=== PATIENT | female | born 1960 | race Caucasian/White ===

== ENCOUNTER 2022-11-13 10:59 | Outpatient (CLI) | payer OTHER, SELFPAY ==
[2022-11-13 13:46] LABS: Basophils Absolute Auto 0.1 K/mm3 (0.0-0.1); Basophils Percent Auto 0.6 % (0.2-1.2); Eosinophils Absolute Auto 0.2 K/mm3 (0-0.3); Eosinophils Percent Auto 2.4 % (0-4.4); Hematocrit 35.5 % (37.0-47.0); Hemoglobin 11.1 g/dL (12.0-15.0); Immature Granulocyte Absolute 0.03 K/mm3 (0.00-0.031); Immature Granulocyte Percent A 0.3 % (0-0.5); Lymphocytes Absolute Auto 1.37 K/mm3 (0.9-3.2); Lymphocytes Percent Auto 15.1 % (18.3-44.2); Mean Corpuscular HGB Conc 31.3 g/dl (32-36); Mean Corpuscular Hemoglobin 26.6 pg (26-34); Mean Corpuscular Volume 85.1 fl (80-100); Mean Platelet Volume 8.4 fl (7.4-10.4); Monocytes Absolute Auto 0.6 K/mm3 (0.1-0.6); Monocytes Percent Auto 7.1 % (2.6-8.5); Neutrophils Absolute Auto 6.8 K/mm3 (1.3-6.7); Neutrophils Percent Auto 74.5 % (45.5-73.1); Platelet Count Result 315 k/mm3 (150-375); Red Blood Count 4.17 M/mm3 (4.2-5.4); Red Cell Distribution Width 13.8 % (11.5-14.5); White Blood Count 9.1 K/mm3 (4.5-10.0)
[2022-11-13 14:02] LABS: Alanine Aminotransferase 31 U/L (6-35); Albumin Level 4.3 g/dL (3.5-5.1); Alkaline Phosphatase 53 U/L (38-126); Anion Gap 6 mmol/L (8-16); Aspartate Amino Transferase 39 U/L (14-36); Bilirubin,Total 0.6 mg/dL (0.2-1.3); Blood Urea Nitrogen 29 mg/dL (7-17); Calcium 9.3 mg/dL (8.4-10.2); Carbon Dioxide 28 mmol/L (22-30); Chloride 103 mmol/L (98-107); Estimated Glomerular Filt Rate > 60; Glucose 84 mg/dL (65-110); Potassium 4.4 mmol/L (3.4-5.0); Sodium 137 mmol/L (137-145)
[2022-11-13 14:18] LABS: Vitamin D 25 Hydroxy 51.1 ng/mL
[2022-11-13 14:24] LABS: Thyroid Stimulating Hormone 0.154 uIU/mL (0.465-4.680)
[2022-11-13 14:45] LABS: Iron 49 ug/dL (37-170)
[2022-11-13 14:54] LABS: Percent Iron Saturation 11 % (20-50)
[2022-11-13 15:22] LABS: Ferritin 9.73 ng/mL (11.1-264)
[2022-11-13 15:53] LABS: Folic Acid 5.7 ng/mL (2.76->20)
== END 2022-11-13 11:00 | disposition home or self-care (01) ==
LOC: ANHGOSHLAB 11:00
PROVIDERS: PCP Internal Medicine; Visit Provider Clinical Nurse Specialist
DX: E55.9 Vitamin D deficiency, unspecified (principal); Z13.228 Encounter for screening for other metabolic disorders; F41.9 Anxiety disorder, unspecified; D64.9 Anemia, unspecified; R79.89 Other specified abnormal findings of blood chemistry
CPT/HCPCS: 36415; 80053; 82306; 82607; 82728; 82746; 83540; 83550; 84443; 85025

== ENCOUNTER → 2022-11-13 11:14 | Outpatient (CLI) | payer OTHER, SELFPAY ==
--- NOTE | ~2022-11-13 | XR_ITS ---
EXAMINATION: XR_CERV2-3V_CR DATE: 11/13/2022 11:26 INDICATION: Neck pain. Left arm tingling. TECHNIQUE: 3 views of cervical spine were obtained. COMPARISON: None. FINDINGS: There is 6 degrees levocurvature of cervical spine. There is 2 mm retrolisthesis of C5 on C 6. Vertebral body heights are normal. There is moderately decreased disc height at C5-C6. At C5-C6, t here is severe bilateral uncovertebral joint osteoarthritis. There is multilevel mild facet joint ost eoarthritis. There is mild central canal stenosis at C5-C6. No prevertebral soft tissue swelling. IMPRESSION: 1. Moderate spondylosis at C5-C6 and mild spondylosis at other levels. Reviewed, dictated and finalized at location A.
== END ==
PROVIDERS: PCP Internal Medicine; Visit Provider Clinical Nurse Specialist
DX: R20.2 Paresthesia of skin (principal); M47.892 Other spondylosis, cervical region
CPT/HCPCS: 72040

== ENCOUNTER 2022-11-15 15:15 | Outpatient (CLI) | payer OTHER, SELFPAY ==
[2022-11-15 20:13] LABS: Free T4 Free Thyroxine 1.09 ng/mL (0.78-2.19)
[2022-11-15 20:33] LABS: Thyroid Stimulating Hormone < 0.015 uIU/mL (0.465-4.680)
== END 2022-11-15 15:16 | disposition home or self-care (01) ==
LOC: ANHGOSHLAB 15:16
PROVIDERS: PCP Internal Medicine; Visit Provider Clinical Nurse Specialist
DX: R79.89 Other specified abnormal findings of blood chemistry (principal); D64.9 Anemia, unspecified; Z13.228 Encounter for screening for other metabolic disorders
CPT/HCPCS: 36415; 84439; 84443

== ENCOUNTER 2023-01-09 14:13 | Outpatient (CLI) | payer OTHER, MEDICAID, SELFPAY ==
--- NOTE | ~2023-01-09 | XR_ITS ---
EXAMINATION: XR finger 2nd RT min 2V INDICATION: Right second finger pain, injury two months ago TECHNIQUE: Four views of the right second finger are obtained. COMPARISON: None available FINDINGS: There is an oblique intra-articular fracture at the lateral base of the second distal phala nx. The fracture involves approximately 50% of the articular surface on the PA view and spans the ent jose juan width of the bone on the lateral view. Soft tissue swelling surrounds the fracture. There is mild osteoarthritis of the interphalangeal joints. No additional fracture is identified. IMPRESSION: 1. Oblique intra-articular fracture at the lateral base of the second distal phalanx. Given reported history of injury two months ago and nonunion of the fracture, orthopedic evaluation is recommended. Reviewed, dictated and finalized at location L. IMPRESSION: 1. Oblique intra-articular fracture at the lateral base of the second distal ph alanx. Given reported history of injury two months ago and nonunion of the frac ture, orthopedic evaluation is recommended.
== END 2023-01-09 14:14 | disposition home or self-care (01) ==
LOC: ANHIMG 14:14
PROVIDERS: PCP Internal Medicine; Visit Provider Internal Medicine
DX: S62.630A Displaced fracture of distal phalanx of right index finger, initial encounter for closed fracture (principal); X58.XXXA Exposure to other specified factors, initial encounter
CPT/HCPCS: 73140

== ENCOUNTER 2023-01-29 13:58 | Outpatient (CLI) | payer OTHER, SELFPAY ==
[2023-01-29 20:17] LABS: Free T4 Free Thyroxine 0.98 ng/mL (0.78-2.19)
[2023-02-01 14:23] LABS: Thyroid Stimulating Immunoglob <89 % baseline (<140)
[2023-02-01 15:43] LABS: Thyrotropin Receptor Antibody <1.00 IU/L (<=2.00)
[2023-02-02 06:41] LABS: Thyroid Peroxidase Antibodies <1 IU/mL (<9)
== END 2023-01-29 13:59 | disposition home or self-care (01) ==
LOC: ANHGOSHLAB 13:59
PROVIDERS: PCP Internal Medicine; Visit Provider Internal Medicine
DX: R94.6 Abnormal results of thyroid function studies (principal)
CPT/HCPCS: 36415; 83519; 84439; 84443; 84445; 86376

== ENCOUNTER 2023-02-06 13:35 | Outpatient (CLI) | payer OTHER, SELFPAY ==
[2023-02-06 19:17] LABS: Basophils Absolute Auto 0.1 K/mm3 (0.0-0.1); Basophils Percent Auto 0.6 % (0.2-1.2); Eosinophils Absolute Auto 0.4 K/mm3 (0-0.3); Eosinophils Percent Auto 5.2 % (0-4.4); Hematocrit 36.4 % (37.0-47.0); Hemoglobin 11.2 g/dL (12.0-15.0); Immature Granulocyte Absolute 0.03 K/mm3 (0.00-0.031); Immature Granulocyte Percent A 0.4 % (0-0.5); Immature Reticulocyte Fraction 24.1 % (3.0-15.9); Lymphocytes Absolute Auto 1.26 K/mm3 (0.9-3.2); Lymphocytes Percent Auto 15.2 % (18.3-44.2); Mean Corpuscular HGB Conc 30.8 g/dl (32-36); Mean Corpuscular Hemoglobin 26.7 pg (26-34); Mean Corpuscular Volume 86.9 fl (80-100); Mean Platelet Volume 8.4 fl (7.4-10.4); Monocytes Absolute Auto 0.3 K/mm3 (0.1-0.6); Neutrophils Absolute Auto 6.2 K/mm3 (1.3-6.7); Neutrophils Percent Auto 74.6 % (45.5-73.1); Platelet Count Result 301 k/mm3 (150-375); Red Blood Count 4.19 M/mm3 (4.2-5.4); Red Cell Distribution Width 15.1 % (11.5-14.5); Reticulocyte Percent 3.36 % (0.7-4.3); Reticulocytes Absolute 0.14 M/mm3 (0.02-0.1); White Blood Count 8.3 K/mm3 (4.5-10.0)
[2023-02-07 00:50] LABS: Iron 48 ug/dL (37-170)
[2023-02-07 01:12] LABS: Percent Iron Saturation 11 % (20-50)
== END 2023-02-06 13:36 | disposition home or self-care (01) ==
LOC: ANHGOSHLAB 13:37
PROVIDERS: PCP Internal Medicine; Visit Provider Nurse Practitioner
DX: D64.9 Anemia, unspecified (principal)
CPT/HCPCS: 36415; 82728; 83540; 83550; 85025; 85046

== ENCOUNTER 2023-04-12 07:24 | Outpatient (CLI) | payer OTHER, MEDICAID, SELFPAY ==
--- NOTE | 2023-04-12 07:42 | ECHO_ITS ---
Patient Info Name: Leyla Vega Age: 62 years : 1960 Gender: Female Ht: 63 in Wt: 290 lbs BSA: 2.50 m2 HR: 79 bpm BP: 154 / 82 mmHg Technical Quality: Fair Exam Date: 04/12/2023 7:50 AM Exam Location: [facility] Patient Status: Outpatient Admit Date: 04/12/2023 Staff Ordering Physician: Justin Herron DO Meter Technician: Kerline De aL Garza RDCS Attending Provider: Justin Herron DO Referring Physician: Gopal BURRIS; Exam Type: CA echo dop color flow w con Study Info Indications I35.0 - Nonrheumatic aortic (valve) stenosis Complete two-dimensional, color flow and Doppler transthoracic echocardiogram is performed with contrast to opacify the left ventricle and to improve the deliniation of the left ventricle endocardial borders. Contrast/Agitated Saline Contrast/Ag. Saline: Definity Amount: 2.00 ml Administered By: Kerline De La Garza RDCS New IV Access: Outer Forearm and Left Site Condition: IV removed, Site dressing applied and No extravasation Summary 1. Definity contrast administered improved wall motion interpretation. 2. Left ventricular chamber dimension is normal. 3. Left ventricular systolic function is hyperdynamic, estimated at >70%. 4. The left ventricular diastolic function is abnormal. 5. E/e' 31 is significantly elevated. 6. Left atrial chamber dimension is mildly enlarged. 7. There is severe aortic valve sclerosis. 8. There is mild aortic valve regurgitation. 9. There is moderate aortic valve stenosis with a peak velocity of 415.98 cm/s, mean gradient of 45 mmHg, and aortic valve area of 1.23 cm2. 10. The mitral valve has moderately calcified leaflets and severely calcified annulus. 11. There is mild mitral valve stenosis with valve area of 1.6 cm2 and mean gradient of 6 mmHg. 12. There is mild to moderate mitral valve regurgitation. 13. There is trace tricuspid valve regurgitation. 14. Mild pulmonary hypertension, estimated pulmonary arterial systolic pressure is 48 mmHg. 15. There is trivial pericardial effusion. Left Ventricle E/e' 31 is significantly elevated. Definity contrast administered improved wall motion interpretation. Left ventricular chamber dimension is normal. Left ventricular systolic function is hyperdynamic, estimated at >70%. The left ventricular diastolic function is abnormal. Right Ventricle Right ventricular systolic function is normal and with normal TAPSE 2.1 cm. Right ventricular chamber dimension is normal. Left Atria Left atrial chamber dimension is mildly enlarged. Right Atria Right atrial chamber dimension is normal. Aortic Valve The aortic valve is trileaflet. There is severe aortic valve sclerosis. There is moderate aortic valve stenosis with a peak velocity of 415.98 cm/s, mean gradient of 45 mmHg, and aortic valve area of 1.23 cm2. There is mild aortic valve regurgitation. Pulmonic Valve There is no pulmonic regurgitation. Mitral Valve The mitral valve has moderately calcified leaflets and severely calcified annulus. There is mild mitral valve stenosis with valve area of 1.6 cm2 and mean gradient of 6 mmHg. There is mild to moderate mitral valve regurgitation. Tricuspid Valve There is trace tricuspid valve regurgitation. Mild pulmonary hypertension, estimated pulmonary arterial systolic pressure is 48 mmHg. Pericardium/Pleural There is trivial pericardial effusion. Inferior Vena Cava Normal inferior vena cava with >50% collapse upon inspiration consistent with normal right atrial pressure, 5 mmHg. Aorta The aortic root size at the sinus of V
--- NOTE | 2023-04-12 09:45 | IVDEFINITY ---
Prior to administration of IV Definity the patient was educated on the risks and benefits of the imaging enhancing agent including potential adverse side effects. The patient verbalized understanding. Allergies were verified. No exclusion criteria were identified and at least one of the following inclusion criteria were met: 1) physician request, 2) patient technically difficult to image (per the [place] [employer] of Echocardiography guidelines of two or more segments not discernable within the apical view), or 3) questionable left ventricular function. ?
[2023-04-12] MEDS: PERFLUTREN LIPID MICROSPHERES 1.5 ML VIAL DILUTED TO 10 ML TOTAL VOLUME IV PUSH (09:50)
== END 2023-04-12 07:25 | disposition home or self-care (01) ==
LOC: ANHCARD 07:25
PROVIDERS: PCP Internal Medicine; Visit Provider Internal Medicine Cardiovascular Disease
DX: I35.0 Nonrheumatic aortic (valve) stenosis (principal); I35.2 Nonrheumatic aortic (valve) stenosis with insufficiency; I05.2 Rheumatic mitral stenosis with insufficiency; I27.20 Pulmonary hypertension, unspecified
CPT/HCPCS: C8929; Q9957

== ENCOUNTER 2023-05-03 16:13 | Emergency (ER) | payer OTHER, MEDICAID, SELFPAY ==
[2023-05-03 16:24] VITALS: BP 157/89; PULSE 92; RESP 16; TEMP 36.3; O2SAT 98
[2023-05-03 16:25] VITALS: BP 157/89; PULSE 92; RESP 16; TEMP 36.3; O2SAT 98
--- NOTE | 2023-05-03 16:52 | ED.SKABFB ---
HPI - Skin/Abscess/Foreign Bdy General Chief complaint: Skin/Abscess/Foreign Body Stated complaint: Wound on left arm Time Seen by Provider: 05/03/23 16:44 Source: patient and RN notes reviewed Mode of arrival: ambulatory Limitations: no limitations History of Present Illness HPI narrative: Patient presents today complaining of cat scratch to her left forearm that was sustained 3 days ago by her own cat. Reports swelling, redness, and warmth to the area and believes that is infected. She has pain only when it is touched and states it is itching profusely. She has wash with soap and water, but wanted to come in for antibiotics. States she has not had a tetanus shot in 40 years because the injection is painful. Related Data Home Medications Medication Instructions Recorded Confirmed fluticasone propionate 50 2 spray intranasal BID 11/14/22 01/02/23 mcg/actuation nasal spray,suspension lamotrigine 25 mg tablet mg 05/03/23 pregabalin 75 mg capsule mg 05/03/23 Allergies Allergy/AdvReac Type Severity Reaction Status Date / Time Penicillins Allergy Unknown Unknown Verified 02/12/23 13:59 tetracycline Allergy Unknown Unknown Verified 02/12/23 13:59 amoxicillin [From Augmentin] Allergy Hives Verified 05/03/23 16:24 clavulanic acid Allergy Hives Verified 05/03/23 16:24 [From Augmentin] Review of Systems Review of Systems: CONSTITUTIONAL: Denies body aches, fever, chills, or sweats. EYES: Denies visual changes, redness, or discharge. ENT: Denies rhinorrhea, congestion, sore throat, or otalgia. CARDIOVASCULAR: Denies chest pain, palpitations, or edema. RESPIRATORY: Denies cough or dyspnea. GASTROINTESTINAL: Denies abdominal pain, nausea, vomiting, or diarrhea. GENITOURINARY: Denies dysuria or hematuria. SKIN: Denies rash, itching. + cat scratch to left forearm MUSCULOSKELETAL: Denies back pain, joint pain, or myalgia. NEUROLOGIC: Denies headache, numbness, tingling, or weakness. PSYCH: Denies depression or anxiety. [facility] Past Medical History Medical History Anemia Anxiety Cervical radiculopathy Chronic post-traumatic stress disorder (PTSD) Depression Essential hypertension Hyperlipidemia Low TSH level Lumbosacral spondylosis Moderate aortic stenosis Obesity Obstructive sleep apnea of adult Osteoarthritis Peripheral neuropathy Restless leg syndrome Thyrotoxicosis, unspecified with thyrotoxic crisis or storm Vitamin D deficiency Surgical History Surgical History H/O abdominal hysterectomy With unilateral oophorectomy H/O gastric bypass History of left knee replacement History of lumpectomy of left breast History of total right knee replacement (TKR) Hx of appendectomy 08/27/2014 Hx of cardiac cath Nonobstructive CAD by cath 10/18/2010-normal m, cx. 30% LAD/RCA (per [facility] note) Social History Social History Smoking status: Never smoker Lack of Transportation: No Lack of Food: Never True Current Housing: I Have Housing Concerned About Future Housing: YES Difficulty Paying Gas/Electric Bills: YES Difficulty Paying for Meds: YES Currently Unemployed: No Education: Bachelor's Degree Difficulty w/ Childcare or Family Care: YES Comments At time of signature, I have reviewed and agree with nursing past medical, surgical, social and family history unless otherwise noted. Please see nursing chart for further information. There is no relevant family history pertinent to the presenting complaint Exam Narrative: GENERAL: Well-appearing, well-nourished, and in no acute distress. HEAD: Normocephalic, atraumatic. EYES: EOMI. No redness or drainage. Conjunctivae normal. ENT: Mucous membranes pink and moist. NECK: Normal AROM. CHEST: No respiratory distress. EXTREMITIES:
== END 2023-05-03 17:06 | disposition home or self-care (01) ==
PROVIDERS: Emergency Provider Nurse Practitioner; PCP Internal Medicine
DX: S50.812A Abrasion of left forearm, initial encounter (principal); W55.03XA Scratched by cat, initial encounter; M54.12 Radiculopathy, cervical region; I10 Essential (primary) hypertension; E78.5 Hyperlipidemia, unspecified; M47.817 Spondylosis without myelopathy or radiculopathy, lumbosacral region; I35.0 Nonrheumatic aortic (valve) stenosis; E66.9 Obesity, unspecified; Z68.43 Body mass index [BMI] 50.0-59.9, adult; M19.90 Unspecified osteoarthritis, unspecified site; G62.9 Polyneuropathy, unspecified; E55.9 Vitamin D deficiency, unspecified; Z98.84 Bariatric surgery status; Z96.653 Presence of artificial knee joint, bilateral; F41.9 Anxiety disorder, unspecified; F32.A Depression, unspecified
CPT/HCPCS: 99213; G0463

== ENCOUNTER 2023-05-21 15:14 | Emergency (ER) | payer OTHER, MEDICAID, SELFPAY ==
--- NOTE | ~2023-05-21 | XR_ITS ---
EXAM: XR humerus LT DATE: 05/21/2023 16:05 HISTORY: PAIN LEFT BICEP, FELT TEAR WHILE LIFTING a bag of rocks . COMPARISON: None available. FINDINGS: Normal mineralization. No fracture or dislocation. No lytic or blastic lesion. Mild degene rative changes in the AC joint, glenohumeral joint, and elbow joint. No erosion or periosteal change. Suggestion of soft tissue thickening in the distal biceps in the lateral view. IMPRESSION: No acute osseous finding in the left humerus. Possible soft tissue thickening in the distal biceps, ultrasound or MRI may be helpful for further ev aluation to evaluate for biceps injury. Reviewed, dictated and finalized at location K. [facility] IMPRESSION: No acute osseous finding in the left humerus. Possible soft tissue thickening in the distal biceps, ultrasound or MRI may be helpful for further evaluation to evaluate for biceps injury.
[2023-05-21 15:23] VITALS: BP 152/87; PULSE 74; RESP 16; TEMP 35.7; O2SAT 97
--- NOTE | 2023-05-21 15:41 | ED.GENADULT ---
HPI - General Adult General Chief complaint: Extremity Injury, Upper Stated complaint: Tore bicep Time Seen by Provider: 05/21/23 15:41 Source: patient, RN notes reviewed and old records reviewed Mode of arrival: ambulatory Limitations: no limitations History of Present Illness HPI narrative: 62-year-old female presents to the [facility] with concerns for a left bicep tear. 1 hour prior to arrival she was lifting a bag of gravel when she felt ?everything tear. ? No bruising noted. Patient is rubbing the area. Stating that it is severe pain. Full range of motion of the wrist, strong blanket winder helper noted. Positive radial pulse. Sensation intact. Patient is unable or painful when trying to lift arm to flex at the elbow. If placed in flexed position patient able to hold in flexed position without issue. Pain when pressure applied to flex or extend. Onset (ago): hour(s) (1) Treatments prior to arrival: none Related Data Home Medications Medication Instructions Recorded Confirmed fluticasone propionate 50 2 spray intranasal BID 11/14/22 05/21/23 mcg/actuation nasal spray,suspension lamotrigine 25 mg tablet 25 mg PO DAILY 05/03/23 05/21/23 pregabalin 75 mg capsule 50 mg PO BID 05/03/23 05/21/23 B12 1,000 mcg PO DAILY 05/21/23 05/21/23 Biotin Hyaluric Acid 10,000 mcg PO DAILY 05/21/23 05/21/23 Iron 65 Mg W Vit C 270mg 65 mg PO DAILY 05/21/23 05/21/23 multivitamin tablet 05/21/23 Allergies Allergy/AdvReac Type Severity Reaction Status Date / Time Penicillins Allergy Unknown Unknown Verified 05/21/23 15:36 tetracycline Allergy Unknown Unknown Verified 05/21/23 15:36 amoxicillin [From Augmentin] Allergy Hives Verified 05/21/23 15:36 clavulanic acid Allergy Hives Verified 05/21/23 15:36 [From Augmentin] Review of Systems Review of Systems: All systems reviewed & are unremarkable except as noted in HPI and below Constitutional: Constitutional: Reports no additional constitutional complaints Eyes: Eyes: Reports no additional eye complaints ENT: Reports system reviewed and no additional complaints, except as documented Cardiovascular: Cardiovascular: Reports no additional cardiovascular complaints, Denies chest pain and Denies dyspnea Respiratory: Respiratory: Reports no additional respiratory complaints, Denies chest congestion, Denies cough and Denies dyspnea Gastrointestinal: Gastrointestinal: Reports no additional gastrointestinal complaints, Denies abdominal pain, Denies nausea and Denies vomiting Musculoskeletal: Musculoskeletal: Reports as per HPI Integumentary/Breasts: Skin/Breast: Reports system reviewed and no additional complaints, except as docu Neurologic: Reports system reviewed and no additional complaints, except as documented Psychiatric: Psychiatric: Reports no additional psychiatric complaints Allergic/Immunologic: Allergic/Immunologic: Reports no additional allergic/immunologic complaints PMFSH Past Medical History Medical History Anemia Anxiety Cervical radiculopathy Chronic post-traumatic stress disorder (PTSD) Depression Essential hypertension Hyperlipidemia Low TSH level Lumbosacral spondylosis Moderate aortic stenosis Obesity Obstructive sleep apnea of adult Osteoarthritis Peripheral neuropathy Restless leg syndrome Thyrotoxicosis, unspecified with thyrotoxic crisis or storm Vitamin D deficiency Surgical History Surgical History H/O abdominal hysterectomy With unilateral oophorectomy H/O gastric bypass History of left knee replacement History of lumpectomy of left breast History of total right knee replacement (TKR) Hx of appendectomy 08/27/2014 Hx of cardiac cath Nonobstructive CAD by cath 10/18/2010-normal m, cx. 30% LAD/RCA (per [facility] note) Social History Social History Smoking status: Ne
== END 2023-05-21 16:32 | disposition home or self-care (01) ==
PROVIDERS: Emergency Provider Nurse Practitioner; PCP Internal Medicine
DX: S46.212A Strain of muscle, fascia and tendon of other parts of biceps, left arm, initial encounter (principal); X50.0XXA Overexertion from strenuous movement or load, initial encounter; X50.9XXA Other and unspecified overexertion or strenuous movements or postures, initial encounter; I10 Essential (primary) hypertension; E78.5 Hyperlipidemia, unspecified; M19.90 Unspecified osteoarthritis, unspecified site; G62.9 Polyneuropathy, unspecified; G25.81 Restless legs syndrome; F41.9 Anxiety disorder, unspecified; F32.A Depression, unspecified; I35.0 Nonrheumatic aortic (valve) stenosis; Z96.653 Presence of artificial knee joint, bilateral
CPT/HCPCS: 73060; 99213; A4565; G0463

== ENCOUNTER 2023-05-24 14:38 | Outpatient (CLI) | payer OTHER, MEDICAID, SELFPAY ==
[2023-05-24 19:02] LABS: Free T4 Free Thyroxine 0.86 ng/mL (0.78-2.19)
[2023-05-24 19:11] LABS: Thyroid Stimulating Hormone 0.094 uIU/mL (0.465-4.680)
[2023-05-24 19:20] LABS: Hemoglobin A1C 4.9 % (<5.7)
== END 2023-05-24 14:39 | disposition home or self-care (01) ==
PROVIDERS: PCP Internal Medicine; Visit Provider Internal Medicine
DX: R94.6 Abnormal results of thyroid function studies (principal); E05.91 Thyrotoxicosis, unspecified with thyrotoxic crisis or storm; E11.9 Type 2 diabetes mellitus without complications; Z13.228 Encounter for screening for other metabolic disorders; D50.9 Iron deficiency anemia, unspecified
CPT/HCPCS: 36415; 82728; 83036; 84439; 84443

== ENCOUNTER 2023-07-25 11:50 | Outpatient (CLI) | payer OTHER, MEDICAID, SELFPAY ==
[2023-07-25 18:19] LABS: Basophils Absolute Auto 0.1 K/mm3 (0.0-0.1); Basophils Percent Auto 0.8 % (0.2-1.2); Eosinophils Absolute Auto 0.4 K/mm3 (0-0.3); Eosinophils Percent Auto 3.8 % (0-4.4); Hematocrit 38.9 % (37.0-47.0); Immature Granulocyte Absolute 0.03 K/mm3 (0.00-0.031); Immature Granulocyte Percent A 0.3 % (0-0.5); Lymphocytes Absolute Auto 1.78 K/mm3 (0.9-3.2); Lymphocytes Percent Auto 19.4 % (18.3-44.2); Mean Corpuscular HGB Conc 33.4 g/dl (32-36); Mean Corpuscular Volume 89.6 fl (80-100); Mean Platelet Volume 8.3 fl (7.4-10.4); Monocytes Absolute Auto 0.5 K/mm3 (0.1-0.6); Monocytes Percent Auto 5.5 % (2.6-8.5); Neutrophils Absolute Auto 6.4 K/mm3 (1.3-6.7); Neutrophils Percent Auto 70.2 % (45.5-73.1); Platelet Count Result 276 k/mm3 (150-375); Red Blood Count 4.34 M/mm3 (4.2-5.4); Red Cell Distribution Width 14.6 % (11.5-14.5); White Blood Count 9.2 K/mm3 (4.5-10.0)
[2023-07-25 19:08] LABS: Iron 86 ug/dL (37-170)
[2023-07-25 19:16] LABS: Percent Iron Saturation 23 % (20-50)
[2023-07-25 19:18] LABS: Free T4 Free Thyroxine 1.05 ng/mL (0.78-2.19)
[2023-07-25 19:26] LABS: Alanine Aminotransferase 26 U/L (6-35); Albumin Level 3.9 g/dL (3.5-5.1); Alkaline Phosphatase 57 U/L (38-126); Anion Gap 8 mmol/L (8-16); Aspartate Amino Transferase 30 U/L (14-36); Bilirubin,Total 0.5 mg/dL (0.2-1.3); Blood Urea Nitrogen 18 mg/dL (7-17); Calcium 8.8 mg/dL (8.4-10.2); Carbon Dioxide 26 mmol/L (22-30); Chloride 106 mmol/L (98-107); Cholesterol 137 mg/dL (0-200); Estimated Glomerular Filt Rate > 60; Glucose 95 mg/dL (65-110); HDL Direct 50 mg/dL; Potassium 4.1 mmol/L (3.4-5.0); Sodium 140 mmol/L (137-145); Triglycerides 98 mg/dL (<150)
[2023-07-25 19:37] LABS: LDL Cholesterol Direct 66 mg/dL
== END 2023-07-25 11:51 | disposition home or self-care (01) ==
LOC: ANHGOSHLAB 11:54
PROVIDERS: Internal Medicine; PCP Internal Medicine; Visit Provider Internal Medicine Cardiovascular Disease
DX: D50.9 Iron deficiency anemia, unspecified (principal); E78.2 Mixed hyperlipidemia; F32.A Depression, unspecified; R79.89 Other specified abnormal findings of blood chemistry
CPT/HCPCS: 36415; 80053; 80061; 83540; 83550; 84439; 84443; 85025

== ENCOUNTER 2023-12-01 16:13 | Emergency (ER) | payer OTHER, MEDICAID, SELFPAY ==
--- NOTE | ~2023-12-01 | XR_ITS ---
EXAM: XR elbow RT min 3V DATE: 12/01/2023 16:33 HISTORY: Twisted right elbow using an Auger . COMPARISON: None available. FINDINGS: Normal mineralization. No fracture or dislocation. No lytic or blastic lesion. Mild degene rative change at the elbow joint. Medial and lateral enthesopathy. No erosion or periosteal change. S oft tissues within normal limits. IMPRESSION: No acute osseous finding in the right elbow. Reviewed, dictated and finalized at location K.
--- NOTE | 2023-12-01 16:17 | ED.UPPEXIN ---
HPI - Extremity Injury (Upper) General Chief Complaint: Extremity Injury, Upper Stated Complaint: rt elbow inj Time Seen by Provider: 12/01/23 16:17 Source: patient Mode of arrival: ambulatory Limitations: no limitations History of Present Illness HPI narrative: Chris is a 63-year-old female patient presenting to the clinic today with complaints of right elbow pain after use in an auger to pull out weeds in states that the auger had a full battery and she turned the auger on and it caused her arm to twist causing pain over her elbow. Is complaining of pain with supination pronation over the proximal radius and distal humerus Related Data Home Medications Medication Instructions Recorded Confirmed lamotrigine 25 mg tablet 25 mg PO DAILY 05/03/23 11/19/23 B12 1,000 mcg PO DAILY 05/21/23 11/19/23 Biotin Hyaluric Acid 10,000 mcg PO DAILY 05/21/23 11/19/23 Iron 65 Mg W Vit C 270mg 65 mg PO DAILY 05/21/23 11/19/23 multivitamin tablet 05/21/23 11/19/23 lamotrigine 100 mg tablet 100 mg PO DAILY 11/19/23 11/19/23 Allergies Allergy/AdvReac Type Severity Reaction Status Date / Time Penicillins Allergy Unknown Unknown Verified 12/01/23 16:37 tetracycline Allergy Unknown Unknown Verified 12/01/23 16:37 amoxicillin [From Augmentin] Allergy Hives Verified 12/01/23 16:37 clavulanic acid Allergy Hives Verified 12/01/23 16:37 [From Augmentin] Review of Systems Review of Systems: Pertinent positives per HPI. Patient denies any fever, chills, rash, headache, visual changes, dizziness, cough, runny nose, sore throat, shortness of breath, chest pain, palpitations, nausea, vomiting, diarrhea, constipation, abdominal pain, or any urinary issues. [facility] Past Medical History Medical History Achilles tendinitis of left lower extremity Anemia Anxiety Cervical radiculopathy Chronic post-traumatic stress disorder (PTSD) Depression Essential hypertension Hyperlipidemia Low TSH level Lumbosacral spondylosis Moderate aortic stenosis Morbid obesity due to excess calories Obesity Obstructive sleep apnea of adult Osteoarthritis Peripheral neuropathy Restless leg syndrome Tear of biceps muscle Thyrotoxicosis, unspecified with thyrotoxic crisis or storm Vitamin D deficiency Surgical History Surgical History H/O abdominal hysterectomy With unilateral oophorectomy H/O gastric bypass History of left knee replacement History of lumpectomy of left breast History of total right knee replacement (TKR) Hx of appendectomy 08/27/2014 Hx of cardiac cath Nonobstructive CAD by cath 10/18/2010-normal m, cx. 30% LAD/RCA (per [facility] note) Social History Social History Smoking status: Never smoker Do You Feel Safe in your Home?: Yes Lack of Transportation: No Lack of Food: Never True Current Housing: I Have Housing Concerned About Future Housing: YES Difficulty Paying Gas/Electric Bills: YES Difficulty Paying for Meds: YES Currently Unemployed: No Education: Bachelor's Degree Difficulty w/ Childcare or Family Care: YES Comments At the time of my signature, I reviewed and agree with the nursing past medical, surgical, social, and family history. There is no relevant family history pertinent to the patient complaint. Exam Narrative: General: Well-developed, morbidly obese, in no apparent distress Head: Normocephalic, atraumatic. Cardio: Regular rate and rhythm, s1 and s2 normal, no murmur appreciated. Resp: Clear to auscultation bilaterally, no rhonchi, rales, wheezing or rubs. Musculoskeletal: No deformity, tender to palpation over the posterior elbow, pain with supination and pronation against resistance to the proximal radius and the distal humerus, limited range of motion due to pain, muscle strength strong and equal, pe
[2023-12-01 16:24] VITALS: BP 116/76; PULSE 86; RESP 16; TEMP 36.9; O2SAT 98
== END 2023-12-01 17:01 | disposition home or self-care (01) ==
PROVIDERS: Emergency Provider Nurse Practitioner Family; PCP Internal Medicine
DX: S53.401A Unspecified sprain of right elbow, initial encounter (principal); W27.0XXA Contact with workbench tool, initial encounter; I10 Essential (primary) hypertension; E78.5 Hyperlipidemia, unspecified; I35.0 Nonrheumatic aortic (valve) stenosis; E66.01 Morbid (severe) obesity due to excess calories; Z68.43 Body mass index [BMI] 50.0-59.9, adult; M19.90 Unspecified osteoarthritis, unspecified site; G62.9 Polyneuropathy, unspecified; G25.81 Restless legs syndrome
CPT/HCPCS: 73080; 99213; G0463

== ENCOUNTER 2023-12-14 17:47 | Emergency (ER) | payer OTHER, SELFPAY ==
[2023-12-14 17:56] VITALS: BP 144/68; PULSE 86; RESP 22; TEMP 36.6; O2SAT 100
[2023-12-14 18:02] VITALS: BP 144/68; PULSE 86; RESP 22; TEMP 36.6; O2SAT 100
--- NOTE | 2023-12-14 18:06 | ED.EXTPRO ---
HPI - Extremity Problem General Chief complaint: Extremity Problem,Nontraumatic Stated complaint: Infected Right Leg Time Seen by Provider: 12/14/23 17:58 Source: patient and RN notes reviewed Mode of arrival: ambulatory Limitations: no limitations History of Present Illness HPI Narrative: Patient presents today complaining redness, swelling, and pain to the right fallon. 3-4 days ago she tripped over a soldier light in her yd, striking her fallon on a paving [place]. She reports redness to the area with increased pain since last night. She is currently pain-free at rest, but increases with any touch to the area. She is up-to-date on her tetanus vaccine. Related Data Home Medications Medication Instructions Recorded Confirmed lamotrigine 25 mg tablet 25 mg PO DAILY 05/03/23 11/19/23 B12 1,000 mcg PO DAILY 05/21/23 11/19/23 Biotin Hyaluric Acid 10,000 mcg PO DAILY 05/21/23 11/19/23 Iron 65 Mg W Vit C 270mg 65 mg PO DAILY 05/21/23 11/19/23 multivitamin tablet 05/21/23 11/19/23 lamotrigine 100 mg tablet 100 mg PO DAILY 11/19/23 11/19/23 Allergies Allergy/AdvReac Type Severity Reaction Status Date / Time Penicillins Allergy Unknown Unknown Verified 12/14/23 17:56 tetracycline Allergy Unknown Unknown Verified 12/14/23 17:56 amoxicillin [From Augmentin] Allergy Hives Verified 12/14/23 17:56 clavulanic acid Allergy Hives Verified 12/14/23 17:56 [From Augmentin] Review of Systems Review of Systems: CONSTITUTIONAL: Denies body aches, fever, chills, or sweats. EYES: Denies visual changes, redness, or discharge. ENT: Denies rhinorrhea, congestion, sore throat, or otalgia. CARDIOVASCULAR: Denies chest pain, palpitations, or edema. RESPIRATORY: Denies cough or dyspnea. GASTROINTESTINAL: Denies abdominal pain, nausea, vomiting, or diarrhea. GENITOURINARY: Denies dysuria or hematuria. SKIN: + redness, swelling, pain to the right lower leg. MUSCULOSKELETAL: Denies back pain, joint pain, or myalgia. NEUROLOGIC: Denies headache, numbness, tingling, or weakness. PSYCH: Denies depression or anxiety. [facility] Past Medical History Medical History Achilles tendinitis of left lower extremity Anemia Anxiety Cervical radiculopathy Chronic post-traumatic stress disorder (PTSD) Depression Essential hypertension Hyperlipidemia Low TSH level Lumbosacral spondylosis Moderate aortic stenosis Morbid obesity due to excess calories Obesity Obstructive sleep apnea of adult Osteoarthritis Peripheral neuropathy Restless leg syndrome Tear of biceps muscle Thyrotoxicosis, unspecified with thyrotoxic crisis or storm Vitamin D deficiency Surgical History Surgical History H/O abdominal hysterectomy With unilateral oophorectomy H/O gastric bypass History of left knee replacement History of lumpectomy of left breast History of total right knee replacement (TKR) Hx of appendectomy 08/27/2014 Hx of cardiac cath Nonobstructive CAD by cath 10/18/2010-normal m, cx. 30% LAD/RCA (per [facility] note) Social History Social History Smoking status: Never smoker Do You Feel Safe in your Home?: Yes Lack of Transportation: No Lack of Food: Never True Current Housing: I Have Housing Concerned About Future Housing: YES Difficulty Paying Gas/Electric Bills: YES Difficulty Paying for Meds: YES Currently Unemployed: No Education: Bachelor's Degree Difficulty w/ Childcare or Family Care: YES Comments At time of signature, I have reviewed and agree with nursing past medical, surgical, social and family history unless otherwise noted. Please see nursing chart for further information. There is no relevant family history pertinent to the presenting complaint Exam Narrative: GENERAL: Well-appearing, well-nourished, and in no acute d
== END 2023-12-14 18:11 | disposition home or self-care (01) ==
PROVIDERS: Emergency Provider Nurse Practitioner; PCP Internal Medicine
DX: L03.115 Cellulitis of right lower limb (principal); I10 Essential (primary) hypertension; E78.5 Hyperlipidemia, unspecified; I35.0 Nonrheumatic aortic (valve) stenosis; E66.01 Morbid (severe) obesity due to excess calories; Z68.43 Body mass index [BMI] 50.0-59.9, adult; M19.90 Unspecified osteoarthritis, unspecified site; G62.9 Polyneuropathy, unspecified; G25.81 Restless legs syndrome; Z96.653 Presence of artificial knee joint, bilateral; Z98.84 Bariatric surgery status
CPT/HCPCS: 99213; G0463

== ENCOUNTER 2024-01-06 14:43 | Emergency (ER) | payer OTHER, MEDICAID, SELFPAY ==
--- NOTE | ~2024-01-06 | XR_ITS ---
EXAMINATION: XR chest 1V portable DATE: 01/06/2024 19:09 INDICATION: Dyspnea. TECHNIQUE: A single frontal view of the chest was obtained. COMPARISON: None. FINDINGS: There is a 6 cm mass in right mid and lower lung zones. No pleural effusion or pneumothorax . The heart size is normal. IMPRESSION: 1. 6 cm mass in right lung, which may be pneumonia or malignancy. Chest CT with contrast is recommend ed. Reviewed, dictated and finalized at location E. IMPRESSION: 1. 6 cm mass in right lung, which may be pneumonia or malignancy. Chest CT with contrast is recommended.
--- NOTE | ~2024-01-06 | CT_ITS ---
EXAMINATION:CT diagnostic chest w con DATE: 01/06/2024 20:49 INDICATION: Lung mass. Abnormal chest radiograph. TECHNIQUE: Computed tomography (CT) of the chest was performed with 75 mL Omnipaque 350 intravenous c ontrast. Automated exposure control and iterative reconstruction technique were employed. The dose-le ngth product (DLP) was 921.07 mGy-cm. COMPARISON: Chest single view 01/06/2024 FINDINGS: There are airspace opacities with air bronchograms and right lower lobe, consistent with pn eumonia. No pleural effusion. The heart size is normal. No pericardial effusion. There are calcificat ions aortic valve. There are coronary artery calcifications. No pericardial effusion. There is mild m ediastinal lymphadenopathy, likely reactive. There are gallstones in the gallbladder, which is normal in size. There are changes of gastric sleeve procedure. There are bridging endplate osteophytes at m ultiple levels in the spine, consistent with diffuse idiopathic skeletal hyperostosis (DISH). There i s mild thoracic spondylosis. IMPRESSION: 1. Right lower lobe pneumonia. 2. Mild mediastinal lymphadenopathy, likely reactive. Reviewed, dictated and finalized at location E.
[2024-01-06 14:51] VITALS: BP 137/75; PULSE 96; RESP 16; TEMP 36.7; O2SAT 100
--- NOTE | 2024-01-06 16:36 | PC.NURSE ---
Patient to desk reporting she feels as if her symptoms are indicative of a UTI. Requesting to give urine specimen. Patient wheeled to restroom without difficulty and provided with hat for specimen collection.
[2024-01-06 16:58] LABS: Appearance Urine Clear (Clear); Bacteria Urine 1+ /hpf; Bilirubin Urine Negative (Negative); Blood Urine Negative (Negative); Color Urine Yellow (Yellow); Glucose Urine UA Negative (Negative); Ketones Urine Negative (Negative); Leukocyte Esterase Ur 1+ LEU/UL (Negative); Nitrate Urine Negative (Negative); Non Pathogenic Casts 0-2; Protein Urine Trace mg/dL (Negative); RBC Urine 0-2 /hpf (0-2); Specific Grav Ur 1.025 (1.001-1.035); Squamous Epithelial Cell Urine Few /hpf (Few)
[2024-01-06 17:23] LABS: Add Urine Microscopic? YES
[2024-01-06 17:30] VITALS: BP 149/87; PULSE 100; RESP 15; O2SAT 95
[2024-01-06 18:30] VITALS: BP 128/84; PULSE 97; RESP 16; O2SAT 97
--- NOTE | 2024-01-06 18:55 | ED.GENADULT ---
HPI - General Adult General Chief complaint: Recheck/Abnormal Lab/Rx Stated complaint: low BP Time Seen by Provider: 01/06/24 17:26 Source: patient Mode of arrival: ambulatory Limitations: no limitations History of Present Illness HPI narrative: This is a 63-year-old female with PMH of anxiety, hypothyroid, KOJO, peripheral neuropathy, restless leg who presents to the ED for multiple complaints. Endorses myalgias and joint pains. Also states intermittent dizziness. She feels that she has had low blood pressure home. She also feels that her lungs are full of fluid. She thinks that all of the symptoms are from a UTI, Because she presents with weird symptoms for UTIs. endorses subjective fevers due to her temperature being 98? ensure normally runs 96. She states all of this has been going on for a couple of weeks. Related Data Home Medications Medication Instructions Recorded Confirmed lamotrigine 25 mg tablet 25 mg PO DAILY 05/03/23 12/26/23 B12 1,000 mcg PO DAILY 05/21/23 12/26/23 Biotin Hyaluric Acid 10,000 mcg PO DAILY 05/21/23 12/26/23 Iron 65 Mg W Vit C 270mg 65 mg PO DAILY 05/21/23 12/26/23 multivitamin tablet 05/21/23 12/26/23 lamotrigine 100 mg tablet 100 mg PO DAILY 11/19/23 12/26/23 Allergies Allergy/AdvReac Type Severity Reaction Status Date / Time Penicillins Allergy Unknown Unknown Verified 12/26/23 13:05 tetracycline Allergy Unknown Unknown Verified 12/26/23 13:05 amoxicillin [From Augmentin] Allergy Hives Verified 12/26/23 13:05 clavulanic acid Allergy Hives Verified 12/26/23 13:05 [From Augmentin] Review of Systems Review of Systems: All systems as dictated in HPI [facility] Past Medical History Medical History Achilles tendinitis of left lower extremity Anemia Anxiety Cervical radiculopathy Chronic post-traumatic stress disorder (PTSD) Depression Essential hypertension Hyperlipidemia Low TSH level Lumbosacral spondylosis Moderate aortic stenosis Morbid obesity due to excess calories Obesity Obstructive sleep apnea of adult Osteoarthritis Peripheral neuropathy Restless leg syndrome Tear of biceps muscle Thyrotoxicosis, unspecified with thyrotoxic crisis or storm Vitamin D deficiency Surgical History Surgical History H/O abdominal hysterectomy With unilateral oophorectomy H/O gastric bypass History of left knee replacement History of lumpectomy of left breast History of total right knee replacement (TKR) Hx of appendectomy 08/27/2014 Hx of cardiac cath Nonobstructive CAD by cath 10/18/2010-normal m, cx. 30% LAD/RCA (per [facility] note) Social History Social History Smoking status: Never smoker Do You Feel Safe in your Home?: Yes Lack of Transportation: No Lack of Food: Never True Current Housing: I Have Housing Concerned About Future Housing: YES Difficulty Paying Gas/Electric Bills: YES Difficulty Paying for Meds: YES Currently Unemployed: No Education: Bachelor's Degree Difficulty w/ Childcare or Family Care: YES Exam Narrative: GENERAL: Well-appearing, well-nourished, and in no acute distress. HEAD: Normocephalic, atraumatic. EYES: PERRLA and EOMI. ENT: Nares clear, no rhinorrhea or epistaxis. Mucous membranes moist. Oropharynx without tonsillar hypertrophy exudate or other lesions. NECK: Supple. No adenopathy or masses. CHEST: No respiratory distress. Clear to auscultation. No wheezes rales or rhonchi HEART: Regular rate and rhythm. No murmur heard. Normal peripheral pulses. ABDOMEN: negative flank tenderness bilaterally. Soft, nontender, nondistended, normal active bowel sounds. MSK: Normal range of motion. No edema. SKIN: Warm, dry, no rash. NEURO: Alert and oriented x4. No focal deficits. PSYCH: Normal mood and affect. Course Vital Sig
--- NOTE | 2024-01-06 19:08 | PC.NURSE ---
Patient ambulated to restroom independently with steady gate
--- NOTE | 2024-01-06 19:13 | PC.NURSE ---
Report received from JUANITA Cotton. Assumed care of patient at this time.
[2024-01-06 20:04] LABS: Basophils Percent Auto 0.2 % (0.2-1.2); Eosinophils Percent Auto 0.3 % (0-4.4); Hematocrit 36.3 % (37.0-47.0); Hemoglobin 12.2 g/dL (12.0-15.0); Immature Granulocyte Absolute 0.06 K/mm3 (0.00-0.031); Immature Granulocyte Percent A 0.5 % (0-0.5); Lymphocytes Percent Auto 4.6 % (18.3-44.2); Mean Corpuscular HGB Conc 33.6 g/dl (32-36); Mean Corpuscular Volume 89.4 fl (80-100); Mean Platelet Volume 8.2 fl (7.4-10.4); Monocytes Percent Auto 7.5 % (2.6-8.5); Neutrophils Absolute Auto 11.4 K/mm3 (1.3-6.7); Neutrophils Percent Auto 86.9 % (45.5-73.1); Platelet Count Result 222 k/mm3 (150-375); Red Blood Count 4.06 M/mm3 (4.2-5.4); Red Cell Distribution Width 13.8 % (11.5-14.5); White Blood Count 13.1 K/mm3 (4.5-10.0)
[2024-01-06 20:14] LABS: Alanine Aminotransferase 22 U/L (6-35); Albumin Level 4.2 g/dL (3.5-5.1); Alkaline Phosphatase 62 U/L (38-126); Anion Gap 9 mmol/L (4-12); Aspartate Amino Transferase 25 U/L (14-36); Bilirubin,Total 0.9 mg/dL (0.2-1.3); Blood Urea Nitrogen 18 mg/dL (7-17); Calcium 9.1 mg/dL (8.4-10.2); Carbon Dioxide 21 mmol/L (22-30); Chloride 106 mmol/L (98-107); Estimated CRCL calculation 95 ml/min; Estimated Glomerular Filt Rate > 60; Glucose 115 mg/dL (65-110); Potassium 4.3 mmol/L (3.4-5.0); Sodium 136 mmol/L (137-145)
--- NOTE | 2024-01-06 20:27 | PC.NURSE ---
Patient taken to CT via stretcher at this time.
--- NOTE | 2024-01-06 20:55 | PC.NURSE ---
Patient called this RN into room. Patient yelled I need something to eat! And my head is pounding! Give me lactulose or salt water or something!! This RN informed patient that I will notify the provider about her pain, but per provider order need to wait for CT results before eating or drinking anything. Patient then continued to yell, I haven't eaten since noon today! And My head hurts so bad!! This RN informed patient again that I will let the provider know. stocklayer and ERP notified.
--- NOTE | 2024-01-06 21:15 | PC.NURSE ---
2103 As this RN was checking in another patient, patient comes from behind curtain with her family member yelling at staff I need something to eat!! I have been here for over 6 hours and I haven't seen the doctor and I just want to go home!! As this RN was checking in another patient and unable to attend to patient, store worker went to speak with patient and her family member.
[2024-01-06] MEDS: levoFLOXacin 750 MG TABLET PO (21:34)
--- NOTE | 2024-01-06 21:49 | PC.NURSE ---
Pt refused any additional VS upon discharge.
== END 2024-01-06 21:49 | disposition home or self-care (01) ==
PROVIDERS: Emergency Medicine; Emergency Provider Physician Assistant; PCP Internal Medicine
DX: J18.9 Pneumonia, unspecified organism (principal); I35.0 Nonrheumatic aortic (valve) stenosis; I10 Essential (primary) hypertension; E78.5 Hyperlipidemia, unspecified; E03.9 Hypothyroidism, unspecified; E55.9 Vitamin D deficiency, unspecified; E66.01 Morbid (severe) obesity due to excess calories; Z68.43 Body mass index [BMI] 50.0-59.9, adult; G47.33 Obstructive sleep apnea (adult) (pediatric); G62.9 Polyneuropathy, unspecified; G25.81 Restless legs syndrome; F41.9 Anxiety disorder, unspecified; F32.A Depression, unspecified; F43.10 Post-traumatic stress disorder, unspecified; M19.90 Unspecified osteoarthritis, unspecified site; Z96.653 Presence of artificial knee joint, bilateral; Z98.84 Bariatric surgery status; Z90.710 Acquired absence of both cervix and uterus; Z79.899 Other long term (current) drug therapy
CPT/HCPCS: 36415; 71045; 71260; 80053; 81001; 85025; 87086; 99284; A9270; Q9967

== ENCOUNTER 2024-02-23 17:59 | Emergency (ER) | payer OTHER, MEDICAID, SELFPAY ==
[2024-02-23 18:17] VITALS: BP 126/89; PULSE 81; RESP 16; TEMP 35.8; O2SAT 100
[2024-02-23 18:18] LABS: EDUAAPPEAR Cloudy; EDUABILI 1+; EDUABLOOD 3+; EDUACOLOR1 Red; EDUAGLUCOSE Negative; EDUAKETONE Trace; EDUALEUKO 3+; EDUANITRATE Negative; EDUAPH 5.5; EDUAPROTEIN 3+
--- NOTE | 2024-02-23 18:28 | ED.GENADULT ---
HPI - General Adult General Chief complaint: Urogenital-Female Stated complaint: UTI Time Seen by Provider: 02/23/24 18:07 Source: patient, RN notes reviewed and old records reviewed Mode of arrival: ambulatory Limitations: no limitations History of Present Illness HPI narrative: 63-year-[facility] for complaint of urinary urgency and burning with urination that started last night and became significantly worse throughout the day today. Patient denies fever, incontinence, postvoid dribbling, abdominal pain, flank pain, back pain, pertinent medical history. Patient has attempted to treat at home with AZO tablets with little relief. Respirations even and nonlabored. Patient in no acute distress. Related Data Home Medications Medication Instructions Recorded Confirmed B12 1,000 mcg PO DAILY 05/21/23 02/23/24 Biotin Hyaluric Acid 10,000 mcg PO DAILY 05/21/23 02/23/24 Iron 65 Mg W Vit C 270mg 65 mg PO DAILY 05/21/23 02/23/24 multivitamin 1 tablet PO DAILY 05/21/23 02/23/24 lamotrigine 100 mg tablet 100 mg PO DAILY 02/23/24 02/23/24 lorazepam 0.5 mg tablet 0.5 mg PO PRN PRN Anxiety 02/23/24 02/23/24 valsartan 80 mg tablet 80 mg PO DAILY 02/23/24 02/23/24 Allergies Allergy/AdvReac Type Severity Reaction Status Date / Time Penicillins Allergy Unknown Unknown Verified 02/23/24 18:09 tetracycline Allergy Unknown Unknown Verified 02/23/24 18:09 amoxicillin [From Augmentin] Allergy Hives Verified 02/23/24 18:09 clavulanic acid Allergy Hives Verified 02/23/24 18:09 [From Augmentin] Review of Systems Review of Systems: All systems reviewed & are unremarkable except as noted in HPI and below Constitutional: Constitutional: Reports no additional constitutional complaints Eyes: Eyes: Reports no additional eye complaints ENT: Reports system reviewed and no additional complaints, except as documented Cardiovascular: Cardiovascular: Reports no additional cardiovascular complaints, Denies chest pain and Denies dyspnea Respiratory: Respiratory: Reports no additional respiratory complaints, Denies cough and Denies dyspnea Gastrointestinal: Gastrointestinal: Reports as per HPI and Denies abdominal pain Genitourinary: Genitourinary: Reports as per HPI, Reports urinary frequency, Denies post void dribbling, Reports nocturia, Reports dysuria, Denies flank pain, Denies urinary incontinence, Reports urinary hesitancy and Reports urinary urgency Musculoskeletal: Musculoskeletal: Reports no additional musculoskeletal complaints Neurologic: Reports system reviewed and no additional complaints, except as documented Psychiatric: Psychiatric: Reports no additional psychiatric complaints PMFSH Past Medical History Medical History Achilles tendinitis of left lower extremity Anemia Anxiety Cervical radiculopathy Chronic post-traumatic stress disorder (PTSD) Depression Essential hypertension Hyperlipidemia Low TSH level Lumbosacral spondylosis Moderate aortic stenosis Morbid obesity due to excess calories Obesity Obstructive sleep apnea of adult Osteoarthritis Peripheral neuropathy Restless leg syndrome Tear of biceps muscle Thyrotoxicosis, unspecified with thyrotoxic crisis or storm Vitamin D deficiency Surgical History Surgical History H/O abdominal hysterectomy With unilateral oophorectomy H/O gastric bypass History of left knee replacement History of lumpectomy of left breast History of total right knee replacement (TKR) Hx of appendectomy 08/27/2014 Hx of cardiac cath Nonobstructive CAD by cath 10/18/2010-normal m, cx. 30% LAD/RCA (per [facility]) Social History Social History Smoking status: Never smoker Do You Feel Safe in your Home?: Yes Lack of Transportation: No Lack of Food: Never True Curr
== END 2024-02-23 18:25 | disposition home or self-care (01) ==
PROVIDERS: Emergency Provider Nurse Practitioner Family; PCP Internal Medicine
DX: N39.0 Urinary tract infection, site not specified (principal); I10 Essential (primary) hypertension; E78.5 Hyperlipidemia, unspecified; I35.0 Nonrheumatic aortic (valve) stenosis; E66.01 Morbid (severe) obesity due to excess calories; Z68.42 Body mass index [BMI] 45.0-49.9, adult; M19.90 Unspecified osteoarthritis, unspecified site; G25.81 Restless legs syndrome; G62.9 Polyneuropathy, unspecified; F41.9 Anxiety disorder, unspecified; Z96.653 Presence of artificial knee joint, bilateral
CPT/HCPCS: 81003; 87086; 87088; 99213; G0463

== ENCOUNTER 2024-03-06 17:05 | Emergency (ER) | payer OTHER, MEDICAID, SELFPAY ==
[2024-03-06 17:39] VITALS: BP 142/79; PULSE 78; RESP 16; TEMP 36.1; O2SAT 99
[2024-03-06 18:31] LABS: EDUAAPPEAR Clear; EDUABILI Negative; EDUABLOOD 2+; EDUACOLOR1 Yellow; EDUAGLUCOSE Negative; EDUAKETONE Negative; EDUALEUKO 3+; EDUANITRATE Negative; EDUAPH 5.5; EDUAPROTEIN 2+; EDUASPGRAVITY 1.025; EDUAUROBILI 0.2
--- NOTE | 2024-03-06 19:24 | ED.GENADULT ---
HPI - General Adult General Chief complaint: Urogenital-Female Stated complaint: UTI SYMPTOMS Time Seen by Provider: 03/06/24 17:39 Source: patient, RN notes reviewed and old records reviewed Mode of arrival: ambulatory Limitations: no limitations History of Present Illness HPI narrative: 63-year-old female to [facility] for complaint of urinary urgency and urethral burning with urination for 1 day. Patient denies abdominal pain, back pain, fever, flank pain, nausea, vomiting, vaginal discharge, vaginal itching, urinary incontinence. Patient hypertensive in triage. Patient seen here February 22 and treated for urinary tract infection. Patient able to tolerate fluids by mouth. Patient is sitting comfortably in exam room in no acute distress. Respirations even and nonlabored. Related Data Home Medications Medication Instructions Recorded Confirmed B12 1,000 mcg PO DAILY 05/21/23 03/06/24 Biotin Hyaluric Acid 10,000 mcg PO DAILY 05/21/23 03/06/24 Iron 65 Mg W Vit C 270mg 65 mg PO DAILY 05/21/23 03/06/24 multivitamin 1 tablet PO DAILY 05/21/23 03/06/24 lamotrigine 100 mg tablet 100 mg PO DAILY 02/23/24 03/06/24 lorazepam 0.5 mg tablet 0.5 mg PO PRN PRN Anxiety 02/23/24 03/06/24 valsartan 80 mg tablet 80 mg PO DAILY 02/23/24 03/06/24 ascorbic acid (vitamin C) 1,000 mg 1 g PO DAILY 03/06/24 03/06/24 tablet calcium citrate 315 mg-vitamin D3 1 tablet PO DAILY 03/06/24 03/06/24 5 mcg (200 unit) tablet (Calcium Citrate + D) cetirizine 10 mg tablet (Zyrtec) 10 mg PO DAILY 03/06/24 03/06/24 docusate sodium 100 mg capsule 100 mg PO DAILY 03/06/24 03/06/24 (Colace) loratadine 10 mg tablet 10 mg PO DAILY 03/06/24 03/06/24 melatonin 10 mg capsule 10 mg PO HS PRN Sleep 03/06/24 03/06/24 pregabalin 50 mg capsule 50 mg PO BID 03/06/24 03/06/24 Allergies Allergy/AdvReac Type Severity Reaction Status Date / Time Penicillins Allergy Unknown Unknown Verified 02/23/24 18:09 tetracycline Allergy Unknown Unknown Verified 02/23/24 18:09 amoxicillin [From Augmentin] Allergy Hives Verified 02/23/24 18:09 clavulanic acid Allergy Hives Verified 02/23/24 18:09 [From Augmentin] Review of Systems Review of Systems: All systems reviewed & are unremarkable except as noted in HPI and below Constitutional: Constitutional: Reports no additional constitutional complaints Eyes: Eyes: Reports no additional eye complaints ENT: Reports system reviewed and no additional complaints, except as documented Cardiovascular: Cardiovascular: Reports no additional cardiovascular complaints, Denies chest pain and Denies dyspnea Respiratory: Respiratory: Reports no additional respiratory complaints, Denies cough and Denies dyspnea Genitourinary: Genitourinary: Reports as per HPI, Denies urinary frequency, Denies post void dribbling, Denies nocturia, Denies genital pruritis, Reports dysuria, Denies flank pain, Denies urinary incontinence, Reports urinary urgency, Denies vaginal discharge, Denies vaginal odor and Denies vaginal pruritus Musculoskeletal: Musculoskeletal: Reports no additional musculoskeletal complaints Neurologic: Reports system reviewed and no additional complaints, except as documented Psychiatric: Psychiatric: Reports no additional psychiatric complaints PMFSH Past Medical History Medical History Achilles tendinitis of left lower extremity Anemia Anxiety Cervical radiculopathy Chronic post-traumatic stress disorder (PTSD) Depression Essential hypertension Hyperlipidemia Low TSH level Lumbosacral spondylosis Moderate aortic stenosis Morbid obesity due to excess calories Obesity Obstructive sleep apnea of adult Osteoarthritis Peripheral neuropathy Restless leg syndrome Tear of biceps muscle Thyrotoxicosis, unspecified with thyrotoxic crisis or storm Vitamin D deficiency Surgical History Surgical History (Reviewed 03/06/24 @ 19:31 by Rocío Blair,
== END 2024-03-06 18:44 | disposition home or self-care (01) ==
PROVIDERS: Emergency Provider Nurse Practitioner Family; PCP Internal Medicine
DX: N39.0 Urinary tract infection, site not specified (principal); M54.32 Sciatica, left side; I10 Essential (primary) hypertension; E78.5 Hyperlipidemia, unspecified; I35.0 Nonrheumatic aortic (valve) stenosis; E66.01 Morbid (severe) obesity due to excess calories; Z68.42 Body mass index [BMI] 45.0-49.9, adult; M19.90 Unspecified osteoarthritis, unspecified site; G62.9 Polyneuropathy, unspecified; G25.81 Restless legs syndrome; E55.9 Vitamin D deficiency, unspecified; F41.9 Anxiety disorder, unspecified; Z98.84 Bariatric surgery status; Z96.653 Presence of artificial knee joint, bilateral
CPT/HCPCS: 81003; 87086; 87088; 99213; G0463

== ENCOUNTER 2024-03-07 12:35 | Outpatient (CLI) | payer OTHER, MEDICAID, SELFPAY ==
--- NOTE | 2024-03-07 12:46 | ECHO_ITS ---
Patient Info Name: Leyla Vega Age: 63 years : 1960 Gender: Female Ht: 63 in Wt: 272 lbs BSA: 2.42 m2 HR: 81 bpm BP: 136 / 85 mmHg Heart Rhythm: Sinus Rhythm Technical Quality: Fair Exam Date: 03/07/2024 12:57 PM Exam Location: Echo Lab Patient Status: Outpatient Admit Date: 03/07/2024 Staff Ordering Physician: Justin Herron DO Roll Changer: Esther De La Vega RDCS Attending Provider: Justin Herron DO Referring Physician: Gopal BURRIS; Exam Type: CA echo doppler color flow Study Info Indications I35.0 - Nonrheumatic aortic (valve) stenosis Complete two-dimensional, color flow and Doppler transthoracic echocardiogram is performed. Summary 1. Complete two-dimensional, color flow and Doppler transthoracic echocardiogram is performed. 2. Left ventricular chamber dimension is normal. 3. Left ventricular systolic function is hyperdynamic, estimated at >70%. 4. There is mild concentric increased left ventricular wall thickness. 5. The left ventricular diastolic function is abnormal. 6. E/e' 32 is significantly elevated. 7. Left atrial chamber dimension is moderately enlarged. 8. There is severe aortic valve sclerosis. 9. There is severe aortic valve stenosis with a peak velocity of 415 cm/s, mean gradient of 41 mmHg, and aortic valve area of 0.9 cm2. 10. There is trace aortic valve regurgitation. 11. The mitral valve has severely calcified annulus. 12. There is trace mitral valve regurgitation. 13. There is trace tricuspid valve regurgitation. 14. No pulmonary hypertension, estimated pulmonary arterial systolic pressure is 23 mmHg. 15. There is trace pulmonic regurgitation. Left Ventricle E/e' 32 is significantly elevated. Left ventricular chamber dimension is normal. Left ventricular systolic function is hyperdynamic, estimated at >70%. There is mild concentric increased left ventricular wall thickness. The left ventricular diastolic function is abnormal. Right Ventricle Right ventricular systolic function is normal and with normal TAPSE 2.5 cm. Right ventricular chamber dimension is normal. Left Atria Left atrial chamber dimension is moderately enlarged. Right Atria Right atrial chamber dimension is normal. Aortic Valve The aortic valve is trileaflet. There is severe aortic valve sclerosis. There is severe aortic valve stenosis with a peak velocity of 415 cm/s, mean gradient of 41 mmHg, and aortic valve area of 0.9 cm2. There is trace aortic valve regurgitation. Pulmonic Valve There is trace pulmonic regurgitation. Mitral Valve The mitral valve has severely calcified annulus. There is no mitral valve stenosis. There is trace mitral valve regurgitation. Tricuspid Valve There is trace tricuspid valve regurgitation. No pulmonary hypertension, estimated pulmonary arterial systolic pressure is 23 mmHg. Pericardium/Pleural There is no pericardial effusion. Inferior Vena Cava Normal inferior vena cava with >50% collapse upon inspiration consistent with normal right atrial pressure, 5 mmHg. Aorta The aortic root size at the sinus of Valsalva is normal. Left Ventricular Outflow Tract Name Value Normal LVOT 2D LVOT Diameter 1.9 cm LVOT Doppler LVOT Peak Gradient 10
== END 2024-03-07 12:36 | disposition home or self-care (01) ==
LOC: ANHCARD 12:35
PROVIDERS: PCP Internal Medicine; Visit Provider Internal Medicine Cardiovascular Disease
DX: I35.0 Nonrheumatic aortic (valve) stenosis (principal); I05.0 Rheumatic mitral stenosis
CPT/HCPCS: 93306

== ENCOUNTER 2024-04-28 14:41 | Outpatient (CLI) | payer OTHER, MEDICAID, SELFPAY ==
--- NOTE | ~2024-04-28 | XR_ITS ---
EXAMINATION: XR hip BI 2V w AP pelvis DATE: 04/28/2024 14:58 INDICATION: Pain in unspecified hip. TECHNIQUE: An anteroposterior view of the pelvis and 2 views of each hip were obtained. COMPARISON: None. FINDINGS: Alignment is normal. No fracture. There is mild osteoarthritis of the hips. There is severe lumbar spondylosis. IMPRESSION: 1. Mild osteoarthritis of the hips. Reviewed, dictated and finalized at location A.
== END 2024-04-28 14:42 | disposition home or self-care (01) ==
LOC: ANHIMG 14:44
PROVIDERS: PCP Internal Medicine; Visit Provider Anesthesiology Pain Medicine
DX: M46.1 Sacroiliitis, not elsewhere classified (principal); M54.2 Cervicalgia; M16.0 Bilateral primary osteoarthritis of hip
CPT/HCPCS: 73521

== ENCOUNTER 2024-05-27 14:36 | Emergency (ER) | payer OTHER, MEDICAID, SELFPAY ==
--- NOTE | ~2024-05-27 | CT_ITS ---
EXAMINATION: CT knee LT wo con DATE: 05/27/2024 15:23 INDICATION: Left knee pain TECHNIQUE: High resolution computed tomography (CT) of the left knee was performed without intravenou s contrast. Additional sagittal and coronal reconstructions were performed. Automated exposure contro l and iterative reconstruction technique were employed. The dose-length product was 550.73 mGy-cm. COMPARISON: Left knee radiographs dated 05/19/2024 FINDINGS: Left total knee arthroplasty with patellar resurfacing which appears well seated in near-anatomic ali gnment with no periprosthetic lucency to suggest loosening or infection. No fracture. No knee joint e ffusion. Sagittal oriented postoperative scarring anterior to the knee. Soft tissues are otherwise un remarkable. IMPRESSION: 1. Expected appearance of a left total knee arthroplasty. No knee joint effusion or acute osseous abn ormality. Reviewed, dictated and finalized at location B. AGE DEPOT WORKER IMPRESSION: 1. Expected appearance of a left total knee arthroplasty. No knee joint effusio n or acute osseous abnormality.
--- NOTE | ~2024-05-27 | US_ITS ---
EXAMINATION: US venous doppler [facility] DATE: 05/27/2024 16:13 INDICATION: Left lower limb pain and swelling TECHNIQUE: Grayscale ultrasound images without and with compression and Doppler ultrasound images of the left lower extremity veins were obtained. COMPARISON: None. FINDINGS: The visualized portions of left common femoral vein, profunda (deep) femoral vein, femoral vein, popl iteal vein, peroneal veins, posterior tibial veins, gastrocnemius vein and greater saphenous vein out flow are patent. IMPRESSION: 1. No deep venous thrombosis in the left lower limb. Reviewed, dictated and finalized at location B. OR MAINTENANCE MECHANIC
[2024-05-27 14:46] VITALS: BP 115/60; PULSE 88; RESP 16; TEMP 36.4; O2SAT 98
--- NOTE | 2024-05-27 14:50 | ED.LOWEXIN ---
HPI - Extremity Injury (Lower) General Chief Complaint: Extremity Injury, Lower Stated Complaint: L knee pain after fall 3 weeks ago Time Seen by Provider: 05/27/24 14:50 Focused HPI: This is a 63 year old female that presents to the ER for left knee pain. Ongoing over the last couple of weeks. Reports swelling to the area. She tripped and fell and landed on her knee. Had an x-ray that was without acute findings. Denies numbness. GENERAL: Well-appearing, well-nourished, and in no acute distress. HEAD: Normocephalic, atraumatic. CHEST: Clear to auscultation. ?No respiratory distress. HEART: Regular rate and rhythm.? NEURO: ?Alert and oriented x3. Patient screened in triage and initial orders placed.? ?Additional care and disposition to be based upon?diagnostic testing and treatment. Related Data Home Medications Medication Instructions Recorded Confirmed B12 1,000 mcg PO DAILY 05/21/23 05/25/24 Biotin Hyaluric Acid 10,000 mcg PO DAILY 05/21/23 05/25/24 Iron 65 Mg W Vit C 270mg 65 mg PO DAILY 05/21/23 05/25/24 multivitamin 1 tablet PO DAILY 05/21/23 05/25/24 lamotrigine 100 mg tablet 100 mg PO DAILY 02/23/24 05/25/24 lorazepam 0.5 mg tablet 0.5 mg PO PRN PRN Anxiety 02/23/24 05/25/24 valsartan 80 mg tablet 80 mg PO DAILY 02/23/24 05/25/24 ascorbic acid (vitamin C) 1,000 mg 1 g PO DAILY 03/06/24 05/25/24 tablet calcium 315 mg (as 1 tablet PO DAILY 03/06/24 05/25/24 citrate)-vitamin D3 5 mcg (200 unit) tablet (Calcium Citrate + D) cetirizine 10 mg tablet (Zyrtec) 10 mg PO DAILY 03/06/24 05/25/24 docusate sodium 100 mg capsule 100 mg PO DAILY 03/06/24 05/25/24 (Colace) loratadine 10 mg tablet 10 mg PO DAILY 03/06/24 05/25/24 melatonin 10 mg capsule 10 mg PO HS PRN Sleep 03/06/24 05/25/24 Allergies Allergy/AdvReac Type Severity Reaction Status Date / Time Penicillins Allergy Unknown Unknown Verified 05/27/24 14:37 tetracycline Allergy Unknown Unknown Verified 05/27/24 14:37 amoxicillin [From Augmentin] Allergy Hives Verified 05/27/24 14:37 clavulanic acid Allergy Hives Verified 05/27/24 14:37 [From Augmentin] Review of Systems Review of Systems: All systems reviewed & are unremarkable except as noted in HPI and below Constitutional: Constitutional: Denies fever(s) Musculoskeletal: Musculoskeletal: Reports arthralgias Neurologic: Denies numbness and Denies weakness PMFSH Past Medical History Medical History Achilles tendinitis of left lower extremity Anemia Anxiety Cervical radiculopathy Chronic post-traumatic stress disorder (PTSD) Depression Dorsalgia Essential hypertension Hyperlipidemia Low TSH level Lumbosacral spondylosis Moderate aortic stenosis Morbid obesity due to excess calories Obesity Obstructive sleep apnea of adult Osteoarthritis Peripheral neuropathy Restless leg syndrome Tear of biceps muscle Thyrotoxicosis, unspecified with thyrotoxic crisis or storm Vitamin D deficiency Surgical History Surgical History H/O abdominal hysterectomy With unilateral oophorectomy H/O gastric bypass History of left knee replacement History of lumpectomy of left breast History of total right knee replacement (TKR) Hx of appendectomy 08/27/2014 Hx of cardiac cath Nonobstructive CAD by cath 10/18/2010-normal m, cx. 30% LAD/RCA (per [facility] note) Social History Social History Smoking status: Never smoker Do You Feel Safe in your Home?: Yes Lack of Transportation: No Lack of Food: Never True Current Housing: I Have Housing Concerned About Future Housing: YES Difficulty Paying Gas/Electric Bills: YES Difficulty Paying for Meds: YES Currently Unemployed: No Education: Bachelor's Degree Difficulty w/ Childcare or Family Care: YES Exam Const: General: healthy appearing and no acute distress Nutritional Appearance: well nourished Skin: General skin exam: normal color Rashes: no rashes Extrem: General: normal to inspection and no pedal edema Other: No erythema. Normal DP pulse Course Course Emergency Course: patient updated on her workup and agrees with plan of care Vital Signs Vital signs: Vital Signs Temperature 97.6 F 05/27/24 14:46 Pulse Rate 88 05/27/24 14:46 Respiratory Rate 16 05/27/24 14:46 Blood Pressure 115/60 05/27/24 14:46 Pulse Oximetry 98 05/27/24 14:46 Oxygen Delivery Room Air 05/27/24 14:46 Temperature 97.6 F 05/27/24 14:46 Pulse Rate 88 05/27/24 14:46 Respiratory Rate 16 05/27/24 14:46 Blood Pressure 115/60 05/27/24 14:46 Pulse Oximetry 98 05/27/24 14:46 Oxygen Delivery Room Air 05/27/24 14:46 MDM - Extremity Injury (Lower) MDM Narrative Medical decision making narrative: Patient presents to the ER for left knee pain after an injury a couple of weeks ago. She is neurovascularly intact. Left knee x-ray was performed outpatient which showed no acute findings. CT scan obtained for further evaluation which is also without acute findings. Left lower extremity venous doppler without evidence of DVT. She is to follow up with orthopedics for further evaluation. She was given warnings to return to the ER Differential Diagnosis Differential diagnosis: Likely acute internal derangement of knee and other (DVT, sunita-prosthetic fracture) Imaging Data Radiologist's impression: ITS Impressions Knee CT 05/27/24 15:26 IMPRESSION: 1. Expected appearance of a left total knee arthroplasty. No knee joint effusion or acute osseous abnormality. Venous Doppler Study 05/27/24 16:14 IMPRESSION: 1. No deep venous thrombosis in the left lower limb. Critical Care Time Critical Care Time Critical Care Time: No Discharge Plan Discharge Clinical Impression: Acute pain of left knee Patient Disposition: Home, Self-Care Condition: Stable Instructions: Knee Pain (ED) Additional Instructions: Return to the ER if you experience fever, redness and swelling of your leg, numbness, or any other symptoms that are concerning to you Rest. Ice to the area. Over the counter pain medication as needed Follow up with orthopedics for further care Prescriptions: No Action B12 1,000 mcg PO DAILY multivitamin [Multi-Vitamin] Tablet 1 tablet PO DAILY Biotin Hyaluric Acid 10,000 mcg PO DAILY Iron 65 Mg W Vit C 270mg 65 mg PO DAILY ascorbic acid (vitamin C) 1,000 mg Tablet 1 g PO DAILY cetirizine [Zyrtec] 10 mg Tablet 10 mg PO DAILY docusate sodium [Colace] 100 mg Capsule 100 mg PO DAILY loratadine 10 mg Tablet 10 mg PO DAILY calcium citrate-vitamin D3 [Calcium Citrate + D] 315 mg-5 mcg (200 unit) Tablet 1 tablet PO DAILY melatonin 10 mg Capsule 10 mg PO HS PRN (Reason: Sleep) valsartan 80 mg tablet 80 mg PO DAILY lorazepam 0.5 mg tablet 0.5 mg PO PRN PRN (Reason: Anxiety) lamotrigine 100 mg tablet 100 mg PO DAILY bupropion HCl [Wellbutrin SR] 100 mg tablet sustained-release 12 hr 100 mg PO BID Qty: 180 1RF duloxetine 60 mg capsule,delayed release(DR/EC) 60 mg PO DAILY Qty: 90 1RF fluticasone propionate 50 mcg/actuation spray,suspension 2 spray intranasal BID Qty: 16 0RF Rx Instructions: administer into each nostril atorvastatin 80 mg tablet 80 mg PO QHS Qty: 90 1RF phentermine 37.5 mg capsule 37.5 mg PO QAM Qty: 30 2RF Rx Instructions: must administer 30 minutes before or 1-2 hours after breakfast pregabalin 50 mg capsule 50 mg PO BID Qty: 180 0RF topiramate [Topamax] 100 mg tablet 100 mg PO DAILY Qty: 30 2RF Rx Instructions: 1 tablet q.a.m. with phentermine. begin after finishing the lower dose topiramate prescription omeprazole 40 mg capsule,delayed release(DR/EC) 40 mg PO DAILY Qty: 90 1RF Follow-up/Referrals: Salo Coulter MD [Physician] - Pacheco Mejia DO [Primary Care Provider] -
[2024-05-27 16:40] VITALS: BP 153/86; PULSE 89; RESP 20; O2SAT 97
== END 2024-05-27 16:41 | disposition home or self-care (01) ==
PROVIDERS: Emergency Provider Physician Assistant; PCP Internal Medicine
DX: M25.562 Pain in left knee (principal); M79.89 Other specified soft tissue disorders; D64.9 Anemia, unspecified; F41.9 Anxiety disorder, unspecified; F32.A Depression, unspecified; I10 Essential (primary) hypertension; E66.01 Morbid (severe) obesity due to excess calories; Z68.42 Body mass index [BMI] 45.0-49.9, adult; M19.90 Unspecified osteoarthritis, unspecified site; G25.81 Restless legs syndrome
CPT/HCPCS: 73700; 93971; 99284

== ENCOUNTER 2024-06-24 15:16 | Outpatient (CLI) | payer OTHER, MEDICAID, SELFPAY ==
[2024-06-24 20:30] LABS: Iron 84 ug/dL (37-170)
[2024-06-24 20:33] LABS: Alanine Aminotransferase 38 U/L (6-35); Albumin Level 4.1 g/dL (3.5-5.1); Alkaline Phosphatase 60 U/L (38-126); Anion Gap 4 mmol/L (4-12); Aspartate Amino Transferase 45 U/L (14-36); Bilirubin,Total 0.6 mg/dL (0.2-1.3); Blood Urea Nitrogen 27 mg/dL (7-17); Calcium 9.2 mg/dL (8.4-10.2); Carbon Dioxide 29 mmol/L (22-30); Chloride 107 mmol/L (98-107); Estimated Glomerular Filt Rate > 60; Glucose 76 mg/dL (65-110); Potassium 4.5 mmol/L (3.4-5.0); Sodium 140 mmol/L (137-145)
[2024-06-24 20:38] LABS: Basophils Absolute Auto 0.1 K/mm3 (0.0-0.1); Basophils Percent Auto 0.6 % (0.2-1.2); Eosinophils Absolute Auto 0.3 K/mm3 (0-0.3); Eosinophils Percent Auto 2.2 % (0-4.4); Hematocrit 41.2 % (37.0-47.0); Hemoglobin 13.4 g/dL (12.0-15.0); Immature Granulocyte Absolute 0.05 K/mm3 (0.00-0.031); Immature Granulocyte Percent A 0.4 % (0-0.5); Lymphocytes Absolute Auto 1.37 K/mm3 (0.9-3.2); Lymphocytes Percent Auto 12.3 % (18.3-44.2); Mean Corpuscular HGB Conc 32.5 g/dl (32-36); Mean Corpuscular Hemoglobin 30.8 pg (26-34); Mean Corpuscular Volume 94.7 fl (80-100); Mean Platelet Volume 8.5 fl (7.4-10.4); Monocytes Absolute Auto 0.7 K/mm3 (0.1-0.6); Monocytes Percent Auto 6.4 % (2.6-8.5); Neutrophils Absolute Auto 8.7 K/mm3 (1.3-6.7); Neutrophils Percent Auto 78.1 % (45.5-73.1); Platelet Count Result 261 k/mm3 (150-375); Red Blood Count 4.35 M/mm3 (4.2-5.4); Red Cell Distribution Width 13.7 % (11.5-14.5); White Blood Count 11.2 K/mm3 (4.5-10.0)
[2024-06-24 20:50] LABS: Percent Iron Saturation 23 % (20-50)
[2024-06-24 21:02] LABS: Hemoglobin A1C 4.8 % (<5.7)
[2024-06-24 21:51] LABS: Vitamin D 25 Hydroxy 49.1 ng/mL
== END 2024-06-24 15:17 | disposition home or self-care (01) ==
LOC: ANHGOSHLAB 15:18
PROVIDERS: PCP Internal Medicine; Visit Provider Nurse Practitioner
DX: D50.9 Iron deficiency anemia, unspecified (principal); I10 Essential (primary) hypertension; E78.2 Mixed hyperlipidemia; E55.9 Vitamin D deficiency, unspecified; Z13.228 Encounter for screening for other metabolic disorders; E66.9 Obesity, unspecified; R73.9 Hyperglycemia, unspecified
CPT/HCPCS: 36415; 80053; 82306; 82728; 83036; 83540; 83550; 85025

== ENCOUNTER 2024-07-29 12:21 | Outpatient (CLI) | payer OTHER, MEDICAID, SELFPAY ==
--- NOTE | ~2024-07-29 | MR_ITS ---
EXAMINATION: MR hip LT wo con DATE: 07/29/2024 13:34 INDICATION: Left hip pain post fall TECHNIQUE: Magnetic resonance imaging (MRI) of the left hip was performed without intravenous contra st. Sequences included full-field axial PD-weighted FS FSE and T1-weighted FSE, coronal of the pelvis with PD-weighted FS FSE, T2-weighted FSE and T1-weighted FSE, small field of view of the left hip w ith axial PD-weighted FS FSE, sagittal PD-weighted FS FSE, coronal PD-weighted FS FSE and coronal T2 weighted FSE. Additional radial T1-weighted FGR oriented orthogonal to the acetabular rim were obtai hosea for evaluation of the labrum. COMPARISON: Pelvis and hip radiographs dated 04/28/2024 FINDINGS: Bones/labrum/cartilage: Alignment is normal. There is diffuse red marrow reexpansion in the pelvis and visualized lumbar spin e. No fracture, avascular necrosis or pathologic marrow replacing process. There is a tear of the 1:0 0-12:00 position of the superior left acetabular labrum. Partial-thickness chondral ulceration and fi ssuring which appears to involve less than 50% the cartilage thickness and without degenerative subch ondral changes along the anterosuperior to superolateral left acetabulum. Fluid: Symmetric physiologic amount of fluid within both hip joints. Soft tissues: Normal and symmetric muscle bulk and signal in the pelvis and visualized proximal thighs. The iliopso as, gluteal and proximal hamstring tendons are normal. The uterus is not identified and has likely be en surgically resected. Limited evaluation of visceral organs of the pelvis is otherwise unremarka ble. No pathologically enlarged pelvic/inguinal lymphadenopathy. IMPRESSION: 1. Mild left hip osteoarthritis with small tear of the superolateral left acetabular labrum. Reviewed, dictated and finalized at location B. CING COORDINATOR IMPRESSION: 1. Mild left hip osteoarthritis with small tear of the superolateral left aceta bular labrum.
--- NOTE | ~2024-07-29 | MR_ITS ---
EXAMINATION: MR lumbar spine wo con DATE: 07/29/2024 13:15 INDICATION: Radiculopathy, lumbosacral region. TECHNIQUE: Magnetic resonance imaging (MRI) of the lumbar spine was performed without intravenous con trast. Sequences included sagittal T2-weighted FSE, sagittal T2-weighted FS FSE, sagittal T1-weighted FSE, and axial T2-weighted FSE. COMPARISON: None FINDINGS: There is 3 degrees levocurvature of lumbar spine. There are chronic bilateral L5 pars defec ts. There is 4 mm retrolisthesis of L4 on L5 and 4 mm anterolisthesis of L5 on S1. There is mild laundry operator abraham height loss of L5 vertebral body posteriorly. There is mild chronic anterior wedging of T10 and T 11 vertebral bodies. There is moderately decreased disc height at L2-L3, L3-L4, and L4-L5. The distal spinal cord signal intensity is normal. The conus medullaris is at T12-L1. The following disc levels are specifically discussed: L1-L2: The disc is bulging. There is mild bilateral facet joint osteoarthritis. There is mild bilater al neural foraminal stenosis. There is mild central canal stenosis. L2-L3: The disc is bulging. There is moderate bilateral facet joint osteoarthritis. There is mild alex ateral neural foraminal stenosis. There is mild central canal stenosis. L3-L4: The disc is bulging with superimposed central extrusion. There is mild right and moderate left facet joint osteoarthritis. There is mild bilateral neural foraminal stenosis. There is mild central canal stenosis. L4-L5: The disc is bulging with superimposed central extrusion. There is mild bilateral facet joint o steoarthritis. There is moderate bilateral neural foraminal stenosis. There is mild central canal randall nosis. L5-S1: The disc is bulging. There is moderate bilateral facet joint osteoarthritis. There is mild alex ateral neural foraminal stenosis. There is mild central canal stenosis. IMPRESSION: 1. Chronic bilateral L5 pars defects with grade 1 anterolisthesis of L5 on S1. 2. Moderate lumbar spondylosis. Reviewed, dictated and finalized at location A. NSED SOCIAL WORKER
== END 2024-07-29 12:22 | disposition home or self-care (01) ==
LOC: ANHIMG 12:22
PROVIDERS: PCP Internal Medicine; Visit Provider Anesthesiology Pain Medicine
DX: M16.12 Unilateral primary osteoarthritis, left hip (principal); M47.27 Other spondylosis with radiculopathy, lumbosacral region
CPT/HCPCS: 72148; 73721

== ENCOUNTER 2024-09-15 13:32 | Outpatient (CLI) | payer OTHER, MEDICAID, SELFPAY | END 2024-09-15 13:33 | disposition home or self-care (01) | PROVIDERS: PCP Internal Medicine; Visit Provider Internal Medicine Cardiovascular Disease | DX: I35.0 Nonrheumatic aortic (valve) stenosis (principal); I35.8 Other nonrheumatic aortic valve disorders; I08.0 Rheumatic disorders of both mitral and aortic valves | CPT/HCPCS: 93306 ==

== ENCOUNTER 2024-09-30 07:12 | Day surgery (SDC) | payer OTHER, MEDICAID, SELFPAY ==
[2024-09-09 10:58] VITALS: BMI 49.1
--- NOTE | ~2024-09-30 | XR_ITS ---
XR fluoroscopy no charge Indication: Diagnostic left C5, C6 and C7 medial branch block TECHNIQUE: Fluoroscopy used during Diagnostic left C5, C6 and C7 medial branch block performed by Dr Sanchez [Rajan Trammell MD] on 09/30/2024. 72 seconds of fluoroscopy with 26 fluoroscopic images captured. FINDINGS: Correlate with procedure note. IMPRESSION: Fluoroscopy used during Diagnostic left C5, C6 and C7 medial branch block. Reviewed, dictated and finalized at location B.
--- OUTSIDE RECORDS SUMMARY | 2024-09-30 07:31 | XMS_ITS | Continuity of Care Document ---
Author Name [facility] Address [address] [place] [address] Organization [facility] Care Team Providers Care Mortgage Processing Clerk Name Role Phone [facility] Unavailable Unavailable Problems Problem Status Onset [...] Resolved Condition Acute cystitis (disorder) Active Condition Open wound of cheek (disorder) Diagnosis Exposure to potentially harmful entity (event) Diagnosis Active movement, function (observable entity) Diagnosis Place of occurrence of accident or poisoning (environment) Diagnosis Injury due to exposure to external cause (disorder) Diagnosis Essential hypertension (disorder) Diagnosis Unspecified open wound of left cheek and temporomandibular area, initial encounter Active Diagnosis Screening for Malignant Neoplasms of Colon Active Diagnosis Epigastric pain Active Diagnosis Instability of internal left knee prosthesis, initial encounter Active Diagnosis Major depressive disorder, recurrent severe without psychotic features Diagnosis Bariatric surgery status Diagnosis Pain in Limb Active Diagnosis Osteoarthrosis, Localized, Not Specified Whether Primary [...] history of alcohol abuse and dependence Diagnosis Allergies, Adverse Reactions, Alerts Substance Category [...] Patient LIONEL JOSHI Gender Female Name [facility] Number [id number] Date of Study 10/07/2018 Attending Physician Marcell Perez MD Visit [id number] Shoeblack See [place], [facility] Number Date of 1960 Interpreting Andrew Edward [...] Root: 2.88 cm LVOT Diameter: 1.77 cm CD:[email or web address] URL Echo Transthoracic Complete Transthoraci c Echocardiography Report (TTE) Demographics Patient Name LIONEL JOSHI Gender Female [facility] Number [id number] Date of Study 01/11/2017 Referring Physician Visit Number [id number] Shoeblack Anthony Vallejo Date of 1960 Interpreting [place] [...] Provider ADM Date DC Date Status Source [facility] Between Visit [id number] 05/16 23:59 :59 Discharg ed [facility] Between Visit [id number] 04/02 23:59 :59 Discharg ed [facility] Family [facility] MOO MOO CLAUDIA OUTPATIENT [id number] R HAND 5TH MC FX Ravinder Toedebusch [facility] OUTPAT[facility] [id number] RT HAND FX 1WK FU Ravinder To[place]ch [facility] M[facility] MOO [facility] OUTPATIENT [id number] CAST CHANGE-TO O TIGHT [facility] OUTPATIENT [id number] 4WK F/U Zihao Casillas [facility] [id number] 4WK F/U [facility] OUTPATIENT [id number] annual check up Lavern Xavier Cancel [facility] Blue [facility] OUTPATIENT [id number] MSWL PER DR. DARIEL Finch Cancel [facility] FBL [facility] OUTPATIENT [id number] 2 MO F/U Lavern Kolker C[facility] OUTPATIENT [id number] fu Lavern Kolker [facility] [id number] 2 [place] F/U Lavern Kolker [facility] OUTPATIENT [id number] MSWL PER DR. DARIEL Molina Josette Cancel [facility] OUTPATIENT [id number] F/U MSWL Tracy Josette C[facility] FBL [facility] NO TECHBILL [id number] [phone] - 3 MONTH F/U Lavern Kolker C[facility] DIAGNOSTIC TEST [id number] LANE pre-op John Paul Viera Cancel [facility] FGL FGL OUTPATIENT [id number] 6-8 WEEK F/U [facility] OUTPATIENT [id number] MEDS MAKING PT DIZZY [facility] OUTPATIENT [id number] medicatio n titration Cancel [facility] OUTPATIENT [id number] cold symptoms Brionna Tomer C[facility] OUTPATIENT [id number] CLASS: 1 MO 04/20/15 Rajan Rodriguez Cancel [facility] OUTPATIENT [id number] CLASS: 3 MO 04/20/15 Rajan Rodriguez Cancel [facility] OUTPATIENT [id number] CLASS: 1 MO 04/20/15 Rajan Rodriguez Cancel [facility] OUTPATIENT [id number] CONSULT LARGE MONS PUBIS-POS S INS See Karen Cancel [facility] MOO MOO CLAUDIA OUTPATIENT [id number] PRE DOS 01/13 FLIP CLAUDIA L KNEE Juan Carlos Danielson [facility] OUTPATIENT [id number] wouned infected Guy Kwok C[facility] DIAGNOSTIC TEST [id number] right proximal hamstring tendon tear Mohammad Arian Cancel [facility] THERAPY SERIES [id number] John Paul Viera Cancel [facility] DIAGNOSTIC TEST [id number] right proximal hamstring tendon tear Sid Don [facility] OUTPATIENT [id number] SOV: 3 OF 3(MEDICAR E) John Paul Viera Cancel [facility] OUTPATIENT [id number] SOV: 3 OF 3(MEDICAR E) John Paul Stephensller Cancel [facility] OUTPATIENT [id number] CLASS: YEARLY RYGB 04/20/15 Gonzales Medina Cancel [facility] DIAGNOSTIC TEST [id number] OSTEOARTH RITIS/ RIGHT KNEE PAIN Kyle Valentine 05/08 15:38 :23 Cancel [facility] OUTPATIENT [id number] 1 YEAR F/U Jacob Flip [facility] DIAGNOSTIC TEST [id number] Olimpia Huizar Cancel [facility] FPA FPA NO TECHBILL [id number] consultat ion Nyla Gov-Jake Cancel [facility] DIAGNOSTIC TEST [id number] arm paresthes ia Boris Moore Cancel [facility] FGR FGR OUTPATIENT [id number] whole-danielle nt based diet, per Dr. Gurwinder Goncalves-Erika unek Cancel [facility] FPG FPG OUTPATIENT [id number] six wks 09/04 16:08 :[address] [facility] OUTPATIENT [id number] 6WK FOLLOW UP LT KNEE REV Jacob Flip [facility] OUTPATIENT [id number] CLASS: YEARLY RYGB 04/20/15 Cancel [facility] MOO MOO CLAUDIA OUTPATIENT [id number] 1 YEAR F/U Jacob Castelan [facility]ancel [facility] [place] OUT[place] [id number] MOLE REMOVAL, ADHESION INJ Bre Wong Cancel [facility] [facility] OUTPATIENT [id number] 2 WK F/U PER PT Cancel [facility] F[facility] FGL OUTPATIENT [id number] CHECK SURGICAL WOUND Cancel [facility] Med Gold MOO MOO CLAUDIA DIAGNOSTIC TESTING [id number] left leg anterior swelling Rowdy Bryant [facility] F[facility] NO TECHBILL [id number] BHC Cancel [facility] OUTPATIENT [id number] Possible UTI and mole removal (2) Cancel [facility] OUTPATIENT [id number] UTI Alma Xiomara [facility] [id number] UTI Alma Xiomara [facility] [place] [id number] GENERAL EYE EXAM Enrike Rivera [facility] OUTPATIENT [id number] er f/u Nyla Gov-Jake Cancel [facility] [place] OUTPATIENT [id number] 6 HYOERTROP HIC SCAR Nidhi Jennings Cancel [facility]
--- OUTSIDE RECORDS SUMMARY | 2024-09-30 07:31 | XMS_ITS | Clinical Summary ---
Author Organization [facility] Elaine Cunha Address [address] [place] [address] Care Team Providers Care Guest Services Representative Name Role Phone GlynnPacheco michelle Ravinder BILLS Primary Care Provider Allergies Active Allergy Reactions Criticality Noted Date Comments Penicillins Hives,Rash,Shortness of Breath/Wheezing High 07/09/2018 Tetracyclines Other (See Comments) Low 07/09/2018 Makes her teeth hurt TOOTHACHE Medications atorvastatin (LIPITOR) 80 mg tablet Take 80 mg by mouth daily at bedtime. 3 Active buPROPion HCL (WELLBUTRIN SR) 100 mg Sustained Release 12 hour tablet Take 100 mg by mouth 2 times daily. Active Cetirizine 10 mg Capsule Take 10 mg by mouth daily. Active cyanocobalamin 1,000 mcg Tablet Take 1,000 mcg by mouth daily. Active DULoxetine (CYMBALTA) 60 mg Capsule, Delayed Release(E.C.) Take 60 mg by mouth daily at bedtime. Active fluticasone propionate (FLONASE) 50 mcg/spray [place], Suspension nasal inhaler USE 2 SPRAY(S) IN EACH NOSTRIL TWICE DAILY Active iron,carbonyl-v itamin C 65 mg iron- 125 mg Tablet, Delayed Release (E.C.) Take by mouth. Active Calcium Citrate-Vitamin D3 200 mg-3.125 mcg (125 unit) Tablet Take 4 Tablets by mouth daily at bedtime. Active losartan (COZAAR) 25 mg tablet Take 25 mg by mouth daily. 3 Active melatonin 10 mg Tablet 10 mg daily at bedtime. Active omeprazole (PriLOSEC) 40 mg Capsule, Delayed Release(E.C.) Take 40 mg by mouth daily. 3 Active pregabalin (LYRICA) 75 mg Capsule TAKE 1 CAPSULE BY MOUTH EVERY 12 HOURS TOLERATED. (DO NOT DISCONTINUE WITHOUT CALLING PRESCRIBER) 3 Active Active Problems No known active problems Encounters Date Type Department Care Team Description 08/07/2024 External Device Data STL ABSTRACTION Provider, Abstract from Last 3 Months Family History Medical History Relation Name Comments Heart Disease Brother 1 Heart Disease Mother Relation Name Status Comments Brother 1 Alive Brother 2 Alive Brother 3 Alive Father Mother Sister Alive Social History Tobacco Use Types Packs/Day Years Used Date Smoking Tobacco: Never Smokeless Tobacco: Never Alcohol Use Standard Drinks/Week Comments Never 0 (1 standard drink = 0.6 oz pur e alcohol) Comments Unknown Sex and Gender Information Value Date Recorded Sex Assigned at Not on file Legal Sex Female 9:09 AM CDT Gender Identity Not on file Sexual Orientation Not on file Last Filed Vital Signs Vital Sign Reading Time Taken Comments Blood Pressure 129/70 05/30/2023 10:21 AM [facility] Pulse 93 05/30/2023 10:21 AM [facility] Temperature 35.7 C (96.2 F) 05/30/2023 10:21 AM [facility] Respiratory Rate 12 05/30/2023 10:21 AM [facility] Oxygen Saturation 96% 05/30/2023 10:21 AM [facility] Inhaled Oxygen Concentration - - Weight 134.3 kg (296 lb) 05/30/2023 10:21 AM [facility] Height 160 cm (5' 3 ) 05/30/2023 10:21 AM [facility] Body Mass Index 52.43 05/30/2023 10:21 AM [facility] Plan of Treatment Health Maintenance Due Date Last Done Comments DTAP/TDAP/TD VACCINES (1 - Tdap) 1981 CERVICAL CANCER SCREENING 1992 BREAST CANCER SCREENING 2002 COLORECTAL SCREENING 10/25/2007 Colorectal Cancer Screening 10/25/2007 FIT-DNA Q 3 years 10/25/2007 FIT/FOBT Q 1 year 10/25/2007 Flex Sig/CT Colonography Q 5 years 10/25/2007 ZOSTER VACCINE (1 of 2) 2012 INFLUENZA VACCINE (#1) 2024 RSV VACCINE (60+ or ) (1 - 1-dose 75+ series) 2037 PNEUMOCOCCAL VACCINE 0-49 YEARS Aged Out No longer eligible based on patient's age to complete this topic Insurance [facility] MEDICAID [place] Care Teams Guest Services Representative Relationship Specialty Start Date End Date Pacheco Mejia DO [address] [place] [address] PCP - General Internal Medicine 02/16/23
--- OUTSIDE RECORDS SUMMARY | 2024-09-30 07:31 | XMS_ITS ---
Author Organization [facility] As [facility] Address [address] [address] Care Team Providers Care Arc Air Operator Name Role Phone Pacheco Mejia DO Primary Care Provider Lakisha Sultana Unavailable [phone] Berkley Barnhart Unavailable [phone] REASON FOR VISIT checked in, anxiety, depression, trauma, panic attacks Medications Medication SIG (Take, Route, Frequency, Duration) Notes Start Date End Date Status LORazepam 0.5 MG 0.5 tablet Orally Once a day prn As needed 06/03/2024 Active buPROPion HCl ER (SR) 100 MG 1 tablet Oral twice a day for 90 days Active DULoxetine HCl 60 MG 1 capsule Oral Once a day for 90 days Active lamoTRIgine 100 MG 1 tablet at bedtime Oral Once a day for 90 days Active Valsartan 80 MG Oral 11/19/2023 Act huang Atorvastatin Calcium 80 MG Oral 11/19/2023 Active Omeprazole 40 MG Oral 11/19/2023 Ac tive Pregabalin 50 MG Oral 11/19/2023 Ac tive Fluticasone Propionate Diskus 50 MCG/ACT Inhalation *Reorder from [employer] for eRx and Interaction Alerts* 11/19/2023 Active Topiramate 100 MG Oral 11/19/2023 A ctive Phentermine HCl 37.5 MG Oral 11/19/2023 Active Social History Tobacco Use: Social History Observation Description Date Details (start date - stop date) Never Smoker NA - NA Sex Assigned At : Social History Observation Description Sex Assigned At Female Tobacco Control (Standard) Question Answer Notes Tobacco use: Nonsmoker AUDIT-C (Standard) Question Answer Notes Did you have a drink contain ing alcohol in the past year? Yes How often did you have six o r more drinks on one occasion in the past year? Never (0 point) How many drinks did you have on a typical day when you were drinking in the past year? 1 or 2 drinks (0 point) How often did you have a dri nk containing alcohol in the past year? Monthly or less (1 point) Section Notes: Social History Substance UseDo you or have you ever smoked tobacco?: Never smokerHow much tobacco do you smoke?: NoneDo you or have you ever used e-cigarettes or vape?: Never used electronic cigarettesWhat was the date of your most recent tobacco screening?: 11/19/2023Has tobacco cessation counseling been provided?: NoWhat is your level of alcohol consumption?: OccasionalHow many years have you consumed alcohol?: 20Have you ever been counseled for unhealthy alcohol use?: NoDo you use any illicit or recreational drugs?: NoWhich illicit or recreational drugs have you used?: pot once or twice, but the last time was over 20 years agoHave you used IV drugs?: NoWhat is your level of caffeine consumption?: OccasionalEducation and OccupationWhat is the highest grade or level of school you have completed or the highest degree you have received?: Bachelor's degree (e.g., BA, AB, BS)Are you currently employed?: NoWho is your employer?: disabled / retiredMarriage and SexualityWhat is your relationship status?: MarriedAre you sexually active?: NoDo you use protection during sex?: NoHow many children do you have?: 0Home and EnvironmentAre there any guns present in your home?: NoAdvance DirectiveDo you have an advance directive?: NoDo you have a medical power of trade mark attorney?: NoPublic Health and TravelHave you been to an area known to be high risk for COVID-19?: NoGender Identity and LGBTQ IdentityGender identity: Identifies as FemaleAssigned sex at : FemaleSexual orientation: Straight or heterosexual Encounters Encounter Location Date Provider Diagnosis [facility] [employer] [facility] [address] [address] 09/01/2024 Berkley Barnhart Generalized anxiety disorder F41.1 ; 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 She is worried that disability and Medicare programs will be discontinued and she and will end up homeless. Therapist actively listened to client and asked questions for clarification. Therapist then utilized a cognitive behavioral internvention to explore strategies to limit exposure to news and strategies to channel hr anxiety in healthy ways. PHQ=20 severe ROBYN=21 severe Plan Of Treatment Next Appt Details Follow Up: 2 Weeks, Reason: therapy follow up Provider Name:Berkley Barnhart , 10/02/2024 03:00:00 PM, [facility], [address], [address], Provider Name:Berkley Barnhart , 10/20/2024 01:00:00 PM, [facility], [address], [address], Provider Name:Lakisha medrano, 10/20/2024 02:45:00 PM, [facility], [address], [address], Provider Name:Berkley Barnhart , 11/03/2024 04:00:00 PM, [address], [address], [address], Provider Name:Berkley Barnhart , 11/17/2024 01:00:00 PM, [address], [address], [address], Progress Notes * ADI FLOWERS MDOB: 3 (63 yo F)Acc No.[id number]:09/01/2024 Patient: ADI DAVEY Provider: Michael BARNHART LCSW :1960 A ge:63 Y S ex:Female Date:09/01/2024 Address:[facility] [place] [address] Pcp:Pacheco Mejia DO Data: * Time Tracker: * Date Start Time End Time Duration User Type Captured By Mode Notes 09/01/2024 02:00 PM 02:56 PM 00:56:00 Therapist Berkley Barnhart anual * Chief Complaints: * 1 . Checked in. 2. Anxiety. 3. Depression. 4. Trauma. 5. Panic attacks. * HPI: F unctional Status: Client is here today for psychotherapy to treat anxiety, depression, trauma, and panic issues. Based on our session, I think the patient is making moderate progress. At this time I do not recommend changes to the treatment plan. I do not think the patient poses significant risk of harm to self or others at this time. Discussed continued treatment with patient. D epression Screening: ROBYN-7 (2018 Edition) F eeling nervous, anxious, or on edge?Nearly every day, N ot being able to stop or control worrying N early every day, W orrying too much about different things N early every day, T rouble relaxing N early every day, B eing so restless that it is hard to sit still N early every day, B ecoming easily annoyed or irritable N early every day, F eeling afraid as if something awful might happen N early every day, T otal ROBYN-7 Score 2 1, I f you checked any problems, how difficult have they made it for you to do your work, take care of things at home, or get along with other people? E xtremely difficult, I nterpretation of Total ( 15 and over) Severe. C [place]-Suicide Severity Rating Scale: Suicide Risk (CSRS-screener) i n the past one month Have you wished you were or wished you could go to sleep and not wake up? N o, i n the past one month Have you actually had any thoughts of killing yourself? N o, H ave you ever done anything, started to do anything, or prepared to do anything to end your life? N o. D epression screening: PHQ-9 L ittle interest or pleasure in doing things M ore than half the days, F eeling down, depressed, or hopeless N early every day, T rouble falling or staying asleep, or sleeping too much N early every day, F eeling tired or having little energy N early every day, P oor appetite or overeating N early every day, F eeling bad about yourself or that you are a failure, or have let yourself or your family down N ot at all, T rouble concentrating on things, such as reading the newspaper or watching television?Nearly every day, M oving or speaking so slowly that other people could have noticed; or the opposite, being so fidgety or restless that you have been moving around a lot more than usual?Nearly every day, T houghts that you would be better off or of hurting yourself in some way N ot at all, T otal Score 2 0, I nterpretation S evere Depression. I ntervention D epression Screening Findings P ositve, F ollow-Up for Depression M ental health treatment assessment, Patient follow-up to return when and if necessary, S uicide Risk Assessment Performed 0 09/01/2024 Client denies plan or intent to harm herself. CSRS, A dditional Evaluation for Depression P sychiatric interview and evaluation, N zacarias of the standardized tool used for adult depression screening: P atient Health Questionnaire (PHQ-9). * Behavioral History: P ast psychiatric Hospitalization:Yes. W hen and where was the last admission?:2019. H istory of suicidal attempt?:Yes. T ype of previous suicidal attempt:Overdose. * Family History: P aternal Grandfather: Alcohol abuse . P aternal Grandmother: Alcohol abuse . M aternal Grandfather: Alcohol abuse . M aternal Grandmother: Alcohol abuse . B rother: Alcohol abuse, Notes: sober , Anxiety disorder , Depressive disorder , Substance abuse, Notes: pot-quit . * Social History: T obacco Use: T obacco Control (Standard) T obacco use: N onsmoker. M igrated Social History: M igrated Social History: Alcohol Intake: Occasional 04/05/2023,Tobacco Years: Never smoker 04/05/2023. D rug/Alcohol: A DEANNA-C (Standard) D id you have a drink containing alcohol in the past year? Y es,?How often did you have six or more drinks on one occasion in the past year? N ever (0 point), H ow many drinks did you have on a typical day when you were drinking in the past year? 1 or 2 drinks (0 point), H ow often did you have a drink containing alcohol in the past year??Monthly or less (1 point). S ocial History Substance UseDo you or have you ever smoked tobacco?: Never smokerHow much tobacco do you smoke?: NoneDo you or have you ever used e-cigarettes or vape?: Never used electronic cigarettesWhat was the date of your most recent tobacco screening?: 11/19/2023Has tobacco cessation counseling been provided?: NoWhat is your level of alcohol consumption?: OccasionalHow many years have you consumed alcohol?: 20Have you ever been counseled for unhealthy alcohol use?: NoDo you use any illicit or recreational drugs?: NoWhich illicit or recreational drugs have you used?: pot once or twice, but the last time was over 20 years agoHave you used IV drugs?: NoWhat is your level of caffeine consumption?: OccasionalEducation and OccupationWhat is the highest grade or level of school you have completed or the highest degree you have received?: Bachelor's degree (e.g., BA, AB, BS)Are you currently employed?: NoWho is your employer?: disabled / retiredMarriage and SexualityWhat is your relationship status?: MarriedAre you sexually active?: NoDo you use protection during sex?: NoHow many children do you have?: 0Home and EnvironmentAre there any guns present in your home?: NoAdvance DirectiveDo you have an advance directive?: NoDo you have a medical power of trade mark attorney?: NoPublic Health and TravelHave you been to an area known to be high risk for COVID-19?: NoGender Identity and LGBTQ IdentityGender identity: Identifies as FemaleAssigned sex at : FemaleSexual orientation: Straight or heterosexual. * Medications: T aking Phentermine HCl 37.5 MG Capsule Oral , Taking Atorvastatin Calcium 80 MG Tablet Oral , Taking Topiramate 100 MG Tablet Oral , Taking Fluticasone Propionate Diskus 50 MCG/ACT Aerosol Powder Breath Activated Inhalation , Notes to Pharmacist: *Reorder from [facility] for eRx and Interaction Alerts*, Taking Pregabalin 50 MG Capsule Oral , Taking Omeprazole 40 MG Capsule Delayed Release Oral , Taking Valsartan 80 MG Tablet Oral , Taking lamoTRIgine 100 MG Tablet 1 tablet at bedtime Oral Once a day , Taking DULoxetine HCl 60 MG Capsule Delayed Release Particles 1 capsule Oral Once a day , Taking buPROPion HCl ER (SR) 100 MG Tablet Extended Release 12 Hour 1 tablet Oral twice a day , Taking LORazepam 0.5 MG Tablet 0.5 tablet Orally Once a day prn As needed, Medication List reviewed and reconciled with the patient * Examination: P sychiatry: C lient is casually groomed and oriented X 3. Assessment: * Assessment: 1. G eneralized anxiety disorder - F41.1 (Primary) 2 . M ild recurrent major depression - F33.0 3 . C hronic posttraumatic stress disorder - F43.12 ? 4 . P anic attacks - F41.0 Plan: * Treatment: * Procedure Codes: 9 0837 PSYCHOTHERAPY W/PATIENT 60 MINUTES, 74517 BEHAV ASSMT W/SCORE & DOCD/STAND INSTRUMENT, G8431 CLIN DEPRESSION SCREEN DOC * Follow Up: 2 Weeks (Reason: therapy follow up) * Billing Information: * Visit Code: * Procedure Codes: 11206 PSYCHOTHERAPY W/PATIENT 60 MINUTES. 13552 BEHAV ASSMT W/SCORE & DOCD/STAND INSTRUMENT. G8431 CLIN DEPRESSION SCREEN DOC. * IDENTIAL SUPPORT SPECIALIST Sign off status: Completed Signatures: No Ad Hoc Signature Added true * Provider: Michael BARNHART LCSW Date: 0 09/01/2024 Generated for Irma sweeney/Geronimo/Tigist on: 09/30/2024 07:31 AM CDT History and Physical Notes * HPI (History of Present Illness) Category Sub-Category Detail Notes Category Not es Depression screening PHQ-9 Little inte rest or pleasure in doing things: More than half the days Feeling down, depressed, or hopeless: Ne lexy every day Trouble falling or staying asleep, or sl eeping too much: Nearly every day Feeling tired or having little energy: N early every day Poor appetite or overeating: Nearly ever y day Feeling bad about yourself o r that you are a failure, or have let yourself or your family down: Not at all Trouble concentrating on thi ngs, such as reading the newspaper or watching television: Nearly every day Moving or speaking so slowly that other people could have noticed; or the opposite, being so fidgety or restless that you have been moving around a lot more than usual: Nearly every day Thoughts that you would be b denise off or of hurting yourself in some way: Not at all Total Score: 20 Interpretation: Severe Depression Intervention Depression Screening Findings: P oscandelario Follow-Up for Depression: [facility] treatment assessment, Patient follow-up to return when and if necessary Suicide Risk Assessment Performed: 09/01 Client denies plan or intent to harm herself. CSRS Additional Evaluation for De pression: Psychiatric interview and evaluation Name of the standardized too l used for adult depression screening:: Patient Health Questionnaire (PHQ-9) Depression Screening ROBYN-7 (2018 Edition) Feelin g nervous, anxious, or on edge: Nearly every day Not being able to stop or control worryi ng: Nearly every day Worrying too much about different things : Nearly every day Trouble relaxing: Nearly every day Being so restless that it is hard to sit still: Nearly every day Becoming easily annoyed or irritable: Ne lexy every day Feeling afraid as if something awful hector ht happen: Nearly every day Total ROBYN-7 Score: 21 If you checked any problems, how difficult have they made it for you to do your work, take care of things at home, or get along with other people?: Extremely difficult Interpretation of Total: (15 and over) S lucas [place]-Suicide Severity Rating Scale Suicide Risk (CSRS-screener) in the past one month Have you wished you were or wished you could go to sleep and not wake up?: No in the past one month Have y ou actually had any thoughts of killing yourself?: No Have you ever done anything, started to do anything, or prepared to do anything to end your life?: No Examination Category Sub-Category Detail Notes Category Not es Psychiatry Client is casua lly groomed and oriented X 3
--- OUTSIDE RECORDS SUMMARY | 2024-09-30 07:31 | XMS_ITS | CONTINUITY OF CARE DOCUMENT ---
Author Name harry mcdonald Address Unknown Organization [facility] Address [address] [place] [address] [place] [address] Phone [phone] Care Team Providers Care Mobile Home Technician Name Role Phone Melanie Carter MD Unavailable [phone] Melanie Carter MD Unavailable [phone] INSURANCE PROVIDERS Payer name Policy type / Coverage type [place] red green party ID [id number] Other
--- OUTSIDE RECORDS SUMMARY | 2024-09-30 07:31 | XMS_ITS ---
Author Organization [facility] As [employer] Address [address] [address] Care Team Providers Care Carcass Splitter Name Role Phone Pacheco Mejia DO Primary Care Provider Lakisha Sultana Unavailable [phone] Berkley Barnhart Unavailable [phone] REASON FOR VISIT checked in, depression, anxiety, trauma, panic attacks Medications Medication SIG (Take, Route, Frequency, Duration) Notes Start Date End Date Status Valsartan 80 MG Oral 11/19/2023 Act huang lamoTRIgine 100 MG 1 tablet at bedtime Oral Once a day for 90 days Active DULoxetine HCl 60 MG 1 capsule Oral Once a day for 90 days Active buPROPion HCl ER (SR) 100 MG 1 tablet Oral twice a day for 90 days Active LORazepam 0.5 MG 0.5 tablet Orally Once a day prn As needed 06/03/2024 Active Omeprazole 40 MG Oral 11/19/2023 Ac tive Atorvastatin Calcium 80 MG Oral 11/19/2023 Active Topiramate 100 MG Oral 11/19/2023 A ctive Fluticasone Propionate Diskus 50 MCG/ACT Inhalation *Reorder from [employer] for eRx and Interaction Alerts* 11/19/2023 Active Pregabalin 50 MG Oral 11/19/2023 Ac tive Phentermine HCl 37.5 MG Oral 11/19/2023 Active [...] NoDo you have a medical power of prosecuting attorney?: NoPublic Health and TravelHave you been to an area known to be high risk for COVID-19?: NoGender Identity and LGBTQ IdentityGender identity: Identifies as FemaleAssigned sex at : FemaleSexual orientation: Straight or heterosexual Encounters Encounter Location Date Provider Diagnosis [facility] [address] [address] 08/19/2024 Berkley Barnhart 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 It concerns her that she may end up losing Medicare or Medicaid benefits and she is to have heart surgery this year. Therapist actively listened to client and utilized a cognitive behavioral intervention to help client explore strategies to reduce her anxieties (ex: pick one or two political topics to follow and let the rest go, call her cariologist and see about getting her appointments moved up). PHQ=21 severe ROBYN=21 severe Plan Of Treatment Next Appt Details Follow Up: 2 Weeks, Reason: therapy follow up Provider Name:Berkley Barnhart , 10/02/2024 03:00:00 PM, [facility] [facility], [address], [address], Provider Name:Berkley Barnhart , 10/20/2024 01:00:00 PM, [facility], [address], [address], Provider Name:Lakisha medrano, 10/20/2024 02:45:00 PM, [facility], [address], [address], Provider Name:Berkley Barnhart , 11/03/2024 04:00:00 PM, [facility], [address], [address], Provider Name:Berkley Barnhart , 11/17/2024 01:00:00 PM, [facility], [address], [address], Progress Notes * ADI FLOWERS MDOB: 3 (63 yo F)Acc No.[id number]:08/19/2024 Patient: ADI DAVEY Provider: Michael BARNHART LCSW :1960 A ge:63 Y S ex:Female Date:08/19/2024 Address:[address] [place] [address] Pcp:Pacheco Mejia DO Data: * Time Tracker: * Date Start Time End Time Duration User Type Captured By Mode Notes 08/19/2024 12:58 PM 01:56 PM 00:58:00 Therapist Berkley Barnhart anual * Chief Complaints: * 1 . Checked in. 2. Depression. 3. Anxiety. 4. Trauma. 5. Panic attacks. * HPI: [...] been moving around a lot more than usual?More than half the days, T houghts that you would be better off or of hurting yourself in some way N ot at all, T otal Score 2 1, I nterpretation S evere Depression.?Intervention D epression Screening Findings P ositve, F ollow-Up for Depression [facility] treatment assessment, Patient follow-up to return when and if necessary, S uicide Risk Assessment Performed 0 08/19/2024 Client denies plan or intent to harm herself., A dditional Evaluation for Depression P sychiatric interview and evaluation, N zacarias of the standardized tool used for adult depression screening: [facility] (PHQ-9). * Behavioral History: P [...] NoDo you have a medical power of prosecuting attorney?: NoPublic Health and TravelHave you been [...] Inhalation , Notes to Pharmacist: *Reorder from [facility] for eRx and Interaction Alerts*, Taking [...] and reconciled with the patient * Examination: G eneral Examination: C lient is casually groomed and oriented X 3. Assessment: * Assessment: 1. M ild recurrent major depression - F33.0 (Primary) 2 . G eneralized anxiety disorder - F41.1 3 . C hronic posttraumatic stress disorder - F43.12 ? 4 . P anic attacks - F41.0 Plan: * Treatment: * Procedure Codes: 9 0837 PSYCHOTHERAPY W/PATIENT 60 MINUTES, 70643 BEHAV ASSMT W/SCORE & DOCD/STAND INSTRUMENT * Follow Up: 2 Weeks (Reason: therapy follow up) * Billing Information: * Visit Code: * Procedure Codes: 91379 PSYCHOTHERAPY W/PATIENT 60 MINUTES. 84865 BEHAV ASSMT W/SCORE & DOCD/STAND INSTRUMENT. * CTOR SUPPLIER QUALITY Sign off status: Completed Signatures: No Ad Hoc Signature Added true * Provider: Michael BARNHART LCSW Date: 0 08/19/2024 Generated for Irma sweeney/Geronimo/Tigist on: 09/30/2024 07:31 [...] moving around a lot more than usual: More than half the days Thoughts that you would be b denise off or of hurting yourself in some way: Not at all Total Score: 21 Interpretation: Severe Depression Intervention Depression Screening Findings: P suzie Follow-Up for Depression: [facility] treatment assessment, Patient follow-up to return when and if necessary Suicide Risk Assessment Performed: 08/19 Client denies plan or intent to harm herself. Additional Evaluation for De pression: Psychiatric interview and evaluation Name of the standardized too l used for adult depression screening:: Patient Health Questionnaire (PHQ-9) Functional Status Client is here today for psychotherapy to treat anxiety, depression, trauma, and panic issues. Based on our session, I think the patient is making moderate progress. At this time I do not recommend changes to the treatment plan. I do not think the patient poses significant risk of harm to self or others at this time. Discussed continued treatment with patient. Depression Screening ORBYN-7 (2018 Edition) Feeling nervous, anxious, or on edge: Nearly every [...] of Total: (15 and over) S lucas [place]-Suicide Severity Rating Scale Suicide Risk (CSRS-screener) in [...] Category Sub-Category Detail Notes Category Not es General Examination Client i s casually groomed and oriented X 3
--- OUTSIDE RECORDS SUMMARY | 2024-09-30 07:31 | XMS_ITS | Referral Summary ---
Author Organization [facility] Address [address] [place] [address] Phone Care Team Providers Care Armor Reconnaissance Vehicle Crewman Name Role Phone Pacheco Mejia DO Primary Care Provider [phone]- [phone] Encounters Date Type Department Care Team Description 09/24/2024 Telephone [facility] Medical [facility] Cardiology [address] [place] [address] Salomon Sargent MD from Last 3 Months Allergies Active Allergy Reactions Criticality Noted Date Comments Amoxicillin-Pot Clavulanate Hives,Shortn ess of breath,Rash High 01/24/2023 Penicillins Hives,Rash Medium Tetracyclines Other (See comments) Low TOOTHACHE Medications atorvastatin (LIPITOR) 80 mg tablet Take 1 tablet (80 mg total) by mouth nightly 3 Active fluticasone propionate (FLONASE) 50 mcg/actuation nasal spray USE 2 SPRAY(S) IN EACH NOSTRIL TWICE DAILY Active losartan (COZAAR) 25 mg tablet Take 1 tablet (25 mg total) by mouth daily 3 Active omeprazole (PriLOSEC) 40 mg capsule Take 1 capsule (40 mg total) by mouth daily 3 Active pregabalin (LYRICA) 75 mg capsule TAKE 1 CAPSULE BY MOUTH EVERY 12 HOURS TOLERATED. (DO NOT DISCONTINUE WITHOUT CALLING PRESCRIBER) 3 Active buPROPion SR (WELLBUTRIN SR) 100 mg 12 hr tablet Take 1 tablet (100 mg total) by mouth 2 (two) times a day Active cetirizine 10 mg capsule Take 10 mg by mouth daily Active docusate sodium (COLACE) 100 mg capsuleIndication s:constipation Take 1 capsule (100 mg total) by mouth daily Active iron,carbonyl-vit mello C 65 mg iron- 125 mg tablet,delayed release (DR/EC) Take by mouth Active Bifidobacterium animalis 6 mg (5 billion cell) capsule Take by mouth daily Active cyanocobalamin (Vitamin B-12) 1,000 mcg tabletIndications :Prevention of Vitamin B12 Deficiency Take 1 tablet (1,000 mcg total) by mouth daily Active DULoxetine DR (CYMBALTA) 60 mg capsule Take 1 capsule (60 mg total) by mouth nightly Active melatonin 10 mg tablet 1 tablet (10 mg total) nightly Active loratadine (CLARITIN) 5 mg chewable tablet Take 1 tablet (5 mg total) by mouth nightly Active multivit-min/iron /folic acid/K (BARIATRIC MULTIVITAMINS ORAL) Take by mouth nightly Active calcium citrate-vitamin D3 200 mg-3.125 mcg (125 unit) tablet Take 4 tablets by mouth nightly Active Active Problems Problem Noted Date Diagnosed Date Allergic rhinitis 01/24/2023 Anemia 01/24/2023 Anxiety 01/24/2023 Arthritis 01/24/2023 Heart murmur 01/24/2023 Heart valve disease 01/24/2023 Hypertension 01/24/2023 Obesity 01/24/2023 Peripheral neuropathy 01/24/2023 Chronic post-traumatic stress disorder (PTSD) Immunizations Immunization Administration Dates Next Due Influenza, Trivalent, Preser vative Free, Intramuscular 05/22/2022(Deferred: Other) Pneumococcal Polysaccharide PPV23 05/13/2021 Social History Tobacco Use Types Packs/Day Years Used Date Smoking Tobacco: Never Tobacco Cessation:Counseling Given: Not Answered AUDIT-C Answer Date Recorded Q1: How often do you have a drink containing alc ohol? 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 ADVISOR Gender Identity Female 01/25/2023 3:47 PM CDT Sexual Orientation Not on file Occupation Industry Job Start Date Job End Date DISABLED Not on file Not on file Not on file Last Filed Vital Signs Vital Sign Reading Time Taken Comments Blood Pressure - - Pulse - - Temperature - - Respiratory Rate - - Oxygen Saturation - - Inhaled Oxygen Concentration - - Weight 133.8 kg (295 lb) 01/24/2023 2:21 PM CDT Height 160 cm (5' 3 ) 01/24/2023 2:21 PM CDT Body Mass Index 52.26 01/24/2023 2:21 PM CDT Plan of Treatment Not on file Insurance [employer] [facility] Care Teams Armor Reconnaissance Vehicle Crewman Relationship Specialty Start Date End Date Pacheco Mejia DO PCP - General Internal Medicine 01/22/23
--- OUTSIDE RECORDS SUMMARY | 2024-09-30 07:31 | XMS_ITS | Clinical Summary ---
Author Organization [facility] Address [address] [place] [id number] Phone Care Team Providers Care Corporate Strategist Name Role Phone Pacheco Mejia DO Primary Care Provider +1- [phone] Allergies Active Allergy Reactions Criticality Noted Date [...] neuropathy 01/24/2023 Chronic post-traumatic stress disorder (PTSD) Encounters Date Type Department Care Team Description 09/24/2024 Telephone [facility] Medical [facility] Cardiology [address] [place] [address] Salomon Sargent MD from Last 3 Months Immunizations Immunization Administration Dates Next Due Influenza, Trivalent, Preser vative Free, Intramuscular 05/22/2022(Deferred: Other) Pneumococcal Polysaccharide PPV23 05/13/2021 Surgical History Surgery Date Site/Laterality Comments SKIN LESION EXCISION 10/04/2016 SUBQ LESION FROM MONS PUBIS KNEE SURGERY 12/10/2015 Left LAPAROSCOPY GASTRECTOMY PARTIAL / TOTAL 04/20/2015 LAPAROSCOPIC SLEEVE GASTRECTOMY LAPAROSCOPIC APPENDECTOMY 08/27/2014 WITH LYSIS OF OMENTAL ADHESIONS REPLACEMENT TOTAL KNEE 07/14/2013 Right PRE-MALIGNANT / BENIGN SKIN LESION EXCISION 07/15/2012 SEBORRHEIC KERATOSIS CARDIAC CATHETERIZATION 07/16/2010 - 07/15/2011 NO STENT COMBINED HYSTERECTOMY ABDOMINAL W/ A&P REPAIR / OOPHORECTOMY BREAST CYST EXCISION Left REPLACEMENT TOTAL KNEE Left Medical History Medical History Date Comments Anemia Anxiety Arthritis Heart murmur Heart valve disease Hypercholesteremia Hypertension Peripheral neuropathy FEET Obesity Pneumonia Allergic rhinitis Sleep apnea, obstructive Urinary tract infection Chronic post-traumatic stress disorder (PTSD) Family History Medical History Relation Name Comments Alcohol abuse Brother Gout Brother Lung disease Brother Alcohol abuse Maternal Grandfather Cancer Maternal Grandfather Alcohol abuse Maternal Grandmother Arthritis Maternal Grandmother Stroke Maternal Grandmother Heart disease Mother Hypertension Mother Relation Name Status Comments Brother Maternal Grandfather Alive Maternal Grandmother Alive Mother Social History Tobacco Use Types Packs/Day Years [...] on file Legal Sex Female 3:02 PM POSTDOCTORAL FELLOW Gender Identity Female 01/25/2023 3:47 PM CDT Sexual Orientation Not on file Occupation Industry Job Start Date Job End Date DISABLED Not on file Not on file Not on file Obstetrics History Last Filed Vital Signs Vital Sign Reading Time Taken Comments Blood Pressure - - Pulse - - Temperature - - Respiratory Rate - - Oxygen Saturation - - Inhaled Oxygen Concentration - - Weight 133.8 kg (295 lb) 01/24/2023 2:21 PM CDT Height 160 cm (5' 3 ) 01/24/2023 2:21 PM CDT Body Mass Index 52.26 01/24/2023 2:21 PM CDT Plan of Treatment Health Maintenance Due Date Last Done Comments Breast Cancer Screening-Mammogram 1960 Cervical Cancer Screening 1960 Colon Cancer Screening-Colonoscopy 1960 Depression Screening 1960 Hepatitis C Screening 1960 DTaP/Tdap/Td Vaccine (1 - Tdap) 1973 Hepatitis B Screening 1980 Regular Well Visit/Exam 18-64 1980 Zoster Vaccine (1 of 2) 2012 Covid-19 Vaccine ( - 2023-2 5 season) 2024 05/13/2021, 10/14/2020, 09/16/2020 Influenza Vaccine (#1) 2024 Pneumococcal vaccine <65 Aged Out 05/13/2021 No longer eligible based on patient's age to complete this topic Insurance [facility] [facility] Care Teams Corporate Strategist Relationship Specialty Start Date End Date Pacheco Mejia DO PCP - General Internal Medicine 01/22/23
--- OUTSIDE RECORDS SUMMARY | 2024-09-30 07:31 | XMS_ITS ---
Author Organization [facility] [employer] [facility] Address [facility] [place] [address] Care Team Providers Care Dobie Worker Name Role Phone Pacheco Mejia DO Primary Care Provider Lakisha Sultana Unavailable [phone] REASON FOR VISIT Reschedule Social History Sex Assigned At : Social History Observation Description Sex Assigned At Female Encounters Encounter Location Date Provider Diagnosis [facility] [address] [place] [id number] [facility] [address] [facility] [address] [place] [address] 09/29/2024 Lakisha Parra Plan Of Treatment Next Appt Details Provider Name:Berkley Barnhart , 10/02/2024 03:00:00 PM, [facility], [address], [address], Provider Name:Berkley Barnhart , 10/20/2024 01:00:00 PM, [facility] [address], [address], Provider Name:Lakisha medrano, 10/20/2024 02:45:00 PM, [facility] [address], [facility] [address], [place], [address], Provider Name:Berkley Barnhart , 11/03/2024 04:00:00 PM, [facility], [facility] [address], [place], [address], Provider Name:Berkley Barnhart , 11/17/2024 01:00:00 PM, [facility], [facility] [address], [place], [address], Progress Notes * ADI FLOWERS MDOB: 3 (63 yo F)Acc No.[id number]:09/29/2024 Patient: ADI DAVEY :1960 A ge:63 Y S ex:Female Address:[address] [place] [address] * true * Date: Generated for Irma sweeney/Geronimo/eTluchosmitting on: 0 09/30/2024 07:30 AM CDT
[2024-09-30 07:43] VITALS: BP 116/65; PULSE 76; RESP 18; TEMP 36.2; O2SAT 95
--- NOTE | 2024-09-30 08:36 | PM.HPGS ---
History of Present Illness History of Present Illness Consent: Risks, benefits, and alternatives have been discussed and questions answered. Patient agrees to proceed with procedure. Chief complaint: Spondylosis w/o Myelopathy or Radiculopathy, chron Narrative: Leyla Vega is a 63 year old female with chronic, recalcitrant and disabling left cervical pain secondary to degenerative spondylosis with failure to respond to aggressive conservative measures including PT, oral and topical analgesics, opioid and nonopioid analgesics, rest, time and activity/behavioral modification over the past 1-2 years who presents for diagnostic/prognostic medial branch blocks of the left C5, C6, C7 medial branches(#1) addressing the ipsilateral C5-6, C6-7 facet joints under fluoroscopic guidance and with contrast control. Review of Systems Review of Systems: Patient denies any new infectious, allergic, cardiopulmonary, neurologic or constitutional symptoms or changes in activity tolerance or exercise capacity including new or progressive SOB/GUERRERO, peripheral edema, productive cough, dysuria, nausea/vomiting, diarrhea, weight change, fevers/chills/night sweats, new or progressive neurologic deficit, cognitive or mood changes since last seen, except as documented in the HPI. [facility] Past Medical History Medical History Achilles tendinitis of left lower extremity Morbid obesity due to excess calories Tear of biceps muscle Obesity Peripheral neuropathy Restless leg syndrome Lumbosacral spondylosis Dorsalgia Low TSH level Thyrotoxicosis, unspecified with thyrotoxic crisis or storm Chronic post-traumatic stress disorder (PTSD) Hyperlipidemia Essential hypertension Depression Obstructive sleep apnea of adult Osteoarthritis Moderate aortic stenosis Anemia Cervical radiculopathy Vitamin D deficiency Anxiety Surgical History Surgical History History of left knee replacement Hx of appendectomy 08/27/2014 History of lumpectomy of left breast H/O abdominal hysterectomy With unilateral oophorectomy History of total right knee replacement (TKR) Hx of cardiac cath Nonobstructive CAD by cath 10/18/2010-normal m, cx. 30% LAD/RCA (per [facility] note) H/O gastric bypass Social History Social History Smoking status: Never smoker Second hand tobacco smoke exposure: No Alcohol intake: never Drinks per week: 0 Alcohol use details: RARE, ONE A MONTH Substance use: never Substance use type: does not use Do You Feel Safe in your Home?: Yes Lack of Transportation: No Lack of Food: Sometimes True Current Housing: I Have Housing Concerned About Future Housing: YES Difficulty Paying Gas/Electric Bills: YES Difficulty Paying for Meds: No Currently Unemployed: No Education: Bachelor's Degree Difficulty w/ Childcare or Family Care: No Living arrangements: with family Spiritual care concerns: No Meds Home Medications and Allergies Home Medications ?Medication ?Instructions ?Recorded ?Confirmed ?Type bupropion HCl 100 mg tablet,12 hr 100 mg PO BID #180 tabs 11/13/22 09/30/24 Rx sustained-release (Wellbutrin SR) duloxetine 60 mg capsule,delayed 60 mg PO DAILY #90 caps 11/13/22 09/30/24 Rx release B12 1,000 mcg PO DAILY 05/21/23 09/30/24 History Biotin Hyaluric Acid 10,000 mcg PO DAILY 05/21/23 09/30/24 History Iron 65 Mg W Vit C 270mg 65 mg PO DAILY 05/21/23 09/30/24 History lamotrigine 100 mg tablet 100 mg PO DAILY 02/23/24 09/30/24 History lorazepam 0.5 mg tablet 0.5 mg PO PRN PRN Anxiety 02/23/24 09/30/24 History calcium 315 mg (as 1 tablet PO DAILY 03/06/24 09/30/24 History citrate)-vitamin D3 5 mcg (200 unit) tablet (Calcium Citrate + D) cetirizine 10 mg tablet (Zyrtec) 10 mg PO DAILY 03/06/24 09/30/24 History melatonin 10 mg capsule 10 mg PO HS PRN Sleep 03/06/24 09/30/24 History omeprazole 40 mg capsule,delayed 40 mg PO DAILY #90 caps 04/15/24 09/30/24 Rx release atorvastatin 80 mg tablet 80 mg PO QHS #90 tabs 06/10/24 09/30/24 Rx pregabalin 50 mg capsule 50 mg PO BID #180 caps 06/24/24 09/30/24 Rx valsartan 80 mg tablet See Rx Instructions .Route 08/21/24 09/30/24 Rx .COMPLEX #90 tabs acetaminophen 500 mg tablet 500 mg PO .PRN PRN pain 09/18/24 09/30/24 History xkpjvjwm-soxnvddh-jxxf 45 mg-folic 1 cap PO DAILY 09/18/24 09/30/24 History acid 800 mcg-vit K 120 mcg capsule (Bariatric Multivitamins) naproxen 250 mg tablet 250 mg PO .PRN PRN pain 09/18/24 09/30/24 History omega-3 fatty acids [Redding-3] 2 cap PO DAILY 09/18/24 09/30/24 History vitamin c 1000mg + Calc carbnt 52mg BYMOUTH 09/18/24 09/18/24 History methocarbamol 750 mg tablet See Rx Instructions .Route 09/25/24 09/30/24 Rx .COMPLEX #180 tabs fluticasone propionate 50 2 spray intranasal BID #16 grams 09/26/24 09/30/24 Rx mcg/actuation nasal spray,suspension Allergies Allergy/AdvReac Type Severity Reaction Status Date / Time Penicillins Allergy Intermediate Hives Verified 09/30/24 07:52 tetracycline Allergy Unknown Unknown Verified 09/30/24 07:52 amoxicillin (From Augmentin) Allergy Hives Verified 09/30/24 07:52 clavulanic acid (From Allergy Hives Verified 09/30/24 07:52 Augmentin) Vital Signs Vital Signs - 24 hr 09/30/24 07:43 Temperature 97.2 F L Pulse Rate 76 Respiratory Rate 18 Blood Pressure 116/65 Pulse Oximetry 95 Oxygen Delivery Room Air Exam Narrative: The patient's physical exam is essentially unchanged from prior examination on 08/04/2024. Specifically, patient demonstrates normal lung capacity, tidal volume and respiratory rate without wheezes, crackles, rales or rubs. Heart rate and rhythm are regular without murmurs, gallops or rubs. No JVD. Pulses 2+ globally without increasing peripheral edema. AAOx3 with no evidence of confusion, intoxication or altered mental state, NC/AT without acute distress or altered consciousness. Speech, cognition, mood, insight and judgment at baseline and within normal limits. Assessment and Plan Assessment and plan (1) Neck Pain: Code(s): M54.2 - Cervicalgia Status: Acute (2) Cervical spondylosis: Code(s): M47.812 - Spondylosis without myelopathy or radiculopathy, cervical region Status: Acute (3) Chronic pain: Code(s): G89.29 - Other chronic pain Status: Acute Plan Proceed as planned with diagnostic/prognostic medial branch blocks of the left C5, C6, C7 medial branches(#1) addressing the ipsilateral C5-6, C6-7 facet joints under fluoroscopic guidance and with contrast control.
--- NOTE | 2024-09-30 08:39 | WPDHPUPDATE1 ---
History and Physical Update Update Date/Time: 09/30/24 08:39 History and Physical has been reviewed, including an updated exam of the patient. There are NO changes in the patient's condition. Risks, benefits, and alternatives have been discussed and questions answered. Patient agrees to proceed with procedure.
--- NOTE | 2024-09-30 08:40 | P.OP_ITS ---
Procedure Note - Detailed Date of Procedure 09/30/24 Pre-op Diagnosis Spondylosis w/o Myelopathy or Radiculopathy, chron Post-op Diagnosis Same Procedure Performed Diagnostic left Cervical Medial Branch Nerve Blocks at [C5, C6, C7] Blocking the [Ipsilateral] [C5-6, C6-7] facet joints under Fluoroscopic Guidance and with Contrast Control ([2] levels blocked). Surgeon Rajan Trammell MD Brim And Crown Presser None. Anesthesia Local Description of Procedure INFORMED CONSENT: Risks, benefits and alternatives to the procedure were discussed in detail with the patient who expressed explicit understanding and consent to proceed. Patient was informed verbally and in written form regarding the risks associated with the procedure including the low risk of serious infection, bleeding/bruising, allergic reaction, nerve or organ injury, paralysis, procedural site pain or discomfort, worsening pain and/or mobility, failure to treat and/or disfigurement. The patient expressed explicit understanding and consent to proceed. All materials required for the procedure were available prior to procedure start. Site and side were marked prior to procedure and confirmed in the presence of the patient. PROCEDURE IN DETAIL: The patient was brought to the procedural suite and placed in the prone position with head stabilized with a ProneView pillow. Patient was made comfortable with use of pillows under the head/chest, hips and ankles. Skin overlying the injection site on the affected side(s) was prepared broadly with ChloraPrep applicator and draped in a sterile manner. Aseptic technique was used throughout. The endplates of the vertebral bodies at the site(s) of interest were aligned in the AP view. Ipsilateral oblique angulation was utilized to optimize visualization of the pars interarticularis at each target site. Local anesthesia was established by i nfiltration with approximately 5 mL of 0.5% lidocaine via a 1-1/2 inch 27-gauge needle divided over each injection site. A 25-gauge 3.5 inch Quincke spinal needle was advanced until the needle tip contacted the periosteum of the pars interarticularis at the target site, left C5 medial branch. Lateral view was utilized to confirm the appropriate placement of the needle tip just anterior to the center point of the interarticularis. In the Lateral view, 0.25 mL of Omnipaque 300 contrast medium was injected after negative aspiration for CSF, blood or other bodily fluid, showing appropriate extra-articular spread of contrast without evidence of intravascular, foraminal or intrathecal placement. A 0.25 mL solution of 0.5% PF bupivacaine was injected after negative repeat aspiration. Appropriate spread of the injectate was confirmed with washout of previously injected contrast. No parasthesias were elicited. Needle was removed completely intact without difficulty. The same exact procedure was repeated for all remaining levels on the ipsilateral side, left C6,C7 medial branches, modified as necessary to accommodate for the new target location with identical findings and results and no evidence of complication. Images were saved and documented in the patient chart. Patient's skin was cleansed and sterile bandage applied. The patient tolerated the procedure well. The patient was transported to the recovery area in stable condition where they were observed for an appropriate amount of time prior to discharge, without evidence of complication. Patient was instructed on the appropriate completion of a pain diary over the next 12-24 hours. The patient was instructed to avoid excessive activity for the next 48 hours, including climbing and frequent use of stairs. Showers only for 48 hours. They were instructed not to drive or operate heavy machinery for 24 hours. They are to monitor for severe headaches, fevers, chills, night sweats, erythema/swelling at the site or any other signs of infection, bleeding/bruising, bowel or bladder changes as well as new pain, weakness or numbness in the upper or lower extremity. Should they notice these changes, they are instructed to call our office immediately or report directly to the nearest Emergency Department if no answer or if after posted office hours. COMPLICATIONS: COMMENTS: None CONTRAST WASTED: 29.25 mL Omnipaque 300. Complications No immediate complications Condition Stable Disposition Same day [facility] Billing Surgery - Charge Forward: Surgery Billing
[2024-09-30 08:57] VITALS: BP 135/85; PULSE 83; RESP 18; O2SAT 96
[2024-09-30 09:00] VITALS: BP 129/77; PULSE 83; RESP 20; O2SAT 98
[2024-09-30 09:07] VITALS: BP 136/76; PULSE 84; RESP 22; O2SAT 99
[2024-09-30] MEDS: BUPivacaine HCL 0.5% 10 ML AMP 3 ML INFILTRATE (09:07)
[2024-09-30] MEDS: LIDOCAINE 1% PF INJ 5 ML VIAL INFILTRATE (09:08)
[2024-09-30 09:20] VITALS: BP 126/84; PULSE 72; RESP 18; O2SAT 96
== END 2024-09-30 09:31 | disposition home or self-care (01) ==
PROVIDERS: PCP Internal Medicine; Visit Provider Anesthesiology Pain Medicine
PROC: (CPT 64490; principal; 2024-09-30 08:30)
DX: M47.812 Spondylosis without myelopathy or radiculopathy, cervical region (principal); G89.29 Other chronic pain
CPT/HCPCS: 64490; 64491; 99199

== ENCOUNTER 2024-10-02 01:56 | Day surgery (SDC) | payer OTHER, MEDICAID, SELFPAY ==
[2024-10-01 15:59] VITALS: BMI 51.3
[2024-10-02] VITALS (9 sets, daily range): BP systolic 116–167; BP diastolic 69–115; PULSE 70–82; RESP 16–25; TEMP 36.8; O2SAT 94–100
--- OUTSIDE RECORDS SUMMARY | 2024-10-02 02:00 | XMS_ITS | Referral Summary ---
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
--- OUTSIDE RECORDS SUMMARY | 2024-10-02 02:00 | XMS_ITS | Continuity of Care Document ---
Author Organization [facility] Address [address] [place] [address] Phone Care Team Providers Care Machine Try Out Setter Name Role Phone Nish Ramos Unavailable Unavailable Procedures Procedure Date Therapeutic Activities Neuromuscular Re-Ed Hot or Cold Pack Doc neg elder mal no plan OT Evaluation Low Complexity Therapeutic Activities Therapeutic Exercise Hot or Cold Pack Advance Directives Directive Yes / No Effective Date File Name No Information Encounters Encounter Description Practice Location Reason(s) For Visit Diagnoses Date Provider Providers Copied on Encounter [facility], [address] [address], [place], [place], [id number], tel:[phone] [place] No Information 3 Bhupinder Mock. . [facility], [id number], tel:[phone] [place] No Information 3 Bhupinder Mock. . Referring Provider: Alessandra Alston, [address], [place], [address]. tel:[phone] [facility], [address], [place], [place], [id number], tel:[phone] [place] No Information 3 Bhupinder Mock. . Referring Provider: Alessandra Alston, [address], [place], [address]. tel:[phone] Family History Family Member Type Diagnosis Age At Onset No Information Payers Payer name Insurance type Covered constitution party ID Tonya sanchez(s) [employer] CI [id number] Social History Type Description Quantity Date Captured Comments Sex Female Smoking Status No Information Chief Complaint And Reason For Visit No Information Reason For Referral Reason For Referral No Information Plan Of Treatment Date Type Action Status Referral Ordered: Clinical Psychology (related to Depression) ordered Referral Ordered: Referrals: Specialist. Evaluate and Treat (related to Adjustment disorder with depressed mood) ordered Referral Ordered: Depression: Depression management program timeframe: 1 Day. (related to Depression) ordered History Of Present Illness Encounter Date [...]
--- OUTSIDE RECORDS SUMMARY | 2024-10-02 02:00 | XMS_ITS | Continuity of Care Document ---
Author Name [facility] Address [address] [place] [address] Organization [facility] Care Team Providers Care Acid Maker Name Role Phone [facility] Unavailable Unavailable Problems Problem Status Onset [...] Patient LIONEL JOSHI Gender Female Name [facility] Number [id number] Date of Study 10/07/2018 Attending Physician Marcell Perez MD Visit [id number] Director Of Estate See [place], [facility] Number Date of 1960 [...] Root: 2.88 cm LVOT Diameter: 1.77 cm [email or web address] HNAM URL Echo Transthoracic Complete Transthoraci c Echocardiography Report (TTE) Demographics Patient Name LIONEL JOSHI Gender Female [facility] Number [id number] Date of Study 01/11/2017 Referring Physician Visit Number [id number] Director Of Estate Anthony Vallejo Date of 1960 Interpreting [place] [...] Provider ADM Date DC Date Status Source [facility] Between Visit [id number] 05/16 23:59 :59 Discharg ed [facility] Between Visit [id number] 04/02 23:59 :59 Discharg ed [facility] Family [facility] MOO MOO CLAUDIA OUTPATIENT [id number] R HAND 5TH MC FX Ravinedr To[place]usch [facility] OUTPATIENT [id number] RT HAND FX 1WK FU Ravinder [place] [facility] MOO MOO [facility] OUTPATIENT [id number] CAST CHANGE-TO O TIGHT [facility]CC [facility] OUTPATIENT [id number] 4WK F/U Zihao Casillas [facility] OUTPATIENT [id number] 4WK F/U Zihao Casillas C[facility] Ancillar ies [facility] [id number] annual check up Lavern Xavier Cancel [facility] Blue [facility] OUTPATIENT [id number] MSWL PER DR. DARIEL Finch Cancel [facility] FBL [facility] OUTPATIENT [id number] 2 MO F/U Lavern Kolker Cancel [facility] OUTPATIENT [id number] fu Lavern Kolker [facility] [id number] 2 MO F/U Lavern Kolker Cancel [facility] OUTPATIENT [id number] MSWL PER DR. DARIEL Molina Josette Cancel [facility] OUTPATIENT [id number] F/U MSWL Tracy Josette Cancel [facility] FBL FBL NO TECHBILL [id number] [phone] 3 MONTH F/U Lavern Kolker Cancel [facility] DIAGNOSTIC TEST [id number] LANE pre-op John Paul Viera Cancel [facility] FGL FGL OUTPATIENT [id number] 6-8 WEEK F/U Cancel [facility] FGL [facility] OUTPATIENT [id number] MEDS MAKING PT DIZZY Cancel [facility] OUTPATIENT [id number] medicatio n titration Cancel [facility] FBL [facility] OUTPATIENT [id number] cold symptoms Brionna Tomer Cancel [facility] OUTPATIENT [id number] CLASS: 1 MO 04/20/15 Rajan Rodriguez Cancel [facility] OUTPATIENT [id number] CLASS: 3 MO 04/20/15 Rajan Rodriguez Cancel [facility] OUTPATIENT [id number] CLASS: 1 MO 04/20/15 Rajan Rodriguez Cancel [facility]RISTOPHER CHRISTOPHER OUTPATIENT [id number] CONSULT LARGE MONS PUBIS-POS S INS See Karen Cancel [facility] MOO MOO CLAUDIA OUTPATIENT [id number] PRE DOS 01/13 FLIP CLAUDIA L KNEE Juan Carlos Danielson [facility] FGR [facility] OUTPATIENT [id number] wouned infected Guy Kwok Cancel [facility] DIAGNOSTIC TEST [id number] right proximal hamstring tendon tear Mohammad Arian Cancel [facility] THERAPY SERIES [id number] John Paul Viera Cancel [facility] DIAGNOSTIC TEST [id number] right proximal hamstring tendon tear Sid Don [facility] OUTPATIENT [id number] SOV: 3 OF 3(MEDICAR E) John Paul Viera Cancel [facility] OUTPATIENT [id number] SOV: 3 OF 3(MEDICAR E) John Paul Stephensller Cancel [facility] OUTPATIENT [id number] CLASS: YEARLY RYGB 04/20/15 Gonzales Medina Cancel [facility] DIAGNOSTIC TEST [id number] OSTEOARTH RITIS/ RIGHT KNEE PAIN Kyle Valentine 05/08 15:38 :23 Cancel [facility] OUTPATIENT [id number] 1 YEAR F/U Jacob Flip [facility] DIAGNOSTIC TEST [id number] Olimpia Huizar Cancel [facility] FPA FPA NO TECHBILL [id number] consultat ion Nyla Gov-Jake Cancel [facility] [employer] [facility] DIAGNOSTIC TEST [id number] arm paresthes ia Boris Moore Cancel [facility] FGR FGR OUTPATIENT [id number] whole-danielle nt based diet, per Dr. Gurwinder Goncalves-Erika unek Cancel [facility] Med Green FPG FPG OUTPATIENT [id number] six wks 09/04 16:08 :33 Cancel [employer] [facility] [place] OUTPATIENT [id number] 6WK FOLLOW UP LT KNEE REV Jacob Flip Cancel [facility] OUTPATIENT [id number] CLASS: YEARLY RYGB 04/20/15 Cancel [facility] MOO MOO CLAUDIA OUTPATIENT [id number] 1 YEAR F/U Jacob Castelan Cancel [facility] [place] OUTPAT[place] [id number] MOLE REMOVAL, ADHESION INJ Bre Wong Cancel [facility] [facility] OUTPATIENT [id number] 2 WK F/U PER PT Cancel [facility] FGL FGL OUTPATIENT [id number] CHECK SURGICAL WOUND Cancel [facility] Med Gold MOO MOO CLAUDIA DIAGNOSTIC TESTING [id number] left leg anterior swelling Rowdy Bryant C[facility] FPA [facility] NO TECHBILL [id number] BHC Cancel [facility] OUTPATIENT [id number] Possible UTI and mole removal (2) Cancel [facility] FPA [facility] OUTPATIENT [id number] UTI Alma Xiomara Cancel [facility] [id number] UTI Alma Xiomara Cancel [facility] [place] [id number] GENERAL EYE EXAM Enrike Rivera Cancel [facility] OUTPATIENT [id number] er f/u Nyla Gov-Jake Cancel [facility] [place] OUTPATIENT [id number] 6 HYOERTROP HIC SCAR Nidhi Jennings Cancel [facility] [facility]
--- OUTSIDE RECORDS SUMMARY | 2024-10-02 02:00 | XMS_ITS | Clinical Summary ---
Author Organization [facility] Elaine Cunha Address [address] [place] [address] Care Team Providers Care Woodwind Instruments Inspector Name Role Phone GlynnPacheco michelle Ravinder BILLS [...] bedtime. Active fluticasone propionate (FLONASE) 50 mcg/spray [place], Suspension nasal inhaler USE 2 SPRAY(S) IN [...] Comments Blood Pressure 129/70 05/30/2023 10:21 AM CANDLE MAKING SUPERVISOR Pulse 93 05/30/2023 10:21 AM CANDLE MAKING SUPERVISOR Temperature 35.7 C (96.2 F) 05/30/2023 10:21 AM CANDLE MAKING SUPERVISOR Respiratory Rate 12 05/30/2023 10:21 AM CANDLE MAKING SUPERVISOR Oxygen Saturation 96% 05/30/2023 10:21 AM CANDLE MAKING SUPERVISOR Inhaled Oxygen Concentration - - Weight 134.3 kg (296 lb) 05/30/2023 10:21 AM CANDLE MAKING SUPERVISOR Height 160 cm (5' 3 ) 05/30/2023 10:21 AM CANDLE MAKING SUPERVISOR Body Mass Index 52.43 05/30/2023 10:21 AM CANDLE MAKING SUPERVISOR Plan of Treatment Health Maintenance Due Date Last Done Comments DTAP/TDAP/TD VACCINES (1 - Tdap) 1981 PAP SMEAR 1992 BREAST CANCER SCREENING 2002 COLORECTAL SCREENING 10/25/2007 Colorectal Cancer Screening 10/25/2007 FIT-DNA Q 3 years 10/25/2007 FIT/FOBT Q 1 year 10/25/2007 Flex Sig/CT Colonography Q 5 years 10/25/2007 ZOSTER VACCINE (1 of 2) 2012 INFLUENZA VACCINE (#1) 2024 RSV VACCINE (60+ or ) (1 - 1-dose 75+ series) 2037 PNEUMOCOCCAL VACCINE 0-49 YEARS Aged Out 1 No longer eligible based on patient's age to complete this topic Insurance [facility] MEDICAID [place] Care Teams [employer] Inspector Relationship Specialty Start Date End Date Pacheco Mejia DO [address] [place] [address] PCP - General Internal Medicine 02/16/23
--- OUTSIDE RECORDS SUMMARY | 2024-10-02 02:00 | XMS_ITS | Clinical Summary ---
Author Organization [facility] Address [address] [place] [address] Phone Care Team Providers Care Letter Carrier Name Role Phone Pacheco Mejia DO Primary Care Provider [phone] Allergies Active Allergy Reactions Criticality Noted Date [...] Type Department Care Team Description 09/24/2024 Telephone [facility] Medical Group Cardiology [address] [place] [address] Salomon Sargent MD from Last [...] on file Legal Sex Female 3:02 PM DATA COLLECTOR Gender Identity Female 01/25/2023 3:47 PM CDT [...] to complete this topic Insurance [facility] Care Teams Letter Carrier Relationship Specialty Start Date End Date Pacheco Mejia DO PCP - General Internal Medicine 01/22/23
--- OUTSIDE RECORDS SUMMARY | 2024-10-02 02:00 | XMS_ITS | CONTINUITY OF CARE DOCUMENT ---
Author Name harry mcdonald Address Unknown Organization [facility] Office Address [address] [place] [address] [place] [address] Phone [phone] Care Team Providers Care Lather Apprentice Name Role Phone Melanie Carter MD Unavailable Melanie Carter MD Unavailable INSURANCE PROVIDERS Payer name Policy type / Coverage type [place] red green party ID ESSENCE HMO Other
--- NOTE | 2024-10-02 07:09 | ECHO_ITS ---
Patient Info Name: Leyla Vega Age: 63 years : 1960 Gender: Female Ht: 62 in Wt: 280 lbs BSA: 2.44 m2 Technical Quality: Good Exam Date: 10/02/2024 7:25 AM Exam Location: Echo Lab Patient Status: Outpatient Admit Date: 10/02/2024 Staff Ordering Physician: Justin Herron DO Director Employee Safety And Health: Kerline De La Garza RDCS Attending Provider: Justin Herron DO Referring Physician: Gopal BURRIS; Exam Type: CA echo transesophageal Study Info Indications I35.0 - Nonrheumatic aortic (valve) stenosis Complete two-dimensional, color flow and Doppler transesophageal study is performed. Procedure Details Risks/benefits/alternative to ROSS discuss with patient and she gave informed consent. Patient was monitored electrocardiographically, vitals, pulse ox. She was in normal rhythm, BP 135/70, HR 75 bpm, pulse ox>95%. Patient given cetacaine spray to posterior oropharynx x 2. Given Fentanyl 50 mcg and Versed 4 mg IV for conscious sedation. ROSS probe advanced and she swallowed it with some gagging. Multiple images obtained. ROSS withdrawn and no blood noted on ROSS probe tip. Patient tolerated procedure well. No complications. Summary 1. Left ventricular chamber dimension is normal. 2. There is moderate concentric increased left ventricular wall thickness. 3. Left ventricular systolic function is normal with an ejection fraction of 65-70%. 4. The left ventricular diastolic function is indeterminate as it was not assessed. 5. Left atrial chamber dimension is moderately enlarged. 6. There is severe aortic valve sclerosis. 7. There is mild aortic valve regurgitation. 8. There is severe aortic valve stenosis and valve area is 0.5 cm2 by planimetry. 9. The mitral valve has mildly calcified annulus. 10. There is mild mitral valve stenosis. 11. There is mild to moderate mitral valve regurgitation. Left Ventricle Left ventricular systolic function is normal with an ejection fraction of 65-70%. Left ventricular chamber dimension is normal. There is moderate concentric increased left ventricular wall thickness. The left ventricular diastolic function is indeterminate as it was not assessed. Right Ventricle Right ventricular chamber dimension is normal. Right ventricular systolic function is normal. Left Atria Left atrial chamber dimension is moderately enlarged. Right Atria Right atrial chamber dimension is normal. Atrial Septum Intact interatrial septum visualized by color flow imaging. Atrial Appendage There is no thrombus visualized in the left atrial appendage. Aortic Valve There is severe aortic valve stenosis and valve area is 0.5 cm2 by planimetry. The aortic valve is trileaflet. There is severe aortic valve sclerosis. There is mild aortic valve regurgitation. Pulmonic Valve There is no pulmonic regurgitation. Mitral Valve The mitral valve has mildly calcified annulus. There is mild mitral valve stenosis. There is mild to moderate mitral valve regurgitation. Tricuspid Valve There is no tricuspid valve regurgitation. Pericardium/Pleural There is no pericardial effusion. Inferior Vena Cava Inferior vena cava is not well visualized. Aorta The aortic root size at the sinus of Valsalva is normal. Aortic Valve Name Value Normal AV 2D/MM AV Area (Planimetry) 0.5 cm2 Report Signatures
== END 2024-10-02 09:41 | disposition home or self-care (01) ==
PROVIDERS: PCP Internal Medicine; Visit Provider Internal Medicine Cardiovascular Disease
PROC: (CPT 93312; principal; 2024-10-02 08:30)
DX: I35.0 Nonrheumatic aortic (valve) stenosis (principal); I35.8 Other nonrheumatic aortic valve disorders; I08.0 Rheumatic disorders of both mitral and aortic valves; I45.10 Unspecified right bundle-branch block; I10 Essential (primary) hypertension; E78.5 Hyperlipidemia, unspecified; G47.33 Obstructive sleep apnea (adult) (pediatric); G25.81 Restless legs syndrome; E05.91 Thyrotoxicosis, unspecified with thyrotoxic crisis or storm; F43.12 Post-traumatic stress disorder, chronic; D64.9 Anemia, unspecified; E55.9 Vitamin D deficiency, unspecified; G62.9 Polyneuropathy, unspecified; M47.897 Other spondylosis, lumbosacral region; F32.A Depression, unspecified; F41.9 Anxiety disorder, unspecified; M19.90 Unspecified osteoarthritis, unspecified site; M54.12 Radiculopathy, cervical region; E66.01 Morbid (severe) obesity due to excess calories; Z68.43 Body mass index [BMI] 50.0-59.9, adult; Z79.1 Long term (current) use of non-steroidal anti-inflammatories (NSAID); Z98.890 Other specified postprocedural states; Z98.84 Bariatric surgery status; Z98.61 Coronary angioplasty status; Z86.79 Personal history of other diseases of the circulatory system
CPT/HCPCS: 93312; 93320; 93325; J2250; J3010; J7040

== ENCOUNTER 2024-10-02 16:22 | Emergency (ER) | payer OTHER, MEDICAID, SELFPAY ==
[2024-10-02] VITALS (9 sets, daily range): BP systolic 115–148; BP diastolic 67–79; PULSE 73–91; RESP 12–24; TEMP 36.8; O2SAT 96–98
--- NOTE | ~2024-10-02 | CT_ITS ---
CLINICAL INDICATION: Chest and abdominal pain after transesophageal echo 12 hours earlier, now resol ed. COMPARISON: None. TECHNIQUE: An enhanced CT of the abdomen and pelvis was performed utilizing multislice spiral Exco inTouch ue reconstructed at 5 mm slice thickness. Coronal and sagittal reconstructions were performed. This CT examination was performed utilizing dose reduction techniques. DLP: 1817 mGy-cm FINDINGS/OBSERVATIONS: Lung: Patchy groundglass opacification within the superior segment of the left lower lobe, possibly pulmona ry vascular congestion. The heart is of normal size, without pericardial effusion. Dense calcification of the aortic valve is noted. The main pulmonary artery is enlarged, suggesting portal hypertension.. Mediastinum: No pathologically enlarged or morphologically suspicious lymph nodes are identified within the medias tinum, bilateral axilla, within the soft tissues of the anterior chest wall. Soft tissues of the chest: Unremarkable. Bones of the chest: No acute fracture. No lytic or blastic lesions are identified. Liver: The liver enhances homogeneously and is not enlarged measuring 18 cm in longitudinal dimension. Gallbladder and biliary system: Layering stones within the gallbladder which is otherwise unremarkable. Pancreas: The pancreas enhances homogeneously, without ductal dilatation. Spleen: The spleen enhances homogeneously and is not enlarged measuring 10 cm in longitudinal dimensi on. Kidneys: The bilateral kidneys enhance symmetrically without hydronephrosis or renal calculi. Adrenal glands: Unremarkable. Gastrointestinal tract: Postoperative change is present history. Fecal stasis within the colon. The stomach is distended with retained gastric contents, suggesting recent oral intake. Appendix: Surgically absent. Vasculature: Calcified atherosclerotic disease is present. No aneurysmal dilatation. Lymph nodes: Scattered nonpathologically enlarged lymph nodes within the root of the mesentery and deep in the pel vis. Pelvic structures: The bladder is minimally distended and otherwise unremarkable. The uterus is surgically absent. Body wall and musculoskeletal: Small fat-containing umbilical hernia. Degenerative disease within the lower lumbar spine, with osteophyte formation, disc space narrowing, endplate changes and vacuum phenomena. IMPRESSION: Findings within the chest suggesting pulmonary vascular congestion. No acute pathology within the abdomen or pelvis, as detailed above. Reviewed, dictated and finalized at location A.
--- NOTE | ~2024-10-02 | XR_ITS ---
CHEST RADIOGRAPH, PA AND LATERAL CLINICAL HISTORY: CP after ROSS procedure . COMPARISON: 01/06/2024 TECHNIQUE: PA and lateral views of the chest. FINDINGS The cardiomediastinal silhouette is unremarkable. The lungs are clear. No pneumothorax is identified. No pneumomediastinum is noted. IMPRESSION: No focal infiltrate or effusion. Reviewed, dictated and finalized at location A.
--- NOTE | 2024-10-02 16:24 | ECG_ITS ---
Test Date: 2024-10-02 16:32:59 Measurements Intervals [place] Rate: 73 P: 36 OR: 208 QRS: -31 QRSD: 109 T: 109 QT: 388 QTc: 430 Interpretive Statements SINUS RHYTHM MARKED LEFT AXIS DEVIATION [QRS AXIS < -30] INCOMPLETE RIGHT BUNDLE BRANCH BLOCK [90+ ms QRS DURATION, TERMINAL R IN V1/V2, 40+ ms S IN I/aVL/V4/V5/V6] LEFT VENTRICULAR HYPERTROPHY AND ST-T CHANGE [VOLTAGE CRITERIA PLUS ST/T ABNORMALITY] No previous ECG available for comparison Electronically Signed On 10-03-2024 18:23:09 CDT by Amari Crowe M.D.
--- OUTSIDE RECORDS SUMMARY | 2024-10-02 16:25 | XMS_ITS | Clinical Summary ---
Author Organization [facility] Elaine Cunha Address [address] [place] [address] Care Team Providers Care Account Development Executive Name Role Phone GlynnPacheco michelle Ravinder BILLS [...] bedtime. Active fluticasone propionate (FLONASE) 50 mcg/spray [place], Suspension nasal inhaler USE 2 SPRAY(S) IN [...] Comments Blood Pressure 129/70 05/30/2023 10:21 AM PLASTICS FABRICATION SUPERVISOR Pulse 93 05/30/2023 10:21 AM PLASTICS FABRICATION SUPERVISOR Temperature 35.7 C (96.2 F) 05/30/2023 10:21 AM PLASTICS FABRICATION SUPERVISOR Respiratory Rate 12 05/30/2023 10:21 AM PLASTICS FABRICATION SUPERVISOR Oxygen Saturation 96% 05/30/2023 10:21 AM PLASTICS FABRICATION SUPERVISOR Inhaled Oxygen Concentration - - Weight 134.3 kg (296 lb) 05/30/2023 10:21 AM PLASTICS FABRICATION SUPERVISOR Height 160 cm (5' 3 ) 05/30/2023 10:21 AM PLASTICS FABRICATION SUPERVISOR Body Mass Index 52.43 05/30/2023 10:21 AM PLASTICS FABRICATION SUPERVISOR Plan of Treatment Health Maintenance Due [...] age to complete this topic Insurance [facility] MEDICAID [place] Care Teams Account Development Executive Relationship Specialty Start Date End Date Pacheco Mejia DO [address] [place] [address] PCP - General Internal Medicine 02/16/23
--- OUTSIDE RECORDS SUMMARY | 2024-10-02 16:25 | XMS_ITS | Clinical Summary ---
Author Organization [facility] Address [address] [place] [address] Phone Care Team Providers Care Manager College Name Role Phone Pacheco Mejia DO Primary Care Provider [phone] Allergies Active Allergy Reactions Criticality Noted Date [...] Type Department Care Team Description 09/24/2024 Telephone [facility] Medical Group Cardiology [address] [place] [address] Salomon Sargent MD from Last [...] on file Legal Sex Female 3:02 PM MAINTENANCE REPAIRER Gender Identity Female 01/25/2023 3:47 PM CDT [...] [facility] Care Teams Manager College Relationship Specialty Start Date End Date Pacheco Mejia DO PCP - General Internal Medicine 01/22/23
--- OUTSIDE RECORDS SUMMARY | 2024-10-02 16:25 | XMS_ITS | CONTINUITY OF CARE DOCUMENT ---
Author Name harry mcdonald Address Unknown Organization [facility] Office Address [address] [place] [address] [place] [address] Phone [phone] Care Team Providers Care Travel Service Consultant Name Role Phone Melanie Carter MD Unavailable [phone] Melanie Carter MD Unavailable [phone] INSURANCE PROVIDERS Payer name Policy type / Coverage type [place] red democrat ID E[employer]ENCE HMO Other
--- OUTSIDE RECORDS SUMMARY | 2024-10-02 16:25 | XMS_ITS | Continuity of Care Document ---
Author Name [facility] Address [address] [place] [address] [facility] Care Team Providers Care Health Coach Name Role Phone [facility] Unavailable Unavailable Problems Problem Status Onset [...] Patient LIONEL JOSHI Gender Female Name [facility] Number [id number] Date of Study 10/07/2018 Attending Physician Marcell Perez MD Visit [id number] Mid Level Business Analyst See [place], [facility] Number Date of 1960 Interpreting [...] Root: 2.88 cm LVOT Diameter: 1.77 cm CD:[email or web address] [email or web address] HNAM URL Echo Transthoracic Complete Transthoraci c Echocardiography Report (TTE) Demographics Patient Name LIONEL JOSHI Gender Female [facility] Number [id number] Date of Study 01/11/2017 Referring Physician Visit Number [id number] Mid Level Business Analyst Anthony Vallejo Date of 1960 Interpreting [place] [...] Provider ADM Date DC Date Status Source [facility] Between Visit [id number] 05/16 23:59 :59 Discharg ed [facility] S[facility] Between Visit [id number] 04/02 23:59 :59 Discharg ed [facility] MOO MOO CLAUDIA OUTPATIENT [id number] R HAND 5TH MC FX Ravinder Toedebusch [facility] M[facility] M[facility] OUTPATIENT [id number] RT HAND FX 1WK FU Ravinder Toedebusch [facility] MOO MOO [facility] OUTPATIENT [id number] CAST CHANGE-TO O TIGHT [facility] OUTPATIENT [id number] 4WK F/U Zihao Casillas C[facility] [id number] 4WK F/U Zihao Casillas C[facility] Anc[facility] OUTPATIENT [id number] annual check up Lavern Xavier Cancel [facility] Blue [facility] OUTPATIENT [id number] MSWL PER DR. DARIEL Finch Cancel [facility] FBL [facility] OUTPATIENT [id number] 2 MO F/U Lavern Kolker C[facility] FBL [facility] OUTPATIENT [id number] fu Lavern Kolker [facility] [id number] 2 MO F/U Lavern Kolker Cancel [facility] OUTPATIENT [id number] MSWL PER DR. DARIEL Molina Josette Cancel [facility] OUTPATIENT [id number] F/U MSWL Tracy Josette Cancel [facility] FBL FBL NO TECHBILL [id number] [phone] 3 MONTH F/U Lavern Kolker C[facility] DIAGNOSTIC TEST [id number] LANE pre-op John Paul Viera Cancel [facility] FGL FGL OUTPATIENT [id number] 6-8 WEEK F/U Cancel [facility] FGL [facility] OUTPATIENT [id number] MEDS MAKING PT DIZZY Cancel [facility] FGL [facility] OUTPATIENT [id number] medicatio n titration Cancel [facility] FBL [facility] OUTPATIENT [id number] cold symptoms Brionna Tomer Cancel [facility] OUTPATIENT [id number] CLASS: 1 MO 04/20/15 Rajan Rodriguez Cancel [facility] OUTPATIENT [id number] CLASS: 3 MO 04/20/15 Rajan Rodriguez Cancel [facility] OUTPATIENT [id number] CLASS: 1 MO 04/20/15 Rajan Rodriguez Cancel [facility] CHRISTOPHER CHRISTOPHER OUTPATIENT [id number] CONSULT LARGE MONS PUBIS-POS S INS See Karen Cancel [facility] MOO MOO CLAUDIA OUTPATIENT [id number] PRE DOS 01/13 FLIP CLAUDIA L KNEE Juan Carlos Danielson Cancel [facility] FGR [facility]GR OUTPATIENT [id number] wouned infected Guy Kowk Cancel [facility] DIAG[facility]STIC TEST [id number] right proximal hamstring tendon tear Mohammad Arian Cancel [facility] THERAPY SERIES [id number] John Paul Viera Cancel [facility] DIAGNOSTIC TEST [id number] right proximal hamstring tendon tear Sid Don [facility] OUTPATIENT [id number] SOV: 3 OF 3(MEDICAR E) John Paul Viera Cancel [facility] OUTPATIENT [id number] SOV: 3 OF 3(MEDICAR E) John Paul Stephensller Cancel [facility] OUTPATIENT [id number] CLASS: YEARLY RYGB 04/20/15 Gonzales Medina Cancel [facility] DIAGNOSTIC TEST [id number] OSTEOARTH RITIS/ RIGHT KNEE PAIN Kyle Valentine 05/08 15:38 :23 Cancel [facility] OUTPATIENT [id number] 1 YEAR F/U Jacob Flip Cancel [facility] DIAGNOSTIC TEST [id number] Olimpia Huizar Cancel [facility] FPA FPA NO TECHBILL [id number] consultat ion Nyla Gov-Jake Cancel [facility] DIAGNOSTIC TEST [id number] arm paresthes ia Boris Moore Cancel [facility] FGR FGR OUTPATIENT [id number] whole-danielle nt based diet, per Dr. Gurwinder Goncalves-Erika unek Cancel [facility] Med Green FPG FPG OUTPATIENT [id number] six wks 09/04 16:08 :33 Cancel [employer] [facility] OUTPATIENT [id number] 6WK FOLLOW UP LT KNEE REV Jacob Flip Cancel [facility] OUTPATIENT [id number] CLASS: YEARLY RYGB 04/20/15 Cancel [facility] MOO MOO CLAUDIA OUTPATIENT [id number] 1 YEAR F/U Jacob Castelan Cancel [facility] [place] OUT[place] [id number] MOLE REMOVAL, ADHESION INJ Bre Wong Cancel [facility] OUTPATIENT [id number] 2 WK F/U PER PT Cancel [facility] FGL FGL OUTPATIENT [id number] CHECK SURGICAL WOUND Cancel [facility] Med Gold MOO MOO CLAUDIA DIAGNOSTIC TESTING [id number] left leg anterior swelling Rowdy Bryant Cancel [facility] FPA [place] NO TECHBILL [id number] BHC Cancel [facility] OUTPATIENT [id number] Possible UTI and mole removal (2) Cancel [facility] [place] OUTPATIENT [id number] UTI Alma Xiomara Cancel [facility] [id number] UTI Alma Xiomara Cancel [facility] [place] [id number] GENERAL EYE EXAM Enrike Rivera [facility] OUTPATIENT [id number] er f/u Nyla Gov-Jake Cancel [facility] [place] OUT[place] [id number] 6 HYOERTROP HIC SCAR Nidhi Jennings C[facility]
--- OUTSIDE RECORDS SUMMARY | 2024-10-02 16:25 | XMS_ITS | Continuity of Care Document ---
Author Organization [facility] Address [address] [place] [address] Phone Care Team Providers Care After School Driver Name Role Phone Nish Ramos Unavailable Unavailable Procedures Procedure Date Therapeutic Activities Neuromuscular Re-Ed Hot or Cold Pack Doc neg elder mal no plan OT Evaluation Low Complexity Therapeutic Activities Therapeutic Exercise Hot or Cold Pack Advance Directives Directive Yes / No Effective Date File Name No Information Encounters Encounter Description Practice Location Reason(s) For Visit Diagnoses Date Provider Providers Copied on Encounter [facility], [address] [address], [place], [place], [id number], tel:[phone] [place] No Information 3 Bhupinder Mock. . [facility], [id number], tel:[phone] [place] No Information 3 Bhupinder Mock. . Referring Provider: Alessandra Alston, [address], [place], [address]. tel:[phone] [facility], [address], [place], [place], [id number], tel:[phone] [place] No Information 3 Bhupinder Mock. . Referring Provider: Alessandra Alston, [address], [place], [address]. tel:[phone] Family History Family Member Type Diagnosis Age At Onset No Information Payers Payer name Insurance type Covered alliance party ID Tonya sanchez(s) [employer] CI [id number] Social History Type Description Quantity Date Captured [...]
--- OUTSIDE RECORDS SUMMARY | 2024-10-02 16:25 | XMS_ITS | Referral Summary ---
Author Organization [facility] Address [address] [place] [address] Phone Care Team Providers Care Care Transport Nurse Name Role Phone Pacheco Mejia DO Primary Care Provider [phone] Encounters Date Type Department Care Team Description 09/24/2024 Telephone [facility] Medical [facility] Cardiology [address] [place] [address] Salomon Sargent MD from Last [...] on file Legal Sex Female 3:02 PM SBA BUSINESS DEVELOPMENT OFFICER Gender Identity Female 01/25/2023 3:47 PM CDT [...] Not on file Insurance [employer] Care Teams Care Transport Nurse Relationship Specialty Start Date End Date Pacheco Mejia DO PCP - General Internal Medicine 01/22/23
[2024-10-02 19:57] LABS: Basophils Absolute Auto 0.1 K/mm3 (0.0-0.1); Basophils Percent Auto 0.5 % (0.2-1.2); Eosinophils Absolute Auto 0.3 K/mm3 (0-0.3); Eosinophils Percent Auto 2.9 % (0-4.4); Hematocrit 40.6 % (37.0-47.0); Hemoglobin 13.7 g/dL (12.0-15.0); Immature Granulocyte Absolute 0.04 K/mm3 (0.00-0.031); Immature Granulocyte Percent A 0.4 % (0-0.5); Lymphocytes Absolute Auto 1.61 K/mm3 (0.9-3.2); Lymphocytes Percent Auto 14.3 % (18.3-44.2); Mean Corpuscular HGB Conc 33.7 g/dl (32-36); Mean Corpuscular Hemoglobin 30.9 pg (26-34); Mean Corpuscular Volume 91.6 fl (80-100); Mean Platelet Volume 8.2 fl (7.4-10.4); Monocytes Absolute Auto 0.7 K/mm3 (0.1-0.6); Monocytes Percent Auto 5.8 % (2.6-8.5); Neutrophils Absolute Auto 8.6 K/mm3 (1.3-6.7); Neutrophils Percent Auto 76.1 % (45.5-73.1); Platelet Count Result 265 k/mm3 (150-375); Red Blood Count 4.43 M/mm3 (4.2-5.4); Red Cell Distribution Width 13.5 % (11.5-14.5); White Blood Count 11.3 K/mm3 (4.5-10.0)
--- NOTE | 2024-10-02 20:00 | ED_ITS ---
HPI - Chest Pain General Chief Complaint: Chest Pain Stated Complaint: Chest pain -had ROSS at 0900 Time Seen by Provider: 10/02/24 19:36 History of Present Illness HPI narrative: Patient is a 63-year-old female presents to the ER with chest pain. Patient endorses left chest pain that radiates to her clavicle. She reports earlier today she had a ROSS and indicated severe aortic stenosis. Patient reports she has a cardiac catheterization scheduled for Sunday. After her ROSS patient reports she started experiencing midsternal chest pain. Patient reports the chest pain has subsided is at the time of examination. She endorses intermittent shortness of breath for several months. Patient endorses a history of gastric bypass surgery. Related Data Home Medications ?Medication ?Instructions ?Recorded ?Confirmed ?Last Taken ?Type B12 1,000 mcg PO DAILY 05/21/23 10/02/24 09/30/24 History Biotin Hyaluric Acid 10,000 mcg PO DAILY 05/21/23 10/02/24 09/30/24 History Iron 65 Mg W Vit C 270mg 65 mg PO DAILY 05/21/23 10/02/24 10/01/24 History lamotrigine 100 mg tablet 100 mg PO DAILY 02/23/24 10/02/24 10/01/24 History lorazepam 0.5 mg tablet 0.5 mg PO PRN PRN Anxiety 02/23/24 10/02/24 09/29/24 History calcium 315 mg (as 1 tablet PO DAILY 03/06/24 10/02/24 09/29/24 History citrate)-vitamin D3 5 mcg (200 unit) tablet (Calcium Citrate + D) cetirizine 10 mg tablet (Zyrtec) 10 mg PO DAILY 03/06/24 10/02/24 10/01/24 History melatonin 10 mg capsule 10 mg PO HS PRN Sleep 03/06/24 10/02/24 10/01/24 History acetaminophen 500 mg tablet 500 mg PO .PRN PRN pain 09/18/24 10/02/24 10/01/24 History gigymukq-fvcfzvkz-qieg 45 mg-folic 1 cap PO DAILY 09/18/24 10/02/24 10/01/24 History acid 800 mcg-vit K 120 mcg capsule (Bariatric Multivitamins) naproxen 250 mg tablet 250 mg PO .PRN PRN pain 09/18/24 10/02/2410/01/25 History omega-3 fatty acids 1 cap PO DAILY 09/18/24 10/02/24 10/01/24 History vitamin c 1000mg + Calc carbnt 52mg See Rx Instructions BYMOUTH 09/18/24 10/02/24 10/01/24 History .COMPLEX fluticasone propionate 50 2 spray intranasal DAILY 10/01/24 10/02/24 10/01/24 History mcg/actuation nasal spray,suspension methocarbamol 750 mg tablet See Rx Instructions .Route .COMPLEX 10/01/24 10/02/24 10/01/24 History Allergies Allergy/AdvReac Type Severity Reaction Status Date / Time Penicillins Allergy Intermediate Hives Verified 10/02/24 09:13 tetracycline Allergy Unknown Unknown Verified 10/02/24 09:13 amoxicillin (From Augmentin) Allergy Hives Verified 10/02/24 09:13 clavulanic acid (From Allergy Hives Verified 10/02/24 09:13 Augmentin) Review of Systems 2 Review of Systems: All systems reviewed & are unremarkable except as noted in HPI and below PMFSH Past Medical History Medical History Achilles tendinitis of left lower extremity Morbid obesity due to excess calories Tear of biceps muscle Obesity Peripheral neuropathy Restless leg syndrome Lumbosacral spondylosis Dorsalgia Low TSH level Thyrotoxicosis, unspecified with thyrotoxic crisis or storm Chronic post-traumatic stress disorder (PTSD) Hyperlipidemia Essential hypertension Depression Obstructive sleep apnea of adult Osteoarthritis Moderate aortic stenosis Anemia Cervical radiculopathy Vitamin D deficiency Anxiety Surgical History Surgical History History of left knee replacement Hx of appendectomy 08/27/2014 History of lumpectomy of left breast H/O abdominal hysterectomy With unilateral oophorectomy History of total right knee replacement (TKR) Hx of cardiac cath Nonobstructive CAD by cath 10/18/2010-normal m, cx. 30% LAD/RCA (per [facility]) H/O gastric bypass Social History Social History Smoking status: Never smoker Second hand tobacco smoke exposure: No Alcohol intake: never Drinks per week: 0 Alcohol use details: RARE, ONE A MONTH Substance use: never Substance use type: does not use Do You Feel Safe in your Home?: Yes Lack of Transportation: No Lack of Food: Sometimes True Current Housing: I Have Housing Concerned About Future Housing: YES Difficulty Paying Gas/Electric Bills: YES Difficulty Paying for Meds: No Currently Unemployed: No Education: Bachelor's Degree Difficulty w/ Childcare or Family Care: No Living arrangements: with family Spiritual care concerns: No Exam 2 Narrative: GENERAL: Well appearing, obese, non-toxic, in no acute distress. HEAD: Normocephalic, atraumatic. NECK: Supple. No adenopathy, no masses. RESPIRATORY: Airway patent, respirations mildly labored. Clear to auscultation bilaterally, no rales, rhonchi, wheezing. CARDIOVASCULAR: Regular rate and rhythm without murmurs, rubs, or gallops. Peripheral pulses 2+ and equal bilaterally. ABDOMINAL: Soft, nontender, nondistended, no hepatosplenomegaly. Normoactive BS. MUSCULOSKELETAL: Moves all extremities. Strength/ROM intact without gross deformities. SKIN: Warm, dry, normal color. No rashes. NEURO: A&O X3. Speech clear. Cranial nerves II-XII intact. No ataxic movements. PSYCHIATRIC: Appropriate mood and affect. Normal interaction. Course Vital Signs Vital signs: Vital Signs Temperature 36.8 C 10/02/24 16:43 Pulse Rate 73 10/02/24 16:43 Respiratory Rate 16 10/02/24 16:43 Blood Pressure 139/72 10/02/24 16:43 Pulse Oximetry 98 10/02/24 16:43 Oxygen Delivery Room Air 10/02/24 16:43 Temperature 36.8 C 10/02/24 16:43 Pulse Rate 84 10/02/24 23:42 Respiratory Rate 16 10/02/24 23:31 Blood Pressure 123/76 10/02/24 23:31 Pulse Oximetry 96 10/02/24 23:38 Oxygen Delivery Room Air 10/02/24 23:38 MDM - Chest Pain MDM Narrative Medical decision making narrative: Patient is a 63-year-old female presents to the ER with chest pain. Patient endorses left chest pain that radiates to her clavicle. She reports earlier today she had a ROSS and indicated severe aortic stenosis. Patient reports she has a cardiac catheterization scheduled for Sunday. After her ROSS patient reports she started experiencing midsternal chest pain. Patient reports the chest pain has subsided is at the time of examination. She endorses intermittent shortness of breath for several months. Patient endorses a history of gastric bypass surgery. Labs Ordered: CBC, CMP, troponin, D-dimer, lipase, proBNP, INR Imaging Ordered: CT chest/abdomen/pelvis, chest x-ray Medications Ordered: GI Cocktail (pt's sore throat following ROSS), Nitro SL, Lasix 40mg IV Results: Patient's CT scan indicates Findings within the chest suggesting pulmonary vascular congestion. No acute pathology within the abdomen or pelvis, as detailed above. Diagnosis: Pulmonary vascular congestion, atypical chest pain Risks: HEART score: high risk HEART Pathway for Early Discharge in Acute Chest Pain from [employer] on 10/03/2024 All calculations should be rechecked by clinician prior to use RESULT SUMMARY: 4 points HEART Pathway Score High risk 12-65% 30-day MACE Admit to hospital or observation. Further testing indicated. INPUTS: History ?> 1 = Moderately suspicious EKG ?> 1 = Non-specific repolarization disturbance Age ?> 1 = 45-64 Risk factors ?> 1 = 1-2 risk factors Initial troponin ?> 0 = <=Normal limit Consults: cardiology (Gopal), Dr. Herron reports pt does not need to stay in the hospital from his perspective. Patient Education/Shared MDM: Results of lab work and imaging shared with patient. She endorses improvement of her sore throat following GI cocktail and chest pain following Nitro SL administration. Pt reports she would prefer to go home instead of being admitted.7 Patient strongly advised to maintain hydration status upon discharge and follow-up with her zone supervisor firearms for a cardiac catheter on Sunday, as planned. She will be discharged home with a prescription for Nitro SL. Strict return precautions provided, especially if pt's chest pain isn't relieved by a Nitro SL. Patient verbalized understanding is in agreement with plan. Vital signs stable at time of discharge. All questions answered. Differential Diagnosis Differential diagnosis: Likely stable angina, atypical chest pain, st elevation myocardial infarction, costochondritis, chest pain and other (GERD, pulmonary embolism) Lab Data Attestation: I reviewed the patient's lab results. 10/02/24 19:45 10/02/24 19:45 Labs: Lab Results 10/02/24 10/02/24 Range/Units 19:45 22:58 WBC 11.3 H (4.5-10.0) K/mm3 RBC 4.43 (4.2-5.4) M/mm3 Hgb 13.7 (12.0-15.0) g/dL Hct 40.6 (37.0-47.0) % MCV 91.6 (80-100) fl MCH 30.9 (26-34) pg MCHC 33.7 (32-36) g/dl RDW 13.5 (11.5-14.5) % Plt Count 265 (150-375) k/mm3 MPV 8.2 (7.4-10.4) fl Immature Gran % (Auto) 0.4 (0-0.5) % Neut % (Auto) 76.1 H (45.5-73.1) % Lymph % (Auto) 14.3 L (18.3-44.2) % Stanton % (Auto) 5.8 (2.6-8.5) % Eos % (Auto) 2.9 (0-4.4) % Baso % (Auto) 0.5 (0.2-1.2) % Lymph # (Auto) 1.61 (0.9-3.2) K/mm3 Stanton # (Auto) 0.7 H (0.1-0.6) K/mm3 Eos # (Auto) 0.3 (0-0.3) K/mm3 Baso # (Auto) 0.1 (0.0-0.1) K/mm3 Abs Immat Gran (auto) 0.04 H (0.00-0.031) K/mm3 Absolute Neuts (auto) 8.6 H (1.3-6.7) K/mm3 Absolute Nucleated RBC 0.000 (0.0-0.012) K/mm3 Nucleated RBC % 0.0 (0.0-0.2) % PT 13.8 (11.1-14.7) Seconds INR 1.0 APTT 24.0 (22.3-36.8) Seconds D-Dimer < 0.27 (<0.48) ug/mL Sodium 139 (137-145) mmol/L Potassium 4.2 (3.4-5.0) mmol/L Chloride 105 (98-107) mmol/L Carbon Dioxide 23 (22-30) mmol/L Anion Gap 11 (4-12) mmol/L BUN 18 H (7-17) mg/dL Creatinine 0.74 (0.7-1.0) mg/dL Estim Creat Clear Calc 90 ml/min Estimated GFR > 60 (59 - ) Glucose 112 H (65-110) mg/dL Calcium 9.1 (8.4-10.2) mg/dL Total Bilirubin 0.6 (0.2-1.3) mg/dL AST 24 (14-36) U/L ALT 27 (6-35) U/L Alkaline Phosphatase 67 (38-126) U/L Troponin I < 0.012 < 0.012 (0.000-0.034) ng/mL NT-Pro-B Natriuret Pep 656 H (19.9-100) pg/mL Total Protein 7.0 (6.3-8.2) g/dL Albumin 4.5 (3.5-5.1) g/dL Lipase 752 H (23-300) U/L Imaging Data Attestation: I personally reviewed and interpreted this imaging study as follows: Radiologist's impression: Impressions Chest X-Ray 10/02/24 16:57 IMPRESSION: No focal infiltrate or effusion. Chest/Abdomen/Pelvis CT 10/02/24 21:52 IMPRESSION: Findings within the chest suggesting pulmonary vascular congestion. No acute pathology within the abdomen or pelvis, as detailed above. Discharge Plan Discharge Clinical Impression: Atypical chest pain, Pulmonary congestion, Chest pain Patient Disposition: Home, Self-Care Condition: Guarded Prognosis Instructions: Antibiotic Form, Angina (ED), Chest Pain (ED) Additional Instructions: Please return to the ER with any worsening symptoms. Follow-up on Sunday with your zone supervisor firearms as previously scheduled. Take all medications as prescribed, including regularly scheduled medications. Patient Language: Austrian Prescriptions: New nitroglycerin 0.4 mg tablet, sublingual 0.4 mg sublingual Q5-15M PRN (Reason: chest pain) Qty: 10 0RF Rx Instructions: do not exceed 3 doses per episode No Action B12 1,000 mcg PO DAILY Biotin Hyaluric Acid 10,000 mcg PO DAILY Iron 65 Mg W Vit C 270mg 65 mg PO DAILY cetirizine [Zyrtec] 10 mg Tablet 10 mg PO DAILY calcium citrate-vitamin D3 [Calcium Citrate + D] 315 mg-5 mcg (200 unit) Tablet 1 tablet PO DAILY melatonin 10 mg Capsule 10 mg PO HS PRN (Reason: Sleep) lorazepam 0.5 mg tablet 0.5 mg PO PRN PRN (Reason: Anxiety) lamotrigine 100 mg tablet 100 mg PO DAILY bupropion HCl [Wellbutrin SR] 100 mg tablet sustained-release 12 hr 100 mg PO BID Qty: 180 1RF duloxetine 60 mg capsule,delayed release(DR/EC) 60 mg PO DAILY Qty: 90 1RF vitamin c 1000mg + Calc carbnt 52mg See Rx Instructions BYMOUTH .COMPLEX Rx Instructions: 1 orally; acetaminophen 500 mg tablet 500 mg PO .PRN PRN (Reason: pain) naproxen 250 mg tablet 250 mg PO .PRN PRN (Reason: pain) Bariatric Multivitamins 45 mg iron- 800 mcg-120 mcg capsule 1 cap PO DAILY omega-3 fatty acids [Partridge-3] 1 cap PO DAILY methocarbamol 750 mg tablet See Rx Instructions .ROUTE .COMPLEX Rx Instructions: TAKE 1 TABLETS BY MOUTH Two TIMES DAILY fluticasone propionate 50 mcg/actuation spray,suspension 2 spray intranasal DAILY Rx Instructions: administer into each nostril omeprazole 40 mg capsule,delayed release(DR/EC) 40 mg PO DAILY Qty: 90 1RF atorvastatin 80 mg tablet 80 mg PO QHS Qty: 90 1RF pregabalin 50 mg capsule 50 mg PO BID Qty: 180 1RF valsartan 80 mg tablet See Rx Instructions .ROUTE .COMPLEX Qty: 90 2RF Dose Instruction: Take 1 tablet by mouth once daily Rx Instructions: Take 1 tablet by mouth once daily Follow-up/Referrals: Pacheco Mejia, [Primary Care Provider] -
--- OUTSIDE RECORDS SUMMARY | 2024-10-02 20:04 | XMS_ITS | Continuity of Care Document ---
Author Name [facility] Address [address] [place] [address] Organization [facility] Care Team Providers Care Book Reviewer Name Role Phone [facility] Unavailable Unavailable Problems Problem Status [...] Patient LIONEL JOSHI Gender Female Name [facility] Number [id number] Date of Study 10/07/2018 Attending Physician Marcell Perez MD Visit [id number] Care Trainer See Blari, [facility] Number Date of 1960 Interpreting Andrew [...] Root: 2.88 cm LVOT Diameter: 1.77 cm CD:[email or web address] [email or web address] HNAM URL Echo Transthoracic Complete Transthoraci c Echocardiography Report (TTE) Demographics Patient Name LIONEL JOSHI Gender Female [facility] Number [id number] Date of Study 01/11/2017 Referring Physician Visit Number [id number] Care Trainer Anthony Vallejo Date of 1960 Interpreting [place] [...] Provider ADM Date DC Date Status Source [facility] Between Visit [id number] 05/16 23:59 :59 Discharg ed [facility] S[facility] Between Visit [id number] 04/02 23:59 :59 Discharg ed [facility] Family [facility] MOO MOO CLAUDIA OUTPATIENT [id number] R HAND 5TH MC FX Ravinder Toedebusch [facility] OUTPATIENT [id number] RT HAND FX 1WK FU Ravinder Toedebusch C[facility] MOO MOO [facility] OUTPATIENT [id number] CAST CHANGE-TO O TIGHT C[facility] EFCC [facility] OUTPATIENT [id number] 4WK F/U Zihao Casillas [facility] Anc[facility] OUTPATIENT [id number] 4WK F/U Zihao Casillas C[facility] Ancillar ies [facility] OUTPATIENT [id number] annual check up Lavern Xavier Cancel [facility] Blue [facility] OUTPATIENT [id number] MSWL PER DR. DARIEL Finch Cancel [facility] FBL [facility] OUTPATIENT [id number] 2 MO F/U Lavern Kolker C[facility] OUTPATIENT [id number] fu Lavern Kolker [facility] FBL [facility] OUTPATIENT [id number] 2 MO F/U Lavern Kolker Cancel [facility] OUTPATIENT [id number] MSWL PER DR. DARIEL Molina Josette Cancel [facility] OUTPATIENT [id number] F/U MSWL Tracy Josette Cancel [facility] FBL FBL NO TECHBILL [id number] [phone] - 3 MONTH F/U Lavern Kolker C[facility] DIAGNOSTIC TEST [id number] LANE pre-op John Paul Viera Cancel [facility] FGL FGL OUTPATIENT [id number] 6-8 WEEK F/U Cancel [facility] FGL [facility] OUTPATIENT [id number] MEDS MAKING PT DIZZY Cancel [facility] FGL [facility] OUTPATIENT [id number] medicatio n titration Cancel [facility] FBL [facility] OUTPATIENT [id number] cold symptoms Brionna Tomer Cancel [facility] OUTPATIENT [id number] CLASS: 1 MO 04/20/15 Rajan Rodriguez Cancel [facility] OUTPATIENT [id number] CLASS: 3 MO 04/20/15 Rajan Rodriguez Cancel [facility] OUTPATIENT [id number] CLASS: 1 [place] 04/20/15 Rajan Rodriguez Cancel [facility] OUTPATIENT [id number] CONSULT LARGE MONS PUBIS-POS S INS See Karen Cancel [facility] MOO MOO CLAUDIA OUTPATIENT [id number] PRE DOS 01/13 FLIP CLAUDIA L KNEE Juan Carlos Danielson C[facility] FGR [facility] OUTPATIENT [id number] wouned infected Guy Kwok Cancel [facility] DIAGNOSTIC TEST [id number] right proximal hamstring tendon tear Mohammad Arian Cancel [facility] THERAPY SERIES [id number] John Paul Viera Cancel [facility] DIAGNOSTIC TEST [id number] right proximal hamstring tendon tear Sid Don [facility] OUTPATIENT [id number] SOV: 3 OF 3(MEDICAR E) John Paul Viera Cancel [facility] OUTPATIENT [id number] SOV: 3 OF 3(MEDICAR E) John Paul Stephensller Cancel [facility] OUTPATIENT [id number] CLASS: YEARLY RYGB 04/20/15 Gonzales Medina Cancel [facility] DIAGNOSTIC TEST [id number] OSTEOARTH RITIS/ RIGHT KNEE PAIN Kyle Valentine 05/08 15:38 :23 Cancel [facility] OUTPATIENT [id number] 1 YEAR F/U Jacob Flip Cancel [facility] DIAGNOSTIC TEST [id number] Olimpia Huizar Cancel [facility] FPA FPA NO TECHBILL [id number] consultat ion Nyla Gov-Jake Cancel [facility] [employer] [facility] DIAGNOSTIC TEST [id number] arm paresthes ia Boris Moore Cancel [facility] FGR FGR OUTPATIENT [id number] whole-danielle nt based diet, per Dr. Gurwinder Goncalves-Erika unek Cancel [facility] FPG FPG OUTPATIENT [id number] six wks 09/04 16:08 :33 Cancel [employer] [facility] OUTPATIENT [id number] 6WK FOLLOW UP LT KNEE REV Jacob Flip Cancel [facility] OUTPATIENT [id number] CLASS: YEARLY RYGB 04/20/15 Cancel [facility] MOO MOO CLAUDIA OUTPATIENT [id number] 1 YEAR F/U Jacob Castelan Cancel [facility] [place] OUT[place] [id number] MOLE REMOVAL, ADHESION INJ Bre Wong Cancel [facility] OUTPATIENT [id number] 2 WK F/U PER PT Cancel [facility] FGL FGL OUTPATIENT [id number] CHECK SURGICAL WOUND Cancel [facility] MOO MOO CLAUDIA DIAGNOSTIC TESTING [id number] left leg anterior swelling Rowdy Bryant Cancel [facility] FPA [facility] NO TECHBILL [id number] BHC Cancel [facility] OUTPATIENT [id number] Possible UTI and mole removal (2) Cancel [facility] F[facility] OUTPATIENT [id number] UTI Alma Xiomara Cancel [facility] [id number] UTI Alma Xiomara Cancel [facility] [place] OUT[facility] [id number] GENERAL EYE EXAM Enrike Rivera C[facility] OUTPATIENT [id number] er f/u Nyla Gov-Jake Cancel [facility] [place] OUT[place] [id number] 6 HYOERTROP HIC SCAR Nidhi Jennings Cancel [facility]
--- OUTSIDE RECORDS SUMMARY | 2024-10-02 20:04 | XMS_ITS | Clinical Summary ---
Author Organization [facility] Elaine Cunha Address [address] [place] [address] Care Team Providers Care Cartridge Gauger Name Role Phone GlynnPacheco michelle Ravinder BILLS [...] bedtime. Active fluticasone propionate (FLONASE) 50 mcg/spray [place], Suspension nasal inhaler USE 2 SPRAY(S) IN [...] Comments Blood Pressure 129/70 05/30/2023 10:21 AM DATA ANALYST Pulse 93 05/30/2023 10:21 AM DATA ANALYST Temperature 35.7 C (96.2 F) 05/30/2023 10:21 AM DATA ANALYST Respiratory Rate 12 05/30/2023 10:21 AM DATA ANALYST Oxygen Saturation 96% 05/30/2023 10:21 AM DATA ANALYST Inhaled Oxygen Concentration - - Weight 134.3 kg (296 lb) 05/30/2023 10:21 AM DATA ANALYST Height 160 cm (5' 3 ) 05/30/2023 10:21 AM DATA ANALYST Body Mass Index 52.43 05/30/2023 10:21 AM DATA ANALYST Plan of Treatment Health Maintenance Due Date [...] age to complete this topic Insurance [facility] MEDICAID [place] Care Teams Cartridge Gauger Relationship Specialty Start Date End Date Pacheco Mejia DO [address] [place] [address] PCP - General Internal Medicine 02/16/23
--- OUTSIDE RECORDS SUMMARY | 2024-10-02 20:04 | XMS_ITS | Continuity of Care Document ---
Author Organization [facility] Address [address] [place] [address] Phone Care Team Providers Care Sewer Pipe Press Operator Name Role Phone Nish Ramos Unavailable Unavailable [...] Date Provider Providers Copied on Encounter [facility], [address] [address], [place], [place], [id number], tel:[phone] [place] No Information 3 Bhupinder Mock. . [facility], [id number], tel:[phone] [place] No Information 3 Bhupinder Mock. . Referring Provider: Alessandra Alston, [address], [place], [address]. tel:[phone] [facility], [address], [place], [place], [address], tel:[phone] [place] No Information 3 Bhupinder Mock. . Referring Provider: Alessandra Alston, [address], [place], [address]. tel:[phone] Family History Family Member Type Diagnosis Age At Onset No Information Payers Payer name Insurance type Covered constitution party ID Tonya sanchez(s) [employer] CI [id number] Social History Type Description Quantity Date Captured [...]
--- OUTSIDE RECORDS SUMMARY | 2024-10-02 20:04 | XMS_ITS | Referral Summary ---
Author Organization [facility] Address [address] [place] [address] Phone Care Team Providers Care Community Service Organization Director Name Role Phone Pacheco Mejia DO Primary Care Provider [phone] Encounters Date Type Department Care Team Description 09/24/2024 Telephone [facility] Cardiology [address] [place] [address] Salomon Sargent MD from Last [...] on file Legal Sex Female 3:02 PM EGG AND SPICE MIXER Gender Identity Female 01/25/2023 3:47 PM CDT [...] Not on file Insurance HEALTHCARE HEALTHCARE [facility] Care Teams Community Service Organization Director Relationship Specialty Start Date End Date Pacheco Mejia DO PCP - General Internal Medicine 01/22/23
--- OUTSIDE RECORDS SUMMARY | 2024-10-02 20:05 | XMS_ITS | Clinical Summary ---
Author Organization [facility] Address [address] [place] [address] Phone Care Team Providers Care Core Winder Machine Operator Name Role Phone Pacheco Mejia DO Primary Care Provider [phone] Allergies Active Allergy Reactions Criticality Noted Date [...] Type Department Care Team Description 09/24/2024 Telephone [facility] Medical Group Cardiology [address] [place] [address] Salomon Sargent MD from Last [...] on file Legal Sex Female 3:02 PM AGRISCIENCE INSTRUCTOR Gender Identity Female 01/25/2023 3:47 PM CDT [...] HEALTHCARE HEALTHCARE [facility] Care Teams Core Winder Machine Operator Relationship Specialty Start Date End Date Pacheco Mejia DO PCP - General Internal Medicine 01/22/23
[2024-10-02 20:06] LABS: Alanine Aminotransferase 27 U/L (6-35); Albumin Level 4.5 g/dL (3.5-5.1); Alkaline Phosphatase 67 U/L (38-126); Anion Gap 11 mmol/L (4-12); Aspartate Amino Transferase 24 U/L (14-36); Bilirubin,Total 0.6 mg/dL (0.2-1.3); Blood Urea Nitrogen 18 mg/dL (7-17); Calcium 9.1 mg/dL (8.4-10.2); Carbon Dioxide 23 mmol/L (22-30); Chloride 105 mmol/L (98-107); Estimated CRCL calculation 90 ml/min; Estimated Glomerular Filt Rate > 60; Glucose 112 mg/dL (65-110); Lipase 752 U/L (23-300); Potassium 4.2 mmol/L (3.4-5.0); Sodium 139 mmol/L (137-145)
[2024-10-02 20:12] LABS: Prothrombin Time 13.8 Seconds (11.1-14.7)
[2024-10-02 20:17] LABS: Troponin I < 0.012 ng/mL (0.000-0.034)
[2024-10-02 20:27] LABS: D Dimer < 0.27 ug/mL (<0.48)
[2024-10-02 20:44] LABS: NT Pro B Type Natriuretic Pept 656 pg/mL (19.9-100)
[2024-10-02] MEDS: ACETAMINOPHEN 500 MG TABLET 1000 MG PO (21:13)
--- NOTE | 2024-10-02 22:41 | ECG_ITS ---
Test Date: 2024-10-02 23:06:55 Measurements Intervals [place] Rate: 81 P: 59 [place]: 206 QRS: -31 QRSD: 112 T: 95 QT: 381 QTc: 442 Interpretive Statements SINUS RHYTHM POSSIBLE LEFT ATRIAL ENLARGEMENT [-0.1mV P-WAVE IN V1/V2] LEFT AXIS DEVIATION [QRS AXIS < -30] INCOMPLETE RIGHT BUNDLE BRANCH BLOCK [90+ ms QRS DURATION, TERMINAL R IN V1/V2, 40+ ms S IN I/aVL/V4/V5/V6] LEFT VENTRICULAR HYPERTROPHY AND ST-T CHANGE [VOLTAGE CRITERIA PLUS ST/T ABNORMALITY] Compared to ECG 10/02/2024 16:32:59 No significant changes Electronically Signed On 10-03-2024 18:28:58 CDT by Amari Crowe M.D.
[2024-10-02] MEDS: BELLADONNA ALK/PHENOB ELIX 10 ML, MAG HYDROX/ALUMINUM HYD/SIMETH 30 ML, LIDOCAINE 2% VI... PO (22:53)
[2024-10-02] MEDS: NITROGLYCERIN SL 0.4 MG TABLET SUBLINGUAL (23:23)
[2024-10-02] MEDS: FUROSEMIDE INJ 40 MG/4 ML VIAL IV PUSH (23:25)
[2024-10-02 23:28] LABS: Troponin I < 0.012 ng/mL (0.000-0.034)
[2024-10-03 00:01] VITALS: BP 108/58; PULSE 78; RESP 22; O2SAT 95
[2024-10-03 01:16] VITALS: BP 112/54; PULSE 76; RESP 17; O2SAT 98
== END 2024-10-03 01:17 | disposition home or self-care (01) ==
PROVIDERS: Emergency Medicine; Emergency Provider Registered Nurse; PCP Internal Medicine
DX: R07.89 Other chest pain (principal); R09.89 Other specified symptoms and signs involving the circulatory and respiratory systems; Z98.84 Bariatric surgery status; E78.5 Hyperlipidemia, unspecified; I10 Essential (primary) hypertension; G47.33 Obstructive sleep apnea (adult) (pediatric); E55.9 Vitamin D deficiency, unspecified; Z96.653 Presence of artificial knee joint, bilateral; I35.0 Nonrheumatic aortic (valve) stenosis
CPT/HCPCS: 36415; 71046; 71260; 74177; 80053; 83690; 83880; 84484; 85025; 85380; 85610; 85730; 93005; 93312; 93320; 93325; 96374; 99284; A9270; J1940; J2250; J3010; J7040; Q9967

== ENCOUNTER 2024-10-06 01:02 | Day surgery (SDC) | payer OTHER, MEDICAID, SELFPAY ==
[2024-10-06] VITALS (14 sets, daily range): BP systolic 110–148; BP diastolic 66–87; PULSE 66–115; RESP 12–19; TEMP 36.4; O2SAT 93–98; BMI 51.1
--- OUTSIDE RECORDS SUMMARY | 2024-10-06 01:06 | XMS_ITS ---
Author Organization [facility] Address [facility] [address] [place] [address] Care Team Providers Care Elevator Repair Mechanic Name Role Phone Pacheco Mejia DO Primary Care Provider Lakisha Sultana Unavailable [phone] REASON FOR VISIT Reschedule Social History Sex Assigned At : Social History Observation Description Sex Assigned At Female Encounters Encounter Location Date Provider Diagnosis [facility] [employer] [place] [address] [facility] [address] [address] 09/29/2024 Lakisha Parra Plan Of Treatment Next Appt Details Provider Name:Berkley Barnhart , 10/20/2024 01:00:00 PM, [facility], [address], [address], Provider Name:Lakisha mderano, 10/20/2024 02:45:00 PM, [facility] [address], [address], Provider Name:Berkley Barnhart , 11/03/2024 04:00:00 PM, [facility] [address], [facility] [address], [address], Provider Name:Berkley Barnhart , 11/17/2024 01:00:00 PM, [facility] [address], [address], Progress Notes * ADI FLOWERS MDOB: 3 (63 yo F)Acc No.[id number]:09/29/2024 Patient: ADI DAVEY :1960 A ge:63 Y S ex:Female Address:[address] [place] [address] * true * Date: Generated for Irma sweeney/Geronimo/Cosmoitting on: 0 10/06/2024 01:06 AM CDT
--- OUTSIDE RECORDS SUMMARY | 2024-10-06 01:06 | XMS_ITS | Continuity of Care Document ---
Author Organization [facility] Address [address] [place] [address] Phone Care Team Providers Care Service Learning Coordinator Name Role Phone Nish Ramos Unavailable Unavailable [...] Provider Providers Copied on Encounter [facility], [address] [address], [place], [place], [id number], tel:[phone] [place] No Information [address] Bh[address] . [facility], [id number], tel:[phone] [place] No Information 3 Bhupinder Mock. . Referring Provider: Alessandra Alston, [address], [place], [address]. tel:[phone] [facility], [address], [place], [place], [id number], tel:[phone] [place] No Information 3 Bhupinder Mock. . Referring Provider: Alessandra Alston, [address], [place], [address]. tel:[phone] Family History Family Member Type Diagnosis Age At Onset No Information Payers Payer name Insurance type Covered libertarian ID Tonya sanchez(s) [employer] CI [id number] Social History Type Description Quantity Date Captured [...]
--- OUTSIDE RECORDS SUMMARY | 2024-10-06 01:06 | XMS_ITS | Continuity of Care Document ---
Author Name [facility] Address [address] [place] [address] Organization [facility] Care Team Providers Care Eyeglass Assembler Name Role Phone [facility] Unavailable Unavailable Problems Problem Status Onset [...] Patient LIONEL JOSHI Gender Female Name [facility] Number [id number] Date of Study 10/07/2018 Attending Physician Marcell Perez MD Visit [id number] Air Compressor Operator See Blair, [facility] Number Date of 1960 Interpreting Andrew [...] Root: 2.88 cm LVOT Diameter: 1.77 cm CD:[email or web address] HNAM URL Echo Transthoracic Complete Transthoraci c Echocardiography Report (TTE) Demographics Patient Name LIONEL JOSHI Gender Female [facility] Number [id number] Date of Study 01/11/2017 Referring Physician Visit Number [id number] Air Compressor Operator Anthony Vallejo Date of 1960 Interpreting [place] [...] Provider ADM Date DC Date Status Source [facility] Between Visit [id number] 05/16 23:59 :59 Discharg ed [facility] Between Visit [id number] 04/02 23:59 :59 Discharg ed [facility] Family Medicine MOO MOO CLAUDIA OUTPATIENT [id number] R HAND 5TH MC FX Ravinder Toedebusch Cancel [facility] M[facility] MOO [facility] OUTPATIENT [id number] RT HAND FX 1WK FU Ravinder Toedebusch Cancel [facility] MOO MOO [facility] OUTPATIENT [id number] CAST CHANGE-TO O TIGHT C[facility] OUTPATIENT [id number] 4WK F/U Zihao Casillas [facility] OUTPATIENT [id number] 4WK F/U Zihao Casillas C[facility] OUTPATIENT [id number] annual check up Lavern Xavier Cancel [facility] Blue [facility] OUTPATIENT [id number] MSWL PER DR. DARIEL Finch Cancel [facility] FBL [facility] OUTPATIENT [id number] 2 MO F/U Lavern Kolker C[facility] OUTPATIENT [id number] fu Lavern Kolker [facility]ancel [facility] [id number] 2 MO F/U Lavern Kolker Cancel [facility] OUTPATIENT [id number] MSWL PER DR. DARIEL Molina Josette Cancel [facility] OUTPATIENT [id number] F/U MSWL Tracy Josette Cancel [facility] FBL FBL NO TECHBILL [id number] [phone] 3 MONTH F/U Lavern Kolker C[facility] DIAGNOSTIC TEST [id number] LANE pre-op John Paul Viera Cancel [facility] FGL FGL OUTPATIENT [id number] 6-8 WEEK F/U C[facility] FGL [facility] OUTPATIENT [id number] MEDS MAKING PT DIZZY Cancel [facility] FGL [facility] OUTPATIENT [id number] medicatio n titration Cancel [facility] FBL [facility] OUTPATIENT [id number] cold symptoms Brionna Tomer Cancel [facility] OUTPATIENT [id number] CLASS: 1 MO 04/20/15 Rajan Rodriguez Cancel [facility] OUTPATIENT [id number] CLASS: 3 MO 04/20/15 Rajan Rodriguez Cancel [facility] OUTPATIENT [id number] CLASS: 1 MO 04/20/15 Rajan Rodriguez Cancel [facility] CHRISTOPHER CHRISTOPHER OUTPATIENT [id number] CONSULT LARGE MONS PUBIS-POS S INS See Karen Cancel [facility] MOO MOO CLAUDIA OUTPATIENT [id number] PRE DOS 01/13 FLIP CLAUDIA L KNEE Juan Carlos Danielson Cancel [facility] FGR [facility] OUTPATIENT [id number] wouned infected Guy Kwok Cancel [facility] DIAGNOSTIC TEST [id number] right proximal hamstring tendon tear Mohammad Arian Cancel [facility] THERAPY SERIES [id number] John Paul Viera Cancel [facility] DIAGNOSTIC TEST [id number] right proximal hamstring tendon tear Sid Don C[facility] OUTPATIENT [id number] SOV: 3 OF 3(MEDICAR E) John Paul Viera Cancel [facility] OUTPATIENT [id number] SOV: 3 OF 3(MEDICAR E) John Paul Stephensller Cancel [facility] OUTPATIENT [id number] CLASS: YEARLY RYGB 04/20/15 Gonzales Medina Cancel [facility] DIAGNOSTIC TEST [id number] OSTEOARTH RITIS/ RIGHT KNEE PAIN Kyle Valentine 05/08 15:38 :[address] [facility] OUTPATIENT [id number] 1 YEAR F/U Jacob Flip Cancel [facility] DIAGNOSTIC TEST [id number] Olimpia Huizar Cancel [facility] FPA FPA NO TECHBILL [id number] consultat ion Nyla Gov-Jake Cancel [facility] DIAGNOSTIC TEST [id number] arm paresthes ia Boris Moore Cancel [facility] FGR FGR OUTPATIENT [id number] whole-danielle nt based diet, per Dr. Gurwinder Goncalves-Erika unek Cancel [facility] Med Green FPG FPG OUTPATIENT [id number] six wks 09/04 16:08 :33 Cancel [employer] [facility] OUTPATIENT [id number] 6WK FOLLOW UP LT KNEE REV Jacob Flip Cancel [facility] OUTPATIENT [id number] CLASS: YEARLY RYGB 04/20/15 Cancel [facility] MOO MOO CLAUDIA OUTPATIENT [id number] 1 YEAR F/U Jacob Castelan Cancel [facility] [place] OUT[place] [id number] MOLE REMOVAL, ADHESION INJ Bre Wong Cancel [facility] OUTPATIENT [id number] 2 WK F/U PER PT Cancel [facility] FGL FGL OUTPATIENT [id number] CHECK SURGICAL WOUND Cancel [facility] Med Gold MOO MOO CLAUDIA DIAGNOSTIC TESTING [id number] left leg anterior swelling Rowdy Bryant Cancel [facility] FPA [facility] NO TECHBILL [id number] BHC Cancel [facility] OUTPATIENT [id number] Possible UTI and mole removal (2) Cancel [facility] F[facility] OUT[facility] [id number] UTI Alma Xiomara Cancel [facility] [id number] UTI Alma Xiomara Cancel [facility] [place] [id number] GENERAL EYE EXAM Enrike Rivera [facility] OUTPATIENT [id number] er f/u Nyla Gov-Jake Cancel [facility] [place] OUTPATIENT [id number] 6 HYOERTROP HIC SCAR Nidhi Jennings Cancel [facility]
--- OUTSIDE RECORDS SUMMARY | 2024-10-06 01:07 | XMS_ITS ---
Author Organization [facility] [employer] [facility] Address [facility] [address] [place] [address] Care Team Providers Care Enlisted Advisor Name Role Phone Pacheco Mejia DO Primary Care Provider Lakisha Sultana Unavailable [phone] REASON FOR VISIT RE:Reschedule Social History Sex Assigned At : Social History Observation Description Sex Assigned At Female Encounters Encounter [facility] [place] [address] [facility] [address] [address] 09/30/2024 Lakisha Parra Plan Of Treatment Next Appt Details Provider Name:Berkley Barnhart , 10/20/2024 01:00:00 PM, [facility] [address], [address], [address], Provider Name:Lakisha medrano, 10/20/2024 02:45:00 PM, [facility] [address], [address], Provider Name:Berkley Barnhart , 11/03/2024 04:00:00 PM, [facility] [address], [address], Provider Name:Berkley Barnhart , 11/17/2024 01:00:00 PM, [facility] [address], [address], Progress Notes * ADI FLOWERS MDOB: 3 (63 yo F)Acc No.[id number]:09/30/2024 Patient: ADI DAVEY :1960 A ge:63 Y S ex:Female Address:[address] [place] [address] * true * Date: Generated for Irma sweeney/Geronimo/Carmenransmitting on: 0 10/06/2024 01:06 AM CDT
--- OUTSIDE RECORDS SUMMARY | 2024-10-06 01:07 | XMS_ITS | Clinical Summary ---
Author Organization [facility] Elaine Cunha Address [address] [place] [address] Care Team Providers Care Navy Fighter Pilot Name Role Phone GlynnPacheco michelle Ravinder BILLS [...] bedtime. Active fluticasone propionate (FLONASE) 50 mcg/spray [place], Suspension nasal inhaler USE 2 SPRAY(S) IN [...] Comments Blood Pressure 129/70 05/30/2023 10:21 AM TAXI DRIVER SUPERVISOR Pulse 93 05/30/2023 10:21 AM TAXI DRIVER SUPERVISOR Temperature 35.7 C (96.2 F) 05/30/2023 10:21 AM TAXI DRIVER SUPERVISOR Respiratory Rate 12 05/30/2023 10:21 AM TAXI DRIVER SUPERVISOR Oxygen Saturation 96% 05/30/2023 10:21 AM TAXI DRIVER SUPERVISOR Inhaled Oxygen Concentration - - Weight 134.3 kg (296 lb) 05/30/2023 10:21 AM TAXI DRIVER SUPERVISOR Height 160 cm (5' 3 ) 05/30/2023 10:21 AM TAXI DRIVER SUPERVISOR Body Mass Index 52.43 05/30/2023 10:21 AM TAXI DRIVER SUPERVISOR Plan of Treatment Health Maintenance Due [...] patient's age to complete this topic Insurance [facility] MEDICAID [place] Care Teams Navy Fighter Pilot Relationship Specialty Start Date End Date Pacheco Mejia DO [address] [place] [address] PCP - General Internal Medicine 02/16/23
--- OUTSIDE RECORDS SUMMARY | 2024-10-06 01:07 | XMS_ITS | Referral Summary ---
Author Organization [facility] Address [address] [place] [address] Phone Care Team Providers Care Glass Pulverizer Equipment Operator Name Role Phone Pacheco Mejia DO Primary Care Provider [phone] Encounters Date Type Department Care Team Description 09/24/2024 Telephone [facility] Cardiology [address] [place] [address] Salomon Sargent MD from Last [...] on file Legal Sex Female 3:02 PM DISTILLERY MILLER Gender Identity Female 01/25/2023 3:47 PM CDT [...] Not on file Insurance [facility]ALTHCARE HE[facility]CARE [facility] Care Teams Glass Pulverizer Equipment Operator Relationship Specialty Start Date End Date Pacheco Mejia DO PCP - General Internal Medicine 01/22/23
--- OUTSIDE RECORDS SUMMARY | 2024-10-06 01:07 | XMS_ITS | CONTINUITY OF CARE DOCUMENT ---
Author Name harry mcdonald Address Unknown Organization [facility] Address [address] [place] [address] [place] [address] Phone [phone] Care Team Providers Care Invoicing Machine Operator Name Role Phone Melanie Carter MD Unavailable Melanie Carter MD Unavailable INSURANCE PROVIDERS Payer name Policy type / Coverage type Devon red republican ID [employer] HMO Other
--- OUTSIDE RECORDS SUMMARY | 2024-10-06 01:07 | XMS_ITS | Clinical Summary ---
Author Organization [facility] Address [address] [place] [address] Phone Care Team Providers Care Applications Administrator Name Role Phone Pacheco Mejia DO Primary Care Provider [phone]- [phone] Allergies Active Allergy Reactions Criticality Noted Date [...] Type Department Care Team Description 09/24/2024 Telephone [facility] Cardiology [address] [place] [address] Salomon Sargent MD from Last [...] on file Legal Sex Female 3:02 PM OFFICE SERVICES SPECIALIST Gender Identity Female 01/25/2023 3:47 PM CDT [...] to complete this topic Insurance [facility] Care Teams Applications Administrator Relationship Specialty Start Date End Date Pacheco Mejia DO PCP - General Internal Medicine 01/22/23
--- OUTSIDE RECORDS SUMMARY | 2024-10-06 01:07 | XMS_ITS ---
Author Organization [facility] Address [address] [address] Care Team Providers Care Quality Assurance Lead Name Role Phone Pacheco Mejia DO Primary Care Provider Lakisha Sultana Unavailable [phone] Berkley Barnhart Unavailable [phone] Allergies Allergen (clinical drug ingredient) Drug/Non Drug Allergy documented on EMR Reaction Allergy Type Onset Date Status amoxicillin / clavulanate Augmentin Unknown Drug Allergy 11/19/2023 Active Substance with penicillin structure and antibacterial mechanism of action (substance) Penicillins Unknown Drug Allergy 11/19/2023 Active tetracycline Tetracycline Unknown Drug Allergy 11/19/2023 Active REASON FOR VISIT Confirmed, anxiety, depression, trauma, panic attacks Medications Medication SIG (Take, Route, Frequency, Duration) Notes Start Date End Date Status lamoTRIgine 100 MG 1 tablet at bedtime Oral Once a day for 90 days Active Valsartan 80 MG Oral 11/19/2023 Act huang buPROPion HCl ER (SR) 100 MG 1 tablet Oral twice a day for 90 days Active DULoxetine HCl 60 MG 1 capsule Oral Once a day for 90 days Active LORazepam 0.5 MG 0.5 tablet Orally Once a day prn As needed 06/03/2024 Active Topiramate 100 MG Oral 11/19/2023 A ctive Atorvastatin Calcium 80 MG Oral 11/19/2023 Active Pregabalin 50 MG Oral 11/19/2023 Ac tive Fluticasone Propionate Diskus 50 MCG/ACT Inhalation *Reorder from [employer] for eRx and Interaction Alerts* 11/19/2023 Active Omeprazole 40 MG Oral 11/19/2023 Ac tive Phentermine HCl 37.5 MG Oral 11/19/2023 Active Social History Tobacco Use: Social History Observation Description Date Details (start date - stop date) Never Smoker NA - NA Sex Assigned At : Social History Observation Description Sex Assigned At Female Tobacco Control (Standard) Question Answer Notes Tobacco use: Nonsmoker Section Notes: Social History Substance UseDo you [...] NoDo you have a medical power of open tenter operator?: NoPublic Health and TravelHave you been to an area known to be high risk for COVID-19?: NoGender Identity and LGBTQ IdentityGender identity: Identifies as FemaleAssigned sex at : FemaleSexual orientation: Straight or heterosexual Encounters Encounter Location Date Provider Diagnosis [facility], [facility] [address] [address] 10/02/2024 Berkley Barnhart Encounter for screen ing for depression Z13.31 ; Mild recurrent major depression F33.0 ; Generalized anxiety disorder F41.1 ; Chronic posttraumatic stress disorder F43.12 and Panic attacks F41.0 Assessments Encounter Date Diagnosis (ICD Code) Assessment Notes Treatment Notes Treatment Clinical Notes Section Notes 10/02/2024 Encounter for screening for depression (ICD-10 - Z13.31) 10/02/2024 Mild recurrent major depression (ICD-10 - F33.0) 10/02/2024 Generalized anxiety disorder (ICD-10 - F41.1) 10/02/2024 Chronic posttraumatic stress disorder (ICD-10 - F43.12) 10/02/2024 Panic attacks (ICD-10 - F41.0) 10/02/2024 Other Client reports she has been undergoing a number of tests and has been diagnosed with aortic stenosis. She is to have a cardio cath on Sunday and this will determine if she will have to have open heart surgery or not. Client reports she is feeling anxious and scared about what is in store for her and her heart. Client has become involved in a local democratic group and helped with a recent fund raising event. She focused primarily on the issues with her heart. Therapist actively listened to client and utilized a cognitive intervention to help client explore strategies to reduce her anxiety related to her health issues. PHQ=18 moderately severe Plan Of Treatment Next Appt Details Follow Up: 2 Weeks, Reason: therapy follow up Provider Name:Berkley Barnhart , 10/20/2024 01:00:00 PM, [address], [address], [address], Provider Name:Lakisha medrano, 10/20/2024 02:45:00 PM, [address], [address], [address], Provider Name:Berkley Barnhart , 11/03/2024 04:00:00 PM, [address], [address], [address], Provider Name:Berkley Barnhart , 11/17/2024 01:00:00 PM, [address], [address], [address], Progress Notes * ADI FLOWERS MDOB: 3 (63 yo F)Acc No.[id number]:10/02/2024 Patient: ADI DAVEY Provider: Michael BARNHART LCSW :1960 A ge:63 Y S ex:Female Date:10/02/2024 Address:[facility] [place] [address] Pcp:Pacheco Mejia DO Check In:03:11 PM CSTCheck O ut:03:47 PM PRINCIPLE INDUSTRIAL HYGIENIST Data: * Time Tracker: * Date Start Time End Time Duration User Type Captured By Mode Notes 10/02/2024 03:03 PM 03:47 PM 00:44:00 Therapist Berkley Barnhart anual * Chief Complaints: * 1 . Confirmed. 2. Anxiety. 3. Depression. 4. Trauma. 5. [...] this time. Discussed continued treatment with patient. The patient was seen today for Tele visit. [place] _X__Client is here today for psychotherapy to treat ___. Based on our session, I think the patient is making ___ progress. At this time I do not recommend changes to the treatment plan. I __ think the patient poses significant risk of harm to self or others at this time. Discussed continued treatment with patient. _ __patient is seen at HOME Pt is seen at other than [facility] the session was conducted via a HIPAA-compliance audio/visual platform. D epression screening: PHQ-9 L ittle interest or pleasure in doing things M ore than half the days, F eeling down, depressed, or hopeless S everal days, T rouble falling or staying asleep, or [...] been moving around a lot more than usual N early every day, T houghts that you would be better off or of hurting yourself in some way Not at all, T otal Score 1 8, I nterpretation M oderately Severe Depression.?Intervention D epression Screening Findings P ositmelvin, F ollow-Up for Depression M ental health treatment assessment, Patient follow-up to return when and if necessary, S uicide Risk Assessment Performed 0 10/02/2024 Client denies plan or intent to harm herself at this time per PHQ-9, A dditional Evaluation for Depression P sychiatric interview and evaluation, N zacarias of the standardized tool used for adult depression screening: [facility] Health Questionnaire (PHQ-9). * Behavioral History: P ast psychiatric Hospitalization:Yes. W hen and where was the last admission?:2019. H istory of suicidal attempt?:Yes. T ype of previous suicidal attempt:Overdose. * Medical History: P roblems: Chronic post-traumatic stress disorder, Generalized anxiety disorder, Mild recurrent major depression, Panic attack, Hypertension. * Surgical History: H ysterectomy (15492) , Laparoscopic sleeve gastrectomy (114299235) 2014 , Oophorectomy (66398) , Any surgical history 3 knee replacements , Appendectomy (36227) 08/29/2014, pneumonia 01/06/24. * Family History: P aternal Grandfather: Alcohol abuse . P aternal Grandmother: Alcohol abuse . M aternal Grandfather: Alcohol abuse . M aternal Grandmother: Alcohol abuse . B rother: Alcohol abuse, Notes: sober , Anxiety disorder , Depressive disorder , Substance abuse, Notes: pot-quit . * Social History: T obacco Use: T obacco Control (Standard) T obacco use: N onsmoker. S ocial History Substance UseDo you or [...] NoDo you have a medical power of open tenter operator?: NoPublic Health and TravelHave you been to [...] Inhalation , Notes to Pharmacist: *Reorder from [employer] for eRx and Interaction Alerts*, Taking Pregabalin [...] reviewed and reconciled with the patient * Allergies: A ugmentin: Allergy - Onset Date 11/19/2023, Penicillins: Allergy - Onset Date 11/19/2023, Tetracycline: Allergy - Onset Date 11/19/2023. * Vitals: * Examination: P sychiatry: Kat borjas is casually groomed and oriented X 3. Assessment: * Assessment: 1. M ild recurrent major depression - F33.0 (Primary) 2 . E ncounter for screening for depression - Z13.31 3 . G eneralized anxiety disorder - F41.1 ? 4 . C hronic posttraumatic stress disorder - F43.12 5 . P anic attacks - F41.0 Plan: * Treatment: * Procedure Codes: 9 0834 PSYCHOTHERAPY W/PATIENT 45 MINUTES, Modifiers: 95 , 36358 BEHAV ASSMT W/SCORE & DOCD/STAND INSTRUMENT, G8431 CLIN DEPRESSION SCREEN DOC * Follow Up: 2 Weeks (Reason: therapy follow up) * Billing Information: * Visit Code: * Procedure Codes: 61363 PSYCHOTHERAPY W/PATIENT 45 MINUTES. Modifiers: 95 71986 BEHAV ASSMT W/SCORE & DOCD/STAND INSTRUMENT. G8431 CLIN DEPRESSION SCREEN DOC. * Sign off status: Completed Signatures: No Ad Hoc Signature Added true * Provider: Michael BARNHART LCSW Date: 0 10/02/2024 Generated for Irma sweeney/Geronimo/Tigist on: 0 10/06/2024 01:06 AM CDT History and Physical Notes * HPI (History of Present Illness) Category Sub-Category Detail Notes Category Not es Depression screening PHQ-9 Little inte rest or pleasure in doing things: More than half the days Feeling down, depressed, or hopeless: Se veral days Trouble falling or staying asleep, or sl [...] some way: Not at all Total Score: 18 Interpretation: Moderately Severe Depres diego Intervention Depression Screening Findings: P ositve Follow-Up for Depression: [facility] treatment assessment, Patient follow-up to return when and if necessary Suicide Risk Assessment Performed: 10/02 Client denies plan or intent to harm herself at this time per PHQ-9 Additional Evaluation for De pression: Psychiatric interview and evaluation Name of the standardized too l used for adult depression screening:: Patient Health Questionnaire (PHQ-9) Examination Category Sub-Category Detail Notes Category Not es Psychiatry Client is hakeem dana groomed and oriented X 3
[2024-10-06 09:26] LABS: Basophils Absolute Auto 0.1 K/mm3 (0.0-0.1); Basophils Percent Auto 0.5 % (0.2-1.2); Eosinophils Absolute Auto 0.3 K/mm3 (0-0.3); Hematocrit 39.2 % (37.0-47.0); Hemoglobin 13.6 g/dL (12.0-15.0); Immature Granulocyte Absolute 0.04 K/mm3 (0.00-0.031); Immature Granulocyte Percent A 0.4 % (0-0.5); Lymphocytes Absolute Auto 1.82 K/mm3 (0.9-3.2); Lymphocytes Percent Auto 16.4 % (18.3-44.2); Mean Corpuscular HGB Conc 34.7 g/dl (32-36); Mean Corpuscular Hemoglobin 31.1 pg (26-34); Mean Corpuscular Volume 89.7 fl (80-100); Mean Platelet Volume 8.4 fl (7.4-10.4); Monocytes Absolute Auto 0.7 K/mm3 (0.1-0.6); Monocytes Percent Auto 6.3 % (2.6-8.5); Neutrophils Absolute Auto 8.1 K/mm3 (1.3-6.7); Neutrophils Percent Auto 73.4 % (45.5-73.1); Platelet Count Result 280 k/mm3 (150-375); Red Blood Count 4.37 M/mm3 (4.2-5.4); Red Cell Distribution Width 13.4 % (11.5-14.5); White Blood Count 11.1 K/mm3 (4.5-10.0)
[2024-10-06 09:33] LABS: Anion Gap 12 mmol/L (4-12); Blood Urea Nitrogen 23 mg/dL (7-17); Calcium 9.1 mg/dL (8.4-10.2); Carbon Dioxide 25 mmol/L (22-30); Chloride 105 mmol/L (98-107); Estimated CRCL calculation 87 ml/min; Estimated Glomerular Filt Rate > 60; Glucose 97 mg/dL (65-110); Potassium 4.2 mmol/L (3.4-5.0); Sodium 142 mmol/L (137-145)
--- NOTE | 2024-10-06 11:44 | WPDHPUPDATE1 ---
History and Physical Update Update Date/Time: 10/06/24 11:10 History and Physical has been reviewed, including an updated exam of the patient. There are NO changes in the patient's condition. Risks, benefits, and alternatives have been discussed and questions answered. Patient agrees to proceed with procedure.
--- NOTE | 2024-10-06 11:45 | P.SEDATION_ITS ---
Moderate Sedation Note-Pt Data Patient Data Allergies Allergy/AdvReac Type Severity Reaction Status Date / Time Penicillins Allergy Intermediate Hives Verified 10/02/24 09:13 tetracycline Allergy Unknown Unknown Verified 10/02/24 09:13 amoxicillin (From Augmentin) Allergy Hives Verified 10/02/24 09:13 clavulanic acid (From Allergy Hives Verified 10/02/24 09:13 Augmentin) Home Medications ?Medication ?Instructions ?Recorded ?Confirmed ?Type bupropion HCl 100 mg tablet,12 hr 100 mg PO BID #180 tabs 11/13/22 10/02/24 Rx sustained-release (Wellbutrin SR) duloxetine 60 mg capsule,delayed 60 mg PO DAILY #90 caps 11/13/22 10/02/24 Rx release B12 1,000 mcg PO DAILY 05/21/23 10/02/24 History Biotin Hyaluric Acid 10,000 mcg PO DAILY 05/21/23 10/02/24 History Iron 65 Mg W Vit C 270mg 65 mg PO DAILY 05/21/23 10/02/24 History lamotrigine 100 mg tablet 100 mg PO DAILY 02/23/24 10/02/24 History lorazepam 0.5 mg tablet 0.5 mg PO PRN PRN Anxiety 02/23/24 10/02/24 History calcium 315 mg (as 1 tablet PO DAILY 03/06/24 10/02/24 History citrate)-vitamin D3 5 mcg (200 unit) tablet (Calcium Citrate + D) cetirizine 10 mg tablet (Zyrtec) 10 mg PO DAILY 03/06/24 10/02/24 History melatonin 10 mg capsule 10 mg PO HS PRN Sleep 03/06/24 10/02/24 History omeprazole 40 mg capsule,delayed 40 mg PO DAILY #90 caps 04/15/24 10/02/24 Rx release atorvastatin 80 mg tablet 80 mg PO QHS #90 tabs 06/10/24 10/02/24 Rx pregabalin 50 mg capsule 50 mg PO BID #180 caps 06/24/24 10/02/24 Rx valsartan 80 mg tablet See Rx Instructions .Route 08/21/24 10/02/24 Rx .COMPLEX #90 tabs acetaminophen 500 mg tablet 500 mg PO .PRN PRN pain 09/18/24 10/06/24 History dcpqnxnl-nwwwkunm-wivj 45 mg-folic 1 cap PO DAILY 09/18/24 10/02/24 History acid 800 mcg-vit K 120 mcg capsule (Bariatric Multivitamins) naproxen 250 mg tablet 250 mg PO .PRN PRN pain 09/18/24 10/02/24 History omega-3 fatty acids 1 cap PO DAILY 09/18/24 10/02/24 History vitamin c 1000mg + Calc carbnt 52mg See Rx Instructions BYMOUTH 09/18/24 10/02/24 History .COMPLEX fluticasone propionate 50 2 spray intranasal DAILY 10/01/24 10/02/24 History mcg/actuation nasal spray,suspension methocarbamol 750 mg tablet See Rx Instructions .Route .COMPLEX 10/01/24 10/02/24 History nitroglycerin 0.4 mg sublingual 0.4 mg sublingual Q5-15M PRN chest 10/03/24 Rx tablet pain #10 tabs Sedation/Anesthesia: No previous sedation/anesthesia problems (including family history). [facility] Past Medical History Medical History Achilles tendinitis of left lower extremity Morbid obesity due to excess calories Tear of biceps muscle Obesity Peripheral neuropathy Restless leg syndrome Lumbosacral spondylosis Dorsalgia Low TSH level Thyrotoxicosis, unspecified with thyrotoxic crisis or storm Chronic post-traumatic stress disorder (PTSD) Hyperlipidemia Essential hypertension Depression Obstructive sleep apnea of adult Osteoarthritis Moderate aortic stenosis Anemia Cervical radiculopathy Vitamin D deficiency Anxiety Surgical History Surgical History History of left knee replacement Hx of appendectomy 08/27/2014 History of lumpectomy of left breast H/O abdominal hysterectomy With unilateral oophorectomy History of total right knee replacement (TKR) Hx of cardiac cath Nonobstructive CAD by cath 10/18/2010-normal m, cx. 30% LAD/RCA (per [facility] note) H/O gastric bypass Social History Social History Smoking status: Never smoker Second hand tobacco smoke exposure: No Alcohol intake: never Drinks per week: 0 Alcohol use details: RARE, ONE A MONTH Substance use: never Substance use type: does not use Do You Feel Safe in your Home?: Yes Lack of Transportation: No Lack of Food: Sometimes True Current Housing: I Have Housing Concerned About Future Housing: YES Difficulty Paying Gas/Electric Bills: YES Difficulty Paying for Meds: No Currently Unemployed: No Education: Bachelor's Degree Difficulty w/ Childcare or Family Care: No Living arrangements: with family Spiritual care concerns: No Mod Sed Physical Exam Physical Exam Pre Procedural Exam: Normal: Heart Size and Heart Rate Hours since solid foods: 12 Hours since liquid intake: 12 Mallampati Classification: class III Internal Medicine - PN: Obj Da Vital Signs Vital Signs: Vital Signs - 24 hr 10/06/24 09:16 Temperature 36.4 C Pulse Rate 115 H Respiratory Rate 18 Blood Pressure 148/74 H Pulse Oximetry 97 Oxygen Delivery Room Air Labs 10/06/24 09:04 10/06/24 09:04 Labs: Laboratory Results - last 24 hr 10/06/24 09:04 WBC 11.1 H RBC 4.37 Hgb 13.6 Hct 39.2 MCV 89.7 MCH 31.1 MCHC 34.7 RDW 13.4 Plt Count 280 MPV 8.4 Immature Gran % (Auto) 0.4 Neut % (Auto) 73.4 H Lymph % (Auto) 16.4 L Hancock % (Auto) 6.3 Eos % (Auto) 3.0 Baso % (Auto) 0.5 Lymph # (Auto) 1.82 Hancock # (Auto) 0.7 H Eos # (Auto) 0.3 Baso # (Auto) 0.1 Abs Immat Gran (auto) 0.04 H Absolute Neuts (auto) 8.1 H Absolute Nucleated RBC 0.000 Nucleated RBC % 0.0 Sodium 142 Potassium 4.2 Chloride 105 Carbon Dioxide 25 Anion Gap 12 BUN 23 H Creatinine 0.75 Estim Creat Clear Calc 87 Estimated GFR > 60 Glucose 97 Calcium 9.1 ASA Classification/Sedation ASA Classification/Sedation ASA Class: III Emergent: No Risks: Risks, benefits and alternatives explained and patient/family accepted plan for sedation. Patient re-evaluated immediately prior to sedation.
--- NOTE | 2024-10-06 12:31 | WPDCARDPROC ---
Cardiac Cath Procedure Note Date of procedure:: 10/06/24 Performing physician:: CATHETERIZATION LABORATORY REPORT Procedure Date: 10/06/2024 Referring Physician: Dr. Concepcion Anesthesia: Versed and Fentanyl were ordered and given in my presence at 1211, procedure ended at 1227. Supervision of nurse, Tierney Lugo monitored moderate sedation with 2mg Versed and 100mcg Fentanyl was provided for 16 minutes. Pre-op Diagnosis: Severe Aortic Stenosis Post-op Diagnosis: Severe Aortic Stenosis Procedure(s): Coronary angiography Access Site: Right radial artery Brief History and Clinical Indications: 63-year-old woman with severe aortic stenosis and coronary disease is referred to define her coronary anatomy. All risks, benefits and alternatives to left heart catheterization with or without percutaneous coronary intervention was discussed at length with the patient. Risk of complications including but not limited to bleeding, infection, arrhythmia, stroke, worsening kidney function, blood loss, groin hematoma, limb loss, emergency coronary artery bypass grafting, and even were discussed with the patient and all questions were answered. The patient understood and wished to proceed. Time out called, patient name, date of , medical record number, allergies, procedure performed, identify Principal Electrical Engineer, patient and staff member concurred with accurate data, procedure carried on. Findings: LEFT HEART CATHETERIZATION FINDINGS: 1. Left main: The left main coronary artery is widely patent without any significant obstructive disease. 2. Left anterior descending: The LAD provides 2 diagonal branches. The diagonal branches have luminal irregularities. The prox-mid LAD has an area of heavily calcified 70% stenosis. The remainder of the vessel has diffuse 10-20% stenosis. 3. Ramus Intermedius: The ramus intermedius is a moderate caliber vessel 10% proximal stenosis and 70% very distal stenosis where the vessel becomes 1 mm in diameter. 3. Left circumflex: The left circumflex artery is a large dominant vessel that provides 3 OM branches. The OM branches have luminal irregularities. The distal left circumflex leading into the left PDA have diffuse 20% stenosis. 4. Right coronary artery: The RCA is a small nondominant vessel with severe disease in its proximal mid body. An acute marginal comes off immediately at the ostium of the RCA and provides the conus as well as the SA farzad branches. 5. Left ventricle: No attempts were made to cross into the left ventricle given known severe aortic stenosis. 6. Opening AO pressure 105/75 and closing AO pressure 114/89 Description of Procedure: Informed consent signed and placed in the chart. Patient transferred to labor relations or personnel negotiator room. Prepped and draped in usual sterile fashion. 2% lidocaine injected subcutaneously in right wrist area. 22-gauge venipuncture catheter used to access the right radial artery with the Seldinger technique. 6-FR slender sheath placed in right radial artery. Nitroglycerin 200mcg, Verapamil 2.5mg, and Heparin 5000U was given intraarterial through the sheath. J wire advanced under fluoroscopy 5F TIG diagnostic catheter engaged Left Main Coronary Artery. 5F TIG diagnostic catheter engaged Right Coronary Artery Multiple orthogonal angiogram obtained and reviewed Assessment: Single-vessel CAD Post Operative Condition: Stable No significant blood loss Disposition: Home Plan: Continue aggressive medical management. Outpatient discussion on definitive management for severe aortic stenosis and severe prox to mid LAD stenosis. [facility] Inter[facility]
[2024-10-06] MEDS: ACETAMINOPHEN 500 MG TABLET 1000 MG PO (15:24)
== END 2024-10-06 16:37 | disposition home or self-care (01) ==
PROVIDERS: PCP Internal Medicine; Visit Provider Internal Medicine
PROC: (CPT 93454; principal; 2024-10-06 10:00)
DX: I35.0 Nonrheumatic aortic (valve) stenosis (principal); I25.10 Atherosclerotic heart disease of native coronary artery without angina pectoris
CPT/HCPCS: 36415; 80048; 85025; 93454; A9270; C1769; C1887; C1894; J1644; J2003; J2250; J2305; J3010; J7040

== ENCOUNTER 2024-12-02 16:03 | Outpatient (CLI) | payer OTHER, MEDICAID, SELFPAY ==
--- NOTE | ~2024-12-02 | MM_ITS ---
EXAMINATION: MM screening clyde BI w saima HISTORY: Screening TECHNIQUE: Craniocaudal and mediolateral oblique 3-D tomosynthesis images were obtained and synthetic 2-D images were generated. CAD analysis was submitted and interpreted. COMPARISON: No prior mammogram is available for comparison at this institution. BREAST PARENCHYMAL COMPOSITION: Not dense: There are scattered areas of fibroglandular density. FINDINGS: There is a mass in the lower inner quadrants of the left breast, middle third. This mass co ntains coarse internal calcifications. There is no evidence for malignancy in the right breast. IMPRESSION: 1. Left breast mass lower inner quadrant, middle third. 2. Recommend comparison to previous outside mammogram to assess stability. BI-RADS Category 0: Incomplete: Needs additional imaging evaluation. Reviewed, dictated and finalized at location B.
--- OUTSIDE RECORDS SUMMARY | 2024-12-02 16:08 | XMS_ITS ---
Author Name STEFANIE PARDO M.D. Address [address] [place] [address] Phone [phone] Organization [facility] Care Team Providers Care Service Worker Helper Name Role Phone STEFANIE PARDO Unavailable [phone] [facility] Tier 2 RN (STL), Sigrid Bermudez navailable Unavailable Latisha Andrade Courtney Unavailable Unavail able Josette Oshea Unavailable [phone] [facility] Tier 1 RN (STL), Sigrid Bermudez navailable Unavailable ELODIA FORTE Unavailable [phone] TIMOTHY CLIFFORD Unavailable [phone] Reason for Referral Not Available Allergies, adverse reactions, alerts Allergen Type Reaction Severity Status Onset Date Tetracycline Allergy to substance (disorder) toothache Moder ate Active N/A Penicillin Allergy to substance (disorder) Hives Moderat e Active N/A Augmentin Allergy to substance (disorder) Hives Moderate Active N/A History of medication use Medication Class Instructions Start Date End Date Tylenol Extra Strength 500 m g Tab take twice daily as needed for pain 2024-10-27 No Data Available hydrOXYzine 50 mg Tab bed time 2024-10-27 No Al a Available Methocarbamol 750 mg Tab 1 tablet orally as needed 11-16-13 No Data Available [facility] Vitamin B12 1000 MCG Tab 1 tablet orally daily 11-16-13 No Data Available ZyrTEC Allergy 10 mg Tab 1 tab by mouth daily No Data Available Iron 325 (65 Fe) MG Tab + vitamin c 265 1 tablet orally daily 2024-10-27 No Data Available Claritin 10 mg Tab 1 tablet orally daily 2024-10-27 No Data Available Melatonin 10 mg Tab nightly 2024-10-27 No Data Available Daily Value Multivitamin Tab 1 tablet orally daily 11-16-13 No Data Available Ward-3 Fish Oil 1200 mg Cap 1 Capsule daily 2024-10-14 4 No Data Available calcium citrate 1000 mg once a day 2024-10-27 No D rebecca Available vitamin c = calcium carbonat e 1000 mg/50 mg once a day 2024-10-27 No Data Available Problem List Problem Status Onset Date Resolved Date Hypertension Inactive 2024-10-27 N/A Anxiety Active 2024-10-27 N/A Muscle pain Inactive 2024-10-27 N/A Neuropathy Inactive 2024-10-27 N/A Seasonal allergies Inactive 2024-10-27 N/A Chest pain Active 2024-10-27 N/A Hyperlipidemia Inactive 2024-10-27 N/A Aortic stenosis, severe Active 2024-10-27 N/A Sciatica of left side Inactive 2024-10-27 N/A Spondylosis, cervical Inactive 2024-10-27 N/A Depression Active 2024-10-27 N/A Morbid obesity Active 2024-10-27 N/A Dyspnea on exertion Active 2024-10-27 N/A Encounters Encounters Type Facility Date of Service Diagnosis/Co mplaint Outpatient visit for evaluation and management of new patient, including medically appropriate examination and low level of medical decision making, total time 30-44 minutes [facility] 10/27/2024 Nonrheumatic aortic (valve) stenosisEssential (primary) hypertensionChest pain, unspecifiedOther forms of dyspneaHyperlipidemia, unspecifiedAnxiety disorder, unspecifiedDepression, unspecifiedSpondylosis without myelopathy or radiculopathy, cervical regionMorbid (severe) obesity due to excess caloriesMyalgia, unspecified sitePolyneuropathy, unspecifiedOther seasonal allergic rhinitisSciatica, left sideBody mass index (BMI) 45.0-49.9, adult Vital Signs Date of Collection Vitals 2024-10-27 10:45:00 Height - 160.02 cmWe ight - 127.01 kgBody Mass Index (BMI) - 49.6 kg/m2 Social History Sex Female History of Procedures Procedures Service Procedure code Service date Servicing provider Phone# Outpatient visit for evaluation and management of new patient, including medically appropriate examination and low level of medical decision making, total time 30-44 minutes [id number] 2024-10-27 No Data Available No Data Availa ble Functional Status Functional Category Effective Dates Cane and walker as needed, able to perfo rm ADLs independently 2024-10-27 Mental Status No Information Assessments Date of Service Assessments 2024-10-27 10:45:00 AnxietyChest painAor tic stenosis, severeShortness of breathDepressionMorbid obesityDyspnea on exertionHypertensionMuscle painNeuropathySeasonal allergiesHyperlipidemiaSciatica of left sideSpondylosis, cervical Plan of Care Not Available Goals Date Goal 2024-10-27 Low sodium diet of 1 500 mg or less per day 2024-10-27 Recommend using a fl oor pedal for exercise 2024-10-27 Speak with hoa sanders about getting coupon for Mournjaro 2024-10-27 Set up advance direc tive 2024-10-27 Low fat, low card di et 2024-10-27 Weight lost of 2 - 2 .5 lbs per week 2024-10-27 Educated on download ing coupon for each new med for 30 - 60 day supply 2024-10-27 Recommend to speak w ith PCP about physical therapy Health Concerns Date Concern 2024-10-27 [facility] is a service that involves a physician or advanced practice provider conducting comprehensive assessments in your patient s home or virtually to address crucial areas such as chronic conditions, quality gaps, social concerns, fall risk prevention, and various screenings. Please note that your patient will remain attributed to you even though they are participating in this service. If you have any questions, please reach out directly to our team at the phone number above.Leyla Vega is a very pleasant 64 (1960), female, was seen today for a [facility] virtual video visit. Patient read rights and responsibilities and consented to treatment. The purpose of this summary is to update you on the patient's current health status and share any relevant findings from the examination. Mrs. Veag looks well for an aortic stentotic patient and presents with no signs of distress. She is a very good historian of her health history. Reports she has severe aortic stenosis which causes dyspnea upon exertion. States she saw a cardiosurgeon this morning and states she will be scheduled for open heart surgery for aortic valve replacement. Date has not be set as of yet. Reports below medical, surgical, social history, and medications below are correct. 2024-10-27 Recommendations: 2024-10-27 Anxiety 2024-10-27 Chest pain 2024-10-27 Aortic stenosis, sev ere 2024-10-27 Shortness of breath 2024-10-27 Depression 2024-10-27 Morbid obesity 2024-10-27 Dyspnea on exertion 2024-10-27 Hypertension 2024-10-27 Muscle pain 2024-10-27 Neuropathy 2024-10-27 Seasonal allergies 2024-10-27 Hyperlipidemia 2024-10-27 Sciatica of left wilmer e 2024-10-27 Spondylosis, cervica l
--- OUTSIDE RECORDS SUMMARY | 2024-12-02 16:08 | XMS_ITS | Patient Health Record ---
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 with a 5 mm valve opening, causing shortness of breath and fatigue due to reduced oxygen supply. Two coronary artery blockages are also present. Aortic valve replacement surgery is scheduled, with the specific approach (open heart vs. transcatheter) to be determined. Patient's manager functional has advised against exercise or activities that raise heart rate to avoid strain on the heart. Plan: - Advised patient to follow manager functional's recommendations - Surgical consultation scheduled for next Sunday to discuss aortic valve replacement options 10/20/2024 Other Client reports she continues to struggle with issues related to her hear, primarily worried/concerned about her mortality. She is not to do anything strenuous. SHe has had some bad experiences with surgical procedures and this is increasing her stress level. Therapist actively listened to client and utilized a cognitive behavioral intervention to help client explore strategies to reduce her anxiety (trust in her surgeon, that she sees next Sunday, mindfulness, and grounding strategies). PHQ=14 moderate ARVIN=21 severe 11/03/2024 Other Client is having her heart surgery on December 09. She is stressing about everything related to the hospital stay and surgery. She will have by-pass surgery and to have an aortic balve replaces. She states her thoughts won't stop about it. She with the help of her , are getting the house ready for her return home, after the surgery. Therapist actively listened to client and utilised a cognitive behavioral intervent to help client explore stratergies to keep herself busy when she returns home. PHQ=23 severe ARVIN=21 severe 11/17/2024 Other Client reports she had some of her pre-surgery tests completed last week. She continues to stress about about her upcoming surgery (12/09). Client is anxious about various aspects of the surgery. Therapist actively listened to client and utilized a cognitive behavioral intervention to help client explore strategies to minimize her anxieties (improving self-talk, self-affirmations ). PHQ=20 severe ARVIN=21 severe 11/17/2024 Other Adi Vega, female patient with history of anxiety and substance use disorder, presenting for medication management and pre-operative concerns before upcoming open heart surgery. Anxiety Assessment: Patient reports ongoing major anxiety, likely exacerbated by upcoming open heart surgery scheduled for December 09. Recent medication changes appear to be effective in managing symptoms, though anxiety persists due to situational stressors related to the impending procedure. Plan: - Refill lorazepam as requested for anxiety management - Continue current medication regimen, including duloxetine and bupropion - Follow-up appointment scheduled for 3 months post-surgery Substance Use Disorder (History of Opiate Addiction) Assessment: Patient has a history of opiate addiction following previous knee surgeries. She reports becoming easily addicted to opiates and experiencing withdrawal symptoms, including skin crawling sensations. Patient has successfully used Suboxone (buprenorphine) in the past to wean off opiates post-surgically. Plan: - Patient to inform surgical team about history of opiate addiction - Discuss with surgical team the potential need for a weaning plan post-operatively, possibly including Suboxone - Advised patient to advocate for appropriate pain management during hospitalization, balancing need for pain control with risk of addiction Medication Management (Perioperative) Assessment: Patient expresses concern about potential discontinuation of current psychiatric medications during hospitalization, particularly Lyrica (pregabalin) and duloxetine. She reports significant impact when missing doses of these medications, including the potential for restless legs with Lyrica discontinuation. Plan: - Advised patient to advocate for continuation of psychiatric medications during hospitalization, especially duloxetine and bupropion - Educated patient on the importance of maintaining mood stabilization medications perioperatively - Instructed patient to inform surgical team about the need to continue Lyrica to prevent restless legs syndrome Plan Of Treatment Pending Test Test Name Order Date UDT 04/21/2024 Next Appt Details Provider Name:Berkley Barnhart , 12/03/2024 11:00:00 AM, [address], [facility] [address] [place], [address], Provider Name:Berkley Barnhart , 12/29/2024 02:00:00 PM, [address], [facility] [address], [place], [address], Provider Name:Berkley Barnhart , 01/05/2025 02:00:00 PM, [address], [facility] [address], [address], Provider Name:Berkley Barnhart , 01/19/2025 02:00:00 PM, [address], [facility] [address], [address], Provider Name:Lakisha galvan, 02/16/2025 02:15:00 PM, [address], [facility] [address] [place], [address], Insurance Providers Payer Name Payer Address Payer Phone Subscriber Number Group Number Insured Name Patient Relationship to Insured Coverage Start Date Coverage End Date [facility] Medicare Replacement/ Advantage - Hmo [address] [place] [phone] [id number] ADI VEGA Self - patient is the insured [place] [address] [address] [place] [address] [id number] ADI VEGA Self - patient is the insured Medical (General) History Medical History History ICD Code Problems: Chronic post-traumatic stress disorder Generalized anxiety disorder Mild recurrent major depression Panic attack hypertension Surgical History Surgery Date(Month/Year) Hysterectomy (40904) Laparoscopic sleeve gastrectomy (5453702 ) 2014 Oophorectomy (63141) Any surgical history 3 knee replacements Appendectomy (45302) 08/29/2014 pneumonia 01/06/24
--- OUTSIDE RECORDS SUMMARY | 2024-12-02 16:09 | XMS_ITS | Encounter Summary ---
Author Organization [facility] Address [address] [place] [address] Phone Care Team Providers Care Virtualization Architect Name Role Phone Pacheco Mejia DO Primary Care Provider [phone] Justin Herron DO Unavailable [phone] Encounter Details Date Type Department Care Team (Late st Contact Info) Description 12/01/2024 Telephone [facility] Cardiothoracic Surgery [address] [facility] 8th Floor [address] Room [address] [place] [address] Sigrid Zepeda RMA Social History Tobacco Use Types Packs/Day Years Used Date Smoking Tobacco: Never Passive Smoke Exposure: Past Smokeless Tobacco: Never Passive Exposure Comments:as a child AUDIT-C Answer Date Recorded Q1: How often do you have a drink containing alc ohol? Monthly or less 11/12/2024 Q2: How many drinks containi ng alcohol do you have on a typical day when you are drinking? 1 or 2 11/12/2024 Q3: How often do you have si x or more drinks on one occasion? Never 11/12/2024 Personal Safety Answer Date Recorded Have you ever been in or are you currently in a harmful physical or emotional relationship or is someone making you feel afraid or unsafe? 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 Mortensen, case needs to be moved to 12/31. S/w pt, informed her that case has to be moved to 12/31. Pt stated No, no no, it can't be moved. I can't wait another month. Not with all the changes in the government. They are going to get rid of Medicaid. No, Please let me talk to Dr. Mortensen. I informed pt I would pass the message along to his staff. documented in this encounter Plan of Treatment Upcoming Encounters Date Type Department Care Team (Latest Contact Info) Description 12/09/2024 7:00 AM CDT Hospital Encounter [facility] Operating Room [address] [place] [id number] Indiana Mortensen MD [address] [facility] [address] [place] [address] 12/09/2024 7:00 AM CDT Anesthesia Event [facility] Operating Room [address] [place] [address] Omayra Linares, [address] [place] [address] 12/09/2024 7:00 AM CDT - 12/09/2024 2:55 PM CDT Surgery [facility] Operating Room [address] [place] [id number] Indiana Mortensen MD [address] [place] [address] REPLACEMENT AORTIC VALVE WITH ROOT ENLARGEMENT Scheduled Procedures Name Priority Associated Diagnoses Date/Ti me REPLACEMENT AORTIC VALVE/ROOT Aortic stenosis, severe Single vessel coronary artery disease 12/09/2024 7:00 AM CDT CORONARY ARTERY BYPASS GRAFT WITH PUMP Aortic stenosis, severe Single vessel coronary artery disease 12/09/2024 7:00 AM CDT ENDOSCOPIC VESSEL HARVEST Aortic stenosis, severe Single vessel coronary artery disease 12/09/2024 7:00 AM CDT documented as of this encounter Visit Diagnoses Not on filedocumented in this encounter Care Teams Virtualization Architect Relationship Specialty Start Date End Date Pacheco Mejia DO PCP - General Internal Medicine 01/22/23 Justin Herron DO [address] [facility] [address] [facility] [address] [place] [address] Referring Physician Cardiology 10/14/24 documented as of this encounter
--- OUTSIDE RECORDS SUMMARY | 2024-12-02 16:09 | XMS_ITS | Clinical Summary ---
Author Organization [facility] Elaine Cunha Address [address] [place] [address] Care Team Providers Care Summer Counselor Name Role Phone GlynnPacheco michelle Ravinder BILLS [...] bedtime. Active fluticasone propionate (FLONASE) 50 mcg/spray [place], Suspension nasal inhaler USE 2 SPRAY(S) IN [...] Active Active Problems No known active problems Family History Medical History Relation Name Comments [...] Comments Blood Pressure 129/70 05/30/2023 10:21 AM COMMUNITY OUTREACH ADVOCATE Pulse 93 05/30/2023 10:21 AM COMMUNITY OUTREACH ADVOCATE Temperature 35.7 C (96.2 F) 05/30/2023 10:21 AM COMMUNITY OUTREACH ADVOCATE Respiratory Rate 12 05/30/2023 10:21 AM COMMUNITY OUTREACH ADVOCATE Oxygen Saturation 96% 05/30/2023 10:21 AM COMMUNITY OUTREACH ADVOCATE Inhaled Oxygen Concentration - - Weight 134.3 kg (296 lb) 05/30/2023 10:21 AM COMMUNITY OUTREACH ADVOCATE Height 160 cm (5' 3 ) 05/30/2023 10:21 AM COMMUNITY OUTREACH ADVOCATE Body Mass Index 52.43 05/30/2023 10:21 AM COMMUNITY OUTREACH ADVOCATE Plan of Treatment Health Maintenance Due Date Last Done Comments DTAP/TDAP/TD VACCINES (1 - Tdap) 1981 HPV/Cotest (21-29) 10/25/1983 CERVICAL CANCER SCREENING 1992 HPV/Cotest (30-65) 1992 PAP SMEAR 1992 BREAST CANCER SCREENING 2002 COLORECTAL SCREENING 10/25/2007 Colorectal Cancer Screening 10/25/2007 FIT-DNA Q 3 years 10/25/2007 FIT/FOBT Q 1 year 10/25/2007 Flex Sig/CT Colonography Q 5 years 10/25/2007 ZOSTER VACCINE (1 of 2) 2012 INFLUENZA VACCINE (#1) 2024 RSV VACCINE (60+ or ) (1 - 1-dose 75+ series) 2037 Insurance [facility] MEDICAID [place] Care Teams Summer Counselor Relationship Specialty Start Date End Date Pacheco Mejia DO [address] [facility] [address] [place] [address] PCP - General Internal Medicine 02/16/23
--- OUTSIDE RECORDS SUMMARY | 2024-12-02 16:09 | XMS_ITS | Encounter Summary ---
Author Organization [facility] Address [address] [place] [facility] [address] [place] [address] Phone Care Team Providers Care Clinical Specialty Rep Name Role Phone Pacheco Mejia DO Primary Care Provider [phone] Justin Herron DO Unavailable [phone] Encounter Details Date Type Department Care Team (Late st Contact Info) Description 12/01/2024 Telephone [facility] Cardiology [address] [facility] [address] 8th [place] [address] [place] [address] Brigitte Sanchez, [facility] [address] [facility] [address] [place], [place] [id number] Social History Tobacco Use Types Packs/Day Years [...] on file 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 Gender Identity Female 01/25/2023 3:47 PM CDT Sexual Orientation Straight 11/20/2024 5: 09 PM CDT Occupation Industry Job Start Date Job End Date DISABLED Not on file Not on file Not on file documented as of this encounter Miscellaneous Notes * Telephone Encounter - Brigitte Sanchez CNS - 12/01/2024 12:10 PM CDT ----- Message from Tierney Feng sent at 11/28/2024 4:39 PM CDT ----- Regarding: FW: CPAP MSG Tysno Mortensen ----- Message ----- From: Rekha Dee NP Sent: 11/27/2024 2:42 PM CDT To: [facility] Clinical Pool Subject: CPAP MSG Tyson Brown, Patient evaluated by CPAP on 11/12/24, labs completed on 11/27/24. Scheduled for AVR/CABG on 12/09. Of note: UA positive for WBC and Leukocyte esterase. Patient asymptomatic at time of CPAP visit. Please manage at surgeon's discretion. Thank you, Rekha Dee NP >NOTE: There is no need to reply to this message but if you would like to send a non-urgent reply, please address it to the [facility] staff message POOL address [facility] CPAP MOLD CHECKER (number [id number]). Please note that messages to this address will be replied to within approximately 1 business day. If you have an urgent reply, please call the CPAP attending physician at [phone]. Dr. Mortensen aware of UA results. Antibiotic not necessary. documented in this encounter Plan of Treatment Upcoming Encounters Date Type Department Care Team (Latest Contact Info) Description 12/09/2024 7:00 AM CDT Hospital Encounter [facility] Operating Room [address] [place] [address] Indiana Mortensen MD [id number] [place] [address] 12/09/2024 7:00 AM CDT Anesthesia Event [facility] Operating Room [address] [place] [address] Omayra Linares, [address] [place] [address] 12/09/2024 7:00 AM CDT - 12/09/2024 2:55 PM CDT Surgery [facility] Operating Room [address] [place] [address] Indiana Mortensen MD [address] [place] [address] REPLACEMENT AORTIC VALVE WITH ROOT ENLARGEMENT Scheduled [...] on filedocumented in this encounter Care Teams Clinical Specialty Rep Relationship Specialty Start Date End Date Pacheco Mejia DO PCP - General Internal Medicine 01/22/23 Justin Herron DO [address] [address] Referring Physician Cardiology 10/14/24 documented as of this encounter
--- OUTSIDE RECORDS SUMMARY | 2024-12-02 16:10 | XMS_ITS | Continuity of Care Document ---
Author Name [facility] Address [address] [place] [address] Organization [facility] Care Team Providers Care Geriatric Psychiatrist Name Role Phone [facility] Unavailable Unavailable Problems Problem Status [...] Patient LIONEL JOSHI Gender Female Name [facility] Number [id number] Date of Study 10/07/2018 Attending Physician Marcell Perez MD Visit [id number] Farm Instructor See Blair, [facility] Number Date of 1960 Interpreting Andrew [...] Root: 2.88 cm LVOT Diameter: 1.77 cm CD:[email or web address] [email or web address] HNAM URL Echo Transthoracic Complete Transthoraci c Echocardiography Report (TTE) Demographics Patient Name LIONEL JOSHI Gender Female [facility] Number [id number] Date of Study 01/11/2017 Referring Physician Visit Number [id number] Farm Instructor Anthony Vallejo Date of 1960 Interpreting [place] [...] Provider ADM Date DC Date Status Source [facility] Between Visit [id number] 05/16 23:59 :59 Discharg ed [facility] SPM[facility] S[facility] Between Visit [id number] 04/02 23:59 :59 Discharg ed UP-SP[facility] Family Medicine MOO MOO CLAUDIA OUTPATIENT [id number] R HAND 5TH MC FX Ravinder Toedebusch [facility] OUTPATIENT [id number] RT HAND FX 1WK FU Ravinder Toedebusch [facility] OUTPATIENT [id number] CAST CHANGE-TO O TIGHT [facility] OUTPATIENT [id number] 4WK F/U Zihao Casillas [facility] OUTPATIENT [id number] 4WK F/U Zihao Casillas C[facility] Ancillar ies [facility] OUTPATIENT [id number] annual check up Lavern Xavier Cancel [facility] Blue [facility] OUTPATIENT [id number] MSWL PER DR. DARIEL Finch Cancel [facility] FBL [facility] OUTPATIENT [id number] 2 MO F/U Lavern Kolker Cancel [facility] FBL [facility]BL OUTPATIENT [id number] fu Lavern Kolker C[facility] [id number] 2 MO F/U Lavern Kolker Cancel [facility] OUTPATIENT [id number] MSWL PER DR. DARIEL Molina Josette Cancel [facility] OUTPATIENT [id number] F/U MSWL Tracy Josette Cancel [facility] FBL FBL NO TECHBILL [id number] [phone] 3 MONTH F/U Lavern Kolker Cancel [facility] DIAGNOSTIC TEST [id number] LANE pre-op John Paul Viera Cancel [facility] FGL FGL OUTPATIENT [id number] 6-8 WEEK F/U Cancel [facility] FGL [facility] OUTPATIENT [id number] MEDS MAKING PT DIZZY Cancel [facility] FGL [facility] OUTPATIENT [id number] medicatio n titration Cancel [facility] FBL [facility] OUTPATIENT [id number] cold symptoms Brionna Tomer Cancel [facility] OUTPATIENT [id number] CLASS: 1 MO 04/20/15 Rajan Rodriguez Cancel [facility] OUTPATIENT [id number] CLASS: 3 [place] 04/20/15 Rajan Rodriguez Cancel [facility] OUTPATIENT [id number] CLASS: 1 [place] 04/20/15 Rajan Rodriguez Cancel [facility] CHRISTOPHER CHRISTOPHER OUTPATIENT [id number] CONSULT LARGE MONS PUBIS-POS S INS See Karen Cancel [facility] MOO MOO CLAUDIA OUTPATIENT [id number] PRE DOS 01/13 FLIP CLAUDIA L KNEE Juan Carlos Danielson [facility] FGR [facility]GR OUTPATIENT [id number] wouned infected Guy Kwok Cancel [facility] DIAGNOSTIC TEST [id number] right proximal hamstring tendon tear Mohammad Arian Cancel [facility] THERAPY SERIES [id number] John Paul Viera Cancel [facility] DIAGNOSTIC TEST [id number] right proximal hamstring tendon tear Sid Don [facility] OUTPATIENT [id number] SOV: 3 OF 3(MEDICAR E) John Paul Viera Cancel [facility] OUTPATIENT [id number] SOV: 3 OF 3(MEDICAR E) John Paul Stephensller Cancel [facility] OUTPATIENT [id number] CLASS: YEARLY RYGB 04/20/15 Gonzales Medina Cancel [facility] DIAGNOSTIC TEST [id number] OSTEOARTH RITIS/ RIGHT KNEE PAIN Kyle Valentine 05/08 15:38 :23 Cancel [facility] OUTPATIENT [id number] 1 YEAR F/U Jacob Flip [facility] DIAGNOSTIC TEST [id number] Olimpia Huizar Cancel [facility] FPA FPA NO TECHBILL [id number] consultat ion Nyla Gov-Jake Cancel [facility] [employer] [facility] DIAGNOSTIC TEST [id number] arm paresthes ia Boris Moore Cancel [facility] FGR FGR OUTPATIENT [id number] whole-danielle nt based diet, per Dr. Gurwinder Goncalves-Erika unek Cancel [facility] Med Green FPG FPG OUTPATIENT [id number] six wks 09/04 16:08 :33 Cancel [employer] [facility] OUTPATIENT [id number] 6WK FOLLOW UP LT KNEE REV Jacob Flip [facility] OUTPATIENT [id number] CLASS: YEARLY RYGB 04/20/15 Cancel [facility] MOO MOO CLAUDIA OUTPATIENT [id number] 1 YEAR F/U Jacob Castelan [facility] [place] OUT[place] [id number] MOLE REMOVAL, ADHESION INJ Bre Wong Cancel [facility] OUTPATIENT [id number] 2 WK F/U PER PT Cancel [facility] FGL FGL OUTPATIENT [id number] CHECK SURGICAL WOUND Cancel [facility] Med Gold MOO MOO CLAUDIA DIAGNOSTIC TESTING [id number] left leg anterior swelling Rowdy Bryant Cancel [facility] FPA [facility] NO TECHBILL [id number] BHC Cancel [facility] OUTPATIENT [id number] Possible UTI and mole removal (2) Cancel [facility] FPA [facility] OUTPATIENT [id number] UTI Alma Xiomara Cancel [facility] [id number] UTI [place]ma Xiomara Cancel [facility] [place] OUT[facility] [id number] GENERAL EYE EXAM Enrike Rivera C[facility] OUTPATIENT [id number] er f/u Nyla Gov-Jake Cancel [facility] [place] OUTPATIENT [id number] 6 HYOERTROP HIC SCAR Nidhi Jennings Cancel [facility]
--- OUTSIDE RECORDS SUMMARY | 2024-12-02 16:10 | XMS_ITS | Clinical Summary ---
Author Organization [facility] Address [address] [place] [phone] Phone Care Team Providers Care Air Chipper Name Role Phone Pacheco Mejia DO Primary Care Provider [phone] Justin Herron DO Unavailable [phone] Allergies Active Allergy Reactions Criticality Noted Date Comments Amoxicillin-Pot Clavulanate Hives,Shortn ess of breath,Rash High 01/24/2023 Penicillins Hives,Rash Medium Tetracyclines Other (See comments) Low TOOTHACHE Medications atorvastatin (LIPITOR) 80 mg tabletIndications :coronary artery disease,hyperlipi demia Take 1 tablet (80 mg total) by mouth nightly 12/20/19 23 Active fluticasone propionate (FLONASE) 50 mcg/actuation nasal sprayIndications: Allergic Rhinitis Administer 2 sprays into each nostril daily as needed for allergies Active omeprazole (PriLOSEC) 40 mg capsuleIndication s:Treatment of Non-Bleeding Gastric Disorder Take 1 capsule (40 mg total) by mouth every morning 11/26/19 23 Active buPROPion SR (WELLBUTRIN SR) 100 mg 12 hr tabletIndications :Anxiety with Depression Take 1 tablet (100 mg total) by mouth every morning Active cetirizine 10 mg capsuleIndication s:Seasonal Allergic Rhinitis Take 10 mg by mouth every morning Active docusate sodium (COLACE) 100 mg capsuleIndication s:constipation Take 1 capsule (100 mg total) by mouth daily as needed for constipation Active iron,carbonyl-vit mello C 65 mg iron- 125 mg tablet,delayed release (DR/EC)Indication s:Iron Deficiency Anemia Take 1 tablet by mouth every morning Active cyanocobalamin (Vitamin B-12) 1,000 mcg tabletIndications :Prevention of Vitamin B12 Deficiency Take 1 tablet (1,000 mcg total) by mouth every morning Active DULoxetine DR (CYMBALTA) 60 mg capsuleIndication s:Anxiety with Depression Take 1 capsule (60 mg total) by mouth nightly Active melatonin 10 mg tabletIndications :sleep Take 1 tablet (10 mg total) by mouth nightly Active loratadine (CLARITIN) 5 mg chewable tabletIndications :Allergic Rhinitis Take 1 tablet (5 mg total) by mouth nightly Active multivit-min/iron /folic acid/K (BARIATRIC MULTIVITAMINS ORAL)Indications: supplement Take 1 tablet by mouth nightly Active calcium citrate-vitamin D3 200 mg-3.125 mcg (125 unit) tabletIndications :Vitamin D Deficiency Take 1 tablet by mouth nightly Active valsartan (DIOVAN) 80 mg tabletIndications :hypertension Take 1 tablet (80 mg total) by mouth every morning 06/21/20 22 Active pregabalin (LYRICA) 50 mg capsuleIndication s:Restless Legs Syndrome Take 1 capsule (50 mg total) by mouth 2 (two) times a day Active hydrOXYzine (ATARAX) 50 mg tabletIndications :anxiety,sleep Take 1 tablet (50 mg total) by mouth nightly 10/21/19 25 Active hydrOXYzine (ATARAX) 10 mg tabletIndications :anxiety Take 1 tablet (10 mg total) by mouth every 6 (six) hours as needed for anxiety 10/21/19 25 Active nitroglycerin (NITROSTAT) 0.4 mg SL tabletIndications :acute episode of anginal pain Place 1 tablet (0.4 mg total) under the tongue every 5 (five) minutes as needed for chest pain 10/07/19 25 Active methocarbamoL (ROBAXIN) 750 mg tabletIndications :Muscle Spasm Take 1 tablet (750 mg total) by mouth as needed for muscle spasms 05/23/20 22 Active LORazepam (ATIVAN) 0.5 mg tabletIndications :anxiety Take 1 tablet (0.5 mg total) by mouth as needed for anxiety 05/22/20 22 Active acetaminophen 500 mg capsuleIndication s:Pain Take 2 capsules (1,000 mg total) by mouth every 6 (six) hours as needed for headaches 02/29/20 23 Active ascorbic acid (vitamin C) 1,000 mg tabletIndications :Vitamin C Deficiency Take 1 tablet (1,000 mg total) by mouth every morning 03/01/20 23 Active flaxseed oiL ([place]-3 flaxseed oiL) 1,000 mg capsuleIndication s:supplement Take 1 capsule (1,000 mg total) by mouth 2 (two) times a day 06/23/20 24 Active chlorhexidine (HIBICLENS) 4 % external liquidIndications :Skin Disinfection Apply topically daily for 5 days 236 mL 12/05/19 25 025 Active chlorhexidine (PERIDEX) 0.12 % oral rinse Apply 15 mL to the mouth or throat 3 (three) times a day for 5 days Swish and rinse for at least 30 seconds . Do not rinse or drink for 1-2 hours after use. 225 mL 12/05/19 25 025 Active mupirocin (BACTROBAN) 2 % ointment Apply to each nostril 2 (two) times a day for 5 days 22 g 12/05/19 25 025 Active artificial tears (SYSTANE) 0.3 % gelIndications:Dr sears Eye Apply 1 drop to both eyes daily as needed Active Active Problems Problem Noted Date Diagnosed Date Single vessel coronary artery disease 10/29/2024 Aortic stenosis, severe 10/15/2024 Allergic rhinitis 01/24/2023 Anemia 01/24/2023 Anxiety 01/24/2023 Arthritis 01/24/2023 Heart murmur 01/24/2023 Heart valve disease 01/24/2023 Hypertension 01/24/2023 Obesity 01/24/2023 Peripheral neuropathy 01/24/2023 Chronic post-traumatic stress disorder (PTSD) Encounters Date Type Department Care Team Description 12/01/2024 Telephone [facility] Cardiology [address] [facility] 8th [place] [address] [place] [address] Brigitte Sanchez, SLIP FEEDER 12/01/2024 Telephone [facility] Cardiothoracic Surgery [address] [facility] Advanced Medicine 8th Floor [address] Room [address] [place] [phone] KatelynSigrid RMA 11/27/2024 12:00 PM CDT Pre-Admission Testing [facility] ([facility]) [address] [place] [phone] Preop testing; Aortic valve stenosis, etiology of cardiac valve disease unspecified 11/14/2024 Documentation [facility] Cardiothoracic Surgery [facility] Advanced Medicine 8th Floor [address] Room [address] [place] [phone] Erika Valera NP 11/13/2024 Orders Only [facility] Anesthesia 1 [place] [address] Brina Rico NP Preop testing (Primary Dx); Aortic valve stenosis, etiology of cardiac valve disease unspecified 11/13/2024 Telephone [facility] Cardiothoracic Surgery [address] [place] [address] Advanced Medicine 8th Floor [address] Room [address] [place] [phone] Naz Gordillo NP 11/12/2024 3:00 PM CDT Pre-Admission Testing [facility] ([facility]) [address] [place] [phone] Preoperative testing (Primary Dx); Easy bruising 11/12/2024 1:19 PM CDT - 11/12/2024 11:59 PM CDT Hospital Encounter [facility] Radiology [facility] ([facility]) [address] [place] [address] Aortic stenosis, severe Discharge Disposition: Discharge to home or self care 11/07/2024 Telephone [facility] Cardiothoracic Surgery [address] [place] [address] Advanced Medicine 8th Floor [address] Room [address] [place] [phone] Naz Gordillo NP 10/30/2024 Orders Only [facility] Cardiothoracic Surgery [address] [place] [address] Advanced [facility] 8th Floor [address] Room [address] [place] [phone] Naz Gordillo NP 10/27/2024 8:30 AM CDT Office Visit [facility] Cardiothoracic Surgery [address] [facility] Advanced [facility] 8th Floor [address] Room [address] [place] [phone] Indiana Mortensen MD Nonrheumatic aortic (valve) stenosis 10/27/2024 Orders Only [facility] Cardiothoracic Surgery [address] [facility] 8th Floor [address] Room [address] [place] [phone] Naz Gordillo NP Aortic stenosis, severe (Primary Dx) 2024 6:58 PM CDT - 2024 11:59 PM CDT Hospital Encounter [facility] Radiology [facility] ([facility]) [address] [place] [address] Discharge Disposition: Discharge to home or self care 10/20/2024 5:45 PM CDT - 10/20/2024 11:59 PM CDT Hospital Encounter [facility] ([facility]) [address] [place] [address] Discharge Disposition: Discharge to home or self care 10/15/2024 9:58 AM CDT - 10/15/2024 11:59 PM CDT Hospital Encounter [facility] ([facility]) [address] [place] [address] Discharge Disposition: Discharge to home or self care 09/24/2024 Telephone [facility] Cardiology [address] [place] [address] Salomon Sargent MD from Last [...] Maternal Grandmother Heart disease Mother Hypertension Mother Anesthesia problems Neg Hx Relation Name Status Comments Brother Maternal Grandfather Alive Maternal Grandmother Alive Mother Social History Tobacco Use Types Packs/Day Years Used Date Smoking Tobacco: Never Passive Smoke Exposure: Past Smokeless Tobacco: Never Tobacco Cessation:Counseling Given: Not Answered Passive Exposure Comments:as a child AUDIT-C Answer [...] on file Legal Sex Female 3:02 PM INFORMATICS PHYSICIAN LIAISON Gender Identity Female 01/25/2023 3:47 PM CDT Sexual Orientation Straight 11/20/2024 5: 09 PM CDT Occupation Industry Job Start Date Job End Date DISABLED Not on file Not on file Not on file Obstetrics History Last Filed Vital Signs Vital Sign Reading Time Taken Comments Blood Pressure 120/54 11/12/2024 3:20 PM CDT Pulse 80 11/12/2024 3:00 PM CDT Temperature - - Respiratory Rate 18 11/12/2024 3:00 PM CDT Oxygen Saturation 96% 11/12/2024 3:00 PM CDT Inhaled Oxygen Concentration - - Weight 129.8 kg (286 lb 2.5 oz) 11/12/2024 3:00 PM CDT Height 160 cm (5' 3 ) 11/12/2024 3:00 PM CDT Body Mass Index 50.69 11/12/2024 3:00 PM CDT Plan of Treatment Upcoming Encounters Date Type Department Care Team (Latest Contact Info) Description 12/09/2024 7:00 AM CDT Hospital Encounter [facility] Operating Room 1 [place] [address] Indiana Mortensen MD [address] [facility] [id number] [place] [address] 12/09/2024 7:00 AM CDT Anesthesia Event [facility] Operating Room [address] [place] [address] Omayra Linares, NEURORADIOLOGIST [address] [place] [address] 12/09/2024 7:00 AM CDT - 12/09/2024 2:55 PM CDT Surgery [facility] Operating Room [address] [place] [address] Indiana Mortensen MD [address] [facility] [id number] [place] [address] REPLACEMENT AORTIC VALVE WITH ROOT ENLARGEMENT Scheduled Procedures Name Priority Associated Diagnoses Date/Ti me REPLACEMENT AORTIC VALVE/ROOT Aortic stenosis, severe Single vessel coronary artery disease 12/09/2024 7:00 AM CDT CORONARY ARTERY BYPASS GRAFT WITH PUMP Aortic stenosis, severe Single vessel coronary artery disease 12/09/2024 7:00 AM CDT ENDOSCOPIC VESSEL HARVEST Aortic stenosis, severe Single vessel coronary artery disease 12/09/2024 7:00 AM CDT Health Maintenance Due Date Last Done Comments Breast Cancer Screening-Mammogram 1962 Cervical Cancer Screening 1962 Colon Cancer Screening-Colonoscopy 1962 Depression Screening 1962 Hepatitis C Screening 1962 Hepatitis B Screening 1980 Regular Well Visit/Exam 18-64 1980 Zoster Vaccine (1 of 2) 2012 Covid-19 Vaccine ( - season) 2024 07/10/2023, 05/13/2021, 10/14/2020, Additional history exists Influenza Vaccine (Season Ended) 2025 DTaP/Tdap/Td Vaccine (2 - Td or Tdap) 01/23/2034 01/24/2024 Pneumococcal vaccine <65 Aged Out 01/24/2024, 04/16 No longer eligible based on patient's age to complete this topic Procedures Procedure Name Priority Date/Time Associated Diagnosis Comments EGFR Routine 11/27/2024 12:51 PM CDT Preop testing DIFFERENTIAL AUTO Routine 11/27/2024 12: 51 PM CDT Preop testing CPAP APTT ALGORITHM Routine 11/27/2024 1 2:51 PM CDT Preop testing PROTIME-INR Routine 11/27/2024 12:51 PM CDT Preop testing Aortic valve stenosis, etiology of cardiac valve disease unspecified TYPE AND SCREEN 14 DAY Routine 11/27/2024 12:51 PM CDT Preop testing CBC WITH AUTO DIFFERENTIAL Routine 11/27/2024 12:51 PM CDT Preop testing COMPREHENSIVE METABOLIC PANEL Routine 11/27/2024 12:51 PM CDT Preop testing URINALYSIS, MICROSCOPIC ONLY Routine 11/12/2024 5:27 PM CDT Preoperative testing URINALYSIS AND REFLEX TO MICROSCOPIC AND CULTURE Routine 11/12/2024 5:27 PM CDT Preoperative testing ECG 12-LEAD Routine 11/12/2024 4:13 [address]T Pre[address] testing CT TAVR Schedule Routine, Read Routine (OP Routine) 11/12/2024 2:25 PM CDT Aortic stenosis, severe POCT CREATININE - DEVICE Routine 11/12/2024 1:38 PM CDT US TRANSFER OF OUTSIDE FILMS Routine 2024 6:[address] BODY OUTSIDE REFERENCE Routine 10/20/2024 5:45 PM CDT IR OUTSIDE REFERENCE Routine 10/15/2024 9:58 AM CDT from Last 3 Months Results * TYPE AND SCREEN 14 DAY (11/27/2024 12:51 PM CDT) Sarah, indirect Negative ABO Rh B Negative [facility] Blood 11/27/2024 12:5 1 PM CDT 11/27/2024 1:18 PM CDT Narrative [facility] - 11/27/2024 2:33 PM CDT Has the patient had Daratumumab or Isatuximab in the past 6 months?->Unknown Is this test being ordered in advance for a procedure?->Yes Expected date of procedure:->12/09/24 Has the patient been transfused in the past 3 months?->No Has the patient been in the past 3 months?->No Brina Rico NP LAB BLOOD BANK TEST ORDER ROSY Final Result [facility] [place] [address] * eGFR (11/27/2024 12:51 PM CDT) eGFR 73 >=60 mL/min/1. 73 m2 Comment: Interpretive Data Reference Interval Normal >/= 90 mL/min/1.73m2 Mildly decreased* 60 - 89 mL/min/1.73m2 Mildly to moderately decreased 45 - 59 mL/min/1.73m2 Moderately to severely decreased 30 - 44 mL/min/1.73m2 Severely decreased 15 - 29 mL/min/1.73m2 Kidney Failure < 15 mL/min/1.73m2 *Relative to young adult level Estimated glomerular filtration rate is determined by the 2020 CKD-EPI equation recommended by the National Kidney Foundation (A Unifying Approach to GFR Estimation: Recommendations of the NKF-ASK Task Force on Reassessing the Inclusion of Race in Diagnosing Kidney Disease, JASN 2020). The CKD-EPI equation should not be used for patients with unstable renal function and has not been validated in children and those over 70. Current interpretive data was last reviewed 2021. Blood 11/27/2024 12:5 1 PM CDT 11/27/2024 1:32 PM CDT Brina Rico NP LAB BLOOD ORDERABLES Brenda wharton Result [facility] [place] [address] * Differential, auto (11/27/2024 12:51 PM CDT) Neutrophil abs 6.41 1.50 - 6.50 K/cumm Imm gran abs 0.04 0.00 - 0.10 K/cumm [facility] Lymphocyte abs 1.34 0.80 - 3.30 K/cumm [facility] Monocyte abs 0.51 0.20 - 0.80 K/cumm [facility] Eosinophil abs 0.31 0.00 - 0.50 K/cumm [facility] Basophil abs 0.05 0.00 - 0.10 K/cumm [facility] Neutrophil pct 73.9 % [facility] Comment: Interpretive Data Percent cell count reference ranges are not reported, since discordance with absolute values may lead to misinterpretation of CBC data. Current Interpretive Data was last revised on 2017. Imm gran pct 0.5 % [facility] Comment: Interpretive Data Percent cell count reference ranges are not reported, since discordance with absolute values may lead to misinterpretation of CBC data. Current Interpretive Data was last revised on 2017. Lymphocyte pct 15.5 % [facility] Comment: Interpretive Data Percent cell count reference ranges are not reported, since discordance with absolute values may lead to misinterpretation of CBC data. Current Interpretive Data was last revised on 2017. Monocyte pct 5.9 % [facility] Comment: Interpretive Data Percent cell count reference ranges are not reported, since discordance with absolute values may lead to misinterpretation of CBC data. Current Interpretive Data was last revised on 2017. Eosinophil pct 3.6 % [facility] Comment: Interpretive Data Percent cell count reference ranges are not reported, since discordance with absolute values may lead to misinterpretation of CBC data. Current Interpretive Data was last revised on 2017. Basophil pct 0.6 % [facility] Comment: Interpretive Data Percent cell count reference ranges are not reported, since discordance with absolute values may lead to misinterpretation of CBC data. Current Interpretive Data was last revised on 2017. Blood 11/27/2024 12:5 1 PM CDT 11/27/2024 1:32 PM CDT Brina Rico NP LAB BLOOD ORDERABLES Brenda l Result [facility] [place] [address] * CPAP aPTT algorithm (11/27/2024 12:51 PM CDT) aPTT 32 28 - 38 sec Comment: Interpretive Data Heparin therapeutic range: 66.0 - 100.0 seconds. Range based on correlation with therapeutic heparin activity range of 0.3 - 0.7 Units/mL. Current interpretive data was last revised on 2023. Blood 11/27/2024 12:5 1 PM CDT 11/27/2024 1:27 PM CDT Brina Lalita Dolnick NEURORADIOLOGIST LAB BLOOD ORDERABLES Brenda l Result Performing Organization Address [facility] de Phone Number [facility] [place] [address] * (ABNORMAL) CBC with auto differential (11/27/2024 12:51 PM CDT) [facility] WBC 8.66 3.80 - 9.90 K/cumm Hgb 13.1 11.9 - 15.5 g/dL [facility] Hct 37.5 35.6 - 45.5 % [facility] Plt 246 150 - 400 K/cumm [facility] MPV 8.2(L) 9.1 - 12.3 fL [facility] RBC 4.24 3.90 - 5.20 M/cumm [facility] MCV 88.4 81.3 - 96.4 fL [facility] MCH 30.9 27.1 - 33.3 pg [facility] MCHC 34.9 32.3 - 35.7 g/dL [facility] RDW CV 13.5 11.1 - 14.9 % [facility] RDW SD 43.8 35.7 - 48.1 fL [facility] NRBC abs 0.00 0.00 - 0.01 K/cumm [facility] Blood 11/27/2024 12:5 1 PM CDT 11/27/2024 1:32 PM CDT Brina Rico NEURORADIOLOGIST LAB BLOOD ORDERABLES Brenda l Result Performing Organization Address [facility] Co de Phone Number [facility] [place] [address] * Protime-INR (11/27/2024 12:51 PM CDT) [facility] PT 12.2 9.7 - 13.0 sec INR 1.13 0.90 - 1.20 [facility] Comment: Interpretive data Oral anticoagulant therapeutic ranges: Venous thromboembolism prophylaxis or treatment: 2.0-3.0 CARDIOLOGY Standard range: 2.0-3.0 High-intensity range: 2.5-3.5 Refer to indication-specific guidelines for appropriate target ranges for prosthetic heart valve replacement. Current interpretive data was last revised on 2019. Blood 11/27/2024 12:5 1 PM CDT 11/27/2024 1:27 PM CDT Brinaelizabeth Rico NEURORADIOLOGIST LAB BLOOD ORDERABLES Brenda wharton Result [facility] [place] [address] * Comprehensive metabolic panel (11/27/2024 12:51 PM CDT) Sodium 142 135 - 145 mmol/L Potassium, pl 4.3 3.3 - 4.9 mmol/L [facility] Chloride 108 97 - 110 mmol/L [facility] CO2 26 22 - 32 mmol/L [facility] Anion gap 8 2 - 15 mmol/L [facility] BUN 20 6 - 25 mg/dL [facility] Creatinine 0.89 0.60 - 1.10 mg/dL [facility] Glucose 96 70 - 199 mg/dL [facility] Comment: Interpretive Data Fasting glucose >/= 126 mg/dl is diagnostic for diabetes. Fasting is defined as no caloric intake for at least 8 hours. Fasting glucose between 100 mg/dl to 125 mg/dl is diagnostic of prediabetes. In a patient with classic symptoms of hyperglycemia or hyperglycemic crisis, a random glucose >/= 200 mg/dl is diagnostic for diabetes. In the absence of unequivocal hyperglycemia, results should be confirmed by repeat testing. The classification and Diagnosis of Diabetes Diabetes Care 202; 46: S19-S40. Current interpretive data was last revised 2022. Calcium 9.6 8.5 - 10.3 mg/dL [facility] Bilirubin, total 0.7 0.1 - 1.2 mg/dL [facility] Protein, pl 6.5 6.5 - 8.5 g/dL [facility] Albumin 4.2 3.5 - 5.0 g/dL [facility] Alk phos 54 40 - 130 Units/L [facility] ALT 23 7 - 45 Units/L [facility] AST 25 10 - 45 Units/L [facility] Blood 11/27/2024 12:5 1 PM CDT 11/27/2024 1:32 PM CDT us Brina Rico NEURORADIOLOGIST LAB BLOOD ORDERABLES Brenda l Result Performing Organization Address City/[facility]/ZIP Co de Phone Number [facility] [place] [address] * (ABNORMAL) Urinalysis reflex to microscopic and culture Urine, clean voided (11/12/2024 5:27 PM CDT) Color, ur Straw Yellow Clarity, ur Clear Clear [facility] Specific gravity, ur >1.042(H) 1.003 - 1.030 [facility] pH, urine 6.5 [facility] Comment: Interpretive Data U rine pH is affected by diet, medications, systemic acid-base disturbances, and renal tubular function. pH may affect urinary stone formation. For example, urine pH below 6.0 may help reduce the tendency for calcium phosphate stones and pH greater than 6.0 may reduce the tendency for uric acid stone formation. Source: [facility] Current Interpretive Data was last revised on 2017 Protein, ur ql Trace Negative [facility] Glucose, ur ql Negative Negative [facility] Ketones, ur Negative Negative [facility] Bilirubin, ur Negative Negative [facility] Blood, ur Negative Negative [facility] Urobilinogen, ur <2.0 <2.0 mg/dL [facility] Nitrite, ur Negative Negative [facility] Leukocyte esterase, ur 1+(A) Negative [facility] UA reflex comment Reflex to microscopic UA will be performed. [facility] Urine, clean voided 11/12/2024 5:27 PM CDT 11/12/2024 5:51 PM CDT us Luz Bustos NEURORADIOLOGIST LAB MICROBIOLOGY - GE NERAL ORDERABLES Final Result Performing Organization Address [facility]/ZIP Co de Phone Number [facility] [place] [address] * (ABNORMAL) Urinalysis, microscopic only (11/12/2024 5:27 PM CDT) WBC, ur 6-10(A) 0 - 5 /HPF RBC, ur 0-2 0 - 2 /HPF [facility] Epithelial cells, squamous, ur 6-10(A) 0 - 5 /HPF [facility] Comment:Suggestive of contam ination. Consider recollection by clean catch. Culture Reflex Comment Reflex conditions for urine culture (WBC >10) not met. [facility] Urine, clean voided 11/12/2024 5:27 PM CDT 11/12/2024 5:51 PM CDT Luz Bustos NP LAB URINE ORDERABLES Final Result [facility] [place] [address] * ECG 12 lead (11/12/2024 4:13 PM CDT) Ventricular Rate EKG/Min 70 BPM [facility] Atrial Rate 70 BPM [facility] AL-Interval (MSEC) 206 ms [facility] QRS-Interval (MSEC) 102 ms [facility] QT-Interval (MSEC) 428 ms [facility] QTc 462 ms [facility] P [place] 36 degrees [facility] R [place] -21 degrees [facility] T [place] 108 degrees [facility] Diagnosis Normal sinus rhythm Moderate voltage criteria for LVH, may be normal variant ( R in aVL , [place] product ) ST & T wave abnormality, consider lateral ischemia Abnormal ECG When compared with ECG of 18-OCT-2010 13:54, PREVIOUS ECG IS PRESENT Confirmed by Hank Albert MD ([id number]) on 11/13/2024 12:46:48 PM [facility] 11/12/2024 4:13 PM CDT 11/13/2024 12:46 PM CDT us Luz Kathia Akash NEURORADIOLOGIST ECG ORDERABLES Final Result [facility] * CT TAVR (11/12/2024 2:25 PM CDT) Anatomical Region Laterality Modality Chest N/A Computed Tomogra phy 11/12/2024 3:24 PM CDT Impressions 11/14/2024 12:01 PM CDT 1. Aortic annulus, and abdominal aortic, common iliac, external iliac, and femoral artery measurements in preparation for TAVR procedure as described above. 2. Aortic valve calcium score: Agatston 1253, volume 1009 mm3 3. 1.8 cm indeterminate left adrenal nodule. This is unchanged from the recent exam on 10/02/2024. If no more remote imaging is available to document stability, recommend further evaluation with renal protocol CT. 4. 3.3 cm right adnexal mass, which is larger than expected for normal right ovarian tissue given the reported age. Recommend further evaluation with ultrasound. Dictated by: Felipe Souza MD, PHD The radiology attending physician has personally reviewed this study, and had reviewed and/or edited this written report and agrees with it. Electronically signed by: Osvaldo Ace M.D. Narrative 11/14/2024 12:01 PM CDT EXAMINATION: CT TAVR HISTORY: Severe aortic stenosis, pre-TAVR procedure. TECHNIQUE: Heart CT and CT angiogram of the abdomen and pelvis performed during intravenous administration of 121 mL of Optiray 350 per the TAVR Protocol. Images were transferred to an independent workstation for additional 3D post-processing. COMPARISON: CT 10/02/2024 FINDINGS: Annulus and thoracic aortic measurements (in systole): Aortic valve annulus: Area 324 mm2; circumference 67 mm; 24 mm maximum diameter x 17 mm minimum diameter Sinuses of Valsalva: 31 mm x 30 mm x 30 mm [id number] Sinotubular junction: 28 mm x 27 mm Maximum ascending aorta: 36 x 34 mm Distance to RCA ostium from aortic valve annulus: 11 mm Distance to left main ostium from annulus: 13 mm Deployment angle: 23 MAORI, 14 Cranial Right coronary sinus height: 19 mm Left coronary sinus height: 21 mm Non-coronary sinus height: 24 mm Aortic valve calcium score: Agatston 1253, volume 1009 mm3 There is moderate left ventricular outflow tract calcification. There is severe mitral annular calcification. Coronary arteries: Anomalous coronary artery course: No Left main atherosclerosis: Mild LAD atherosclerosis: Severe Circumflex atherosclerosis: Moderate, left dominant RCA atherosclerosis: Mild Abdominal aortic and pelvic arterial smallest diameter measurements (made from centerline curved MPRs): Infrarenal aorta: 13 mm x 14 mm. There is mild calcification. Right common iliac artery: 8 mm x 10 mm. There is mild calcification. Left common iliac artery: 9 mm x 9 mm. There is mild calcification. There is mild tortuosity of the bilateral common iliac arteries. This is equal in distribution. Right external iliac artery: 9 mm x 9 mm. There is mild calcification. Left external iliac artery: 9 mm x 10 mm. There is mild calcification. There is moderate tortuosity of the bilateral external iliac arteries. This is equal in distribution. Right common femoral artery: 8 mm. There is mild calcification. Left common femoral artery: 8 mm. There is mild calcification. There is mild tortuosity of the bilateral femoral arteries. This is equal in distribution. Other findings: Left atrium is mildly enlarged. There is no pericardial effusion. Severe mitral annular calcifications. The thoracic aorta is normal in caliber. Cluster of small left thyroid nodules. No supraclavicular or axillary lymphadenopathy. No pathologically enlarged mediastinal or hilar lymph nodes. There is no pleural effusion or pneumothorax. The lungs are clear. No suspicious hepatic lesion. There is layering stones and/or sludge in the gallbladder but no evidence of acute cholecystitis. No bile duct dilatation. Pancreas and spleen are normal. The right adrenal gland is normal. 1.8 cm left adrenal nodule, which is indeterminate (series 11, image 10). The kidneys enhance symmetrically. There is no hydronephrosis. Urinary bladder is within normal limits. Uterus is absent. 3.3 x 2.7 cm right adnexal mass (series 11, image 124), which appears larger than expected for normal right ovarian tissue given reported age. No ascites or pneumoperitoneum. The large and small bowel are normal in caliber. Changes of partial gastric resection. The abdominal aorta is normal in caliber. No lymphadenopathy in the abdomen or pelvis. Degenerative changes in the spine. No suspicious lytic or blastic lesion. Procedure Note Osvaldo Ace MD - 11/14/2024 EXAMINATION: CT TAVR HISTORY: Severe aortic stenosis, pre-TAVR procedure. TECHNIQUE: Heart CT and CT angiogram of the abdomen and pelvis performed during intravenous administration of 121 mL of Optiray 350 per the TAVR Protocol. Images were transferred to an independent workstation for additional 3D post-processing. COMPARISON: CT 10/02/2024 FINDINGS: Annulus and thoracic aortic measurements (in systole): Aortic valve annulus: Area 324 mm2; circumference 67 mm; 24 mm maximum diameter x 17 mm minimum diameter Sinuses of Valsalva: 31 mm x 30 mm x 30 mm [id number] Sinotubular junction: 28 mm x 27 mm Maximum ascending aorta: 36 x 34 mm Distance to RCA ostium from aortic valve annulus: 11 mm Distance to left main ostium from annulus: 13 mm Deployment angle: 23 MAORI, 14 Cranial Right coronary sinus height: 19 mm Left coronary sinus height: 21 mm Non-coronary sinus height: 24 mm Aortic valve calcium score: Agatston 1253, volume 1009 mm3 There is moderate left ventricular outflow tract calcification. There is severe mitral annular calcification. Coronary arteries: Anomalous coronary artery course: No Left main atherosclerosis: Mild LAD atherosclerosis: Severe Circumflex atherosclerosis: Moderate, left dominant RCA atherosclerosis: Mild Abdominal aortic and pelvic arterial smallest diameter measurements (made from centerline curved MPRs): Infrarenal aorta: 13 mm x 14 mm. There is mild calcification. Right common iliac artery: 8 mm x 10 mm. There is mild calcification. Left common iliac artery: 9 mm x 9 mm. There is mild calcification. There is mild tortuosity of the bilateral common iliac arteries. This is equal in distribution. Right external iliac artery: 9 mm x 9 mm. There is mild calcification. Left external iliac artery: 9 mm x 10 mm. There is mild calcification. There is moderate tortuosity of the bilateral external iliac arteries. This is equal in distribution. Right common femoral artery: 8 mm. There is mild calcification. Left common femoral artery: 8 mm. There is mild calcification. There is mild tortuosity of the bilateral femoral arteries. This is equal in distribution. Other findings: Left atrium is mildly enlarged. There is no pericardial effusion. Severe mitral annular calcifications. The thoracic aorta is normal in caliber. Cluster of small left thyroid nodules. No supraclavicular or axillary lymphadenopathy. No pathologically enlarged mediastinal or hilar lymph nodes. There is no pleural effusion or pneumothorax. The lungs are clear. No suspicious hepatic lesion. There is layering stones and/or sludge in the gallbladder but no evidence of acute cholecystitis. No bile duct dilatation. Pancreas and spleen are normal. The right adrenal gland is normal. 1.8 cm left adrenal nodule, which is indeterminate (series 11, image 10). The kidneys enhance symmetrically. There is no hydronephrosis. Urinary bladder is within normal limits. Uterus is absent. 3.3 x 2.7 cm right adnexal mass (series 11, image 124), which appears larger than expected for normal right ovarian tissue given reported age. No ascites or pneumoperitoneum. The large and small bowel are normal in caliber. Changes of partial gastric resection. The abdominal aorta is normal in caliber. No lymphadenopathy in the abdomen or pelvis. Degenerative changes in the spine. No suspicious lytic or blastic lesion. IMPRESSION: 1. Aortic annulus, and abdominal aortic, common iliac, external iliac, and femoral artery measurements in preparation for TAVR procedure as described above. 2. Aortic valve calcium score: Agatston 1253, volume 1009 mm3 3. 1.8 cm indeterminate left adrenal nodule. This is unchanged from the recent exam on 10/02/2024. If no more remote imaging is available to document stability, recommend further evaluation with renal protocol CT. 4. 3.3 cm right adnexal mass, which is larger than expected for normal right ovarian tissue given the reported age. Recommend further evaluation with ultrasound. Dictated by: Felipe Souza MD, PHD The radiology attending physician has personally reviewed this study, and had reviewed and/or edited this written report and agrees with it. Electronically signed by: Osvaldo Ace M.D. Naz Gordillo NP [facility] CT PROCEDURES Final Result * POCT creatinine (11/12/2024 1:38 PM CDT) Creatinine POC 0.9 0.6 - 1.1 mg/dL Blood 11/12/2024 1:38 PM CDT 11/12/2024 1:38 PM CDT Naz Kang Rand NEURORADIOLOGIST LAB POCT ORDERABLES - DE VICE Final Result Performing Organization Address [facility] Co de Phone Number ALEX Jordan [facility] Department [place] [address] * US Outside Reference (2024 6:58 PM CDT) Impressions [facility] - 2024 6:58 PM CDT These images are for Reference purposes only and have not been reviewed by [facility] Radiology. There will be no report generated by a [facility] Radiologist. Narrative [facility] - 2024 6:58 PM CDT EXAMINATION: Images For Reference Purposes Only Indiana Mortensen MD IMG US PROCEDURES Final Resul t Performing Organization Address [facility] de Phone Number [email or web address] * CT Body Outside Reference (10/20/2024 5:45 PM CDT) Impressions [facility] - 10/20/2024 5:45 PM CDT These images are for Reference purposes only and have not been reviewed by [facility]iology. There will be no report generated by a [facility] Radiologist. Narrative [facility] - 10/20/2024 5:45 PM CDT EXAMINATION: Images For Reference Purposes Only Indiana Mortensen MD IMG CT PROCEDURES Final Resul t Performing Organization Address [facility] Co de Phone Number [email or web address] * IR Outside Reference (10/15/2024 9:58 AM CDT) Impressions [facility] - 10/15/2024 9:58 AM CDT These images are for Reference purposes only and have not been reviewed by [facility] Radiology. There will be no report generated by a [facility] Radiologist. 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
--- OUTSIDE RECORDS SUMMARY | 2024-12-02 16:10 | XMS_ITS | Referral Summary ---
Author Organization [facility] Address [address] [place] [address] Phone Care Team Providers Care Hamper Maker Name Role Phone Pacheco Mejia DO Primary Care Provider [phone] Justin Herron DO Unavailable [phone] Encounters Date Type Department Care Team Description 12/01/2024 Telephone [facility] Cardiology [address] 8th [place] [address] [place] [address] Brigitte Sanchez CNS 12/01/2024 Telephone [facility] Cardiothoracic Surgery [address] 8th Floor [address] Room [address] [place] [phone] Sigrid Zepeda RMA 11/27/2024 12:00 PM CDT Pre-Admission Testing [facility] [address] [place] [address] Preop testing; Aortic valve stenosis, etiology of cardiac valve disease unspecified 11/14/2024 Documentation [facility] Cardiothoracic Surgery [address] 8th [address] Room [address] [place] [phone] Erika Valera NP 11/13/2024 Orders Only [facility] Anesthesia [address] [facility] [place] [address] Brina Rico NP Preop testing (Primary Dx); Aortic valve stenosis, etiology of cardiac valve disease unspecified 11/13/2024 Telephone [facility] Cardiothoracic Surgery [facility] 8th [address] Room [address] [place] [phone] Naz Gordillo NP 11/12/2024 3:00 PM CDT Pre-Admission Testing [facility] ([facility]) [address] [place] [address] Preoperative testing (Primary Dx); Easy bruising 11/12/2024 1:19 PM CDT - 11/12/2024 11:59 PM CDT Hospital Encounter [facility] ([facility]) [address] [place] [address] Aortic stenosis, severe Discharge Disposition: Discharge to home or self care 11/07/2024 Telephone [facility] Cardiothoracic Surgery [address] [place] [address] 8th [address] Room [address] [place] [phone] Naz Gordillo NP 10/30/2024 Orders Only [facility] Cardiothoracic Surgery [address] [place] [address] 8th [address] Room [address] [place] [phone] Naz Gordillo NP 10/27/2024 Orders Only [facility] Cardiothoracic Surgery [address] [place] [address] 8th Floor [address] Room [address] [place] [phone] Naz Gordillo NP Aortic stenosis, severe (Primary Dx) 10/27/2024 8:30 AM CDT Office Visit [facility] Cardiothoracic Surgery [address] [place] [address] 8th [address] Room [address] [place] [phone] Indiana Mortensen MD Nonrheumatic aortic (valve) stenosis 2024 6:58 PM CDT - 2024 11:59 PM CDT Hospital Encounter [facility] [address] [place] [address] Discharge Disposition: Discharge to home or self care 10/20/2024 5:45 PM CDT - 10/20/2024 11:59 PM CDT Hospital Encounter [facility] [address] [place] [address] Discharge Disposition: Discharge to home or self care 10/15/2024 9:58 AM CDT - 10/15/2024 11:59 PM CDT Hospital Encounter [facility] [address] [place] [address] Discharge Disposition: Discharge to home or self care 09/24/2024 Telephone [facility] Cardiology [address] [place] [address] Salomon Sargent MD from Last [...] every morning 03/01/20 23 Active flaxseed oiL (Reasnor-3 flaxseed oiL) 1,000 mg capsuleIndication s:supplement Take [...] on file 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 Gender Identity Female 01/25/2023 3:47 PM CDT [...] Description 12/09/2024 7:00 AM CDT Hospital Encounter [facility] Operating Room 1 [place] [address] Indiana Mortensen MD [id number] [place] [address] 12/09/2024 7:00 AM CDT Anesthesia Event [facility] Operating Room 1 [place] [phone] Omayra Linares, COST ACCOUNTING ANALYST [address] [place] [address] 12/09/2024 7:00 AM CDT - 12/09/2024 2:55 PM CDT Surgery [facility] Operating Room 1 [place] [address] Indiana Mortensen MD [phone] [place] [address] REPLACEMENT AORTIC VALVE WITH ROOT ENLARGEMENT Scheduled Procedures Name Priority Associated Diagnoses Date/Ti me REPLACEMENT AORTIC VALVE/ROOT Aortic stenosis, severe Single vessel coronary artery disease 12/09/2024 7:00 AM CDT CORONARY ARTERY BYPASS GRAFT WITH PUMP Aortic stenosis, severe Single vessel coronary artery disease 12/09/2024 7:00 AM CDT ENDOSCOPIC VESSEL HARVEST Aortic stenosis, severe Single vessel coronary artery disease 12/09/2024 7:00 AM CDT Procedures Procedure Name Priority Date/Time Associated Diagnosis [...] Sarah, indirect Negative ABO Rh B Negative [facility] Blood 11/27/2024 12:5 1 PM CDT 11/27/2024 1:18 PM CDT Narrative [facility] - 11/27/2024 2:33 PM CDT Has the patient had Daratumumab or Isatuximab in the past 6 months?->Unknown Is this test being ordered in advance for a procedure?->Yes Expected date of procedure:->12/09/24 Has the patient been transfused in the past 3 months?->No Has the patient been in the past 3 months?->No us Brina Rico NP LAB BLOOD BANK TEST ORDER ROSY Final Result [facility] Department [place] [address] * eGFR (11/27/2024 12:51 PM CDT) [facility] eGFR 73 >=60 mL/min/1. 73 m2 Comment: [...] 11/27/2024 1:32 PM CDT us Brina Rico NP LAB BLOOD ORDERABLES Brenda wharton Result [facility] [address] [facility] [place] [address] * Differential, auto (11/27/2024 12:51 PM CDT) [facility] Neutrophil abs 6.41 1.50 - 6.50 K/cumm Imm gran abs 0.04 0.00 - 0.10 K/cumm [facility] Lymphocyte abs 1.34 0.80 - 3.30 K/cumm [facility] Monocyte abs 0.51 0.20 - 0.80 K/cumm [facility] Eosinophil abs 0.31 0.00 - 0.50 K/cumm [facility] Basophil abs 0.05 0.00 - 0.10 K/cumm [facility] Neutrophil pct 73.9 % [facility] Comment: Interpretive Data Percent cell count reference ranges are not reported, since discordance with absolute values may lead to misinterpretation of CBC data. Current Interpretive Data was last revised on 2017. Imm gran pct 0.5 % [facility] Comment: Interpretive Data Percent cell count reference ranges are not reported, since discordance with absolute values may lead to misinterpretation of CBC data. Current Interpretive Data was last revised on 2017. Lymphocyte pct 15.5 % [facility] Comment: Interpretive Data Percent cell count reference ranges are not reported, since discordance with absolute values may lead to misinterpretation of CBC data. Current Interpretive Data was last revised on 2017. Monocyte pct 5.9 % [facility] Comment: Interpretive Data Percent cell count reference ranges are not reported, since discordance with absolute values may lead to misinterpretation of CBC data. Current Interpretive Data was last revised on 2017. Eosinophil pct 3.6 % [facility] Comment: Interpretive Data Percent cell count reference ranges are not reported, since discordance with absolute values may lead to misinterpretation of CBC data. Current Interpretive Data was last revised on 2017. Basophil pct 0.6 % [facility] Comment: Interpretive Data Percent cell count reference ranges are not reported, since discordance with absolute values may lead to misinterpretation of CBC data. Current Interpretive Data was last revised on 2017. Blood 11/27/2024 12:5 1 PM CDT 11/27/2024 1:32 PM CDT Brina Rico NP LAB BLOOD ORDERABLES Brenda l Result [facility] [address] [facility] [place] [address] * CPAP aPTT algorithm (11/27/2024 12:51 PM CDT) aPTT 32 28 - 38 sec Comment: Interpretive Data Heparin therapeutic range: 66.0 - 100.0 seconds. Range based on correlation with therapeutic heparin activity range of 0.3 - 0.7 Units/mL. Current interpretive data was last revised on 2023. Blood 11/27/2024 12:5 1 PM CDT 11/27/2024 1:27 PM CDT Brina Rico COST ACCOUNTING ANALYST LAB BLOOD ORDERABLES Brenda wharton Result Performing Organization Address [facility] Co de Phone Number [facility] Department [place] [address] * (ABNORMAL) CBC with auto differential (11/27/2024 12:51 PM CDT) Pathologist [facility] WBC 8.66 3.80 - 9.90 K/cumm Hgb 13.1 11.9 - 15.5 g/dL [facility] Hct 37.5 35.6 - 45.5 % [facility] Plt 246 150 - 400 K/cumm [facility] MPV 8.2(L) 9.1 - 12.3 fL [facility] RBC 4.24 3.90 - 5.20 M/cumm [facility] MCV 88.4 81.3 - 96.4 fL [facility] MCH 30.9 27.1 - 33.3 pg [facility] MCHC 34.9 32.3 - 35.7 g/dL [facility] RDW CV 13.5 11.1 - 14.9 % [facility] RDW SD 43.8 35.7 - 48.1 fL [facility] NRBC abs 0.00 0.00 - 0.01 K/cumm [facility] Blood 11/27/2024 12:5 1 PM CDT 11/27/2024 1:32 PM CDT Brina Rico COST ACCOUNTING ANALYST LAB BLOOD ORDERABLES Brenda l Result Performing Organization Address City/[facility]/ZIP Co de Phone Number [facility] Department [place] [address] * Protime-INR (11/27/2024 12:51 PM CDT) Pathologist [facility] PT 12.2 9.7 - 13.0 sec INR 1.13 0.90 - 1.20 [facility] Comment: Interpretive data Oral anticoagulant therapeutic ranges: Venous thromboembolism prophylaxis or treatment: 2.0-3.0 CARDIOLOGY Standard range: 2.0-3.0 High-intensity range: 2.5-3.5 Refer to indication-specific guidelines for appropriate target ranges for prosthetic heart valve replacement. Current interpretive data was last revised on 2019. Blood 11/27/2024 12:5 1 PM CDT 11/27/2024 1:27 PM CDT us Brina Rico COST ACCOUNTING ANALYST LAB BLOOD ORDERABLES Brenda l Result [facility] [place] [address] * Comprehensive metabolic panel (11/27/2024 12:51 PM CDT) Sodium 142 135 - 145 mmol/L Potassium, pl 4.3 3.3 - 4.9 mmol/L [facility] Chloride 108 97 - 110 mmol/L [facility] CO2 26 22 - 32 mmol/L [facility] Anion gap 8 2 - 15 mmol/L [facility] BUN 20 6 - 25 mg/dL [facility] Creatinine 0.89 0.60 - 1.10 mg/dL [facility] Glucose 96 70 - 199 mg/dL [facility] Comment: Interpretive Data Fasting glucose >/= [...] 2022. Calcium 9.6 8.5 - 10.3 mg/dL [facility] Bilirubin, total 0.7 0.1 - 1.2 mg/dL [facility] Protein, pl 6.5 6.5 - 8.5 g/dL [facility] Albumin 4.2 3.5 - 5.0 g/dL [facility] Alk phos 54 40 - 130 Units/L [facility] ALT 23 7 - 45 Units/L [facility] AST 25 10 - 45 Units/L [facility] Blood 11/27/2024 12:5 1 PM CDT 11/27/2024 1:32 PM CDT Brina Rico NP LAB BLOOD ORDERABLES Brenda l Result [facility] [address] [facility] [place] [address] * (ABNORMAL) Urinalysis reflex to microscopic and culture Urine, clean voided (11/12/2024 5:27 PM CDT) Color, ur Straw Yellow Clarity, ur Clear Clear [facility] Specific gravity, ur >1.042(H) 1.003 - 1.030 [facility] pH, urine 6.5 [facility] Comment: Interpretive Data U rine pH is affected by diet, medications, systemic acid-base disturbances, and renal tubular function. pH may affect urinary stone formation. For example, urine pH below 6.0 may help reduce the tendency for calcium phosphate stones and pH greater than 6.0 may reduce the tendency for uric acid stone formation. Source: [facility] Laboratories Current Interpretive Data was last revised on 2017 Protein, ur ql Trace Negative [facility] Glucose, ur ql Negative Negative [facility] Ketones, ur Negative Negative [facility] Bilirubin, ur Negative Negative [facility] Blood, ur Negative Negative [facility] Urobilinogen, ur <2.0 <2.0 mg/dL [facility] Nitrite, ur Negative Negative [facility] Leukocyte esterase, ur 1+(A) Negative [facility] UA reflex comment Reflex to microscopic UA will be performed. [facility] Urine, clean voided 11/12/2024 5:27 PM CDT 11/12/2024 5:51 PM CDT Luz Bustos COST ACCOUNTING ANALYST LAB MICROBIOLOGY - GE NERAL ORDERABLES Final Result Performing Organization Address [facility] Co de Phone Number [facility] [place] [address] * (ABNORMAL) Urinalysis, microscopic only (11/12/2024 5:27 PM CDT) WBC, ur 6-10(A) 0 - 5 /HPF RBC, ur 0-2 0 - 2 /HPF [facility] Epithelial cells, squamous, ur 6-10(A) 0 - 5 /HPF [facility] Comment:Suggestive of contam ination. Consider recollection by clean catch. Culture Reflex Comment Reflex conditions for urine culture (WBC >10) not met. [facility] Urine, clean voided 11/12/2024 5:27 PM CDT 11/12/2024 5:51 PM CDT Luz Bustos COST ACCOUNTING ANALYST LAB URINE ORDERABLES Final Result Performing Organization Address [facility] Co de Phone Number [facility] [place] [address] * ECG 12 lead (11/12/2024 4:13 PM CDT) Ventricular Rate EKG/Min 70 BPM [facility] Atrial Rate 70 BPM [facility] [place]-Interval (MSEC) 206 ms [facility] QRS-Interval (MSEC) 102 ms [facility] QT-Interval (MSEC) 428 ms [facility] QTc 462 ms [facility] P [place] 36 degrees [facility] R [place] -21 degrees [facility] T [place] 108 degrees [facility] Diagnosis Normal sinus rhythm Moderate voltage criteria for LVH, may be normal variant ( R in aVL , Burns product ) ST & T wave abnormality, consider lateral ischemia Abnormal ECG When compared with ECG of 18-OCT-2010 13:54, PREVIOUS ECG IS PRESENT Confirmed by Hank Albert MD ([id number]) on 11/13/2024 12:46:48 PM [facility] 11/12/2024 4:13 PM CDT 11/13/2024 12:46 PM CDT Luz Bustos COST ACCOUNTING ANALYST ECG ORDERABLES Final Result [facility] * CT TAVR (11/12/2024 2:25 PM CDT) [...] mm x 30 mm x 30 mm [id number] Sinotubular junction: 28 mm x 27 mm Maximum ascending aorta: 36 x 34 mm Distance to RCA ostium from aortic valve annulus: 11 mm Distance to left main ostium from annulus: 13 mm Deployment angle: 23 TURKMEN, 14 Cranial Right coronary sinus height: 19 [...] mm x 30 mm x 30 mm [id number] Sinotubular junction: 28 mm x 27 mm Maximum ascending aorta: 36 x 34 mm Distance to RCA ostium from aortic valve annulus: 11 mm Distance to left main ostium from annulus: 13 mm Deployment angle: 23 TURKMEN, 14 Cranial Right coronary sinus height: 19 [...] by: Osvaldo Ace M.D. Naz Gordillo NP IMG CT PROCEDURES Final Result * POCT creatinine (11/12/2024 1:38 PM CDT) Creatinine POC 0.9 0.6 - 1.1 mg/dL Blood 11/12/2024 1:38 PM CDT 11/12/2024 1:38 PM CDT Naz Gordillo COST ACCOUNTING ANALYST LAB POCT ORDERABLES - DE VICE Final Result Performing Organization Address City/[facility]/ZIP Co de Phone Number [facility] [place] [address] * [place] Outside Reference (2024 6:58 PM CDT) Impressions [facility] - 2024 6:58 PM CDT These images are for Reference purposes only and have not been reviewed by [facility]. There will be no report generated by a [facility] Radiologist. Narrative [facility] - 2024 6:58 PM CDT EXAMINATION: Images For Reference Purposes Only Indiana Mortensen MD IMG US PROCEDURES Final Resul t Performing Organization Address [facility] Co de Phone Number [email or web address] * CT Body Outside Reference (10/20/2024 5:45 PM CDT) Impressions [facility] - 10/20/2024 5:45 PM CDT These images are for Reference purposes only and have not been reviewed by [facility]. There will be no report generated by a [facility] Radiologist. Narrative [facility] - 10/20/2024 5:45 PM CDT EXAMINATION: Images For Reference Purposes Only Indiana Mortensen MD IMG CT PROCEDURES Final Resul t Performing Organization Address City/[facility]/ZIP Co de Phone Number [email or web address] * IR Outside Reference (10/15/2024 9:58 AM CDT) Impressions [facility] - 10/15/2024 9:58 AM CDT These images are for Reference purposes only and have not been reviewed by [facility]. There will be no report generated by a [facility] Radiologist. Narrative [facility] - 10/15/2024 9:58 AM CDT EXAMINATION: Images For Reference Purposes Only us Indiana Mortensen MD IMG IR PROCEDURES Final Resul t [facility] from Last 3 Months Insurance HEALTHCARE Member Subscriber Plan / Payer (Ef fective 2022-Present) Name:Leyla Vega Relation to Subscriber:Self Name:Leyla Vega Payer ID:[id number] (NAIC) Type:MEDICARE RISK OTHER Address: [address] [facility] Care Teams Hamper Maker Relationship Specialty Start Date End Date Pacheco Mejia DO PCP - General Internal Medicine 01/22/23 Justin Herron DO [address] [place] [address] Referring Physician Cardiology 10/14/24
--- OUTSIDE RECORDS SUMMARY | 2024-12-02 16:10 | XMS_ITS | CONTINUITY OF CARE DOCUMENT ---
Author Name harry mcdonald Address Unknown Organization [facility] Office Address [address] [place] [address] [place] [address] Phone [phone] Care Team Providers Care Photographs Curator Name Role Phone Melanie Crater MD Unavailable [phone] Melanie Carter MD Unavailable INSURANCE PROVIDERS Payer name Policy type / Coverage type [employer] Other
== END 2024-12-02 16:04 | disposition home or self-care (01) ==
LOC: ANHIMG 16:06
PROVIDERS: PCP Clinical Nurse Specialist; Visit Provider Nurse Practitioner
DX: Z12.31 Encounter for screening mammogram for malignant neoplasm of breast (principal); R92.8 Other abnormal and inconclusive findings on diagnostic imaging of breast
CPT/HCPCS: 77063; 77067

== ENCOUNTER 2025-02-09 11:03 | Outpatient (CLI) | payer OTHER, MEDICAID, SELFPAY ==
--- OUTSIDE RECORDS SUMMARY | 2025-02-09 11:28 | XMS_ITS | Continuity of Care Document ---
Author Name [facility] Address [address] [place] [address] Organization [facility] Care Team Providers Care Crm Dynamics Developer Name Role Phone [facility] Unavailable Unavailable Problems Problem Status Onset Date Problem Type Date of Resolution Comments Source Acute cystitis (disorder) Active Condition Allergic rhinitis (disorder) Active Condition Anxiety (finding) [...] Condition Sprain of ankle (disorder) Resolved Condition Unspecified open wound of left cheek [...] Patient LIONEL JOSHI Gender Female Name [facility] Number [id number] Date of Study 10/07/2018 Attending Physician Marcell Perez MD Visit [id number] 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 See [place], [facility] Number Date of 1960 Interpreting Andrew [...] Root: 2.88 cm LVOT Diameter: 1.77 cm CD:[email or web address] [email or web address] HNAM URL Echo Transthoracic Complete Transthoraci c Echocardiography Report (TTE) Demographics Patient Name LIONEL JOSHI Gender Female [facility] Number [id number] Date of Study 01/11/2017 Referring Physician Visit Number [id number] 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 Anthony Vallejo Date of 1960 Interpreting [place] [...] Provider ADM Date DC Date Status Source [place] [facility] [id number] R HAND 5TH MC FX Ravinder Toedebusch [facility] Between Visit [id number] 04/02 23:59 :59 Discharg ed [facility] Between Visit [id number] 05/16 23:59 :59 Discharg ed [facility] [place] [facility] [id number] RT HAND FX 1WK FU Ravinder Toedebusch [facility] [place] [facility] [id number] CAST CHANGE-TO O TIGHT [facility] [id number] 4WK F/U Zihao Casillas Cancel [facility] OUTPATIENT [id number] 4WK F/U Zihao Casillas C[facility] ies [facility] OUTPATIENT [id number] annual check up Lavern Kolker Cancel [facility] OUTPATIENT [id number] MSWL PER DR. DARIEL Finch Cancel [facility] OUTPATIENT [id number] fu Lavern Kolker C[facility] [id number] 2 [place] F/U Lavern Kolker C[facility] [id number] 2 [place] F/U Lavern Kolker Cancel [facility] OUTPATIENT [id number] MSWL PER DR. DARIEL Torokisson Cancel [facility] OUTPATIENT [id number] F/U MSWL Tracy Josette Cancel [facility] NO TECHBILL [id number] [phone] - 3 MONTH F/U Lavern Kolker C[facility] DIAGNOSTIC TEST [id number] LANE pre-op John Paul Viera Cancel [facility] FGL [facility] OUTPATIENT [id number] MEDS MAKING PT DIZZY Cancel [facility] [id number] cold symptoms Brionna Bohon Cancel [facility] OUTPATIENT [id number] medicatio n titration Cancel [facility] OUTPATIENT [id number] 6-8 WEEK F/U Cancel [facility] OUTPATIENT [id number] CLASS: 1 MO 04/20/15 Rajan Rodriguez Cancel [facility] OUT[facility] [id number] PRE DOS 01/13 FLIP CLAUDIA L KNEE Juan Carlos Danielson [facility] OUTPATIENT [id number] CLASS: 3 MO 04/20/15 Rajan Rodriguez Cancel [facility] OUTPATIENT [id number] CONSULT LARGE MONS PUBIS-POS S INS See [place] Cancel [facility] Physicia ns Surgery Clinic [facility] OUTPATIENT [id number] CLASS: 1 MO 04/20/15 Rajan Rodriguez Cancel [facility] DIAGNOSTIC TEST [id number] right proximal hamstring tendon tear Sid Don [facility] [id number] wouned infected Guy Kwok Cancel [facility] OUTPATIENT [id number] SOV: 3 OF 3(MEDICAR E) John Paul Maximiliano Cancel [facility] THERAPY SERIES [id number] John Paul Perdomojoon Cancel [facility] OUTPATIENT [id number] SOV: 3 OF 3(MEDICAR E) John Paul Perdomojoon Cancel [facility] OUTPATIENT [id number] CLASS: YEARLY RYGB 04/20/15 Gonzales Medina Cancel [facility] DIAGNOSTIC TEST [id number] right proximal hamstring tendon tear Mohammad Arian [facility] DIAGNOSTIC TEST [id number] OSTEOARTH RITIS/ RIGHT KNEE PAIN Kyle Valentine 05/08 15:38 :23 Cancel [facility]PG [facility] OUTPATIENT [id number] six wks 09/04 16:08 :33 Cancel [facility] OUTPATIENT [id number] UTI Alma Xiomara Cancel [facility] [place] [facility] TESTING [id number] left leg anterior swelling Rowdy Bryant C[facility] NO TECHBILL [id number] [facility] F[facility] OUTPATIENT [id number] UTI Alma Xiomara [facility]ancel [facility] DIAGNOSTIC TEST [id number] Olimpia Huizar Cancel [facility] DIAGNOSTIC TEST [id number] arm paresthes ia Boris Moore [facility] [place] [facility] [id number] GENERAL EYE EXAM Enrike Rivera Cancel [facility] OUT[facility] [id number] er f/u Nyla Gov-Jake Cancel [facility] OUT[facility] [id number] 2 WK F/U PER PT Cancel [facility] FPA NO TECHBILL [id number] consultat ion Nyla Gov-Jake Cancel [facility] OUTPATIENT [id number] Possible UTI and mole removal (2) [facility] [place] [id number] 6 HYOERTROP HIC SCAR Nidhi Jennings Cancel [facility] [place] [id number] MOLE REMOVAL, ADHESION INJ Bre Wong Cancel [facility] MOO MOO [facility] OUTPATIENT [id number] 6WK FOLLOW UP LT KNEE REV Jacob Flip C[facility] OUTPATIENT [id number] CHECK SURGICAL WOUND Cancel [facility] [place] [facility] [id number] CLASS: YEARLY RYGB 04/20/15 Cancel [facility] OUT[facility]IENT [id number] whole-danielle nt based diet, per Dr. Gurwinder Goncalves-Erika unek Cancel [facility] MOO MOO [facility] OUTPATIENT [id number] 1 YEAR F/U Jacob Castelan C[facility] OUTPATIENT [id number] 1 YEAR F/U Jacob Castelan [facility]
--- OUTSIDE RECORDS SUMMARY | 2025-02-09 11:28 | XMS_ITS | Clinical Summary ---
Author Organization [facility] Elaine Cunha Address [address] [place] [address] Care Team Providers Care Blade Aligner Name Role Phone GlynnPacheco michelle Ravinder BILLS [...] bedtime. Active fluticasone propionate (FLONASE) 50 mcg/spray [place], Suspension nasal inhaler USE 2 SPRAY(S) IN [...] Comments Blood Pressure 129/70 05/30/2023 10:21 AM ASSOCIATE FINANCIAL ANALYST Pulse 93 05/30/2023 10:21 AM ASSOCIATE FINANCIAL ANALYST Temperature 35.7 C (96.2 F) 05/30/2023 10:21 AM ASSOCIATE FINANCIAL ANALYST Respiratory Rate 12 05/30/2023 10:21 AM ASSOCIATE FINANCIAL ANALYST Oxygen Saturation 96% 05/30/2023 10:21 AM ASSOCIATE FINANCIAL ANALYST Inhaled Oxygen Concentration - - Weight 134.3 kg (296 lb) 05/30/2023 10:21 AM ASSOCIATE FINANCIAL ANALYST Height 160 cm (5' 3) 05/30/2023 10:21 AM ASSOCIATE FINANCIAL ANALYST Body Mass Index 52.43 05/30/2023 10:21 AM ASSOCIATE FINANCIAL ANALYST Plan of Treatment Health Maintenance Due [...] (1 of 2) 2012 INFLUENZA VACCINE (#1) 2025 RSV VACCINE (60+ or ) (1 - 1-dose 75+ series) 2037 Insurance [facility] MEDICAID [place] Care Teams Blade Aligner Relationship Specialty Start Date End Date Pacheco Mejia DO [address] [facility] [address] [place] [id number] PCP - General Internal Medicine 02/16/23
--- OUTSIDE RECORDS SUMMARY | 2025-02-09 11:30 | XMS_ITS | Referral Summary ---
Author Organization [facility] Address [address] [facility] [address] [place] [address] Phone Care Team Providers Care Specimen Transporter Name Role Phone Pacheco Mejia DO Primary Care Provider [phone] Justin Herron DO Unavailable [phone] Indiana Mortensen MD Unavailable Unknown, Notinfile Unavailable Unavailable Shelton Marcelo MD Unavailable [phone] Encounters Date Type Department Care Team Description 01/26/2025 Home Care Visit [address] [place] [address] Tiffany Santiago RN SN VIRTUAL OASIS DISCHARGE 01/26/2025 Home Care Visit [address] [place] [address] Jessica Carver RN SN TRIAGE ENCOUNTER 01/26/2025 Home Care Visit [address] [place] [address] Peter Hebert, BILL TELEPHONE ENCOUNTER 01/22/2025 Home Care Visit [address] [place] [address] Tiffany Santiago RN TELEPHONE ENCOUNTER 01/22/2025 Telephone [facility] Cardiothoracic Surgery [address] [facility] 8th Floor [address] [place], [place] [phone] Brigitte Sanchez, IRMA 01/21/2025 12:00 PM CDT Home Care Visit [address] [place] [address] Tiffany Santiago RN SN HOME VISIT 01/20/2025 11:30 AM CDT Home Care Visit [address] [place] [address] April Sr, OT OT INITIAL EVALUATION 01/20/2025 3:00 PM CDT Home Care Visit [address] [place] [address] Peter Hebert, PT PT INITIAL EVALUATION 01/18/2025 Plan of Care Documentation [address] [place] [address] 01/18/2025 1:13 PM CDT - 01/18/2025 11:59 PM CDT Hospital Encounter [address] [address] Discharge Disposition: Discharge to home or self care 01/18/2025 1:00 PM CDT Home Care Visit [address] [place] [address] Alana Kim RN SN OASIS START OF CARE 01/17/2025 Home Care Visit [address] [place] [address] Candelaria Silverio, JUANITA TELEPHONE ENCOUNTER 01/15/2025 Telephone [facility] Cardiology [address] [facility] 8th [place] [address] [place] [address] Shola Cha MD 01/14/2025 Telephone [facility] Home Care Services [address] [place] [address] [address] [place] [address] Alba Rodriguez, RN 01/14/2025 Telephone [facility] Home Care Services [address] [place] [address] Marian Crowell, JUANITA 01/14/2025 Travel 01/14/2025 Telephone [facility] Home Care Services [address] [facility] [address] [place] [address] Alba Rodriguez, RN 01/14/2025 Telephone [facility] Home Care Services [address] [facility] [address] [place] [address] Alba Rodriguez, RN 01/14/2025 Telephone [facility] Home Care Services [address] [facility] [address] [place] [address] Alba Rodriguez, RN 01/14/2025 Telephone [facility] Home Care Services [address] [facility] [address] [place] [phone] Alba Rodriguez, RN 01/13/2025 Telephone [facility] Home Care Services [address] [facility] [address] [place] [phone] Alba Rodriguez, RN 01/13/2025 Telephone [facility] Home Care Services [address] [facility] [address] [place] [phone] Alba Rodriguez, RN 01/12/2025 Telephone [facility] Home Care Services [address] [facility] [address] [place] [phone] Alba Rodriguez, RN 01/12/2025 Orders Only [facility] [phone] Unknown, Notinfile 01/12/2025 Telephone [facility] Home Care Services [address] [facility] [address] [place] [phone] Alba Rodriguez, RN 01/12/2025 Telephone [facility] Home Care Services [address] [facility] [address] [place] [address] Alba Rodriguez, RN 01/08/2025 Orders Only [facility] [phone] Unknown, Notinfile 01/08/2025 Telephone [facility] Cardiology [address] [facility] 8th [place] [address] [place] [address] Brigitte Sanchez, IRMA 01/07/2025 1:10 PM CDT - 01/07/2025 11:59 PM CDT Hospital Encounter [facility] Radiology Center [facility] ([facility]) [address] [place] [address] S/P AVR (aortic valve replacement) Discharge Disposition: Discharge to home or self care 01/07/2025 8:30 AM CDT Ancillary Procedure [facility] Cardiology [address] [facility] [address] [place] [address] Complete heart block (HCC) [I44.2] (Primary Dx); Fitting or adjustment of cardiac pacemaker 01/05/2025 Orders Only [facility] [phone] Unknown, Notinfile 01/02/2025 Orders Only [facility] Cardiothoracic Surgery [address] [facility] 8th Floor [address] [place] [address] Naz Gordillo NP Status post cardiac surgery (Primary Dx) 12/09/2024 5:03 AM CDT - 01/02/2025 3:01 PM CDT Hospital Encounter [address] [phone] Indiana Mortensen MD Complete heart block (HCC) (Primary Dx); Aortic stenosis, severe; Single vessel coronary artery disease; Toxic metabolic encephalopathy; Bradycardia; Heart valve disease Discharge Disposition: Discharge to an IP Rehab facility 12/31/2024 12:05 PM CDT - 12/31/2024 3:05 PM CDT Surgery [facility] Electrophysiology Lab [address] [place] [phone] Shola Cha MD IMPLANT DUAL CHAMBER PPM SYSTEM W/ DUAL ELECTRODES (GEN AND LEADS, NEW OR REPLACE) [id number] 12/31/2024 12:19 PM CDT Anesthesia Event [facility] Electrophysiology Lab [address] [place] [phone] David Canseco MD Dippolito, Jenny Irene, NP 12/29/2024 Telephone [facility] Cardiology [address] [facility] 8th [place] [address] [place] [address] Darion Amaralon 12/29/2024 Orders Only [facility] Cardiology [address] [facility] 8th [place] [address] [place] [address] Shaal Oliva NP Fitting or adjustment of cardiac pacemaker (Primary Dx) 12/25/2024 2:52 PM CDT - 12/25/2024 11:59 PM CDT Hospital Encounter [facility] Radiology 1 [place] [address] Discharge Disposition: Discharge to home or self care 12/22/2024 8:40 AM CDT Ancillary Procedure [facility] Vascular Lab IP [address] [facility] [address] [place] [phone] 12/19/2024 8:35 AM CDT Ancillary Procedure [facility] Vascular Lab IP [address] [facility] [address] [place] [address] 12/19/2024 8:30 AM CDT Ancillary Procedure [facility] Vascular Lab IP [address] [facility] [address] [place] [phone] 12/09/2024 6:05 AM CDT Ancillary Procedure [facility] Operating Room 1 [place] [address] Pasquale Dela Cruz MD 12/09/2024 7:00 AM CDT - 12/09/2024 2:55 PM CDT Surgery [facility] Operating Room 1 [place] [address] Indiana Mortensen MD REPLACEMENT AORTIC VALVE WITH ROOT ENLARGEMENT MURALI 12/09/2024 6:57 AM CDT Anesthesia Event [facility] Operating Room 1 [place] [address] Deana Cruz MD Dolnick, Karen Leigh, OLESYA 12/01/2024 Telephone [facility] Cardiology [address] [facility] 8th [place] [address] [place] [address] Brigitte Sanchez, IRMA 12/01/2024 Telephone [facility] Cardiothoracic Surgery [address] [facility] 8th Floor [address] [place] [phone] Sigrid Zepeda RMA 11/27/2024 12:00 PM CDT Pre-Admission Testing [facility] for Preoperative Assessment and Planning [facility] for [facility] ([facility]) [address] [place] [phone] Preop testing; Aortic valve stenosis, etiology of cardiac valve disease unspecified 11/14/2024 Documentation [facility] Cardiothoracic Surgery [address] [facility] 8th Floor [address] [place] [phone] Erika Valera NP 11/13/2024 Orders Only [facility] Anesthesia 1 [place] [address] Brina Rico NP Preop testing (Primary Dx); Aortic valve stenosis, etiology of cardiac valve disease unspecified 11/13/2024 Telephone [facility] Cardiothoracic Surgery [facility] 8th Floor [address] [place] [phone] Naz Gordillo NP 11/12/2024 3:00 PM CDT Pre-Admission Testing [facility] for Preoperative Assessment and Planning [facility] ([facility]) [address] [place] [address] Preoperative testing (Primary Dx); Easy bruising 11/12/2024 1:19 PM CDT - 11/12/2024 11:59 PM CDT Hospital Encounter [facility] Radiology [facility] ([facility]) [address] [place] [address] Aortic stenosis, severe Discharge Disposition: Discharge to home or self care from Last 3 Months Allergies Active Allergy Reactions Criticality Noted Date Comments Amoxicillin-Pot Clavulanate Hives,Shortn ess of breath,Rash High 01/24/2023 Penicillins Hives,Rash Medium Tetracyclines Other (See comments) Low TOOTHACHE Medications fluticasone propionate (FLONASE) 50 mcg/actuation nasal spray Administer 2 sprays into each nostril daily as needed for allergies Active omeprazole (PriLOSEC) 40 mg capsule Take 1 capsule (40 mg total) by mouth every morning 11/26/19 23 Active buPROPion SR (WELLBUTRIN SR) 100 mg 12 hr tablet Take 1 tablet (100 mg total) by mouth every morning Active cetirizine 10 mg capsule Take 10 mg by mouth every morning Active docusate sodium (COLACE) 100 mg capsuleIndication s:constipation Take 1 capsule (100 mg total) by mouth daily as needed for constipation Active iron,carbonyl-vit mello C 65 mg iron- 125 mg tablet,delayed release (DR/EC) Take 1 tablet by mouth every morning Active cyanocobalamin (Vitamin B-12) 1,000 mcg tablet Take 1 tablet (1,000 mcg total) by mouth every morning Active DULoxetine DR (CYMBALTA) 60 mg capsule Take 1 capsule (60 mg total) by mouth nightly Active melatonin 10 mg tablet Take 1 tablet (10 mg total) by mouth nightly Active loratadine (CLARITIN) 5 mg chewable tablet Take 1 tablet (5 mg total) by mouth nightly Active multivit-min/iron /folic acid/K (BARIATRIC MULTIVITAMINS ORAL) Take 1 tablet by mouth nightly Active calcium citrate-vitamin D3 200 mg-3.125 mcg (125 unit) tablet Take 1 tablet by mouth nightly Active pregabalin (LYRICA) 50 mg capsule Take 1 capsule (50 mg total) by mouth 2 (two) times a day Active hydrOXYzine (ATARAX) 50 mg tablet Take 1 tablet (50 mg total) by mouth nightly 10/21/19 25 Active hydrOXYzine (ATARAX) 10 mg tablet Take 1 tablet (10 mg total) by mouth every 6 (six) hours as needed for anxiety 10/21/19 25 Active methocarbamoL (ROBAXIN) 750 mg tabletIndications :Muscle Spasm Take 1 tablet (750 mg total) by mouth as needed for muscle spasms 05/23/20 Active LORazepam (ATIVAN) 0.5 mg tablet Take 1 tablet (0.5 mg total) by mouth as needed for anxiety 05/22/20 22 Active acetaminophen 500 mg capsule Take 2 capsules (1,000 mg total) by mouth every 6 (six) hours as needed for headaches 02/29/20 23 Active ascorbic acid (vitamin C) 1,000 mg tablet Take 1 tablet (1,000 mg total) by mouth every morning 03/01/20 23 Active artificial tears (SYSTANE) 0.3 % gel Apply 1 drop to both eyes daily as needed Active hydrALAZINE (APRESOLINE) 10 mg tabletIndications :hypertension Take 1 tablet (10 mg total) by mouth 3 (three) times a day 01/03/20 25 026 Active polyethylene glycol (MIRALAX) 17 gram packetIndications :constipation Take 1 packet (17 g total) by mouth daily as needed for constipation 01/03/20 25 Active spironolactone (ALDACTONE) 50 mg tablet Take 1 tablet (50 mg total) by mouth daily 01/03/20 25 026 Active apixaban (ELIQUIS) 5 mg tabletIndications :Venous Thrombosis Take 1 tablet (5 mg total) by mouth every 12 (twelve) hours 01/03/20 25 Active aspirin 81 mg chewable tabletIndications :prevention of thrombosis Take 1 tablet (81 mg total) by mouth daily 01/03/20 25 026 Active lamoTRIgine (LaMICtal) 100 mg tablet Take 1 tablet (100 mg total) by mouth nightly Active atorvastatin (LIPITOR) 20 mg tablet Take 1 tablet (20 mg total) by mouth daily 30 tablet 1 01/03/20 25 026 Active furosemide (LASIX) 20 mg tablet Take 1 tablet (20 mg total) by mouth daily for 5 days 01/03/20 25 Active metoprolol tartrate (LOPRESSOR) 25 mg immediate release tablet Take 0.5 tablets (12.5 mg total) by mouth 2 (two) times a day 01/03/20 25 026 Active cyanocobalamin (Vitamin B-12) 1,000 mcg tabletIndications :Prevention of Vitamin B12 Deficiency Take 1,000 mcg by mouth daily. Indications: prevention of vitamin B12 deficiency Active biotin 10,000 mcg capsuleIndication s:Biotin Deficiency Take 10,000 mcg by mouth daily. 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 Indications: visible water retention Active Active Problems Problem Noted Date Diagnosed Date DVT (deep venous thrombosis) 12/27/2024 Overview (12/27/2024): Acute DVT in right lower extremity, now with pain and edema. Assessment & Plan (01/01/2025 11:49 AM CDT): Acute DVT in right lower extremity, now with pain and edema. - heparin gtt started 12/30-hold for PPM implant - OK to transition to Eliquis 01/01 Assessment & Plan (12/27/2024 10:26 AM CDT): Acute DVT in right lower extremity, now with pain and edema. Seizure-like activity 12/24/2024 Assessment & Plan (12/30/2024 12:25 PM CDT): 12/13: First episode during the day of seizure like activity lasting approximately 2 minutes with brief period of lethargy after without intervention 12/13: HCT negative 12/13: EEG showed mild to moderate generalized slowing 12/13 PM: patient with 2 additional episodes of seizure activity becoming stiff with mild shaking and LOC, lasting less than 30 seconds before resolution returning to baseline neuro exam Patient reports she had seizure one time before due to drug interaction after taking tramadol and duloxetine 12/15: EEG mild generalized slowing, no seizures, event at time of button press most consistent with convulsive syncope - Neuro signed off 12/15, suspect events /2 poor CBF during severe bradycardia similar to convulsive syncope - Continue home (for psych indications) Lamotrigine 100mg QHS - Sz precautions Assessment & Plan (12/25/2024 3:36 PM CDT): 12/13: First episode during the day of seizure like activity lasting approximately 2 minutes with brief period of lethargy after without intervention 12/13: HCT negative 12/13: EEG showed mild to moderate generalized slowing 12/13 PM: patient with 2 additional episodes of seizure activity becoming stiff with mild shaking and LOC, lasting less than 30 seconds before resolution returning to baseline neuro exam Patient reports she had seizure one time before due to drug interaction after taking tramadol and duloxetine 12/15: EEG mild generalized slowing, no seizures, event at time of button press most consistent with convulsive syncope - Neuro signed off 12/15, suspect events 08/17 poor CBF during severe bradycardia similar to convulsive syncope - Continue home (for psych indications) Lamotrigine 100mg QHS - Sz precautions Major depressive disorder 12/24/2024 Assessment & Plan (12/31/2024 2:18 PM CDT): - Continue home Bupropion, lamotrigine - Continue Duloxetine - Offer counseling Assessment & Plan (12/25/2024 3:37 PM CDT): - Continue home Bupropion, lamotrigine - Continue Duloxetine 12/23 cleared by speech to eat - Offer counseling Transaminitis 12/24/2024 Assessment & Plan (01/01/2025 11:59 AM CDT): Elevated LFT in the post operative setting Now normalizing Interval CMP monitoring Careful use of Tylenol/statin Assessment & Plan (12/25/2024 3:35 PM CDT): Elevated LFT in the post operative setting Resolving continue to monitor Careful use of Tylenol 650 mg po q 6 hours prn Single vessel coronary artery disease 10/29/2024 Assessment & Plan (01/01/2025 3:18 PM CDT): s/p CABG x 1 Continue aspirin and statin Metoprolol started now that s/p PPM Assessment & Plan (12/28/2024 2:22 PM CDT): s/p CABG x 1 Continue aspirin and statin No beta alyssa yet ISO CHB-await PPM implant tomorrow Bradycardia 10/29/2024 Assessment & Plan (01/01/2025 11:43 AM CDT): EP placed PPM on 12/31 CXR and device interrogation today Assessment & Plan (12/28/2024 2:23 PM CDT): S/p Temp PPM implant Monitor on telemetry EP to place PPM 12/28 NPO @ MN, hold sub Q heparin Complete heart block 10/29/2024 Assessment & Plan (01/01/2025 11:44 AM CDT): Complete heart block with (no underlying perfusable escape rhythm, worsening threshholds). Likely 2/2 post cardiac surgery. This diagnosis requires critical care monitoring. 12/12: EPW removed after tolerating BB 12/13: Mobitz Type 2 with hypotension --> TVP placement with poor captures 12/14: TVP repositioned to the RVOT under fluro by EP 12/15: Patient lost capture with TVP causing asystole requiring transcutaneous pacing. EP adjusted TVP and again got capture. 12/15: TVP no longer capturing, EP attending to bedside and placed a temp perm pacemaker - [employer] RV lead externalized perm pacemaker in place, VVI @ 90 - Now s/p PPM w/ EP Assessment & Plan (12/28/2024 2:23 PM CDT): Complete heart block with (no underlying perfusable escape rhythm, worsening threshholds). Likely 2/2 post cardiac surgery. This diagnosis requires critical care monitoring. 12/12: EPW removed after tolerating BB 12/13: Mobitz Type 2 with hypotension --> TVP placement with poor captures 12/14: TVP repositioned to the RVOT under fluro by EP 2: Patient lost capture with TVP causing asystole requiring transcutaneous pacing. EP adjusted TVP and again got capture. 6: TVP no longer capturing, EP attending to bedside and placed a temp perm pacemaker - [employer] RV lead externalized perm pacemaker in place, VVI @ 90 - EP following. Plan PPM implant 12/28, NPO @ MN, hold sub Q heparin - CTM on telemetry Aortic stenosis, severe 10/15/2024 Assessment & Plan (01/01/2025 3:18 PM CDT): 12/09: bio AVR, aortic root enlargement, CABG x 1 (VELA to LAD) ROSS with normal BiV function, concentric LVH, mild MR, mitral stenosis on no inotrope support - Daily aspirin and statin - Goal MAP > 65 - PO lasix resumed - Metoprolol added now that s/p PPM Assessment & Plan (12/25/2024 3:39 PM CDT): 12/09: bio AVR, aortic root enlargement, CABG x 1 (VELA to LAD) ROSS with normal BiV function, concentric LVH, mild MR, mitral stenosis on no inotrope support - Daily aspirin and statin - Goal MAP > 65 - Holding metoprolol in the setting of CHB Allergic rhinitis 01/24/2023 Anemia 01/24/2023 Anxiety 01/24/2023 Assessment & Plan (01/01/2025 12:00 PM CDT): Continue wellbutrin and atarax Offer support Arthritis 01/24/2023 Heart murmur 01/24/2023 Heart valve [...] Not Answered Passive Exposure Comments:as a child OASIS D0700: Social Isolation Answer Da te Recorded Frequency of experiencing loneliness or isolatio n Sometimes 01/26/2025 OASIS A1250: Transportation Answer Date Recorded Lack of Transportation (Medical) No 01/26/2025 Lack of Transportation (Non-Medical) No 01/26/2025 Patient Unable or Declines to Respond No 01/26/2025 OASIS B1300: Health Literacy Answer Al e Recorded Frequency of needing help to read materials from doctor or pharmacy Never 01/26/2025 [facility] Utilities Answer Date Recorded In the past 12 months has th e electric, gas, oil, or water company threatened to shut off services in your home? No 12/22/2024 Social Connection and Isolation Panel [NHANES] A nswer Date Recorded In a typical week, how many times do you talk on the phone with family, friends, or neighbors? Three times a week 12/22/2024 How often do you get togethe r with friends or relatives? Three times a week 12/22/2024 How often do you attend chur ch or jainism services? Never 12/22/2024 Do you belong to any clubs o r organizations such as shinto groups, unions, fraternal or athletic groups, or school groups? No 12/22/2024 How often do you attend meet ings of the clubs or organizations you belong to? Never 12/22/2024 Are you , , di vorced, , never , or living with a partner? 12/22/2024 AUDIT-C Answer Date Recorded Q1: How often do you have a drink containing alc ohol? Monthly or less 12/09/2024 Q2: How many drinks containi ng alcohol do you have on a typical day when you are drinking? 1 or 2 12/09/2024 Q3: How often do you have si x or more drinks on one occasion? Never 12/09/2024 Overall Financial Resource Strain (CARDIA) Answe r Date Recorded How hard is it for you to pa y for the very basics like food, housing, medical care, and heating? Somewhat hard 12/22/2024 Hunger Vital Sign Answer Date Recorded Within the past 12 months, y ou worried that your food would run out before you got the money to buy more. Often true 12/23/19 25 Within the past 12 months, t he food you bought just didn't last and you didn't have money to get more. Often true 12/22/2024 PRAPARE - Transportation Answer Date Re corded In the past 12 months, has l ack of transportation kept you from medical appointments or from getting medications? No 03/2025 In the past 12 months, has l ack of transportation kept you from meetings, work, or from getting things needed for daily living? No 12/22/2024 Housing Stability Vital Sign Answer Al e Recorded In the last 12 months, was t here a time when you were not able to pay the mortgage or rent on time? No 12/22/2024 In the past 12 months, how m any times have you moved where you were living? 0 12/22/2024 At any time in the past 12 m [facility], were you homeless or living in a mcc (including now)? No 12/22/2024 Personal Safety Answer Date Recorded Have you ever been in or are you currently in a harmful physical or emotional relationship or is someone making you feel afraid or unsafe? Denies 12/09/2024 Comments No Sex and Gender Information Value Date Recorded Sex Assigned at Not on file Legal Sex Female 3:02 PM PER DIEM REGISTERED NURSE Gender Identity Female 01/25/2023 3:47 PM CDT Sexual Orientation Straight 11/20/2024 5: 09 PM CDT Occupation Industry Job Start Date Job End Date DISABLED Not on file Not on file Not on file Last Filed Vital Signs Vital Sign Reading Time Taken Comments Blood Pressure 148/82 01/21/2025 12:50 PM CDT Pulse 84 01/21/2025 12:50 PM CDT Temperature 36.8 C (98.2 F) 01/21/2025 12:50 PM CDT Respiratory Rate 20 01/21/2025 12:50 PM CDT Oxygen Saturation 100% 01/21/2025 12:50 PM CDT Inhaled Oxygen Concentration - - Weight 122.7 kg (270 lb 8 oz) 01/21/2025 12:50 P M CDT Height 160 cm (5' 3) 01/07/2025 8:23 AM CDT Body Mass Index 47.92 01/07/2025 8:23 AM CDT Plan of Treatment Not on file Medical Devices Implanted Type Area Molder Inflated Ball Device Identifier Shelf Expiration Date Model / Serial / Lot [employer] Nikolai Lead [id number] Endocardial Pacing Mr Is-1 Bipolar Connection 7841-12/16/2024 Implanted:2024 (Quantity not on file) Lead Right: Ventricle 04/29/2026 / [id number] / [employer] Capsurefix Novus 6.2fr 2mm 52cm Bipolar Screw In Implantable Latex Free 5076-52 - [id number] - [id number] Implanted:Qty: 1 on 12/31/2024 by Shola Cha MD at [facility] Lead Right: Ventricle [employer] 10/09/2026 5076-52 / [id number] 12V / [id number] 12V [employer] Capsurefix Novus 6.2fr 2mm 45cm Bipolar Screw In Implantable 5076-45 - [id number] - [id number] Implanted:Qty: 1 on 12/31/2024 by Shola Cha MD at [facility] Lead Right: Atria [employer] Inc 10/10/2026 5076-45 / [id number] 73V / [id number] 73V Medtronic Inc Tyrx Absorbable Antibacterial Envelope Med 2.7x2.5in [id number] - [id number] - [id number] Implanted:Qty: 1 on 12/31/2024 by Shola Cha MD at [facility] Other - see comments Right: Chest Wall Medtronic Inc 09/25/2025 [id number] / [id number] / [id number] Description:Tyrex Medtronic Inc Qian S Mri Surescan 50.8x46.6mm 2 Chamber 7.4mm Pacemaker 22.5gm [id number] - [id number] - [id number] Implanted:Qty: 1 on 12/31/2024 by Shola Cha MD at [facility] Pacemaker Right: Chest Wall Medtronic Inc 04/28/2026 [id number] / [id number] 65G / [id number] 65G [facility] [employer] Patch Cardiovascular 14x8cm Samantha-Guard [place] [employer] [id number] - [id number] - [id number] Implanted:Qty: 1 on 12/09/2024 by Indiana Mortensen MD at [facility] Chest [facility] Nik[employer]ai [id number] 05/27/2026 [id number] / [id number] / [id number] [employer] Inspiris Resilia Leaflet Sewing Ring 27mm Valve Aortic Bovine [id number] - [id number] - [id number] Implanted:Qty: 1 on 12/09/2024 by Indiana Mortensen MD at [facility] Heart [employer] [id number] 08/27/2029 [id number] / [id number] / Arthrex Inc Device Closure Fibertape Sternal Cerclage Blunt Needle Ar-[id number] - [id number] Implanted:Qty: 1 on 12/09/2024 by Indiana Mortensen MD at [facility] N/A: Sternum [employer] Inc 05/15/2029 [id number] / / [id number] Esme [employer] Inc Plate Bone Low Profile 6 Hole O Shape Sternum Ti 115.104.06 - [id number] Implanted:Qty: 1 on 12/09/2024 by Gordy Bourgeois MD at [facility] N/A: Sternum [employer] Inc 115.104 .06 / / Esme [employer] Inc Plate Bone Low Profile 6 Hole H Shape Sternum Ti 115.102.06 - [id number] Implanted:Qty: 2 on 12/09/2024 by Indiana Mortensen MD at [facility] N/A: Sternum [employer] Inc 115.102 .06 / / Esme [employer] Inc Screw Bone Slf Drl Full Thread Locking 3.5x16mm Ti 100.035.16 - [id number] Implanted:Qty: 8 on 12/09/2024 by Indiana Mortensen MD at [facility] N/A: Sternum [employer] Inc 100.035 .16 / / [employer]me [employer] Inc Screw Bone Slf Drl Full Thread Locking 3.5x18mm Ti 100.035.18 - [id number] Implanted:Qty: 4 on 12/09/2024 by Gordy Bourgeois MD at [facility] N/A: Sternum [employer] Inc 100.035 .18 / / [employer]me [employer] Inc Screw Bone Slf Drl Full Thread Locking 3.5x20mm Ti 100.035.20 - [id number] Implanted:Qty: 6 on 12/09/2024 by Gordy Bourgeois MD at [facility] N/A: Sternum [employer] Inc 100.035 .20 / / Procedures Procedure Name Priority Date/Time Associated Diagnosis Comments EGFR Routine 01/18/2025 1:13 PM CDT DIFFERENTIAL AUTO Routine 01/18/2025 1:13 PM CDT CBC WITH AUTO DIFFERENTIAL Routine 01/18/2025 1:13 PM CDT GLUCOSE, RANDOM (OUTREACH) Routine 01/18/2025 1:13 PM CDT BASIC METABOLIC PANEL WITHOUT GLUCOSE, PLASMA (OUTREACH) Routine 01/18/2025 1:13 PM CDT EGFR Routine Gen Lab 01/12/2025 10:04 AM CDT COMPREHENSIVE METABOLIC PANEL WITHOUT GLUCOSE (OUTREACH) Routine Gen Lab 01/12/2025 10:04 AM CDT CS GLUCOSE Routine Gen Lab 01/12/2025 10:04 AM CDT DIFFERENTIAL AUTO Routine Gen Lab 01/12/2025 10:04 AM CDT CBC WITH AUTO DIFFERENTIAL Routine Gen Lab 01/12/2025 10:04 AM CDT EGFR Routine Gen Lab 01/08/2025 12:20 PM CDT COMPREHENSIVE METABOLIC PANEL WITHOUT GLUCOSE (OUTREACH) Routine Gen Lab 01/08/2025 12:20 PM CDT CS GLUCOSE Routine Gen Lab 01/08/2025 12:20 PM CDT DIFFERENTIAL AUTO Routine Gen Lab 01/08/2025 12:20 PM CDT CBC WITH AUTO DIFFERENTIAL Routine Gen Lab 01/08/2025 12:20 PM CDT CTA CHEST ABDOMEN PELVIS Schedule Routine, Read Routine (OP Routine) 01/07/2025 3:43 PM CDT S/P AVR (aortic valve replacement) CTA UPPER EXTREMITY RIGHT W WO CONTRAST Schedule Routine, Read Routine (OP Routine) 01/07/2025 3:43 PM CDT S/P AVR (aortic valve replacement) DEVICE CHECK - IN OFFICE Routine 01/07/2025 8:15 AM CDT Fitting or adjustment of cardiac pacemaker EGFR Routine Gen Lab 01/05/2025 10:33 AM CDT COMPREHENSIVE METABOLIC PANEL WITHOUT GLUCOSE (OUTREACH) Routine Gen Lab 01/05/2025 10:33 AM CDT VITAMIN D 25 HYDROXY Routine Gen Lab 01/05/2025 10:33 AM CDT CS GLUCOSE Routine Gen Lab 01/05/2025 10:33 AM CDT DIFFERENTIAL AUTO Routine Gen Lab 01/05/2025 10:33 AM CDT CBC WITH AUTO DIFFERENTIAL Routine Gen Lab 01/05/2025 10:33 AM CDT XR CHEST PA LATERAL 2 VIEWS IP Routine 01/01/2025 3:59 PM CDT EGFR Routine 12/31/2024 10:26 PM CDT COMPREHENSIVE METABOLIC PANEL Routine 12/31/2024 10:26 PM CDT CBC WITHOUT DIFFERENTIAL Routine 12/31/2024 10:26 PM CDT XR CHEST 1 VIEW ED Urgent/IP Urgent 12/31/2024 4:59 PM CDT IMPLANT DUAL CHAMBER PPM SYSTEM W/ DUAL ELECTRODES (GEN AND LEADS, NEW OR REPLACE) Routine 12/31/2024 4:25 PM CDT Complete heart block (HCC) 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 Routine 12/31/2024 12:52 PM CDT EGFR Routine 12/30/2024 10:52 PM CDT APTT STAT 12/30/2024 10:52 PM CDT TYPE AND SCREEN Timed 12/30/2024 10:52 PM CDT COMPREHENSIVE METABOLIC PANEL Routine 12/30/2024 10:52 PM CDT CBC WITHOUT DIFFERENTIAL Routine 12/30/2024 10:52 PM CDT APTT STAT 12/30/2024 5:13 PM CDT EGFR Routine 12/30/2024 10:54 AM CDT APTT STAT 12/30/2024 10:54 AM CDT CBC WITHOUT DIFFERENTIAL STAT 12/30/2024 10:54 AM CDT PROTIME-INR STAT 12/30/2024 10:54 AM CDT COMPREHENSIVE METABOLIC PANEL Routine 12/30/2024 10:54 AM CDT CENTRAL LINE PLACEMENT > 5 YEARS IP Routine 12/30/2024 9:49 AM CDT EGFR Routine 12/28/2024 8:30 PM CDT COMPREHENSIVE METABOLIC PANEL Routine 12/28/2024 8:30 PM CDT CBC WITHOUT DIFFERENTIAL Routine 12/28/2024 8:30 PM CDT EGFR Routine 12/27/2024 8:34 PM CDT TYPE AND SCREEN Timed 12/27/2024 8:34 PM CDT COMPREHENSIVE METABOLIC PANEL Routine 12/27/2024 8:34 PM CDT CBC WITHOUT DIFFERENTIAL Routine 12/27/2024 8:34 PM CDT EGFR Routine 12/26/2024 1:25 PM CDT COMPREHENSIVE METABOLIC PANEL Routine 12/26/2024 1:25 PM CDT TYPE AND SCREEN Timed 12/26/2024 1:25 PM CDT CBC WITHOUT DIFFERENTIAL Routine 12/26/2024 1:25 PM CDT CBC WITHOUT DIFFERENTIAL Timed 12/26/2024 1:25 PM CDT BLOOD CULTURE STAT 12/26/2024 1:25 PM CDT XR CHEST 1 VIEW IP Routine 12/26/2024 5:21 AM CDT XR FOOT RIGHT 2 VIEWS IP Routine 12/25/2024 9:20 PM CDT FL MODIFIED BARIUM SWALLOW W VIDEO IP Routine 12/25/2024 3:27 PM CDT NURSE STAFF EVALUATE AND TREAT VIDEOFLUOROSCOPIC SWALLOW STUDY Routine 12/25/2024 3:07 PM CDT POCT GLUCOSE DEVICE Routine 12/24/2024 7:42 AM CDT XR CHEST 1 VIEW IP Routine 12/23/2024 10:44 PM CDT CRITICAL CARE Routine 12/23/2024 10:37 AM CDT Complete heart block (HCC) EGFR Routine 12/23/2024 12:10 AM CDT COMPREHENSIVE METABOLIC PANEL Routine 12/23/2024 12:10 AM CDT CBC WITHOUT DIFFERENTIAL Routine 12/23/2024 12:10 AM CDT PHOSPHORUS Routine 12/23/2024 12:10 AM CDT MAGNESIUM Routine 12/23/2024 12:10 AM CDT POCT GLUCOSE DEVICE Routine 12/22/2024 4:05 PM CDT US VEIN DUPLEX LOWER EXTREMITY RIGHT LIMITED IP Routine 12/22/2024 3:35 PM CDT POCT GLUCOSE DEVICE Routine 12/22/2024 1:23 PM CDT POTASSIUM, WHOLE BLOOD Routine 1:18 PM CDT XR CHEST 1 VIEW IP Routine 12/22/2024 9:36 AM CDT POCT GLUCOSE DEVICE Routine 12/22/2024 7:34 AM CDT CRITICAL CARE Routine 12/22/2024 6:40 AM CDT Complete heart block (HCC) EGFR Routine 12/22/2024 2:11 AM CDT COMPREHENSIVE METABOLIC PANEL Routine 12/22/2024 2:11 AM CDT CBC WITHOUT DIFFERENTIAL Routine 12/22/2024 2:11 AM CDT PHOSPHORUS Routine 12/22/2024 2:11 AM CDT MAGNESIUM Routine 12/22/2024 2:11 AM CDT INFECTION PREVENTION JUSTICE AURIS PCR, SURVEILLANCE Routine 12/22/2024 2:11 AM CDT POCT GLUCOSE DEVICE Routine 12/21/2024 9:14 PM CDT CRITICAL CARE Routine 12/21/2024 7:43 PM CDT Complete heart block (HCC) POCT GLUCOSE DEVICE Routine 12/21/2024 3:07 PM CDT URINALYSIS, MICROSCOPIC ONLY Routine 12/21/2024 11:20 AM CDT URINALYSIS AND REFLEX TO MICROSCOPIC Routine 12/21/2024 11:20 AM CDT BLOOD CULTURE Routine 12/21/2024 11:20 AM CDT BLOOD CULTURE Routine 12/21/2024 11:20 AM CDT NURSE STAFF EVALUATE AND TREAT FIBEROPTIC ENDOSCOPIC SWALLOW Routine 12/21/2024 11:19 AM CDT DIFFERENTIAL AUTO Routine 12/21/2024 10:28 AM CDT PROTIME-INR Routine 12/21/2024 10:28 AM CDT APTT Routine 12/21/2024 10:28 AM CDT CBC WITH AUTO DIFFERENTIAL Routine 12/21/2024 10:28 AM CDT COVID-19 CORONAVIRUS RNA Routine 12/21/2024 10:28 AM CDT POCT GLUCOSE DEVICE Routine 12/21/2024 7:38 AM CDT CRITICAL CARE Routine 12/21/2024 7:17 AM CDT Complete heart block (HCC) POCT GLUCOSE DEVICE Routine 12/21/2024 3:56 AM CDT CBC WITHOUT DIFFERENTIAL STAT 12/21/2024 12:45 AM CDT POCT GLUCOSE DEVICE Routine 12/21/2024 12:03 AM CDT EGFR Routine 12/21/2024 12:03 AM CDT TYPE AND SCREEN Timed 12/21/2024 12:03 AM CDT COMPREHENSIVE METABOLIC PANEL Routine 12/21/2024 12:03 AM CDT PHOSPHORUS Routine 12/21/2024 12:03 AM CDT MAGNESIUM Routine 12/21/2024 12:03 AM CDT XR CHEST 1 VIEW Timed 12/20/2024 8:52 PM CDT CRITICAL CARE Routine 12/20/2024 8:10 PM CDT Complete heart block (HCC) POCT GLUCOSE DEVICE Routine 12/20/2024 8:01 PM CDT POTASSIUM, WHOLE BLOOD STAT 3:49 PM CDT POCT GLUCOSE DEVICE Routine 12/20/2024 3:48 PM CDT POCT GLUCOSE DEVICE Routine 12/20/2024 3:44 PM CDT POCT GLUCOSE DEVICE Routine 12/20/2024 3:43 PM CDT POCT GLUCOSE DEVICE Routine 12/20/2024 3:42 PM CDT POCT GLUCOSE DEVICE Routine 12/20/2024 11:11 AM CDT POCT GLUCOSE DEVICE Routine 12/20/2024 8:12 AM CDT POTASSIUM, WHOLE BLOOD STAT 8:00 AM CDT POTASSIUM, WHOLE BLOOD STAT 6:21 AM CDT VANCOMYCIN LEVEL RANDOM Routine 12/20/19 11:17 PM CDT EGFR Routine 12/19/2024 11:17 PM CDT COMPREHENSIVE METABOLIC PANEL Routine 12/19/2024 11:17 PM CDT CBC WITHOUT DIFFERENTIAL Routine 12/19/2024 11:17 PM CDT PHOSPHORUS Routine 12/19/2024 11:17 PM CDT MAGNESIUM Routine 12/19/2024 11:17 PM CDT AMMONIA Routine 12/19/2024 11:17 PM CDT POCT GLUCOSE DEVICE Routine 12/19/2024 11:16 PM CDT POCT GLUCOSE DEVICE Routine 12/19/2024 8:12 PM CDT XR CHEST 1 VIEW IP Routine 12/19/2024 8:05 PM CDT CRITICAL CARE Routine 12/19/2024 6:45 PM CDT Complete heart block (HCC) BLOOD GAS, ARTERIAL Routine 12/19/2024 6:19 PM CDT POTASSIUM, WHOLE BLOOD STAT 6:19 PM CDT POCT GLUCOSE DEVICE Routine 12/19/2024 3:41 PM CDT US VEIN DUPLEX UPPER EXTREMITY BILATERAL COMPLETE IP Routine 12/19/2024 12:08 PM CDT US VEIN DUPLEX LOWER EXTREMITY BILATERAL COMPLETE IP Routine 12/19/2024 12:07 PM CDT BLOOD GAS, ARTERIAL Routine 12/19/2024 12:06 PM CDT POTASSIUM, WHOLE BLOOD STAT 12:06 PM CDT POCT GLUCOSE DEVICE Routine 12/19/2024 12:05 PM CDT XR CHEST 1 VIEW ED Urgent/IP Urgent 12/19/2024 9:09 AM CDT POCT GLUCOSE DEVICE Routine 12/19/2024 8:24 AM CDT CRITICAL CARE Routine 12/19/2024 7:27 AM CDT Complete heart block (HCC) POC BLOOD GAS AND CHEMISTRIES, ARTERIAL Routine 12/19/2024 6:58 AM CDT POCT GLUCOSE DEVICE Routine 12/19/2024 4:21 AM CDT EGFR Routine 12/18/2024 11:54 PM CDT POTASSIUM, WHOLE BLOOD STAT 11:54 PM CDT BLOOD GAS, ARTERIAL Routine 12/18/2024 11:54 PM CDT COMPREHENSIVE METABOLIC PANEL Routine 12/18/2024 11:54 PM CDT CBC WITHOUT DIFFERENTIAL Routine 12/18/2024 11:54 PM CDT PHOSPHORUS Routine 12/18/2024 11:54 PM CDT MAGNESIUM Routine 12/18/2024 11:54 PM CDT TYPE AND SCREEN Timed 12/18/2024 11:54 PM CDT POCT GLUCOSE DEVICE Routine 12/18/2024 11:53 PM CDT POTASSIUM, WHOLE BLOOD STAT 8:25 PM CDT POCT GLUCOSE DEVICE Routine 12/18/2024 8:21 PM CDT XR CHEST 1 VIEW IP Routine 12/18/2024 7:38 PM CDT CRITICAL CARE Routine 12/18/2024 5:53 PM CDT Complete heart block (HCC) LACTATE DEHYDROGENASE, BODY FLUID Routine 12/18/2024 4:19 PM CDT PROTEIN, BODY FLUID Routine 12/18/2024 4:19 PM CDT AEROBIC AND ANAEROBIC CULTURE AND GRAM STAIN Routine 12/18/2024 4:19 PM CDT POTASSIUM, WHOLE BLOOD STAT 4:00 PM CDT POCT GLUCOSE DEVICE Routine 12/18/2024 3:58 PM CDT MRSA ONLY (STAPHYLOCOCCUS AUREUS) CULTURE Routine 12/18/2024 2:22 PM CDT POC BLOOD GAS AND CHEMISTRIES, ARTERIAL Routine 12/18/2024 11:03 AM CDT XR CHEST 1 VIEW Critical/Life- Threatening 12/18/2024 10:23 AM CDT TRANSFUSE RED BLOOD CELLS Timed 12/18/2024 9:54 AM CDT THORACENTESIS Routine 12/18/2024 9:33 AM CDT PREPARE RBC Timed 12/18/2024 9:00 AM CDT POCT GLUCOSE DEVICE Routine 12/18/2024 7:56 AM CDT CRITICAL CARE Routine 12/18/2024 7:39 AM CDT Complete heart block (HCC) VANCOMYCIN LEVEL RANDOM Timed 12/19/19 1:38 AM CDT APTT STAT 12/18/2024 1:20 AM CDT PROTIME-INR STAT 12/18/2024 1:20 AM CDT CBC WITHOUT DIFFERENTIAL STAT 12/18/2024 1:20 AM CDT EGFR Routine 12/18/2024 12:42 AM CDT COMPREHENSIVE METABOLIC PANEL Routine 12/18/2024 12:42 AM CDT CBC WITHOUT DIFFERENTIAL Routine 12/18/2024 12:42 AM CDT PHOSPHORUS Routine 12/18/2024 12:42 AM CDT MAGNESIUM Routine 12/18/2024 12:42 AM CDT INFECTION PREVENTION JUSTICE AURIS PCR, SURVEILLANCE Routine 12/18/2024 12:42 AM CDT BLOOD GAS, ARTERIAL Routine 12/17/2024 9:40 PM CDT POCT GLUCOSE DEVICE Routine 12/17/2024 8:50 PM CDT XR CHEST 1 VIEW IP Routine 12/17/2024 7:10 PM CDT CRITICAL CARE Routine 12/17/2024 6:25 PM CDT Complete heart block (HCC) POCT GLUCOSE DEVICE Routine 12/17/2024 5:24 PM CDT POCT GLUCOSE DEVICE Routine 12/17/2024 11:54 AM CDT BLOOD GAS, ARTERIAL Routine 12/17/2024 11:54 AM CDT POTASSIUM, WHOLE BLOOD Timed 11:54 AM CDT XR ABDOMEN AP 1 VIEW ED Urgent/IP Urgent 12/17/2024 9:36 AM CDT POCT GLUCOSE DEVICE Routine 12/17/2024 8:58 AM CDT CRITICAL CARE Routine 12/17/2024 7:19 AM CDT Complete heart block (HCC) BLOOD GAS, ARTERIAL Timed 12/17/2024 5:31 AM CDT EXTUBATION Routine 12/17/2024 5:06 AM CDT POTASSIUM, WHOLE BLOOD Timed 5:04 AM CDT VANCOMYCIN LEVEL RANDOM Timed 12/18/19 1:48 AM CDT EGFR Routine 12/17/2024 12:12 AM CDT PROTIME-INR Routine 12/17/2024 12:12 AM CDT HEPATIC FUNCTION PANEL Routine 12:12 AM CDT CBC WITHOUT DIFFERENTIAL Routine 12/17/2024 12:12 AM CDT PHOSPHORUS Routine 12/17/2024 12:12 AM CDT MAGNESIUM Routine 12/17/2024 12:12 AM CDT BASIC METABOLIC PANEL Routine 12/17/2024 12:12 AM CDT EGFR Timed 12/16/2024 9:30 PM CDT POTASSIUM, WHOLE BLOOD Timed 9:30 PM CDT BASIC METABOLIC PANEL Timed 12/16/2024 9:30 PM CDT BLOOD GAS, ARTERIAL Timed 12/16/2024 9:30 PM CDT POCT GLUCOSE DEVICE Routine 12/16/2024 8:39 PM CDT XR CHEST 1 VIEW IP Routine 12/16/2024 7:20 PM CDT CRITICAL CARE Routine 12/16/2024 6:30 PM CDT Complete heart block (HCC) POCT GLUCOSE DEVICE Routine 12/16/2024 5:10 PM CDT BLOOD GAS, ARTERIAL Routine 12/16/2024 5:10 PM CDT POTASSIUM, WHOLE BLOOD STAT 5:10 PM CDT POTASSIUM, WHOLE BLOOD Timed 1:55 PM CDT POC BLOOD GAS AND CHEMISTRIES, ARTERIAL Routine 12/16/2024 1:17 PM CDT POC BLOOD GAS AND CHEMISTRIES, ARTERIAL Routine 12/16/2024 12:33 PM CDT XR CHEST 1 VIEW ED Urgent/IP Urgent 12/16/2024 11:52 AM CDT EGFR Routine 12/16/2024 11:21 AM CDT PHOSPHORUS Routine 12/16/2024 11:21 AM CDT MAGNESIUM Routine 12/16/2024 11:21 AM CDT BASIC METABOLIC PANEL Routine 12/16/2024 11:21 AM CDT CBC WITHOUT DIFFERENTIAL Routine 12/16/2024 11:21 AM CDT POC BLOOD GAS AND CHEMISTRIES, ARTERIAL Routine 12/16/2024 11:12 AM CDT CRITICAL CARE Routine 12/16/2024 8:07 AM CDT Complete heart block (HCC) LACTATE, WHOLE BLOOD Routine 12/16/2024 8:00 AM CDT BLOOD GAS, ARTERIAL Routine 12/16/2024 8:00 AM CDT POCT GLUCOSE DEVICE Routine 12/16/2024 7:54 AM CDT POC BLOOD GAS AND CHEMISTRIES, ARTERIAL Routine 12/16/2024 5:59 AM CDT POC BLOOD GAS AND CHEMISTRIES, ARTERIAL Routine 12/16/2024 3:52 AM CDT ECG 12-LEAD STAT 12/16/2024 2:45 AM CDT POC BLOOD GAS AND CHEMISTRIES, ARTERIAL Routine 12/16/2024 2:43 AM CDT RESPIRATORY PATHOGEN PANEL Routine 12/16/2024 1:45 AM CDT BLOOD CULTURE Routine 12/16/2024 1:45 AM CDT BLOOD CULTURE Routine 12/16/2024 1:45 AM CDT EGFR Routine 12/15/2024 10:37 PM CDT CALCIUM, IONIZED Routine 12/15/2024 10:37 PM CDT MAGNESIUM Routine 12/15/2024 10:37 PM CDT PHOSPHORUS Routine 12/15/2024 10:37 PM CDT BASIC METABOLIC PANEL Routine 12/15/2024 10:37 PM CDT CBC WITHOUT DIFFERENTIAL Routine 12/15/2024 10:37 PM CDT URINALYSIS, MICROSCOPIC ONLY Routine 12/15/2024 9:20 PM CDT URINALYSIS AND REFLEX TO MICROSCOPIC AND CULTURE Routine 12/15/2024 9:20 PM CDT POC BLOOD GAS AND CHEMISTRIES, ARTERIAL Routine 12/15/2024 9:06 PM CDT POCT GLUCOSE DEVICE Routine 12/15/2024 8:46 PM CDT TROPONIN I HIGH-SENSITIVITY 6-HOUR Timed 12/15/2024 7:45 PM CDT TYPE AND SCREEN Timed 12/15/2024 7:45 PM CDT CRITICAL CARE Routine 12/15/2024 7:25 PM CDT Complete heart block (HCC) XR ABDOMEN AP 1 VIEW ED Urgent/IP Urgent 12/15/2024 6:50 PM CDT XR CHEST 1 VIEW ED Urgent/IP Urgent 12/15/2024 5:32 PM CDT POC BLOOD GAS AND CHEMISTRIES, ARTERIAL Routine 12/15/2024 5:10 PM CDT TROPONIN I HIGH-SENSITIVITY 2-HOUR Timed 12/15/2024 4:03 PM CDT POCT GLUCOSE DEVICE Routine 12/15/2024 4:01 PM CDT INFECTION PREVENTION JUSTICE AURIS PCR, SURVEILLANCE Routine 12/15/2024 2:27 PM CDT CRITICAL RESULT CALLBACK CARDIO CHEM Routine 12/15/2024 2:24 PM CDT TROPONIN I HIGH-SENSITIVITY SERIES (BASELINE, 2HR, 4HR, 6HR) Routine 12/15/2024 2:24 PM CDT CONTINUOUS VIDEO EEG Routine 12/15/2024 2:11 PM CDT TRANSTHORACIC ECHO (TTE) COMPLETE W DOPPLER/CF W CONTRAST ED Urgent/IP Urgent 12/15/2024 12:37 PM CDT POCT GLUCOSE DEVICE Routine 12/15/2024 11:36 AM CDT POCT GLUCOSE DEVICE Routine 12/15/2024 8:33 AM CDT CRITICAL CARE Routine 12/15/2024 7:16 AM CDT Complete heart block (HCC) POCT GLUCOSE DEVICE Routine 12/15/2024 4:05 AM CDT POCT GLUCOSE DEVICE Routine 12/15/2024 12:05 AM CDT EGFR Routine 12/15/2024 12:05 AM CDT MAGNESIUM Routine 12/15/2024 12:05 AM CDT PHOSPHORUS Routine 12/15/2024 12:05 AM CDT BASIC METABOLIC PANEL Routine 12/15/2024 12:05 AM CDT CBC WITHOUT DIFFERENTIAL Routine 12/15/2024 12:05 AM CDT POCT GLUCOSE DEVICE Routine 12/14/2024 8:48 PM CDT XR CHEST 1 VIEW IP Routine 12/14/2024 7:24 PM CDT CRITICAL CARE Routine 12/14/2024 6:09 PM CDT Heart valve disease POCT GLUCOSE DEVICE Routine 12/14/2024 4:34 PM CDT EGFR Timed 12/14/2024 4:34 PM CDT BASIC METABOLIC PANEL Timed 12/14/2024 4:34 PM CDT POCT GLUCOSE DEVICE Routine 12/14/2024 12:43 PM CDT EGFR Timed 12/14/2024 7:40 AM CDT BASIC METABOLIC PANEL Timed 12/14/2024 7:40 AM CDT POCT GLUCOSE DEVICE Routine 12/14/2024 7:36 AM CDT EGFR Timed 12/14/2024 4:57 AM CDT BLOOD GAS, ARTERIAL Timed 12/14/2024 4:57 AM CDT LACTATE, WHOLE BLOOD Timed 12/14/2024 4:57 AM CDT PHOSPHORUS Timed 12/14/2024 4:57 AM CDT MAGNESIUM Timed 12/14/2024 4:57 AM CDT BASIC METABOLIC PANEL Timed 12/14/2024 4:57 AM CDT POCT GLUCOSE DEVICE Routine 12/14/2024 4:55 AM CDT POC BLOOD GAS AND CHEMISTRIES, ARTERIAL Routine 12/14/2024 2:44 AM CDT PA INSJ NON-TUNNELED CENTRAL VENOUS CATH AGE 5 YR/> Routine 12/14/2024 1:52 AM CDT Bradycardia PA INSJ NON-TUNNELED CENTRAL VENOUS CATH AGE 5 YR/> Routine 12/14/2024 1:45 AM CDT Bradycardia PA ARTL CATHJ/CANNULJ MNTR/TRANSFUSION SPX PRQ Routine 12/14/2024 1:44 AM CDT Bradycardia XR CHEST 1 VIEW Critical/Life- Threatening 12/14/2024 1:28 AM CDT XR CHEST 1 VIEW Critical/Life- Threatening 12/14/2024 1:15 AM CDT XR CHEST 1 VIEW Critical/Life- Threatening 12/14/2024 12:20 AM CDT POC BLOOD GAS AND CHEMISTRIES, ARTERIAL Routine 12/13/2024 11:32 PM CDT EGFR Routine 12/13/2024 10:24 PM CDT MAGNESIUM Routine 12/13/2024 10:24 PM CDT POTASSIUM, WHOLE BLOOD STAT 10:24 PM CDT CALCIUM, IONIZED STAT 12/13/2024 10:24 PM CDT PHOSPHORUS Routine 12/13/2024 10:24 PM CDT BASIC METABOLIC PANEL Routine 12/13/2024 10:24 PM CDT CBC WITHOUT DIFFERENTIAL Routine 12/13/2024 10:24 PM CDT XR CHEST 1 VIEW IP Routine 12/13/2024 8:06 PM CDT POCT GLUCOSE DEVICE Routine 12/13/2024 7:44 PM CDT CRITICAL CARE Routine 12/13/2024 6:17 PM CDT Single vessel coronary artery disease XR CHEST 1 VIEW IP Routine 12/13/2024 5:50 PM CDT PEP THERAPY Routine 12/13/2024 3:00 PM CDT EGFR Timed 12/13/2024 2:54 PM CDT BASIC METABOLIC PANEL Timed 12/13/2024 2:54 PM CDT POCT GLUCOSE DEVICE Routine 12/13/2024 2:39 PM CDT EEG Routine 12/13/2024 2:04 PM CDT NURSE STAFF EVALUATE AND TREAT Routine 1:[address] HEAD WO CONTRAST ED Urgent/IP Urgent 12/13/2024 12:12 PM CDT POCT GLUCOSE DEVICE Routine 12/13/2024 11:29 AM CDT EGFR Timed 12/13/2024 10:20 AM CDT BASIC METABOLIC PANEL Timed 12/13/2024 10:20 AM CDT PEP THERAPY Routine 12/13/2024 9:00 AM CDT POCT GLUCOSE DEVICE Routine 12/13/2024 8:34 AM CDT XR CHEST 1 VIEW ED Urgent/IP Urgent 12/13/2024 8:32 AM CDT POCT GLUCOSE DEVICE Routine 12/13/2024 3:27 AM CDT POTASSIUM, WHOLE BLOOD STAT 3:27 AM CDT EGFR Routine 12/12/2024 10:37 PM CDT PHOSPHORUS Routine 12/12/2024 10:37 PM CDT BASIC METABOLIC PANEL Routine 12/12/2024 10:37 PM CDT CBC WITHOUT DIFFERENTIAL Routine 12/12/2024 10:37 PM CDT POCT GLUCOSE DEVICE Routine 12/12/2024 10:36 PM CDT PEP THERAPY Routine 12/12/2024 7:47 PM CDT PEP THERAPY Routine 12/12/2024 7:47 PM CDT POCT GLUCOSE DEVICE Routine 12/12/2024 7:33 PM CDT POTASSIUM, WHOLE BLOOD STAT 7:25 PM CDT TYPE AND SCREEN Timed 12/12/2024 7:25 PM CDT CRITICAL CARE Routine 12/12/2024 6:47 PM CDT Single vessel coronary artery disease POCT GLUCOSE DEVICE Routine 12/12/2024 3:50 PM CDT PROTIME-INR Routine 12/12/2024 12:03 PM CDT ECG 12-LEAD STAT 12/12/2024 11:50 AM CDT POCT GLUCOSE DEVICE Routine 12/12/2024 11:04 AM CDT XR CHEST 1 VIEW IP Routine 12/12/2024 7:35 AM CDT POCT GLUCOSE DEVICE Routine 12/12/2024 7:32 AM CDT CRITICAL CARE Routine 12/12/2024 6:27 AM CDT Toxic metabolic encephalopathy POTASSIUM, WHOLE BLOOD STAT 5:23 AM CDT POCT GLUCOSE DEVICE Routine 12/12/2024 3:16 AM CDT EGFR Routine 12/12/2024 12:09 AM CDT OXYHEMOGLOBIN, CENTRAL VENOUS STAT 12/12/2024 12:09 AM CDT CALCIUM, IONIZED Routine 12/12/2024 12:09 AM CDT PROTIME-INR Routine 12/12/2024 12:09 AM CDT PHOSPHORUS Routine 12/12/2024 12:09 AM CDT MAGNESIUM Routine 12/12/2024 12:09 AM CDT BASIC METABOLIC PANEL Routine 12/12/2024 12:09 AM CDT CBC WITHOUT DIFFERENTIAL Routine 12/12/2024 12:09 AM CDT POCT GLUCOSE DEVICE Routine 12/11/2024 11:07 PM CDT POCT GLUCOSE DEVICE Routine 12/11/2024 8:01 PM CDT CRITICAL CARE Routine 12/11/2024 7:08 PM CDT Aortic stenosis, severe POCT GLUCOSE DEVICE Routine 12/11/2024 3:40 PM CDT POCT GLUCOSE DEVICE Routine 12/11/2024 11:36 AM CDT INFLUENZA A/B, RSV, AND COVID-19 PCR Routine 12/11/2024 10:09 AM CDT XR CHEST 1 VIEW IP Routine 12/11/2024 9:44 AM CDT POCT GLUCOSE DEVICE Routine 12/11/2024 7:58 AM CDT CRITICAL CARE Routine 12/11/2024 6:53 AM CDT Toxic metabolic encephalopathy POCT GLUCOSE DEVICE Routine 12/11/2024 4:39 AM CDT INFECTION PREVENTION JUSTICE AURIS PCR, SURVEILLANCE Routine 12/11/2024 12:09 AM CDT POCT GLUCOSE DEVICE Routine 12/11/2024 12:01 AM CDT EGFR Routine 12/11/2024 12:01 AM CDT PROTIME-INR Routine 12/11/2024 12:01 AM CDT PHOSPHORUS Routine 12/11/2024 12:01 AM CDT MAGNESIUM Routine 12/11/2024 12:01 AM CDT BASIC METABOLIC PANEL Routine 12/11/2024 12:01 AM CDT CBC WITHOUT DIFFERENTIAL Routine 12/11/2024 12:01 AM CDT CRITICAL CARE Routine 12/10/2024 8:56 PM CDT Toxic metabolic encephalopathy POCT GLUCOSE DEVICE Routine 12/10/2024 7:28 PM CDT POCT GLUCOSE DEVICE Routine 12/10/2024 4:12 PM CDT POTASSIUM, WHOLE BLOOD STAT 4:12 PM CDT XR ABDOMEN AP 1 VIEW ED Urgent/IP Urgent 12/10/2024 2:20 PM CDT POTASSIUM, WHOLE BLOOD STAT 2:02 PM CDT POCT GLUCOSE DEVICE Routine 12/10/2024 1:54 PM CDT POCT GLUCOSE DEVICE Routine 12/10/2024 12:02 PM CDT POCT GLUCOSE DEVICE Routine 12/10/2024 10:10 AM CDT XR CHEST 1 VIEW ED Urgent/IP Urgent 12/10/2024 9:17 AM CDT POC BLOOD GAS AND CHEMISTRIES, ARTERIAL Routine 12/10/2024 8:00 AM CDT CRITICAL CARE Routine 12/10/2024 7:00 AM CDT Aortic stenosis, severe Single vessel coronary artery disease Toxic metabolic encephalopathy BLOOD GAS, ARTERIAL Timed 12/10/2024 6:30 AM CDT POCT GLUCOSE DEVICE Routine 12/10/2024 6:29 AM CDT POCT GLUCOSE DEVICE Routine 12/10/2024 4:44 AM CDT POTASSIUM LEVEL Timed 12/10/2024 4:44 AM CDT POCT GLUCOSE DEVICE Routine 12/10/2024 1:58 AM CDT POCT GLUCOSE DEVICE Routine 12/10/2024 12:21 AM CDT POTASSIUM LEVEL Timed 12/10/2024 12:21 AM CDT POCT GLUCOSE DEVICE Routine 12/09/2024 11:20 PM CDT POCT GLUCOSE DEVICE Routine 12/09/2024 10:29 PM CDT LIPID PANEL Routine 12/09/2024 10:26 PM CDT EGFR Routine 12/09/2024 10:26 PM CDT TYPE AND SCREEN Timed 12/09/2024 10:26 PM CDT PROTIME-INR Routine 12/09/2024 10:26 PM CDT PHOSPHORUS Routine 12/09/2024 10:26 PM CDT MAGNESIUM Routine 12/09/2024 10:26 PM CDT POTASSIUM, WHOLE BLOOD Routine 10:26 PM CDT BASIC METABOLIC PANEL Routine 12/09/2024 10:26 PM CDT CBC WITHOUT DIFFERENTIAL Routine 12/09/2024 10:26 PM CDT POTASSIUM LEVEL Timed 12/09/2024 10:26 PM CDT EXTUBATION Routine 12/09/2024 10:00 PM CDT POCT GLUCOSE DEVICE Routine 12/09/2024 9:39 PM CDT POCT GLUCOSE DEVICE Routine 12/09/2024 9:10 PM CDT POC BLOOD GAS AND CHEMISTRIES, ARTERIAL Routine 12/09/2024 8:14 PM CDT CRITICAL CARE Routine 12/09/2024 7:24 PM CDT Single vessel coronary artery disease POCT GLUCOSE DEVICE Routine 12/09/2024 6:52 PM CDT POC BLOOD GAS AND CHEMISTRIES, ARTERIAL Routine 12/09/2024 6:06 PM CDT OXYHEMOGLOBIN, CENTRAL VENOUS STAT 12/09/2024 5:40 PM CDT POCT GLUCOSE DEVICE Routine 12/09/2024 5:11 PM CDT POC BLOOD GAS AND CHEMISTRIES, ARTERIAL Routine 12/09/2024 4:54 PM CDT HEMOGLOBIN A1C STAT 12/09/2024 4:51 PM CDT EGFR STAT 12/09/2024 4:51 PM CDT COMPREHENSIVE METABOLIC PANEL STAT 12/09/2024 4:51 PM CDT CBC WITHOUT DIFFERENTIAL STAT 12/09/2024 4:51 PM CDT POCT GLUCOSE DEVICE Routine 12/09/2024 4:17 PM CDT XR CHEST 1 VIEW ED Urgent/IP Urgent 12/09/2024 4:16 PM CDT ECG 12-LEAD STAT 12/09/2024 3:41 PM CDT CRITICAL CARE Routine 12/09/2024 3:40 PM CDT OXYHEMOGLOBIN, CENTRAL VENOUS Routine 12/09/2024 3:38 PM CDT INFECTION PREVENTION JUSTICE AURIS PCR, SURVEILLANCE Routine 12/09/2024 3:38 PM CDT POC BLOOD GAS AND CHEMISTRIES, ARTERIAL Routine 12/09/2024 3:25 PM CDT POC BLOOD GAS AND CHEMISTRIES, ARTERIAL Routine 12/09/2024 2:01 PM CDT TRANSFUSE PLASMA Timed 12/09/2024 1:12 PM CDT PREPARE PLASMA STAT 12/09/2024 12:52 PM CDT POCT PARTIAL THROMBOPLASTIN TIME (PTT) Routine 12/09/2024 12:43 PM CDT POCT PROTHROMBIN TIME Routine 12/09/2024 12:43 PM CDT POCT PLATELET COUNT AND HEMATOCRIT Routine 12/09/2024 12:43 PM CDT POCT HEPARIN/ACT CPB Routine 12/09/2024 12:39 PM CDT POC BLOOD GAS AND CHEMISTRIES, ARTERIAL Routine 12/09/2024 12:37 PM CDT POC BLOOD GAS AND CHEMISTRIES, ARTERIAL Routine 12/09/2024 12:05 PM CDT POCT HEPARIN/ACT CPB Routine 12/09/2024 12:03 PM CDT POCT HEPARIN/ACT CPB Routine 12/09/2024 11:32 AM CDT POC BLOOD GAS AND CHEMISTRIES, ARTERIAL Routine 12/09/2024 11:31 AM CDT POCT HEPARIN/ACT CPB Routine 12/09/2024 11:01 AM CDT POC BLOOD GAS AND CHEMISTRIES, ARTERIAL Routine 12/09/2024 11:00 AM CDT SURGICAL PATHOLOGY Routine 12/09/2024 10:36 AM CDT Aortic stenosis, severe Single vessel coronary artery disease POCT HEPARIN/ACT CPB Routine 12/09/2024 10:34 AM CDT POC BLOOD GAS AND CHEMISTRIES, ARTERIAL Routine 12/09/2024 10:33 AM CDT POCT HEPARIN/ACT CPB Routine 12/09/2024 10:07 AM CDT POC BLOOD GAS AND CHEMISTRIES, ARTERIAL Routine 12/09/2024 10:06 AM CDT POC BLOOD GAS AND CHEMISTRIES, ARTERIAL Routine 12/09/2024 9:41 AM CDT POCT HEPARIN/ACT CPB Routine 12/09/2024 9:35 AM CDT 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 Routine 12/09/2024 8:47 AM CDT ANESTHESIA CENTRAL VENOUS LINE PLACEMENT Routine 12/09/2024 8:24 AM CDT ANESTHESIA CENTRAL VENOUS LINE PLACEMENT Routine 12/09/2024 8:23 AM CDT ANESTHESIA ARTERIAL LINE PLACEMENT Routine 12/09/2024 8:23 AM CDT ANESTHESIA INTUBATION Routine 12/09/2024 8:23 AM CDT POCT HEPARIN DOSE RESPONSE, CPB Routine 12/09/2024 7:35 AM CDT POC BLOOD GAS AND CHEMISTRIES, ARTERIAL Routine 12/09/2024 7:28 AM CDT CORONARY ARTERY BYPASS GRAFT WITH PUMP 12/09/2024 7:01 AM CDT Aortic stenosis, severe Single vessel coronary artery disease REPLACEMENT AORTIC VALVE/ROOT 12/09/2024 7:01 AM CDT Aortic stenosis, severe Single vessel coronary artery disease TYPE AND SCREEN STAT 12/09/2024 6:56 AM CDT ROSS ADD-ON FOR OR Routine 12/09/2024 6:04 AM CDT PREPARE RBC Timed 12/09/2024 5:42 AM CDT EGFR Routine 11/27/2024 12:51 PM CDT Preop testing DIFFERENTIAL AUTO Routine 11/27/2024 12:51 PM CDT Preop testing CPAP APTT ALGORITHM Routine 11/27/2024 12:51 PM CDT Preop testing PROTIME-INR Routine 11/27/2024 12:51 PM CDT Preop testing Aortic valve stenosis, etiology of cardiac valve disease unspecified TYPE AND SCREEN 14 DAY Routine 12:51 PM CDT Preop testing CBC WITH [...] - DEVICE Routine 11/12/2024 1:38 PM CDT from Last 3 Months Results * Glucose, random (Outreach) (01/18/2025 1:13 PM CDT) Glucose 95 70 - 199 mg/dL Comment: Interpretive Data Fasting glucose >/= 126 [...] Current interpretive data was last revised 2022. Blood 01/18/2025 1:13 PM CDT 01/18/2025 2:54 PM CDT Pacheco Mejia DO LAB BLOOD ORDERABLES Final Result [facility] Department [place] [address] * eGFR (01/18/2025 1:13 PM CDT) eGFR 73 >=60 mL/min/1. 73 [...] interpretive data was last reviewed 2021. Blood 01/18/2025 1:13 PM CDT 01/18/2025 3:14 PM CDT us Pacheco Mejia DO LAB BLOOD ORDERABLES Final Result [facility] Department [place] [address] * (ABNORMAL) Differential, auto (01/18/2025 1:13 PM CDT) Neutrophil abs 6.51(H) 1.50 - 6.50 K/cumm Imm gran abs 0.04 0.00 - 0.10 K/cumm [facility] Lymphocyte abs 0.92 0.80 - 3.30 K/cumm [facility] Monocyte abs 0.48 0.20 - 0.80 K/cumm [facility] Eosinophil abs 0.33 0.00 - 0.50 K/cumm [facility] Basophil abs 0.08 0.00 - 0.10 K/cumm [facility] Neutrophil pct 77.9 % [facility] Comment: Interpretive Data Percent cell count reference ranges are not reported, since discordance with absolute values may lead to misinterpretation of CBC data. Current Interpretive Data was last revised on 2017. Imm gran pct 0.5 % [facility] Comment: Interpretive Data Percent cell count reference ranges are not reported, since discordance with absolute values may lead to misinterpretation of CBC data. Current Interpretive Data was last revised on 2017. Lymphocyte pct 11.0 % [facility] Comment: Interpretive Data Percent cell count reference ranges are not reported, since discordance with absolute values may lead to misinterpretation of CBC data. Current Interpretive Data was last revised on 2017. Monocyte pct 5.7 % [facility] Comment: Interpretive Data Percent cell count reference ranges are not reported, since discordance with absolute values may lead to misinterpretation of CBC data. Current Interpretive Data was last revised on 2017. Eosinophil pct 3.9 % [facility] Comment: Interpretive Data Percent cell count reference ranges are not reported, since discordance with absolute values may lead to misinterpretation of CBC data. Current Interpretive Data was last revised on 2017. Basophil pct 1.0 % [facility] Comment: Interpretive Data Percent cell count reference ranges are not reported, since discordance with absolute values may lead to misinterpretation of CBC data. Current Interpretive Data was last revised on 2017. Blood 01/18/2025 1:13 PM CDT 01/18/2025 2:54 PM CDT Pacheco Mejia LAB BLOOD ORDERABLES Final Result Performing Organization Address [facility] [place] de Phone Number [facility] Department [place] [address] * Basic metabolic panel without glucose (01/18/2025 1:13 PM CDT) [facility] Sodium 139 135 - 145 mmol/L Potassium, pl 4.6 3.3 - 4.9 mmol/L [facility] Chloride 105 97 - 110 mmol/L [facility] CO2 25 22 - 32 mmol/L [facility] Anion gap 9 2 - 15 mmol/L [facility] BUN 22 6 - 25 mg/dL [facility] Creatinine 0.89 0.60 - 1.10 mg/dL [facility] Calcium 9.3 8.5 - 10.3 mg/dL [facility] Blood 01/18/2025 1:13 PM CDT 01/18/2025 2:54 PM CDT Pacheco Mejia DO LAB BLOOD ORDERABLES Final Result Performing Organization Address [facility] [place] de Phone Number [facility] Department [place] [address] * (ABNORMAL) CBC with auto differential (01/18/2025 1:13 PM CDT) [facility] WBC 8.36 3.80 - 9.90 K/cumm Hgb 11.2(L) 11.9 - 15.5 g/dL [facility] Hct 35.2(L) 35.6 - 45.5 % [facility] Plt 267 150 - 400 K/cumm [facility] MPV 9.0(L) 9.1 - 12.3 fL [facility] RBC 4.04 3.90 - 5.20 M/cumm [facility] MCV 87.1 81.3 - 96.4 fL [facility] MCH 27.7 27.1 - 33.3 pg [facility] MCHC 31.8(L) 32.3 - 35.7 g/dL [facility] RDW CV 15.8(H) 11.1 - 14.9 % [facility] RDW SD 50.8(H) 35.7 - 48.1 fL [facility] NRBC abs 0.00 0.00 - 0.01 K/cumm [facility] Blood 01/18/2025 1:13 PM CDT 01/18/2025 2:54 PM CDT Pacheco Mejia DO LAB BLOOD ORDERABLES Final Result [facility] Department [place] [address] * (ABNORMAL) CS GLUCOSE (01/12/2025 10:04 AM CDT) [facility] Glucose 57(L) 70 - 199 mg/dL [facility] Comment: Interpretive Data Fasting glucose >/= 126 [...] Current interpretive data was last revised 2022. Testing performed by: [facility], [address] [facility], [place]., [address] Blood 01/12/2025 10:0 4 AM CDT 01/12/2025 1:57 PM CDT us Notinfile Unknown LAB BLOOD ORDERABLES Final Res ult [facility] Department [place] [address] * (ABNORMAL) eGFR (01/12/2025 10:04 AM CDT) eGFR 53(L) >=60 mL/min/1. 73 m2 [facility] Comment: Interpretive Data Reference Interval Normal >/= [...] Current interpretive data was last reviewed 2021. Testing performed by: [facility], [address] [facility], [place]., [address] Blood 01/12/2025 10:0 4 AM CDT 01/12/2025 2:11 PM CDT us Notinfile Unknown LAB BLOOD ORDERABLES Final Res ult [facility] Department [place] [address] * (ABNORMAL) Differential, auto (01/12/2025 10:04 AM CDT) Neutrophil abs 9.30(H) 1.50 - 6.50 K/cumm [facility] Comment:Testing performed by : [facility], [address] [place]., [address] Imm gran abs 0.05 0.00 - 0.10 K/cumm [facility] Comment:Testing performed by : [facility], [address] [place]., [address] Lymphocyte abs 1.08 0.80 - 3.30 K/cumm [facility] Comment:Testing performed by : [facility], [address] [place]., [address] Monocyte abs 0.93(H) 0.20 - 0.80 K/cumm [facility] Comment:Testing performed by : [facility], [address] [place]., [address] Eosinophil abs 0.69(H) 0.00 - 0.50 K/cumm [facility] Comment:Testing performed by : [facility], [address] [place]., [address] Basophil abs 0.12(H) 0.00 - 0.10 K/cumm [facility] Comment:Testing performed by : [facility], [address] [place] [address] Neutrophil pct 76.4 % [facility] Comment: Interpretive Data Percent cell count reference ranges are not reported, since discordance with absolute values may lead to misinterpretation of CBC data. Current Interpretive Data was last revised on 2017. Testing performed by: [facility], [address] [place] [address] Imm gran pct 0.4 % [facility] Comment: Interpretive Data Percent cell count reference ranges are not reported, since discordance with absolute values may lead to misinterpretation of CBC data. Current Interpretive Data was last revised on 2017. Testing performed by: [facility], [address] [place] [address] Lymphocyte pct 8.9 % [facility] Comment: Interpretive Data Percent cell count reference ranges are not reported, since discordance with absolute values may lead to misinterpretation of CBC data. Current Interpretive Data was last revised on 2017. Testing performed by: [facility], [address] [place]., [address] Monocyte pct 7.6 % [facility] Comment: Interpretive Data Percent cell count reference ranges are not reported, since discordance with absolute values may lead to misinterpretation of CBC data. Current Interpretive Data was last revised on 2017. Testing performed by: [facility], [address] [place] [address] Eosinophil pct 5.7 % [facility] Comment: Interpretive Data Percent cell count reference ranges are not reported, since discordance with absolute values may lead to misinterpretation of CBC data. Current Interpretive Data was last revised on 2017. Testing performed by: [facility], [address] [place] [address] Basophil pct 1.0 % [facility] Comment: Interpretive Data Percent cell count reference ranges are not reported, since discordance with absolute values may lead to misinterpretation of CBC data. Current Interpretive Data was last revised on 2017. Testing performed by: [facility], [address] [place] [address] Blood 01/12/2025 10:0 4 AM CDT 01/12/2025 1:57 PM CDT us Notinfile Unknown LAB BLOOD ORDERABLES Final Res ult [facility] Department [place] [address] * (ABNORMAL) Comprehensive metabolic panel, without glucose (Outreach) (01/12/2025 10:04 AM CDT) Sodium 142 135 - 145 mmol/L [facility] Comment:Testing performed by : [facility], [address] [place] [address] Potassium, pl 4.3 3.3 - 4.9 mmol/L [facility] Comment:Testing performed by : [facility], [address] [facility], [address] Chloride 102 97 - 110 mmol/L [facility] Comment:Testing performed by : [facility], [address] [facility], [address] CO2 27 22 - 32 mmol/L [facility] Comment:Testing performed by : [facility], [address] [facility], [address] Anion gap 13 2 - 15 mmol/L [facility] Comment:Testing performed by : [facility], [address] [facility], [address] BUN 24 6 - 25 mg/dL [facility] Comment:Testing performed by : [facility], [address] [facility], [address] Creatinine 1.16(H) 0.60 - 1.10 mg/dL [facility] Comment:Testing performed by : [facility], [address] [facility], [address] Calcium 10.1 8.5 - 10.3 mg/dL [facility] Comment:Testing performed by : [facility], [address] [facility], [address] Protein, pl 7.3 6.5 - 8.5 g/dL [facility] Comment:Testing performed by : [facility], [address] [facility], [address] Albumin 4.6 3.5 - 5.0 g/dL [facility] Comment:Testing performed by : [facility], [address] [facility], [address] Bilirubin, total 0.5 0.1 - 1.2 mg/dL [facility] Comment:Testing performed by : [facility], [address] [facility], [address] Alk phos 86 40 - 130 Units/L [facility] Comment:Testing performed by : [facility], [address] [facility], [address] AST 28 10 - 45 Units/L [facility] Comment:Testing performed by : [facility], [address] [facility], [address] ALT 25 7 - 45 Units/L [facility] Comment:Testing performed by : [facility], 1 [facility], [address] Blood 01/12/2025 10:0 4 AM CDT 01/12/2025 1:57 PM CDT us Notinfile Unknown LAB BLOOD ORDERABLES Final [facility] Department [place] [address] * (ABNORMAL) CBC with auto differential (01/12/2025 10:04 AM CDT) WBC 12.17(H) 3.80 - 9.90 K/cumm [facility] Comment:Testing performed by : [facility], [address] [facility], [address] Hgb 11.7(L) 11.9 - 15.5 g/dL [facility] Comment:Testing performed by : [facility], [address] [facility], [address] Hct 38.1 35.6 - 45.5 % [facility] Comment:Testing performed by : [facility], [address] [facility], [address] Plt 345 150 - 400 K/cumm [facility] Comment:Testing performed by : [facility], [address] [facility], [address] MPV 9.0(L) 9.1 - 12.3 fL [facility] Comment:Testing performed by : [facility], [address] [facility], [address] RBC 4.29 3.90 - 5.20 M/cumm [facility] Comment:Testing performed by : [facility], [address] [facility], [address] MCV 88.8 81.3 - 96.4 fL [facility] Comment:Testing performed by : [facility], [address] [facility], [address] MCH 27.3 27.1 - 33.3 pg [facility] Comment:Testing performed by : [facility], [address] [facility], [address] MCHC 30.7(L) 32.3 - 35.7 g/dL [facility] Comment:Testing performed by : [facility], [address] [facility], [address] RDW CV 15.9(H) 11.1 - 14.9 % [facility] Comment:Testing performed by : [facility], [address] [facility], [address] RDW SD 51.7(H) 35.7 - 48.1 fL [facility] Comment:Testing performed by : [facility], [address] [facility], [address] NRBC abs 0.00 0.00 - 0.01 K/cumm [facility] Comment:Testing performed by : [facility], [address] [facility], [address] Blood 01/12/2025 10:0 4 AM CDT 01/12/2025 1:57 PM CDT us Notinfile Unknown LAB BLOOD ORDERABLES Final Res ult [facility] Department [place] [address] * (ABNORMAL) CS GLUCOSE (01/08/2025 12:20 PM CDT) Glucose 68(L) 70 - 199 mg/dL [facility] Comment: Interpretive Data Fasting glucose >/= 126 [...] classification and Diagnosis of Diabetes Diabetes Care 2021; 46: [id number]. Current interpretive data was last revised 2022. Testing performed by: [facility], [address] [place]., [address] Blood 01/08/2025 12:2 0 PM CDT 01/08/2025 1:36 PM CDT us Notinfile Unknown LAB BLOOD ORDERABLES Final Res ult [facility] Department [place] [address] * (ABNORMAL) eGFR (01/08/2025 12:20 PM CDT) eGFR 59(L) >=60 mL/min/1. 73 m2 [facility] Comment: Interpretive Data Reference Interval Normal >/= [...] Current interpretive data was last reviewed 2021. Testing performed by: [facility], [address] [place]., [address] Blood 01/08/2025 12:2 0 PM CDT 01/08/2025 2:02 PM CDT us Notinfile Unknown LAB BLOOD ORDERABLES Final Res ult [facility] Department [place] [address] * (ABNORMAL) Differential, auto (01/08/2025 12:20 PM CDT) Neutrophil abs 6.42 1.50 - 6.50 K/cumm [facility] Comment:Testing performed by : [facility], [address] [place]., [address] Imm gran abs 0.03 0.00 - 0.10 K/cumm [facility] Comment:Testing performed by : [facility], [address] [place]., [address] Lymphocyte abs 1.12 0.80 - 3.30 K/cumm [facility] Comment:Testing performed by : [facility], [address] [place] [address] Monocyte abs 0.59 0.20 - 0.80 K/cumm [facility] Comment:Testing performed by : [facility], [address] [place] [address] Eosinophil abs 0.60(H) 0.00 - 0.50 K/cumm [facility] Comment:Testing performed by : [facility], [address] [place] [address] Basophil abs 0.09 0.00 - 0.10 K/cumm [facility] Comment:Testing performed by : [facility], [address] [place] [address]., [address] Neutrophil pct 72.5 % [facility] Comment: Interpretive Data Percent cell count reference ranges are not reported, since discordance with absolute values may lead to misinterpretation of CBC data. Current Interpretive Data was last revised on 2017. Testing performed by: [facility], [address] [place] [address] Imm gran pct 0.3 % [facility] Comment: Interpretive Data Percent cell count reference ranges are not reported, since discordance with absolute values may lead to misinterpretation of CBC data. Current Interpretive Data was last revised on 2017. Testing performed by: [facility], [address] [place] [address] Lymphocyte pct 12.7 % [facility] Comment: Interpretive Data Percent cell count reference ranges are not reported, since discordance with absolute values may lead to misinterpretation of CBC data. Current Interpretive Data was last revised on 2017. Testing performed by: [facility], [address] [place] [address] Monocyte pct 6.7 % [facility] Comment: Interpretive Data Percent cell count reference ranges are not reported, since discordance with absolute values may lead to misinterpretation of CBC data. Current Interpretive Data was last revised on 2017. Testing performed by: [facility], [address] [place] [address] Eosinophil pct 6.8 % [facility] Comment: Interpretive Data Percent cell count reference ranges are not reported, since discordance with absolute values may lead to misinterpretation of CBC data. Current Interpretive Data was last revised on 2017. Testing performed by: [facility], [address] [place] [address] Basophil pct 1.0 % [facility] Comment: Interpretive Data Percent cell count reference ranges are not reported, since discordance with absolute values may lead to misinterpretation of CBC data. Current Interpretive Data was last revised on 2017. Testing performed by: [facility], [address] [place]., [address] Blood 01/08/2025 12:2 0 PM CDT 01/08/2025 1:36 PM CDT us Notinfile Unknown LAB BLOOD ORDERABLES Final Res ult [facility] Department [place] [address] * Comprehensive metabolic panel, without glucose (Outreach) (01/08/2025 12:20 PM CDT) Sodium 141 135 - 145 mmol/L [facility] Comment:Testing performed by : [facility], [address] [facility], [address] Potassium, pl 4.3 3.3 - 4.9 mmol/L [facility] Comment:Testing performed by : [facility], [address] [place] [address], [address] Chloride 102 97 - 110 mmol/L [facility] Comment:Testing performed by : [facility], [address] [facility], [address] CO2 26 22 - 32 mmol/L [facility] Comment:Testing performed by : [facility], [address] [facility], [address] Anion gap 13 2 - 15 mmol/L [facility] Comment:Testing performed by : [facility], [address] [facility], [address] BUN 22 6 - 25 mg/dL [facility] Comment:Testing performed by : [facility], [address] [facility], [address] Creatinine 1.06 0.60 - 1.10 mg/dL [facility] Comment:Testing performed by : [facility], [address] [facility], [address] Calcium 9.6 8.5 - 10.3 mg/dL [facility] Comment:Testing performed by : [facility], [address] [place] [address] Protein, pl 6.5 6.5 - 8.5 g/dL [facility] Comment:Testing performed by : [facility], [address] [facility], [address] Albumin 4.0 3.5 - 5.0 g/dL [facility] Comment:Testing performed by : [facility], [address] [facility], [address] Bilirubin, total 0.4 0.1 - 1.2 mg/dL [facility] Comment:Testing performed by : [facility], [address] [facility], [address] Alk phos 82 40 - 130 Units/L [facility] Comment:Testing performed by : [facility], [address] [facility], [address] AST 25 10 - 45 Units/L [facility] Comment:Testing performed by : [facility], [address] [facility], [address] ALT 34 7 - 45 Units/L [facility] Comment:Testing performed by : [facility], 1 [facility], [id number] Blood 01/08/2025 12:2 0 PM CDT 01/08/2025 1:36 PM CDT us Notinfile Unknown LAB BLOOD ORDERABLES Final Res ult [facility] Department [place] [address] * (ABNORMAL) CBC with auto differential (01/08/2025 12:20 PM CDT) WBC 8.85 3.80 - 9.90 K/cumm [facility] Comment:Testing performed by : [facility], 1 [facility], [address] Hgb 9.3(L) 11.9 - 15.5 g/dL [facility] Comment:Testing performed by : [facility], 1 [facility], [address] Hct 30.7(L) 35.6 - 45.5 % [facility] Comment:Testing performed by : [facility], 1 [facility], [address] Plt 255 150 - 400 K/cumm [facility] Comment:Testing performed by : [facility], 1 [facility], [address] MPV 8.9(L) 9.1 - 12.3 fL [facility] Comment:Testing performed by : [facility], 1 [facility], [address] RBC 3.44(L) 3.90 - 5.20 M/cumm [facility] Comment:Testing performed by : [facility], 1 [facility], [address] MCV 89.2 81.3 - 96.4 fL [facility] Comment:Testing performed by : [facility], 1 [facility], [address] MCH 27.0(L) 27.1 - 33.3 pg [facility] Comment:Testing performed by : [facility], [address] [place] [address], [address] MCHC 30.3(L) 32.3 - 35.7 g/dL [facility] Comment:Testing performed by : [facility], [address] [place] [address], [address] RDW CV 15.5(H) 11.1 - 14.9 % [facility] Comment:Testing performed by : [facility], 1 [facility], [address] RDW SD 49.9(H) 35.7 - 48.1 fL [facility] Comment:Testing performed by : [facility], 1 [place]., [address] NRBC abs 0.00 0.00 - 0.01 K/cumm [facility] Comment:Testing performed by : [facility], [address] [place]., [address] Blood 01/08/2025 12:2 0 PM CDT 01/08/2025 1:36 PM CDT us Notinfile Unknown LAB BLOOD ORDERABLES Final Res ult [facility] Department [place] [address] * CTA Chest Abdomen Pelvis (01/07/2025 3:43 PM CDT) Anatomical Region Laterality Modality Body N/A Computed Tomogra phy 01/08/2025 9:15 AM CDT Impressions 01/09/2025 12:45 PM CDT 1. 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 2. Delayed opacification of the radial artery with nonopacification of the level of the wrist, possibly due to slow flow or bolus timing or related to prior brachial artery access. Consider further evaluation with Doppler evaluation of the hand is clinically indicated. 3. Small left and trace right pleural effusions. 4. Unchanged indeterminate left adrenal nodule. Consider follow-up adrenal protocol CT in 12 months. 5. No significant change in right adnexal lesion, indeterminate. Recommend nonurgent pelvic ultrasound for further evaluation. Dictated by: Enrike Caceres M.D. The radiology attending physician has personally reviewed this study, and had reviewed and/or edited this written report and agrees with it. Electronically signed by: Keely Pressley M.D. Narrative 01/09/2025 12:45 PM CDT EXAMINATION: CT ANGIOGRAPHY OF THE CHEST WITHOUT AND WITH CONTRAST CT ANGIOGRAPHY OF THE RIGHT UPPER EXTREMITY WITH AND WITHOUT CONTRAST HISTORY: Difference in blood pressure between the right and left arm TECHNIQUE: CT angiography of the chest was performed following the uneventful intravenous administration of 69 ml Optiray-350. Vascular 3D images were generated on a dedicated workstation and also reviewed. CT angiography of the RIGHT upper extremity was performed following the uneventful intravenous administration of 69 ml Optiray-350. Vascular 3D images were generated on a dedicated workstation and also reviewed. COMPARISON: 11/12/2024 FINDINGS: VASCULAR FINDINGS: There are postoperative changes of median sternotomy and aortic valve replacement. The thoracic aorta is normal in caliber. There is thickening of the pulmonic valve which appears unchanged from prior examination. No aortic dissection or acute aortic pathology identified. There is mild calcified atherosclerosis of the thoracic aorta. Normal course and caliber of the great vessels. Changes of coronary artery bypass grafting. The abdominal aorta is mildly atherosclerotic without aneurysm. The celiac axis, superior mesenteric artery, bilateral renal arteries and inferior mesenteric artery are widely patent. There is approximately 2.5 cm occlusion of the proximal right axillary artery there is adjacent inflammatory stranding. There is mild focal narrowing just beyond the site of occlusion (series 5, image 525). There is delayed opacification of the radial artery with nonopacification at the level of the wrist. Otherwise, the arteries of the right upper extremity appear normal. NON-VASCULAR FINDINGS: Changes of median sternotomy. There is small volume fluid within the anterior mediastinum which is higher attenuation than simple fluid, likely postoperative. No drainable collection. Heart size is normal. There are significant mitral annular calcifications. Interval placement of right subclavian approach pacemaker with leads terminating in the right atrium and right ventricle. There is a stranding and thickening noted along the superior aspect generator pack in the right chest wall (extremity series 7, image 526). No drainable collection. Small left and trace right pleural effusions. Mild mediastinal lymphadenopathy is favored to be reactive. Trace pericardial fluid. No focal hepatic lesion. No biliary duct dilatation. There is cholelithiasis without acute cholecystitis. Surgical clips and suture material noted along the greater curvature of the stomach. Pancreas, spleen and right adrenal gland appeared normal. Unchanged 1.8 cm left adrenal gland, indeterminate. No focal renal lesion identified. No hydronephrosis. Urinary bladder is decompressed. The uterus is surgically absent. No definite change in solid right adnexal mass measuring approximately 3.5 x 2.7 cm, previously 3.3 x 2.6 cm. The bowel is normal in caliber. No evidence of obstruction. No free intraperitoneal gas or fluid. No abdominal or pelvic lymphadenopathy. No acute fracture or suspicious osseous lesion. Procedure Note Keely Pressley MD - 01/09/2025 EXAMINATION: CT ANGIOGRAPHY OF THE CHEST WITHOUT AND WITH CONTRAST CT ANGIOGRAPHY OF THE RIGHT UPPER EXTREMITY WITH AND WITHOUT CONTRAST HISTORY: Difference in blood pressure between the right and left arm TECHNIQUE: CT angiography of the chest was performed following the uneventful intravenous administration of 69 ml Optiray-350. Vascular 3D images were generated on a dedicated workstation and also reviewed. CT angiography of the RIGHT upper extremity was performed following the uneventful intravenous administration of 69 ml Optiray-350. Vascular 3D images were generated on a dedicated workstation and also reviewed. COMPARISON: 11/12/2024 FINDINGS: VASCULAR FINDINGS: There are postoperative changes of median sternotomy and aortic valve replacement. The thoracic aorta is normal in caliber. There is thickening of the pulmonic valve which appears unchanged from prior examination. No aortic dissection or acute aortic pathology identified. There is mild calcified atherosclerosis of the thoracic aorta. Normal course and caliber of the great vessels. Changes of coronary artery bypass grafting. The abdominal aorta is mildly atherosclerotic without aneurysm. The celiac axis, superior mesenteric artery, bilateral renal arteries and inferior mesenteric artery are widely patent. There is approximately 2.5 cm occlusion of the proximal right axillary artery there is adjacent inflammatory stranding. There is mild focal narrowing just beyond the site of occlusion (series 5, image 525). There is delayed opacification of the radial artery with nonopacification at the level of the wrist. Otherwise, the arteries of the right upper extremity appear normal. NON-VASCULAR FINDINGS: Changes of median sternotomy. There is small volume fluid within the anterior mediastinum which is higher attenuation than simple fluid, likely postoperative. No drainable collection. Heart size is normal. There are significant mitral annular calcifications. Interval placement of right subclavian approach pacemaker with leads terminating in the right atrium and right ventricle. There is a stranding and thickening noted along the superior aspect generator pack in the right chest wall (extremity series 7, image 526). No drainable collection. Small left and trace right pleural effusions. Mild mediastinal lymphadenopathy is favored to be reactive. Trace pericardial fluid. No focal hepatic lesion. No biliary duct dilatation. There is cholelithiasis without acute cholecystitis. Surgical clips and suture material noted along the greater curvature of the stomach. Pancreas, spleen and right adrenal gland appeared normal. Unchanged 1.8 cm left adrenal gland, indeterminate. No focal renal lesion identified. No hydronephrosis. Urinary bladder is decompressed. The uterus is surgically absent. No definite change in solid right adnexal mass measuring approximately 3.5 x 2.7 cm, previously 3.3 x 2.6 cm. The bowel is normal in caliber. No evidence of obstruction. No free intraperitoneal gas or fluid. No abdominal or pelvic lymphadenopathy. No acute fracture or suspicious osseous lesion. IMPRESSION: 1. 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 2. Delayed opacification of the radial artery with nonopacification of the level of the wrist, possibly due to slow flow or bolus timing or related to prior brachial artery access. Consider further evaluation with Doppler evaluation of the hand is clinically indicated. 3. Small left and trace right pleural effusions. 4. Unchanged indeterminate left adrenal nodule. Consider follow-up adrenal protocol CT in 12 months. 5. No significant change in right adnexal lesion, indeterminate. Recommend nonurgent pelvic ultrasound for further evaluation. Dictated by: Enrike Caceres M.D. The radiology attending physician has personally reviewed this study, and had reviewed and/or edited this written report and agrees with it. Electronically signed by: Keely Pressley M.D. Jessica AUGUSTIN IMG CT PROCEDURES Fi nal Result * CTA Upper Extremity Right W WO Contrast (01/07/2025 3:43 PM CDT) Anatomical Region Laterality Modality Upper Extremities Right Computed Tomog ferdinand 01/08/2025 9:15 AM CDT Impressions 01/09/2025 12:45 PM CDT 1. 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 2. Delayed opacification of the radial artery with nonopacification of the level of the wrist, possibly due to slow flow or bolus timing or related to prior brachial artery access. Consider further evaluation with Doppler evaluation of the hand is clinically indicated. 3. Small left and trace right pleural effusions. 4. Unchanged indeterminate left adrenal nodule. Consider follow-up adrenal protocol CT in 12 months. 5. No significant change in right adnexal lesion, indeterminate. Recommend nonurgent pelvic ultrasound for further evaluation. Dictated by: Enrike Caceres M.D. The radiology attending physician has personally reviewed this study, and had reviewed and/or edited this written report and agrees with it. Electronically signed by: Keely Pressley M.D. Narrative 01/09/2025 12:45 PM CDT EXAMINATION: CT ANGIOGRAPHY OF THE CHEST WITHOUT AND WITH CONTRAST CT ANGIOGRAPHY OF THE RIGHT UPPER EXTREMITY WITH AND WITHOUT CONTRAST HISTORY: Difference in blood pressure between the right and left arm TECHNIQUE: CT angiography of the chest was performed following the uneventful intravenous administration of 69 ml Optiray-350. Vascular 3D images were generated on a dedicated workstation and also reviewed. CT angiography of the RIGHT upper extremity was performed following the uneventful intravenous administration of 69 ml Optiray-350. Vascular 3D images were generated on a dedicated workstation and also reviewed. COMPARISON: 11/12/2024 FINDINGS: VASCULAR FINDINGS: There are postoperative changes of median sternotomy and aortic valve replacement. The thoracic aorta is normal in caliber. There is thickening of the pulmonic valve which appears unchanged from prior examination. No aortic dissection or acute aortic pathology identified. There is mild calcified atherosclerosis of the thoracic aorta. Normal course and caliber of the great vessels. Changes of coronary artery bypass grafting. The abdominal aorta is mildly atherosclerotic without aneurysm. The celiac axis, superior mesenteric artery, bilateral renal arteries and inferior mesenteric artery are widely patent. There is approximately 2.5 cm occlusion of the proximal right axillary artery there is adjacent inflammatory stranding. There is mild focal narrowing just beyond the site of occlusion (series 5, image 525). There is delayed opacification of the radial artery with nonopacification at the level of the wrist. Otherwise, the arteries of the right upper extremity appear normal. NON-VASCULAR FINDINGS: Changes of median sternotomy. There is small volume fluid within the anterior mediastinum which is higher attenuation than simple fluid, likely postoperative. No drainable collection. Heart size is normal. There are significant mitral annular calcifications. Interval placement of right subclavian approach pacemaker with leads terminating in the right atrium and right ventricle. There is a stranding and thickening noted along the superior aspect generator pack in the right chest wall (extremity series 7, image 526). No drainable collection. Small left and trace right pleural effusions. Mild mediastinal lymphadenopathy is favored to be reactive. Trace pericardial fluid. No focal hepatic lesion. No biliary duct dilatation. There is cholelithiasis without acute cholecystitis. Surgical clips and suture material noted along the greater curvature of the stomach. Pancreas, spleen and right adrenal gland appeared normal. Unchanged 1.8 cm left adrenal gland, indeterminate. No focal renal lesion identified. No hydronephrosis. Urinary bladder is decompressed. The uterus is surgically absent. No definite change in solid right adnexal mass measuring approximately 3.5 x 2.7 cm, previously 3.3 x 2.6 cm. The bowel is normal in caliber. No evidence of obstruction. No free intraperitoneal gas or fluid. No abdominal or pelvic lymphadenopathy. No acute fracture or suspicious osseous lesion. Procedure Note Keely Pressley MD - 01/09/2025 EXAMINATION: CT ANGIOGRAPHY OF THE CHEST WITHOUT AND WITH CONTRAST CT ANGIOGRAPHY OF THE RIGHT UPPER EXTREMITY WITH AND WITHOUT CONTRAST HISTORY: Difference in blood pressure between the right and left arm TECHNIQUE: CT angiography of the chest was performed following the uneventful intravenous administration of 69 ml Optiray-350. Vascular 3D images were generated on a dedicated workstation and also reviewed. CT angiography of the RIGHT upper extremity was performed following the uneventful intravenous administration of 69 ml Optiray-350. Vascular 3D images were generated on a dedicated workstation and also reviewed. COMPARISON: 11/12/2024 FINDINGS: VASCULAR FINDINGS: There are postoperative changes of median sternotomy and aortic valve replacement. The thoracic aorta is normal in caliber. There is thickening of the pulmonic valve which appears unchanged from prior examination. No aortic dissection or acute aortic pathology identified. There is mild calcified atherosclerosis of the thoracic aorta. Normal course and caliber of the great vessels. Changes of coronary artery bypass grafting. The abdominal aorta is mildly atherosclerotic without aneurysm. The celiac axis, superior mesenteric artery, bilateral renal arteries and inferior mesenteric artery are widely patent. There is approximately 2.5 cm occlusion of the proximal right axillary artery there is adjacent inflammatory stranding. There is mild focal narrowing just beyond the site of occlusion (series 5, image 525). There is delayed opacification of the radial artery with nonopacification at the level of the wrist. Otherwise, the arteries of the right upper extremity appear normal. NON-VASCULAR FINDINGS: Changes of median sternotomy. There is small volume fluid within the anterior mediastinum which is higher attenuation than simple fluid, likely postoperative. No drainable collection. Heart size is normal. There are significant mitral annular calcifications. Interval placement of right subclavian approach pacemaker with leads terminating in the right atrium and right ventricle. There is a stranding and thickening noted along the superior aspect generator pack in the right chest wall (extremity series 7, image 526). No drainable collection. Small left and trace right pleural effusions. Mild mediastinal lymphadenopathy is favored to be reactive. Trace pericardial fluid. No focal hepatic lesion. No biliary duct dilatation. There is cholelithiasis without acute cholecystitis. Surgical clips and suture material noted along the greater curvature of the stomach. Pancreas, spleen and right adrenal gland appeared normal. Unchanged 1.8 cm left adrenal gland, indeterminate. No focal renal lesion identified. No hydronephrosis. Urinary bladder is decompressed. The uterus is surgically absent. No definite change in solid right adnexal mass measuring approximately 3.5 x 2.7 cm, previously 3.3 x 2.6 cm. The bowel is normal in caliber. No evidence of obstruction. No free intraperitoneal gas or fluid. No abdominal or pelvic lymphadenopathy. No acute fracture or suspicious osseous lesion. IMPRESSION: 1. 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 2. Delayed opacification of the radial artery with nonopacification of the level of the wrist, possibly due to slow flow or bolus timing or related to prior brachial artery access. Consider further evaluation with Doppler evaluation of the hand is clinically indicated. 3. Small left and trace right pleural effusions. 4. Unchanged indeterminate left adrenal nodule. Consider follow-up adrenal protocol CT in 12 months. 5. No significant change in right adnexal lesion, indeterminate. Recommend nonurgent pelvic ultrasound for further evaluation. Dictated by: Enrike Caceres M.D. The radiology attending physician has personally reviewed this study, and had reviewed and/or edited this written report and agrees with it. Electronically signed by: Keely Pressley M.D. Jessica AUG[facility]IN IMG CT PROCEDURES Fi nal Result * DEVICE CHECK - IN OFFICE (01/07/2025 8:15 AM CDT) Anatomical Region Laterality Modality Other 01/07/2025 2:00 AM CDT Narrative 01/08/2025 7:49 AM CDT Interpretation Summary: Battery and Leads (BL) Normal parameters noted on battery and lead(s) --- battery longevity estimate: 14.3 yrs. Magnet rate 85 bpm Presenting Rhythm (PA) Atrial Sensing-Ventricular Sensing (-VS) --- Underlying rhythm: NSR 70s Arrhythmic events (AE) No new arrhythmic events in monitoring period Anticoagulation (AC) Patient prescribed Apixaban (Eliquis) Patient on anticoagulant therapy Procedure Note Chan Reece MD - 01/08/2025 Interpretation Summary: Battery and Leads (BL) Normal parameters noted on battery and lead(s) --- battery longevityestimate: 14.3 yrs. Magnet rate 85 bpm Presenting Rhythm (PA) Atrial Sensing-Ventricular Sensing (-VS) --- Underlying rhythm: [id number] Arrhythmic events (AE) No new arrhythmic events in monitoring period Anticoagulation (AC) Patient prescribed Apixaban (Eliquis) Patient on anticoagulant therapy us Shala Oliva NP [facility] CARDIAC SERVICES PROCEDUR ES Final Result * CS GLUCOSE (01/05/2025 10:33 AM CDT) Glucose 92 70 - 199 mg/dL [facility] Comment: Interpretive Data Fasting glucose >/= [...] classification and Diagnosis of Diabetes Diabetes Care 2021; 46: S19-S40. Current interpretive data was last revised 2022. Testing performed by: [facility], 1 [facility] [place]., [address] Blood 01/05/2025 10:3 3 AM CDT 01/05/2025 2:29 PM CDT us Notinfile Unknown LAB BLOOD ORDERABLES Final Res ult Performing Organization Address City/[facility] Co de Phone Number [facility] Department [place] [address] * (ABNORMAL) eGFR (01/05/2025 10:33 AM CDT) eGFR 59(L) >=60 mL/min/1. 73 m2 [facility] Comment: Interpretive Data Reference Interval Normal >/= [...] Current interpretive data was last reviewed 2021. Testing performed by: [facility], 1 [facility], [place]., [address] Blood 01/05/2025 10:3 3 AM CDT 01/05/2025 2:46 PM CDT us Notinfile Unknown LAB BLOOD ORDERABLES Final Res ult Performing Organization Address [facility]/ZIP Co de Phone Number [facility] Department [place] [address] * (ABNORMAL) Differential, auto (01/05/2025 10:33 AM CDT) Neutrophil abs 4.51 1.50 - 6.50 K/cumm [facility] Comment:Testing performed by : [facility], [address] [place]., [address] Imm gran abs 0.03 0.00 - 0.10 K/cumm [facility] Comment:Testing performed by : [facility], [address] [place]., [address] Lymphocyte abs 1.13 0.80 - 3.30 K/cumm [facility] Comment:Testing performed by : [facility], [address] [place]., [address] Monocyte abs 0.60 0.20 - 0.80 K/cumm [facility] Comment:Testing performed by : [facility], [address] [place]., [address] Eosinophil abs 0.53(H) 0.00 - 0.50 K/cumm [facility] Comment:Testing performed by : [facility], [address] [place]., [address] Basophil abs 0.08 0.00 - 0.10 K/cumm [facility] Comment:Testing performed by : [facility], [address] [place]., [address] Neutrophil pct 65.6 % [facility] Comment: Interpretive Data Percent cell count reference ranges are not reported, since discordance with absolute values may lead to misinterpretation of CBC data. Current Interpretive Data was last revised on 2017. Testing performed by: [facility], [address] [place]., [address] Imm gran pct 0.4 % [facility] Comment: Interpretive Data Percent cell count reference ranges are not reported, since discordance with absolute values may lead to misinterpretation of CBC data. Current Interpretive Data was last revised on 2017. Testing performed by: [facility], 1 [facility], [address] Lymphocyte pct 16.4 % [facility] Comment: Interpretive Data Percent cell count reference ranges are not reported, since discordance with absolute values may lead to misinterpretation of CBC data. Current Interpretive Data was last revised on 2017. Testing performed by: [facility], [address] [place]., [address] Monocyte pct 8.7 % [facility] Comment: Interpretive Data Percent cell count reference ranges are not reported, since discordance with absolute values may lead to misinterpretation of CBC data. Current Interpretive Data was last revised on 2017. Testing performed by: [facility], [address] [place]., [address] Eosinophil pct 7.7 % [facility] Comment: Interpretive Data Percent cell count reference ranges are not reported, since discordance with absolute values may lead to misinterpretation of CBC data. Current Interpretive Data was last revised on 2017. Testing performed by: [facility], [address] [place]., [address] Basophil pct 1.2 % [facility] Comment: Interpretive Data Percent cell count reference ranges are not reported, since discordance with absolute values may lead to misinterpretation of CBC data. Current Interpretive Data was last revised on 2017. Testing performed by: [facility], [address] [place] [address] Blood 01/05/2025 10:3 3 AM CDT 01/05/2025 2:29 PM CDT us Notinfile Unknown LAB BLOOD ORDERABLES Final Res ult ALEX [facility] Department [place] [address] * (ABNORMAL) Comprehensive metabolic panel, without glucose (Outreach) (01/05/2025 10:33 AM CDT) Sodium 142 135 - 145 mmol/L ALEX MCKEON Comment:Testing performed by : [facility], [address] [place]., [address] Potassium, pl 4.2 3.3 - 4.9 mmol/L CERNER BJ Comment:Testing performed by : [facility], [address] [facility], [address] Chloride 105 97 - 110 mmol/L CERNER BJ Comment:Testing performed by : [facility], [address] [facility], [address] CO2 27 22 - 32 mmol/L CERNER BJ Comment:Testing performed by : [facility], 1 [facility], [address] Anion gap 10 2 - 15 mmol/L CERNER BJ Comment:Testing performed by : [facility], 1 [facility], [address] BUN 19 6 - 25 mg/dL CERNER BJ Comment:Testing performed by : [facility], 1 [facility], [address] Creatinine 1.07 0.60 - 1.10 mg/dL CERNER BJ Comment:Testing performed by : [facility], 1 [facility], [address] Calcium 9.4 8.5 - 10.3 mg/dL CERNER BJ Comment:Testing performed by : [facility], 1 [facility], [address] Protein, pl 6.3(L) 6.5 - 8.5 g/dL CERNER BJ Comment:Testing performed by : [facility], 1 [facility], [address] Albumin 4.0 3.5 - 5.0 g/dL CERNER BJ Comment:Testing performed by : [facility], 1 [facility], [address] Bilirubin, total 0.5 0.1 - 1.2 mg/dL CERNER BJ Comment:Testing performed by : [facility], 1 [facility], [address] Alk phos 95 40 - 130 Units/L CERNER [facility] Comment:Testing performed by : [facility], 1 [facility], [address] AST 29 10 - 45 Units/L [facility]LEX [facility] Comment:Testing performed by : [facility], 1 [facility], [address] ALT 50(H) 7 - 45 Units/L [facility]LEX [facility] Comment:Testing performed by : [facility], 1 [facility], [address] Blood 01/05/2025 10:3 3 AM CDT 01/05/2025 2:29 PM CDT us Notinfile Unknown LAB BLOOD ORDERABLES Final Res [facility] Department [place] [address] * (ABNORMAL) CBC with auto differential (01/05/2025 10:33 AM CDT) WBC 6.88 3.80 - 9.90 K/cumm [facility]LEX [facility] Comment:Testing performed by : [facility], 1 [facility], [address] Hgb 8.8(L) 11.9 - 15.5 g/dL [facility]LEX [facility] Comment:Testing performed by : [facility], 1 [facility], [address] Hct 28.6(L) 35.6 - 45.5 % [facility]LEX [facility] Comment:Testing performed by : [facility], 1 [facility], [address] Plt 208 150 - 400 K/cumm [facility] Comment:Testing performed by : [facility], 1 [facility], [address] MPV 9.4 9.1 - 12.3 fL [facility]LEX [facility] Comment:Testing performed by : [facility], [address] [place] [address] RBC 3.22(L) 3.90 - 5.20 M/cumm [facility] Comment:Testing performed by : [facility], 1 [facility], [address] MCV 88.8 81.3 - 96.4 fL [facility] Comment:Testing performed by : [facility], 1 [facility], [address] MCH 27.3 27.1 - 33.3 pg [facility] Comment:Testing performed by : [facility], 1 [facility], [address] MCHC 30.8(L) 32.3 - 35.7 g/dL [facility] Comment:Testing performed by : [facility], 1 [facility], [address] RDW CV 14.7 11.1 - 14.9 % [facility] Comment:Testing performed by : [facility], 1 [facility], [address] RDW SD 47.3 35.7 - 48.1 fL [facility] Comment:Testing performed by : [facility], 1 [facility], [address] NRBC abs 0.00 0.00 - 0.01 K/cumm [facility] Comment:Testing performed by : [facility], 1 [facility], [address] Blood 01/05/2025 10:3 3 AM CDT 01/05/2025 2:29 PM CDT us Notinfile Unknown LAB BLOOD ORDERABLES Final Res ult [facility] Department [place] [address] * Vitamin D 25 hydroxy (01/05/2025 10:33 AM CDT) Vitamin D 25-OH 41 30 - 80 ng/mL [facility]LEX [facility] Comment:Testing performed by : [facility], [address] [place]., [address] Blood 01/05/2025 10:3 3 AM CDT 01/05/2025 2:29 PM CDT us Notinfile Unknown LAB BLOOD ORDERABLES Final Res ult [facility] Department [place] [address] * XR Chest Pa Lateral 2 Views (01/01/2025 3:59 PM CDT) Anatomical Region Laterality Modality Body, Chest N/A Computed Radiogr aphy 01/01/2025 4:13 PM CDT Impressions 01/01/2025 4:36 PM CDT The current study is compared with the prior radiograph dated 12/31/2024. A left internal jugular catheter is in place, tip overlies the superior vena cava. Sternal plates. Right approach pacemaker with leads in the right atrium and right ventricle. There is mild bibasilar atelectasis. Small left pleural effusion. No pneumothorax. The heart size is stable. Dictated by: Todd Anglin MD The radiology attending physician has personally reviewed this study, and had reviewed and/or edited this written report and agrees with it. Electronically signed by: Jv Eid M.D. Narrative 01/01/2025 4:36 PM CDT EXAMINATION: 2 view chest radiograph Procedure Note Jv Eid MD - 01/01/2025 EXAMINATION: 2 view chest radiograph IMPRESSION: The current study is compared with the prior radiograph dated 12/31/2024. A left internal jugular catheter is in place, tip overlies the superior vena cava. Sternal plates. Right approach pacemaker with leads in the right atrium and right ventricle. There is mild bibasilar atelectasis. Small left pleural effusion. No pneumothorax. The heart size is stable. Dictated by: Todd Anglin MD The radiology attending physician has personally reviewed this study, and had reviewed and/or edited this written report and agrees with it. Electronically signed by: Jv Eid M.D. us Shola Cha MD IMG XR PROCEDURE S Final Result * eGFR (12/31/2024 10:26 PM CDT) eGFR 64 >=60 mL/min/1. 73 m2 Comment: Interpretive Data [...] interpretive data was last reviewed 2021. Blood 12/31/2024 10:2 6 PM CDT 12/31/2024 10:43 PM CDT us Xena Bai NP LAB BLOOD ORDERABLES Final Result [facility] Department [place] [address] * (ABNORMAL) CBC without differential (12/31/2024 10:26 PM CDT) WBC 9.64 3.80 - 9.90 K/cumm Hgb 8.4(L) 11.9 - 15.5 g/dL [facility] Hct 27.0(L) 35.6 - 45.5 % [facility] Plt 211 150 - 400 K/cumm [facility] MPV 9.1 9.1 - 12.3 fL [facility] RBC 2.97(L) 3.90 - 5.20 M/cumm [facility] MCV 90.9 81.3 - 96.4 fL [facility] MCH 28.3 27.1 - 33.3 pg [facility] MCHC 31.1(L) 32.3 - 35.7 g/dL [facility] RDW CV 15.0(H) 11.1 - 14.9 % [facility] RDW SD 49.3(H) 35.7 - 48.1 fL [facility] NRBC abs 0.00 0.00 - 0.01 K/cumm [facility] Blood 12/31/2024 10:2 6 PM CDT 12/31/2024 10:44 PM CDT Xena Bai EXPORT SALES ASSISTANT LAB BLOOD ORDERABLES Final Result [facility] Department [place] [address] * (ABNORMAL) Comprehensive metabolic panel (12/31/2024 10:26 PM CDT) Sodium 141 135 - 145 mmol/L Potassium, pl 4.4 3.3 - 4.9 mmol/L [facility] Chloride 109 97 - 110 mmol/L [facility] CO2 25 22 - 32 mmol/L [facility] Anion gap 7 2 - 15 mmol/L [facility] BUN 15 6 - 25 mg/dL [facility] Creatinine 1.00 0.60 - 1.10 mg/dL [facility] Glucose 109 70 - 199 mg/dL [facility] Comment: Interpretive Data Fasting glucose >/= 126 [...] classification and Diagnosis of Diabetes Diabetes Care 2021; 46: S19-S40. Current interpretive data was last revised 2022. Calcium 8.6 8.5 - 10.3 mg/dL CERNER BJ Bilirubin, total 0.5 0.1 - 1.2 mg/dL CERNER BJ Protein, pl 6.2(L) 6.5 - 8.5 g/dL CERNER BJ Albumin 3.7 3.5 - 5.0 g/dL CERNER [facility] Alk phos 94 40 - 130 Units/L CERNER BJ ALT 70(H) 7 - 45 Units/L CERNER BJ AST 31 10 - 45 Units/L [facility] Blood 12/31/2024 10:2 6 PM CDT 12/31/2024 10:43 PM CDT Xena Bai EXPORT SALES ASSISTANT LAB BLOOD ORDERABLES Final Result [facility] Department [place] [address] * X-ray chest 1 view (12/31/2024 4:59 PM CDT) Anatomical Region Laterality Modality Body, Chest N/A Digital Radiogra phy 01/01/2025 8:26 AM CDT Impressions 01/01/2025 9:30 AM CDT The current study is compared with the prior radiograph dated 12/26/2024. A left internal jugular catheter is in place, tip overlies the superior vena cava The patient is status post median sternotomy with sternal plates and aortic valve replacement. Right approach pacemaker with leads in the right atrium and right ventricle. There is minimal bibasilar atelectasis. No pleural effusion or pneumothorax. The heart and mediastinal contours are stable. Dictated by: Todd Anglin MD The radiology attending physician has personally reviewed this study, and had reviewed and/or edited this written report and agrees with it. Electronically signed by: Jv Eid M.D. Narrative 01/01/2025 9:30 AM CDT EXAMINATION: 1 view chest radiograph Procedure Note Jv Eid MD - 01/01/2025 EXAMINATION: 1 view chest radiograph IMPRESSION: The current study is compared with the prior radiograph dated 12/26/2024. A left internal jugular catheter is in place, tip overlies the superior vena cava The patient is status post median sternotomy with sternal plates and aortic valve replacement. Right approach pacemaker with leads in the right atrium and right ventricle. There is minimal bibasilar atelectasis. No pleural effusion or pneumothorax. The heart and mediastinal contours are stable. Dictated by: Todd Anglin MD The radiology attending physician has personally reviewed this study, and had reviewed and/or edited this written report and agrees with it. Electronically signed by: Jv Eid M.D. Shola Cha MD IMG XR PROCEDURE S Final Result * IMPLANT DUAL CHAMBER PPM SYSTEM W/ DUAL ELECTRODES (GEN AND LEADS, NEW OR REPLACE) (12/31/2024 4:25PM CDT) Anatomical Region Laterality Modality X-Ray Angiograph y Narrative 01/01/2025 7:15 AM CDT Patient Name: Adi Flowers Date of : 1960 Procedure Date: 12/31/2024 Name of procedure: 1. Placement of a dual-chamber pacemaker 2. Subclavian venography History: 64F w KOJO, gastric bypass, CAD, HFpEF, severe s/p AVR, root enlargement, CABG x1 VELA-LAD on 12/09. EP was consulted for complete heart block. She had intermittent high degree AV block after her procedure including 12/16 requiring emergent externalized pacemaker. Dual chamber pacemaker recommended for intermittent high degree AV block. Risks, benefits and alternatives discussed with her and her who agreed this was the best way to proceed. She has left sided central line overlying subclavicular space and left sided abnormal mammogram requiring further evaluation as outpatient. Right sided device elected. Methods: After informed consent was obtained, the patient was brought to the EP laboratory in a postabsorptive, nonsedated state. Peripheral IV access was established. Prophylactic antibiotics were administered prior to incision. Continuous ECG, blood pressure, and pulse oximetry were initiated. Cardioversion patch electrodes were placed on the patient's chest and back. A grounding patch was applied to the skin. Sedation was administered via MAC. In order to define the extrathoracic portion of the subclavian vein and exclude significant venous obstruction or anomalous anatomy, subclavian venography was performed prior to the procedure. Using the patient's right peripheral IV, contrast was injected and images were recorded. The right subclavian vein and SVC were found to be widely patent. The right chest was prepared and draped in a sterile fashion. Local anesthesia was injected in the subcutaneous tissue in the infraclavicular area. An incision was made medial to the deltopectoral groove. The subcutaneous tissue was dissected the level of the prepectoral fascia. A subcutaneous pocket was created. Under fluoroscopic guidance and with the assistance of the images from the venogram, 2 separate venipunctures were made using micropuncture and modified Seldinger technique. These were performed in the extrathoracic portion of the subclavian vein. They required a steep angle given the soft tissues in the way. Guidewires were passed and two peel-away sheaths were placed, and used to advance leads into the circulation. Using fluoroscopic guidance, the leads were positioned. The RV lead was advanced to the RV/outflow tract. Ventricular ectopy was recorded. Images were taken in MATSON and BENGALI views to ensure appropriate lead placement. The lead tip was subsequently positioned on the apical septum. Adequate sensing and pacing parameters were found, and no diaphragmatic stimulation was seen with high-output pacing. Next, the right atrial lead was positioned in the right atrial appendage. Adequate sensing and pacing parameters were found, and no diaphragmatic stimulation was seen with high-output pacing. Both sheaths were split, and the leads were secured to the fascia with Ethibond ties. The pocket was flushed with antibiotic solution and hemostasis was assured. Antimicrobial envelope was used. Floseal was applied. The generator was connected to the leads and placed inside the pocket. The wound was closed with 3 running layers of absorbable suture, and steripstrips were applied Following the procedure, the patient was taken to the recovery area in stable condition. A chest x-ray was obtained in the holding area. Lead parameters and device programming: - RA Lead (#[id number]): Sensing 1.2 mV, Pacing threshold 0.75 V at 0.4 ms, Imp 1026 Ohm - RV Lead (#[id number]): Sensing 7.0 mV, Pacing threshold 0.5 V at 0.4 ms, Imp 703 Ohm - Device: Re2you Qian Thomas DR [id number] MRI Surescan pacemaker (#[id number]), programmed AAI/DDD 60-130 Conclusions: 1. Successful placement of a dual-chamber pacemaker 2. Subclavian venography Recommendations: 1. Return to previous bed 2. Portable chest x-ray in recovery area. PA/lateral chest x-ray in the morning. 3. IV antibiotics while the patient is admitted. 4. Device interrogation in the morning. 5. Follow-up will be arranged in the [facility] 7-10 days post-discharge Shola Cha MD Clinical Cardiac Optometrist Owner Ronel Arellano NP CV ELECTROPHYSIOLOGY P ROCS Final Result * 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 (12/31/2024 12:52 PM CDT) Narrative Lloyd Dowd CRNA - 12/31/2024 12:52 PM CDT Lloyd Dowd CRNA 12/31/2024 12:52 PM Peripheral IV Catheter Patient location: OR Staff: Placed by: FURNITURE REPAIR TECHNICIAN: Kalie Madrigal CRNA Preprocedure prep: Prep solution: chlorhexadine PPE: gloves and provider hat/mask PIV line: Laterality: right Site: forearm Catheter size: 22 g Technique: anatomical landmarks and direct visualization Procedure details: good blood return and occlusive dressing applied Number of attempts: 1 Assessment: Events: patient tolerated procedure well with no complications David Canseco MD ANESTHESIA ORDERABLES Final Resu lt * (ABNORMAL) eGFR (12/30/2024 10:52 PM CDT) eGFR 59(L) >=60 mL/min/1. 73 m2 Comment: Interpretive Data [...] interpretive data was last reviewed 2021. Blood 12/30/2024 10:5 2 PM CDT 12/31/2024 12:07 AM CDT us Xena Bai NP LAB BLOOD ORDERABLES Final Result [facility] Department [place] [address] * (ABNORMAL) aPTT (12/30/2024 10:52 PM CDT) aPTT 70(H) 28 - 38 sec Comment: Interpretive Data Heparin therapeutic range: 66.0 - 100.0 seconds. Range based on correlation with therapeutic heparin activity range of 0.3 - 0.7 Units/mL. Current interpretive data was last revised on 2023. Blood 12/30/2024 10:5 2 PM CDT 12/31/2024 12:14 AM CDT Narrative [facility]LEX [facility] - 12/31/2024 12:24 AM CDT STAT PTT timing: - Draw 6 hours after heparin infusion initiation - Draw 6 hours after every dose change until 2 consecutive PTTs are therapeutic - Once 2 consecutive PTTs are therapeutic, obtain with daily labs until infusion is discontinued - - Restart every 6 hour lab draws and follow instructions accordingly if PTT is outside of therapeutic range Do not draw lab from IV line that is actively infusing heparin. Use the opposite arm. If arm with actively infusing heparin must be used, pause the infusion for at least 2 minutes, and draw specimen below the IV site. For patients with a central venous catheter (CVC), lab must be drawn peripherally (not from CVC). us See Shrestha EXPORT SALES ASSISTANT LAB BLOOD ORDERABLES Final Result Performing Organization Address City/[facility]/ZIP Co de Phone Number [facility] Department [place] [address] * (ABNORMAL) CBC without differential (12/30/2024 10:52 PM CDT) WBC 11.75(H) 3.80 - 9.90 K/cumm Hgb 8.8(L) 11.9 - 15.5 g/dL [facility] Hct 28.4(L) 35.6 - 45.5 % [facility] Plt 243 150 - 400 K/cumm [facility] MPV 9.3 9.1 - 12.3 fL [facility] RBC 3.08(L) 3.90 - 5.20 M/cumm [facility] MCV 92.2 81.3 - 96.4 fL [facility] MCH 28.6 27.1 - 33.3 pg [facility] MCHC 31.0(L) 32.3 - 35.7 g/dL [facility] RDW CV 15.0(H) 11.1 - 14.9 % [facility] RDW SD 49.7(H) 35.7 - 48.1 fL [facility] NRBC abs 0.00 0.00 - 0.01 K/cumm [facility] Blood 12/30/2024 10:5 2 PM CDT 12/31/2024 12:08 AM CDT us Xena Bai EXPORT SALES ASSISTANT LAB BLOOD ORDERABLES Final Result Performing Organization Address City/[facility]/ZIP Co de Phone Number [facility] Department [place] [address] * Type and screen (12/30/2024 10:52 PM CDT) [facility] ABO Rh B Negative Sarah, indirect Negative [facility] Blood 12/30/2024 10:5 2 PM CDT 12/31/2024 12:10 AM CDT Narrative [facility] - 12/31/2024 1:00 AM CDT Has the patient had Daratumumab or Isatuximab in the past 6 months?->Unknown Xena Bai NP LAB BLOOD BANK TEST ORDERA BLES Final Result [facility] Department [place] [address] * (ABNORMAL) Comprehensive metabolic panel (12/30/2024 10:52 PM CDT) [facility] Sodium 137 135 - 145 mmol/L Potassium, pl 4.4 3.3 - 4.9 mmol/L [facility] Chloride 103 97 - 110 mmol/L [facility] CO2 24 22 - 32 mmol/L [facility] Anion gap 10 2 - 15 mmol/L [facility] BUN 21 6 - 25 mg/dL [facility] Creatinine 1.06 0.60 - 1.10 mg/dL [facility] Glucose 118 70 - 199 mg/dL [facility] Comment: Interpretive Data Fasting glucose >/= 126 [...] classification and Diagnosis of Diabetes Diabetes Care 2021; 46: S19-S40. Current interpretive data was last revised 2022. Calcium 8.8 8.5 - 10.3 mg/dL [facility] Bilirubin, total 0.5 0.1 - 1.2 mg/dL [facility] Protein, pl 6.8 6.5 - 8.5 g/dL [facility] Albumin 4.0 3.5 - 5.0 g/dL [facility] Alk phos 114 40 - 130 Units/L [facility] ALT 80(H) 7 - 45 Units/L [facility] AST 37 10 - 45 Units/L [facility] Blood 12/30/2024 10:5 2 PM CDT 12/31/2024 12:07 AM CDT Xena Bai NP LAB BLOOD ORDERABLES Final Result [facility] Department [place] [address] * (ABNORMAL) aPTT (12/30/2024 5:13 PM CDT) aPTT 67(H) 28 - 38 sec Comment: Interpretive Data Heparin therapeutic range: 66.0 - 100.0 seconds. Range based on correlation with therapeutic heparin activity range of 0.3 - 0.7 Units/mL. Current interpretive data was last revised on 2023. Blood 12/30/2024 5:13 PM CDT 12/30/2024 5:31 PM CDT Narrative [facility] - 12/30/2024 5:41 PM CDT STAT PTT timing: - Draw 6 hours after heparin infusion initiation - Draw 6 hours after every dose change until 2 consecutive PTTs are therapeutic - Once 2 consecutive PTTs are therapeutic, obtain with daily labs until infusion is discontinued - - Restart every 6 hour lab draws and follow instructions accordingly if PTT is outside of therapeutic range Do not draw lab from IV line that is actively infusing heparin. Use the opposite arm. If arm with actively infusing heparin must be used, pause the infusion for at least 2 minutes, and draw specimen below the IV site. For patients with a central venous catheter (CVC), lab must be drawn peripherally (not from CVC). See Shrestha EXPORT SALES ASSISTANT LAB BLOOD ORDERABLES Final Result Performing Organization Address [facility] Co de Phone Number [facility] [place] [address] * eGFR (12/30/2024 10:54 AM CDT) eGFR 67 >=60 mL/min/1. 73 m2 Comment: Interpretive Data [...] interpretive data was last reviewed 2021. Blood 12/30/2024 10:5 4 AM CDT 12/30/2024 11:18 AM CDT Xena Bai EXPORT SALES ASSISTANT LAB BLOOD ORDERABLES Final Result Performing Organization Address [facility] Co de Phone Number ALEX [facility] Department [place] [address] * (ABNORMAL) aPTT (12/30/2024 10:54 AM CDT) aPTT 27(L) 28 - 38 sec Comment: Interpretive Data Heparin therapeutic range: 66.0 - 100.0 seconds. Range based on correlation with therapeutic heparin activity range of 0.3 - 0.7 Units/mL. Current interpretive data was last revised on 2023. Blood 12/30/2024 10:5 4 AM CDT 12/30/2024 11:17 AM CDT Narrative [facility] - 12/30/2024 11:48 AM CDT Baseline prior to heparin initiation See Shrestha NP LAB BLOOD ORDERABLES Final Result Performing Organization Address [facility] [place] [address] * (ABNORMAL) Protime-INR (12/30/2024 10:54 AM CDT) Pathologist [facility] PT 14.1(H) 9.7 - 13.0 sec INR 1.30(H) 0.90 - 1.20 [facility] Comment: Interpretive data Oral anticoagulant therapeutic ranges: Venous thromboembolism prophylaxis or treatment: 2.0-3.0 CARDIOLOGY Standard range: 2.0-3.0 High-intensity range: 2.5-3.5 Refer to indication-specific guidelines for appropriate target ranges for prosthetic heart valve replacement. Current interpretive data was last revised on 2019. Blood 12/30/2024 10:5 4 AM CDT 12/30/2024 11:17 AM CDT Narrative [facility] - 12/30/2024 11:48 AM CDT Baseline prior to heparin initiation See Shrestha NP LAB BLOOD ORDERABLES Final Result Performing Organization Address [facility] [place] [address] * (ABNORMAL) CBC without differential (12/30/2024 10:54 AM CDT) WBC 9.63 3.80 - 9.90 K/cumm Hgb 8.4(L) 11.9 - 15.5 g/dL [facility] Hct 27.2(L) 35.6 - 45.5 % [facility] Plt 284 150 - 400 K/cumm [facility] MPV 9.1 9.1 - 12.3 fL [facility] RBC 2.96(L) 3.90 - 5.20 M/cumm [facility] MCV 91.9 81.3 - 96.4 fL [facility] MCH 28.4 27.1 - 33.3 pg [facility] MCHC 30.9(L) 32.3 - 35.7 g/dL [facility] RDW CV 15.3(H) 11.1 - 14.9 % [facility] RDW SD 51.1(H) 35.7 - 48.1 fL [facility] NRBC abs 0.00 0.00 - 0.01 K/cumm [facility] Blood 12/30/2024 10:5 4 AM CDT 12/30/2024 11:18 AM CDT Narrative [facility] - 12/30/2024 11:28 AM CDT Baseline prior to heparin initiation See Shrestha NP LAB BLOOD ORDERABLES Final Result [facility] Department [place] [address] * (ABNORMAL) Comprehensive metabolic panel (12/30/2024 10:54 AM CDT) Sodium 139 135 - 145 mmol/L Potassium, pl 4.5 3.3 - 4.9 mmol/L [facility] Chloride 104 97 - 110 mmol/L [facility] CO2 26 22 - 32 mmol/L [facility] Anion gap 9 2 - 15 mmol/L [facility] BUN 19 6 - 25 mg/dL [facility] Creatinine 0.96 0.60 - 1.10 mg/dL [facility] Glucose 98 70 - 199 mg/dL [facility] Comment: Interpretive Data Fasting glucose >/= 126 [...] classification and Diagnosis of Diabetes Diabetes Care 2021; 46: S19-S40. Current interpretive data was last revised 2022. Calcium 9.0 8.5 - 10.3 mg/dL [facility] Bilirubin, total 0.6 0.1 - 1.2 mg/dL [facility] Protein, pl 6.4(L) 6.5 - 8.5 g/dL [facility] Albumin 3.9 3.5 - 5.0 g/dL [facility] Alk phos 112 40 - 130 Units/L [facility] ALT 92(H) 7 - 45 Units/L [facility] AST 36 10 - 45 Units/L [facility] Blood 12/30/2024 10:5 4 AM CDT 12/30/2024 11:18 AM CDT us Xena Bai EXPORT SALES ASSISTANT LAB BLOOD ORDERABLES Final Result Performing Organization Address City/State/[facility] Co de Phone Number [facility] Department [place] [address] * IR Central Line Placement > 5 Years (12/30/2024 9:49 AM CDT) Anatomical Region Laterality Modality Body N/A X-Ray Angiograph y 12/30/2024 3:38 PM CDT Impressions 12/30/2024 8:50 PM CDT Successful nontunneled catheter placement. PLAN: The catheter is ready for immediate use. When treatment is completed, this catheter can be removed at the bedside according to standard hospital protocol. Dictated by: Ruth Ann Castellon M.D. The radiology attending physician has personally reviewed this study, and had reviewed and/or edited this written report and agrees with it. Electronically signed by: Stevie So M.D. Narrative 12/30/2024 8:50 PM CDT EXAMINATION: IR CENTRAL LINE PLACEMENT > 5 YEARS HISTORY: 64-year-old woman with a difficult IV access presents to IR for central venous catheter placement. ATTENDING PRESENCE: Stevie So M.D., the attending radiologist was present from the beginning to the end of the procedure. SEDATION: The patient did not require conscious sedation for the procedure. TECHNIQUE: The risks, benefits and alternatives were discussed and informed consent was obtained. Prior to beginning the procedure, [place] Protocol was used to confirm the patient's identity and planned procedure. Fluoroscopy time has been recorded in the electronic medical record. Maximum sterile barriers including cap, mask, hand hygiene, sterile gloves, sterile gown, large sterile drape and 2% chlorhexidine for cutaneous antisepsis were used. The skin over the left internal jugular vein was sterilely prepped, draped and infiltrated with 1% buffered lidocaine. Prior to the procedure, the target vessel was evaluated by ultrasound, an image of the patent vessel recorded, and this image placed in the patient's chart. After sterile prep, this vessel was accessed using realtime ultrasound guidance. A guidewire and catheter were then passed centrally using fluoroscopic guidance. The intravascular length from the access site to the right atrium was assessed. After dilating the tract, a dual lumen angeline trimmed to the appropriate intravascular length was inserted over the guidewire. The catheter was flushed with 100U/ml heparin and secured in place. A sterile dressing was applied. ESTIMATED BLOOD LOSS: Minimal. CONDITION: Stable DISCHARGED TO: patient care division. FINDINGS: The final fluoroscopic image demonstrates the catheter with its tip in the right atrium. No complications are seen. Procedure Note Stevie So MD - 12/30/2024 EXAMINATION: IR CENTRAL LINE PLACEMENT > 5 YEARS HISTORY: 64-year-old woman with a difficult IV access presents to IR for central venous catheter placement. ATTENDING PRESENCE: Stevie So M.D., the attending radiologist was present from the beginning to the end of the procedure. SEDATION: The patient did not require conscious sedation for the procedure. TECHNIQUE: The risks, benefits and alternatives were discussed and informed consent was obtained. Prior to beginning the procedure, [place] Protocol was used to confirm the patient's identity and planned procedure. Fluoroscopy time has been recorded in the electronic medical record. Maximum sterile barriers including cap, mask, hand hygiene, sterile gloves, sterile gown, large sterile drape and 2% chlorhexidine for cutaneous antisepsis were used. The skin over the left internal jugular vein was sterilely prepped, draped and infiltrated with 1% buffered lidocaine. Prior to the procedure, the target vessel was evaluated by ultrasound, an image of the patent vessel recorded, and this image placed in the patient's chart. After sterile prep, this vessel was accessed using realtime ultrasound guidance. A guidewire and catheter were then passed centrally using fluoroscopic guidance. The intravascular length from the access site to the right atrium was assessed. After dilating the tract, a dual lumen angeline trimmed to the appropriate intravascular length was inserted over the guidewire. The catheter was flushed with 100U/ml heparin and secured in place. A sterile dressing was applied. ESTIMATED BLOOD LOSS: Minimal. CONDITION: Stable DISCHARGED TO: patient care division. FINDINGS: The final fluoroscopic image demonstrates the catheter with its tip in the right atrium. No complications are seen. IMPRESSION: Successful nontunneled catheter placement. PLAN: The catheter is ready for immediate use. When treatment is completed, this catheter can be removed at the bedside according to standard hospital protocol. Dictated by: Ruth Ann Castellon M.D. The radiology attending physician has personally reviewed this study, and had reviewed and/or edited this written report and agrees with it. Electronically signed by: Stevie So M.D. us See Shrestha EXPORT SALES ASSISTANT IMG IR PROCEDURES Final Re sult * (ABNORMAL) eGFR (12/28/2024 8:30 PM CDT) eGFR 57(L) >=60 mL/min/1. 73 m2 Comment: Interpretive Data [...] interpretive data was last reviewed 2021. Blood 12/28/2024 8:30 PM CDT 12/28/2024 10:10 PM CDT Xena Bai EXPORT SALES ASSISTANT LAB BLOOD ORDERABLES Final Result Performing Organization Address [facility]/ZIP Co de Phone Number [facility] [place] [address] * (ABNORMAL) CBC without differential (12/28/2024 8:30 PM CDT) WBC 11.82(H) 3.80 - 9.90 K/cumm Hgb 9.0(L) 11.9 - 15.5 g/dL [facility] Hct 28.7(L) 35.6 - 45.5 % [facility] Plt 299 150 - 400 K/cumm [facility] MPV 9.4 9.1 - 12.3 fL [facility] RBC 3.07(L) 3.90 - 5.20 M/cumm [facility] MCV 93.5 81.3 - 96.4 fL [facility] MCH 29.3 27.1 - 33.3 pg [facility] MCHC 31.4(L) 32.3 - 35.7 g/dL [facility] RDW CV 15.5(H) 11.1 - 14.9 % [facility] RDW SD 52.2(H) 35.7 - 48.1 fL [facility] NRBC abs 0.00 0.00 - 0.01 K/cumm [facility] Blood 12/28/2024 8:30 PM CDT 12/28/2024 10:10 PM CDT Xena Bai EXPORT SALES ASSISTANT LAB BLOOD ORDERABLES Final Result Performing Organization Address [facility]/ZIP Co de Phone Number [facility] [place] [address] * (ABNORMAL) Comprehensive metabolic panel (12/28/2024 8:30 PM CDT) Sodium 140 135 - 145 mmol/L Potassium, pl 4.5 3.3 - 4.9 mmol/L [facility] Chloride 105 97 - 110 mmol/L [facility] CO2 25 22 - 32 mmol/L [facility] Anion gap 10 2 - 15 mmol/L [facility] BUN 24 6 - 25 mg/dL [facility] Creatinine 1.09 0.60 - 1.10 mg/dL [facility] Glucose 99 70 - 199 mg/dL [facility] Comment: Interpretive Data Fasting glucose >/= 126 [...] classification and Diagnosis of Diabetes Diabetes Care 2021; 46: S19-S40. Current interpretive data was last revised 2022. Calcium 9.1 8.5 - 10.3 mg/dL [facility] Bilirubin, total 0.5 0.1 - 1.2 mg/dL [facility] Protein, pl 6.5 6.5 - 8.5 g/dL [facility] Albumin 3.9 3.5 - 5.0 g/dL [facility] Alk phos 130 40 - 130 Units/L [facility] ALT 130(H) 7 - 45 Units/L [facility] AST 56(H) 10 - 45 Units/L [facility] Blood 12/28/2024 8:30 PM CDT 12/28/2024 10:10 PM CDT us Xena Bai NP LAB BLOOD ORDERABLES Final Result [facility] Department [place] [address] * (ABNORMAL) eGFR (12/27/2024 8:34 PM CDT) [facility] eGFR 55(L) >=60 mL/min/1. 73 m2 Comment: Interpretive Data [...] interpretive data was last reviewed 2021. Blood 12/27/2024 8:34 PM CDT 12/27/2024 9:37 PM CDT us Xena Bai NP LAB BLOOD ORDERABLES Final Result [facility] Department [place] [address] * (ABNORMAL) CBC without differential (12/27/2024 8:34 PM CDT) [facility] WBC 11.68(H) 3.80 - 9.90 K/cumm Hgb 9.0(L) 11.9 - 15.5 g/dL [facility] Hct 29.4(L) 35.6 - 45.5 % [facility] Plt 287 150 - 400 K/cumm [facility] MPV 9.5 9.1 - 12.3 fL [facility] RBC 3.11(L) 3.90 - 5.20 M/cumm [facility] MCV 94.5 81.3 - 96.4 fL [facility] MCH 28.9 27.1 - 33.3 pg [facility] MCHC 30.6(L) 32.3 - 35.7 g/dL [facility] RDW CV 15.9(H) 11.1 - 14.9 % [facility] RDW SD 54.4(H) 35.7 - 48.1 fL [facility] NRBC abs 0.00 0.00 - 0.01 K/cumm [facility] Blood 12/27/2024 8:34 PM CDT 12/27/2024 9:38 PM CDT Xena Bai EXPORT SALES ASSISTANT LAB BLOOD ORDERABLES Final Result [facility] Department [place] [address] * Type and screen (12/27/2024 8:34 PM CDT) [facility] Sarah, indirect Negative ABO Rh B Negative [facility] Blood 12/27/2024 8:34 PM CDT 12/27/2024 9:42 PM CDT Narrative [facility] - 12/27/2024 10:58 PM CDT Has the patient had Daratumumab or Isatuximab in the past 6 months?->Unknown Xena Bai EXPORT SALES ASSISTANT LAB BLOOD BANK TEST ORDERA BLES Final Result [facility] Department [place] [address] * (ABNORMAL) Comprehensive metabolic panel (12/27/2024 8:34 PM CDT) [facility] Sodium 139 135 - 145 mmol/L Potassium, pl 4.1 3.3 - 4.9 mmol/L [facility] Chloride 103 97 - 110 mmol/L [facility] CO2 24 22 - 32 mmol/L [facility] Anion gap 12 2 - 15 mmol/L [facility] BUN 24 6 - 25 mg/dL [facility] Creatinine 1.13(H) 0.60 - 1.10 mg/dL [facility] Glucose 115 70 - 199 mg/dL [facility] Comment: Interpretive Data Fasting glucose >/= 126 [...] interpretive data was last revised 2022. Calcium 8.7 8.5 - 10.3 mg/dL [facility] Bilirubin, total 0.6 0.1 - 1.2 mg/dL [facility] Protein, pl 6.5 6.5 - 8.5 g/dL [facility] Albumin 3.9 3.5 - 5.0 g/dL [facility] Alk phos 95 40 - 130 Units/L [facility] ALT 136(H) 7 - 45 Units/L [facility] AST 42 10 - 45 Units/L [facility] Blood 12/27/2024 8:34 PM CDT 12/27/2024 9:37 PM CDT us Xena Bai NP LAB BLOOD ORDERABLES Final Result [facility] Department [place] [address] * eGFR (12/26/2024 1:25 PM CDT) eGFR 63 >=60 mL/min/1. 73 m2 Comment: Interpretive Data [...] interpretive data was last reviewed 2021. Blood 12/26/2024 1:25 PM CDT 12/26/2024 2:28 PM CDT Xena Bai NP LAB BLOOD ORDERABLES Final Result [facility] Department [place] [address] * Blood culture Blood (12/26/2024 1:25 PM CDT) Report Final Report: No growth Blood 12/26/2024 1:25 PM CDT 12/26/2024 3:03 PM CDT Narrative [facility] - 12/30/2024 4:00 PM CDT Collection->Peripheral 1. Blood cultures are incubated for 4 days on a continuously monitored blood culture system. The first report of a negative culture is issued within 24 hours of receipt of the specimen in the laboratory. 2. Positive culture results are reported as soon as they are detected. 3. The most important factor for detection of microbes in the setting of bloodstream infection is the volume of blood submitted for culture. Failure to collect an optimal blood volume can result in false negative blood cultures. 4. For pediatric patients, the recommended blood volume to collect follows a weight based strategy. See the electronic test catalog for collection instructions. 5. For positive blood cultures, a rapid molecular test may be performed for organism identification using the shirin ePlex blood culture identification panel for gram positive (BCID-GP) and gram negative (BCID-GN) organisms. This nucleic acid amplification test detects microbial DNA in positive blood culture broth. This assay has been cleared by the [place] Food and Drug Administration and its performance characteristics have been verified by the [facility] Microbiology Laboratory. For questions about this culture, contact the Microbiology Laboratory at [phone]. Interpretive data was last revised on 24. See Shrestha EXPORT SALES ASSISTANT LAB MICROBIOLOGY - GENERAL ORDERABLES Final Result Performing Organization Address [facility]/ZIP Co de Phone Number [facility] Department [place] [address] * (ABNORMAL) CBC without differential (12/26/2024 1:25 PM CDT) [facility] WBC 12.65(H) 3.80 - 9.90 K/cumm Hgb 9.0(L) 11.9 - 15.5 g/dL [facility] Hct 28.9(L) 35.6 - 45.5 % [facility] Plt 306 150 - 400 K/cumm [facility] MPV 9.6 9.1 - 12.3 fL [facility] RBC 3.11(L) 3.90 - 5.20 M/cumm [facility] MCV 92.9 81.3 - 96.4 fL [facility] MCH 28.9 27.1 - 33.3 pg [facility] MCHC 31.1(L) 32.3 - 35.7 g/dL [facility] RDW CV 15.9(H) 11.1 - 14.9 % [facility] RDW SD 51.8(H) 35.7 - 48.1 fL [facility] NRBC abs 0.00 0.00 - 0.01 K/cumm [facility] Blood 12/26/2024 1:25 PM CDT 12/26/2024 2:28 PM CDT Xena Bai EXPORT SALES ASSISTANT LAB BLOOD ORDERABLES Final Result Performing Organization Address [facility]/ZIP Co de Phone Number [facility] Department [place] [address] * (ABNORMAL) CBC without differential (12/26/2024 1:25 PM CDT) WBC 12.21(H) 3.80 - 9.90 K/cumm Hgb 9.0(L) 11.9 - 15.5 g/dL [facility] Hct 28.5(L) 35.6 - 45.5 % [facility] Plt 307 150 - 400 K/cumm [facility] MPV 9.5 9.1 - 12.3 fL [facility] RBC 3.07(L) 3.90 - 5.20 M/cumm [facility] MCV 92.8 81.3 - 96.4 fL [facility] MCH 29.3 27.1 - 33.3 pg [facility] MCHC 31.6(L) 32.3 - 35.7 g/dL [facility] RDW CV 15.9(H) 11.1 - 14.9 % [facility] RDW SD 52.4(H) 35.7 - 48.1 fL [facility] NRBC abs 0.00 0.00 - 0.01 K/cumm [facility] Blood 12/26/2024 1:25 PM CDT 12/26/2024 2:28 PM CDT us Kika Simpson DNP LAB BLOOD ORDERABLES Fi nal Result Performing Organization Address [facility] Co de Phone Number [facility] Department [place] [address] * Type and screen (12/26/2024 1:25 PM CDT) Sarah, indirect Negative ABO Rh B Negative [facility] Blood 12/26/2024 1:25 PM CDT 12/26/2024 2:26 PM CDT Narrative [facility] - 12/26/2024 3:25 PM CDT Has the patient had Daratumumab or Isatuximab in the past 6 months?->Unknown Xena Bai EXPORT SALES ASSISTANT LAB BLOOD BANK TEST ORDERA BLES Final Result Performing Organization Address [facility]/ZIP Co de Phone Number [facility] Department [place] [address] * (ABNORMAL) Comprehensive metabolic panel (12/26/2024 1:25 PM CDT) Sodium 139 135 - 145 mmol/L Potassium, pl 3.7 3.3 - 4.9 mmol/L [facility] Chloride 102 97 - 110 mmol/L [facility] CO2 25 22 - 32 mmol/L [facility] Anion gap 12 2 - 15 mmol/L [facility] BUN 23 6 - 25 mg/dL [facility] Creatinine 1.01 0.60 - 1.10 mg/dL [facility] Glucose 115 70 - 199 mg/dL [facility] Comment: Interpretive Data Fasting glucose >/= 126 [...] interpretive data was last revised 2022. Calcium 9.1 8.5 - 10.3 mg/dL [facility] Bilirubin, total 0.7 0.1 - 1.2 mg/dL [facility] Protein, pl 6.5 6.5 - 8.5 g/dL [facility] Albumin 3.7 3.5 - 5.0 g/dL [facility] Alk phos 93 40 - 130 Units/L [facility] ALT 169(H) 7 - 45 Units/L [facility] AST 50(H) 10 - 45 Units/L [facility] Blood 12/26/2024 1:25 PM CDT 12/26/2024 2:28 PM CDT Xena Bai NP LAB BLOOD ORDERABLES Final Result Performing Organization Address City/[facility]/ZIP Co de Phone Number [facility] Department [place] [address] * XR Chest 1 View (12/26/2024 5:21 AM CDT) Anatomical Region Laterality Modality Body, Chest N/A Digital Radiogra phy 12/26/2024 9:21 AM CDT Impressions 12/26/2024 10:31 AM CDT Comparison with 12/23/2024. Sternal plates. 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 Aortic valve replacement. Small lung volumes with mild bibasilar atelectasis. No definite pleural effusion. No pneumothorax. Stable enlarged cardiac silhouette. Dictated by: Kristina Diaz MD The radiology attending physician has personally reviewed this study, and had reviewed and/or edited this written report and agrees with it. Electronically signed by: Sharlene Claros M.D. Narrative 12/26/2024 10:31 AM CDT EXAMINATION: 1 view chest radiograph Procedure Note Sharlene Claros MD - 12/26/2024 EXAMINATION: 1 view chest radiograph IMPRESSION: Comparison with 12/23/2024. Sternal plates. 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 Aortic valve replacement. Small lung volumes with mild bibasilar atelectasis. No definite pleural effusion. No pneumothorax. Stable enlarged cardiac silhouette. Dictated by: Kristina Diaz MD The radiology attending physician has personally reviewed this study, and had reviewed and/or edited this written report and agrees with it. Electronically signed by: Sharlene Claros M.D. iKka Simpson [facility] IM XR PROCEDURES Final Result * XR Foot Right 2 Views (12/25/2024 9:20 PM CDT) Anatomical Region Laterality Modality Lower Extremities, Foot Right Computed Radiography 12/26/2024 6:11 AM CDT Impressions 12/26/2024 6:11 AM CDT 1. Moderate mid and forefoot soft tissue swelling. No displaced fracture. 2. Moderate midfoot osteoarthritis and large plantar calcaneal spur. Electronically signed by: Bernabe Lowry M.D. Narrative 12/26/2024 6:11 AM CDT XR FOOT RIGHT 2 VIEWS HISTORY: Right foot pain. FINDINGS: 2 views of the right foot are obtained and interpreted without comparison. There is no fracture. There is moderate midfoot osteoarthritis. Large plantar calcaneal spur and dorsal Achilles enthesophyte. There is moderate mid and forefoot soft tissue swelling. Heterotopic ossification is seen in the dorsal forefoot soft tissues. Procedure Note Bernabe Lowry MD - 12/26/2024 XR FOOT RIGHT 2 VIEWS HISTORY: Right foot pain. FINDINGS: 2 views of the right foot are obtained and interpreted without comparison. There is no fracture. There is moderate midfoot osteoarthritis. Large plantar calcaneal spur and dorsal Achilles enthesophyte. There is moderate mid and forefoot soft tissue swelling. Heterotopic ossification is seen in the dorsal forefoot soft tissues. IMPRESSION: 1. Moderate mid and forefoot soft tissue swelling. No displaced fracture. 2. Moderate midfoot osteoarthritis and large plantar calcaneal spur. Electronically signed by: Bernabe Lowry M.D. See Shrestha NP IMG XR PROCEDURES Final Re sult * [place] Modified Barium Swallow W Video (12/25/2024 3:27 PM CDT) Anatomical Region Laterality Modality Head and Neck N/A Computed Radiogr aphy 12/25/2024 4:26 PM CDT Impressions 12/25/2024 5:21 PM CDT The swallowing mechanism is abnormal; see above comments. Please refer to the Speech Pathology procedure note for safe swallow recommendations as well as additional information regarding the oral-pharyngeal swallow function, plan of care, and recommended follow up. Dictated by: Ignacio Jones M.D. The radiology attending physician has personally reviewed this study, and had reviewed and/or edited this written report and agrees with it. Electronically signed by: Boris Casas M.D., Ph.D Narrative 12/25/2024 5:21 PM CDT EXAMINATION: MODIFIED BARIUM SWALLOW HISTORY: Dysphagia. TECHNIQUE: This procedure was completed in conjunction with a Speech Language Pathologist. The patient was given barium of multiple different consistencies to swallow. Video fluoroscopy was employed during the exam. FINDINGS: Oral-pharyngeal swallow function is mildly impaired. Penetration: Yes There is penetration of thin liquids and nectar thick liquids. Penetration is not sensed. The penetrated material is inconsistently cleared. Aspiration: Yes There is aspiration of thin liquids and nectar thick liquids. Aspiration is inconsistently sensed. The aspirated material is inconsistently cleared. Residue:No Other comments: Osteophyte at C2-C3 appears to impact epiglottic inversion and osteophyte at C5-C6 appears to cause small volume esophageal retention. Procedure Note Boris Casas MD PhD - 12/25/2024 EXAMINATION: MODIFIED BARIUM SWALLOW HISTORY: Dysphagia. TECHNIQUE: This procedure was completed in conjunction with a Speech Language Pathologist. The patient was given barium of multiple different consistencies to swallow. Video fluoroscopy was employed during the exam. FINDINGS: Oral-pharyngeal swallow function is mildly impaired. Penetration: Yes There is penetration of thin liquids and nectar thick liquids. Penetration is not sensed. The penetrated material is inconsistently cleared. Aspiration: Yes There is aspiration of thin liquids and nectar thick liquids. Aspiration is inconsistently sensed. The aspirated material is inconsistently cleared. Residue:No Other comments: Osteophyte at C2-C3 appears to impact epiglottic inversion and osteophyte at C5-C6 appears to cause small volume esophageal retention. IMPRESSION: The swallowing mechanism is abnormal; see above comments. Please refer to the Speech Pathology procedure note for safe swallow recommendations as well as additional information regarding the oral-pharyngeal swallow function, plan of care, and recommended follow up. Dictated by: Ignacio Jones M.D. The radiology attending physician has personally reviewed this study, and had reviewed and/or edited this written report and agrees with it. Electronically signed by: Boris Casas M.D., Ph.D Kika Simpson [facility] IMG FLUOROSCOPY PROCEDU RES Final Result * NURSE STAFF Evaluate and Treat (VFSS) (12/25/2024 3:07 PM CDT) Narrative Misty Fields, NICO - 12/25/2024 3:07 PM CDT Misty Fields SLP 12/25/2024 5:26 PM Speech-Language Pathology: Videofluoroscopic Study of Swallow (VFSS/MBS) HPI/PMH *Update 12/19: intubated 12/15-12/17. Passed Delilah swallow screen 12/19 but later coughing w/liquid Regular diet, thin liquids per NURSE STAFF eval 12/13. Episodes of seizures since then. 12/15: Epi gtt DC'd, cEEG negative for seizures, PO lasix, asystole with disconnection of TVP -> pacing- then stopped and pt with intrinsic rate, dopamine, intubated. O/n: TVP not capture in CHB-->transcutaneous pace, hotn, Epi gtt, NE, Vaso, dopamine. EP to bedside to pace temp-perm pacer HPI/PMH: Pt is a 64 yo F admitted with CC of aortic stenosis s/p AVR, CABG x1. PMHx of KOJO, HTN, anxiety, hx of gastric bypass, HLD, CAD, GERD, anemia, chronic neck and back pain. While attempting to undergo knee replacement 2007, pt with heart murmur and has been completing echocardiograms annually to monitor aortic valve stenosis. Pt completed LHC with showed multivessel coronary disease. 12/09: s/p AVR, aortic root enlargement and CABG x1 Respiratory/Intubation Status: intubated 12/09-12/09, 12/15-12/17 Imaging: CXR 12/19: There is no pneumothorax.. Small effusions are present. Moderate severity pulmonary edema slightly worse than on the prior study. Precautions: Fall PLOF: none Current Diet Order: Regular/nectars Baseline Diet: regular/regular, per pt report General Information Adi Flowers 12/25/24 NURSE STAFF Received On: 12/25/24 General Observations: Pt seated upright in the chair and alert t/o evaluation. Pt readily followed commands, self-fed most trials, expressed distaste for barium but cooperative. Pt endorsed intermittent coughing with nectar thick liquids during meals, concerned about her ability to advance. Provided ed to pt in her room following the study, she asked thoughtful questions. Reason for Referral: c/f aspiration Pain Score: (none reported) If pain >4, was RN notified? N/A Patient Stated Goal/Comments: to drink regular liquids Clinical Impression & Professional Recommendations Diet Solids Recommendation: Regular Diet Liquids Recommendations: Thin/regular Recommended Form of Medications: Whole, With puree (to avoid large drinks or head tossed back) Compensatory Strategies/Modifications: Alternate solids and liquids, Small bites, Slow rate, SMALL SINGLE SIPS Postural Recommendations: Upright Assistance with feeding/swallowing: Setup only, Assist with aggressive oral hygiene prior to po Specialty Instructions: alert NURSE STAFF if pt frequently coughing with thin liquids Overall Clinical Impression/Additional Information: Mild oral-pharyngeal swallow dysfunction with motor and sensory deficits characterized by the following: Oral Phase Deficits: reduced lingual to palatal seal Pharyngeal Phase Deficits: reduced hyolaryngeal elevation and excursion, intermittently incomplete epiglottic inversion, reduced laryngeal vestibule closure, diminished posterior pharyngeal wall stripping wave, mildly reduced base of tongue retraction, reduced sensation. Deficits result in: Frequent premature loss observed with thin liquids ranging from the vallecula to the pyriform sinuses. Pt with notable osteophytes at C2-3 (see Radiologist's report) that appear to impede and/or slow epiglottic inversion as well as in the esophagus at C5-6 that results in small volume esophageal retention and slight retrograde flow (did not re-enter the pharynx). With the osteophyte at C2-3, liquids appear to ricochet off into the laryngeal vestibule during the swallow. Visualized consistent trace SILENT posterior transient aspiration with thins and nectar thick liquid. Trace posterior transient aspiration never remained in the airway and rarely remains in the laryngeal vestibule. A cued cough, chin tuck, and bilateral head turns were ineffective to eliminate penetration and aspiration. When cued to take the biggest drink you would do, noted mild volume aspiration of thin liquids. Pt with immediate but ineffective cough response to mild volume aspiration, cued cough also ineffective to clear from airway. After the swallow, pt with minimal-mild vallecular residue with pudding and dry solid, readily cleared with subsequent swallows. Assessment Details & Results Purpose and Procedure of Videofluoroscopic Study of Swallow: Videofluoroscopic Study of Swallow completed to assess oropharyngeal swallow function and safety/efficiency of the swallow so that diet recommendations can be made. This test is completed in conjunction with Radiology. Results of this test are indicative of performance at the time of the exam. Standard procedure is in lateral view at 90 degrees. Consistencies Administered: Thin liquids, [place] thickened liquids, Purees, Solids Administered consistencies contain barium product. Thin Liquids: Laryngeal Penetration: Present Aspiration Present: Yes Timing: During Amount: Trace Response to aspiration: None, Cough reflex Cough: Non-productive Successful Modifications : Repeat swallow Unsuccessful Modifications: Cough, Repeat swallow, Chin tuck, Turn head right, Turn head left Penetration Aspiration Scale-Thin: 7-Material enters the airway, passes below the vocal folds and is not ejected from the trachea despite effort (x1, otherwise PAS of 6) [place] Thickened Liquids: Laryngeal Penetration: Present Aspiration Present: Yes Timing: During Amount: Trace Response to aspiration: None Successful Modifications : Repeat swallow Unsuccessful Modifications: Cough, Repeat swallow Penetration Aspiration Scale-[place]: 6-Material enters the airway, passes below the vocal folds and is ejected into the larynx or out of the airway Purees: Laryngeal Penetration: None Aspiration Present: No Successful Modifications : Repeat swallow Unsuccessful Modifications: None Penetration Aspiration Scale-Puree: 1-Material does not enter airway Solids: Laryngeal Penetration: None Aspiration Present: No Successful Modifications : Repeat swallow Unsuccessful Modifications: None Penetration Aspiration Scale-Solids: 1-Material does not enter airway MBSImp: MBSImp Results: Lip closure : 0-No labial escape Tongue Control with Bolus Hold: 2-Posterior escape of less than half of bolus Bolus Preparation/Mastication : 0-Timely and efficient chewing and mashing Bolus Transport/Lingual Motion : 0-Brisk tongue motion Oral Residue: 0-Complete oral clearance Initiation of Pharyngeal Swallow : 3-Bolus head in pyriforms Soft Palate : 0-No bolus between soft palate and pharyngeal wall Laryngeal Elevation : 1-Partial superior movement of thyroid cartilage with partial approximation of arytenoids to epiglottic petiole Anterior Hyoid Excursion: 1-Partial anterior movement Epiglottic Movement: 1-Partial inversion Laryngeal Vestibular Closure: 1-Incomplete, narrow column of air/contrast in laryngeal vestibule Pharyngeal Stripping Wave: 1-Present but diminished Pharyngeal Contraction (AP view only): Not assessed, No AP view Pharyngoesophageal Segment Opening : 3-No distension with total obstruction of flow Tongue Base Retraction : 2-Narrow column of contrast or air between tongue base and posterior pharyngeal wall Pharyngeal Residue : 2-Collection of residue within or on pharyngeal structures Esophageal Clearance (upright position): 2-Esophageal retention with retrograde flow below pharyngoesophageal segment (small volume, likely r/t osteophyte) Dysphagia Outcome and Severity Scale: Dysphagia Outcomes and Severity Scale: 5 Mild dysphagia Levels 1 & 2 on the JAQUELIN indicate need for nonoral nutrition. Treatment Treatment was not provided this date. Please reference care plan for treatment goals and details, if indicated. Plan NURSE STAFF Frequency of Services during current admission: Follow-up visit only NURSE STAFF Recommendation (Add'l Services): No further NURSE STAFF indicated (likely at d/c) Next Visit Plan: treatment/therapy Additional Referrals: consider ENT consult at pt's request Discharge Summary Statement If this is the last swallow therapy visit, this serves as the discharge summary. us Kika Simpson DNP NURSE STAFF ORDERABLES Final R esult * POCT glucose (12/24/2024 7:42 AM CDT) Glucose, POC 110 70 - 199 mg/dL Blood 12/24/2024 7:42 AM CDT 12/24/2024 7:42 AM CDT us Indiana Mortensen MD LAB POCT ORDERABLES - DEVICE Final Result [facility] Department [place] [address] * XR Chest 1 View (12/23/2024 10:44 PM CDT) Anatomical Region Laterality Modality Body, Chest N/A Computed Radiogr aphy 12/24/2024 11:0 0 AM CDT Impressions 12/24/2024 11:08 AM CDT Comparison with 01/02/2025. Sternal plates. 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 Aortic valve replacement. Small lung volumes. Decreased trace left pleural effusion. No pneumothorax. Stable cardiac and mediastinal silhouette. Dictated by: Kristina Diaz MD The radiology attending physician has personally reviewed this study, and had reviewed and/or edited this written report and agrees with it. Electronically signed by: Kit Newell M.D. Narrative 12/24/2024 11:08 AM CDT EXAMINATION: 1 view chest radiograph Procedure Note Kit Newell MD - 12/24/2024 EXAMINATION: 1 view chest radiograph IMPRESSION: Comparison with 01/02/2025. Sternal plates. 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 Aortic valve replacement. Small lung volumes. Decreased trace left pleural effusion. No pneumothorax. Stable cardiac and mediastinal silhouette. Dictated by: Kristina Diaz MD The radiology attending physician has personally reviewed this study, and had reviewed and/or edited this written report and agrees with it. Electronically signed by: Kit Newell M.D. Kika Simpson DNP IMG XR PROCEDURES Final Result * Critical Care (12/23/2024 10:37 AM CDT) Narrative Evens Barajas MD PhD - 12/23/2024 10:37 AM CDT Evens Barajas MD PhD 12/23/2024 11:17 AM Critical Care Performed by: Kika Simpson DNP Authorized by: Kika Simpson DNP CRITICAL CARE: Team: 83 CTICU Shift: AM Level of Billing: Subsequent Hospital Visit Level 3 My time spent with this patient was 60 minutes: Critical Provider Statement: I have seen and examined the patient on this day of service. I have reviewed and confirmed the history, physical exam, laboratory, and radiographic data as documented in the ICU note. I have reviewed and discussed my treatment plan with the patient's team and other medical/oncology consultant staff. This time was in addition to and separate from care provided by other practitioners on this day of service. I spent time reviewing and interpreting data from bedside monitors, laboratory results, and imaging, I spent time discussing the management of this critically ill patient with consultants and the medical staff and I spent time documenting in the medical record us Kika Simpson DNP IN CLINIC/BEDSIDE ORDER ROSY Final Result * (ABNORMAL) eGFR (12/23/2024 12:10 AM CDT) eGFR 52(L) >=60 mL/min/1. 73 m2 Comment: Interpretive Data [...] interpretive data was last reviewed 2021. Blood 12/23/2024 12:1 0 AM CDT 12/23/2024 12:37 AM CDT Marian Rodrigues EXPORT SALES ASSISTANT LAB BLOOD ORDERABLES Brenda wharton Result [facility] Department [place] [address] * (ABNORMAL) CBC without differential (12/23/2024 12:10 AM CDT) WBC 22.13(H) 3.80 - 9.90 K/cumm Hgb 9.6(L) 11.9 - 15.5 g/dL [facility] Hct 31.2(L) 35.6 - 45.5 % [facility] Plt 289 150 - 400 K/cumm [facility] MPV 9.8 9.1 - 12.3 fL [facility] RBC 3.35(L) 3.90 - 5.20 M/cumm [facility] MCV 93.1 81.3 - 96.4 fL [facility] MCH 28.7 27.1 - 33.3 pg [facility] MCHC 30.8(L) 32.3 - 35.7 g/dL [facility] RDW CV 15.5(H) 11.1 - 14.9 % [facility] RDW SD 52.0(H) 35.7 - 48.1 fL [facility] NRBC abs 0.05(H) 0.00 - 0.01 K/cumm [facility] Blood 12/23/2024 12:1 0 AM CDT 12/23/2024 12:49 AM CDT Kika Aparicio [facility] DNP LAB BLOOD ORDERABLES Fi nal Result Performing Organization Address City/[facility] Co de Phone Number [facility] [place] [address] * Phosphorus (12/23/2024 12:10 AM CDT) Pathologist [facility] Phosphorus, pl 3.4 2.3 - 4.5 mg/dL Blood 12/23/2024 12:1 0 AM CDT 12/23/2024 12:37 AM CDT Kika Aparicio [facility] LAB BLOOD ORDERABLES Fi nal Result Performing Organization Address [facility] de Phone Number [facility] Department [place] [address] * Magnesium (12/23/2024 12:10 AM CDT) [facility] Magnesium 2.2 1.4 - 2.5 mg/dL Blood 12/23/2024 12:1 0 AM CDT 12/23/2024 12:37 AM CDT Kika Alessandra [facility] DNP LAB BLOOD ORDERABLES Fi nal Result Performing Organization Address City/[facility] Co de Phone Number [facility] [place] [address] * (ABNORMAL) Comprehensive metabolic panel (12/23/2024 12:10 AM CDT) [facility] Sodium 141 135 - 145 mmol/L Potassium, pl 3.8 3.3 - 4.9 mmol/L [facility] Chloride 98 97 - 110 mmol/L [facility] CO2 31 22 - 32 mmol/L [facility] Anion gap 12 2 - 15 mmol/L [facility] BUN 36(H) 6 - 25 mg/dL [facility] Creatinine 1.18(H) 0.60 - 1.10 mg/dL [facility] Glucose 106 70 - 199 mg/dL [facility] Comment: Interpretive Data Fasting glucose >/= 126 [...] classification and Diagnosis of Diabetes Diabetes Care 2021; 46: S19-S40. Current interpretive data was last revised 2022. Calcium 8.8 8.5 - 10.3 mg/dL [facility] Bilirubin, total 0.7 0.1 - 1.2 mg/dL [facility] Protein, pl 6.4(L) 6.5 - 8.5 g/dL [facility] Albumin 3.7 3.5 - 5.0 g/dL [facility] Alk phos 91 40 - 130 Units/L [facility] ALT 391(H) 7 - 45 Units/L [facility] AST 70(H) 10 - 45 Units/L [facility] Blood 12/23/2024 12:1 0 AM CDT 12/23/2024 12:37 AM CDT us Kika Simpson DNP LAB BLOOD ORDERABLES Fi nal Result [facility] Department [place] [address] * POCT glucose (12/22/2024 4:05 PM CDT) Glucose, POC 134 70 - 199 mg/dL Blood 12/22/2024 4:05 PM CDT 12/22/2024 4:05 PM CDT Indiana Mortensen MD LAB POCT ORDERABLES - DEVICE Final Result Performing Organization Address City/State/[facility] Co ny Phone Number [facility] Department of Laboratories [place], [place] [id number] * US VEIN DUPLEX LOWER EXTREMITY RIGHT LIMITED, UNILATERAL (12/22/2024 3:35 PM CDT) Anatomical Region Laterality Modality Vascular Right Ultrasound 12/22/2024 10:4 1 AM CDT Narrative 12/23/2024 11:17 AM CDT [facility] - Department of Vascular Surgery, Vascular Laboratory [address] [place] [id number] Lower Extremity Venous Ultrasound Report Patient Name: ADI FLOWERS : 1960 (64y 1m) Study Date: 12/22/2024 10:41:36 AM Gender: F Tech: Location: [id number] Ref Provider: RUTHANN COX Quality: Adequate Order Provider: RUTHANN COX PROCEDURES: Vascular Report: Venous Duplex imaging was performed bilaterally in the lower extremities. The common femoral, femoral, popliteal, posterior tibial, peroneal veins were evaluated for patency, spontaneity and phasicity with Doppler, compression and augmentation maneuvers. Great saphenous vein proximal at the junction was evaluated with compression maneuvers. INDICATIONS: Swelling, Lower Extremity, Right; known peroneal dvt. RLE with increased pain, swelling, and redness - FINDINGS: Performing Childhood Teacher: Maria Esther Sam RVT. Right: Duplex scan reveals dilated vein with echogenic, intraluminal, non-compressible material consistent with acute deep vein thrombosis in the right lower extremity. Deep veins involved include the right posterior tibial veins and peroneal veins. All other evaluated veins on the right are patent. Comments: Contralateral common femoral vein is imaged for comparison and is patent. Unilateral (limited study) performed per M.D. order. Provider Notification: Results called on the above date to Michael DACOSTA at 3:22pm. CONCLUSIONS: 1. There is acute deep vein thrombosis involving vein(s) as noted above in the right lower extremity. 2. Compared with study performed on 12/19/24, there has been progression of thrombus on the right. HISTORY: Aortic stenosis, CAD, bradycardia, complete heart block, HTN, bilateral lower extremity swelling. PREVIOUS STUDIES: Previous study performed on 12/19/24 Rt DVT Toni v's. DISCLAIMER: The study images and the final report will be retained in the patient chart by the Vascular Laboratory for the legally required time period. This chart constitutes the legal record of any testing performed. ATTESTATION: I have reviewed and interpreted the pertinent images and measurements of this study. I attest to the conclusions in the final report that is provided above. Electronically Signed By: Rvainder Buitrago MD [facility] [phone] 12/23/2024 10:09:07 AM CDT Procedure Note Ravinder Buitrago MD - 12/23/2024 [facility] - Department of Vascular Surgery,Vascular Laboratory [address] [place] [id number] Lower Extremity Venous Ultrasound Report Patient Name: ADI FLOWERS : 1960 (64y 1m) Study Date: 12/22/2024 10:41:36 AM Gender: F Tech: Location: [id number] Ref Provider: RUTHANN COX Quality: Adequate Order Provider: RUTHANN COX PROCEDURES: Vascular Report: Venous Duplex imaging was performed bilaterally in the lower extremities.The common femoral, femoral, popliteal, posterior tibial, peroneal veins wereevaluated for patency, spontaneity and phasicity with Doppler, compression and augmentationmaneuvers. Great saphenous vein proximal at the junction was evaluated with compressionmaneuvers. INDICATIONS: Swelling, Lower Extremity, Right; known peroneal dvt. RLE with increasedpain, swelling, and redness - FINDINGS: Performing Childhood Teacher: Maria Esther Sam RVT. Right: Duplex scan reveals dilated vein with echogenic, intraluminal,non-compressible material consistent with acute deep vein thrombosis in the right lower extremity.Deep veins involved include the right posterior tibial veins and peroneal veins. Allother evaluated veins on the right are patent. Comments: Contralateral common femoral vein is imaged for comparison and is patent.Unilateral (limited study) performed per M.D. order. Provider Notification: Results called on the above date to Michael DACOSTA at 3:22pm. CONCLUSIONS: 1. There is acute deep vein thrombosis involving vein(s) as noted above inthe right lower extremity. 2. Compared with study performed on 12/19/24, there has been progression ofthrombus on the right. HISTORY: Aortic stenosis, CAD, bradycardia, complete heart block, HTN, bilaterallower extremity swelling. PREVIOUS STUDIES: Previous study performed on 12/19/24 Rt DVT Toni v's. DISCLAIMER: The study images and the final report will be retained in the patientchart by the Vascular Laboratory for the legally required time period. This chartconstitutes the legal record of any testing performed. ATTESTATION: I have reviewed and interpreted the pertinent images and measurements ofthis study. I attest to the conclusions in the final report that is provided above. Electronically Signed By: Ravinder Buitrago MD [facility] [phone] 12/23/2024 10:09:07 AM CDT Ruthann Cox EXPORT SALES ASSISTANT IMG US PROCEDURES Fin al Result * POCT glucose (12/22/2024 1:23 PM CDT) Glucose, POC 128 70 - 199 mg/dL Blood 12/22/2024 1:23 PM CDT 12/22/2024 1:23 PM CDT Indiana Mortensen MD LAB POCT ORDERABLES - DEVICE Final Result Performing Organization Address [facility]/ZIP Co de Phone Number [facility] Department [place] [address] * Potassium, whole blood (12/22/2024 1:18 PM CDT) Potassium, bld 3.4 3.3 - 4.9 mmol/L Blood 12/22/2024 1:18 PM CDT 12/22/2024 1:39 PM CDT Chapito Rodriguez NP LAB BLOOD ORDERABLES Final Re sult Performing Organization Address City/[facility]/ZIP Co de Phone Number [facility] Department [place] [address] * XR Chest 1 View (12/22/2024 9:36 AM CDT) Anatomical Region Laterality Modality Body, Chest N/A Computed Radiogr aphy 12/22/2024 10:2 3 AM CDT Impressions 12/22/2024 11:04 AM CDT Comparison with 12/20/2024. 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 Left internal jugular sheath. Sternal plates. Aortic valve replacement. Feeding tube courses below the left hemidiaphragm. Trace right and small left pleural effusions with associated atelectasis. No pneumothorax. Stable cardiomediastinal silhouette. Dictated by: Kristina Diaz MD The radiology attending physician has personally reviewed this study, and had reviewed and/or edited this written report and agrees with it. Electronically signed by: Sunny Child M.D. Narrative 12/22/2024 11:04 AM CDT EXAMINATION: 1 view chest radiograph Procedure Note Sunny Child MD - 12/22/2024 EXAMINATION: 1 view chest radiograph IMPRESSION: Comparison with 12/20/2024. 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 Left internal jugular sheath. Sternal plates. Aortic valve replacement. Feeding tube courses below the left hemidiaphragm. Trace right and small left pleural effusions with associated atelectasis. No pneumothorax. Stable cardiomediastinal silhouette. Dictated by: Kristina Diaz MD The radiology attending physician has personally reviewed this study, and had reviewed and/or edited this written report and agrees with it. Electronically signed by: Sunny Child M.D. us Thoa Thi Rodriguez EXPORT SALES ASSISTANT IMG XR PROCEDURES Final Resul t * POCT glucose (12/22/2024 7:34 AM CDT) Glucose, POC 127 70 - 199 mg/dL Blood 12/22/2024 7:34 AM CDT 12/22/2024 7:34 AM CDT us Indiana Mortensen MD LAB POCT ORDERABLES - DEVICE Final Result [facility] Department [place] [address] * Critical Care (12/22/2024 6:40 AM CDT) Narrative Evens Barajas MD PhD - 12/22/2024 6:40 AM CDT Evens Barajas MD PhD 12/22/2024 4:07 PM Critical Care Performed by: Chapito Rodriguez NP Authorized by: Chapito Rodriguez NP CRITICAL CARE: Team: 83 CTICU Shift: AM Level of Billing: Subsequent Hospital Visit Level 3 My time spent with this patient was 65 minutes: Critical Provider Statement: I have seen and examined the patient on this day of service. I have reviewed and confirmed the history, physical exam, laboratory, and radiographic data as documented in the ICU note. I have reviewed and discussed my treatment plan with the patient's team and other medical/oncology consultant staff. This time was in addition to and separate from care provided by other practitioners on this day of service. I spent time reviewing and interpreting data from bedside monitors, laboratory results, and imaging, I spent time discussing the management of this critically ill patient with consultants and the medical staff and I spent time documenting in the medical record us Chapito Rodriguez NP IN CLINIC/BEDSIDE ORDERABLES Final Result * Infection Prevention Justice auris PCR, surveillance Axilla/Groin (12/22/2024 2:11 AM CDT) Justice auris DNA Not Detected Not Detected [facility] Comment: Interpretive Data Testing performed by [facility] Molecular Infectious Disease Laboratory using the Stacie shirin 6800 Justice auris assay. This assay detects DNA from Justice auris using Real-Time PCR. This assay is laboratory developed and is not cleared by the [place] Food and Drug Administration. The performance characteristics have been verified by the [facility] Molecular Infectious Disease Laboratory. Axilla/Groin 12/22/2024 2:11 AM CDT 12/22/2024 4:08 AM CDT Narrative ALEX MCKEON - 12/22/2024 1:00 PM CDT Order placed by OPA due to ring surveillance. us Instant Order Generic Provider LAB MICROBIOLOGY - GENERAL ORDERABLES Final Result Performing Organization Address [facility] Co de Phone Number ALEX [facility] [place] [address] [facility] * (ABNORMAL) eGFR (12/22/2024 2:11 AM CDT) eGFR 57(L) >=60 mL/min/1. 73 m2 Comment: Interpretive Data [...] interpretive data was last reviewed 2021. Blood 12/22/2024 2:11 AM CDT 12/22/2024 3:48 AM CDT us Marian Rodrigues EXPORT SALES ASSISTANT LAB BLOOD ORDERABLES Brenda l [facility] [place] [address] * (ABNORMAL) CBC without differential (12/22/2024 2:11 AM CDT) WBC 23.59(H) 3.80 - 9.90 K/cumm Hgb 8.8(L) 11.9 - 15.5 g/dL [facility] Hct 27.0(L) 35.6 - 45.5 % [facility] Plt 265 150 - 400 K/cumm [facility] MPV 9.7 9.1 - 12.3 fL [facility] RBC 2.98(L) 3.90 - 5.20 M/cumm [facility] MCV 90.6 81.3 - 96.4 fL [facility] MCH 29.5 27.1 - 33.3 pg [facility] MCHC 32.6 32.3 - 35.7 g/dL [facility] RDW CV 15.8(H) 11.1 - 14.9 % [facility] RDW SD 50.0(H) 35.7 - 48.1 fL [facility] NRBC abs 0.06(H) 0.00 - 0.01 K/cumm [facility] Blood 12/22/2024 2:11 AM CDT 12/22/2024 3:49 AM CDT [facility] LAB BLOOD ORDERABLES Fi nal Result Performing Organization Address [facility] de Phone Number [facility] Department [place] [address] * Phosphorus (12/22/2024 2:11 AM CDT) [facility] Phosphorus, pl 4.3 2.3 - 4.5 mg/dL Blood 12/22/2024 2:11 AM CDT 12/22/2024 3:48 AM CDT [facility] LAB BLOOD ORDERABLES Fi nal Result [facility] [place] [address] * Magnesium (12/22/2024 2:11 AM CDT) [facility] Magnesium 1.9 1.4 - 2.5 mg/dL Blood 12/22/2024 2:11 AM CDT 12/22/2024 3:48 AM CDT us Kika Simpson [facility] LAB BLOOD ORDERABLES Fi nal Result [facility] Department [place] [address] * (ABNORMAL) Comprehensive metabolic panel (12/22/2024 2:11 AM CDT) Sodium 143 135 - 145 mmol/L Potassium, pl 3.4 3.3 - 4.9 mmol/L [facility] Chloride 99 97 - 110 mmol/L [facility] CO2 29 22 - 32 mmol/L [facility] Anion gap 15 2 - 15 mmol/L [facility] BUN 32(H) 6 - 25 mg/dL [facility] Creatinine 1.10 0.60 - 1.10 mg/dL [facility] Glucose 114 70 - 199 mg/dL [facility] Comment: Interpretive Data Fasting glucose >/= 126 [...] interpretive data was last revised 2022. Calcium 8.5 8.5 - 10.3 mg/dL [facility] Bilirubin, total 0.8 0.1 - 1.2 mg/dL [facility] Protein, pl 5.9(L) 6.5 - 8.5 g/dL [facility] Albumin 3.3(L) 3.5 - 5.0 g/dL [facility] Alk phos 81 40 - 130 Units/L [facility] ALT 470(H) 7 - 45 Units/L [facility] AST 70(H) 10 - 45 Units/L [facility] Blood 12/22/2024 2:1 1 AM CDT 12/22/2024 3:48 AM CDT Kika Christiansontingly DNP LAB BLOOD ORDERABLES Fi nal Result Performing Organization Address [facility] Co de Phone Number [facility] Department [place] [address] * POCT glucose (12/21/2024 9:14 PM CDT) Glucose, POC 118 70 - 199 mg/dL Blood 12/21/2024 9:14 PM CDT 12/21/2024 9:14 PM CDT Indiana Mortensen MD LAB POCT ORDERABLES - DEVICE Final Result Performing Organization Address [facility] de Phone Number [facility] Department [place] [address] * Critical Care (12/21/2024 7:43 PM CDT) Narrative Evens Barajas MD PhD - 12/21/2024 7:43 PM CDT Evens Barajas MD PhD 12/22/2024 6:33 AM Critical Care Performed by: Ruthann Cox NP Authorized by: Ruthann Cox NP CRITICAL CARE: Team: 83 CTICU Shift: PM Level of Billing: Critical Care My time spent with this patient was 70 minutes: Critical Provider Statement: I have seen and examined the patient on this day of service. I have reviewed and confirmed the history, physical exam, laboratory and radiologic data as documented in the signed ICU note. I have reviewed and discussed my treatment plan with the ICU team and other medical/oncology consultant staff, making frequent assessments and decisions regarding this patient's complex medical care. Critical Care time was exclusive of time spent performing separately billed procedures, treating other patients, and teaching. This time was in addition to and separate from critical care provided by other practitioners in my group on this day of service. Critical Care was necessary to treat or prevent imminent or life-threatening deterioration of the following conditions: I spent time reviewing and interpreting data from bedside monitors, laboratory results, and imaging, I spent time discussing the management of this critically ill patient with consultants and the medical staff and I spent time documenting in the medical record Ruthann Cox EXPORT SALES ASSISTANT IN CLINIC/BEDSIDE ORD ERABLES Final Result * POCT glucose (12/21/2024 3:07 PM CDT) Glucose, POC 120 70 - 199 mg/dL Blood 12/21/2024 3:07 PM CDT 12/21/2024 3:07 PM CDT Indiana Mortensen MD LAB POCT ORDERABLES - DEVICE Final Result [facility] Department [place] [address] * (ABNORMAL) Urinalysis reflex to microscopic (12/21/2024 11:20 AM CDT) Color, ur Straw Yellow Clarity, ur Clear Clear [facility] Specific gravity, ur 1.009 1.003 - 1.030 [facility] pH, urine 6.5 [facility] Comment: Interpretive Data U rine pH is affected by diet, medications, systemic acid-base disturbances, and renal tubular function. pH may affect urinary stone formation. For example, urine pH below 6.0 may help reduce the tendency for calcium phosphate stones and pH greater than 6.0 may reduce the tendency for uric acid stone formation. Source: [facility] [employer] Current Interpretive Data was last revised on 2017 Protein, ur ql Negative Negative [facility] Glucose, ur ql Negative Negative [facility] Ketones, ur Negative Negative [facility] Bilirubin, ur Negative Negative [facility] Blood, ur Trace(A) Negative [facility] Urobilinogen, ur <2.0 <2.0 mg/dL [facility] Nitrite, ur Negative Negative [facility] Leukocyte esterase, ur Trace(A) Negative [facility] UA reflex comment Reflex to microscopic UA will be performed. [facility] Urine 12/21/2024 11:2 0 AM CDT 12/21/2024 11:30 AM CDT Kika Simpson [facility] LAB URINE ORDERABLES Fi nal Result Performing Organization Address [facility]/ZIP Co de Phone Number [facility] Department [place] [address] * Blood culture Blood (12/21/2024 11:20 AM CDT) Report Final Report: No growth Blood 12/21/2024 11:2 0 AM CDT 12/21/2024 10:59 PM CDT Narrative [facility] - 12/26/2024 7:00 AM CDT Collection->Peripheral 1. Blood cultures are incubated for 4 days on a continuously monitored blood culture system. The first report of a negative culture is issued within 24 hours of receipt of the specimen in the laboratory. 2. Positive culture results are reported as soon as they are detected. 3. The most important factor for detection of microbes in the setting of bloodstream infection is the volume of blood submitted for culture. Failure to collect an optimal blood volume can result in false negative blood cultures. 4. For pediatric patients, the recommended blood volume to collect follows a weight based strategy. See the electronic test catalog for collection instructions. 5. For positive blood cultures, a rapid molecular test may be performed for organism identification using the shirin ePlex blood culture identification panel for gram positive (BCID-GP) and gram negative (BCID-GN) organisms. This nucleic acid amplification test detects microbial DNA in positive blood culture broth. This assay has been cleared by the [place] Food and Drug Administration and its performance characteristics have been verified by the [facility] Microbiology Laboratory. For questions about this culture, contact the Microbiology Laboratory at [phone]. Interpretive data was last revised on 24. Kika Simpson [facility] LAB MICROBIOLOGY - GENE RAL ORDERABLES Final Result Performing Organization Address [facility] Co de Phone Number [facility] Department [place] [address] * Blood culture Blood (12/21/2024 11:20 AM CDT) Report Final Report: No growth Blood 12/21/2024 11:2 0 AM CDT 12/21/2024 10:47 PM CDT Narrative ALEX [facility] - 12/26/2024 7:00 AM CDT Collection->Peripheral 1. Blood cultures are incubated for 4 days on a continuously monitored blood culture system. The first report of a negative culture is issued within 24 hours of receipt of the specimen in the laboratory. 2. Positive culture results are reported as soon as they are detected. 3. The most important factor for detection of microbes in the setting of bloodstream infection is the volume of blood submitted for culture. Failure to collect an optimal blood volume can result in false negative blood cultures. 4. For pediatric patients, the recommended blood volume to collect follows a weight based strategy. See the electronic test catalog for collection instructions. 5. For positive blood cultures, a rapid molecular test may be performed for organism identification using the shirin ePlex blood culture identification panel for gram positive (BCID-GP) and gram negative (BCID-GN) organisms. This nucleic acid amplification test detects microbial DNA in positive blood culture broth. This assay has been cleared by the [place] Food and Drug Administration and its performance characteristics have been verified by the [facility] Microbiology Laboratory. For questions about this culture, contact the Microbiology Laboratory at [phone]. Interpretive data was last revised on 24. us Kika Simpson [facility] LAB MICROBIOLOGY - GENE RAL ORDERABLES Final Result [facility] Department [place] [address] * (ABNORMAL) Urinalysis, microscopic only (12/21/2024 11:20 AM CDT) WBC, ur 0-5 0 - 5 /HPF RBC, ur 6-10(A) 0 - 2 /HPF [facility] Bacteria, ur Trace(A) [facility] Mucous, ur Present(A) [facility] Urine 12/21/2024 11:2 0 AM CDT 12/21/2024 11:30 AM CDT us Kika Simpson DNP LAB URINE ORDERABLES Fi nal Result [facility] Department [place] [address] * NURSE STAFF Evaluate and Treat (FEES) (12/21/2024 11:19 AM CDT) Narrative [facility] - 12/21/2024 11:19 AM CDT Yasmin Dunaway, NICO 12/21/2024 1:59 PM Speech-Language Pathology: Flexible Endoscopic Evaluation of Swallowing (FEES) HPI/PMH 64 yo F admitted with CC of aortic stenosis s/p AVR, CABG x1. PMHx of KOJO, HTN, anxiety, hx of gastric bypass, HLD, CAD, GERD, anemia, chronic neck and back pain. While attempting to undergo knee replacement 2007, pt with heart murmur and has been completing echocardiograms annually to monitor aortic valve stenosis. Pt completed LHC with showed multivessel coronary disease. Regular diet, thin liquids per NURSE STAFF eval 12/13. Episodes of seizures since then. 12/09: s/p AVR, aortic root enlargement and CABG x1 Respiratory/Intubation Status: intubated 12/09-12/09, 12/15-12/17 Imaging: CXR 12/19: The heart and mediastinal contours are stable. There is no pneumothorax. Small effusions are present. Moderate severity pulmonary edema slightly worse than on the prior study. Precautions: Fall PLOF: none Current Diet Order:NPO Baseline Diet: Regular General Information Adi Flowers 12/21/24 NURSE STAFF Received On: 12/21/24 General Observations: Pt seen in 8200 ICU. Pt's sister assisted with feeding. Sitter present. Gag response several minutes into FEES during voicing tasks - pt immediately removed scope. Immediately apologized and agreed to scope re-insertion. Pt was cued to hum if she felt like gagging, which she used throughout the FEES. Followed all commands. Pain Score: 0 - No pain If pain >4, was RN notified? 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 A chin tuck and bolus hold strategy did not eliminate this finding. Penetrated material clears with a cued throat clear + re swallow. No observed airway invasion of nectar thick liquids (NTL), honey thick liquids, puree, or hard solids. Pharyngeal residue is mild and clears with volitional re swallows. Mild vallecular residue of solids clears with a NTL wash. There is a collection of residue on the epiglottic rim with puree and solids, ejects with a re swallow or next trial. Although no aspiration was confirmed with thin liquids, recommend thickened liquids d/t recent RN concern for aspiration with thin liquids and immediate coughing with ice chips during clinical swallow evaluation on 12/20. Pt may benefit from an ENT consult if vocal quality does not improve to baseline within the next few weeks or if dysphagia persists Assessment Details & Results Purpose and Procedure of Flexible Endoscopic Evaluation of Swallowing: Completed to assess oropharyngeal swallow function and evaluate the safety/efficiency of the swallow so that diet recommendations can be made. Results are indicative of performance at time of exam. A flexible endoscope was passed transnasally to the level of the hypopharynx without administration of topical anesthetic. The soft palate, pharynx, larynx, and surrounding structures were viewed. Position During Assessment: Position: Seated upright, in a chair Anatomy and Physiology Anatomy and Physiology Findings: Deficits Deficits: Decreased mobility of true vocal folds, Edema Decreased mobility of true vocal folds: Bilateral Edema: Commissure, posterior Consistencies Administered: Thin liquids, [place] thick liquids, Honey thick liquids, Purees, Solids Thin Liquids: Laryngeal Penetration: Present Aspiration Present: (unable to rule out) Penetration Aspiration Scale-Thin: 3-Material enters the airway, remains above the vocal folds and is not ejected from the airway ; versus 8 Wenden Scale-Vallecular Residue-Thin Liquids: Mild Wenden Scale-Pyriform Sinus Residue-Thin Liquids: Mild [place] Thickened Liquids: Laryngeal Penetration: None Aspiration Present: No Penetration Aspiration Scale-[place]: 1-Material does not enter airway Wenden Scale-Vallecular Residue-[place] Thickened Liquids: Mild Delilah Scale-Pyriform Sinus Residue-[place] Thickened Liquids: Trace Honey Thickened Liquids: Laryngeal Penetration: None Aspiration Present: No Penetration Aspiration Scale-Honey: 1-Material does not enter airway Delilah Scale-Vallecular Residue-Honey Thickened Liquids: Mild Delilah Scale-Pyriform Sinus Residue-Honey Thickened Liquids: Trace Purees: Laryngeal Penetration: None Aspiration Present: No Penetration Aspiration Scale-Puree: 1-Material does not enter airway Delilah Scale-Vallecular Residue-Puree: Mild Delilah Scale-Pyriform Sinus Residue-Puree: Mild Solids: Laryngeal Penetration: None Aspiration Present: No Penetration Aspiration Scale-Solids: 1-Material does not enter airway Wenden Scale-Vallecular Residue-Solids: Mild Wenden Scale-Pyriform Sinus Residue-Solids: None Dysphagia Outcome and Severity Scale: Dysphagia Outcomes and Severity Scale: 5 Mild dysphagia Levels 1 & 2 on the JAQUELIN indicate need for nonoral nutrition. Treatment Treatment was not provided this date. Please reference care plan for treatment goals and details, if indicated. Plan NURSE STAFF Frequency of Services during current admission: 2-3x/wk NURSE STAFF Recommendation (Add'l Services): Defer at this time Next Visit Plan:treatment/therapy Additional Referrals: none Discharge Summary Statement If this is the last swallow therapy visit, this serves as the discharge summary. us Chapito Rodriguez EXPORT SALES ASSISTANT NURSE STAFF ORDERABLES Final Result [facility] * COVID-19 Coronavirus RNA Nasopharyngeal (12/21/2024 10:28 AM CDT) Pathologist [facility] COVID-19 RNA Negative Negative [facility] Nasopharyngeal 12/21/2024 10 :28 AM CDT 12/21/2024 11:39 AM CDT Narrative ALEX [facility] - 12/21/2024 12:13 PM CDT Is the patient experiencing any symptoms consistent with COVID (eg. Fever, cough, shortness of breath)?->No What is the reason for testing?->Screening prior to urgent surgery, procedure, delivery, transplant, immune suppressive therapy Interpretive data Testing performed by [facility] ([phone]). This test is performed using the Fix8 Xpert Xpress CoV-2 plus assay. This is a real-time RT-PCR test intended for the qualitative detection of nucleic acid from the SARS-CoV-2. This assay has been cleared by the [place] Food and Drug administration. The performance characteristics have been verified by the [facility]. Results must be considered in the clinical context, and a negative result does not rule out infection. Interpretive data last revised 2024. Interpretive data Testing performed by [facility] ([phone]). This test is performed using the Fix8 Xpert Xpress CoV-2 plus assay. This is a real-time RT-PCR test intended for the qualitative detection of nucleic acid from the SARS-CoV-2. This assay has been cleared by the [place] Food and Drug administration. The performance characteristics have been verified by the [facility]. Results must be considered in the clinical context, and a negative result does not rule out infection. Interpretive data last revised 2024. Kika Simpson [facility] LAB MICROBIOLOGY - [facility] ORDERABLES Final Result [facility] Department [place] [address] [facility] * (ABNORMAL) Differential, auto (12/21/2024 10:28 AM CDT) Pathologist [facility] Neutrophil abs 20.93(H) 1.50 - 6.50 K/cumm Imm gran abs 0.95(H) 0.00 - 0.10 K/cumm [facility] Lymphocyte abs 1.22 0.80 - 3.30 K/cumm [facility] Monocyte abs 1.89(H) 0.20 - 0.80 K/cumm [facility] Eosinophil abs 0.57(H) 0.00 - 0.50 K/cumm [facility] Basophil abs 0.12(H) 0.00 - 0.10 K/cumm [facility] Neutrophil pct 81.4 % [facility] Comment: Interpretive Data Percent cell count reference ranges are not reported, since discordance with absolute values may lead to misinterpretation of CBC data. Current Interpretive Data was last revised on 2017. Imm gran pct 3.7 % [facility] Comment: Interpretive Data Percent cell count reference ranges are not reported, since discordance with absolute values may lead to misinterpretation of CBC data. Current Interpretive Data was last revised on 2017. Lymphocyte pct 4.8 % [facility] Comment: Interpretive Data Percent cell count reference ranges are not reported, since discordance with absolute values may lead to misinterpretation of CBC data. Current Interpretive Data was last revised on 2017. Monocyte pct 7.4 % [facility] Comment: Interpretive Data Percent cell count reference ranges are not reported, since discordance with absolute values may lead to misinterpretation of CBC data. Current Interpretive Data was last revised on 2017. Eosinophil pct 2.2 % [facility] Comment: Interpretive Data Percent cell count reference ranges are not reported, since discordance with absolute values may lead to misinterpretation of CBC data. Current Interpretive Data was last revised on 2017. Basophil pct 0.5 % [facility] Comment: Interpretive Data Percent cell count reference ranges are not reported, since discordance with absolute values may lead to misinterpretation of CBC data. Current Interpretive Data was last revised on 2017. Blood 12/21/2024 10:2 8 AM CDT 12/21/2024 11:41 AM CDT us Kika Simpson DNP LAB BLOOD ORDERABLES Fi nal Result [facility] Department [place] [address] * (ABNORMAL) CBC with auto differential (12/21/2024 10:28 AM CDT) Pathologist [facility] WBC 25.68(H) 3.80 - 9.90 K/cumm Hgb 8.9(L) 11.9 - 15.5 g/dL [facility] Hct 27.5(L) 35.6 - 45.5 % [facility] Plt 261 150 - 400 K/cumm [facility] MPV 9.5 9.1 - 12.3 fL [facility] RBC 3.01(L) 3.90 - 5.20 M/cumm [facility] MCV 91.4 81.3 - 96.4 fL [facility] MCH 29.6 27.1 - 33.3 pg [facility] MCHC 32.4 32.3 - 35.7 g/dL [facility] RDW CV 15.8(H) 11.1 - 14.9 % [facility] RDW SD 50.8(H) 35.7 - 48.1 fL [facility] NRBC abs 0.08(H) 0.00 - 0.01 K/cumm [facility] Blood 12/21/2024 10:2 8 AM CDT 12/21/2024 11:41 AM CDT Kika Simpson [facility] LAB BLOOD ORDERABLES nal Result [facility] Department [place] [address] * (ABNORMAL) aPTT (12/21/2024 10:28 AM CDT) Pathologist [facility] aPTT 27(L) 28 - 38 sec Comment: Interpretive Data Heparin therapeutic range: 66.0 - 100.0 seconds. Range based on correlation with therapeutic heparin activity range of 0.3 - 0.7 Units/mL. Current interpretive data was last revised on 2023. Blood 12/21/2024 10:2 8 AM CDT 12/21/2024 11:36 AM CDT [facility] Fi nal Result Performing Organization Address [facility] Co de Phone Number [facility] [place] [address] * (ABNORMAL) Protime-INR (12/21/2024 10:28 AM CDT) PT 13.7(H) 9.7 - 13.0 sec INR 1.26(H) 0.90 - 1.20 [facility] Comment: Interpretive data Oral anticoagulant therapeutic ranges: Venous thromboembolism prophylaxis or treatment: 2.0-3.0 CARDIOLOGY Standard range: 2.0-3.0 High-intensity range: 2.5-3.5 Refer to indication-specific guidelines for appropriate target ranges for prosthetic heart valve replacement. Current interpretive data was last revised on 2019. Blood 12/21/2024 10:2 8 AM CDT 12/21/2024 11:36 AM CDT us Kikashasta Aparicio Calvin [facility] LAB BLOOD ORDERABLES Fi nal Result Performing Organization Address [facility] [place] [address] * POCT glucose (12/21/2024 7:38 AM CDT) Glucose, POC 119 70 - 199 mg/dL Blood 12/21/2024 7:38 AM CDT 12/21/2024 7:38 AM CDT Indiana Mortensen MD LAB POCT ORDERABLES - DEVICE Final Result Performing Organization Address [facility] [place] [address] * Critical Care (12/21/2024 7:17 AM CDT) Narrative Chapito Rodriguez NP - 12/21/2024 7:17 AM CDT Chapito Rodriguez NP 12/22/2024 11:47 AM Critical Care Performed by: Chapito Rodriguez NP Authorized by: Chapito Rodriguez NP CRITICAL CARE: Team: 83 CTICU Shift: AM Level of Billing: Critical Care My time spent with this patient was 75 minutes: Critical Provider Statement: I have seen and examined the patient on this day of service. I have reviewed and confirmed the history, physical exam, laboratory and radiologic data as documented in the signed ICU note. I have reviewed and discussed my treatment plan with the ICU team and other medical/oncology consultant staff, making frequent assessments and decisions regarding this patient's complex medical care. Critical Care time was exclusive of time spent performing separately billed procedures, treating other patients, and teaching. This time was in addition to and separate from critical care provided by other practitioners in my group on this day of service. Critical Care was necessary to treat or prevent imminent or life-threatening deterioration of the following conditions: I spent time reviewing and interpreting data from bedside monitors, laboratory results, and imaging, I spent time discussing the management of this critically ill patient with consultants and the medical staff and I spent time documenting in the medical record Chapito Rodriguez NP IN CLINIC/BEDSIDE ORDERABLES Edited Result - Final * POCT glucose (12/21/2024 3:56 AM CDT) Pathologist [facility] Glucose, POC 110 70 - 199 mg/dL Blood 12/21/2024 3:56 AM CDT 12/21/2024 3:56 AM CDT Indiana Mortensen MD LAB POCT ORDERABLES - DEVICE Final Result [facility] Department [place] [address] * (ABNORMAL) CBC without differential (12/21/2024 12:45 AM CDT) Pathologist [facility] WBC 21.05(H) 3.80 - 9.90 K/cumm Hgb 8.4(L) 11.9 - 15.5 g/dL [facility] Hct 25.8(L) 35.6 - 45.5 % [facility] Plt 225 150 - 400 K/cumm [facility] MPV 9.6 9.1 - 12.3 fL [facility] RBC 2.82(L) 3.90 - 5.20 M/cumm [facility] MCV 91.5 81.3 - 96.4 fL [facility] MCH 29.8 27.1 - 33.3 pg [facility] MCHC 32.6 32.3 - 35.7 g/dL [facility] RDW CV 15.6(H) 11.1 - 14.9 % [facility] RDW SD 50.0(H) 35.7 - 48.1 fL [facility] NRBC abs 0.07(H) 0.00 - 0.01 K/cumm [facility] Blood 12/21/2024 12:4 5 AM CDT 12/21/2024 1:10 AM CDT Ruthann Cox NP LAB BLOOD ORDERABLES Final Result [facility] Department [place] [address] * eGFR (12/21/2024 12:03 AM CDT) eGFR 68 >=60 mL/min/1. 73 m2 Comment: Interpretive Data [...] interpretive data was last reviewed 2021. Blood 12/21/2024 12:0 3 AM CDT 12/21/2024 12:19 AM CDT us Marian Rodrigues EXPORT SALES ASSISTANT LAB BLOOD ORDERABLES Brenda l Result Performing Organization Address [facility]/ZIP Co de Phone Number [facility] Department [place] [address] * POCT glucose (12/21/2024 12:03 AM CDT) Glucose, POC 128 70 - 199 mg/dL Blood 12/21/2024 12:0 3 AM CDT 12/21/2024 12:03 AM CDT Indiana Mortensen MD LAB POCT ORDERABLES - DEVICE Final Result Performing Organization Address [facility] [place] [facility] [place] [address] * Type and screen (12/21/2024 12:03 AM CDT) Sarah, indirect Negative ABO Rh B Negative [facility] Blood 12/21/2024 12:0 3 AM CDT 12/21/2024 12:21 AM CDT Narrative [facility] - 12/21/2024 1:10 AM CDT Has the patient had Daratumumab or Isatuximab in the past 6 months?->Unknown us Kika Simpson [facility] LAB BLOOD BANK TEST ORD ERABLES Final Result Performing Organization Address [facility] Co de Phone Number [facility] [place] [address] * (ABNORMAL) Phosphorus (12/21/2024 12:03 AM CDT) [facility] Phosphorus, pl 5.2(H) 2.3 - 4.5 mg/dL Blood 12/21/2024 12:0 3 AM CDT 12/21/2024 12:19 AM CDT [facility] LAB BLOOD ORDERABLES Fi nal Result Performing Organization Address [facility] de Phone Number [facility] Department [place] [address] * Magnesium (12/21/2024 12:03 AM CDT) [facility] Magnesium 2.0 1.4 - 2.5 mg/dL Blood 12/21/2024 12:0 3 AM CDT 12/21/2024 12:19 AM CDT [facility] LAB BLOOD ORDERABLES Fi nal Result Performing Organization Address [facility] de Phone Number [facility] [place] [address] * (ABNORMAL) Comprehensive metabolic panel (12/21/2024 12:03 AM CDT) [facility] Sodium 143 135 - 145 mmol/L Potassium, pl 3.8 3.3 - 4.9 mmol/L [facility] Chloride 105 97 - 110 mmol/L [facility] CO2 27 22 - 32 mmol/L [facility] Anion gap 11 2 - 15 mmol/L [facility] BUN 34(H) 6 - 25 mg/dL [facility] Creatinine 0.95 0.60 - 1.10 mg/dL [facility] Glucose 125 70 - 199 mg/dL [facility] Comment: Interpretive Data Fasting glucose >/= 126 [...] classification and Diagnosis of Diabetes Diabetes Care 2021; 46: S19-S40. Current interpretive data was last revised 2022. Calcium 8.8 8.5 - 10.3 mg/dL [facility] Bilirubin, total 0.6 0.1 - 1.2 mg/dL [facility] Protein, pl 5.4(L) 6.5 - 8.5 g/dL [facility] Albumin 3.2(L) 3.5 - 5.0 g/dL [facility] Alk phos 87 40 - 130 Units/L [facility] ALT 682(H) 7 - 45 Units/L [facility] AST 136(H) 10 - 45 Units/L [facility] Blood 12/21/2024 12:0 3 AM CDT 12/21/2024 12:19 AM CDT us Kika Simpson DNP LAB BLOOD ORDERABLES Fi nal Result [facility] Department [place] [address] * XR Chest 1 View (12/20/2024 8:52 PM CDT) Anatomical Region Laterality Modality Body, Chest N/A Digital Radiogra phy 12/20/2024 8:58 PM CDT Impressions 12/20/2024 8:58 PM CDT Comparison to 12/19/2024. Gastric tube terminates below the diaphragm outside the [id number]. Aortic valve replacement suboptimally evaluated. Transvenous pacer from the right internal jugular vein projects over the expected area of the right ventricle. Median sternotomy. Moderate cardiomegaly, unchanged. Slight interval worsening of the small left pleural effusion and hazy airspace opacities within the left lung base, favor to represent atelectasis. Superimposed or developing infection is not entirely excluded. No right-sided pleural effusion. No pneumothorax. Electronically signed by: Sunny Child M.D. Narrative 12/20/2024 8:58 PM CDT EXAMINATION: 1 view chest radiograph Procedure Note Sunny Child MD - 12/20/2024 EXAMINATION: 1 view chest radiograph IMPRESSION: Comparison to 12/19/2024. Gastric tube terminates below the diaphragm outside the [id number]. Aortic valve replacement suboptimally evaluated. Transvenous pacer from the right internal jugular vein projects over the expected area of the right ventricle. Median sternotomy. Moderate cardiomegaly, unchanged. Slight interval worsening of the small left pleural effusion and hazy airspace opacities within the left lung base, favor to represent atelectasis. Superimposed or developing infection is not entirely excluded. No right-sided pleural effusion. No pneumothorax. Electronically signed by: Sunny Child M.D. us Ruthann Cox NP IMG XR PROCEDURES Fin al Result * Critical Care (12/20/2024 8:10 PM CDT) Narrative Evens Barajas MD PhD - 12/20/2024 8:10 PM CDT Evens Barajas MD PhD 12/21/2024 6:26 AM Critical Care Performed by: Ruthann Cox NP Authorized by: Ruthann Cox NP CRITICAL CARE: Team: 83 CTICU Shift: PM Level of Billing: Critical Care My time spent with this patient was 75 minutes: Critical Provider Statement: I have seen and examined the patient on this day of service. I have reviewed and confirmed the history, physical exam, laboratory and radiologic data as documented in the signed ICU note. I have reviewed and discussed my treatment plan with the ICU team and other medical/oncology consultant staff, making frequent assessments and decisions regarding this patient's complex medical care. Critical Care time was exclusive of time spent performing separately billed procedures, treating other patients, and teaching. This time was in addition to and separate from critical care provided by other practitioners in my group on this day of service. Critical Care was necessary to treat or prevent imminent or life-threatening deterioration of the following conditions: I spent time reviewing and interpreting data from bedside monitors, laboratory results, and imaging, I spent time discussing the management of this critically ill patient with consultants and the medical staff and I spent time documenting in the medical record us Ruthann Cox EXPORT SALES ASSISTANT IN CLINIC/BEDSIDE ORD ERABLES Final Result * POCT glucose (12/20/2024 8:01 PM CDT) Glucose, POC 111 70 - 199 mg/dL Blood 12/20/2024 8:01 PM CDT 12/20/2024 8:01 PM CDT us Indiana Mortensen MD LAB POCT ORDERABLES - DEVICE Final Result Performing Organization Address City/[facility]/ZIP Co de Phone Number [facility] [place] [address] * Potassium, whole blood (12/20/2024 3:49 PM CDT) Potassium, bld 4.0 3.3 - 4.9 mmol/L Blood 12/20/2024 3:49 PM CDT 12/20/2024 3:56 PM CDT us Angela Cox NP LAB BLOOD ORDERABLES Final Result Performing Organization Address [facility]/ZIP Co de Phone Number [facility] [place] [address] * POCT glucose (12/20/2024 3:48 PM CDT) Glucose, POC 134 70 - 199 mg/dL Blood 12/20/2024 3:48 PM CDT 12/20/2024 3:48 PM CDT us Indiana Mortensen MD LAB POCT ORDERABLES - DEVICE Final Result Performing Organization Address City/[facility]/ZIP Co de Phone Number [facility] [place] [address] * (ABNORMAL) POCT glucose (12/20/2024 3:44 PM CDT) Glucose, POC 371(H) 70 - 199 mg/dL Blood 12/20/2024 3:44 PM CDT 12/20/2024 3:44 PM CDT Indiana Mortensen MD LAB POCT ORDERABLES - DEVICE Final Result Performing Organization Address [facility] Co de Phone Number [facility] [place] [address] * (ABNORMAL) POCT glucose (12/20/2024 3:43 PM CDT) Glucose, POC 364(H) 70 - 199 mg/dL Blood 12/20/2024 3:43 PM CDT 12/20/2024 3:43 PM CDT Indiana Mortensen MD LAB POCT ORDERABLES - DEVICE Final Result Performing Organization Address [facility] de Phone Number [facility] [place] [address] * (ABNORMAL) POCT glucose (12/20/2024 3:42 PM CDT) Glucose, POC 367(H) 70 - 199 mg/dL Blood 12/20/2024 3:42 PM CDT 12/20/2024 3:42 PM CDT Indiana Mortensen MD LAB POCT ORDERABLES - DEVICE Final Result Performing Organization Address [facility] de Phone Number [facility] [place] [address] * POCT glucose (12/20/2024 11:11 AM CDT) Glucose, POC 113 70 - 199 mg/dL Blood 12/20/2024 11:1 1 AM CDT 12/20/2024 11:11 AM CDT Indiana Mortensen MD LAB POCT ORDERABLES - DEVICE Final Result Performing Organization Address [facility] de Phone Number [facility] [place] [address] * POCT glucose (12/20/2024 8:12 AM CDT) Glucose, POC 133 70 - 199 mg/dL Blood 12/20/2024 8:12 AM CDT 12/20/2024 8:12 AM CDT Indiana Mortensen MD LAB POCT ORDERABLES - DEVICE Final Result Performing Organization Address [facility] de Phone Number [facility] [place] [address] * Potassium, whole blood (12/20/2024 8:00 AM CDT) Potassium, bld 4.2 3.3 - 4.9 mmol/L Blood 12/20/2024 8:00 AM CDT 12/20/2024 8:24 AM CDT Angela Cox NP LAB BLOOD ORDERABLES Final Result Performing Organization Address [facility] [place] [address] * Potassium, whole blood (12/20/2024 6:21 AM CDT) Potassium, bld 4.2 3.3 - 4.9 mmol/L Blood 12/20/2024 6:21 AM CDT 12/20/2024 6:26 AM CDT Angela Magdalene Griesbaum EXPORT SALES ASSISTANT LAB BLOOD ORDERABLES Final Result Performing Organization Address [facility] Co de Phone Number ALEX [facility] Department [place] [address] * eGFR (12/19/2024 11:17 PM CDT) Pathologist [facility] eGFR 66 >=60 mL/min/1. 73 m2 Comment: Interpretive Data [...] interpretive data was last reviewed 2021. Blood 12/19/2024 11:1 7 PM CDT 12/19/2024 11:57 PM CDT Marian Rodrigues EXPORT SALES ASSISTANT LAB BLOOD ORDERABLES Brenda l Result Performing Organization Address [facility] Co de Phone Number [facility] [place] [address] * (ABNORMAL) CBC without differential (12/19/2024 11:17 PM CDT) Pathologist [facility] WBC 16.84(H) 3.80 - 9.90 K/cumm Hgb 7.9(L) 11.9 - 15.5 g/dL [facility] Hct 24.5(L) 35.6 - 45.5 % [facility] Plt 208 150 - 400 K/cumm [facility] MPV 9.5 9.1 - 12.3 fL [facility] RBC 2.66(L) 3.90 - 5.20 M/cumm [facility] MCV 92.1 81.3 - 96.4 fL [facility] MCH 29.7 27.1 - 33.3 pg [facility] MCHC 32.2(L) 32.3 - 35.7 g/dL [facility] RDW CV 15.6(H) 11.1 - 14.9 % [facility] RDW SD 49.4(H) 35.7 - 48.1 fL [facility] NRBC abs 0.14(H) 0.00 - 0.01 K/cumm [facility] Blood 12/19/2024 11:1 7 PM CDT 12/19/2024 11:57 PM CDT Kika Simpson [facility] LAB BLOOD ORDERABLES Fi nal Result Performing Organization Address City/[facility]/ZIP Co de Phone Number [facility] Department [place] [address] * Phosphorus (12/19/2024 11:17 PM CDT) Pathologist [facility] Phosphorus, pl 4.4 2.3 - 4.5 mg/dL Blood 12/19/2024 11:1 7 PM CDT 12/19/2024 11:52 PM CDT Kika Simpson [facility] LAB BLOOD ORDERABLES Fi nal Result [facility] [place] [address] * Magnesium (12/19/2024 11:17 PM CDT) Pathologist [facility] Magnesium 2.1 1.4 - 2.5 mg/dL Blood 12/19/2024 11:1 7 PM CDT 12/19/2024 11:52 PM CDT Kika Trevinowesly Simpson DNP LAB BLOOD ORDERABLES Fi nal Result Performing Organization Address [facility] Co de Phone Number [facility] [place] [address] * Ammonia (12/19/2024 11:17 PM CDT) Pathologist [facility] Ammonia 31 <=50 mcmol/L Blood 12/19/2024 11:1 7 PM CDT 12/19/2024 11:46 PM CDT Chapito Rodriguez EXPORT SALES ASSISTANT LAB BLOOD ORDERABLES Final Re sult Performing Organization Address [facility] [place] [address] * Vancomycin level random (12/19/2024 11:17 PM CDT) [facility] Vancomycin random 6.5 mcg/mL Comment: Interpretive Data No reference ranges have been established for random drug levels. Current Interpretive Data was last revised on 2020. Blood 12/19/2024 11:1 7 PM CDT 12/19/2024 11:52 PM CDT Indiana Mortensen MD LAB BLOOD ORDERABLES Final Re sult Performing Organization Address [facility] Co de Phone Number [facility] [place] [address] * (ABNORMAL) Comprehensive metabolic panel (12/19/2024 11:17 PM CDT) [facility] Sodium 141 135 - 145 mmol/L Potassium, pl 3.8 3.3 - 4.9 mmol/L [facility] Chloride 105 97 - 110 mmol/L [facility] CO2 27 22 - 32 mmol/L [facility] Anion gap 9 2 - 15 mmol/L [facility] BUN 32(H) 6 - 25 mg/dL [facility] Creatinine 0.97 0.60 - 1.10 mg/dL [facility] Glucose 123 70 - 199 mg/dL [facility] Comment: Interpretive Data Fasting glucose >/= 126 [...] classification and Diagnosis of Diabetes Diabetes Care 2021; 46: S19-S40. Current interpretive data was last revised 2022. Calcium 8.8 8.5 - 10.3 mg/dL [facility] Bilirubin, total 0.8 0.1 - 1.2 mg/dL [facility] Protein, pl 5.5(L) 6.5 - 8.5 g/dL [facility] Albumin 3.1(L) 3.5 - 5.0 g/dL [facility] Alk phos 82 40 - 130 Units/L [facility] ALT 904(H) 7 - 45 Units/L [facility] AST 273(H) 10 - 45 Units/L [facility] Blood 12/19/2024 11:1 7 PM CDT 12/19/2024 11:52 PM CDT us Kika Simpson [facility] LAB BLOOD ORDERABLES Fi nal Result Performing Organization Address City/[facility]/ZIP Co de Phone Number [facility] Department [place] [address] * POCT glucose (12/19/2024 11:16 PM CDT) [facility] Signature Glucose, POC 136 70 - 199 mg/dL Blood 12/19/2024 11:1 6 PM CDT 12/19/2024 11:16 PM CDT us Indiana Mortensen MD LAB POCT ORDERABLES - DEVICE Final Result Performing Organization Address [facility]/State/ZIP Co de Phone Number [facility] Department [place] [address] * POCT glucose (12/19/2024 8:12 PM CDT) Glucose, POC 134 70 - 199 mg/dL Blood 12/19/2024 8:12 PM CDT 12/19/2024 8:12 PM CDT us Indiana Mortensen MD LAB POCT ORDERABLES - DEVICE Final Result [facility] Department [place] [address] * XR Chest 1 View (12/19/2024 8:05 PM CDT) Anatomical Region Laterality Modality Body, Chest N/A Digital Radiogra phy 12/19/2024 8:37 PM CDT Impressions 12/19/2024 8:37 PM CDT The current study is compared with the prior radiograph dated earlier film same date 9:04 AM. Sternal plates are present. Patient status post aortic valve replacement. Single pacer lead overlies right ventricle. A feeding tube extends below the level of the hemidiaphragm . A left-sided introducer catheter is present. The heart and mediastinal contours are stable.. There is no pneumothorax.. Small effusions are present. Moderate severity pulmonary edema slightly worse than on the prior study. Contrast is again seen in the stomach. Electronically signed by: Shala Eldridge M.D. Narrative 12/19/2024 8:37 PM CDT EXAMINATION: 1 view chest radiograph Procedure Note Shala Eldridge MD - 12/19/2024 EXAMINATION: 1 view chest radiograph IMPRESSION: The current study is compared with the prior radiograph dated earlier film same date 9:04 AM. Sternal plates are present. Patient status post aortic valve replacement. Single pacer lead overlies right ventricle. A feeding tube extends below the level of the hemidiaphragm . A left-sided introducer catheter is present. The heart and mediastinal contours are stable.. There is no pneumothorax.. Small effusions are present. Moderate severity pulmonary edema slightly worse than on the prior study. Contrast is again seen in the stomach. Electronically signed by: Shala Eldridge M.D. Alecia Acosta EXPORT SALES ASSISTANT IMG XR PROCEDURES Final Result * Critical Care (12/19/2024 6:45 PM CDT) Narrative Evens Barajas MD PhD - 12/19/2024 6:45 PM CDT Evens Barajas MD PhD 12/20/2024 6:52 AM Critical Care Performed by: Ruthann Cox NP Authorized by: Ruthann Cox NP CRITICAL CARE: Team: 83 CTICU Shift: PM Level of Billing: Critical Care My time spent with this patient was 75 minutes: Critical Provider Statement: I have seen and examined the patient on this day of service. I have reviewed and confirmed the history, physical exam, laboratory and radiologic data as documented in the signed ICU note. I have reviewed and discussed my treatment plan with the ICU team and other medical/oncology consultant staff, making frequent assessments and decisions regarding this patient's complex medical care. Critical Care time was exclusive of time spent performing separately billed procedures, treating other patients, and teaching. This time was in addition to and separate from critical care provided by other practitioners in my group on this day of service. Critical Care was necessary to treat or prevent imminent or life-threatening deterioration of the following conditions: I spent time reviewing and interpreting data from bedside monitors, laboratory results, and imaging, I spent time discussing the management of this critically ill patient with consultants and the medical staff and I spent time documenting in the medical record Ruthann Cox EXPORT SALES ASSISTANT IN CLINIC/BEDSIDE ORD ERABLES Final Result * Potassium, whole blood (12/19/2024 6:19 PM CDT) Potassium, bld 3.6 3.3 - 4.9 mmol/L Blood 12/19/2024 6:19 PM CDT 12/19/2024 6:52 PM CDT us Angela Cox EXPORT SALES ASSISTANT LAB BLOOD ORDERABLES Final Result [facility] of Laboratories [place] [address] * (ABNORMAL) Blood gas, arterial (12/19/2024 6:19 PM CDT) Pathologist [facility] pH, Art 7.46(H) 7.35 - 7.45 PCO2, Arterial 34(L) 35 - 45 mmHg [facility] PO2, Arterial 229(H) 83 - 108 mmHg [facility] HCO3 Art (Calculated) 25 20 - 30 mmol/L [facility] BE, art 1 mmol/L [facility] Comment: Interpretive Data No Reference Range Established Current Interpretive Data was last revised on 2017 O2 Sat Art (Measured) 100(H) 90 - 95 % [facility] Blood 12/19/2024 6:19 PM CDT 12/19/2024 6:52 PM CDT Narrative [facility] - 12/19/2024 6:56 PM CDT Respiratory distress or poor pulse ox waveform (currently w/ moving) us Ignacio Brown EXPORT SALES ASSISTANT LAB BLOOD ORDERABLES Final Result Performing Organization Address [facility] Co de Phone Number [facility] [place] [address] * POCT glucose (12/19/2024 3:41 PM CDT) Glucose, POC 124 70 - 199 mg/dL Blood 12/19/2024 3:41 PM CDT 12/19/2024 3:41 PM CDT Indiana Mortensen MD LAB POCT ORDERABLES - DEVICE Final Result Performing Organization Address City/[facility]/ZIP Co de Phone Number [facility] Department [place] [address] * US Vein Duplex Upper Extremity Bilateral Complete (12/19/2024 12:08 PM CDT) Anatomical Region Laterality Modality Vascular Bilateral Ultrasound 12/19/2024 9:32 AM CDT Narrative 12/19/2024 1:41 PM CDT [facility] - Department of Vascular Surgery, Vascular Laboratory [address] [place] [address] Upper Extremity Venous Ultrasound Report Patient Name: ADI FLOWERS : 1960 (64y 1m) Study Date: 12/19/2024 9:32:10 AM Gender: F Tech: Location: [id number] Ref Provider: CHAPITO RODRIGUEZ Quality: Technically difficult Order Provider: CHAPITO RODRIGUEZ PROCEDURES: Vascular Report: Venous Duplex imaging was performed bilaterally in the upper extremities. The internal jugular, subclavian and axillary veins were evaluated for patency, spontaneity and phasicity with Doppler, compression and augmentation maneuvers. The brachial, basilic and cephalic veins were also evaluated with compression maneuvers. INDICATIONS: Localized edema. FINDINGS: Performing Childhood Teacher: Adeola Davis RDMS, RVT. Right: Venous Doppler signals in the right upper extremity are within normal limits for spontaneity and phasicity; normal response to compression maneuvers. No evidence of superficial vein thrombus in the right upper extremity. Left: Venous Doppler signals in the left upper extremity are within normal limits for spontaneity and phasicity; normal response to compression maneuvers. Positive for superficial vein thrombus in the left upper extremity. Superficial veins involved include the mid-elbow cephalic vein. Comments: Unable to image bilateral internal jugular veins due to central lines and pacemaker with bandaging on neck. The right cephalic vein at elbow could not be visualized due to A-line and bandaging. Technically difficult due to combative patient refusing to be still for exams. Provider Notification: Results given directly to Chapito Frazier NP and JUANITA Fonseca on the above date at 9:52am. CONCLUSIONS: 1. No evidence of acute deep or superficial vein thrombosis in the right upper extremity. 2. No evidence of acute deep vein thrombosis in the left upper extremity. 3. Superficial vein thrombus in the left upper extremity. 4. Bilateral internal jugular veins could not be assessed. HISTORY: htn. PREVIOUS STUDIES: No previous studies for comparison. DISCLAIMER: The study images and the final report will be retained in the patient chart by the Vascular Laboratory for the legally required time period. This chart constitutes the legal record of any testing performed. ATTESTATION: I have reviewed and interpreted the pertinent images and measurements of this study. I attest to the conclusions in the final report that is provided above. Electronically Signed By: Ravinder Buitrago MD [facility] [phone] 12/19/2024 1:38:48 PM CDT Procedure Note Ravinder Buitrago MD - 12/19/2024 [facility] - Department of Vascular Surgery,Vascular Laboratory [address] [place] [address] Upper Extremity Venous Ultrasound Report Patient Name: ADI FLOWERS : 1960 (64y 1m) Study Date: 12/19/2024 9:32:10 AM Gender: F Tech: Location: [id number] Ref Provider: CHAPITO RODRIGUEZ Quality: Technically difficult Order Provider: CHAPITO RODRIGUEZ PROCEDURES: Vascular Report: Venous Duplex imaging was performed bilaterally in the upper extremities.The internal jugular, subclavian and axillary veins were evaluated for patency,spontaneity and phasicity with Doppler, compression and augmentation maneuvers. Thebrachial, basilic and cephalic veins were also evaluated with compression maneuvers. INDICATIONS: Localized edema. FINDINGS: Performing Childhood Teacher: Adeola Davis RDMS, RVT. Right: Venous Doppler signals in the right upper extremity are within normallimits for spontaneity and phasicity; normal response to compression maneuvers. Noevidence of superficial vein thrombus in the right upper extremity. Left: Venous Doppler signals in the left upper extremity are within normallimits for spontaneity and phasicity; normal response to compression maneuvers.Positive for superficial vein thrombus in the left upper extremity. Superficial veinsinvolved include the mid-elbow cephalic vein. Comments: Unable to image bilateral internal jugular veins due to central lines andpacemaker with bandaging on neck. The right cephalic vein at elbow could not be visualized due to A-line andbandaging. Technically difficult due to combative patient refusing to be still forexams. Provider Notification: Results given directly to Chapito Frazier NP and JUANITA Fonseca on the abovedate at 9:52am. CONCLUSIONS: 1. No evidence of acute deep or superficial vein thrombosis in the rightupper extremity. 2. No evidence of acute deep vein thrombosis in the left upperextremity. 3. Superficial vein thrombus in the left upper extremity. 4. Bilateral internal jugular veins could not be assessed. HISTORY: htn. PREVIOUS STUDIES: No previous studies for comparison. DISCLAIMER: The study images and the final report will be retained in the patientchart by the Vascular Laboratory for the legally required time period. This chartconstitutes the legal record of any testing performed. ATTESTATION: I have reviewed and interpreted the pertinent images and measurements ofthis study. I attest to the conclusions in the final report that is provided above. Electronically Signed By: Ravinder Buitrago MD [facility] [phone] 12/19/2024 1:38:48 PM CDT us Thoa Anna Rodriguez EXPORT SALES ASSISTANT IMG US PROCEDURES Final Resul t * US Vein Duplex Lower Extremity Bilateral Complete (12/19/2024 12:07 PM CDT) Anatomical Region Laterality Modality Vascular Bilateral Ultrasound 12/19/2024 9:12 AM CDT Narrative 12/19/2024 1:42 PM CDT [facility] - Department of Vascular Surgery, Vascular Laboratory [address] [place] [address] Lower Extremity Venous Ultrasound Report Patient Name: ADI FLOWERS : 1960 (64y 1m) Study Date: 12/19/2024 9:12:22 AM Gender: F Tech: [place] Location: [id number] Ref Provider: CHAPITO RODRIGUEZ Quality: Technically difficult Order Provider: CHAPITO RODRIGUEZ PROCEDURES: Vascular Report: Venous Duplex imaging was performed bilaterally in the lower extremities. The common femoral, femoral, popliteal, posterior tibial, peroneal veins were evaluated for patency, spontaneity and phasicity with Doppler, compression and augmentation maneuvers. Great saphenous vein proximal at the junction was evaluated with compression maneuvers. INDICATIONS: Intermittent fever. FINDINGS: Performing Childhood Teacher: Adeola aDvis, PEDRO, RVT. Right: Duplex scan reveals dilated vein with echogenic, intraluminal, non-compressible material consistent with acute deep vein thrombosis in the right lower extremity. Deep veins involved include the right peroneal veins. All other evaluated veins on the right are patent. No evidence of superficial vein thrombus on the right. Left: Venous Doppler signals in the left lower extremity are within normal limits for spontaneity and phasicity and respond normally to augmentation maneuvers. No evidence of deep vein thrombus by duplex, proximal to the calf. No evidence of superficial vein thrombus on the left. Comments: Technically difficult and limited study due to patient`s inability to cooperate. Patient was aggressive and combative. Provider Notification: Results given directly to Chapito Guillermo NP and JUANITA Fonseca on the above date at 9:52am. CONCLUSIONS: 1. There is acute deep vein thrombosis involving vein(s) as noted above in the right lower extremity. 2. There is no evidence of acute deep vein thrombosis on the left. Noninvasive venous studies cannot rule out isolated calf vein obstruction. HISTORY: htn. PREVIOUS STUDIES: No previous studies for comparison. DISCLAIMER: The study images and the final report will be retained in the patient chart by the Vascular Laboratory for the legally required time period. This chart constitutes the legal record of any testing performed. ATTESTATION: I have reviewed and interpreted the pertinent images and measurements of this study. I attest to the conclusions in the final report that is provided above. Electronically Signed By: Ravinder Buitrago MD [facility] [phone] 12/19/2024 1:40:18 PM CDT Procedure Note Ravinder Buitrago MD - 12/19/2024 [facility] - Department of Vascular Surgery,Vascular Laboratory [address] [place] [id number] Lower Extremity Venous Ultrasound Report Patient Name: ADI FLOWERS : 1960 (64y 1m) Study Date: 12/19/2024 9:12:22 AM Gender: F Tech: [place] Location: [id number] Ref Provider: CHAPITO RODRIGUEZ Quality: Technically difficult Order Provider: CHAPITO RODRIGUEZ PROCEDURES: Vascular Report: Venous Duplex imaging was performed bilaterally in the lower extremities.The common femoral, femoral, popliteal, posterior tibial, peroneal veins wereevaluated for patency, spontaneity and phasicity with Doppler, compression and augmentationmaneuvers. Great saphenous vein proximal at the junction was evaluated with compressionmaneuvers. INDICATIONS: Intermittent fever. FINDINGS: Performing Childhood Teacher: Adeola Davis RDMS, T. Right: Duplex scan reveals dilated vein with echogenic, intraluminal,non-compressible material consistent with acute deep vein thrombosis in the right lower extremity.Deep veins involved include the right peroneal veins. All other evaluated veins onthe right are patent. No evidence of superficial vein thrombus on the right. Left: Venous Doppler signals in the left lower extremity are within normallimits for spontaneity and phasicity and respond normally to augmentation maneuvers.No evidence of deep vein thrombus by duplex, proximal to the calf. No evidence ofsuperficial vein thrombus on the left. Comments: Technically difficult and limited study due to patient`s inability tocooperate. Patient was aggressive and combative. Provider Notification: Results given directly to Chapito Guillermo NP and JUANITA Fonseca on the abovedate at 9:52am. CONCLUSIONS: 1. There is acute deep vein thrombosis involving vein(s) as noted above inthe right lower extremity. 2. There is no evidence of acute deep vein thrombosis on the left.Noninvasive venous studies cannot rule out isolated calf vein obstruction. HISTORY: htn. PREVIOUS STUDIES: No previous studies for comparison. DISCLAIMER: The study images and the final report will be retained in the patientchart by the Vascular Laboratory for the legally required time period. This chartconstitutes the legal record of any testing performed. ATTESTATION: I have reviewed and interpreted the pertinent images and measurements ofthis study. I attest to the conclusions in the final report that is provided above. Electronically Signed By: Ravinder Buitrago MD [facility] [phone] 12/19/2024 1:40:18 PM CDT us Chapito Rodriguez EXPORT SALES ASSISTANT IMG US PROCEDURES Final Resul t * Potassium, whole blood (12/19/2024 12:06 PM CDT) Potassium, bld 3.9 3.3 - 4.9 mmol/L Blood 12/19/2024 12:0 6 PM CDT 12/19/2024 1:36 PM CDT us Angela Cox EXPORT SALES ASSISTANT LAB BLOOD ORDERABLES Final Result [facility] Department [place] [address] * (ABNORMAL) Blood gas, arterial (12/19/2024 12:06 PM CDT) pH, Art 7.44 7.35 - 7.45 PCO2, Arterial 35 35 - 45 mmHg [facility] PO2, Arterial 243(H) 83 - 108 mmHg [facility] HCO3 Art (Calculated) 24 20 - 30 mmol/L [facility] BE, art 0 mmol/L [facility] Comment: Interpretive Data No Reference Range Established Current Interpretive Data was last revised on 2017 O2 Sat Art (Measured) 100(H) 90 - 95 % [facility] Blood 12/19/2024 12:0 6 PM CDT 12/19/2024 1:36 PM CDT Narrative [facility] - 12/19/2024 1:44 PM CDT Respiratory distress or poor pulse ox waveform (currently w/ moving) us Ignacio Brown NP LAB BLOOD ORDERABLES Final Result Performing Organization Address City/[facility]/ZIP Co de Phone Number [facility] Department [place] [address] * POCT glucose (12/19/2024 12:05 PM CDT) [facility] Signature Glucose, POC 146 70 - 199 mg/dL Blood 12/19/2024 12:0 5 PM CDT 12/19/2024 12:05 PM CDT us Indiana Mortensen MD LAB POCT ORDERABLES - DEVICE Final Result Performing Organization Address City/[facility] Co de Phone Number [facility] Department [place] [address] * XR Chest 1 View (12/19/2024 9:09 AM CDT) Anatomical Region Laterality Modality Body, Chest N/A Digital Radiogra phy 12/19/2024 11:4 2 AM CDT Impressions 12/19/2024 11:50 AM CDT First exam: Sternal plates. Aortic valve replacement. 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 Left internal jugular sheath in place. Feeding tube courses below the left hemidiaphragm. Mild pulmonary edema. Trace right and small left pleural effusions with atelectasis. No pneumothorax. Stable enlarged cardiac silhouette. Second exam: No significant change compared to the 1st exam. Dictated by: Kristina Diaz MD The radiology attending physician has personally reviewed this study, and had reviewed and/or edited this written report and agrees with it. Electronically signed by: Shala Eldridge M.D. Narrative 12/19/2024 11:50 AM CDT Examination: 2 portable chests 1. Chest one view portable 12/18/2024 7:31 PM 2. Chest one view portable 12/19/2024 9:04 AM COMPARISON: 12/18/2024 10:22 AM Procedure Note Shala Eldridge MD - 12/19/2024 Examination: 2 portable chests 1. Chest one view portable 12/18/2024 7:31 PM 2. Chest one view portable 12/19/2024 9:04 AM COMPARISON: 12/18/2024 10:22 AM IMPRESSION: First exam: Sternal plates. Aortic valve replacement. 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 Left internal jugular sheath in place. Feeding tube courses below the left hemidiaphragm. Mild pulmonary edema. Trace right and small left pleural effusions with atelectasis. No pneumothorax. Stable enlarged cardiac silhouette. Second exam: No significant change compared to the 1st exam. Dictated by: Kristina Diaz MD The radiology attending physician has personally reviewed this study, and had reviewed and/or edited this written report and agrees with it. Electronically signed by: Shala Eldridge M.D. us Chapito Rodriguez EXPORT SALES ASSISTANT IMG XR PROCEDURES Final Resul t * POCT glucose (12/19/2024 8:24 AM CDT) [facility] Signature Glucose, POC 141 70 - 199 mg/dL Blood 12/19/2024 8:24 AM CDT 12/19/2024 8:24 AM CDT Indiana Mortensen MD LAB POCT ORDERABLES - DEVICE Final Result ALEX [facility] Department [place] [address] * Critical Care (12/19/2024 7:27 AM CDT) Narrative Esdras Quevedo MD - 12/19/2024 7:27 AM CDT Esdras Quevedo MD 01/05/2025 6:18 PM Critical Care Performed by: Chapito Rodriguez NP Authorized by: Chapito Rodriguez NP CRITICAL CARE: Team: 83 CTICU Shift: AM Level of Billing: Critical Care My time spent with this patient was 75 minutes: Critical Provider Statement: I have seen and examined the patient on this day of service. I have reviewed and confirmed the history, physical exam, laboratory and radiologic data as documented in the signed ICU note. I have reviewed and discussed my treatment plan with the ICU team and other medical/oncology consultant staff, making frequent assessments and decisions regarding this patient's complex medical care. Critical Care time was exclusive of time spent performing separately billed procedures, treating other patients, and teaching. This time was in addition to and separate from critical care provided by other practitioners in my group on this day of service. Critical Care was necessary to treat or prevent imminent or life-threatening deterioration of the following conditions: I spent time reviewing and interpreting data from bedside monitors, laboratory results, and imaging, I spent time discussing the management of this critically ill patient with consultants and the medical staff and I spent time documenting in the medical record Chapito Rodriguez NP IN CLINIC/BEDSIDE ORDERABLES Final Result * (ABNORMAL) POC Blood Gas and Chemistries, Arterial - (12/19/2024 6:58 AM CDT) pH, Art POC 7.47(H) 7.35 - 7.45 pCO2, Art POC 31(L) 35 - 45 mmHg [facility] pO2, Art POC 84 83 - 108 mmHg [facility] Na, POC 140 135 - 145 mmol/L [facility] K POC 3.4 3.3 - 4.9 mmol/L [facility] Comment: Interpretive Data Not all point of care methods assess for hemolysis. Confirm with instrument and retest K+ if not consistent with clinical signs and symptoms. Current Interpretive Data was last revised on 2023. Cl, POC 111(H) 97 - 110 mmol/L [facility] Ionized Ca, POC 4.51 4.50 - 5.10 mg/dL [facility] Glucose, POC 140 70 - 199 mg/dL [facility] Lactate POC 1.0 0.7 - 2.0 mmol/L [facility] SO2 (chandra) arterial 98(H) 90 - 95 % [facility] Base excess, POC -0.8 mmol/L [facility] HCO3, Art POC 23 20 - 30 mmol/L [facility] Hct, POC 24.0(L) 36.3 - 45.3 % [facility] Total Hb, POC 8.1(L) 11.9 - 15.5 g/dL [facility] Blood 12/19/2024 6:58 AM CDT 12/19/2024 6:58 AM CDT Indiana Mortensen MD LAB POCT ORDERABLES - DEVICE Final Result Performing Organization Address City/[facility]/ZIP Co de Phone Number [facility] [place] [address] * POCT glucose (12/19/2024 4:21 AM CDT) Glucose, POC 148 70 - 199 mg/dL Blood 12/19/2024 4:21 AM CDT 12/19/2024 4:21 AM CDT Indiana Mortensen MD LAB POCT ORDERABLES - DEVICE Final Result [facility] [place] [address] * Potassium, whole blood (12/18/2024 11:54 PM CDT) Potassium, bld 4.3 3.3 - 4.9 mmol/L Blood 12/18/2024 11:5 4 PM CDT 12/19/2024 12:07 AM CDT Angela Cox EXPORT SALES ASSISTANT LAB BLOOD ORDERABLES Final Result Performing Organization Address City/[facility] Co de Phone Number [facility] Department [place] [address] * eGFR (12/18/2024 11:54 PM CDT) eGFR 69 >=60 mL/min/1. 73 m2 Comment: Interpretive Data [...] interpretive data was last reviewed 2021. Blood 12/18/2024 11:5 4 PM CDT 12/19/2024 12:10 AM CDT Marian Rodrigues EXPORT SALES ASSISTANT LAB BLOOD ORDERABLES Brenda l Result Performing Organization Address City/[facility]/ZIP Co de Phone Number [facility] Department [place] [address] * (ABNORMAL) CBC without differential (12/18/2024 11:54 PM CDT) WBC 20.35(H) 3.80 - 9.90 K/cumm Hgb 7.8(L) 11.9 - 15.5 g/dL [facility] Hct 23.3(L) 35.6 - 45.5 % [facility] Plt 211 150 - 400 K/cumm [facility] MPV 9.4 9.1 - 12.3 fL [facility] RBC 2.58(L) 3.90 - 5.20 M/cumm [facility] MCV 90.3 81.3 - 96.4 fL [facility] MCH 30.2 27.1 - 33.3 pg [facility] MCHC 33.5 32.3 - 35.7 g/dL [facility] RDW CV 15.0(H) 11.1 - 14.9 % [facility] RDW SD 46.8 35.7 - 48.1 fL [facility] NRBC abs 0.26(H) 0.00 - 0.01 K/cumm [facility] Blood 12/18/2024 11:5 4 PM CDT 12/19/2024 12:11 AM CDT Kika Simpson DNP LAB BLOOD ORDERABLES Fi nal Result Performing Organization Address City/[facility]/ZIP Co de Phone Number [facility] [place] [address] * Type and screen (12/18/2024 11:54 PM CDT) ABO Rh B Negative Sarah, indirect Negative [facility] Blood 12/18/2024 11:5 4 PM CDT 12/19/2024 12:14 AM CDT Narrative [facility] - 12/19/2024 1:16 AM CDT Has the patient had Daratumumab or Isatuximab in the past 6 months?->Unknown Indiana Mortensen MD LAB BLOOD BANK TEST ORDERABLE S Final Result [facility] [place] [address] * Phosphorus (12/18/2024 11:54 PM CDT) Pathologist [facility] Phosphorus, pl 3.0 2.3 - 4.5 mg/dL Blood 12/18/2024 11:5 4 PM CDT 12/19/2024 12:10 AM CDT [facility] LAB BLOOD ORDERABLES Fi nal Result Performing Organization Address City/[facility] Co de Phone Number [facility] Department [place] [address] * Magnesium (12/18/2024 11:54 PM CDT) [facility] Magnesium 2.0 1.4 - 2.5 mg/dL Blood 12/18/2024 11:5 4 PM CDT 12/19/2024 12:10 AM CDT [facility] LAB BLOOD ORDERABLES Fi nal Result Performing Organization Address [facility] de Phone Number [facility] [place] [address] * (ABNORMAL) Blood gas, arterial (12/18/2024 11:54 PM CDT) [facility] pH, Art 7.46(H) 7.35 - 7.45 PCO2, Arterial 30(L) 35 - 45 mmHg [facility] PO2, Arterial 174(H) 83 - 108 mmHg [facility] HCO3 Art (Calculated) 22 20 - 30 mmol/L [facility] BE, art -2 mmol/L [facility] Comment: Interpretive Data No Reference Range Established Current Interpretive Data was last revised on 2017 O2 Sat Art (Measured) 100(H) 90 - 95 % [facility] Blood 12/18/2024 11:5 4 PM CDT 12/19/2024 12:07 AM CDT Narrative [facility] - 12/19/2024 12:12 AM CDT Respiratory distress or poor pulse ox waveform (currently w/ moving) us Ignacio Brown NP LAB BLOOD ORDERABLES Final Result [facility] Department [place] [address] * (ABNORMAL) Comprehensive metabolic panel (12/18/2024 11:54 PM CDT) Sodium 140 135 - 145 mmol/L Potassium, pl 4.3 3.3 - 4.9 mmol/L [facility] Chloride 108 97 - 110 mmol/L [facility] CO2 23 22 - 32 mmol/L [facility] Anion gap 9 2 - 15 mmol/L [facility] BUN 33(H) 6 - 25 mg/dL [facility] Creatinine 0.94 0.60 - 1.10 mg/dL [facility] Glucose 148 70 - 199 mg/dL [facility] Comment: Interpretive Data Fasting glucose >/= 126 [...] classification and Diagnosis of Diabetes Diabetes Care 2021; 46: S19-S40. Current interpretive data was last revised 2022. Calcium 8.2(L) 8.5 - 10.3 mg/dL [facility] Bilirubin, total 0.6 0.1 - 1.2 mg/dL [facility] Protein, pl 5.4(L) 6.5 - 8.5 g/dL [facility] Albumin 3.0(L) 3.5 - 5.0 g/dL [facility] Alk phos 84 40 - 130 Units/L [facility] ALT 1,143(H) 7 - 45 Units/L [facility] AST 576(H) 10 - 45 Units/L [facility] Blood 12/18/2024 11:5 4 PM CDT 12/19/2024 12:10 AM CDT us Kika Simpson DNP LAB BLOOD ORDERABLES Fi nal Result Performing Organization Address [facility] Co de Phone Number [facility] Department [place] [address] * POCT glucose (12/18/2024 11:53 PM CDT) Glucose, POC 157 70 - 199 mg/dL Blood 12/18/2024 11:5 3 PM CDT 12/18/2024 11:53 PM CDT us Indiana Mortensen MD LAB POCT ORDERABLES - DEVICE Final Result Performing Organization Address [facility] de Phone Number [facility] [place] [address] * Potassium, whole blood (12/18/2024 8:25 PM CDT) Potassium, bld 3.8 3.3 - 4.9 mmol/L Blood 12/18/2024 8:25 PM CDT 12/18/2024 8:34 PM CDT us Angela Cox EXPORT SALES ASSISTANT LAB BLOOD ORDERABLES Final Result Performing Organization Address [facility] Co de Phone Number [facility] Department [place] [address] * POCT glucose (12/18/2024 8:21 PM CDT) Glucose, POC 141 70 - 199 mg/dL Blood 12/18/2024 8:21 PM CDT 12/18/2024 8:21 PM CDT us Indiana Mortensen MD LAB POCT ORDERABLES - DEVICE Final Result Performing Organization Address [facility] Co de Phone Number [facility] Department [place] [address] * XR Chest 1 View (12/18/2024 7:38 PM CDT) Anatomical Region Laterality Modality Body, Chest N/A Computed Radiogr aphy 12/19/2024 11:4 2 AM CDT Impressions 12/19/2024 11:50 AM CDT First exam: Sternal plates. Aortic valve replacement. 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 Left internal jugular sheath in place. Feeding tube courses below the left hemidiaphragm. Mild pulmonary edema. Trace right and small left pleural effusions with atelectasis. No pneumothorax. Stable enlarged cardiac silhouette. Second exam: No significant change compared to the 1st exam. Dictated by: Kristina Diaz MD The radiology attending physician has personally reviewed this study, and had reviewed and/or edited this written report and agrees with it. Electronically signed by: Elfego Lane 12/19/2024 11:50 AM CDT Examination: 2 portable chests 1. Chest one view portable 12/18/2024 7:31 PM 2. Chest one view portable 12/19/2024 9:04 AM COMPARISON: 12/18/2024 10:22 AM Procedure Note Shala Eldridge MD - 12/19/2024 Examination: 2 portable chests 1. Chest one view portable 12/18/2024 7:31 PM 2. Chest one view portable 12/19/2024 9:04 AM COMPARISON: 12/18/2024 10:22 AM IMPRESSION: First exam: Sternal plates. Aortic valve replacement. 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 Left internal jugular sheath in place. Feeding tube courses below the left hemidiaphragm. Mild pulmonary edema. Trace right and small left pleural effusions with atelectasis. No pneumothorax. Stable enlarged cardiac silhouette. Second exam: No significant change compared to the 1st exam. Dictated by: Kristina Diaz MD The radiology attending physician has personally reviewed this study, and had reviewed and/or edited this written report and agrees with it. Electronically signed by: Shala Eldridge M.D. us Alecia Acosta NP IMG XR PROCEDURES Final Result * Critical Care (12/18/2024 5:53 PM CDT) Narrative Esdras Quevedo MD - 12/18/2024 5:53 PM CDT Esdras Quevedo MD 12/19/2024 2:23 PM Critical Care Performed by: Ignacio Brown NP Authorized by: Ignacio Brown NP CRITICAL CARE: Team: 83 CTICU Shift: PM Level of Billing: Critical Care My time spent with this patient was 55 minutes: Critical Provider Statement: I have seen and examined the patient on this day of service. I have reviewed and confirmed the history, physical exam, laboratory and radiologic data as documented in the signed ICU note. I have reviewed and discussed my treatment plan with the ICU team and other medical/oncology consultant staff, making frequent assessments and decisions regarding this patient's complex medical care. Critical Care time was exclusive of time spent performing separately billed procedures, treating other patients, and teaching. This time was in addition to and separate from critical care provided by other practitioners in my group on this day of service. Critical Care was necessary to treat or prevent imminent or life-threatening deterioration of the following conditions: I spent time reviewing and interpreting data from bedside monitors, laboratory results, and imaging, I spent time discussing the management of this critically ill patient with consultants and the medical staff and I spent time documenting in the medical record us Ignacio Brown EXPORT SALES ASSISTANT IN CLINIC/BEDSIDE ORDERABL ES Final Result * Aerobic and anaerobic culture and gram stain Pleural fluid Pleural (12/18/2024 4:19 PM CDT) Direct Specimen Exam Stain: Cytospin Gram stain shows: Few polymorphonuclear leukocytes seen. No organisms seen. Report Final Report: No growth ALEX [facility] Pleural fluid (Pleural) 12/18/2024 4:19 PM CDT 12/18/2024 5:20 PM CDT Andrew MCKEON - 12/24/2024 1:41 PM CDT Fluid specimen received. Testing performed by [facility] ([phone]) Specimens submitted from normally sterile body sites will have all bacterial morphotypes identified. Specimens that contain grossly mixed quoc and/or are from body sites that are not normally sterile will be examined for Staphylococcus aureus, Pseudomonas aeruginosa, beta-hemolytic strep, vancomycin-resistant Enterococcus, Bacteroides, Parabacteroides, Clostridium perfringens and fungus. If any of these are isolated, the organism will be reported. Current interpretive data was last revised on 2019. Josr AUGUSTIN LAB MICROBIOLOGY - GENER AL ORDERABLES Final Result ALEX [facility] Department [place] [address] * Protein, body fluid (12/18/2024 4:19 PM CDT) Specimen type, fld Pleural Body site, fld Pleural fluid, left [facility] Protein, fld 2.0 g/dL [facility] Comment: The above specimen type is not cleared for use in this method by the FDA. Analytical characteristics have been validated by the performing laboratory. No reference range established - see interpretive comments. Interpretive Data Pleural and Pericardial Fluids - Ratio of fluid to serum protein > or = 0.5 is indicative of exudate and < 0.5 of transudate. Peritoneal - Protein > or = 3.0 g/dL is indicative of exudates and < 3.0 g/dL of transudates. Reference: Yoel Textbook of Clinical Chemistry and Molecular Diagnostics, Sixth Edition. Elsevier Press. 2018. Chapter 43, Body Fluids, p. 925 Current Interpretive Data was last revised 2019. Fluid 12/18/2024 4:19 PM CDT 12/18/2024 4:47 PM CDT Josr AUGUSTIN LAB BODY FLUIDS AND STOO LS ORDERABLES Final Result ALEX [facility] Department [place] [address] * Lactate dehydrogenase, body fluid (12/18/2024 4:19 PM CDT) Specimen type, fld Pleural Body site, fld Pleural fluid, left [facility] LD, fld 323 Units/L [facility] Comment: The above specimen type is not cleared for use in this method by the FDA. Analytical characteristics have been validated by the performing laboratory. No reference range established - see interpretive comments. Interpretive Data Ratio of fluid to serum LD > or = 0.6 is indicative of exudate and < 0.6 of transudate. References: The Biochemistry of Body Fluids. Association of Clinical Biochemists in [place]. April 2009; pp 1-36. Yoel Textbook of Clinical Chemistry and Molecular Diagnostics, Sixth Edition. Elsevier Press. 2018. Chapter 43, Body Fluids, p. 925 Current Interpretive Data was last revised 2019. Fluid 12/18/2024 4:19 PM CDT 12/18/2024 4:47 PM CDT Josr AUGUSTIN LAB BODY FLUIDS AND STOO LS ORDERABLES Final Result [facility] Department [place] [address] * Transfuse RBC (12/18/2024 4:06 PM CDT) Blood Josr AUGUSTIN BLOOD TRANSFUSION ORDERA BLES Edited Result - Final [facility] Department [place] [address] * Potassium, whole blood (12/18/2024 4:00 PM CDT) Potassium, bld 3.4 3.3 - 4.9 mmol/L Blood 12/18/2024 4:00 PM CDT 12/18/2024 4:06 PM CDT Angela Cox NP LAB BLOOD ORDERABLES Final Result Performing Organization Address [facility] Co de Phone Number [facility] [place] [address] * POCT glucose (12/18/2024 3:58 PM CDT) Glucose, POC 124 70 - 199 mg/dL Blood 12/18/2024 3:58 PM CDT 12/18/2024 3:58 PM CDT Indiana Mortensen MD LAB POCT ORDERABLES - DEVICE Final Result Performing Organization Address [facility] de Phone Number [facility] Department [place] [address] * MRSA Only (Staphylococcus aureus) Culture Nasal (12/18/2024 2:22 PM CDT) Pathologist [facility] Report Final Report: Negative Nasal 12/18/2024 2:22 PM CDT 12/18/2024 3:31 PM CDT Narrative [facility] - 12/19/2024 5:03 PM CDT Testing performed by [facility] ([phone]). Marian Rodrigues NP LAB MICROBIOLOGY - GENERA L ORDERABLES Final Result Performing Organization Address [facility] de Phone Number [facility] Department [place] [address] * (ABNORMAL) POC Blood Gas and Chemistries, Arterial - (12/18/2024 11:03 AM CDT) pH, Art POC 7.41 7.35 - 7.45 pCO2, Art POC 29(L) 35 - 45 mmHg [facility] pO2, Art POC 83 83 - 108 mmHg [facility] Na, POC 139 135 - 145 mmol/L [facility] K POC 4.0 3.3 - 4.9 mmol/L [facility] Comment: Interpretive Data Not all point of care methods assess for hemolysis. Confirm with instrument and retest K+ if not consistent with clinical signs and symptoms. Current Interpretive Data was last revised on 2023. Cl, POC 110 97 - 110 mmol/L [facility] Ionized Ca, POC 4.56 4.50 - 5.10 mg/dL [facility] Glucose, POC 143 70 - 199 mg/dL [facility] Lactate POC 3.3(H) 0.7 - 2.0 mmol/L [facility] SO2 (chandra) arterial 97(H) 90 - 95 % [facility] Base excess, POC -5.5 mmol/L [facility] HCO3, Art POC 18(L) 20 - 30 mmol/L [facility] Hct, POC 23.0(L) 36.3 - 45.3 % [facility] Total Hb, POC 7.8(L) 11.9 - 15.5 g/dL [facility] Blood 12/18/2024 11:0 3 AM CDT 12/18/2024 11:03 AM CDT us Indiana Mortensen MD LAB POCT ORDERABLES - DEVICE Final Result [facility] Department [place] [address] * XR Chest 1 View (12/18/2024 10:23 AM CDT) Anatomical Region Laterality Modality Body, Chest N/A Computed Radiogr aphy 12/18/2024 10:5 8 AM CDT Impressions 12/18/2024 11:52 AM CDT Comparison with 12/17/2024. Sternal plates. Aortic valve replacement. 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 Left internal jugular sheath in place. Feeding tube courses below the left hemidiaphragm. Decreased now trace left pleural effusion. No pneumothorax. There is mild pulmonary edema again seen. Stable enlarged cardiac silhouette. Dictated by: Kristina Diaz MD The radiology attending physician has personally reviewed this study, and had reviewed and/or edited this written report and agrees with it. Electronically signed by: Shala Eldridge M.D. Narrative 12/18/2024 11:52 AM CDT EXAMINATION: 1 view chest radiograph Procedure Note Shala Eldridge MD - 12/18/2024 EXAMINATION: 1 view chest radiograph IMPRESSION: Comparison with 12/17/2024. Sternal plates. Aortic valve replacement. 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 Left internal jugular sheath in place. Feeding tube courses below the left hemidiaphragm. Decreased now trace left pleural effusion. No pneumothorax. There is mild pulmonary edema again seen. Stable enlarged cardiac silhouette. Dictated by: Kristina Diaz MD The radiology attending physician has personally reviewed this study, and had reviewed and/or edited this written report and agrees with it. Electronically signed by: Shala Eldridge M.D. Marian Hudson DNP IMG XR PROCEDURES Final Result * Thoracentesis -Left side (12/18/2024 9:33 AM CDT) Anatomical Region Laterality Modality Other Narrative Procedure Note Marian Hudson DNP - 12/18/2024 9:33 AM CDT [facility] Interventional Pulmonary Patient Name: Aid Flwoers Procedure Date: 12/18/2024 9:33 AM Date of : 1960 Admit Type: Inpatient Age: 64 Room: [address] [place] [address] Gender: Female Note Status: Finalized Procedure: L ECHO Chest, L Thoracentesis with catheter Indications: Pleural effusion Providers: Marian Hudson, ANP Referring MD: Medicines: Lidocaine 1% instilled into chest wall 10 mLSub-Q Complications: No immediate complications Procedure: Pre-Anesthesia Assessment: - The History and Physical was reviewed prior tothe procedure. The patient's medications, allergies and sensitivities have also been reviewed. - The risks and benefits of the procedure and the sedation options and risks were discussed with the patient. All questions were answered and informed consent was obtained. - Only local anesthesia, not conscious sedation,was planned for the procedure. - The heart rate, respiratory rate, oxygen saturations, blood pressure, adequacy of pulmonary ventilation, and response to care were monitored throughout the procedure. After obtaining informed consent was obtained via phone with the pts spouse, the site was prepped and thoracentesis was performed.The procedure was accomplished without difficulty. The patienttolerated the procedure well. Estimated Blood Loss: Estimated blood loss: none. Findings: > Ultrasound, chest, real time with imaging documentation: Patient was placed in an left side upposition on the proceduretable. Ultrasound evaluation of the left hemithorax was performed andrevealed a small anechoic effusion. > Thoracentesis with catheter insertion: Thoracentesis with tube insertion using an Arrow-Simpson Pleura-Seal Thoracentesis Kit (8Fr.) was then performed following ultrasound localization in the 6 th intercostal space at the midscapular line of the left hemithorax. A total of 400 ml of serosanginous fluid was recovered. The tube was then removed. Fluid was collected for the ICU team. A post procedure chest x-ray was order. Impression: - Pleural effusion - Successful therapeutic thoracentesis on the left side. - Dr. Cohen collaborated on this case. Recommendation: - Chest X-ray post-procedure. Electronically signed by Marian Hudson NP-Kat JORDI Velasquez 12/18/2024 11:10:19 AM Number of Addenda: 0 Note Initiated On: 12/18/2024 10:01 AM Marian Hudson DNP IN CLINIC/BEDSIDE ORDER ROSY Final Result * Prepare RBC: 1 Units (12/18/2024 9:00 AM CDT) Product code [id number] Unit Number [id number]- G [facility] Product Blood Type BNEG [facility] Dispense Status PRESUMED TRANSFUSED [facility] Blood 12/18/2024 9:00 AM CDT 12/18/2024 8:59 AM CDT Narrative [facility] - 12/19/2024 12:56 AM CDT Are special requirements needed? (All products are leukoreduced and CMV- safe)- >No Date required:-[id number] LRRBC # of [id number] Reasons:-Cardiovascular disease, Hgb <8 g/dL} Josr AUGUSTIN BLOOD BANK PRODUCT ORDER ROSY Final Result Performing Organization Address City/[facility]/ZIP Co de Phone Number [facility] Department [place] [address] * POCT glucose (12/18/2024 7:56 AM CDT) Glucose, POC 148 70 - 199 mg/dL Blood 12/18/2024 7:56 AM CDT 12/18/2024 7:56 AM CDT Indiana Mortensen MD LAB POCT ORDERABLES - DEVICE Final Result Performing Organization Address [facility]/ZIP Co de Phone Number [facility] Department [place] [address] * Critical Care (12/18/2024 7:39 AM CDT) Narrative Esdras Quevedo MD - 12/18/2024 7:39 AM CDT Esdras Quevedo MD 12/19/2024 2:24 PM Critical Care Performed by: Josr Norman PA Authorized by: Josr Norman PA CRITICAL CARE: Team: 83 CTICU Shift: AM Level of Billing: Critical Care My time spent with this patient was 80 minutes: Critical Provider Statement: I have seen and examined the patient on this day of service. I have reviewed and confirmed the history, physical exam, laboratory and radiologic data as documented in the signed ICU note. I have reviewed and discussed my treatment plan with the ICU team and other medical/oncology consultant staff, making frequent assessments and decisions regarding this patient's complex medical care. Critical Care time was exclusive of time spent performing separately billed procedures, treating other patients, and teaching. This time was in addition to and separate from critical care provided by other practitioners in my group on this day of service. Critical Care was necessary to treat or prevent imminent or life-threatening deterioration of the following conditions: I spent time reviewing and interpreting data from bedside monitors, laboratory results, and imaging, I spent time discussing the management of this critically ill patient with consultants and the medical staff and I spent time documenting in the medical record us Josr AUGUSTIN IN CLINIC/BEDSIDE ORDERA BLES Final Result * Vancomycin level random (12/18/2024 1:38 AM CDT) Vancomycin random 20.9 mcg/mL Comment: Interpretive Data No reference ranges have been established for random drug levels. Current Interpretive Data was last revised on 2020. Blood 12/18/2024 1:38 AM CDT 12/18/2024 2:28 AM CDT Narrative ALEX DA [facility]IL[facility] - 12/18/2024 2:53 AM CDT Draw 30 minutes before dose given. Do not hold dose us Ignacio Brown NP LAB BLOOD ORDERABLES Final Result [facility] [place] [address] * (ABNORMAL) aPTT (12/18/2024 1:20 AM CDT) aPTT 24(L) 28 - 38 sec Comment: Interpretive Data Heparin therapeutic range: 66.0 - 100.0 seconds. Range based on correlation with therapeutic heparin activity range of 0.3 - 0.7 Units/mL. Current interpretive data was last revised on 2023. Blood 12/18/2024 1:20 AM CDT 12/18/2024 1:40 AM CDT Ignacio Brown NP LAB BLOOD ORDERABLES Final Result Performing Organization Address [facility] [place] [address] * (ABNORMAL) Protime-INR (12/18/2024 1:20 AM CDT) Pathologist [facility] PT 14.3(H) 9.7 - 13.0 sec INR 1.32(H) 0.90 - 1.20 [facility] Comment: Interpretive data Oral anticoagulant therapeutic ranges: Venous thromboembolism prophylaxis or treatment: 2.0-3.0 CARDIOLOGY Standard range: 2.0-3.0 High-intensity range: 2.5-3.5 Refer to indication-specific guidelines for appropriate target ranges for prosthetic heart valve replacement. Current interpretive data was last revised on 2019. Blood 12/18/2024 1:20 AM CDT 12/18/2024 1:40 AM CDT Ignacio Brown NP LAB BLOOD ORDERABLES Final Result Performing Organization Address [facility] [place] [address] * (ABNORMAL) CBC without differential (12/18/2024 1:20 AM CDT) Pathologist [facility] WBC 23.30(H) 3.80 - 9.90 K/cumm Hgb 7.2(L) 11.9 - 15.5 g/dL [facility] Hct 21.1(L) 35.6 - 45.5 % [facility] Plt 233 150 - 400 K/cumm [facility] MPV 9.4 9.1 - 12.3 fL [facility] RBC 2.40(L) 3.90 - 5.20 M/cumm [facility] MCV 87.9 81.3 - 96.4 fL [facility] MCH 30.0 27.1 - 33.3 pg [facility] MCHC 34.1 32.3 - 35.7 g/dL [facility] RDW CV 14.5 11.1 - 14.9 % [facility] RDW SD 45.7 35.7 - 48.1 fL [facility] NRBC abs 0.17(H) 0.00 - 0.01 K/cumm [facility] Blood 12/18/2024 1:20 AM CDT 12/18/2024 1:34 AM CDT Ignacio Brown NP LAB BLOOD ORDERABLES Final Result [facility] Department [place] [address] * Infection Prevention Justice auris PCR, surveillance Axilla/Groin (12/18/2024 12:42 AM CDT) Pathologist [facility] Justice auris DNA Not Detected Not Detected [facility] Comment: Interpretive Data Testing performed by [facility] Infectious Disease [facility] using the Stacie shirin 6800 Justice auris assay. This assay detects DNA from Justice auris using Real-Time PCR. This assay is laboratory developed and is not cleared by the [place] Food and Drug Administration. The performance characteristics have been verified by the [facility]. Axilla/Groin 12/18/2024 12:4 2 AM CDT 12/18/2024 1:50 AM CDT Narrative ALEX MCKEON - 12/18/2024 12:42 PM CDT Order placed by [facility] due to ring surveillance. us Instant Order Generic Provider LAB MICROBIOLOGY - GENERAL ORDERABLES Final Result Performing Organization Address [facility] Co de Phone Number ALEX [facility] Department [place] [address] [facility] * eGFR (12/18/2024 12:42 AM CDT) eGFR 69 >=60 mL/min/1. 73 m2 Comment: Interpretive Data [...] interpretive data was last reviewed 2021. Blood 12/18/2024 12:4 2 AM CDT 12/18/2024 12:54 AM CDT us Marian Rodrigues EXPORT SALES ASSISTANT LAB BLOOD ORDERABLES Brenda l Result Performing Organization Address City/[facility]/ZIP Co de Phone Number ALEX [facility] Department [place] [address] * (ABNORMAL) CBC without differential (12/18/2024 12:42 AM CDT) WBC 21.90(H) 3.80 - 9.90 K/cumm Hgb 6.5(L) 11.9 - 15.5 g/dL [facility] Hct 19.7(L) 35.6 - 45.5 % [facility] Plt 145(L) 150 - 400 K/cumm [facility] MPV 10.3 9.1 - 12.3 fL [facility] RBC 2.18(L) 3.90 - 5.20 M/cumm [facility] MCV 90.4 81.3 - 96.4 fL [facility] MCH 29.8 27.1 - 33.3 pg [facility] MCHC 33.0 32.3 - 35.7 g/dL [facility] RDW CV 14.4 11.1 - 14.9 % [facility] RDW SD 45.6 35.7 - 48.1 fL [facility] NRBC abs 0.22(H) 0.00 - 0.01 K/cumm [facility] Blood 12/18/2024 12:4 2 AM CDT 12/18/2024 12:54 AM CDT [facility] LAB BLOOD ORDERABLES Fi nal Result [facility] [place] [address] * Phosphorus (12/18/2024 12:42 AM CDT) Phosphorus, pl 2.9 2.3 - 4.5 mg/dL Blood 12/18/2024 12:4 2 AM CDT 12/18/2024 12:54 AM CDT [facility] LAB BLOOD ORDERABLES Fi nal Result [facility] [place] [address] * Magnesium (12/18/2024 12:42 AM CDT) Magnesium 2.2 1.4 - 2.5 mg/dL Blood 12/18/2024 12:4 2 AM CDT 12/18/2024 12:54 AM CDT us Kika Carrenoly DNP LAB BLOOD ORDERABLES Fi nal Result [facility] Department of Laboratories [place] [address] * (ABNORMAL) Comprehensive metabolic panel (12/18/2024 12:42 AM CDT) Sodium 138 135 - 145 mmol/L Potassium, pl 3.8 3.3 - 4.9 mmol/L [facility] Chloride 110 97 - 110 mmol/L [facility] CO2 19(L) 22 - 32 mmol/L [facility] Anion gap 9 2 - 15 mmol/L [facility] BUN 33(H) 6 - 25 mg/dL [facility] Creatinine 0.93 0.60 - 1.10 mg/dL [facility] Glucose 132 70 - 199 mg/dL [facility] Comment: Interpretive Data Fasting glucose >/= 126 [...] classification and Diagnosis of Diabetes Diabetes Care 2021; 46: S19-S40. Current interpretive data was last revised 2022. Calcium 7.2(L) 8.5 - 10.3 mg/dL [facility] Bilirubin, total 0.4 0.1 - 1.2 mg/dL [facility] Protein, pl 4.9(L) 6.5 - 8.5 g/dL [facility] Albumin 2.7(L) 3.5 - 5.0 g/dL [facility] Alk phos 77 40 - 130 Units/L [facility] ALT 1,266(H) 7 - 45 Units/L [facility] AST 880(H) 10 - 45 Units/L [facility] Blood 12/18/2024 12:4 2 AM CDT 12/18/2024 12:54 AM CDT us Kika Simpson [facility] LAB BLOOD ORDERABLES Fi nal Result Performing Organization Address [facility] Co de Phone Number [facility] [place] [address] * (ABNORMAL) Blood gas, arterial (12/17/2024 9:40 PM CDT) pH, Art 7.41 7.35 - 7.45 PCO2, Arterial 32(L) 35 - 45 mmHg [facility] PO2, Arterial 162(H) 83 - 108 mmHg [facility] HCO3 Art (Calculated) 21 20 - 30 mmol/L [facility] BE, art -4 mmol/L [facility] Comment: Interpretive Data No Reference Range Established Current Interpretive Data was last revised on 2017 O2 Sat Art (Measured) 100(H) 90 - 95 % [facility] Blood 12/17/2024 9:40 PM CDT 12/17/2024 9:46 PM CDT us Ignacio Brown EXPORT SALES ASSISTANT LAB BLOOD ORDERABLES Final Result Performing Organization Address [facility] Co de Phone Number [facility] [place] [address] * POCT glucose (12/17/2024 8:50 PM CDT) Glucose, POC 135 70 - 199 mg/dL Blood 12/17/2024 8:50 PM CDT 12/17/2024 8:50 PM CDT us Indiana Mortensen MD LAB POCT ORDERABLES - DEVICE Final Result Performing Organization Address City/[facility] Co de Phone Number [facility] Department [place] [address] * XR Chest 1 View (12/17/2024 7:10 PM CDT) Anatomical Region Laterality Modality Body, Chest N/A Digital Radiogra phy 12/18/2024 9:06 AM CDT Impressions 12/18/2024 9:50 AM CDT The current study is compared with the prior radiograph dated 12/16/2024. Patient is status post median sternotomy with sternal plates. A feeding tube extends below the level of the hemidiaphragm. There is mild pulmonary edema. Small layering left pleural effusion. Patchy airspace opacities within the right lower lobe likely represent combination of atelectasis and/or aspiration in the appropriate clinical context. The heart and mediastinal contours are stable. No pneumothorax. Dictated by: Todd Anglin MD The radiology attending physician has personally reviewed this study, and had reviewed and/or edited this written report and agrees with it. Electronically signed by: Shelton Echavarria M.D. Narrative 12/18/2024 9:50 AM CDT EXAMINATION: 1 view chest radiograph Procedure Note Shelton Echavarria MD - 12/18/2024 EXAMINATION: 1 view chest radiograph IMPRESSION: The current study is compared with the prior radiograph dated 12/16/2024. Patient is status post median sternotomy with sternal plates. A feeding tube extends below the level of the hemidiaphragm. There is mild pulmonary edema. Small layering left pleural effusion. Patchy airspace opacities within the right lower lobe likely represent combination of atelectasis and/or aspiration in the appropriate clinical context. The heart and mediastinal contours are stable. No pneumothorax. Dictated by: Todd Anglin MD The radiology attending physician has personally reviewed this study, and had reviewed and/or edited this written report and agrees with it. Electronically signed by: Shelton Echavarria M.D. Alecia Acosta EXPORT SALES ASSISTANT IMG XR PROCEDURES Final Result * Critical Care (12/17/2024 6:25 PM CDT) Narrative Esdras Quevedo MD - 12/17/2024 6:25 PM CDT Esdras Quevedo MD 12/19/2024 2:23 PM Critical Care Performed by: Ignacio Brown NP Authorized by: Ignacio Brown NP CRITICAL CARE: Team: 83 CTICU Shift: PM Level of Billing: Critical Care My time spent with this patient was 100 minutes: Critical Provider Statement: I have seen and examined the patient on this day of service. I have reviewed and confirmed the history, physical exam, laboratory and radiologic data as documented in the signed ICU note. I have reviewed and discussed my treatment plan with the ICU team and other medical/oncology consultant staff, making frequent assessments and decisions regarding this patient's complex medical care. Critical Care time was exclusive of time spent performing separately billed procedures, treating other patients, and teaching. This time was in addition to and separate from critical care provided by other practitioners in my group on this day of service. Critical Care was necessary to treat or prevent imminent or life-threatening deterioration of the following conditions: I spent time reviewing and interpreting data from bedside monitors, laboratory results, and imaging, I spent time discussing the management of this critically ill patient with consultants and the medical staff and I spent time documenting in the medical record us Ignacio Brown NP IN CLINIC/BEDSIDE ORDERABL ES Final Result * POCT glucose (12/17/2024 5:24 PM CDT) Glucose, POC 141 70 - 199 mg/dL Blood 12/17/2024 5:24 PM CDT 12/17/2024 5:24 PM CDT us Indiana Mortensen MD LAB POCT ORDERABLES - DEVICE Final Result [facility] Department [place] [address] * Potassium, whole blood (12/17/2024 11:54 AM CDT) Potassium, bld 4.5 3.3 - 4.9 mmol/L Blood 12/17/2024 11:5 4 AM CDT 12/17/2024 12:03 PM CDT us Ignacio Brown NP LAB BLOOD ORDERABLES Final Result Performing Organization Address City/[facility] Co de Phone Number [facility] [place] [address] * POCT glucose (12/17/2024 11:54 AM CDT) Glucose, POC 134 70 - 199 mg/dL Blood 12/17/2024 11:5 4 AM CDT 12/17/2024 11:54 AM CDT Indiana Mortensen MD LAB POCT ORDERABLES - DEVICE Final Result Performing Organization Address [facility] de Phone Number [facility] [place] [address] * (ABNORMAL) Blood gas, arterial (12/17/2024 11:54 AM CDT) pH, Art 7.39 7.35 - 7.45 PCO2, Arterial 32(L) 35 - 45 mmHg [facility] PO2, Arterial 157(H) 83 - 108 mmHg [facility] HCO3 Art (Calculated) 20 20 - 30 mmol/L [facility] BE, art -5 mmol/L [facility] Comment: Interpretive Data No Reference Range Established Current Interpretive Data was last revised on 2017 O2 Sat Art (Measured) 100(H) 90 - 95 % [facility] Blood 12/17/2024 11:5 4 AM CDT 12/17/2024 12:03 PM CDT Indiana Mortensen MD LAB BLOOD ORDERABLES Final Re sult Performing Organization Address [facility] Co de Phone Number [facility] [place] [address] * XR Abdomen 1 View AP (12/17/2024 9:36 AM CDT) Anatomical Region Laterality Modality Body, Abdomen N/A Computed Radiogr aphy 12/17/2024 9:42 AM CDT Impressions 12/17/2024 9:42 AM CDT Feeding tube with Iris technology is seen just past ligament of Treitz in the left upper quadrant. Aortic valve replacement. Median sternotomy plates are noted. Small volume of contrast is seen within the stomach. Electronically signed by: Michelle Negro M.D. Narrative 12/17/2024 9:42 AM CDT EXAMINATION: Abdomen, one view. HISTORY: Small bowel feeding tube placement COMPARISON: 12/15/2024 Procedure Note Michelle Negro MD - 12/17/2024 EXAMINATION: Abdomen, one view. HISTORY: Small bowel feeding tube placement COMPARISON: 12/15/2024 IMPRESSION: Feeding tube with Iris technology is seen just past ligament of Treitz in the left upper quadrant. Aortic valve replacement. Median sternotomy plates are noted. Small volume of contrast is seen within the stomach. Electronically signed by: Michelle Negro M.D. Josr AUGUSTIN IMG XR PROCEDURES Final Result * POCT glucose (12/17/2024 8:58 AM CDT) Glucose, POC 125 70 - 199 mg/dL Blood 12/17/2024 8:58 AM CDT 12/17/2024 8:58 AM CDT Indiana Mortensen MD LAB POCT ORDERABLES - DEVICE Final Result [facility] Department [place] [address] * Critical Care (12/17/2024 7:19 AM CDT) Narrative Esdras Quevedo MD - 12/17/2024 7:19 AM CDT Esdras Quevedo MD 12/19/2024 2:24 PM Critical Care Performed by: Josr Norman PA Authorized by: Josr Norman PA CRITICAL CARE: Team: 83 CTICU Shift: AM Level of Billing: Critical Care My time spent with this patient was 80 minutes: Critical Provider Statement: I have seen and examined the patient on this day of service. I have reviewed and confirmed the history, physical exam, laboratory and radiologic data as documented in the signed ICU note. I have reviewed and discussed my treatment plan with the ICU team and other medical/oncology consultant staff, making frequent assessments and decisions regarding this patient's complex medical care. Critical Care time was exclusive of time spent performing separately billed procedures, treating other patients, and teaching. This time was in addition to and separate from critical care provided by other practitioners in my group on this day of service. Critical Care was necessary to treat or prevent imminent or life-threatening deterioration of the following conditions: I spent time reviewing and interpreting data from bedside monitors, laboratory results, and imaging, I spent time discussing the management of this critically ill patient with consultants and the medical staff and I spent time documenting in the medical record Josr AUGUSTIN IN CLINIC/BEDSIDE ORDERA BLES Final Result * (ABNORMAL) Blood gas, arterial (12/17/2024 5:31 AM CDT) pH, Art 7.38 7.35 - 7.45 PCO2, Arterial 31(L) 35 - 45 mmHg [facility] PO2, Arterial 157(H) 83 - 108 mmHg [facility] HCO3 Art (Calculated) 19(L) 20 - 30 mmol/L [facility] BE, art -6 mmol/L [facility] Comment: Interpretive Data No Reference Range Established Current Interpretive Data was last revised on 2017 O2 Sat Art (Measured) 100(H) 90 - 95 % [facility] Blood 12/17/2024 5:31 AM CDT 12/17/2024 5:51 AM CDT us Ignacio Brown NP LAB BLOOD ORDERABLES Final Result [facility] Department [place] [address] * Potassium, whole blood (12/17/2024 5:04 AM CDT) Pathologist [facility] Potassium, bld 4.7 3.3 - 4.9 mmol/L Blood 12/17/2024 5:04 AM CDT 12/17/2024 5:24 AM CDT us Ignacio Brown EXPORT SALES ASSISTANT LAB BLOOD ORDERABLES Final Result Performing Organization Address [facility] Co de Phone Number [facility] [place] [address] * Vancomycin level random (12/17/2024 1:48 AM CDT) [facility] Vancomycin random 10.5 mcg/mL Comment: Interpretive Data No reference ranges have been established for random drug levels. Current Interpretive Data was last revised on 2020. Blood 12/17/2024 1:48 AM CDT 12/17/2024 2:11 AM CDT us Sepideh Rees EXPORT SALES ASSISTANT LAB BLOOD ORDERABLES Final Result Performing Organization Address [facility] Co de Phone Number [facility] [place] [address] * (ABNORMAL) eGFR (12/17/2024 12:12 AM CDT) [facility] eGFR 35(L) >=60 mL/min/1. 73 m2 Comment: Interpretive Data [...] interpretive data was last reviewed 2021. Blood 12/17/2024 12:1 2 AM CDT 12/17/2024 12:35 AM CDT Ignacio Brown NP LAB BLOOD ORDERABLES Final Result Performing Organization Address [facility] Co de Phone Number [facility] [place] [place] [address] * (ABNORMAL) Protime-INR (12/17/2024 12:12 AM CDT) PT 15.0(H) 9.7 - 13.0 sec INR 1.38(H) 0.90 - 1.20 [facility] Comment: Interpretive data Oral anticoagulant therapeutic ranges: Venous thromboembolism prophylaxis or treatment: 2.0-3.0 CARDIOLOGY Standard range: 2.0-3.0 High-intensity range: 2.5-3.5 Refer to indication-specific guidelines for appropriate target ranges for prosthetic heart valve replacement. Current interpretive data was last revised on 2019. Blood 12/17/2024 12:1 2 AM CDT 12/17/2024 12:43 AM CDT Ignacio Brown NP LAB BLOOD ORDERABLES Final Result Performing Organization Address [facility] Co de Phone Number [facility] [place] [address] * (ABNORMAL) CBC without differential (12/17/2024 12:12 AM CDT) WBC 22.88(H) 3.80 - 9.90 K/cumm Hgb 8.0(L) 11.9 - 15.5 g/dL [facility] Hct 22.8(L) 35.6 - 45.5 % [facility] Plt 275 150 - 400 K/cumm [facility] MPV 9.2 9.1 - 12.3 fL [facility] RBC 2.61(L) 3.90 - 5.20 M/cumm [facility] MCV 87.4 81.3 - 96.4 fL [facility] MCH 30.7 27.1 - 33.3 pg [facility] MCHC 35.1 32.3 - 35.7 g/dL [facility] RDW CV 14.1 11.1 - 14.9 % [facility] RDW SD 44.1 35.7 - 48.1 fL [facility] NRBC abs 0.25(H) 0.00 - 0.01 K/cumm [facility] Blood 12/17/2024 12:1 2 AM CDT 12/17/2024 12:36 AM CDT [facility] LAB BLOOD ORDERABLES Fi nal Result Performing Organization Address City/[facility] de Phone Number [facility] Department [place] [address] * (ABNORMAL) Phosphorus (12/17/2024 12:12 AM CDT) Phosphorus, pl 6.4(H) 2.3 - 4.5 mg/dL Blood 12/17/2024 12:1 2 AM CDT 12/17/2024 12:35 AM CDT [facility] LAB BLOOD ORDERABLES Fi nal Result [facility] Department [place] [address] * (ABNORMAL) Magnesium (12/17/2024 12:12 AM CDT) Magnesium 2.6(H) 1.4 - 2.5 mg/dL Blood 12/17/2024 12:1 2 AM CDT 12/17/2024 12:35 AM CDT us Kika Simpson DNP LAB BLOOD ORDERABLES Fi nal Result Performing Organization Address [facility] Co de Phone Number [facility] [place] [address] * (ABNORMAL) Hepatic function panel (12/17/2024 12:12 AM CDT) Bilirubin, total 0.7 0.1 - 1.2 mg/dL Bilirubin, direct 0.4(H) 0.1 - 0.3 mg/dL [facility] Protein, pl 5.5(L) 6.5 - 8.5 g/dL [facility] Albumin 3.0(L) 3.5 - 5.0 g/dL [facility] Alk phos 82 40 - 130 Units/L [facility] ALT 1,791(H) 7 - 45 Units/L [facility] Comment:Repeated on Dilution AST 2,012(H) 10 - 45 Units/L [facility] Comment:Repeated on Dilution Blood 12/17/2024 12:1 2 AM CDT 12/17/2024 12:35 AM CDT us Ignacio Brown EXPORT SALES ASSISTANT LAB BLOOD ORDERABLES Final Result Performing Organization Address [facility] Co de Phone Number [facility] Department [place] [address] * (ABNORMAL) Basic metabolic panel (12/17/2024 12:12 AM CDT) Sodium 135 135 - 145 mmol/L Potassium, pl 5.4(H) 3.3 - 4.9 mmol/L [facility] Chloride 104 97 - 110 mmol/L [facility] CO2 20(L) 22 - 32 mmol/L [facility] Anion gap 11 2 - 15 mmol/L [facility] BUN 32(H) 6 - 25 mg/dL [facility] Creatinine 1.65(H) 0.60 - 1.10 mg/dL [facility] Glucose 120 70 - 199 mg/dL [facility] Comment: Interpretive Data Fasting glucose >/= 126 [...] classification and Diagnosis of Diabetes Diabetes Care 2021; 46: S19-S40. Current interpretive data was last revised 2022. Calcium 8.2(L) 8.5 - 10.3 mg/dL [facility] Blood 12/17/2024 12:1 2 AM CDT 12/17/2024 12:35 AM CDT Ignacio Brown NP LAB BLOOD ORDERABLES Final Result Performing Organization Address City/[facility]/ZIP Co de Phone Number [facility] Department [place] [address] * (ABNORMAL) Potassium, whole blood (12/16/2024 9:30 PM CDT) [facility] Potassium, bld 5.2(H) 3.3 - 4.9 mmol/L Blood 12/16/2024 9:30 PM CDT 12/16/2024 9:40 PM CDT Ignacio Brown NP LAB BLOOD ORDERABLES Final Result [facility] [place] [address] * (ABNORMAL) eGFR (12/16/2024 9:30 PM CDT) [facility] eGFR 34(L) >=60 mL/min/1. 73 m2 Comment: Interpretive Data [...] interpretive data was last reviewed 2021. Blood 12/16/2024 9:30 PM CDT 12/16/2024 9:43 PM CDT Ignacio Brown NP LAB BLOOD ORDERABLES Final Result Performing Organization Address City/State/[facility] Co de Phone Number [facility] Department [place] [address] * (ABNORMAL) Blood gas, arterial (12/16/2024 9:30 PM CDT) pH, Art 7.34(L) 7.35 - 7.45 PCO2, Arterial 34(L) 35 - 45 mmHg [facility] PO2, Arterial 176(H) 83 - 108 mmHg [facility] HCO3 Art (Calculated) 19(L) 20 - 30 mmol/L [facility] BE, art -6 mmol/L [facility] Comment: Interpretive Data No Reference Range Established Current Interpretive Data was last revised on 2017 O2 Sat Art (Measured) 100(H) 90 - 95 % [facility] Blood 12/16/2024 9:30 PM CDT 12/16/2024 9:40 PM CDT Ignacio Brown NP LAB BLOOD ORDERABLES Final Result [facility] Department [place] [address] * (ABNORMAL) Basic metabolic panel (12/16/2024 9:30 PM CDT) Sodium 136 135 - 145 mmol/L Potassium, pl 5.5(H) 3.3 - 4.9 mmol/L [facility] Chloride 105 97 - 110 mmol/L [facility] CO2 20(L) 22 - 32 mmol/L [facility] Anion gap 11 2 - 15 mmol/L [facility] BUN 30(H) 6 - 25 mg/dL [facility] Creatinine 1.69(H) 0.60 - 1.10 mg/dL [facility] Glucose 120 70 - 199 mg/dL [facility] Comment: Interpretive Data Fasting glucose >/= 126 [...] classification and Diagnosis of Diabetes Diabetes Care 2021; 46: S19-S40. Current interpretive data was last revised 2022. Calcium 8.3(L) 8.5 - 10.3 mg/dL [facility] Blood 12/16/2024 9:30 PM CDT 12/16/2024 9:43 PM CDT Ignacio Brown NP LAB BLOOD ORDERABLES Final Result [facility] Department [place] [address] * POCT glucose (12/16/2024 8:39 PM CDT) Glucose, POC 122 70 - 199 mg/dL Blood 12/16/2024 8:39 PM CDT 12/16/2024 8:39 PM CDT us Indiana Mortensen MD LAB POCT ORDERABLES - DEVICE Final Result [facility] Department [place] [address] * XR Chest 1 View (12/16/2024 7:20 PM CDT) Anatomical Region Laterality Modality Body, Chest N/A Computed Radiogr aphy 12/17/2024 9:47 AM CDT Impressions 12/17/2024 9:47 AM CDT Comparison exam is dated 01/02/2025. The distal tip is located approximately 4 cm above the carinal bifurcation. The patient is status post median sternotomy and aortic valve replacement. The lead pacemaker in place, distal tips in the right atrium and right ventricle. Nasogastric tube has its distal tip in the stomach. Mild elevation of the right hemidiaphragm. Small left pleural effusion with left basilar atelectasis. Compared to the prior exam from earlier in the day, there has been no substantial interval change. Electronically signed by: Elliott Davis M.D. Narrative 12/17/2024 9:47 AM CDT EXAMINATION: 1 view chest radiograph Procedure Note Elliott Davis MD - 12/17/2024 EXAMINATION: 1 view chest radiograph IMPRESSION: Comparison exam is dated 01/02/2025. The distal tip is located approximately 4 cm above the carinal bifurcation. The patient is status post median sternotomy and aortic valve replacement. The lead pacemaker in place, distal tips in the right atrium and right ventricle. Nasogastric tube has its distal tip in the stomach. Mild elevation of the right hemidiaphragm. Small left pleural effusion with left basilar atelectasis. Compared to the prior exam from earlier in the day, there has been no substantial interval change. Electronically signed by: Elliott Davis M.D. us Alecia Acosta EXPORT SALES ASSISTANT IMG XR PROCEDURES Final Result * Critical Care (12/16/2024 6:30 PM CDT) Narrative Esdras Quevedo MD - 12/16/2024 6:30 PM CDT Esdras Quevedo MD 12/19/2024 2:23 PM Critical Care Performed by: Ignacio Brown NP Authorized by: Ignacio Brown NP CRITICAL CARE: Team: 83 CTICU Shift: PM Level of Billing: Critical Care My time spent with this patient was 115 minutes: Critical Provider Statement: I have seen and examined the patient on this day of service. I have reviewed and confirmed the history, physical exam, laboratory and radiologic data as documented in the signed ICU note. I have reviewed and discussed my treatment plan with the ICU team and other medical/oncology consultant staff, making frequent assessments and decisions regarding this patient's complex medical care. Critical Care time was exclusive of time spent performing separately billed procedures, treating other patients, and teaching. This time was in addition to and separate from critical care provided by other practitioners in my group on this day of service. Critical Care was necessary to treat or prevent imminent or life-threatening deterioration of the following conditions: I spent time reviewing and interpreting data from bedside monitors, laboratory results, and imaging, I spent time discussing the management of this critically ill patient with consultants and the medical staff and I spent time documenting in the medical record us Ignacio Brown EXPORT SALES ASSISTANT IN CLINIC/BEDSIDE ORDERABL ES Final Result * (ABNORMAL) Potassium, whole blood (12/16/2024 5:10 PM CDT) [facility] Potassium, bld 5.3(H) 3.3 - 4.9 mmol/L Blood 12/16/2024 5:10 PM CDT 12/16/2024 5:21 PM CDT us Angela Cox NP LAB BLOOD ORDERABLES Final Result [facility] Department [place] [address] * POCT glucose (12/16/2024 5:10 PM CDT) Glucose, POC 130 70 - 199 mg/dL Blood 12/16/2024 5:10 PM CDT 12/16/2024 5:10 PM CDT Indiana Mortensen MD LAB POCT ORDERABLES - DEVICE Final Result Performing Organization Address [facility] Co de Phone Number [facility] Department [place] [address] * (ABNORMAL) Blood gas, arterial (12/16/2024 5:10 PM CDT) [facility] pH, Art 7.27(L) 7.35 - 7.45 PCO2, Arterial 43 35 - 45 mmHg [facility] PO2, Arterial 159(H) 83 - 108 mmHg [facility] HCO3 Art (Calculated) 20 20 - 30 mmol/L [facility] BE, art -7 mmol/L [facility] Comment: Interpretive Data No Reference Range Established Current Interpretive Data was last revised on 2017 O2 Sat Art (Measured) 99(H) 90 - 95 % [facility] Blood 12/16/2024 5:10 PM CDT 12/16/2024 5:21 PM CDT us Indiana Mortensen MD LAB BLOOD ORDERABLES Final Re sult Performing Organization Address [facility] Co de Phone Number [facility] Department [place] [address] * (ABNORMAL) Potassium, whole blood (12/16/2024 1:55 PM CDT) Pathologist [facility] Potassium, bld 5.5(H) 3.3 - 4.9 mmol/L Blood 12/16/2024 1:55 PM CDT 12/16/2024 2:05 PM CDT us Sepideh Rees NP LAB BLOOD ORDERABLES Final Result [facility] Department [place] [address] * (ABNORMAL) POC Blood Gas and Chemistries, Arterial - (12/16/2024 1:17 PM CDT) pH, Art POC 7.25(L) 7.35 - 7.45 pCO2, Art POC 44 35 - 45 mmHg [facility] pO2, Art POC 147(H) 83 - 108 mmHg [facility] Na, POC 134(L) 135 - 145 mmol/L [facility] K POC 5.8(H) 3.3 - 4.9 mmol/L [facility] Comment: Interpretive Data Not all point of care methods assess for hemolysis. Confirm with instrument and retest K+ if not consistent with clinical signs and symptoms. Current Interpretive Data was last revised on 2023. Cl, POC 107 97 - 110 mmol/L [facility] Ionized Ca, POC 4.71 4.50 - 5.10 mg/dL [facility] Glucose, POC 131 70 - 199 mg/dL [facility] Lactate POC 1.3 0.7 - 2.0 mmol/L [facility] SO2 (chandra) arterial 99(H) 90 - 95 % [facility] Base excess, POC -7.5 mmol/L [facility] HCO3, Art POC 19(L) 20 - 30 mmol/L [facility] Hct, POC 28.0(L) 36.3 - 45.3 % [facility] Total Hb, POC 9.4(L) 11.9 - 15.5 g/dL [facility] Blood 12/16/2024 1:17 PM CDT 12/16/2024 1:17 PM CDT us Indiana Mortensen MD LAB POCT ORDERABLES - DEVICE Final Result [facility] Department [place] [address] * (ABNORMAL) POC Blood Gas and Chemistries, Arterial - (12/16/2024 12:33 PM CDT) pH, Art POC 7.24(L) 7.35 - 7.45 pCO2, Art POC 48(H) 35 - 45 mmHg [facility] pO2, Art POC 138(H) 83 - 108 mmHg [facility] Na, POC 135 135 - 145 mmol/L [facility] K POC 5.7(H) 3.3 - 4.9 mmol/L [facility] Comment: Interpretive Data Not all point of care methods assess for hemolysis. Confirm with instrument and retest K+ if not consistent with clinical signs and symptoms. Current Interpretive Data was last revised on 2023. Cl, POC 106 97 - 110 mmol/L [facility] Ionized Ca, POC 4.74 4.50 - 5.10 mg/dL [facility] Glucose, POC 134 70 - 199 mg/dL [facility] Lactate POC 1.2 0.7 - 2.0 mmol/L [facility] SO2 (chandra) arterial 100(H) 90 - 95 % [facility] Base excess, POC -6.6 mmol/L [facility] HCO3, Art POC 21 20 - 30 mmol/L [facility] Hct, POC 28.0(L) 36.3 - 45.3 % [facility] Total Hb, POC 9.2(L) 11.9 - 15.5 g/dL [facility] Blood 12/16/2024 12:3 3 PM CDT 12/16/2024 12:33 PM CDT us Indiana Mortensen MD LAB POCT ORDERABLES - DEVICE Final Result [facility] Department [place] [address] * XR Chest 1 View (12/16/2024 11:52 AM CDT) Anatomical Region Laterality Modality Body, Chest N/A Digital Radiogra phy 12/16/2024 2:15 PM CDT Impressions 12/16/2024 2:27 PM CDT Comparison with 12/15/2024. Interval right internal jugular transvenous pacer placement with lead in the right ventricle. Unchanged left internal jugular transvenous pacing wire in the right ventricle. Mediastinal sternal plates. Gastric tube courses below the left hemidiaphragm with tip out of the field of view. Aortic valve replacement. Unchanged mild right and moderate left bibasilar atelectasis. Unchanged small left pleural effusion. No pneumothorax. Stable enlarged cardiac silhouette. Dictated by: Kristina Diaz MD The radiology attending physician has personally reviewed this study, and had reviewed and/or edited this written report and agrees with it. Electronically signed by: Shala Eldridge M.D. Narrative 12/16/2024 2:27 PM CDT EXAMINATION: 1 view chest radiograph Procedure Note Shala Eldridge MD - 12/16/2024 EXAMINATION: 1 view chest radiograph IMPRESSION: Comparison with 12/15/2024. Interval right internal jugular transvenous pacer placement with lead in the right ventricle. Unchanged left internal jugular transvenous pacing wire in the right ventricle. Mediastinal sternal plates. Gastric tube courses below the left hemidiaphragm with tip out of the field of view. Aortic valve replacement. Unchanged mild right and moderate left bibasilar atelectasis. Unchanged small left pleural effusion. No pneumothorax. Stable enlarged cardiac silhouette. Dictated by: Kristina Diaz MD The radiology attending physician has personally reviewed this study, and had reviewed and/or edited this written report and agrees with it. Electronically signed by: Shala Eldridge M.D. Sepideh Rees EXPORT SALES ASSISTANT IMG XR PROCEDURES Fi nal Result * (ABNORMAL) eGFR (12/16/2024 11:21 AM CDT) eGFR 33(L) >=60 mL/min/1. 73 m2 Comment: Interpretive Data [...] interpretive data was last reviewed 2021. Blood 12/16/2024 11:2 1 AM CDT 12/16/2024 11:32 AM CDT us Indiana Mortensen MD LAB BLOOD ORDERABLES Final Re sult [facility] Department [place] [address] * (ABNORMAL) CBC without differential (12/16/2024 11:21 AM CDT) WBC 35.53(H) 3.80 - 9.90 K/cumm Hgb 8.8(L) 11.9 - 15.5 g/dL [facility] Hct 26.1(L) 35.6 - 45.5 % [facility] Plt 371 150 - 400 K/cumm [facility] MPV 9.0(L) 9.1 - 12.3 fL [facility] RBC 2.93(L) 3.90 - 5.20 M/cumm [facility] MCV 89.1 81.3 - 96.4 fL [facility] MCH 30.0 27.1 - 33.3 pg [facility] MCHC 33.7 32.3 - 35.7 g/dL [facility] RDW CV 13.7 11.1 - 14.9 % [facility] RDW SD 43.8 35.7 - 48.1 fL [facility] NRBC abs 1.14(H) 0.00 - 0.01 K/cumm [facility] Blood 12/16/2024 11:2 1 AM CDT 12/16/2024 11:33 AM CDT Indiana Mortensen MD LAB BLOOD ORDERABLES Final Re sult Performing Organization Address [facility] Co de Phone Number [facility] Department [place] [address] * (ABNORMAL) Phosphorus (12/16/2024 11:21 AM CDT) Pathologist [facility] Phosphorus, pl 6.9(H) 2.3 - 4.5 mg/dL Blood 12/16/2024 11:2 1 AM CDT 12/16/2024 11:32 AM CDT Indiana Mortensen MD LAB BLOOD ORDERABLES Final Re sult Performing Organization Address [facility] de Phone Number [facility] Department [place] [address] * (ABNORMAL) Magnesium (12/16/2024 11:21 AM CDT) [facility] Magnesium 2.7(H) 1.4 - 2.5 mg/dL Blood 12/16/2024 11:2 1 AM CDT 12/16/2024 11:32 AM CDT Indiana Mortensen MD LAB BLOOD ORDERABLES Final Re sult Performing Organization Address [facility] de Phone Number [facility] [place] [address] * (ABNORMAL) Basic metabolic panel (12/16/2024 11:21 AM CDT) [facility] Sodium 135 135 - 145 mmol/L Potassium, pl 5.5(H) 3.3 - 4.9 mmol/L [facility] Chloride 103 97 - 110 mmol/L [facility] CO2 21(L) 22 - 32 mmol/L [facility] Anion gap 11 2 - 15 mmol/L [facility] BUN 27(H) 6 - 25 mg/dL [facility] Creatinine 1.71(H) 0.60 - 1.10 mg/dL [facility] Comment:Reviewed Glucose 140 70 - 199 mg/dL [facility] Comment: Interpretive Data Fasting glucose >/= 126 [...] interpretive data was last revised 2022. Calcium 8.7 8.5 - 10.3 mg/dL [facility] Blood 12/16/2024 11:2 1 AM CDT 12/16/2024 11:32 AM CDT us Indiana Mortensen MD LAB BLOOD ORDERABLES Final Re sult [facility] Department [place] [address] * (ABNORMAL) POC Blood Gas and Chemistries, Arterial - (12/16/2024 11:12 AM CDT) pH, Art POC 7.25(L) 7.35 - 7.45 pCO2, Art POC 45 35 - 45 mmHg [facility] pO2, Art POC 324(H) 83 - 108 mmHg [facility] Na, POC 135 135 - 145 mmol/L [facility] K POC 5.5(H) 3.3 - 4.9 mmol/L [facility] Comment: Interpretive Data Not all point of care methods assess for hemolysis. Confirm with instrument and retest K+ if not consistent with clinical signs and symptoms. Current Interpretive Data was last revised on 2023. Cl, POC 107 97 - 110 mmol/L [facility] Ionized Ca, POC 4.78 4.50 - 5.10 mg/dL [facility] Glucose, POC 132 70 - 199 mg/dL [facility] Lactate POC 1.2 0.7 - 2.0 mmol/L [facility] SO2 (chandra) arterial 100(H) 90 - 95 % [facility] Base excess, POC -7.2 mmol/L [facility] HCO3, Art POC 20 20 - 30 mmol/L [facility] Hct, POC 28.0(L) 36.3 - 45.3 % [facility] Total Hb, POC 9.3(L) 11.9 - 15.5 g/dL [facility] Blood 12/16/2024 11:1 2 AM CDT 12/16/2024 11:12 AM CDT us Indiana Mortensen MD LAB POCT ORDERABLES - DEVICE Final Result [facility] Department [place] [address] * Critical Care (12/16/2024 8:07 AM CDT) Narrative Esdras Queveod MD - 12/16/2024 8:07 AM CDT Esdras Quevedo MD 12/19/2024 2:21 PM Critical Care Performed by: Sepideh Rees NP Authorized by: Sepideh Rees NP CRITICAL CARE: Team: 83 CTICU Shift: AM Level of Billing: Critical Care My time spent with this patient was 110 minutes: Critical Provider Statement: I have seen and examined the patient on this day of service. I have reviewed and confirmed the history, physical exam, laboratory and radiologic data as documented in the signed ICU note. I have reviewed and discussed my treatment plan with the ICU team and other medical/oncology consultant staff, making frequent assessments and decisions regarding this patient's complex medical care. Critical Care time was exclusive of time spent performing separately billed procedures, treating other patients, and teaching. This time was in addition to and separate from critical care provided by other practitioners in my group on this day of service. Critical Care was necessary to treat or prevent imminent or life-threatening deterioration of the following conditions: I spent time reviewing and interpreting data from bedside monitors, laboratory results, and imaging, I spent time discussing the management of this critically ill patient with consultants and the medical staff and I spent time documenting in the medical record Sepideh Rees NP IN CLINIC/BEDSIDE OR DERABLES Final Result * (ABNORMAL) Lactate, whole blood (12/16/2024 8:00 AM CDT) Lactate, bld 2.2(H) 0.7 - 2.0 mmol/L Blood 12/16/2024 8:00 AM CDT 12/16/2024 8:19 AM CDT Indiana Mortensen MD LAB BLOOD ORDERABLES Final Re sult Performing Organization Address [facility] de Phone Number [facility] [place] [address] * (ABNORMAL) Blood gas, arterial (12/16/2024 8:00 AM CDT) pH, Art 7.33(L) 7.35 - 7.45 PCO2, Arterial 39 35 - 45 mmHg [facility] PO2, Arterial 203(H) 83 - 108 mmHg [facility] HCO3 Art (Calculated) 21 20 - 30 mmol/L [facility] BE, art -5 mmol/L [facility] Comment: Interpretive Data No Reference Range Established Current Interpretive Data was last revised on 2017 O2 Sat Art (Measured) 99(H) 90 - 95 % [facility] Blood 12/16/2024 8:00 AM CDT 12/16/2024 8:19 AM CDT Result [facility] Indiana Mortensen MD LAB BLOOD ORDERABLES Final Re sult Performing Organization Address [facility] Co de Phone Number [facility] [place] [address] * POCT glucose (12/16/2024 7:54 AM CDT) Glucose, POC 131 70 - 199 mg/dL Blood 12/16/2024 7:54 AM CDT 12/16/2024 7:54 AM CDT us Indaina Mortensen MD LAB POCT ORDERABLES - DEVICE Final Result [facility] Department [place] [address] * (ABNORMAL) POC Blood Gas and Chemistries, Arterial - (12/16/2024 5:59 AM CDT) pH, Art POC 7.33(L) 7.35 - 7.45 pCO2, Art POC 34(L) 35 - 45 mmHg [facility] pO2, Art POC 293(H) 83 - 108 mmHg [facility] Na, POC 136 135 - 145 mmol/L [facility] K POC 4.7 3.3 - 4.9 mmol/L [facility] Comment: Interpretive Data Not all point of care methods assess for hemolysis. Confirm with instrument and retest K+ if not consistent with clinical signs and symptoms. Current Interpretive Data was last revised on 2023. Cl, POC 109 97 - 110 mmol/L [facility] Ionized Ca, POC 4.65 4.50 - 5.10 mg/dL [facility] Glucose, POC 162 70 - 199 mg/dL [facility] Lactate POC 2.5(H) 0.7 - 2.0 mmol/L [facility] SO2 (chandra) arterial 100(H) 90 - 95 % [facility] Base excess, POC -7.3 mmol/L [facility] HCO3, Art POC 18(L) 20 - 30 mmol/L [facility] Hct, POC 27.0(L) 36.3 - 45.3 % [facility] Total Hb, POC 9.1(L) 11.9 - 15.5 g/dL [facility] Blood 12/16/2024 5:59 AM CDT 12/16/2024 5:59 AM CDT us Indiana Mortensen MD LAB POCT ORDERABLES - DEVICE Final Result [facility] Department [place] [address] * (ABNORMAL) POC Blood Gas and Chemistries, Arterial - (12/16/2024 3:52 AM CDT) pH, Art POC 7.34(L) 7.35 - 7.45 pCO2, Art POC 27(L) 35 - 45 mmHg [facility] pO2, Art POC 168(H) 83 - 108 mmHg [facility] Na, POC 134(L) 135 - 145 mmol/L [facility] K POC 5.3(H) 3.3 - 4.9 mmol/L [facility] Comment: Interpretive Data Not all point of care methods assess for hemolysis. Confirm with instrument and retest K+ if not consistent with clinical signs and symptoms. Current Interpretive Data was last revised on 2023. Cl, POC 110 97 - 110 mmol/L [facility] Ionized Ca, POC 4.84 4.50 - 5.10 mg/dL [facility] Glucose, POC 238(H) 70 - 199 mg/dL [facility] Lactate POC 4.3(C) 0.7 - 2.0 mmol/L [facility] SO2 (chandra) arterial Incalculable 90 - 95 % [facility] Base excess, POC -9.6 mmol/L [facility] HCO3, Art POC 15(L) 20 - 30 mmol/L [facility] Hct, POC Incalculable 36.3 - 45.3 % [facility] Total Hb, POC Incalculable 11.9 - 15.5 g/dL [facility] Blood 12/16/2024 3:52 AM CDT 12/16/2024 3:52 AM CDT us Indiana Mortensen MD LAB POCT ORDERABLES - DEVICE Final Result [facility] Department [place] [address] * ECG 12 lead (12/16/2024 2:45 AM CDT) Pathologist [facility] Ventricular Rate EKG/Min 37 BPM [facility] Atrial Rate 41 BPM [facility] QRS-Interval (MSEC) 102 ms [facility] QT-Interval (MSEC) 570 ms [facility] QTc 447 ms [facility] R Belk 183 degrees [facility] T Belk 121 degrees [facility] Diagnosis Poor data quality, interpretation may be adversely affected Suspect arm lead reversal, interpretation assumes no reversal with complete heart block Atrial paced rhythm Moderate voltage criteria for LVH, may be normal variant ( R in aVL , Sokolow-Elam ) Lateral infarct , new Inferior injury pattern Anterior injury pattern ACUTE [place] / STEMI Abnormal ECG When compared with ECG of 12-DEC-2024 11:50, Current undetermined rhythm precludes rhythm comparison, needs review Right bundle branch block is no longer Present Acute Lateral infarct is now Present Confirmed by KAMILA MCKAY M.D ([id number]) on 12/16/2024 11:16:23 AM [facility] 12/16/2024 2:45 AM CDT 12/16/2024 11:16 AM CDT us Kika Simpson DNP ECG ORDERABLES Final R esult [facility] * (ABNORMAL) POC Blood Gas and Chemistries, Arterial - (12/16/2024 2:43 AM CDT) Pathologist [facility] pH, Art POC 7.33(L) 7.35 - 7.45 pCO2, Art POC 34(L) 35 - 45 mmHg [facility] pO2, Art POC 153(H) 83 - 108 mmHg [facility] Na, POC 136 135 - 145 mmol/L [facility] K POC 4.8 3.3 - 4.9 mmol/L [facility] Comment: Interpretive Data Not all point of care methods assess for hemolysis. Confirm with instrument and retest K+ if not consistent with clinical signs and symptoms. Current Interpretive Data was last revised on 2023. Cl, POC 106 97 - 110 mmol/L [facility] Ionized Ca, POC 5.02 4.50 - 5.10 mg/dL [facility] Glucose, POC 240(H) 70 - 199 mg/dL [facility] Lactate POC 3.3(H) 0.7 - 2.0 mmol/L [facility] SO2 (chandra) arterial 100(H) 90 - 95 % [facility] Base excess, POC -7.3 mmol/L [facility] HCO3, Art POC 18(L) 20 - 30 mmol/L [facility] Hct, POC 28.0(L) 36.3 - 45.3 % [facility] Total Hb, POC 9.3(L) 11.9 - 15.5 g/dL [facility] Blood 12/16/2024 2:43 AM CDT 12/16/2024 2:43 AM CDT Indiana Mortensen MD LAB POCT ORDERABLES - DEVICE Final Result [facility] Department [place] [address] * Respiratory pathogen panel Tracheal aspirate (12/16/2024 1:45 AM CDT) Pathologist [facility] Influenza A RNA Not Detected Not Detected Influenza B RNA Not Detected Not Detected [facility] RSV RNA Not Detected Not Detected [facility] COVID-19 RNA Not Detected Not Detected [facility] Coronavirus 229E RNA Not Detected Not Detected [facility] Coronavirus HKU1 RNA Not Detected Not Detected [facility] Coronavirus NL63 RNA Not Detected Not Detected [facility] Coronavirus OC43 RNA Not Detected Not Detected [facility] Adenovirus DNA Not Detected Not Detected [facility] Metapneumovirus RNA Not Detected Not Detected [facility] Rhinovirus/Enterov irus RNA Not Detected Not Detected [facility] Parainfluenza 1 RNA Not Detected Not Detected [facility] Parainfluenza 2 RNA Not Detected Not Detected [facility] Parainfluenza 3 RNA Not Detected Not Detected [facility] Parainfluenza 4 RNA Not Detected Not Detected [facility] B. pertussis DNA Not Detected Not Detected [facility] B. parapertussis DNA Not Detected Not Detected [facility] C. pneumoniae DNA Not Detected Not Detected [facility] M. pneumoniae DNA Not Detected Not Detected [facility] Tracheal aspirate 12/16/2024 1:45 AM CDT 12/16/2024 8:16 AM CDT Narrative [facility] - 12/16/2024 9:13 AM CDT Is the Patient experiencing symptoms consistent with COVID?->Yes Surveillance testing for transplant patient?->No Interpretive Data The [employer] FilmArray Respiratory Panel (RP2.1) assay is a multiplexed real-time PCR based nucleic acid test capable of simultaneous qualitative detection and identification of multiple respiratory viral and bacterial nucleic acids, including SARS Coronavirus 2 (the causative agent of COVID-19). The following bacteria, viruses and virus subtypes can be identified using the FilmArray RP2.1 assay: Bordetella pertussis, Bordetella parapertussis, Chlamydia pneumoniae, Mycoplasma pneumoniae, Adenovirus, SARS Coronavirus 2, seasonal coronaviruses (Coronavirus HKU1, Coronavirus NL63, Coronavirus 229E, and Coronavirus OC43), Influenza A, Influenza A subtype H1, Influenza A subtype H3, Influenza A subtype 2009 H1, Influenza B, Metapneumovirus, Parainfluenza 1, Parainfluenza 2, Parainfluenza 3, Parainfluenza 4, RSV, Rhinovirus/Enterovirus. Due to the genetic similarity between human Rhinovirus and Enterovirus, the FilmArray RP2.1 assay cannot reliably differentiate them. Coronavirus OC43 may cross-react with some isolates of Coronavirus HKU1. A dual positive result may be due to cross-reactivity or may indicate a co- infection. The detection and identification of specific viral and bacterial nucleic acids from individuals exhibiting signs and symptoms of a respiratory infection aids in the diagnosis of respiratory infection if used in conjunction with other clinical and epidemiological information. The results of this test should not be used as the sole basis for diagnosis, treatment, or other management decisions. Negative results in the setting of a respiratory illness may be due to infection with pathogens that are not detected by this test. Positive results do not rule out infection/co-infection with other organisms. The agent(s) detected by the FilmArray RP2.1 may not be the definite cause of disease. Additional testing (lab, imaging, etc.) may be necessary when evaluating a patient with possible respiratory tract infection. The FilmArray RP2.1 assay has FDA clearance for testing of EXPORT SALES ASSISTANT swabs. The performance of additional specimen types has been assessed by the performing laboratory. The performance characteristics of this assay have been determined by [facility] Molecular Infectious Disease Laboratory. Current interpretive data was last revised on 22. [facility] EXPORT SALES ASSISTANT LAB MICROBIOLOGY - GENERAL ORD ERABLES Final Result [facility] Department [place] [address] * Blood culture Blood (12/16/2024 1:45 AM CDT) Report Final Report: No growth Blood 12/16/2024 1:45 AM CDT 12/16/2024 2:16 AM CDT [facility]ative [facility] - 12/20/2024 7:00 AM CDT Collection->Peripheral 1. Blood cultures are incubated for 4 days on a continuously monitored blood culture system. The first report of a negative culture is issued within 24 hours of receipt of the specimen in the laboratory. 2. Positive culture results are reported as soon as they are detected. 3. The most important factor for detection of microbes in the setting of bloodstream infection is the volume of blood submitted for culture. Failure to collect an optimal blood volume can result in false negative blood cultures. 4. For pediatric patients, the recommended blood volume to collect follows a weight based strategy. See the electronic test catalog for collection instructions. 5. For positive blood cultures, a rapid molecular test may be performed for organism identification using the [employer] blood culture identification panel for gram positive (BCID-GP) and gram negative (BCID-GN) organisms. This nucleic acid amplification test detects microbial DNA in positive blood culture broth. This assay has been cleared by the [place] Food and Drug Administration and its performance characteristics have been verified by the [facility] Microbiology Laboratory. For questions about this culture, contact the Microbiology Laboratory at [phone]. Interpretive data was last revised on 24. Gia Mercedes LAB MICROBIOLOGY - GENERAL ORD ERABLES Final Result ALEX MCKEON [facility] Department [place] [address] * Blood culture Blood (12/16/2024 1:45 AM CDT) Report Final Report: No growth Blood 12/16/2024 1:45 AM CDT 12/16/2024 2:16 AM CDT Narrative [facility] - 12/20/2024 7:00 AM CDT Collection->Peripheral 1. Blood cultures are incubated for 4 days on a continuously monitored blood culture system. The first report of a negative culture is issued within 24 hours of receipt of the specimen in the laboratory. 2. Positive culture results are reported as soon as they are detected. 3. The most important factor for detection of microbes in the setting of bloodstream infection is the volume of blood submitted for culture. Failure to collect an optimal blood volume can result in false negative blood cultures. 4. For pediatric patients, the recommended blood volume to collect follows a weight based strategy. See the electronic test catalog for collection instructions. 5. For positive blood cultures, a rapid molecular test may be performed for organism identification using the shirin ePlex blood culture identification panel for gram positive (BCID-GP) and gram negative (BCID-GN) organisms. This nucleic acid amplification test detects microbial DNA in positive blood culture broth. This assay has been cleared by the [place] Food and Drug Administration and its performance characteristics have been verified by the [facility] Microbiology Laboratory. For questions about this culture, contact the Microbiology Laboratory at [phone]. Interpretive data was last revised on 24. Gia Mercedes LAB MICROBIOLOGY - GENERAL ORD ERABLES Final Result Performing Organization Address City/[facility]/ZIP Co de Phone Number ALEX [facility] Department [place] [address] * eGFR (12/15/2024 10:37 PM CDT) eGFR 77 >=60 mL/min/1. 73 m2 Comment: Interpretive Data [...] interpretive data was last reviewed 2021. Blood 12/15/2024 10:3 7 PM CDT 12/15/2024 11:03 PM CDT Angela Cox EXPORT SALES ASSISTANT LAB BLOOD ORDERABLES Final Result Performing Organization Address City/[facility]/ZIP Co de Phone Number [facility] Department [place] [address] * (ABNORMAL) Calcium, ionized (12/15/2024 10:37 PM CDT) Calcium, Ionized 4.44(L) 4.50 - 5.10 mg/dL Blood 12/15/2024 10:3 7 PM CDT 12/15/2024 10:46 PM CDT us Gia Mercedes EXPORT SALES ASSISTANT LAB BLOOD ORDERABLES Final Res ult [facility] Department [place] [address] * (ABNORMAL) CBC without differential (12/15/2024 10:37 PM CDT) Pathologist [facility] WBC 28.29(H) 3.80 - 9.90 K/cumm Hgb 9.1(L) 11.9 - 15.5 g/dL [facility] Hct 26.9(L) 35.6 - 45.5 % [facility] Plt 443(H) 150 - 400 K/cumm [facility] MPV 8.9(L) 9.1 - 12.3 fL [facility] RBC 3.05(L) 3.90 - 5.20 M/cumm [facility] MCV 88.2 81.3 - 96.4 fL [facility] MCH 29.8 27.1 - 33.3 pg [facility] MCHC 33.8 32.3 - 35.7 g/dL [facility] RDW CV 14.1 11.1 - 14.9 % [facility] RDW SD 44.0 35.7 - 48.1 fL [facility] NRBC abs 0.37(H) 0.00 - 0.01 K/cumm [facility] Blood 12/15/2024 10:3 7 PM CDT 12/15/2024 10:54 PM CDT Angela Cox EXPORT SALES ASSISTANT LAB BLOOD ORDERABLES Final Result Performing Organization Address [facility] Co de Phone Number [facility] Department [place] [address] * Phosphorus (12/15/2024 10:37 PM CDT) Pathologist [facility] Phosphorus, pl 4.5 2.3 - 4.5 mg/dL Blood 12/15/2024 10:3 7 PM CDT 12/15/2024 10:46 PM CDT Angela Cox EXPORT SALES ASSISTANT LAB BLOOD ORDERABLES Final Result Performing Organization Address City/[facility]/ZIP Co de Phone Number [facility] Department [place] [address] * Magnesium (12/15/2024 10:37 PM CDT) Magnesium 2.1 1.4 - 2.5 mg/dL Blood 12/15/2024 10:3 7 PM CDT 12/15/2024 10:46 PM CDT Gia Mercedes EXPORT SALES ASSISTANT LAB BLOOD ORDERABLES Final Res ult [facility] Department [place] [address] * Basic metabolic panel (12/15/2024 10:37 PM CDT) Pathologist [facility] Sodium 136 135 - 145 mmol/L Potassium, pl 4.4 3.3 - 4.9 mmol/L [facility] Chloride 102 97 - 110 mmol/L [facility] CO2 23 22 - 32 mmol/L [facility] Anion gap 11 2 - 15 mmol/L [facility] BUN 21 6 - 25 mg/dL [facility] Creatinine 0.85 0.60 - 1.10 mg/dL [facility] Glucose 152 70 - 199 mg/dL [facility] Comment: Interpretive Data Fasting glucose >/= 126 [...] classification and Diagnosis of Diabetes Diabetes Care 2021; 46: S19-S40. Current interpretive data was last revised 2022. Calcium 8.5 8.5 - 10.3 mg/dL [facility] Blood 12/15/2024 10:3 7 PM CDT 12/15/2024 10:46 PM CDT Angela Cox EXPORT SALES ASSISTANT LAB BLOOD ORDERABLES Final Result [facility] Department [place] [address] * (ABNORMAL) Urinalysis reflex to microscopic and culture Urine (12/15/2024 9:20 PM CDT) Color, ur Straw Yellow Clarity, ur Clear Clear [facility] Specific gravity, ur 1.018 1.003 - 1.030 [facility] pH, urine 5.5 [facility] Comment: Interpretive Data U rine pH is affected by diet, medications, systemic acid-base disturbances, and renal tubular function. pH may affect urinary stone formation. For example, urine pH below 6.0 may help reduce the tendency for calcium phosphate stones and pH greater than 6.0 may reduce the tendency for uric acid stone formation. Source: [facility] Current Interpretive Data was last revised on 2017 Protein, ur ql Negative Negative [facility] Glucose, ur ql Negative Negative [facility] Ketones, ur Negative Negative [facility] Bilirubin, ur Negative Negative [facility] Blood, ur Trace(A) Negative [facility] Urobilinogen, ur <2.0 <2.0 mg/dL [facility] Nitrite, ur Negative Negative [facility] Leukocyte esterase, ur Negative Negative [facility] UA reflex comment Reflex to microscopic UA will be performed. [facility] Urine 12/15/2024 9:20 PM CDT 12/15/2024 10:23 PM CDT Narrative [facility] - 12/15/2024 10:31 PM CDT Prior to cardiac device us Shala Oliva NP LAB MICROBIOLOGY - GENERAL O RDERABLES Final Result [facility] Department [place] [address] * (ABNORMAL) Urinalysis, microscopic only (12/15/2024 9:20 PM CDT) WBC, ur 0-5 0 - 5 /HPF RBC, ur 0-2 0 - 2 /HPF [facility] Epithelial cells, squamous, ur 1-5 0 - 5 /HPF [facility] Mucous, ur Present(A) [facility] Culture Reflex Comment Reflex conditions for urine culture (WBC >10) not met. [facility] Urine 12/15/2024 9:20 PM CDT 12/15/2024 10:23 PM CDT us Shala Oliva EXPORT SALES ASSISTANT LAB URINE ORDERABLES Final R esult [facility] Department [place] [address] * (ABNORMAL) POC Blood Gas and Chemistries, Arterial - (12/15/2024 9:06 PM CDT) pH, Art POC 7.38 7.35 - 7.45 pCO2, Art POC 39 35 - 45 mmHg [facility] pO2, Art POC 154(H) 83 - 108 mmHg [facility] Na, POC 138 135 - 145 mmol/L [facility] K POC 4.2 3.3 - 4.9 mmol/L [facility] Comment: Interpretive Data Not all point of care methods assess for hemolysis. Confirm with instrument and retest K+ if not consistent with clinical signs and symptoms. Current Interpretive Data was last revised on 2023. Cl, POC 107 97 - 110 mmol/L [facility] Ionized Ca, POC 4.62 4.50 - 5.10 mg/dL [facility] Glucose, POC 144 70 - 199 mg/dL [facility] Lactate POC 0.9 0.7 - 2.0 mmol/L [facility] SO2 (chandra) arterial 99(H) 90 - 95 % [facility] Base excess, POC -1.8 mmol/L [facility] HCO3, Art POC 23 20 - 30 mmol/L [facility] Hct, POC 28.0(L) 36.3 - 45.3 % [facility] Total Hb, POC 9.4(L) 11.9 - 15.5 g/dL [facility] Blood 12/15/2024 9:06 PM CDT 12/15/2024 9:06 PM CDT Indiana Mortensen MD LAB POCT ORDERABLES - DEVICE Final Result Performing Organization Address [facility] Co de Phone Number [facility] [place] [address] * POCT glucose (12/15/2024 8:46 PM CDT) Glucose, POC 141 70 - 199 mg/dL Blood 12/15/2024 8:46 PM CDT 12/15/2024 8:46 PM CDT Result [facility] Indiana Mortensen MD LAB POCT ORDERABLES - DEVICE Final Result Performing Organization Address [facility] [place] [facility] de Phone Number [facility] [place] [address] * (ABNORMAL) Troponin I high-sensitivity 6-hour (12/15/2024 7:45 PM CDT) Pathologist [facility] Trop I hs 4,224(C) <=17 ng/L Comment: Previous critical value noted within 48 hours ago. Interpretive Data For further hscTnI resources including the diagnostic algorithm and an aid in interpretation, copy and paste this link: https://bjhlab.testcatalog.org/show/hsTrop-1 Current Interpretive Data last revised 2020. Trop I hs pct delta -3 % [facility] Trop I hs interp Insignificant CERNER BJ Blood 12/15/2024 7:45 PM CDT 12/15/2024 8:10 PM CDT Gema Bernabe NP LAB BLOOD ORDERABLES Final Re sult Performing Organization Address [facility] Co de Phone Number [facility] [place] [address] * Type and screen (12/15/2024 7:45 PM CDT) Sarah, indirect Negative ABO Rh B Negative [facility] Blood 12/15/2024 7:45 PM CDT 12/15/2024 7:59 PM CDT Narrative ALEX DA SILVA - 12/15/2024 9:15 PM CDT Has the patient had Daratumumab or Isatuximab in the past 6 months?->Unknown us Indiana Mortensen MD LAB BLOOD BANK TEST ORDERABLE S Final Result [facility] Department [place] [address] * Critical Care (12/15/2024 7:25 PM CDT) Narrative Esdras Quevedo MD - 12/15/2024 7:25 PM CDT Esdras Quevedo MD 12/19/2024 2:22 PM Critical Care Performed by: Gia Mercedes NP Authorized by: Gia Mercedes NP CRITICAL CARE: Team: 83 CTICU Shift: PM Level of Billing: Critical Care My time spent with this patient was 300 minutes: Critical Provider Statement: I have seen and examined the patient on this day of service. I have reviewed and confirmed the history, physical exam, laboratory and radiologic data as documented in the signed ICU note. I have reviewed and discussed my treatment plan with the ICU team and other medical/oncology consultant staff, making frequent assessments and decisions regarding this patient's complex medical care. Critical Care time was exclusive of time spent performing separately billed procedures, treating other patients, and teaching. This time was in addition to and separate from critical care provided by other practitioners in my group on this day of service. Critical Care was necessary to treat or prevent imminent or life-threatening deterioration of the following conditions: I spent time reviewing and interpreting data from bedside monitors, laboratory results, and imaging, I spent time discussing the management of this critically ill patient with consultants and the medical staff and I spent time documenting in the medical record us Gia Mercedes NP IN CLINIC/BEDSIDE ORDERABLES F inal Result * XR Abdomen Ap 1 Vw (12/15/2024 6:50 PM CDT) Anatomical Region Laterality Modality Body, Abdomen N/A Computed Radiogr aphy 12/16/2024 7:57 AM CDT Impressions 12/16/2024 8:02 AM CDT Comparison 12/02/2024. Gastric tube tip and side-port project over the body. Thoracic findings are described on contemporaneous chest radiograph Dictated by: Pantera De La Torre MD The radiology attending physician has personally reviewed this study, and had reviewed and/or edited this written report and agrees with it. Electronically signed by: Tracy Snider M.D. Narrative 12/16/2024 8:02 AM CDT EXAMINATION: XR ABDOMEN AP 1 VIEW HISTORY: Feeding tube. Procedure Note Tracy Snider MD - 12/16/2024 EXAMINATION: XR ABDOMEN AP 1 VIEW HISTORY: Feeding tube. IMPRESSION: Comparison 12/02/2024. Gastric tube tip and side-port project over the body. Thoracic findings are described on contemporaneous chest radiograph Dictated by: Pantera De La Torre MD The radiology attending physician has personally reviewed this study, and had reviewed and/or edited this written report and agrees with it. Electronically signed by: Tracy Snider M.D. Gema Bernabe EXPORT SALES ASSISTANT IMG XR PROCEDURES Final Resul t * XR Chest 1 View (12/15/2024 5:32 PM CDT) Anatomical Region Laterality Modality Body, Chest N/A Digital Radiogra phy 12/16/2024 8:54 AM CDT Impressions 12/16/2024 12:00 PM CDT Comparison made with 12/14/2024 7:23 PM. Left internal jugular vein transvenous pacing wire terminating in the right ventricle. Right internal jugular sheath tip in place. Median sternal plates. Aortic valve replacement. Unchanged mild right and moderate left bibasilar atelectasis. Unchanged small left pleural effusion. Stable partially obscured enlarged cardiomediastinal silhouette. No pneumothorax. Dictated by: Kristina Diaz MD The radiology attending physician has personally reviewed this study, and had reviewed and/or edited this written report and agrees with it. Electronically signed by: Felipe Souza MD, PHD Narrative 12/16/2024 12:00 PM CDT EXAMINATION: 1 view chest radiograph Procedure Note Felipe Souza MD PhD - 12/16/2024 EXAMINATION: 1 view chest radiograph IMPRESSION: Comparison made with 12/14/2024 7:23 PM. Left internal jugular vein transvenous pacing wire terminating in the right ventricle. Right internal jugular sheath tip in place. Median sternal plates. Aortic valve replacement. Unchanged mild right and moderate left bibasilar atelectasis. Unchanged small left pleural effusion. Stable partially obscured enlarged cardiomediastinal silhouette. No pneumothorax. Dictated by: Kristina Diaz MD The radiology attending physician has personally reviewed this study, and had reviewed and/or edited this written report and agrees with it. Electronically signed by: Felipe Souza MD, PHD Elizabeth Zaldivar NP IMG XR PROCEDURES Final R esult * (ABNORMAL) POC Blood Gas and Chemistries, Arterial - (12/15/2024 5:10 PM CDT) pH, Art POC 7.27(L) 7.35 - 7.45 pCO2, Art POC 49(H) 35 - 45 mmHg [facility] pO2, Art POC 239(H) 83 - 108 mmHg [facility] Na, POC 138 135 - 145 mmol/L [facility] K POC 3.8 3.3 - 4.9 mmol/L [facility] Comment: Interpretive Data Not all point of care methods assess for hemolysis. Confirm with instrument and retest K+ if not consistent with clinical signs and symptoms. Current Interpretive Data was last revised on 2023. Cl, POC 108 97 - 110 mmol/L [facility] Ionized Ca, POC 4.67 4.50 - 5.10 mg/dL [facility] Glucose, POC 152 70 - 199 mg/dL [facility] Lactate POC 1.1 0.7 - 2.0 mmol/L [facility] SO2 (chandra) arterial 100(H) 90 - 95 % [facility] Base excess, POC -4.4 mmol/L [facility] HCO3, Art POC 22 20 - 30 mmol/L [facility] Hct, POC 29.0(L) 36.3 - 45.3 % [facility] Total Hb, POC 9.5(L) 11.9 - 15.5 g/dL [facility] Blood 12/15/2024 5:10 PM CDT 12/15/2024 5:10 PM CDT Indiana Mortensen MD LAB POCT ORDERABLES - DEVICE Final Result Performing Organization Address [facility]/ZIP Co de Phone Number [facility] Department [place] [address] * (ABNORMAL) Troponin I high-sensitivity 2-hour (12/15/2024 4:03 PM CDT) Trop I hs 4,610(C) <=17 ng/L Comment: Previous critical value noted within 48 hours ago. Interpretive Data For further hscTnI resources including the diagnostic algorithm and an aid in interpretation, copy and paste this link: https://bjhlab.testcatalog.org/show/hsTrop-1 Current Interpretive Data last revised 2020. Trop I hs pct delta 5 % [facility] Trop I hs interp Equivocal [facility] Blood 12/15/2024 4:03 PM CDT 12/15/2024 4:09 PM CDT us Gema Bernabe NP LAB BLOOD ORDERABLES Final Re sult Performing Organization Address City/[facility]/ZIP Co de Phone Number [facility] Department [place] [address] * POCT glucose (12/15/2024 4:01 PM CDT) Glucose, POC 115 70 - 199 mg/dL Blood 12/15/2024 4:01 PM CDT 12/15/2024 4:01 PM CDT Indiana Mortensen MD LAB POCT ORDERABLES - DEVICE Final Result Performing Organization Address City/[facility]/ZIP Co de Phone Number [facility] Department [place] [address] * Infection Prevention Justice auris PCR, surveillance Axilla/Groin (12/15/2024 2:27 PM CDT) Justice auris DNA Not Detected Not Detected [facility] Comment: Interpretive Data Testing performed by [facility] Molecular Infectious Disease Laboratory using the Stacie shirin 6800 Justice auris assay. This assay detects DNA from Justice auris using Real-Time PCR. This assay is laboratory developed and is not cleared by the [place] Food and Drug Administration. The performance characteristics have been verified by the [facility] Molecular Infectious Disease Laboratory. Axilla/Groin 12/15/2024 2:27 PM CDT 12/15/2024 3:06 PM CDT Narrative [facility] - 12/16/2024 12:10 AM CDT Order placed by [facility] due to ring surveillance. Instant Order Generic Provider LAB MICROBIOLOGY - GENERAL ORDERABLES Final Result Performing Organization Address [facility] Co de Phone Number [facility] Department [place] [address] [facility] * (ABNORMAL) Troponin I high-sensitivity series (baseline, 2hr, 4hr, 6hr) (12/15/2024 2:24 PM CDT) Trop I hs 4,370(C) <=17 ng/L Comment: Interpretive Data For further hscTnI resources including the diagnostic algorithm and an aid in interpretation, copy and paste this link: https://bjhlab.testcatalog.org/show/hsTrop-1 Current Interpretive Data last revised 2020. Blood 12/15/2024 2:24 PM CDT 12/15/2024 3:08 PM CDT us Gema Bernabe EXPORT SALES ASSISTANT LAB BLOOD ORDERABLES Final Re sult Performing Organization Address City/[facility]/ZIP Co de Phone Number [facility] [place] [address] * Critical result callback Cardio chemistry (12/15/2024 2:24 PM CDT) Date Notified [id number] Time Notified 1548 ALEX [facility] Test name Trop I hs base ALEX [facility] Called/Read Back Kalie JOHNSON [facility] Credentials RN ALEX [facility] Called By TP ALEX [facility] Blood 12/15/2024 2:24 PM CDT 12/15/2024 3:08 PM CDT us Gema Bernabe EXPORT SALES ASSISTANT LAB BLOOD ORDERABLES Final Re sult Performing Organization Address [facility] Co de Phone Number [facility] [place] [address] * Continuous Video EEG (12/15/2024 2:11 PM CDT) Anatomical Region Laterality Modality EEG Narrative 12/15/2024 2:11 PM CDT Video-EEG Report Patient Name: Adi Flowers [facility] Medical Record Number (MRN): [id number] [facility] Record: [id number] Date of (): 1960 Ordering Provider: Elo Lehman MD CC: Pacheco Mejia Start Time: 12/14/2024 12:47:40 PM End Time: 12/15/2024 10:18:43 AM Introduction: Ms. Flowers is a 64 y.o. female with a history of KJOO (PAP non-compliant), HTN, anxiety, hx of gastric bypass (2014), HLD, CAD, HFpEF, GERD, iron deficiency anemia, and chronic neck and back pain, s/p AVR and CABG x1 on 12/09/24, presenting with seizure-like activity. The EEG was performed to evaluate for seizures. This is a report of continuous video-EEG monitoring. High definition digital video and digital EEG were recorded continuously with a [employer] Isonas EEG acquisition system. This was a 32 channel EEG with additional anterior temporal electrodes. Electrodes were placed with collodion following the 10/20 International System. The patient was monitored and observed continuously by technical personnel. Digital seizure and spike detection were utilized during the recording. EEG description: Epoch 1 : 12/14/2024 12:47:40 PM to 12/15/2024 8:00:00 AM BACKGROUND: The background was continuous, disorganized and there was a 9 Hz posterior dominant rhythm. The background also included diffuse irregular theta and polymorphic delta activity. Sleep structures were seen. The record showed variability. Hyperventilation and photic strobe stimulation were not performed. SPORADIC DISCHARGES: None. PERIODIC OR RHYTHMIC PATTERNS: None. SEIZURES: None. EVENTS: There was one clinical event at 1:23 PM during a procedure. Clinically, there was bilateral extremities irregular shaking movements. Electrographically, there was bilateral diffuse theta/delta slowing, followed by diffuse voltage suppression, and subsequent returning of the interictal background. There was significant artifact in the EKG leads in this period. EKG: There was significant artifact throughout the tracing. Epoch 2 : 12/15/2024 8:00:00 AM to 12/15/2024 10:18:43 AM BACKGROUND: The background was continuous, disorganized and there was a 9 Hz posterior dominant rhythm. The background also included diffuse irregular theta and polymorphic delta activity. Sleep structures were seen. The record showed variability. Hyperventilation and photic strobe stimulation were not performed. SPORADIC DISCHARGES: None. PERIODIC OR RHYTHMIC PATTERNS: None. SEIZURES: None. EVENTS: None. EKG: There was significant artifact throughout the tracing. Interpretation: No clinical or electrographic seizures were recorded during this study. The noted clinical event, based on the overall clinical and electrographic features, was most consistent with a convulsive syncope, though there was excessive artifact in the EKG leads during the event. The interictal EEG was abnormal due to mild generalized slowing. Generalized slowing indicates diffuse cerebral dysfunction as seen in metabolic, toxic, or diffuse or multifocal structural abnormalities. These findings were discussed with the treating physicians on an at least twice daily basis. By signing this report, the attending Electroencephalographer certifies that he/she personally reviewed the electrodiagnostics study and has edited this report to fully conform with his/her intent. Signing Attending: Remy Mott MD PhD us Indiana Mortensen MD NEUROLOGY ORDERABLES Final Re sult * TRANSTHORACIC ECHO (TTE) COMPLETE W DOPPLER/CF W CONTRAST (12/15/2024 12:37 PM CDT) EF Mod BP 69 % CONS SCIMAGE Anatomical Region Laterality Modality Ultrasound 12/15/2024 11:1 0 AM CDT Narrative 12/15/2024 12:50 PM CDT [facility] [place] [address] Transthoracic Echocardiographic Report Patient Name: ADI FLOWERS M : 1960 (64y 1m) Gender: F Study Date: 12/15/2024 11:10:49 AM Ht(Inch): 63 Wt(Lb): 298.94 BSA: 2.46 Childhood Teacher: Andreia Loera [facility] Location: [id number] Order Provider: GIA MERCEDES Heart Rate: 115 BMI: 52.95 BP: 116 / 64 Ref Provider: GIA MERCEDES PROCEDURES: Echocardiographic Report: Transthoracic complete echo with strain imaging and contrast, 2D, spectral and tissue Doppler, color flow Doppler, M-mode. Contrast: Contrast Enhancement was Employed: Due to suboptimal image quality with inadequate visualization of at least 2 of 16 LV wall segments in any view after initial imaging. Perflutren contrast was administered using the volume necessary to obtain adequate images. 0.8 ml Optison Administered, (2.2 ml wasted). Technically difficult study due to: Poor acoustic windows. INDICATIONS: heart failure patient with acute type 2 heart block. CONCLUSIONS: 1. S/p BioAVR, Kono, 1-V CABG. 2. Normal left ventricular size based on volume index. Concentric LV remodeling. Normal left ventricular systolic function. The Ejection Fraction (Taveras's) is measured at 69 %. The average global longitudinal strain is abnormal. 3. Normal right ventricular size. Moderate right ventricular hypokinesis. 4. The mean transaortic gradient is 10 mmHg. A bioprosthetic valve is present in the aortic position (27-mm Inspiris). ATTESTATION: I have personally reviewed and interpreted this study without fellow or resident. - DISCLAIMER: The study images and the final report will be retained in the patient chart by the Echo Laboratory for the legally required time period. This chart constitutes the legal record of any testing performed. FINDINGS: Left Ventricle: Normal left ventricular size based on volume index. Concentric LV remodeling. Normal left ventricular systolic function. The Ejection Fraction (Taveras's) is measured at 69 %. The average global longitudinal strain is abnormal. The LV global strain is: -2.5 %. Paradoxical interventricular septal motion consistent with prior cardiac or thoracic surgery. Right Ventricle: Normal right ventricular size. Moderate right ventricular hypokinesis. Left Atrium: The left atrium is normal in size. Right Atrium: The right atrium is normal in size. Mitral Valve: Severe calcification. Aortic Valve: Mild aortic valve stenosis. The mean transaortic gradient is 10 mmHg. The aortic valve area by the continuity equation (using VTI) is 1.42 cm2. Aortic valve dimensionless index is 0.66. A bioprosthetic valve is present in the aortic position (27-mm Inspiris). Tricuspid Valve: Normal tricuspid valve structure. No tricuspid regurgitation. Pulmonic Valve: The pulmonic valve is not well visualized due to not imaged. Pericardium: Normal pericardium without pericardial effusion. Aorta: Normal aortic root size when indexed. IVC: IVC not visualized due to not imaged. Rhythm: The rhythm during the study was sinus tachycardia. Incidental Findings: S/p BioAVR, Kono, 1-V CABG. MEASUREMENTS: 2D/MM Value Range Doppler Value Range LVIDd 2D 3.80 cm [ 3.80 - 5.20 ] AV Peak John 2.0 m/s [ 1.0 - 1.7 ] LVIDs 2D 2.44 cm [ 2.20 - 3.50 ] AV Peak PG 16.00 mmHg IVSd 2D 1.17 cm [ 0.60 - 0.90 ] AV Mean PG 10 mmHg LVPWd 2D 1.10 cm [ 0.60 - 0.90 ] AV VTI 22.3 cm LV Thickness Ratio 1.1 LVOT Peak John 1.1 m/s [ 0.7 - 1.1 ] LV FS 2D 35.67 % [ 27.00 - 45.00 ] LVOT Peak PG 4.84 mmHg LV Mass 2D 142.78 g LVOT Mean PG 3 mmHg LV Mass Index 2D 58.04 g/m2 LVOT VTI 14.8 cm RWT 0.58 LVOT Diam 1.65 cm EDV Mod BP 82.23 ml [ 46.00 - 106.00 ] PINA VTI 1.42 cm2 LV EDV Index 33.43 ml/m2 LVOT/AV VTI 0.66 - Dimensionless index (DVI) ESV Mod BP 25.25 ml [ 14.00 - 42.00 ] RV S` 3.79 cm/sec EF Mod BP 69 % [ 54 - 74 ] PV Peak John 1.6 m/s [ 0.4 - 0.8 ] LV GLS -2.5 % [ -25.0 - -18.0 ] PV Peak PG 10.24 mmHg LA Length 4C 6.40 cm LA Length 2C 6.32 cm LA Volume BP 70.84 ml LA Volume Index 28.80 ml/m2 [ 16.00 - 34.00 ] RV Base Dimen 2D 3.8 cm [ 2.5 - 4.2 ] TAPSE 1.15 cm [ 1.71 - 5.00 ] AoR Diam 2D 2.46 cm [ 2.70 - 3.70 ] Ao Root Index 1.00 cm/m2 [ 1.00 - 2.00 ] Electronically Signed By: Guy Coloey MD 12/15/2024 12:50:04 PM CDT Procedure Note Guy Cooley MD - 12/15/2024 [facility] [place] [address] Transthoracic Echocardiographic Report Patient Name: ADI FLOWERS M : 1960 (64y 1m) Gender: F Study Date: 12/15/2024 11:10:49 AM Ht(Inch): 63 Wt(Lb): 298.94 BSA: 2.46 Childhood Teacher: Andreia Loera [facility] Location: [id number] Order Provider:GIA MERCDEES Heart Rate: 115 BMI: 52.95 BP: 116 / 64 Ref Provider: GIA MERCEDES PROCEDURES: Echocardiographic Report: Transthoracic complete echo with strain imagingand contrast, 2D, spectral and tissue Doppler, color flow Doppler, M-mode. Contrast: Contrast Enhancement was Employed: Due to suboptimal imagequality with inadequate visualization of at least 2 of 16 LV wall segments in any viewafter initial imaging. Perflutren contrast was administered using the volume necessaryto obtain adequate images. 0.8 ml Optison Administered, (2.2 ml wasted). Technically difficult study due to: Poor acoustic windows. INDICATIONS: heart failure patient with acute type 2 heart block. CONCLUSIONS: 1. S/p BioAVR, Kono, 1-V CABG. 2. Normal left ventricular size based on volume index. Concentric LVremodeling. Normal left ventricular systolic function. The Ejection Fraction (Taveras's) ismeasured at 69 %. The average global longitudinal strain is abnormal. 3. Normal right ventricular size. Moderate right ventricularhypokinesis. 4. The mean transaortic gradient is 10 mmHg. A bioprosthetic valve ispresent in the aortic position (27-mm Inspiris). ATTESTATION: I have personally reviewed and interpreted this study without fellow orresident. - DISCLAIMER: The study images and the final report will be retained in the patientchart by the Echo Laboratory for the legally required time period. This chart constitutesthe legal record of any testing performed. FINDINGS: Left Ventricle: Normal left ventricular size based on volume index.Concentric LV remodeling. Normal left ventricular systolic function. The EjectionFraction (Taveras's) is measured at 69 %. The average global longitudinal strain is abnormal.The LV global strain is: -2.5 %. Paradoxical interventricular septal motion consistentwith prior cardiac or thoracic surgery. Right Ventricle: Normal right ventricular size. Moderate right ventricularhypokinesis. Left Atrium: The left atrium is normal in size. Right Atrium: The right atrium is normal in size. Mitral Valve: Severe calcification. Aortic Valve: Mild aortic valve stenosis. The mean transaortic gradient is10 mmHg. The aortic valve area by the continuity equation (using VTI) is 1.42 cm2.Aortic valve dimensionless index is 0.66. A bioprosthetic valve is present in theaortic position (27-mm Inspiris). Tricuspid Valve: Normal tricuspid valve structure. No tricuspidregurgitation. Pulmonic Valve: The pulmonic valve is not well visualized due to notimaged. Pericardium: Normal pericardium without pericardial effusion. Aorta: Normal aortic root size when indexed. IVC: IVC not visualized due to not imaged. Rhythm: The rhythm during the study was sinus tachycardia. Incidental Findings: S/p BioAVR, Kono, 1-V CABG. MEASUREMENTS: 2D/MM Value Range DopplerValue Range LVIDd 2D 3.80 cm [ 3.80 - 5.20 ] AV Peak Vel2.0 m/s [ 1.0 - 1.7 ] LVIDs 2D 2.44 cm [ 2.20 - 3.50 ] AV Peak PG16.00 mmHg IVSd 2D 1.17 cm [ 0.60 - 0.90 ] AV Mean PG10 mmHg LVPWd 2D 1.10 cm [ 0.60 - 0.90 ] AV VTI22.3 cm LV Thickness Ratio 1.1 LVOT Peak Vel1.1 m/s [ 0.7 - 1.1 ] LV FS 2D 35.67 % [ 27.00 - 45.00 ] LVOT Peak PG4.84 mmHg LV Mass 2D 142.78 g LVOT Mean PG3 mmHg LV Mass Index 2D 58.04 g/m2 LVOT VTI14.8 cm RWT 0.58 LVOT Diam1.65 cm EDV Mod BP 82.23 ml [ 46.00 - 106.00 ] PINA VTI1.42 cm2 LV EDV Index 33.43 ml/m2 LVOT/AV VTI0.66 - Dimensionless index (DVI) ESV Mod BP 25.25 ml [ 14.00 - 42.00 ] RV S`3.79 cm/sec EF Mod BP 69 % [ 54 - 74 ] PV Peak Vel1.6 m/s [ 0.4 - 0.8 ] LV GLS -2.5 % [ -25.0 - -18.0 ] PV Peak PG10.24 mmHg LA Length 4C6.40 cm LA Length 2C6.32 cm LA Volume BP70.84 ml LA Volume Index 28.80 ml/m2 [ 16.00 - 34.00 ] RV Base Dimen 2D 3.8 cm [ 2.5 - 4.2 ] TAPSE 1.15 cm [ 1.71 - 5.00 ] AoR Diam 2D 2.46 cm [ 2.70 - 3.70 ] Ao Root Index 1.00 cm/m2 [ 1.00 - 2.00 ] Electronically Signed By: Guy Cooley MD 12/15/2024 12:50:04 PM CDT Gia Mercedes EXPORT SALES ASSISTANT CV ECHO PROCEDURES Final Resul t * POCT glucose (12/15/2024 11:36 AM CDT) [facility] Signature Glucose, POC 100 70 - 199 mg/dL Blood 12/15/2024 11:3 6 AM CDT 12/15/2024 11:36 AM CDT Indiana Mortensen MD LAB POCT ORDERABLES - DEVICE Final Result Performing Organization Address City/[facility]/ZIP Co de Phone Number [facility]LEX [facility] [place] [address] * POCT glucose (12/15/2024 8:33 AM CDT) Glucose, POC 152 70 - 199 mg/dL Blood 12/15/2024 8:33 AM CDT 12/15/2024 8:33 AM CDT Indiana Mortensen MD LAB POCT ORDERABLES - DEVICE Final Result Performing Organization Address [facility] Co de Phone Number ALEX [facility] Department [place] [address] * Critical Care (12/15/2024 7:16 AM CDT) Narrative Esdras Quevedo MD - 12/15/2024 7:16 AM CDT Esdras Quevedo MD 12/16/2024 5:10 PM Critical Care Performed by: Gema Bernabe NP Authorized by: Gema Bernabe NP CRITICAL CARE: Team: 83 CTICU Shift: AM Level of Billing: Critical Care My time spent with this patient was 180 minutes: Critical Provider Statement: I have seen and examined the patient on this day of service. I have reviewed and confirmed the history, physical exam, laboratory and radiologic data as documented in the signed ICU note. I have reviewed and discussed my treatment plan with the ICU team and other medical/oncology consultant staff, making frequent assessments and decisions regarding this patient's complex medical care. Critical Care time was exclusive of time spent performing separately billed procedures, treating other patients, and teaching. This time was in addition to and separate from critical care provided by other practitioners in my group on this day of service. Critical Care was necessary to treat or prevent imminent or life-threatening deterioration of the following conditions: I spent time reviewing and interpreting data from bedside monitors, laboratory results, and imaging, I spent time discussing the management of this critically ill patient with consultants and the medical staff and I spent time documenting in the medical record us Gema Bernabe EXPORT SALES ASSISTANT IN CLINIC/BEDSIDE ORDERABLES Final Result * POCT glucose (12/15/2024 4:05 AM CDT) Glucose, POC 166 70 - 199 mg/dL Blood 12/15/2024 4:05 AM CDT 12/15/2024 4:05 AM CDT us Indiana Mortensen MD LAB POCT ORDERABLES - DEVICE Final Result [facility]LEX [facility] [place] [address] * eGFR (12/15/2024 12:05 AM CDT) eGFR >90 >=60 mL/min/1. 73 m2 Comment: Interpretive Data [...] interpretive data was last reviewed 2021. Blood 12/15/2024 12:0 5 AM CDT 12/15/2024 12:20 AM CDT us Angela Cox NP LAB BLOOD ORDERABLES Final Result [facility] [place] [address] * POCT glucose (12/15/2024 12:05 AM CDT) [facility] Glucose, POC 155 70 - 199 mg/dL Blood 12/15/2024 12:0 5 AM CDT 12/15/2024 12:05 AM CDT us Indiana Mortensen MD LAB POCT ORDERABLES - DEVICE Final Result Performing Organization Address City/[facility]/ZIP Co de Phone Number [facility] Department [place] [address] * (ABNORMAL) CBC without differential (12/15/2024 12:05 AM CDT) [facility] WBC 19.76(H) 3.80 - 9.90 K/cumm Hgb 8.4(L) 11.9 - 15.5 g/dL [facility] Hct 24.7(L) 35.6 - 45.5 % [facility] Plt 292 150 - 400 K/cumm [facility] MPV 9.2 9.1 - 12.3 fL [facility] RBC 2.79(L) 3.90 - 5.20 M/cumm [facility] MCV 88.5 81.3 - 96.4 fL [facility] MCH 30.1 27.1 - 33.3 pg [facility] MCHC 34.0 32.3 - 35.7 g/dL [facility] RDW CV 13.8 11.1 - 14.9 % [facility] RDW SD 44.5 35.7 - 48.1 fL [facility] NRBC abs 0.20(H) 0.00 - 0.01 K/cumm [facility] Blood 12/15/2024 12:0 5 AM CDT 12/15/2024 12:20 AM CDT us Angela Cox NP LAB BLOOD ORDERABLES Final Result Performing Organization Address City/[facility]/ZIP Co de Phone Number [facility] [place] [address] * (ABNORMAL) Phosphorus (12/15/2024 12:05 AM CDT) [facility] Phosphorus, pl 4.8(H) 2.3 - 4.5 mg/dL Blood 12/15/2024 12:0 5 AM CDT 12/15/2024 12:13 AM CDT Angela Cox NP LAB BLOOD ORDERABLES Final Result [facility] [place] [address] * Magnesium (12/15/2024 12:05 AM CDT) [facility] Magnesium 2.0 1.4 - 2.5 mg/dL Blood 12/15/2024 12:0 5 AM CDT 12/15/2024 12:13 AM CDT Indiana Mortensen MD LAB BLOOD ORDERABLES Final Re sult Performing Organization Address City/[facility]/ZIP Co de Phone Number [facility] Department [place] [address] * (ABNORMAL) Basic metabolic panel (12/15/2024 12:05 AM CDT) [facility] Sodium 140 135 - 145 mmol/L Potassium, pl 3.9 3.3 - 4.9 mmol/L [facility] Chloride 104 97 - 110 mmol/L [facility] CO2 25 22 - 32 mmol/L [facility] Anion gap 11 2 - 15 mmol/L [facility] BUN 20 6 - 25 mg/dL [facility] Creatinine 0.72 0.60 - 1.10 mg/dL [facility] Glucose 138 70 - 199 mg/dL [facility] Comment: Interpretive Data Fasting glucose >/= 126 [...] classification and Diagnosis of Diabetes Diabetes Care 2021; 46: S19-S40. Current interpretive data was last revised 2022. Calcium 8.3(L) 8.5 - 10.3 mg/dL [facility] Blood 12/15/2024 12:0 5 AM CDT 12/15/2024 12:13 AM CDT us Angela Cox NP LAB BLOOD ORDERABLES Final Result Performing Organization Address City/[facility]/ZIP Co de Phone Number [facility] Department [place] [address] * POCT glucose (12/14/2024 8:48 PM CDT) [facility] Glucose, POC 176 70 - 199 mg/dL Blood 12/14/2024 8:48 PM CDT 12/14/2024 8:48 PM CDT us Indiana Mortensen MD LAB POCT ORDERABLES - DEVICE Final Result Performing Organization Address City/[facility]/ZIP Co de Phone Number [facility] Department [place] [address] * XR Chest 1 View (12/14/2024 7:24 PM CDT) Anatomical Region Laterality Modality Body, Chest N/A Digital Radiogra phy 12/15/2024 8:57 AM CDT Impressions 12/15/2024 9:24 AM CDT Comparison made with 12/14/2024 1:23 AM. Left internal jugular vein transvenous pacing wire in the right atrium. Right internal jugular sheath tip in place with areas of possible kinking. Median sternal plates. Aortic valve replacement. Unchanged mild right and moderate left bibasilar atelectasis. Superimposed pneumonia cannot be excluded. Small left pleural effusion. Stable partially obscured enlarged cardiomediastinal silhouette. No pneumothorax. Dictated by: Kristina Diaz MD The radiology attending physician has personally reviewed this study, and had reviewed and/or edited this written report and agrees with it. Electronically signed by: Sunny Child M.D. Narrative 12/15/2024 9:24 AM CDT EXAMINATION: 1 view chest radiograph Procedure Note Sunny Child MD - 12/15/2024 EXAMINATION: 1 view chest radiograph IMPRESSION: Comparison made with 12/14/2024 1:23 AM. Left internal jugular vein transvenous pacing wire in the right atrium. Right internal jugular sheath tip in place with areas of possible kinking. Median sternal plates. Aortic valve replacement. Unchanged mild right and moderate left bibasilar atelectasis. Superimposed pneumonia cannot be excluded. Small left pleural effusion. Stable partially obscured enlarged cardiomediastinal silhouette. No pneumothorax. Dictated by: Kristina Diaz MD The radiology attending physician has personally reviewed this study, and had reviewed and/or edited this written report and agrees with it. Electronically signed by: Sunny Child M.D. Alecia Acosta NP IMG XR PROCEDURES Final Result * Critical Care (12/14/2024 6:09 PM CDT) Narrative Esdras Quevedo MD - 12/14/2024 6:09 PM CDT Esdras Quevedo MD 12/19/2024 2:22 PM Critical Care Performed by: Gia Mercedes NP Authorized by: Gia Mercedes NP CRITICAL CARE: Team: 83 CTICU Shift: PM Level of Billing: Critical Care My time spent with this patient was 65 minutes: Critical Provider Statement: I have seen and examined the patient on this day of service. I have reviewed and confirmed the history, physical exam, laboratory and radiologic data as documented in the signed ICU note. I have reviewed and discussed my treatment plan with the ICU team and other medical/oncology consultant staff, making frequent assessments and decisions regarding this patient's complex medical care. Critical Care time was exclusive of time spent performing separately billed procedures, treating other patients, and teaching. This time was in addition to and separate from critical care provided by other practitioners in my group on this day of service. Critical Care was necessary to treat or prevent imminent or life-threatening deterioration of the following conditions: I spent time reviewing and interpreting data from bedside monitors, laboratory results, and imaging, I spent time discussing the management of this critically ill patient with consultants and the medical staff and I spent time documenting in the medical record us Gia Mercedes EXPORT SALES ASSISTANT IN CLINIC/BEDSIDE ORDERABLES F inal Result * eGFR (12/14/2024 4:34 PM CDT) [facility] eGFR >90 >=60 mL/min/1. 73 m2 Comment: Interpretive Data [...] of Race in Diagnosing Kidney Disease, JASN 202). The CKD-EPI equation should not be used for patients with unstable renal function and has not been validated in children and those over 70. Current interpretive data was last reviewed 2021. Blood 12/14/2024 4:34 PM CDT 12/14/2024 6:27 PM CDT us Elizabeth Zaldivar EXPORT SALES ASSISTANT LAB BLOOD ORDERABLES Brenda l Result [facility]LEX [facility] Department [place] [address] * POCT glucose (12/14/2024 4:34 PM CDT) Pathologist [facility] Glucose, POC 168 70 - 199 mg/dL Blood 12/14/2024 4:34 PM CDT 12/14/2024 4:34 PM CDT us Indiana Mortensen MD LAB POCT ORDERABLES - DEVICE Final Result Performing Organization Address [facility]/ZIP Co de Phone Number [facility] Department [place] [address] * (ABNORMAL) Basic metabolic panel (12/14/2024 4:34 PM CDT) [facility] Sodium 141 135 - 145 mmol/L Potassium, pl 3.8 3.3 - 4.9 mmol/L [facility] Chloride 105 97 - 110 mmol/L [facility] CO2 23 22 - 32 mmol/L [facility] Anion gap 13 2 - 15 mmol/L [facility] BUN 22 6 - 25 mg/dL [facility] Creatinine 0.73 0.60 - 1.10 mg/dL [facility] Glucose 151 70 - 199 mg/dL [facility] Comment: Interpretive Data Fasting glucose >/= 126 [...] classification and Diagnosis of Diabetes Diabetes Care 2021; 46: S19-S40. Current interpretive data was last revised 2022. Calcium 8.2(L) 8.5 - 10.3 mg/dL [facility] Blood 12/14/2024 4:34 PM CDT 12/14/2024 6:27 PM CDT us Elizabeth Zaldivar NP LAB BLOOD ORDERABLES Brenda l Result Performing Organization Address [facility]/ZIP Co de Phone Number [facility] Department [place] [address] * POCT glucose (12/14/2024 12:43 PM CDT) Glucose, POC 151 70 - 199 mg/dL Blood 12/14/2024 12:4 3 PM CDT 12/14/2024 12:43 PM CDT us Indiana Mortensen MD LAB POCT ORDERABLES - DEVICE Final Result ALEX [facility] [place] [address] * eGFR (12/14/2024 7:40 AM CDT) eGFR 87 >=60 mL/min/1. 73 m2 Comment: Interpretive Data [...] interpretive data was last reviewed 2021. Blood 12/14/2024 7:40 AM CDT 12/14/2024 8:04 AM CDT us Elizabeth Zaldivar NP LAB BLOOD ORDERABLES Brenda l Result ALEX [facility] Department [place] [address] * Basic metabolic panel (12/14/2024 7:40 AM CDT) Sodium 143 135 - 145 mmol/L Potassium, pl 4.2 3.3 - 4.9 mmol/L [facility] Chloride 106 97 - 110 mmol/L [facility] CO2 25 22 - 32 mmol/L [facility] Anion gap 12 2 - 15 mmol/L [facility] BUN 25 6 - 25 mg/dL [facility] Creatinine 0.77 0.60 - 1.10 mg/dL [facility] Glucose 135 70 - 199 mg/dL [facility] Comment: Interpretive Data Fasting glucose >/= 126 [...] interpretive data was last revised 2022. Calcium 8.8 8.5 - 10.3 mg/dL [facility] Blood 12/14/2024 7:40 AM CDT 12/14/2024 8:04 AM CDT us Elizabeth Zaldivar NP LAB BLOOD ORDERABLES Brenda wharton Result [facility] Department [place] [address] * POCT glucose (12/14/2024 7:36 AM CDT) Pathologist [facility] Glucose, POC 138 70 - 199 mg/dL Blood 12/14/2024 7:36 AM CDT 12/14/2024 7:36 AM CDT us Indiana Mortensen MD LAB POCT ORDERABLES - DEVICE Final Result Performing Organization Address [facility] de Phone Number ALEX [facility] [place] [address] * eGFR (12/14/2024 4:57 AM CDT) eGFR 85 >=60 mL/min/1. 73 m2 Comment: Interpretive Data [...] interpretive data was last reviewed 2021. Blood 12/14/2024 4:5 7 AM CDT 12/14/2024 5:10 AM CDT Gia Mercedes NP LAB BLOOD ORDERABLES Final Res ult Performing Organization Address [facility] de Phone Number ALEX [facility] Department [place] [address] * Lactate, whole blood (12/14/2024 4:57 AM CDT) Lactate, bld 1.2 0.7 - 2.0 mmol/L Blood 12/14/2024 4:57 AM CDT 12/14/2024 5:04 AM CDT Gia Mercedes EXPORT SALES ASSISTANT LAB BLOOD ORDERABLES Final Res ult Performing Organization Address [facility] Co de Phone Number [facility] [place] [address] * (ABNORMAL) Phosphorus (12/14/2024 4:57 AM CDT) Phosphorus, pl 4.8(H) 2.3 - 4.5 mg/dL Blood 12/14/2024 4:57 AM CDT 12/14/2024 5:10 AM CDT Gia Erwin Raynesford EXPORT SALES ASSISTANT LAB BLOOD ORDERABLES Final Res ult Performing Organization Address [facility] Co de Phone Number [facility] [place] [address] * Magnesium (12/14/2024 4:57 AM CDT) Pathologist [facility] Magnesium 2.0 1.4 - 2.5 mg/dL Blood 12/14/2024 4:57 AM CDT 12/14/2024 5:10 AM CDT Gia Erwin [place] EXPORT SALES ASSISTANT LAB BLOOD ORDERABLES Final Res ult Performing Organization Address [facility] de Phone Number [facility] [place] [address] * (ABNORMAL) Blood gas, arterial (12/14/2024 4:57 AM CDT) pH, Art 7.46(H) 7.35 - 7.45 PCO2, Arterial 36 35 - 45 mmHg [facility] PO2, Arterial 184(H) 83 - 108 mmHg [facility] HCO3 Art (Calculated) 26 20 - 30 mmol/L [facility] BE, art 2 mmol/L [facility] Comment: Interpretive Data No Reference Range Established Current Interpretive Data was last revised on 2017 O2 Sat Art (Measured) 100(H) 90 - 95 % [facility] Blood 12/14/2024 4:57 AM CDT 12/14/2024 5:04 AM CDT Gia Mercedes EXPORT SALES ASSISTANT LAB BLOOD ORDERABLES Final [facility] ult [facility] Department [place] [address] * (ABNORMAL) Basic metabolic panel (12/14/2024 4:57 AM CDT) [facility] Sodium 141 135 - 145 mmol/L Potassium, pl 4.2 3.3 - 4.9 mmol/L [facility] Chloride 107 97 - 110 mmol/L [facility] CO2 26 22 - 32 mmol/L [facility] Anion gap 8 2 - 15 mmol/L [facility] BUN 24 6 - 25 mg/dL [facility] Creatinine 0.79 0.60 - 1.10 mg/dL [facility] Glucose 140 70 - 199 mg/dL [facility] Comment: Interpretive Data Fasting glucose >/= 126 [...] classification and Diagnosis of Diabetes Diabetes Care 2021; 46: S19-S40. Current interpretive data was last revised 2022. Calcium 8.4(L) 8.5 - 10.3 mg/dL [facility] Blood 12/14/2024 4:57 AM CDT 12/14/2024 5:10 AM CDT Gia Mercedes EXPORT SALES ASSISTANT LAB BLOOD ORDERABLES Final Res ult Performing Organization Address [facility]/ZIP Co de Phone Number [facility] Department [place] [address] * POCT glucose (12/14/2024 4:55 AM CDT) Glucose, POC 156 70 - 199 mg/dL Blood 12/14/2024 4:55 AM CDT 12/14/2024 4:55 AM CDT Indiana Mortensen MD LAB POCT ORDERABLES - DEVICE Final Result [facility] Department [place] [address] * (ABNORMAL) POC Blood Gas and Chemistries, Arterial - (12/14/2024 2:44 AM CDT) Pathologist [facility] pH, Art POC 7.44 7.35 - 7.45 pCO2, Art POC 34(L) 35 - 45 mmHg [facility] pO2, Art POC 135(H) 83 - 108 mmHg [facility] Na, POC 141 135 - 145 mmol/L [facility] K POC 3.9 3.3 - 4.9 mmol/L [facility] Comment: Interpretive Data Not all point of care methods assess for hemolysis. Confirm with instrument and retest K+ if not consistent with clinical signs and symptoms. Current Interpretive Data was last revised on 2023. Cl, POC 108 97 - 110 mmol/L [facility] Ionized Ca, POC 4.83 4.50 - 5.10 mg/dL [facility] Glucose, POC 162 70 - 199 mg/dL [facility] Lactate POC 2.2(H) 0.7 - 2.0 mmol/L [facility] SO2 (chandra) arterial 100(H) 90 - 95 % [facility] Base excess, POC -0.8 mmol/L [facility] HCO3, Art POC 23 20 - 30 mmol/L [facility] Hct, POC 25.0(L) 36.3 - 45.3 % [facility] Total Hb, POC 8.2(L) 11.9 - 15.5 g/dL [facility] Blood 12/14/2024 2:44 AM CDT 12/14/2024 2:44 AM CDT us Tsuyoshi Kaneko MD LAB POCT ORDERABLES - DEVICE Final Result [facility] Department [place] [address] * PA INSJ NON-TUNNELED CENTRAL VENOUS CATH AGE 7 YR/> (12/14/2024 1:52 AM CDT) Narrative Esdras Quevedo MD - 12/14/2024 1:52 AM CDT Esdras Quevedo MD 12/19/2024 2:18 PM Central Line Insertion Date/Time: 12/14/2024 1:52 AM Performed by: Hieu Silver MD Authorized by: Hieu Silver MD [place] Protocol: Informed consent: Unable to obtain due to emergent status Allergies confirmed: yes Immediately prior to the procedure a time out was called: a verbal verification by the procedure participants confirmed correct patient identity, correct site/side marked and visible (if applicable); agreement on procedure to be done; and correct patient positioning Indications: Vascular access Anesthesia (see MAR for exact dosage) Anesthesia method: Local infiltration Local anesthetic: Lidocaine 1% Skin preparation: Skin prepped with 2% chlorhexidine Provider preparation: Cap, full body drape, gloves, gown, handwashing, mask and partial body drape Location: Left internal jugular Technique: Landmarks identified Ultrasound guidance: Real-time needle guidance and pre-procedure diagnostic Assessment: Blood return through all ports Catheter type: Introducer sheath Catheter size: 6 Fr Needle inserted, vein idenitified then guidewire inserted easily into vein: Yes Number of attempts: 1 Successful placement: Yes Line securement: Line sutured and dressing applied Patient tolerance: Patient tolerated the procedure well with no immediate complications Post Procedure Debrief: All guidewires, needles, sponges or other items are accounted for: yes 6 Fr. Cordis placed for Transvenous pacer placement, TVP wire advanced into RV with ventricular capture. Wire secured at 50cm. us Hieu Silver MD IN CLINIC/BEDSIDE ORDERA BLES Final Result * PA INSJ NON-TUNNELED CENTRAL VENOUS CATH AGE 7 YR/> (12/14/2024 1:45 AM CDT) Narrative Esdras Quevedo MD - 12/14/2024 1:45 AM CDT Esdras Quevedo MD 12/19/2024 2:18 PM Central Line Insertion Date/Time: 12/14/2024 1:45 AM Performed by: Hieu Silver MD Authorized by: Hieu Silver MD [place] Protocol: Informed consent: Unable to obtain due to emergent status Imaging: Pertinent imaging reviewed, correctly oriented and match to patient identifiersImmediately prior to the procedure a time out was called: a verbal verification by the procedure participants confirmed correct patient identity, correct site/side marked and visible (if applicable); agreement on procedure to be done; and correct patient positioning Indications: Vascular access Anesthesia (see MAR for exact dosage) Anesthesia method: Local infiltration Local anesthetic: Lidocaine 1% Patient position: Flat Skin preparation: Skin prepped with 2% chlorhexidine Provider preparation: Cap Location: Right internal jugular Technique: Landmarks identified Ultrasound guidance: Pre-procedure diagnostic and real-time needle guidance Assessment: Blood return through all ports Catheter type: Introducer sheath Catheter size: 6 Fr Needle inserted, vein idenitified then guidewire inserted easily into vein: Yes Number of attempts: 1 Successful placement: Yes Line securement: Line sutured 6 Fr. Cordis placed to facilitate transvenous pacer placement, however unable to pass wire into RV after multiple attempts. TVP wire withdrawn. Cordis left in place for vascular access. us Hieu Silver MD IN CLINIC/BEDSIDE ORDERA BLES Final Result * PA ARTL CATHJ/CANNULJ MNTR/TRANSFUSION SPX PRQ (12/14/2024 1:44 AM CDT) Narrative Esdras Quevedo MD - 12/14/2024 1:44 AM CDT Esdras Quevedo MD 12/19/2024 2:18 PM Arterial Line Insertion Date/Time: 12/14/2024 1:44 AM Performed by: Hieu Silver MD Authorized by: Hieu Silver MD [place] Protocol: RN Notified of Procedure: yes Informed consent: Unable to obtain due to emergent status Patient's stated name/ matches armband: Yes Allergies confirmed: yes Imaging: Pertinent imaging reviewed, correctly oriented and match to patient identifiers Supplies, devices and special equipment are available: yes Site/side marked: yes Immediately prior to the procedure a time out was called: a verbal verification by the procedure participants confirmed correct patient identity, correct site/side marked and visible (if applicable); agreement on procedure to be done; and correct patient positioning Indications: multiple ABGs and hemodynamic monitoring Location: Right radial Anesthesia: Local infiltration Local anesthetic: Lidocaine 1% Patient skin preparation: chlorhexidine Patient preparation: Cap Catheter gauge: 20 Single percutaneous needle puncture: Yes Seldinger technique used: Yes Number of attempts: 1 Placement confirmed with arterial waveform: Yes Post-procedure: Line sutured and dressing applied Post-procedure CMS: Normal Patient tolerance: Patient tolerated the procedure well with no immediate complications Complications: no complications noted during insertion us Hieu Silver MD IV THERAPY ORDERABLES Fi nal Result * XR Chest 1 View (12/14/2024 1:28 AM CDT) Anatomical Region Laterality Modality Body, Chest N/A Digital Radiogra phy 12/14/2024 8:11 AM CDT Impressions 12/14/2024 8:11 AM CDT 1. 12/14/2024 12:17 AM: A feeding tube courses below the hgfvx-dh-[id number]. A right internal jugular transvenous pacing wire is directed towards the right subclavian vein. An aortic valve replacement is present. Sternal plates are aligned. The lung volumes remain small. Moderate bibasilar opacities a favored to represent atelectasis given the small lung volumes, however aspiration and/or pneumonia could appear similarly in the appropriate clinical context. There may be trace bilateral pleural effusions. No pneumothorax is identified. The cardiomediastinal silhouette is unchanged. 2. 12/14/2024 12:50 AM: A right internal jugular transvenous pacing wire has been retracted into the right internal jugular vein. There has been placement of a new left internal jugular transvenous pacing wire with tip overlying the confluence of the brachiocephalic veins. A feeding tube remains present coursing below the ezblz-dp-uzgh. Aortic valve replacement remains present. Sternal plates remain aligned. The lung volumes remain unchanged with unchanged moderate left and mild right basilar opacities. There may be trace bilateral pleural effusions. There is no pneumothorax. The cardiomediastinal silhouette is unchanged. 3. 12/14/2024 1:23 AM: A left internal jugular transvenous pacing wire has been advanced with tip now looped within the right atrium. A right internal jugular sheath has been placed. A feeding tube courses below the knrrc-qb-bzcp. An aortic valve replacement remains present. Sternal plates remain aligned. There are redemonstrated bibasilar airspace opacities which are not significantly changed and may represent atelectasis versus aspiration and/or pneumonia in the appropriate clinical context. A small left pleural effusion is present, slightly increased from prior. There is no pneumothorax. The cardiomediastinal silhouette is unchanged. Electronically signed by: Peter Spears M.D. Narrative 12/14/2024 8:11 AM CDT EXAMINATION: XR CHEST 1 VIEW COMPARISON: 12/13/2024 7:55 PM Procedure Note Peter Spears MD PhD - 12/14/2024 EXAMINATION: XR CHEST 1 VIEW COMPARISON: 12/13/2024 7:55 PM IMPRESSION: 1. 12/14/2024 12:17 AM: A feeding tube courses below the tqpam-xq-mhyz. A right internal jugular transvenous pacing wire is directed towards the right subclavian vein. An aortic valve replacement is present. Sternal plates are aligned. The lung volumes remain small. Moderate bibasilar opacities a favored to represent atelectasis given the small lung volumes, however aspiration and/or pneumonia could appear similarly in the appropriate clinical context. There may be trace bilateral pleural effusions. No pneumothorax is identified. The cardiomediastinal silhouette is unchanged. 2. 12/14/2024 12:50 AM: A right internal jugular transvenous pacing wire has been retracted into the right internal jugular vein. There has been placement of a new left internal jugular transvenous pacing wire with tip overlying the confluence of the brachiocephalic veins. A feeding tube remains present coursing below the krnlw-da-vsuu. Aortic valve replacement remains present. Sternal plates remain aligned. The lung volumes remain unchanged with unchanged moderate left and mild right basilar opacities. There may be trace bilateral pleural effusions. There is no pneumothorax. The cardiomediastinal silhouette is unchanged. 3. 12/14/2024 1:23 AM: A left internal jugular transvenous pacing wire has been advanced with tip now looped within the right atrium. A right internal jugular sheath has been placed. A feeding tube courses below the andqv-nn-fciw. An aortic valve replacement remains present. Sternal plates remain aligned. There are redemonstrated bibasilar airspace opacities which are not significantly changed and may represent atelectasis versus aspiration and/or pneumonia in the appropriate clinical context. A small left pleural effusion is present, slightly increased from prior. There is no pneumothorax. The cardiomediastinal silhouette is unchanged. Electronically signed by: Peter Spears M.D. Gia Mercedes EXPORT SALES ASSISTANT IMG XR PROCEDURES Final Result * XR Chest 1 View (12/14/2024 1:15 AM CDT) Anatomical Region Laterality Modality Body, Chest N/A Digital Radiogra phy 12/14/2024 8:11 AM CDT Impressions 12/14/2024 8:11 AM CDT 1. 12/14/2024 12:17 AM: A feeding tube courses below the cwxzr-ms-ldar. A right internal jugular transvenous pacing wire is directed towards the right subclavian vein. An aortic valve replacement is present. Sternal plates are aligned. The lung volumes remain small. Moderate bibasilar opacities a favored to represent atelectasis given the small lung volumes, however aspiration and/or pneumonia could appear similarly in the appropriate clinical context. There may be trace bilateral pleural effusions. No pneumothorax is identified. The cardiomediastinal silhouette is unchanged. 2. 12/14/2024 12:50 AM: A right internal jugular transvenous pacing wire has been retracted into the right internal jugular vein. There has been placement of a new left internal jugular transvenous pacing wire with tip overlying the confluence of the brachiocephalic veins. A feeding tube remains present coursing below the qsyzd-qg-leiq. Aortic valve replacement remains present. Sternal plates remain aligned. The lung volumes remain unchanged with unchanged moderate left and mild right basilar opacities. There may be trace bilateral pleural effusions. There is no pneumothorax. The cardiomediastinal silhouette is unchanged. 3. 12/14/2024 1:23 AM: A left internal jugular transvenous pacing wire has been advanced with tip now looped within the right atrium. A right internal jugular sheath has been placed. A feeding tube courses below the vymih-ge-qgvs. An aortic valve replacement remains present. Sternal plates remain aligned. There are redemonstrated bibasilar airspace opacities which are not significantly changed and may represent atelectasis versus aspiration and/or pneumonia in the appropriate clinical context. A small left pleural effusion is present, slightly increased from prior. There is no pneumothorax. The cardiomediastinal silhouette is unchanged. Electronically signed by: Peter Spears M.D. Narrative 12/14/2024 8:11 AM CDT EXAMINATION: XR CHEST 1 VIEW COMPARISON: 12/13/2024 7:55 PM Procedure Note Peter Spears MD PhD - 12/14/2024 EXAMINATION: XR CHEST 1 VIEW COMPARISON: 12/13/2024 7:55 PM IMPRESSION: 1. 12/14/2024 12:17 AM: A feeding tube courses below the bdiam-xk-emyn. A right internal jugular transvenous pacing wire is directed towards the right subclavian vein. An aortic valve replacement is present. Sternal plates are aligned. The lung volumes remain small. Moderate bibasilar opacities a favored to represent atelectasis given the small lung volumes, however aspiration and/or pneumonia could appear similarly in the appropriate clinical context. There may be trace bilateral pleural effusions. No pneumothorax is identified. The cardiomediastinal silhouette is unchanged. 2. 12/14/2024 12:50 AM: A right internal jugular transvenous pacing wire has been retracted into the right internal jugular vein. There has been placement of a new left internal jugular transvenous pacing wire with tip overlying the confluence of the brachiocephalic veins. A feeding tube remains present coursing below the xizmq-mu-haca. Aortic valve replacement remains present. Sternal plates remain aligned. The lung volumes remain unchanged with unchanged moderate left and mild right basilar opacities. There may be trace bilateral pleural effusions. There is no pneumothorax. The cardiomediastinal silhouette is unchanged. 3. 12/14/2024 1:23 AM: A left internal jugular transvenous pacing wire has been advanced with tip now looped within the right atrium. A right internal jugular sheath has been placed. A feeding tube courses below the boqcf-kq-xgzt. An aortic valve replacement remains present. Sternal plates remain aligned. There are redemonstrated bibasilar airspace opacities which are not significantly changed and may represent atelectasis versus aspiration and/or pneumonia in the appropriate clinical context. A small left pleural effusion is present, slightly increased from prior. There is no pneumothorax. The cardiomediastinal silhouette is unchanged. Electronically signed by: Peter Spears M.D. Gia Mercedes EXPORT SALES ASSISTANT IMG XR PROCEDURES Final Result * XR Chest 1 View (12/14/2024 12:20 AM CDT) Anatomical Region Laterality Modality Body, Chest N/A Digital Radiogra phy 12/14/2024 8:11 AM CDT Impressions 12/14/2024 8:11 AM CDT 1. 12/14/2024 12:17 AM: A feeding tube courses below the odzpe-ra-ujnh. A right internal jugular transvenous pacing wire is directed towards the right subclavian vein. An aortic valve replacement is present. Sternal plates are aligned. The lung volumes remain small. Moderate bibasilar opacities a favored to represent atelectasis given the small lung volumes, however aspiration and/or pneumonia could appear similarly in the appropriate clinical context. There may be trace bilateral pleural effusions. No pneumothorax is identified. The cardiomediastinal silhouette is unchanged. 2. 12/14/2024 12:50 AM: A right internal jugular transvenous pacing wire has been retracted into the right internal jugular vein. There has been placement of a new left internal jugular transvenous pacing wire with tip overlying the confluence of the brachiocephalic veins. A feeding tube remains present coursing below the opjsb-jf-jxaa. Aortic valve replacement remains present. Sternal plates remain aligned. The lung volumes remain unchanged with unchanged moderate left and mild right basilar opacities. There may be trace bilateral pleural effusions. There is no pneumothorax. The cardiomediastinal silhouette is unchanged. 3. 12/14/2024 1:23 AM: A left internal jugular transvenous pacing wire has been advanced with tip now looped within the right atrium. A right internal jugular sheath has been placed. A feeding tube courses below the xldps-xh-gshf. An aortic valve replacement remains present. Sternal plates remain aligned. There are redemonstrated bibasilar airspace opacities which are not significantly changed and may represent atelectasis versus aspiration and/or pneumonia in the appropriate clinical context. A small left pleural effusion is present, slightly increased from prior. There is no pneumothorax. The cardiomediastinal silhouette is unchanged. Electronically signed by: Peter Spears M.D. Narrative 12/14/2024 8:11 AM CDT EXAMINATION: XR CHEST 1 VIEW COMPARISON: 12/13/2024 7:55 PM Procedure Note Peter Spears MD PhD - 12/14/2024 EXAMINATION: XR CHEST 1 VIEW COMPARISON: 12/13/2024 7:55 PM IMPRESSION: 1. 12/14/2024 12:17 AM: A feeding tube courses below the pcatq-ip-hiyx. A right internal jugular transvenous pacing wire is directed towards the right subclavian vein. An aortic valve replacement is present. Sternal plates are aligned. The lung volumes remain small. Moderate bibasilar opacities a favored to represent atelectasis given the small lung volumes, however aspiration and/or pneumonia could appear similarly in the appropriate clinical context. There may be trace bilateral pleural effusions. No pneumothorax is identified. The cardiomediastinal silhouette is unchanged. 2. 12/14/2024 12:50 AM: A right internal jugular transvenous pacing wire has been retracted into the right internal jugular vein. There has been placement of a new left internal jugular transvenous pacing wire with tip overlying the confluence of the brachiocephalic veins. A feeding tube remains present coursing below the kusdf-jq-ezry. Aortic valve replacement remains present. Sternal plates remain aligned. The lung volumes remain unchanged with unchanged moderate left and mild right basilar opacities. There may be trace bilateral pleural effusions. There is no pneumothorax. The cardiomediastinal silhouette is unchanged. 3. 12/14/2024 1:23 AM: A left internal jugular transvenous pacing wire has been advanced with tip now looped within the right atrium. A right internal jugular sheath has been placed. A feeding tube courses below the yqfbr-rf-mgbo. An aortic valve replacement remains present. Sternal plates remain aligned. There are redemonstrated bibasilar airspace opacities which are not significantly changed and may represent atelectasis versus aspiration and/or pneumonia in the appropriate clinical context. A small left pleural effusion is present, slightly increased from prior. There is no pneumothorax. The cardiomediastinal silhouette is unchanged. Electronically signed by: Peter Spears M.D. Gia Mercedes EXPORT SALES ASSISTANT IMG XR PROCEDURES Final Result * (ABNORMAL) POC Blood Gas and Chemistries, Arterial - (12/13/2024 11:32 PM CDT) pH, Art POC 7.56(H) 7.35 - 7.45 pCO2, Art POC 23(L) 35 - 45 mmHg [facility] pO2, Art POC 138(H) 83 - 108 mmHg [facility] Na, POC 140 135 - 145 mmol/L [facility] K POC 4.0 3.3 - 4.9 mmol/L [facility] Comment: Interpretive Data Not all point of care methods assess for hemolysis. Confirm with instrument and retest K+ if not consistent with clinical signs and symptoms. Current Interpretive Data was last revised on 2023. Cl, POC 109 97 - 110 mmol/L [facility] Ionized Ca, POC 4.83 4.50 - 5.10 mg/dL [facility] Glucose, POC 192 70 - 199 mg/dL [facility] Lactate POC 2.3(H) 0.7 - 2.0 mmol/L [facility] SO2 (chandra) arterial 99(H) 90 - 95 % [facility] Base excess, POC -0.9 mmol/L [facility] HCO3, Art POC 21 20 - 30 mmol/L [facility] Hct, POC 26.0(L) 36.3 - 45.3 % [facility] Total Hb, POC 8.5(L) 11.9 - 15.5 g/dL [facility] Blood 12/13/2024 11:3 2 PM CDT 12/13/2024 11:32 PM CDT Indiana Mortensen MD LAB POCT ORDERABLES - DEVICE Final Result Performing Organization Address City/[facility]/ZIP Co de Phone Number [facility] [place] [address] * Potassium, whole blood (12/13/2024 10:24 PM CDT) Potassium, bld 4.1 3.3 - 4.9 mmol/L Blood 12/13/2024 10:2 4 PM CDT 12/13/2024 10:32 PM CDT Gia Mercedes NP LAB BLOOD ORDERABLES Final Res ult Performing Organization Address [facility] Co de Phone Number [facility] [place] [address] * eGFR (12/13/2024 10:24 PM CDT) eGFR 82 >=60 mL/min/1. 73 m2 Comment: Interpretive Data [...] interpretive data was last reviewed 2021. Blood 12/13/2024 10:2 4 PM CDT 12/13/2024 10:56 PM CDT Angela Cox EXPORT SALES ASSISTANT LAB BLOOD ORDERABLES Final Result [facility] Department [place] [address] * Calcium, ionized (12/13/2024 10:24 PM CDT) [facility] Calcium, Ionized 4.50 4.50 - 5.10 mg/dL Blood 12/13/2024 10:2 4 PM CDT 12/13/2024 10:32 PM CDT Gia Mercedes EXPORT SALES ASSISTANT LAB BLOOD ORDERABLES Final Res ult Performing Organization Address [facility] Co de Phone Number [facility] [place] [address] * (ABNORMAL) CBC without differential (12/13/2024 10:24 PM CDT) [facility] WBC 16.96(H) 3.80 - 9.90 K/cumm Hgb 7.8(L) 11.9 - 15.5 g/dL [facility] Hct 23.6(L) 35.6 - 45.5 % [facility] Plt 224 150 - 400 K/cumm [facility] MPV 9.0(L) 9.1 - 12.3 fL [facility] RBC 2.61(L) 3.90 - 5.20 M/cumm [facility] MCV 90.4 81.3 - 96.4 fL [facility] MCH 29.9 27.1 - 33.3 pg [facility] MCHC 33.1 32.3 - 35.7 g/dL [facility] RDW CV 14.0 11.1 - 14.9 % [facility] RDW SD 45.9 35.7 - 48.1 fL [facility] NRBC abs 0.12(H) 0.00 - 0.01 K/cumm [facility] Blood 12/13/2024 10:2 4 PM CDT 12/13/2024 10:37 PM CDT Angela Cox EXPORT SALES ASSISTANT LAB BLOOD ORDERABLES Final Result Performing Organization Address [facility] de Phone Number [facility] [place] [address] * Phosphorus (12/13/2024 10:24 PM CDT) [facility] Phosphorus, pl 4.0 2.3 - 4.5 mg/dL Blood 12/13/2024 10:2 4 PM CDT 12/13/2024 10:32 PM CDT Angela Cox EXPORT SALES ASSISTANT LAB BLOOD ORDERABLES Final Result Performing Organization Address [facility] [place] de Phone Number [facility] Department [place] [address] * Magnesium (12/13/2024 10:24 PM CDT) [facility] Magnesium 2.1 1.4 - 2.5 mg/dL Blood 12/13/2024 10:2 4 PM CDT 12/13/2024 10:32 PM CDT Indiana Mortensen MD LAB BLOOD ORDERABLES Final Re sult Performing Organization Address [facility] [place] de Phone Number [facility] [place] [address] * (ABNORMAL) Basic metabolic panel (12/13/2024 10:24 PM CDT) [facility] Sodium 143 135 - 145 mmol/L Potassium, pl 4.3 3.3 - 4.9 mmol/L [facility] Chloride 109 97 - 110 mmol/L [facility] CO2 25 22 - 32 mmol/L [facility] Anion gap 9 2 - 15 mmol/L [facility] BUN 24 6 - 25 mg/dL [facility] Creatinine 0.81 0.60 - 1.10 mg/dL [facility] Glucose 137 70 - 199 mg/dL [facility] Comment: Interpretive Data Fasting glucose >/= 126 [...] classification and Diagnosis of Diabetes Diabetes Care 2021; 46: S19-S40. Current interpretive data was last revised 2022. Calcium 8.4(L) 8.5 - 10.3 mg/dL [facility] Blood 12/13/2024 10:2 4 PM CDT 12/13/2024 10:32 PM CDT Angela Cox EXPORT SALES ASSISTANT LAB BLOOD ORDERABLES Final Result [facility] Department [place] [address] * XR Chest 1 View (12/13/2024 8:06 PM CDT) Anatomical Region Laterality Modality Body, Chest N/A Computed Radiogr aphy 12/13/2024 10:2 6 PM CDT Impressions 12/13/2024 10:26 PM CDT 1. 12/13/2024 8:32 AM: A feeding tube courses below the deaks-kw-ojbd. Aortic valve replacement is present. Sternal plates are aligned. There has been removal of right internal jugular central venous catheter. The lung volumes remain small bilaterally with moderate bibasilar atelectasis and a small left pleural effusion. No pneumothorax is identified. The cardiomediastinal silhouette is unchanged. 2. 12/13/2024 5:36 PM: A feeding tube courses below the osowg-au-qtqg. An aortic valve replacement is present. Sternal plates are aligned. The lung volumes remain small with mild bibasilar atelectasis. There may be a trace left pleural effusion. No pneumothorax is identified. The cardiomediastinal silhouette is unchanged. 3. 12/13/2024 7:55 PM: There is no significant interval change. No pneumothorax is identified. Electronically signed by: Peter Spears M.D. Narrative 12/13/2024 10:26 PM CDT EXAMINATION: XR CHEST 1 VIEW COMPARISON: 12/12/2024 7:23 AM Procedure Note Peter Spears MD PhD - 12/13/2024 EXAMINATION: XR CHEST 1 VIEW COMPARISON: 12/12/2024 7:23 AM IMPRESSION: 1. 12/13/2024 8:32 AM: A feeding tube courses below the exetq-wt-okov. Aortic valve replacement is present. Sternal plates are aligned. There has been removal of right internal jugular central venous catheter. The lung volumes remain small bilaterally with moderate bibasilar atelectasis and a small left pleural effusion. No pneumothorax is identified. The cardiomediastinal silhouette is unchanged. 2. 12/13/2024 5:36 PM: A feeding tube courses below the knobw-km-frhe. An aortic valve replacement is present. Sternal plates are aligned. The lung volumes remain small with mild bibasilar atelectasis. There may be a trace left pleural effusion. No pneumothorax is identified. The cardiomediastinal silhouette is unchanged. 3. 12/13/2024 7:55 PM: There is no significant interval change. No pneumothorax is identified. Electronically signed by: Peter Spears M.D. Alecia Acosta NP IMG XR PROCEDURES Final Result * POCT glucose (12/13/2024 7:44 PM CDT) Glucose, POC 152 70 - 199 mg/dL Blood 12/13/2024 7:44 PM CDT 12/13/2024 7:44 PM CDT Indiana Mortensen MD LAB POCT ORDERABLES - DEVICE Final Result [facility] Department [place] [address] * Critical Care (12/13/2024 6:17 PM CDT) Narrative Esdras Quevedo MD - 12/13/2024 6:17 PM CDT Esdras Quevedo MD 12/19/2024 2:22 PM Critical Care Performed by: Gia Mercedes NP Authorized by: Gia Mercedes NP CRITICAL CARE: Team: 83 CTICU Shift: PM Level of Billing: Critical Care My time spent with this patient was 280 minutes: Critical Provider Statement: I have seen and examined the patient on this day of service. I have reviewed and confirmed the history, physical exam, laboratory and radiologic data as documented in the signed ICU note. I have reviewed and discussed my treatment plan with the ICU team and other medical/oncology consultant staff, making frequent assessments and decisions regarding this patient's complex medical care. Critical Care time was exclusive of time spent performing separately billed procedures, treating other patients, and teaching. This time was in addition to and separate from critical care provided by other practitioners in my group on this day of service. Critical Care was necessary to treat or prevent imminent or life-threatening deterioration of the following conditions: I spent time reviewing and interpreting data from bedside monitors, laboratory results, and imaging, I spent time discussing the management of this critically ill patient with consultants and the medical staff and I spent time documenting in the medical record Gia Mercedes NP IN CLINIC/BEDSIDE ORDERABLES F inal Result * XR Chest 1 View (12/13/2024 5:50 PM CDT) Anatomical Region Laterality Modality Body, Chest N/A Computed Radiogr aphy 12/13/2024 10:2 6 PM CDT Impressions 12/13/2024 10:26 PM CDT 1. 12/13/2024 8:32 AM: A feeding tube courses below the nfqfs-xv-youx. Aortic valve replacement is present. Sternal plates are aligned. There has been removal of right internal jugular central venous catheter. The lung volumes remain small bilaterally with moderate bibasilar atelectasis and a small left pleural effusion. No pneumothorax is identified. The cardiomediastinal silhouette is unchanged. 2. 12/13/2024 5:36 PM: A feeding tube courses below the epyze-qh-uhhy. An aortic valve replacement is present. Sternal plates are aligned. The lung volumes remain small with mild bibasilar atelectasis. There may be a trace left pleural effusion. No pneumothorax is identified. The cardiomediastinal silhouette is unchanged. 3. 12/13/2024 7:55 PM: There is no significant interval change. No pneumothorax is identified. Electronically signed by: Peter Spears M.D. Narrative 12/13/2024 10:26 PM CDT EXAMINATION: XR CHEST 1 VIEW COMPARISON: 12/12/2024 7:23 AM Procedure Note Peter Spears MD PhD - 12/13/2024 EXAMINATION: XR CHEST 1 VIEW COMPARISON: 12/12/2024 7:23 AM IMPRESSION: 1. 12/13/2024 8:32 AM: A feeding tube courses below the oluhz-wi-kook. Aortic valve replacement is present. Sternal plates are aligned. There has been removal of right internal jugular central venous catheter. The lung volumes remain small bilaterally with moderate bibasilar atelectasis and a small left pleural effusion. No pneumothorax is identified. The cardiomediastinal silhouette is unchanged. 2. 12/13/2024 5:36 PM: A feeding tube courses below the yopag-rb-oxaf. An aortic valve replacement is present. Sternal plates are aligned. The lung volumes remain small with mild bibasilar atelectasis. There may be a trace left pleural effusion. No pneumothorax is identified. The cardiomediastinal silhouette is unchanged. 3. 12/13/2024 7:55 PM: There is no significant interval change. No pneumothorax is identified. Electronically signed by: Peter Spears M.D. Indiana Mortensen MD IM XR PROCEDURES Final Resul t * eGFR (12/13/2024 2:54 PM CDT) eGFR 90 >=60 mL/min/1. 73 m2 Comment: Interpretive Data [...] interpretive data was last reviewed 2021. Blood 12/13/2024 2:54 PM CDT 12/13/2024 3:04 PM CDT Elizabeth Zaldivar EXPORT SALES ASSISTANT LAB BLOOD ORDERABLES Brenda l Result [facility] Department [place] [address] * (ABNORMAL) Basic metabolic panel (12/13/2024 2:54 PM CDT) Sodium 143 135 - 145 mmol/L Potassium, pl 4.1 3.3 - 4.9 mmol/L [facility] Chloride 107 97 - 110 mmol/L [facility] CO2 26 22 - 32 mmol/L [facility] Anion gap 10 2 - 15 mmol/L [facility] BUN 24 6 - 25 mg/dL [facility] Creatinine 0.75 0.60 - 1.10 mg/dL [facility] Glucose 187 70 - 199 mg/dL [facility] Comment: Interpretive Data Fasting glucose >/= 126 [...] classification and Diagnosis of Diabetes Diabetes Care 2021; 46: S19-S40. Current interpretive data was last revised 2022. Calcium 8.2(L) 8.5 - 10.3 mg/dL [facility] Blood 12/13/2024 2:54 PM CDT 12/13/2024 3:04 PM CDT us Elizabeth Zaldivar NP LAB BLOOD ORDERABLES Brenda l Result Performing Organization Address City/[facility]/ZIP Co de Phone Number [facility] Department [place] [address] * POCT glucose (12/13/2024 2:39 PM CDT) [facility] Signature Glucose, POC 176 70 - 199 mg/dL Blood 12/13/2024 2:39 PM CDT 12/13/2024 2:39 PM CDT us Indiana Mortensen MD LAB POCT ORDERABLES - DEVICE Final Result Performing Organization Address City/[facility] Co de Phone Number [facility] Department [place] [address] * EEG (12/13/2024 2:04 PM CDT) Anatomical Region Laterality Modality EEG Narrative 12/14/2024 12:24 PM CDT Routine EEG Report Patient Name: Adi Flowers [facility] [place] [facility] Medical Record Number (MRN): [id number] [facility] Record: [id number] Date of (): 1960 EEG Date: 12/13/2024 Ordering Provider: Elizabeth Zaldivar NP CC: Pacheco Mejia Start Time: 12/13/2024 1:27:05 PM End Time: 12/13/2024 1:48:18 PM Introduction: Ms. Flowers is a 64 y.o. female presenting with seizure-like activity in the setting of s/p aortic stenosis s/p AVR, CABG x 1. EEG was performed to evaluate for seizures. This is a 32 channel EEG recording acquired on a [employer] EEG-1200 acquisition system. Scalp electrodes were placed according to the international 10-20 System. The analog EEG was filtered from 1-70 Hz and digitally sampled at 200 Hz. The record was then reformatted for review in bipolar and referential montages. EEG Description: There was a 7-8 Hz posterior rhythm. The background also included bilateral, diffuse, asynchronous admixed theta and delta range activity. The record showed variability. Hyperventilation was not performed. Photic strobe stimulation elicited no abnormalities. There were no focal, lateralized or epileptiform abnormalities. Interpretation: The EEG was abnormal due to mild to moderate generalized slowing. Generalized slowing indicates diffuse cerebral dysfunction as seen in metabolic, toxic, or diffuse or multifocal structural abnormalities. By signing this report, the attending Electroencephalographer certifies that he/she personally reviewed the electrodiagnostics study and has edited this report to fully conform with his/her intent. Signing Attending: Júnior Gavin MD us Elizabeth Zaldivar NP NEUROLOGY ORDERABLES Brenda l Result * NURSE STAFF Evaluation and Treatment (12/13/2024 1:42 PM CDT) Narrative Cristal Thomas SLP - 12/13/2024 1:42 PM CDT Cristal Thomas SLP 12/13/2024 2:25 PM Speech-Language Pathology: Clinical Bedside Swallow HPI/PMH Pt is a 64 yo F admitted with CC of aortic stenosis s/p AVR, CABG x1. PMHx of KOJO, HTN, anxiety, hx of gastric bypass, HLD, CAD, GERD, anemia, chronic neck and back pain. While attempting to undergo knee replacement 2007, pt with heart murmur and has been completing echocardiograms annually to monitor aortic valve stenosis. Pt completed [facility] with showed multivessel coronary disease. 12/09: s/p AVR, aortic root enlargement and CABG x1 Respiratory/Intubation Status: 3LNC, 40% FIO2, intubated 12/09-12/09 Imaging: CXR 12/12: Unchanged small lung volumes. Decreased opacification of the right hemithorax, which may represent resolution of a layering right-sided pleural effusion. There is a possible small layering left-sided effusion with mild left basilar atelectasis. No pneumothorax. Precautions: Fall PLOF: none Current Diet Order: NPO with NGT Baseline Diet: reg/reg per pt report General Information Adi Flowers 12/13/24 General Observations: Pt sitting upright in bed at 90*, agreeable to ST Pain Score: 0 - No pain If pain >4, was RN notified? N/A Patient Stated Goal/Comments: none stated Clinical Impression & Professional Recommendations Diet Solids Recommendation: Regular Diet Liquids Recommendations: Thin/regular Recommended Form of Medications: As tolerated Compensatory Strategies/Modifications: Slow rate, Small bites, Single sips Postural Recommendations: Upright Assistance with feeding/swallowing: Assist with aggressive oral hygiene prior to po Specialty Instructions: (Please assist pt with oral care 2-3 times a day, including teeth brushing (gums and tongue) to improve the oral biome and reduce the risk of aspiration related complications (i.e., PNA) Dysphagia Diagnosis: No suspected dysphagia, oral-pharyngeal function appears WFL Overall Clinical Impression/Additional Information: Pt was placed upright in bed, pt with dried secretions on hard palate and on tongue. Pt states she has no hx of dysphagia and eats a reg/reg diet. Pt with adequate oral motor skills, no deficits are noted. Pt was given ice chips, tsp sips of thin liquids, straw sips of thins, large consecutive straw drinking (more than 3 ounces drank at a time) as pt impulsive seen taking large sips, bites of puree and bites of regular solids. Pt with no overt s/sx of aspiration is noted across all trials Assessment Details & Results Consistencies Administered: Ice chips, Thin liquids, Purees, Solids MASA: Draper Assessment of Swallowing Ability (MASA) Alertness: Alert Cooperation: Cooperative Auditory Comprehension: No abnormality detected Respiration: Chest clear Respiratory Rate (for swallow): Able to control breath rate for swallow Aphasia: No abnormality detected Apraxia: No abnormality detected Dysarthria: No abnormality detected Saliva: No abnormality detected Lip Seal: No abnormality detected Tongue Movement: Full range of motion Tongue Strength: No abnormality detected Tongue Coordination: No abnormality detected Gag: No gag (DNT) Palate: No abnormality detected Cough Reflex: No deficit noted Voluntary Cough: No abnormality detected Voice: No abnormality detected Trach: No trach Oral Preparation: No deficits noted Bolus Clearance: Fully cleared Oral Transit: No deficits noted Pharyngeal Phase: Immediate laryngeal elevation Pharyngeal Response: No deficits noted MASA Score: 196 Dysphagia: No dysphagia detected (178-200) Aspiration Risk: No aspiration risk (170-200) Plan NURSE STAFF Frequency of Services during current admission: Discharge from this Service (for swallow) NURSE STAFF Recommendation (Add'l Services): Defer at this time Further Assessment/Follow up Indicated: Next Visit Plan:No further ST warranted for swallow Additional Referrals: none Please reference care plan for treatment goals, if indicated. Discharge Summary Statement If this is the last swallow therapy visit, this serves as the discharge summary. us Alecia Acosta NP NURSE STAFF ORDERABLES Final Re sult * CT Head WO Contrast (12/13/2024 12:12 PM CDT) Anatomical Region Laterality Modality Head and Neck N/A Computed Tomogra phy 12/13/2024 12:2 7 PM CDT Impressions 12/13/2024 12:27 PM CDT No acute intracranial process. Electronically signed by: Eva Farooq M.D. Narrative 12/13/2024 12:27 PM CDT EXAMINATION: CT head without contrast HISTORY: New onset seizure TECHNIQUE: CT of the head was performed with images acquired from skull base to vertex without intravenous contrast. COMPARISON: None Available. FINDINGS: There is no acute intracranial hemorrhage. Ventricles are of normal size and morphology. No mass effect or midline shift is present. The lambert-white matter differentiation is normal. The visualized portions of the orbits are normal. The visualized portions of the mastoids are normal. The visualized portions of the paranasal sinuses are normal. No fractures are identified. Procedure Note Eva Farooq MD - 12/13/2024 EXAMINATION: CT head without contrast HISTORY: New onset seizure TECHNIQUE: CT of the head was performed with images acquired from skull base to vertex without intravenous contrast. COMPARISON: None Available. FINDINGS: There is no acute intracranial hemorrhage. Ventricles are of normal size and morphology. No mass effect or midline shift is present. The lambert-white matter differentiation is normal. The visualized portions of the orbits are normal. The visualized portions of the mastoids are normal. The visualized portions of the paranasal sinuses are normal. No fractures are identified. IMPRESSION: No acute intracranial process. Electronically signed by: Eva Farooq M.D. Elizabeth Zaldivar NP IMG CT PROCEDURES Final R esult * POCT glucose (12/13/2024 11:29 AM CDT) Glucose, POC 150 70 - 199 mg/dL Blood 12/13/2024 11:2 9 AM CDT 12/13/2024 11:29 AM CDT us Indiana Mortensen MD LAB POCT ORDERABLES - DEVICE Final Result [facility] Department [place] [address] * eGFR (12/13/2024 10:20 AM CDT) eGFR 82 >=60 mL/min/1. 73 m2 Comment: Interpretive Data [...] interpretive data was last reviewed 2021. Blood 12/13/2024 10:2 0 AM CDT 12/13/2024 10:33 AM CDT Elizabeth Zaldivar NP LAB BLOOD ORDERABLES Brenda l Result [facility] Department [place] [address] * (ABNORMAL) Basic metabolic panel (12/13/2024 10:20 AM CDT) Pathologist [facility] Sodium 147(H) 135 - 145 mmol/L Potassium, pl 4.2 3.3 - 4.9 mmol/L [facility] Chloride 112(H) 97 - 110 mmol/L [facility] CO2 27 22 - 32 mmol/L [facility] Anion gap 8 2 - 15 mmol/L [facility] BUN 27(H) 6 - 25 mg/dL [facility] Creatinine 0.81 0.60 - 1.10 mg/dL [facility] Glucose 150 70 - 199 mg/dL [facility] Comment: Interpretive Data Fasting glucose >/= 126 [...] interpretive data was last revised 2022. Calcium 8.9 8.5 - 10.3 mg/dL [facility] Blood 12/13/2024 10:2 0 AM CDT 12/13/2024 10:33 AM CDT Elizabeth Zaldivar NP LAB BLOOD ORDERABLES Brenda l Result Performing Organization Address [facility]/ZIP Co de Phone Number [facility] Department [place] [address] * POCT glucose (12/13/2024 8:34 AM CDT) Glucose, POC 147 70 - 199 mg/dL Blood 12/13/2024 8:34 AM CDT 12/13/2024 8:34 AM CDT us Indiana Mortensen MD LAB POCT ORDERABLES - DEVICE Final Result [facility] Department [place] [address] * XR Chest 1 View (12/13/2024 8:32 AM CDT) Anatomical Region Laterality Modality Body, Chest N/A Computed Radiogr aphy 12/13/2024 10:2 6 PM CDT Impressions 12/13/2024 10:26 PM CDT 1. 12/13/2024 8:32 AM: A feeding tube courses below the lysii-fq-klmq. Aortic valve replacement is present. Sternal plates are aligned. There has been removal of right internal jugular central venous catheter. The lung volumes remain small bilaterally with moderate bibasilar atelectasis and a small left pleural effusion. No pneumothorax is identified. The cardiomediastinal silhouette is unchanged. 2. 12/13/2024 5:36 PM: A feeding tube courses below the fnknm-rj-vmnb. An aortic valve replacement is present. Sternal plates are aligned. The lung volumes remain small with mild bibasilar atelectasis. There may be a trace left pleural effusion. No pneumothorax is identified. The cardiomediastinal silhouette is unchanged. 3. 12/13/2024 7:55 PM: There is no significant interval change. No pneumothorax is identified. Electronically signed by: Peter Spears M.D. Narrative 12/13/2024 10:26 PM CDT EXAMINATION: XR CHEST 1 VIEW COMPARISON: 12/12/2024 7:23 AM Procedure Note Peter Spears MD PhD - 12/13/2024 EXAMINATION: XR CHEST 1 VIEW COMPARISON: 12/12/2024 7:23 AM IMPRESSION: 1. 12/13/2024 8:32 AM: A feeding tube courses below the idgqd-ue-qymh. Aortic valve replacement is present. Sternal plates are aligned. There has been removal of right internal jugular central venous catheter. The lung volumes remain small bilaterally with moderate bibasilar atelectasis and a small left pleural effusion. No pneumothorax is identified. The cardiomediastinal silhouette is unchanged. 2. 12/13/2024 5:36 PM: A feeding tube courses below the nzuvd-zc-vaya. An aortic valve replacement is present. Sternal plates are aligned. The lung volumes remain small with mild bibasilar atelectasis. There may be a trace left pleural effusion. No pneumothorax is identified. The cardiomediastinal silhouette is unchanged. 3. 12/13/2024 7:55 PM: There is no significant interval change. No pneumothorax is identified. Electronically signed by: Peter Spears M.D. Indiana Mortensen MD IMG XR PROCEDURES Final Resul t * Potassium, whole blood (12/13/2024 3:27 AM CDT) Potassium, bld 4.1 3.3 - 4.9 mmol/L Blood 12/13/2024 3:27 AM CDT 12/13/2024 3:51 AM CDT Angela Cox NP LAB BLOOD ORDERABLES Final Result [facility] Department [place] [address] * POCT glucose (12/13/2024 3:27 AM CDT) Glucose, POC 145 70 - 199 mg/dL Blood 12/13/2024 3:27 AM CDT 12/13/2024 3:27 AM CDT Indiana Mortensen MD LAB POCT ORDERABLES - DEVICE Final Result Performing Organization Address [facility] Co de Phone Number [facility] [place] [address] * eGFR (12/12/2024 10:37 PM CDT) [facility] eGFR 73 >=60 mL/min/1. 73 m2 Comment: [...] interpretive data was last reviewed 2021. Blood 12/12/2024 10:3 7 PM CDT 12/12/2024 10:48 PM CDT Angela Cox EXPORT SALES ASSISTANT LAB BLOOD ORDERABLES Final Result Performing Organization Address [facility] Co de Phone Number [facility] [place] [address] * (ABNORMAL) CBC without differential (12/12/2024 10:37 PM CDT) [facility] WBC 15.50(H) 3.80 - 9.90 K/cumm Hgb 7.6(L) 11.9 - 15.5 g/dL [facility] Hct 22.5(L) 35.6 - 45.5 % [facility] Plt 189 150 - 400 K/cumm [facility] MPV 9.1 9.1 - 12.3 fL [facility] RBC 2.49(L) 3.90 - 5.20 M/cumm [facility] MCV 90.4 81.3 - 96.4 fL [facility] MCH 30.5 27.1 - 33.3 pg [facility] MCHC 33.8 32.3 - 35.7 g/dL [facility] RDW CV 14.1 11.1 - 14.9 % [facility] RDW SD 46.1 35.7 - 48.1 fL [facility] NRBC abs 0.08(H) 0.00 - 0.01 K/cumm [facility] Blood 12/12/2024 10:3 7 PM CDT 12/12/2024 10:48 PM CDT Angela Cox EXPORT SALES ASSISTANT LAB BLOOD ORDERABLES Final Result Performing Organization Address [facility] Co de Phone Number [facility] Department [place] [address] * Phosphorus (12/12/2024 10:37 PM CDT) [facility] Phosphorus, pl 4.2 2.3 - 4.5 mg/dL Blood 12/12/2024 10:3 7 PM CDT 12/12/2024 10:48 PM CDT Angela Cox EXPORT SALES ASSISTANT LAB BLOOD ORDERABLES Final Result Performing Organization Address City/[facility] Co de Phone Number [facility] Department [place] [address] * (ABNORMAL) Basic metabolic panel (12/12/2024 10:37 PM CDT) [facility] Sodium 149(H) 135 - 145 mmol/L Potassium, pl 4.3 3.3 - 4.9 mmol/L [facility] Chloride 112(H) 97 - 110 mmol/L [facility] CO2 27 22 - 32 mmol/L [facility] Anion gap 10 2 - 15 mmol/L [facility] BUN 27(H) 6 - 25 mg/dL [facility] Creatinine 0.89 0.60 - 1.10 mg/dL [facility] Glucose 155 70 - 199 mg/dL [facility] Comment: Interpretive Data Fasting glucose >/= 126 [...] classification and Diagnosis of Diabetes Diabetes Care 2021; 46: S19-S40. Current interpretive data was last revised 2022. Calcium 8.6 8.5 - 10.3 mg/dL [facility] Blood 12/12/2024 10:3 7 PM CDT 12/12/2024 10:48 PM CDT us Angela Cox EXPORT SALES ASSISTANT LAB BLOOD ORDERABLES Final Result [facility] [place] [address] * POCT glucose (12/12/2024 10:36 PM CDT) Glucose, POC 157 70 - 199 mg/dL Blood 12/12/2024 10:3 6 PM CDT 12/12/2024 10:36 PM CDT us Indiana Mortensen MD LAB POCT ORDERABLES - DEVICE Final Result [facility] [place] [address] * POCT glucose (12/12/2024 7:33 PM CDT) Glucose, POC 155 70 - 199 mg/dL Blood 12/12/2024 7:33 PM CDT 12/12/2024 7:33 PM CDT us Indiana Mortensen MD LAB POCT ORDERABLES - DEVICE Final Result Performing Organization Address [facility]/ZIP Co de Phone Number [facility] [place] [address] * Potassium, whole blood (12/12/2024 7:25 PM CDT) Potassium, bld 4.2 3.3 - 4.9 mmol/L Blood 12/12/2024 7:25 PM CDT 12/12/2024 8:28 PM CDT us Angela Cox NP LAB BLOOD ORDERABLES Final Result Performing Organization Address [facility] Co de Phone Number [facility] [place] [address] * Type and screen (12/12/2024 7:25 PM CDT) Sarah, indirect Negative ABO Rh B Negative [facility] Blood 12/12/2024 7:25 PM CDT 12/12/2024 9:14 PM CDT Narrative [facility] - 12/12/2024 10:20 PM CDT Has the patient had Daratumumab or Isatuximab in the past 6 months?->Unknown us Indiana Mortensen MD LAB BLOOD BANK TEST ORDERABLE S Final Result Performing Organization Address [facility] [place] [address] * Critical Care (12/12/2024 6:47 PM CDT) Narrative Esdras Quevedo MD - 12/12/2024 6:47 PM CDT Esdras Quevedo MD 12/19/2024 2:21 PM Critical Care Performed by: Gia Mercedes NP Authorized by: Gia Mercedes NP CRITICAL CARE: Team: 83 CTICU Shift: PM Level of Billing: Critical Care My time spent with this patient was 50 minutes: Critical Provider Statement: I have seen and examined the patient on this day of service. I have reviewed and confirmed the history, physical exam, laboratory and radiologic data as documented in the signed ICU note. I have reviewed and discussed my treatment plan with the ICU team and other medical/oncology consultant staff, making frequent assessments and decisions regarding this patient's complex medical care. Critical Care time was exclusive of time spent performing separately billed procedures, treating other patients, and teaching. This time was in addition to and separate from critical care provided by other practitioners in my group on this day of service. Critical Care was necessary to treat or prevent imminent or life-threatening deterioration of the following conditions: I spent time reviewing and interpreting data from bedside monitors, laboratory results, and imaging, I spent time discussing the management of this critically ill patient with consultants and the medical staff and I spent time documenting in the medical record Gia Mercedes EXPORT SALES ASSISTANT IN CLINIC/BEDSIDE ORDERABLES F inal Result * POCT glucose (12/12/2024 3:50 PM CDT) Pathologist [facility] Glucose, POC 151 70 - 199 mg/dL Blood 12/12/2024 3:50 PM CDT 12/12/2024 3:50 PM CDT Indiana Mortensen MD LAB POCT ORDERABLES - DEVICE Final Result Performing Organization Address City/State/[facility] Co de Phone Number [facility] Department [place] [address] * (ABNORMAL) Protime-INR (12/12/2024 12:03 PM CDT) PT 14.4(H) 9.7 - 13.0 sec INR 1.33(H) 0.90 - 1.20 [facility] Comment: Interpretive data Oral anticoagulant therapeutic ranges: Venous thromboembolism prophylaxis or treatment: 2.0-3.0 CARDIOLOGY Standard range: 2.0-3.0 High-intensity range: 2.5-3.5 Refer to indication-specific guidelines for appropriate target ranges for prosthetic heart valve replacement. Current interpretive data was last revised on 2019. Blood 12/12/2024 12:0 3 PM CDT 12/12/2024 12:16 PM CDT Alecia Acosta EXPORT SALES ASSISTANT LAB BLOOD ORDERABLES Fin al Result Performing Organization Address [facility]/ZIP Co de Phone Number [facility] Department [place] [address] * ECG 12 lead (12/12/2024 11:50 AM CDT) Pathologist [facility] Ventricular Rate EKG/Min 98 BPM [facility] Atrial Rate 98 BPM [facility] PA-Interval (MSEC) 186 ms [facility] QRS-Interval (MSEC) 132 ms [facility] QT-Interval (MSEC) 362 ms [facility] QTc 462 ms [facility] P Belk 54 degrees [facility] R Belk -29 degrees [facility] T Belk 58 degrees [facility] Diagnosis Normal sinus rhythm Right bundle branch block Abnormal ECG Confirmed by Bety RODRIGUEZ [facility] ([id number]) on 12/12/2024 10:15:15 PM [facility] 12/12/2024 11:5 0 AM CDT 12/12/2024 10:15 PM CDT Indiana Mortensen MD ECG ORDERABLES Final Result Performing Organization Address [facility] Co de Phone Number [facility] * POCT glucose (12/12/2024 11:04 AM CDT) Glucose, POC 159 70 - 199 mg/dL Blood 12/12/2024 11:0 4 AM CDT 12/12/2024 11:04 AM CDT Indiana Mortensen MD LAB POCT ORDERABLES - DEVICE Final Result Performing Organization Address [facility]/ZIP Co de Phone Number [facility] Department [place] [address] * XR Chest 1 View (12/12/2024 7:35 AM CDT) Anatomical Region Laterality Modality Body, Chest N/A Computed Radiogr aphy 12/12/2024 9:44 AM CDT Impressions 12/12/2024 9:58 AM CDT Comparison is made to chest radiograph dated 12/11/2024. A feeding tube extends below the level of the hemidiaphragm. There is a right internal jugular approach central venous catheter with tip terminating over the superior vena cava. Post surgical changes of median sternotomy and aortic valve replacement. Left thoracostomy tube is in place. Unchanged small lung volumes. Decreased opacification of the right hemithorax, which may represent resolution of a layering right-sided pleural effusion. There is a possible small layering left-sided effusion with mild left basilar atelectasis. No pneumothorax. Cardiomediastinal silhouette is stable. Dictated by: Ignacio Jones M.D. The radiology attending physician has personally reviewed this study, and had reviewed and/or edited this written report and agrees with it. Electronically signed by: Sharlene Claros M.D. Narrative 12/12/2024 9:58 AM CDT EXAMINATION: 1 view chest radiograph Procedure Note Sharlene Claros MD - 12/12/2024 EXAMINATION: 1 view chest radiograph IMPRESSION: Comparison is made to chest radiograph dated 12/11/2024. A feeding tube extends below the level of the hemidiaphragm. There is a right internal jugular approach central venous catheter with tip terminating over the superior vena cava. Post surgical changes of median sternotomy and aortic valve replacement. Left thoracostomy tube is in place. Unchanged small lung volumes. Decreased opacification of the right hemithorax, which may represent resolution of a layering right-sided pleural effusion. There is a possible small layering left-sided effusion with mild left basilar atelectasis. No pneumothorax. Cardiomediastinal silhouette is stable. Dictated by: Ignacio Jones M.D. The radiology attending physician has personally reviewed this study, and had reviewed and/or edited this written report and agrees with it. Electronically signed by: Sharlene Claros M.D. us Angela Cox EXPORT SALES ASSISTANT IMG XR PROCEDURES Fi nal Result * POCT glucose (12/12/2024 7:32 AM CDT) Glucose, POC 161 70 - 199 mg/dL Blood 12/12/2024 7:32 AM CDT 12/12/2024 7:32 AM CDT us Indiana Mortensen MD LAB POCT ORDERABLES - DEVICE Final Result [facility] Department [place] [address] * Critical Care (12/12/2024 6:27 AM CDT) Narrative Rhina Jacobsen MD - 12/12/2024 6:27 AM CDT Rhina Jacobsen MD 12/12/2024 5:38 PM Critical Care Performed by: Alecia Acosta NP Authorized by: Alecia Acosta NP CRITICAL CARE: Team: 83 CTICU Shift: AM Level of Billing: Critical Care My time spent with this patient was 75 minutes: Critical Provider Statement: I have seen and examined the patient on this day of service. I have reviewed and confirmed the history, physical exam, laboratory and radiologic data as documented in the signed ICU note. I have reviewed and discussed my treatment plan with the ICU team and other medical/oncology consultant staff, making frequent assessments and decisions regarding this patient's complex medical care. Critical Care time was exclusive of time spent performing separately billed procedures, treating other patients, and teaching. This time was in addition to and separate from critical care provided by other practitioners in my group on this day of service. Critical Care was necessary to treat or prevent imminent or life-threatening deterioration of the following conditions: I spent time reviewing and interpreting data from bedside monitors, laboratory results, and imaging, I spent time discussing the management of this critically ill patient with consultants and the medical staff and I spent time documenting in the medical record us Alecia Acosta EXPORT SALES ASSISTANT IN CLINIC/BEDSIDE ORDERA BLES Final Result * Potassium, whole blood (12/12/2024 5:23 AM CDT) Potassium, bld 4.2 3.3 - 4.9 mmol/L Blood 12/12/2024 5:23 AM CDT 12/12/2024 5:33 AM CDT Angela Cox EXPORT SALES ASSISTANT LAB BLOOD ORDERABLES Final Result Performing Organization Address [facility] de Phone Number [facility] Department [place] [address] * POCT glucose (12/12/2024 3:16 AM CDT) Glucose, POC 152 70 - 199 mg/dL Blood 12/12/2024 3:16 AM CDT 12/12/2024 3:16 AM CDT Indiana Mortensen MD LAB POCT ORDERABLES - DEVICE Final Result Performing Organization Address [facility] de Phone Number [facility] Department [place] [address] * Oxyhemoglobin, central venous (12/12/2024 12:09 AM CDT) Oxyhemoglobin, CV 62.7 % Comment: Interpretive Data No reference range established. Current interpretive data was last revised 2019. Blood 12/12/2024 12:0 9 AM CDT 12/12/2024 12:17 AM CDT Angela Cox NP LAB BLOOD ORDERABLES Final Result Performing Organization Address [facility] Co de Phone Number [facility] [place] [address] * eGFR (12/12/2024 12:09 AM CDT) eGFR 71 >=60 mL/min/1. 73 m2 Comment: Interpretive Data [...] interpretive data was last reviewed 2021. Blood 12/12/2024 12:0 9 AM CDT 12/12/2024 1:15 AM CDT us Angela Cox EXPORT SALES ASSISTANT LAB BLOOD ORDERABLES Final Result [facility] Department [place] [address] * Calcium, ionized (12/12/2024 12:09 AM CDT) Calcium, Ionized 4.69 4.50 - 5.10 mg/dL Blood 12/12/2024 12:0 9 AM CDT 12/12/2024 12:31 AM CDT us Gia Mercedes EXPORT SALES ASSISTANT LAB BLOOD ORDERABLES Final Res ult [facility]LEX [facility] Department [place] [address] * (ABNORMAL) Protime-INR (12/12/2024 12:09 AM CDT) [facility] PT 15.2(H) 9.7 - 13.0 sec INR 1.40(H) 0.90 - 1.20 [facility] Comment: Interpretive data Oral anticoagulant therapeutic ranges: Venous thromboembolism prophylaxis or treatment: 2.0-3.0 CARDIOLOGY Standard range: 2.0-3.0 High-intensity range: 2.5-3.5 Refer to indication-specific guidelines for appropriate target ranges for prosthetic heart valve replacement. Current interpretive data was last revised on 2019. Blood 12/12/2024 12:0 9 AM CDT 12/12/2024 12:30 AM CDT Angela Cox NP LAB BLOOD ORDERABLES Final Result [facility] Department [place] [address] * (ABNORMAL) CBC without differential (12/12/2024 12:09 AM CDT) [facility] WBC 17.51(H) 3.80 - 9.90 K/cumm Hgb 8.2(L) 11.9 - 15.5 g/dL [facility] Hct 23.9(L) 35.6 - 45.5 % [facility] Plt 169 150 - 400 K/cumm [facility] MPV 9.0(L) 9.1 - 12.3 fL [facility] RBC 2.64(L) 3.90 - 5.20 M/cumm [facility] MCV 90.5 81.3 - 96.4 fL [facility] MCH 31.1 27.1 - 33.3 pg [facility] MCHC 34.3 32.3 - 35.7 g/dL [facility] RDW CV 14.1 11.1 - 14.9 % [facility] RDW SD 46.1 35.7 - 48.1 fL [facility] NRBC abs 0.04(H) 0.00 - 0.01 K/cumm [facility] Blood 12/12/2024 12:0 9 AM CDT 12/12/2024 12:26 AM CDT Angela Cox EXPORT SALES ASSISTANT LAB BLOOD ORDERABLES Final Result Performing Organization Address [facility]/ZIP Co de Phone Number [facility] [place] [address] * Phosphorus (12/12/2024 12:09 AM CDT) [facility] Phosphorus, pl 2.6 2.3 - 4.5 mg/dL Blood 12/12/2024 12:0 9 AM CDT 12/12/2024 1:15 AM CDT Angela Cox EXPORT SALES ASSISTANT LAB BLOOD ORDERABLES Final Result Performing Organization Address [facility] de Phone Number [facility] [place] [address] * Magnesium (12/12/2024 12:09 AM CDT) [facility] Magnesium 2.2 1.4 - 2.5 mg/dL Blood 12/12/2024 12:0 9 AM CDT 12/12/2024 1:15 AM CDT Angela Cox EXPORT SALES ASSISTANT LAB BLOOD ORDERABLES Final Result Performing Organization Address [facility] [place] [address] * (ABNORMAL) Basic metabolic panel (12/12/2024 12:09 AM CDT) [facility] Sodium 146(H) 135 - 145 mmol/L Potassium, pl 3.8 3.3 - 4.9 mmol/L [facility] Chloride 110 97 - 110 mmol/L [facility] CO2 28 22 - 32 mmol/L [facility] Anion gap 8 2 - 15 mmol/L [facility] BUN 25 6 - 25 mg/dL [facility] Creatinine 0.91 0.60 - 1.10 mg/dL [facility] Glucose 173 70 - 199 mg/dL [facility] Comment: Interpretive Data Fasting glucose >/= 126 [...] classification and Diagnosis of Diabetes Diabetes Care 2021; 46: S19-S40. Current interpretive data was last revised 2022. Calcium 8.6 8.5 - 10.3 mg/dL [facility] Blood 12/12/2024 12:0 9 AM CDT 12/12/2024 1:15 AM CDT us Angela Cox NP LAB BLOOD ORDERABLES Final Result [facility] Department [place] [address] * POCT glucose (12/11/2024 11:07 PM CDT) [facility] Glucose, POC 159 70 - 199 mg/dL Blood 12/11/2024 11:0 7 PM CDT 12/11/2024 11:07 PM CDT us Indiana Mortensen MD LAB POCT ORDERABLES - DEVICE Final Result [facility] Department [place] [address] * POCT glucose (12/11/2024 8:01 PM CDT) Glucose, POC 140 70 - 199 mg/dL Blood 12/11/2024 8:01 PM CDT 12/11/2024 8:01 PM CDT Indiana Mortensen MD LAB POCT ORDERABLES - DEVICE Final Result [facility] Department [place] [address] * Critical Care (12/11/2024 7:08 PM CDT) Narrative Rhina Jacobsen MD - 12/11/2024 7:08 PM CDT Rhina Jacobsen MD 12/12/2024 5:32 PM Critical Care Performed by: Gia Mercedes NP Authorized by: Gia Mercedes NP CRITICAL CARE: Team: 83 CTICU Shift: PM Level of Billing: Critical Care My time spent with this patient was 90 minutes: Critical Provider Statement: I have seen and examined the patient on this day of service. I have reviewed and confirmed the history, physical exam, laboratory and radiologic data as documented in the signed ICU note. I have reviewed and discussed my treatment plan with the ICU team and other medical/oncology consultant staff, making frequent assessments and decisions regarding this patient's complex medical care. Critical Care time was exclusive of time spent performing separately billed procedures, treating other patients, and teaching. This time was in addition to and separate from critical care provided by other practitioners in my group on this day of service. Critical Care was necessary to treat or prevent imminent or life-threatening deterioration of the following conditions: I spent time reviewing and interpreting data from bedside monitors, laboratory results, and imaging, I spent time discussing the management of this critically ill patient with consultants and the medical staff and I spent time documenting in the medical record us Gia Mercedes NP IN CLINIC/BEDSIDE ORDERABLES F inal Result * POCT glucose (12/11/2024 3:40 PM CDT) Glucose, POC 141 70 - 199 mg/dL Blood 12/11/2024 3:40 PM CDT 12/11/2024 3:40 PM CDT Indiana Mortensen MD LAB POCT ORDERABLES - DEVICE Final Result Performing Organization Address City/[facility] Co de Phone Number [facility] [place] [address] * POCT glucose (12/11/2024 11:36 AM CDT) Pathologist [facility] Glucose, POC 145 70 - 199 mg/dL Blood 12/11/2024 11:3 6 AM CDT 12/11/2024 11:36 AM CDT Indiana Mortensen MD LAB POCT ORDERABLES - DEVICE Final Result Performing Organization Address [facility] de Phone Number [facility] [place] [address] * Influenza A/B, RSV, and COVID-19 PCR Nasopharyngeal (12/11/2024 10:09 AM CDT) [facility] COVID-19 RNA Negative Negative [facility] Influenza A RNA Negative Negative [facility] Influenza B RNA Negative Negative [facility] RSV RNA Negative Negative [facility] Comment: Interpretive data: Testing performed by [facility] ([phone]). This test is performed using the [employer] Xpert Xpress CoV-2/Flu/RSV plus assay. This is a multiplex, real-time reverse transcriptase PCR assay intended for the qualitative detection of nucleic acid from SARS-CoV-2, influenza A, influenza B, and respiratory syncytial virus. This assay has been cleared by the [place] Food and Drug administration. The performance characteristics have been verified by the [facility]. Results must be considered in the clinical context, and a negative result does not rule out infection. Interpretive Data last revised 2023 Nasopharyngeal 12/11/2024 10 :09 AM CDT 12/11/2024 10:51 AM CDT Narrative [facility] - 12/11/2024 11:45 AM CDT Is the Patient experiencing symptoms consistent with COVID?->Yes Chapito Rodriguez EXPORT SALES ASSISTANT LAB MICROBIOLOGY - GENERAL OR DERABLES Final Result [facility] Department [place] [address] [facility] * XR Chest 1 View (12/11/2024 9:44 AM CDT) Anatomical Region Laterality Modality Body, Chest N/A Digital Radiogra phy 12/11/2024 10:5 8 AM CDT Impressions 12/11/2024 11:07 AM CDT Comparison 12/10/2024. Changes of aortic valve replacement with aortic root enlargement and aligned sternal plates. Feeding tube courses below the diaphragm. Epicardial pacing wires. Left chest tube. Right internal jugular central venous catheter over the superior cavoatrial junction. Small lung volumes with unchanged layering small bilateral effusions with associated atelectasis. There is unchanged mild asymmetric right pulmonary edema. No pneumothorax. Stable cardiomediastinal silhouette. Dictated by: Sony Cruz MD PHD The radiology attending physician has personally reviewed this study, and had reviewed and/or edited this written report and agrees with it. Electronically signed by: Felipe Souza MD, PHD Narrative 12/11/2024 11:07 AM CDT EXAMINATION: 1 view chest radiograph Procedure Note Felipe Souza MD PhD - 12/11/2024 EXAMINATION: 1 view chest radiograph IMPRESSION: Comparison 12/10/2024. Changes of aortic valve replacement with aortic root enlargement and aligned sternal plates. Feeding tube courses below the diaphragm. Epicardial pacing wires. Left chest tube. Right internal jugular central venous catheter over the superior cavoatrial junction. Small lung volumes with unchanged layering small bilateral effusions with associated atelectasis. There is unchanged mild asymmetric right pulmonary edema. No pneumothorax. Stable cardiomediastinal silhouette. Dictated by: Sony Cruz MD PHD The radiology attending physician has personally reviewed this study, and had reviewed and/or edited this written report and agrees with it. Electronically signed by: Felipe Souza MD, PHD us Angela Cox EXPORT SALES ASSISTANT IMG XR PROCEDURES Fi nal Result * POCT glucose (12/11/2024 7:58 AM CDT) Glucose, POC 137 70 - 199 mg/dL Blood 12/11/2024 7:58 AM CDT 12/11/2024 7:58 AM CDT us Indiana Mortensen MD LAB POCT ORDERABLES - DEVICE Final Result [facility] Department [place] [address] * Critical Care (12/11/2024 6:53 AM CDT) Narrative Rhina Jacobsen MD - 12/11/2024 6:53 AM CDT Rhina Jacobsen MD 12/12/2024 1:49 PM Critical Care Performed by: Angela Cox NP Authorized by: Angela Cox NP CRITICAL CARE: Team: 83 CTICU Shift: AM Level of Billing: Critical Care My time spent with this patient was 60 minutes: Critical Provider Statement: I have seen and examined the patient on this day of service. I have reviewed and confirmed the history, physical exam, laboratory and radiologic data as documented in the signed ICU note. I have reviewed and discussed my treatment plan with the ICU team and other medical/oncology consultant staff, making frequent assessments and decisions regarding this patient's complex medical care. Critical Care time was exclusive of time spent performing separately billed procedures, treating other patients, and teaching. This time was in addition to and separate from critical care provided by other practitioners in my group on this day of service. Critical Care was necessary to treat or prevent imminent or life-threatening deterioration of the following conditions: I spent time reviewing and interpreting data from bedside monitors, laboratory results, and imaging, I spent time discussing the management of this critically ill patient with consultants and the medical staff and I spent time documenting in the medical record Angela Cox EXPORT SALES ASSISTANT IN CLINIC/BEDSIDE OR DERABLES Final Result * POCT glucose (12/11/2024 4:39 AM CDT) [facility] [facility] Glucose, POC 144 70 - 199 mg/dL Blood 12/11/2024 4:39 AM CDT 12/11/2024 4:39 AM CDT Indiana Mortensen MD LAB POCT ORDERABLES - DEVICE Final Result [facility] [place] [address] * Infection Prevention Justice auris PCR, surveillance Axilla/Groin (12/11/2024 12:09 AM CDT) [facility] Justice auris DNA Not Detected Not Detected [facility] Comment: Interpretive Data Testing performed by [facility] Molecular Infectious Disease Laboratory using the Stacie shirin 6800 Justice auris assay. This assay detects DNA from Justice auris using Real-Time PCR. This assay is laboratory developed and is not cleared by the [facility] Food and Drug Administration. The performance characteristics have been verified by the [facility] Molecular Infectious Disease Laboratory. Axilla/Groin 12/11/2024 12:0 9 AM CDT 12/11/2024 12:42 AM CDT Narrative [facility]LEX [facility] - 12/11/2024 12:14 PM CDT Order placed by [facility] due to ring surveillance. Instant Order Generic Provider LAB MICROBIOLOGY - GENERAL ORDERABLES Final Result [facility] [place] [address] [facility] * eGFR (12/11/2024 12:01 AM CDT) [facility] eGFR 69 >=60 mL/min/1. 73 m2 Comment: Interpretive Data [...] interpretive data was last reviewed 2021. Blood 12/11/2024 12:0 1 AM CDT 12/11/2024 12:38 AM CDT us Angela Cox NP LAB BLOOD ORDERABLES Final Result Performing Organization Address City/[facility]/ZIP Co de Phone Number [facility] [address] of [address] [place], [place] [id number] * POCT glucose (12/11/2024 12:01 AM CDT) Glucose, POC 155 70 - 199 mg/dL Blood 12/11/2024 12:0 1 AM CDT 12/11/2024 12:01 AM CDT Indiana Mortensen MD LAB POCT ORDERABLES - DEVICE Final Result [facility] [place] [address] * (ABNORMAL) Protime-INR (12/11/2024 12:01 AM CDT) PT 14.5(H) 9.7 - 13.0 sec INR 1.33(H) 0.90 - 1.20 [facility] Comment: Interpretive data Oral anticoagulant therapeutic ranges: Venous thromboembolism prophylaxis or treatment: 2.0-3.0 CARDIOLOGY Standard range: 2.0-3.0 High-intensity range: 2.5-3.5 Refer to indication-specific guidelines for appropriate target ranges for prosthetic heart valve replacement. Current interpretive data was last revised on 2019. Blood 12/11/2024 12:0 1 AM CDT 12/11/2024 12:31 AM CDT Angela Cox EXPORT SALES ASSISTANT LAB BLOOD ORDERABLES Final Result [facility] Department [place] [address] * (ABNORMAL) CBC without differential (12/11/2024 12:01 AM CDT) WBC 17.87(H) 3.80 - 9.90 K/cumm Hgb 8.8(L) 11.9 - 15.5 g/dL [facility] Hct 25.5(L) 35.6 - 45.5 % [facility] Plt 161 150 - 400 K/cumm [facility] MPV 8.9(L) 9.1 - 12.3 fL [facility] RBC 2.86(L) 3.90 - 5.20 M/cumm [facility] MCV 89.2 81.3 - 96.4 fL [facility] MCH 30.8 27.1 - 33.3 pg [facility] MCHC 34.5 32.3 - 35.7 g/dL [facility] RDW CV 14.1 11.1 - 14.9 % [facility] RDW SD 45.7 35.7 - 48.1 fL [facility] NRBC abs 0.00 0.00 - 0.01 K/cumm [facility] Blood 12/11/2024 12:0 1 AM CDT 12/11/2024 12:38 AM CDT Angela Cox EXPORT SALES ASSISTANT LAB BLOOD ORDERABLES Final Result Performing Organization Address City/[facility] Co de Phone Number [facility] [place] [address] * Phosphorus (12/11/2024 12:01 AM CDT) [facility] Phosphorus, pl 2.9 2.3 - 4.5 mg/dL Blood 12/11/2024 12:0 1 AM CDT 12/11/2024 12:38 AM CDT Angela Cox EXPORT SALES ASSISTANT LAB BLOOD ORDERABLES Final Result Performing Organization Address [facility] de Phone Number [facility] Department [place] [address] * Magnesium (12/11/2024 12:01 AM CDT) [facility] Magnesium 2.3 1.4 - 2.5 mg/dL Blood 12/11/2024 12:0 1 AM CDT 12/11/2024 12:38 AM CDT Angela Cox EXPORT SALES ASSISTANT LAB BLOOD ORDERABLES Final Result Performing Organization Address [facility] Co de Phone Number [facility] [place] [address] * Basic metabolic panel (12/11/2024 12:01 AM CDT) [facility] Sodium 141 135 - 145 mmol/L Potassium, pl 4.6 3.3 - 4.9 mmol/L [facility] Chloride 109 97 - 110 mmol/L [facility] CO2 25 22 - 32 mmol/L [facility] Anion gap 7 2 - 15 mmol/L [facility] BUN 21 6 - 25 mg/dL [facility] Creatinine 0.94 0.60 - 1.10 mg/dL [facility] Glucose 144 70 - 199 mg/dL [facility] Comment: Interpretive Data Fasting glucose >/= 126 [...] classification and Diagnosis of Diabetes Diabetes Care 2021; 46: S19-S40. Current interpretive data was last revised 2022. Calcium 8.6 8.5 - 10.3 mg/dL [facility] Blood 12/11/2024 12:0 1 AM CDT 12/11/2024 12:38 AM CDT Angela Cox NP LAB BLOOD ORDERABLES Final Result [facility] Department [place] [address] * Critical Care (12/10/2024 8:56 PM CDT) Narrative Rhina Jacobsen MD - 12/10/2024 8:56 PM CDT Rhina Jacobsen MD 12/12/2024 5:33 PM Critical Care Performed by: Francine Pollard NP Authorized by: Francine Pollard NP CRITICAL CARE: Team: 83 CTICU Shift: PM Level of Billing: Critical Care My time spent with this patient was 65 minutes: Critical Provider Statement: I have seen and examined the patient on this day of service. I have reviewed and confirmed the history, physical exam, laboratory and radiologic data as documented in the signed ICU note. I have reviewed and discussed my treatment plan with the ICU team and other medical/oncology consultant staff, making frequent assessments and decisions regarding this patient's complex medical care. Critical Care time was exclusive of time spent performing separately billed procedures, treating other patients, and teaching. This time was in addition to and separate from critical care provided by other practitioners in my group on this day of service. Critical Care was necessary to treat or prevent imminent or life-threatening deterioration of the following conditions: I spent time reviewing and interpreting data from bedside monitors, laboratory results, and imaging, I spent time discussing the management of this critically ill patient with consultants and the medical staff and I spent time documenting in the medical record us Francine Pollard EXPORT SALES ASSISTANT IN CLINIC/BEDSIDE OR DERABLES Final Result * POCT glucose (12/10/2024 7:28 PM CDT) Glucose, POC 136 70 - 199 mg/dL Blood 12/10/2024 7:28 PM CDT 12/10/2024 7:28 PM CDT Indiana Mortensen MD LAB POCT ORDERABLES - DEVICE Final Result Performing Organization Address City/[facility] Co de Phone Number [facility] Department [place] [address] * Potassium, whole blood (12/10/2024 4:12 PM CDT) Potassium, bld 4.4 3.3 - 4.9 mmol/L Blood 12/10/2024 4:12 PM CDT 12/10/2024 4:18 PM CDT us Angela Cox EXPORT SALES ASSISTANT LAB BLOOD ORDERABLES Final Result Performing Organization Address [facility] Co de Phone Number [facility] Department [place] [address] * POCT glucose (12/10/2024 4:12 PM CDT) Glucose, POC 162 70 - 199 mg/dL Blood 12/10/2024 4:12 PM CDT 12/10/2024 4:12 PM CDT Indiana Mortensen MD LAB POCT ORDERABLES - DEVICE Final Result Performing Organization Address City/[facility]/ZIP Co de Phone Number [facility] Department [place] [address] * XR Abdomen 1 View AP (12/10/2024 2:20 PM CDT) Anatomical Region Laterality Modality Body, Abdomen N/A Computed Radiogr aphy 12/10/2024 4:25 PM CDT Impressions 12/10/2024 4:38 PM CDT Feeding tube projects over the gastric antrum. Median sternotomy plates are present. Epicardial pacer wires are present. Clips project over the left hemiabdomen. Dictated by: Kit Rosas M.D. The radiology attending physician has personally reviewed this study, and had reviewed and/or edited this written report and agrees with it. Electronically signed by: Silverio Rodríguez M.D. Narrative 12/10/2024 4:38 PM CDT EXAMINATION: Abdomen, one view. HISTORY: Check tube placement. COMPARISON: CT chest abdomen pelvis dated 10/02/2024 Procedure Note Silverio Rodríguez MD - 12/10/2024 EXAMINATION: Abdomen, one view. HISTORY: Check tube placement. COMPARISON: CT chest abdomen pelvis dated 10/02/2024 IMPRESSION: Feeding tube projects over the gastric antrum. Median sternotomy plates are present. Epicardial pacer wires are present. Clips project over the left hemiabdomen. Dictated by: Kit Rosas M.D. The radiology attending physician has personally reviewed this study, and had reviewed and/or edited this written report and agrees with it. Electronically signed by: Silverio Rodríguez M.D. Angela Cox NP IMG XR PROCEDURES Fi nal Result * Potassium, whole blood (12/10/2024 2:02 PM CDT) Potassium, bld 4.4 3.3 - 4.9 mmol/L Blood 12/10/2024 2:02 PM CDT 12/10/2024 2:16 PM CDT Angela Cox NP LAB BLOOD ORDERABLES Final Result Performing Organization Address City/[facility] Co de Phone Number [facility] [place] [address] * POCT glucose (12/10/2024 1:54 PM CDT) Glucose, POC 145 70 - 199 mg/dL Blood 12/10/2024 1:54 PM CDT 12/10/2024 1:54 PM CDT Indiana Mortensen MD LAB POCT ORDERABLES - DEVICE Final Result Performing Organization Address [facility] Co de Phone Number [facility] [place] [address] * POCT glucose (12/10/2024 12:02 PM CDT) Glucose, POC 141 70 - 199 mg/dL Blood 12/10/2024 12:0 2 PM CDT 12/10/2024 12:02 PM CDT Indiana Mortensen MD LAB POCT ORDERABLES - DEVICE Final Result Performing Organization Address [facility] Co de Phone Number [facility] [place] [address] * POCT glucose (12/10/2024 10:10 AM CDT) Glucose, POC 154 70 - 199 mg/dL Blood 12/10/2024 10:1 0 AM CDT 12/10/2024 10:10 AM CDT Indiana Mortensen MD LAB POCT ORDERABLES - DEVICE Final Result Performing Organization Address City/[facility] Co de Phone Number [facility] [place] [address] * XR Chest 1 View (12/10/2024 9:17 AM CDT) Anatomical Region Laterality Modality Body, Chest N/A Computed Radiogr aphy 12/10/2024 11:4 0 AM CDT Impressions 12/10/2024 11:57 AM CDT Comparison is made to chest radiograph 12/09/2024. The patient is significantly rotated. Interval removal of the endotracheal tube. A right internal jugular central venous catheter terminates within the right atrium. A left basilar chest tube is present. Sternal plates and an aortic valve replacement are noted. There are small lung volumes with bibasilar atelectasis. There is likely mild pulmonary edema. There are small bilateral pleural effusions. No pneumothorax. The cardiomediastinal silhouette is unchanged given differences in patient positioning. Dictated by: Hilton Teran MD The radiology attending physician has personally reviewed this study, and had reviewed and/or edited this written report and agrees with it. Electronically signed by: Patrick De La Rosa M.D. Narrative 12/10/2024 11:57 AM CDT EXAMINATION: 1 view chest radiograph Procedure Note Patrick De La Rosa MD - 12/10/2024 EXAMINATION: 1 view chest radiograph IMPRESSION: Comparison is made to chest radiograph 12/09/2024. The patient is significantly rotated. Interval removal of the endotracheal tube. A right internal jugular central venous catheter terminates within the right atrium. A left basilar chest tube is present. Sternal plates and an aortic valve replacement are noted. There are small lung volumes with bibasilar atelectasis. There is likely mild pulmonary edema. There are small bilateral pleural effusions. No pneumothorax. The cardiomediastinal silhouette is unchanged given differences in patient positioning. Dictated by: Hilton Teran MD The radiology attending physician has personally reviewed this study, and had reviewed and/or edited this written report and agrees with it. Electronically signed by: Patrick De La Rosa M.D. Angela Waltonakash EXPORT SALES ASSISTANT IMG XR PROCEDURES Fi nal Result * (ABNORMAL) POC Blood Gas and Chemistries, Arterial - (12/10/2024 8:00 AM CDT) pH, Art POC 7.41 7.35 - 7.45 pCO2, Art POC 37 35 - 45 mmHg [facility] pO2, Art POC 98 83 - 108 mmHg [facility] Na, POC 139 135 - 145 mmol/L [facility] K POC 5.0(H) 3.3 - 4.9 mmol/L [facility] Comment: Interpretive Data Not all point of care methods assess for hemolysis. Confirm with instrument and retest K+ if not consistent with clinical signs and symptoms. Current Interpretive Data was last revised on 2023. Cl, POC 109 97 - 110 mmol/L [facility] Ionized Ca, POC 4.62 4.50 - 5.10 mg/dL [facility] Glucose, POC 150 70 - 199 mg/dL [facility] Lactate POC 1.7 0.7 - 2.0 mmol/L [facility] SO2 (chandra) arterial 99(H) 90 - 95 % [facility] Base excess, POC -0.9 mmol/L [facility] HCO3, Art POC 24 20 - 30 mmol/L [facility] Hct, POC 30.0(L) 36.3 - 45.3 % [facility] Total Hb, POC 10.1(L) 11.9 - 15.5 g/dL [facility] Blood 12/10/2024 8:00 AM CDT 12/10/2024 8:00 AM CDT us Indiana Mortensen MD LAB POCT ORDERABLES - DEVICE Final Result [facility] Department [place] [address] * Critical Care (12/10/2024 7:00 AM CDT) Narrative Rhina Jacobsen MD - 12/10/2024 7:00 AM CDT Rhina Jacobsen MD 12/12/2024 1:49 PM Critical Care Performed by: Angela Cox NP Authorized by: Angela Cox NP CRITICAL CARE: Team: 83 CTICU Shift: AM Level of Billing: Critical Care My time spent with this patient was 80 minutes: Critical Provider Statement: I have seen and examined the patient on this day of service. I have reviewed and confirmed the history, physical exam, laboratory and radiologic data as documented in the signed ICU note. I have reviewed and discussed my treatment plan with the ICU team and other medical/oncology consultant staff, making frequent assessments and decisions regarding this patient's complex medical care. Critical Care time was exclusive of time spent performing separately billed procedures, treating other patients, and teaching. This time was in addition to and separate from critical care provided by other practitioners in my group on this day of service. Critical Care was necessary to treat or prevent imminent or life-threatening deterioration of the following conditions: I spent time reviewing and interpreting data from bedside monitors, laboratory results, and imaging, I spent time discussing the management of this critically ill patient with consultants and the medical staff and I spent time documenting in the medical record us Angela Cox NP IN CLINIC/BEDSIDE OR DERABLES Final Result * (ABNORMAL) Blood gas, arterial (12/10/2024 6:30 AM CDT) pH, Art 7.41 7.35 - 7.45 PCO2, Arterial 35 35 - 45 mmHg [facility] PO2, Arterial 165(H) 83 - 108 mmHg [facility] HCO3 Art (Calculated) 22 20 - 30 mmol/L [facility] BE, art -2 mmol/L [facility] Comment: Interpretive Data No Reference Range Established Current Interpretive Data was last revised on 2017 O2 Sat Art (Measured) 98(H) 90 - 95 % [facility] Blood 12/10/2024 6:30 AM CDT 12/10/2024 6:40 AM CDT us Godry George MD LAB BLOOD ORDERABL ES Final Result [facility] Department [place] [address] * POCT glucose (12/10/2024 6:29 AM CDT) Glucose, POC 153 70 - 199 mg/dL Blood 12/10/2024 6:29 AM CDT 12/10/2024 6:29 AM CDT Indiana Mortensen MD LAB POCT ORDERABLES - DEVICE Final Result Performing Organization Address [facility] Co de Phone Number [facility] [place] [address] * POCT glucose (12/10/2024 4:44 AM CDT) Glucose, POC 172 70 - 199 mg/dL Blood 12/10/2024 4:44 AM CDT 12/10/2024 4:44 AM CDT Indiana Mortensen MD LAB POCT ORDERABLES - DEVICE Final Result Performing Organization Address [facility] de Phone Number [facility] [place] [address] * Potassium (12/10/2024 4:44 AM CDT) [facility] Signature Potassium, pl 4.9 3.3 - 4.9 mmol/L Blood 12/10/2024 4:44 AM CDT 12/10/2024 5:19 AM CDT Narrative [facility] - 12/10/2024 6:03 AM CDT Provider to discontinue after two normal results. Angela Cox EXPORT SALES ASSISTANT LAB BLOOD ORDERABLES Final Result Performing Organization Address City/[facility] Co de Phone Number [facility] [place] [address] * POCT glucose (12/10/2024 1:58 AM CDT) Glucose, POC 130 70 - 199 mg/dL Blood 12/10/2024 1:58 AM CDT 12/10/2024 1:58 AM CDT Indiana Mortensen MD LAB POCT ORDERABLES - DEVICE Final Result Performing Organization Address [facility] Co de Phone Number [facility] [place] [address] * POCT glucose (12/10/2024 12:21 AM CDT) Glucose, POC 156 70 - 199 mg/dL Blood 12/10/2024 12:2 1 AM CDT 12/10/2024 12:21 AM CDT Indiana Mortensen MD LAB POCT ORDERABLES - DEVICE Final Result Performing Organization Address [facility] de Phone Number [facility] [place] [address] * (ABNORMAL) Potassium (12/10/2024 12:21 AM CDT) Potassium, pl 5.1(H) 3.3 - 4.9 mmol/L Blood 12/10/2024 12:2 1 AM CDT 12/10/2024 12:42 AM CDT Narrative [facility] - 12/10/2024 1:42 AM CDT Provider to discontinue after two normal results. Angela Cox NP LAB BLOOD ORDERABLES Final Result Performing Organization Address [facility] Co de Phone Number [facility] [place] [address] * POCT glucose (12/09/2024 11:20 PM CDT) Glucose, POC 170 70 - 199 mg/dL Blood 12/09/2024 11:2 0 PM CDT 12/09/2024 11:20 PM CDT Indiana Mortensen MD LAB POCT ORDERABLES - DEVICE Final Result Performing Organization Address [facility] Co de Phone Number [facility] Department [place] [address] * (ABNORMAL) POCT glucose (12/09/2024 10:29 PM CDT) Glucose, POC 207(H) 70 - 199 mg/dL Blood 12/09/2024 10:2 9 PM CDT 12/09/2024 10:29 PM CDT Indiana Mortensen MD LAB POCT ORDERABLES - DEVICE Final Result Performing Organization Address [facility] de Phone Number [facility] Department [place] [address] * Potassium, whole blood (12/09/2024 10:26 PM CDT) Pathologist [facility] Potassium, bld 4.8 3.3 - 4.9 mmol/L Blood 12/09/2024 10:2 6 PM CDT 12/09/2024 10:39 PM CDT Angela Cox NP LAB BLOOD ORDERABLES Final Result Performing Organization Address [facility] Co de Phone Number [facility] Department [place] [address] * eGFR (12/09/2024 10:26 PM CDT) eGFR 67 >=60 mL/min/1. 73 m2 Comment: Interpretive Data [...] interpretive data was last reviewed 2021. Blood 12/09/2024 10:2 6 PM CDT 12/09/2024 10:44 PM CDT Angela Cox LAB BLOOD ORDERABLES Final Result Performing Organization Address [facility] de Phone Number [facility] [place] [address] * Protime-INR (12/09/2024 10:26 PM CDT) PT 12.0 9.7 - 13.0 sec INR 1.11 0.90 - 1.20 [facility] Comment: Interpretive data Oral anticoagulant therapeutic ranges: Venous thromboembolism prophylaxis or treatment: 2.0-3.0 CARDIOLOGY Standard range: 2.0-3.0 High-intensity range: 2.5-3.5 Refer to indication-specific guidelines for appropriate target ranges for prosthetic heart valve replacement. Current interpretive data was last revised on 2019. Blood 12/09/2024 10:2 6 PM CDT 12/09/2024 10:46 PM CDT Angela Cox NP LAB BLOOD ORDERABLES Final Result Performing Organization Address [facility] de Phone Number [facility] [place] [address] * (ABNORMAL) CBC without differential (12/09/2024 10:26 PM CDT) WBC 23.21(H) 3.80 - 9.90 K/cumm Hgb 9.8(L) 11.9 - 15.5 g/dL [facility] Hct 28.0(L) 35.6 - 45.5 % [facility] Plt 278 150 - 400 K/cumm [facility] MPV 8.4(L) 9.1 - 12.3 fL [facility] RBC 3.20(L) 3.90 - 5.20 M/cumm [facility] MCV 87.5 81.3 - 96.4 fL [facility] MCH 30.6 27.1 - 33.3 pg [facility] MCHC 35.0 32.3 - 35.7 g/dL [facility] RDW CV 13.8 11.1 - 14.9 % [facility] RDW SD 43.8 35.7 - 48.1 fL [facility] NRBC abs 0.00 0.00 - 0.01 K/cumm [facility] Blood 12/09/2024 10:2 6 PM CDT 12/09/2024 10:45 PM CDT us Angela Cox NP LAB BLOOD ORDERABLES Final Result [facility] Department [place] [address] * Type and screen (12/09/2024 10:26 PM CDT) Pathologist [facility] Sarah, indirect Negative ABO Rh B Negative [facility] Blood 12/09/2024 10:2 6 PM CDT 12/09/2024 11:00 PM CDT Narrative [facility] - 12/10/2024 12:09 AM CDT Has the patient had Daratumumab or Isatuximab in the past 6 months?->Unknown us Indiana Mortensen MD LAB BLOOD BANK TEST ORDERABLE S Final Result [facility] Department [place] [address] * (ABNORMAL) Potassium (12/09/2024 10:26 PM CDT) Potassium, pl 5.0(H) 3.3 - 4.9 mmol/L Blood 12/09/2024 10:2 6 PM CDT 12/09/2024 10:44 PM CDT Narrative [facility] - 12/09/2024 11:07 PM CDT Provider to discontinue after two normal results. Angela Cox EXPORT SALES ASSISTANT LAB BLOOD ORDERABLES Final Result Performing Organization Address City/[facility]/ZIP Co de Phone Number [facility] [place] [address] * (ABNORMAL) Phosphorus (12/09/2024 10:26 PM CDT) Phosphorus, pl 4.6(H) 2.3 - 4.5 mg/dL Blood 12/09/2024 10:2 6 PM CDT 12/09/2024 10:44 PM CDT Angela Cox EXPORT SALES ASSISTANT LAB BLOOD ORDERABLES Final Result Performing Organization Address City/[facility]/ZIP Co de Phone Number [facility] Department [place] [address] * (ABNORMAL) Magnesium (12/09/2024 10:26 PM CDT) Magnesium 2.6(H) 1.4 - 2.5 mg/dL Blood 12/09/2024 10:2 6 PM CDT 12/09/2024 10:44 PM CDT Angela Cox EXPORT SALES ASSISTANT LAB BLOOD ORDERABLES Final Result Performing Organization Address City/[facility]/ZIP Co de Phone Number [facility] Department [place] [address] * Lipid panel (12/09/2024 10:26 PM CDT) Cholesterol 92 30 - 199 mg/dL Comment: Interpretive Data Ages < or = 19 years Acceptable: <170 mg/dL Borderline high: 170-199 mg/dL High: >or= 200 mg/dL Ages > or = 20 years Desirable: <200 mg/dL Borderline high: 200-239 mg/dL High: >or= 240 mg/dL Literature References: 1. Expert Panel on Integrated Guidelines for Cardiovascular Health and Risk Reduction in Children and Adolescents. Pediatrics 2011;128:S213 2. NCEP Expert Panel. Circulation 2004;110:227 Current Interpretive Data was last revised on 2018. Triglycerides 106 <=149 mg/dL [facility] Comment: Interpretive Data Ages < or = 9 years Acceptable: <75 mg/dL Borderline high: 75-99 mg/dL High: >or= 100 mg/dL Ages 10 to 20 years Acceptable: <90 mg/dL Borderline high: 90-129 mg/dL High: >or= 130 mg/dL Ages > or = 20 years Desirable: <150 mg/dL Borderline high: 150-199 mg/dL High: 200-499 mg/dL Very high: >or= 499 mg/dL Literature References: 1. Expert Panel on Integrated Guidelines for Cardiovascular Health and Risk Reduction in Children and Adolescents. Pediatrics 2011;128:S213 2. NCEP Expert Panel. Circulation 2004;110:227 Current Interpretive Data was last revised on 2018. HDL 41 >=40 mg/dL [facility] Comment: Interpretive Data Ages < or = 19 years Acceptable: >45 mg/dL Borderline low: 40-45 mg/dL Low: <40 mg/dL Ages > or = 20 years Desirable: >or= 60 mg/dL Low: <40 mg/dL Literature References: 1. Expert Panel on Integrated Guidelines for Cardiovascular Health and Risk Reduction in Children and Adolescents. Pediatrics 2011;128:S213 2. NCEP Expert Panel. Circulation 2004;110:227 Current Interpretive Data was last revised on 2018. LDL, calculated 31 <=129 mg/dL [facility] Comment: Interpretive Data Ages < or = 19 years Acceptable: <110 mg/dL Borderline high: 110-129 mg/dL High: >or= 130 mg/dL Ages > or = 20 years Optimal: <100 mg/dL Near optimal: 100-129 mg/dL Borderline high: 130-159 mg/dL High: >160 mg/dL Calculated using the Júnior LDL-C estimating equation. This equation was implemented on 2024. Prior to this date LDL-C was estimated using the Friedewald equation. Literature References: 1. Expert Panel on Integrated Guidelines for Cardiovascular Health and Risk Reduction in Children and Adolescents. Pediatrics 2011;128:S213 2. NCEP Expert Panel. Circulation 2004;110:227 3. Júnior Feng et al. NIKHIL Cardiol. 2020 November 13;5(5):540-548. doi: 10.1001/jamacardio.2020.0013 Current Interpretive Data was last revised on 2024. Non-HDL Cholesterol 51 mg/dL [facility] Comment: Interpretive Data Ages < or = 19 years Acceptable: <120 mg/dL Borderline high: 120-144 mg/dL High: >145 mg/dL Ages > or = 20 years When triglycerides are >200 mg/dL, Non-HDL cholesterol is a secondary target of therapy with treatment goals that are 30 mg/dL greater than the LDL cholesterol target. Literature References: 1. Expert Panel on Integrated Guidelines for Cardiovascular Health and Risk Reduction in Children and Adolescents. Pediatrics 2011;128:S213 2. NCEP Expert Panel. Circulation 2004;110:227 Current Interpretive Data was last revised on 2018. Chol/HDL ratio 2 [facility] Blood 12/09/2024 10:2 6 PM CDT 12/09/2024 10:44 PM CDT Narrative [facility] - 12/09/2024 11:59 PM CDT Reflex us Indiana Mortensen MD LAB BLOOD ORDERABLES Final Re sult [facility] Department [place] [address] * (ABNORMAL) Basic metabolic panel (12/09/2024 10:26 PM CDT) Sodium 140 135 - 145 mmol/L Potassium, pl 4.9 3.3 - 4.9 mmol/L [facility] Chloride 108 97 - 110 mmol/L [facility] CO2 23 22 - 32 mmol/L [facility] Anion gap 9 2 - 15 mmol/L [facility] BUN 17 6 - 25 mg/dL [facility] Creatinine 0.96 0.60 - 1.10 mg/dL [facility] Glucose 201(H) 70 - 199 mg/dL [facility] Comment: Interpretive Data Fasting glucose >/= 126 [...] classification and Diagnosis of Diabetes Diabetes Care 2021; 46: S19-S40. Current interpretive data was last revised 2022. Calcium 8.5 8.5 - 10.3 mg/dL [facility] Blood 12/09/2024 10:2 6 PM CDT 12/09/2024 10:44 PM CDT us Angela Cox NP LAB BLOOD ORDERABLES Final Result [facility] Department [place] [address] * POCT glucose (12/09/2024 9:39 PM CDT) Glucose, POC 183 70 - 199 mg/dL Blood 12/09/2024 9:39 PM CDT 12/09/2024 9:39 PM CDT us Indiana Mortensen MD LAB POCT ORDERABLES - DEVICE Final Result Performing Organization Address City/[facility]/ZIP Co de Phone Number [facility] Department [place] [address] * POCT glucose (12/09/2024 9:10 PM CDT) Glucose, POC 180 70 - 199 mg/dL Blood 12/09/2024 9:10 PM CDT 12/09/2024 9:10 PM CDT us Indiana Mortensen MD LAB POCT ORDERABLES - DEVICE Final Result [facility] Department [place] [address] * (ABNORMAL) POC Blood Gas and Chemistries, Arterial - (12/09/2024 8:14 PM CDT) pH, Art POC 7.38 7.35 - 7.45 pCO2, Art POC 37 35 - 45 mmHg [facility] pO2, Art POC 112(H) 83 - 108 mmHg [facility] Na, POC 138 135 - 145 mmol/L [facility] K POC 5.4(H) 3.3 - 4.9 mmol/L [facility] Comment: Interpretive Data Not all point of care methods assess for hemolysis. Confirm with instrument and retest K+ if not consistent with clinical signs and symptoms. Current Interpretive Data was last revised on 2023. Cl, POC 109 97 - 110 mmol/L [facility] Ionized Ca, POC 4.82 4.50 - 5.10 mg/dL [facility] Glucose, POC 163 70 - 199 mg/dL [facility] Lactate POC 2.5(H) 0.7 - 2.0 mmol/L [facility] SO2 (chandra) arterial 100(H) 90 - 95 % [facility] Base excess, POC -2.9 mmol/L [facility] HCO3, Art POC 22 20 - 30 mmol/L [facility] Hct, POC 32.0(L) 36.3 - 45.3 % [facility] Total Hb, POC 10.5(L) 11.9 - 15.5 g/dL [facility] Blood 12/09/2024 8:14 PM CDT 12/09/2024 8:14 PM CDT us Indiana Mortensen MD LAB POCT ORDERABLES - DEVICE Final Result [facility] Department [place] [address] * Critical Care (12/09/2024 7:24 PM CDT) Narrative Rhina Jacobsen MD - 12/09/2024 7:24 PM CDT Rhina Jacobsen MD 12/12/2024 5:32 PM Critical Care Performed by: Maritza Huitron PA Authorized by: Maritza Huitron PA CRITICAL CARE: Team: 83 CTICU Shift: PM Level of Billing: Critical Care My time spent with this patient was 150 minutes: Critical Provider Statement: I have seen and examined the patient on this day of service. I have reviewed and confirmed the history, physical exam, laboratory and radiologic data as documented in the signed ICU note. I have reviewed and discussed my treatment plan with the ICU team and other medical/oncology consultant staff, making frequent assessments and decisions regarding this patient's complex medical care. Critical Care time was exclusive of time spent performing separately billed procedures, treating other patients, and teaching. This time was in addition to and separate from critical care provided by other practitioners in my group on this day of service. Critical Care was necessary to treat or prevent imminent or life-threatening deterioration of the following conditions: I spent time reviewing and interpreting data from bedside monitors, laboratory results, and imaging, I spent time discussing the management of this critically ill patient with consultants and the medical staff and I spent time documenting in the medical record us Maritza AUGUSTIN IN CLINIC/BEDSIDE STEVEN MEJIA Final Result * POCT glucose (12/09/2024 6:52 PM CDT) Glucose, POC 132 70 - 199 mg/dL Blood 12/09/2024 6:52 PM CDT 12/09/2024 6:52 PM CDT Indiana Mortensen MD LAB POCT ORDERABLES - DEVICE Final Result Performing Organization Address City/[facility]/ZIP Co de Phone Number [facility] Department [place] [address] * (ABNORMAL) POC Blood Gas and Chemistries, Arterial - (12/09/2024 6:06 PM CDT) pH, Art POC 7.36 7.35 - 7.45 pCO2, Art POC 40 35 - 45 mmHg [facility] pO2, Art POC 98 83 - 108 mmHg [facility] Na, POC 136 135 - 145 mmol/L [facility] K POC 5.0(H) 3.3 - 4.9 mmol/L [facility] Comment: Interpretive Data Not all point of care methods assess for hemolysis. Confirm with instrument and retest K+ if not consistent with clinical signs and symptoms. Current Interpretive Data was last revised on 2023. Cl, POC 109 97 - 110 mmol/L [facility] Ionized Ca, POC 5.00 4.50 - 5.10 mg/dL [facility] Glucose, POC 177 70 - 199 mg/dL [facility] Lactate POC 2.0 0.7 - 2.0 mmol/L [facility] SO2 (chandra) arterial 99(H) 90 - 95 % [facility] Base excess, POC -2.6 mmol/L [facility] HCO3, Art POC 23 20 - 30 mmol/L [facility] Hct, POC 30.0(L) 36.3 - 45.3 % [facility] Total Hb, POC 10.1(L) 11.9 - 15.5 g/dL [facility] Blood 12/09/2024 6:06 PM CDT 12/09/2024 6:06 PM CDT Indiana Mortensen MD LAB POCT ORDERABLES - DEVICE Final Result Performing Organization Address City/[facility]/ZIP Co de Phone Number [facility] Department [place] [address] * Oxyhemoglobin, central venous (12/09/2024 5:40 PM CDT) Oxyhemoglobin, CV 93.8 % Comment: Interpretive Data No reference range established. Current interpretive data was last revised 2019. Blood 12/09/2024 5:40 PM CDT 12/09/2024 5:46 PM CDT Angela Cox EXPORT SALES ASSISTANT LAB BLOOD ORDERABLES Final Result Performing Organization Address City/[facility]/ZIP Co de Phone Number [facility] Department [place] [address] * POCT glucose (12/09/2024 5:11 PM CDT) Pathologist [facility] Glucose, POC 142 70 - 199 mg/dL Blood 12/09/2024 5:11 PM CDT 12/09/2024 5:11 PM CDT Indiana Mortensen MD LAB POCT ORDERABLES - DEVICE Final Result Performing Organization Address City/[facility] Co de Phone Number [facility] Department [place] [address] * (ABNORMAL) POC Blood Gas and Chemistries, Arterial - (12/09/2024 4:54 PM CDT) pH, Art POC 7.35 7.35 - 7.45 pCO2, Art POC 42 35 - 45 mmHg [facility] pO2, Art POC 74(L) 83 - 108 mmHg [facility] Na, POC 138 135 - 145 mmol/L [facility] K POC 5.7(H) 3.3 - 4.9 mmol/L [facility] Comment: Interpretive Data Not all point of care methods assess for hemolysis. Confirm with instrument and retest K+ if not consistent with clinical signs and symptoms. Current Interpretive Data was last revised on 2023. Cl, POC 108 97 - 110 mmol/L [facility] Ionized Ca, POC 5.12(H) 4.50 - 5.10 mg/dL [facility] Glucose, POC 155 70 - 199 mg/dL [facility] Lactate POC 1.8 0.7 - 2.0 mmol/L [facility] SO2 (chandra) arterial 97(H) 90 - 95 % [facility] Base excess, POC -2.3 mmol/L [facility] HCO3, Art POC 23 20 - 30 mmol/L [facility] Hct, POC 32.0(L) 36.3 - 45.3 % [facility] Total Hb, POC 10.5(L) 11.9 - 15.5 g/dL [facility] Blood 12/09/2024 4:54 PM CDT 12/09/2024 4:54 PM CDT us Indiana Mortensen MD LAB POCT ORDERABLES - DEVICE Final Result [facility] Department [place] [address] * eGFR (12/09/2024 4:51 PM CDT) eGFR 69 >=60 mL/min/1. 73 m2 Comment: Interpretive Data [...] interpretive data was last reviewed 2021. Blood 12/09/2024 4:51 PM CDT 12/09/2024 5:10 PM CDT Angela Cox EXPORT SALES ASSISTANT LAB BLOOD ORDERABLES Final Result Performing Organization Address [facility]/ZIP Co de Phone Number [facility] Department [place] [address] * (ABNORMAL) CBC without differential (12/09/2024 4:51 PM CDT) [facility] WBC 16.69(H) 3.80 - 9.90 K/cumm Hgb 10.0(L) 11.9 - 15.5 g/dL [facility] Hct 28.4(L) 35.6 - 45.5 % [facility] Plt 210 150 - 400 K/cumm [facility] MPV 8.5(L) 9.1 - 12.3 fL [facility] RBC 3.26(L) 3.90 - 5.20 M/cumm [facility] MCV 87.1 81.3 - 96.4 fL [facility] MCH 30.7 27.1 - 33.3 pg [facility] MCHC 35.2 32.3 - 35.7 g/dL [facility] RDW CV 13.7 11.1 - 14.9 % [facility] RDW SD 43.0 35.7 - 48.1 fL [facility] NRBC abs 0.00 0.00 - 0.01 K/cumm [facility] Blood 12/09/2024 4:51 PM CDT 12/09/2024 5:09 PM CDT Angela Cox EXPORT SALES ASSISTANT LAB BLOOD ORDERABLES Final Result [facility] Department [place] [address] * Hemoglobin A1c (12/09/2024 4:51 PM CDT) Pathologist [facility] Hgb A1C 5.0 4.0 - 5.6 % Estimated Average Glucose 97 mg/dL [facility] Comment: The ADA recommends reporting an estimated Average Glucose (eAG) with all Hemoglobin A1c results using the equation derived from a study of 507 normal and diabetic adults. Minority populations were underrepresented and children were not included. (Diabetes Care 2020; 43(S1): S66-S76). The eAG is not equivalent to a fasting glucose. Blood 12/09/2024 4:51 PM CDT 12/09/2024 5:09 PM CDT us Indiana Mortensen MD LAB BLOOD ORDERABLES Final Re sult [facility] Department [place] [address] * (ABNORMAL) Comprehensive metabolic panel (12/09/2024 4:51 PM CDT) Sodium 139 135 - 145 mmol/L Potassium, pl 5.6(H) 3.3 - 4.9 mmol/L [facility] Chloride 109 97 - 110 mmol/L [facility] CO2 23 22 - 32 mmol/L [facility] Anion gap 7 2 - 15 mmol/L [facility] BUN 18 6 - 25 mg/dL [facility] Creatinine 0.93 0.60 - 1.10 mg/dL [facility] Glucose 145 70 - 199 mg/dL [facility] Comment: Interpretive Data Fasting glucose >/= 126 [...] interpretive data was last revised 2022. Calcium 9.0 8.5 - 10.3 mg/dL [facility] Bilirubin, total 0.9 0.1 - 1.2 mg/dL [facility] Protein, pl 5.8(L) 6.5 - 8.5 g/dL [facility] Albumin 3.7 3.5 - 5.0 g/dL [facility] Alk phos 44 40 - 130 Units/L [facility] ALT 29 7 - 45 Units/L [facility] AST 118(H) 10 - 45 Units/L [facility] Blood 12/09/2024 4:51 PM CDT 12/09/2024 5:10 PM CDT us Angela Cox EXPORT SALES ASSISTANT LAB BLOOD ORDERABLES Final Result [facility] Department [place] [address] * POCT glucose (12/09/2024 4:17 PM CDT) Glucose, POC 122 70 - 199 mg/dL Blood 12/09/2024 4:17 PM CDT 12/09/2024 4:17 PM CDT us Indiana Mortensen MD LAB POCT ORDERABLES - DEVICE Final Result Performing Organization Address [facility] Co de Phone Number [facility] Department [place] [address] * XR Chest 1 View (12/09/2024 4:16 PM CDT) Anatomical Region Laterality Modality Body, Chest N/A Digital Radiogra phy 12/09/2024 4:31 PM CDT Impressions 12/09/2024 4:[address] CT 10/16/2024. 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 Endotracheal tube 6 cm above the aurora. Right internal jugular central venous catheter overlies the superior vena cava. Left chest tube and midline drains are in place. Small left pleural effusion with bibasilar atelectasis. No pneumothorax. Postsurgical widened mediastinal contours. Small lung volumes. Dictated by: Sony Cruz MD PHD The radiology attending physician has personally reviewed this study, and had reviewed and/or edited this written report and agrees with it. Electronically signed by: Herrera Robbins M.D. Narrative 12/09/2024 4:38 PM CDT EXAMINATION: 1 view chest radiograph Procedure Note Herrera Robbins MD - 12/09/2024 EXAMINATION: 1 view chest radiograph IMPRESSION: Comparison with CT 10/16/2024. 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 Endotracheal tube 6 cm above the aurora. Right internal jugular central venous catheter overlies the superior vena cava. Left chest tube and midline drains are in place. Small left pleural effusion with bibasilar atelectasis. No pneumothorax. Postsurgical widened mediastinal contours. Small lung volumes. Dictated by: Sony Cruz MD PHD The radiology attending physician has personally reviewed this study, and had reviewed and/or edited this written report and agrees with it. Electronically signed by: Herrera Robbins M.D. Angela Corona Brooke EXPORT SALES ASSISTANT IMG XR PROCEDURES Fi nal Result * ECG 12 lead (12/09/2024 3:41 PM CDT) Ventricular Rate EKG/Min 96 BPM [facility] Atrial Rate 96 BPM [facility] PA-Interval (MSEC) 166 ms [facility] QRS-Interval (MSEC) 142 ms [facility] QT-Interval (MSEC) 440 ms [facility] QTc 555 ms [facility] P Belk 29 degrees [facility] R Belk -65 degrees [facility] T Belk 30 degrees [facility] Diagnosis Sinus rhythm with marked sinus arrhythmia Right bundle branch block Left anterior fascicular block Bifascicular block Abnormal ECG When compared with ECG of 12-NOV-2024 16:13, (RBBB and left anterior fascicular block) is now Present Confirmed by KAMILA MCKAY M.D ([id number]) on 12/10/2024 8:54:31 PM [facility] 12/09/2024 3:41 PM CDT 12/10/2024 8:54 PM CDT Maritza AUGUSTIN ECG ORDERABLES Final Result [facility] * Critical Care (12/09/2024 3:40 PM CDT) Narrative Rhina Jacobsen MD - 12/09/2024 3:40 PM CDT Rhina Jacobsen MD 12/10/2024 11:27 AM Critical Care Performed by: Angela Cox NP Authorized by: Angela Cox NP CRITICAL CARE: Team: 83 CTICU Shift: AM Level of Billing: Critical Care My time spent with this patient was 110 minutes: Critical Provider Statement: I have seen and examined the patient on this day of service. I have reviewed and confirmed the history, physical exam, laboratory and radiologic data as documented in the signed ICU note. I have reviewed and discussed my treatment plan with the ICU team and other medical/oncology consultant staff, making frequent assessments and decisions regarding this patient's complex medical care. Critical Care time was exclusive of time spent performing separately billed procedures, treating other patients, and teaching. This time was in addition to and separate from critical care provided by other practitioners in my group on this day of service. Critical Care was necessary to treat or prevent imminent or life-threatening deterioration of the following conditions: I spent time reviewing and interpreting data from bedside monitors, laboratory results, and imaging, I spent time discussing the management of this critically ill patient with consultants and the medical staff and I spent time documenting in the medical record us Angela Cox NP IN CLINIC/BEDSIDE OR DERABLES Final Result * Infection Prevention Justice auris PCR, surveillance Axilla/Groin (12/09/2024 3:38 PM CDT) Justice auris DNA Not Detected Not Detected [facility] Comment: Interpretive Data Testing performed by [facility] using the Stacie shirin 6800 Justice auris assay. This assay detects DNA from Justice auris using Real-Time PCR. This assay is laboratory developed and is not cleared by the [place] Food and Drug Administration. The performance characteristics have been verified by the [facility]. Axilla/Groin 12/09/2024 3:38 PM CDT 12/09/2024 4:29 PM CDT John Paul Baldwin MD LAB MICROBIOLOGY - GENERAL ORDER ROSY Final Result Performing Organization Address City/[facility]/ZIP Co de Phone Number [facility] Department [place] [address] [facility] * Oxyhemoglobin, central venous (12/09/2024 3:38 PM CDT) Oxyhemoglobin, CV 95.3 % Comment: Interpretive Data No reference range established. Current interpretive data was last revised 2019. Blood 12/09/2024 3:38 PM CDT 12/09/2024 4:13 PM CDT Angela Cox NP LAB BLOOD ORDERABLES Final Result Performing Organization Address [facility] Co de Phone Number [facility] [place] [address] * (ABNORMAL) POC Blood Gas and Chemistries, Arterial - (12/09/2024 3:25 PM CDT) pH, Art POC 7.34(L) 7.35 - 7.45 pCO2, Art POC 43 35 - 45 mmHg [facility] pO2, Art POC 158(H) 83 - 108 mmHg [facility] Na, POC 139 135 - 145 mmol/L [facility] K POC 5.5(H) 3.3 - 4.9 mmol/L [facility] Comment: Interpretive Data Not all point of care methods assess for hemolysis. Confirm with instrument and retest K+ if not consistent with clinical signs and symptoms. Current Interpretive Data was last revised on 2023. Cl, POC 109 97 - 110 mmol/L [facility] Ionized Ca, POC 5.28(H) 4.50 - 5.10 mg/dL [facility] Glucose, POC 133 70 - 199 mg/dL [facility] Lactate POC 1.4 0.7 - 2.0 mmol/L [facility] SO2 (chandra) arterial 100(H) 90 - 95 % [facility] Base excess, POC -2.5 mmol/L [facility] HCO3, Art POC 23 20 - 30 mmol/L [facility] Hct, POC 31.0(L) 36.3 - 45.3 % [facility] Total Hb, POC 10.3(L) 11.9 - 15.5 g/dL [facility] Blood 12/09/2024 3:25 PM CDT 12/09/2024 3:25 PM CDT us Indiana Mortensen MD LAB POCT ORDERABLES - DEVICE Final Result [facility] Department [place] [address] * (ABNORMAL) POC Blood Gas and Chemistries, Arterial - (12/09/2024 2:01 PM CDT) pH, Art POC 7.33(L) 7.35 - 7.45 pCO2, Art POC 44 35 - 45 mmHg [facility] pO2, Art POC 143(H) 83 - 108 mmHg [facility] Na, POC 140 135 - 145 mmol/L [facility] K POC 4.8 3.3 - 4.9 mmol/L [facility] Comment: Interpretive Data Not all point of care methods assess for hemolysis. Confirm with instrument and retest K+ if not consistent with clinical signs and symptoms. Current Interpretive Data was last revised on 2023. Cl, POC 113(H) 97 - 110 mmol/L [facility] Ionized Ca, POC 5.27(H) 4.50 - 5.10 mg/dL [facility] Glucose, POC 140 70 - 199 mg/dL [facility] Lactate POC 2.6(H) 0.7 - 2.0 mmol/L [facility] SO2 (chandra) arterial 100(H) 90 - 95 % [facility] Base excess, POC -2.7 mmol/L [facility] HCO3, Art POC 23 20 - 30 mmol/L [facility] Hct, POC 31.0(L) 36.3 - 45.3 % [facility] Total Hb, POC 10.3(L) 11.9 - 15.5 g/dL [facility] Blood 12/09/2024 2:01 PM CDT 12/09/2024 2:01 PM CDT us Indiana Mortensen MD LAB POCT ORDERABLES - DEVICE Final Result Performing Organization Address [facility] Co de Phone Number [facility] [place] [address] * Transfuse plasma (12/09/2024 1:19 PM CDT) Blood Deana Cruz MD BLOOD TRANSFUSION ORDERABLES Final Result Performing Organization Address [facility] Co de Phone Number [facility] [place] [address] * Prepare plasma: 1 Units (12/09/2024 12:52 PM CDT) [facility] Signature Product code [id number] Unit Number [id number] [facility] Product Blood Type BPOS [facility] Dispense Status PRESUMED TRANSFUSED [facility] Blood Venous blood specimen / Unknown 12/09/2024 12:52 PM CDT 12/09/2024 12:53 PM CDT Narrative [facility] - 12/10/2024 8:01 AM CDT Date required:-[id number] FFP # of Units:-1-Units Reasons:-Immediate need for surgical intervention Deana Cruz MD BLOOD BANK PRODUCT ORDERABLE S Final Result Performing Organization Address [facility] Co de Phone Number [facility] [place] [address] * (ABNORMAL) POCT prothrombin time (12/09/2024 12:43 PM CDT) PT, POC 31.1(H) 11.7 - 16.6 sec INR, POC 2.4(H) 0.9 - 1.2 [facility] Blood 12/09/2024 12:4 3 PM CDT 12/09/2024 12:43 PM CDT Indiana Mortensen MD LAB POCT ORDERABLES - DEVICE Final Result Performing Organization Address [facility] Co de Phone Number [facility] [place] [address] * (ABNORMAL) POCT hemoglobin, hematocrit and platelet count (12/09/2024 12:43 PM CDT) Pathologist [facility] Hgb, POC 7.9(L) 11.9 - 15.5 g/dL Hematocrit POC 23.9(L) 35.6 - 45.5 % [facility] Platelet POC 179 150 - 400 K/cumm [facility] Blood 12/09/2024 12:4 3 PM CDT 12/09/2024 12:43 PM CDT Result [facility] Indiana Mortensen MD LAB POCT ORDERABLES - DEVICE Final Result Performing Organization Address [facility] Co de Phone Number [facility] [place] [address] * (ABNORMAL) POCT Partial thromboplastin time (PTT) (12/09/2024 12:43 PM CDT) APTT, POC 29.6(L) 32.5 - 46.1 sec Blood 12/09/2024 12:4 3 PM CDT 12/09/2024 12:43 PM CDT Indiana Mortensen MD LAB POCT ORDERABLES - DEVICE Final Result [facility] Department [place] [address] * (ABNORMAL) POCT heparin/ACT CPB (12/09/2024 12:39 PM CDT) Pathologist [facility] Heparin POC 0.0 units/mL ACT, CPB 102(L) 112 - 174 sec [facility] Blood 12/09/2024 12:3 9 PM CDT 12/09/2024 12:39 PM CDT us Indiana Mortensen MD LAB POCT ORDERABLES - DEVICE Final Result Performing Organization Address [facility] Co de Phone Number [facility] Department [place] [address] * (ABNORMAL) POC Blood Gas and Chemistries, Arterial - (12/09/2024 12:37 PM CDT) [facility] pH, Art POC 7.36 7.35 - 7.45 pCO2, Art POC 39 35 - 45 mmHg [facility] pO2, Art POC 263(H) 83 - 108 mmHg [facility] Na, POC 140 135 - 145 mmol/L [facility] K POC 4.3 3.3 - 4.9 mmol/L [facility] Comment: Interpretive Data Not all point of care methods assess for hemolysis. Confirm with instrument and retest K+ if not consistent with clinical signs and symptoms. Current Interpretive Data was last revised on 2023. Cl, POC 110 97 - 110 mmol/L [facility] Ionized Ca, POC 6.04(H) 4.50 - 5.10 mg/dL [facility] Glucose, POC 172 70 - 199 mg/dL [facility] Lactate POC 3.7(H) 0.7 - 2.0 mmol/L [facility] SO2 (chandra) arterial 100(H) 90 - 95 % [facility] Base excess, POC -3.2 mmol/L [facility] HCO3, Art POC 22 20 - 30 mmol/L [facility] Hct, POC 25.0(L) 36.3 - 45.3 % [facility] Total Hb, POC 8.4(L) 11.9 - 15.5 g/dL [facility] Blood 12/09/2024 12:3 7 PM CDT 12/09/2024 12:37 PM CDT us Indiana Mortensen MD LAB POCT ORDERABLES - DEVICE Final Result [facility] Department [place] [address] * (ABNORMAL) POC Blood Gas and Chemistries, Arterial - (12/09/2024 12:05 PM CDT) pH, Art POC 7.37 7.35 - 7.45 pCO2, Art POC 40 35 - 45 mmHg [facility] pO2, Art POC 423(H) 83 - 108 mmHg [facility] Na, POC 139 135 - 145 mmol/L [facility] K POC 5.3(H) 3.3 - 4.9 mmol/L [facility] Comment: Interpretive Data Not all point of care methods assess for hemolysis. Confirm with instrument and retest K+ if not consistent with clinical signs and symptoms. Current Interpretive Data was last revised on 2023. Cl, POC 109 97 - 110 mmol/L [facility] Ionized Ca, POC 4.11(L) 4.50 - 5.10 mg/dL [facility] Glucose, POC 170 70 - 199 mg/dL [facility] Lactate POC 4.1(C) 0.7 - 2.0 mmol/L [facility] SO2 (chandra) arterial 100(H) 90 - 95 % [facility] Base excess, POC -2.0 mmol/L [facility] HCO3, Art POC 23 20 - 30 mmol/L [facility] Hct, POC 23.0(L) 36.3 - 45.3 % [facility] Total Hb, POC 7.6(L) 11.9 - 15.5 g/dL [facility] Blood 12/09/2024 12:0 5 PM CDT 12/09/2024 12:05 PM CDT Indiana Mortensen MD LAB POCT ORDERABLES - DEVICE Final Result Performing Organization Address [facility] de Phone Number [facility] [place] [address] * (ABNORMAL) POCT heparin/ACT CPB (12/09/2024 12:03 PM CDT) Heparin POC <2.8 units/mL ACT, CPB 483(H) 112 - 174 sec [facility] Blood 12/09/2024 12:0 3 PM CDT 12/09/2024 12:03 PM CDT Indiana Mortensen MD LAB POCT ORDERABLES - DEVICE Final Result Performing Organization Address [facility] de Phone Number [facility] [place] [address] * (ABNORMAL) POCT heparin/ACT CPB (12/09/2024 11:32 AM CDT) Heparin POC 4.1 units/mL ACT, CPB 643(H) 112 - 174 sec [facility] Blood 12/09/2024 11:3 2 AM CDT 12/09/2024 11:32 AM CDT Indiana Mortensen MD LAB POCT ORDERABLES - DEVICE Final Result Performing Organization Address [facility] [place] [address] * (ABNORMAL) POC Blood Gas and Chemistries, Arterial - (12/09/2024 11:31 AM CDT) pH, Art POC 7.37 7.35 - 7.45 pCO2, Art POC 40 35 - 45 mmHg [facility] pO2, Art POC 340(H) 83 - 108 mmHg [facility] Na, POC 139 135 - 145 mmol/L [facility] K POC 4.8 3.3 - 4.9 mmol/L [facility] Comment: Interpretive Data Not all point of care methods assess for hemolysis. Confirm with instrument and retest K+ if not consistent with clinical signs and symptoms. Current Interpretive Data was last revised on 2023. Cl, POC 109 97 - 110 mmol/L [facility] Ionized Ca, POC 4.44(L) 4.50 - 5.10 mg/dL [facility] Glucose, POC 170 70 - 199 mg/dL [facility] Lactate POC 3.4(H) 0.7 - 2.0 mmol/L [facility] SO2 (chandra) arterial 100(H) 90 - 95 % [facility] Base excess, POC -2.0 mmol/L [facility] HCO3, Art POC 23 20 - 30 mmol/L [facility] Hct, POC 21.0(L) 36.3 - 45.3 % [facility] Total Hb, POC 7.1(L) 11.9 - 15.5 g/dL [facility] Blood 12/09/2024 11:3 1 AM CDT 12/09/2024 11:31 AM CDT Indiana Mortensen MD LAB POCT ORDERABLES - DEVICE Final Result Performing Organization Address [facility]/ZIP Co de Phone Number [facility] Department [place] [address] * (ABNORMAL) POCT heparin/ACT CPB (12/09/2024 11:01 AM CDT) Heparin POC 3.4 units/mL ACT, CPB 538(H) 112 - 174 sec [facility] Blood 12/09/2024 11:0 1 AM CDT 12/09/2024 11:01 AM CDT Indiana Mortensen MD LAB POCT ORDERABLES - DEVICE Final Result [facility] Department [place] [address] * (ABNORMAL) POC Blood Gas and Chemistries, Arterial - (12/09/2024 11:00 AM CDT) pH, Art POC 7.40 7.35 - 7.45 pCO2, Art POC 40 35 - 45 mmHg [facility] pO2, Art POC 257(H) 83 - 108 mmHg [facility] Na, POC 139 135 - 145 mmol/L [facility] K POC 4.7 3.3 - 4.9 mmol/L [facility] Comment: Interpretive Data Not all point of care methods assess for hemolysis. Confirm with instrument and retest K+ if not consistent with clinical signs and symptoms. Current Interpretive Data was last revised on 2023. Cl, POC 110 97 - 110 mmol/L [facility] Ionized Ca, POC 4.31(L) 4.50 - 5.10 mg/dL [facility] Glucose, POC 170 70 - 199 mg/dL [facility] Lactate POC 2.9(H) 0.7 - 2.0 mmol/L [facility] SO2 (chandra) arterial 100(H) 90 - 95 % [facility] Base excess, POC 0.0 mmol/L [facility] HCO3, Art POC 25 20 - 30 mmol/L [facility] Hct, POC 23.0(L) 36.3 - 45.3 % [facility] Total Hb, POC 7.6(L) 11.9 - 15.5 g/dL [facility] Blood 12/09/2024 11:0 0 AM CDT 12/09/2024 11:00 AM CDT us Indiana Mortensen MD LAB POCT ORDERABLES - DEVICE Final Result [facility] Department [place] [address] * Surgical pathology (12/09/2024 10:36 AM CDT) Tissue (Heart Valve) 12/09/2024 10:36 AM CDT Narrative PATHOLOGY [facility] - 12/15/2024 5:28 PM CDT EPIC results best viewed via link to PDF [facility] [place] [address] Note to Patients: This report may contain a detailed description of human tissue sent by a health care provider to the laboratory for pathologic evaluation. The content of this report is essential for diagnosis and may provide important critical findings. This information may be unfamiliar to patients to review without a medical professional present. It is advised that the patient review this report in the presence of a health care provider who can answer questions and explain the details. SURGICAL PATHOLOGY REPORT FINAL Patient Name: ADI FLOWERS Gender: F : 1960 (Age: 64) Address: [address] [place] [address] Hospital #: [id number] Taken:12/09/2024 Received:12/09/2024 Reported: 12/15/2024 Patient Type: [facility] Inpatient Service: Cardiothoracic Location: [place] [address] Physician(s): MD Pacheco Perez DO Diagnosis: A. 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 Darci Solitario MD PhD Report Electronically Reviewed and Signed Out By Darci Solitario MD PhD 12/15/2024 17:28:23 Franky Phelps M.D. History: The patient is a 64-year-old woman with history of aortic stenosis, severe and single vessel coronary artery disease. Operative procedure: Replacement aortic valve. Specimen(s) Received: A: Aortic valve leaflets Gross Description: Received in formalin labeled patient identifiers and aortic valve leaflets are three todd-white leaflets that range from 2.02 3.0 cm in greatest dimension and aggregating to 3.5 x 3.0 x 0.5 cm in aggregate. The leaflets range from 0.1 to 0.5 cm in thickness. The leaflets are todd-white to todd-yellow with atherosclerotic changes and calcified vegetations that range from 0.5 to 1.3 cm in greatest dimension. Iron Piler sections are submitted. Labeled A1. decal one. Jar 1. 12/09/2024 17:08 PA(s): Lisandra Tovar, MS, PA(ASCP)CM By this signature, I attest that the above diagnosis is based upon my personal examination of the slides(and/or other material). Addenda/Procedures The performance characteristics of some immunohistochemical stains, fluorescence in-situ hybridization tests and immunophenotyping by flow cytometry cited in this report (if any) were determined by the Surgical Pathology and Flow Cytometry Departments at [facility] as part of an ongoing engagement quality consultant program and in compliance with federally mandated regulations drawn from the Clinical Laboratory Improvement Act of 1988 (CLIA '88). Some of these tests rely on the use of analyte specific reagents and are subject to specific labeling requirements by the US Food and Drug Administration. Such diagnostic tests may only be performed in a facility that is certified by the Department of Health and Human Services as a high complexity laboratory under CLIA '88. The FDA has determined that such clearance or approval is not necessary. This test is used for clinical purposes. It should not be regarded as investigational or for research. Nevertheless, federal rules concerning the medical use of analyte specific reagents require that the following disclaimer be attached to the report: This test was developed and its performance characteristics determined by the Surgical Pathology and Flow Cytometry Departments of [facility]. It has not been cleared or approved by the U. S. Food and Drug Administration. IMAGES AND SCANNED DOCUMENTS, IF INCLUDED, ONLY VIEWABLE IN PDF VERSION OF REPORT us Indiana Mortensen MD LAB PATHOLOGY ORDERABLES Brenda wharton Result PATHOLOGY [facility] 3rd Floor [place], [place] [phone] * (ABNORMAL) POCT heparin/ACT CPB (12/09/2024 10:34 AM CDT) Heparin POC 3.4 units/mL ACT, CPB 578(H) 112 - 174 sec [facility] Blood 12/09/2024 10:3 4 AM CDT 12/09/2024 10:34 AM CDT Indiana Mortensen MD LAB POCT ORDERABLES - DEVICE Final Result [facility] Department [place] [address] * (ABNORMAL) POC Blood Gas and Chemistries, Arterial - (12/09/2024 10:33 AM CDT) pH, Art POC 7.40 7.35 - 7.45 pCO2, Art POC 41 35 - 45 mmHg [facility] pO2, Art POC 284(H) 83 - 108 mmHg [facility] Na, POC 140 135 - 145 mmol/L [facility] K POC 4.6 3.3 - 4.9 mmol/L [facility] Comment: Interpretive Data Not all point of care methods assess for hemolysis. Confirm with instrument and retest K+ if not consistent with clinical signs and symptoms. Current Interpretive Data was last revised on 2023. Cl, POC 109 97 - 110 mmol/L [facility] Ionized Ca, POC 4.32(L) 4.50 - 5.10 mg/dL [facility] Glucose, POC 175 70 - 199 mg/dL [facility] Lactate POC 3.1(H) 0.7 - 2.0 mmol/L [facility] SO2 (chandra) arterial 100(H) 90 - 95 % [facility] Base excess, POC 0.5 mmol/L [facility] HCO3, Art POC 25 20 - 30 mmol/L [facility] Hct, POC 24.0(L) 36.3 - 45.3 % [facility] Total Hb, POC 7.9(L) 11.9 - 15.5 g/dL [facility] Blood 12/09/2024 10:3 3 AM CDT 12/09/2024 10:33 AM CDT Indiana Mortensen MD LAB POCT ORDERABLES - DEVICE Final Result Performing Organization Address [facility] Co de Phone Number [facility] Department [place] [address] * (ABNORMAL) POCT heparin/ACT CPB (12/09/2024 10:07 AM CDT) Heparin POC >4.7 units/mL ACT, CPB 698(H) 112 - 174 sec [facility] Blood 12/09/2024 10:0 7 AM CDT 12/09/2024 10:07 AM CDT Indiana Mortensen MD LAB POCT ORDERABLES - DEVICE Final Result Performing Organization Address [facility] Co de Phone Number [facility] Department [place] [address] * (ABNORMAL) POC Blood Gas and Chemistries, Arterial - (12/09/2024 10:06 AM CDT) pH, Art POC 7.24(L) 7.35 - 7.45 pCO2, Art POC 48(H) 35 - 45 mmHg [facility] pO2, Art POC 460(H) 83 - 108 mmHg [facility] Na, POC 138 135 - 145 mmol/L [facility] K POC 4.4 3.3 - 4.9 mmol/L [facility] Comment: Interpretive Data Not all point of care methods assess for hemolysis. Confirm with instrument and retest K+ if not consistent with clinical signs and symptoms. Current Interpretive Data was last revised on 2023. Cl, POC 109 97 - 110 mmol/L [facility] Ionized Ca, POC 4.53 4.50 - 5.10 mg/dL [facility] Glucose, POC 179 70 - 199 mg/dL [facility] Lactate POC 3.1(H) 0.7 - 2.0 mmol/L [facility] SO2 (chandra) arterial 100(H) 90 - 95 % [facility] Base excess, POC -6.6 mmol/L [facility] HCO3, Art POC 21 20 - 30 mmol/L [facility] Hct, POC 28.0(L) 36.3 - 45.3 % [facility] Total Hb, POC 9.3(L) 11.9 - 15.5 g/dL [facility] Blood 12/09/2024 10:0 6 AM CDT 12/09/2024 10:06 AM CDT us Indiana Mortensen MD LAB POCT ORDERABLES - DEVICE Final Result [facility] Department [place] [address] * (ABNORMAL) POC Blood Gas and Chemistries, Arterial - (12/09/2024 9:41 AM CDT) pH, Art POC 7.22(L) 7.35 - 7.45 pCO2, Art POC 57(H) 35 - 45 mmHg [facility] pO2, Art POC 134(H) 83 - 108 mmHg [facility] Na, POC 138 135 - 145 mmol/L [facility] K POC 4.4 3.3 - 4.9 mmol/L [facility] Comment: Interpretive Data Not all point of care methods assess for hemolysis. Confirm with instrument and retest K+ if not consistent with clinical signs and symptoms. Current Interpretive Data was last revised on 2023. Cl, POC 106 97 - 110 mmol/L [facility] Ionized Ca, POC 4.75 4.50 - 5.10 mg/dL [facility] Glucose, POC 158 70 - 199 mg/dL [facility] Lactate POC 1.9 0.7 - 2.0 mmol/L [facility] SO2 (chandra) arterial 99(H) 90 - 95 % [facility] Base excess, POC -5.0 mmol/L [facility] HCO3, Art POC 23 20 - 30 mmol/L [facility] Hct, POC 38.0 36.3 - 45.3 % [facility] Total Hb, POC 12.6 11.9 - 15.5 g/dL [facility] Blood 12/09/2024 9:41 AM CDT 12/09/2024 9:41 AM CDT Indiana Mortensen MD LAB POCT ORDERABLES - DEVICE Final Result Performing Organization Address [facility] Co de Phone Number [facility] [place] [address] * (ABNORMAL) POCT heparin/ACT CPB (12/09/2024 9:35 AM CDT) Heparin POC 4.8 units/mL ACT, CPB 688(H) 112 - 174 sec [facility] Blood 12/09/2024 9:35 AM CDT 12/09/2024 9:35 AM CDT Indiana Mortensen MD LAB POCT ORDERABLES - DEVICE Final Result Performing Organization Address [facility] de Phone Number [facility] [place] [address] * 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 (12/09/2024 8:47 AM CDT) Anatomical Region Laterality Modality Other Narrative 12/09/2024 8:47 AM CDT Deana Cruz MD 12/17/2024 7:35 PM ROSS Date/time: Staff: Supervising anesthesiologist: Deana Cruz MD Performed by: 1st Fellow: Pasquale Dela Cruz MD Preprocedure checklist: patient identified, procedure contraindications assessed, procedure consent, risks, benefits and alternatives discussed, monitors and equipment checked, timeout performed and ROSS probe inserted into esophagus using lubricating jelly General procedure Information: Reason for procedure/indications: assessment of ascending aorta, assessment of surgical repair, hemodynamic instability and hemodynamic monitoring Performed: personally and with fellows Procedure performed at surgeon's request: yes Results discussed with surgeon: yes Images submitted to archive: yes Patient location: OR Intubated: yes Bite blocked placed: yes Probe Insertion: easy Complications: no Probe type: adult Modalities: 2D imaging, continuous wave Doppler, pulsed wave Doppler and color Doppler Billing information: Physician requesting echo: Indiana Mortensen MD CPT code: ROSS placement and diagnostic exam, non-congenital (58530) ICD code(s) for medical necessity: I35.2 - Nonrheumatic aortic (valve) stenosis with insufficiency Echocardiographic and doppler measurements: Ventricles: Left ventricle: Cavity size: normal Hypertrophy: Yes Thrombus: No Global function: normal LVEF%: 50-60 Right ventricle: Cavity size: normal Hypertrophy: no Thrombus: No Global function: normal Interventricular septum: normal Regional function: 1- Basal anteroseptal: normal 2- Basal anterior: normal 3- Basal anterolateral: normal 4- Basal inferolateral: normal 5- Basal inferior: normal 6- Basal inferoseptal: normal 7- Mid anteroseptal: normal 8- Mid anterior: normal 9- Mid anterolateral: normal 10- Mid inferolateral: normal 11- Mid inferior: normal 12- Mid inferoseptal: normal 13- Apical anterior: normal 14- Apical lateral: normal 15- Apical inferior: normal 16- Apical septal: normal 17- [place]: normal Valves: Aortic Valve: Annulus: calcified Leaflet morphology: calcified and thickened Leaflet motion: restricted Stenosis: severe Regurgitation: mild Mitral valve: Annulus: calcified Leaflet morphology anterior: normal Leaflet morphology posterior: normal Leaflet motion anterior: normal and restricted Leaflet motion posterior: normal and restricted Stenosis: mild Regurgitation: mild Tricuspid valve: Annulus: normal Leaflet morphology: normal Leaflet motion: normal Stenosis: none Regurgitation: none Pulmonic valve: Annulus: normal Stenosis: none Regurgitation: absent Aorta: Ascending aorta: Size: normal Dissection: no Plaque thickness(mm): 0-3 Plaque mobile: no Aortic arch: Size: normal Dissection: no Plaque thickness(mm): 0-3 Plaque mobile: no Descending aorta: Size: normal Dissection: no Plaque thickness(mm): 0-3 Plaque mobile: no Atria: Right atrium: Size: normal Spontaneous echo contrast: No Thrombus: no Mass: No Left atrium: Size: normal (normal) Spontaneous echo contrast: No Thrombus: no Mass: No Left atrial appendage: normal Interatrial septum: normal Diastolic function and other findings: Diastolic function: normal Pericardium: normal Left pleural effusion: none Right pleural effusion: normal Pulmonary venous flow: normal Pre-procedure ROSS exam summary: Patient presenting for AVR, root enlargement, CABG. Intubated, GA, NSR. No transgastric views obtained given history of gastric bypass. Concentric LVH with normal cavity size and function. Normal RV size and function. Trileaflet AV with heavy calcification, restriction with severe stenosis and mild AI, no gradients obtained. LVOT is small (1.4 cm) with flow acceleration noted. Significant MAC with some mitral valve thickening/restriction with mild MR, mild stenosis (gradient 3). No TR. No PFO by CFD. Normal pulm venous flow. Aorta with some calcifications, no dissection, no mobile plaque Postprocedure (follow-up) ROSS exam: LV: unchanged and normal systolic function RV: unchanged and normal systolic function Interventricular septum: unchanged Aortic valve: bioprosthetic Mitral valve: unchanged, mild MR and mild MS Pulmonic valve: unchanged Tricuspid valve: unchanged Atria: unchanged Aorta: unchanged Pericardium: unchanged Left pleural: unchanged Right pleural: unchanged Postprocedure (follow-up) ROSS exam comments: S/p AVR with root enlargement, CABG. V paced > NSR. No inotropes. Unchanged normal biventricular function. BioAVR appears well seated without AI and no PVL. Gradient not assessed due to gastric bypass. There does appear to remain turbulent flow in the LVOT similar to prior. Mitral valve unchanged. No TR. No aortic dissection. Attestation Statement: By signing this report the attending anesthesiologist certifies that he or she has personally reviewed and interpreted the echocardiogram and has reviewed and or edited and agrees with the written comments contained within the report. us Deana Cruz MD ANESTHESIA ORDERABLES Final Result * Central Venous Line (12/09/2024 8:24 AM CDT) Narrative Pasquale Dela Cruz MD - 12/09/2024 8:24 AM CDT Pasquale Dela Cruz MD 12/09/2024 8:24 AM Central Venous Line Patient location: OR Indication: central venous access and CVP monitoring Staff: Supervising provider: Deana Cruz MD Placed by: Fellow: Pasquale Dela Cruz MD Procedure prep: Patient position: Trendelenburg. PPE: provider hand hygiene, provider hat/mask, sterile gloves, sterile gown, full body drape, sterile gel and sterile probe covers. Prep solution: chlorhexadine/alcohol was applied to area. Ultrasound Evaluation: Ultrasound was prepped into field and used prior to prep. Prior to the procedure, the cannulated vein was evaluated by ultrasound and deemed suitably patent for access.This vessel was accessed using real-time ultrasound guidance and an image was placed in the patient's medical record Central line: Laterality: right Site: internal jugular An individually distinct skin insertion site is being utilized for placement of the catheter. Catheter type: introducer sheath Oximetric catheter: yes Catheter size: 9 Fr. Catheter length: 10 cm Technique: anatomy identified with ultrasound, Seldinger technique, wire threaded easily and wire removed intact Venous verification: manometry and ultrasound confirmation Post insertion: all ports aspirated, all ports flushed easily, line sutured in place and occlusive dressing applied Chlorhexidine patch applied: yes Number of attempts: 1 Assessment: Events: patient tolerated procedure well with no complications us Deana Cruz MD ANESTHESIA ORDERABLES Final Result * Central Venous Line (12/09/2024 8:23 AM CDT) Narrative Pasquale Dela Cruz MD - 12/09/2024 8:23 AM CDT Pasquale Dela Cruz MD 12/09/2024 8:23 AM Central Venous Line Patient location: OR Indication: central venous access Staff: Supervising provider: Deana Cruz MD Placed by: Fellow: Pasquale Dela Cruz MD Procedure prep: Patient position: Trendelenburg. PPE: provider hand hygiene, provider hat/mask, sterile gloves, sterile gown, sterile gel, sterile probe covers and full body drape. Prep solution: chlorhexadine/alcohol was applied to area. Ultrasound Evaluation: Ultrasound was prepped into field. Prior to the procedure, the cannulated vein was evaluated by ultrasound and deemed suitably patent for access.This vessel was accessed using real-time ultrasound guidance and an image was placed in the patient's medical record Central line: Laterality: right Site: internal jugular An individually distinct skin insertion site is being utilized for placement of the catheter. Catheter type: quad lumen Catheter size: 8.5 Fr. Catheter length: 16 cm Catheter length at skin: 16 cm Technique: anatomy identified with ultrasound, Seldinger technique, wire threaded easily and wire removed intact Venous verification: manometry, pressure transduced and ultrasound confirmation Post insertion: all ports aspirated, all ports flushed easily, line sutured in place and occlusive dressing applied Chlorhexidine patch applied: yes Number of attempts: 1 Assessment: Events: patient tolerated procedure well with no complications us Deana Cruz MD ANESTHESIA ORDERABLES Final Result * Arterial Line (12/09/2024 8:23 AM CDT) Pasquale Cain MD - 12/09/2024 8:23 AM CDT Pasquale Dela Cruz MD 12/09/2024 8:23 AM Arterial Line Patient location: OR Indication: continuous blood pressure monitoring and blood sampling needed Ultrasound assisted: yes Staff: Supervising provider: Deana Cruz MD Placed by: Fellow: Pasquale Dela Cruz MD Procedure prep: Prep solution: chlorhexadine/alcohol Prep: provider hat/mask and sterile gloves Skin infiltrated with lidocaine 1%: yes Arterial line: Catheter size: 20 gauge Catheter length: 1 and 3/4 inch Catheter type: wire-guided catheter Seldinger technique: yes Laterality: left Site: radial artery Line secured: tape and Tegaderm Results: good waveform and good blood return Number of attempts: 1 Assessment: Events: patient tolerated procedure well with no complications us Deana Cruz MD ANESTHESIA ORDERABLES Final Result * Airway (12/09/2024 8:23 AM CDT) Pasquale Cain MD - 12/09/2024 8:23 AM CDT Pasquale Dela Cruz MD 12/09/2024 8:23 AM Airway Patient location: OR Urgency: elective Indications for airway management: anesthesia Difficult airway: no Staff: Supervising provider: Deana Cruz MD Placed by: Fellow: Pasquale Dela Cruz MD Emergent airway documentation: Risks and benefits discussed: yes Consent obtained: yes Consent given by: patient Airway prep: Preoxygenated: yes Patient position: sniffing Mask difficulty assessment: 1 - vent by mask Spontaneous ventilation during airway: absent Sedation level during airway: GA Final airway details: Final airway type: endotracheal airway Tube type: ETT ETT size: 8.0 mm Cuffed: yes Technique used for successful ETT placement: video laryngoscopy Devices/Methods used in placement: stylet Insertion site: oral Blade type: Radha Video blade type: Saldivar Blade size: 3 Cormack-Lehane (video): grade I - full view of glottis Cuff volume: 8 mL Cuff inflated with: air ETT to lips: 22 cm Placement verified by: auscultation and CO2 detection Airway secured with: silk tape Number of attempts: 1 Planned trial extubation: yes Deana Cruz MD ANESTHESIA ORDERABLES Final Result * POCT heparin dose response, CPB (12/09/2024 7:35 AM CDT) Pathologist [facility] Baseline ACT POC 152 112 - 174 sec Heparin dose response slope POC 89 60 - 195 [facility] Projected Heparin Concentration POC 3.7 units/mL [facility] Blood 12/09/2024 7:35 AM CDT 12/09/2024 7:35 AM CDT Indiana Mortensen MD LAB POCT ORDERABLES - DEVICE Final Result [facility] Department [place] [address] * (ABNORMAL) POC Blood Gas and Chemistries, Arterial - (12/09/2024 7:28 AM CDT) Pathologist [facility] pH, Art POC 7.37 7.35 - 7.45 pCO2, Art POC 44 35 - 45 mmHg [facility] pO2, Art POC 483(H) 83 - 108 mmHg [facility] Na, POC 140 135 - 145 mmol/L [facility] K POC 4.1 3.3 - 4.9 mmol/L [facility] Comment: Interpretive Data Not all point of care methods assess for hemolysis. Confirm with instrument and retest K+ if not consistent with clinical signs and symptoms. Current Interpretive Data was last revised on 2023. Cl, POC 107 97 - 110 mmol/L [facility] Ionized Ca, POC 4.74 4.50 - 5.10 mg/dL [facility] Glucose, POC 103 70 - 199 mg/dL [facility] Lactate POC 1.3 0.7 - 2.0 mmol/L [facility] SO2 (chandra) arterial 100(H) 90 - 95 % [facility] Base excess, POC -0.2 mmol/L [facility] HCO3, Art POC 25 20 - 30 mmol/L [facility] Hct, POC 39.0 36.3 - 45.3 % [facility] Total Hb, POC 13.1 11.9 - 15.5 g/dL [facility] Blood 12/09/2024 7:28 AM CDT 12/09/2024 7:28 AM CDT Indiana Mortensen MD LAB POCT ORDERABLES - DEVICE Final Result Performing Organization Address [facility] de Phone Number [facility] Department [place] [address] * Type and screen (12/09/2024 6:56 AM CDT) Sarah, indirect Negative ABO Rh B Negative [facility] Blood 12/09/2024 6:56 AM CDT 12/09/2024 7:54 AM CDT Narrative [facility] - 12/09/2024 8:41 AM CDT Has the patient had Daratumumab or Isatuximab in the past 6 months?->Unknown Deana Cruz MD LAB BLOOD BANK TEST ORDERABL ES Final Result Performing Organization Address [facility] de Phone Number [facility] Department [place] [address] * ROSS Add-On For OR (12/09/2024 6:04 AM CDT) Narrative [facility] PROSOLV_CARDIOREPORT_CONS SCIMAGE - 12/09/2024 6:04 AM CDT Procedure Auto Finalized by Rule: BW CV ROSS DURING CASE OR Please see the Anesthesiologist's Procedure Note for the results. us Pasquale Dela Cruz MD CV ECHO PROCEDURES Final Result [facility] PROSOLV_CARDIOREPORT_CONS SCIMAGE * Prepare RBC: 4 Units (12/09/2024 5:42 AM CDT) Product code [id number] Unit Number [id number] 5-7 CERNER [facility] Product Blood Type BNEG CERNER BJ Dispense Status RETURNED CERNER BJ Product code [id number] CERNER [facility] Unit Number [id number] 9-0 CERNER [facility] Product Blood Type BNEG CERNER BJ Dispense Status RETURNED CERNER [facility]J Product code [id number] CERNER [facility] Unit Number [id number] 7-2 CERNER [facility] Product Blood Type BNEG CERNER BJ Dispense Status RETURNED CERNER [facility] Product code [id number] CERNER [facility] Unit Number [id number] 2-W CERNER [facility] Product Blood Type BNEG CERNER [facility] Dispense Status [facility] Blood 12/09/2024 5:42 AM CDT 12/09/2024 5:41 AM CDT Narrative ALEX [facility] - 12/09/2024 3:35 PM CDT Specify Procedure:->AVR WITH ROOT ENLARGEMENT, CABG, VELA HARVEST Are special requirements needed? (All products are leukoreduced and CMV- safe)- >No Date required:-[id number] LRRBC # of Dhios-[id number] Reasons:-Hold for procedure (specify procedure)} Rekha Dee NP BLOOD BANK PRODUCT STEVEN MEJIA Final Result [facility] Department [place] [address] * TYPE AND SCREEN 14 DAY (11/27/2024 12:51 PM CDT) Sarah, indirect Negative ABO Rh B Negative [facility] Blood 11/27/2024 12:5 1 PM CDT 11/27/2024 1:18 PM CDT Narrative [facility] - 11/27/2024 2:33 PM CDT Has the patient had Daratumumab or Isatuximab in the past 6 months?->Unknown Is this test being ordered in advance for a procedure?->Yes Expected date of procedure:->12/09/24 Has the patient been transfused in the past 3 months?->No Has the patient been in the past 3 months?->No Brina Rico NP LAB BLOOD BANK TEST ORDER ROSY Final Result Performing Organization Address [facility] [place] de Phone Number [facility] [place] [address] * eGFR (11/27/2024 12:51 PM CDT) eGFR [...] NP LAB BLOOD ORDERABLES Brenda l Result Performing Organization Address [facility] Co de Phone Number [facility] Department [place] [address] * Differential, auto (11/27/2024 12:51 PM CDT) Neutrophil abs 6.41 1.50 - 6.50 K/cumm Imm gran abs 0.04 0.00 - 0.10 K/cumm [facility] Lymphocyte abs 1.34 0.80 - 3.30 K/cumm CERNER [facility] Monocyte abs 0.51 0.20 - 0.80 K/cumm CERNER [facility] Eosinophil abs 0.31 0.00 - 0.50 K/cumm CERNER [facility] Basophil abs 0.05 0.00 - 0.10 K/cumm CERNER [facility] Neutrophil pct 73.9 % [facility] Comment: Interpretive Data Percent cell count reference ranges are not reported, since discordance with absolute values may lead to misinterpretation of CBC data. Current Interpretive Data was last revised on 2017. Imm gran pct 0.5 % [facility] Comment: Interpretive Data Percent cell count reference ranges are not reported, since discordance with absolute values may lead to misinterpretation of CBC data. Current Interpretive Data was last revised on 2017. Lymphocyte pct 15.5 % [facility] Comment: Interpretive Data Percent cell count reference ranges are not reported, since discordance with absolute values may lead to misinterpretation of CBC data. Current Interpretive Data was last revised on 2017. Monocyte pct 5.9 % [facility] Comment: Interpretive Data Percent cell count reference ranges are not reported, since discordance with absolute values may lead to misinterpretation of CBC data. Current Interpretive Data was last revised on 2017. Eosinophil pct 3.6 % [facility] Comment: Interpretive Data Percent cell count reference ranges are not reported, since discordance with absolute values may lead to misinterpretation of CBC data. Current Interpretive Data was last revised on 2017. Basophil pct 0.6 % [facility] Comment: Interpretive Data Percent cell count reference ranges are not reported, since discordance with absolute values may lead to misinterpretation of CBC data. Current Interpretive Data was last revised on 2017. Blood 11/27/2024 12:5 1 PM CDT 11/27/2024 1:32 PM CDT Brina Rico EXPORT SALES ASSISTANT LAB BLOOD ORDERABLES Brenda l Result Performing Organization Address [facility] de Phone Number [facility] Department [place] [address] * CPAP aPTT algorithm (11/27/2024 12:51 PM CDT) [facility] aPTT 32 28 - 38 sec Comment: Interpretive Data Heparin therapeutic range: 66.0 - 100.0 seconds. Range based on correlation with therapeutic heparin activity range of 0.3 - 0.7 Units/mL. Current interpretive data was last revised on 2023. Blood 11/27/2024 12:5 1 PM CDT 11/27/2024 1:27 PM CDT Brina Rico EXPORT SALES ASSISTANT LAB BLOOD ORDERABLES Brenda l Result Performing Organization Address [facility] de Phone Number [facility] [place] [address] * (ABNORMAL) CBC with auto differential (11/27/2024 12:51 PM CDT) [facility] WBC 8.66 3.80 - 9.90 K/cumm Hgb 13.1 11.9 - 15.5 g/dL [facility] Hct 37.5 35.6 - 45.5 % [facility] Plt 246 150 - 400 K/cumm [facility] MPV 8.2(L) 9.1 - 12.3 fL [facility] RBC 4.24 3.90 - 5.20 M/cumm [facility] MCV 88.4 81.3 - 96.4 fL [facility] MCH 30.9 27.1 - 33.3 pg [facility] MCHC 34.9 32.3 - 35.7 g/dL [facility] RDW CV 13.5 11.1 - 14.9 % [facility] RDW SD 43.8 35.7 - 48.1 fL [facility] NRBC abs 0.00 0.00 - 0.01 K/cumm [facility] Blood 11/27/2024 12:5 1 PM CDT 11/27/2024 1:32 PM CDT Brina Rico EXPORT SALES ASSISTANT LAB BLOOD ORDERABLES Brenda l Result Performing Organization Address [facility] Co de Phone Number [facility] [place] [address] * Protime-INR (11/27/2024 12:51 PM CDT) PT 12.2 9.7 - 13.0 sec INR 1.13 0.90 - 1.20 [facility] Comment: Interpretive data Oral anticoagulant therapeutic ranges: Venous thromboembolism prophylaxis or treatment: 2.0-3.0 CARDIOLOGY Standard range: 2.0-3.0 High-intensity range: 2.5-3.5 Refer to indication-specific guidelines for appropriate target ranges for prosthetic heart valve replacement. Current interpretive data was last revised on 2019. Blood 11/27/2024 12:5 1 PM CDT 11/27/2024 1:27 PM CDT Brina Rico EXPORT SALES ASSISTANT LAB BLOOD ORDERABLES Brenda l Result Performing Organization Address [facility] Co de Phone Number [facility] [place] [address] * Comprehensive metabolic panel (11/27/2024 12:51 PM CDT) Sodium 142 135 - 145 mmol/L Potassium, pl 4.3 3.3 - 4.9 mmol/L [facility] Chloride 108 97 - 110 mmol/L [facility] CO2 26 22 - 32 mmol/L [facility] Anion gap 8 2 - 15 mmol/L [facility] BUN 20 6 - 25 mg/dL [facility] Creatinine 0.89 0.60 - 1.10 mg/dL [facility] Glucose 96 70 - 199 mg/dL [facility] Comment: Interpretive Data Fasting glucose >/= 126 [...] 2022. Calcium 9.6 8.5 - 10.3 mg/dL [facility] Bilirubin, total 0.7 0.1 - 1.2 mg/dL [facility] Protein, pl 6.5 6.5 - 8.5 g/dL [facility] Albumin 4.2 3.5 - 5.0 g/dL [facility] Alk phos 54 40 - 130 Units/L [facility] ALT 23 7 - 45 Units/L [facility] AST 25 10 - 45 Units/L [facility] Blood 11/27/2024 12:5 1 PM CDT 11/27/2024 1:32 PM CDT Brina Rico NP LAB BLOOD ORDERABLES Brenda wharotn Result [facility] Department [place] [address] * (ABNORMAL) Urinalysis reflex to microscopic and culture Urine, clean voided (11/12/2024 5:27 PM CDT) Color, ur Straw Yellow Clarity, ur Clear Clear [facility] Specific gravity, ur >1.042(H) 1.003 - 1.030 [facility] pH, urine 6.5 [facility] Comment: Interpretive Data U rine pH is affected by diet, medications, systemic acid-base disturbances, and renal tubular function. pH may affect urinary stone formation. For example, urine pH below 6.0 may help reduce the tendency for calcium phosphate stones and pH greater than 6.0 may reduce the tendency for uric acid stone formation. Source: [facility] Current Interpretive Data was last revised on 2017 Protein, ur ql Trace Negative [facility] Glucose, ur ql Negative Negative [facility] Ketones, ur Negative Negative [facility] Bilirubin, ur Negative Negative [facility] Blood, ur Negative Negative [facility] Urobilinogen, ur <2.0 <2.0 mg/dL [facility] Nitrite, ur Negative Negative [facility] Leukocyte esterase, ur 1+(A) Negative [facility] UA reflex comment Reflex to microscopic UA will be performed. [facility] Urine, clean voided 11/12/2024 5:27 PM CDT 11/12/2024 5:51 PM CDT Luz Bustos NP LAB MICROBIOLOGY - GE NERAL ORDERABLES Final Result Performing Organization Address [facility] de Phone Number [facility] [place] [address] * (ABNORMAL) Urinalysis, microscopic only (11/12/2024 5:27 PM CDT) WBC, ur 6-10(A) 0 - 5 /HPF RBC, ur 0-2 0 - 2 /HPF [facility] Epithelial cells, squamous, ur 6-10(A) 0 - 5 /HPF [facility] Comment:Suggestive of contam ination. Consider recollection by clean catch. Culture Reflex Comment Reflex conditions for urine culture (WBC >10) not met. [facility] Urine, clean voided 11/12/2024 5:27 PM CDT 11/12/2024 5:51 PM CDT Luz Bustos NP LAB URINE ORDERABLES Final Result Performing Organization Address [facility]/ZIP Co de Phone Number [facility] [place] [address] * ECG 12 lead (11/12/2024 4:13 PM CDT) Ventricular Rate EKG/Min 70 BPM [facility] Atrial Rate 70 BPM [facility] PA-Interval (MSEC) 206 ms [facility] QRS-Interval (MSEC) 102 ms [facility] QT-Interval (MSEC) 428 ms [facility] QTc 462 ms [facility] P Belk 36 degrees [facility] R Belk -21 degrees [facility] T Belk 108 degrees [facility] Diagnosis Normal sinus rhythm Moderate voltage criteria for LVH, may be normal variant ( R in aVL , Miles product ) ST & T wave abnormality, consider lateral ischemia Abnormal ECG When compared with ECG of 18-OCT-2010 13:54, PREVIOUS ECG IS PRESENT Confirmed by Bety RODRIGUEZ, Hank ([id number]) on 11/13/2024 12:46:48 PM [facility] 11/12/2024 4:13 PM CDT 11/13/2024 12:46 PM CDT Luz Bustos NP ECG ORDERABLES Final Result [facility] * CT TAVR (11/12/2024 2:25 PM CDT) [...] mm x 30 mm x 30 mm [id number] Sinotubular junction: 28 mm x 27 mm Maximum ascending aorta: 36 x 34 mm Distance to RCA ostium from aortic valve annulus: 11 mm Distance to left main ostium from annulus: 13 mm Deployment angle: 23 BENGALI, 14 Cranial Right coronary sinus height: 19 [...] mm x 30 mm x 30 mm [id number] Sinotubular junction: 28 mm x 27 mm Maximum ascending aorta: 36 x 34 mm Distance to RCA ostium from aortic valve annulus: 11 mm Distance to left main ostium from annulus: 13 mm Deployment angle: 23 BENGALI, 14 Cranial Right coronary sinus height: 19 [...] signed by: Osvaldo Ace M.D. Naz Gordillo EXPORT SALES ASSISTANT IMG CT PROCEDURES Final Result * POCT creatinine (11/12/2024 1:38 PM CDT) Creatinine POC 0.9 0.6 - 1.1 mg/dL Blood 11/12/2024 1:38 PM CDT 11/12/2024 1:38 PM CDT Naz Gordillo EXPORT SALES ASSISTANT LAB POCT ORDERABLES - DE VICE Final Result [facility] Department [place] [address] from Last 3 Months Insurance [facility] Advance Directives For more information, please contact: [phone] Documents on File Type Date Recorded Patient Iron 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 Expl anation ADVANCE DIRECTIVE 12/12/2024 11:13 AM HUONG R OF OSTEOPATHY DOCTOR-MEDICAL * Full Code (Latest Code Status on File) Date Activated Date Inactivated Comments 12/09/2024 3:28 PM 01/02/2025 7:06 PM Care Teams Specimen Transporter Relationship Specialty Start Date End Date Pacheco Mejia DO [address] [facility] [address] [place] [address] PCP - General Internal Medicine 01/22/23 Justin Herron DO [address] [facility] [address] [place] [address] Referring Physician Cardiology 10/14/24 Indiana Mortensen MD [address] [facility] [id number] [place] [address] Cardiothoracic Surgery 01/02/25 Unknown, Notinfile 01/02/25 Shelton Marcelo MD [address] [facility] [id number] [place] [address] Consulting Physician Physical Medicine and Rehabilitation 01/14/25
--- OUTSIDE RECORDS SUMMARY | 2025-02-09 11:31 | XMS_ITS | Clinical Summary ---
Author Organization [facility] Address [address] [place] [address] Phone Care Team Providers Care Nascar Racer Name Role Phone Pacheco Mejia DO Primary Care Provider [phone] Justin Herron DO Unavailable [phone] Indiana Mortensen MD Unavailable Unknown, Notinfile Unavailable Unavailable Shelton Marcelo MD Unavailable Allergies Active Allergy Reactions Criticality Noted Date [...] 05/23/20 22 Active LORazepam (ATIVAN) 0.5 mg tablet Take [...] mouth daily as needed for constipation 01/03/20 Active spironolactone (ALDACTONE) 50 mg tablet Take 1 tablet (50 mg total) by mouth daily 01/03/20 25 Active apixaban (ELIQUIS) 5 mg tabletIndications :Venous Thrombosis Take 1 tablet (5 mg total) by mouth every 12 (twelve) hours 01/03/20 Active aspirin 81 mg chewable tabletIndications :prevention of thrombosis Take 1 tablet (81 mg total) by mouth daily 01/03/20 25 Active lamoTRIgine (LaMICtal) 100 mg tablet Take 1 tablet (100 mg total) by mouth nightly Active atorvastatin (LIPITOR) 20 mg tablet Take 1 tablet (20 mg total) by mouth daily 30 tablet 1 01/03/20 Active furosemide (LASIX) 20 mg tablet Take 1 tablet (20 mg total) by mouth daily for 5 days 01/03/20 Active metoprolol tartrate (LOPRESSOR) 25 mg immediate release tablet Take 0.5 tablets (12.5 mg total) by mouth 2 (two) times a day 01/03/20 Active cyanocobalamin (Vitamin B-12) 1,000 mcg tabletIndications [...] - Neuro signed off 12/15, suspect events 2/2 poor CBF during severe bradycardia similar to [...] - Neuro signed off 12/15, suspect events 2/2 poor CBF during severe bradycardia similar to [...] to the RVOT under fluro by EP 6/2: Patient lost capture with TVP causing asystole requiring transcutaneous pacing. EP adjusted TVP and again got capture. 12/15: TVP no longer capturing, EP attending to bedside and placed a temp perm pacemaker - Norridgewock scientific RV lead externalized perm pacemaker in [...] and placed a temp perm pacemaker - Norridgewock scientific RV lead externalized perm pacemaker in [...] Care Team Description 01/26/2025 Home Care Visit [address] [place] [address] Tiffany Santiago RN SN VIRTUAL OASIS DISCHARGE 01/26/2025 Home Care Visit [address] [place] [address] Jessica Carver RN SN TRIAGE ENCOUNTER 01/26/2025 Home Care Visit [address] [place] [address] Peter Hebert, PT TELEPHONE ENCOUNTER 01/22/2025 Home Care Visit [address] [place] [address] Tiffany Santiago RN TELEPHONE ENCOUNTER 01/22/2025 Telephone [facility] Cardiothoracic Surgery [address] [place] [address] 8th Floor [address] Room [address] [place] [address] Brigitte Sanchez, ALLERGY AND IMMUNOLOGY CHIEF 01/21/2025 12:00 PM CDT Home Care Visit [address] [place] [address] Tiffany Santiago RN SN HOME VISIT 01/20/2025 3:00 PM CDT Home Care Visit [address] [place] [address] Peter Hebert, PT PT INITIAL EVALUATION 01/20/2025 11:30 AM CDT Home Care Visit [address] [place] [address] April Sr OT OT INITIAL EVALUATION 01/18/2025 1:13 PM CDT - 01/18/2025 11:59 PM CDT Hospital Encounter [facility] [address] [place] [address] Discharge Disposition: Discharge to home or self care 01/18/2025 1:00 PM CDT Home Care Visit [address] [place] [address] Alana Kim, JUANITA SN OASIS START OF CARE 01/18/2025 Plan of Care Documentation [address] [address] [address] [place] [address] 01/17/2025 Home Care Visit [address] [address] [address] [place] [address] Candelaria Silverio RN TELEPHONE ENCOUNTER 01/15/2025 Telephone [facility] Cardiology [address] [facility] 8th [place] [address] [place] [address] Shola Cha MD 01/14/2025 Telephone [facility] [address] [facility] [address] [place] [address] Alba Rodriguez, RN 01/14/2025 Telephone [facility] [address] [place] [address] Marian Crowell RN 01/14/2025 Travel 01/14/2025 Telephone [facility] [address] [facility] [address] [place] [address] Alba Rodriguez, RN 01/14/2025 Telephone [facility] [address] [facility] [address] [place] [address] Alba Rodriguez, RN 01/14/2025 Telephone [facility] [address] [facility] [address] [place] [address] Alba Rodriguez, RN 01/14/2025 Telephone [facility] [address] [facility] [address] [place] [address] Alba Rodriguez, RN 01/13/2025 Telephone [facility] [address] [facility] [address] [place] [address] Alba Rodriguez, RN 01/13/2025 Telephone [facility] [address] [place] [address] [address] [place] [address] Alba Rodriguez, RN 01/12/2025 Telephone [facility] [address] [place] [address] [address] [place] [address] Alba Rodriguez, RN 01/12/2025 Orders Only [facility] [phone] Unknown, Notinfile 01/12/2025 Telephone [facility] [address] [place] [address] [address] [place] [address] Alba Rodriguez, RN 01/12/2025 Telephone [facility] [address] [place] [address] [address] [place] [address] Alba Rodriguez, RN 01/08/2025 Orders Only [facility] [phone] Unknown, Notinfile 01/08/2025 Telephone [facility] Cardiology [address] [facility] 8th [place] [address] [place] [address] Brigitte Sanchez, ALLERGY AND IMMUNOLOGY CHIEF 01/07/2025 1:10 PM CDT - 01/07/2025 11:59 PM CDT Hospital Encounter [facility] [address] [place] [address] S/P AVR (aortic valve replacement) Discharge Disposition: Discharge to home or self care 01/07/2025 8:30 AM CDT Ancillary Procedure [facility] Cardiology [address] [facility] [address] [place] [address] Complete heart block (HCC) [I44.2] (Primary Dx); Fitting or adjustment of cardiac pacemaker 01/05/2025 Orders Only [facility] [phone] Unknown, Notinfile 01/02/2025 Orders Only [facility] Cardiothoracic Surgery [address] [facility] 8th Floor [phone] [place] [address] Naz Gordillo NP Status post cardiac surgery (Primary Dx) 12/31/2024 12:19 PM CDT Anesthesia Event [facility] Electrophysiology Lab [address] [place] [address] David Canseco MD Dippolito, Jenny Irene, NP 12/31/2024 12:05 PM CDT - 12/31/2024 3:05 PM CDT Surgery [facility] Electrophysiology Lab [address] [place] [address] Shola Cha MD IMPLANT DUAL CHAMBER PPM SYSTEM W/ DUAL ELECTRODES (GEN AND LEADS, NEW OR REPLACE) [address] 12/29/2024 Telephone [facility] Cardiology [address] [facility] 8th [place] [address] [place] [address] Marleny Amaral 12/29/2024 Orders Only [facility] Cardiology [address] [facility] 8th [place] [address] [place] [address] Shala Oliva NP Fitting or adjustment of cardiac pacemaker (Primary Dx) 12/25/2024 2:52 PM CDT - 12/25/2024 11:59 PM CDT Hospital Encounter [facility] Radiology [address] [place] [address] Discharge Disposition: Discharge to home or self care 12/22/2024 8:40 AM CDT Ancillary Procedure [facility] Vascular Lab IP [address] [facility] [address] [place] [address] 12/19/2024 8:35 AM CDT Ancillary Procedure [facility] Vascular Lab IP [address] [facility] [address] [place] [address] 12/19/2024 8:30 AM CDT Ancillary Procedure [facility] Vascular Lab IP [address] [facility] [address] [place] [address] 12/09/2024 7:00 AM CDT - 12/09/2024 2:55 PM CDT Surgery [facility] Operating Room [address] [place] [address] Indiana Mortensen MD REPLACEMENT AORTIC VALVE WITH ROOT ENLARGEMENT KONNO 12/09/2024 6:57 AM CDT Anesthesia Event [facility] Operating Room [address] [place] [address] Deana Cruz MD Dolnick, Karen Leigh, NP 12/09/2024 6:05 AM CDT Ancillary Procedure [facility] Operating Room [address] [place] [address] Pasquale Dela Cruz MD 12/09/2024 5:03 AM CDT - 01/02/2025 3:01 PM CDT Hospital Encounter [address] [address] Indiana Mortensen MD Complete heart block (HCC) (Primary Dx); Aortic stenosis, severe; Single vessel coronary artery disease; Toxic metabolic encephalopathy; Bradycardia; Heart valve disease Discharge Disposition: Discharge to an Rehab facility 12/01/2024 Telephone [facility] Cardiology [address] [place] [address] Advanced Medicine 8th [place] [address] [place] [address] Brigitte Sanchez, IRMA 12/01/2024 Telephone [facility] Cardiothoracic Surgery [address] [place] [address] Advanced Medicine 8th Floor [address] Room [address] [place] [address] Sigrid Zepeda RMA 11/27/2024 12:00 PM CDT Pre-Admission Testing [facility] for Preoperative Assessment and Planning [place] [facility]) [address] [place] [address] Preop testing; Aortic valve stenosis, etiology of cardiac valve disease unspecified 11/14/2024 Documentation [facility] Cardiothoracic Surgery [address] [place] [address] Advanced Medicine 8th Floor [address] Room [address] [address] Erika Valera NP 11/13/2024 Orders Only [facility] Anesthesia 1 [facility] [place] [address] Brina Rico NP Preop testing (Primary Dx); Aortic valve stenosis, etiology of cardiac valve disease unspecified 11/13/2024 Telephone [facility] Cardiothoracic Surgery [address] [facility] 8th Floor [address] Room [address] [address] Naz Gordillo NP 11/12/2024 3:00 PM CDT Pre-Admission Testing [facility] for Preoperative Assessment and Planning [facility] ([facility]) [address] [place] [address] Preoperative testing (Primary Dx); Easy bruising 11/12/2024 1:19 PM CDT - 11/12/2024 11:59 PM CDT Hospital Encounter [facility] Radiology [facility] ([facility]) [address] [place] [address] Aortic stenosis, severe Discharge Disposition: Discharge to home or self care from Last 3 Months Immunizations Immunization Administration [...] CYST EXCISION Left REPLACEMENT TOTAL KNEE Left CENTRAL LINE PLACEMENT > 5 YEARS 12/30/2024 N/A CARDIAC ELECTROPHYSIOLOGY PROCEDURE 12/31/2024 N/A Procedure: IMPLANT DUAL CHAMBER PPM SYSTEM W/ DUAL ELECTRODES (GEN AND LEADS, NEW OR REPLACE) 28063; Surgeon: Shola Cha MD; Location: [facility] EP [facility]; Service: Cardiovascular; Laterality: N/A; Medical devices from this surgery are in the Medical Devices section. Medical History Medical History Date Comments Anemia [...] materials from doctor or pharmacy Never 01/26/2025 [facility] Utilities Answer Date Recorded In the past 12 months has th e [employer], gas, oil, or water [employer] threatened to shut off services in your [...] often do you attend chur ch or mandaeism services? Never 12/22/2024 Do you belong to any clubs o r organizations such as caodaism groups, unions, fraternal or athletic groups, or [...] any time in the past [address] [facility], were you homeless or living in a fdc (including now)? No 12/22/2024 Personal Safety Answer Date Recorded Have you ever been in or are you currently in a harmful physical or emotional relationship or is someone making you feel afraid or unsafe? Denies 12/09/2024 Comments No Sex and Gender Information Value Date Recorded Sex Assigned at Not on file Legal Sex Female 3:02 PM MILL SET UP Gender Identity Female 01/25/2023 3:47 PM CDT [...] 01/07/2025 8:23 AM CDT Plan of Treatment Health Maintenance Due Date Last Done Comments Breast Cancer Screening-Mammogram 1962 Cervical Cancer Screening 1962 Colon Cancer Screening-Colonoscopy 1962 Depression Screening 1962 Hepatitis C Screening 1962 Hepatitis B Screening 1980 Regular Well Visit/Exam 18-64 1980 Zoster Vaccine (1 of 2) 2012 Covid-19 Vaccine (2023-2 5 season) 2024 07/10/2023, 05/13/2021, 10/14/2020, Additional history exists Influenza Vaccine (#1) 2025 DTaP/Tdap/Td Vaccine (2 - Td or Tdap) 01/23/2034 01/24/2024 Pneumococcal vaccine <65 Completed 01/24/2024, 04/16 Medical Devices Implanted Type Area Wan Support Specialist Device Identifier Shelf Expiration Date Model / Serial / Lot Norridgewock Scientific Nikolai Lead [id number] Endocardial Pacing Mr Is-1 Bipolar Connection 7841-12/16/2024 Implanted:2024 (Quantity not on file) Lead Right: Ventricle 04/29/2026 / [id number] / Medtronic Inc Capsurefix Novus 6.2fr 2mm 52cm Bipolar Screw In Implantable Latex Free 5076-52 - [id number] - [id number] Implanted:Qty: 1 on 12/31/2024 by Shola Cha MD at [facility] Lead Right: Ventricle Medtronic Inc 10/09/2026 5076-52 / [id number] 12V / [id number] 12V Medtronic Inc Capsurefix Novus 6.2fr 2mm 45cm Bipolar Screw In Implantable 5076-45 - [id number] - [id number] Implanted:Qty: 1 on 12/31/2024 by Shola Cha MD at [facility] Lead Right: Atria Medtronic Inc 10/10/2026 5076-45 / [id number] 73V / [id number] 73V Medtronic Inc Tyrx Absorbable Antibacterial Envelope Med 2.7x2.5in [id number] - [id number] - [id number] Implanted:Qty: 1 on 12/31/2024 by Shola Cha MD at [facility] Other - see comments Right: Chest Wall Medtronic Inc 09/25/2025 [id number] / [id number] / [id number] Description:Tyrex Medtronic Inc [place] S Mri Surescan 50.8x46.6mm 2 Chamber 7.4mm Pacemaker 22.5gm [id number] - [id number] - [id number] Implanted:Qty: 1 on 12/31/2024 by Shola Cha MD at [facility] Pacemaker Right: Chest Wall Medtronic Inc 04/28/2026 [id number] / [id number] 65G / [id number] 65G [facility] Nikolai Patch Cardiovascular 14x8cm Samantha-Guard [employer] [id number] - [id number] - [id number] Implanted:Qty: 1 on 12/09/2024 by Indiana Mortensen MD at [facility] Chest Prince [employer] Nikolai [id number] 05/27/2026 [id number] / [id number] / [id number] Vilchis [employer] Inspiris Resilia Leaflet Sewing Ring 27mm Valve Aortic Bovine [id number] - [id number] - [id number] Implanted:Qty: 1 on 12/09/2024 by Indiana Mortensen MD at [facility] Heart Vilchis Lif[employer]iences [id number] 08/27/2029 [id number] / [id number] / Arthrex Inc Device Closure Fibertape Sternal Cerclage Blunt Needle Ar-7289 - [id number] Implanted:Qty: 1 on 12/09/2024 by Indiana Mortensen MD at [facility] N/A: Sternum Arthrex Inc 05/15/2029 [id number]-[id number] / / [id number] Esme Biomet Inc Plate Bone Low Profile 6 Hole O Shape Sternum Ti 115.104.06 - [id number] Implanted:Qty: 1 on 12/09/2024 by Gordy Bourgeois MD at [facility] N/A: Sternum Esme [employer] Inc 115.104 .06 / / Esme [employer] Inc Plate Bone Low Profile 6 Hole H Shape Sternum Ti 115.102.06 - [id number] Implanted:Qty: 2 on 12/09/2024 by Indiana Mortensen MD at [facility] N/A: Sternum Esme [employer] Inc 115.102 .06 / / Esme Biomet Inc Screw Bone Slf Drl Full Thread Locking 3.5x16mm Ti 100.035.16 - [id number] Implanted:Qty: 8 on 12/09/2024 by Indiana Mortensen MD at [facility] N/A: Sternum Esme [employer] Inc 100.035 .16 / / Esme [employer] Inc Screw Bone Slf Drl Full Thread Locking 3.5x18mm Ti 100.035.18 - [id number] Implanted:Qty: 4 on 12/09/2024 by Gordy Bourgeois MD at [facility] N/A: Sternum Esme [employer] Inc 100.035 .18 / / Esme [employer] Inc Screw Bone Slf Drl Full Thread Locking 3.5x20mm Ti 100.035.20 - [id number] Implanted:Qty: 6 on 12/09/2024 by Gordy Bourgeois MD at [facility] N/A: Sternum Esme [employer] Inc 100.035 .20 [...] 4:25 PM CDT Complete heart block (HCC) KS AN 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 Routine 12/31/2024 12:52 PM [...] VIDEO IP Routine 12/25/2024 3:27 PM CDT SUBGRADE ROLLER OPERATOR EVALUATE AND TREAT VIDEOFLUOROSCOPIC SWALLOW STUDY Routine [...] BLOOD CULTURE Routine 12/21/2024 11:20 AM CDT SUBGRADE ROLLER OPERATOR EVALUATE AND TREAT FIBEROPTIC ENDOSCOPIC SWALLOW Routine [...] CHEMISTRIES, ARTERIAL Routine 12/14/2024 2:44 AM CDT KS INSJ NON-TUNNELED CENTRAL VENOUS CATH AGE 5 YR/> Routine 12/14/2024 1:52 AM CDT Bradycardia KS INSJ NON-TUNNELED CENTRAL VENOUS CATH AGE 5 YR/> Routine 12/14/2024 1:45 AM CDT Bradycardia KS ARTL CATHJ/CANNULJ MNTR/TRANSFUSION SPX PRQ Routine 12/14/2024 [...] CDT EEG Routine 12/13/2024 2:04 PM CDT SUBGRADE ROLLER OPERATOR EVALUATE AND TREAT Routine 1:42 PM CDT [...] HEPARIN/ACT CPB Routine 12/09/2024 9:35 AM CDT KS AN 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 Routine 12/09/2024 8:47 AM [...] Mejia DO LAB BLOOD ORDERABLES Final Result [facility] Department [place] [address] * eGFR (01/18/2025 1:13 PM CDT) eGFR [...] 1:13 PM CDT 01/18/2025 3:14 PM CDT Pacheco Mejia DO LAB BLOOD ORDERABLES Final Result [facility] [address] [facility] Department [place] [address] * (ABNORMAL) Differential, auto (01/18/2025 1:13 PM CDT) Neutrophil abs 6.51(H) 1.50 - 6.50 K/cumm Imm gran abs 0.04 0.00 - 0.10 K/cumm [facility] Lymphocyte abs 0.92 0.80 - 3.30 K/cumm [facility] Monocyte abs 0.48 0.20 - 0.80 K/cumm [facility] Eosinophil abs 0.33 0.00 - 0.50 K/cumm [facility] Basophil abs 0.08 0.00 - 0.10 K/cumm [facility] Neutrophil pct 77.9 % [facility] Comment: Interpretive Data Percent cell count reference ranges are not reported, since discordance with absolute values may lead to misinterpretation of CBC data. Current Interpretive Data was last revised on 2017. Imm gran pct 0.5 % [facility] Comment: Interpretive Data Percent cell count reference ranges are not reported, since discordance with absolute values may lead to misinterpretation of CBC data. Current Interpretive Data was last revised on 2017. Lymphocyte pct 11.0 % [facility] Comment: Interpretive Data Percent cell count reference ranges are not reported, since discordance with absolute values may lead to misinterpretation of CBC data. Current Interpretive Data was last revised on 2017. Monocyte pct 5.7 % [facility] Comment: Interpretive Data Percent cell count reference ranges are not reported, since discordance with absolute values may lead to misinterpretation of CBC data. Current Interpretive Data was last revised on 2017. Eosinophil pct 3.9 % [facility] Comment: Interpretive Data Percent cell count reference ranges are not reported, since discordance with absolute values may lead to misinterpretation of CBC data. Current Interpretive Data was last revised on 2017. Basophil pct 1.0 % [facility] Comment: Interpretive Data Percent cell count reference ranges are not reported, since discordance with absolute values may lead to misinterpretation of CBC data. Current Interpretive Data was last revised on 2017. Blood 01/18/2025 1:13 PM CDT 01/18/2025 2:54 PM CDT Pacheco Mejia LAB BLOOD ORDERABLES Final Result Performing Organization Address [facility]/ZIP Co de Phone Number [facility] [place] [address] * Basic metabolic panel without glucose (01/18/2025 1:13 PM CDT) Pathologist [facility] Sodium 139 135 - 145 mmol/L Potassium, pl 4.6 3.3 - 4.9 mmol/L [facility] Chloride 105 97 - 110 mmol/L [facility] CO2 25 22 - 32 mmol/L [facility] Anion gap 9 2 - 15 mmol/L [facility] BUN 22 6 - 25 mg/dL [facility] Creatinine 0.89 0.60 - 1.10 mg/dL [facility] Calcium 9.3 8.5 - 10.3 mg/dL [facility] Blood 01/18/2025 1:13 PM CDT 01/18/2025 2:54 PM CDT Pacheco Mejia DO LAB BLOOD ORDERABLES Final Result Performing Organization Address [facility]/ZIP Co de Phone Number [facility] Department [place] [address] * (ABNORMAL) CBC with auto differential (01/18/2025 1:13 PM CDT) Pathologist [facility] WBC 8.36 3.80 - 9.90 K/cumm Hgb 11.2(L) 11.9 - 15.5 g/dL [facility] Hct 35.2(L) 35.6 - 45.5 % [facility] Plt 267 150 - 400 K/cumm [facility] MPV 9.0(L) 9.1 - 12.3 fL [facility] RBC 4.04 3.90 - 5.20 M/cumm [facility] MCV 87.1 81.3 - 96.4 fL [facility] MCH 27.7 27.1 - 33.3 pg [facility] MCHC 31.8(L) 32.3 - 35.7 g/dL [facility] RDW CV 15.8(H) 11.1 - 14.9 % [facility] RDW SD 50.8(H) 35.7 - 48.1 fL [facility] NRBC abs 0.00 0.00 - 0.01 K/cumm [facility] Blood 01/18/2025 1:13 PM CDT 01/18/2025 2:54 PM CDT Pacheco Mejia DO LAB BLOOD ORDERABLES Final Result [facility] Department [place] [address] * (ABNORMAL) CS GLUCOSE (01/12/2025 10:04 AM CDT) [facility] Glucose 57(L) 70 - 199 mg/dL [facility] Comment: Interpretive Data Fasting glucose >/= [...] was last revised 2022. Testing performed by: [facility], [address] [facility], [place]., [address] Blood 01/12/2025 10:0 4 AM CDT 01/12/2025 1:57 PM CDT us Notinfile Unknown LAB BLOOD ORDERABLES Final Res ult Performing Organization Address City/[facility] Co de Phone Number [facility] Department [place] [address] * (ABNORMAL) eGFR (01/12/2025 10:04 AM CDT) eGFR 53(L) >=60 mL/min/1. 73 m2 [facility] Comment: Interpretive Data Reference Interval Normal [...] was last reviewed 2021. Testing performed by: [facility], [address] [facility], [place]., [address] Blood 01/12/2025 10:0 4 AM CDT 01/12/2025 2:11 PM CDT us Notinfile Unknown LAB BLOOD ORDERABLES Final Res ult Performing Organization Address [facility]/ZIP Co de Phone Number [facility] Department [place] [address] * (ABNORMAL) Differential, auto (01/12/2025 10:04 AM CDT) Neutrophil abs 9.30(H) 1.50 - 6.50 K/cumm [facility] Comment:Testing performed by : [facility], [address] [place]., [address] Imm gran abs 0.05 0.00 - 0.10 K/cumm [facility] Comment:Testing performed by : [facility], [address] [place]., [address] Lymphocyte abs 1.08 0.80 - 3.30 K/cumm [facility] Comment:Testing performed by : [facility], [address] [place]., [address] Monocyte abs 0.93(H) 0.20 - 0.80 K/cumm [facility] Comment:Testing performed by : [facility], [address] [place]., [address] Eosinophil abs 0.69(H) 0.00 - 0.50 K/cumm [facility] Comment:Testing performed by : [facility], [address] [place]., [address] Basophil abs 0.12(H) 0.00 - 0.10 K/cumm [facility] Comment:Testing performed by : [facility] [facility], [address] [place] [address] Neutrophil pct 76.4 % [facility] Comment: Interpretive Data Percent cell count reference ranges are not reported, since discordance with absolute values may lead to misinterpretation of CBC data. Current Interpretive Data was last revised on 2017. Testing performed by: [facility], [address] [place]., [address] Imm gran pct 0.4 % [facility] Comment: Interpretive Data Percent cell count reference ranges are not reported, since discordance with absolute values may lead to misinterpretation of CBC data. Current Interpretive Data was last revised on 2017. Testing performed by: [facility], [address] [place]., [address] Lymphocyte pct 8.9 % C[facility]ER [facility] Comment: Interpretive Data Percent cell count reference ranges are not reported, since discordance with absolute values may lead to misinterpretation of CBC data. Current Interpretive Data was last revised on 2017. Testing performed by: [facility], [address] [place]., [address] Monocyte pct 7.6 % ALEX MCKEON Comment: Interpretive Data Percent cell count reference ranges are not reported, since discordance with absolute values may lead to misinterpretation of CBC data. Current Interpretive Data was last revised on 2017. Testing performed by: [facility], [address] [place] [address]., [address] Eosinophil pct 5.7 % ALEX MCKEON Comment: Interpretive Data Percent cell count reference ranges are not reported, since discordance with absolute values may lead to misinterpretation of CBC data. Current Interpretive Data was last revised on 2017. Testing performed by: [facility], [address] [place] [address] Basophil pct 1.0 % [facility] Comment: Interpretive Data Percent cell count reference ranges are not reported, since discordance with absolute values may lead to misinterpretation of CBC data. Current Interpretive Data was last revised on 2017. Testing performed by: [facility], [address] [place] [address]., [address] Blood 01/12/2025 10:0 4 AM CDT 01/12/2025 1:57 PM CDT us Notinfile Unknown LAB BLOOD ORDERABLES Final Res ult ALEX MCKEON One [facility] Department [place] [address] * (ABNORMAL) Comprehensive metabolic panel, without glucose (Outreach) (01/12/2025 10:04 AM CDT) Sodium 142 135 - 145 mmol/L ALEX DA SILVA Comment:Testing performed by : [facility], 1 [facility], [address] Potassium, pl 4.3 3.3 - 4.9 mmol/L [facility] Comment:Testing performed by : [facility], 1 [facility], [address] Chloride 102 97 - 110 mmol/L [facility] Comment:Testing performed by : [facility], 1 [facility], [address] CO2 27 22 - 32 mmol/L [facility] Comment:Testing performed by : [facility], 1 [facility], [address] Anion gap 13 2 - 15 mmol/L [facility] Comment:Testing performed by : [facility], 1 [facility], [address] BUN 24 6 - 25 mg/dL [facility] Comment:Testing performed by : [facility], 1 [facility], [address] Creatinine 1.16(H) 0.60 - 1.10 mg/dL [facility] Comment:Testing performed by : [facility], 1 [facility], [address] Calcium 10.1 8.5 - 10.3 mg/dL [facility] Comment:Testing performed by : [facility], 1 [facility], [address] Protein, pl 7.3 6.5 - 8.5 g/dL [facility] Comment:Testing performed by : [facility], 1 [facility], [address] Albumin 4.6 3.5 - 5.0 g/dL [facility] Comment:Testing performed by : [facility], 1 [facility], [address] Bilirubin, total 0.5 0.1 - 1.2 mg/dL [facility] Comment:Testing performed by : [facility], 1 [facility], [address] Alk phos 86 40 - 130 Units/L [facility] Comment:Testing performed by : [facility], 1 [facility], [address] AST 28 10 - 45 Units/L [facility] Comment:Testing performed by : [facility], 1 [facility], [address] ALT 25 7 - 45 Units/L [facility] Comment:Testing performed by : [facility], 1 [facility], [address] Blood 01/12/2025 10:0 4 AM CDT 01/12/2025 1:57 PM CDT us Notinfile Unknown LAB BLOOD ORDERABLES Final Res ult [facility] One [facility] Department [place] [address] * (ABNORMAL) CBC with auto differential (01/12/2025 10:04 AM CDT) WBC 12.17(H) 3.80 - 9.90 K/cumm [facility] Comment:Testing performed by : [facility], 1 [facility], [address] Hgb 11.7(L) 11.9 - 15.5 g/dL [facility] Comment:Testing performed by : [facility], 1 [facility], [address] Hct 38.1 35.6 - 45.5 % [facility] Comment:Testing performed by : [facility], 1 [facility], [address] Plt 345 150 - 400 K/cumm [facility] Comment:Testing performed by : [facility], 1 [facility], [address] MPV 9.0(L) 9.1 - 12.3 fL [facility] Comment:Testing performed by : [facility], 1 [facility], [address] RBC 4.29 3.90 - 5.20 M/cumm [facility] Comment:Testing performed by : [facility], 1 [facility], [address] MCV 88.8 81.3 - 96.4 fL [facility] Comment:Testing performed by : [facility], 1 [facility], [address] MCH 27.3 27.1 - 33.3 pg [facility] Comment:Testing performed by : [facility], 1 [facility], [address] MCHC 30.7(L) 32.3 - 35.7 g/dL [facility] Comment:Testing performed by : [facility], 1 [facility], [address] RDW CV 15.9(H) 11.1 - 14.9 % [facility] Comment:Testing performed by : [facility], 1 [facility], [address] RDW SD 51.7(H) 35.7 - 48.1 fL [facility] Comment:Testing performed by : [facility], 1 [facility], [address] NRBC abs 0.00 0.00 - 0.01 K/cumm [facility] Comment:Testing performed by : [facility], 1 [facility], [address] Blood 01/12/2025 10:0 4 AM CDT 01/12/2025 1:57 PM CDT us Notinfile Unknown LAB BLOOD ORDERABLES Final Res ult [facility] One [facility] Department [place] [address] * (ABNORMAL) CS GLUCOSE (01/08/2025 12:20 PM CDT) Glucose 68(L) 70 - 199 mg/dL [facility] Comment: Interpretive Data Fasting glucose [...] was last revised 2022. Testing performed by: [facility], 1 [facility], [place]., [address] Blood 01/08/2025 12:2 0 PM CDT 01/08/2025 1:36 PM CDT us Notinfile Unknown LAB BLOOD ORDERABLES Final Res ult [facility] One [facility] Department [place] [address] * (ABNORMAL) eGFR (01/08/2025 12:20 PM CDT) eGFR 59(L) >=60 mL/min/1. 73 m2 [facility] Comment: Interpretive Data Reference Interval Normal >/= [...] was last reviewed 2021. Testing performed by: [facility], [address] [place] [address] Blood 01/08/2025 12:2 0 PM CDT 01/08/2025 2:02 PM CDT us Notinfile Unknown LAB BLOOD ORDERABLES Final Res ult [facility] One [facility] Department [place] [address] * (ABNORMAL) Differential, auto (01/08/2025 12:20 PM CDT) Neutrophil abs 6.42 1.50 - 6.50 K/cumm [facility] Comment:Testing performed by : [facility], [address] [place] [address]., [address] Imm gran abs 0.03 0.00 - 0.10 K/cumm [facility] Comment:Testing performed by : [facility], [address] [place]., [address] Lymphocyte abs 1.12 0.80 - 3.30 K/cumm [facility] Comment:Testing performed by : [facility], [address] [place] [address]., [address] Monocyte abs 0.59 0.20 - 0.80 K/cumm [facility] Comment:Testing performed by : [facility], [address] [place] [address]., [address] Eosinophil abs 0.60(H) 0.00 - 0.50 K/cumm [facility] Comment:Testing performed by : [facility], [address] [place] [address] Basophil abs 0.09 0.00 - 0.10 K/cumm [facility] Comment:Testing performed by : [facility], [address] [place] [address] Neutrophil pct 72.5 % [facility] Comment: Interpretive Data Percent cell count reference ranges are not reported, since discordance with absolute values may lead to misinterpretation of CBC data. Current Interpretive Data was last revised on 2017. Testing performed by: [facility], [address] [place] [address] Imm gran pct 0.3 % [facility] Comment: Interpretive Data Percent cell count reference ranges are not reported, since discordance with absolute values may lead to misinterpretation of CBC data. Current Interpretive Data was last revised on 2017. Testing performed by: [facility], [address] [place] [address] Lymphocyte pct 12.7 % [facility] Comment: Interpretive Data Percent cell count reference ranges are not reported, since discordance with absolute values may lead to misinterpretation of CBC data. Current Interpretive Data was last revised on 2017. Testing performed by: [facility], [address] [place] [address] Monocyte pct 6.7 % [facility] Comment: Interpretive Data Percent cell count reference ranges are not reported, since discordance with absolute values may lead to misinterpretation of CBC data. Current Interpretive Data was last revised on 2017. Testing performed by: [facility], [address] [place] [address] Eosinophil pct 6.8 % [facility] Comment: Interpretive Data Percent cell count reference ranges are not reported, since discordance with absolute values may lead to misinterpretation of CBC data. Current Interpretive Data was last revised on 2017. Testing performed by: [facility], [address] [place] [address] Basophil pct 1.0 % [facility] Comment: Interpretive Data Percent cell count reference ranges are not reported, since discordance with absolute values may lead to misinterpretation of CBC data. Current Interpretive Data was last revised on 2017. Testing performed by: [facility], [address] [place] [address] Blood 01/08/2025 12:2 0 PM CDT 01/08/2025 1:36 PM CDT us Notinfile Unknown LAB BLOOD ORDERABLES Final Res ult [facility] One [facility] Department [place] [address] * Comprehensive metabolic panel, without glucose (Outreach) (01/08/2025 12:20 PM CDT) Sodium 141 135 - 145 mmol/L [facility] Comment:Testing performed by : [facility], 1 [facility], [address] Potassium, pl 4.3 3.3 - 4.9 mmol/L [facility] Comment:Testing performed by : [facility], 1 [facility], [address] Chloride 102 97 - 110 mmol/L C[facility]ER BJ Comment:Testing performed by : [facility], 1 [facility], [address] CO2 26 22 - 32 mmol/L [facility] Comment:Testing performed by : [facility], [address] [place] [address] Anion gap 13 2 - 15 mmol/L [facility] Comment:Testing performed by : [facility], 1 [facility], [address] BUN 22 6 - 25 mg/dL [facility] Comment:Testing performed by : [facility], 1 [facility], [address] Creatinine 1.06 0.60 - 1.10 mg/dL [facility] Comment:Testing performed by : [facility], 1 [facility], [address] Calcium 9.6 8.5 - 10.3 mg/dL [facility] Comment:Testing performed by : [facility], 1 [facility], [address] Protein, pl 6.5 6.5 - 8.5 g/dL [facility] Comment:Testing performed by : [facility], 1 [facility], [address] Albumin 4.0 3.5 - 5.0 g/dL [facility] Comment:Testing performed by : [facility], 1 [facility], [address] Bilirubin, total 0.4 0.1 - 1.2 mg/dL [facility] Comment:Testing performed by : [facility], 1 [facility], [address] Alk phos 82 40 - 130 Units/L [facility] Comment:Testing performed by : [facility], 1 [facility], [address] AST 25 10 - 45 Units/L [facility] Comment:Testing performed by : [facility], [address] [place] [address], [address] ALT 34 7 - 45 Units/L [facility] Comment:Testing performed by : [facility], [address] [place] [address], [address] Blood 01/08/2025 12:2 0 PM CDT 01/08/2025 1:36 PM CDT us Notinfile Unknown LAB BLOOD ORDERABLES Final Res ult [facility] One [facility] Department [place] [address] * (ABNORMAL) CBC with auto differential (01/08/2025 12:20 PM CDT) WBC 8.85 3.80 - 9.90 K/cumm [facility] Comment:Testing performed by : [facility], 1 [facility], [address] Hgb 9.3(L) 11.9 - 15.5 g/dL [facility]ER BJ Comment:Testing performed by : [facility], 1 [facility], [address] Hct 30.7(L) 35.6 - 45.5 % [facility]ER [facility]J Comment:Testing performed by : [facility], 1 [facility], [address] Plt 255 150 - 400 K/cumm [facility] Comment:Testing performed by : [facility], 1 [facility], [address] MPV 8.9(L) 9.1 - 12.3 fL [facility]ER [facility]J Comment:Testing performed by : [facility], 1 [facility], [address] RBC 3.44(L) 3.90 - 5.20 M/cumm [facility] Comment:Testing performed by : [facility], 1 [facility], [address] MCV 89.2 81.3 - 96.4 fL [facility] Comment:Testing performed by : [facility], 1 [facility], [address] MCH 27.0(L) 27.1 - 33.3 pg [facility] Comment:Testing performed by : [facility], 1 [facility], [address] MCHC 30.3(L) 32.3 - 35.7 g/dL [facility] Comment:Testing performed by : [facility], 1 [facility], [address] RDW CV 15.5(H) 11.1 - 14.9 % [facility] Comment:Testing performed by : [facility], 1 [facility], [address] RDW SD 49.9(H) 35.7 - 48.1 fL [facility] Comment:Testing performed by : [facility], [address] [place] [address] NRBC abs 0.00 0.00 - 0.01 K/cumm [facility] Comment:Testing performed by : [facility], [address] [place] [address] Blood 01/08/2025 12:2 0 PM CDT 01/08/2025 1:36 PM CDT us Notinfile Unknown LAB BLOOD ORDERABLES Final Res ult [facility] One [facility] Department [place] [address] * CTA Chest Abdomen Pelvis (01/07/2025 3:43 [...] yrs. Magnet rate 85 bpm Presenting Rhythm (KS) Atrial Sensing-Ventricular Sensing (-VS) --- Underlying rhythm: NSR 70s Arrhythmic events (AE) No new arrhythmic events in monitoring period Anticoagulation (AC) Patient prescribed Apixaban (Eliquis) Patient on anticoagulant therapy Procedure Note Chan Reece MD - 01/08/2025 Interpretation Summary: Battery and Leads (BL) Normal parameters noted on battery and lead(s) --- battery longevityestimate: 14.3 yrs. Magnet rate 85 bpm Presenting Rhythm (KS) Atrial Sensing-Ventricular Sensing (-VS) --- Underlying rhythm: [id number] Arrhythmic events (AE) No new arrhythmic events in monitoring period Anticoagulation (AC) Patient prescribed Apixaban (Eliquis) Patient on anticoagulant therapy Shala Oliva NP CV [employer]ARDI[employer] SERVICES PROCEDUR ES Final Result * CS GLUCOSE (01/05/2025 10:33 AM CDT) Glucose 92 70 - 199 mg/dL [facility] Comment: Interpretive Data Fasting glucose [...] was last revised 2022. Testing performed by: [facility], 1 [place] [address] Blood 01/05/2025 10:3 3 AM CDT 01/05/2025 2:29 PM CDT us Notinfile Unknown LAB BLOOD ORDERABLES Final Res ult Performing Organization Address City/[facility]/ZIP Co de Phone Number [facility] One [facility] Department [place] [address] * (ABNORMAL) eGFR (01/05/2025 10:33 AM CDT) eGFR 59(L) >=60 mL/min/1. 73 m2 [facility] Comment: Interpretive Data Reference Interval Normal >/= [...] was last reviewed 2021. Testing performed by: [facility], [address] [place] [address] Blood 01/05/2025 10:3 3 AM CDT 01/05/2025 2:46 PM CDT us Notinfile Unknown LAB BLOOD ORDERABLES Final Res ult Performing Organization Address City/[facility]/ZIP Co de Phone Number [facility] One [facility] Department [place] [address] * (ABNORMAL) Differential, auto (01/05/2025 10:33 AM CDT) Neutrophil abs 4.51 1.50 - 6.50 K/cumm [facility] Comment:Testing performed by : [facility], [address] [place] [address] Imm gran abs 0.03 0.00 - 0.10 K/cumm [facility]ER [facility]J Comment:Testing performed by : [facility], 1 [facility], [address] Lymphocyte abs 1.13 0.80 - 3.30 K/cumm [facility] Comment:Testing performed by : [facility], 1 [facility], [address] Monocyte abs 0.60 0.20 - 0.80 K/cumm [facility] Comment:Testing performed by : [facility], [address] [place] [address]., [address] Eosinophil abs 0.53(H) 0.00 - 0.50 K/cumm [facility] Comment:Testing performed by : [facility], [address] [place] [address]., [address] Basophil abs 0.08 0.00 - 0.10 K/cumm [facility] Comment:Testing performed by : [facility], [address] [place] [address]., [address] Neutrophil pct 65.6 % [facility] Comment: Interpretive Data Percent cell count reference ranges are not reported, since discordance with absolute values may lead to misinterpretation of CBC data. Current Interpretive Data was last revised on 2017. Testing performed by: [facility], [address] [place] [address] Imm gran pct 0.4 % [facility] Comment: Interpretive Data Percent cell count reference ranges are not reported, since discordance with absolute values may lead to misinterpretation of CBC data. Current Interpretive Data was last revised on 2017. Testing performed by: [facility], [address] [place] [address], [place]., [address] Lymphocyte pct 16.4 % [facility]LEX [facility] Comment: Interpretive Data Percent cell count reference ranges are not reported, since discordance with absolute values may lead to misinterpretation of CBC data. Current Interpretive Data was last revised on 2017. Testing performed by: [facility], [address] [place] [address] Monocyte pct 8.7 % [facility] Comment: Interpretive Data Percent cell count reference ranges are not reported, since discordance with absolute values may lead to misinterpretation of CBC data. Current Interpretive Data was last revised on 2017. Testing performed by: [facility], [address] [place] [address] Eosinophil pct 7.7 % [facility] Comment: Interpretive Data Percent cell count reference ranges are not reported, since discordance with absolute values may lead to misinterpretation of CBC data. Current Interpretive Data was last revised on 2017. Testing performed by: [facility], [address] [place] [address] Basophil pct 1.2 % [facility] Comment: Interpretive Data Percent cell count reference ranges are not reported, since discordance with absolute values may lead to misinterpretation of CBC data. Current Interpretive Data was last revised on 2017. Testing performed by: [facility], [address] [place] [address] Blood 01/05/2025 10:3 3 AM CDT 01/05/2025 2:29 PM CDT us Notinfile Unknown LAB BLOOD ORDERABLES Final Res ult [facility] One [facility] Department [place] [address] * (ABNORMAL) Comprehensive metabolic panel, without glucose (Outreach) (01/05/2025 10:33 AM CDT) Sodium 142 135 - 145 mmol/L [facility] Comment:Testing performed by : [facility], 1 [facility], [address] Potassium, pl 4.2 3.3 - 4.9 mmol/L [facility] Comment:Testing performed by : [facility], 1 [facility], [address] Chloride 105 97 - 110 mmol/L [facility] Comment:Testing performed by : [facility], 1 [facility], [address] CO2 27 22 - 32 mmol/L [facility] Comment:Testing performed by : [facility], 1 [facility], [address] Anion gap 10 2 - 15 mmol/L [facility] Comment:Testing performed by : [facility], 1 [facility], [address] BUN 19 6 - 25 mg/dL [facility] Comment:Testing performed by : [facility], 1 [facility], [address] Creatinine 1.07 0.60 - 1.10 mg/dL [facility] Comment:Testing performed by : [facility], 1 [facility], [address] Calcium 9.4 8.5 - 10.3 mg/dL [facility] Comment:Testing performed by : [facility], 1 [facility], [address] Protein, pl 6.3(L) 6.5 - 8.5 g/dL [facility] Comment:Testing performed by : [facility], 1 [facility], [address] Albumin 4.0 3.5 - 5.0 g/dL [facility] Comment:Testing performed by : [facility], 1 [facility], [address] Bilirubin, total 0.5 0.1 - 1.2 mg/dL [facility] Comment:Testing performed by : [facility], 1 [facility], [address] Alk phos 95 40 - 130 Units/L [facility] Comment:Testing performed by : [facility], 1 [facility], [address] AST 29 10 - 45 Units/L [facility] Comment:Testing performed by : [facility], 1 [facility], [address] ALT 50(H) 7 - 45 Units/L [facility] Comment:Testing performed by : [facility], 1 [facility], [address] Blood 01/05/2025 10:3 3 AM CDT 01/05/2025 2:29 PM CDT us Notinfile Unknown LAB BLOOD ORDERABLES Final Res ult [facility] One [facility] Department [place] [address] * (ABNORMAL) CBC with auto differential (01/05/2025 10:33 AM CDT) WBC 6.88 3.80 - 9.90 K/cumm [facility] Comment:Testing performed by : [facility], 1 [facility], [address] Hgb 8.8(L) 11.9 - 15.5 g/dL [facility] Comment:Testing performed by : [facility], 1 [facility], [address] Hct 28.6(L) 35.6 - 45.5 % [facility] Comment:Testing performed by : [facility], 1 [facility], [address] Plt 208 150 - 400 K/cumm [facility] Comment:Testing performed by : [facility], 1 [facility], [address] MPV 9.4 9.1 - 12.3 fL [facility] Comment:Testing performed by : [facility], [address] [place] [address] RBC 3.22(L) 3.90 - 5.20 M/cumm [facility] Comment:Testing performed by : [facility], 1 [facility], [address] MCV 88.8 81.3 - 96.4 fL [facility] Comment:Testing performed by : [facility], 1 [facility], [address] MCH 27.3 27.1 - 33.3 pg [facility] Comment:Testing performed by : [facility], 1 [facility], [address] MCHC 30.8(L) 32.3 - 35.7 g/dL [facility] Comment:Testing performed by : [facility], 1 [facility], [address] RDW CV 14.7 11.1 - 14.9 % [facility] Comment:Testing performed by : [facility], 1 [facility], [address] RDW SD 47.3 35.7 - 48.1 fL [facility] Comment:Testing performed by : [facility], 1 [facility], [address] NRBC abs 0.00 0.00 - 0.01 K/cumm [facility] Comment:Testing performed by : [facility], 1 [facility], [address] Blood 01/05/2025 10:3 3 AM CDT 01/05/2025 2:29 PM CDT us Notinfile Unknown LAB BLOOD ORDERABLES Final Res ult [facility] Department [place] [address] * Vitamin D 25 hydroxy (01/05/2025 10:33 AM CDT) Vitamin D 25-OH 41 30 - 80 ng/mL [facility] Comment:Testing performed by : [facility], 1 [facility], [place]., [address] Blood 01/05/2025 10:3 3 AM CDT 01/05/2025 2:29 PM CDT us Notinfile Unknown LAB BLOOD ORDERABLES Final Res ult [facility]LEX [facility] Department [place] [address] * XR Chest Pa Lateral 2 Views [...] BLOOD ORDERABLES Final Result [facility]LEX [facility] Department [place] [address] * (ABNORMAL) CBC without differential (12/31/2024 10:26 PM CDT) WBC 9.64 3.80 - 9.90 K/cumm Hgb 8.4(L) 11.9 - 15.5 g/dL [facility] Hct 27.0(L) 35.6 - 45.5 % [facility] Plt 211 150 - 400 K/cumm [facility] MPV 9.1 9.1 - 12.3 fL [facility] RBC 2.97(L) 3.90 - 5.20 M/cumm [facility] MCV 90.9 81.3 - 96.4 fL [facility] MCH 28.3 27.1 - 33.3 pg [facility] MCHC 31.1(L) 32.3 - 35.7 g/dL [facility] RDW CV 15.0(H) 11.1 - 14.9 % [facility] RDW SD 49.3(H) 35.7 - 48.1 fL [facility] NRBC abs 0.00 0.00 - 0.01 K/cumm [facility] Blood 12/31/2024 10:2 6 PM CDT 12/31/2024 10:44 PM CDT us Xena Bai NP LAB BLOOD ORDERABLES Final Result [facility] One [facility] Department [place] [address] * (ABNORMAL) Comprehensive metabolic panel (12/31/2024 10:26 PM CDT) Pathologist [facility] Sodium 141 135 - 145 mmol/L Potassium, pl 4.4 3.3 - 4.9 mmol/L [facility] Chloride 109 97 - 110 mmol/L [facility] CO2 25 22 - 32 mmol/L [facility] Anion gap 7 2 - 15 mmol/L [facility] BUN 15 6 - 25 mg/dL [facility] Creatinine 1.00 0.60 - 1.10 mg/dL [facility] Glucose 109 70 - 199 mg/dL [facility] Comment: Interpretive Data Fasting glucose >/= [...] 2022. Calcium 8.6 8.5 - 10.3 mg/dL [facility] Bilirubin, total 0.5 0.1 - 1.2 mg/dL [facility] Protein, pl 6.2(L) 6.5 - 8.5 g/dL [facility] Albumin 3.7 3.5 - 5.0 g/dL [facility] Alk phos 94 40 - 130 Units/L [facility] ALT 70(H) 7 - 45 Units/L [facility] AST 31 10 - 45 Units/L [facility] Blood 12/31/2024 10:2 6 PM CDT 12/31/2024 10:43 PM CDT us Xena Bai NP LAB BLOOD ORDERABLES Final Result [facility] Department [place] [address] * X-ray chest 1 view (12/31/2024 4:59 [...] degree AV block 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 Dual chamber pacemaker [...] recorded. Images were taken in MATSON and TANZANIAN views to ensure appropriate lead placement. The [...] and device programming: - RA Lead (#[id number]): Sensing 1.2 mV, Pacing threshold 0.75 V at 0.4 ms, Imp 1026 Ohm - RV Lead (#[id number]): Sensing 7.0 mV, Pacing threshold 0.5 V at 0.4 ms, Imp 703 Ohm - Device: Clinkure S [id number] MRI Surescan pacemaker (#[id number]), programmed AAI/DDD 60-130 Conclusions: 1. Successful placement [...] days post-discharge Shola Cha MD Clinical Cardiac Keller Machine Operator Ronel Arellano NP CV ELECTROPHYSIOLOGY P ROCS Final Result * [place] AN 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 (12/31/2024 12:52 PM CDT) Narrative Lloyd Dowd CRNA - 12/31/2024 12:52 PM CDT Lloyd Dowd CRNA 12/31/2024 12:52 PM Peripheral IV Catheter Patient location: OR Staff: Placed by: AWNING MAKER AND INSTALLER: Kalie Madrigal CRNA Preprocedure prep: Prep solution: [...] BLOOD ORDERABLES Final Result ALEX [facility] Department [place] [address] * (ABNORMAL) aPTT (12/30/2024 10:52 PM CDT) [...] peripherally (not from CVC). us See Shrestha JUNIOR BOOKKEEPER LAB BLOOD ORDERABLES Final Result Performing Organization Address [facility] Co de Phone Number [facility] Department [place] [address] * (ABNORMAL) CBC without differential (12/30/2024 10:52 PM CDT) WBC 11.75(H) 3.80 - 9.90 K/cumm Hgb 8.8(L) 11.9 - 15.5 g/dL [facility] Hct 28.4(L) 35.6 - 45.5 % [facility] Plt 243 150 - 400 K/cumm [facility] MPV 9.3 9.1 - 12.3 fL [facility] RBC 3.08(L) 3.90 - 5.20 M/cumm [facility] MCV 92.2 81.3 - 96.4 fL [facility] MCH 28.6 27.1 - 33.3 pg [facility] MCHC 31.0(L) 32.3 - 35.7 g/dL [facility] RDW CV 15.0(H) 11.1 - 14.9 % [facility] RDW SD 49.7(H) 35.7 - 48.1 fL [facility] NRBC abs 0.00 0.00 - 0.01 K/cumm [facility] Blood 12/30/2024 10:5 2 PM CDT 12/31/2024 12:08 AM CDT Xena Bai JUNIOR BOOKKEEPER LAB BLOOD ORDERABLES Final Result Performing Organization Address City/State/[facility] Co de Phone Number [facility] Department [place] [address] * Type and screen (12/30/2024 10:52 PM CDT) Pathologist [facility] ABO Rh B Negative Sarah, indirect Negative [facility] Blood 12/30/2024 10:5 2 PM CDT 12/31/2024 12:10 AM CDT Narrative [facility] - 12/31/2024 1:00 AM CDT Has the patient had Daratumumab or Isatuximab in the past 6 months?->Unknown Xena Bai NP LAB BLOOD BANK TEST ORDERA BLES Final Result Performing Organization Address [facility] Co de Phone Number [facility] Department [place] [address] * (ABNORMAL) Comprehensive metabolic panel (12/30/2024 10:52 PM CDT) Pathologist [facility] Sodium 137 135 - 145 mmol/L Potassium, pl 4.4 3.3 - 4.9 mmol/L [facility] Chloride 103 97 - 110 mmol/L [facility] CO2 24 22 - 32 mmol/L [facility] Anion gap 10 2 - 15 mmol/L [facility] BUN 21 6 - 25 mg/dL [facility] Creatinine 1.06 0.60 - 1.10 mg/dL [facility] Glucose 118 70 - 199 mg/dL [facility] Comment: Interpretive Data Fasting glucose >/= [...] 2022. Calcium 8.8 8.5 - 10.3 mg/dL [facility] Bilirubin, total 0.5 0.1 - 1.2 mg/dL [facility] Protein, pl 6.8 6.5 - 8.5 g/dL [facility] Albumin 4.0 3.5 - 5.0 g/dL [facility] Alk phos 114 40 - 130 Units/L [facility] ALT 80(H) 7 - 45 Units/L [facility] AST 37 10 - 45 Units/L [facility] Blood 12/30/2024 10:5 2 PM CDT 12/31/2024 12:07 AM CDT Xena Bai NP LAB BLOOD ORDERABLES Final Result [facility] Department [place] [address] * (ABNORMAL) aPTT (12/30/2024 5:13 PM CDT) aPTT 67(H) 28 - 38 sec Comment: Interpretive Data Heparin therapeutic range: 66.0 - 100.0 seconds. Range based on correlation with therapeutic heparin activity range of 0.3 - 0.7 Units/mL. Current interpretive data was last revised on 2023. Blood 12/30/2024 5:13 PM CDT 12/30/2024 5:31 PM CDT Narrative [facility] - 12/30/2024 5:41 PM CDT STAT [...] peripherally (not from CVC). us See Shrestha JUNIOR BOOKKEEPER LAB BLOOD ORDERABLES Final Result Performing Organization Address [facility] Co de Phone Number [facility]LEX [facility] Department [place] [address] * eGFR (12/30/2024 10:54 AM CDT) eGFR [...] CDT 12/30/2024 11:18 AM CDT Xena Bai JUNIOR BOOKKEEPER LAB BLOOD ORDERABLES Final Result Performing Organization Address [facility] Co de Phone Number [facility] [place] [address] * (ABNORMAL) aPTT (12/30/2024 10:54 AM CDT) aPTT 27(L) 28 - 38 sec Comment: Interpretive Data Heparin therapeutic range: 66.0 - 100.0 seconds. Range based on correlation with therapeutic heparin activity range of 0.3 - 0.7 Units/mL. Current interpretive data was last revised on 2023. Blood 12/30/2024 10:5 4 AM CDT 12/30/2024 11:17 AM CDT Narrative [facility] - 12/30/2024 11:48 AM CDT Baseline prior to heparin initiation See Shrestha NP LAB BLOOD ORDERABLES Final Result Performing Organization Address [facility] de Phone Number [facility] [place] [address] * (ABNORMAL) Protime-INR (12/30/2024 10:54 AM CDT) PT 14.1(H) 9.7 - 13.0 sec INR 1.30(H) 0.90 - 1.20 [facility] Comment: Interpretive data Oral anticoagulant therapeutic ranges: Venous thromboembolism prophylaxis or treatment: 2.0-3.0 CARDIOLOGY Standard range: 2.0-3.0 High-intensity range: 2.5-3.5 Refer to indication-specific guidelines for appropriate target ranges for prosthetic heart valve replacement. Current interpretive data was last revised on 2019. Blood 12/30/2024 10:5 4 AM CDT 12/30/2024 11:17 AM CDT Narrative [facility] - 12/30/2024 11:48 AM CDT Baseline prior to heparin initiation See Shrestha NP LAB BLOOD ORDERABLES Final Result Performing Organization Address [facility] de Phone Number [facility] Department [place] [address] * (ABNORMAL) CBC without differential (12/30/2024 10:54 AM CDT) WBC 9.63 3.80 - 9.90 K/cumm Hgb 8.4(L) 11.9 - 15.5 g/dL [facility] Hct 27.2(L) 35.6 - 45.5 % [facility] Plt 284 150 - 400 K/cumm [facility] MPV 9.1 9.1 - 12.3 fL [facility] RBC 2.96(L) 3.90 - 5.20 M/cumm [facility] MCV 91.9 81.3 - 96.4 fL [facility] MCH 28.4 27.1 - 33.3 pg [facility] MCHC 30.9(L) 32.3 - 35.7 g/dL [facility] RDW CV 15.3(H) 11.1 - 14.9 % [facility] RDW SD 51.1(H) 35.7 - 48.1 fL [facility] NRBC abs 0.00 0.00 - 0.01 K/cumm [facility] Blood 12/30/2024 10:5 4 AM CDT 12/30/2024 11:18 AM CDT Narrative [facility] - 12/30/2024 11:28 AM CDT Baseline prior to heparin initiation See Shrestha JUNIOR BOOKKEEPER LAB BLOOD ORDERABLES Final Result [facility] Department [place] [address] * (ABNORMAL) Comprehensive metabolic panel (12/30/2024 10:54 AM CDT) [facility] Signature Sodium 139 135 - 145 mmol/L Potassium, pl 4.5 3.3 - 4.9 mmol/L [facility] Chloride 104 97 - 110 mmol/L [facility] CO2 26 22 - 32 mmol/L [facility] Anion gap 9 2 - 15 mmol/L [facility] BUN 19 6 - 25 mg/dL [facility] Creatinine 0.96 0.60 - 1.10 mg/dL [facility] Glucose 98 70 - 199 mg/dL [facility] Comment: Interpretive Data Fasting glucose >/= [...] Calcium 9.0 8.5 - 10.3 mg/dL [facility] Bilirubin, total 0.6 0.1 - 1.2 mg/dL [facility] Protein, pl 6.4(L) 6.5 - 8.5 g/dL [facility] Albumin 3.9 3.5 - 5.0 g/dL [facility] Alk phos 112 40 - 130 Units/L [facility] ALT 92(H) 7 - 45 Units/L [facility] AST 36 10 - 45 Units/L [facility] Blood 12/30/2024 10:5 4 AM CDT 12/30/2024 11:18 AM CDT Xena aBi NP LAB BLOOD ORDERABLES Final Result [facility] Department [place] [address] * IR Central Line Placement > 5 [...] was obtained. Prior to beginning the procedure, [place] Protocol was used to confirm the patient's [...] was obtained. Prior to beginning the procedure, [place] Protocol was used to confirm the patient's [...] it. Electronically signed by: Stevie So M.D. See Shrestha JUNIOR BOOKKEEPER IMG IR PROCEDURES Final Re sult * [...] CDT 12/28/2024 10:10 PM CDT Xena Bai JUNIOR BOOKKEEPER LAB BLOOD ORDERABLES Final Result [facility] Department [place] [address] * (ABNORMAL) CBC without differential (12/28/2024 8:30 PM CDT) WBC 11.82(H) 3.80 - 9.90 K/cumm Hgb 9.0(L) 11.9 - 15.5 g/dL [facility] Hct 28.7(L) 35.6 - 45.5 % [facility] Plt 299 150 - 400 K/cumm [facility] MPV 9.4 9.1 - 12.3 fL [facility] RBC 3.07(L) 3.90 - 5.20 M/cumm [facility] MCV 93.5 81.3 - 96.4 fL [facility] MCH 29.3 27.1 - 33.3 pg [facility] MCHC 31.4(L) 32.3 - 35.7 g/dL [facility] RDW CV 15.5(H) 11.1 - 14.9 % [facility] RDW SD 52.2(H) 35.7 - 48.1 fL [facility] NRBC abs 0.00 0.00 - 0.01 K/cumm [facility] Blood 12/28/2024 8:30 PM CDT 12/28/2024 10:10 PM CDT Xena Bai JUNIOR BOOKKEEPER LAB BLOOD ORDERABLES Final Result [facility] Department [place] [address] * (ABNORMAL) Comprehensive metabolic panel (12/28/2024 8:30 PM CDT) Sodium 140 135 - 145 mmol/L Potassium, pl 4.5 3.3 - 4.9 mmol/L [facility] Chloride 105 97 - 110 mmol/L [facility] CO2 25 22 - 32 mmol/L [facility] Anion gap 10 2 - 15 mmol/L [facility] BUN 24 6 - 25 mg/dL [facility] Creatinine 1.09 0.60 - 1.10 mg/dL [facility] Glucose 99 70 - 199 mg/dL [facility] Comment: Interpretive Data Fasting glucose >/= [...] 2022. Calcium 9.1 8.5 - 10.3 mg/dL [facility] Bilirubin, total 0.5 0.1 - 1.2 mg/dL [facility] Protein, pl 6.5 6.5 - 8.5 g/dL [facility] Albumin 3.9 3.5 - 5.0 g/dL [facility] Alk phos 130 40 - 130 Units/L [facility] ALT 130(H) 7 - 45 Units/L [facility] AST 56(H) 10 - 45 Units/L [facility] Blood 12/28/2024 8:30 PM CDT 12/28/2024 10:10 PM CDT us Xena Bai NP LAB BLOOD ORDERABLES Final Result [facility] Department [place] [address] * (ABNORMAL) eGFR (12/27/2024 8:34 PM CDT) Pathologist [facility] eGFR 55(L) >=60 mL/min/1. 73 m2 Comment: [...] Bai NP LAB BLOOD ORDERABLES Final Result [facility] Department [place] [address] * (ABNORMAL) CBC without differential (12/27/2024 8:34 PM CDT) [facility] WBC 11.68(H) 3.80 - 9.90 K/cumm Hgb 9.0(L) 11.9 - 15.5 g/dL [facility] Hct 29.4(L) 35.6 - 45.5 % [facility] Plt 287 150 - 400 K/cumm [facility] MPV 9.5 9.1 - 12.3 fL [facility] RBC 3.11(L) 3.90 - 5.20 M/cumm [facility] MCV 94.5 81.3 - 96.4 fL [facility] MCH 28.9 27.1 - 33.3 pg [facility] MCHC 30.6(L) 32.3 - 35.7 g/dL [facility] RDW CV 15.9(H) 11.1 - 14.9 % [facility] RDW SD 54.4(H) 35.7 - 48.1 fL [facility] NRBC abs 0.00 0.00 - 0.01 K/cumm [facility] Blood 12/27/2024 8:34 PM CDT 12/27/2024 9:38 PM CDT Xena Bai JUNIOR BOOKKEEPER LAB BLOOD ORDERABLES Final Result Performing Organization Address [facility] Co de Phone Number [facility] Department [place] [place] [address] * Type and screen (12/27/2024 8:34 PM CDT) Pathologist [facility] Sarah, indirect Negative ABO Rh B Negative [facility] Blood 12/27/2024 8:34 PM CDT 12/27/2024 9:42 PM CDT Narrative [facility] - 12/27/2024 10:58 PM CDT Has the patient had Daratumumab or Isatuximab in the past 6 months?->Unknown Xena Bai JUNIOR BOOKKEEPER LAB BLOOD BANK TEST ORDERA BLES Final Result [facility] Department [place] [address] * (ABNORMAL) Comprehensive metabolic panel (12/27/2024 8:34 PM CDT) Pathologist [facility] Sodium 139 135 - 145 mmol/L Potassium, pl 4.1 3.3 - 4.9 mmol/L [facility] Chloride 103 97 - 110 mmol/L [facility] CO2 24 22 - 32 mmol/L [facility] Anion gap 12 2 - 15 mmol/L [facility] BUN 24 6 - 25 mg/dL [facility] Creatinine 1.13(H) 0.60 - 1.10 mg/dL [facility] Glucose 115 70 - 199 mg/dL [facility] Comment: Interpretive Data Fasting glucose >/= [...] 2022. Calcium 8.7 8.5 - 10.3 mg/dL [facility] Bilirubin, total 0.6 0.1 - 1.2 mg/dL [facility] Protein, pl 6.5 6.5 - 8.5 g/dL [facility] Albumin 3.9 3.5 - 5.0 g/dL [facility] Alk phos 95 40 - 130 Units/L [facility] ALT 136(H) 7 - 45 Units/L [facility] AST 42 10 - 45 Units/L [facility] Blood 12/27/2024 8:34 PM CDT 12/27/2024 9:37 PM CDT Xena Bai NP LAB BLOOD ORDERABLES Final Result [facility] [place] [address] * eGFR (12/26/2024 1:25 PM CDT) eGFR [...] PM CDT 12/26/2024 2:28 PM CDT us Xena Bai NP LAB BLOOD ORDERABLES Final Result [facility] Department [place] [address] * Blood culture Blood (12/26/2024 1:25 PM [...] performance characteristics have been verified by the [facility] Microbiology Laboratory. For questions about this culture, contact the Microbiology Laboratory at [phone]. Interpretive data was last revised on 24. us See Shrestha JUNIOR BOOKKEEPER LAB MICROBIOLOGY - GENERAL ORDERABLES Final Result Performing Organization Address City/[facility]/ZIP Co de Phone Number [facility] Department [place] [address] * (ABNORMAL) CBC without differential (12/26/2024 1:25 PM CDT) WBC 12.65(H) 3.80 - 9.90 K/cumm Hgb 9.0(L) 11.9 - 15.5 g/dL [facility] Hct 28.9(L) 35.6 - 45.5 % [facility] Plt 306 150 - 400 K/cumm [facility] MPV 9.6 9.1 - 12.3 fL [facility] RBC 3.11(L) 3.90 - 5.20 M/cumm [facility] MCV 92.9 81.3 - 96.4 fL [facility] MCH 28.9 27.1 - 33.3 pg [facility] MCHC 31.1(L) 32.3 - 35.7 g/dL [facility] RDW CV 15.9(H) 11.1 - 14.9 % [facility] RDW SD 51.8(H) 35.7 - 48.1 fL [facility] NRBC abs 0.00 0.00 - 0.01 K/cumm [facility] Blood 12/26/2024 1:25 PM CDT 12/26/2024 2:28 PM CDT us Xean Bai JUNIOR BOOKKEEPER LAB BLOOD ORDERABLES Final Result Performing Organization Address City/[facility]/ZIP Co de Phone Number [facility] [place] [address] * (ABNORMAL) CBC without differential (12/26/2024 1:25 PM CDT) WBC 12.21(H) 3.80 - 9.90 K/cumm Hgb 9.0(L) 11.9 - 15.5 g/dL [facility] Hct 28.5(L) 35.6 - 45.5 % [facility] Plt 307 150 - 400 K/cumm [facility] MPV 9.5 9.1 - 12.3 fL [facility] RBC 3.07(L) 3.90 - 5.20 M/cumm [facility] MCV 92.8 81.3 - 96.4 fL [facility] MCH 29.3 27.1 - 33.3 pg [facility] MCHC 31.6(L) 32.3 - 35.7 g/dL [facility] RDW CV 15.9(H) 11.1 - 14.9 % [facility] RDW SD 52.4(H) 35.7 - 48.1 fL [facility] NRBC abs 0.00 0.00 - 0.01 K/cumm [facility] Blood 12/26/2024 1:25 PM CDT 12/26/2024 2:28 PM CDT us Kika Simpson [facility] LAB BLOOD ORDERABLES nal Result [facility] Department [place] [address] * Type and screen (12/26/2024 1:25 PM CDT) Sarah, indirect Negative ABO Rh B Negative [facility] Blood 12/26/2024 1:25 PM CDT 12/26/2024 2:26 PM CDT Narrative [facility] - 12/26/2024 3:25 PM CDT Has the patient had Daratumumab or Isatuximab in the past 6 months?->Unknown Xena Bai JUNIOR BOOKKEEPER LAB BLOOD BANK TEST ORDERA BLES Final Result [facility] Department [place] [address] * (ABNORMAL) Comprehensive metabolic panel (12/26/2024 1:25 PM CDT) Sodium 139 135 - 145 mmol/L Potassium, pl 3.7 3.3 - 4.9 mmol/L [facility] Chloride 102 97 - 110 mmol/L [facility] CO2 25 22 - 32 mmol/L [facility] Anion gap 12 2 - 15 mmol/L [facility] BUN 23 6 - 25 mg/dL [facility] Creatinine 1.01 0.60 - 1.10 mg/dL [facility] Glucose 115 70 - 199 mg/dL [facility] Comment: Interpretive Data Fasting glucose >/= [...] 2022. Calcium 9.1 8.5 - 10.3 mg/dL [facility] Bilirubin, total 0.7 0.1 - 1.2 mg/dL [facility] Protein, pl 6.5 6.5 - 8.5 g/dL [facility] Albumin 3.7 3.5 - 5.0 g/dL [facility] Alk phos 93 40 - 130 Units/L [facility] ALT 169(H) 7 - 45 Units/L [facility] AST 50(H) 10 - 45 Units/L [facility] Blood 12/26/2024 1:25 PM CDT 12/26/2024 2:28 PM CDT Xena Bai JUNIOR BOOKKEEPER LAB BLOOD ORDERABLES Final Result [facility]LEX [facility] Department [place] [address] * XR Chest 1 View (12/26/2024 5:21 [...] it. Electronically signed by: Sharlene Claros M.D. Kika Simpson DNP IMG XR PROCEDURES Final Result * XR Foot [...] signed by: Bernabe Lowry M.D. See Shrestha JUNIOR BOOKKEEPER IMG XR PROCEDURES Final Re sult * [...] by: Boris Casas M.D., Ph.D Kika Simpson [facility] IMG FLUOROSCOPY PROCEDU RES Final Result * SUBGRADE ROLLER OPERATOR Evaluate and Treat (VFSS) (12/25/2024 3:07 PM CDT) Narrative Misty Fields, NICO - 12/25/2024 3:07 PM CDT Misty Fields SLP 12/25/2024 5:26 PM Speech-Language Pathology: Videofluoroscopic Study of Swallow (VFSS/MBS) HPI/PMH *Update 12/19: intubated 12/15-12/17. Passed Delilah swallow screen 12/19 but later coughing w/liquid Regular diet, thin liquids per SUBGRADE ROLLER OPERATOR eval 12/13. Episodes of seizures since then. [...] pt report General Information Adi Flowers 12/25/24 SUBGRADE ROLLER OPERATOR Received On: 12/25/24 General Observations: Pt seated [...] hygiene prior to po Specialty Instructions: alert SUBGRADE ROLLER OPERATOR if pt frequently coughing with thin liquids [...] at 90 degrees. Consistencies Administered: Thin liquids, [place] thickened liquids, Purees, Solids Administered consistencies contain [...] despite effort (x1, otherwise PAS of 6) [place] Thickened Liquids: Laryngeal Penetration: Present Aspiration Present: Yes Timing: During Amount: Trace Response to aspiration: None Successful Modifications : Repeat swallow Unsuccessful Modifications: Cough, Repeat swallow Penetration Aspiration Scale-[place]: 6-Material enters the airway, passes below the [...] treatment goals and details, if indicated. Plan SUBGRADE ROLLER OPERATOR Frequency of Services during current admission: Follow-up visit only SUBGRADE ROLLER OPERATOR Recommendation (Add'l Services): No further SUBGRADE ROLLER OPERATOR indicated (likely at d/c) Next Visit Plan: treatment/therapy Additional Referrals: consider ENT consult at pt's request Discharge Summary Statement If this is the last swallow therapy visit, this serves as the discharge summary. us Kika Simpson DNP SUBGRADE ROLLER OPERATOR ORDERABLES Final R esult * POCT glucose (12/24/2024 7:42 AM CDT) Glucose, POC 110 70 - 199 mg/dL Blood 12/24/2024 7:42 AM CDT 12/24/2024 7:42 AM CDT us Indiana Mortensen MD LAB POCT ORDERABLES - DEVICE Final Result [facility] Department [place] [address] * XR Chest 1 View (12/23/2024 10:44 [...] it. Electronically signed by: Kit Newell M.D. us Kika Simpson DNP IMG XR PROCEDURES Final [...] plan with the patient's team and other medical/cycle consultant staff. This time was in addition [...] * (ABNORMAL) eGFR (12/23/2024 12:10 AM CDT) [facility] eGFR 52(L) >=60 mL/min/1. 73 m2 Comment: [...] AM CDT 12/23/2024 12:37 AM CDT us Marian Rodrigues NP LAB BLOOD ORDERABLES Brenda wharton Result [facility] Department [place] [address] * (ABNORMAL) CBC without differential (12/23/2024 12:10 AM CDT) [facility] WBC 22.13(H) 3.80 - 9.90 K/cumm Hgb 9.6(L) 11.9 - 15.5 g/dL [facility] Hct 31.2(L) 35.6 - 45.5 % [facility] Plt 289 150 - 400 K/cumm [facility] MPV 9.8 9.1 - 12.3 fL [facility] RBC 3.35(L) 3.90 - 5.20 M/cumm [facility] MCV 93.1 81.3 - 96.4 fL [facility] MCH 28.7 27.1 - 33.3 pg [facility] MCHC 30.8(L) 32.3 - 35.7 g/dL [facility] RDW CV 15.5(H) 11.1 - 14.9 % [facility] RDW SD 52.0(H) 35.7 - 48.1 fL [facility] NRBC abs 0.05(H) 0.00 - 0.01 K/cumm [facility] Blood 12/23/2024 12:1 0 AM CDT 12/23/2024 12:49 AM CDT Kika Carrenoly DNP LAB BLOOD ORDERABLES Fi nal Result Performing Organization Address City/[facility] Co de Phone Number [facility] [place] [address] * Phosphorus (12/23/2024 12:10 AM CDT) Phosphorus, pl 3.4 2.3 - 4.5 mg/dL Blood 12/23/2024 12:1 0 AM CDT 12/23/2024 12:37 AM CDT Kika Simpson DNP LAB BLOOD ORDERABLES Fi nal Result Performing Organization Address [facility] de Phone Number [facility] Department [place] [place] [address] * Magnesium (12/23/2024 12:10 AM CDT) Magnesium 2.2 1.4 - 2.5 mg/dL Blood 12/23/2024 12:1 0 AM CDT 12/23/2024 12:37 AM CDT Kika Alessandra Calvin DNP LAB BLOOD ORDERABLES Fi nal Result Performing Organization Address City/[facility] Co de Phone Number [facility] [place] [address] * (ABNORMAL) Comprehensive metabolic panel (12/23/2024 12:10 AM CDT) Sodium 141 135 - 145 mmol/L Potassium, pl 3.8 3.3 - 4.9 mmol/L [facility] Chloride 98 97 - 110 mmol/L [facility] CO2 31 22 - 32 mmol/L [facility] Anion gap 12 2 - 15 mmol/L [facility] BUN 36(H) 6 - 25 mg/dL [facility] Creatinine 1.18(H) 0.60 - 1.10 mg/dL [facility] Glucose 106 70 - 199 mg/dL [facility] Comment: Interpretive Data Fasting glucose >/= [...] 2022. Calcium 8.8 8.5 - 10.3 mg/dL [facility] Bilirubin, total 0.7 0.1 - 1.2 mg/dL [facility] Protein, pl 6.4(L) 6.5 - 8.5 g/dL [facility] Albumin 3.7 3.5 - 5.0 g/dL [facility] Alk phos 91 40 - 130 Units/L [facility] ALT 391(H) 7 - 45 Units/L [facility] AST 70(H) 10 - 45 Units/L [facility] Blood 12/23/2024 12:1 0 AM CDT 12/23/2024 12:37 AM CDT us Kika Simpson DNP LAB BLOOD ORDERABLES Fi nal Result [facility] Department [place] [address] * POCT glucose (12/22/2024 4:05 PM CDT) Glucose, POC 134 70 - 199 mg/dL Blood 12/22/2024 4:05 PM CDT 12/22/2024 4:05 PM CDT us Indiana Mortensen MD LAB POCT ORDERABLES - DEVICE Final Result Performing Organization Address City/State/[facility] Co de Phone Number ALEX [facility] Department [place] [address] * US VEIN DUPLEX LOWER EXTREMITY RIGHT LIMITED, UNILATERAL (12/22/2024 3:35 PM CDT) Anatomical Region Laterality Modality Vascular Right Ultrasound 12/22/2024 10:4 1 AM CDT Narrative 12/23/2024 11:17 AM CDT [facility] - Department of Vascular Surgery, Vascular Laboratory [address] [place] [address] Lower Extremity Venous Ultrasound Report Patient Name: ADI FLOWERS : 1960 (64y 1m) Study Date: 12/22/2024 10:41:36 AM Gender: F Tech: Location: [id number] Ref Provider: RUTHANN COX Quality: Adequate Order [...] pain, swelling, and redness - FINDINGS: Performing Analyzer Sales: Maria Esther Sam RVT. Right: Duplex scan [...] above. Electronically Signed By: Ravinder Buitrago MD [facility] [phone] 12/23/2024 10:09:07 AM CDT Procedure Note Ravinder Buitrago MD - 12/23/2024 [facility] - Department of Vascular Surgery,Vascular Laboratory [address] [place], [place] [id number] Lower Extremity Venous Ultrasound Report Patient Name: ADI FLOWERS : 1960 (64y 1m) Study Date: 12/22/2024 10:41:36 AM Gender: F Tech: Location: [id number] Ref Provider: RUTHANN COX Quality: Adequate Order [...] increasedpain, swelling, and redness - FINDINGS: Performing Analyzer Sales: Maria Esther Sam RVT. Right: Duplex scan [...] above. Electronically Signed By: Ravinder Buitrago MD [facility] [phone] 12/23/2024 10:09:07 AM CDT us Ruthann Cox JUNIOR BOOKKEEPER IMG US PROCEDURES Fin al Result * POCT glucose (12/22/2024 1:23 PM CDT) Glucose, POC 128 70 - 199 mg/dL Blood 12/22/2024 1:23 PM CDT 12/22/2024 1:23 PM CDT us Indiana Mortensen MD LAB POCT ORDERABLES - DEVICE Final Result Performing Organization Address [facility]/ZIP Co de Phone Number [facility] Department [place] [address] * Potassium, whole blood (12/22/2024 1:18 PM CDT) Potassium, bld 3.4 3.3 - 4.9 mmol/L Blood 12/22/2024 1:18 PM CDT 12/22/2024 1:39 PM CDT us Chapito Rodriguez NP LAB BLOOD ORDERABLES Final Re sult Performing Organization Address City/[facility]/ZIP Co de Phone Number ALEX [facility] Department [place] [address] * XR Chest 1 View (12/22/2024 9:36 [...] Sunny Child M.D. us Thoa Thi Rodriguez JUNIOR BOOKKEEPER IMG XR PROCEDURES Final Resul t * POCT glucose (12/22/2024 7:34 AM CDT) Glucose, POC 127 70 - 199 mg/dL Blood 12/22/2024 7:34 AM CDT 12/22/2024 7:34 AM CDT Indiana Mortensen MD LAB POCT ORDERABLES - DEVICE Final Result ALEX [facility] Department [place] [address] * Critical Care (12/22/2024 6:40 AM CDT) [...] plan with the patient's team and other medical/cycle consultant staff. This time was in addition [...] Justice auris DNA Not Detected Not Detected [facility] Comment: Interpretive Data Testing performed by [facility] Molecular Infectious Disease Laboratory using the Stacie shirin 6800 Justice auris assay. This assay detects DNA from Justice auris using Real-Time PCR. This assay is laboratory developed and is not cleared by the [place] Food and Drug Administration. The performance characteristics have been verified by the [facility] Molecular Infectious Disease Laboratory. Axilla/Groin 12/22/2024 2:11 AM CDT 12/22/2024 4:08 AM CDT Narrative ALEX [facility] - 12/22/2024 1:00 PM CDT Order placed by [facility] due to ring surveillance. us Instant Order Generic Provider LAB MICROBIOLOGY - GENERAL ORDERABLES Final Result Performing Organization Address [facility]/ZIP Co de Phone Number [facility] [place] [address] [facility] * (ABNORMAL) eGFR (12/22/2024 2:11 AM [...] 12/22/2024 3:48 AM CDT us Marian Rodrigues JUNIOR BOOKKEEPER LAB BLOOD ORDERABLES Brenda l Result Performing Organization Address City/[facility]/ZIP Co de Phone Number [facility] Department [place] [address] * (ABNORMAL) CBC without differential (12/22/2024 2:11 AM CDT) Pathologist [facility] WBC 23.59(H) 3.80 - 9.90 K/cumm Hgb 8.8(L) 11.9 - 15.5 g/dL [facility] Hct 27.0(L) 35.6 - 45.5 % [facility] Plt 265 150 - 400 K/cumm [facility] MPV 9.7 9.1 - 12.3 fL [facility] RBC 2.98(L) 3.90 - 5.20 M/cumm [facility] MCV 90.6 81.3 - 96.4 fL [facility] MCH 29.5 27.1 - 33.3 pg [facility] MCHC 32.6 32.3 - 35.7 g/dL [facility] RDW CV 15.8(H) 11.1 - 14.9 % [facility] RDW SD 50.0(H) 35.7 - 48.1 fL [facility] NRBC abs 0.06(H) 0.00 - 0.01 K/cumm [facility] Blood 12/22/2024 2:11 AM CDT 12/22/2024 3:49 AM CDT [facility] BLOOD ORDERABLES Fi nal Result Performing Organization Address [facility] de Phone Number [facility] [place] [place] [address] * Phosphorus (12/22/2024 2:11 AM CDT) Pathologist [facility] Phosphorus, pl 4.3 2.3 - 4.5 mg/dL Blood 12/22/2024 2:11 AM CDT 12/22/2024 3:48 AM CDT [facility] LAB BLOOD ORDERABLES Fi nal Result Performing Organization Address [facility] Co de Phone Number [facility] [place] [address] * Magnesium (12/22/2024 2:11 AM CDT) Magnesium 1.9 1.4 - 2.5 mg/dL Blood 12/22/2024 2:11 AM CDT 12/22/2024 3:48 AM CDT us Kika Simpson DNP LAB BLOOD ORDERABLES Fi nal Result [facility] Department [place] [address] * (ABNORMAL) Comprehensive metabolic panel (12/22/2024 2:11 AM CDT) Pathologist [facility] Sodium 143 135 - 145 mmol/L Potassium, pl 3.4 3.3 - 4.9 mmol/L [facility] Chloride 99 97 - 110 mmol/L [facility] CO2 29 22 - 32 mmol/L [facility] Anion gap 15 2 - 15 mmol/L [facility] BUN 32(H) 6 - 25 mg/dL [facility] Creatinine 1.10 0.60 - 1.10 mg/dL [facility] Glucose 114 70 - 199 mg/dL [facility] Comment: Interpretive Data Fasting glucose >/= [...] 2022. Calcium 8.5 8.5 - 10.3 mg/dL [facility] Bilirubin, total 0.8 0.1 - 1.2 mg/dL [facility] Protein, pl 5.9(L) 6.5 - 8.5 g/dL [facility] Albumin 3.3(L) 3.5 - 5.0 g/dL [facility] Alk phos 81 40 - 130 Units/L [facility] ALT 470(H) 7 - 45 Units/L [facility] AST 70(H) 10 - 45 Units/L [facility] Blood 12/22/2024 2:11 AM CDT 12/22/2024 3:48 AM CDT us Kika Simpson DNP LAB BLOOD ORDERABLES Fi nal Result Performing Organization Address [facility] Co de Phone Number [facility] Department [place] [address] * POCT glucose (12/21/2024 9:14 PM CDT) Glucose, POC 118 70 - 199 mg/dL Blood 12/21/2024 9:14 PM CDT 12/21/2024 9:14 PM CDT us Indiana Mortensen MD LAB POCT ORDERABLES - DEVICE Final Result Performing Organization Address [facility] de Phone Number [facility] Department [place] [address] * Critical Care (12/21/2024 7:43 PM CDT) [...] plan with the ICU team and other medical/cycle consultant staff, making frequent assessments and decisions [...] in the medical record us Ruthann Cox JUNIOR BOOKKEEPER IN CLINIC/BEDSIDE ORD ERABLES Final Result * POCT glucose (12/21/2024 3:07 PM CDT) Glucose, POC 120 70 - 199 mg/dL Blood 12/21/2024 3:07 PM CDT 12/21/2024 3:07 PM CDT us Indiana Mortensen MD LAB POCT ORDERABLES - DEVICE Final Result Performing Organization Address City/State/[facility] Co de Phone Number [facility] Department [place] [address] * (ABNORMAL) Urinalysis reflex to microscopic (12/21/2024 11:20 AM CDT) Color, ur Straw Yellow Clarity, ur Clear Clear [facility] Specific gravity, ur 1.009 1.003 - 1.030 [facility] pH, urine 6.5 [facility] Comment: Interpretive Data U rine pH is affected by diet, medications, systemic acid-base disturbances, and renal tubular function. pH may affect urinary stone formation. For example, urine pH below 6.0 may help reduce the tendency for calcium phosphate stones and pH greater than 6.0 may reduce the tendency for uric acid stone formation. Source: [employer] Current Interpretive Data was last revised on 2017 Protein, ur ql Negative Negative [facility] Glucose, ur ql Negative Negative [facility] Ketones, ur Negative Negative [facility] Bilirubin, ur Negative Negative [facility] Blood, ur Trace(A) Negative [facility] Urobilinogen, ur <2.0 <2.0 mg/dL [facility] Nitrite, ur Negative Negative [facility] Leukocyte esterase, ur Trace(A) Negative [facility] UA reflex comment Reflex to microscopic UA will be performed. [facility] Urine 12/21/2024 11:2 0 AM CDT 12/21/2024 11:30 AM CDT Kika Simpson [facility] LAB URINE ORDERABLES Fi nal Result [facility] Department [place] [address] * Blood culture Blood (12/21/2024 11:20 AM CDT) Report Final Report: No growth Blood 12/21/2024 11:2 0 AM CDT 12/21/2024 10:59 PM CDT Narrative [facility] - 12/26/2024 7:00 AM CDT Collection->Peripheral [...] performance characteristics have been verified by the [facility] Microbiology Laboratory. For questions about this culture, contact the Microbiology Laboratory at [phone]. Interpretive data was last revised on 24. Kika Simpson [facility] LAB MICROBIOLOGY - GENE RAL ORDERABLES Final Result Performing Organization Address City/[facility]/ZIP Co de Phone Number ALEX [facility] Department [place] [address] * Blood culture Blood (12/21/2024 11:20 AM CDT) Report Final Report: No growth Blood 12/21/2024 11:2 0 AM CDT 12/21/2024 10:47 PM CDT Narrative ALEX MCKEON - 12/26/2024 7:00 AM CDT Collection->Peripheral 1. [...] performance characteristics have been verified by the [facility] Microbiology Laboratory. For questions about this culture, contact the Microbiology Laboratory at [phone]. Interpretive data was last revised on 24. Kika Simpson DNP LAB MICROBIOLOGY - GENE RAL ORDERABLES Final Result Performing Organization Address City/[facility] Co de Phone Number ALEX [facility] Department [place] [address] * (ABNORMAL) Urinalysis, microscopic only (12/21/2024 11:20 AM CDT) WBC, ur 0-5 0 - 5 /HPF RBC, ur 6-10(A) 0 - 2 /HPF [facility] Bacteria, ur Trace(A) [facility] Mucous, ur Present(A) [facility] Urine 12/21/2024 11:2 0 AM CDT 12/21/2024 11:30 AM CDT us Kika Carrenoly DNP LAB URINE ORDERABLES Fi nal Result ALEX [facility] Department [place] [address] * SUBGRADE ROLLER OPERATOR Evaluate and Treat (FEES) (12/21/2024 11:19 AM [...] to monitor aortic valve stenosis. 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 Regular diet, thin liquids per SUBGRADE ROLLER OPERATOR eval 12/13. Episodes of seizures since then. [...] Diet: Regular General Information Adi Flowers 12/21/24 SUBGRADE ROLLER OPERATOR Received On: 12/21/24 General Observations: Pt seen [...] Diet Solids Recommendation: Regular Diet Liquids Recommendations: [place] thick Recommended Form of Medications: As tolerated [...] Edema: Commissure, posterior Consistencies Administered: Thin liquids, [place] thick liquids, Honey thick liquids, Purees, Solids Thin Liquids: Laryngeal Penetration: Present Aspiration Present: (unable to rule out) Penetration Aspiration Scale-Thin: 3-Material enters the airway, remains above the vocal folds and is not ejected from the airway ; versus 8 Delilah Scale-Vallecular Residue-Thin Liquids: Mild [place] Scale-Pyriform Sinus Residue-Thin Liquids: Mild [place] Thickened Liquids: Laryngeal Penetration: None Aspiration Present: No Penetration Aspiration Scale-[place]: 1-Material does not enter airway [place] Scale-Vallecular Residue-[place] Thickened Liquids: Mild Delilah Scale-Pyriform Sinus Residue-[place] Thickened Liquids: Trace Honey Thickened Liquids: Laryngeal Penetration: None Aspiration Present: No Penetration Aspiration Scale-Honey: 1-Material does not enter airway [place] Scale-Vallecular Residue-Honey Thickened Liquids: Mild [place] Scale-Pyriform Sinus Residue-Honey Thickened Liquids: Trace Purees: Laryngeal Penetration: None Aspiration Present: No Penetration Aspiration Scale-Puree: 1-Material does not enter airway Delilah Scale-Vallecular Residue-Puree: Mild [place] Scale-Pyriform Sinus Residue-Puree: Mild Solids: Laryngeal Penetration: None Aspiration Present: No Penetration Aspiration Scale-Solids: 1-Material does not enter airway [place] Scale-Vallecular Residue-Solids: Mild Delilah Scale-Pyriform Sinus Residue-Solids: None Dysphagia Outcome and Severity Scale: Dysphagia Outcomes and Severity Scale: 5 Mild dysphagia Levels 1 & 2 on the JAQUELIN indicate need for nonoral nutrition. Treatment Treatment was not provided this date. Please reference care plan for treatment goals and details, if indicated. Plan SUBGRADE ROLLER OPERATOR Frequency of Services during current admission: 2-3x/wk SUBGRADE ROLLER OPERATOR Recommendation (Add'l Services): Defer at this time Next Visit Plan:treatment/therapy Additional Referrals: none Discharge Summary Statement If this is the last swallow therapy visit, this serves as the discharge summary. us Chapito Rodriguez NP SUBGRADE ROLLER OPERATOR ORDERABLES Final Result [facility] * COVID-19 Coronavirus RNA Nasopharyngeal (12/21/2024 10:28 AM CDT) Pathologist [facility] COVID-19 RNA Negative Negative [facility] Nasopharyngeal 12/21/2024 10 :28 AM CDT 12/21/2024 11:39 AM CDT Narrative ALEX [facility] - 12/21/2024 12:13 PM CDT Is the patient experiencing any symptoms consistent with COVID (eg. Fever, cough, shortness of breath)?->No What is the reason for testing?->Screening prior to urgent surgery, procedure, delivery, transplant, immune suppressive therapy Interpretive data Testing performed by [facility] ([phone]). This test is performed using the [employer] Xpert Xpress CoV-2 plus assay. This is a real-time RT-PCR test intended for the qualitative detection of nucleic acid from the SARS-CoV-2. This assay has been cleared by the [place] Food and Drug administration. The performance characteristics have been verified by the [facility]. Results must be considered in the clinical context, and a negative result does not rule out infection. Interpretive data last revised 2024. Interpretive data Testing performed by [facility] ([phone]). This test is performed using the [employer] Xpert Xpress CoV-2 plus assay. This is a real-time RT-PCR test intended for the qualitative detection of nucleic acid from the SARS-CoV-2. This assay has been cleared by the [place] Food and Drug administration. The performance characteristics have been verified by the [facility]. Results must be considered in the clinical context, and a negative result does not rule out infection. Interpretive data last revised 2024. Kika Simpson [facility] [facility] MICROBIOLOGY - [facility] ORDERABLES Final Result [facility] Department [place] [address] [facility] * (ABNORMAL) Differential, auto (12/21/2024 10:28 AM CDT) Neutrophil abs 20.93(H) 1.50 - 6.50 K/cumm Imm gran abs 0.95(H) 0.00 - 0.10 K/cumm [facility] Lymphocyte abs 1.22 0.80 - 3.30 K/cumm [facility] Monocyte abs 1.89(H) 0.20 - 0.80 K/cumm [facility] Eosinophil abs 0.57(H) 0.00 - 0.50 K/cumm [facility] Basophil abs 0.12(H) 0.00 - 0.10 K/cumm [facility] Neutrophil pct 81.4 % [facility] Comment: Interpretive Data Percent cell count reference ranges are not reported, since discordance with absolute values may lead to misinterpretation of CBC data. Current Interpretive Data was last revised on 2017. Imm gran pct 3.7 % [facility] Comment: Interpretive Data Percent cell count reference ranges are not reported, since discordance with absolute values may lead to misinterpretation of CBC data. Current Interpretive Data was last revised on 2017. Lymphocyte pct 4.8 % [facility] Comment: Interpretive Data Percent cell count reference ranges are not reported, since discordance with absolute values may lead to misinterpretation of CBC data. Current Interpretive Data was last revised on 2017. Monocyte pct 7.4 % [facility] Comment: Interpretive Data Percent cell count reference ranges are not reported, since discordance with absolute values may lead to misinterpretation of CBC data. Current Interpretive Data was last revised on 2017. Eosinophil pct 2.2 % [facility] Comment: Interpretive Data Percent cell count reference ranges are not reported, since discordance with absolute values may lead to misinterpretation of CBC data. Current Interpretive Data was last revised on 2017. Basophil pct 0.5 % [facility] Comment: Interpretive Data Percent cell count reference ranges are not reported, since discordance with absolute values may lead to misinterpretation of CBC data. Current Interpretive Data was last revised on 2017. Blood 12/21/2024 10:2 8 AM CDT 12/21/2024 11:41 AM CDT us Kika Simpson DNP LAB BLOOD ORDERABLES Fi nal Result [facility] Department [place] [address] * (ABNORMAL) CBC with auto differential (12/21/2024 10:28 AM CDT) Pathologist [facility] WBC 25.68(H) 3.80 - 9.90 K/cumm Hgb 8.9(L) 11.9 - 15.5 g/dL [facility] Hct 27.5(L) 35.6 - 45.5 % [facility] Plt 261 150 - 400 K/cumm [facility] MPV 9.5 9.1 - 12.3 fL [facility] RBC 3.01(L) 3.90 - 5.20 M/cumm [facility] MCV 91.4 81.3 - 96.4 fL [facility] MCH 29.6 27.1 - 33.3 pg [facility] MCHC 32.4 32.3 - 35.7 g/dL [facility] RDW CV 15.8(H) 11.1 - 14.9 % [facility] RDW SD 50.8(H) 35.7 - 48.1 fL [facility] NRBC abs 0.08(H) 0.00 - 0.01 K/cumm [facility] Blood 12/21/2024 10:2 8 AM CDT 12/21/2024 11:41 AM CDT us Kika Simpson [facility] LAB BLOOD ORDERABLES Fi nal Result [facility] Department [place] [address] * (ABNORMAL) aPTT (12/21/2024 10:28 AM CDT) Pathologist [facility] aPTT 27(L) 28 - 38 sec Comment: Interpretive Data Heparin therapeutic range: 66.0 - 100.0 seconds. Range based on correlation with therapeutic heparin activity range of 0.3 - 0.7 Units/mL. Current interpretive data was last revised on 2023. Blood 12/21/2024 10:2 8 AM CDT 12/21/2024 11:36 AM CDT Kika Simpson [facility] LAB BLOOD ORDERABLES Fi nal Result Performing Organization Address [facility] Co de Phone Number [facility] [place] [address] * (ABNORMAL) Protime-INR (12/21/2024 10:28 AM CDT) PT 13.7(H) 9.7 - 13.0 sec INR 1.26(H) 0.90 - 1.20 [facility] Comment: Interpretive data Oral anticoagulant therapeutic ranges: Venous thromboembolism prophylaxis or treatment: 2.0-3.0 CARDIOLOGY Standard range: 2.0-3.0 High-intensity range: 2.5-3.5 Refer to indication-specific guidelines for appropriate target ranges for prosthetic heart valve replacement. Current interpretive data was last revised on 2019. Blood 12/21/2024 10:2 8 AM CDT 12/21/2024 11:36 AM CDT Kika Simpson [facility] LAB BLOOD ORDERABLES Fi nal Result Performing Organization Address [facility] [place] [address] * POCT glucose (12/21/2024 7:38 AM CDT) Glucose, POC 119 70 - 199 mg/dL Blood 12/21/2024 7:38 AM CDT 12/21/2024 7:38 AM CDT Indinaa Mortensen MD LAB POCT ORDERABLES - DEVICE Final Result Performing Organization Address [facility] [place] [address] * Critical Care (12/21/2024 7:17 AM CDT) Narrative Chapiot Rodriguez NP - 12/21/2024 7:17 AM CDT [...] plan with the ICU team and other medical/cycle consultant staff, making frequent assessments and decisions [...] * POCT glucose (12/21/2024 3:56 AM CDT) Glucose, POC 110 70 - 199 mg/dL Blood 12/21/2024 3:56 AM CDT 12/21/2024 3:56 AM CDT us Indiana Mortensen MD LAB POCT ORDERABLES - DEVICE Final Result [facility] Department [place] [address] * (ABNORMAL) CBC without differential (12/21/2024 12:45 AM CDT) WBC 21.05(H) 3.80 - 9.90 K/cumm Hgb 8.4(L) 11.9 - 15.5 g/dL [facility] Hct 25.8(L) 35.6 - 45.5 % [facility] Plt 225 150 - 400 K/cumm [facility] MPV 9.6 9.1 - 12.3 fL [facility] RBC 2.82(L) 3.90 - 5.20 M/cumm [facility] MCV 91.5 81.3 - 96.4 fL [facility] MCH 29.8 27.1 - 33.3 pg [facility] MCHC 32.6 32.3 - 35.7 g/dL [facility] RDW CV 15.6(H) 11.1 - 14.9 % [facility] RDW SD 50.0(H) 35.7 - 48.1 fL [facility] NRBC abs 0.07(H) 0.00 - 0.01 K/cumm [facility] Blood 12/21/2024 12:4 5 AM CDT 12/21/2024 1:10 AM CDT us Ruthann Cox JUNIOR BOOKKEEPER LAB BLOOD ORDERABLES Final Result [facility] Department [place] [address] * eGFR (12/21/2024 12:03 AM CDT) eGFR [...] Inclusion of Race in Diagnosing Kidney Disease, IRASN 2020). The CKD-EPI equation should not be used for patients with unstable renal function and has not been validated in children and those over 70. Current interpretive data was last reviewed 2021. Blood 12/21/2024 12:0 3 AM CDT 12/21/2024 12:19 AM CDT Marian Rodrigues JUNIOR BOOKKEEPER LAB BLOOD ORDERABLES Brenda l Result Performing Organization Address City/[facility]/ZIP Co de Phone Number [facility] [place] [address] * POCT glucose (12/21/2024 12:03 AM CDT) Glucose, POC 128 70 - 199 mg/dL Blood 12/21/2024 12:0 3 AM CDT 12/21/2024 12:03 AM CDT Indiana Mortensen MD LAB POCT ORDERABLES - DEVICE Final Result Performing Organization Address [facility] de Phone Number [facility] [place] [address] * Type and screen (12/21/2024 12:03 AM CDT) Sarah, indirect Negative ABO Rh B Negative [facility] Blood 12/21/2024 12:0 3 AM CDT 12/21/2024 12:21 AM CDT Narrative [facility] - 12/21/2024 1:10 AM CDT Has the patient had Daratumumab or Isatuximab in the past 6 months?->Unknown Kika Simpson [facility] LAB BLOOD BANK TEST ORD ERABLES Final Result Performing Organization Address [facility] Co de Phone Number [facility] [place] [address] * (ABNORMAL) Phosphorus (12/21/2024 12:03 AM CDT) [facility] Phosphorus, pl 5.2(H) 2.3 - 4.5 mg/dL Blood 12/21/2024 12:0 3 AM CDT 12/21/2024 12:19 AM CDT [facility] LAB BLOOD ORDERABLES Fi nal Result Performing Organization Address City/[facility] de Phone Number [facility] [place] [address] * Magnesium (12/21/2024 12:03 AM CDT) [facility] Magnesium 2.0 1.4 - 2.5 mg/dL Blood 12/21/2024 12:0 3 AM CDT 12/21/2024 12:19 AM CDT [facility] LAB BLOOD ORDERABLES Fi nal Result Performing Organization Address [facility] de Phone Number [facility] [place] [address] * (ABNORMAL) Comprehensive metabolic panel (12/21/2024 12:03 AM CDT) [facility] Sodium 143 135 - 145 mmol/L Potassium, pl 3.8 3.3 - 4.9 mmol/L [facility] Chloride 105 97 - 110 mmol/L [facility] CO2 27 22 - 32 mmol/L [facility] Anion gap 11 2 - 15 mmol/L [facility] BUN 34(H) 6 - 25 mg/dL [facility] Creatinine 0.95 0.60 - 1.10 mg/dL [facility] Glucose 125 70 - 199 mg/dL [facility] Comment: Interpretive Data Fasting glucose >/= [...] 2022. Calcium 8.8 8.5 - 10.3 mg/dL [facility] Bilirubin, total 0.6 0.1 - 1.2 mg/dL [facility] Protein, pl 5.4(L) 6.5 - 8.5 g/dL [facility] Albumin 3.2(L) 3.5 - 5.0 g/dL [facility] Alk phos 87 40 - 130 Units/L [facility] ALT 682(H) 7 - 45 Units/L [facility] AST 136(H) 10 - 45 Units/L [facility] Blood 12/21/2024 12:0 3 AM CDT 12/21/2024 12:19 AM CDT us Kika Simpson DNP LAB BLOOD ORDERABLES Fi nal Result [facility] Department [place] [address] * XR Chest 1 View (12/20/2024 8:52 PM CDT) Anatomical Region Laterality Modality Body, Chest N/A Digital Radiogra phy 12/20/2024 8:58 PM CDT Impressions 12/20/2024 8:58 PM CDT Comparison to 12/19/2024. Gastric tube terminates below the diaphragm outside the [id number]. Aortic valve replacement suboptimally evaluated. Transvenous pacer [...] tube terminates below the diaphragm outside the [id number]. Aortic valve replacement suboptimally evaluated. Transvenous pacer [...] plan with the ICU team and other medical/cycle consultant staff, making frequent assessments and decisions [...] documenting in the medical record Ruthann Cox JUNIOR BOOKKEEPER IN CLINIC/BEDSIDE ORD ERABLES Final Result * POCT glucose (12/20/2024 8:01 PM CDT) Glucose, POC 111 70 - 199 mg/dL Blood 12/20/2024 8:01 PM CDT 12/20/2024 8:01 PM CDT Indiana Mortensen MD LAB POCT ORDERABLES - DEVICE Final Result Performing Organization Address City/[facility] Co de Phone Number [facility] [place] [address] * Potassium, whole blood (12/20/2024 3:49 PM CDT) Potassium, bld 4.0 3.3 - 4.9 mmol/L Blood 12/20/2024 3:49 PM CDT 12/20/2024 3:56 PM CDT Angela Cox JUNIOR BOOKKEEPER LAB BLOOD ORDERABLES Final Result Performing Organization Address [facility] Co de Phone Number [facility] [place] [address] * POCT glucose (12/20/2024 3:48 PM CDT) Glucose, POC 134 70 - 199 mg/dL Blood 12/20/2024 3:48 PM CDT 12/20/2024 3:48 PM CDT Indiana Mortensen MD LAB POCT ORDERABLES - DEVICE Final Result Performing Organization Address City/[facility]/ZIP Co de Phone Number [facility] [place] [address] * (ABNORMAL) POCT glucose (12/20/2024 3:44 PM CDT) Glucose, POC 371(H) 70 - 199 mg/dL Blood 12/20/2024 3:44 PM CDT 12/20/2024 3:44 PM CDT Indiana Mortensen MD LAB POCT ORDERABLES - DEVICE Final Result Performing Organization Address City/[facility] Co de Phone Number [facility] [place] [address] * (ABNORMAL) POCT glucose (12/20/2024 3:43 PM CDT) Glucose, POC 364(H) 70 - 199 mg/dL Blood 12/20/2024 3:43 PM CDT 12/20/2024 3:43 PM CDT Indiana Mortensen MD LAB POCT ORDERABLES - DEVICE Final Result Performing Organization Address [facility] de Phone Number [facility] [place] [address] * (ABNORMAL) POCT glucose (12/20/2024 3:42 PM CDT) Glucose, POC 367(H) 70 - 199 mg/dL Blood 12/20/2024 3:42 PM CDT 12/20/2024 3:42 PM CDT Indiana Mortensen MD LAB POCT ORDERABLES - DEVICE Final Result Performing Organization Address [facility] Co de Phone Number [facility] [place] [address] * POCT glucose (12/20/2024 11:11 AM CDT) Glucose, POC 113 70 - 199 mg/dL Blood 12/20/2024 11:1 1 AM CDT 12/20/2024 11:11 AM CDT Indiana Mortensen MD LAB POCT ORDERABLES - DEVICE Final Result Performing Organization Address [facility] de Phone Number [facility] [place] [address] * POCT glucose (12/20/2024 8:12 AM CDT) Glucose, POC 133 70 - 199 mg/dL Blood 12/20/2024 8:12 AM CDT 12/20/2024 8:12 AM CDT Indiana Mortensen MD LAB POCT ORDERABLES - DEVICE Final Result Performing Organization Address [facility] de Phone Number [facility] Department [place] [place] [address] * Potassium, whole blood (12/20/2024 8:00 AM CDT) Potassium, bld 4.2 3.3 - 4.9 mmol/L Blood 12/20/2024 8:00 AM CDT 12/20/2024 8:24 AM CDT Angela Cox NP LAB BLOOD ORDERABLES Final Result Performing Organization Address [facility] Co de Phone Number [facility] [place] [address] * Potassium, whole blood (12/20/2024 6:21 AM CDT) Potassium, bld 4.2 3.3 - 4.9 mmol/L Blood 12/20/2024 6:21 AM CDT 12/20/2024 6:26 AM CDT us Angela Corona Brooke JUNIOR BOOKKEEPER LAB BLOOD ORDERABLES Final Result Performing Organization Address [facility] Co de Phone Number [facility] Department [place] [address] * eGFR (12/19/2024 11:17 PM CDT) eGFR 66 >=60 mL/min/1. 73 m2 Comment: [...] 7 PM CDT 12/19/2024 11:57 PM CDT us Marian Rodrigues JUNIOR BOOKKEEPER LAB BLOOD ORDERABLES Brenda l Result Performing Organization Address City/[facility]/ZIP Co de Phone Number [facility] Department [place] [address] * (ABNORMAL) CBC without differential (12/19/2024 11:17 PM CDT) Pathologist [facility] WBC 16.84(H) 3.80 - 9.90 K/cumm Hgb 7.9(L) 11.9 - 15.5 g/dL [facility] Hct 24.5(L) 35.6 - 45.5 % [facility] Plt 208 150 - 400 K/cumm [facility] MPV 9.5 9.1 - 12.3 fL [facility] RBC 2.66(L) 3.90 - 5.20 M/cumm [facility] MCV 92.1 81.3 - 96.4 fL [facility] MCH 29.7 27.1 - 33.3 pg [facility] MCHC 32.2(L) 32.3 - 35.7 g/dL [facility] RDW CV 15.6(H) 11.1 - 14.9 % [facility] RDW SD 49.4(H) 35.7 - 48.1 fL [facility] NRBC abs 0.14(H) 0.00 - 0.01 K/cumm [facility] Blood 12/19/2024 11:1 7 PM CDT 12/19/2024 11:57 PM CDT [facility] Fi nal Result [facility] Department [place] [place] [address] * Phosphorus (12/19/2024 11:17 PM CDT) Pathologist [facility] Phosphorus, pl 4.4 2.3 - 4.5 mg/dL Blood 12/19/2024 11:1 7 PM CDT 12/19/2024 11:52 PM CDT [facility] LAB BLOOD ORDERABLES Fi nal Result [facility] [place] [address] * Magnesium (12/19/2024 11:17 PM CDT) Pathologist [facility] Magnesium 2.1 1.4 - 2.5 mg/dL Blood 12/19/2024 11:1 7 PM CDT 12/19/2024 11:52 PM CDT Kika Christiansontingly DNP LAB BLOOD ORDERABLES Fi nal Result Performing Organization Address [facility] Co de Phone Number [facility] Department [place] [address] * Ammonia (12/19/2024 11:17 PM CDT) Pathologist [facility] Ammonia 31 <=50 mcmol/L Blood 12/19/2024 11:1 7 PM CDT 12/19/2024 11:46 PM CDT us Chapito Rodriguez JUNIOR BOOKKEEPER LAB BLOOD ORDERABLES Final Re sult Performing Organization Address [facility] de Phone Number [facility] [place] [address] * Vancomycin level random (12/19/2024 11:17 PM CDT) Pathologist [facility] Vancomycin random 6.5 mcg/mL Comment: Interpretive Data No reference ranges have been established for random drug levels. Current Interpretive Data was last revised on 2020. Blood 12/19/2024 11:1 7 PM CDT 12/19/2024 11:52 PM CDT Indiana Mortensen MD LAB BLOOD ORDERABLES Final Re sult Performing Organization Address [facility] Co de Phone Number [facility] [place] [address] * (ABNORMAL) Comprehensive metabolic panel (12/19/2024 11:17 PM CDT) Pathologist [facility] Sodium 141 135 - 145 mmol/L Potassium, pl 3.8 3.3 - 4.9 mmol/L [facility] Chloride 105 97 - 110 mmol/L [facility] CO2 27 22 - 32 mmol/L [facility] Anion gap 9 2 - 15 mmol/L [facility] BUN 32(H) 6 - 25 mg/dL [facility] Creatinine 0.97 0.60 - 1.10 mg/dL [facility] Glucose 123 70 - 199 mg/dL [facility] Comment: Interpretive Data Fasting glucose >/= [...] 2022. Calcium 8.8 8.5 - 10.3 mg/dL [facility] Bilirubin, total 0.8 0.1 - 1.2 mg/dL [facility] Protein, pl 5.5(L) 6.5 - 8.5 g/dL [facility] Albumin 3.1(L) 3.5 - 5.0 g/dL [facility] Alk phos 82 40 - 130 Units/L [facility] ALT 904(H) 7 - 45 Units/L [facility] AST 273(H) 10 - 45 Units/L [facility] Blood 12/19/2024 11:1 7 PM CDT 12/19/2024 11:52 PM CDT us Kika Simpson [facility] LAB BLOOD ORDERABLES Fi nal Result [facility] [place] [address] * POCT glucose (12/19/2024 11:16 PM CDT) [facility] Signature Glucose, POC 136 70 - 199 mg/dL Blood 12/19/2024 11:1 6 PM CDT 12/19/2024 11:16 PM CDT us Indiana Mortensen MD LAB POCT ORDERABLES - DEVICE Final Result Performing Organization Address City/State/[facility] Co de Phone Number [facility] [place] [address] * POCT glucose (12/19/2024 8:12 PM CDT) Glucose, POC 134 70 - 199 mg/dL Blood 12/19/2024 8:12 PM CDT 12/19/2024 8:12 PM CDT Indiana Mortensen MD LAB POCT ORDERABLES - DEVICE Final Result Performing Organization Address [facility] de Phone Number [facility] [place] [address] * XR Chest 1 View (12/19/2024 8:05 [...] signed by: Shala Eldridge M.D. Alecia Acosta NP IMG XR PROCEDURES [...] plan with the ICU team and other medical/cycle consultant staff, making frequent assessments and decisions [...] in the medical record us Ruthann Cox NP IN CLINIC/BEDSIDE ORD ERABLES Final Result * Potassium, whole blood (12/19/2024 6:19 PM CDT) Potassium, bld 3.6 3.3 - 4.9 mmol/L Blood 12/19/2024 6:19 PM CDT 12/19/2024 6:52 PM CDT us Angela Cox JUNIOR BOOKKEEPER LAB BLOOD ORDERABLES Final Result [facility] [place] [address] * (ABNORMAL) Blood gas, arterial (12/19/2024 6:19 PM CDT) pH, Art 7.46(H) 7.35 - 7.45 PCO2, Arterial 34(L) 35 - 45 mmHg [facility] PO2, Arterial 229(H) 83 - 108 mmHg [facility] HCO3 Art (Calculated) 25 20 - 30 mmol/L [facility] BE, art 1 mmol/L [facility] Comment: Interpretive Data No Reference Range Established Current Interpretive Data was last revised on 2017 O2 Sat Art (Measured) 100(H) 90 - 95 % [facility] Blood 12/19/2024 6:19 PM CDT 12/19/2024 6:52 PM CDT Narrative [facility] - 12/19/2024 6:56 PM CDT Respiratory distress or poor pulse ox waveform (currently w/ moving) us Ignacio Brown JUNIOR BOOKKEEPER LAB BLOOD ORDERABLES Final Result Performing Organization Address [facility]/ZIP Co de Phone Number [facility] [place] [address] * POCT glucose (12/19/2024 3:41 PM CDT) Glucose, POC 124 70 - 199 mg/dL Blood 12/19/2024 3:41 PM CDT 12/19/2024 3:41 PM CDT us Indiana Mortensen MD LAB POCT ORDERABLES - DEVICE Final Result [facility] [place] [address] * US Vein Duplex Upper Extremity Bilateral Complete (12/19/2024 12:08 PM CDT) Anatomical Region Laterality Modality Vascular Bilateral Ultrasound 12/19/2024 9:32 AM CDT Narrative 12/19/2024 1:41 PM CDT [facility] - Department of Vascular Surgery, Vascular Laboratory [address] [place] [id number] Upper Extremity Venous Ultrasound Report Patient Name: ADI FLOWERS : 1960 (64y 1m) Study Date: 12/19/2024 9:32:10 AM Gender: F Tech: Location: [id number] Ref Provider: CHAPITO RODRIGUEZ Quality: Technically difficult Order Provider: CHAPITO RODRIGUEZ PROCEDURES: Vascular Report: Venous Duplex imaging was performed bilaterally in the upper extremities. The internal jugular, subclavian and axillary veins were evaluated for patency, spontaneity and phasicity with Doppler, compression and augmentation maneuvers. The brachial, basilic and cephalic veins were also evaluated with compression maneuvers. INDICATIONS: Localized edema. FINDINGS: Performing Analyzer Sales: Adeola Davis RDMS, RVT. Right: Venous Doppler [...] above. Electronically Signed By: Ravinder Buitrago MD ST. [facility] [phone] 12/19/2024 1:38:48 PM CDT Procedure Note Ravinder Buitrago MD - 12/19/2024 [facility] - Department of Vascular Surgery,Vascular Laboratory [address] [place] [address] Upper Extremity Venous Ultrasound Report Patient Name: ADI FLOWERS : 1960 (64y 1m) Study Date: 12/19/2024 9:32:10 AM Gender: F Tech: [place] Location: [id number] Ref Provider: CHAPITO RODRIGUEZ Quality: Technically difficult Order Provider: CHAPITO RODRIGUEZ PROCEDURES: Vascular Report: Venous Duplex imaging was performed bilaterally in the upper extremities.The internal jugular, subclavian and axillary veins were evaluated for patency,spontaneity and phasicity with Doppler, compression and augmentation maneuvers. Thebrachial, basilic and cephalic veins were also evaluated with compression maneuvers. INDICATIONS: Localized edema. FINDINGS: Performing Analyzer Sales: Adeola Davis RDMS, RVT. Right: Venous Doppler [...] above. Electronically Signed By: Ravinder Buitrago MD [facility] [phone] 12/19/2024 1:38:48 PM CDT us Thoa Anna Rodriguez NP IMG US PROCEDURES Final Resul t * US Vein Duplex Lower Extremity Bilateral Complete (12/19/2024 12:07 PM CDT) Anatomical Region Laterality Modality Vascular Bilateral Ultrasound 12/19/2024 9:12 AM CDT Narrative 12/19/2024 1:42 PM CDT [facility] - Department of Vascular Surgery, Vascular Laboratory [address] [place] [address] Lower Extremity Venous Ultrasound Report Patient Name: ADI FLOWERS : 1960 (64y 1m) Study Date: 12/19/2024 9:12:22 AM Gender: F Tech: [place] Location: [id number] Ref Provider: CHAPITO RODRIGUEZ Quality: Technically difficult Order Provider: CHAPITO RODRIGUEZ PROCEDURES: Vascular Report: Venous Duplex imaging was performed bilaterally in the lower extremities. The common femoral, femoral, popliteal, posterior tibial, peroneal veins were evaluated for patency, spontaneity and phasicity with Doppler, compression and augmentation maneuvers. Great saphenous vein proximal at the junction was evaluated with compression maneuvers. INDICATIONS: Intermittent fever. FINDINGS: Performing Analyzer Sales: Adeola Davis RDMS, RVT. Right: Duplex scan reveals dilated vein [...] above. Electronically Signed By: Ravinder Buitrago MD [facility] [phone] 12/19/2024 1:40:18 PM CDT Procedure Note Ravinder Buitrago MD - 12/19/2024 [facility] - Department of Vascular Surgery,Vascular Laboratory [address] [place] [id number] Lower Extremity Venous Ultrasound Report Patient Name: ADI FLOWERS : 1960 (64y 1m) Study Date: 12/19/2024 9:12:22 AM Gender: F Tech: Location: [id number] Ref Provider: CHAPITO RODRIGUEZ Quality: Technically difficult Order Provider: CHAPITO RODRIGUEZ PROCEDURES: Vascular Report: Venous Duplex imaging was performed bilaterally in the lower extremities.The common femoral, femoral, popliteal, posterior tibial, peroneal veins wereevaluated for patency, spontaneity and phasicity with Doppler, compression and augmentationmaneuvers. Great saphenous vein proximal at the junction was evaluated with compressionmaneuvers. INDICATIONS: Intermittent fever. FINDINGS: Performing Analyzer Sales: Adeola Davis RDMS, RVT. Right: Duplex scan reveals dilated vein [...] above. Electronically Signed By: Ravinder Buitrago MD [facility] [phone] 12/19/2024 1:40:18 PM CDT Chapito Rodriguez JUNIOR BOOKKEEPER IMG US PROCEDURES Final Resul t * Potassium, whole blood (12/19/2024 12:06 PM CDT) Potassium, bld 3.9 3.3 - 4.9 mmol/L Blood 12/19/2024 12:0 6 PM CDT 12/19/2024 1:36 PM CDT Angela Cox NP LAB BLOOD ORDERABLES Final Result [facility] Department [place] [address] * (ABNORMAL) Blood gas, arterial (12/19/2024 12:06 PM CDT) pH, Art 7.44 7.35 - 7.45 PCO2, Arterial 35 35 - 45 mmHg [facility] PO2, Arterial 243(H) 83 - 108 mmHg [facility] HCO3 Art (Calculated) 24 20 - 30 mmol/L [facility] BE, art 0 mmol/L [facility] Comment: Interpretive Data No Reference Range Established Current Interpretive Data was last revised on 2017 O2 Sat Art (Measured) 100(H) 90 - 95 % [facility] Blood 12/19/2024 12:0 6 PM CDT 12/19/2024 1:36 PM CDT Narrative [facility] - 12/19/2024 1:44 PM CDT Respiratory distress or poor pulse ox waveform (currently w/ moving) us Ignacio Brown NP LAB BLOOD ORDERABLES Final Result Performing Organization Address City/[facility] Co de Phone Number [facility] Department [place] [place] [address] * POCT glucose (12/19/2024 12:05 PM CDT) Glucose, POC 146 70 - 199 mg/dL Blood 12/19/2024 12:0 5 PM CDT 12/19/2024 12:05 PM CDT Indiana Mortensen MD LAB POCT ORDERABLES - DEVICE Final Result Performing Organization Address City/[facility]/ZIP Co de Phone Number [facility] [place] [place] [address] * XR Chest 1 View (12/19/2024 9:09 [...] it. Electronically signed by: Shala Eldridge M.D. Chapito Rodriguez JUNIOR BOOKKEEPER IMG XR PROCEDURES Final Resul t * POCT glucose (12/19/2024 8:24 AM CDT) Glucose, POC 141 70 - 199 mg/dL Blood 12/19/2024 8:24 AM CDT 12/19/2024 8:24 AM CDT us Indiana Mortensen MD LAB POCT ORDERABLES - DEVICE Final Result [facility] Department [place] [address] * Critical Care (12/19/2024 7:27 AM CDT) [...] plan with the ICU team and other medical/cycle consultant staff, making frequent assessments and decisions [...] Chemistries, Arterial - (12/19/2024 6:58 AM CDT) [facility] pH, Art POC 7.47(H) 7.35 - 7.45 pCO2, Art POC 31(L) 35 - 45 mmHg [facility] pO2, Art POC 84 83 - 108 mmHg [facility] Na, POC 140 135 - 145 mmol/L [facility] K POC 3.4 3.3 - 4.9 mmol/L [facility] Comment: Interpretive Data Not all point of care methods assess for hemolysis. Confirm with instrument and retest K+ if not consistent with clinical signs and symptoms. Current Interpretive Data was last revised on 2023. Cl, POC 111(H) 97 - 110 mmol/L [facility] Ionized Ca, POC 4.51 4.50 - 5.10 mg/dL [facility] Glucose, POC 140 70 - 199 mg/dL [facility] Lactate POC 1.0 0.7 - 2.0 mmol/L [facility] SO2 (chandra) arterial 98(H) 90 - 95 % [facility] Base excess, POC -0.8 mmol/L [facility] HCO3, Art POC 23 20 - 30 mmol/L [facility] Hct, POC 24.0(L) 36.3 - 45.3 % [facility] Total Hb, POC 8.1(L) 11.9 - 15.5 g/dL [facility] Blood 12/19/2024 6:58 AM CDT 12/19/2024 6:58 AM CDT Indiana Mortensen MD LAB POCT ORDERABLES - DEVICE Final Result Performing Organization Address City/[facility]/ZIP Co de Phone Number [facility] [place] [address] * POCT glucose (12/19/2024 4:21 AM CDT) Glucose, POC 148 70 - 199 mg/dL Blood 12/19/2024 4:21 AM CDT 12/19/2024 4:21 AM CDT Indiana Mortensen MD LAB POCT ORDERABLES - DEVICE Final Result [facility] [place] [address] * Potassium, whole blood (12/18/2024 11:54 PM CDT) Potassium, bld 4.3 3.3 - 4.9 mmol/L Blood 12/18/2024 11:5 4 PM CDT 12/19/2024 12:07 AM CDT Angela Corona Brooke JUNIOR BOOKKEEPER LAB BLOOD ORDERABLES Final Result Performing Organization Address City/[facility] Co de Phone Number [facility] Department [place] [address] * eGFR (12/18/2024 11:54 PM CDT) eGFR [...] CDT 12/19/2024 12:10 AM CDT Marian Rodrigues JUNIOR BOOKKEEPER LAB BLOOD ORDERABLES Brenda l Result Performing Organization Address City/[facility]/ZIP Co de Phone Number [facility] Department [place] [address] * (ABNORMAL) CBC without differential (12/18/2024 11:54 PM CDT) WBC 20.35(H) 3.80 - 9.90 K/cumm Hgb 7.8(L) 11.9 - 15.5 g/dL [facility] Hct 23.3(L) 35.6 - 45.5 % [facility] Plt 211 150 - 400 K/cumm [facility] MPV 9.4 9.1 - 12.3 fL [facility] RBC 2.58(L) 3.90 - 5.20 M/cumm [facility] MCV 90.3 81.3 - 96.4 fL [facility] MCH 30.2 27.1 - 33.3 pg [facility] MCHC 33.5 32.3 - 35.7 g/dL [facility] RDW CV 15.0(H) 11.1 - 14.9 % [facility] RDW SD 46.8 35.7 - 48.1 fL [facility] NRBC abs 0.26(H) 0.00 - 0.01 K/cumm [facility] Blood 12/18/2024 11:5 4 PM CDT 12/19/2024 12:11 AM CDT us Kika Simpson DNP LAB BLOOD ORDERABLES Fi nal Result [facility] Department [place] [address] * Type and screen (12/18/2024 11:54 PM CDT) ABO Rh B Negative Sarah, indirect Negative [facility] Blood 12/18/2024 11:5 4 PM CDT 12/19/2024 12:14 AM CDT Narrative [facility] - 12/19/2024 1:16 AM CDT Has the patient had Daratumumab or Isatuximab in the past 6 months?->Unknown us Indiana Mortensen MD LAB BLOOD BANK TEST ORDERABLE S Final Result [facility] [place] [address] * Phosphorus (12/18/2024 11:54 PM CDT) Phosphorus, pl 3.0 2.3 - 4.5 mg/dL Blood 12/18/2024 11:5 4 PM CDT 12/19/2024 12:10 AM CDT [facility] LAB BLOOD ORDERABLES Fi nal Result Performing Organization Address City/[facility] de Phone Number [facility] [place] [address] * Magnesium (12/18/2024 11:54 PM CDT) Pathologist [facility] Magnesium 2.0 1.4 - 2.5 mg/dL Blood 12/18/2024 11:5 4 PM CDT 12/19/2024 12:10 AM CDT [facility] LAB BLOOD ORDERABLES Fi nal Result Performing Organization Address [facility] de Phone Number [facility] [place] [address] * (ABNORMAL) Blood gas, arterial (12/18/2024 11:54 PM CDT) Pathologist [facility] pH, Art 7.46(H) 7.35 - 7.45 PCO2, Arterial 30(L) 35 - 45 mmHg [facility] PO2, Arterial 174(H) 83 - 108 mmHg [facility] HCO3 Art (Calculated) 22 20 - 30 mmol/L [facility] BE, art -2 mmol/L [facility] Comment: Interpretive Data No Reference Range Established Current Interpretive Data was last revised on 2017 O2 Sat Art (Measured) 100(H) 90 - 95 % [facility] Blood 12/18/2024 11:5 4 PM CDT 12/19/2024 12:07 AM CDT Narrative [facility] - 12/19/2024 12:12 AM CDT Respiratory distress or poor pulse ox waveform (currently w/ moving) us Ignacio Brown NP LAB BLOOD ORDERABLES Final Result [facility] Department [place] [address] * (ABNORMAL) Comprehensive metabolic panel (12/18/2024 11:54 PM CDT) Sodium 140 135 - 145 mmol/L Potassium, pl 4.3 3.3 - 4.9 mmol/L [facility] Chloride 108 97 - 110 mmol/L [facility] CO2 23 22 - 32 mmol/L [facility] Anion gap 9 2 - 15 mmol/L [facility] BUN 33(H) 6 - 25 mg/dL [facility] Creatinine 0.94 0.60 - 1.10 mg/dL [facility] Glucose 148 70 - 199 mg/dL [facility] Comment: Interpretive Data Fasting glucose >/= [...] 2022. Calcium 8.2(L) 8.5 - 10.3 mg/dL [facility] Bilirubin, total 0.6 0.1 - 1.2 mg/dL [facility] Protein, pl 5.4(L) 6.5 - 8.5 g/dL [facility] Albumin 3.0(L) 3.5 - 5.0 g/dL [facility] Alk phos 84 40 - 130 Units/L [facility] ALT 1,143(H) 7 - 45 Units/L [facility] AST 576(H) 10 - 45 Units/L [facility] Blood 12/18/2024 11:5 4 PM CDT 12/19/2024 12:10 AM CDT us Kika Simpson DNP LAB BLOOD ORDERABLES Fi nal Result Performing Organization Address [facility] Co de Phone Number [facility] [place] [address] * POCT glucose (12/18/2024 11:53 PM CDT) Glucose, POC 157 70 - 199 mg/dL Blood 12/18/2024 11:5 3 PM CDT 12/18/2024 11:53 PM CDT us Indiana Mortensen MD LAB POCT ORDERABLES - DEVICE Final Result Performing Organization Address [facility] de Phone Number [facility] [place] [address] * Potassium, whole blood (12/18/2024 8:25 PM CDT) Potassium, bld 3.8 3.3 - 4.9 mmol/L Blood 12/18/2024 8:25 PM CDT 12/18/2024 8:34 PM CDT us Angela Cox JUNIOR BOOKKEEPER LAB BLOOD ORDERABLES Final Result Performing Organization Address [facility] Co de Phone Number [facility] [place] [address] * POCT glucose (12/18/2024 8:21 PM CDT) Glucose, POC 141 70 - 199 mg/dL Blood 12/18/2024 8:21 PM CDT 12/18/2024 8:21 PM CDT us Indiana Mortensen MD LAB POCT ORDERABLES - DEVICE Final Result [facility] Department [place] [address] * XR Chest 1 View (12/18/2024 7:38 [...] it. Electronically signed by: Shala Eldridge M.D. Alecia Acosta JUNIOR BOOKKEEPER IMG XR PROCEDURES Final Result * Critical [...] plan with the ICU team and other medical/cycle consultant staff, making frequent assessments and decisions [...] spent time documenting in the medical record Ignacio Brown JUNIOR BOOKKEEPER IN CLINIC/BEDSIDE ORDERABL ES Final Result * Aerobic and anaerobic culture and gram stain Pleural fluid Pleural (12/18/2024 4:19 PM CDT) Direct Specimen Exam Stain: Cytospin Gram stain shows: Few polymorphonuclear leukocytes seen. No organisms seen. Report Final Report: No growth [facility] Pleural fluid (Pleural) 12/18/2024 4:19 PM CDT 12/18/2024 5:20 PM CDT Narrative [facility] - 12/24/2024 1:41 PM CDT Fluid specimen received. Testing performed by [facility] Microbiology Laboratory ([phone]) Specimens submitted from normally sterile body sites [...] data was last revised on 2019. Josr Taco AUGUSTIN LAB MICROBIOLOGY - GENER AL ORDERABLES Final Result [facility] Department [place] [address] * Protein, body fluid (12/18/2024 4:19 PM CDT) Specimen type, fld Pleural Body site, fld Pleural fluid, left [facility] Protein, fld 2.0 g/dL [facility] Comment: The above specimen type is [...] AND STOO LS ORDERABLES Final Result [facility] Department [place] [address] * Lactate dehydrogenase, body fluid (12/18/2024 4:19 PM CDT) Specimen type, fld Pleural Body site, fld Pleural fluid, left [facility] LD, fld 323 Units/L [facility] Comment: The above specimen type is [...] Press. 2018. Chapter 43, Body Fluids, p. 924 Current Interpretive Data was last revised 2019. Fluid 12/18/2024 4:19 PM CDT 12/18/2024 4:47 PM CDT us Josr AUGUSTIN LAB BODY FLUIDS AND STOO LS ORDERABLES Final Result Performing Organization Address City/[facility]/ZIP Co de Phone Number [facility] Department [place] [address] * Transfuse RBC (12/18/2024 4:06 PM CDT) Blood us Josr AUGUSTIN BLOOD TRANSFUSION ORDERA BLES Edited Result - Final [facility] [place] [address] * Potassium, whole blood (12/18/2024 4:00 PM CDT) Potassium, bld 3.4 3.3 - 4.9 mmol/L Blood 12/18/2024 4:00 PM CDT 12/18/2024 4:06 PM CDT Angela Cox JUNIOR BOOKKEEPER LAB BLOOD ORDERABLES Final Result Performing Organization Address [facility] Co de Phone Number [facility] Department [place] [address] * POCT glucose (12/18/2024 3:58 PM CDT) Glucose, POC 124 70 - 199 mg/dL Blood 12/18/2024 3:58 PM CDT 12/18/2024 3:58 PM CDT Indiana Mortensen MD LAB POCT ORDERABLES - DEVICE Final Result Performing Organization Address [facility] de Phone Number [facility] Department [place] [address] * MRSA Only (Staphylococcus aureus) Culture Nasal (12/18/2024 2:22 PM CDT) Report Final Report: Negative Nasal 12/18/2024 2:22 PM CDT 12/18/2024 3:31 PM CDT Narrative [facility] - 12/19/2024 5:03 PM CDT Testing performed by [facility] Microbiology Laboratory ([phone]). Marian Rodrigues NP LAB MICROBIOLOGY - GENERA L ORDERABLES Final Result Performing Organization Address [facility] Co de Phone Number [facility] Department [place] [address] * (ABNORMAL) POC Blood Gas and Chemistries, Arterial - (12/18/2024 11:03 AM CDT) pH, Art POC 7.41 7.35 - 7.45 pCO2, Art POC 29(L) 35 - 45 mmHg [facility] pO2, Art POC 83 83 - 108 mmHg [facility] Na, POC 139 135 - 145 mmol/L [facility] K POC 4.0 3.3 - 4.9 mmol/L [facility] Comment: Interpretive Data Not all point of care methods assess for hemolysis. Confirm with instrument and retest K+ if not consistent with clinical signs and symptoms. Current Interpretive Data was last revised on 2023. Cl, POC 110 97 - 110 mmol/L [facility] Ionized Ca, POC 4.56 4.50 - 5.10 mg/dL [facility] Glucose, POC 143 70 - 199 mg/dL [facility] Lactate POC 3.3(H) 0.7 - 2.0 mmol/L [facility] SO2 (chandra) arterial 97(H) 90 - 95 % [facility] Base excess, POC -5.5 mmol/L [facility] HCO3, Art POC 18(L) 20 - 30 mmol/L [facility] Hct, POC 23.0(L) 36.3 - 45.3 % [facility] Total Hb, POC 7.8(L) 11.9 - 15.5 g/dL [facility] Blood 12/18/2024 11:0 3 AM CDT 12/18/2024 11:03 AM CDT us Indiana Mortensen MD LAB POCT ORDERABLES - DEVICE Final Result [facility] Department [place] [address] * XR Chest 1 View (12/18/2024 10:23 [...] Hudson DNP - 12/18/2024 9:33 AM CDT [facility] Interventional Pulmonary Patient Name: Adi Flowers Procedure Date: 12/18/2024 9:33 AM Date of : 1960 Admit Type: Inpatient Age: 64 Room: [address] [place] [address] Gender: Female Note Status: Finalized Procedure: L ECHO Chest, L Thoracentesis with catheter Indications: Pleural effusion Providers: Marian Hudson ANP Referring MD: Medicines: Lidocaine 1% instilled [...] X-ray post-procedure. Electronically signed by Marian Hudson NP-C Marian Hudson, JORDI 12/18/2024 11:10:19 AM Number of Addenda: 0 Note Initiated On: 12/18/2024 10:01 AM Marian Hudson DNP IN CLINIC/BEDSIDE ORDER ROSY Final Result * Prepare RBC: 1 Units (12/18/2024 9:00 AM CDT) Pathologist [facility] Product code [id number] Unit Number [id number] [facility] Product Blood Type BNEG [facility] Dispense Status PRESUMED TRANSFUSED [facility] Blood 12/18/2024 9:00 AM CDT 12/18/2024 8:59 AM CDT Narrative [facility] - 12/19/2024 12:56 AM CDT Are special requirements needed? (All products are leukoreduced and CMV- safe)- >No Date required:-[id number] LRRBC # of [id number] Reasons:-Cardiovascular disease, Hgb <8 g/dL} Josr AUGUSTIN BLOOD BANK PRODUCT ORDER ROSY Final Result Performing Organization Address [facility] Co de Phone Number [facility] Department [place] [address] * POCT glucose (12/18/2024 7:56 AM CDT) Pathologist [facility] Glucose, POC 148 70 - 199 mg/dL Blood 12/18/2024 7:56 AM CDT 12/18/2024 7:56 AM CDT Indiana Mortensen MD LAB POCT ORDERABLES - DEVICE Final Result Performing Organization Address [facility] Co de Phone Number [facility] Department [place] [address] * Critical Care (12/18/2024 7:39 AM CDT) [...] plan with the ICU team and other medical/cycle consultant staff, making frequent assessments and decisions [...] BLOOD ORDERABLES Final Result Performing Organization Address [facility] de Phone Number [facility] [place] [address] * (ABNORMAL) aPTT (12/18/2024 1:20 AM CDT) [...] BLOOD ORDERABLES Final Result Performing Organization Address [facility] [place] [address] * (ABNORMAL) Protime-INR (12/18/2024 1:20 AM CDT) PT 14.3(H) 9.7 - 13.0 sec INR 1.32(H) 0.90 - 1.20 [facility] Comment: Interpretive data Oral anticoagulant therapeutic ranges: Venous thromboembolism prophylaxis or treatment: 2.0-3.0 CARDIOLOGY Standard range: 2.0-3.0 High-intensity range: 2.5-3.5 Refer to indication-specific guidelines for appropriate target ranges for prosthetic heart valve replacement. Current interpretive data was last revised on 2019. Blood 12/18/2024 1:20 AM CDT 12/18/2024 1:40 AM CDT Ignacio Brown NP LAB BLOOD ORDERABLES Final Result Performing Organization Address [facility] de Phone Number [facility] [place] [address] * (ABNORMAL) CBC without differential (12/18/2024 1:20 AM CDT) WBC 23.30(H) 3.80 - 9.90 K/cumm Hgb 7.2(L) 11.9 - 15.5 g/dL [facility] Hct 21.1(L) 35.6 - 45.5 % [facility] Plt 233 150 - 400 K/cumm [facility] MPV 9.4 9.1 - 12.3 fL [facility] RBC 2.40(L) 3.90 - 5.20 M/cumm [facility] MCV 87.9 81.3 - 96.4 fL [facility] MCH 30.0 27.1 - 33.3 pg [facility] MCHC 34.1 32.3 - 35.7 g/dL [facility] RDW CV 14.5 11.1 - 14.9 % [facility] RDW SD 45.7 35.7 - 48.1 fL [facility] NRBC abs 0.17(H) 0.00 - 0.01 K/cumm [facility] Blood 12/18/2024 1:20 AM CDT 12/18/2024 1:34 AM CDT Ignacio Brown NP LAB BLOOD ORDERABLES Final Result [facility] Department of [place] [address] * Infection Prevention Justice auris PCR, surveillance Axilla/Groin (12/18/2024 12:42 AM CDT) Pathologist [facility] Justice auris DNA Not Detected Not Detected [facility] Comment: Interpretive Data Testing performed by [facility] Molecular Infectious Disease Laboratory using the Stacie shirin 6800 Justice auris assay. This assay detects DNA from Justice auris using Real-Time PCR. This assay is laboratory developed and is not cleared by the [place] Food and Drug Administration. The performance characteristics have been verified by the [facility] Molecular Infectious Disease Laboratory. Axilla/Groin 12/18/2024 12:4 2 AM CDT 12/18/2024 1:50 AM CDT Narrative [facility] - 12/18/2024 12:42 PM CDT Order placed by OPA due to ring surveillance. Instant Order Generic Provider LAB MICROBIOLOGY - GENERAL ORDERABLES Final Result Performing Organization Address [facility] Co de Phone Number [facility] Department [place] [address] [facility] * eGFR (12/18/2024 12:42 AM CDT) [...] 2 AM CDT 12/18/2024 12:54 AM CDT Marian Rodrigues JUNIOR BOOKKEEPER LAB BLOOD ORDERABLES Brenda l Result Performing Organization Address [facility]/ZIP Co de Phone Number [facility] Department [place] [address] * (ABNORMAL) CBC without differential (12/18/2024 12:42 AM CDT) WBC 21.90(H) 3.80 - 9.90 K/cumm Hgb 6.5(L) 11.9 - 15.5 g/dL [facility] Hct 19.7(L) 35.6 - 45.5 % [facility] Plt 145(L) 150 - 400 K/cumm [facility] MPV 10.3 9.1 - 12.3 fL [facility] RBC 2.18(L) 3.90 - 5.20 M/cumm [facility] MCV 90.4 81.3 - 96.4 fL [facility] MCH 29.8 27.1 - 33.3 pg [facility] MCHC 33.0 32.3 - 35.7 g/dL [facility] RDW CV 14.4 11.1 - 14.9 % [facility] RDW SD 45.6 35.7 - 48.1 fL [facility] NRBC abs 0.22(H) 0.00 - 0.01 K/cumm [facility] Blood 12/18/2024 12:4 2 AM CDT 12/18/2024 12:54 AM CDT Kika Simpson [facility] LAB BLOOD ORDERABLES Fi nal Result [facility] Department [place] [place] [address] * Phosphorus (12/18/2024 12:42 AM CDT) [facility] Phosphorus, pl 2.9 2.3 - 4.5 mg/dL Blood 12/18/2024 12:4 2 AM CDT 12/18/2024 12:54 AM CDT [facility] BLOOD ORDERABLES Fi nal Result [facility] [place] [address] * Magnesium (12/18/2024 12:42 AM CDT) [facility] Magnesium 2.2 1.4 - 2.5 mg/dL Blood 12/18/2024 12:4 2 AM CDT 12/18/2024 12:54 AM CDT us Kika Simpson DNP LAB BLOOD ORDERABLES Fi nal Result [facility] Department [place] [address] * (ABNORMAL) Comprehensive metabolic panel (12/18/2024 12:42 AM CDT) Pathologist [facility] Sodium 138 135 - 145 mmol/L Potassium, pl 3.8 3.3 - 4.9 mmol/L [facility] Chloride 110 97 - 110 mmol/L [facility] CO2 19(L) 22 - 32 mmol/L [facility] Anion gap 9 2 - 15 mmol/L [facility] BUN 33(H) 6 - 25 mg/dL [facility] Creatinine 0.93 0.60 - 1.10 mg/dL [facility] Glucose 132 70 - 199 mg/dL [facility] Comment: Interpretive Data Fasting glucose >/= [...] 2022. Calcium 7.2(L) 8.5 - 10.3 mg/dL [facility] Bilirubin, total 0.4 0.1 - 1.2 mg/dL [facility] Protein, pl 4.9(L) 6.5 - 8.5 g/dL [facility] Albumin 2.7(L) 3.5 - 5.0 g/dL [facility] Alk phos 77 40 - 130 Units/L [facility] ALT 1,266(H) 7 - 45 Units/L [facility] AST 880(H) 10 - 45 Units/L [facility] Blood 12/18/2024 12:4 2 AM CDT 12/18/2024 12:54 AM CDT us Kika Simpson DNP LAB BLOOD ORDERABLES Fi nal Result Performing Organization Address [facility] de Phone Number [facility] Department [place] [address] * (ABNORMAL) Blood gas, arterial (12/17/2024 9:40 PM CDT) pH, Art 7.41 7.35 - 7.45 PCO2, Arterial 32(L) 35 - 45 mmHg [facility] PO2, Arterial 162(H) 83 - 108 mmHg [facility] HCO3 Art (Calculated) 21 20 - 30 mmol/L [facility] BE, art -4 mmol/L [facility] Comment: Interpretive Data No Reference Range Established Current Interpretive Data was last revised on 2017 O2 Sat Art (Measured) 100(H) 90 - 95 % [facility] Blood 12/17/2024 9:40 PM CDT 12/17/2024 9:46 PM CDT us Ignacio Brown JUNIOR BOOKKEEPER LAB BLOOD ORDERABLES Final Result Performing Organization Address [facility] Co de Phone Number [facility] Department [place] [address] * POCT glucose (12/17/2024 8:50 PM CDT) Glucose, POC 135 70 - 199 mg/dL Blood 12/17/2024 8:50 PM CDT 12/17/2024 8:50 PM CDT us Indiana Mortensen MD LAB POCT ORDERABLES - DEVICE Final Result [facility] Department [place] [address] * XR Chest 1 View (12/17/2024 7:10 [...] signed by: Shelton Echavarria M.D. Alecia Acosta JUNIOR BOOKKEEPER IMG XR PROCEDURES Final Result * Critical [...] plan with the ICU team and other medical/cycle consultant staff, making frequent assessments and decisions [...] LAB POCT ORDERABLES - DEVICE Final Result [facility] Department [place] [address] * Potassium, whole blood (12/17/2024 11:54 AM CDT) Potassium, bld 4.5 3.3 - 4.9 mmol/L Blood 12/17/2024 11:5 4 AM CDT 12/17/2024 12:03 PM CDT us Ignacio Brown NP LAB BLOOD ORDERABLES Final Result [facility] [place] [address] * POCT glucose (12/17/2024 11:54 AM CDT) Glucose, POC 134 70 - 199 mg/dL Blood 12/17/2024 11:5 4 AM CDT 12/17/2024 11:54 AM CDT Indiana Mortensen MD LAB POCT ORDERABLES - DEVICE Final Result Performing Organization Address [facility] Co de Phone Number [facility] [place] [address] * (ABNORMAL) Blood gas, arterial (12/17/2024 11:54 AM CDT) pH, Art 7.39 7.35 - 7.45 PCO2, Arterial 32(L) 35 - 45 mmHg [facility] PO2, Arterial 157(H) 83 - 108 mmHg [facility] HCO3 Art (Calculated) 20 20 - 30 mmol/L [facility] BE, art -5 mmol/L [facility] Comment: Interpretive Data No Reference Range Established Current Interpretive Data was last revised on 2017 O2 Sat Art (Measured) 100(H) 90 - 95 % [facility] Blood 12/17/2024 11:5 4 AM CDT 12/17/2024 12:03 PM CDT Indiana Mortensen MD LAB BLOOD ORDERABLES Final Re sult Performing Organization Address [facility] Co de Phone Number [facility] [place] [address] * XR Abdomen 1 View AP (12/17/2024 [...] POCT ORDERABLES - DEVICE Final Result [facility] Department [place] [address] * Critical Care (12/17/2024 7:19 AM CDT) [...] plan with the ICU team and other medical/cycle consultant staff, making frequent assessments and decisions [...] Blood gas, arterial (12/17/2024 5:31 AM CDT) [facility] pH, Art 7.38 7.35 - 7.45 PCO2, Arterial 31(L) 35 - 45 mmHg [facility] PO2, Arterial 157(H) 83 - 108 mmHg [facility] HCO3 Art (Calculated) 19(L) 20 - 30 mmol/L [facility] BE, art -6 mmol/L [facility] Comment: Interpretive Data No Reference Range Established Current Interpretive Data was last revised on 2017 O2 Sat Art (Measured) 100(H) 90 - 95 % [facility] Blood 12/17/2024 5:31 AM CDT 12/17/2024 5:51 AM CDT us Ignacio Brown NP LAB BLOOD ORDERABLES Final Result [facility] [place] [address] * Potassium, whole blood (12/17/2024 5:04 AM CDT) [facility] Potassium, bld 4.7 3.3 - 4.9 mmol/L Blood 12/17/2024 5:04 AM CDT 12/17/2024 5:24 AM CDT us Ignacio Brown JUNIOR BOOKKEEPER LAB BLOOD ORDERABLES Final Result Performing Organization Address [facility] [place] [address] * Vancomycin level random (12/17/2024 1:48 AM CDT) [facility] Vancomycin random 10.5 mcg/mL Comment: Interpretive Data No reference ranges have been established for random drug levels. Current Interpretive Data was last revised on 2020. Blood 12/17/2024 1:48 AM CDT 12/17/2024 2:11 AM CDT us Sepideh Rees JUNIOR BOOKKEEPER LAB BLOOD ORDERABLES Final Result Performing Organization Address [facility] de Phone Number [facility] Department [place] [address] * (ABNORMAL) eGFR (12/17/2024 12:12 AM CDT) [facility] eGFR 35(L) >=60 mL/min/1. 73 m2 Comment: [...] BLOOD ORDERABLES Final Result Performing Organization Address [facility] de Phone Number [facility] [place] [employer] [place] [address] * (ABNORMAL) Protime-INR (12/17/2024 12:12 AM CDT) PT 15.0(H) 9.7 - 13.0 sec INR 1.38(H) 0.90 - 1.20 [facility] Comment: Interpretive data Oral anticoagulant therapeutic ranges: Venous thromboembolism prophylaxis or treatment: 2.0-3.0 CARDIOLOGY Standard range: 2.0-3.0 High-intensity range: 2.5-3.5 Refer to indication-specific guidelines for appropriate target ranges for prosthetic heart valve replacement. Current interpretive data was last revised on 2019. Blood 12/17/2024 12:1 2 AM CDT 12/17/2024 12:43 AM CDT Ignacio Brown NP LAB BLOOD ORDERABLES Final Result Performing Organization Address [facility] de Phone Number [facility] [place] [address] * (ABNORMAL) CBC without differential (12/17/2024 12:12 AM CDT) WBC 22.88(H) 3.80 - 9.90 K/cumm Hgb 8.0(L) 11.9 - 15.5 g/dL [facility] Hct 22.8(L) 35.6 - 45.5 % [facility] Plt 275 150 - 400 K/cumm [facility] MPV 9.2 9.1 - 12.3 fL [facility] RBC 2.61(L) 3.90 - 5.20 M/cumm [facility] MCV 87.4 81.3 - 96.4 fL [facility] MCH 30.7 27.1 - 33.3 pg [facility] MCHC 35.1 32.3 - 35.7 g/dL [facility] RDW CV 14.1 11.1 - 14.9 % [facility] RDW SD 44.1 35.7 - 48.1 fL [facility] NRBC abs 0.25(H) 0.00 - 0.01 K/cumm [facility] Blood 12/17/2024 12:1 2 AM CDT 12/17/2024 12:36 AM CDT [facility] LAB BLOOD ORDERABLES Fi nal Result Performing Organization Address City/[facility]/ZIP Co de Phone Number [facility] Department [place] [address] * (ABNORMAL) Phosphorus (12/17/2024 12:12 AM CDT) [facility] Phosphorus, pl 6.4(H) 2.3 - 4.5 mg/dL Blood 12/17/2024 12:1 2 AM CDT 12/17/2024 12:35 AM CDT Kika Alessandra [facility] LAB BLOOD ORDERABLES Fi nal Result [facility] Department [place] [address] * (ABNORMAL) Magnesium (12/17/2024 12:12 AM CDT) [facility] Magnesium 2.6(H) 1.4 - 2.5 mg/dL Blood 12/17/2024 12:1 2 AM CDT 12/17/2024 12:35 AM CDT us Kika Simpson DNP LAB BLOOD ORDERABLES Fi nal Result Performing Organization Address City/[facility]/ZIP Co de Phone Number [facility] [place] [address] * (ABNORMAL) Hepatic function panel (12/17/2024 12:12 AM CDT) [facility] Bilirubin, total 0.7 0.1 - 1.2 mg/dL Bilirubin, direct 0.4(H) 0.1 - 0.3 mg/dL [facility] Protein, pl 5.5(L) 6.5 - 8.5 g/dL [facility] Albumin 3.0(L) 3.5 - 5.0 g/dL [facility] Alk phos 82 40 - 130 Units/L [facility] ALT 1,791(H) 7 - 45 Units/L [facility] Comment:Repeated on Dilution AST 2,012(H) 10 - 45 Units/L [facility] Comment:Repeated on Dilution Blood 12/17/2024 12:1 2 AM CDT 12/17/2024 12:35 AM CDT us Ignacio Brown JUNIOR BOOKKEEPER LAB BLOOD ORDERABLES Final Result Performing Organization Address [facility] Co de Phone Number [facility] Department [place] [address] * (ABNORMAL) Basic metabolic panel (12/17/2024 12:12 AM CDT) [facility] Sodium 135 135 - 145 mmol/L Potassium, pl 5.4(H) 3.3 - 4.9 mmol/L [facility] Chloride 104 97 - 110 mmol/L [facility] CO2 20(L) 22 - 32 mmol/L [facility] Anion gap 11 2 - 15 mmol/L [facility] BUN 32(H) 6 - 25 mg/dL [facility] Creatinine 1.65(H) 0.60 - 1.10 mg/dL [facility] Glucose 120 70 - 199 mg/dL [facility] Comment: Interpretive Data Fasting glucose >/= [...] 2022. Calcium 8.2(L) 8.5 - 10.3 mg/dL [facility] Blood 12/17/2024 12:1 2 AM CDT 12/17/2024 12:35 AM CDT us Ignacio Brown NP LAB BLOOD ORDERABLES Final Result [facility] Department [place] [place] [address] * (ABNORMAL) Potassium, whole blood (12/16/2024 9:30 PM CDT) Pathologist [facility] Potassium, bld 5.2(H) 3.3 - 4.9 mmol/L Blood 12/16/2024 9:30 PM CDT 12/16/2024 9:40 PM CDT Ignacio Brown NP LAB BLOOD ORDERABLES Final Result [facility] [place] [address] * (ABNORMAL) eGFR (12/16/2024 9:30 PM CDT) Pathologist [facility] eGFR 34(L) >=60 mL/min/1. 73 m2 Comment: [...] Brown NP LAB BLOOD ORDERABLES Final Result [facility] Department [place] [address] * (ABNORMAL) Blood gas, arterial (12/16/2024 9:30 PM CDT) pH, Art 7.34(L) 7.35 - 7.45 PCO2, Arterial 34(L) 35 - 45 mmHg [facility] PO2, Arterial 176(H) 83 - 108 mmHg [facility] HCO3 Art (Calculated) 19(L) 20 - 30 mmol/L [facility] BE, art -6 mmol/L [facility] Comment: Interpretive Data No Reference Range Established Current Interpretive Data was last revised on 2017 O2 Sat Art (Measured) 100(H) 90 - 95 % [facility] Blood 12/16/2024 9:30 PM CDT 12/16/2024 9:40 PM CDT us Ignacio Brown NP LAB BLOOD ORDERABLES Final Result [facility] [place] [address] * (ABNORMAL) Basic metabolic panel (12/16/2024 9:30 PM CDT) Sodium 136 135 - 145 mmol/L Potassium, pl 5.5(H) 3.3 - 4.9 mmol/L [facility] Chloride 105 97 - 110 mmol/L [facility] CO2 20(L) 22 - 32 mmol/L [facility] Anion gap 11 2 - 15 mmol/L [facility] BUN 30(H) 6 - 25 mg/dL [facility] Creatinine 1.69(H) 0.60 - 1.10 mg/dL [facility] Glucose 120 70 - 199 mg/dL [facility] Comment: Interpretive Data Fasting glucose >/= [...] 2022. Calcium 8.3(L) 8.5 - 10.3 mg/dL [facility] Blood 12/16/2024 9:30 PM CDT 12/16/2024 9:43 PM CDT us Ignacio Brown NP LAB BLOOD ORDERABLES Final Result [facility] Department [place] [address] * POCT glucose (12/16/2024 8:39 PM CDT) Glucose, POC 122 70 - 199 mg/dL Blood 12/16/2024 8:39 PM CDT 12/16/2024 8:39 PM CDT us Indiana Mortensen MD LAB POCT ORDERABLES - DEVICE Final Result [facility] Department [place] [address] * XR Chest 1 View (12/16/2024 7:20 [...] by: Elliott Davis M.D. us Alecia Acosta JUNIOR BOOKKEEPER IMG XR PROCEDURES Final Result * Critical [...] plan with the ICU team and other medical/cycle consultant staff, making frequent assessments and decisions [...] spent time documenting in the medical record Ignacio Brown JUNIOR BOOKKEEPER IN CLINIC/BEDSIDE ORDERABL ES Final Result * (ABNORMAL) Potassium, whole blood (12/16/2024 5:10 PM CDT) Potassium, bld 5.3(H) 3.3 - 4.9 mmol/L Blood 12/16/2024 5:10 PM CDT 12/16/2024 5:21 PM CDT us Angela Cox NP LAB BLOOD ORDERABLES Final Result [facility] Department [place] [address] * POCT glucose (12/16/2024 5:10 PM CDT) Glucose, POC 130 70 - 199 mg/dL Blood 12/16/2024 5:10 PM CDT 12/16/2024 5:10 PM CDT Indiana Mortensen MD LAB POCT ORDERABLES - DEVICE Final Result Performing Organization Address [facility] Co de Phone Number [facility] Department [place] [address] * (ABNORMAL) Blood gas, arterial (12/16/2024 5:10 PM CDT) [facility] pH, Art 7.27(L) 7.35 - 7.45 PCO2, Arterial 43 35 - 45 mmHg [facility] PO2, Arterial 159(H) 83 - 108 mmHg [facility] HCO3 Art (Calculated) 20 20 - 30 mmol/L [facility] BE, art -7 mmol/L [facility] Comment: Interpretive Data No Reference Range Established Current Interpretive Data was last revised on 2017 O2 Sat Art (Measured) 99(H) 90 - 95 % [facility] Blood 12/16/2024 5:10 PM CDT 12/16/2024 5:21 PM CDT Indiana Mortensen MD LAB BLOOD ORDERABLES Final Re sult Performing Organization Address City/[facility] Co de Phone Number [facility] Department [place] [address] * (ABNORMAL) Potassium, whole blood (12/16/2024 1:55 PM CDT) [facility] Potassium, bld 5.5(H) 3.3 - 4.9 mmol/L Blood 12/16/2024 1:55 PM CDT 12/16/2024 2:05 PM CDT Sepideh Rees NP LAB BLOOD ORDERABLES Final Result Performing Organization Address City/[facility]/ZIP Co de Phone Number [facility] Department [place] [address] * (ABNORMAL) POC Blood Gas and Chemistries, Arterial - (12/16/2024 1:17 PM CDT) pH, Art POC 7.25(L) 7.35 - 7.45 pCO2, Art POC 44 35 - 45 mmHg [facility] pO2, Art POC 147(H) 83 - 108 mmHg [facility] Na, POC 134(L) 135 - 145 mmol/L [facility] K POC 5.8(H) 3.3 - 4.9 mmol/L [facility] Comment: Interpretive Data Not all point of care methods assess for hemolysis. Confirm with instrument and retest K+ if not consistent with clinical signs and symptoms. Current Interpretive Data was last revised on 2023. Cl, POC 107 97 - 110 mmol/L [facility] Ionized Ca, POC 4.71 4.50 - 5.10 mg/dL [facility] Glucose, POC 131 70 - 199 mg/dL [facility] Lactate POC 1.3 0.7 - 2.0 mmol/L [facility] SO2 (chandra) arterial 99(H) 90 - 95 % [facility] Base excess, POC -7.5 mmol/L [facility] HCO3, Art POC 19(L) 20 - 30 mmol/L [facility] Hct, POC 28.0(L) 36.3 - 45.3 % [facility] Total Hb, POC 9.4(L) 11.9 - 15.5 g/dL [facility] Blood 12/16/2024 1:17 PM CDT 12/16/2024 1:17 PM CDT Indiana Mortensen MD LAB POCT ORDERABLES - DEVICE Final Result [facility] [place] [address] * (ABNORMAL) POC Blood Gas and Chemistries, Arterial - (12/16/2024 12:33 PM CDT) pH, Art POC 7.24(L) 7.35 - 7.45 pCO2, Art POC 48(H) 35 - 45 mmHg [facility] pO2, Art POC 138(H) 83 - 108 mmHg [facility] Na, POC 135 135 - 145 mmol/L [facility] K POC 5.7(H) 3.3 - 4.9 mmol/L [facility] Comment: Interpretive Data Not all point of care methods assess for hemolysis. Confirm with instrument and retest K+ if not consistent with clinical signs and symptoms. Current Interpretive Data was last revised on 2023. Cl, POC 106 97 - 110 mmol/L [facility] Ionized Ca, POC 4.74 4.50 - 5.10 mg/dL [facility] Glucose, POC 134 70 - 199 mg/dL [facility] Lactate POC 1.2 0.7 - 2.0 mmol/L [facility] SO2 (chandra) arterial 100(H) 90 - 95 % [facility] Base excess, POC -6.6 mmol/L [facility] HCO3, Art POC 21 20 - 30 mmol/L [facility] Hct, POC 28.0(L) 36.3 - 45.3 % [facility] Total Hb, POC 9.2(L) 11.9 - 15.5 g/dL [facility] Blood 12/16/2024 12:3 3 PM CDT 12/16/2024 12:33 PM CDT us Indiana Mortensen MD LAB POCT ORDERABLES - DEVICE Final Result [facility] [place] [address] * XR Chest 1 View (12/16/2024 11:52 [...] signed by: Shala Eldridge M.D. Sepideh Rees JUNIOR BOOKKEEPER IMG XR PROCEDURES Fi nal Result * (ABNORMAL) eGFR (12/16/2024 11:21 AM CDT) [facility] Signature eGFR 33(L) >=60 mL/min/1. 73 m2 Comment: [...] MD LAB BLOOD ORDERABLES Final Re sult [facility] Department [place] [address] * (ABNORMAL) CBC without differential (12/16/2024 11:21 AM CDT) WBC 35.53(H) 3.80 - 9.90 K/cumm Hgb 8.8(L) 11.9 - 15.5 g/dL [facility] Hct 26.1(L) 35.6 - 45.5 % [facility] Plt 371 150 - 400 K/cumm [facility] MPV 9.0(L) 9.1 - 12.3 fL [facility] RBC 2.93(L) 3.90 - 5.20 M/cumm [facility] MCV 89.1 81.3 - 96.4 fL [facility] MCH 30.0 27.1 - 33.3 pg [facility] MCHC 33.7 32.3 - 35.7 g/dL [facility] RDW CV 13.7 11.1 - 14.9 % [facility] RDW SD 43.8 35.7 - 48.1 fL [facility] NRBC abs 1.14(H) 0.00 - 0.01 K/cumm [facility] Blood 12/16/2024 11:2 1 AM CDT 12/16/2024 11:33 AM CDT Indiana Mortensen MD LAB BLOOD ORDERABLES Final Re sult Performing Organization Address [facility] de Phone Number [facility] [place] [address] * (ABNORMAL) Phosphorus (12/16/2024 11:21 AM CDT) Pathologist [facility] Phosphorus, pl 6.9(H) 2.3 - 4.5 mg/dL Blood 12/16/2024 11:2 1 AM CDT 12/16/2024 11:32 AM CDT Indiana Mortensen MD LAB BLOOD ORDERABLES Final Re sult Performing Organization Address [facility] de Phone Number [facility] Department [place] [address] * (ABNORMAL) Magnesium (12/16/2024 11:21 AM CDT) [facility] Magnesium 2.7(H) 1.4 - 2.5 mg/dL Blood 12/16/2024 11:2 1 AM CDT 12/16/2024 11:32 AM CDT Indiana Mortensen MD LAB BLOOD ORDERABLES Final Re sult Performing Organization Address [facility] de Phone Number [facility] [place] [address] * (ABNORMAL) Basic metabolic panel (12/16/2024 11:21 AM CDT) Pathologist [facility] Sodium 135 135 - 145 mmol/L Potassium, pl 5.5(H) 3.3 - 4.9 mmol/L [facility] Chloride 103 97 - 110 mmol/L [facility] CO2 21(L) 22 - 32 mmol/L [facility] Anion gap 11 2 - 15 mmol/L [facility] BUN 27(H) 6 - 25 mg/dL [facility] Creatinine 1.71(H) 0.60 - 1.10 mg/dL [facility] Comment:Reviewed Glucose 140 70 - 199 mg/dL [facility] Comment: Interpretive Data Fasting glucose >/= [...] 2022. Calcium 8.7 8.5 - 10.3 mg/dL [facility] Blood 12/16/2024 11:2 1 AM CDT 12/16/2024 11:32 AM CDT us Indiana Mortensen MD LAB BLOOD ORDERABLES Final Re sult [facility] Department [place] [address] * (ABNORMAL) POC Blood Gas and Chemistries, Arterial - (12/16/2024 11:12 AM CDT) pH, Art POC 7.25(L) 7.35 - 7.45 pCO2, Art POC 45 35 - 45 mmHg [facility] pO2, Art POC 324(H) 83 - 108 mmHg [facility] Na, POC 135 135 - 145 mmol/L [facility] K POC 5.5(H) 3.3 - 4.9 mmol/L [facility] Comment: Interpretive Data Not all point of care methods assess for hemolysis. Confirm with instrument and retest K+ if not consistent with clinical signs and symptoms. Current Interpretive Data was last revised on 2023. Cl, POC 107 97 - 110 mmol/L [facility] Ionized Ca, POC 4.78 4.50 - 5.10 mg/dL [facility] Glucose, POC 132 70 - 199 mg/dL [facility] Lactate POC 1.2 0.7 - 2.0 mmol/L [facility] SO2 (chandra) arterial 100(H) 90 - 95 % [facility] Base excess, POC -7.2 mmol/L [facility] HCO3, Art POC 20 20 - 30 mmol/L [facility] Hct, POC 28.0(L) 36.3 - 45.3 % [facility] Total Hb, POC 9.3(L) 11.9 - 15.5 g/dL [facility] Blood 12/16/2024 11:1 2 AM CDT 12/16/2024 11:12 AM CDT us Indiana Mortensen MD LAB POCT ORDERABLES - DEVICE Final Result [facility] Department [place] [address] * Critical Care (12/16/2024 8:07 AM CDT) Narrative Esdras Quevedo MD - 12/16/2024 8:07 AM CDT Esdras [...] plan with the ICU team and other medical/cycle consultant staff, making frequent assessments and decisions [...] time documenting in the medical record us Sepideh Rees JUNIOR BOOKKEEPER IN CLINIC/BEDSIDE OR DERABLES Final Result * (ABNORMAL) Lactate, whole blood (12/16/2024 8:00 AM CDT) Pathologist [facility] Lactate, bld 2.2(H) 0.7 - 2.0 mmol/L Blood 12/16/2024 8:00 AM CDT 12/16/2024 8:19 AM CDT us Indiana Mortensen MD LAB BLOOD ORDERABLES Final Re sult Performing Organization Address [facility] de Phone Number [facility] [place] [address] * (ABNORMAL) Blood gas, arterial (12/16/2024 8:00 AM CDT) Pathologist [facility] pH, Art 7.33(L) 7.35 - 7.45 PCO2, Arterial 39 35 - 45 mmHg [facility] PO2, Arterial 203(H) 83 - 108 mmHg [facility] HCO3 Art (Calculated) 21 20 - 30 mmol/L [facility] BE, art -5 mmol/L [facility] Comment: Interpretive Data No Reference Range Established Current Interpretive Data was last revised on 2017 O2 Sat Art (Measured) 99(H) 90 - 95 % [facility] Blood 12/16/2024 8:00 AM CDT 12/16/2024 8:19 AM CDT Indiana Mortensen MD LAB BLOOD ORDERABLES Final Re sult Performing Organization Address [facility] Co de Phone Number [facility] [place] [address] * POCT glucose (12/16/2024 7:54 AM CDT) Glucose, POC 131 70 - 199 mg/dL Blood 12/16/2024 7:54 AM CDT 12/16/2024 7:54 AM CDT us Indiana Mortensen MD LAB POCT ORDERABLES - DEVICE Final Result [facility] Department [place] [address] * (ABNORMAL) POC Blood Gas and Chemistries, Arterial - (12/16/2024 5:59 AM CDT) pH, Art POC 7.33(L) 7.35 - 7.45 pCO2, Art POC 34(L) 35 - 45 mmHg [facility] pO2, Art POC 293(H) 83 - 108 mmHg [facility] Na, POC 136 135 - 145 mmol/L [facility] K POC 4.7 3.3 - 4.9 mmol/L [facility] Comment: Interpretive Data Not all point of care methods assess for hemolysis. Confirm with instrument and retest K+ if not consistent with clinical signs and symptoms. Current Interpretive Data was last revised on 2023. Cl, POC 109 97 - 110 mmol/L [facility] Ionized Ca, POC 4.65 4.50 - 5.10 mg/dL [facility] Glucose, POC 162 70 - 199 mg/dL [facility] Lactate POC 2.5(H) 0.7 - 2.0 mmol/L [facility] SO2 (chandra) arterial 100(H) 90 - 95 % [facility] Base excess, POC -7.3 mmol/L [facility] HCO3, Art POC 18(L) 20 - 30 mmol/L [facility] Hct, POC 27.0(L) 36.3 - 45.3 % [facility] Total Hb, POC 9.1(L) 11.9 - 15.5 g/dL [facility] Blood 12/16/2024 5:59 AM CDT 12/16/2024 5:59 AM CDT us Indiana Mortensen MD LAB POCT ORDERABLES - DEVICE Final Result [facility] Department [place] [address] * (ABNORMAL) POC Blood Gas and Chemistries, Arterial - (12/16/2024 3:52 AM CDT) pH, Art POC 7.34(L) 7.35 - 7.45 pCO2, Art POC 27(L) 35 - 45 mmHg [facility] pO2, Art POC 168(H) 83 - 108 mmHg [facility] Na, POC 134(L) 135 - 145 mmol/L [facility] K POC 5.3(H) 3.3 - 4.9 mmol/L [facility] Comment: Interpretive Data Not all point of care methods assess for hemolysis. Confirm with instrument and retest K+ if not consistent with clinical signs and symptoms. Current Interpretive Data was last revised on 2023. Cl, POC 110 97 - 110 mmol/L [facility] Ionized Ca, POC 4.84 4.50 - 5.10 mg/dL [facility] Glucose, POC 238(H) 70 - 199 mg/dL [facility] Lactate POC 4.3(C) 0.7 - 2.0 mmol/L [facility] SO2 (chandra) arterial Incalculable 90 - 95 % [facility] Base excess, POC -9.6 mmol/L [facility] HCO3, Art POC 15(L) 20 - 30 mmol/L [facility] Hct, POC Incalculable 36.3 - 45.3 % [facility] Total Hb, POC Incalculable 11.9 - 15.5 g/dL [facility] Blood 12/16/2024 3:52 AM CDT 12/16/2024 3:52 AM CDT us Indiana Mortensen MD LAB POCT ORDERABLES - DEVICE Final Result [facility] Department [place] [address] * ECG 12 lead (12/16/2024 2:45 AM CDT) Pathologist [facility] Ventricular Rate EKG/Min 37 BPM [facility] Atrial Rate 41 BPM [facility] QRS-Interval (MSEC) 102 ms [facility] QT-Interval (MSEC) 570 ms [facility] QTc 447 ms [facility] R [place] 183 degrees [facility] T [place] 121 degrees [facility] Diagnosis Poor data quality, interpretation may be adversely affected Suspect arm lead reversal, interpretation assumes no reversal with complete heart block Atrial paced rhythm Moderate voltage criteria for LVH, may be normal variant ( R in aVL , Sokolow-Elam ) Lateral infarct , new Inferior injury pattern Anterior injury pattern ACUTE MT / STEMI Abnormal ECG When compared with ECG of 12-DEC-2024 11:50, Current undetermined rhythm precludes rhythm comparison, needs review Right bundle branch block is no longer Present Acute Lateral infarct is now Present Confirmed by KAMILA MCKAY M.D ([id number]) on 12/16/2024 11:16:23 AM [facility] 12/16/2024 2:45 AM CDT 12/16/2024 11:16 AM CDT us Kika Simpson DNP ECG ORDERABLES Final R esult Performing Organization Address [facility] de Phone Number [facility] * (ABNORMAL) POC Blood Gas and Chemistries, Arterial - (12/16/2024 2:43 AM CDT) Pathologist [facility] pH, Art POC 7.33(L) 7.35 - 7.45 pCO2, Art POC 34(L) 35 - 45 mmHg [facility] pO2, Art POC 153(H) 83 - 108 mmHg [facility] Na, POC 136 135 - 145 mmol/L [facility] K POC 4.8 3.3 - 4.9 mmol/L [facility] Comment: Interpretive Data Not all point of care methods assess for hemolysis. Confirm with instrument and retest K+ if not consistent with clinical signs and symptoms. Current Interpretive Data was last revised on 2023. Cl, POC 106 97 - 110 mmol/L [facility] Ionized Ca, POC 5.02 4.50 - 5.10 mg/dL [facility] Glucose, POC 240(H) 70 - 199 mg/dL [facility] Lactate POC 3.3(H) 0.7 - 2.0 mmol/L [facility] SO2 (chandra) arterial 100(H) 90 - 95 % [facility] Base excess, POC -7.3 mmol/L [facility] HCO3, Art POC 18(L) 20 - 30 mmol/L [facility] Hct, POC 28.0(L) 36.3 - 45.3 % [facility] Total Hb, POC 9.3(L) 11.9 - 15.5 g/dL [facility] Blood 12/16/2024 2:43 AM CDT 12/16/2024 2:43 AM CDT us Indiana Mortensen MD LAB POCT ORDERABLES - DEVICE Final Result [facility] Department [place] [address] * Respiratory pathogen panel Tracheal aspirate (12/16/2024 1:45 AM CDT) Pathologist [facility] Influenza A RNA Not Detected Not Detected Influenza B RNA Not Detected Not Detected [facility] RSV RNA Not Detected Not Detected [facility] COVID-19 RNA Not Detected Not Detected [facility] Coronavirus 229E RNA Not Detected Not Detected [facility] Coronavirus HKU1 RNA Not Detected Not Detected [facility] Coronavirus NL63 RNA Not Detected Not Detected [facility] Coronavirus OC43 RNA Not Detected Not Detected [facility] Adenovirus DNA Not Detected Not Detected [facility] Metapneumovirus RNA Not Detected Not Detected [facility] Rhinovirus/Enterov irus RNA Not Detected Not Detected [facility] Parainfluenza 1 RNA Not Detected Not Detected [facility] Parainfluenza 2 RNA Not Detected Not Detected [facility] Parainfluenza 3 RNA Not Detected Not Detected [facility] Parainfluenza 4 RNA Not Detected Not Detected [facility] B. pertussis DNA Not Detected Not Detected [facility] B. parapertussis DNA Not Detected Not Detected [facility] C. pneumoniae DNA Not Detected Not Detected [facility] M. pneumoniae DNA Not Detected Not Detected [facility] Tracheal aspirate 12/16/2024 1:45 AM CDT 12/16/2024 8:16 AM CDT Narrative [facility] - 12/16/2024 9:13 AM CDT Is the Patient experiencing symptoms consistent with COVID?->Yes Surveillance testing for transplant patient?->No Interpretive Data [facility] FilmArray Respiratory Panel (RP2.1) assay is a [...] assay has FDA clearance for testing of JUNIOR BOOKKEEPER swabs. The performance of additional specimen types has been assessed by the performing laboratory. The performance characteristics of this assay have been determined by [facility] Molecular Infectious Disease Laboratory. Current interpretive data was last revised on 22. Gia Erwin Argenta JUNIOR BOOKKEEPER LAB MICROBIOLOGY - GENERAL ORD ERABLES Final Result ALEX DA SIL[facility] Department [place] [address] * Blood culture Blood (12/16/2024 1:45 AM CDT) Report Final Report: No growth Blood 12/16/2024 1:45 AM CDT 12/16/2024 2:16 AM CDT Narrative ALEX MCKEON - 12/20/2024 7:00 AM CDT Collection->Peripheral 1. [...] performance characteristics have been verified by the [facility] Microbiology Laboratory. For questions about this culture, contact the Microbiology Laboratory at [phone]. Interpretive data was last revised on 24. Gia Erwin Bernardo LAB MICROBIOLOGY - GENERAL ORD ERABLES Final Result Performing Organization Address [facility]/ZIP Co de Phone Number ALEX MCKEON [facility] Department [place] [address] * Blood culture Blood (12/16/2024 1:45 AM CDT) Report Final Report: No growth Blood 12/16/2024 1:45 AM CDT 12/16/2024 2:16 AM CDT Narrative ALEX DA SILVA - 12/20/2024 7:00 AM CDT Collection->Peripheral 1. [...] performance characteristics have been verified by the [facility] Microbiology Laboratory. For questions about this culture, contact the Microbiology Laboratory at [phone]. Interpretive data was last revised on 24. Gia Mercedes LAB MICROBIOLOGY - GENERAL ORD ERABLES Final Result Performing Organization Address [facility]/ZIP Co de Phone Number ALEX MCKEON [facility] Department [place] [address] * eGFR (12/15/2024 10:37 PM CDT) eGFR [...] 7 PM CDT 12/15/2024 11:03 PM CDT us Angela Cox JUNIOR BOOKKEEPER LAB BLOOD ORDERABLES Final Result ALEX [facility] Department [place] [address] * (ABNORMAL) Calcium, ionized (12/15/2024 10:37 PM CDT) Calcium, Ionized 4.44(L) 4.50 - 5.10 mg/dL Blood 12/15/2024 10:3 7 PM CDT 12/15/2024 10:46 PM CDT Gia Mercedes JUNIOR BOOKKEEPER LAB BLOOD ORDERABLES Final Res ult ALEX [facility] Department [place] [address] * (ABNORMAL) CBC without differential (12/15/2024 10:37 PM CDT) Pathologist [facility] WBC 28.29(H) 3.80 - 9.90 K/cumm Hgb 9.1(L) 11.9 - 15.5 g/dL [facility] Hct 26.9(L) 35.6 - 45.5 % [facility] Plt 443(H) 150 - 400 K/cumm [facility] MPV 8.9(L) 9.1 - 12.3 fL [facility] RBC 3.05(L) 3.90 - 5.20 M/cumm [facility] MCV 88.2 81.3 - 96.4 fL [facility] MCH 29.8 27.1 - 33.3 pg [facility] MCHC 33.8 32.3 - 35.7 g/dL [facility] RDW CV 14.1 11.1 - 14.9 % [facility] RDW SD 44.0 35.7 - 48.1 fL [facility] NRBC abs 0.37(H) 0.00 - 0.01 K/cumm [facility] Blood 12/15/2024 10:3 7 PM CDT 12/15/2024 10:54 PM CDT us Angela Cox JUNIOR BOOKKEEPER LAB BLOOD ORDERABLES Final Result Performing Organization Address City/[facility]/ZIP Co de Phone Number [facility] Department [place] [address] * Phosphorus (12/15/2024 10:37 PM CDT) Pathologist [facility] Phosphorus, pl 4.5 2.3 - 4.5 mg/dL Blood 12/15/2024 10:3 7 PM CDT 12/15/2024 10:46 PM CDT Angela Cox JUNIOR BOOKKEEPER LAB BLOOD ORDERABLES Final Result [facility] Department [place] [address] * Magnesium (12/15/2024 10:37 PM CDT) [facility] Magnesium 2.1 1.4 - 2.5 mg/dL Blood 12/15/2024 10:3 7 PM CDT 12/15/2024 10:46 PM CDT Gia Mercedes NP LAB BLOOD ORDERABLES Final Res ult Performing Organization Address [facility] Co de Phone Number [facility] [place] [address] * Basic metabolic panel (12/15/2024 10:37 PM CDT) [facility] Sodium 136 135 - 145 mmol/L Potassium, pl 4.4 3.3 - 4.9 mmol/L [facility] Chloride 102 97 - 110 mmol/L [facility] CO2 23 22 - 32 mmol/L [facility] Anion gap 11 2 - 15 mmol/L [facility] BUN 21 6 - 25 mg/dL [facility] Creatinine 0.85 0.60 - 1.10 mg/dL [facility] Glucose 152 70 - 199 mg/dL [facility] Comment: Interpretive Data Fasting glucose >/= [...] 2022. Calcium 8.5 8.5 - 10.3 mg/dL [facility] Blood 12/15/2024 10:3 7 PM CDT 12/15/2024 10:46 PM CDT us Angela Cox JUNIOR BOOKKEEPER LAB BLOOD ORDERABLES Final Result [facility] Department [place] [address] * (ABNORMAL) Urinalysis reflex to microscopic and culture Urine (12/15/2024 9:20 PM CDT) Color, ur Straw Yellow Clarity, ur Clear Clear [facility] Specific gravity, ur 1.018 1.003 - 1.030 [facility] pH, urine 5.5 [facility] Comment: Interpretive Data U rine pH is affected by diet, medications, systemic acid-base disturbances, and renal tubular function. pH may affect urinary stone formation. For example, urine pH below 6.0 may help reduce the tendency for calcium phosphate stones and pH greater than 6.0 may reduce the tendency for uric acid stone formation. Source: [facility] Current Interpretive Data was last revised on 2017 Protein, ur ql Negative Negative [facility] Glucose, ur ql Negative Negative [facility] Ketones, ur Negative Negative [facility] Bilirubin, ur Negative Negative [facility] Blood, ur Trace(A) Negative [facility] Urobilinogen, ur <2.0 <2.0 mg/dL [facility] Nitrite, ur Negative Negative [facility] Leukocyte esterase, ur Negative Negative [facility] UA reflex comment Reflex to microscopic UA will be performed. [facility] Urine 12/15/2024 9:20 PM CDT 12/15/2024 10:23 PM CDT Narrative [facility] - 12/15/2024 10:31 PM CDT Prior to cardiac device us Shala Oliva NP LAB MICROBIOLOGY - GENERAL O RDERABLES Final Result [facility]LEX [facility] Department [place] [address] * (ABNORMAL) Urinalysis, microscopic only (12/15/2024 9:20 PM CDT) WBC, ur 0-5 0 - 5 /HPF RBC, ur 0-2 0 - 2 /HPF [facility] Epithelial cells, squamous, ur 1-5 0 - 5 /HPF [facility] Mucous, ur Present(A) [facility] Culture Reflex Comment Reflex conditions for urine culture (WBC >10) not met. [facility] Urine 12/15/2024 9:20 PM CDT 12/15/2024 10:23 PM CDT us Shala Oliva JUNIOR BOOKKEEPER LAB URINE ORDERABLES Final R esult [facility] Department [place] [address] * (ABNORMAL) POC Blood Gas and Chemistries, Arterial - (12/15/2024 9:06 PM CDT) pH, Art POC 7.38 7.35 - 7.45 pCO2, Art POC 39 35 - 45 mmHg [facility] pO2, Art POC 154(H) 83 - 108 mmHg [facility] Na, POC 138 135 - 145 mmol/L [facility] K POC 4.2 3.3 - 4.9 mmol/L [facility] Comment: Interpretive Data Not all point of care methods assess for hemolysis. Confirm with instrument and retest K+ if not consistent with clinical signs and symptoms. Current Interpretive Data was last revised on 2023. Cl, POC 107 97 - 110 mmol/L [facility] Ionized Ca, POC 4.62 4.50 - 5.10 mg/dL [facility] Glucose, POC 144 70 - 199 mg/dL [facility] Lactate POC 0.9 0.7 - 2.0 mmol/L [facility] SO2 (chandra) arterial 99(H) 90 - 95 % [facility] Base excess, POC -1.8 mmol/L [facility] HCO3, Art POC 23 20 - 30 mmol/L [facility] Hct, POC 28.0(L) 36.3 - 45.3 % [facility] Total Hb, POC 9.4(L) 11.9 - 15.5 g/dL [facility] Blood 12/15/2024 9:06 PM CDT 12/15/2024 9:06 PM CDT Indiana Mortensen MD LAB POCT ORDERABLES - DEVICE Final Result Performing Organization Address [facility] Co de Phone Number [facility] [place] [address] * POCT glucose (12/15/2024 8:46 PM CDT) Glucose, POC 141 70 - 199 mg/dL Blood 12/15/2024 8:46 PM CDT 12/15/2024 8:46 PM CDT Result [facility] Indiana Mortensen MD LAB POCT ORDERABLES - DEVICE Final Result Performing Organization Address [facility] de Phone Number [facility] [place] [place] [address] * (ABNORMAL) Troponin I high-sensitivity 6-hour (12/15/2024 7:45 PM CDT) Pathologist [facility] Trop I hs 4,224(C) <=17 ng/L Comment: Previous critical value noted within 48 hours ago. Interpretive Data For further hscTnI resources including the diagnostic algorithm and an aid in interpretation, copy and paste this link: https://bjhlab.testcatalog.org/show/[email or web address] Current Interpretive Data last revised 2020. Trop I hs pct delta -3 % [facility] Trop I hs interp Insignificant [facility] Blood 12/15/2024 7:45 PM CDT 12/15/2024 8:10 PM CDT Gema Bernabe NP LAB BLOOD ORDERABLES Final Re sult Performing Organization Address [facility] Co de Phone Number [facility] [place] [address] * Type and screen (12/15/2024 7:45 PM CDT) Sarah, indirect Negative ABO Rh B Negative [facility] Blood 12/15/2024 7:45 PM CDT 12/15/2024 7:59 PM CDT Narrative [facility] - 12/15/2024 9:15 PM CDT Has the patient had Daratumumab or Isatuximab in the past 6 months?->Unknown us Indiana Mortensen MD LAB BLOOD BANK TEST ORDERABLE S Final Result [facility] Department [place] [address] * Critical Care (12/15/2024 7:25 PM CDT) [...] plan with the ICU team and other medical/cycle consultant staff, making frequent assessments and decisions [...] documenting in the medical record us Gia Yaima Hill JUNIOR BOOKKEEPER IN CLINIC/BEDSIDE ORDERABLES F inal Result * [...] signed by: Tracy Snider M.D. Gema Bernabe JUNIOR BOOKKEEPER IMG XR PROCEDURES Final Resul t * [...] signed by: Felipe Souza MD, PHD us Elizabeth Zaldivar NP IMG XR PROCEDURES Final R esult * (ABNORMAL) POC Blood Gas and Chemistries, Arterial - (12/15/2024 5:10 PM CDT) pH, Art POC 7.27(L) 7.35 - 7.45 pCO2, Art POC 49(H) 35 - 45 mmHg [facility] pO2, Art POC 239(H) 83 - 108 mmHg [facility] Na, POC 138 135 - 145 mmol/L [facility] K POC 3.8 3.3 - 4.9 mmol/L [facility] Comment: Interpretive Data Not all point of care methods assess for hemolysis. Confirm with instrument and retest K+ if not consistent with clinical signs and symptoms. Current Interpretive Data was last revised on 2023. Cl, POC 108 97 - 110 mmol/L [facility] Ionized Ca, POC 4.67 4.50 - 5.10 mg/dL [facility] Glucose, POC 152 70 - 199 mg/dL [facility] Lactate POC 1.1 0.7 - 2.0 mmol/L [facility] SO2 (chandra) arterial 100(H) 90 - 95 % [facility] Base excess, POC -4.4 mmol/L [facility] HCO3, Art POC 22 20 - 30 mmol/L [facility] Hct, POC 29.0(L) 36.3 - 45.3 % [facility] Total Hb, POC 9.5(L) 11.9 - 15.5 g/dL [facility] Blood 12/15/2024 5:10 PM CDT 12/15/2024 5:10 PM CDT us Indiana Mortensen MD LAB POCT ORDERABLES - DEVICE Final Result Performing Organization Address [facility] de Phone Number [facility] Department [place] [place] [address] * (ABNORMAL) Troponin I high-sensitivity 2-hour (12/15/2024 4:03 PM CDT) Trop I hs 4,610(C) <=17 ng/L Comment: Previous critical value noted within 48 hours ago. Interpretive Data For further hscTnI resources including the diagnostic algorithm and an aid in interpretation, copy and paste this link: https://bjhlab.testcatalog.org/show/hsTrop-1 Current Interpretive Data last revised 2020. Trop I hs pct delta 5 % [facility] Trop I hs interp Equivocal [facility] Blood 12/15/2024 4:03 PM CDT 12/15/2024 4:09 PM CDT us Gema Bernabe NP LAB BLOOD ORDERABLES Final Re sult Performing Organization Address [facility]/ZIP Co de Phone Number [facility] [place] [employer] [place] [place] [address] * POCT glucose (12/15/2024 4:01 PM CDT) Glucose, POC 115 70 - 199 mg/dL Blood 12/15/2024 4:01 PM CDT 12/15/2024 4:01 PM CDT Indiana Mortensen MD LAB POCT ORDERABLES - DEVICE Final Result Performing Organization Address [facility] Co de Phone Number ALEX [facility] Department [place] [address] * Infection Prevention Justice auris PCR, surveillance Axilla/Groin (12/15/2024 2:27 PM CDT) Justice auris DNA Not Detected Not Detected [facility] Comment: Interpretive Data Testing performed by [facility] Molecular Infectious Disease Laboratory using the Uberseq shirin 6800 Justice auris assay. This assay detects DNA from Justice auris using Real-Time PCR. This assay is laboratory developed and is not cleared by the [facility] Food and Drug Administration. The performance characteristics have been verified by the [facility] Molecular Infectious Disease Laboratory. Axilla/Groin 12/15/2024 2:27 PM CDT 12/15/2024 3:06 PM CDT Narrative AMBERFRAN [facility] - 12/16/2024 12:10 AM CDT Order placed by [facility] due to ring surveillance. Instant Order Generic Provider LAB MICROBIOLOGY - GENERAL ORDERABLES Final Result Performing Organization Address [facility] Co de Phone Number [facility] Department [place] [address] [facility] * (ABNORMAL) Troponin I high-sensitivity series (baseline, 2hr, 4hr, 6hr) (12/15/2024 2:24 PM CDT) Trop I hs 4,370(C) <=17 ng/L Comment: Interpretive Data For further hscTnI resources including the diagnostic algorithm and an aid in interpretation, copy and paste this link: https://bjhlab.testcatalog.org/show/hsTrop-1 Current Interpretive Data last revised 2020. Blood 12/15/2024 2:24 PM CDT 12/15/2024 3:08 PM CDT Gema Bernabe JUNIOR BOOKKEEPER LAB BLOOD ORDERABLES Final Re sult Performing Organization Address [facility]/ZIP Co de Phone Number ALEX [facility] [place] [address] * Critical result callback Cardio chemistry (12/15/2024 2:24 PM CDT) Date Notified [id number] Time Notified 1548 ALEX [facility] Test name Trop I hs base ALEX MCKEON Called/Read Back Kalie MCKEON Credentials RN ALEX [facility] Called By TP ALEX MCKEON Blood 12/15/2024 2:24 PM CDT 12/15/2024 3:08 PM CDT Gema Bernabe JUNIOR BOOKKEEPER LAB BLOOD ORDERABLES Final Re sult Performing Organization Address [facility] Co de Phone Number [facility] [place] [address] * Continuous Video EEG (12/15/2024 2:11 PM CDT) Anatomical Region Laterality Modality EEG Narrative 12/15/2024 2:11 PM CDT Video-EEG Report Patient Name: Adi Flowers [facility] Medical Record Number (MRN): [id number] [facility] Record: [id number] Date of (): 1960 Ordering Provider: Elo Lehman MD CC: Pacheco Mejia Start Time: 12/14/2024 12:47:40 PM End Time: 12/15/2024 10:18:43 AM Introduction: Ms. Flowers is a 64 y.o. female with a history of KOJO (PAP non-compliant), HTN, anxiety, hx of gastric bypass (2014), HLD, CAD, HFpEF, GERD, iron deficiency anemia, and chronic neck and back pain, s/p AVR and CABG x1 on 12/09/24, presenting with seizure-like activity. The EEG was performed to evaluate for seizures. This is a report of continuous video-EEG monitoring. High definition digital video and digital EEG were recorded continuously with a Smartdate EEG acquisition system. This was a 32 [...] AM CDT Narrative 12/15/2024 12:50 PM CDT [facility] [place] [address] Transthoracic Echocardiographic Report Patient Name: ADI FLOWERS M : 1960 (64y 1m) Gender: F Study Date: 12/15/2024 11:10:49 AM Ht(Inch): 63 Wt(Lb): 298.94 BSA: 2.46 Analyzer Sales: Andreia Loera [facility] [[email or web address]] Location: [id number] Order Provider: GIA MERCEDES Heart Rate: 115 [...] type 2 heart block. CONCLUSIONS: 1. S/p BioKHOARTavares, 1-V CABG. 2. Normal left ventricular size [...] Guy Cooley MD 12/15/2024 12:50:04 PM CDT Procedure Note Guy Cooley MD - 12/15/2024 [facility] Card[facility] [place] [address] Transthoracic Echocardiographic Report Patient Name: ADI FLOWERS M : 1960 (64y 1m) Gender: F Study Date: 12/15/2024 11:10:49 AM Ht(Inch): 63 Wt(Lb): 298.94 BSA: 2.46 Analyzer Sales: Andreia Loera [facility] [[email or web address]] Location: [id number] Order Provider:GIA MERCEDES Heart Rate: 115 BMI: 52.95 BP: [...] MD 12/15/2024 12:50:04 PM CDT Gia Mercedes NP CV ECHO PROCEDURES Final Resul t * POCT glucose (12/15/2024 11:36 AM CDT) [facility] Glucose, POC 100 70 - 199 mg/dL Blood 12/15/2024 11:3 6 AM CDT 12/15/2024 11:36 AM CDT Indiana Mortensen MD LAB POCT ORDERABLES - DEVICE Final Result Performing Organization Address City/[facility] Co de Phone Number ALEX MCKEON [facility] Department [place] [address] * POCT glucose (12/15/2024 8:33 AM CDT) Glucose, POC 152 70 - 199 mg/dL Blood 12/15/2024 8:33 AM CDT 12/15/2024 8:33 AM CDT Indiana Mortensen MD LAB POCT ORDERABLES - DEVICE Final Result Performing Organization Address [facility] de Phone Number [facility] [place] [address] * Critical Care (12/15/2024 7:16 AM CDT) [...] plan with the ICU team and other medical/cycle consultant staff, making frequent assessments and decisions [...] in the medical record us Gema Bernabe JUNIOR BOOKKEEPER IN CLINIC/BEDSIDE ORDERABLES Final Result * POCT glucose (12/15/2024 4:05 AM CDT) Glucose, POC 166 70 - 199 mg/dL Blood 12/15/2024 4:05 AM CDT 12/15/2024 4:05 AM CDT us Indiana Mortensen MD LAB POCT ORDERABLES - DEVICE Final Result ALEX MCKEON [facility] Department [place] [address] * eGFR (12/15/2024 12:05 AM CDT) eGFR [...] Cox NP LAB BLOOD ORDERABLES Final Result [facility] Department [place] [address] * POCT glucose (12/15/2024 12:05 AM CDT) [facility] Glucose, POC 155 70 - 199 mg/dL Blood 12/15/2024 12:0 5 AM CDT 12/15/2024 12:05 AM CDT us Indiana Mortensen MD LAB POCT ORDERABLES - DEVICE Final Result Performing Organization Address [facility] Co de Phone Number [facility] [place] [address] * (ABNORMAL) CBC without differential (12/15/2024 12:05 AM CDT) [facility] WBC 19.76(H) 3.80 - 9.90 K/cumm Hgb 8.4(L) 11.9 - 15.5 g/dL [facility] Hct 24.7(L) 35.6 - 45.5 % [facility] Plt 292 150 - 400 K/cumm [facility] MPV 9.2 9.1 - 12.3 fL [facility] RBC 2.79(L) 3.90 - 5.20 M/cumm [facility] MCV 88.5 81.3 - 96.4 fL [facility] MCH 30.1 27.1 - 33.3 pg [facility] MCHC 34.0 32.3 - 35.7 g/dL [facility] RDW CV 13.8 11.1 - 14.9 % [facility] RDW SD 44.5 35.7 - 48.1 fL [facility] NRBC abs 0.20(H) 0.00 - 0.01 K/cumm [facility] Blood 12/15/2024 12:0 5 AM CDT 12/15/2024 12:20 AM CDT Agnela Cox NP LAB BLOOD ORDERABLES Final Result Performing Organization Address City/[facility]/ZIP Co de Phone Number [facility] Department [place] [address] * (ABNORMAL) Phosphorus (12/15/2024 12:05 AM CDT) [facility] Phosphorus, pl 4.8(H) 2.3 - 4.5 mg/dL Blood 12/15/2024 12:0 5 AM CDT 12/15/2024 12:13 AM CDT us Angela Cox NP LAB BLOOD ORDERABLES Final Result Performing Organization Address [facility] Co de Phone Number [facility] Department [place] [address] * Magnesium (12/15/2024 12:05 AM CDT) [facility] Magnesium 2.0 1.4 - 2.5 mg/dL Blood 12/15/2024 12:0 5 AM CDT 12/15/2024 12:13 AM CDT Indiana Mortensen MD LAB BLOOD ORDERABLES Final Re sult Performing Organization Address [facility] Co de Phone Number [facility] [place] [address] * (ABNORMAL) Basic metabolic panel (12/15/2024 12:05 AM CDT) [facility] Sodium 140 135 - 145 mmol/L Potassium, pl 3.9 3.3 - 4.9 mmol/L [facility] Chloride 104 97 - 110 mmol/L [facility] CO2 25 22 - 32 mmol/L [facility] Anion gap 11 2 - 15 mmol/L [facility] BUN 20 6 - 25 mg/dL [facility] Creatinine 0.72 0.60 - 1.10 mg/dL [facility] Glucose 138 70 - 199 mg/dL [facility] Comment: Interpretive Data Fasting glucose >/= [...] 2022. Calcium 8.3(L) 8.5 - 10.3 mg/dL [facility] Blood 12/15/2024 12:0 5 AM CDT 12/15/2024 12:13 AM CDT us Angela Cox NP LAB BLOOD ORDERABLES Final Result Performing Organization Address City/[facility]/ZIP Co de Phone Number [facility] Department [place] [address] * POCT glucose (12/14/2024 8:48 PM CDT) [facility] Signature Glucose, POC 176 70 - 199 mg/dL Blood 12/14/2024 8:48 PM CDT 12/14/2024 8:48 PM CDT us Indiana Mortensen MD LAB POCT ORDERABLES - DEVICE Final Result [facility] Department [place] [address] * XR Chest 1 View (12/14/2024 7:24 [...] plan with the ICU team and other medical/cycle consultant staff, making frequent assessments and decisions [...] Result * eGFR (12/14/2024 4:34 PM CDT) Pathologist [facility] eGFR >90 >=60 mL/min/1. 73 m2 Comment: [...] 12/14/2024 6:27 PM CDT us Elizabeth Zaldivar JUNIOR BOOKKEEPER LAB BLOOD ORDERABLES Brenda l Result CERNER [facility] Department [place] [address] * POCT glucose (12/14/2024 4:34 PM CDT) Glucose, POC 168 70 - 199 mg/dL Blood 12/14/2024 4:34 PM CDT 12/14/2024 4:34 PM CDT Indiana Mortensen MD LAB POCT ORDERABLES - DEVICE Final Result Performing Organization Address [facility] Co de Phone Number [facility] Department [place] [address] * (ABNORMAL) Basic metabolic panel (12/14/2024 4:34 PM CDT) [facility] Sodium 141 135 - 145 mmol/L Potassium, pl 3.8 3.3 - 4.9 mmol/L [facility] Chloride 105 97 - 110 mmol/L [facility] CO2 23 22 - 32 mmol/L [facility] Anion gap 13 2 - 15 mmol/L [facility] BUN 22 6 - 25 mg/dL [facility] Creatinine 0.73 0.60 - 1.10 mg/dL [facility] Glucose 151 70 - 199 mg/dL [facility] Comment: Interpretive Data Fasting glucose >/= [...] 2022. Calcium 8.2(L) 8.5 - 10.3 mg/dL [facility] Blood 12/14/2024 4:34 PM CDT 12/14/2024 6:27 PM CDT Elizabeth Zaldivar NP LAB BLOOD ORDERABLES Brenda l Result Performing Organization Address City/[facility] Co de Phone Number [facility] Department [place] [address] * POCT glucose (12/14/2024 12:43 PM CDT) Glucose, POC 151 70 - 199 mg/dL Blood 12/14/2024 12:4 3 PM CDT 12/14/2024 12:43 PM CDT us Indiana Mortensen MD LAB POCT ORDERABLES - DEVICE Final Result Performing Organization Address [facility] de Phone Number [facility] [place] [address] * eGFR (12/14/2024 7:40 AM CDT) eGFR [...] ORDERABLES Brenda l Result Performing Organization Address [facility]/State/ZIP Co de Phone Number [facility] Department [place] [address] * Basic metabolic panel (12/14/2024 7:40 AM CDT) Sodium 143 135 - 145 mmol/L Potassium, pl 4.2 3.3 - 4.9 mmol/L [facility] Chloride 106 97 - 110 mmol/L [facility] CO2 25 22 - 32 mmol/L [facility] Anion gap 12 2 - 15 mmol/L [facility] BUN 25 6 - 25 mg/dL [facility] Creatinine 0.77 0.60 - 1.10 mg/dL [facility] Glucose 135 70 - 199 mg/dL [facility] Comment: Interpretive Data Fasting glucose >/= [...] 2022. Calcium 8.8 8.5 - 10.3 mg/dL [facility] Blood 12/14/2024 7:40 AM CDT 12/14/2024 8:04 AM CDT Elizabeth Zaldivar JUNIOR BOOKKEEPER LAB BLOOD ORDERABLES Brenda l Result ALEX [facility] Department [place] [address] * POCT glucose (12/14/2024 7:36 AM CDT) Glucose, POC 138 70 - 199 mg/dL Blood 12/14/2024 7:36 AM CDT 12/14/2024 7:36 AM CDT Indiana Mortensen MD LAB POCT ORDERABLES - DEVICE Final Result Performing Organization Address [facility] Co de Phone Number [facility] [place] [address] * eGFR (12/14/2024 4:57 AM CDT) eGFR [...] data was last reviewed 2021. Blood 12/14/2024 4:57 AM CDT 12/14/2024 5:10 AM CDT Gia Mercedes JUNIOR BOOKKEEPER LAB BLOOD ORDERABLES Final Res ult Performing Organization Address City/[facility] Co de Phone Number ALEX MCKEON [facility] Department [place] [address] * Lactate, whole blood (12/14/2024 4:57 AM CDT) Lactate, bld 1.2 0.7 - 2.0 mmol/L Blood 12/14/2024 4:57 AM CDT 12/14/2024 5:04 AM CDT us Gia Mercedes JUNIOR BOOKKEEPER LAB BLOOD ORDERABLES Final Res ult Performing Organization Address [facility] Co de Phone Number [facility] [place] [address] * (ABNORMAL) Phosphorus (12/14/2024 4:57 AM CDT) Phosphorus, pl 4.8(H) 2.3 - 4.5 mg/dL Blood 12/14/2024 4:57 AM CDT 12/14/2024 5:10 AM CDT Gia Erwin Argenta JUNIOR BOOKKEEPER LAB BLOOD ORDERABLES Final Res ult Performing Organization Address [facility] de Phone Number [facility] [place] [address] * Magnesium (12/14/2024 4:57 AM CDT) Magnesium 2.0 1.4 - 2.5 mg/dL Blood 12/14/2024 4:57 AM CDT 12/14/2024 5:10 AM CDT Gia Erwin Argenta JUNIOR BOOKKEEPER LAB BLOOD ORDERABLES Final Res ult Performing Organization Address [facility] de Phone Number [facility] [place] [address] * (ABNORMAL) Blood gas, arterial (12/14/2024 4:57 AM CDT) pH, Art 7.46(H) 7.35 - 7.45 PCO2, Arterial 36 35 - 45 mmHg [facility] PO2, Arterial 184(H) 83 - 108 mmHg [facility] HCO3 Art (Calculated) 26 20 - 30 mmol/L [facility] BE, art 2 mmol/L [facility] Comment: Interpretive Data No Reference Range Established Current Interpretive Data was last revised on 2017 O2 Sat Art (Measured) 100(H) 90 - 95 % [facility] Blood 12/14/2024 4:57 AM CDT 12/14/2024 5:04 AM CDT Gia Mercedes JUNIOR BOOKKEEPER LAB BLOOD ORDERABLES Final Res ult Performing Organization Address City/[facility]/ZIP Co de Phone Number [facility] Department [place] [address] * (ABNORMAL) Basic metabolic panel (12/14/2024 4:57 AM CDT) [facility] Sodium 141 135 - 145 mmol/L Potassium, pl 4.2 3.3 - 4.9 mmol/L [facility] Chloride 107 97 - 110 mmol/L [facility] CO2 26 22 - 32 mmol/L [facility] Anion gap 8 2 - 15 mmol/L [facility] BUN 24 6 - 25 mg/dL [facility] Creatinine 0.79 0.60 - 1.10 mg/dL [facility] Glucose 140 70 - 199 mg/dL [facility] Comment: Interpretive Data Fasting glucose >/= [...] 2022. Calcium 8.4(L) 8.5 - 10.3 mg/dL [facility] Blood 12/14/2024 4:57 AM CDT 12/14/2024 5:10 AM CDT Gia Mercedes JUNIOR BOOKKEEPER LAB BLOOD ORDERABLES Final Res ult Performing Organization Address [facility]/ZIP Co de Phone Number [facility] Department [place] [address] * POCT glucose (12/14/2024 4:55 AM CDT) Glucose, POC 156 70 - 199 mg/dL Blood 12/14/2024 4:55 AM CDT 12/14/2024 4:55 AM CDT us Indiana Mortensen MD LAB POCT ORDERABLES - DEVICE Final Result [facility] Department [place] [address] * (ABNORMAL) POC Blood Gas and Chemistries, Arterial - (12/14/2024 2:44 AM CDT) pH, Art POC 7.44 7.35 - 7.45 pCO2, Art POC 34(L) 35 - 45 mmHg [facility] pO2, Art POC 135(H) 83 - 108 mmHg [facility] Na, POC 141 135 - 145 mmol/L [facility] K POC 3.9 3.3 - 4.9 mmol/L [facility] Comment: Interpretive Data Not all point of care methods assess for hemolysis. Confirm with instrument and retest K+ if not consistent with clinical signs and symptoms. Current Interpretive Data was last revised on 2023. Cl, POC 108 97 - 110 mmol/L [facility] Ionized Ca, POC 4.83 4.50 - 5.10 mg/dL [facility] Glucose, POC 162 70 - 199 mg/dL [facility] Lactate POC 2.2(H) 0.7 - 2.0 mmol/L [facility] SO2 (chandra) arterial 100(H) 90 - 95 % [facility] Base excess, POC -0.8 mmol/L [facility] HCO3, Art POC 23 20 - 30 mmol/L [facility] Hct, POC 25.0(L) 36.3 - 45.3 % [facility] Total Hb, POC 8.2(L) 11.9 - 15.5 g/dL [facility] Blood 12/14/2024 2:44 AM CDT 12/14/2024 2:44 AM CDT us Indiana Mortensen MD LAB POCT ORDERABLES - DEVICE Final Result ALEX MC[facility]ON [facility] Department [place] [address] * [place] INSJ NON-TUNNELED CENTRAL VENOUS CATH AGE 5 YR/> (12/14/2024 1:52 AM CDT) Narrative Esdras Quevedo MD - 12/14/2024 1:52 AM CDT Esdras Quevedo MD 12/19/2024 2:18 PM Central Line Insertion Date/Time: 12/14/2024 1:52 AM Performed by: Hieu Silver MD Authorized by: Hieu Silver MD [place] Protocol: Informed consent: Unable to obtain due [...] IN CLINIC/BEDSIDE ORDERA BLES Final Result * [place] INSJ NON-TUNNELED CENTRAL VENOUS CATH AGE 5 YR/> (12/14/2024 1:45 AM CDT) Esdras Caballero MD - 12/14/2024 1:45 AM CDT Esdras Quevedo MD 12/19/2024 2:18 PM Central Line Insertion Date/Time: 12/14/2024 1:45 AM Performed by: Hieu Silver MD Authorized by: Hieu Silver MD [place] Protocol: Informed consent: Unable to obtain due [...] IN CLINIC/BEDSIDE ORDERA BLES Final Result * [place] ARTL CATHJ/CANNULJ MNTR/TRANSFUSION SPX PRQ (12/14/2024 1:44 AM CDT) Esdras Caballero MD - 12/14/2024 1:44 AM CDT Esdras Quevedo MD 12/19/2024 2:18 PM Arterial Line Insertion Date/Time: 12/14/2024 1:44 AM Performed by: Hieu Silver MD Authorized by: Hieu Silver MD [place] Protocol: RN Notified of Procedure: yes Informed [...] AM: A feeding tube courses below the [id number]. A right internal jugular transvenous pacing wire [...] feeding tube remains present coursing below the [id number]. Aortic valve replacement remains present. Sternal plates [...] placed. A feeding tube courses below the [id number]. An aortic valve replacement remains present. Sternal [...] AM: A feeding tube courses below the okgbz-sf-jtlv. A right internal jugular transvenous pacing wire [...] feeding tube remains present coursing below the kepdt-sm-znxa. Aortic valve replacement remains present. Sternal plates [...] placed. A feeding tube courses below the wwkrd-bd-oqjd. An aortic valve replacement remains present. Sternal plates remain aligned. There are redemonstrated bibasilar airspace opacities which are not significantly changed and may represent atelectasis versus aspiration and/or pneumonia in the appropriate clinical context. A small left pleural effusion is present, slightly increased from prior. There is no pneumothorax. The cardiomediastinal silhouette is unchanged. Electronically signed by: Peter Spears M.D. Gia Mercedes NP IMG XR PROCEDURES Final Result * XR Chest 1 View (12/14/2024 1:15 AM CDT) Anatomical Region Laterality Modality Body, Chest N/A Digital Radiogra phy 12/14/2024 8:11 AM CDT Impressions 12/14/2024 8:11 AM CDT 1. 12/14/2024 12:17 AM: A feeding tube courses below the xvltf-xz-apba. A right internal jugular transvenous pacing wire [...] feeding tube remains present coursing below the eeoia-mw-lvla. Aortic valve replacement remains present. Sternal plates [...] placed. A feeding tube courses below the pvkws-ae-wrvq. An aortic valve replacement remains present. Sternal plates remain aligned. There are redemonstrated bibasilar airspace opacities which are not significantly changed and may represent atelectasis versus aspiration and/or pneumonia in the appropriate clinical context. A small left pleural effusion is present, slightly increased from prior. There is no pneumothorax. The cardiomediastinal silhouette is unchanged. Electronically signed by: Peter Speasr M.D. Narrative 12/14/2024 8:11 AM CDT EXAMINATION: XR CHEST 1 VIEW COMPARISON: 12/13/2024 7:55 PM Procedure Note Peter Spears MD PhD - 12/14/2024 EXAMINATION: XR CHEST 1 VIEW COMPARISON: 12/13/2024 7:55 PM IMPRESSION: 1. 12/14/2024 12:17 AM: A feeding tube courses below the wxopp-vk-ywsu. A right internal jugular transvenous pacing wire [...] feeding tube remains present coursing below the ztikq-qk-yaza. Aortic valve replacement remains present. Sternal plates [...] placed. A feeding tube courses below the lgtrc-jb-dycm. An aortic valve replacement remains present. Sternal plates remain aligned. There are redemonstrated bibasilar airspace opacities which are not significantly changed and may represent atelectasis versus aspiration and/or pneumonia in the appropriate clinical context. A small left pleural effusion is present, slightly increased from prior. There is no pneumothorax. The cardiomediastinal silhouette is unchanged. Electronically signed by: Peter Spears M.D. Gia Mercedes NP IMG XR PROCEDURES Final Result * XR Chest 1 View (12/14/2024 12:20 AM CDT) Anatomical Region Laterality Modality Body, Chest N/A Digital Radiogra phy 12/14/2024 8:11 AM CDT Impressions 12/14/2024 8:11 AM CDT 1. 12/14/2024 12:17 AM: A feeding tube courses below the hpvur-tj-onmo. A right internal jugular transvenous pacing wire [...] feeding tube remains present coursing below the zswap-yi-yiah. Aortic valve replacement remains present. Sternal plates [...] placed. A feeding tube courses below the jtpub-qy-hfrx. An aortic valve replacement remains present. Sternal [...] COMPARISON: 12/13/2024 7:55 PM Procedure Note Peter Speras MD PhD - 12/14/2024 EXAMINATION: XR CHEST 1 VIEW COMPARISON: 12/13/2024 7:55 PM IMPRESSION: . 12/14/2024 12:17 AM: A feeding tube courses below the wxthg-zf-mfhs. A right internal jugular transvenous pacing wire [...] feeding tube remains present coursing below the ytobw-ov-wlbs. Aortic valve replacement remains present. Sternal plates [...] placed. A feeding tube courses below the chyaa-ai-obut. An aortic valve replacement remains present. Sternal plates remain aligned. There are redemonstrated bibasilar airspace opacities which are not significantly changed and may represent atelectasis versus aspiration and/or pneumonia in the appropriate clinical context. A small left pleural effusion is present, slightly increased from prior. There is no pneumothorax. The cardiomediastinal silhouette is unchanged. Electronically signed by: Peter Spears M.D. Gia Mercedes JUNIOR BOOKKEEPER IMG XR PROCEDURES Final Result * (ABNORMAL) POC Blood Gas and Chemistries, Arterial - (12/13/2024 11:32 PM CDT) pH, Art POC 7.56(H) 7.35 - 7.45 pCO2, Art POC 23(L) 35 - 45 mmHg [facility] pO2, Art POC 138(H) 83 - 108 mmHg [facility] Na, POC 140 135 - 145 mmol/L [facility] K POC 4.0 3.3 - 4.9 mmol/L [facility] Comment: Interpretive Data Not all point of care methods assess for hemolysis. Confirm with instrument and retest K+ if not consistent with clinical signs and symptoms. Current Interpretive Data was last revised on 2023. Cl, POC 109 97 - 110 mmol/L [facility] Ionized Ca, POC 4.83 4.50 - 5.10 mg/dL [facility] Glucose, POC 192 70 - 199 mg/dL [facility] Lactate POC 2.3(H) 0.7 - 2.0 mmol/L [facility] SO2 (chandra) arterial 99(H) 90 - 95 % [facility] Base excess, POC -0.9 mmol/L [facility] HCO3, Art POC 21 20 - 30 mmol/L [facility] Hct, POC 26.0(L) 36.3 - 45.3 % [facility] Total Hb, POC 8.5(L) 11.9 - 15.5 g/dL [facility] Blood 12/13/2024 11:3 2 PM CDT 12/13/2024 11:32 PM CDT Indiana Mortensen MD LAB POCT ORDERABLES - DEVICE Final Result Performing Organization Address City/[facility] Co de Phone Number [facility] Department [place] [address] * Potassium, whole blood (12/13/2024 10:24 PM CDT) Potassium, bld 4.1 3.3 - 4.9 mmol/L Blood 12/13/2024 10:2 4 PM CDT 12/13/2024 10:32 PM CDT Gia Mercedes NP LAB BLOOD ORDERABLES Final Res ult Performing Organization Address [facility] Co de Phone Number [facility] Department [place] [address] * eGFR (12/13/2024 10:24 PM CDT) eGFR [...] PM CDT 12/13/2024 10:56 PM CDT Angela Corona Brooke JUNIOR BOOKKEEPER LAB BLOOD ORDERABLES Final Result [facility] Department [place] [address] * Calcium, ionized (12/13/2024 10:24 PM CDT) [facility] Calcium, Ionized 4.50 4.50 - 5.10 mg/dL Blood 12/13/2024 10:2 4 PM CDT 12/13/2024 10:32 PM CDT Gia Mercedes JUNIOR BOOKKEEPER LAB BLOOD ORDERABLES Final Res ult Performing Organization Address [facility] Co de Phone Number [facility] Department [place] [address] * (ABNORMAL) CBC without differential (12/13/2024 10:24 PM CDT) [facility] WBC 16.96(H) 3.80 - 9.90 K/cumm Hgb 7.8(L) 11.9 - 15.5 g/dL [facility] Hct 23.6(L) 35.6 - 45.5 % [facility] Plt 224 150 - 400 K/cumm [facility] MPV 9.0(L) 9.1 - 12.3 fL [facility] RBC 2.61(L) 3.90 - 5.20 M/cumm [facility] MCV 90.4 81.3 - 96.4 fL [facility] MCH 29.9 27.1 - 33.3 pg [facility] MCHC 33.1 32.3 - 35.7 g/dL [facility] RDW CV 14.0 11.1 - 14.9 % [facility] RDW SD 45.9 35.7 - 48.1 fL [facility] NRBC abs 0.12(H) 0.00 - 0.01 K/cumm [facility] Blood 12/13/2024 10:2 4 PM CDT 12/13/2024 10:37 PM CDT Angela Chloe Cox JUNIOR BOOKKEEPER LAB BLOOD ORDERABLES Final Result Performing Organization Address [facility] Co de Phone Number [facility] [place] [address] * Phosphorus (12/13/2024 10:24 PM CDT) [facility] Phosphorus, pl 4.0 2.3 - 4.5 mg/dL Blood 12/13/2024 10:2 4 PM CDT 12/13/2024 10:32 PM CDT Angela Cox JUNIOR BOOKKEEPER LAB BLOOD ORDERABLES Final Result Performing Organization Address [facility] de Phone Number [facility] Department [place] [address] * Magnesium (12/13/2024 10:24 PM CDT) [facility] Magnesium 2.1 1.4 - 2.5 mg/dL Blood 12/13/2024 10:2 4 PM CDT 12/13/2024 10:32 PM CDT Indiana Mortensen MD LAB BLOOD ORDERABLES Final Re sult Performing Organization Address [facility] [place] [address] * (ABNORMAL) Basic metabolic panel (12/13/2024 10:24 PM CDT) [facility] Sodium 143 135 - 145 mmol/L Potassium, pl 4.3 3.3 - 4.9 mmol/L [facility] Chloride 109 97 - 110 mmol/L [facility] CO2 25 22 - 32 mmol/L [facility] Anion gap 9 2 - 15 mmol/L [facility] BUN 24 6 - 25 mg/dL [facility] Creatinine 0.81 0.60 - 1.10 mg/dL [facility] Glucose 137 70 - 199 mg/dL [facility] Comment: Interpretive Data Fasting glucose >/= [...] 2022. Calcium 8.4(L) 8.5 - 10.3 mg/dL [facility] Blood 12/13/2024 10:2 4 PM CDT 12/13/2024 10:32 PM CDT us Angela Cox JUNIOR BOOKKEEPER LAB BLOOD ORDERABLES Final Result [facility] Department [place] [address] * XR Chest 1 View (12/13/2024 8:06 PM CDT) Anatomical Region Laterality Modality Body, Chest N/A Computed Radiogr aphy 12/13/2024 10:2 6 PM CDT Impressions 12/13/2024 10:26 PM CDT 1. 12/13/2024 8:32 AM: A feeding tube courses below the ttwrp-tt-nnwz. Aortic valve replacement is present. Sternal plates are aligned. There has been removal of right internal jugular central venous catheter. The lung volumes remain small bilaterally with moderate bibasilar atelectasis and a small left pleural effusion. No pneumothorax is identified. The cardiomediastinal silhouette is unchanged. 2. 12/13/2024 5:36 PM: A feeding tube courses below the qbllu-ti-reih. An aortic valve replacement is present. Sternal [...] AM: A feeding tube courses below the hvttr-ti-tpfa. Aortic valve replacement is present. Sternal plates are aligned. There has been removal of right internal jugular central venous catheter. The lung volumes remain small bilaterally with moderate bibasilar atelectasis and a small left pleural effusion. No pneumothorax is identified. The cardiomediastinal silhouette is unchanged. 2. 12/13/2024 5:36 PM: A feeding tube courses below the arscu-db-lnju. An aortic valve replacement is present. Sternal plates are aligned. The lung volumes remain small with mild bibasilar atelectasis. There may be a trace left pleural effusion. No pneumothorax is identified. The cardiomediastinal silhouette is unchanged. 3. 12/13/2024 7:55 PM: There is no significant interval change. No pneumothorax is identified. Electronically signed by: Peter Spears M.D. Alecia Acosta JUNIOR BOOKKEEPER IMG XR PROCEDURES Final Result * POCT glucose (12/13/2024 7:44 PM CDT) [facility] Signature Glucose, POC 152 70 - 199 mg/dL Blood 12/13/2024 7:44 PM CDT 12/13/2024 7:44 PM CDT Indiana Mortensen MD LAB POCT ORDERABLES - DEVICE Final Result [facility] Department [place] [address] * Critical Care (12/13/2024 6:17 PM CDT) [...] plan with the ICU team and other medical/cycle consultant staff, making frequent assessments and decisions [...] documenting in the medical record Gia Mercedes JUNIOR BOOKKEEPER IN CLINIC/BEDSIDE ORDERABLES F inal Result * XR Chest 1 View (12/13/2024 5:50 PM CDT) Anatomical Region Laterality Modality Body, Chest N/A Computed Radiogr aphy 12/13/2024 10:2 6 PM CDT Impressions 12/13/2024 10:26 PM CDT 1. 12/13/2024 8:32 AM: A feeding tube courses below the uabwk-nf-pqbe. Aortic valve replacement is present. Sternal plates are aligned. There has been removal of right internal jugular central venous catheter. The lung volumes remain small bilaterally with moderate bibasilar atelectasis and a small left pleural effusion. No pneumothorax is identified. The cardiomediastinal silhouette is unchanged. 2. 12/13/2024 5:36 PM: A feeding tube courses below the bdtit-hf-bhht. An aortic valve replacement is present. Sternal [...] AM: A feeding tube courses below the tncof-lk-tgfm. Aortic valve replacement is present. Sternal plates are aligned. There has been removal of right internal jugular central venous catheter. The lung volumes remain small bilaterally with moderate bibasilar atelectasis and a small left pleural effusion. No pneumothorax is identified. The cardiomediastinal silhouette is unchanged. 2. 12/13/2024 5:36 PM: A feeding tube courses below the muctv-kb-zlvw. An aortic valve replacement is present. Sternal [...] IMG XR PROCEDURES Final Resul t * eGFR [...] NP LAB BLOOD ORDERABLES Brenda wharton Result [facility] Department [place] [address] * (ABNORMAL) Basic metabolic panel (12/13/2024 2:54 PM CDT) [facility] Sodium 143 135 - 145 mmol/L Potassium, pl 4.1 3.3 - 4.9 mmol/L [facility] Chloride 107 97 - 110 mmol/L [facility] CO2 26 22 - 32 mmol/L [facility] Anion gap 10 2 - 15 mmol/L [facility] BUN 24 6 - 25 mg/dL [facility] Creatinine 0.75 0.60 - 1.10 mg/dL [facility] Glucose 187 70 - 199 mg/dL [facility] Comment: Interpretive Data Fasting glucose >/= [...] 2022. Calcium 8.2(L) 8.5 - 10.3 mg/dL [facility] Blood 12/13/2024 2:54 PM CDT 12/13/2024 3:04 PM CDT us Elizabeth Zaldivar NP LAB BLOOD ORDERABLES Brenda l Result Performing Organization Address City/[facility]/ZIP Co de Phone Number [facility] Department [place] [address] * POCT glucose (12/13/2024 2:39 PM CDT) [facility] Signature Glucose, POC 176 70 - 199 mg/dL Blood 12/13/2024 2:39 PM CDT 12/13/2024 2:39 PM CDT us Indiana Mortensen MD LAB POCT ORDERABLES - DEVICE Final Result Performing Organization Address City/[facility] Co de Phone Number [facility] Department [place] [address] * EEG (12/13/2024 2:04 PM CDT) Anatomical Region Laterality Modality EEG Narrative 12/14/2024 12:24 PM CDT Routine EEG Report Patient Name: Adi Flowers [facility] Medical Record Number (MRN): [id number] [facility] Record: [id number] Date of (): 1960 EEG Date: 12/13/2024 [...] 32 channel EEG recording acquired on a Smartdate EEG-1200 acquisition system. Scalp electrodes were placed [...] Attending: Júnior Gavin MD us Elizabeth Zaldivar JUNIOR BOOKKEEPER NEUROLOGY ORDERABLES Brenda l Result * SUBGRADE ROLLER OPERATOR Evaluation and Treatment (12/13/2024 1:42 PM CDT) Narrative Cristal Thomas SLP - 12/13/2024 1:42 PM CDT Crsital Thomas SLP 12/13/2024 2:25 PM Speech-Language Pathology: [...] to monitor aortic valve stenosis. 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 12/09: s/p [...] Aspiration Risk: No aspiration risk (170-200) Plan SUBGRADE ROLLER OPERATOR Frequency of Services during current admission: Discharge from this Service (for swallow) SUBGRADE ROLLER OPERATOR Recommendation (Add'l Services): Defer at this time Further Assessment/Follow up Indicated: Next Visit Plan:No further ST warranted for swallow Additional Referrals: none Please reference care plan for treatment goals, if indicated. Discharge Summary Statement If this is the last swallow therapy visit, this serves as the discharge summary. us Alecia Acosta NP SUBGRADE ROLLER OPERATOR ORDERABLES Final Re sult * CT Head [...] 9 AM CDT 12/13/2024 11:29 AM CDT Indiana Mortensen MD LAB POCT ORDERABLES - DEVICE Final Result [facility] Department [place] [address] * eGFR (12/13/2024 10:20 AM CDT) eGFR [...] ORDERABLES Brenda l Result Performing Organization Address City/[facility]/ZIP Co de Phone Number [facility] [place] [address] * (ABNORMAL) Basic metabolic panel (12/13/2024 10:20 AM CDT) Sodium 147(H) 135 - 145 mmol/L Potassium, pl 4.2 3.3 - 4.9 mmol/L [facility] Chloride 112(H) 97 - 110 mmol/L [facility] CO2 27 22 - 32 mmol/L [facility] Anion gap 8 2 - 15 mmol/L [facility] BUN 27(H) 6 - 25 mg/dL [facility] Creatinine 0.81 0.60 - 1.10 mg/dL [facility] Glucose 150 70 - 199 mg/dL [facility] Comment: Interpretive Data Fasting glucose >/= [...] 2022. Calcium 8.9 8.5 - 10.3 mg/dL [facility] Blood 12/13/2024 10:2 0 AM CDT 12/13/2024 10:33 AM CDT Elizabeth Zaldivar NP LAB BLOOD ORDERABLES Brenda l Result Performing Organization Address [facility]/ZIP Co de Phone Number [facility] Department [place] [address] * POCT glucose (12/13/2024 8:34 AM CDT) Glucose, POC 147 70 - 199 mg/dL Blood 12/13/2024 8:34 AM CDT 12/13/2024 8:34 AM CDT us Indiana Mortenesn MD LAB POCT ORDERABLES - DEVICE Final Result [facility] Department [place] [address] * XR Chest 1 View (12/13/2024 8:32 AM CDT) Anatomical Region Laterality Modality Body, Chest N/A Computed Radiogr aphy 12/13/2024 10:2 6 PM CDT Impressions 12/13/2024 10:26 PM CDT 1. 12/13/2024 8:32 AM: A feeding tube courses below the einaa-xi-fxom. Aortic valve replacement is present. Sternal plates are aligned. There has been removal of right internal jugular central venous catheter. The lung volumes remain small bilaterally with moderate bibasilar atelectasis and a small left pleural effusion. No pneumothorax is identified. The cardiomediastinal silhouette is unchanged. 2. 12/13/2024 5:36 PM: A feeding tube courses below the mszgj-mb-ukhx. An aortic valve replacement is present. Sternal [...] AM: A feeding tube courses below the rvfff-um-ginv. Aortic valve replacement is present. Sternal plates are aligned. There has been removal of right internal jugular central venous catheter. The lung volumes remain small bilaterally with moderate bibasilar atelectasis and a small left pleural effusion. No pneumothorax is identified. The cardiomediastinal silhouette is unchanged. 2. 12/13/2024 5:36 PM: A feeding tube courses below the ffuqs-ex-tdwn. An aortic valve replacement is present. Sternal [...] 3:27 AM CDT 12/13/2024 3:51 AM CDT us Angela Cox JUNIOR BOOKKEEPER LAB BLOOD ORDERABLES Final Result [facility] Department [place] [address] * POCT glucose (12/13/2024 3:27 AM CDT) Glucose, POC 145 70 - 199 mg/dL Blood 12/13/2024 3:27 AM CDT 12/13/2024 3:27 AM CDT us Indiana Mortensen MD LAB POCT ORDERABLES - DEVICE Final Result Performing Organization Address [facility] Co de Phone Number [facility] [place] [address] * eGFR (12/12/2024 10:37 PM CDT) eGFR 73 >=60 mL/min/1. 73 [...] 12/12/2024 10:48 PM CDT us Angela Cox NP LAB BLOOD ORDERABLES Final Result Performing Organization Address [facility] Co de Phone Number [facility] [place] [address] * (ABNORMAL) CBC without differential (12/12/2024 10:37 PM CDT) Pathologist [facility] WBC 15.50(H) 3.80 - 9.90 K/cumm Hgb 7.6(L) 11.9 - 15.5 g/dL [facility] Hct 22.5(L) 35.6 - 45.5 % [facility] Plt 189 150 - 400 K/cumm [facility] MPV 9.1 9.1 - 12.3 fL [facility] RBC 2.49(L) 3.90 - 5.20 M/cumm [facility] MCV 90.4 81.3 - 96.4 fL [facility] MCH 30.5 27.1 - 33.3 pg [facility] MCHC 33.8 32.3 - 35.7 g/dL [facility] RDW CV 14.1 11.1 - 14.9 % [facility] RDW SD 46.1 35.7 - 48.1 fL [facility] NRBC abs 0.08(H) 0.00 - 0.01 K/cumm [facility] Blood 12/12/2024 10:3 7 PM CDT 12/12/2024 10:48 PM CDT Angela Cox JUNIOR BOOKKEEPER LAB BLOOD ORDERABLES Final Result Performing Organization Address City/[facility]/ZIP Co de Phone Number [facility] Department [place] [address] * Phosphorus (12/12/2024 10:37 PM CDT) [facility] Phosphorus, pl 4.2 2.3 - 4.5 mg/dL Blood 12/12/2024 10:3 7 PM CDT 12/12/2024 10:48 PM CDT Angela Cox JUNIOR BOOKKEEPER LAB BLOOD ORDERABLES Final Result [facility] Department [place] [address] * (ABNORMAL) Basic metabolic panel (12/12/2024 10:37 PM CDT) [facility] Sodium 149(H) 135 - 145 mmol/L Potassium, pl 4.3 3.3 - 4.9 mmol/L [facility] Chloride 112(H) 97 - 110 mmol/L [facility] CO2 27 22 - 32 mmol/L [facility] Anion gap 10 2 - 15 mmol/L [facility] BUN 27(H) 6 - 25 mg/dL [facility] Creatinine 0.89 0.60 - 1.10 mg/dL [facility] Glucose 155 70 - 199 mg/dL [facility] Comment: Interpretive Data Fasting glucose >/= [...] 2022. Calcium 8.6 8.5 - 10.3 mg/dL [facility] Blood 12/12/2024 10:3 7 PM CDT 12/12/2024 10:48 PM CDT us Angela Cox NP LAB BLOOD ORDERABLES Final Result Performing Organization Address City/[facility]/ZIP Co de Phone Number [facility] Department [place] [address] * POCT glucose (12/12/2024 10:36 PM CDT) Glucose, POC 157 70 - 199 mg/dL Blood 12/12/2024 10:3 6 PM CDT 12/12/2024 10:36 PM CDT us Indiana Mortensen MD LAB POCT ORDERABLES - DEVICE Final Result Performing Organization Address City/[facility]/ZIP Co de Phone Number [facility] Department [place] [address] * POCT glucose (12/12/2024 7:33 PM CDT) Glucose, POC 155 70 - 199 mg/dL Blood 12/12/2024 7:33 PM CDT 12/12/2024 7:33 PM CDT us Indiana Mortensen MD LAB POCT ORDERABLES - DEVICE Final Result Performing Organization Address [facility] Co de Phone Number [facility] [place] [address] * Potassium, whole blood (12/12/2024 7:25 PM CDT) [facility] Potassium, bld 4.2 3.3 - 4.9 mmol/L Blood 12/12/2024 7:25 PM CDT 12/12/2024 8:28 PM CDT Angela Cox NP LAB BLOOD ORDERABLES Final Result Performing Organization Address [facility] de Phone Number [facility] [place] [address] * Type and screen (12/12/2024 7:25 PM CDT) [facility] Sarah, indirect Negative ABO Rh B Negative [facility] Blood 12/12/2024 7:25 PM CDT 12/12/2024 9:14 PM CDT Narrative [facility] - 12/12/2024 10:20 PM CDT Has the patient had Daratumumab or Isatuximab in the past 6 months?->Unknown us Indiana Mortensen MD LAB BLOOD BANK TEST ORDERABLE S Final Result Performing Organization Address [facility] [place] [address] * Critical Care (12/12/2024 6:47 PM CDT) Narrative Esdras Quevedo MD - 12/12/2024 6:47 PM CDT Esdrsa Quevedo MD 12/19/2024 2:21 PM Critical Care [...] plan with the ICU team and other medical/cycle consultant staff, making frequent assessments and decisions [...] LAB POCT ORDERABLES - DEVICE Final Result [facility] Department [place] [address] * (ABNORMAL) Protime-INR (12/12/2024 12:03 PM CDT) Pathologist [facility] PT 14.4(H) 9.7 - 13.0 sec INR 1.33(H) 0.90 - 1.20 [facility] Comment: Interpretive data Oral anticoagulant therapeutic ranges: Venous thromboembolism prophylaxis or treatment: 2.0-3.0 CARDIOLOGY Standard range: 2.0-3.0 High-intensity range: 2.5-3.5 Refer to indication-specific guidelines for appropriate target ranges for prosthetic heart valve replacement. Current interpretive data was last revised on 2019. Blood 12/12/2024 12:0 3 PM CDT 12/12/2024 12:16 PM CDT Alecia Acosta JUNIOR BOOKKEEPER LAB BLOOD ORDERABLES Fin al Result [facility] [place] [address] * ECG 12 lead (12/12/2024 11:50 AM CDT) Ventricular Rate EKG/Min 98 BPM [facility] Atrial Rate 98 BPM [facility] KS-Interval (MSEC) 186 ms [facility] QRS-Interval (MSEC) 132 ms [facility] QT-Interval (MSEC) 362 ms [facility] QTc 462 ms [facility] P [place] 54 degrees [facility] R [place] -29 degrees [facility] T [place] 58 degrees [facility] Diagnosis Normal sinus rhythm Right bundle branch block Abnormal ECG Confirmed by Bety RODRIGUEZ [facility] ([id number]) on 12/12/2024 10:15:15 PM [facility] 12/12/2024 11:5 0 AM CDT 12/12/2024 10:15 PM CDT us Indiana Mortensen MD ECG ORDERABLES Final Result [facility] * POCT glucose (12/12/2024 11:04 AM CDT) Glucose, POC 159 70 - 199 mg/dL Blood 12/12/2024 11:0 4 AM CDT 12/12/2024 11:04 AM CDT Indiana Mortensen MD LAB POCT ORDERABLES - DEVICE Final Result [facility] Department [place] [address] * XR Chest 1 View (12/12/2024 7:35 [...] signed by: Sharlene Claros M.D. us Angela Muñozwesly Cox JUNIOR BOOKKEEPER IMG XR PROCEDURES Fi nal Result * POCT glucose (12/12/2024 7:32 AM CDT) Glucose, POC 161 70 - 199 mg/dL Blood 12/12/2024 7:32 AM CDT 12/12/2024 7:32 AM CDT us Indiana Mortensen MD LAB POCT ORDERABLES - DEVICE Final Result [facility] Department [place] [address] * Critical Care (12/12/2024 6:27 AM CDT) Narrative Rhina Jacobsen MD - 12/12/2024 6:27 AM CDT Rhina Jacobesn MD 12/12/2024 5:38 PM Critical Care Performed [...] plan with the ICU team and other medical/cycle consultant staff, making frequent assessments and decisions [...] in the medical record us Alecia Acosta JUNIOR BOOKKEEPER IN CLINIC/BEDSIDE ORDERA BLES Final Result * Potassium, whole blood (12/12/2024 5:23 AM CDT) Potassium, bld 4.2 3.3 - 4.9 mmol/L Blood 12/12/2024 5:23 AM CDT 12/12/2024 5:33 AM CDT Angela Cox NP LAB BLOOD ORDERABLES Final Result Performing Organization Address [facility] Co de Phone Number [facility] Department [place] [address] * POCT glucose (12/12/2024 3:16 AM CDT) Glucose, POC 152 70 - 199 mg/dL Blood 12/12/2024 3:16 AM CDT 12/12/2024 3:16 AM CDT Indiana Mortensen MD LAB POCT ORDERABLES - DEVICE Final Result Performing Organization Address City/[facility] Co de Phone Number [facility] Department [place] [address] * Oxyhemoglobin, central venous (12/12/2024 12:09 AM CDT) Oxyhemoglobin, CV 62.7 % Comment: Interpretive Data No reference range established. Current interpretive data was last revised 2019. Blood 12/12/2024 12:0 9 AM CDT 12/12/2024 12:17 AM CDT Angela Magdalene Griesbaum JUNIOR BOOKKEEPER LAB BLOOD ORDERABLES Final Result Performing Organization Address [facility] Co de Phone Number [facility] [place] [address] * eGFR (12/12/2024 12:09 AM CDT) eGFR [...] 12/12/2024 1:15 AM CDT us Angela Cox JUNIOR BOOKKEEPER LAB BLOOD ORDERABLES Final Result Performing Organization Address [facility] Co de Phone Number [facility] [place] [address] * Calcium, ionized (12/12/2024 12:09 AM CDT) Calcium, Ionized 4.69 4.50 - 5.10 mg/dL Blood 12/12/2024 12:0 9 AM CDT 12/12/2024 12:31 AM CDT Gia Mercedes JUNIOR BOOKKEEPER LAB BLOOD ORDERABLES Final Res ult Performing Organization Address [facility] Co de Phone Number [facility] Department [place] [address] * (ABNORMAL) Protime-INR (12/12/2024 12:09 AM CDT) Pathologist [facility] PT 15.2(H) 9.7 - 13.0 sec INR 1.40(H) 0.90 - 1.20 [facility] Comment: Interpretive data Oral anticoagulant therapeutic ranges: Venous thromboembolism prophylaxis or treatment: 2.0-3.0 CARDIOLOGY Standard range: 2.0-3.0 High-intensity range: 2.5-3.5 Refer to indication-specific guidelines for appropriate target ranges for prosthetic heart valve replacement. Current interpretive data was last revised on 2019. Blood 12/12/2024 12:0 9 AM CDT 12/12/2024 12:30 AM CDT Angela Cox JUNIOR BOOKKEEPER LAB BLOOD ORDERABLES Final Result Performing Organization Address [facility] de Phone Number [facility] Department [place] [address] * (ABNORMAL) CBC without differential (12/12/2024 12:09 AM CDT) [facility] WBC 17.51(H) 3.80 - 9.90 K/cumm Hgb 8.2(L) 11.9 - 15.5 g/dL [facility] Hct 23.9(L) 35.6 - 45.5 % [facility] Plt 169 150 - 400 K/cumm [facility] MPV 9.0(L) 9.1 - 12.3 fL [facility] RBC 2.64(L) 3.90 - 5.20 M/cumm [facility] MCV 90.5 81.3 - 96.4 fL [facility] MCH 31.1 27.1 - 33.3 pg [facility] MCHC 34.3 32.3 - 35.7 g/dL [facility] RDW CV 14.1 11.1 - 14.9 % [facility] RDW SD 46.1 35.7 - 48.1 fL [facility] NRBC abs 0.04(H) 0.00 - 0.01 K/cumm [facility] Blood 12/12/2024 12:0 9 AM CDT 12/12/2024 12:26 AM CDT Angela Cox JUNIOR BOOKKEEPER LAB BLOOD ORDERABLES Final Result Performing Organization Address City/[facility] Co de Phone Number [facility] [place] [address] * Phosphorus (12/12/2024 12:09 AM CDT) Pathologist [facility] Phosphorus, pl 2.6 2.3 - 4.5 mg/dL Blood 12/12/2024 12:0 9 AM CDT 12/12/2024 1:15 AM CDT Angela Chloe Cox JUNIOR BOOKKEEPER LAB BLOOD ORDERABLES Final Result Performing Organization Address [facility] de Phone Number [facility] Department [place] [address] * Magnesium (12/12/2024 12:09 AM CDT) Pathologist [facility] Magnesium 2.2 1.4 - 2.5 mg/dL Blood 12/12/2024 12:0 9 AM CDT 12/12/2024 1:15 AM CDT Angela Chloe Cox JUNIOR BOOKKEEPER LAB BLOOD ORDERABLES Final Result Performing Organization Address City/[facility] Co de Phone Number [facility] [place] [address] * (ABNORMAL) Basic metabolic panel (12/12/2024 12:09 AM CDT) Sodium 146(H) 135 - 145 mmol/L Potassium, pl 3.8 3.3 - 4.9 mmol/L [facility] Chloride 110 97 - 110 mmol/L [facility] CO2 28 22 - 32 mmol/L [facility] Anion gap 8 2 - 15 mmol/L [facility] BUN 25 6 - 25 mg/dL [facility] Creatinine 0.91 0.60 - 1.10 mg/dL [facility] Glucose 173 70 - 199 mg/dL [facility] Comment: Interpretive Data Fasting glucose >/= [...] 2022. Calcium 8.6 8.5 - 10.3 mg/dL [facility] Blood 12/12/2024 12:0 9 AM CDT 12/12/2024 1:15 AM CDT us Angela Cox JUNIOR BOOKKEEPER LAB BLOOD ORDERABLES Final Result Performing Organization Address City/[facility]/ZIP Co de Phone Number [facility] Department [place] [place] [address] * POCT glucose (12/11/2024 11:07 PM CDT) [facility] Signature Glucose, POC 159 70 - 199 mg/dL Blood 12/11/2024 11:0 7 PM CDT 12/11/2024 11:07 PM CDT us Indiana Mortensen MD LAB POCT ORDERABLES - DEVICE Final Result Performing Organization Address City/[facility]/ZIP Co de Phone Number [facility] Department [place] [address] * POCT glucose (12/11/2024 8:01 PM CDT) Glucose, POC 140 70 - 199 mg/dL Blood 12/11/2024 8:01 PM CDT 12/11/2024 8:01 PM CDT Indiana Mortensen MD LAB POCT ORDERABLES - DEVICE Final Result [facility] Department [place] [address] * Critical Care (12/11/2024 7:08 PM CDT) [...] plan with the ICU team and other medical/cycle consultant staff, making frequent assessments and decisions [...] - DEVICE Final Result Performing Organization Address [facility] de Phone Number [facility] [place] [address] * POCT glucose (12/11/2024 11:36 AM CDT) [facility] Glucose, POC 145 70 - 199 mg/dL Blood 12/11/2024 11:3 6 AM CDT 12/11/2024 11:36 AM CDT Indiana Mortensen MD LAB POCT ORDERABLES - DEVICE Final Result Performing Organization Address [facility] de Phone Number [facility] Department [place] [address] * Influenza A/B, RSV, and COVID-19 PCR Nasopharyngeal (12/11/2024 10:09 AM CDT) [facility] COVID-19 RNA Negative Negative [facility] Influenza A RNA Negative Negative [facility] Influenza B RNA Negative Negative [facility] RSV RNA Negative Negative [facility] Comment: Interpretive data: Testing performed by [facility] ([phone]). This test is performed using the [employer] Xpert Xpress CoV-2/Flu/RSV plus assay. This is a multiplex, real-time reverse transcriptase PCR assay intended for the qualitative detection of nucleic acid from SARS-CoV-2, influenza A, influenza B, and respiratory syncytial virus. This assay has been cleared by the [place] Food and Drug administration. The performance characteristics have been verified by the [facility]. Results must be considered in the clinical context, and a negative result does not rule out infection. Interpretive Data last revised 2023 Nasopharyngeal 12/11/2024 10 :09 AM CDT 12/11/2024 10:51 AM CDT Narrative [facility] - 12/11/2024 11:45 AM CDT Is the Patient experiencing symptoms consistent with COVID?->Yes Chapito Rodriguez JUNIOR BOOKKEEPER LAB MICROBIOLOGY - GENERAL OR DERABLES Final Result [facility] Department [place] [address] [facility] * XR Chest 1 View (12/11/2024 [...] Felipe Souza MD, PHD us Angela Cox JUNIOR BOOKKEEPER IMG XR PROCEDURES Fi nal Result * POCT glucose (12/11/2024 7:58 AM CDT) Glucose, POC 137 70 - 199 mg/dL Blood 12/11/2024 7:58 AM CDT 12/11/2024 7:58 AM CDT us Indiana Mortensen MD LAB POCT ORDERABLES - DEVICE Final Result [facility] Department [place] [address] * Critical Care (12/11/2024 6:53 AM CDT) [...] plan with the ICU team and other medical/cycle consultant staff, making frequent assessments and decisions [...] * POCT glucose (12/11/2024 4:39 AM CDT) [facility] Glucose, POC 144 70 - 199 mg/dL Blood 12/11/2024 4:39 AM CDT 12/11/2024 4:39 AM CDT Indiana Mortensen MD LAB POCT ORDERABLES - DEVICE Final Result Performing Organization Address City/[facility]/ZIP Co de Phone Number [facility] Department [place] [address] * Infection Prevention Justice auris PCR, surveillance Axilla/Groin (12/11/2024 12:09 AM CDT) [facility] Justice auris DNA Not Detected Not Detected [facility] Comment: Interpretive Data Testing performed by [facility] Molecular Infectious Disease Laboratory using the Stacie shirin 6800 Justice auris assay. This assay detects DNA from Justice auris using Real-Time PCR. This assay is laboratory developed and is not cleared by the [facility] Food and Drug Administration. The performance characteristics have been verified by the [facility] Infectious Disease Laboratory. Axilla/Groin 12/11/2024 12:0 9 AM CDT 12/11/2024 12:42 AM CDT Narrative [facility] - 12/11/2024 12:14 PM CDT Order placed by [facility] due to ring surveillance. us Instant Order Generic Provider LAB MICROBIOLOGY - GENERAL ORDERABLES Final Result Performing Organization Address City/[facility]/ZIP Co de Phone Number [facility] Department [place] [address] [facility] * eGFR (12/11/2024 12:01 AM CDT) [facility] eGFR 69 >=60 mL/min/1. 73 m2 Comment: [...] 12/11/2024 12:38 AM CDT us Angela Cox JUNIOR BOOKKEEPER LAB BLOOD ORDERABLES Final Result [facility] Department [place] [place] [address] * POCT glucose (12/11/2024 12:01 AM CDT) Glucose, POC 155 70 - 199 mg/dL Blood 12/11/2024 12:0 1 AM CDT 12/11/2024 12:01 AM CDT us Indiana Mortensen MD LAB POCT ORDERABLES - DEVICE Final Result Performing Organization Address City/[facility]/ZIP Co de Phone Number [facility] Department [place] [address] * (ABNORMAL) Protime-INR (12/11/2024 12:01 AM CDT) PT 14.5(H) 9.7 - 13.0 sec INR 1.33(H) 0.90 - 1.20 [facility] Comment: Interpretive data Oral anticoagulant therapeutic ranges: Venous thromboembolism prophylaxis or treatment: 2.0-3.0 CARDIOLOGY Standard range: 2.0-3.0 High-intensity range: 2.5-3.5 Refer to indication-specific guidelines for appropriate target ranges for prosthetic heart valve replacement. Current interpretive data was last revised on 2019. Blood 12/11/2024 12:0 1 AM CDT 12/11/2024 12:31 AM CDT Angela Cox NP LAB BLOOD ORDERABLES Final Result [facility] Department [place] [address] * (ABNORMAL) CBC without differential (12/11/2024 12:01 AM CDT) WBC 17.87(H) 3.80 - 9.90 K/cumm Hgb 8.8(L) 11.9 - 15.5 g/dL [facility] Hct 25.5(L) 35.6 - 45.5 % [facility] Plt 161 150 - 400 K/cumm [facility] MPV 8.9(L) 9.1 - 12.3 fL [facility] RBC 2.86(L) 3.90 - 5.20 M/cumm [facility] MCV 89.2 81.3 - 96.4 fL [facility] MCH 30.8 27.1 - 33.3 pg [facility] MCHC 34.5 32.3 - 35.7 g/dL [facility] RDW CV 14.1 11.1 - 14.9 % [facility] RDW SD 45.7 35.7 - 48.1 fL [facility] NRBC abs 0.00 0.00 - 0.01 K/cumm [facility] Blood 12/11/2024 12:0 1 AM CDT 12/11/2024 12:38 AM CDT Angela Chloe Cox JUNIOR BOOKKEEPER LAB BLOOD ORDERABLES Final Result Performing Organization Address City/[facility] Co de Phone Number [facility] [place] [address] * Phosphorus (12/11/2024 12:01 AM CDT) Pathologist [facility] Phosphorus, pl 2.9 2.3 - 4.5 mg/dL Blood 12/11/2024 12:0 1 AM CDT 12/11/2024 12:38 AM CDT Angela Chloe Cox JUNIOR BOOKKEEPER LAB BLOOD ORDERABLES Final Result Performing Organization Address [facility] de Phone Number [facility] [place] [address] * Magnesium (12/11/2024 12:01 AM CDT) [facility] Magnesium 2.3 1.4 - 2.5 mg/dL Blood 12/11/2024 12:0 1 AM CDT 12/11/2024 12:38 AM CDT Angela Brownenicki Cox JUNIOR BOOKKEEPER LAB BLOOD ORDERABLES Final Result Performing Organization Address [facility] de Phone Number [facility] [place] [address] * Basic metabolic panel (12/11/2024 12:01 AM CDT) Pathologist [facility] Sodium 141 135 - 145 mmol/L Potassium, pl 4.6 3.3 - 4.9 mmol/L [facility] Chloride 109 97 - 110 mmol/L [facility] CO2 25 22 - 32 mmol/L [facility] Anion gap 7 2 - 15 mmol/L [facility] BUN 21 6 - 25 mg/dL [facility] Creatinine 0.94 0.60 - 1.10 mg/dL [facility] Glucose 144 70 - 199 mg/dL [facility] Comment: Interpretive Data Fasting glucose >/= [...] 2022. Calcium 8.6 8.5 - 10.3 mg/dL [facility] Blood 12/11/2024 12:0 1 AM CDT 12/11/2024 12:38 AM CDT us Angela Cox NP LAB BLOOD ORDERABLES Final Result [facility] Department [place] [address] * Critical Care (12/10/2024 8:56 PM CDT) [...] plan with the ICU team and other medical/cycle consultant staff, making frequent assessments and decisions [...] spent time documenting in the medical record Francine Pollard JUNIOR BOOKKEEPER IN CLINIC/BEDSIDE OR DERABLES Final Result * POCT glucose (12/10/2024 7:28 PM CDT) Glucose, POC 136 70 - 199 mg/dL Blood 12/10/2024 7:28 PM CDT 12/10/2024 7:28 PM CDT Indiana Mortensen MD LAB POCT ORDERABLES - DEVICE Final Result Performing Organization Address [facility] de Phone Number [facility] Department [place] [address] * Potassium, whole blood (12/10/2024 4:12 PM CDT) Potassium, bld 4.4 3.3 - 4.9 mmol/L Blood 12/10/2024 4:12 PM CDT 12/10/2024 4:18 PM CDT Angela Cox JUNIOR BOOKKEEPER LAB BLOOD ORDERABLES Final Result Performing Organization Address [facility] de Phone Number [facility] Department [place] [address] * POCT glucose (12/10/2024 4:12 PM CDT) Glucose, POC 162 70 - 199 mg/dL Blood 12/10/2024 4:12 PM CDT 12/10/2024 4:12 PM CDT Indiana Mortensen MD LAB POCT ORDERABLES - DEVICE Final Result Performing Organization Address [facility]/State/ZIP Co de Phone Number [facility] Department [place] [address] * XR Abdomen 1 View AP (12/10/2024 [...] Electronically signed by: Silverio Rodríguez M.D. Angela Chloe Cox JUNIOR BOOKKEEPER IMG XR PROCEDURES Fi nal Result * Potassium, whole blood (12/10/2024 2:02 PM CDT) Potassium, bld 4.4 3.3 - 4.9 mmol/L Blood 12/10/2024 2:02 PM CDT 12/10/2024 2:16 PM CDT us Angela Corona Brooke JUNIOR BOOKKEEPER LAB BLOOD ORDERABLES Final Result Performing Organization Address City/[facility]/ZIP Co de Phone Number [facility] [place] [address] * POCT glucose (12/10/2024 1:54 PM CDT) Glucose, POC 145 70 - 199 mg/dL Blood 12/10/2024 1:54 PM CDT 12/10/2024 1:54 PM CDT us Indiana Mortensen MD LAB POCT ORDERABLES - DEVICE Final Result Performing Organization Address [facility] Co de Phone Number [facility] [place] [address] * POCT glucose (12/10/2024 12:02 PM CDT) Glucose, POC 141 70 - 199 mg/dL Blood 12/10/2024 12:0 2 PM CDT 12/10/2024 12:02 PM CDT us Indiana Mortensen MD LAB POCT ORDERABLES - DEVICE Final Result Performing Organization Address [facility] Co de Phone Number [facility] [place] [address] * POCT glucose (12/10/2024 10:10 AM CDT) Glucose, POC 154 70 - 199 mg/dL Blood 12/10/2024 10:1 0 AM CDT 12/10/2024 10:10 AM CDT us Inidana Mortensen MD LAB POCT ORDERABLES - DEVICE Final Result Performing Organization Address City/[facility] Co de Phone Number [facility] [place] [address] * XR Chest 1 View (12/10/2024 9:17 [...] by: Patrick De La Rosa M.D. Angela Corona Brooke JUNIOR BOOKKEEPER IMG XR PROCEDURES Fi nal Result * (ABNORMAL) POC Blood Gas and Chemistries, Arterial - (12/10/2024 8:00 AM CDT) pH, Art POC 7.41 7.35 - 7.45 pCO2, Art POC 37 35 - 45 mmHg [facility] pO2, Art POC 98 83 - 108 mmHg [facility] Na, POC 139 135 - 145 mmol/L [facility] K POC 5.0(H) 3.3 - 4.9 mmol/L [facility] Comment: Interpretive Data Not all point of care methods assess for hemolysis. Confirm with instrument and retest K+ if not consistent with clinical signs and symptoms. Current Interpretive Data was last revised on 2023. Cl, POC 109 97 - 110 mmol/L [facility] Ionized Ca, POC 4.62 4.50 - 5.10 mg/dL [facility] Glucose, POC 150 70 - 199 mg/dL [facility] Lactate POC 1.7 0.7 - 2.0 mmol/L [facility] SO2 (chandra) arterial 99(H) 90 - 95 % [facility] Base excess, POC -0.9 mmol/L [facility] HCO3, Art POC 24 20 - 30 mmol/L [facility] Hct, POC 30.0(L) 36.3 - 45.3 % [facility] Total Hb, POC 10.1(L) 11.9 - 15.5 g/dL [facility] Blood 12/10/2024 8:00 AM CDT 12/10/2024 8:00 AM CDT us Indiana Mortensen MD LAB POCT ORDERABLES - DEVICE Final Result [facility] Department [place] [address] * Critical Care (12/10/2024 7:00 AM CDT) [...] plan with the ICU team and other medical/cycle consultant staff, making frequent assessments and decisions [...] PCO2, Arterial 35 35 - 45 mmHg [facility] PO2, Arterial 165(H) 83 - 108 mmHg [facility] HCO3 Art (Calculated) 22 20 - 30 mmol/L [facility] BE, art -2 mmol/L [facility] Comment: Interpretive Data No Reference Range Established Current Interpretive Data was last revised on 2017 O2 Sat Art (Measured) 98(H) 90 - 95 % [facility] Blood 12/10/2024 6:30 AM CDT 12/10/2024 6:40 AM CDT us Gordy George MD LAB BLOOD ORDERABL ES Final Result [facility] Department [place] [address] * POCT glucose (12/10/2024 6:29 AM CDT) Glucose, POC 153 70 - 199 mg/dL Blood 12/10/2024 6:29 AM CDT 12/10/2024 6:29 AM CDT Indiana Mortensen MD LAB POCT ORDERABLES - DEVICE Final Result Performing Organization Address City/[facility] Co de Phone Number [facility] Department [place] [address] * POCT glucose (12/10/2024 4:44 AM CDT) Glucose, POC 172 70 - 199 mg/dL Blood 12/10/2024 4:44 AM CDT 12/10/2024 4:44 AM CDT Indiana Mortensen MD LAB POCT ORDERABLES - DEVICE Final Result Performing Organization Address [facility] de Phone Number [facility] Department [place] [address] * Potassium (12/10/2024 4:44 AM CDT) [facility] Signature Potassium, pl 4.9 3.3 - 4.9 mmol/L Blood 12/10/2024 4:44 AM CDT 12/10/2024 5:19 AM CDT Narrative [facility] - 12/10/2024 6:03 AM CDT Provider to discontinue after two normal results. Angela Cox NP LAB BLOOD ORDERABLES Final Result Performing Organization Address City/[facility] Co de Phone Number [facility] [place] [address] * POCT glucose (12/10/2024 1:58 AM CDT) Glucose, POC 130 70 - 199 mg/dL Blood 12/10/2024 1:58 AM CDT 12/10/2024 1:58 AM CDT Indiana Mortensen MD LAB POCT ORDERABLES - DEVICE Final Result Performing Organization Address [facility] Co de Phone Number [facility] [place] [address] * POCT glucose (12/10/2024 12:21 AM CDT) Glucose, POC 156 70 - 199 mg/dL Blood 12/10/2024 12:2 1 AM CDT 12/10/2024 12:21 AM CDT Indiana Mortensen MD LAB POCT ORDERABLES - DEVICE Final Result Performing Organization Address [facility] de Phone Number [facility] [place] [address] * (ABNORMAL) Potassium (12/10/2024 12:21 AM CDT) Potassium, pl 5.1(H) 3.3 - 4.9 mmol/L Blood 12/10/2024 12:2 1 AM CDT 12/10/2024 12:42 AM CDT Narrative [facility] - 12/10/2024 1:42 AM CDT Provider to discontinue after two normal results. Angela Cox NP LAB BLOOD ORDERABLES Final Result Performing Organization Address [facility] Co de Phone Number [facility] [place] [address] * POCT glucose (12/09/2024 11:20 PM CDT) Glucose, POC 170 70 - 199 mg/dL Blood 12/09/2024 11:2 0 PM CDT 12/09/2024 11:20 PM CDT Indiana Mortensen MD LAB POCT ORDERABLES - DEVICE Final Result Performing Organization Address [facility] Co de Phone Number [facility] Department [place] [address] * (ABNORMAL) POCT glucose (12/09/2024 10:29 PM CDT) [facility] Glucose, POC 207(H) 70 - 199 mg/dL Blood 12/09/2024 10:2 9 PM CDT 12/09/2024 10:29 PM CDT Indiana Mortensen MD LAB POCT ORDERABLES - DEVICE Final Result Performing Organization Address [facility] de Phone Number [facility] Department [place] [address] * Potassium, whole blood (12/09/2024 10:26 PM CDT) [facility] Potassium, bld 4.8 3.3 - 4.9 mmol/L Blood 12/09/2024 10:2 6 PM CDT 12/09/2024 10:39 PM CDT Angela Cox NP LAB BLOOD ORDERABLES Final Result Performing Organization Address [facility] Co de Phone Number [facility] [place] [address] * eGFR (12/09/2024 10:26 PM CDT) [facility] eGFR 67 >=60 mL/min/1. 73 m2 Comment: [...] BLOOD ORDERABLES Final Result Performing Organization Address [facility] Co de Phone Number [facility] [place] [place] [address] * Protime-INR (12/09/2024 10:26 PM CDT) PT 12.0 9.7 - 13.0 sec INR 1.11 0.90 - 1.20 [facility] Comment: Interpretive data Oral anticoagulant [...] BLOOD ORDERABLES Final Result Performing Organization Address [facility]/ZIP Co de Phone Number [facility] [place] [address] * (ABNORMAL) CBC without differential (12/09/2024 10:26 PM CDT) WBC 23.21(H) 3.80 - 9.90 K/cumm Hgb 9.8(L) 11.9 - 15.5 g/dL [facility] Hct 28.0(L) 35.6 - 45.5 % [facility] Plt 278 150 - 400 K/cumm [facility] MPV 8.4(L) 9.1 - 12.3 fL [facility] RBC 3.20(L) 3.90 - 5.20 M/cumm [facility] MCV 87.5 81.3 - 96.4 fL [facility] MCH 30.6 27.1 - 33.3 pg [facility] MCHC 35.0 32.3 - 35.7 g/dL [facility] RDW CV 13.8 11.1 - 14.9 % [facility] RDW SD 43.8 35.7 - 48.1 fL [facility] NRBC abs 0.00 0.00 - 0.01 K/cumm [facility] Blood 12/09/2024 10:2 6 PM CDT 12/09/2024 10:45 PM CDT us Angela Cox JUNIOR BOOKKEEPER LAB BLOOD ORDERABLES Final Result Performing Organization Address City/State/[facility] de Phone Number [facility] Department [place] [address] * Type and screen (12/09/2024 10:26 PM CDT) Sarah, indirect Negative ABO Rh B Negative [facility] Blood 12/09/2024 10:2 6 PM CDT 12/09/2024 11:00 PM CDT Narrative [facility] - 12/10/2024 12:09 AM CDT Has the patient had Daratumumab or Isatuximab in the past 6 months?->Unknown us Indiana Mortensen MD LAB BLOOD BANK TEST ORDERABLE S Final Result [facility] [place] [address] * (ABNORMAL) Potassium (12/09/2024 10:26 PM CDT) Potassium, pl 5.0(H) 3.3 - 4.9 mmol/L Blood 12/09/2024 10:2 6 PM CDT 12/09/2024 10:44 PM CDT Narrative [facility] - 12/09/2024 11:07 PM CDT Provider to discontinue after two normal results. Angela Cox NP LAB BLOOD ORDERABLES Final Result Performing Organization Address [facility] de Phone Number [facility] [place] [address] * (ABNORMAL) Phosphorus (12/09/2024 10:26 PM CDT) Phosphorus, pl 4.6(H) 2.3 - 4.5 mg/dL Blood 12/09/2024 10:2 6 PM CDT 12/09/2024 10:44 PM CDT Angela Cox JUNIOR BOOKKEEPER LAB BLOOD ORDERABLES Final Result Performing Organization Address [facility] de Phone Number [facility] Department [place] [address] * (ABNORMAL) Magnesium (12/09/2024 10:26 PM CDT) Magnesium 2.6(H) 1.4 - 2.5 mg/dL Blood 12/09/2024 10:2 6 PM CDT 12/09/2024 10:44 PM CDT Angela Cox JUNIOR BOOKKEEPER LAB BLOOD ORDERABLES Final Result [facility] Department [place] [address] * Lipid panel (12/09/2024 10:26 PM CDT) [...] revised on 2018. Triglycerides 106 <=149 mg/dL [facility] Comment: Interpretive Data Ages < or [...] revised on 2018. HDL 41 >=40 mg/dL [facility] Comment: Interpretive Data Ages < or [...] on 2018. LDL, calculated 31 <=129 mg/dL [facility] Comment: Interpretive Data Ages < or [...] revised on 2024. Non-HDL Cholesterol 51 mg/dL [facility] Comment: Interpretive Data Ages < or [...] last revised on 2018. Chol/HDL ratio 2 [facility] Blood 12/09/2024 10:2 6 PM CDT 12/09/2024 10:44 PM CDT Narrative [facility] - 12/09/2024 11:59 PM CDT Reflex us Indiana Mortensen MD LAB BLOOD ORDERABLES Final Re sult [facility] Department [place] [address] * (ABNORMAL) Basic metabolic panel (12/09/2024 10:26 PM CDT) Sodium 140 135 - 145 mmol/L Potassium, pl 4.9 3.3 - 4.9 mmol/L [facility] Chloride 108 97 - 110 mmol/L [facility] CO2 23 22 - 32 mmol/L [facility] Anion gap 9 2 - 15 mmol/L [facility] BUN 17 6 - 25 mg/dL [facility] Creatinine 0.96 0.60 - 1.10 mg/dL [facility] Glucose 201(H) 70 - 199 mg/dL [facility] Comment: Interpretive Data Fasting glucose >/= [...] 2022. Calcium 8.5 8.5 - 10.3 mg/dL [facility] Blood 12/09/2024 10:2 6 PM CDT 12/09/2024 10:44 PM CDT us Angela Cox NP LAB BLOOD ORDERABLES Final Result Performing Organization Address City/[facility]/ZIP Co de Phone Number [facility] Department [place] [address] * POCT glucose (12/09/2024 9:39 PM CDT) Glucose, POC 183 70 - 199 mg/dL Blood 12/09/2024 9:39 PM CDT 12/09/2024 9:39 PM CDT us Indiana Mortensen MD LAB POCT ORDERABLES - DEVICE Final Result Performing Organization Address [facility]/State/ZIP Co de Phone Number [facility] Department [place] [address] * POCT glucose (12/09/2024 9:10 PM CDT) Pathologist [facility] Glucose, POC 180 70 - 199 mg/dL Blood 12/09/2024 9:10 PM CDT 12/09/2024 9:10 PM CDT Indiana Mortensen MD LAB POCT ORDERABLES - DEVICE Final Result [facility] Department [place] [address] * (ABNORMAL) POC Blood Gas and Chemistries, Arterial - (12/09/2024 8:14 PM CDT) Pathologist [facility] pH, Art POC 7.38 7.35 - 7.45 pCO2, Art POC 37 35 - 45 mmHg [facility] pO2, Art POC 112(H) 83 - 108 mmHg [facility] Na, POC 138 135 - 145 mmol/L [facility] K POC 5.4(H) 3.3 - 4.9 mmol/L [facility] Comment: Interpretive Data Not all point of care methods assess for hemolysis. Confirm with instrument and retest K+ if not consistent with clinical signs and symptoms. Current Interpretive Data was last revised on 2023. Cl, POC 109 97 - 110 mmol/L [facility] Ionized Ca, POC 4.82 4.50 - 5.10 mg/dL [facility] Glucose, POC 163 70 - 199 mg/dL [facility] Lactate POC 2.5(H) 0.7 - 2.0 mmol/L [facility] SO2 (chandra) arterial 100(H) 90 - 95 % [facility] Base excess, POC -2.9 mmol/L [facility] HCO3, Art POC 22 20 - 30 mmol/L [facility] Hct, POC 32.0(L) 36.3 - 45.3 % [facility] Total Hb, POC 10.5(L) 11.9 - 15.5 g/dL [facility] Blood 12/09/2024 8:14 PM CDT 12/09/2024 8:14 PM CDT Indiana Mortensen MD LAB POCT ORDERABLES - DEVICE Final Result [facility] Department [place] [address] * Critical Care (12/09/2024 7:24 PM CDT) [...] plan with the ICU team and other medical/cycle consultant staff, making frequent assessments and decisions [...] spent time documenting in the medical record Maritza AUGUSTIN IN CLINIC/BEDSIDE STEVEN MEJIA Final Result * POCT glucose (12/09/2024 6:52 PM CDT) Glucose, POC 132 70 - 199 mg/dL Blood 12/09/2024 6:52 PM CDT 12/09/2024 6:52 PM CDT us Indiana Mortensen MD LAB POCT ORDERABLES - DEVICE Final Result [facility] [place] [address] * (ABNORMAL) POC Blood Gas and Chemistries, Arterial - (12/09/2024 6:06 PM CDT) pH, Art POC 7.36 7.35 - 7.45 pCO2, Art POC 40 35 - 45 mmHg [facility] pO2, Art POC 98 83 - 108 mmHg [facility] Na, POC 136 135 - 145 mmol/L [facility] K POC 5.0(H) 3.3 - 4.9 mmol/L [facility] Comment: Interpretive Data Not all point of care methods assess for hemolysis. Confirm with instrument and retest K+ if not consistent with clinical signs and symptoms. Current Interpretive Data was last revised on 2023. Cl, POC 109 97 - 110 mmol/L [facility] Ionized Ca, POC 5.00 4.50 - 5.10 mg/dL [facility] Glucose, POC 177 70 - 199 mg/dL [facility] Lactate POC 2.0 0.7 - 2.0 mmol/L [facility] SO2 (chandra) arterial 99(H) 90 - 95 % [facility] Base excess, POC -2.6 mmol/L [facility] HCO3, Art POC 23 20 - 30 mmol/L [facility] Hct, POC 30.0(L) 36.3 - 45.3 % [facility] Total Hb, POC 10.1(L) 11.9 - 15.5 g/dL [facility] Blood 12/09/2024 6:06 PM CDT 12/09/2024 6:06 PM CDT us Indiana Mortensen MD LAB POCT ORDERABLES - DEVICE Final Result [facility] Department [place] [address] * Oxyhemoglobin, central venous (12/09/2024 5:40 PM CDT) Pathologist [facility] Oxyhemoglobin, CV 93.8 % Comment: Interpretive Data No reference range established. Current interpretive data was last revised 2019. Blood 12/09/2024 5:40 PM CDT 12/09/2024 5:46 PM CDT us Angela Cox JUNIOR BOOKKEEPER LAB BLOOD ORDERABLES Final Result [facility] [place] [address] * POCT glucose (12/09/2024 5:11 PM CDT) [facility] Glucose, POC 142 70 - 199 mg/dL Blood 12/09/2024 5:11 PM CDT 12/09/2024 5:11 PM CDT us Indiana Mortensen MD LAB POCT ORDERABLES - DEVICE Final Result Performing Organization Address City/[facility]/ZIP Co de Phone Number [facility] Department [place] [address] * (ABNORMAL) POC Blood Gas and Chemistries, Arterial - (12/09/2024 4:54 PM CDT) pH, Art POC 7.35 7.35 - 7.45 pCO2, Art POC 42 35 - 45 mmHg [facility] pO2, Art POC 74(L) 83 - 108 mmHg [facility] Na, POC 138 135 - 145 mmol/L [facility] K POC 5.7(H) 3.3 - 4.9 mmol/L [facility] Comment: Interpretive Data Not all point of care methods assess for hemolysis. Confirm with instrument and retest K+ if not consistent with clinical signs and symptoms. Current Interpretive Data was last revised on 2023. Cl, POC 108 97 - 110 mmol/L [facility] Ionized Ca, POC 5.12(H) 4.50 - 5.10 mg/dL [facility] Glucose, POC 155 70 - 199 mg/dL [facility] Lactate POC 1.8 0.7 - 2.0 mmol/L [facility] SO2 (chandra) arterial 97(H) 90 - 95 % [facility] Base excess, POC -2.3 mmol/L [facility] HCO3, Art POC 23 20 - 30 mmol/L [facility] Hct, POC 32.0(L) 36.3 - 45.3 % [facility] Total Hb, POC 10.5(L) 11.9 - 15.5 g/dL [facility] Blood 12/09/2024 4:54 PM CDT 12/09/2024 4:54 PM CDT us Indiana Mortensen MD LAB POCT ORDERABLES - DEVICE Final Result [facility] Department [place] [address] * eGFR (12/09/2024 4:51 PM CDT) eGFR [...] CDT 12/09/2024 5:10 PM CDT Angela Cox JUNIOR BOOKKEEPER LAB BLOOD ORDERABLES Final Result Performing Organization Address City/[facility]/ZIP Co de Phone Number [facility] Department [place] [address] * (ABNORMAL) CBC without differential (12/09/2024 4:51 PM CDT) Pathologist [facility] WBC 16.69(H) 3.80 - 9.90 K/cumm Hgb 10.0(L) 11.9 - 15.5 g/dL [facility] Hct 28.4(L) 35.6 - 45.5 % [facility] Plt 210 150 - 400 K/cumm [facility] MPV 8.5(L) 9.1 - 12.3 fL [facility] RBC 3.26(L) 3.90 - 5.20 M/cumm [facility] MCV 87.1 81.3 - 96.4 fL [facility] MCH 30.7 27.1 - 33.3 pg [facility] MCHC 35.2 32.3 - 35.7 g/dL [facility] RDW CV 13.7 11.1 - 14.9 % [facility] RDW SD 43.0 35.7 - 48.1 fL [facility] NRBC abs 0.00 0.00 - 0.01 K/cumm [facility] Blood 12/09/2024 4:51 PM CDT 12/09/2024 5:09 PM CDT Angela Cox JUNIOR BOOKKEEPER LAB BLOOD ORDERABLES Final Result [facility] Department [place] [address] * Hemoglobin A1c (12/09/2024 4:51 PM CDT) Pathologist [facility] Hgb A1C 5.0 4.0 - 5.6 % Estimated Average Glucose 97 mg/dL [facility] Comment: The ADA recommends reporting an [...] MD LAB BLOOD ORDERABLES Final Re sult [facility] Department [place] [address] * (ABNORMAL) Comprehensive metabolic panel (12/09/2024 4:51 PM CDT) [facility] Sodium 139 135 - 145 mmol/L Potassium, pl 5.6(H) 3.3 - 4.9 mmol/L [facility] Chloride 109 97 - 110 mmol/L [facility] CO2 23 22 - 32 mmol/L [facility] Anion gap 7 2 - 15 mmol/L [facility] BUN 18 6 - 25 mg/dL [facility] Creatinine 0.93 0.60 - 1.10 mg/dL [facility] Glucose 145 70 - 199 mg/dL [facility] Comment: Interpretive Data Fasting glucose >/= [...] 2022. Calcium 9.0 8.5 - 10.3 mg/dL [facility] Bilirubin, total 0.9 0.1 - 1.2 mg/dL [facility] Protein, pl 5.8(L) 6.5 - 8.5 g/dL [facility] Albumin 3.7 3.5 - 5.0 g/dL [facility] Alk phos 44 40 - 130 Units/L [facility] ALT 29 7 - 45 Units/L [facility] AST 118(H) 10 - 45 Units/L [facility] Blood 12/09/2024 4:51 PM CDT 12/09/2024 5:10 PM CDT us Angela Cox JUNIOR BOOKKEEPER LAB BLOOD ORDERABLES Final Result Performing Organization Address City/[facility]/ZIP Co de Phone Number [facility] Department [place] [address] * POCT glucose (12/09/2024 4:17 PM CDT) [facility] Signature Glucose, POC 122 70 - 199 mg/dL Blood 12/09/2024 4:17 PM CDT 12/09/2024 4:17 PM CDT us Indiana Mortensen MD LAB POCT ORDERABLES - DEVICE Final Result Performing Organization Address City/[facility]/ZIP Co de Phone Number [facility] [place] [address] * XR Chest 1 View (12/09/2024 4:16 [...] Electronically signed by: Herrera Robbins M.D. Angela Brownehannahmichele Brooke JUNIOR BOOKKEEPER IMG XR PROCEDURES Fi nal Result * ECG 12 lead (12/09/2024 3:41 PM CDT) Ventricular Rate EKG/Min 96 BPM [facility] Atrial Rate 96 BPM [facility] KS-Interval (MSEC) 166 ms [facility] QRS-Interval (MSEC) 142 ms [facility] QT-Interval (MSEC) 440 ms [facility] QTc 555 ms [facility] P [place] 29 degrees [facility] R [place] -65 degrees [facility] T [place] 30 degrees [facility] Diagnosis Sinus rhythm with marked sinus arrhythmia Right bundle branch block Left anterior fascicular block Bifascicular block Abnormal ECG When compared with ECG of 12-NOV-2024 16:13, (RBBB and left anterior fascicular block) is now Present Confirmed by KAMILA MCKAY M.D ([id number]) on 12/10/2024 8:54:31 PM [facility] 12/09/2024 3:41 PM CDT 12/10/2024 8:54 PM CDT us Maritza AUGUSTIN ECG ORDERABLES Final Result [facility] * Critical Care (12/09/2024 3:40 PM CDT) [...] plan with the ICU team and other medical/cycle consultant staff, making frequent assessments and decisions [...] Justice auris DNA Not Detected Not Detected [facility] Comment: Interpretive Data Testing performed by [facility] Molecular Infectious Disease Laboratory using the Stacie shirin 6800 Justice auris assay. This assay detects DNA from Justice auris using Real-Time PCR. This assay is laboratory developed and is not cleared by the [facility] Food and Drug Administration. The performance characteristics have been verified by the [facility] Infectious Disease Laboratory. Axilla/Groin 12/09/2024 3:38 PM CDT 12/09/2024 4:29 PM CDT John Paul Baldwin MD LAB MICROBIOLOGY - GENERAL ORDER ROSY Final Result Performing Organization Address City/[facility] [place] [address] [facility] * Oxyhemoglobin, central venous (12/09/2024 3:38 PM CDT) Pathologist [facility] Oxyhemoglobin, CV 95.3 % Comment: Interpretive Data No reference range established. Current interpretive data was last revised 2019. Blood 12/09/2024 3:38 PM CDT 12/09/2024 4:13 PM CDT Angela Cox JUNIOR BOOKKEEPER LAB BLOOD ORDERABLES Final Result Performing Organization Address [facility] de Phone Number [facility] [place] [address] * (ABNORMAL) POC Blood Gas and Chemistries, Arterial - (12/09/2024 3:25 PM CDT) pH, Art POC 7.34(L) 7.35 - 7.45 pCO2, Art POC 43 35 - 45 mmHg [facility] pO2, Art POC 158(H) 83 - 108 mmHg [facility] Na, POC 139 135 - 145 mmol/L [facility] K POC 5.5(H) 3.3 - 4.9 mmol/L [facility] Comment: Interpretive Data Not all point of care methods assess for hemolysis. Confirm with instrument and retest K+ if not consistent with clinical signs and symptoms. Current Interpretive Data was last revised on 2023. Cl, POC 109 97 - 110 mmol/L [facility] Ionized Ca, POC 5.28(H) 4.50 - 5.10 mg/dL [facility] Glucose, POC 133 70 - 199 mg/dL [facility] HEALTHCARE Lactate POC 1.4 0.7 - 2.0 mmol/L [facility] SO2 (chandra) arterial 100(H) 90 - 95 % [facility] Base excess, POC -2.5 mmol/L [facility] HCO3, Art POC 23 20 - 30 mmol/L [facility] Hct, POC 31.0(L) 36.3 - 45.3 % [facility] Total Hb, POC 10.3(L) 11.9 - 15.5 g/dL [facility] Blood 12/09/2024 3:25 PM CDT 12/09/2024 3:25 PM CDT us Indiana Mortensen MD LAB POCT ORDERABLES - DEVICE Final Result [facility] Department [place] [address] * (ABNORMAL) POC Blood Gas and Chemistries, Arterial - (12/09/2024 2:01 PM CDT) pH, Art POC 7.33(L) 7.35 - 7.45 pCO2, Art POC 44 35 - 45 mmHg [facility] pO2, Art POC 143(H) 83 - 108 mmHg [facility] Na, POC 140 135 - 145 mmol/L [facility] K POC 4.8 3.3 - 4.9 mmol/L [facility] Comment: Interpretive Data Not all point of care methods assess for hemolysis. Confirm with instrument and retest K+ if not consistent with clinical signs and symptoms. Current Interpretive Data was last revised on 2023. Cl, POC 113(H) 97 - 110 mmol/L [facility] Ionized Ca, POC 5.27(H) 4.50 - 5.10 mg/dL [facility] Glucose, POC 140 70 - 199 mg/dL [facility] Lactate POC 2.6(H) 0.7 - 2.0 mmol/L [facility] SO2 (chandra) arterial 100(H) 90 - 95 % [facility] Base excess, POC -2.7 mmol/L [facility] HCO3, Art POC 23 20 - 30 mmol/L [facility] Hct, POC 31.0(L) 36.3 - 45.3 % [facility] Total Hb, POC 10.3(L) 11.9 - 15.5 g/dL [facility] Blood 12/09/2024 2:01 PM CDT 12/09/2024 2:01 PM CDT us Indiana Mortensen MD LAB POCT ORDERABLES - DEVICE Final Result Performing Organization Address [facility] Co de Phone Number [facility] Department [place] [address] * Transfuse plasma (12/09/2024 1:19 PM CDT) Blood us Deana Cruz MD BLOOD TRANSFUSION ORDERABLES Final Result Performing Organization Address [facility] Co de Phone Number [facility] [place] [address] * Prepare plasma: 1 Units (12/09/2024 12:52 PM CDT) [facility] Signature Product code [id number] Unit Number [id number] [facility] Product Blood Type BPOS [facility] Dispense Status PRESUMED TRANSFUSED [facility] Blood Venous blood specimen / Unknown 12/09/2024 12:52 PM CDT 12/09/2024 12:53 PM CDT Narrative [facility] - 12/10/2024 8:01 AM CDT Date required:-[id number] FFP # of Units:-1-Units Reasons:-Immediate need for surgical intervention us Deana Cruz MD BLOOD BANK PRODUCT ORDERABLE S Final Result Performing Organization Address [facility] Co de Phone Number [facility] [place] [address] * (ABNORMAL) POCT prothrombin time (12/09/2024 12:43 PM CDT) [facility] PT, POC 31.1(H) 11.7 - 16.6 sec INR, POC 2.4(H) 0.9 - 1.2 [facility] Blood 12/09/2024 12:4 3 PM CDT 12/09/2024 12:43 PM CDT Indiana Mortensen MD LAB POCT ORDERABLES - DEVICE Final Result Performing Organization Address [facility] [place] [address] * (ABNORMAL) POCT hemoglobin, hematocrit and platelet count (12/09/2024 12:43 PM CDT) [facility] Hgb, POC 7.9(L) 11.9 - 15.5 g/dL Hematocrit POC 23.9(L) 35.6 - 45.5 % [facility] Platelet POC 179 150 - 400 K/cumm [facility] Blood 12/09/2024 12:4 3 PM CDT 12/09/2024 12:43 PM CDT Indiana Mortensen MD LAB POCT ORDERABLES - DEVICE Final Result Performing Organization Address City/[facility] [place] [address] * (ABNORMAL) POCT Partial thromboplastin time (PTT) (12/09/2024 12:43 PM CDT) [facility] APTT, POC 29.6(L) 32.5 - 46.1 sec Blood 12/09/2024 12:4 3 PM CDT 12/09/2024 12:43 PM CDT Idniana Mortensen MD LAB POCT ORDERABLES - DEVICE Final Result Performing Organization Address City/[facility]/ZIP Co de Phone Number [facility] [place] [address] * (ABNORMAL) POCT heparin/ACT CPB (12/09/2024 12:39 PM CDT) Heparin POC 0.0 units/mL ACT, CPB 102(L) 112 - 174 sec [facility] Blood 12/09/2024 12:3 9 PM CDT 12/09/2024 12:39 PM CDT Indiana Mortensen MD LAB POCT ORDERABLES - DEVICE Final Result Performing Organization Address [facility] Co de Phone Number [facility] [place] [address] * (ABNORMAL) POC Blood Gas and Chemistries, Arterial - (12/09/2024 12:37 PM CDT) pH, Art POC 7.36 7.35 - 7.45 pCO2, Art POC 39 35 - 45 mmHg [facility] pO2, Art POC 263(H) 83 - 108 mmHg [facility] Na, POC 140 135 - 145 mmol/L [facility] K POC 4.3 3.3 - 4.9 mmol/L [facility] Comment: Interpretive Data Not all point of care methods assess for hemolysis. Confirm with instrument and retest K+ if not consistent with clinical signs and symptoms. Current Interpretive Data was last revised on 2023. Cl, POC 110 97 - 110 mmol/L [facility] Ionized Ca, POC 6.04(H) 4.50 - 5.10 mg/dL [facility] Glucose, POC 172 70 - 199 mg/dL [facility] Lactate POC 3.7(H) 0.7 - 2.0 mmol/L [facility] SO2 (chandra) arterial 100(H) 90 - 95 % [facility] Base excess, POC -3.2 mmol/L [facility] HCO3, Art POC 22 20 - 30 mmol/L [facility] Hct, POC 25.0(L) 36.3 - 45.3 % [facility] Total Hb, POC 8.4(L) 11.9 - 15.5 g/dL [facility] Blood 12/09/2024 12:3 7 PM CDT 12/09/2024 12:37 PM CDT us Indiana Mortensen MD LAB POCT ORDERABLES - DEVICE Final Result [facility] Department [place] [address] * (ABNORMAL) POC Blood Gas and Chemistries, Arterial - (12/09/2024 12:05 PM CDT) pH, Art POC 7.37 7.35 - 7.45 pCO2, Art POC 40 35 - 45 mmHg [facility] pO2, Art POC 423(H) 83 - 108 mmHg [facility] Na, POC 139 135 - 145 mmol/L [facility] K POC 5.3(H) 3.3 - 4.9 mmol/L [facility] Comment: Interpretive Data Not all point of care methods assess for hemolysis. Confirm with instrument and retest K+ if not consistent with clinical signs and symptoms. Current Interpretive Data was last revised on 2023. Cl, POC 109 97 - 110 mmol/L [facility] Ionized Ca, POC 4.11(L) 4.50 - 5.10 mg/dL [facility] Glucose, POC 170 70 - 199 mg/dL [facility] Lactate POC 4.1(C) 0.7 - 2.0 mmol/L [facility] SO2 (chandra) arterial 100(H) 90 - 95 % [facility] Base excess, POC -2.0 mmol/L [facility] HCO3, Art POC 23 20 - 30 mmol/L [facility] Hct, POC 23.0(L) 36.3 - 45.3 % [facility] Total Hb, POC 7.6(L) 11.9 - 15.5 g/dL [facility] Blood 12/09/2024 12:0 5 PM CDT 12/09/2024 12:05 PM CDT Indiana Mortensen MD LAB POCT ORDERABLES - DEVICE Final Result Performing Organization Address [facility] de Phone Number [facility] [place] [address] * (ABNORMAL) POCT heparin/ACT CPB (12/09/2024 12:03 PM CDT) Heparin POC <2.8 units/mL ACT, CPB 483(H) 112 - 174 sec [facility] Blood 12/09/2024 12:0 3 PM CDT 12/09/2024 12:03 PM CDT Indiana Mortensen MD LAB POCT ORDERABLES - DEVICE Final Result Performing Organization Address [facility] de Phone Number [facility] [place] [address] * (ABNORMAL) POCT heparin/ACT CPB (12/09/2024 11:32 AM CDT) Heparin POC 4.1 units/mL ACT, CPB 643(H) 112 - 174 sec [facility] Blood 12/09/2024 11:3 2 AM CDT 12/09/2024 11:32 AM CDT Indiana Mortensen MD LAB POCT ORDERABLES - DEVICE Final Result Performing Organization Address [facility] [place] [address] * (ABNORMAL) POC Blood Gas and Chemistries, Arterial - (12/09/2024 11:31 AM CDT) pH, Art POC 7.37 7.35 - 7.45 pCO2, Art POC 40 35 - 45 mmHg [facility] pO2, Art POC 340(H) 83 - 108 mmHg [facility] Na, POC 139 135 - 145 mmol/L [facility] K POC 4.8 3.3 - 4.9 mmol/L [facility] Comment: Interpretive Data Not all point of care methods assess for hemolysis. Confirm with instrument and retest K+ if not consistent with clinical signs and symptoms. Current Interpretive Data was last revised on 2023. Cl, POC 109 97 - 110 mmol/L [facility] Ionized Ca, POC 4.44(L) 4.50 - 5.10 mg/dL [facility] Glucose, POC 170 70 - 199 mg/dL [facility] Lactate POC 3.4(H) 0.7 - 2.0 mmol/L [facility] SO2 (chandra) arterial 100(H) 90 - 95 % [facility] Base excess, POC -2.0 mmol/L [facility] HCO3, Art POC 23 20 - 30 mmol/L [facility] Hct, POC 21.0(L) 36.3 - 45.3 % [facility] Total Hb, POC 7.1(L) 11.9 - 15.5 g/dL [facility] Blood 12/09/2024 11:3 1 AM CDT 12/09/2024 11:31 AM CDT Indiana Mortensen MD LAB POCT ORDERABLES - DEVICE Final Result [facility] Department [place] [address] * (ABNORMAL) POCT heparin/ACT CPB (12/09/2024 11:01 AM CDT) Heparin POC 3.4 units/mL ACT, CPB 538(H) 112 - 174 sec [facility] Blood 12/09/2024 11:0 1 AM CDT 12/09/2024 11:01 AM CDT Indiana Mortensen MD LAB POCT ORDERABLES - DEVICE Final Result Performing Organization Address City/[facility]/ZIP Co de Phone Number [facility] Department [place] [address] * (ABNORMAL) POC Blood Gas and Chemistries, Arterial - (12/09/2024 11:00 AM CDT) pH, Art POC 7.40 7.35 - 7.45 pCO2, Art POC 40 35 - 45 mmHg [facility] pO2, Art POC 257(H) 83 - 108 mmHg [facility] Na, POC 139 135 - 145 mmol/L [facility] K POC 4.7 3.3 - 4.9 mmol/L [facility] Comment: Interpretive Data Not all point of care methods assess for hemolysis. Confirm with instrument and retest K+ if not consistent with clinical signs and symptoms. Current Interpretive Data was last revised on 2023. Cl, POC 110 97 - 110 mmol/L [facility] Ionized Ca, POC 4.31(L) 4.50 - 5.10 mg/dL [facility] Glucose, POC 170 70 - 199 mg/dL [facility] Lactate POC 2.9(H) 0.7 - 2.0 mmol/L [facility] SO2 (chandra) arterial 100(H) 90 - 95 % [facility] Base excess, POC 0.0 mmol/L [facility] HCO3, Art POC 25 20 - 30 mmol/L [facility] Hct, POC 23.0(L) 36.3 - 45.3 % [facility] Total Hb, POC 7.6(L) 11.9 - 15.5 g/dL [facility] Blood 12/09/2024 11:0 0 AM CDT 12/09/2024 11:00 AM CDT us Indiana Mortensen MD LAB POCT ORDERABLES - DEVICE Final Result [facility] Department [place] [address] * Surgical pathology (12/09/2024 10:36 AM CDT) Tissue (Heart Valve) 12/09/2024 10:36 AM CDT Narrative PATHOLOGY [facility] - 12/15/2024 5:28 PM CDT EPIC results best viewed via link to PDF [facility]may[facility] Rosales [facility] [place] [address] Note to Patients: This report may contain [...] Gender: F : 1960 (Age: 64) Address: [address] [place] [address] Hospital #: [id number] Taken:12/09/2024 Received:12/09/2024 Reported: 12/15/2024 Patient Type: [facility] Inpatient Service: Cardiothoracic Location: [place] [address] Physician(s): MD Pacheco Perez DO Diagnosis: A. [...] 0.5 to 1.3 cm in greatest dimension. Video Systems Engineer sections are submitted. Labeled A1. decal one. Jar 1. 12/09/2024 17:08 PA(s): Lisandra Tovar MS, PA(ASCP)CM By this signature, I attest that the above diagnosis is based upon my personal examination of the slides(and/or other material). Addenda/Procedures The performance characteristics of some immunohistochemical stains, fluorescence in-situ hybridization tests and immunophenotyping by flow cytometry cited in this report (if any) were determined by the Surgical Pathology and Flow Cytometry Departments at [facility] as part of an ongoing quality assurance director program and in compliance with federally mandated [...] Surgical Pathology and Flow Cytometry Departments of [facility]. It has not been cleared or approved by the U. S. Food and Drug Administration. IMAGES AND SCANNED DOCUMENTS, IF INCLUDED, ONLY VIEWABLE IN PDF VERSION OF REPORT us Indiana Mortensen MD LAB PATHOLOGY ORDERABLES Brenda wharton Result PATHOLOGY [facility] 3rd Floor [place], [place] [phone] * (ABNORMAL) POCT heparin/ACT CPB (12/09/2024 10:34 AM CDT) Heparin POC 3.4 units/mL ACT, CPB 578(H) 112 - 174 sec [facility] Blood 12/09/2024 10:3 4 AM CDT 12/09/2024 10:34 AM CDT us Indiana Mortensen MD LAB POCT ORDERABLES - DEVICE Final Result [facility] Department [place] [address] * (ABNORMAL) POC Blood Gas and Chemistries, Arterial - (12/09/2024 10:33 AM CDT) Pathologist [facility] pH, Art POC 7.40 7.35 - 7.45 pCO2, Art POC 41 35 - 45 mmHg [facility] pO2, Art POC 284(H) 83 - 108 mmHg [facility] Na, POC 140 135 - 145 mmol/L [facility] K POC 4.6 3.3 - 4.9 mmol/L [facility] Comment: Interpretive Data Not all point of care methods assess for hemolysis. Confirm with instrument and retest K+ if not consistent with clinical signs and symptoms. Current Interpretive Data was last revised on 2023. Cl, POC 109 97 - 110 mmol/L [facility] Ionized Ca, POC 4.32(L) 4.50 - 5.10 mg/dL [facility] Glucose, POC 175 70 - 199 mg/dL [facility] Lactate POC 3.1(H) 0.7 - 2.0 mmol/L [facility] SO2 (chandra) arterial 100(H) 90 - 95 % [facility] Base excess, POC 0.5 mmol/L [facility] HCO3, Art POC 25 20 - 30 mmol/L [facility] Hct, POC 24.0(L) 36.3 - 45.3 % [facility] Total Hb, POC 7.9(L) 11.9 - 15.5 g/dL [facility] Blood 12/09/2024 10:3 3 AM CDT 12/09/2024 10:33 AM CDT Indiana Mortensen MD LAB POCT ORDERABLES - DEVICE Final Result Performing Organization Address City/[facility] Co de Phone Number [facility] [place] [address] * (ABNORMAL) POCT heparin/ACT CPB (12/09/2024 10:07 AM CDT) Pathologist [facility] Heparin POC >4.7 units/mL ACT, CPB 698(H) 112 - 174 sec [facility] Blood 12/09/2024 10:0 7 AM CDT 12/09/2024 10:07 AM CDT Indiana Mortensen MD LAB POCT ORDERABLES - DEVICE Final Result Performing Organization Address [facility] de Phone Number [facility] [place] [address] * (ABNORMAL) POC Blood Gas and Chemistries, Arterial - (12/09/2024 10:06 AM CDT) Pathologist [facility] pH, Art POC 7.24(L) 7.35 - 7.45 pCO2, Art POC 48(H) 35 - 45 mmHg [facility] pO2, Art POC 460(H) 83 - 108 mmHg [facility] Na, POC 138 135 - 145 mmol/L [facility] K POC 4.4 3.3 - 4.9 mmol/L [facility] Comment: Interpretive Data Not all point of care methods assess for hemolysis. Confirm with instrument and retest K+ if not consistent with clinical signs and symptoms. Current Interpretive Data was last revised on 2023. Cl, POC 109 97 - 110 mmol/L [facility] Ionized Ca, POC 4.53 4.50 - 5.10 mg/dL [facility] Glucose, POC 179 70 - 199 mg/dL [facility] Lactate POC 3.1(H) 0.7 - 2.0 mmol/L [facility] SO2 (chandra) arterial 100(H) 90 - 95 % [facility] Base excess, POC -6.6 mmol/L [facility] HCO3, Art POC 21 20 - 30 mmol/L [facility] Hct, POC 28.0(L) 36.3 - 45.3 % [facility] Total Hb, POC 9.3(L) 11.9 - 15.5 g/dL [facility] Blood 12/09/2024 10:0 6 AM CDT 12/09/2024 10:06 AM CDT us Indiana Mortensen MD LAB POCT ORDERABLES - DEVICE Final Result [facility] Department [place] [address] * (ABNORMAL) POC Blood Gas and Chemistries, Arterial - (12/09/2024 9:41 AM CDT) pH, Art POC 7.22(L) 7.35 - 7.45 pCO2, Art POC 57(H) 35 - 45 mmHg [facility] pO2, Art POC 134(H) 83 - 108 mmHg [facility] Na, POC 138 135 - 145 mmol/L [facility] K POC 4.4 3.3 - 4.9 mmol/L [facility] Comment: Interpretive Data Not all point of care methods assess for hemolysis. Confirm with instrument and retest K+ if not consistent with clinical signs and symptoms. Current Interpretive Data was last revised on 2023. Cl, POC 106 97 - 110 mmol/L [facility] Ionized Ca, POC 4.75 4.50 - 5.10 mg/dL [facility] Glucose, POC 158 70 - 199 mg/dL [facility] Lactate POC 1.9 0.7 - 2.0 mmol/L [facility] SO2 (chandra) arterial 99(H) 90 - 95 % [facility] Base excess, POC -5.0 mmol/L [facility] HCO3, Art POC 23 20 - 30 mmol/L [facility] Hct, POC 38.0 36.3 - 45.3 % [facility] Total Hb, POC 12.6 11.9 - 15.5 g/dL [facility] Blood 12/09/2024 9:41 AM CDT 12/09/2024 9:41 AM CDT Indiana Mortensen MD LAB POCT ORDERABLES - DEVICE Final Result Performing Organization Address [facility] de Phone Number [facility] [place] [address] * (ABNORMAL) POCT heparin/ACT CPB (12/09/2024 9:35 AM CDT) Heparin POC 4.8 units/mL ACT, CPB 688(H) 112 - 174 sec [facility] Blood 12/09/2024 9:35 AM CDT 12/09/2024 9:35 AM CDT Indiana Mortensen MD LAB POCT ORDERABLES - DEVICE Final Result Performing Organization Address [facility] de Phone Number [facility] [place] [address] * [place] AN 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 (12/09/2024 8:47 AM CDT) [...] code: ROSS placement and diagnostic exam, non-congenital (17611) ICD code(s) for medical necessity: I35.2 - [...] inferior: normal 16- Apical septal: normal 17- [place]: normal Valves: Aortic Valve: Annulus: calcified Leaflet [...] the written comments contained within the report. Deana Cruz MD ANESTHESIA ORDERABLES Final Result [...] patient tolerated procedure well with no complications Deana Cruz MD ANESTHESIA ORDERABLES Final Result [...] patient tolerated procedure well with no complications Deana Cruz MD ANESTHESIA ORDERABLES Final Result [...] dose response, CPB (12/09/2024 7:35 AM CDT) Baseline ACT POC 152 112 - 174 sec Heparin dose response slope POC 89 60 - 195 [facility] Projected Heparin Concentration POC 3.7 units/mL [facility] Blood 12/09/2024 7:35 AM CDT 12/09/2024 7:35 AM CDT Indiana Mortensen MD LAB POCT ORDERABLES - DEVICE Final Result [facility] Department [place] [address] * (ABNORMAL) POC Blood Gas and Chemistries, Arterial - (12/09/2024 7:28 AM CDT) pH, Art POC 7.37 7.35 - 7.45 pCO2, Art POC 44 35 - 45 mmHg [facility] pO2, Art POC 483(H) 83 - 108 mmHg [facility] Na, POC 140 135 - 145 mmol/L [facility] K POC 4.1 3.3 - 4.9 mmol/L [facility] Comment: Interpretive Data Not all point of care methods assess for hemolysis. Confirm with instrument and retest K+ if not consistent with clinical signs and symptoms. Current Interpretive Data was last revised on 2023. Cl, POC 107 97 - 110 mmol/L [facility] Ionized Ca, POC 4.74 4.50 - 5.10 mg/dL [facility] Glucose, POC 103 70 - 199 mg/dL [facility] Lactate POC 1.3 0.7 - 2.0 mmol/L [facility] SO2 (chandra) arterial 100(H) 90 - 95 % [facility] Base excess, POC -0.2 mmol/L [facility] HCO3, Art POC 25 20 - 30 mmol/L [facility] Hct, POC 39.0 36.3 - 45.3 % [facility] Total Hb, POC 13.1 11.9 - 15.5 g/dL [facility] Blood 12/09/2024 7:28 AM CDT 12/09/2024 7:28 AM CDT Indiana Mortensen MD LAB POCT ORDERABLES - DEVICE Final Result Performing Organization Address [facility]/ZIP Co de Phone Number [facility] [place] [address] * Type and screen (12/09/2024 6:56 AM CDT) Sarah, indirect Negative ABO Rh B Negative [facility] Blood 12/09/2024 6:56 AM CDT 12/09/2024 7:54 AM CDT Narrative [facility] - 12/09/2024 8:41 AM CDT Has the patient had Daratumumab or Isatuximab in the past 6 months?->Unknown Deana Cruz MD LAB BLOOD BANK TEST ORDERABL ES Final Result Performing Organization Address [facility]/ZIP Co de Phone Number [facility] [place] [address] * ROSS Add-On For OR (12/09/2024 6:04 AM CDT) Narrative [facility] PROSOLV_[email or web address]_[email or web address] SCIMAGE - 12/09/2024 6:04 AM CDT Procedure Auto Finalized by Rule: BW CV ROSS DURING CASE OR Please see the Anesthesiologist's Procedure Note for the results. us Pasquale Dela Cruz MD CV ECHO PROCEDURES Final Result [facility] PROSOLV_[email or web address]_[email or web address] SCIMAGE * Prepare RBC: 4 Units (12/09/2024 5:42 AM CDT) Product code [id number] Unit Number [id number] 5-7 [facility] Product Blood Type BNEG [facility] Dispense Status RETURNED [facility] Product code [id number] [facility] Unit Number [id number] 9-0 [facility] Product Blood Type BNEG [facility] Dispense Status RETURNED [facility] Product code [id number] C[facility] Unit Number [id number] 7-2 [facility] Product Blood Type BNEG C[facility]ER [facility] Dispense Status RETURNED CERNER [facility] Product code [id number] CERNER [facility] Unit Number [id number] 2-W [facility] Product Blood Type BNEG CERNER [facility] Dispense Status RETURNED [facility] Blood 12/09/2024 5:42 AM CDT 12/09/2024 5:41 AM CDT Narrative CERNER [facility] - 12/09/2024 3:35 PM CDT Specify Procedure:->AVR WITH ROOT ENLARGEMENT, CABG, VELA HARVEST Are special requirements needed? (All products are leukoreduced and CMV- safe)- >No Date required:-[id number] LRRBC # of [id number] Reasons:-Hold for procedure (specify procedure)} us Rekha Dee NP BLOOD BANK PRODUCT ORDE ROBERTO Final Result [facility] Department [place] [address] * TYPE AND SCREEN 14 DAY (11/27/2024 12:51 PM CDT) Sarah, indirect Negative ABO Rh B Negative [facility] Blood 11/27/2024 12:5 1 PM CDT 11/27/2024 1:18 PM CDT Narrative [facility] - 11/27/2024 2:33 PM CDT Has [...] ORDER ROSY Final Result Performing Organization Address [facility] Co de Phone Number [facility] Department [place] [address] * eGFR (11/27/2024 12:51 PM CDT) eGFR [...] ORDERABLES Brenda l Result Performing Organization Address City/[facility]/ZIP Co de Phone Number [facility] Department [place] [address] * Differential, auto (11/27/2024 12:51 PM CDT) Neutrophil abs 6.41 1.50 - 6.50 K/cumm Imm gran abs 0.04 0.00 - 0.10 K/cumm [facility] Lymphocyte abs 1.34 0.80 - 3.30 K/cumm [facility] Monocyte abs 0.51 0.20 - 0.80 K/cumm [facility] Eosinophil abs 0.31 0.00 - 0.50 K/cumm [facility] Basophil abs 0.05 0.00 - 0.10 K/cumm [facility] Neutrophil pct 73.9 % [facility] Comment: Interpretive Data Percent cell count reference ranges are not reported, since discordance with absolute values may lead to misinterpretation of CBC data. Current Interpretive Data was last revised on 2017. Imm gran pct 0.5 % [facility] Comment: Interpretive Data Percent cell count reference ranges are not reported, since discordance with absolute values may lead to misinterpretation of CBC data. Current Interpretive Data was last revised on 2017. Lymphocyte pct 15.5 % [facility] Comment: Interpretive Data Percent cell count reference ranges are not reported, since discordance with absolute values may lead to misinterpretation of CBC data. Current Interpretive Data was last revised on 2017. Monocyte pct 5.9 % [facility] Comment: Interpretive Data Percent cell count reference ranges are not reported, since discordance with absolute values may lead to misinterpretation of CBC data. Current Interpretive Data was last revised on 2017. Eosinophil pct 3.6 % [facility] Comment: Interpretive Data Percent cell count reference ranges are not reported, since discordance with absolute values may lead to misinterpretation of CBC data. Current Interpretive Data was last revised on 2017. Basophil pct 0.6 % [facility] Comment: Interpretive Data Percent cell count reference ranges are not reported, since discordance with absolute values may lead to misinterpretation of CBC data. Current Interpretive Data was last revised on 2017. Blood 11/27/2024 12:5 1 PM CDT 11/27/2024 1:32 PM CDT Brina Celis Jacky JUNIOR BOOKKEEPER LAB BLOOD ORDERABLES Brenda l Result Performing Organization Address [facility] Co de Phone Number [facility] [place] [address] * CPAP aPTT algorithm (11/27/2024 12:51 PM CDT) [facility] aPTT 32 28 - 38 sec Comment: Interpretive Data Heparin therapeutic range: 66.0 - 100.0 seconds. Range based on correlation with therapeutic heparin activity range of 0.3 - 0.7 Units/mL. Current interpretive data was last revised on 2023. Blood 11/27/2024 12:5 1 PM CDT 11/27/2024 1:27 PM CDT Brina Celis Jacky JUNIOR BOOKKEEPER LAB BLOOD ORDERABLES Brenda l Result Performing Organization Address [facility] de Phone Number [facility] [place] [address] * (ABNORMAL) CBC with auto differential (11/27/2024 12:51 PM CDT) [facility] WBC 8.66 3.80 - 9.90 K/cumm Hgb 13.1 11.9 - 15.5 g/dL [facility] Hct 37.5 35.6 - 45.5 % [facility] Plt 246 150 - 400 K/cumm [facility] MPV 8.2(L) 9.1 - 12.3 fL [facility] RBC 4.24 3.90 - 5.20 M/cumm [facility] MCV 88.4 81.3 - 96.4 fL [facility] MCH 30.9 27.1 - 33.3 pg [facility] MCHC 34.9 32.3 - 35.7 g/dL [facility] RDW CV 13.5 11.1 - 14.9 % [facility] RDW SD 43.8 35.7 - 48.1 fL [facility] NRBC abs 0.00 0.00 - 0.01 K/cumm [facility] Blood 11/27/2024 12:5 1 PM CDT 11/27/2024 1:32 PM CDT Brina Rico JUNIOR BOOKKEEPER LAB BLOOD ORDERABLES Brenda l Result Performing Organization Address [facility] de Phone Number [facility] [place] [address] * Protime-INR (11/27/2024 12:51 PM CDT) Pathologist [facility] PT 12.2 9.7 - 13.0 sec INR 1.13 0.90 - 1.20 [facility] Comment: Interpretive data Oral anticoagulant therapeutic ranges: Venous thromboembolism prophylaxis or treatment: 2.0-3.0 CARDIOLOGY Standard range: 2.0-3.0 High-intensity range: 2.5-3.5 Refer to indication-specific guidelines for appropriate target ranges for prosthetic heart valve replacement. Current interpretive data was last revised on 2019. Blood 11/27/2024 12:5 1 PM CDT 11/27/2024 1:27 PM CDT Result [facility] Brina Rico JUNIOR BOOKKEEPER LAB BLOOD ORDERABLES Brenda l Result Performing Organization Address [facility] de Phone Number [facility] [place] [address] * Comprehensive metabolic panel (11/27/2024 12:51 PM CDT) Sodium 142 135 - 145 mmol/L Potassium, pl 4.3 3.3 - 4.9 mmol/L [facility] Chloride 108 97 - 110 mmol/L [facility] CO2 26 22 - 32 mmol/L [facility] Anion gap 8 2 - 15 mmol/L [facility] BUN 20 6 - 25 mg/dL [facility] Creatinine 0.89 0.60 - 1.10 mg/dL [facility] Glucose 96 70 - 199 mg/dL [facility] Comment: Interpretive Data Fasting glucose >/= [...] 2022. Calcium 9.6 8.5 - 10.3 mg/dL [facility] Bilirubin, total 0.7 0.1 - 1.2 mg/dL [facility] Protein, pl 6.5 6.5 - 8.5 g/dL [facility] Albumin 4.2 3.5 - 5.0 g/dL [facility] Alk phos 54 40 - 130 Units/L [facility] ALT 23 7 - 45 Units/L [facility] AST 25 10 - 45 Units/L [facility] Blood 11/27/2024 12:5 1 PM CDT 11/27/2024 1:32 PM CDT Brina Rico NP LAB BLOOD ORDERABLES Brenda wharton Result [facility] Department [place] [address] * (ABNORMAL) Urinalysis reflex to microscopic and culture Urine, clean voided (11/12/2024 5:27 PM CDT) Color, ur Straw Yellow Clarity, ur Clear Clear [facility] Specific gravity, ur >1.042(H) 1.003 - 1.030 [facility] pH, urine 6.5 [facility] Comment: Interpretive Data U rine pH is affected by diet, medications, systemic acid-base disturbances, and renal tubular function. pH may affect urinary stone formation. For example, urine pH below 6.0 may help reduce the tendency for calcium phosphate stones and pH greater than 6.0 may reduce the tendency for uric acid stone formation. Source: [facility] Current Interpretive Data was last revised on 2017 Protein, ur ql Trace Negative [facility] Glucose, ur ql Negative Negative [facility] Ketones, ur Negative Negative [facility] Bilirubin, ur Negative Negative [facility] Blood, ur Negative Negative [facility] Urobilinogen, ur <2.0 <2.0 mg/dL [facility] Nitrite, ur Negative Negative [facility] Leukocyte esterase, ur 1+(A) Negative [facility] UA reflex comment Reflex to microscopic UA will be performed. [facility] Urine, clean voided 11/12/2024 5:27 PM CDT 11/12/2024 5:51 PM CDT Luz Bustos NP LAB MICROBIOLOGY - GE NERAL ORDERABLES Final Result Performing Organization Address [facility] Co de Phone Number [facility] [place] [address] * (ABNORMAL) Urinalysis, microscopic only (11/12/2024 5:27 PM CDT) WBC, ur 6-10(A) 0 - 5 /HPF RBC, ur 0-2 0 - 2 /HPF [facility] Epithelial cells, squamous, ur 6-10(A) 0 - 5 /HPF [facility] Comment:Suggestive of contam ination. Consider recollection by clean catch. Culture Reflex Comment Reflex conditions for urine culture (WBC >10) not met. [facility] Urine, clean voided 11/12/2024 5:27 PM CDT 11/12/2024 5:51 PM CDT Luz Bustos JUNIOR BOOKKEEPER LAB URINE ORDERABLES Final Result Performing Organization Address [facility] Co de Phone Number [facility] [place] [address] * ECG 12 lead (11/12/2024 4:13 PM CDT) Ventricular Rate EKG/Min 70 BPM [facility] Atrial Rate 70 BPM [facility] KS-Interval (MSEC) 206 ms [facility] QRS-Interval (MSEC) 102 ms [facility] QT-Interval (MSEC) 428 ms [facility] QTc 462 ms [facility] P [place] 36 degrees [facility] R [place] -21 degrees [facility] T [place] 108 degrees [facility] Diagnosis Normal sinus rhythm Moderate voltage criteria for LVH, may be normal variant ( R in aVL , [place] product ) ST & T wave abnormality, consider lateral ischemia Abnormal ECG When compared with ECG of 18-OCT-2010 13:54, PREVIOUS ECG IS PRESENT Confirmed by Bety RODRIGUEZ, Hank ([id number]) on 11/13/2024 12:46:48 PM [facility] 11/12/2024 4:13 PM CDT 11/13/2024 12:46 PM CDT Luz Bustos NP ECG ORDERABLES Final Result [facility] * CT TAVR (11/12/2024 2:25 [...] mm x 30 mm x 30 mm [id number] Sinotubular junction: 28 mm x 27 mm Maximum ascending aorta: 36 x 34 mm Distance to RCA ostium from aortic valve annulus: 11 mm Distance to left main ostium from annulus: 13 mm Deployment angle: 23 TANZANIAN, 14 Cranial Right coronary sinus height: 19 [...] mm x 30 mm x 30 mm [id number] Sinotubular junction: 28 mm x 27 mm Maximum ascending aorta: 36 x 34 mm Distance to RCA ostium from aortic valve annulus: 11 mm Distance to left main ostium from annulus: 13 mm Deployment angle: 23 TANZANIAN, 14 Cranial Right coronary sinus height: 19 [...] CDT 11/12/2024 1:38 PM CDT Naz Gordillo NP LAB POCT ORDERABLES - DE VICE Final Result [facility] Department [place] [address] from Last 3 Months Insurance [facility] Advance Directives For more information, please contact: [phone] Documents on File Type Date Recorded Patient Video 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 Engineer Expl anation ADVANCE DIRECTIVE 12/12/2024 11:13 AM HUONG R OF HEAD NECK SURGEON-MEDICAL * Full Code (Latest Code Status on File) Date Activated Date Inactivated Comments 12/09/2024 3:28 PM 01/02/2025 7:06 PM Care Teams Nascar Racer Relationship Specialty Start Date End Date Pacheco Mejia DO [address] [place] [address] [address] [place] [address] PCP - General Internal Medicine 01/22/23 Justin Herron DO [address] [place] [address] Referring Physician Cardiology 10/14/24 Indiana Mortensen MD [address] [facility] [id number] [place] [address] Cardiothoracic Surgery 01/02/25 Unknown, Notinfile 01/02/25 Shelton Marcelo MD [address] [facility] [id number] [place] [address] Consulting Physician Physical Medicine and Rehabilitation 01/14/25
--- OUTSIDE RECORDS SUMMARY | 2025-02-09 11:32 | XMS_ITS ---
Author Name Maximo Mckinney DO Address [address] [place] [address] Phone [phone] Organization [facility] Care Team Providers Care Grainer Machine Name Role Phone Maximo Mckinney Unavailable [phone] Primarily Home Tier 2 RN (STL), Sigrid Stewart U navailable Unavailable Latisha Andrade Courtney Unavailable Unavail able Josette Oshea Unavailable [phone] Prim[facility] Home Tier 1 RN (STL), Sigrid Stewart U navailable Unavailable ELODIA FORTE Unavailable [phone] TIMOTHY CLIFFORD Unavailable [phone] Reason for Referral Not Available Allergies, adverse [...] tablet orally daily 11-16-13 No Data Available [place]-3 Fish Oil 1200 mg Cap 1 Capsule daily 2024-10-14 4 No Data Available calcium citrate 1000 mg once a day 2024-10-27 No D rebecca Available vitamin c = calcium carbonat e 1000 mg/50 mg once a day 2024-10-27 No Data Available Problem List Problem Status Onset Date Resolved Date Synopsis Hypertension Inactive 2024-10-27 N/A With diet an d med Anxiety Active 2024-10-27 N/A Uncontrolled w ith med and sees a counselor Muscle pain Inactive 2024-10-27 N/A With med Neuropathy Inactive 2024-10-27 N/A With med Seasonal allergies Inactive 2024-10-27 N/A With m eds Chest pain Active 2024-10-27 N/A Just started o n Nitro for chest pain within two weeks Hyperlipidemia Inactive 2024-10-27 N/A With diet and med Aortic stenosis, severe Active 2024-10-27 N/A H aving open heart surgery Sciatica of left side Inactive 2024-10-27 N/A Wit h meds Spondylosis, cervical Inactive 2024-10-27 N/A Wit h meds Depression Active 2024-10-27 N/A Currently taki ng meds and sees a counselor Morbid obesity Active 2024-10-27 N/A Recommend diet and exercise if approved by [employer] Operator Dyspnea on exertion Active 2024-10-27 N/A Kolby garzon valve replacement Encounters Encounters Type Facility Date of Service [...] medical decision making, total time 30-44 minutes [id number] 2024-10-27 No Data Available No Data Availa [...] any relevant findings from the examination. Mrs. Vega looks well for an aortic stentotic patient [...]
[2025-02-09 13:07] LABS: Hematocrit 38.6 % (37.0-47.0); Hemoglobin 12.3 g/dL (12.0-15.0); Immature Granulocyte Percent A 0.3 % (0-0.5); Lymphocytes Absolute Auto 1.19 K/mm3 (0.9-3.2); Mean Corpuscular HGB Conc 31.9 g/dl (32-36); Mean Corpuscular Hemoglobin 27.8 pg (26-34); Mean Corpuscular Volume 87.3 fl (80-100); Nucleated Red Blood Cells Absolute Auto 0.000 K/mm3 (0.0-0.012); Nucleated Red Blood Cells Perc 0.0 % (0.0-0.2); Platelet Count Result 249 k/mm3 (150-375); Red Blood Count 4.42 M/mm3 (4.2-5.4); White Blood Count 9.3 K/mm3 (4.5-10.0)
[2025-02-09 14:20] LABS: Alanine Aminotransferase 21 U/L (6-35); Albumin Level 4.1 g/dL (3.5-5.1); Alkaline Phosphatase 69 U/L (38-126); Anion Gap 10 mmol/L (4-12); Aspartate Amino Transferase 47 U/L (14-36); Bilirubin,Total 0.4 mg/dL (0.2-1.3); Blood Urea Nitrogen 25 mg/dL (7-17); Calcium 9.4 mg/dL (8.4-10.2); Carbon Dioxide 23 mmol/L (22-30); Chloride 106 mmol/L (98-107); Estimated Glomerular Filt Rate 59; Glucose 91 mg/dL (65-110); Magnesium 2.1 mg/dL (1.6-2.3); Potassium 4.4 mmol/L (3.4-5.0); Sodium 139 mmol/L (137-145); Total Protein 6.8 g/dL (6.3-8.2)
[2025-02-09 14:57] LABS: Thyroid Stimulating Hormone 0.110 uIU/mL (0.465-4.680)
[2025-02-09 15:06] LABS: Hemoglobin A1C 4.9 % (<5.7)
[2025-02-09 15:35] LABS: Vitamin B12 > 1000.0 pg/mL (239-931)
== END 2025-02-09 11:04 | disposition home or self-care (01) ==
LOC: ANHGOSHLAB 11:04
PROVIDERS: PCP Internal Medicine; Visit Provider Internal Medicine
DX: I10 Essential (primary) hypertension (principal); E55.9 Vitamin D deficiency, unspecified; R73.9 Hyperglycemia, unspecified; I25.10 Atherosclerotic heart disease of native coronary artery without angina pectoris; R94.6 Abnormal results of thyroid function studies; R74.8 Abnormal levels of other serum enzymes; D72.829 Elevated white blood cell count, unspecified; R53.83 Other fatigue; Z79.01 Long term (current) use of anticoagulants; Z95.3 Presence of xenogenic heart valve
CPT/HCPCS: 36415; 80053; 82306; 82607; 82746; 83036; 83735; 84443; 85025

== ENCOUNTER 2025-02-26 19:17 | Emergency (ER) | payer OTHER, MEDICAID, SELFPAY ==
--- NOTE | ~2025-02-26 | XR_ITS ---
EXAM: XR wrist RT min 3V DATE: 02/26/2025 19:36 HISTORY: FALL/RIGHT WRIST PAIN . COMPARISON: None available. FINDINGS: Normal mineralization. No fracture or dislocation. No lytic or blastic lesion. Mild scatte red degenerative changes. No erosion or periosteal change. Soft tissues within normal limits. IMPRESSION: . Reviewed, dictated and finalized at location K. IMPRESSION: .
[2025-02-26 19:27] VITALS: BP 152/92; PULSE 87; RESP 16; TEMP 35.7; O2SAT 99
--- NOTE | 2025-02-26 20:19 | ED.UPPEXIN ---
HPI - Extremity Injury (Upper) General Chief Complaint: Extremity Injury, Upper Stated Complaint: INJURED R WRIST Time Seen by Provider: 02/26/25 19:40 Source: patient and RN notes reviewed Mode of arrival: ambulatory Limitations: no limitations History of Present Illness HPI narrative: 64-year-old female presents Express Care complaining of the right wrist injury. Patient says he was outside when she tripped over the asked showed her and fell forward landing on her right wrist. Patient denies hitting her head, any loss of consciousness, neck pain, or back pain. Patient had EMS come out and help her back up. Patient does take Eliquis for DVT. Patient denies any headaches, dizziness, lightheadedness, nausea vomiting, chest pains, difficulty breathing, or any other injuries. Patient says she is having a hard time moving her right wrist. She denies any numbness or tingling. Patient is using ice to her right wrist. Related Data Home Medications ?Medication ?Instructions ?Recorded ?Confirmed ?Last Taken ?Type Biotin Hyaluric Acid 10,000 mcg PO DAILY 05/21/23 02/26/25 09/30/24 History Iron 65 Mg W Vit C 270mg 65 mg PO DAILY 05/21/23 02/26/25 10/01/24 History lamotrigine 100 mg tablet 100 mg PO DAILY 02/23/24 02/26/25 10/01/24 History lorazepam 0.5 mg tablet 0.5 mg PO PRN PRN Anxiety 02/23/24 02/26/25 09/29/24 History calcium 315 mg (as 1 tablet PO DAILY 03/06/24 02/26/25 09/29/24 History citrate)-vitamin D3 5 mcg (200 unit) tablet (Calcium Citrate + D) melatonin 10 mg capsule 10 mg PO HS PRN Sleep 03/06/24 02/26/25 10/01/24 History acetaminophen 500 mg tablet 500 mg PO .PRN PRN pain 09/18/24 02/26/25 10/06/24 History wyptuxce-[id number]-[id number] 45 mg-folic 1 cap PO DAILY 09/18/24 02/26/25 10/01/24 History acid 800 mcg-vit K 120 mcg capsule (Bariatric Multivitamins) omega-3 fatty acids 1 cap PO DAILY 09/18/24 02/26/25 10/01/24 History vitamin c 1000mg + Calc carbnt 52mg See Rx Instructions BYMOUTH 09/18/24 02/26/25 10/01/24 History .COMPLEX methocarbamol 750 mg tablet 750 mg PO .COMPLEX PRN spasms 10/17/24 02/26/25 Unknown History aspirin 81 mg tablet,delayed 81 mg PO DAILY 02/03/25 02/26/25 Unknown History release (Adult Low Dose Aspirin) carboxymethylcellulose sodium 0.5 1 drp EACH EYE DAILY PRN 02/03/25 02/09/25 Unknown History % eye drops in a dropperette (Refresh Plus) cyanocobalamin (vitamin B-12) 500 1,000 mcg PO DAILY 02/03/25 02/26/25 Unknown History mcg tablet furosemide 20 mg tablet (Lasix) 20 mg PO QAM 02/03/25 02/26/25 Unknown History loratadine 10 mg tablet (Claritin) 10 mg PO DAILY 02/03/25 02/26/25 Unknown History hydroxyzine HCl 10 mg tablet 10 mg PO TID PRN sleep 02/09/25 02/26/25 Unknown History hydroxyzine HCl 50 mg tablet 50 mg PO QHS 02/09/25 02/26/25 Unknown History cetirizine 10 mg tablet 10 mg PO DAILY PRN allergy symptoms 02/26/25 02/26/25 Unknown History docusate sodium 100 mg capsule 100 mg PO HS 02/26/25 02/26/25 Unknown History (Colace) sacubitril 24 mg-valsartan 26 mg tablet 02/26/25 Unknown History tablet (Entresto) Allergies Allergy/AdvReac Type Severity Reaction Status Date / Time Penicillins Allergy Intermediate Hives Verified 02/09/25 10:22 tetracycline Allergy Unknown Unknown Verified 02/09/25 10:22 amoxicillin (From Augmentin) Allergy Hives Verified 02/09/25 10:22 clavulanic acid (From Allergy Hives Verified 02/09/25 10:22 Augmentin) Review of Systems Review of Systems: CONSTITUTIONAL: Denies fever, chills, or sweats. EYES: Denies visual changes, redness, or discharge. ENT: Denies rhinorrhea, congestion, sore throat, or otalgia. CARDIOVASCULAR: Denies chest pain, palpitations, or edema. RESPIRATORY: Denies cough or dyspnea. GASTROINTESTINAL: Denies abdominal pain, nausea, vomiting, or diarrhea. GENITOURINARY: Denies dysuria or hematuria. SKIN: Denies rash, wound, or itching. MUSCULOSKELETAL: Denies back pain, joint pain, or myalgia. Positive for right wrist injury. NEUROLOGIC: Denies headache, numbness, or weakness. PSYCHIATRIC: Denies anxiety or depression. All other systems reviewed are negative, except as documented in HPI. [facility] Past Medical History Medical History Chronic anticoagulation Encounter to [facility] care Hospital discharge follow-up Achilles tendinitis of left lower extremity Morbid obesity due to excess calories Tear of biceps muscle Obesity Peripheral neuropathy Restless leg syndrome Lumbosacral spondylosis Dorsalgia Low TSH level Thyrotoxicosis, unspecified with thyrotoxic crisis or storm Chronic post-traumatic stress disorder (PTSD) Hyperlipidemia Essential hypertension Depression Obstructive sleep apnea of adult Osteoarthritis Moderate aortic stenosis Anemia Cervical radiculopathy Vitamin D deficiency Anxiety Surgical History Surgical History History of left knee replacement Hx of appendectomy 08/27/2014 History of lumpectomy of left breast H/O abdominal hysterectomy With unilateral oophorectomy History of total right knee replacement (TKR) Hx of cardiac cath Nonobstructive CAD by cath 10/18/2010-normal m, cx. 30% LAD/RCA (per [facility] note) H/O gastric bypass Social History Social History Smoking status: Never smoker Second hand tobacco smoke exposure: No Alcohol intake: never Drinks per week: 0 Alcohol use details: RARE, ONE A MONTH Substance use: never Substance use type: does not use Do You Feel Safe in your Home?: Yes Lack of Transportation: No Lack of Food: Sometimes True Current Housing: I Have Housing Concerned About Future Housing: YES Difficulty Paying Gas/Electric Bills: YES Difficulty Paying for Meds: No Currently Unemployed: No Education: Bachelor's Degree Difficulty w/ Childcare or Family Care: No Living arrangements: with family Spiritual care concerns: No Comments At the time of my signature, I reviewed and agree with the nursing past medical, surgical, social, and family history. There is no relevant family history pertinent to the patient complaint. Exam Narrative: GENERAL: This is a well-nourished, well-developed adult, in no apparent distress. They are non ill-appearing, nontoxic appearing. HEAD: normocephalic, atraumatic. No raccoon eyes or Menezes signs. EYES: Sclera clear/white. Vision is grossly intact. Conjunctiva normal. Extraocular movement intact. Pupils PERRLA. EARS: External ears normal Hearing grossly intact. NOSE: External nose normal THROAT: Mucous membranes moist NECK: Neck supple. Nontender without lymphadenopathy, no swelling or thyromegaly. No cervical point tenderness, crepitus, step-offs. Midline tenderness. CARDIOVASCULAR: Regular rate and rhythm RESPIRATORY: Respiratory rate normal, respiratory effort nonlabored, no respiratory distress NEURO: awake, alert, and oriented to person, place and time. There were no obvious focal neurologic abnormalities. Cranial nerve 2-12 grossly intact. EXTREMITIES: Right rest: No obvious deformity, injury, swelling, bruising, redness. Tenderness through full range of motion. Tenderness to palpation to the lateral wrist. Capillary refill less than 3 seconds. Right radial Pulse 2 +palpable. Normal sensation. Neurovascular status intact distal injury. Patient is able to wiggle her fingers. Patient can make a fist, stop sign, thumbs-up sign, okay sign. Radial ulnar nerve distribution intact. BACK: Nontender without deformity. No thoracic or lumbar point tenderness, crepitus, or step-offs. Course Course Emergency Course: Portions of this record may have been created with voice recognition software Level of Care: Express Care Visit Vital Signs Vital signs: Vital Signs Temperature 96.2 F L 02/26/25 19:27 Pulse Rate 87 02/26/25 19:27 Respiratory Rate 16 02/26/25 19:27 Blood Pressure 152/92 H 02/26/25 19:27 Pulse Oximetry 99 02/26/25 19:27 Temperature 96.2 F L 02/26/25 19:27 Pulse Rate 87 02/26/25 19:27 Respiratory Rate 16 02/26/25 19:27 Blood Pressure 152/92 H 02/26/25 19:27 Pulse Oximetry 99 02/26/25 19:27 Reviewed MDM - Extremity Injury (Upper) MDM Narrative Medical decision making narrative: Patient adamantly denies hitting her head or having any other injuries besides her right wrist. Patient does take Eliquis. Physical exam is reassuring. X-ray of right wrist shows no fracture or acute findings. Likely patient has a wrist sprain. Patient given [place] wrap. Discussed physical exam findings. Advised supportive measures and signs/symptoms to go to the ER. Pt is appropriate for outpt treatment and f/u. Differential Diagnosis Differential diagnosis: Likely sprain and strain of wrist, fracture of wrist and fracture of hand Critical Care Time Critical Care Time Critical Care Time: No Discharge Plan Discharge Clinical Impression: Fall Qualifiers: Encounter type: initial encounter Qualified Code(s): W19.XXXA - Unspecified fall, initial encounter Injury of wrist, right Qualifiers: Encounter type: initial encounter Qualified Code(s): S69.91XA - Unspecified injury of right wrist, hand and finger(s), initial encounter Patient Disposition: Home Condition: Stable Instructions: Fall Prevention for Older Adults (ED), Wrist Sprain (ED) Additional Instructions: The x-ray of your right wrist is negative for any fractures or acute findings. Rest and elevate the wrist; use wrist as tolerated. Apply ice 15-20 minute intervals several times a day Keep it wrapped with GUANAKO or use a wrist cock-up splint. You may take up to 1000 mg Tylenol every 6-8 hours. Do not exceed 1000 mg per dose, do exceed more than 4000 mg of Tylenol in a day. Follow up with your primary care provider or an orthopedist as needed in 1-2 weeks especially if pain persists Go to the ER ER if you develops severe headaches, vision changes, dizziness, loss of consciousness, lightheadedness, weakness, slurred speech, confusion, seizures, or any serious concerns. Patient Language: Swedish Prescriptions: No Action Biotin Hyaluric Acid 10,000 mcg PO DAILY Iron 65 Mg W Vit C 270mg 65 mg PO DAILY calcium citrate-vitamin D3 [Calcium Citrate + D] 315 mg-5 mcg (200 unit) Tablet 1 tablet PO DAILY melatonin 10 mg Capsule 10 mg PO HS PRN (Reason: Sleep) lorazepam 0.5 mg tablet 0.5 mg PO PRN PRN (Reason: Anxiety) lamotrigine 100 mg tablet 100 mg PO DAILY sacubitril-valsartan [Entresto] 24-26 mg tablet docusate sodium [Colace] 100 mg capsule 100 mg PO HS cetirizine 10 mg tablet 10 mg PO DAILY PRN (Reason: allergy symptoms) Eliquis 5 mg tablet 5 mg PO BID Qty: 180 0RF atorvastatin [Lipitor] 20 mg tablet 20 mg PO DAILY Qty: 90 2RF metoprolol succinate 25 mg tablet extended release 24 hr 25 mg PO DAILY Qty: 90 2RF spironolactone [Aldactone] 25 mg tablet 25 mg PO DAILY Qty: 90 2RF aspirin [Adult Low Dose Aspirin] 81 mg tablet,delayed release (DR/EC) 81 mg PO DAILY cyanocobalamin (vitamin B-12) 500 mcg tablet 1,000 mcg PO DAILY furosemide [Lasix] 20 mg tablet 20 mg PO QAM loratadine [Claritin] 10 mg tablet 10 mg PO DAILY carboxymethylcellulose sodium [Refresh Plus] 0.5 % dropperette 1 drp EACH EYE DAILY PRN hydroxyzine HCl 10 mg tablet 10 mg PO TID PRN (Reason: sleep) hydroxyzine HCl 50 mg tablet 50 mg PO QHS bupropion HCl [Wellbutrin SR] 100 mg tablet sustained-release 12 hr 100 mg PO BID Qty: 180 1RF duloxetine 60 mg capsule,delayed release(DR/EC) 60 mg PO DAILY Qty: 90 1RF vitamin c 1000mg + Calc carbnt 52mg See Rx Instructions BYMOUTH .COMPLEX Rx Instructions: 1 orally; acetaminophen 500 mg tablet 500 mg PO .PRN PRN (Reason: pain) Bariatric Multivitamins 45 mg iron- 800 mcg-120 mcg capsule 1 cap PO DAILY omega-3 fatty acids [[place]-3] 1 cap PO DAILY methocarbamol 750 mg tablet 750 mg PO .COMPLEX PRN (Reason: spasms) Rx Instructions: 750 mg orally PRN; nitroglycerin 0.4 mg tablet, sublingual 0.4 mg sublingual Q5-15M PRN (Reason: chest pain) Qty: 10 0RF Rx Instructions: do not exceed 3 doses per episode omeprazole 40 mg capsule,delayed release(DR/EC) 40 mg PO DAILY Qty: 90 1RF fluticasone propionate 50 mcg/actuation spray,suspension 2 spray intranasal DAILY Qty: 48 1RF Rx Instructions: administer into each nostril pregabalin [Lyrica] 75 mg capsule 75 mg PO BID Qty: 60 2RF Follow-up/Referrals: Pacheco Mejia, DO [Primary Care Provider] - Time of Disposition: 20:15
== END 2025-02-26 20:19 | disposition home or self-care (01) ==
PROVIDERS: PCP Internal Medicine
DX: S69.91XA Unspecified injury of right wrist, hand and finger(s), initial encounter (principal); W01.0XXA Fall on same level from slipping, tripping and stumbling without subsequent striking against object, initial encounter; I10 Essential (primary) hypertension; I35.0 Nonrheumatic aortic (valve) stenosis; E78.5 Hyperlipidemia, unspecified; G62.9 Polyneuropathy, unspecified; G25.81 Restless legs syndrome; M19.90 Unspecified osteoarthritis, unspecified site; F41.9 Anxiety disorder, unspecified; E55.9 Vitamin D deficiency, unspecified; E66.01 Morbid (severe) obesity due to excess calories; Z68.42 Body mass index [BMI] 45.0-49.9, adult; Z86.718 Personal history of other venous thrombosis and embolism; Z79.01 Long term (current) use of anticoagulants; Z96.653 Presence of artificial knee joint, bilateral; Z98.84 Bariatric surgery status
CPT/HCPCS: 73110; 99213; G0463

== ENCOUNTER 2025-03-09 10:32 | Outpatient (CLI) | payer OTHER, MEDICAID, SELFPAY ==
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
--- OUTSIDE RECORDS SUMMARY | 2025-03-09 11:24 | XMS_ITS | Clinical Summary ---
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 Active fluticasone propionate (FLONASE) 50 mcg/spray [place], Suspension nasal inhaler USE 2 SPRAY(S) IN [...] Comments Blood Pressure 129/70 05/30/2023 10:21 AM COP EXAMINER Pulse 93 05/30/2023 10:21 AM COP EXAMINER Temperature 35.7 C (96.2 F) 05/30/2023 10:21 AM COP EXAMINER Respiratory Rate 12 05/30/2023 10:21 AM COP EXAMINER Oxygen Saturation 96% 05/30/2023 10:21 AM COP EXAMINER Inhaled Oxygen Concentration - - Weight 134.3 kg (296 lb) 05/30/2023 10:21 AM COP EXAMINER Height 160 cm (5' 3) 05/30/2023 10:21 AM COP EXAMINER Body Mass Index 52.43 05/30/2023 10:21 AM COP EXAMINER Plan of Treatment Health Maintenance Due Date [...] (1 - 1-dose 75+ series) 2037 Insurance [employer] [facility] [place] Care Teams Camouflage Specialist Relationship Specialty Start Date End Date Pacheco Mejia DO [address] [facility] [address] [place] [id number] PCP - General Internal Medicine 02/16/23
--- OUTSIDE RECORDS SUMMARY | 2025-03-09 11:25 | XMS_ITS ---
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 Name Role Phone Maximo Mckinney Unavailable [phone] Prim[facility] Tier 2 RN (STL), Sigrid Stewart U navailable Unavailable Latisha Andrade Courtney Unavailable Unavail able Primarily Home Tier 1 RN (STL), Sigrid Bermudez navailable Unavailable ELODIA FORTE Unavailable [phone] TIMOTHY CLIFFORD Unavailable [phone] Reason for Referral Not Available Allergies, adverse [...] tablet orally daily 11-16-13 No Data Available [place]-3 Fish Oil 1200 mg Cap 1 Capsule [...] Recommend diet and exercise if approved by [employer] Dyspnea on exertion Active 2024-10-27 N/A [place] [...] medical decision making, total time 30-44 minutes [id number] 2024-10-27 No Data Available No Data Availa [...] day supply 2024-10-27 [facility] Health Concerns Date [...]
--- OUTSIDE RECORDS SUMMARY | 2025-03-09 11:26 | XMS_ITS | Clinical Summary ---
Author Organization [facility] Address [address] [place] [id number] Phone Care Team Providers Care Felt Puller Name Role Phone Pacheco Mejia DO Primary Care Provider [phone] Justin Herron DO Unavailable [phone] Indiana Mortensen MD Unavailable [phone] Unknown, Notinfile Unavailable Unavailable Shelton Marcelo MD [...] times a day 01/03/20 25 026 Active Additional Information Patient not taking.Reported on 02/09/2025 polyethylene glycol (MIRALAX) 17 gram packetIndications :constipation Take 1 packet (17 g total) by mouth daily as needed for constipation 01/03/20 Active Additional Information Patient not taking.Reported on 02/09/2025 spironolactone (ALDACTONE) 50 mg tablet Take 1 [...] mouth daily 30 tablet 1 01/03/20 25 Active furosemide (LASIX) 20 mg tablet Take [...] (fluid retention). Indications: visible water retention Active Entresto 24-26 mg tablet Take 1 tablet by mouth 2 (two) times a day 01/21/20 Active nitroglycerin (NITROSTAT) 0.4 mg SL tablet Sublingual; Duration: 10 Days Active metoprolol XL (TOPROL-XL) 25 mg extended release tablet Take 1 tablet (25 mg total) by mouth daily 02/05/20 Active Active Problems Problem Noted Date Diagnosed [...] with convulsive syncope - Neuro signed off 6/2, suspect events 2/2 poor CBF during severe [...] to the RVOT under fluro by EP 6: Patient lost capture with TVP causing asystole requiring transcutaneous pacing. EP adjusted TVP and again got capture. 62: TVP no longer capturing, EP attending to bedside and placed a temp perm pacemaker - [employer] RV lead externalized perm pacemaker in [...] and placed a temp perm pacemaker - [employer] RV lead externalized perm pacemaker in [...] Encounters Date Type Department Care Team Description 02/09/2025 1:15 PM CDT Office Visit [facility] Cardiothoracic Surgery [address] [facility] Advanced Medicine 8th Floor [address] [place] [address] Naz Gordillo NP S/P AVR (aortic valve replacement) (Primary Dx); S/P CABG (coronary artery bypass graft) 02/09/2025 12:17 PM CDT - 02/09/2025 11:59 PM CDT Hospital Encounter [facility] [address] [place] [address] Status post cardiac surgery Discharge Disposition: Discharge to home or self care 02/08/2025 Orders Only [facility] Cardiology [address] [facility] 8th [place] [address] [place] [address] Shola Cha MD 01/26/2025 Home Care Visit [address] [address] [address] [place] [address] Tiffany Santiago RN SN VIRTUAL OASIS DISCHARGE 01/26/2025 Home Care Visit [address] [place] [address] Jessica Carver RN SN TRIAGE ENCOUNTER 01/26/2025 Home Care Visit [address] [place] [address] Peter Hebert, PT TELEPHONE ENCOUNTER 01/22/2025 Home Care Visit [address] [place] [address] Tiffany Santiago, RN TELEPHONE ENCOUNTER 01/22/2025 Telephone [facility] Cardiothoracic Surgery [address] [facility] 8th Floor [address] Room [address] [place], [place] [address] Brigitte Sanchez, [facility] 01/21/2025 12:00 PM CDT Home Care Visit [address] [address] [address] [place] [address] Tiffany Santiago RN SN HOME VISIT 01/20/2025 3:00 PM CDT Home Care Visit [address] [place] [address] Peter Hebert, PT PT INITIAL EVALUATION 01/20/2025 11:30 AM CDT Home Care Visit [address] [address] [place] [address] April Sr, OT OT INITIAL EVALUATION 01/18/2025 1:13 PM CDT - 01/18/2025 11:59 PM CDT Hospital Encounter [address] [address] Discharge Disposition: Discharge to home or self care 01/18/2025 1:00 PM CDT Home Care Visit [address] [address] [address] [place] [address] Alana Kim RN SN OASIS START OF CARE 01/18/2025 Plan of Care Documentation [address] [place] [address] 01/17/2025 Home Care Visit [facility] - [place] [address] [facility] [address] [place] [address] Candelaria Silverio, JUANITA TELEPHONE ENCOUNTER 01/15/2025 Telephone [facility] Medicine Cardiology [address] [facility] 8th [place] [address] [place] [address] Shola Cha MD 01/14/2025 Telephone [facility] Home Care Services [address] [facility] [address] [place] [address] Alba Rodriguez, RN 01/14/2025 Telephone [facility] Home Care Services [address] [place] [address] Marian Crowell, JUANITA 01/14/2025 Travel 01/14/2025 Telephone [facility] Home Care Services [address] [facility] [address] [place] [address] Alba Rodriguez, RN 01/14/2025 Telephone [facility] Home Care Services [address] [facility] [address] [place] [address] Alba Rodriguez, RN 01/14/2025 Telephone [facility] Home Care Services [address] [facility] [address] [place] [address] Alba Rodriguez, RN 01/14/2025 Telephone [facility] Home Care Services [address] [facility] [address] [place] [address] Alba Rodriguez, RN 01/13/2025 Telephone [facility] Home Care Services [address] [place] [address] [address] [place] [address] Alba Rodriguez, RN 01/13/2025 Telephone [facility] Home Care Services [address] [place] [address] [address] [place] [address] Alba Rodriguez, RN 01/12/2025 Telephone [facility] Services [address] [place] [address] [address] [place] [address] Alba Rodriguez, RN 01/12/2025 Orders Only [facility] [phone] Unknown, Notinfile 01/12/2025 Telephone [facility] Home Care Services [address] [facility] [address] [place] [address] Alba Rodriguez, RN 01/12/2025 Telephone [facility] Home Care Services [address] [facility] [address] [place] [address] Alba Rodriguez, RN 01/08/2025 Orders Only [facility] [phone] Unknown, Notinfile 01/08/2025 Telephone [facility] Cardiology [address] [facility] 8th [place] [address] [place] [address] Brigitte Sanchez, ZINC CHLORIDE OPERATOR 01/07/2025 1:10 PM CDT - 01/07/2025 11:59 PM CDT Hospital Encounter [facility] [address] [place] [address] S/P AVR (aortic valve replacement) Discharge Disposition: Discharge to home or self care 01/07/2025 8:30 AM CDT Ancillary Procedure [facility] Cardiology [address] [facility] [address] [place] [address] Complete heart block (HCC) [I44.2] (Primary Dx); Fitting or adjustment of cardiac pacemaker 01/05/2025 Orders Only [facility] [phone] Unknown, Notinfile 01/02/2025 Orders Only [facility] Medicine Cardiothoracic Surgery [address] [facility] 8th Floor [address] [place] [address] Naz Gordillo NP Status post cardiac surgery (Primary Dx) 12/31/2024 12:19 PM CDT Anesthesia Event [facility] 1 [place] [phone] David Canseco MD Dippolito, Jenny Irene, NP 12/31/2024 12:05 PM CDT - 12/31/2024 3:05 PM CDT Surgery [facility] 1 [place] [phone] Shola Cha MD IMPLANT DUAL CHAMBER PPM SYSTEM W/ DUAL ELECTRODES (GEN AND LEADS, NEW OR REPLACE) 1988[address] 12/29/2024 Telephone [facility] Medicine Cardiology [address] [facility] 8th [place] [address] [place] [address] Darion Amaralon 12/29/2024 Orders Only [facility] Medicine Cardiology [address] [facility] 8th [place] [address] [place] [address] Shala Oliva NP Fitting or adjustment of cardiac pacemaker (Primary Dx) 12/25/2024 2:52 PM CDT - 12/25/2024 11:59 PM CDT Hospital Encounter [facility] 1 [place] [address] Discharge Disposition: Discharge to home or self care 12/22/2024 8:40 AM CDT Ancillary Procedure [facility] Medicine Vascular Lab IP [address] [facility] [address] [place] [address] 12/19/2024 8:35 AM CDT Ancillary Procedure [facility] Medicine Vascular Lab IP [address] [address] 12/19/2024 8:30 AM CDT Ancillary Procedure [facility] Medicine Vascular Lab IP [address] [address] 12/09/2024 7:00 AM CDT - 12/09/2024 2:55 PM CDT Surgery [facility] 1 [place] [address] Indiana Mortensen MD REPLACEMENT AORTIC VALVE WITH ROOT ENLARGEMENT MURALI 12/09/2024 6:57 AM CDT Anesthesia Event [facility] 1 [place] [address] Deana Cruz MD Dolnick, Karen Leigh, NP 12/09/2024 6:05 AM CDT Ancillary Procedure [facility] 1 [place] [address] Pasquale Dela Cruz MD 12/09/2024 5:03 AM CDT - 01/02/2025 3:01 PM CDT Hospital Encounter [facility] [place] [address] Indiana Mortensen MD Complete heart block (HCC) (Primary Dx); Aortic stenosis, severe; Single vessel coronary artery disease; Toxic metabolic encephalopathy; Bradycardia; Heart valve disease Discharge Disposition: Discharge to an IP Rehab facility from Last 3 Months Immunizations Immunization Administration [...] ELECTRODES (GEN AND LEADS, NEW OR REPLACE) 43988; Surgeon: Shola Cha MD; Location: [facility] EP [facility]; Service: Cardiovascular; Laterality: N/A; [...] materials from doctor or pharmacy Never 01/26/2025 [facility] Utilities Answer Date Recorded In the past 12 months has th e electric, gas, oil, or water company threatened to shut off services in your home? No 12/22/2024 Social Connection and Isolation Panel Answer Date Recorded In a typical week, how many times do you talk on the phone with family, friends, or neighbors? Three times a week 12/22/2024 How often do you get togethe r with friends or relatives? Three times a week 12/22/2024 How often do you attend chur ch or faith services? Never 12/22/2024 Do you belong to any clubs o r organizations such as advent groups, unions, fraternal or athletic groups, or [...] any time in the past 12 m [facility], were you homeless or living in a penitentiary (including now)? No 12/22/2024 Personal Safety Answer Date Recorded Have you ever been in or are you currently in a harmful physical or emotional relationship or is someone making you feel afraid or unsafe? Denies 12/09/2024 Comments No Sex and Gender Information Value Date Recorded Sex Assigned at Not on file Legal Sex Female 3:02 PM PARAEDUCATOR Gender Identity Female 01/25/2023 3:47 PM CDT Sexual Orientation Straight 11/20/2024 5: 09 PM CDT Occupation Industry Job Start Date Job End Date DISABLED Not on file Not on file Not on file Obstetrics History Last Filed Vital Signs Vital Sign Reading Time Taken Comments Blood Pressure 125/80 02/09/2025 12:40 PM CDT Pulse 77 02/09/2025 12:40 PM CDT Temperature 36.8 C (98.2 F) 01/21/2025 12:50 PM CDT Respiratory Rate 20 01/21/2025 12:50 PM CDT Oxygen Saturation 96% 02/09/2025 12:40 PM CDT Inhaled Oxygen Concentration - - Weight 124.3 kg (274 lb) 02/09/2025 12:40 PM CDT Height 160 cm (5' 3) 02/09/2025 12:40 PM CDT Body Mass Index 48.54 02/09/2025 12:40 PM CDT Plan of Treatment Health Maintenance [...] 01/24/2024, 04/16 Medical Devices Implanted Type Area Coffee Shop Attendant Device Identifier Shelf Expiration Date Model / Serial / Lot [employer]ai Lead [id number] Endocardial Pacing Mr Is-1 Bipolar Connection 7841-12/16/2024 Implanted:2024 (Quantity not on file) Lead Right: Ventricle 04/29/2026 / [id number] / Medtronic Inc Capsurefix Novus 6.2fr 2mm 52cm Bipolar Screw In Implantable Latex Free 5076-52 - [id number] - [id number] Implanted:Qty: 1 on 12/31/2024 by Shola Cha MD at [facility] Lead Right: Ventricle Medtronic Inc 10/09/2026 5076-52 / [id number] 12V / [id number] 12V Medtronic Inc Capsurefix Novus 6.2fr 2mm 45cm Bipolar Screw In Implantable 5076-45 - [id number] - [id number] Implanted:Qty: 1 on 12/31/2024 by Shola Cha MD at [facility] Lead Right: Atria Medtronic Inc 10/10/2026 5076-45 / [id number] 73V / [id number] 73V Medtronic Inc Tyrx Absorbable Antibacterial Envelope Med 2.7x2.5in [id number] - [id number] - [id number] Implanted:Qty: 1 on 12/31/2024 by Shola Cha MD at [facility] Other - see comments Right: Chest Wall Medtronic Inc 09/25/2025 [id number] 2 / [id number] / [id number] Description:Tyrex Medtronic Inc Qian S Mri Surescan 50.8x46.6mm 2 Chamber 7.4mm Pacemaker 22.5gm W3dr01 - [id number] - [id number] Implanted:Qty: 1 on 12/31/2024 by Shola Cha MD at [facility] Pacemaker Right: Chest Wall Med[employer]onic Inc 04/28/2026 [id number] / [id number] 65G / [id number] 65G [facility] Nikolai Patch Cardiovascular 14x8cm Samantha-Guard Derry Processing Qz0230 - [id number] - [id number] Implanted:Qty: 1 on 12/09/2024 by Indiana Mortensen MD at [facility] Chest [facility] Nikolai [id number] 05/27/2026 [id number] / [id number] / [id number] [employer] Inspiris Resilia Leaflet Sewing Ring 27mm Valve Aortic Bovine [id number] - [id number] - [id number] Implanted:Qty: 1 on 12/09/2024 by Indiana Mortensen MD at [facility] Heart [employer] [id number] 08/27/2029 [id number] 7 / [id number] / Arthrex Inc Device Closure Fibertape Sternal Cerclage Blunt Needle Ar-7289 - [id number] Implanted:Qty: 1 on 12/09/2024 by Indiana Mortensen MD at [facility] N/A: Sternum [employer] Inc 05/15/2029 AR-7289 / / [id number] Esme [employer] Plate Bone Low Profile 6 Hole O Shape Sternum Ti 115.104.06 - [id number] Implanted:Qty: 1 on 12/09/2024 by Gordy Bourgeois MD at [facility] N/A: Sternum [employer] 115.104 .06 / / Esme [employer] Plate Bone Low Profile 6 Hole H Shape Sternum Ti 115.102.06 - [id number] Implanted:Qty: 2 on 12/09/2024 by Indiana Mortensen MD at [facility] N/A: Sternum [employer] 115.102 .06 / / Esme [employer] Screw Bone Slf Drl Full Thread Locking 3.5x16mm Ti 100.035.16 - [id number] Implanted:Qty: 8 on 12/09/2024 by Indiana Mortensen MD at [facility] N/A: Sternum [employer] 100.035 .16 / / [employer] Screw Bone Slf Drl Full Thread Locking 3.5x18mm Ti 100.035.18 - [id number] Implanted:Qty: 4 on 12/09/2024 by Gordy Bourgeois MD at [facility] N/A: Sternum [employer] 100.035 .18 / / [employer] Screw Bone Slf Drl Full Thread Locking 3.5x20mm Ti 100.035.20 - [id number] Implanted:Qty: 6 on 12/09/2024 by Gordy Bourgeois MD at [facility] N/A: Sternum [employer] 100.035 .20 / / Procedures Procedure Name Priority Date/Time Associated Diagnosis Comments XR CHEST PA LATERAL 2 VIEWS Schedule Routine, Read Routine (OP Routine) 02/09/2025 12:25 PM CDT Status post cardiac surgery DEVICE CHECK - REMOTE Routine 02/08/2025 6:24 AM CDT EGFR Routine 01/18/2025 1:13 PM CDT DIFFERENTIAL [...] 4:25 PM CDT Complete heart block (HCC) MA AN 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 Routine 12/31/2024 12:52 PM [...] VIDEO IP Routine 12/25/2024 3:27 PM CDT WATCH DIAL MAKER EVALUATE AND TREAT VIDEOFLUOROSCOPIC SWALLOW STUDY Routine [...] BLOOD CULTURE Routine 12/21/2024 11:20 AM CDT WATCH DIAL MAKER EVALUATE AND TREAT FIBEROPTIC ENDOSCOPIC SWALLOW Routine [...] CHEMISTRIES, ARTERIAL Routine 12/14/2024 2:44 AM CDT MA INSJ NON-TUNNELED CENTRAL VENOUS CATH AGE 5 YR/> Routine 12/14/2024 1:52 AM CDT Bradycardia MA INSJ NON-TUNNELED CENTRAL VENOUS CATH AGE 5 YR/> Routine 12/14/2024 1:45 AM CDT Bradycardia MA ARTL CATHJ/CANNULJ MNTR/TRANSFUSION SPX PRQ Routine 12/14/2024 [...] CDT EEG Routine 12/13/2024 2:04 PM CDT WATCH DIAL MAKER EVALUATE AND TREAT Routine 1:42 PM CDT [...] HEPARIN/ACT CPB Routine 12/09/2024 9:35 AM CDT MA AN 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 Routine 12/09/2024 8:47 AM [...] PREPARE RBC Timed 12/09/2024 5:42 AM CDT from Last 3 Months Results * XR Chest Pa Lateral 2 Views (02/09/2025 12:25 PM CDT) Anatomical Region Laterality Modality Body, Chest N/A Computed Radiogr aphy 02/09/2025 12:3 8 PM CDT Impressions 02/09/2025 12:38 PM CDT Comparison is made to 01/01/2025. The pacemaker device and replaced aortic valve are unchanged in position. Have removed the left central venous catheter in the interval. Mediastinal plates are unchanged in position. There is no focal pneumonic consolidation, effusion, or pneumothorax. The heart size is stable. Electronically signed by: Osvaldo Ace M.D. Narrative 02/09/2025 12:38 PM CDT EXAMINATION: 2 view chest radiograph Procedure Note Osvaldo Ace MD - 02/09/2025 EXAMINATION: 2 view chest radiograph IMPRESSION: Comparison is made to 01/01/2025. The pacemaker device and replaced aortic valve are unchanged in position. Have removed the left central venous catheter in the interval. Mediastinal plates are unchanged in position. There is no focal pneumonic consolidation, effusion, or pneumothorax. The heart size is stable. Electronically signed by: Osvaldo Ace M.D. Naz Gordillo NP IMG XR PROCEDURES Final Result * DEVICE CHECK - REMOTE (02/08/2025 6:24 AM CDT) Anatomical Region Laterality Modality Other 02/08/2025 6:24 AM CDT Narrative 02/11/2025 11:02 AM CDT Interpretation Summary: Battery and Leads (BL) Normal parameters noted on battery and lead(s) --- 15.1 yrs remaining longevity. Lead impedance, sensing, and threshold trends stable and appropriate. No short V-V intervals. Presenting Rhythm (MA) Atrial Sensing-Ventricular Sensing (-VS) --- /VS (SR) 70s/80s with APCs. Arrhythmic events (AE) No new arrhythmic events in monitoring period --- Since 01/13/25: No AHR or VHR episodes. Transmission Information (TI) Device Summary Report Follow Up (FU) Patient's primary treating physician will be apprised of findings Procedure Note Shola Cha MD - 02/11/2025 Interpretation Summary: Battery and Leads (BL) Normal parameters noted on battery and lead(s) --- 15.1 yrs remaininglongevity. Lead impedance, sensing, and threshold trends stable andappropriate. No short V-V intervals. Presenting Rhythm (MA) Atrial Sensing-Ventricular Sensing (-VS) --- /VS (SR) 70s/80s withAPCs. Arrhythmic events (AE) No new arrhythmic events in monitoring period --- Since 01/13/25: No AHRor VHR episodes. Transmission Information (TI) Device Summary Report Follow Up (FU) Patient's primary treating physician will be apprised of findings us Shola Cha MD CV CARDIAC SERVI SIMRAN PROCEDURES Final Result * Glucose, random (Outreach) (01/18/2025 1:13 PM [...] 1:13 PM CDT 01/18/2025 2:54 PM CDT us Pacheco Mejia DO LAB BLOOD ORDERABLES Final Result [facility] [place] [address] * eGFR (01/18/2025 1:13 PM CDT) Pathologist [facility] eGFR 73 >=60 mL/min/1. 73 m2 Comment: [...] Mejia DO LAB BLOOD ORDERABLES Final Result [facility] One [facility] [place] [address] * (ABNORMAL) Differential, auto (01/18/2025 1:13 PM CDT) Pathologist [facility] Neutrophil abs 6.51(H) 1.50 - 6.50 K/cumm Imm gran abs 0.04 0.00 - 0.10 K/cumm [facility] Lymphocyte abs 0.92 0.80 - 3.30 K/cumm [facility] Monocyte abs 0.48 0.20 - 0.80 K/cumm [facility] Eosinophil abs 0.33 0.00 - 0.50 K/cumm [facility] Basophil abs 0.08 0.00 - 0.10 K/cumm [facility] Neutrophil pct 77.9 % [facility] Comment: Interpretive Data Percent cell count reference ranges are not reported, since discordance with absolute values may lead to misinterpretation of CBC data. Current Interpretive Data was last revised on 2017. Imm gran pct 0.5 % [facility] Comment: Interpretive Data Percent cell count reference ranges are not reported, since discordance with absolute values may lead to misinterpretation of CBC data. Current Interpretive Data was last revised on 2017. Lymphocyte pct 11.0 % [facility] Comment: Interpretive Data Percent cell count reference ranges are not reported, since discordance with absolute values may lead to misinterpretation of CBC data. Current Interpretive Data was last revised on 2017. Monocyte pct 5.7 % [facility] Comment: Interpretive Data Percent cell count reference ranges are not reported, since discordance with absolute values may lead to misinterpretation of CBC data. Current Interpretive Data was last revised on 2017. Eosinophil pct 3.9 % [facility] Comment: Interpretive Data Percent cell count reference ranges are not reported, since discordance with absolute values may lead to misinterpretation of CBC data. Current Interpretive Data was last revised on 2017. Basophil pct 1.0 % [facility] Comment: Interpretive Data Percent cell count reference ranges are not reported, since discordance with absolute values may lead to misinterpretation of CBC data. Current Interpretive Data was last revised on 2017. Blood 01/18/2025 1:13 PM CDT 01/18/2025 2:54 PM CDT Pacheco Mejia DO LAB BLOOD ORDERABLES Final Result [facility] Department of Laboratories [place], [place] [id number] * Basic metabolic panel without glucose (01/18/2025 1:13 PM CDT) Sodium 139 135 - 145 mmol/L Potassium, pl 4.6 3.3 - 4.9 mmol/L [facility] Chloride 105 97 - 110 mmol/L [facility] CO2 25 22 - 32 mmol/L [facility] Anion gap 9 2 - 15 mmol/L [facility] BUN 22 6 - 25 mg/dL [facility] Creatinine 0.89 0.60 - 1.10 mg/dL [facility] Calcium 9.3 8.5 - 10.3 mg/dL [facility] Blood 01/18/2025 1:13 PM CDT 01/18/2025 2:54 PM CDT Pacheco Mejia DO LAB BLOOD ORDERABLES Final Result [facility] Department [place] [address] * (ABNORMAL) CBC with auto differential (01/18/2025 1:13 PM CDT) Pathologist [facility] WBC 8.36 3.80 - 9.90 K/cumm Hgb 11.2(L) 11.9 - 15.5 g/dL [facility] Hct 35.2(L) 35.6 - 45.5 % [facility] Plt 267 150 - 400 K/cumm [facility] MPV 9.0(L) 9.1 - 12.3 fL [facility] RBC 4.04 3.90 - 5.20 M/cumm [facility] MCV 87.1 81.3 - 96.4 fL [facility] MCH 27.7 27.1 - 33.3 pg [facility] MCHC 31.8(L) 32.3 - 35.7 g/dL [facility] RDW CV 15.8(H) 11.1 - 14.9 % [facility] RDW SD 50.8(H) 35.7 - 48.1 fL [facility] NRBC abs 0.00 0.00 - 0.01 K/cumm [facility] Blood 01/18/2025 1:13 PM CDT 01/18/2025 2:54 PM CDT Pacheco B. Yablonsky DO LAB BLOOD ORDERABLES Final Result Performing Organization Address [facility] Co de Phone Number [facility] [place] [address] * (ABNORMAL) CS GLUCOSE (01/12/2025 10:04 AM CDT) Glucose 57(L) 70 - 199 mg/dL [facility] Comment: Interpretive Data Fasting glucose >/= 126 [...] was last revised 2022. Testing performed by: [facility], [address] [place] [address], [place]., [address] Blood 01/12/2025 10:0 4 AM CDT 01/12/2025 1:57 PM CDT us Notinfile Unknown LAB BLOOD ORDERABLES Final Res ult Performing Organization Address [facility] Co de Phone Number [facility] Department [place] [address] * (ABNORMAL) eGFR (01/12/2025 10:04 AM CDT) eGFR 53(L) >=60 mL/min/1. 73 m2 [facility] Comment: Interpretive Data Reference [...] was last reviewed 2021. Testing performed by: [facility], [address] [place]., [address] Blood 01/12/2025 10:0 4 AM CDT 01/12/2025 2:11 PM CDT us Notinfile Unknown LAB BLOOD ORDERABLES Final Res ult [facility] Department [place] [address] * (ABNORMAL) Differential, auto (01/12/2025 10:04 AM CDT) Neutrophil abs 9.30(H) 1.50 - 6.50 K/cumm [facility] Comment:Testing performed by : [facility], [address] [place] [address]., [address] Imm gran abs 0.05 0.00 - 0.10 K/cumm [facility] Comment:Testing performed by : [facility], [address] [place] [address]., [address] Lymphocyte abs 1.08 0.80 - 3.30 K/cumm [facility] Comment:Testing performed by : [facility], [address] [place] [address]., [address] Monocyte abs 0.93(H) 0.20 - 0.80 K/cumm [facility] Comment:Testing performed by : [facility], [address] [place]., [address] Eosinophil abs 0.69(H) 0.00 - 0.50 K/cumm [facility] Comment:Testing performed by : [facility], [address] [place]., [address] Basophil abs 0.12(H) 0.00 - 0.10 K/cumm [facility] Comment:Testing performed by : [facility], [address] [place]., [address] Neutrophil pct 76.4 % [facility] Comment: Interpretive Data Percent cell count reference ranges are not reported, since discordance with absolute values may lead to misinterpretation of CBC data. Current Interpretive Data was last revised on 2017. Testing performed by: [facility], [address] [place]., [address] Imm gran pct 0.4 % [facility] Comment: Interpretive Data Percent cell count reference ranges are not reported, since discordance with absolute values may lead to misinterpretation of CBC data. Current Interpretive Data was last revised on 2017. Testing performed by: [facility], [address] [place] [address] Lymphocyte pct 8.9 % [facility] Comment: Interpretive Data Percent cell count reference ranges are not reported, since discordance with absolute values may lead to misinterpretation of CBC data. Current Interpretive Data was last revised on 2017. Testing performed by: [facility], [address] [place]., [address] Monocyte pct 7.6 % [facility] Comment: Interpretive Data Percent cell count reference ranges are not reported, since discordance with absolute values may lead to misinterpretation of CBC data. Current Interpretive Data was last revised on 2017. Testing performed by: [facility], [address] [place] [address]., [address] Eosinophil pct 5.7 % [facility] Comment: Interpretive Data Percent cell count reference ranges are not reported, since discordance with absolute values may lead to misinterpretation of CBC data. Current Interpretive Data was last revised on 2017. Testing performed by: [facility], [address] [place] [address] Basophil pct 1.0 % [facility] Comment: Interpretive Data Percent cell count reference ranges are not reported, since discordance with absolute values may lead to misinterpretation of CBC data. Current Interpretive Data was last revised on 2017. Testing performed by: [facility], [address] [place] [address] Blood 01/12/2025 10:0 4 AM CDT 01/12/2025 1:57 PM CDT us Notinfile Unknown LAB BLOOD ORDERABLES Final Res ult [facility] Department [place] [address] * (ABNORMAL) Comprehensive metabolic panel, without glucose (Outreach) (01/12/2025 10:04 AM CDT) Sodium 142 135 - 145 mmol/L [facility] Comment:Testing performed by : [facility], [address] [place]., [address] Potassium, pl 4.3 3.3 - 4.9 mmol/L [facility] Comment:Testing performed by : [facility], [facility], [address] Chloride 102 97 - 110 mmol/L [facility] Comment:Testing performed by : [facility], [address] [place] [address] CO2 27 22 - 32 mmol/L [facility] Comment:Testing performed by : [facility], [address] [place]., [address] Anion gap 13 2 - 15 mmol/L [facility] Comment:Testing performed by : [facility], [address] [facility], [address] BUN 24 6 - 25 mg/dL [facility] Comment:Testing performed by : [facility], [address] [facility], [address] Creatinine 1.16(H) 0.60 - 1.10 mg/dL [facility] Comment:Testing performed by : [facility], [address] [facility], [address] Calcium 10.1 8.5 - 10.3 mg/dL [facility] Comment:Testing performed by : [facility], [address] [facility], [address] Protein, pl 7.3 6.5 - 8.5 g/dL [facility] Comment:Testing performed by : [facility], [address] [facility], [address] Albumin 4.6 3.5 - 5.0 g/dL [facility] Comment:Testing performed by : [facility], [address] [facility], [address] Bilirubin, total 0.5 0.1 - 1.2 mg/dL [facility] Comment:Testing performed by : [facility], [address] [facility], [address] Alk phos 86 40 - 130 Units/L [facility] Comment:Testing performed by : [facility], [address] [facility], [address] AST 28 10 - 45 Units/L [facility] Comment:Testing performed by : [facility], [address] [place] [address], [address] ALT 25 7 - 45 Units/L [facility] Comment:Testing performed by : [facility], [address] [place] [address], [address] Blood 01/12/2025 10:0 4 AM CDT 01/12/2025 1:57 PM CDT us Notinfile Unknown LAB BLOOD ORDERABLES Final Res ult [facility] Department [place] [address] * (ABNORMAL) CBC with auto differential (01/12/2025 10:04 AM CDT) WBC 12.17(H) 3.80 - 9.90 K/cumm [facility] Comment:Testing performed by : [facility], [address] [facility], [address] Hgb 11.7(L) 11.9 - 15.5 g/dL [facility] Comment:Testing performed by : [facility], [address] [facility], [address] Hct 38.1 35.6 - 45.5 % [facility] Comment:Testing performed by : [facility], [address] [facility], [address] Plt 345 150 - 400 K/cumm [facility] Comment:Testing performed by : [facility], [address] [facility], [address] MPV 9.0(L) 9.1 - 12.3 fL [facility] Comment:Testing performed by : [facility], [address] [facility], [address] RBC 4.29 3.90 - 5.20 M/cumm [facility] Comment:Testing performed by : [facility], [address] [facility], [address] MCV 88.8 81.3 - 96.4 fL [facility] Comment:Testing performed by : [facility], [address] [facility], [address] MCH 27.3 27.1 - 33.3 pg [facility] Comment:Testing performed by : [facility], [address] [facility], [address] MCHC 30.7(L) 32.3 - 35.7 g/dL [facility] Comment:Testing performed by : [facility], [address] [facility], [address] RDW CV 15.9(H) 11.1 - 14.9 % [facility] Comment:Testing performed by : [facility], [address] [place]., [address] RDW SD 51.7(H) 35.7 - 48.1 fL [facility] Comment:Testing performed by : [facility], [address] [place]., [address] NRBC abs 0.00 0.00 - 0.01 K/cumm [facility] Comment:Testing performed by : [facility], [address] [place]., [address] Blood 01/12/2025 10:0 4 AM CDT 01/12/2025 1:57 PM CDT us Notinfile Unknown LAB BLOOD ORDERABLES Final Res ult [facility] Department [place] [address] * (ABNORMAL) CS GLUCOSE (01/08/2025 12:20 PM CDT) [facility] Glucose 68(L) 70 - 199 mg/dL [facility] Comment: Interpretive Data Fasting glucose >/= 126 [...] was last revised 2022. Testing performed by: [facility], [address] [place]., [address] Blood 01/08/2025 12:2 0 PM CDT 01/08/2025 1:36 PM CDT us Notinfile Unknown LAB BLOOD ORDERABLES Final Res ult [facility] Department [place] [address] * (ABNORMAL) eGFR (01/08/2025 12:20 PM CDT) eGFR 59(L) >=60 mL/min/1. 73 m2 [facility] Comment: Interpretive Data Reference Interval Normal [...] was last reviewed 2021. Testing performed by: [facility], [address] [place] [address], [place]., [address] Blood 01/08/2025 12:2 0 PM CDT 01/08/2025 2:02 PM CDT us Notinfile Unknown LAB BLOOD ORDERABLES Final Res ult [facility] Department [place] [address] * (ABNORMAL) Differential, auto (01/08/2025 12:20 PM CDT) Neutrophil abs 6.42 1.50 - 6.50 K/cumm [facility] Comment:Testing performed by : [facility] [address] [place] [address] Imm gran abs 0.03 0.00 - 0.10 K/cumm [facility] Comment:Testing performed by : [facility], [address] [place]., [address] Lymphocyte abs 1.12 0.80 - 3.30 K/cumm [facility] Comment:Testing performed by : [facility], [address] [place] [address] Monocyte abs 0.59 0.20 - 0.80 K/cumm [facility] Comment:Testing performed by : [facility], [address] [place]., [address] Eosinophil abs 0.60(H) 0.00 - 0.50 K/cumm [facility] Comment:Testing performed by : [facility], [address] [place] [address] Basophil abs 0.09 0.00 - 0.10 K/cumm [facility] Comment:Testing performed by : [facility], [address] [place] [address] Neutrophil pct 72.5 % [facility] Comment: Interpretive Data Percent cell count reference ranges are not reported, since discordance with absolute values may lead to misinterpretation of CBC data. Current Interpretive Data was last revised on 2017. Testing performed by: [facility], [address] [place]., [address] Imm gran pct 0.3 % [facility] Comment: Interpretive Data Percent cell count reference ranges are not reported, since discordance with absolute values may lead to misinterpretation of CBC data. Current Interpretive Data was last revised on 2017. Testing performed by: [facility], [address] [place] [address] Lymphocyte pct 12.7 % [facility] Comment: Interpretive Data Percent cell count reference ranges are not reported, since discordance with absolute values may lead to misinterpretation of CBC data. Current Interpretive Data was last revised on 2017. Testing performed by: [facility], [address] [place] [address] Monocyte pct 6.7 % [facility] Comment: Interpretive Data Percent cell count reference ranges are not reported, since discordance with absolute values may lead to misinterpretation of CBC data. Current Interpretive Data was last revised on 2017. Testing performed by: [facility], [address] [place] [address] Eosinophil pct 6.8 % [facility] Comment: Interpretive Data Percent cell count reference ranges are not reported, since discordance with absolute values may lead to misinterpretation of CBC data. Current Interpretive Data was last revised on 2017. Testing performed by: [facility], [address] [place] [address] Basophil pct 1.0 % [facility] Comment: Interpretive Data Percent cell count reference ranges are not reported, since discordance with absolute values may lead to misinterpretation of CBC data. Current Interpretive Data was last revised on 2017. Testing performed by: [facility], [address] [place] [address]., [address] Blood 01/08/2025 12:2 0 PM CDT 01/08/2025 1:36 PM CDT us Notinfile Unknown LAB BLOOD ORDERABLES Final Res ult [facility] Department [place] [address] * Comprehensive metabolic panel, without glucose (Outreach) (01/08/2025 12:20 PM CDT) Sodium 141 135 - 145 mmol/L [facility] Comment:Testing performed by : [facility], [address] [place]., [address] Potassium, pl 4.3 3.3 - 4.9 mmol/L [facility] Comment:Testing performed by : [facility], [address] [facility], [address] Chloride 102 97 - 110 mmol/L [facility] Comment:Testing performed by : [facility], [address] [facility], [address] CO2 26 22 - 32 mmol/L [facility] Comment:Testing performed by : [facility], [address] [facility], [address] Anion gap 13 2 - 15 mmol/L [facility] Comment:Testing performed by : [facility], [address] [facility], [address] BUN 22 6 - 25 mg/dL [facility] Comment:Testing performed by : [facility], [address] [facility], [address] Creatinine 1.06 0.60 - 1.10 mg/dL [facility] Comment:Testing performed by : [facility], [address] [facility], [address] Calcium 9.6 8.5 - 10.3 mg/dL [facility] Comment:Testing performed by : [facility], [address] [facility], [address] Protein, pl 6.5 6.5 - 8.5 g/dL [facility] Comment:Testing performed by : [facility], [address] [facility], [address] Albumin 4.0 3.5 - 5.0 g/dL [facility] Comment:Testing performed by : [facility], [address] [facility], [address] Bilirubin, total 0.4 0.1 - 1.2 mg/dL [facility] Comment:Testing performed by : [facility], [address] [facility], [address] Alk phos 82 40 - 130 Units/L [facility] Comment:Testing performed by : [facility], [address] [facility], [address] AST 25 10 - 45 Units/L [facility] Comment:Testing performed by : [facility], [address] [place] [address] ALT 34 7 - 45 Units/L [facility] Comment:Testing performed by : [facility], [address] [facility], [address] Blood 01/08/2025 12:2 0 PM CDT 01/08/2025 1:36 PM CDT us Notinfile Unknown LAB BLOOD ORDERABLES Final Res ult [facility] Department [place] [address] * (ABNORMAL) CBC with auto differential (01/08/2025 12:20 PM CDT) WBC 8.85 3.80 - 9.90 K/cumm [facility] Comment:Testing performed by : [facility], [address] [place] [address] Hgb 9.3(L) 11.9 - 15.5 g/dL [facility] Comment:Testing performed by : [facility], [address] [place] [address] Hct 30.7(L) 35.6 - 45.5 % [facility] Comment:Testing performed by : [facility], [address] [place]., [address] Plt 255 150 - 400 K/cumm [facility] Comment:Testing performed by : [facility], [address] [place] [address]., [address] MPV 8.9(L) 9.1 - 12.3 fL [facility] Comment:Testing performed by : [facility], [address] [place] [address] RBC 3.44(L) 3.90 - 5.20 M/cumm [facility] Comment:Testing performed by : [facility], [address] [place]., [address] MCV 89.2 81.3 - 96.4 fL [facility] Comment:Testing performed by : [facility], [address] [facility], [address] MCH 27.0(L) 27.1 - 33.3 pg [facility] Comment:Testing performed by : [facility], [address] [facility], [address] MCHC 30.3(L) 32.3 - 35.7 g/dL [facility] Comment:Testing performed by : [facility], [address] [facility], [address] RDW CV 15.5(H) 11.1 - 14.9 % [facility] Comment:Testing performed by : [facility], [address] [facility], [address] RDW SD 49.9(H) 35.7 - 48.1 fL [facility] Comment:Testing performed by : [facility], [address] [facility], [address] NRBC abs 0.00 0.00 - 0.01 K/cumm [facility] Comment:Testing performed by : [facility], [address] [place] [address], [address] Blood 01/08/2025 12:2 0 PM CDT 01/08/2025 1:36 PM CDT us Notinfile Unknown LAB BLOOD ORDERABLES Final Res ult [facility] Department [place] [address] * CTA Chest Abdomen Pelvis (01/07/2025 3:43 [...] yrs. Magnet rate 85 bpm Presenting Rhythm (MA) Atrial Sensing-Ventricular Sensing (-VS) --- Underlying rhythm: NSR 70s Arrhythmic events (AE) No new arrhythmic events in monitoring period Anticoagulation (AC) Patient prescribed Apixaban (Eliquis) Patient on anticoagulant therapy Procedure Note Chan Reece MD - 01/08/2025 Interpretation Summary: Battery and Leads (BL) Normal parameters noted on battery and lead(s) --- battery longevityestimate: 14.3 yrs. Magnet rate 85 bpm Presenting Rhythm (MA) Atrial Sensing-Ventricular Sensing (-VS) --- Underlying rhythm: [id number] Arrhythmic events (AE) No new arrhythmic events in monitoring period Anticoagulation (AC) Patient prescribed Apixaban (Eliquis) Patient on anticoagulant therapy us Shala Oliva NP CV [employer]ARDI[employer] SERVICES PROCEDUR ES Final Result * CS GLUCOSE (01/05/2025 10:33 AM CDT) Glucose 92 70 - 199 mg/dL [facility] Comment: Interpretive Data Fasting glucose >/= 126 [...] was last revised 2022. Testing performed by: [facility], 1 [facility], [place]., [address] Blood 01/05/2025 10:3 3 AM CDT 01/05/2025 2:29 PM CDT us Notinfile Unknown LAB BLOOD ORDERABLES Final Res ult [facility] Department [place] [address] * (ABNORMAL) eGFR (01/05/2025 10:33 AM CDT) eGFR 59(L) >=60 mL/min/1. 73 m2 [facility] Comment: [...] was last reviewed 2021. Testing performed by: [facility], [address] [place] [address] Blood 01/05/2025 10:3 3 AM CDT 01/05/2025 2:46 PM CDT us Notinfile Unknown LAB BLOOD ORDERABLES Final Res ult [facility] Department [place] [address] * (ABNORMAL) Differential, auto (01/05/2025 10:33 AM CDT) Neutrophil abs 4.51 1.50 - 6.50 K/cumm [facility] Comment:Testing performed by : [facility], [address] [place] [address] Imm gran abs 0.03 0.00 - 0.10 K/cumm [facility] Comment:Testing performed by : [facility], [address] [place] [address]., [address] Lymphocyte abs 1.13 0.80 - 3.30 K/cumm [facility] Comment:Testing performed by : [facility], [address] [place] [address] Monocyte abs 0.60 0.20 - 0.80 K/cumm [facility] Comment:Testing performed by : [facility], [address] [place] [address]., [address] Eosinophil abs 0.53(H) 0.00 - 0.50 K/cumm [facility] Comment:Testing performed by : [facility], [address] [place]., [address] Basophil abs 0.08 0.00 - 0.10 K/cumm [facility] Comment:Testing performed by : [facility], [address] [place] [address] Neutrophil pct 65.6 % [facility] Comment: Interpretive Data Percent cell count reference ranges are not reported, since discordance with absolute values may lead to misinterpretation of CBC data. Current Interpretive Data was last revised on 2017. Testing performed by: [facility], [address] [place] [address] Imm gran pct 0.4 % [facility] Comment: Interpretive Data Percent cell count reference ranges are not reported, since discordance with absolute values may lead to misinterpretation of CBC data. Current Interpretive Data was last revised on 2017. Testing performed by: [facility], [address] [place] [address] Lymphocyte pct 16.4 % [facility] Comment: Interpretive Data Percent cell count reference ranges are not reported, since discordance with absolute values may lead to misinterpretation of CBC data. Current Interpretive Data was last revised on 2017. Testing performed by: [facility], [address] [place] [address]., [address] Monocyte pct 8.7 % [facility] Comment: Interpretive Data Percent cell count reference ranges are not reported, since discordance with absolute values may lead to misinterpretation of CBC data. Current Interpretive Data was last revised on 2017. Testing performed by: [facility], [address] [place] [address]., [address] Eosinophil pct 7.7 % [facility] Comment: Interpretive Data Percent cell count reference ranges are not reported, since discordance with absolute values may lead to misinterpretation of CBC data. Current Interpretive Data was last revised on 2017. Testing performed by: [facility], [address] [place] [address] Basophil pct 1.2 % [facility] Comment: Interpretive Data Percent cell count reference ranges are not reported, since discordance with absolute values may lead to misinterpretation of CBC data. Current Interpretive Data was last revised on 2017. Testing performed by: [facility], [address] [place] [address] Blood 01/05/2025 10:3 3 AM CDT 01/05/2025 2:29 PM CDT us Notinfile Unknown LAB BLOOD ORDERABLES Final Res ult [facility] Department [place] [address] * (ABNORMAL) Comprehensive metabolic panel, without glucose (Outreach) (01/05/2025 10:33 AM CDT) Sodium 142 135 - 145 mmol/L [facility] Comment:Testing performed by : [facility], [address] [place] [address] Potassium, pl 4.2 3.3 - 4.9 mmol/L [facility] Comment:Testing performed by : [facility], [address] [place] [address] Chloride 105 97 - 110 mmol/L [facility] Comment:Testing performed by : [facility], [address] [place] [address] CO2 27 22 - 32 mmol/L [facility] Comment:Testing performed by : [facility], [address] [facility], [address] Anion gap 10 2 - 15 mmol/L [facility] Comment:Testing performed by : [facility], [address] [facility], [address] BUN 19 6 - 25 mg/dL [facility] Comment:Testing performed by : [facility], [address] [facility], [address] Creatinine 1.07 0.60 - 1.10 mg/dL [facility] Comment:Testing performed by : [facility], [address] [facility], [address] Calcium 9.4 8.5 - 10.3 mg/dL [facility] Comment:Testing performed by : [facility], [address] [facility], [address] Protein, pl 6.3(L) 6.5 - 8.5 g/dL [facility] Comment:Testing performed by : [facility], [address] [facility], [address] Albumin 4.0 3.5 - 5.0 g/dL [facility] Comment:Testing performed by : [facility], [address] [facility], [address] Bilirubin, total 0.5 0.1 - 1.2 mg/dL [facility] Comment:Testing performed by : [facility], [address] [facility], [address] Alk phos 95 40 - 130 Units/L [facility] Comment:Testing performed by : [facility], [address] [facility], [address] AST 29 10 - 45 Units/L [facility] Comment:Testing performed by : [facility], [address] [facility], [address] ALT 50(H) 7 - 45 Units/L [facility] Comment:Testing performed by : [facility], [address] [place] [address], [address] Blood 01/05/2025 10:3 3 AM CDT 01/05/2025 2:29 PM CDT us Notinfile Unknown LAB BLOOD ORDERABLES Final Res ult [facility] Department [place] [address] * (ABNORMAL) CBC with auto differential (01/05/2025 10:33 AM CDT) WBC 6.88 3.80 - 9.90 K/cumm [facility] Comment:Testing performed by : [facility], [address] [place] [address], [address] Hgb 8.8(L) 11.9 - 15.5 g/dL [facility] Comment:Testing performed by : [facility], [address] [place] [address], [address] Hct 28.6(L) 35.6 - 45.5 % [facility] Comment:Testing performed by : [facility], [address] [place] [address], [address] Plt 208 150 - 400 K/cumm [facility] Comment:Testing performed by : [facility], [address] [place] [address], [address] MPV 9.4 9.1 - 12.3 fL [facility] Comment:Testing performed by : [facility], [address] [place] [address], [address] RBC 3.22(L) 3.90 - 5.20 M/cumm [facility] Comment:Testing performed by : [facility], [address] [place] [address], [address] MCV 88.8 81.3 - 96.4 fL [facility] Comment:Testing performed by : [facility], [address] [place] [address], [address] MCH 27.3 27.1 - 33.3 pg [facility] Comment:Testing performed by : [facility], [address] [place] [address], [address] MCHC 30.8(L) 32.3 - 35.7 g/dL [facility] Comment:Testing performed by : [facility], [address] [place] [address], [address] RDW CV 14.7 11.1 - 14.9 % [facility] [facility] Comment:Testing performed by : [facility], [address] [place]., [address] RDW SD 47.3 35.7 - 48.1 fL [facility] Comment:Testing performed by : [facility], [address] [place]., [address] NRBC abs 0.00 0.00 - 0.01 K/cumm [facility] Comment:Testing performed by : [facility], [address] [facility], [address] Blood 01/05/2025 10:3 3 AM CDT 01/05/2025 2:29 PM CDT us Notinfile Unknown LAB BLOOD ORDERABLES Final Res ult Performing Organization Address City/[facility]/ZIP Co de Phone Number [facility] Department [place] [address] * Vitamin D 25 hydroxy (01/05/2025 10:33 AM CDT) Vitamin D 25-OH 41 30 - 80 ng/mL [facility] Comment:Testing performed by : [facility], [address] [facility], [address] Blood 01/05/2025 10:3 3 AM CDT 01/05/2025 2:29 PM CDT us Notinfile Unknown LAB BLOOD ORDERABLES Final Res ult Performing Organization Address City/State/[facility] Co de Phone Number [facility] [place] [address] * XR Chest Pa Lateral 2 Views [...] Bai NP LAB BLOOD ORDERABLES Final Result [facility] Department [place] [address] * (ABNORMAL) CBC without differential (12/31/2024 10:26 PM CDT) WBC 9.64 3.80 - 9.90 K/cumm Hgb 8.4(L) 11.9 - 15.5 g/dL [facility] Hct 27.0(L) 35.6 - 45.5 % [facility] Plt 211 150 - 400 K/cumm [facility] MPV 9.1 9.1 - 12.3 fL [facility] RBC 2.97(L) 3.90 - 5.20 M/cumm [facility] MCV 90.9 81.3 - 96.4 fL [facility] MCH 28.3 27.1 - 33.3 pg [facility] MCHC 31.1(L) 32.3 - 35.7 g/dL [facility] RDW CV 15.0(H) 11.1 - 14.9 % [facility] RDW SD 49.3(H) 35.7 - 48.1 fL [facility] NRBC abs 0.00 0.00 - 0.01 K/cumm [facility] Blood 12/31/2024 10:2 6 PM CDT 12/31/2024 10:44 PM CDT us Xena Bai HAT LINING PASTER LAB BLOOD ORDERABLES Final Result [facility] Department [place] [address] * (ABNORMAL) Comprehensive metabolic panel (12/31/2024 10:26 PM CDT) Sodium 141 135 - 145 mmol/L Potassium, pl 4.4 3.3 - 4.9 mmol/L [facility] Chloride 109 97 - 110 mmol/L [facility] CO2 25 22 - 32 mmol/L [facility] Anion gap 7 2 - 15 mmol/L [facility] BUN 15 6 - 25 mg/dL [facility] Creatinine 1.00 0.60 - 1.10 mg/dL [facility] Glucose 109 70 - 199 mg/dL [facility] Comment: Interpretive Data Fasting [...] 2022. Calcium 8.6 8.5 - 10.3 mg/dL [facility] Bilirubin, total 0.5 0.1 - 1.2 mg/dL [facility] Protein, pl 6.2(L) 6.5 - 8.5 g/dL [facility] Albumin 3.7 3.5 - 5.0 g/dL [facility] Alk phos 94 40 - 130 Units/L [facility] ALT 70(H) 7 - 45 Units/L [facility] AST 31 10 - 45 Units/L [facility] Blood 12/31/2024 10:2 6 PM CDT 12/31/2024 10:43 PM CDT us Xena Bai HAT LINING PASTER LAB BLOOD ORDERABLES Final Result ALEX BJYonatan [facility] Department [place] [address] * X-ray chest 1 view (12/31/2024 4:59 [...] recorded. Images were taken in MATSON and CZECH views to ensure appropriate lead placement. The [...] and device programming: - RA Lead (#[id number]): Sensing 1.2 mV, Pacing threshold 0.75 V at 0.4 ms, Imp 1026 Ohm - RV Lead (#[id number]): Sensing 7.0 mV, Pacing threshold 0.5 V at 0.4 ms, Imp 703 Ohm - Device: AfterShiplaurence Thomas DR [id number] MRI Surescan pacemaker (#[id number]), programmed AAI/DDD 60-130 Conclusions: 1. Successful placement [...] days post-discharge Shola Cha MD Clinical Cardiac Scene And Lighting Design Lecturer Ronel Arellano NP CV ELECTROPHYSIOLOGY P ROCS Final Result * MA AN 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 (12/31/2024 12:52 PM CDT) Narrative Lloyd Dowd CRNA - 12/31/2024 12:52 PM CDT Lloyd Dowd CRNA 12/31/2024 12:52 PM Peripheral IV Catheter Patient location: OR Staff: Placed by: FOOD TRADES ASSISTANTS: Kalie Madrigal CRNA Preprocedure prep: Prep solution: [...] CDT 12/31/2024 12:07 AM CDT Xena Bai HAT LINING PASTER LAB BLOOD ORDERABLES Final Result Performing Organization Address [facility] Co de Phone Number [facility] Department [place] [address] * (ABNORMAL) aPTT (12/30/2024 10:52 PM CDT) Pathologist [facility] aPTT 70(H) 28 - 38 sec Comment: Interpretive Data Heparin therapeutic range: 66.0 - 100.0 seconds. Range based on correlation with therapeutic heparin activity range of 0.3 - 0.7 Units/mL. Current interpretive data was last revised on 2023. Blood 12/30/2024 10:5 2 PM CDT 12/31/2024 12:14 AM CDT Narrative [facility] - 12/31/2024 12:24 AM CDT STAT PTT [...] drawn peripherally (not from CVC). See Shrestha HAT LINING PASTER LAB BLOOD ORDERABLES Final Result Performing Organization Address City/[facility]/ZIP Co de Phone Number [facility] Department [place] [address] * (ABNORMAL) CBC without differential (12/30/2024 10:52 PM CDT) Pathologist [facility] WBC 11.75(H) 3.80 - 9.90 K/cumm Hgb 8.8(L) 11.9 - 15.5 g/dL [facility] Hct 28.4(L) 35.6 - 45.5 % [facility] Plt 243 150 - 400 K/cumm [facility] MPV 9.3 9.1 - 12.3 fL [facility] RBC 3.08(L) 3.90 - 5.20 M/cumm [facility] MCV 92.2 81.3 - 96.4 fL [facility] MCH 28.6 27.1 - 33.3 pg [facility] MCHC 31.0(L) 32.3 - 35.7 g/dL [facility] RDW CV 15.0(H) 11.1 - 14.9 % [facility] RDW SD 49.7(H) 35.7 - 48.1 fL [facility] NRBC abs 0.00 0.00 - 0.01 K/cumm [facility] Blood 12/30/2024 10:5 2 PM CDT 12/31/2024 12:08 AM CDT Xena Bai HAT LINING PASTER LAB BLOOD ORDERABLES Final Result Performing Organization Address City/[facility] Co de Phone Number [facility] [place] [address] * Type and screen (12/30/2024 10:52 PM CDT) ABO Rh B Negative Sarah, indirect Negative [facility] Blood 12/30/2024 10:5 2 PM CDT 12/31/2024 12:10 AM CDT Narrative [facility] - 12/31/2024 1:00 AM CDT Has the patient had Daratumumab or Isatuximab in the past 6 months?->Unknown Xena Bai HAT LINING PASTER LAB BLOOD BANK TEST ORDERA BLES Final Result Performing Organization Address City/[facility]/ZIP Co de Phone Number [facility] [place] [address] * (ABNORMAL) Comprehensive metabolic panel (12/30/2024 10:52 PM CDT) Pathologist [facility] Sodium 137 135 - 145 mmol/L Potassium, pl 4.4 3.3 - 4.9 mmol/L [facility] Chloride 103 97 - 110 mmol/L [facility] CO2 24 22 - 32 mmol/L [facility] Anion gap 10 2 - 15 mmol/L [facility] BUN 21 6 - 25 mg/dL [facility] Creatinine 1.06 0.60 - 1.10 mg/dL [facility] Glucose 118 70 - 199 mg/dL [facility] Comment: Interpretive Data Fasting [...] 2022. Calcium 8.8 8.5 - 10.3 mg/dL [facility] Bilirubin, total 0.5 0.1 - 1.2 mg/dL [facility] Protein, pl 6.8 6.5 - 8.5 g/dL [facility] Albumin 4.0 3.5 - 5.0 g/dL [facility] Alk phos 114 40 - 130 Units/L [facility] ALT 80(H) 7 - 45 Units/L [facility] AST 37 10 - 45 Units/L [facility] Blood 12/30/2024 10:5 2 PM CDT 12/31/2024 12:07 AM CDT us Xena Bai NP LAB BLOOD ORDERABLES Final Result [facility] Department [place] [address] * (ABNORMAL) aPTT (12/30/2024 5:13 PM CDT) aPTT 67(H) 28 - 38 sec Comment: Interpretive Data Heparin therapeutic range: 66.0 - 100.0 seconds. Range based on correlation with therapeutic heparin activity range of 0.3 - 0.7 Units/mL. Current interpretive data was last revised on 2023. Blood 12/30/2024 5:13 PM CDT 12/30/2024 5:31 PM CDT Narrative ALEX MCKEON - 12/30/2024 5:41 PM CDT STAT PTT [...] peripherally (not from CVC). us See Shrestha NP LAB BLOOD ORDERABLES Final Result [facility] Department [place] [address] * eGFR (12/30/2024 10:54 AM CDT) Pathologist [facility] eGFR 67 >=60 mL/min/1. 73 m2 Comment: [...] CDT 12/30/2024 11:18 AM CDT Xena Bai HAT LINING PASTER LAB BLOOD ORDERABLES Final Result Performing Organization Address [facility] de Phone Number [facility] [place] [address] * (ABNORMAL) aPTT (12/30/2024 10:54 AM CDT) aPTT 27(L) 28 - 38 sec Comment: Interpretive Data Heparin therapeutic range: 66.0 - 100.0 seconds. Range based on correlation with therapeutic heparin activity range of 0.3 - 0.7 Units/mL. Current interpretive data was last revised on 2023. Blood 12/30/2024 10:5 4 AM CDT 12/30/2024 11:17 AM CDT Narrative [facility] - 12/30/2024 11:48 AM CDT Baseline prior to heparin initiation See Shrestha HAT LINING PASTER LAB BLOOD ORDERABLES Final Result Performing Organization Address [facility] de Phone Number [facility] [place] [address] * (ABNORMAL) Protime-INR (12/30/2024 10:54 AM CDT) PT 14.1(H) 9.7 - 13.0 sec INR 1.30(H) 0.90 - 1.20 [facility] Comment: Interpretive data Oral anticoagulant therapeutic ranges: Venous thromboembolism prophylaxis or treatment: 2.0-3.0 CARDIOLOGY Standard range: 2.0-3.0 High-intensity range: 2.5-3.5 Refer to indication-specific guidelines for appropriate target ranges for prosthetic heart valve replacement. Current interpretive data was last revised on 2019. Blood 12/30/2024 10:5 4 AM CDT 12/30/2024 11:17 AM CDT Narrative [facility] - 12/30/2024 11:48 AM CDT Baseline prior to heparin initiation See Shrestha NP LAB BLOOD ORDERABLES Final Result [facility] Department [place] [address] * (ABNORMAL) CBC without differential (12/30/2024 10:54 AM CDT) WBC 9.63 3.80 - 9.90 K/cumm Hgb 8.4(L) 11.9 - 15.5 g/dL [facility] Hct 27.2(L) 35.6 - 45.5 % [facility] Plt 284 150 - 400 K/cumm [facility] MPV 9.1 9.1 - 12.3 fL [facility] RBC 2.96(L) 3.90 - 5.20 M/cumm [facility] MCV 91.9 81.3 - 96.4 fL [facility] MCH 28.4 27.1 - 33.3 pg [facility] MCHC 30.9(L) 32.3 - 35.7 g/dL [facility] RDW CV 15.3(H) 11.1 - 14.9 % [facility] RDW SD 51.1(H) 35.7 - 48.1 fL [facility] NRBC abs 0.00 0.00 - 0.01 K/cumm [facility] Blood 12/30/2024 10:5 4 AM CDT 12/30/2024 11:18 AM CDT [facility] - 12/30/2024 11:28 AM CDT Baseline prior to heparin initiation See E. Shrestha HAT LINING PASTER LAB BLOOD ORDERABLES Final Result [facility] Department [place] [address] * (ABNORMAL) Comprehensive metabolic panel (12/30/2024 10:54 AM CDT) Sodium 139 135 - 145 mmol/L Potassium, pl 4.5 3.3 - 4.9 mmol/L [facility] Chloride 104 97 - 110 mmol/L [facility] CO2 26 22 - 32 mmol/L [facility] Anion gap 9 2 - 15 mmol/L [facility] BUN 19 6 - 25 mg/dL [facility] Creatinine 0.96 0.60 - 1.10 mg/dL [facility] Glucose 98 70 - 199 mg/dL [facility] Comment: Interpretive Data Fasting [...] 2022. Calcium 9.0 8.5 - 10.3 mg/dL [facility] Bilirubin, total 0.6 0.1 - 1.2 mg/dL [facility] Protein, pl 6.4(L) 6.5 - 8.5 g/dL [facility] Albumin 3.9 3.5 - 5.0 g/dL [facility] Alk phos 112 40 - 130 Units/L [facility] ALT 92(H) 7 - 45 Units/L [facility] AST 36 10 - 45 Units/L [facility] Blood 12/30/2024 10:5 4 AM CDT 12/30/2024 11:18 AM CDT Xena Bai NP LAB BLOOD ORDERABLES Final Result [facility] Department [place] [address] * IR Central Line Placement > 5 [...] was obtained. Prior to beginning the procedure, Allen Protocol was used to confirm the patient's [...] was obtained. Prior to beginning the procedure, Allen Protocol was used to confirm the patient's [...] signed by: Stevie So M.D. See Shrestha NP IMG IR PROCEDURES Final Re sult * [...] Bai NP LAB BLOOD ORDERABLES Final Result [facility] Department of Laboratories [place], [place] [id number] * (ABNORMAL) CBC without differential (12/28/2024 8:30 PM CDT) WBC 11.82(H) 3.80 - 9.90 K/cumm Hgb 9.0(L) 11.9 - 15.5 g/dL [facility] Hct 28.7(L) 35.6 - 45.5 % [facility] Plt 299 150 - 400 K/cumm [facility] MPV 9.4 9.1 - 12.3 fL [facility] RBC 3.07(L) 3.90 - 5.20 M/cumm [facility] MCV 93.5 81.3 - 96.4 fL [facility] MCH 29.3 27.1 - 33.3 pg [facility] MCHC 31.4(L) 32.3 - 35.7 g/dL [facility] RDW CV 15.5(H) 11.1 - 14.9 % [facility] RDW SD 52.2(H) 35.7 - 48.1 fL [facility] NRBC abs 0.00 0.00 - 0.01 K/cumm [facility] Blood 12/28/2024 8:30 PM CDT 12/28/2024 10:10 PM CDT Xena Bai HAT LINING PASTER LAB BLOOD ORDERABLES Final Result [facility] Department [place] [address] * (ABNORMAL) Comprehensive metabolic panel (12/28/2024 8:30 PM CDT) Sodium 140 135 - 145 mmol/L Potassium, pl 4.5 3.3 - 4.9 mmol/L [facility] Chloride 105 97 - 110 mmol/L [facility] CO2 25 22 - 32 mmol/L [facility] Anion gap 10 2 - 15 mmol/L [facility] BUN 24 6 - 25 mg/dL [facility] Creatinine 1.09 0.60 - 1.10 mg/dL [facility] Glucose 99 70 - 199 mg/dL [facility] Comment: Interpretive Data Fasting [...] 2022. Calcium 9.1 8.5 - 10.3 mg/dL [facility] Bilirubin, total 0.5 0.1 - 1.2 mg/dL [facility] Protein, pl 6.5 6.5 - 8.5 g/dL [facility] Albumin 3.9 3.5 - 5.0 g/dL [facility] Alk phos 130 40 - 130 Units/L [facility] ALT 130(H) 7 - 45 Units/L [facility] AST 56(H) 10 - 45 Units/L [facility] Blood 12/28/2024 8:30 PM CDT 12/28/2024 10:10 PM CDT us Xena Bai NP LAB BLOOD ORDERABLES Final Result [facility] [place] [address] * (ABNORMAL) eGFR (12/27/2024 8:34 PM CDT) eGFR 55(L) >=60 mL/min/1. 73 m2 Comment: [...] CDT 12/27/2024 9:37 PM CDT Xena Bai HAT LINING PASTER LAB BLOOD ORDERABLES Final Result Performing Organization Address [facility] Co de Phone Number [facility] [place] [address] * (ABNORMAL) CBC without differential (12/27/2024 8:34 PM CDT) WBC 11.68(H) 3.80 - 9.90 K/cumm Hgb 9.0(L) 11.9 - 15.5 g/dL [facility] Hct 29.4(L) 35.6 - 45.5 % [facility] Plt 287 150 - 400 K/cumm [facility] MPV 9.5 9.1 - 12.3 fL [facility] RBC 3.11(L) 3.90 - 5.20 M/cumm [facility] MCV 94.5 81.3 - 96.4 fL [facility] MCH 28.9 27.1 - 33.3 pg [facility] MCHC 30.6(L) 32.3 - 35.7 g/dL [facility] RDW CV 15.9(H) 11.1 - 14.9 % [facility] RDW SD 54.4(H) 35.7 - 48.1 fL [facility] NRBC abs 0.00 0.00 - 0.01 K/cumm [facility] Blood 12/27/2024 8:34 PM CDT 12/27/2024 9:38 PM CDT us Xena Bai HAT LINING PASTER LAB BLOOD ORDERABLES Final Result Performing Organization Address [facility]/ZIP Co de Phone Number [facility] [place] [address] * Type and screen (12/27/2024 8:34 PM CDT) Pathologist [facility] Sarah, indirect Negative ABO Rh B Negative [facility] Blood 12/27/2024 8:34 PM CDT 12/27/2024 9:42 PM CDT Narrative [facility] - 12/27/2024 10:58 PM CDT Has the patient had Daratumumab or Isatuximab in the past 6 months?->Unknown Xena Bai HAT LINING PASTER LAB BLOOD BANK TEST ORDERA BLES Final Result [facility] [place] [address] * (ABNORMAL) Comprehensive metabolic panel (12/27/2024 8:34 PM CDT) Pathologist [facility] Sodium 139 135 - 145 mmol/L Potassium, pl 4.1 3.3 - 4.9 mmol/L [facility] Chloride 103 97 - 110 mmol/L [facility] CO2 24 22 - 32 mmol/L [facility] Anion gap 12 2 - 15 mmol/L [facility] BUN 24 6 - 25 mg/dL [facility] Creatinine 1.13(H) 0.60 - 1.10 mg/dL [facility] Glucose 115 70 - 199 mg/dL [facility] Comment: Interpretive Data Fasting [...] 2022. Calcium 8.7 8.5 - 10.3 mg/dL [facility] Bilirubin, total 0.6 0.1 - 1.2 mg/dL [facility] Protein, pl 6.5 6.5 - 8.5 g/dL [facility] Albumin 3.9 3.5 - 5.0 g/dL [facility] Alk phos 95 40 - 130 Units/L [facility] ALT 136(H) 7 - 45 Units/L [facility] AST 42 10 - 45 Units/L [facility] Blood 12/27/2024 8:34 PM CDT 12/27/2024 9:37 PM CDT Xena Bai HAT LINING PASTER LAB BLOOD ORDERABLES Final Result Performing Organization Address [facility]/ZIP Co de Phone Number [facility] [place] [address] * eGFR (12/26/2024 1:25 PM CDT) eGFR [...] BLOOD ORDERABLES Final Result Performing Organization Address [facility]/ZIP Co de Phone Number [facility] Department [place] [employer] [place] [address] * Blood culture Blood (12/26/2024 1:25 PM [...] performance characteristics have been verified by the [facility]. For questions about this culture, contact the Microbiology Laboratory at [phone]. Interpretive data was last revised on 24. See Shrestha NP LAB MICROBIOLOGY - GENERAL ORDERABLES Final Result ALEX [facility] [place] [address] * (ABNORMAL) CBC without differential (12/26/2024 1:25 PM CDT) WBC 12.65(H) 3.80 - 9.90 K/cumm Hgb 9.0(L) 11.9 - 15.5 g/dL [facility] Hct 28.9(L) 35.6 - 45.5 % [facility] Plt 306 150 - 400 K/cumm [facility] MPV 9.6 9.1 - 12.3 fL [facility] RBC 3.11(L) 3.90 - 5.20 M/cumm [facility] MCV 92.9 81.3 - 96.4 fL [facility] MCH 28.9 27.1 - 33.3 pg [facility] MCHC 31.1(L) 32.3 - 35.7 g/dL [facility] RDW CV 15.9(H) 11.1 - 14.9 % [facility] RDW SD 51.8(H) 35.7 - 48.1 fL [facility] NRBC abs 0.00 0.00 - 0.01 K/cumm [facility] Blood 12/26/2024 1:25 PM CDT 12/26/2024 2:28 PM CDT Xena Bai NP LAB BLOOD ORDERABLES Final Result [facility] [place] [address] * (ABNORMAL) CBC without differential (12/26/2024 1:25 PM CDT) WBC 12.21(H) 3.80 - 9.90 K/cumm Hgb 9.0(L) 11.9 - 15.5 g/dL [facility] Hct 28.5(L) 35.6 - 45.5 % [facility] Plt 307 150 - 400 K/cumm [facility] MPV 9.5 9.1 - 12.3 fL [facility] RBC 3.07(L) 3.90 - 5.20 M/cumm [facility] MCV 92.8 81.3 - 96.4 fL [facility] MCH 29.3 27.1 - 33.3 pg [facility] MCHC 31.6(L) 32.3 - 35.7 g/dL [facility] RDW CV 15.9(H) 11.1 - 14.9 % [facility] RDW SD 52.4(H) 35.7 - 48.1 fL [facility] NRBC abs 0.00 0.00 - 0.01 K/cumm [facility] Blood 12/26/2024 1:25 PM CDT 12/26/2024 2:28 PM CDT Kika Alessandrawesly Simpson DNP LAB BLOOD ORDERABLES Fi nal Result Performing Organization Address [facility] Co de Phone Number [facility] [place] [address] * Type and screen (12/26/2024 1:25 PM CDT) Pathologist [facility] Sarah, indirect Negative ABO Rh B Negative [facility] Blood 12/26/2024 1:25 PM CDT 12/26/2024 2:26 PM CDT Narrative [facility] [facility] - 12/26/2024 3:25 PM CDT Has the patient had Daratumumab or Isatuximab in the past 6 months?->Unknown us Xena Bai HAT LINING PASTER LAB BLOOD BANK TEST ORDERA BLES Final Result Performing Organization Address [facility] de Phone Number [facility] [place] [address] * (ABNORMAL) Comprehensive metabolic panel (12/26/2024 1:25 PM CDT) Pathologist [facility] Sodium 139 135 - 145 mmol/L Potassium, pl 3.7 3.3 - 4.9 mmol/L [facility] Chloride 102 97 - 110 mmol/L [facility] CO2 25 22 - 32 mmol/L [facility] Anion gap 12 2 - 15 mmol/L [facility] BUN 23 6 - 25 mg/dL [facility] Creatinine 1.01 0.60 - 1.10 mg/dL [facility] Glucose 115 70 - 199 mg/dL [facility] Comment: Interpretive Data Fasting [...] 2022. Calcium 9.1 8.5 - 10.3 mg/dL [facility] Bilirubin, total 0.7 0.1 - 1.2 mg/dL [facility] Protein, pl 6.5 6.5 - 8.5 g/dL [facility] Albumin 3.7 3.5 - 5.0 g/dL [facility] Alk phos 93 40 - 130 Units/L [facility] ALT 169(H) 7 - 45 Units/L [facility] AST 50(H) 10 - 45 Units/L [facility] Blood 12/26/2024 1:25 PM CDT 12/26/2024 2:28 PM CDT us Xena Bia NP LAB BLOOD ORDERABLES Final Result [facility] [place] [address] * XR Chest 1 View (12/26/2024 5:21 [...] Electronically signed by: Sharlene Claros M.D. us Kika Aparicio Calvin [place] IMG XR PROCEDURES Final Result * XR [...] spur. Electronically signed by: Bernabe Lowry M.D. us See Shrestha HAT LINING PASTER IMG XR PROCEDURES Final Re sult * [...] by: Boris Casas M.D., Ph.D Kika Simpson [place] [facility] FLUOROSCOPY PROCEDU RES Final Result * WATCH DIAL MAKER Evaluate and Treat (VFSS) (12/25/2024 3:07 PM CDT) Narrative Misty Fields, NICO - 12/25/2024 3:07 PM CDT Misty Fields, NICO 12/25/2024 5:26 PM Speech-Language Pathology: Videofluoroscopic Study of Swallow (VFSS/MBS) HPI/PMH *Update 12/19: intubated 12/15-12/17. Passed Micro swallow screen 12/19 but later coughing w/liquid Regular diet, thin liquids per WATCH DIAL MAKER eval 12/13. Episodes of seizures since then. [...] pt report General Information Adi Flowers 12/25/24 WATCH DIAL MAKER Received On: 12/25/24 General Observations: Pt seated [...] hygiene prior to po Specialty Instructions: alert WATCH DIAL MAKER if pt frequently coughing with thin liquids [...] at 90 degrees. Consistencies Administered: Thin liquids, [place] thickened liquids, Purees, Solids Administered consistencies contain [...] despite effort (x1, otherwise PAS of 6) [place] Thickened Liquids: Laryngeal Penetration: Present Aspiration Present: Yes Timing: During Amount: Trace Response to aspiration: None Successful Modifications : Repeat swallow Unsuccessful Modifications: Cough, Repeat swallow Penetration Aspiration Scale-Black [place]: 6-Material enters the airway, passes below the [...] treatment goals and details, if indicated. Plan WATCH DIAL MAKER Frequency of Services during current admission: Follow-up visit only WATCH DIAL MAKER Recommendation (Add'l Services): No further WATCH DIAL MAKER indicated (likely at d/c) Next Visit Plan: treatment/therapy Additional Referrals: consider ENT consult at pt's request Discharge Summary Statement If this is the last swallow therapy visit, this serves as the discharge summary. us Kika Simpson DNP WATCH DIAL MAKER ORDERABLES Final R esult * POCT glucose (12/24/2024 7:42 AM CDT) Glucose, POC 110 70 - 199 mg/dL Blood 12/24/2024 7:42 AM CDT 12/24/2024 7:42 AM CDT us Indiana Mortensen MD LAB POCT ORDERABLES - DEVICE Final Result [facility] Department [place] [address] * XR Chest 1 View (12/23/2024 10:44 [...] plan with the patient's team and other medical/solutions consultant staff. This time was in addition [...] 12/23/2024 12:37 AM CDT us Marian Rodrigues HAT LINING PASTER LAB BLOOD ORDERABLES Brenda l Result Performing Organization Address City/[facility]/ZIP Co de Phone Number [facility] Department [place] [address] * (ABNORMAL) CBC without differential (12/23/2024 12:10 AM CDT) WBC 22.13(H) 3.80 - 9.90 K/cumm Hgb 9.6(L) 11.9 - 15.5 g/dL [facility] Hct 31.2(L) 35.6 - 45.5 % [facility] Plt 289 150 - 400 K/cumm [facility] MPV 9.8 9.1 - 12.3 fL [facility] RBC 3.35(L) 3.90 - 5.20 M/cumm [facility] MCV 93.1 81.3 - 96.4 fL [facility] MCH 28.7 27.1 - 33.3 pg [facility] MCHC 30.8(L) 32.3 - 35.7 g/dL [facility] RDW CV 15.5(H) 11.1 - 14.9 % [facility] RDW SD 52.0(H) 35.7 - 48.1 fL [facility] NRBC abs 0.05(H) 0.00 - 0.01 K/cumm [facility] Blood 12/23/2024 12:1 0 AM CDT 12/23/2024 12:49 AM CDT us Kika Simpson DNP LAB BLOOD ORDERABLES Fi nal Result Performing Organization Address City/[facility]/ZIP Co de Phone Number [facility] Department [place] [address] * Phosphorus (12/23/2024 12:10 AM CDT) Phosphorus, pl 3.4 2.3 - 4.5 mg/dL Blood 12/23/2024 12:1 0 AM CDT 12/23/2024 12:37 AM CDT [facility] LAB BLOOD ORDERABLES Fi nal Result [facility] [place] [address] * Magnesium (12/23/2024 12:10 AM CDT) Pathologist [facility] Magnesium 2.2 1.4 - 2.5 mg/dL Blood 12/23/2024 12:1 0 AM CDT 12/23/2024 12:37 AM CDT [facility] LAB BLOOD ORDERABLES Fi nal Result Performing Organization Address [facility] de Phone Number [facility] Department [place] [address] * (ABNORMAL) Comprehensive metabolic panel (12/23/2024 12:10 AM CDT) [facility] Sodium 141 135 - 145 mmol/L Potassium, pl 3.8 3.3 - 4.9 mmol/L [facility] Chloride 98 97 - 110 mmol/L [facility] CO2 31 22 - 32 mmol/L [facility] Anion gap 12 2 - 15 mmol/L [facility] BUN 36(H) 6 - 25 mg/dL [facility] Creatinine 1.18(H) 0.60 - 1.10 mg/dL [facility] Glucose 106 70 - 199 mg/dL [facility] Comment: Interpretive Data Fasting [...] 2022. Calcium 8.8 8.5 - 10.3 mg/dL [facility] Bilirubin, total 0.7 0.1 - 1.2 mg/dL [facility] Protein, pl 6.4(L) 6.5 - 8.5 g/dL [facility] Albumin 3.7 3.5 - 5.0 g/dL [facility] Alk phos 91 40 - 130 Units/L [facility] ALT 391(H) 7 - 45 Units/L [facility] AST 70(H) 10 - 45 Units/L [facility] Blood 12/23/2024 12:1 0 AM CDT 12/23/2024 12:37 AM CDT us Kika Simpson DNP LAB BLOOD ORDERABLES Fi nal Result Performing Organization Address [facility]/ZIP Co de Phone Number [facility] Department [place] [address] * POCT glucose (12/22/2024 4:05 PM CDT) Glucose, POC 134 70 - 199 mg/dL Blood 12/22/2024 4:05 PM CDT 12/22/2024 4:05 PM CDT us Indiana Mortensen MD LAB POCT ORDERABLES - DEVICE Final Result Performing Organization Address City/[facility] Co de Phone Number [facility] Department [place] [address] * US VEIN DUPLEX LOWER EXTREMITY RIGHT LIMITED, UNILATERAL (12/22/2024 3:35 PM CDT) Anatomical Region Laterality Modality Vascular Right Ultrasound 12/22/2024 10:4 1 AM CDT Narrative 12/23/2024 11:17 AM CDT [facility] - Department of Vascular Surgery, Vascular Laboratory [address] [place] [address] Lower Extremity Venous Ultrasound Report Patient Name: ADI FLOWERS : 1960 (64y 1m) Study Date: 12/22/2024 10:41:36 AM Gender: F Tech: Location: [id number] Ref Provider: RUTHANN COX Quality: Adequate Order [...] pain, swelling, and redness - FINDINGS: Performing Pecan Gatherer: Maria Esther Sam RVT. Right: Duplex scan [...] above. Electronically Signed By: Ravinder Buitrago MD [facility] [phone] 12/23/2024 10:09:07 AM CDT Procedure Note Ravinder Buitrago MD - 12/23/2024 [facility] - Department of Vascular Surgery,Vascular Laboratory [address] [place] [address] Lower Extremity Venous Ultrasound Report Patient Name: ADI FLOWERS : 1960 (64y 1m) Study Date: 12/22/2024 10:41:36 AM Gender: F Tech: Location: [id number] Ref Provider: RUTHANN COX Quality: Adequate Order [...] increasedpain, swelling, and redness - FINDINGS: Performing Pecan Gatherer: Maria Esther Sam RVT. Right: Duplex scan [...] above. Electronically Signed By: Ravinder Buitrago MD [facility] [phone] 12/23/2024 10:09:07 AM CDT us Ruthann Cox NP IMG US PROCEDURES Fin al Result * POCT glucose (12/22/2024 1:23 PM CDT) Glucose, POC 128 70 - 199 mg/dL Blood 12/22/2024 1:23 PM CDT 12/22/2024 1:23 PM CDT Indiana Mortensen MD LAB POCT ORDERABLES - DEVICE Final Result Performing Organization Address [facility] Co de Phone Number [facility] Department [place] [address] * Potassium, whole blood (12/22/2024 1:18 PM CDT) Pathologist [facility] Potassium, bld 3.4 3.3 - 4.9 mmol/L Blood 12/22/2024 1:18 PM CDT 12/22/2024 1:39 PM CDT Chapito Rodriguez NP LAB BLOOD ORDERABLES Final Re sult Performing Organization Address [facility] de Phone Number [facility] [place] [address] * XR Chest 1 View (12/22/2024 9:36 [...] Electronically signed by: Sunny Child M.D. us Chapito Rodriguez NP IMG XR PROCEDURES Final Resul t * POCT glucose (12/22/2024 7:34 AM CDT) Glucose, POC 127 70 - 199 mg/dL Blood 12/22/2024 7:34 AM CDT 12/22/2024 7:34 AM CDT Indiana Mortensen MD LAB POCT ORDERABLES - DEVICE Final Result [facility] [place] [address] * Critical Care (12/22/2024 6:40 AM CDT) [...] plan with the patient's team and other medical/solutions consultant staff. This time was in addition [...] in the medical record us Chapito Rodriguez HAT LINING PASTER IN CLINIC/BEDSIDE ORDERABLES Final Result * Infection Prevention Justice auris PCR, surveillance Axilla/Groin (12/22/2024 2:11 AM CDT) Justice auris DNA Not Detected Not Detected [facility] Comment: Interpretive Data Testing performed by [facility] using the Stacie shirin [employer] Justice auris assay. This assay detects DNA from Justice auris using Real-Time PCR. This assay is laboratory developed and is not cleared by the [facility] Food and Drug Administration. The performance characteristics have been verified by the [facility]. Axilla/Groin 12/22/2024 2:11 AM CDT 12/22/2024 4:08 AM CDT Narrative ALEX [facility] - 12/22/2024 1:00 PM CDT Order placed by [facility] due to ring surveillance. us Instant Order Generic Provider LAB MICROBIOLOGY - GENERAL ORDERABLES Final Result ALEX [facility] [place] [address] [facility] * (ABNORMAL) eGFR (12/22/2024 2:11 AM [...] 12/22/2024 3:48 AM CDT us Marian Rodrigues NP LAB BLOOD ORDERABLES Brenda wharton Result [facility] Department [place] [address] * (ABNORMAL) CBC without differential (12/22/2024 2:11 AM CDT) WBC 23.59(H) 3.80 - 9.90 K/cumm Hgb 8.8(L) 11.9 - 15.5 g/dL [facility] Hct 27.0(L) 35.6 - 45.5 % [facility] Plt 265 150 - 400 K/cumm [facility] MPV 9.7 9.1 - 12.3 fL [facility] RBC 2.98(L) 3.90 - 5.20 M/cumm [facility] MCV 90.6 81.3 - 96.4 fL [facility] MCH 29.5 27.1 - 33.3 pg [facility] MCHC 32.6 32.3 - 35.7 g/dL [facility] RDW CV 15.8(H) 11.1 - 14.9 % [facility] RDW SD 50.0(H) 35.7 - 48.1 fL [facility] NRBC abs 0.06(H) 0.00 - 0.01 K/cumm [facility] Blood 12/22/2024 2:11 AM CDT 12/22/2024 3:49 AM CDT [facility] LAB BLOOD ORDERABLES Fi nal Result Performing Organization Address [facility] Co de Phone Number [facility] [place] [address] * Phosphorus (12/22/2024 2:11 AM CDT) [facility] Phosphorus, pl 4.3 2.3 - 4.5 mg/dL Blood 12/22/2024 2:11 AM CDT 12/22/2024 3:48 AM CDT [facility] LAB BLOOD ORDERABLES Fi nal Result Performing Organization Address [facility] Co de Phone Number [facility] [place] [address] * Magnesium (12/22/2024 2:11 AM CDT) [facility] Magnesium 1.9 1.4 - 2.5 mg/dL Blood 12/22/2024 2:11 AM CDT 12/22/2024 3:48 AM CDT [facility] LAB BLOOD ORDERABLES Fi nal Result Performing Organization Address [facility] [place] [address] * (ABNORMAL) Comprehensive metabolic panel (12/22/2024 2:11 AM CDT) [facility] Sodium 143 135 - 145 mmol/L Potassium, pl 3.4 3.3 - 4.9 mmol/L [facility] Chloride 99 97 - 110 mmol/L [facility] CO2 29 22 - 32 mmol/L [facility] Anion gap 15 2 - 15 mmol/L [facility] BUN 32(H) 6 - 25 mg/dL [facility] Creatinine 1.10 0.60 - 1.10 mg/dL [facility] Glucose 114 70 - 199 mg/dL [facility] Comment: Interpretive Data Fasting [...] 2022. Calcium 8.5 8.5 - 10.3 mg/dL [facility] Bilirubin, total 0.8 0.1 - 1.2 mg/dL [facility] Protein, pl 5.9(L) 6.5 - 8.5 g/dL [facility] Albumin 3.3(L) 3.5 - 5.0 g/dL [facility] Alk phos 81 40 - 130 Units/L [facility] ALT 470(H) 7 - 45 Units/L [facility] AST 70(H) 10 - 45 Units/L [facility] Blood 12/22/2024 2:11 AM CDT 12/22/2024 3:48 AM CDT us Kika Simpson DNP LAB BLOOD ORDERABLES Fi nal Result [facility] [place] [address] * POCT glucose (12/21/2024 9:14 PM CDT) [facility] Glucose, POC 118 70 - 199 mg/dL Blood 12/21/2024 9:14 PM CDT 12/21/2024 9:14 PM CDT us Indiana Mortensen MD LAB POCT ORDERABLES - DEVICE Final Result Performing Organization Address [facility]/ZIP Co de Phone Number [facility] Department [place] [address] * Critical Care (12/21/2024 7:43 PM CDT) [...] plan with the ICU team and other medical/solutions consultant staff, making frequent assessments and decisions [...] - DEVICE Final Result Performing Organization Address City/[facility]/ZIP Co de Phone Number [facility] Department [place] [address] * (ABNORMAL) Urinalysis reflex to microscopic (12/21/2024 11:20 AM CDT) Color, ur Straw Yellow Clarity, ur Clear Clear [facility] Specific gravity, ur 1.009 1.003 - 1.030 [facility] pH, urine 6.5 [facility] Comment: Interpretive Data U rine pH is affected by diet, medications, systemic acid-base disturbances, and renal tubular function. pH may affect urinary stone formation. For example, urine pH below 6.0 may help reduce the tendency for calcium phosphate stones and pH greater than 6.0 may reduce the tendency for uric acid stone formation. Source: [facility] [employer] Current Interpretive Data was last revised on 2017 Protein, ur ql Negative Negative [facility] Glucose, ur ql Negative Negative [facility] Ketones, ur Negative Negative [facility] Bilirubin, ur Negative Negative [facility] Blood, ur Trace(A) Negative [facility] Urobilinogen, ur <2.0 <2.0 mg/dL [facility] Nitrite, ur Negative Negative [facility] Leukocyte esterase, ur Trace(A) Negative [facility] UA reflex comment Reflex to microscopic UA will be performed. [facility] Urine 12/21/2024 11:2 0 AM CDT 12/21/2024 11:30 AM CDT Kika Simpson DNP LAB URINE ORDERABLES Fi nal Result [facility] Department [place] [address] * Blood culture Blood (12/21/2024 11:20 AM CDT) Report Final Report: No growth Blood 12/21/2024 11:2 0 AM CDT 12/21/2024 10:59 PM CDT Narrative ALEX [facility] - 12/26/2024 7:00 AM CDT Collection->Peripheral [...] performance characteristics have been verified by the [facility]. For questions about this culture, contact the Microbiology Laboratory at [phone]. Interpretive data was last revised on 24. us Kika Simpson [place] LAB MICROBIOLOGY - GENE RAL ORDERABLES Final Result [facility] Department [place] [address] * Blood culture Blood (12/21/2024 11:20 AM CDT) Report Final Report: No growth Blood 12/21/2024 11:2 0 AM CDT 12/21/2024 10:47 PM CDT Narrative ALEX [facility] - 12/26/2024 7:00 AM CDT Collection->Peripheral [...] performance characteristics have been verified by the [facility]. For questions about this culture, contact the Microbiology Laboratory at [phone]. Interpretive data was last revised on 24. Kika Simpson [place] LAB MICROBIOLOGY - GENE RAL ORDERABLES Final Result Performing Organization Address City/[facility] Co de Phone Number [facility] Department [place] [address] * (ABNORMAL) Urinalysis, microscopic only (12/21/2024 11:20 AM CDT) WBC, ur 0-5 0 - 5 /HPF RBC, ur 6-10(A) 0 - 2 /HPF [facility] Bacteria, ur Trace(A) [facility] Mucous, ur Present(A) [facility] Urine 12/21/2024 11:2 0 AM CDT 12/21/2024 11:30 AM CDT [facility] URINE ORDERABLES Fi nal Result Performing Organization Address City/[facility] Co de Phone Number [facility] Department [place] [address] * WATCH DIAL MAKER Evaluate and Treat (FEES) (12/21/2024 11:19 AM CDT) Narrative [facility] - 12/21/2024 11:19 AM CDT Yasmin Dunaway, WATCH DIAL MAKER 12/21/2024 1:59 PM Speech-Language Pathology: Flexible Endoscopic [...] coronary disease. Regular diet, thin liquids per WATCH DIAL MAKER eval 12/13. Episodes of seizures since then. [...] Diet: Regular General Information Adi Flowers 12/21/24 WATCH DIAL MAKER Received On: 12/21/24 General Observations: Pt seen [...] Diet Solids Recommendation: Regular Diet Liquids Recommendations: [place] thick Recommended Form of Medications: As tolerated [...] Edema: Commissure, posterior Consistencies Administered: Thin liquids, [place] thick liquids, Honey thick liquids, Purees, Solids Thin Liquids: Laryngeal Penetration: Present Aspiration Present: (unable to rule out) Penetration Aspiration Scale-Thin: 3-Material enters the airway, remains above the vocal folds and is not ejected from the airway ; versus 8 Micro Scale-Vallecular Residue-Thin Liquids: Mild Micro Scale-Pyriform Sinus Residue-Thin Liquids: Mild [place] Thickened Liquids: Laryngeal Penetration: None Aspiration Present: No Penetration Aspiration Scale-[place]: 1-Material does not enter airway Micro Scale-Vallecular Residue-[place] Thickened Liquids: Mild Micro Scale-Pyriform Sinus Residue-[place] Thickened Liquids: Trace Honey Thickened Liquids: Laryngeal Penetration: None Aspiration Present: No Penetration Aspiration Scale-Honey: 1-Material does not enter airway Micro Scale-Vallecular Residue-Honey Thickened Liquids: Mild Micro Scale-Pyriform Sinus Residue-Honey Thickened Liquids: Trace Purees: Laryngeal Penetration: None Aspiration Present: No Penetration Aspiration Scale-Puree: 1-Material does not enter airway Micro Scale-Vallecular Residue-Puree: Mild Micro Scale-Pyriform Sinus Residue-Puree: Mild Solids: Laryngeal Penetration: None Aspiration Present: No Penetration Aspiration Scale-Solids: 1-Material does not enter airway Delilah Scale-Vallecular Residue-Solids: Mild Micro Scale-Pyriform Sinus Residue-Solids: None Dysphagia Outcome and Severity Scale: Dysphagia Outcomes and Severity Scale: 5 Mild dysphagia Levels 1 & 2 on the JAQUELIN indicate need for nonoral nutrition. Treatment Treatment was not provided this date. Please reference care plan for treatment goals and details, if indicated. Plan WATCH DIAL MAKER Frequency of Services during current admission: 2-3x/wk WATCH DIAL MAKER Recommendation (Add'l Services): Defer at this time Next Visit Plan:treatment/therapy Additional Referrals: none Discharge Summary Statement If this is the last swallow therapy visit, this serves as the discharge summary. Chapito Anna Rodriguez HAT LINING PASTER WATCH DIAL MAKER ORDERABLES Final Result [facility] * COVID-19 Coronavirus RNA Nasopharyngeal (12/21/2024 10:28 AM CDT) COVID-19 RNA Negative Negative [facility] Nasopharyngeal 12/21/2024 10 :28 AM CDT 12/21/2024 11:39 AM CDT Narrative [facility] - 12/21/2024 12:13 PM CDT Is the patient experiencing any symptoms consistent with COVID (eg. Fever, cough, shortness of breath)?->No What is the reason for testing?->Screening prior to urgent surgery, procedure, delivery, transplant, immune suppressive therapy Interpretive data Testing performed by [facility] ([phone]). This test is performed using the [employer] Xpert Xpress CoV-2 plus assay. This is a real-time RT-PCR test intended for the qualitative detection of nucleic acid from the SARS-CoV-2. This assay has been cleared by the [place] Food and Drug administration. The performance characteristics have been verified by the [facility]. Results must be considered in the clinical context, and a negative result does not rule out infection. Interpretive data last revised 2024. Interpretive data Testing performed by [facility] ([phone]). This test is performed using the [employer] Xpert Xpress CoV-2 plus assay. This is a real-time RT-PCR test intended for the qualitative detection of nucleic acid from the SARS-CoV-2. This assay has been cleared by the [place] Food and Drug administration. The performance characteristics have been verified by the [facility]. Results must be considered in the clinical context, and a negative result does not rule out infection. Interpretive data last revised 2024. Kika Simpson [facility] MICROBIOLOGY - [facility] ORDERABLES Final Result [facility] Department [place] [address] [facility] * (ABNORMAL) Differential, auto (12/21/2024 10:28 AM CDT) Neutrophil abs 20.93(H) 1.50 - 6.50 K/cumm Imm gran abs 0.95(H) 0.00 - 0.10 K/cumm [facility] Lymphocyte abs 1.22 0.80 - 3.30 K/cumm [facility] Monocyte abs 1.89(H) 0.20 - 0.80 K/cumm [facility] Eosinophil abs 0.57(H) 0.00 - 0.50 K/cumm [facility] Basophil abs 0.12(H) 0.00 - 0.10 K/cumm [facility] Neutrophil pct 81.4 % [facility] Comment: Interpretive Data Percent cell count reference ranges are not reported, since discordance with absolute values may lead to misinterpretation of CBC data. Current Interpretive Data was last revised on 2017. Imm gran pct 3.7 % [facility] Comment: Interpretive Data Percent cell count reference ranges are not reported, since discordance with absolute values may lead to misinterpretation of CBC data. Current Interpretive Data was last revised on 2017. Lymphocyte pct 4.8 % [facility] Comment: Interpretive Data Percent cell count reference ranges are not reported, since discordance with absolute values may lead to misinterpretation of CBC data. Current Interpretive Data was last revised on 2017. Monocyte pct 7.4 % [facility] Comment: Interpretive Data Percent cell count reference ranges are not reported, since discordance with absolute values may lead to misinterpretation of CBC data. Current Interpretive Data was last revised on 2017. Eosinophil pct 2.2 % [facility] Comment: Interpretive Data Percent cell count reference ranges are not reported, since discordance with absolute values may lead to misinterpretation of CBC data. Current Interpretive Data was last revised on 2017. Basophil pct 0.5 % [facility] Comment: Interpretive Data Percent cell count reference ranges are not reported, since discordance with absolute values may lead to misinterpretation of CBC data. Current Interpretive Data was last revised on 2017. Blood 12/21/2024 10:2 8 AM CDT 12/21/2024 11:41 AM CDT us Kika Simpson [place] [facility] BLOOD ORDERABLES nal Result [facility] Department [place] [address] * (ABNORMAL) CBC with auto differential (12/21/2024 10:28 AM CDT) WBC 25.68(H) 3.80 - 9.90 K/cumm Hgb 8.9(L) 11.9 - 15.5 g/dL [facility] Hct 27.5(L) 35.6 - 45.5 % [facility] Plt 261 150 - 400 K/cumm [facility] MPV 9.5 9.1 - 12.3 fL [facility] RBC 3.01(L) 3.90 - 5.20 M/cumm [facility] MCV 91.4 81.3 - 96.4 fL [facility] MCH 29.6 27.1 - 33.3 pg [facility] MCHC 32.4 32.3 - 35.7 g/dL [facility] RDW CV 15.8(H) 11.1 - 14.9 % [facility] RDW SD 50.8(H) 35.7 - 48.1 fL [facility] NRBC abs 0.08(H) 0.00 - 0.01 K/cumm [facility] Blood 12/21/2024 10:2 8 AM CDT 12/21/2024 11:41 AM CDT [facility] Fi nal Result Performing Organization Address [facility] de Phone Number [facility] [place] [address] * (ABNORMAL) aPTT (12/21/2024 10:28 AM CDT) aPTT 27(L) 28 - 38 sec Comment: Interpretive Data Heparin therapeutic range: 66.0 - 100.0 seconds. Range based on correlation with therapeutic heparin activity range of 0.3 - 0.7 Units/mL. Current interpretive data was last revised on 2023. Blood 12/21/2024 10:2 8 AM CDT 12/21/2024 11:36 AM CDT [facility]LOOD ORDERABLES Fi nal Result Performing Organization Address [facility] [place] [address] * (ABNORMAL) Protime-INR (12/21/2024 10:28 AM CDT) PT 13.7(H) 9.7 - 13.0 sec INR 1.26(H) 0.90 - 1.20 [facility] Comment: Interpretive data Oral anticoagulant therapeutic ranges: Venous thromboembolism prophylaxis or treatment: 2.0-3.0 CARDIOLOGY Standard range: 2.0-3.0 High-intensity range: 2.5-3.5 Refer to indication-specific guidelines for appropriate target ranges for prosthetic heart valve replacement. Current interpretive data was last revised on 2019. Blood 12/21/2024 10:2 8 AM CDT 12/21/2024 11:36 AM CDT us Kika Simpson DNP LAB BLOOD ORDERABLES Fi nal Result Performing Organization Address City/[facility] Co de Phone Number ALEX [facility] Department [place] [address] * POCT glucose (12/21/2024 7:38 AM CDT) Glucose, POC 119 70 - 199 mg/dL Blood 12/21/2024 7:38 AM CDT 12/21/2024 7:38 AM CDT us Indiana Mortensen MD LAB POCT ORDERABLES - DEVICE Final Result Performing Organization Address [facility] Co de Phone Number [facility] Department [place] [address] * Critical Care (12/21/2024 7:17 AM CDT) [...] plan with the ICU team and other medical/solutions consultant staff, making frequent assessments and decisions [...] * POCT glucose (12/21/2024 3:56 AM CDT) [facility] Glucose, POC 110 70 - 199 mg/dL Blood 12/21/2024 3:56 AM CDT 12/21/2024 3:56 AM CDT Indiana Mortensen MD LAB POCT ORDERABLES - DEVICE Final Result [facility] Department [place] [address] * (ABNORMAL) CBC without differential (12/21/2024 12:45 AM CDT) [facility] WBC 21.05(H) 3.80 - 9.90 K/cumm Hgb 8.4(L) 11.9 - 15.5 g/dL [facility] Hct 25.8(L) 35.6 - 45.5 % [facility] Plt 225 150 - 400 K/cumm [facility] MPV 9.6 9.1 - 12.3 fL [facility] RBC 2.82(L) 3.90 - 5.20 M/cumm [facility] MCV 91.5 81.3 - 96.4 fL [facility] MCH 29.8 27.1 - 33.3 pg [facility] MCHC 32.6 32.3 - 35.7 g/dL [facility] RDW CV 15.6(H) 11.1 - 14.9 % [facility] RDW SD 50.0(H) 35.7 - 48.1 fL [facility] NRBC abs 0.07(H) 0.00 - 0.01 K/cumm [facility] Blood 12/21/2024 12:4 5 AM CDT 12/21/2024 1:10 AM CDT Ruthann Cox [employer] LAB BLOOD ORDERABLES Final Result Performing Organization Address City/[facility]/ZIP Co de Phone Number ALEX [facility] Department [place] [address] * eGFR (12/21/2024 12:03 AM CDT) eGFR [...] 12/21/2024 12:19 AM CDT us Marian Rodrigues [employer] LAB BLOOD ORDERABLES Brenda l Result Performing Organization Address City/[facility]/ZIP Co de Phone Number ALEX MCKEON [facility] Department [place] [address] * POCT glucose (12/21/2024 12:03 AM CDT) Glucose, POC 128 70 - 199 mg/dL Blood 12/21/2024 12:0 3 AM CDT 12/21/2024 12:03 AM CDT Indiana Mortensen MD LAB POCT ORDERABLES - DEVICE Final Result Performing Organization Address [facility] [place] [address] * Type and screen (12/21/2024 12:03 AM CDT) Sarah, indirect Negative ABO Rh B Negative [facility] Blood 12/21/2024 12:0 3 AM CDT 12/21/2024 12:21 AM CDT Narrative [facility] - 12/21/2024 1:10 AM CDT Has the patient had Daratumumab or Isatuximab in the past 6 months?->Unknown Kika Simpson [place] [facility] BLOOD BANK TEST ORD ERABLES Final Result Performing Organization Address [facility] [place] [address] * (ABNORMAL) Phosphorus (12/21/2024 12:03 AM CDT) Pathologist [facility] Phosphorus, pl 5.2(H) 2.3 - 4.5 mg/dL Blood 12/21/2024 12:0 3 AM CDT 12/21/2024 12:19 AM CDT Kika Simpson [place] [facility] BLOOD ORDERABLES Fi nal Result Performing Organization Address [facility] [place] [address] * Magnesium (12/21/2024 12:03 AM CDT) Pathologist [facility] Magnesium 2.0 1.4 - 2.5 mg/dL Blood 12/21/2024 12:0 3 AM CDT 12/21/2024 12:19 AM CDT us Kika Simpson DNP LAB BLOOD ORDERABLES Fi nal Result [facility] Department [place] [address] * (ABNORMAL) Comprehensive metabolic panel (12/21/2024 12:03 AM CDT) Sodium 143 135 - 145 mmol/L Potassium, pl 3.8 3.3 - 4.9 mmol/L [facility] Chloride 105 97 - 110 mmol/L [facility] CO2 27 22 - 32 mmol/L [facility] Anion gap 11 2 - 15 mmol/L [facility] BUN 34(H) 6 - 25 mg/dL [facility] Creatinine 0.95 0.60 - 1.10 mg/dL [facility] Glucose 125 70 - 199 mg/dL [facility] Comment: Interpretive Data Fasting [...] 2022. Calcium 8.8 8.5 - 10.3 mg/dL [facility] Bilirubin, total 0.6 0.1 - 1.2 mg/dL [facility] Protein, pl 5.4(L) 6.5 - 8.5 g/dL [facility] Albumin 3.2(L) 3.5 - 5.0 g/dL [facility] Alk phos 87 40 - 130 Units/L [facility] ALT 682(H) 7 - 45 Units/L [facility] AST 136(H) 10 - 45 Units/L [facility] Blood 12/21/2024 12:0 3 AM CDT 12/21/2024 12:19 AM CDT us Kika Simpson DNP LAB BLOOD ORDERABLES Fi nal Result ALEX [facility] Department [place] [address] * XR Chest 1 View (12/20/2024 8:52 PM CDT) Anatomical Region Laterality Modality Body, Chest N/A Digital Radiogra phy 12/20/2024 8:58 PM CDT Impressions 12/20/2024 8:58 PM CDT Comparison to 12/19/2024. Gastric tube terminates below the diaphragm outside the [id number]. Aortic valve replacement suboptimally evaluated. Transvenous pacer [...] tube terminates below the diaphragm outside the [id number]. Aortic valve replacement suboptimally evaluated. Transvenous pacer [...] by: Sunny Child M.D. us Ruthann Cox [employer] IMG XR PROCEDURES Fin al Result * [...] plan with the ICU team and other medical/solutions consultant staff, making frequent assessments and decisions [...] LAB POCT ORDERABLES - DEVICE Final Result [facility] [place] [address] * Potassium, whole blood (12/20/2024 3:49 PM CDT) Potassium, bld 4.0 3.3 - 4.9 mmol/L Blood 12/20/2024 3:49 PM CDT 12/20/2024 3:56 PM CDT Angela Corona Brooke [employer] LAB BLOOD ORDERABLES Final Result Performing Organization Address [facility] de Phone Number [facility] [place] [address] * POCT glucose (12/20/2024 3:48 PM CDT) Glucose, POC 134 70 - 199 mg/dL Blood 12/20/2024 3:48 PM CDT 12/20/2024 3:48 PM CDT Indiana Mortensen MD LAB POCT ORDERABLES - DEVICE Final Result Performing Organization Address [facility] de Phone Number [facility] [place] [address] * (ABNORMAL) POCT glucose (12/20/2024 3:44 PM CDT) Glucose, POC 371(H) 70 - 199 mg/dL Blood 12/20/2024 3:44 PM CDT 12/20/2024 3:44 PM CDT Indiana Mortensen MD LAB POCT ORDERABLES - DEVICE Final Result Performing Organization Address [facility] de Phone Number [facility] [place] [address] * (ABNORMAL) POCT glucose (12/20/2024 3:43 PM CDT) Glucose, POC 364(H) 70 - 199 mg/dL Blood 12/20/2024 3:43 PM CDT 12/20/2024 3:43 PM CDT Indiana Mortensen MD LAB POCT ORDERABLES - DEVICE Final Result Performing Organization Address [facility] Co de Phone Number [facility] [place] [address] * (ABNORMAL) POCT glucose (12/20/2024 3:42 PM CDT) Glucose, POC 367(H) 70 - 199 mg/dL Blood 12/20/2024 3:42 PM CDT 12/20/2024 3:42 PM CDT Indiana Mortensen MD LAB POCT ORDERABLES - DEVICE Final Result Performing Organization Address [facility] [place] [address] * POCT glucose (12/20/2024 11:11 AM CDT) Glucose, POC 113 70 - 199 mg/dL Blood 12/20/2024 11:1 1 AM CDT 12/20/2024 11:11 AM CDT us Indiana Mortensen MD LAB POCT ORDERABLES - DEVICE Final Result Performing Organization Address [facility] de Phone Number [facility] [place] [employer] [place] [address] * POCT glucose (12/20/2024 8:12 AM CDT) Glucose, POC 133 70 - 199 mg/dL Blood 12/20/2024 8:12 AM CDT 12/20/2024 8:12 AM CDT Indiana Mortensen MD LAB POCT ORDERABLES - DEVICE Final Result Performing Organization Address [facility] Co de Phone [place] [address] * Potassium, whole blood (12/20/2024 8:00 AM CDT) Potassium, bld 4.2 3.3 - 4.9 mmol/L Blood 12/20/2024 8:00 AM CDT 12/20/2024 8:24 AM CDT Angela Chloe Cox [employer] LAB BLOOD ORDERABLES [place] [address] * Potassium, whole blood (12/20/2024 6:21 AM CDT) Potassium, bld 4.2 3.3 - 4.9 mmol/L Blood 12/20/2024 6:21 AM CDT 12/20/2024 6:26 AM CDT Angela Cox [employer] LAB BLOOD ORDERABLES Final Result Performing Organization Address City/State/[facility] Co de Phone Number [place] [address] * eGFR (12/19/2024 11:17 PM CDT) eGFR [...] 12/19/2024 11:57 PM CDT us Marian Rodrigues [employer] LAB BLOOD ORDERABLES Brenda l Result [facility] Department [place] [address] * (ABNORMAL) CBC without differential (12/19/2024 11:17 PM CDT) WBC 16.84(H) 3.80 - 9.90 K/cumm Hgb 7.9(L) 11.9 - 15.5 g/dL [facility] Hct 24.5(L) 35.6 - 45.5 % [facility] Plt 208 150 - 400 K/cumm [facility] MPV 9.5 9.1 - 12.3 fL [facility] RBC 2.66(L) 3.90 - 5.20 M/cumm [facility] MCV 92.1 81.3 - 96.4 fL [facility] MCH 29.7 27.1 - 33.3 pg [facility] MCHC 32.2(L) 32.3 - 35.7 g/dL [facility] RDW CV 15.6(H) 11.1 - 14.9 % [facility] RDW SD 49.4(H) 35.7 - 48.1 fL [facility] NRBC abs 0.14(H) 0.00 - 0.01 K/cumm [facility] Blood 12/19/2024 11:1 7 PM CDT 12/19/2024 11:57 PM CDT us Kika Simpson DNP LAB BLOOD ORDERABLES Fi nal Result Performing Organization Address City/State/[facility] Co de Phone Number [facility] [place] [address] * Phosphorus (12/19/2024 11:17 PM CDT) Phosphorus, pl 4.4 2.3 - 4.5 mg/dL Blood 12/19/2024 11:1 7 PM CDT 12/19/2024 11:52 PM CDT Kika Simpson DNP LAB BLOOD ORDERABLES Fi nal Result Performing Organization Address [facility] [place] [address] * Magnesium (12/19/2024 11:17 PM CDT) Pathologist [facility] Magnesium 2.1 1.4 - 2.5 mg/dL Blood 12/19/2024 11:1 7 PM CDT 12/19/2024 11:52 PM CDT Kika Simpson DNP LAB BLOOD ORDERABLES Fi nal Result Performing Organization Address [facility] de Phone Number [facility] Department [place] [address] * Ammonia (12/19/2024 11:17 PM CDT) Ammonia 31 <=50 mcmol/L Blood 12/19/2024 11:1 7 PM CDT 12/19/2024 11:46 PM CDT us Chapito Rodriguez [employer] LAB BLOOD ORDERABLES Final Re sult Performing Organization Address [facility] Co de Phone Number [facility] [place] [address] * Vancomycin level random (12/19/2024 11:17 PM CDT) Vancomycin random 6.5 mcg/mL Comment: Interpretive Data No reference ranges have been established for random drug levels. Current Interpretive Data was last revised on 2020. Blood 12/19/2024 11:1 7 PM CDT 12/19/2024 11:52 PM CDT us Indiana Mortensen MD LAB BLOOD ORDERABLES Final Re sult [facility] Department [place] [address] * (ABNORMAL) Comprehensive metabolic panel (12/19/2024 11:17 PM CDT) Pathologist [facility] Sodium 141 135 - 145 mmol/L Potassium, pl 3.8 3.3 - 4.9 mmol/L [facility] Chloride 105 97 - 110 mmol/L [facility] CO2 27 22 - 32 mmol/L [facility] Anion gap 9 2 - 15 mmol/L [facility] BUN 32(H) 6 - 25 mg/dL [facility] Creatinine 0.97 0.60 - 1.10 mg/dL [facility] Glucose 123 70 - 199 mg/dL [facility] Comment: Interpretive Data Fasting [...] 2022. Calcium 8.8 8.5 - 10.3 mg/dL [facility] Bilirubin, total 0.8 0.1 - 1.2 mg/dL [facility] Protein, pl 5.5(L) 6.5 - 8.5 g/dL [facility] Albumin 3.1(L) 3.5 - 5.0 g/dL [facility] Alk phos 82 40 - 130 Units/L [facility] ALT 904(H) 7 - 45 Units/L [facility] AST 273(H) 10 - 45 Units/L [facility] Blood 12/19/2024 11:1 7 PM CDT 12/19/2024 11:52 PM CDT Kika Simpson [place] [facility] BLOOD ORDERABLES Fi nal Result [facility] [place] [address] * POCT glucose (12/19/2024 11:16 PM CDT) Glucose, POC 136 70 - 199 mg/dL Blood 12/19/2024 11:1 6 PM CDT 12/19/2024 11:16 PM CDT us Indiana Mortensen MD LAB POCT ORDERABLES - DEVICE Final Result Performing Organization Address City/[facility]/ZIP Co de Phone Number [facility] [place] [address] * POCT glucose (12/19/2024 8:12 PM CDT) Glucose, POC 134 70 - 199 mg/dL Blood 12/19/2024 8:12 PM CDT 12/19/2024 8:12 PM CDT Indiana Mortensen MD LAB POCT ORDERABLES - DEVICE Final Result Performing Organization Address City/[facility]/ZIP Co de Phone Number [facility] [place] [address] * XR Chest 1 View (12/19/2024 8:05 [...] plan with the ICU team and other medical/solutions consultant staff, making frequent assessments and decisions [...] documenting in the medical record Ruthann Cox [employer] PA[employer] IN CLINIC/BEDSIDE ORD ERABLES Final Result * Potassium, whole blood (12/19/2024 6:19 PM CDT) Pathologist [facility] Potassium, bld 3.6 3.3 - 4.9 mmol/L Blood 12/19/2024 6:19 PM CDT 12/19/2024 6:52 PM CDT Result [facility] Angela Cox [employer] LAB BLOOD ORDERABLES Final Result [facility] [place] [address] * (ABNORMAL) Blood gas, arterial (12/19/2024 6:19 PM CDT) pH, Art 7.46(H) 7.35 - 7.45 PCO2, Arterial 34(L) 35 - 45 mmHg [facility] PO2, Arterial 229(H) 83 - 108 mmHg [facility] HCO3 Art (Calculated) 25 20 - 30 mmol/L [facility] BE, art 1 mmol/L [facility] Comment: Interpretive Data No Reference Range Established Current Interpretive Data was last revised on 2017 O2 Sat Art (Measured) 100(H) 90 - 95 % [facility] Blood 12/19/2024 6:19 PM CDT 12/19/2024 6:52 PM CDT Narrative [facility] 12/19/2024 6:56 PM CDT Respiratory distress or poor pulse ox waveform (currently w/ moving) us Ignacio Brown NP LAB BLOOD ORDERABLES Final Result Performing Organization Address [facility] Co de Phone Number [facility] Department [place] [address] * POCT glucose (12/19/2024 3:41 PM CDT) [facility] Signature Glucose, POC 124 70 - 199 mg/dL Blood 12/19/2024 3:41 PM CDT 12/19/2024 3:41 PM CDT Indiana Mortensen MD LAB POCT ORDERABLES - DEVICE Final Result Performing Organization Address [facility] de Phone Number [facility] [place] [address] * US Vein Duplex Upper Extremity Bilateral Complete (12/19/2024 12:08 PM CDT) Anatomical Region Laterality Modality Vascular Bilateral Ultrasound 12/19/2024 9:32 AM CDT Narrative 12/19/2024 1:41 PM CDT [facility] - Department of Vascular Surgery, Vascular Laboratory [address] [place] [id number] Upper Extremity Venous Ultrasound Report Patient Name: ADI FLOWERS : 1960 (64y 1m) Study Date: 12/19/2024 9:32:10 AM Gender: F Tech: MS Location: [id number] Ref Provider: CHAPITO RODRIGUEZ Quality: Technically difficult Order Provider: CHAPITO RODRIGUEZ PROCEDURES: Vascular Report: Venous Duplex imaging was performed bilaterally in the upper extremities. The internal jugular, subclavian and axillary veins were evaluated for patency, spontaneity and phasicity with Doppler, compression and augmentation maneuvers. The brachial, basilic and cephalic veins were also evaluated with compression maneuvers. INDICATIONS: Localized edema. FINDINGS: Performing Pecan Gatherer: Adeola Davis, PEDRO, RVT. Right: Venous Doppler signals in the [...] above. Electronically Signed By: Ravinder Buitrago MD [facility] [phone] 12/19/2024 1:38:48 PM CDT Procedure Note Ravinder Buitrago MD - 12/19/2024 [facility] [facility] - Department of Vascular Surgery,Vascular Laboratory [address] [place] [address] Upper Extremity Venous Ultrasound Report Patient Name: ADI FLOWERS : 1960 (64y 1m) Study Date: 12/19/2024 9:32:10 AM Gender: F Tech: [place] Location: [id number] Ref Provider: CHAPITO RODRIGUEZ Quality: Technically difficult Order Provider: CHAPITO RODRIGUEZ PROCEDURES: Vascular Report: Venous Duplex imaging was performed bilaterally in the upper extremities.The internal jugular, subclavian and axillary veins were evaluated for patency,spontaneity and phasicity with Doppler, compression and augmentation maneuvers. Thebrachial, basilic and cephalic veins were also evaluated with compression maneuvers. INDICATIONS: Localized edema. FINDINGS: Performing Pecan Gatherer: Adeola Davis RDMS, RVT. Right: Venous Doppler [...] above. Electronically Signed By: Ravinder Buitrago MD [facility] [phone] 12/19/2024 1:38:48 PM CDT us Chapito Rodriguez NP IMG US PROCEDURES Final Resul t * US Vein Duplex Lower Extremity Bilateral Complete (12/19/2024 12:07 PM CDT) Anatomical Region Laterality Modality Vascular Bilateral Ultrasound 12/19/2024 9:12 AM CDT Narrative 12/19/2024 1:42 PM CDT [facility] - Department of Vascular Surgery, Vascular Laboratory [address] [place] [id number] Lower Extremity Venous Ultrasound Report Patient Name: ADI FLOWERS : 1960 (64y 1m) Study Date: 12/19/2024 9:12:22 AM Gender: F Tech: Location: [id number] Ref Provider: CHAPITO RODRIGUEZ Quality: Technically difficult Order Provider: CHAPITO RODRIGUEZ PROCEDURES: Vascular Report: Venous Duplex imaging was performed bilaterally in the lower extremities. The common femoral, femoral, popliteal, posterior tibial, peroneal veins were evaluated for patency, spontaneity and phasicity with Doppler, compression and augmentation maneuvers. Great saphenous vein proximal at the junction was evaluated with compression maneuvers. INDICATIONS: Intermittent fever. FINDINGS: Performing Pecan Gatherer: Adeola Davis RDMS, T. Right: Duplex scan [...] above. Electronically Signed By: Ravinder Buitrago MD [facility] [phone] 12/19/2024 1:40:18 PM CDT Procedure Note Ravinder Buitrago MD - 12/19/2024 [facility] - Department of Vascular Surgery,Vascular Laboratory [address] [place] [address] Lower Extremity Venous Ultrasound Report Patient Name: ADI FLOWERS : 1960 (64y 1m) Study Date: 12/19/2024 9:12:22 AM Gender: F Tech: Location: [id number] Ref Provider: CHAPITO RODRIGUEZ Quality: Technically difficult Order Provider: CHAPITO RODRIGUEZ PROCEDURES: Vascular Report: Venous Duplex imaging was performed bilaterally in the lower extremities.The common femoral, femoral, popliteal, posterior tibial, peroneal veins wereevaluated for patency, spontaneity and phasicity with Doppler, compression and augmentationmaneuvers. Great saphenous vein proximal at the junction was evaluated with compressionmaneuvers. INDICATIONS: Intermittent fever. FINDINGS: Performing Pecan Gatherer: Adeola Davis, PEDRO, RVT. Right: Duplex scan reveals dilated [...] above. Electronically Signed By: Ravinder Buitrago MD [facility] [phone] 12/19/2024 1:40:18 PM CDT Chapito Rodriguez HAT LINING PASTER IMG US PROCEDURES Final Resul t * Potassium, whole blood (12/19/2024 12:06 PM CDT) Potassium, bld 3.9 3.3 - 4.9 mmol/L Blood 12/19/2024 12:0 6 PM CDT 12/19/2024 1:36 PM CDT Angela Cox HAT LINING PASTER LAB BLOOD ORDERABLES Final Result Performing Organization Address [facility] Co de Phone Number [facility] [place] [address] * (ABNORMAL) Blood gas, arterial (12/19/2024 12:06 PM CDT) pH, Art 7.44 7.35 - 7.45 PCO2, Arterial 35 35 - 45 mmHg [facility] PO2, Arterial 243(H) 83 - 108 mmHg [facility] HCO3 Art (Calculated) 24 20 - 30 mmol/L [facility] BE, art 0 mmol/L [facility] Comment: Interpretive Data No Reference Range Established Current Interpretive Data was last revised on 2017 O2 Sat Art (Measured) 100(H) 90 - 95 % [facility] Blood 12/19/2024 12:0 6 PM CDT 12/19/2024 1:36 PM CDT Narrative [facility] - 12/19/2024 1:44 PM CDT Respiratory distress or poor pulse ox waveform (currently w/ moving) Ignacio Brown HAT LINING PASTER LAB BLOOD ORDERABLES Final Result Performing Organization Address [facility] Co de Phone Number [facility] [place] [address] * POCT glucose (12/19/2024 12:05 PM CDT) Glucose, POC 146 70 - 199 mg/dL Blood 12/19/2024 12:0 5 PM CDT 12/19/2024 12:05 PM CDT us Indiana Mortensen MD LAB POCT ORDERABLES - DEVICE Final Result [facility] Department [place] [address] * XR Chest 1 View (12/19/2024 9:09 [...] by: Shala Eldridge M.D. us Chapito Rodriguez NP IMG XR PROCEDURES Final Resul t * POCT glucose (12/19/2024 8:24 AM CDT) Glucose, POC 141 70 - 199 mg/dL Blood 12/19/2024 8:24 AM CDT 12/19/2024 8:24 AM CDT Indiana Mortensen MD LAB POCT ORDERABLES - DEVICE Final Result [facility] Department [place] [address] * Critical Care (12/19/2024 7:27 AM CDT) [...] plan with the ICU team and other medical/solutions consultant staff, making frequent assessments and decisions [...] documenting in the medical record Chapito Rodriguez HAT LINING PASTER IN CLINIC/BEDSIDE ORDERABLES Final Result * (ABNORMAL) POC Blood Gas and Chemistries, Arterial - (12/19/2024 6:58 AM CDT) pH, Art POC 7.47(H) 7.35 - 7.45 pCO2, Art POC 31(L) 35 - 45 mmHg [facility] pO2, Art POC 84 83 - 108 mmHg [facility] Na, POC 140 135 - 145 mmol/L [facility] K POC 3.4 3.3 - 4.9 mmol/L [facility] Comment: Interpretive Data Not all point of care methods assess for hemolysis. Confirm with instrument and retest K+ if not consistent with clinical signs and symptoms. Current Interpretive Data was last revised on 2023. Cl, POC 111(H) 97 - 110 mmol/L [facility] Ionized Ca, POC 4.51 4.50 - 5.10 mg/dL [facility] Glucose, POC 140 70 - 199 mg/dL [facility] Lactate POC 1.0 0.7 - 2.0 mmol/L [facility] SO2 (chandra) arterial 98(H) 90 - 95 % [facility] Base excess, POC -0.8 mmol/L [facility] HCO3, Art POC 23 20 - 30 mmol/L [facility] Hct, POC 24.0(L) 36.3 - 45.3 % [facility] Total Hb, POC 8.1(L) 11.9 - 15.5 g/dL [facility] Blood 12/19/2024 6:58 AM CDT 12/19/2024 6:58 AM CDT Indiana Mortensen MD LAB POCT ORDERABLES - DEVICE Final Result Performing Organization Address City/[facility] Co de Phone Number [facility] [place] [address] * POCT glucose (12/19/2024 4:21 AM CDT) Glucose, POC 148 70 - 199 mg/dL Blood 12/19/2024 4:21 AM CDT 12/19/2024 4:21 AM CDT Indiana Mortensen MD LAB POCT ORDERABLES - DEVICE Final Result Performing Organization Address [facility] de Phone Number ALEX [facility] Department [place] [address] * Potassium, whole blood (12/18/2024 11:54 PM CDT) [facility] Potassium, bld 4.3 3.3 - 4.9 mmol/L Blood 12/18/2024 11:5 4 PM CDT 12/19/2024 12:07 AM CDT Angela Cox NP LAB BLOOD ORDERABLES Final Result Performing Organization Address City/[facility] Co de Phone Number [facility] Department [place] [address] * eGFR (12/18/2024 11:54 PM CDT) eGFR [...] PM CDT 12/19/2024 12:10 AM CDT us Marian Rodrigues NP LAB BLOOD ORDERABLES Brenda wharton Result [facility] Department [place] [address] * (ABNORMAL) CBC without differential (12/18/2024 11:54 PM CDT) WBC 20.35(H) 3.80 - 9.90 K/cumm Hgb 7.8(L) 11.9 - 15.5 g/dL [facility] Hct 23.3(L) 35.6 - 45.5 % [facility] Plt 211 150 - 400 K/cumm [facility] MPV 9.4 9.1 - 12.3 fL [facility] RBC 2.58(L) 3.90 - 5.20 M/cumm [facility] MCV 90.3 81.3 - 96.4 fL [facility] MCH 30.2 27.1 - 33.3 pg [facility] MCHC 33.5 32.3 - 35.7 g/dL [facility] RDW CV 15.0(H) 11.1 - 14.9 % [facility] RDW SD 46.8 35.7 - 48.1 fL [facility] NRBC abs 0.26(H) 0.00 - 0.01 K/cumm [facility] Blood 12/18/2024 11:5 4 PM CDT 12/19/2024 12:11 AM CDT Kika Simpson [place] LAB BLOOD ORDERABLES Fi nal Result Performing Organization Address [facility] [place] [address] * Type and screen (12/18/2024 11:54 PM CDT) ABO Rh B Negative Sarah, indirect Negative [facility] Blood 12/18/2024 11:5 4 PM CDT 12/19/2024 12:14 AM CDT Narrative [facility] - 12/19/2024 1:16 AM CDT Has the patient had Daratumumab or Isatuximab in the past 6 months?->Unknown Indiana Mortensen MD LAB BLOOD BANK TEST ORDERABLE S Final Result Performing Organization Address [facility] [place] [address] * Phosphorus (12/18/2024 11:54 PM CDT) Pathologist [facility] Phosphorus, pl 3.0 2.3 - 4.5 mg/dL Blood 12/18/2024 11:5 4 PM CDT 12/19/2024 12:10 AM CDT Kika Simpson [place] LAB BLOOD ORDERABLES Fi nal Result Performing Organization Address [facility] [place] [address] * Magnesium (12/18/2024 11:54 PM CDT) Pathologist [facility] Magnesium 2.0 1.4 - 2.5 mg/dL Blood 12/18/2024 11:5 4 PM CDT 12/19/2024 12:10 AM CDT us Kika Simpson DNP LAB BLOOD ORDERABLES Fi nal Result [facility] Department [place] [address] * (ABNORMAL) Blood gas, arterial (12/18/2024 11:54 PM CDT) pH, Art 7.46(H) 7.35 - 7.45 PCO2, Arterial 30(L) 35 - 45 mmHg [facility] PO2, Arterial 174(H) 83 - 108 mmHg [facility] HCO3 Art (Calculated) 22 20 - 30 mmol/L [facility] BE, art -2 mmol/L [facility] Comment: Interpretive Data No Reference Range Established Current Interpretive Data was last revised on 2017 O2 Sat Art (Measured) 100(H) 90 - 95 % [facility] Blood 12/18/2024 11:5 4 PM CDT 12/19/2024 12:07 AM CDT Narrative [facility] - 12/19/2024 12:12 AM CDT Respiratory distress or poor pulse ox waveform (currently w/ moving) us Ignacio Brown HAT LINING PASTER LAB BLOOD ORDERABLES Final Result Performing Organization Address [facility] Co de Phone Number [facility] Department [place] [address] * (ABNORMAL) Comprehensive metabolic panel (12/18/2024 11:54 PM CDT) Sodium 140 135 - 145 mmol/L Potassium, pl 4.3 3.3 - 4.9 mmol/L [facility] Chloride 108 97 - 110 mmol/L [facility] CO2 23 22 - 32 mmol/L [facility] Anion gap 9 2 - 15 mmol/L [facility] BUN 33(H) 6 - 25 mg/dL [facility] Creatinine 0.94 0.60 - 1.10 mg/dL [facility] Glucose 148 70 - 199 mg/dL [facility] Comment: Interpretive Data Fasting [...] 2022. Calcium 8.2(L) 8.5 - 10.3 mg/dL [facility] Bilirubin, total 0.6 0.1 - 1.2 mg/dL [facility] Protein, pl 5.4(L) 6.5 - 8.5 g/dL [facility] Albumin 3.0(L) 3.5 - 5.0 g/dL [facility] Alk phos 84 40 - 130 Units/L [facility] ALT 1,143(H) 7 - 45 Units/L [facility] AST 576(H) 10 - 45 Units/L [facility] Blood 12/18/2024 11:5 4 PM CDT 12/19/2024 12:10 AM CDT us Kika Simpson [place] LAB BLOOD ORDERABLES Fi nal Result [facility] Department [place] [address] * POCT glucose (12/18/2024 11:53 PM CDT) [facility] Signature Glucose, POC 157 70 - 199 mg/dL Blood 12/18/2024 11:5 3 PM CDT 12/18/2024 11:53 PM CDT us Indiana Mortensen MD LAB POCT ORDERABLES - DEVICE Final Result Performing Organization Address City/[facility]/ZIP Co de Phone Number [facility] Department [place] [address] * Potassium, whole blood (12/18/2024 8:25 PM CDT) Potassium, bld 3.8 3.3 - 4.9 mmol/L Blood 12/18/2024 8:25 PM CDT 12/18/2024 8:34 PM CDT us Angela Brownejose mariawesly Cox HAT LINING PASTER LAB BLOOD ORDERABLES Final Result Performing Organization Address [facility] Co de Phone Number [facility] Department [place] [address] * POCT glucose (12/18/2024 8:21 PM CDT) Glucose, POC 141 70 - 199 mg/dL Blood 12/18/2024 8:21 PM CDT 12/18/2024 8:21 PM CDT us Indiana Mortensen MD LAB POCT ORDERABLES - DEVICE Final Result Performing Organization Address [facility] de Phone Number [facility] Department [place] [address] * XR Chest 1 View (12/18/2024 7:38 [...] plan with the ICU team and other medical/solutions consultant staff, making frequent assessments and decisions [...] documenting in the medical record Ignacio Brown NP IN CLINIC/BEDSIDE ORDERABL ES Final Result * Aerobic and anaerobic culture and gram stain Pleural fluid Pleural (12/18/2024 4:19 PM CDT) Direct Specimen Exam Stain: Cytospin Gram stain shows: Few polymorphonuclear leukocytes seen. No organisms seen. Report Final Report: No growth [facility] Pleural fluid (Pleural) 12/18/2024 4:19 PM CDT 12/18/2024 5:20 PM CDT Narrative [facility] - 12/24/2024 1:41 PM CDT Fluid specimen received. Testing performed by [facility] ([phone]) Specimens submitted from normally sterile body sites [...] on 2019. Josr AUGUSTIN LAB MICROBIOLOGY - [facility] ORDERABLES Final Result [facility] [place] [address] * Protein, body fluid (12/18/2024 4:19 PM CDT) Specimen type, fld Pleural Body site, fld Pleural fluid, left [facility] Protein, fld 2.0 g/dL [facility] Comment: The above specimen [...] CDT Josr AUGUSTIN LAB BODY FLUIDS AND LEAH LS ORDERABLES Final Result [facility] Department [place] [address] * Lactate dehydrogenase, body fluid (12/18/2024 4:19 PM CDT) Specimen type, fld Pleural Body site, fld Pleural fluid, left [facility] LD, fld 323 Units/L [facility] Comment: The above specimen [...] LS ORDERABLES Final Result Performing Organization Address [facility] Co de Phone Number [facility] Department [place] [address] * Transfuse RBC (12/18/2024 4:06 PM CDT) Blood Josr AUGUSTIN BLOOD TRANSFUSION ORDERA BLES Edited Result - Final Performing Organization Address [facility] de Phone Number [facility] [place] [address] * Potassium, whole blood (12/18/2024 4:00 PM CDT) Potassium, bld 3.4 3.3 - 4.9 mmol/L Blood 12/18/2024 4:00 PM CDT 12/18/2024 4:06 PM CDT Angela Cox NP LAB BLOOD ORDERABLES Final Result Performing Organization Address [facility] Co de Phone Number [facility] Department [place] [address] * POCT glucose (12/18/2024 3:58 PM CDT) Glucose, POC 124 70 - 199 mg/dL Blood 12/18/2024 3:58 PM CDT 12/18/2024 3:58 PM CDT Indiana Mortensen MD LAB POCT ORDERABLES - DEVICE Final Result Performing Organization Address [facility] Co de Phone Number [facility] [place] [address] * MRSA Only (Staphylococcus aureus) Culture Nasal (12/18/2024 2:22 PM CDT) Report Final Report: Negative Nasal 12/18/2024 2:22 PM CDT 12/18/2024 3:31 PM CDT Narrative [facility] - 12/19/2024 5:03 PM CDT Testing performed by [facility] ([phone]). Marian Rodrigues NP LAB MICROBIOLOGY - GENERA L ORDERABLES Final Result [facility] Department [place] [address] * (ABNORMAL) POC Blood Gas and Chemistries, Arterial - (12/18/2024 11:03 AM CDT) pH, Art POC 7.41 7.35 - 7.45 pCO2, Art POC 29(L) 35 - 45 mmHg [facility] pO2, Art POC 83 83 - 108 mmHg [facility] Na, POC 139 135 - 145 mmol/L [facility] K POC 4.0 3.3 - 4.9 mmol/L [facility] Comment: Interpretive Data Not all point of care methods assess for hemolysis. Confirm with instrument and retest K+ if not consistent with clinical signs and symptoms. Current Interpretive Data was last revised on 2023. Cl, POC 110 97 - 110 mmol/L [facility] Ionized Ca, POC 4.56 4.50 - 5.10 mg/dL [facility] Glucose, POC 143 70 - 199 mg/dL [facility] Lactate POC 3.3(H) 0.7 - 2.0 mmol/L [facility] SO2 (chandra) arterial 97(H) 90 - 95 % [facility] Base excess, POC -5.5 mmol/L [facility] HCO3, Art POC 18(L) 20 - 30 mmol/L [facility] Hct, POC 23.0(L) 36.3 - 45.3 % [facility] Total Hb, POC 7.8(L) 11.9 - 15.5 g/dL [facility] Blood 12/18/2024 11:0 3 AM CDT 12/18/2024 11:03 AM CDT us Indiana Mortensen MD LAB POCT ORDERABLES - DEVICE Final Result [facility] Department [place] [address] * XR Chest 1 View (12/18/2024 10:23 [...] Electronically signed by: Shala Eldridge M.D. us Marian Hudson DNP IMG XR PROCEDURES Final Result * Thoracentesis -Left side (12/18/2024 9:33 AM CDT) Anatomical Region Laterality Modality Other Narrative Procedure Note Marian Hudson DNP - 12/18/2024 9:33 AM CDT [facility] Interventional Pulmonary Patient Name: Adi Flowers Procedure Date: 12/18/2024 9:33 AM Date of : 1960 Admit Type: Inpatient Age: 64 Room: [address] [place] [address] Gender: Female Note Status: Finalized Procedure: L ECHO Chest, L Thoracentesis with catheter Indications: Pleural effusion Providers: JORDI Medrano Referring MD: Medicines: Lidocaine 1% instilled into [...] insertion: Thoracentesis with tube insertion using an [employer] Pleura-Seal Thoracentesis Kit (8Fr.) was then performed [...] - Chest X-ray post-procedure. Electronically signed by SERGIO Vidal JORDI Velasquez 12/18/2024 11:10:19 AM Number of Addenda: 0 Note Initiated On: 12/18/2024 10:01 AM us Marian Hudson DNP IN CLINIC/BEDSIDE ORDER ROSY Final Result * Prepare RBC: 1 Units (12/18/2024 9:00 AM CDT) Product code [id number] Unit Number [id number] [facility] Product Blood Type BNEG [facility] Dispense Status PRESUMED TRANSFUSED [facility] Blood 12/18/2024 9:00 AM CDT 12/18/2024 8:59 AM CDT Narrative [facility] - 12/19/2024 12:56 AM CDT Are special requirements needed? (All products are leukoreduced and CMV- safe)- >No Date required:-20241218 [facility] [id number] Reasons:-Cardiovascular disease, Hgb <8 g/dL} Josr AUGUSTIN BLOOD BANK PRODUCT ORDER ROSY Final Result Performing Organization Address [facility] Co de Phone Number [facility] Department [place] [address] * POCT glucose (12/18/2024 7:56 AM CDT) [facility] Signature Glucose, POC 148 70 - 199 mg/dL Blood 12/18/2024 7:56 AM CDT 12/18/2024 7:56 AM CDT Indiana Mortensen MD LAB POCT ORDERABLES - DEVICE Final Result Performing Organization Address [facility] Co de Phone Number [facility] Department [place] [address] * Critical Care (12/18/2024 7:39 AM CDT) [...] plan with the ICU team and other medical/solutions consultant staff, making frequent assessments and decisions [...] CDT 12/18/2024 2:28 AM CDT Narrative [facility] - 12/18/2024 2:53 AM CDT Draw 30 minutes before dose given. Do not hold dose Ignacio Brown NP LAB BLOOD ORDERABLES Final Result Performing Organization Address City/[facility] Co de Phone Number [facility] [place] [address] * (ABNORMAL) aPTT (12/18/2024 1:20 AM CDT) [...] BLOOD ORDERABLES Final Result Performing Organization Address City/[facility]/ZIP Co de Phone Number [facility] [place] [address] * (ABNORMAL) Protime-INR (12/18/2024 1:20 AM CDT) Pathologist [facility] PT 14.3(H) 9.7 - 13.0 sec INR 1.32(H) 0.90 - 1.20 [facility] Comment: Interpretive data Oral anticoagulant therapeutic ranges: Venous thromboembolism prophylaxis or treatment: 2.0-3.0 CARDIOLOGY Standard range: 2.0-3.0 High-intensity range: 2.5-3.5 Refer to indication-specific guidelines for appropriate target ranges for prosthetic heart valve replacement. Current interpretive data was last revised on 2019. Blood 12/18/2024 1:20 AM CDT 12/18/2024 1:40 AM CDT Ignacio Brown NP LAB BLOOD ORDERABLES Final Result [facility] [place] [address] * (ABNORMAL) CBC without differential (12/18/2024 1:20 AM CDT) [facility] WBC 23.30(H) 3.80 - 9.90 K/cumm Hgb 7.2(L) 11.9 - 15.5 g/dL [facility] Hct 21.1(L) 35.6 - 45.5 % [facility] Plt 233 150 - 400 K/cumm [facility] MPV 9.4 9.1 - 12.3 fL [facility] RBC 2.40(L) 3.90 - 5.20 M/cumm [facility] [facility] MCV 87.9 81.3 - 96.4 fL [facility] MCH 30.0 27.1 - 33.3 pg [facility] MCHC 34.1 32.3 - 35.7 g/dL [facility] RDW CV 14.5 11.1 - 14.9 % [facility] RDW SD 45.7 35.7 - 48.1 fL [facility] NRBC abs 0.17(H) 0.00 - 0.01 K/cumm [facility] Blood 12/18/2024 1:20 AM CDT 12/18/2024 1:34 AM CDT Ignacio Brown HAT LINING PASTER LAB BLOOD ORDERABLES Final Result Performing Organization Address [facility] Co de Phone Number [facility] Department [place] [address] * Infection Prevention Justice auris PCR, surveillance Axilla/Groin (12/18/2024 12:42 AM CDT) Justice auris DNA Not Detected Not Detected [facility] Comment: Interpretive Data Testing performed by [facility] using the American Efficient shirin 6800 Justice auris assay. This assay detects DNA from Justice auris using Real-Time PCR. This assay is laboratory developed and is not cleared by the [facility] Food and Drug Administration. The performance characteristics have been verified by the [facility]. Axilla/Groin 12/18/2024 12:4 2 AM CDT 12/18/2024 1:50 AM CDT Narrative ALEX [facility] - 12/18/2024 12:42 PM CDT Order placed by [facility] due to ring surveillance. us Instant Order Generic Provider LAB MICROBIOLOGY - GENERAL ORDERABLES Final Result Performing Organization Address [facility] Co de Phone Number [facility] Department [place] [address] [facility] * eGFR (12/18/2024 12:42 AM CDT) [...] CDT 12/18/2024 12:54 AM CDT Marian Rodrigues NP LAB BLOOD ORDERABLES Brenda wharton Result [facility] Department [place] [address] * (ABNORMAL) CBC without differential (12/18/2024 12:42 AM CDT) WBC 21.90(H) 3.80 - 9.90 K/cumm Hgb 6.5(L) 11.9 - 15.5 g/dL [facility] Hct 19.7(L) 35.6 - 45.5 % [facility] Plt 145(L) 150 - 400 K/cumm [facility] MPV 10.3 9.1 - 12.3 fL [facility] RBC 2.18(L) 3.90 - 5.20 M/cumm [facility] MCV 90.4 81.3 - 96.4 fL [facility] MCH 29.8 27.1 - 33.3 pg [facility] MCHC 33.0 32.3 - 35.7 g/dL [facility] RDW CV 14.4 11.1 - 14.9 % [facility] RDW SD 45.6 35.7 - 48.1 fL [facility] NRBC abs 0.22(H) 0.00 - 0.01 K/cumm [facility] Blood 12/18/2024 12:4 2 AM CDT 12/18/2024 12:54 AM CDT [facility] LAB BLOOD ORDERABLES Fi nal Result Performing Organization Address [facility] de Phone Number [facility] [place] [address] * Phosphorus (12/18/2024 12:42 AM CDT) Pathologist [facility] Phosphorus, pl 2.9 2.3 - 4.5 mg/dL Blood 12/18/2024 12:4 2 AM CDT 12/18/2024 12:54 AM CDT Kika Aparicio [facility] LAB BLOOD ORDERABLES Fi nal Result Performing Organization Address [facility] de Phone Number [facility] [place] [address] * Magnesium (12/18/2024 12:42 AM CDT) [facility] Magnesium 2.2 1.4 - 2.5 mg/dL Blood 12/18/2024 12:4 2 AM CDT 12/18/2024 12:54 AM CDT [facility] LAB BLOOD ORDERABLES Fi nal Result Performing Organization Address [facility] de Phone Number [facility] [place] [address] * (ABNORMAL) Comprehensive metabolic panel (12/18/2024 12:42 AM CDT) Pathologist [facility] Sodium 138 135 - 145 mmol/L Potassium, pl 3.8 3.3 - 4.9 mmol/L [facility] Chloride 110 97 - 110 mmol/L [facility] CO2 19(L) 22 - 32 mmol/L [facility] Anion gap 9 2 - 15 mmol/L [facility] BUN 33(H) 6 - 25 mg/dL [facility] Creatinine 0.93 0.60 - 1.10 mg/dL [facility] Glucose 132 70 - 199 mg/dL [facility] Comment: Interpretive Data Fasting [...] 2022. Calcium 7.2(L) 8.5 - 10.3 mg/dL [facility] Bilirubin, total 0.4 0.1 - 1.2 mg/dL [facility] Protein, pl 4.9(L) 6.5 - 8.5 g/dL [facility] Albumin 2.7(L) 3.5 - 5.0 g/dL [facility] Alk phos 77 40 - 130 Units/L [facility] ALT 1,266(H) 7 - 45 Units/L [facility] AST 880(H) 10 - 45 Units/L [facility] Blood 12/18/2024 12:4 2 AM CDT 12/18/2024 12:54 AM CDT us Kika Simpson [place] LAB BLOOD ORDERABLES Fi nal Result [facility] [place] [address] * (ABNORMAL) Blood gas, arterial (12/17/2024 9:40 PM CDT) pH, Art 7.41 7.35 - 7.45 PCO2, Arterial 32(L) 35 - 45 mmHg [facility] PO2, Arterial 162(H) 83 - 108 mmHg [facility] HCO3 Art (Calculated) 21 20 - 30 mmol/L [facility] BE, art -4 mmol/L [facility] Comment: Interpretive Data No Reference Range Established Current Interpretive Data was last revised on 2017 O2 Sat Art (Measured) 100(H) 90 - 95 % [facility] Blood 12/17/2024 9:40 PM CDT 12/17/2024 9:46 PM CDT us Ignacio Brown HAT LINING PASTER LAB BLOOD ORDERABLES Final Result Performing Organization Address City/[facility] Co de Phone Number [facility] Department [place] [address] * POCT glucose (12/17/2024 8:50 PM CDT) Glucose, POC 135 70 - 199 mg/dL Blood 12/17/2024 8:50 PM CDT 12/17/2024 8:50 PM CDT Indiana Mortensen MD LAB POCT ORDERABLES - DEVICE Final Result Performing Organization Address [facility] de Phone Number [facility] Department [place] [address] * XR Chest 1 View (12/17/2024 7:10 [...] signed by: Shelton Echavarria M.D. Alecia Acosta HAT LINING PASTER IMG XR PROCEDURES Final Result * Critical [...] plan with the ICU team and other medical/solutions consultant staff, making frequent assessments and decisions [...] documenting in the medical record Ignacio Brown NP IN CLINIC/BEDSIDE ORDERABL ES Final Result * POCT glucose (12/17/2024 5:24 PM CDT) Glucose, POC 141 70 - 199 mg/dL Blood 12/17/2024 5:24 PM CDT 12/17/2024 5:24 PM CDT Indiana Mortensen MD LAB POCT ORDERABLES - DEVICE Final Result Performing Organization Address City/[facility]/ZIP Co de Phone Number [facility] [place] [address] * Potassium, whole blood (12/17/2024 11:54 AM CDT) Potassium, bld 4.5 3.3 - 4.9 mmol/L Blood 12/17/2024 11:5 4 AM CDT 12/17/2024 12:03 PM CDT Result [facility] Ignacio Brown NP LAB BLOOD ORDERABLES Final Result Performing Organization Address City/[facility]/ZIP Co de Phone Number [facility] [place] [address] * POCT glucose (12/17/2024 11:54 AM CDT) Glucose, POC 134 70 - 199 mg/dL Blood 12/17/2024 11:5 4 AM CDT 12/17/2024 11:54 AM CDT Result [facility] Indiana Mortensen MD LAB POCT ORDERABLES - DEVICE Final Result Performing Organization Address City/[facility]/ZIP Co de Phone Number [facility] [place] [address] * (ABNORMAL) Blood gas, arterial (12/17/2024 11:54 AM CDT) pH, Art 7.39 7.35 - 7.45 PCO2, Arterial 32(L) 35 - 45 mmHg [facility] PO2, Arterial 157(H) 83 - 108 mmHg [facility] HCO3 Art (Calculated) 20 20 - 30 mmol/L [facility] BE, art -5 mmol/L [facility] Comment: Interpretive Data No Reference Range Established Current Interpretive Data was last revised on 2017 O2 Sat Art (Measured) 100(H) 90 - 95 % [facility] Blood 12/17/2024 11:5 4 AM CDT 12/17/2024 12:03 PM CDT us Indiana Mortensen MD LAB BLOOD ORDERABLES Final Re sult [facility] Department [place] [address] * XR Abdomen 1 View AP (12/17/2024 [...] stomach. Electronically signed by: Michelle Negro M.D. us Josr AUGUSTIN IMG XR PROCEDURES Final Result * POCT glucose (12/17/2024 8:58 AM CDT) Glucose, POC 125 70 - 199 mg/dL Blood 12/17/2024 8:58 AM CDT 12/17/2024 8:58 AM CDT Indiana Mortensen MD LAB POCT ORDERABLES - DEVICE Final Result [facility] Department [place] [address] * Critical Care (12/17/2024 7:19 AM CDT) [...] plan with the ICU team and other medical/solutions consultant staff, making frequent assessments and decisions [...] PCO2, Arterial 31(L) 35 - 45 mmHg [facility] PO2, Arterial 157(H) 83 - 108 mmHg [facility] HCO3 Art (Calculated) 19(L) 20 - 30 mmol/L [facility] BE, art -6 mmol/L [facility] Comment: Interpretive Data No Reference Range Established Current Interpretive Data was last revised on 2017 O2 Sat Art (Measured) 100(H) 90 - 95 % [facility] Blood 12/17/2024 5:31 AM CDT 12/17/2024 5:51 AM CDT Ignacio Brown NP LAB BLOOD ORDERABLES Final Result Performing Organization Address City/[facility]/ZIP Co de Phone Number [facility] Department [place] [employer] [place] [address] * Potassium, whole blood (12/17/2024 5:04 AM CDT) Potassium, bld 4.7 3.3 - 4.9 mmol/L Blood 12/17/2024 5:04 AM CDT 12/17/2024 5:24 AM CDT Ignacio Brown NP LAB BLOOD ORDERABLES Final Result Performing Organization Address City/[facility] Co de Phone Number [facility] [place] [address] * Vancomycin level random (12/17/2024 1:48 AM CDT) Vancomycin random 10.5 mcg/mL Comment: Interpretive Data No reference ranges have been established for random drug levels. Current Interpretive Data was last revised on 2020. Blood 12/17/2024 1:48 AM CDT 12/17/2024 2:11 AM CDT us Sepideh Rees HAT LINING PASTER LAB BLOOD ORDERABLES Final Result Performing Organization Address City/[facility] Co de Phone Number [facility] [place] [address] * (ABNORMAL) eGFR (12/17/2024 12:12 AM CDT) eGFR 35(L) >=60 mL/min/1. 73 m2 Comment: [...] 12/17/2024 12:35 AM CDT us Ignacio Brown HAT LINING PASTER LAB BLOOD ORDERABLES Final Result Performing Organization Address City/[facility]/ZIP Co de Phone Number [facility] [place] [address] * (ABNORMAL) Protime-INR (12/17/2024 12:12 AM CDT) PT 15.0(H) 9.7 - 13.0 sec INR 1.38(H) 0.90 - 1.20 [facility] Comment: Interpretive data Oral anticoagulant therapeutic ranges: Venous thromboembolism prophylaxis or treatment: 2.0-3.0 CARDIOLOGY Standard range: 2.0-3.0 High-intensity range: 2.5-3.5 Refer to indication-specific guidelines for appropriate target ranges for prosthetic heart valve replacement. Current interpretive data was last revised on 2019. Blood 12/17/2024 12:1 2 AM CDT 12/17/2024 12:43 AM CDT us Ignacio Brown NP LAB BLOOD ORDERABLES Final Result [facility] Department [place] [address] * (ABNORMAL) CBC without differential (12/17/2024 12:12 AM CDT) Pathologist [facility] WBC 22.88(H) 3.80 - 9.90 K/cumm Hgb 8.0(L) 11.9 - 15.5 g/dL [facility] Hct 22.8(L) 35.6 - 45.5 % [facility] Plt 275 150 - 400 K/cumm [facility] MPV 9.2 9.1 - 12.3 fL [facility] RBC 2.61(L) 3.90 - 5.20 M/cumm [facility] MCV 87.4 81.3 - 96.4 fL [facility] MCH 30.7 27.1 - 33.3 pg [facility] MCHC 35.1 32.3 - 35.7 g/dL [facility] RDW CV 14.1 11.1 - 14.9 % [facility] RDW SD 44.1 35.7 - 48.1 fL [facility] NRBC abs 0.25(H) 0.00 - 0.01 K/cumm [facility] Blood 12/17/2024 12:1 2 AM CDT 12/17/2024 12:36 AM CDT Kika Simpson [place] LAB BLOOD ORDERABLES Fi nal Result Performing Organization Address [facility] Co de Phone Number [facility] [place] [address] * (ABNORMAL) Phosphorus (12/17/2024 12:12 AM CDT) Phosphorus, pl 6.4(H) 2.3 - 4.5 mg/dL Blood 12/17/2024 12:1 2 AM CDT 12/17/2024 12:35 AM CDT [facility] BLOOD [facility]ABLES Fi nal Result Performing Organization Address [facility] de Phone Number [facility] [place] [address] * (ABNORMAL) Magnesium (12/17/2024 12:12 AM CDT) Magnesium 2.6(H) 1.4 - 2.5 mg/dL Blood 12/17/2024 12:1 2 AM CDT 12/17/2024 12:35 AM CDT [facility] LAB BLOOD ORDERABLES Fi nal Result Performing Organization Address [facility] [place] [address] * (ABNORMAL) Hepatic function panel (12/17/2024 12:12 AM CDT) Bilirubin, total 0.7 0.1 - 1.2 mg/dL Bilirubin, direct 0.4(H) 0.1 - 0.3 mg/dL [facility] Protein, pl 5.5(L) 6.5 - 8.5 g/dL [facility] Albumin 3.0(L) 3.5 - 5.0 g/dL [facility] Alk phos 82 40 - 130 Units/L [facility] ALT 1,791(H) 7 - 45 Units/L [facility] Comment:Repeated on Dilution AST 2,012(H) 10 - 45 Units/L [facility] Comment:Repeated on Dilution Blood 12/17/2024 12:1 2 AM CDT 12/17/2024 12:35 AM CDT Ignacio Brown NP LAB BLOOD ORDERABLES Final Result [facility] Department [place] [address] * (ABNORMAL) Basic metabolic panel (12/17/2024 12:12 AM CDT) Sodium 135 135 - 145 mmol/L Potassium, pl 5.4(H) 3.3 - 4.9 mmol/L [facility] Chloride 104 97 - 110 mmol/L [facility] CO2 20(L) 22 - 32 mmol/L [facility] Anion gap 11 2 - 15 mmol/L [facility] BUN 32(H) 6 - 25 mg/dL [facility] Creatinine 1.65(H) 0.60 - 1.10 mg/dL [facility] Glucose 120 70 - 199 mg/dL [facility] Comment: Interpretive Data Fasting [...] 2022. Calcium 8.2(L) 8.5 - 10.3 mg/dL [facility] Blood 12/17/2024 12:1 2 AM CDT 12/17/2024 12:35 AM CDT us Ignacio Brown NP LAB BLOOD ORDERABLES Final Result [facility] [place] [address] * (ABNORMAL) Potassium, whole blood (12/16/2024 9:30 PM CDT) Potassium, bld 5.2(H) 3.3 - 4.9 mmol/L Blood 12/16/2024 9:30 PM CDT 12/16/2024 9:40 PM CDT Ignacio Brown NP LAB BLOOD ORDERABLES Final Result Performing Organization Address City/[facility] Co de Phone Number [facility] [place] [address] * (ABNORMAL) eGFR (12/16/2024 9:30 PM CDT) eGFR 34(L) >=60 mL/min/1. 73 m2 Comment: [...] BLOOD ORDERABLES Final Result Performing Organization Address City/[facility]/ZIP Co de Phone Number [facility] [place] [address] * (ABNORMAL) Blood gas, arterial (12/16/2024 9:30 PM CDT) pH, Art 7.34(L) 7.35 - 7.45 PCO2, Arterial 34(L) 35 - 45 mmHg [facility] PO2, Arterial 176(H) 83 - 108 mmHg [facility] HCO3 Art (Calculated) 19(L) 20 - 30 mmol/L [facility] BE, art -6 mmol/L [facility] Comment: Interpretive Data No Reference Range Established Current Interpretive Data was last revised on 2017 O2 Sat Art (Measured) 100(H) 90 - 95 % [facility] Blood 12/16/2024 9:30 PM CDT 12/16/2024 9:40 PM CDT Ignacio Brown H[employer] LAB BLOOD ORDERABLES Final Result Performing Organization Address City/[facility] Co de Phone Number ALEX [facility] Department [place] [address] * (ABNORMAL) Basic metabolic panel (12/16/2024 9:30 PM CDT) Sodium 136 135 - 145 mmol/L Potassium, pl 5.5(H) 3.3 - 4.9 mmol/L [facility] Chloride 105 97 - 110 mmol/L [facility] CO2 20(L) 22 - 32 mmol/L [facility] Anion gap 11 2 - 15 mmol/L [facility] BUN 30(H) 6 - 25 mg/dL [facility] Creatinine 1.69(H) 0.60 - 1.10 mg/dL [facility] Glucose 120 70 - 199 mg/dL [facility] Comment: Interpretive Data Fasting [...] 2022. Calcium 8.3(L) 8.5 - 10.3 mg/dL [facility] Blood 12/16/2024 9:30 PM CDT 12/16/2024 9:43 PM CDT us Ignacio Brown NP LAB BLOOD ORDERABLES Final Result Performing Organization Address City/[facility]/ZIP Co de Phone Number [facility] Department [place] [address] * POCT glucose (12/16/2024 8:39 PM CDT) [facility] Glucose, POC 122 70 - 199 mg/dL Blood 12/16/2024 8:39 PM CDT 12/16/2024 8:39 PM CDT us Indiana Mortensen MD LAB POCT ORDERABLES - DEVICE Final Result Performing Organization Address City/[facility]/ZIP Co de Phone Number [facility] Department [place] [address] * XR Chest 1 View (12/16/2024 7:20 [...] change. Electronically signed by: Elliott Davis M.D. Alecia Acosta NP IMG XR PROCEDURES [...] plan with the ICU team and other medical/solutions consultant staff, making frequent assessments and decisions [...] documenting in the medical record Ignacio Brown HAT LINING PASTER IN CLINIC/BEDSIDE ORDERABL ES Final Result * (ABNORMAL) Potassium, whole blood (12/16/2024 5:10 PM CDT) [facility] Potassium, bld 5.3(H) 3.3 - 4.9 mmol/L Blood 12/16/2024 5:10 PM CDT 12/16/2024 5:21 PM CDT Angela Cox NP LAB BLOOD ORDERABLES Final Result Performing Organization Address [facility]/ZIP Co de Phone Number [facility] Department [place] [address] * POCT glucose (12/16/2024 5:10 PM CDT) [facility] Glucose, POC 130 70 - 199 mg/dL Blood 12/16/2024 5:10 PM CDT 12/16/2024 5:10 PM CDT Indiana Mortensen MD LAB POCT ORDERABLES - DEVICE Final Result [facility] [place] [address] * (ABNORMAL) Blood gas, arterial (12/16/2024 5:10 PM CDT) [facility] pH, Art 7.27(L) 7.35 - 7.45 PCO2, Arterial 43 35 - 45 mmHg [facility] PO2, Arterial 159(H) 83 - 108 mmHg [facility] HCO3 Art (Calculated) 20 20 - 30 mmol/L [facility] BE, art -7 mmol/L [facility] Comment: Interpretive Data No Reference Range Established Current Interpretive Data was last revised on 2017 O2 Sat Art (Measured) 99(H) 90 - 95 % [facility] Blood 12/16/2024 5:10 PM CDT 12/16/2024 5:21 PM CDT us Indiana Mortensen MD LAB BLOOD ORDERABLES Final Re sult Performing Organization Address City/[facility]/ZIP Co de Phone Number [facility] Department [place] [address] * (ABNORMAL) Potassium, whole blood (12/16/2024 1:55 PM CDT) Potassium, bld 5.5(H) 3.3 - 4.9 mmol/L Blood 12/16/2024 1:55 PM CDT 12/16/2024 2:05 PM CDT us Sepideh Rees NP LAB BLOOD ORDERABLES Final Result Performing Organization Address City/[facility] Co de Phone Number [facility] Department [place] [address] * (ABNORMAL) POC Blood Gas and Chemistries, Arterial - (12/16/2024 1:17 PM CDT) pH, Art POC 7.25(L) 7.35 - 7.45 pCO2, Art POC 44 35 - 45 mmHg [facility] pO2, Art POC 147(H) 83 - 108 mmHg [facility] Na, POC 134(L) 135 - 145 mmol/L [facility] K POC 5.8(H) 3.3 - 4.9 mmol/L [facility] Comment: Interpretive Data Not all point of care methods assess for hemolysis. Confirm with instrument and retest K+ if not consistent with clinical signs and symptoms. Current Interpretive Data was last revised on 2023. Cl, POC 107 97 - 110 mmol/L [facility] Ionized Ca, POC 4.71 4.50 - 5.10 mg/dL [facility] Glucose, POC 131 70 - 199 mg/dL [facility] Lactate POC 1.3 0.7 - 2.0 mmol/L [facility] SO2 (chandra) arterial 99(H) 90 - 95 % [facility] Base excess, POC -7.5 mmol/L [facility] HCO3, Art POC 19(L) 20 - 30 mmol/L [facility] Hct, POC 28.0(L) 36.3 - 45.3 % [facility] Total Hb, POC 9.4(L) 11.9 - 15.5 g/dL [facility] Blood 12/16/2024 1:17 PM CDT 12/16/2024 1:17 PM CDT us Indiana Mortensen MD LAB POCT ORDERABLES - DEVICE Final Result [facility] Department [place] [address] * (ABNORMAL) POC Blood Gas and Chemistries, Arterial - (12/16/2024 12:33 PM CDT) pH, Art POC 7.24(L) 7.35 - 7.45 pCO2, Art POC 48(H) 35 - 45 mmHg [facility] pO2, Art POC 138(H) 83 - 108 mmHg [facility] Na, POC 135 135 - 145 mmol/L [facility] K POC 5.7(H) 3.3 - 4.9 mmol/L [facility] Comment: Interpretive Data Not all point of care methods assess for hemolysis. Confirm with instrument and retest K+ if not consistent with clinical signs and symptoms. Current Interpretive Data was last revised on 2023. Cl, POC 106 97 - 110 mmol/L [facility] Ionized Ca, POC 4.74 4.50 - 5.10 mg/dL [facility] Glucose, POC 134 70 - 199 mg/dL [facility] Lactate POC 1.2 0.7 - 2.0 mmol/L [facility] SO2 (chandra) arterial 100(H) 90 - 95 % [facility] Base excess, POC -6.6 mmol/L [facility] HCO3, Art POC 21 20 - 30 mmol/L [facility] Hct, POC 28.0(L) 36.3 - 45.3 % [facility] Total Hb, POC 9.2(L) 11.9 - 15.5 g/dL [facility] Blood 12/16/2024 12:3 3 PM CDT 12/16/2024 12:33 PM CDT us Indiana Mortensen MD LAB POCT ORDERABLES - DEVICE Final Result [facility] Department [place] [address] * XR Chest 1 View (12/16/2024 11:52 [...] Electronically signed by: Shala Eldridge M.D. us Sepideh Rees NP IMG XR PROCEDURES Fi nal Result [...] MD LAB BLOOD ORDERABLES Final Re sult [facility] [place] [address] * (ABNORMAL) CBC without differential (12/16/2024 11:21 AM CDT) WBC 35.53(H) 3.80 - 9.90 K/cumm Hgb 8.8(L) 11.9 - 15.5 g/dL [facility] Hct 26.1(L) 35.6 - 45.5 % [facility] Plt 371 150 - 400 K/cumm [facility] MPV 9.0(L) 9.1 - 12.3 fL [facility] RBC 2.93(L) 3.90 - 5.20 M/cumm [facility] MCV 89.1 81.3 - 96.4 fL [facility] MCH 30.0 27.1 - 33.3 pg [facility] MCHC 33.7 32.3 - 35.7 g/dL [facility] RDW CV 13.7 11.1 - 14.9 % [facility] RDW SD 43.8 35.7 - 48.1 fL [facility] NRBC abs 1.14(H) 0.00 - 0.01 K/cumm [facility] Blood 12/16/2024 11:2 1 AM CDT 12/16/2024 11:33 AM CDT us Indiana Mortensen MD LAB BLOOD ORDERABLES Final Re sult Performing Organization Address City/[facility] Co de Phone Number [facility] Department [place] [address] * (ABNORMAL) Phosphorus (12/16/2024 11:21 AM CDT) Phosphorus, pl 6.9(H) 2.3 - 4.5 mg/dL Blood 12/16/2024 11:2 1 AM CDT 12/16/2024 11:32 AM CDT Indiana Mortensen MD LAB BLOOD ORDERABLES [facility] [place] [address] * (ABNORMAL) Magnesium (12/16/2024 11:21 AM CDT) Pathologist [facility] Magnesium 2.7(H) 1.4 - 2.5 mg/dL Blood 12/16/2024 11:2 1 AM CDT 12/16/2024 11:32 AM CDT Indiana Mortensen MD LAB BLOOD ORDERABLES Final Re sult [facility] Department [place] [address] * (ABNORMAL) Basic metabolic panel (12/16/2024 11:21 AM CDT) Pathologist [facility] Sodium 135 135 - 145 mmol/L Potassium, pl 5.5(H) 3.3 - 4.9 mmol/L [facility] Chloride 103 97 - 110 mmol/L [facility] CO2 21(L) 22 - 32 mmol/L [facility] Anion gap 11 2 - 15 mmol/L [facility] BUN 27(H) 6 - 25 mg/dL [facility] Creatinine 1.71(H) 0.60 - 1.10 mg/dL [facility] Comment:Reviewed Glucose 140 70 - 199 mg/dL [facility] Comment: Interpretive Data Fasting [...] 2022. Calcium 8.7 8.5 - 10.3 mg/dL [facility] Blood 12/16/2024 11:2 1 AM CDT 12/16/2024 11:32 AM CDT Indiana Mortensen MD LAB BLOOD ORDERABLES Final Re sult [facility]LEX [facility] Department [place] [address] * (ABNORMAL) POC Blood Gas and Chemistries, Arterial - (12/16/2024 11:12 AM CDT) pH, Art POC 7.25(L) 7.35 - 7.45 pCO2, Art POC 45 35 - 45 mmHg [facility] pO2, Art POC 324(H) 83 - 108 mmHg [facility] Na, POC 135 135 - 145 mmol/L [facility] K POC 5.5(H) 3.3 - 4.9 mmol/L [facility] Comment: Interpretive Data Not all point of care methods assess for hemolysis. Confirm with instrument and retest K+ if not consistent with clinical signs and symptoms. Current Interpretive Data was last revised on 2023. Cl, POC 107 97 - 110 mmol/L [facility] Ionized Ca, POC 4.78 4.50 - 5.10 mg/dL [facility] Glucose, POC 132 70 - 199 mg/dL [facility] Lactate POC 1.2 0.7 - 2.0 mmol/L [facility] SO2 (chandra) arterial 100(H) 90 - 95 % [facility] Base excess, POC -7.2 mmol/L [facility] HCO3, Art POC 20 20 - 30 mmol/L [facility] Hct, POC 28.0(L) 36.3 - 45.3 % [facility] Total Hb, POC 9.3(L) 11.9 - 15.5 g/dL [facility] Blood 12/16/2024 11:1 2 AM CDT 12/16/2024 11:12 AM CDT Indiana Mortensen MD LAB POCT ORDERABLES - DEVICE Final Result [facility] Department [place] [address] * Critical Care (12/16/2024 8:07 AM CDT) Narrative Esdras Queevdo MD - 12/16/2024 8:07 AM CDT Esdras [...] plan with the ICU team and other medical/solutions consultant staff, making frequent assessments and decisions [...] in the medical record us Sepideh Rees NP IN CLINIC/BEDSIDE OR DERABLES Final Result * (ABNORMAL) Lactate, whole blood (12/16/2024 8:00 AM CDT) Lactate, bld 2.2(H) 0.7 - 2.0 mmol/L Blood 12/16/2024 8:00 AM CDT 12/16/2024 8:19 AM CDT us Indiana Mortensen MD LAB BLOOD ORDERABLES Final Re sult [facility] Department [place] [address] * (ABNORMAL) Blood gas, arterial (12/16/2024 8:00 AM CDT) pH, Art 7.33(L) 7.35 - 7.45 PCO2, Arterial 39 35 - 45 mmHg [facility] PO2, Arterial 203(H) 83 - 108 mmHg [facility] HCO3 Art (Calculated) 21 20 - 30 mmol/L [facility] BE, art -5 mmol/L [facility] Comment: Interpretive Data No Reference Range Established Current Interpretive Data was last revised on 2017 O2 Sat Art (Measured) 99(H) 90 - 95 % [facility] Blood 12/16/2024 8:00 AM CDT 12/16/2024 8:19 AM CDT Indiana Mortensen MD LAB BLOOD ORDERABLES Final Re sult Performing Organization Address City/[facility]/ZIP Co de Phone Number [facility] [place] [address] * POCT glucose (12/16/2024 7:54 AM CDT) Glucose, POC 131 70 - 199 mg/dL Blood 12/16/2024 7:54 AM CDT 12/16/2024 7:54 AM CDT Indiana Mortensen MD LAB POCT ORDERABLES - DEVICE Final Result [facility] [place] [address] * (ABNORMAL) POC Blood Gas and Chemistries, Arterial - (12/16/2024 5:59 AM CDT) pH, Art POC 7.33(L) 7.35 - 7.45 pCO2, Art POC 34(L) 35 - 45 mmHg [facility] pO2, Art POC 293(H) 83 - 108 mmHg [facility] Na, POC 136 135 - 145 mmol/L [facility] K POC 4.7 3.3 - 4.9 mmol/L [facility] Comment: Interpretive Data Not all point of care methods assess for hemolysis. Confirm with instrument and retest K+ if not consistent with clinical signs and symptoms. Current Interpretive Data was last revised on 2023. Cl, POC 109 97 - 110 mmol/L [facility] Ionized Ca, POC 4.65 4.50 - 5.10 mg/dL [facility] Glucose, POC 162 70 - 199 mg/dL [facility] Lactate POC 2.5(H) 0.7 - 2.0 mmol/L [facility] SO2 (chandra) arterial 100(H) 90 - 95 % [facility] Base excess, POC -7.3 mmol/L [facility] HCO3, Art POC 18(L) 20 - 30 mmol/L [facility] Hct, POC 27.0(L) 36.3 - 45.3 % [facility] Total Hb, POC 9.1(L) 11.9 - 15.5 g/dL [facility] Blood 12/16/2024 5:59 AM CDT 12/16/2024 5:59 AM CDT us Indiana Mortensen MD LAB POCT ORDERABLES - DEVICE Final Result [facility] Department [place] [address] * (ABNORMAL) POC Blood Gas and Chemistries, Arterial - (12/16/2024 3:52 AM CDT) pH, Art POC 7.34(L) 7.35 - 7.45 pCO2, Art POC 27(L) 35 - 45 mmHg [facility] pO2, Art POC 168(H) 83 - 108 mmHg [facility] Na, POC 134(L) 135 - 145 mmol/L [facility] K POC 5.3(H) 3.3 - 4.9 mmol/L [facility] Comment: Interpretive Data Not all point of care methods assess for hemolysis. Confirm with instrument and retest K+ if not consistent with clinical signs and symptoms. Current Interpretive Data was last revised on 2023. Cl, POC 110 97 - 110 mmol/L [facility] Ionized Ca, POC 4.84 4.50 - 5.10 mg/dL [facility] Glucose, POC 238(H) 70 - 199 mg/dL [facility] Lactate POC 4.3(C) 0.7 - 2.0 mmol/L [facility] SO2 (chandra) arterial Incalculable 90 - 95 % [facility] Base excess, POC -9.6 mmol/L [facility] HCO3, Art POC 15(L) 20 - 30 mmol/L [facility] Hct, POC Incalculable 36.3 - 45.3 % [facility] Total Hb, POC Incalculable 11.9 - 15.5 g/dL [facility] Blood 12/16/2024 3:52 AM CDT 12/16/2024 3:52 AM CDT Indiana Mortensen MD LAB POCT ORDERABLES - DEVICE Final Result [facility] Department [place] [address] * ECG 12 lead (12/16/2024 2:45 AM CDT) Pathologist [facility] Ventricular Rate EKG/Min 37 BPM [facility] Atrial Rate 41 BPM [facility] QRS-Interval (MSEC) 102 ms [facility] QT-Interval (MSEC) 570 ms [facility] QTc 447 ms [facility] R [place] 183 degrees [facility] T [place] 121 degrees [facility] Diagnosis Poor data quality, interpretation may be [...] now Present Confirmed by KAMILA MCKAY M.D ([id number]) on 12/16/2024 11:16:23 AM [facility] 12/16/2024 2:45 AM CDT 12/16/2024 11:16 AM CDT us Kika Aparicio Calvin DNP ECG ORDERABLES Final R esult [facility] * (ABNORMAL) POC Blood Gas and Chemistries, Arterial - (12/16/2024 2:43 AM CDT) pH, Art POC 7.33(L) 7.35 - 7.45 pCO2, Art POC 34(L) 35 - 45 mmHg [facility] pO2, Art POC 153(H) 83 - 108 mmHg [facility] Na, POC 136 135 - 145 mmol/L [facility] K POC 4.8 3.3 - 4.9 mmol/L [facility] Comment: Interpretive Data Not all point of care methods assess for hemolysis. Confirm with instrument and retest K+ if not consistent with clinical signs and symptoms. Current Interpretive Data was last revised on 2023. Cl, POC 106 97 - 110 mmol/L [facility] Ionized Ca, POC 5.02 4.50 - 5.10 mg/dL [facility] Glucose, POC 240(H) 70 - 199 mg/dL [facility] Lactate POC 3.3(H) 0.7 - 2.0 mmol/L [facility] SO2 (chandra) arterial 100(H) 90 - 95 % [facility] Base excess, POC -7.3 mmol/L [facility] HCO3, Art POC 18(L) 20 - 30 mmol/L [facility] Hct, POC 28.0(L) 36.3 - 45.3 % [facility] Total Hb, POC 9.3(L) 11.9 - 15.5 g/dL [facility] Blood 12/16/2024 2:43 AM CDT 12/16/2024 2:43 AM CDT us Indiana Mortensen MD LAB POCT ORDERABLES - DEVICE Final Result [facility] Department [place] [address] * Respiratory pathogen panel Tracheal aspirate (12/16/2024 1:45 AM CDT) Pathologist [facility] Influenza A RNA Not Detected Not Detected Influenza B RNA Not Detected Not Detected [facility] RSV RNA Not Detected Not Detected [facility] COVID-19 RNA Not Detected Not Detected [facility] Coronavirus 229E RNA Not Detected Not Detected [facility] Coronavirus HKU1 RNA Not Detected Not Detected [facility] Coronavirus NL63 RNA Not Detected Not Detected [facility] Coronavirus OC43 RNA Not Detected Not Detected [facility] Adenovirus DNA Not Detected Not Detected [facility] Metapneumovirus RNA Not Detected Not Detected [facility] Rhinovirus/Enterov irus RNA Not Detected Not Detected [facility] Parainfluenza 1 RNA Not Detected Not Detected [facility] Parainfluenza 2 RNA Not Detected Not Detected [facility] Parainfluenza 3 RNA Not Detected Not Detected [facility] Parainfluenza 4 RNA Not Detected Not Detected [facility] B. pertussis DNA Not Detected Not Detected [facility] B. parapertussis DNA Not Detected Not Detected [facility] C. pneumoniae DNA Not Detected Not Detected [facility] M. pneumoniae DNA Not Detected Not Detected [facility] Tracheal aspirate 12/16/2024 1:45 AM CDT 12/16/2024 8:16 AM CDT Narrative [facility] - 12/16/2024 9:13 AM CDT Is the Patient experiencing symptoms consistent with COVID?->Yes Surveillance testing for transplant patient?->No Interpretive Data The Lumexis FilmArray Respiratory Panel (RP2.1) assay is a [...] assay has FDA clearance for testing of HAT LINING PASTER swabs. The performance of additional specimen types has been assessed by the performing laboratory. The performance characteristics of this assay have been determined by [facility] Molecular Infectious Disease Laboratory. Current interpretive data was last revised on 22. Gia Mercedes [employer] LAB MICROBIOLOGY - GENERAL ORD ERABLES Final Result ALEX [facility] [place] [address] * Blood culture Blood (12/16/2024 1:45 AM CDT) Report Final Report: No growth Blood 12/16/2024 1:45 AM CDT 12/16/2024 2:16 AM CDT Narrative ALEX [facility] - 12/20/2024 7:00 AM CDT Collection->Peripheral [...] performance characteristics have been verified by the [facility]. For questions about this culture, contact the Microbiology Laboratory at [phone]. Interpretive data was last revised on 24. Gia Mercedes [employer] LAB MICROBIOLOGY - GENERAL ORD ERABLES Final Result ALEX [facility] [place] [address] * Blood culture Blood (12/16/2024 1:45 AM CDT) Report Final Report: No growth Blood 12/16/2024 1:45 AM CDT 12/16/2024 2:16 AM CDT Andrew ALEX [facility]KE[facility] - 12/20/2024 7:00 AM CDT [...] performance characteristics have been verified by the [facility]. For questions about this culture, contact the Microbiology Laboratory at [phone]. Interpretive data was last revised on 24. Gia Mercedes [employer] LAB MICROBIOLOGY - GENERAL ORD ERABLES Final Result ALEX [facility] [place] [address] * eGFR (12/15/2024 10:37 PM CDT) eGFR [...] PM CDT 12/15/2024 11:03 PM CDT Angela Corona Brooke [employer] LAB BLOOD ORDERABLES Final Result Performing Organization Address [facility]/ZIP Co de Phone Number [facility] Department [place] [address] * (ABNORMAL) Calcium, ionized (12/15/2024 10:37 PM CDT) [facility] Calcium, Ionized 4.44(L) 4.50 - 5.10 mg/dL Blood 12/15/2024 10:3 7 PM CDT 12/15/2024 10:46 PM CDT Gia Mercedes [employer] LAB BLOOD ORDERABLES Final Res ult Performing Organization Address City/[facility] Co de Phone Number [facility] Department [place] [address] * (ABNORMAL) CBC without differential (12/15/2024 10:37 PM CDT) [facility] WBC 28.29(H) 3.80 - 9.90 K/cumm Hgb 9.1(L) 11.9 - 15.5 g/dL [facility] Hct 26.9(L) 35.6 - 45.5 % [facility] Plt 443(H) 150 - 400 K/cumm [facility] MPV 8.9(L) 9.1 - 12.3 fL [facility] RBC 3.05(L) 3.90 - 5.20 M/cumm [facility] MCV 88.2 81.3 - 96.4 fL [facility] MCH 29.8 27.1 - 33.3 pg [facility] MCHC 33.8 32.3 - 35.7 g/dL [facility] RDW CV 14.1 11.1 - 14.9 % [facility] RDW SD 44.0 35.7 - 48.1 fL [facility] NRBC abs 0.37(H) 0.00 - 0.01 K/cumm [facility] Blood 12/15/2024 10:3 7 PM CDT 12/15/2024 10:54 PM CDT Angela Cox [employer] LAB BLOOD ORDERABLES Final Result [facility] Department [place] [address] * Phosphorus (12/15/2024 10:37 PM CDT) Pathologist [facility] Phosphorus, pl 4.5 2.3 - 4.5 mg/dL Blood 12/15/2024 10:3 7 PM CDT 12/15/2024 10:46 PM CDT Angela [facility] [employer] LAB BLOOD ORDERABLES Final Result Performing Organization Address City/[facility]/ZIP Co de Phone Number [facility] Department [place] [address] * Magnesium (12/15/2024 10:37 PM CDT) Pathologist [facility] Magnesium 2.1 1.4 - 2.5 mg/dL Blood 12/15/2024 10:3 7 PM CDT 12/15/2024 10:46 PM CDT Gia Mercedes [employer] LAB BLOOD ORDERABLES Final Res ult Performing Organization Address City/[facility]/ZIP Co de Phone Number [facility] [place] [address] * Basic metabolic panel (12/15/2024 10:37 PM CDT) Sodium 136 135 - 145 mmol/L Potassium, pl 4.4 3.3 - 4.9 mmol/L [facility] Chloride 102 97 - 110 mmol/L [facility] CO2 23 22 - 32 mmol/L [facility] Anion gap 11 2 - 15 mmol/L [facility] BUN 21 6 - 25 mg/dL [facility] Creatinine 0.85 0.60 - 1.10 mg/dL [facility] Glucose 152 70 - 199 mg/dL [facility] Comment: Interpretive Data Fasting [...] 2022. Calcium 8.5 8.5 - 10.3 mg/dL [facility] Blood 12/15/2024 10:3 7 PM CDT 12/15/2024 10:46 PM CDT Angela [facility] [employer] LAB BLOOD ORDERABLES Final Result [facility] [place] [address] * (ABNORMAL) Urinalysis reflex to microscopic and culture Urine (12/15/2024 9:20 PM CDT) Color, ur Straw Yellow Clarity, ur Clear Clear [facility] Specific gravity, ur 1.018 1.003 - 1.030 [facility] pH, urine 5.5 [facility] Comment: Interpretive Data U rine pH is affected by diet, medications, systemic acid-base disturbances, and renal tubular function. pH may affect urinary stone formation. For example, urine pH below 6.0 may help reduce the tendency for calcium phosphate stones and pH greater than 6.0 may reduce the tendency for uric acid stone formation. Source: [facility] [employer] Current Interpretive Data was last revised on 2017 Protein, ur ql Negative Negative [facility] Glucose, ur ql Negative Negative [facility] Ketones, ur Negative Negative [facility] Bilirubin, ur Negative Negative [facility] Blood, ur Trace(A) Negative [facility] Urobilinogen, ur <2.0 <2.0 mg/dL [facility] Nitrite, ur Negative Negative [facility] Leukocyte esterase, ur Negative Negative [facility] UA reflex comment Reflex to microscopic UA will be performed. [facility] Urine 12/15/2024 9:20 PM CDT 12/15/2024 10:23 PM CDT Narrative [facility] - 12/15/2024 10:31 PM CDT Prior to cardiac device us Shala Oliva [employer] LAB MICROBIOLOGY - GENERAL O RDERABLES Final Result Performing Organization Address City/[facility] Co de Phone Number [facility] Department [place] [address] * (ABNORMAL) Urinalysis, microscopic only (12/15/2024 9:20 PM CDT) WBC, ur 0-5 0 - 5 /HPF RBC, ur 0-2 0 - 2 /HPF [facility] Epithelial cells, squamous, ur 1-5 0 - 5 /HPF [facility] Mucous, ur Present(A) [facility] Culture Reflex Comment Reflex conditions for urine culture (WBC >10) not met. [facility] Urine 12/15/2024 9:20 PM CDT 12/15/2024 10:23 PM CDT Shala Oliva NP LAB URINE ORDERABLES Final R esult Performing Organization Address City/[facility]/ZIP Co de Phone Number [facility] Department [place] [address] * (ABNORMAL) POC Blood Gas and Chemistries, Arterial - (12/15/2024 9:06 PM CDT) pH, Art POC 7.38 7.35 - 7.45 pCO2, Art POC 39 35 - 45 mmHg [facility] pO2, Art POC 154(H) 83 - 108 mmHg [facility] Na, POC 138 135 - 145 mmol/L [facility] K POC 4.2 3.3 - 4.9 mmol/L [facility] Comment: Interpretive Data Not all point of care methods assess for hemolysis. Confirm with instrument and retest K+ if not consistent with clinical signs and symptoms. Current Interpretive Data was last revised on 2023. Cl, POC 107 97 - 110 mmol/L [facility] Ionized Ca, POC 4.62 4.50 - 5.10 mg/dL [facility] Glucose, POC 144 70 - 199 mg/dL [facility] Lactate POC 0.9 0.7 - 2.0 mmol/L [facility] SO2 (chandra) arterial 99(H) 90 - 95 % [facility] Base excess, POC -1.8 mmol/L [facility] HCO3, Art POC 23 20 - 30 mmol/L [facility] Hct, POC 28.0(L) 36.3 - 45.3 % [facility] Total Hb, POC 9.4(L) 11.9 - 15.5 g/dL [facility] Blood 12/15/2024 9:06 PM CDT 12/15/2024 9:06 PM CDT Indiana Mortensen MD LAB POCT ORDERABLES - DEVICE Final Result Performing Organization Address [facility]/ZIP Co de Phone Number [facility] Department [place] [address] * POCT glucose (12/15/2024 8:46 PM CDT) [facility] Glucose, POC 141 70 - 199 mg/dL Blood 12/15/2024 8:46 PM CDT 12/15/2024 8:46 PM CDT Indiana Mortensen MD LAB POCT ORDERABLES - DEVICE Final Result Performing Organization Address City/[facility]/ZIP Co de Phone Number [facility] Department [place] [address] * (ABNORMAL) Troponin I high-sensitivity 6-hour (12/15/2024 7:45 PM CDT) Trop I hs 4,224(C) <=17 ng/L Comment: Previous critical value noted within 48 hours ago. Interpretive Data For further hscTnI resources including the diagnostic algorithm and an aid in interpretation, copy and paste this link: https://bjhlab.testcatalog.org/show/hsTrop-1 Current Interpretive Data last revised 2020. Trop I hs pct delta -3 % [facility] Trop I hs interp Insignificant [facility] Blood 12/15/2024 7:45 PM CDT 12/15/2024 8:10 PM CDT us Gema Bernabe NP LAB BLOOD ORDERABLES Final Re sult Performing Organization Address City/[facility]/ZIP Co de Phone Number [facility] Department [place] [address] * Type and screen (12/15/2024 7:45 PM CDT) Pathologist [facility] Sarah, indirect Negative ABO Rh B Negative [facility] Blood 12/15/2024 7:45 PM CDT 12/15/2024 7:59 PM CDT Narrative [facility] - 12/15/2024 9:15 PM CDT Has the patient had Daratumumab or Isatuximab in the past 6 months?->Unknown us Indiana Mortensen MD LAB BLOOD BANK TEST ORDERABLE S Final Result [facility] [place] [address] * Critical Care (12/15/2024 7:25 PM CDT) [...] plan with the ICU team and other medical/solutions consultant staff, making frequent assessments and decisions [...] signed by: Tracy Snider M.D. Gema Bernabe HAT LINING PASTER IMG XR PROCEDURES Final Resul t * [...] Felipe Souza MD, PHD us Elizabeth Zaldivar HAT LINING PASTER IMG XR PROCEDURES Final R esult * (ABNORMAL) POC Blood Gas and Chemistries, Arterial - (12/15/2024 5:10 PM CDT) pH, Art POC 7.27(L) 7.35 - 7.45 pCO2, Art POC 49(H) 35 - 45 mmHg [facility] pO2, Art POC 239(H) 83 - 108 mmHg [facility] Na, POC 138 135 - 145 mmol/L [facility] K POC 3.8 3.3 - 4.9 mmol/L [facility] Comment: Interpretive Data Not all point of care methods assess for hemolysis. Confirm with instrument and retest K+ if not consistent with clinical signs and symptoms. Current Interpretive Data was last revised on 2023. Cl, POC 108 97 - 110 mmol/L [facility] Ionized Ca, POC 4.67 4.50 - 5.10 mg/dL [facility] Glucose, POC 152 70 - 199 mg/dL [facility] Lactate POC 1.1 0.7 - 2.0 mmol/L [facility] SO2 (chandra) arterial 100(H) 90 - 95 % [facility] Base excess, POC -4.4 mmol/L [facility] HCO3, Art POC 22 20 - 30 mmol/L [facility] Hct, POC 29.0(L) 36.3 - 45.3 % [facility] Total Hb, POC 9.5(L) 11.9 - 15.5 g/dL [facility] Blood 12/15/2024 5:10 PM CDT 12/15/2024 5:10 PM CDT us Indiana Mortensen MD LAB POCT ORDERABLES - DEVICE Final Result [facility] Department [place] [address] * (ABNORMAL) Troponin I high-sensitivity 2-hour (12/15/2024 4:03 PM CDT) Trop I hs 4,610(C) <=17 ng/L Comment: Previous critical value noted within 48 hours ago. Interpretive Data For further hscTnI resources including the diagnostic algorithm and an aid in interpretation, copy and paste this link: https://bjhlab.testcatalog.org/show/hsTrop-1 Current Interpretive Data last revised 2020. Trop I hs pct delta 5 % [facility] Trop I hs interp Equivocal [facility] Blood 12/15/2024 4:03 PM CDT 12/15/2024 4:09 PM CDT Gema Bernabe NP LAB BLOOD ORDERABLES Final Re sult [facility] Department [place] [address] * POCT glucose (12/15/2024 4:01 PM CDT) [facility] Glucose, POC 115 70 - 199 mg/dL Blood 12/15/2024 4:01 PM CDT 12/15/2024 4:01 PM CDT Indiana Mortensen MD LAB POCT ORDERABLES - DEVICE Final Result [facility] Department [place] [address] * Infection Prevention Justice auris PCR, surveillance Axilla/Groin (12/15/2024 2:27 PM CDT) [facility] Justice auris DNA Not Detected Not Detected [facility] Comment: Interpretive Data Testing performed by [facility] using the Stacie shirin 6800 Justice auris assay. This assay detects DNA from Justice auris using Real-Time PCR. This assay is laboratory developed and is not cleared by the [place] Food and Drug Administration. The performance characteristics have been verified by the [facility]. Axilla/Groin 12/15/2024 2:27 PM CDT 12/15/2024 3:06 PM CDT Narrative ALEX MCKEON - 12/16/2024 12:10 AM CDT Order placed by OPA due to ring surveillance. us Instant Order Generic Provider LAB MICROBIOLOGY - GENERAL ORDERABLES Final Result Performing Organization Address [facility] Co de Phone Number [facility] [place] [address] [facility] * (ABNORMAL) Troponin I high-sensitivity series (baseline, 2hr, 4hr, 6hr) (12/15/2024 2:24 PM CDT) Trop I hs 4,370(C) <=17 ng/L Comment: Interpretive Data For further hscTnI resources including the diagnostic algorithm and an aid in interpretation, copy and paste this link: https://bjhlab.testcatalog.org/show/hsTrop-1 Current Interpretive Data last revised 2020. Blood 12/15/2024 2:24 PM CDT 12/15/2024 3:08 PM CDT us Gema Bernabe NP LAB BLOOD ORDERABLES Final Re sult Performing Organization Address [facility] Co de Phone Number [facility] [place] [address] * Critical result callback Cardio chemistry (12/15/2024 2:24 PM CDT) Date Notified [id number] Time Notified 1548 ALEX MCKOEN Test name Trop I hs base ALEX MCKEON Called/Read Back Kalie MCKEON Credentials RN ALEX MCKEON Called By YARA MCKEON Blood 12/15/2024 2:24 PM CDT 12/15/2024 3:08 PM CDT us Gema Pearl Bernabe HAT LINING PASTER LAB BLOOD ORDERABLES Final Re sult [facility] Department [place] [address] * Continuous Video EEG (12/15/2024 2:11 PM CDT) Anatomical Region Laterality Modality EEG Narrative 12/15/2024 2:11 PM CDT Video-EEG Report Patient Name: Adi Flowers [facility] Record Number (MRN): [id number] [facility] Record: [id number] Date of (): 1960 Ordering Provider: Elo [...] digital EEG were recorded continuously with a [employer] EEG acquisition system. This was a 32 [...] AM CDT Narrative 12/15/2024 12:50 PM CDT [facility] [place] [address] Transthoracic Echocardiographic Report Patient Name: ADI FLOWERS M : 1960 (64y 1m) Gender: F Study Date: 12/15/2024 11:10:49 AM Ht(Inch): 63 Wt(Lb): 298.94 BSA: 2.46 Pecan Gatherer: Andreia Loera [facility] Location: [id number] Order Provider: GIA MERCEDES Heart Rate: 115 [...] Procedure Note Guy Cooley MD - 12/15/2024 [facility] [place] [address] Transthoracic Echocardiographic Report Patient Name: ADI FLOWERS M : 1960 (64y 1m) Gender: F Study Date: 12/15/2024 11:10:49 AM Ht(Inch): 63 Wt(Lb): 298.94 BSA: 2.46 Pecan Gatherer: Andreia Loera RDCS Location: [id number] Order Provider:GIA MERCEDES Heart Rate: 115 BMI: [...] 2 heart block. CONCLUSIONS: 1. S/p BioAVR, [place], 1-V CABG. 2. Normal left ventricular size [...] was sinus tachycardia. Incidental Findings: S/p BioAVR, Tavares, 1-V CABG. MEASUREMENTS: 2D/MM Value Range DopplerValue [...] * POCT glucose (12/15/2024 11:36 AM CDT) Glucose, POC 100 70 - 199 mg/dL Blood 12/15/2024 11:3 6 AM CDT 12/15/2024 11:36 AM CDT Indiana Mortensen MD LAB POCT ORDERABLES - DEVICE Final Result Performing Organization Address [facility] Co de Phone Number [facility] [place] [address] * POCT glucose (12/15/2024 8:33 AM CDT) Glucose, POC 152 70 - 199 mg/dL Blood 12/15/2024 8:33 AM CDT 12/15/2024 8:33 AM CDT Indiana Mortensen MD LAB POCT ORDERABLES - DEVICE Final Result Performing Organization Address [facility] Co de Phone Number [facility] [place] [address] * Critical Care (12/15/2024 7:16 AM CDT) Narrative Kopar, Piroska, MD - 12/15/2024 7:16 AM CDT Esdras [...] plan with the ICU team and other medical/solutions consultant staff, making frequent assessments and decisions [...] in the medical record us Gema Bernabe NP IN CLINIC/BEDSIDE ORDERABLES Final Result * POCT glucose (12/15/2024 4:05 AM CDT) Glucose, POC 166 70 - 199 mg/dL Blood 12/15/2024 4:05 AM CDT 12/15/2024 4:05 AM CDT us Indiana Mortensen MD LAB POCT ORDERABLES - DEVICE Final Result [facility] [place] [address] * eGFR (12/15/2024 12:05 AM CDT) eGFR [...] 12/15/2024 12:20 AM CDT us Angela Cox HAT LINING PASTER LAB BLOOD ORDERABLES Final Result ALEX [facility] Department of [employer] [place], [place] [id number] * POCT glucose (12/15/2024 12:05 AM CDT) Glucose, POC 155 70 - 199 mg/dL Blood 12/15/2024 12:0 5 AM CDT 12/15/2024 12:05 AM CDT us Indiana Mortensen MD LAB POCT ORDERABLES - DEVICE Final Result ALEX [facility] Department [place] [address] * (ABNORMAL) CBC without differential (12/15/2024 12:05 AM CDT) WBC 19.76(H) 3.80 - 9.90 K/cumm Hgb 8.4(L) 11.9 - 15.5 g/dL [facility] Hct 24.7(L) 35.6 - 45.5 % [facility] Plt 292 150 - 400 K/cumm [facility] MPV 9.2 9.1 - 12.3 fL [facility] RBC 2.79(L) 3.90 - 5.20 M/cumm [facility] MCV 88.5 81.3 - 96.4 fL [facility] MCH 30.1 27.1 - 33.3 pg [facility] MCHC 34.0 32.3 - 35.7 g/dL [facility] RDW CV 13.8 11.1 - 14.9 % [facility] RDW SD 44.5 35.7 - 48.1 fL [facility] NRBC abs 0.20(H) 0.00 - 0.01 K/cumm [facility] Blood 12/15/2024 12:0 5 AM CDT 12/15/2024 12:20 AM CDT Angela Cox HAT LINING PASTER LAB BLOOD ORDERABLES Final Result [facility] Department [place] [employer] [address] * (ABNORMAL) Phosphorus (12/15/2024 12:05 AM CDT) Phosphorus, pl 4.8(H) 2.3 - 4.5 mg/dL Blood 12/15/2024 12:0 5 AM CDT 12/15/2024 12:13 AM CDT Angela Cox HAT LINING PASTER LAB BLOOD ORDERABLES Final Result [facility] [place] [address] * Magnesium (12/15/2024 12:05 AM CDT) Magnesium 2.0 1.4 - 2.5 mg/dL Blood 12/15/2024 12:0 5 AM CDT 12/15/2024 12:13 AM CDT us Indiana Mortensen MD LAB BLOOD ORDERABLES Final Re sult Performing Organization Address City/[facility]/ZIP Co de Phone Number [facility] Department [place] [address] * (ABNORMAL) Basic metabolic panel (12/15/2024 12:05 AM CDT) [facility] Sodium 140 135 - 145 mmol/L Potassium, pl 3.9 3.3 - 4.9 mmol/L [facility] Chloride 104 97 - 110 mmol/L [facility] CO2 25 22 - 32 mmol/L [facility] Anion gap 11 2 - 15 mmol/L [facility] BUN 20 6 - 25 mg/dL [facility] Creatinine 0.72 0.60 - 1.10 mg/dL [facility] Glucose 138 70 - 199 mg/dL [facility] Comment: Interpretive Data Fasting [...] 2022. Calcium 8.3(L) 8.5 - 10.3 mg/dL [facility] Blood 12/15/2024 12:0 5 AM CDT 12/15/2024 12:13 AM CDT us Angela Cox NP LAB BLOOD ORDERABLES Final Result Performing Organization Address [facility]/ZIP Co de Phone Number [facility] Department [place] [address] * POCT glucose (12/14/2024 8:48 PM CDT) Glucose, POC 176 70 - 199 mg/dL Blood 12/14/2024 8:48 PM CDT 12/14/2024 8:48 PM CDT us Indiana Mortensen MD LAB POCT ORDERABLES - DEVICE Final Result ALEX [facility] Department [place] [address] * XR Chest 1 View (12/14/2024 7:24 [...] signed by: Sunny Child M.D. Alecia Acosta HAT LINING PASTER IMG XR PROCEDURES Final Result * Critical [...] plan with the ICU team and other medical/solutions consultant staff, making frequent assessments and decisions [...] Result * eGFR (12/14/2024 4:34 PM CDT) eGFR >90 >=60 mL/min/1. 73 m2 [...] ORDERABLES Brenda l Result Performing Organization Address City/[facility]/ZIP Co de Phone Number [facility] Department [place] [address] * POCT glucose (12/14/2024 4:34 PM CDT) [facility] Glucose, POC 168 70 - 199 mg/dL Blood 12/14/2024 4:34 PM CDT 12/14/2024 4:34 PM CDT Indiana Mortensen MD LAB POCT ORDERABLES - DEVICE Final Result Performing Organization Address [facility]/ZIP Co de Phone Number [facility] Department [place] [address] * (ABNORMAL) Basic metabolic panel (12/14/2024 4:34 PM CDT) [facility] Sodium 141 135 - 145 mmol/L Potassium, pl 3.8 3.3 - 4.9 mmol/L [facility] Chloride 105 97 - 110 mmol/L [facility] CO2 23 22 - 32 mmol/L [facility] Anion gap 13 2 - 15 mmol/L [facility] BUN 22 6 - 25 mg/dL [facility] Creatinine 0.73 0.60 - 1.10 mg/dL [facility] Glucose 151 70 - 199 mg/dL [facility] Comment: Interpretive Data Fasting [...] 2022. Calcium 8.2(L) 8.5 - 10.3 mg/dL [facility] Blood 12/14/2024 4:34 PM CDT 12/14/2024 6:27 PM CDT Elizabeth Zaldivar NP LAB BLOOD ORDERABLES Brenda l Result [facility] Department [place] [employer] [address] * POCT glucose (12/14/2024 12:43 PM CDT) Glucose, POC 151 70 - 199 mg/dL Blood 12/14/2024 12:4 3 PM CDT 12/14/2024 12:43 PM CDT Indiana Mortensen MD LAB POCT ORDERABLES - DEVICE Final Result [facility] Department [place] [address] * eGFR (12/14/2024 7:40 AM CDT) eGFR [...] CDT 12/14/2024 8:04 AM CDT Elizabeth Zaldivar HAT LINING PASTER LAB BLOOD ORDERABLES Brenda wharton Result [facility] Department [place] [address] * Basic metabolic panel (12/14/2024 7:40 AM CDT) Sodium 143 135 - 145 mmol/L Potassium, pl 4.2 3.3 - 4.9 mmol/L [facility] Chloride 106 97 - 110 mmol/L [facility] CO2 25 22 - 32 mmol/L [facility] Anion gap 12 2 - 15 mmol/L [facility] BUN 25 6 - 25 mg/dL [facility] Creatinine 0.77 0.60 - 1.10 mg/dL [facility] Glucose 135 70 - 199 mg/dL [facility] Comment: Interpretive Data Fasting [...] 2022. Calcium 8.8 8.5 - 10.3 mg/dL [facility] Blood 12/14/2024 7:40 AM CDT 12/14/2024 8:04 AM CDT Elizabeth Zaldivar NP LAB BLOOD ORDERABLES Brenda l Result [facility] Department [place] [address] * POCT glucose (12/14/2024 7:36 AM CDT) Glucose, POC 138 70 - 199 mg/dL Blood 12/14/2024 7:36 AM CDT 12/14/2024 7:36 AM CDT Indiana Mortensen MD LAB POCT ORDERABLES - DEVICE Final Result Performing Organization Address City/[facility] Co de Phone Number [facility] Department [place] [employer] [address] * eGFR (12/14/2024 4:57 AM CDT) eGFR [...] CDT 12/14/2024 5:10 AM CDT Gia Mercedes HAT LINING PASTER LAB BLOOD ORDERABLES Final Res ult Performing Organization Address City/State/[facility] Co de Phone Number [facility] [place] [address] * Lactate, whole blood (12/14/2024 4:57 AM CDT) Lactate, bld 1.2 0.7 - 2.0 mmol/L Blood 12/14/2024 4:57 AM CDT 12/14/2024 5:04 AM CDT Gia Erwin [place] HAT LINING PASTER LAB BLOOD ORDERABLES Final Res ult Performing Organization Address [facility] Co de Phone Number [facility] Department [place] [address] * (ABNORMAL) Phosphorus (12/14/2024 4:57 AM CDT) Phosphorus, pl 4.8(H) 2.3 - 4.5 mg/dL Blood 12/14/2024 4:57 AM CDT 12/14/2024 5:10 AM CDT Gia Erwin [place] HAT LINING PASTER LAB BLOOD ORDERABLES Final Res ult Performing Organization Address City/[facility] Co de Phone Number [facility] [place] [address] * Magnesium (12/14/2024 4:57 AM CDT) Magnesium 2.0 1.4 - 2.5 mg/dL Blood 12/14/2024 4:57 AM CDT 12/14/2024 5:10 AM CDT Gia Mercedes HAT LINING PASTER LAB BLOOD ORDERABLES Final Res ult Performing Organization Address [facility] Co de Phone Number [facility] [place] [address] * (ABNORMAL) Blood gas, arterial (12/14/2024 4:57 AM CDT) [facility] pH, Art 7.46(H) 7.35 - 7.45 PCO2, Arterial 36 35 - 45 mmHg [facility] PO2, Arterial 184(H) 83 - 108 mmHg [facility] HCO3 Art (Calculated) 26 20 - 30 mmol/L [facility] BE, art 2 mmol/L [facility] Comment: Interpretive Data No Reference Range Established Current Interpretive Data was last revised on 2017 O2 Sat Art (Measured) 100(H) 90 - 95 % [facility] Blood 12/14/2024 4:57 AM CDT 12/14/2024 5:04 AM CDT Gia Mercedes HAT LINING PASTER LAB BLOOD ORDERABLES Final Res ult Performing Organization Address [facility] Co de Phone Number [facility] [place] [address] * (ABNORMAL) Basic metabolic panel (12/14/2024 4:57 AM CDT) [facility] Sodium 141 135 - 145 mmol/L Potassium, pl 4.2 3.3 - 4.9 mmol/L [facility] Chloride 107 97 - 110 mmol/L [facility] CO2 26 22 - 32 mmol/L [facility] Anion gap 8 2 - 15 mmol/L [facility] BUN 24 6 - 25 mg/dL [facility] Creatinine 0.79 0.60 - 1.10 mg/dL [facility] Glucose 140 70 - 199 mg/dL [facility] Comment: Interpretive Data Fasting [...] 2022. Calcium 8.4(L) 8.5 - 10.3 mg/dL [facility] Blood 12/14/2024 4:57 AM CDT 12/14/2024 5:10 AM CDT Gia Mercedes HAT LINING PASTER LAB BLOOD ORDERABLES Final Res ult Performing Organization Address [facility]/ZIP Co de Phone Number [facility] Department [place] [address] * POCT glucose (12/14/2024 4:55 AM CDT) Glucose, POC 156 70 - 199 mg/dL Blood 12/14/2024 4:55 AM CDT 12/14/2024 4:55 AM CDT Indiana Mortensen MD LAB POCT ORDERABLES - DEVICE Final Result Performing Organization Address City/[facility]/ZIP Co de Phone Number [facility] Department [place] [address] * (ABNORMAL) POC Blood Gas and Chemistries, Arterial - (12/14/2024 2:44 AM CDT) pH, Art POC 7.44 7.35 - 7.45 pCO2, Art POC 34(L) 35 - 45 mmHg [facility] pO2, Art POC 135(H) 83 - 108 mmHg [facility] Na, POC 141 135 - 145 mmol/L [facility] K POC 3.9 3.3 - 4.9 mmol/L [facility] Comment: Interpretive Data Not all point of care methods assess for hemolysis. Confirm with instrument and retest K+ if not consistent with clinical signs and symptoms. Current Interpretive Data was last revised on 2023. Cl, POC 108 97 - 110 mmol/L [facility] Ionized Ca, POC 4.83 4.50 - 5.10 mg/dL [facility] Glucose, POC 162 70 - 199 mg/dL [facility] Lactate POC 2.2(H) 0.7 - 2.0 mmol/L [facility] SO2 (chandra) arterial 100(H) 90 - 95 % [facility] Base excess, POC -0.8 mmol/L [facility] HCO3, Art POC 23 20 - 30 mmol/L [facility] Hct, POC 25.0(L) 36.3 - 45.3 % [facility] Total Hb, POC 8.2(L) 11.9 - 15.5 g/dL [facility] Blood 12/14/2024 2:44 AM CDT 12/14/2024 2:44 AM CDT us Indiana Mortensen MD LAB POCT ORDERABLES - DEVICE Final Result [facility] Department [place] [address] * MA INSJ NON-TUNNELED CENTRAL VENOUS CATH AGE 7 YR/> (12/14/2024 1:52 AM CDT) Narrative Esdras Quevedo MD - 12/14/2024 1:52 AM CDT Esdras Quevedo MD 12/19/2024 2:18 PM Central Line Insertion Date/Time: 12/14/2024 1:52 AM Performed by: Hieu Silver MD Authorized by: Hieu Silver MD [place] Protocol: Informed consent: Unable to obtain due [...] IN CLINIC/BEDSIDE ORDERA BLES Final Result * MA INSJ NON-TUNNELED CENTRAL VENOUS CATH AGE 5 YR/> (12/14/2024 1:45 AM CDT) Narrative Esdras Quevedo MD - 12/14/2024 1:45 AM CDT Esdras Quevedo MD 12/19/2024 2:18 PM Central Line Insertion Date/Time: 12/14/2024 1:45 AM Performed by: Hieu Silver MD Authorized by: Hieu Silver MD [place] Protocol: Informed consent: Unable to obtain due [...] Cordis left in place for vascular access. Hieu Silver MD IN CLINIC/BEDSIDE ORDERA BLES Final Result * MA ARTL CATHJ/CANNULJ MNTR/TRANSFUSION SPX PRQ (12/14/2024 1:44 AM CDT) Narrative Esdras Quevedo MD - 12/14/2024 1:44 AM CDT Esdras Quevedo MD 12/19/2024 2:18 PM Arterial Line Insertion Date/Time: 12/14/2024 1:44 AM Performed by: Hieu Silver MD Authorized by: Hieu Silver MD Allen Protocol: RN Notified of Procedure: yes Informed [...] complications Complications: no complications noted during insertion Hieu Silver MD IV THERAPY ORDERABLES Fi nal Result * XR Chest 1 View (12/14/2024 1:28 AM CDT) Anatomical Region Laterality Modality Body, Chest N/A Digital Radiogra phy 12/14/2024 8:11 AM CDT Impressions 12/14/2024 8:11 AM CDT 1. 12/14/2024 12:17 AM: A feeding tube courses below the paeyy-tv-ktnd. A right internal jugular transvenous pacing wire [...] feeding tube remains present coursing below the xhssb-wo-tqmu. Aortic valve replacement remains present. Sternal plates [...] placed. A feeding tube courses below the xyysl-fz-lkca. An aortic valve replacement remains present. Sternal [...] AM: A feeding tube courses below the cixtb-to-ymao. A right internal jugular transvenous pacing wire [...] feeding tube remains present coursing below the gjfke-aq-tvkw. Aortic valve replacement remains present. Sternal plates [...] placed. A feeding tube courses below the xuxpt-rj-sapq. An aortic valve replacement remains present. Sternal [...] AM: A feeding tube courses below the uiziw-rk-daku. A right internal jugular transvenous pacing wire [...] feeding tube remains present coursing below the gfrhg-qg-zdgx. Aortic valve replacement remains present. Sternal plates [...] placed. A feeding tube courses below the pcckv-rb-zhxk. An aortic valve replacement remains present. Sternal [...] AM: A feeding tube courses below the kdmfm-zc-azvw. A right internal jugular transvenous pacing wire [...] feeding tube remains present coursing below the qqarb-ot-gnho. Aortic valve replacement remains present. Sternal plates [...] placed. A feeding tube courses below the hvasr-dc-onup. An aortic valve replacement remains present. Sternal [...] AM CDT Impressions 12/14/2024 8:11 AM CDT . 12/14/2024 12:17 AM: A feeding tube courses below the kbovm-vi-reia. A right internal jugular transvenous pacing wire [...] feeding tube remains present coursing below the xxfug-jx-mjqu. Aortic valve replacement remains present. Sternal plates [...] placed. A feeding tube courses below the dhart-qa-sjxo. An aortic valve replacement remains present. Sternal [...] AM: A feeding tube courses below the qhxsx-bs-nggo. A right internal jugular transvenous pacing wire [...] feeding tube remains present coursing below the akrqp-dt-mfdj. Aortic valve replacement remains present. Sternal plates [...] placed. A feeding tube courses below the xbfxe-iv-koao. An aortic valve replacement remains present. Sternal plates remain aligned. There are redemonstrated bibasilar airspace opacities which are not significantly changed and may represent atelectasis versus aspiration and/or pneumonia in the appropriate clinical context. A small left pleural effusion is present, slightly increased from prior. There is no pneumothorax. The cardiomediastinal silhouette is unchanged. Electronically signed by: Peter Spears M.D. Gia Mecredes HAT LINING PASTER IMG XR PROCEDURES Final Result * (ABNORMAL) POC Blood Gas and Chemistries, Arterial - (12/13/2024 11:32 PM CDT) pH, Art POC 7.56(H) 7.35 - 7.45 pCO2, Art POC 23(L) 35 - 45 mmHg [facility] pO2, Art POC 138(H) 83 - 108 mmHg [facility] Na, POC 140 135 - 145 mmol/L [facility] K POC 4.0 3.3 - 4.9 mmol/L [facility] Comment: Interpretive Data Not all point of care methods assess for hemolysis. Confirm with instrument and retest K+ if not consistent with clinical signs and symptoms. Current Interpretive Data was last revised on 2023. Cl, POC 109 97 - 110 mmol/L [facility] Ionized Ca, POC 4.83 4.50 - 5.10 mg/dL [facility] Glucose, POC 192 70 - 199 mg/dL [facility] Lactate POC 2.3(H) 0.7 - 2.0 mmol/L [facility] SO2 (chandra) arterial 99(H) 90 - 95 % [facility] Base excess, POC -0.9 mmol/L [facility] HCO3, Art POC 21 20 - 30 mmol/L [facility] Hct, POC 26.0(L) 36.3 - 45.3 % [facility] Total Hb, POC 8.5(L) 11.9 - 15.5 g/dL [facility] Blood 12/13/2024 11:3 2 PM CDT 12/13/2024 11:32 PM CDT Indiana Motrensen MD LAB POCT ORDERABLES - DEVICE Final Result Performing Organization Address [facility]/ZIP Co de Phone Number [facility] Department [place] [employer] [place] [address] * Potassium, whole blood (12/13/2024 10:24 PM CDT) Potassium, bld 4.1 3.3 - 4.9 mmol/L Blood 12/13/2024 10:2 4 PM CDT 12/13/2024 10:32 PM CDT Gia Mercedes NP LAB BLOOD ORDERABLES Final Res ult Performing Organization Address City/[facility]/ZIP Co de Phone Number [facility] Department [place] [address] * eGFR (12/13/2024 10:24 PM CDT) eGFR [...] 4 PM CDT 12/13/2024 10:56 PM CDT us Angela Cox HAT LINING PASTER LAB BLOOD ORDERABLES Final Result [facility] [place] [address] * Calcium, ionized (12/13/2024 10:24 PM CDT) Calcium, Ionized 4.50 4.50 - 5.10 mg/dL Blood 12/13/2024 10:2 4 PM CDT 12/13/2024 10:32 PM CDT Gia Mercedes HAT LINING PASTER LAB BLOOD ORDERABLES Final Res ult [facility] [place] [address] * (ABNORMAL) CBC without differential (12/13/2024 10:24 PM CDT) Pathologist [facility] WBC 16.96(H) 3.80 - 9.90 K/cumm Hgb 7.8(L) 11.9 - 15.5 g/dL [facility] Hct 23.6(L) 35.6 - 45.5 % [facility] Plt 224 150 - 400 K/cumm [facility] MPV 9.0(L) 9.1 - 12.3 fL [facility] RBC 2.61(L) 3.90 - 5.20 M/cumm [facility] MCV 90.4 81.3 - 96.4 fL [facility] MCH 29.9 27.1 - 33.3 pg [facility] MCHC 33.1 32.3 - 35.7 g/dL [facility] RDW CV 14.0 11.1 - 14.9 % [facility] RDW SD 45.9 35.7 - 48.1 fL [facility] NRBC abs 0.12(H) 0.00 - 0.01 K/cumm [facility] Blood 12/13/2024 10:2 4 PM CDT 12/13/2024 10:37 PM CDT us Angela Cox HAT LINING PASTER LAB BLOOD ORDERABLES Final Result Performing Organization Address City/[facility]/ZIP Co de Phone Number [facility] Department [place] [address] * Phosphorus (12/13/2024 10:24 PM CDT) Pathologist [facility] Phosphorus, pl 4.0 2.3 - 4.5 mg/dL Blood 12/13/2024 10:2 4 PM CDT 12/13/2024 10:32 PM CDT Angela Cox HAT LINING PASTER LAB BLOOD ORDERABLES Final Result [facility] Department [place] [address] * Magnesium (12/13/2024 10:24 PM CDT) [facility] Magnesium 2.1 1.4 - 2.5 mg/dL Blood 12/13/2024 10:2 4 PM CDT 12/13/2024 10:32 PM CDT us Indiana Mortensen MD LAB BLOOD ORDERABLES Final Re sult [facility] Department [place] [address] * (ABNORMAL) Basic metabolic panel (12/13/2024 10:24 PM CDT) [facility] Sodium 143 135 - 145 mmol/L Potassium, pl 4.3 3.3 - 4.9 mmol/L [facility] Chloride 109 97 - 110 mmol/L [facility] CO2 25 22 - 32 mmol/L [facility] Anion gap 9 2 - 15 mmol/L [facility] BUN 24 6 - 25 mg/dL [facility] Creatinine 0.81 0.60 - 1.10 mg/dL [facility] Glucose 137 70 - 199 mg/dL [facility] Comment: Interpretive Data Fasting [...] 2022. Calcium 8.4(L) 8.5 - 10.3 mg/dL [facility] Blood 12/13/2024 10:2 4 PM CDT 12/13/2024 10:32 PM CDT us Angela Cox HAT LINING PASTER LAB BLOOD ORDERABLES Final Result [facility] Department [place] [address] * XR Chest 1 View (12/13/2024 8:06 PM CDT) Anatomical Region Laterality Modality Body, Chest N/A Computed Radiogr aphy 12/13/2024 10:2 6 PM CDT Impressions 12/13/2024 10:26 PM CDT 1. 12/13/2024 8:32 AM: A feeding tube courses below the epigc-cm-jqhh. Aortic valve replacement is present. Sternal plates are aligned. There has been removal of right internal jugular central venous catheter. The lung volumes remain small bilaterally with moderate bibasilar atelectasis and a small left pleural effusion. No pneumothorax is identified. The cardiomediastinal silhouette is unchanged. 2. 12/13/2024 5:36 PM: A feeding tube courses below the jcjyi-kx-lwuy. An aortic valve replacement is present. Sternal plates are aligned. The lung volumes remain small with mild bibasilar atelectasis. There may be a trace left pleural effusion. No pneumothorax is identified. The cardiomediastinal silhouette is unchanged. 3. 12/13/2024 7:55 PM: There is no significant interval change. No pneumothorax is identified. Electronically signed by: Peetr Spears M.D. Narrative 12/13/2024 10:26 PM CDT EXAMINATION: XR CHEST 1 VIEW COMPARISON: 12/12/2024 7:23 AM Procedure Note Peter Spears MD PhD - 12/13/2024 EXAMINATION: XR CHEST 1 VIEW COMPARISON: 12/12/2024 7:23 AM IMPRESSION: 1. 12/13/2024 8:32 AM: A feeding tube courses below the aetjk-td-wrfq. Aortic valve replacement is present. Sternal plates are aligned. There has been removal of right internal jugular central venous catheter. The lung volumes remain small bilaterally with moderate bibasilar atelectasis and a small left pleural effusion. No pneumothorax is identified. The cardiomediastinal silhouette is unchanged. 2. 12/13/2024 5:36 PM: A feeding tube courses below the gqbgx-nq-vwzn. An aortic valve replacement is present. Sternal plates are aligned. The lung volumes remain small with mild bibasilar atelectasis. There may be a trace left pleural effusion. No pneumothorax is identified. The cardiomediastinal silhouette is unchanged. 3. 12/13/2024 7:55 PM: There is no significant interval change. No pneumothorax is identified. Electronically signed by: Peter Spears M.D. us Alecia Acosta NP IMG XR PROCEDURES Final Result * POCT glucose (12/13/2024 7:44 PM CDT) Glucose, POC 152 70 - 199 mg/dL Blood 12/13/2024 7:44 PM CDT 12/13/2024 7:44 PM CDT us Indiana Mortensen MD LAB POCT ORDERABLES - DEVICE Final Result Performing Organization Address City/State/[facility] Co de Phone Number [facility] Department [place] [address] * Critical Care (12/13/2024 6:17 PM CDT) [...] plan with the ICU team and other medical/solutions consultant staff, making frequent assessments and decisions [...] AM: A feeding tube courses below the rrigp-kk-jeju. Aortic valve replacement is present. Sternal plates are aligned. There has been removal of right internal jugular central venous catheter. The lung volumes remain small bilaterally with moderate bibasilar atelectasis and a small left pleural effusion. No pneumothorax is identified. The cardiomediastinal silhouette is unchanged. 2. 12/13/2024 5:36 PM: A feeding tube courses below the vtyyn-oz-thxb. An aortic valve replacement is present. Sternal [...] AM: A feeding tube courses below the mxlel-be-gkhr. Aortic valve replacement is present. Sternal plates are aligned. There has been removal of right internal jugular central venous catheter. The lung volumes remain small bilaterally with moderate bibasilar atelectasis and a small left pleural effusion. No pneumothorax is identified. The cardiomediastinal silhouette is unchanged. 2. 12/13/2024 5:36 PM: A feeding tube courses below the anqbt-bh-awwz. An aortic valve replacement is present. Sternal plates are aligned. The lung volumes remain small with mild bibasilar atelectasis. There may be a trace left pleural effusion. No pneumothorax is identified. The cardiomediastinal silhouette is unchanged. 3. 12/13/2024 7:55 PM: There is no significant interval change. No pneumothorax is identified. Electronically signed by: Peter Spears M.D. us Indiana Mortensen MD IMG XR PROCEDURES Final [...] CDT 12/13/2024 3:04 PM CDT Elizabeth Zaldivar NP LAB BLOOD ORDERABLES Brenda l Result Performing Organization Address City/[facility]/ZIP Co de Phone Number [facility] Department [place] [address] * (ABNORMAL) Basic metabolic panel (12/13/2024 2:54 PM CDT) [facility] Sodium 143 135 - 145 mmol/L Potassium, pl 4.1 3.3 - 4.9 mmol/L [facility] Chloride 107 97 - 110 mmol/L [facility] CO2 26 22 - 32 mmol/L [facility] Anion gap 10 2 - 15 mmol/L [facility] BUN 24 6 - 25 mg/dL [facility] Creatinine 0.75 0.60 - 1.10 mg/dL [facility] Glucose 187 70 - 199 mg/dL [facility] Comment: Interpretive Data Fasting [...] 2022. Calcium 8.2(L) 8.5 - 10.3 mg/dL [facility] Blood 12/13/2024 2:54 PM CDT 12/13/2024 3:04 PM CDT Elizabeth Zaldivar NP LAB BLOOD ORDERABLES Brenda l Result Performing Organization Address [facility]/ZIP Co de Phone Number [facility] Department [place] [address] * POCT glucose (12/13/2024 2:39 PM CDT) Glucose, POC 176 70 - 199 mg/dL Blood 12/13/2024 2:39 PM CDT 12/13/2024 2:39 PM CDT us Indiana Mortensen MD LAB POCT ORDERABLES - DEVICE Final Result [facility] Department [place] [address] * EEG (12/13/2024 2:04 PM CDT) Anatomical Region Laterality Modality EEG Narrative 12/14/2024 12:24 PM CDT Routine EEG Report Patient Name: Adi [facility] Record Number (MRN): [id number] [facility] Record: [id number] Date of (): 1960 EEG Date: 12/13/2024 [...] 32 channel EEG recording acquired on a [employer] EEG-1200 acquisition system. Scalp electrodes were placed [...] Attending: Júnior Gavin MD us Elizabeth Zaldivar HAT LINING PASTER NEUROLOGY ORDERABLES Brenda l Result * WATCH DIAL MAKER Evaluation and Treatment (12/13/2024 1:42 PM CDT) [...] reg/reg per pt report General Information Adi Wongory 12/13/24 General Observations: Pt sitting upright in [...] Aspiration Risk: No aspiration risk (170-200) Plan WATCH DIAL MAKER Frequency of Services during current admission: Discharge from this Service (for swallow) WATCH DIAL MAKER Recommendation (Add'l Services): Defer at this time Further Assessment/Follow up Indicated: Next Visit Plan:No further ST warranted for swallow Additional Referrals: none Please reference care plan for treatment goals, if indicated. Discharge Summary Statement If this is the last swallow therapy visit, this serves as the discharge summary. us Alecia Acosta NP WATCH DIAL MAKER ORDERABLES Final Re sult * CT Head [...] signed by: Eva Farooq M.D. Elizabeth Zaldivar HAT LINING PASTER IMG CT PROCEDURES Final R esult * POCT glucose (12/13/2024 11:29 AM CDT) Glucose, POC 150 70 - 199 mg/dL Blood 12/13/2024 11:2 9 AM CDT 12/13/2024 11:29 AM CDT Indiana Mortensen MD LAB POCT ORDERABLES - DEVICE Final Result [facility] Department [place] [address] * eGFR (12/13/2024 10:20 AM CDT) eGFR [...] NP LAB BLOOD ORDERABLES Brenda wharton Result ALEX [facility] Department [place] [address] * (ABNORMAL) Basic metabolic panel (12/13/2024 10:20 AM CDT) Sodium 147(H) 135 - 145 mmol/L Potassium, pl 4.2 3.3 - 4.9 mmol/L [facility] Chloride 112(H) 97 - 110 mmol/L [facility] CO2 27 22 - 32 mmol/L [facility] Anion gap 8 2 - 15 mmol/L [facility] BUN 27(H) 6 - 25 mg/dL [facility] Creatinine 0.81 0.60 - 1.10 mg/dL [facility] Glucose 150 70 - 199 mg/dL [facility] Comment: Interpretive Data Fasting [...] 2022. Calcium 8.9 8.5 - 10.3 mg/dL [facility] Blood 12/13/2024 10:2 0 AM CDT 12/13/2024 10:33 AM CDT Elizabeth Zaldivar NP LAB BLOOD ORDERABLES Brenda l Result [facility] Department [place] [address] * POCT glucose (12/13/2024 8:34 AM CDT) [facility] Signature Glucose, POC 147 70 - 199 mg/dL Blood 12/13/2024 8:34 AM CDT 12/13/2024 8:34 AM CDT us Indiana Mortensen MD LAB POCT ORDERABLES - DEVICE Final Result Performing Organization Address City/[facility]/ZIP Co de Phone Number [facility] Department [place] [address] * XR Chest 1 View (12/13/2024 8:32 AM CDT) Anatomical Region Laterality Modality Body, Chest N/A Computed Radiogr aphy 12/13/2024 10:2 6 PM CDT Impressions 12/13/2024 10:26 PM CDT 1. 12/13/2024 8:32 AM: A feeding tube courses below the bddrt-hy-zbst. Aortic valve replacement is present. Sternal plates are aligned. There has been removal of right internal jugular central venous catheter. The lung volumes remain small bilaterally with moderate bibasilar atelectasis and a small left pleural effusion. No pneumothorax is identified. The cardiomediastinal silhouette is unchanged. 2. 12/13/2024 5:36 PM: A feeding tube courses below the sydrg-wr-wfud. An aortic valve replacement is present. Sternal [...] AM: A feeding tube courses below the uqxrb-ho-prev. Aortic valve replacement is present. Sternal plates are aligned. There has been removal of right internal jugular central venous catheter. The lung volumes remain small bilaterally with moderate bibasilar atelectasis and a small left pleural effusion. No pneumothorax is identified. The cardiomediastinal silhouette is unchanged. 2. 12/13/2024 5:36 PM: A feeding tube courses below the tzgqp-lr-xdwa. An aortic valve replacement is present. Sternal [...] Potassium, whole blood (12/13/2024 3:27 AM CDT) Pathologist [facility] Potassium, bld 4.1 3.3 - 4.9 mmol/L Blood 12/13/2024 3:27 AM CDT 12/13/2024 3:51 AM CDT Angela hannahmichele Cox HAT LINING PASTER LAB BLOOD ORDERABLES Final Result Performing Organization Address [facility]/ZIP Co de Phone Number [facility] Department [place] [employer] [address] * POCT glucose (12/13/2024 3:27 AM CDT) Pathologist [facility] Glucose, POC 145 70 - 199 mg/dL Blood 12/13/2024 3:27 AM CDT 12/13/2024 3:27 AM CDT Indiana Mortensen MD LAB POCT ORDERABLES - DEVICE Final Result Performing Organization Address City/[facility] de Phone Number [facility] Department [place] [address] * eGFR (12/12/2024 10:37 PM CDT) eGFR [...] CDT 12/12/2024 10:48 PM CDT Angela Cox HAT LINING PASTER LAB BLOOD ORDERABLES Final Result [facility] Department [place] [address] * (ABNORMAL) CBC without differential (12/12/2024 10:37 PM CDT) WBC 15.50(H) 3.80 - 9.90 K/cumm Hgb 7.6(L) 11.9 - 15.5 g/dL [facility] Hct 22.5(L) 35.6 - 45.5 % [facility] Plt 189 150 - 400 K/cumm [facility] MPV 9.1 9.1 - 12.3 fL [facility] RBC 2.49(L) 3.90 - 5.20 M/cumm [facility] MCV 90.4 81.3 - 96.4 fL [facility] MCH 30.5 27.1 - 33.3 pg [facility] MCHC 33.8 32.3 - 35.7 g/dL [facility] RDW CV 14.1 11.1 - 14.9 % [facility] RDW SD 46.1 35.7 - 48.1 fL [facility] NRBC abs 0.08(H) 0.00 - 0.01 K/cumm [facility] Blood 12/12/2024 10:3 7 PM CDT 12/12/2024 10:48 PM CDT Angela Cox HAT LINING PASTER LAB BLOOD ORDERABLES Final Result [facility] Department [place] [address] * Phosphorus (12/12/2024 10:37 PM CDT) Phosphorus, pl 4.2 2.3 - 4.5 mg/dL Blood 12/12/2024 10:3 7 PM CDT 12/12/2024 10:48 PM CDT Angela Cox NP LAB BLOOD ORDERABLES Final Result [facility] Department [place] [address] * (ABNORMAL) Basic metabolic panel (12/12/2024 10:37 PM CDT) Pathologist [facility] Sodium 149(H) 135 - 145 mmol/L Potassium, pl 4.3 3.3 - 4.9 mmol/L [facility] Chloride 112(H) 97 - 110 mmol/L [facility] CO2 27 22 - 32 mmol/L [facility] Anion gap 10 2 - 15 mmol/L [facility] BUN 27(H) 6 - 25 mg/dL [facility] Creatinine 0.89 0.60 - 1.10 mg/dL [facility] Glucose 155 70 - 199 mg/dL [facility] Comment: Interpretive Data Fasting [...] 2022. Calcium 8.6 8.5 - 10.3 mg/dL [facility] Blood 12/12/2024 10:3 7 PM CDT 12/12/2024 10:48 PM CDT us Angela Cox HAT LINING PASTER LAB BLOOD ORDERABLES Final Result Performing Organization Address City/[facility] Co de Phone Number [facility] [place] [address] * POCT glucose (12/12/2024 10:36 PM CDT) Glucose, POC 157 70 - 199 mg/dL Blood 12/12/2024 10:3 6 PM CDT 12/12/2024 10:36 PM CDT Indiana Mortensen MD LAB POCT ORDERABLES - DEVICE Final Result Performing Organization Address [facility] Co de Phone Number [facility] [place] [address] * POCT glucose (12/12/2024 7:33 PM CDT) Glucose, POC 155 70 - 199 mg/dL Blood 12/12/2024 7:33 PM CDT 12/12/2024 7:33 PM CDT us Indiana Mortensen MD LAB POCT ORDERABLES - DEVICE Final Result Performing Organization Address [facility] Co de Phone Number [facility] Department [place] [address] * Potassium, whole blood (12/12/2024 7:25 PM CDT) Potassium, bld 4.2 3.3 - 4.9 mmol/L Blood 12/12/2024 7:25 PM CDT 12/12/2024 8:28 PM CDT us Angela Cox HAT LINING PASTER LAB BLOOD ORDERABLES Final Result Performing Organization Address City/[facility]/ZIP Co de Phone Number [facility] Department [place] [address] * Type and screen (12/12/2024 7:25 PM CDT) Sarah, indirect Negative ABO Rh B Negative [facility] Blood 12/12/2024 7:25 PM CDT 12/12/2024 9:14 PM CDT N[facility]ative [facility] - 12/12/2024 10:20 PM CDT Has the patient had Daratumumab or Isatuximab in the past 6 months?->Unknown us Indiana Mortensen MD LAB BLOOD BANK TEST ORDERABLE S Final Result [facility] [place] [address] * Critical Care (12/12/2024 6:47 PM CDT) [...] plan with the ICU team and other medical/solutions consultant staff, making frequent assessments and decisions [...] documenting in the medical record Gia Mercedes HAT LINING PASTER IN CLINIC/BEDSIDE ORDERABLES F inal Result * POCT glucose (12/12/2024 3:50 PM CDT) Pathologist [facility] Glucose, POC 151 70 - 199 mg/dL Blood 12/12/2024 3:50 PM CDT 12/12/2024 3:50 PM CDT Indiana Mortensen MD LAB POCT ORDERABLES - DEVICE Final Result Performing Organization Address [facility] Co de Phone Number [facility] [place] [address] * (ABNORMAL) Protime-INR (12/12/2024 12:03 PM CDT) [facility] PT 14.4(H) 9.7 - 13.0 sec INR 1.33(H) 0.90 - 1.20 [facility] Comment: Interpretive data Oral anticoagulant therapeutic ranges: Venous thromboembolism prophylaxis or treatment: 2.0-3.0 CARDIOLOGY Standard range: 2.0-3.0 High-intensity range: 2.5-3.5 Refer to indication-specific guidelines for appropriate target ranges for prosthetic heart valve replacement. Current interpretive data was last revised on 2019. Blood 12/12/2024 12:0 3 PM CDT 12/12/2024 12:16 PM CDT Alecia Acosta HAT LINING PASTER LAB BLOOD ORDERABLES Fin al Result Performing Organization Address City/[facility] Co de Phone Number [facility] [place] [address] * ECG 12 lead (12/12/2024 11:50 AM CDT) Pathologist [facility] Ventricular Rate EKG/Min 98 BPM [facility] Atrial Rate 98 BPM [facility] MA-Interval (MSEC) 186 ms [facility] QRS-Interval (MSEC) 132 ms [facility] QT-Interval (MSEC) 362 ms [facility] QTc 462 ms [facility] P [place] 54 degrees [facility] R [place] -29 degrees [facility] T [place] 58 degrees [facility] Diagnosis Normal sinus rhythm Right bundle branch block Abnormal ECG Confirmed by Hank Albert MD ([id number]) on 12/12/2024 10:15:15 PM [facility] 12/12/2024 11:5 0 AM CDT 12/12/2024 10:15 PM CDT us Indiana Mortensen MD ECG ORDERABLES Final Result [facility] * POCT glucose (12/12/2024 11:04 AM CDT) [facility] Glucose, POC 159 70 - 199 mg/dL Blood 12/12/2024 11:0 4 AM CDT 12/12/2024 11:04 AM CDT us Indiana Mortensen MD LAB POCT ORDERABLES - DEVICE Final Result Performing Organization Address City/[facility]/ZIP Co de Phone Number [facility] Department [place] [address] * XR Chest 1 View (12/12/2024 7:35 [...] and agrees with it. Electronically signed by: Shalrene Claros M.D. Narrative 12/12/2024 9:58 AM CDT [...] by: Sharlene Claros M.D. us Angela Cox NP IMG XR PROCEDURES Fi nal Result * POCT glucose (12/12/2024 7:32 AM CDT) [facility] Signature Glucose, POC 161 70 - 199 mg/dL Blood 12/12/2024 7:32 AM CDT 12/12/2024 7:32 AM CDT us Indiana Mortensen MD LAB POCT ORDERABLES - DEVICE Final Result [facility] Department [place] [address] * Critical Care (12/12/2024 6:27 AM CDT) [...] plan with the ICU team and other medical/solutions consultant staff, making frequent assessments and decisions [...] in the medical record us Alecia Acosta HAT LINING PASTER IN CLINIC/BEDSIDE ORDERA BLES Final Result * Potassium, whole blood (12/12/2024 5:23 AM CDT) [facility] Potassium, bld 4.2 3.3 - 4.9 mmol/L Blood 12/12/2024 5:23 AM CDT 12/12/2024 5:33 AM CDT us Angela Cox HAT LINING PASTER LAB BLOOD ORDERABLES Final Result [facility] Department [place] [address] * POCT glucose (12/12/2024 3:16 AM CDT) Glucose, POC 152 70 - 199 mg/dL Blood 12/12/2024 3:16 AM CDT 12/12/2024 3:16 AM CDT us Indiana Mortensen MD LAB POCT ORDERABLES - DEVICE Final Result Performing Organization Address [facility] Co de Phone Number [facility] [place] [employer] [place] [address] * Oxyhemoglobin, central venous (12/12/2024 12:09 AM CDT) Oxyhemoglobin, CV 62.7 % Comment: Interpretive Data No reference range established. Current interpretive data was last revised 2019. Blood 12/12/2024 12:0 9 AM CDT 12/12/2024 12:17 AM CDT us Angela Cox NP LAB BLOOD ORDERABLES Final Result Performing Organization Address [facility] Co de Phone Number [facility] [place] [address] * eGFR (12/12/2024 12:09 AM CDT) eGFR [...] CDT 12/12/2024 1:15 AM CDT Angela Cox HAT LINING PASTER LAB BLOOD ORDERABLES Final Result Performing Organization Address City/[facility]/ZIP Co de Phone Number [facility] Department [place] [address] * Calcium, ionized (12/12/2024 12:09 AM CDT) Calcium, Ionized 4.69 4.50 - 5.10 mg/dL Blood 12/12/2024 12:0 9 AM CDT 12/12/2024 12:31 AM CDT Gia Mercedes HAT LINING PASTER LAB BLOOD ORDERABLES Final Res ult Performing Organization Address [facility] de Phone Number [facility] [place] [address] * (ABNORMAL) Protime-INR (12/12/2024 12:09 AM CDT) PT 15.2(H) 9.7 - 13.0 sec INR 1.40(H) 0.90 - 1.20 [facility] Comment: Interpretive data Oral anticoagulant therapeutic ranges: Venous thromboembolism prophylaxis or treatment: 2.0-3.0 CARDIOLOGY Standard range: 2.0-3.0 High-intensity range: 2.5-3.5 Refer to indication-specific guidelines for appropriate target ranges for prosthetic heart valve replacement. Current interpretive data was last revised on 2019. Blood 12/12/2024 12:0 9 AM CDT 12/12/2024 12:30 AM CDT Angela Cox HAT LINING PASTER LAB BLOOD ORDERABLES Final Result Performing Organization Address [facility] de Phone Number [facility] Department [place] [address] * (ABNORMAL) CBC without differential (12/12/2024 12:09 AM CDT) Pathologist [facility] WBC 17.51(H) 3.80 - 9.90 K/cumm Hgb 8.2(L) 11.9 - 15.5 g/dL [facility] Hct 23.9(L) 35.6 - 45.5 % [facility] Plt 169 150 - 400 K/cumm [facility] MPV 9.0(L) 9.1 - 12.3 fL [facility] RBC 2.64(L) 3.90 - 5.20 M/cumm [facility] MCV 90.5 81.3 - 96.4 fL [facility] MCH 31.1 27.1 - 33.3 pg [facility] MCHC 34.3 32.3 - 35.7 g/dL [facility] RDW CV 14.1 11.1 - 14.9 % [facility] RDW SD 46.1 35.7 - 48.1 fL [facility] NRBC abs 0.04(H) 0.00 - 0.01 K/cumm [facility] Blood 12/12/2024 12:0 9 AM CDT 12/12/2024 12:26 AM CDT Angela Cox HAT LINING PASTER LAB BLOOD ORDERABLES Final Result Performing Organization Address City/[facility] Co de Phone Number [facility] Department [place] [address] * Phosphorus (12/12/2024 12:09 AM CDT) Pathologist [facility] Phosphorus, pl 2.6 2.3 - 4.5 mg/dL Blood 12/12/2024 12:0 9 AM CDT 12/12/2024 1:15 AM CDT Angela Reidvidya HAT LINING PASTER LAB BLOOD ORDERABLES Final Result Performing Organization Address City/[facility]/ZIP Co de Phone Number [facility] Department [place] [address] * Magnesium (12/12/2024 12:09 AM CDT) Pathologist [facility] Magnesium 2.2 1.4 - 2.5 mg/dL Blood 12/12/2024 12:0 9 AM CDT 12/12/2024 1:15 AM CDT Angela Cox HAT LINING PASTER LAB BLOOD ORDERABLES Final Result Performing Organization Address [facility] de Phone Number [facility] Department [place] [address] * (ABNORMAL) Basic metabolic panel (12/12/2024 12:09 AM CDT) [facility] Sodium 146(H) 135 - 145 mmol/L Potassium, pl 3.8 3.3 - 4.9 mmol/L [facility] Chloride 110 97 - 110 mmol/L [facility] CO2 28 22 - 32 mmol/L [facility] Anion gap 8 2 - 15 mmol/L [facility] BUN 25 6 - 25 mg/dL [facility] Creatinine 0.91 0.60 - 1.10 mg/dL [facility] Glucose 173 70 - 199 mg/dL [facility] Comment: Interpretive Data Fasting [...] 2022. Calcium 8.6 8.5 - 10.3 mg/dL [facility] Blood 12/12/2024 12:0 9 AM CDT 12/12/2024 1:15 AM CDT Angela Cox NP LAB BLOOD ORDERABLES Final Result Performing Organization Address [facility] de Phone Number [facility] [place] [address] * POCT glucose (12/11/2024 11:07 PM CDT) Glucose, POC 159 70 - 199 mg/dL Blood 12/11/2024 11:0 7 PM CDT 12/11/2024 11:07 PM CDT Indiana Mortensen MD LAB POCT ORDERABLES - DEVICE Final Result Performing Organization Address [facility] de Phone Number [facility] [place] [address] * POCT glucose (12/11/2024 8:01 PM CDT) Glucose, POC 140 70 - 199 mg/dL Blood 12/11/2024 8:01 PM CDT 12/11/2024 8:01 PM CDT Indiana Mortensen MD LAB POCT ORDERABLES - DEVICE Final Result Performing Organization Address [facility] [place] [address] * Critical Care (12/11/2024 7:08 PM CDT) [...] plan with the ICU team and other medical/solutions consultant staff, making frequent assessments and decisions [...] - DEVICE Final Result Performing Organization Address [facility] Co de Phone Number [facility] Department [place] [employer] [address] * POCT glucose (12/11/2024 11:36 AM CDT) Glucose, POC 145 70 - 199 mg/dL Blood 12/11/2024 11:3 6 AM CDT 12/11/2024 11:36 AM CDT Indiana Mortensen MD LAB POCT ORDERABLES - DEVICE Final Result Performing Organization Address [facility] Co de Phone Number [facility]LEX [facility] Department [place] [address] * Influenza A/B, RSV, and COVID-19 PCR Nasopharyngeal (12/11/2024 10:09 AM CDT) COVID-19 RNA Negative Negative [facility] Influenza A RNA Negative Negative [facility] Influenza B RNA Negative Negative [facility] RSV RNA Negative Negative [facility] Comment: Interpretive data: Testing performed by [facility] ([phone]). This test is performed using the [employer] Xpert Xpress CoV-2/Flu/RSV plus assay. This is a multiplex, real-time reverse transcriptase PCR assay intended for the qualitative detection of nucleic acid from SARS-CoV-2, influenza A, influenza B, and respiratory syncytial virus. This assay has been cleared by the [place] Food and Drug administration. The performance characteristics have been verified by the [facility]. Results must be considered in the clinical context, and a negative result does not rule out infection. Interpretive Data last revised 2023 Nasopharyngeal 12/11/2024 10 :09 AM CDT 12/11/2024 10:51 AM CDT Narrative [facility] - 12/11/2024 11:45 AM CDT Is the Patient experiencing symptoms consistent with COVID?->Yes Thoa Anna Rodriguez HAT LINING PASTER LAB MICROBIOLOGY - GENERAL OR DERABLES Final Result [facility] Department [place] [address] [facility] * XR Chest 1 View (12/11/2024 [...] by: Felipe Souza MD, PHD us Angela Corona Franklinluis manuelakash HAT LINING PASTER IMG XR PROCEDURES Fi nal Result * POCT glucose (12/11/2024 7:58 AM CDT) [facility] Signature Glucose, POC 137 70 - 199 mg/dL Blood 12/11/2024 7:58 AM CDT 12/11/2024 7:58 AM CDT us Indiana Mortensen MD LAB POCT ORDERABLES - DEVICE Final Result [facility]LEX [facility] Department [place] [address] * Critical Care (12/11/2024 6:53 AM CDT) [...] plan with the ICU team and other medical/solutions consultant staff, making frequent assessments and decisions [...] * POCT glucose (12/11/2024 4:39 AM CDT) Glucose, POC 144 70 - 199 mg/dL Blood 12/11/2024 4:39 AM CDT 12/11/2024 4:39 AM CDT us Indiana Mortensen MD LAB POCT ORDERABLES - DEVICE Final Result [facility]LEX [facility] [place] [address] * Infection Prevention Justice auris PCR, surveillance Axilla/Groin (12/11/2024 12:09 AM CDT) Justice auris DNA Not Detected Not Detected [facility] Comment: Interpretive Data Testing performed by [facility] using the Stacie shirin 6800 Justice auris assay. This assay detects DNA from Justice auris using Real-Time PCR. This assay is laboratory developed and is not cleared by the [place] Food and Drug Administration. The performance characteristics have been verified by the [facility]. Axilla/Groin 12/11/2024 12:0 9 AM CDT 12/11/2024 12:42 AM CDT Narrative ALEX [facility] - 12/11/2024 12:14 PM CDT Order placed by [facility] due to ring surveillance. us Instant Order Generic Provider LAB MICROBIOLOGY - GENERAL ORDERABLES Final Result ALEX [facility] Department [place] [address] [facility] * eGFR (12/11/2024 12:01 AM CDT) eGFR 69 >=60 mL/min/1. 73 [...] CDT 12/11/2024 12:38 AM CDT Angela Cox HAT LINING PASTER LAB BLOOD ORDERABLES Final Result Performing Organization Address City/[facility]/ZIP Co de Phone Number [facility] [place] [address] * POCT glucose (12/11/2024 12:01 AM CDT) Glucose, POC 155 70 - 199 mg/dL Blood 12/11/2024 12:0 1 AM CDT 12/11/2024 12:01 AM CDT Indiana Mortensen MD LAB POCT ORDERABLES - DEVICE Final Result Performing Organization Address [facility] de Phone Number [facility] [place] [address] * (ABNORMAL) Protime-INR (12/11/2024 12:01 AM CDT) PT 14.5(H) 9.7 - 13.0 sec INR 1.33(H) 0.90 - 1.20 [facility] Comment: Interpretive data Oral anticoagulant therapeutic ranges: Venous thromboembolism prophylaxis or treatment: 2.0-3.0 CARDIOLOGY Standard range: 2.0-3.0 High-intensity range: 2.5-3.5 Refer to indication-specific guidelines for appropriate target ranges for prosthetic heart valve replacement. Current interpretive data was last revised on 2019. Blood 12/11/2024 12:0 1 AM CDT 12/11/2024 12:31 AM CDT Angela Cox HAT LINING PASTER LAB BLOOD ORDERABLES Final Result Performing Organization Address [facility] Co de Phone Number [facility] [place] [address] * (ABNORMAL) CBC without differential (12/11/2024 12:01 AM CDT) WBC 17.87(H) 3.80 - 9.90 K/cumm Hgb 8.8(L) 11.9 - 15.5 g/dL [facility] Hct 25.5(L) 35.6 - 45.5 % [facility] Plt 161 150 - 400 K/cumm [facility] MPV 8.9(L) 9.1 - 12.3 fL [facility] RBC 2.86(L) 3.90 - 5.20 M/cumm [facility] MCV 89.2 81.3 - 96.4 fL [facility] MCH 30.8 27.1 - 33.3 pg [facility] MCHC 34.5 32.3 - 35.7 g/dL [facility] RDW CV 14.1 11.1 - 14.9 % [facility] RDW SD 45.7 35.7 - 48.1 fL [facility] NRBC abs 0.00 0.00 - 0.01 K/cumm [facility] Blood 12/11/2024 12:0 1 AM CDT 12/11/2024 12:38 AM CDT Angela Cox HAT LINING PASTER LAB BLOOD ORDERABLES Final Result Performing Organization Address City/[facility]/ZIP Co de Phone Number [facility] Department [place] [place] [address] * Phosphorus (12/11/2024 12:01 AM CDT) [facility] Phosphorus, pl 2.9 2.3 - 4.5 mg/dL Blood 12/11/2024 12:0 1 AM CDT 12/11/2024 12:38 AM CDT Angela Cox HAT LINING PASTER LAB BLOOD ORDERABLES Final Result [facility] [place] [address] * Magnesium (12/11/2024 12:01 AM CDT) [facility] Magnesium 2.3 1.4 - 2.5 mg/dL Blood 12/11/2024 12:0 1 AM CDT 12/11/2024 12:38 AM CDT Angela Chloe Cox HAT LINING PASTER LAB BLOOD ORDERABLES Final Result [facility] Department [place] [address] * Basic metabolic panel (12/11/2024 12:01 AM CDT) Pathologist [facility] Sodium 141 135 - 145 mmol/L Potassium, pl 4.6 3.3 - 4.9 mmol/L [facility] Chloride 109 97 - 110 mmol/L [facility] CO2 25 22 - 32 mmol/L [facility] Anion gap 7 2 - 15 mmol/L [facility] BUN 21 6 - 25 mg/dL [facility] Creatinine 0.94 0.60 - 1.10 mg/dL [facility] Glucose 144 70 - 199 mg/dL [facility] Comment: Interpretive Data Fasting [...] 2022. Calcium 8.6 8.5 - 10.3 mg/dL [facility] Blood 12/11/2024 12:0 1 AM CDT 12/11/2024 12:38 AM CDT Angela Cox HAT LINING PASTER LAB BLOOD ORDERABLES Final Result Performing Organization Address City/[facility]/ZIP Co de Phone Number [facility] Department [place] [address] * Critical Care (12/10/2024 8:56 PM CDT) [...] plan with the ICU team and other medical/solutions consultant staff, making frequent assessments and decisions [...] in the medical record us Francine Pollard HAT LINING PASTER IN CLINIC/BEDSIDE OR DERABLES Final Result * POCT glucose (12/10/2024 7:28 PM CDT) Glucose, POC 136 70 - 199 mg/dL Blood 12/10/2024 7:28 PM CDT 12/10/2024 7:28 PM CDT us Indiana Mortensen MD LAB POCT ORDERABLES - DEVICE Final Result [facility]LEX [facility] Department [place] [address] * Potassium, whole blood (12/10/2024 4:12 PM CDT) Potassium, bld 4.4 3.3 - 4.9 mmol/L Blood 12/10/2024 4:12 PM CDT 12/10/2024 4:18 PM CDT Angela Cox HAT LINING PASTER LAB BLOOD ORDERABLES Final Result Performing Organization Address [facility] Co de Phone Number [facility] Department [place] [address] * POCT glucose (12/10/2024 4:12 PM CDT) Glucose, POC 162 70 - 199 mg/dL Blood 12/10/2024 4:12 PM CDT 12/10/2024 4:12 PM CDT Indiana Mortensen MD LAB POCT ORDERABLES - DEVICE Final Result Performing Organization Address [facility] de Phone Number [facility] Department [place] [address] * XR Abdomen 1 View AP (12/10/2024 [...] signed by: Silverio Rodríguez M.D. Angela Cox HAT LINING PASTER IMG XR PROCEDURES Fi nal Result * Potassium, whole blood (12/10/2024 2:02 PM CDT) [facility] Potassium, bld 4.4 3.3 - 4.9 mmol/L Blood 12/10/2024 2:02 PM CDT 12/10/2024 2:16 PM CDT Angela Cox NP LAB BLOOD ORDERABLES Final Result Performing Organization Address [facility] Co de Phone Number [facility] Department [place] [address] * POCT glucose (12/10/2024 1:54 PM CDT) [facility] Signature Glucose, POC 145 70 - 199 mg/dL Blood 12/10/2024 1:54 PM CDT 12/10/2024 1:54 PM CDT Indiana Mortensen MD LAB POCT ORDERABLES - DEVICE Final Result Performing Organization Address [facility]/ZIP Co de Phone Number [facility] Department [place] [address] * POCT glucose (12/10/2024 12:02 PM CDT) Glucose, POC 141 70 - 199 mg/dL Blood 12/10/2024 12:0 2 PM CDT 12/10/2024 12:02 PM CDT Indiana Mortensen MD LAB POCT ORDERABLES - DEVICE Final Result Performing Organization Address [facility] Co de Phone Number [facility] [place] [address] * POCT glucose (12/10/2024 10:10 AM CDT) Glucose, POC 154 70 - 199 mg/dL Blood 12/10/2024 10:1 0 AM CDT 12/10/2024 10:10 AM CDT Indiana Mortensen MD LAB POCT ORDERABLES - DEVICE Final Result Performing Organization Address [facility] Phone Number [facility] Department [place] [address] * XR Chest 1 View (12/10/2024 9:17 [...] agrees with it. Electronically signed by: Elfego Jennings 12/10/2024 11:57 AM CDT EXAMINATION: 1 view [...] by: Patrick De La Rosa M.D. Angela Cox HAT LINING PASTER IMG XR PROCEDURES Fi nal Result * (ABNORMAL) POC Blood Gas and Chemistries, Arterial - (12/10/2024 8:00 AM CDT) pH, Art POC 7.41 7.35 - 7.45 pCO2, Art POC 37 35 - 45 mmHg [facility] pO2, Art POC 98 83 - 108 mmHg [facility] Na, POC 139 135 - 145 mmol/L [facility] K POC 5.0(H) 3.3 - 4.9 mmol/L [facility] Comment: Interpretive Data Not all point of care methods assess for hemolysis. Confirm with instrument and retest K+ if not consistent with clinical signs and symptoms. Current Interpretive Data was last revised on 2023. Cl, POC 109 97 - 110 mmol/L [facility] Ionized Ca, POC 4.62 4.50 - 5.10 mg/dL [facility] Glucose, POC 150 70 - 199 mg/dL [facility] Lactate POC 1.7 0.7 - 2.0 mmol/L [facility] SO2 (chandra) arterial 99(H) 90 - 95 % [facility] Base excess, POC -0.9 mmol/L [facility] HCO3, Art POC 24 20 - 30 mmol/L [facility] Hct, POC 30.0(L) 36.3 - 45.3 % [facility] Total Hb, POC 10.1(L) 11.9 - 15.5 g/dL [facility] Blood 12/10/2024 8:00 AM CDT 12/10/2024 8:00 AM CDT us Indiana Mortensen MD LAB POCT ORDERABLES - DEVICE Final Result [facility] Department [place] [address] * Critical Care (12/10/2024 7:00 AM CDT) [...] plan with the ICU team and other medical/solutions consultant staff, making frequent assessments and decisions [...] documenting in the medical record us Angela Magdalene Griesbaum HAT LINING PASTER IN CLINIC/BEDSIDE OR DERABLES Final Result * (ABNORMAL) Blood gas, arterial (12/10/2024 6:30 AM CDT) pH, Art 7.41 7.35 - 7.45 PCO2, Arterial 35 35 - 45 mmHg [facility] PO2, Arterial 165(H) 83 - 108 mmHg [facility] HCO3 Art (Calculated) 22 20 - 30 mmol/L [facility] BE, art -2 mmol/L [facility] Comment: Interpretive Data No Reference Range Established Current Interpretive Data was last revised on 2017 O2 Sat Art (Measured) 98(H) 90 - 95 % [facility] Blood 12/10/2024 6:30 AM CDT 12/10/2024 6:40 AM CDT Gordy George MD LAB BLOOD ORDERABL ES Final Result Performing Organization Address [facility]/ZIP Co de Phone Number [facility] Department [place] [employer] [place] [address] * POCT glucose (12/10/2024 6:29 AM CDT) Glucose, POC 153 70 - 199 mg/dL Blood 12/10/2024 6:29 AM CDT 12/10/2024 6:29 AM CDT Indiana Mortensen MD LAB POCT ORDERABLES - DEVICE Final Result [facility] Department [place] [place] [address] * POCT glucose (12/10/2024 4:44 AM CDT) Glucose, POC 172 70 - 199 mg/dL Blood 12/10/2024 4:44 AM CDT 12/10/2024 4:44 AM CDT Indiana Mortensen MD LAB POCT ORDERABLES - DEVICE Final Result Performing Organization Address [facility] Co de Phone Number [facility] [place] [address] * Potassium (12/10/2024 4:44 AM CDT) Potassium, pl 4.9 3.3 - 4.9 mmol/L Blood 12/10/2024 4:44 AM CDT 12/10/2024 5:19 AM CDT N[facility]ative [facility] - 12/10/2024 6:03 AM CDT Provider to discontinue after two normal results. us Angela Cox NP LAB BLOOD ORDERABLES Final Result Performing Organization Address [facility] Co de Phone Number [facility] [place] [address] * POCT glucose (12/10/2024 1:58 AM CDT) Glucose, POC 130 70 - 199 mg/dL Blood 12/10/2024 1:58 AM CDT 12/10/2024 1:58 AM CDT us Indiana Mortensen MD LAB POCT ORDERABLES - DEVICE Final Result Performing Organization Address [facility] Co de Phone Number [facility] Department [place] [address] * POCT glucose (12/10/2024 12:21 AM CDT) Glucose, POC 156 70 - 199 mg/dL Blood 12/10/2024 12:2 1 AM CDT 12/10/2024 12:21 AM CDT Indiana Mortensen MD LAB POCT ORDERABLES - DEVICE Final Result Performing Organization Address [facility] Co de Phone Number [facility] [place] [address] * (ABNORMAL) Potassium (12/10/2024 12:21 AM CDT) Potassium, pl 5.1(H) 3.3 - 4.9 mmol/L Blood 12/10/2024 12:2 1 AM CDT 12/10/2024 12:42 AM CDT Narrative [facility] - 12/10/2024 1:42 AM CDT Provider to discontinue after two normal results. Angela Cox HAT LINING PASTER LAB BLOOD ORDERABLES Final Result Performing Organization Address City/[facility] [place] [address] * POCT glucose (12/09/2024 11:20 PM CDT) [facility] Signature Glucose, POC 170 70 - 199 mg/dL Blood 12/09/2024 11:2 0 PM CDT 12/09/2024 11:20 PM CDT Indiana Mortensen MD LAB POCT ORDERABLES - DEVICE Final Result Performing Organization Address City/[facility] Co de Phone Number [facility] [place] [address] * (ABNORMAL) POCT glucose (12/09/2024 10:29 PM CDT) Glucose, POC 207(H) 70 - 199 mg/dL Blood 12/09/2024 10:2 9 PM CDT 12/09/2024 10:29 PM CDT Indiana Mortensen MD LAB POCT ORDERABLES - DEVICE Final Result Performing Organization Address City/[facility] Co de Phone Number [facility] [place] [address] * Potassium, whole blood (12/09/2024 10:26 PM CDT) Potassium, bld 4.8 3.3 - 4.9 mmol/L Blood 12/09/2024 10:2 6 PM CDT 12/09/2024 10:39 PM CDT Angela Chloe Cox HAT LINING PASTER LAB BLOOD ORDERABLES Final Result [facility] [place] [address] * eGFR (12/09/2024 10:26 PM CDT) eGFR [...] CDT 12/09/2024 10:44 PM CDT Angela Cox HAT LINING PASTER LAB BLOOD ORDERABLES Final Result [facility] [place] [address] * Protime-INR (12/09/2024 10:26 PM CDT) Pathologist [facility] PT 12.0 9.7 - 13.0 sec INR 1.11 0.90 - 1.20 [facility] Comment: Interpretive data Oral anticoagulant therapeutic ranges: Venous thromboembolism prophylaxis or treatment: 2.0-3.0 CARDIOLOGY Standard range: 2.0-3.0 High-intensity range: 2.5-3.5 Refer to indication-specific guidelines for appropriate target ranges for prosthetic heart valve replacement. Current interpretive data was last revised on 2019. Blood 12/09/2024 10:2 6 PM CDT 12/09/2024 10:46 PM CDT us Angela Cox HAT LINING PASTER LAB BLOOD ORDERABLES Final Result [facility] Department [place] [address] * (ABNORMAL) CBC without differential (12/09/2024 10:26 PM CDT) Pathologist [facility] WBC 23.21(H) 3.80 - 9.90 K/cumm Hgb 9.8(L) 11.9 - 15.5 g/dL [facility] Hct 28.0(L) 35.6 - 45.5 % [facility] Plt 278 150 - 400 K/cumm [facility] MPV 8.4(L) 9.1 - 12.3 fL [facility] RBC 3.20(L) 3.90 - 5.20 M/cumm [facility] MCV 87.5 81.3 - 96.4 fL [facility] MCH 30.6 27.1 - 33.3 pg [facility] MCHC 35.0 32.3 - 35.7 g/dL [facility] RDW CV 13.8 11.1 - 14.9 % [facility] RDW SD 43.8 35.7 - 48.1 fL [facility] NRBC abs 0.00 0.00 - 0.01 K/cumm [facility] Blood 12/09/2024 10:2 6 PM CDT 12/09/2024 10:45 PM CDT Angela Cox HAT LINING PASTER LAB BLOOD ORDERABLES Final Result Performing Organization Address [facility] Co de Phone Number [facility] [place] [address] * Type and screen (12/09/2024 10:26 PM CDT) Sarah, indirect Negative ABO Rh B Negative [facility] Blood 12/09/2024 10:2 6 PM CDT 12/09/2024 11:00 PM CDT Narrative [facility] - 12/10/2024 12:09 AM CDT Has the patient had Daratumumab or Isatuximab in the past 6 months?->Unknown Indiana Mortensen MD LAB BLOOD BANK TEST ORDERABLE S Final Result Performing Organization Address [facility] [place] [address] * (ABNORMAL) Potassium (12/09/2024 10:26 PM CDT) Potassium, pl 5.0(H) 3.3 - 4.9 mmol/L Blood 12/09/2024 10:2 6 PM CDT 12/09/2024 10:44 PM CDT Narrative [facility] - 12/09/2024 11:07 PM CDT Provider to discontinue after two normal results. Angela Cox HAT LINING PASTER LAB BLOOD ORDERABLES Final Result Performing Organization Address City/[facility] [place] [address] * (ABNORMAL) Phosphorus (12/09/2024 10:26 PM CDT) Phosphorus, pl 4.6(H) 2.3 - 4.5 mg/dL Blood 12/09/2024 10:2 6 PM CDT 12/09/2024 10:44 PM CDT Angela Reidvidya HAT LINING PASTER LAB BLOOD ORDERABLES Final Result Performing Organization Address [facility] de Phone Number [facility] Department [place] [address] * (ABNORMAL) Magnesium (12/09/2024 10:26 PM CDT) Magnesium 2.6(H) 1.4 - 2.5 mg/dL Blood 12/09/2024 10:2 6 PM CDT 12/09/2024 10:44 PM CDT Angela Brownenicki Cox HAT LINING PASTER LAB BLOOD ORDERABLES Final Result Performing Organization Address [facility] de Phone Number [facility] Department [place] [address] * Lipid panel (12/09/2024 10:26 PM CDT) [...] revised on 2018. Triglycerides 106 <=149 mg/dL [facility] Comment: Interpretive Data Ages [...] revised on 2018. HDL 41 >=40 mg/dL [facility] Comment: Interpretive Data Ages [...] on 2018. LDL, calculated 31 <=129 mg/dL [facility] Comment: Interpretive Data Ages [...] NCEP Expert Panel. Circulation 2004;110:227 3. Júnior Salazar al. NIKHIL Cardiol. 2020 November 13;5(5):540-548. doi: 10.1001/jamacardio.2020.0013 Current Interpretive Data was last revised on 2024. Non-HDL Cholesterol 51 mg/dL [facility] Comment: Interpretive Data Ages < or = [...] last revised on 2018. Chol/HDL ratio 2 [facility] Blood 12/09/2024 10:2 6 PM CDT 12/09/2024 10:44 PM CDT Narrative [facility] - 12/09/2024 11:59 PM CDT Reflex us Indiana Mortensen MD LAB BLOOD ORDERABLES Final Re sult [facility] Department [place] [address] * (ABNORMAL) Basic metabolic panel (12/09/2024 10:26 PM CDT) Sodium 140 135 - 145 mmol/L Potassium, pl 4.9 3.3 - 4.9 mmol/L [facility] Chloride 108 97 - 110 mmol/L [facility] CO2 23 22 - 32 mmol/L [facility] Anion gap 9 2 - 15 mmol/L [facility] BUN 17 6 - 25 mg/dL [facility] Creatinine 0.96 0.60 - 1.10 mg/dL [facility] Glucose 201(H) 70 - 199 mg/dL [facility] Comment: Interpretive Data Fasting [...] 2022. Calcium 8.5 8.5 - 10.3 mg/dL [facility] Blood 12/09/2024 10:2 6 PM CDT 12/09/2024 10:44 PM CDT Angela Corona Brooke HAT LINING PASTER LAB BLOOD ORDERABLES Final Result Performing Organization Address City/[facility]/ZIP Co de Phone Number [facility] [place] [employer] [address] * POCT glucose (12/09/2024 9:39 PM CDT) Glucose, POC 183 70 - 199 mg/dL Blood 12/09/2024 9:39 PM CDT 12/09/2024 9:39 PM CDT Indiana Mortensen MD LAB POCT ORDERABLES - DEVICE Final Result Performing Organization Address [facility] de Phone Number [facility] [place] [address] * POCT glucose (12/09/2024 9:10 PM CDT) Glucose, POC 180 70 - 199 mg/dL Blood 12/09/2024 9:10 PM CDT 12/09/2024 9:10 PM CDT Indiana Mortensen MD LAB POCT ORDERABLES - DEVICE Final Result Performing Organization Address [facility] Co de Phone Number [facility] [place] [address] * (ABNORMAL) POC Blood Gas and Chemistries, Arterial - (12/09/2024 8:14 PM CDT) pH, Art POC 7.38 7.35 - 7.45 pCO2, Art POC 37 35 - 45 mmHg [facility] pO2, Art POC 112(H) 83 - 108 mmHg [facility] Na, POC 138 135 - 145 mmol/L [facility] K POC 5.4(H) 3.3 - 4.9 mmol/L [facility] Comment: Interpretive Data Not all point of care methods assess for hemolysis. Confirm with instrument and retest K+ if not consistent with clinical signs and symptoms. Current Interpretive Data was last revised on 2023. Cl, POC 109 97 - 110 mmol/L [facility] Ionized Ca, POC 4.82 4.50 - 5.10 mg/dL [facility] Glucose, POC 163 70 - 199 mg/dL [facility] Lactate POC 2.5(H) 0.7 - 2.0 mmol/L [facility] SO2 (chandra) arterial 100(H) 90 - 95 % [facility] Base excess, POC -2.9 mmol/L [facility] HCO3, Art POC 22 20 - 30 mmol/L [facility] Hct, POC 32.0(L) 36.3 - 45.3 % [facility] Total Hb, POC 10.5(L) 11.9 - 15.5 g/dL [facility] Blood 12/09/2024 8:14 PM CDT 12/09/2024 8:14 PM CDT us Indiana Mortensen MD LAB POCT ORDERABLES - DEVICE Final Result [facility] Department [place] [address] * Critical Care (12/09/2024 7:24 PM CDT) [...] plan with the ICU team and other medical/solutions consultant staff, making frequent assessments and decisions [...] LAB POCT ORDERABLES - DEVICE Final Result [facility] Department [place] [address] * (ABNORMAL) POC Blood Gas and Chemistries, Arterial - (12/09/2024 6:06 PM CDT) pH, Art POC 7.36 7.35 - 7.45 pCO2, Art POC 40 35 - 45 mmHg [facility] pO2, Art POC 98 83 - 108 mmHg [facility] Na, POC 136 135 - 145 mmol/L [facility] K POC 5.0(H) 3.3 - 4.9 mmol/L [facility] Comment: Interpretive Data Not all point of care methods assess for hemolysis. Confirm with instrument and retest K+ if not consistent with clinical signs and symptoms. Current Interpretive Data was last revised on 2023. Cl, POC 109 97 - 110 mmol/L [facility] Ionized Ca, POC 5.00 4.50 - 5.10 mg/dL [facility] Glucose, POC 177 70 - 199 mg/dL [facility] Lactate POC 2.0 0.7 - 2.0 mmol/L [facility] SO2 (chandra) arterial 99(H) 90 - 95 % [facility] Base excess, POC -2.6 mmol/L [facility] HCO3, Art POC 23 20 - 30 mmol/L [facility] Hct, POC 30.0(L) 36.3 - 45.3 % [facility] Total Hb, POC 10.1(L) 11.9 - 15.5 g/dL [facility] Blood 12/09/2024 6:06 PM CDT 12/09/2024 6:06 PM CDT us Indiana Mortensen MD LAB POCT ORDERABLES - DEVICE Final Result Performing Organization Address City/[facility]/ZIP Co de Phone Number [facility] Department [place] [address] * Oxyhemoglobin, central venous (12/09/2024 5:40 PM CDT) Oxyhemoglobin, CV 93.8 % Comment: Interpretive Data No reference range established. Current interpretive data was last revised 2019. Blood 12/09/2024 5:40 PM CDT 12/09/2024 5:46 PM CDT us Angela Cox HAT LINING PASTER LAB BLOOD ORDERABLES Final Result [facility] Department [place] [address] * POCT glucose (12/09/2024 5:11 PM CDT) Glucose, POC 142 70 - 199 mg/dL Blood 12/09/2024 5:11 PM CDT 12/09/2024 5:11 PM CDT Indiana Mortensen MD LAB POCT ORDERABLES - DEVICE Final Result ALEX MCKEON [facility] Department [place] [address] * (ABNORMAL) POC Blood Gas and Chemistries, Arterial - (12/09/2024 4:54 PM CDT) Pathologist [facility] pH, Art POC 7.35 7.35 - 7.45 pCO2, Art POC 42 35 - 45 mmHg [facility] pO2, Art POC 74(L) 83 - 108 mmHg [facility] Na, POC 138 135 - 145 mmol/L [facility] K POC 5.7(H) 3.3 - 4.9 mmol/L [facility] Comment: Interpretive Data Not all point of care methods assess for hemolysis. Confirm with instrument and retest K+ if not consistent with clinical signs and symptoms. Current Interpretive Data was last revised on 2023. Cl, POC 108 97 - 110 mmol/L [facility] Ionized Ca, POC 5.12(H) 4.50 - 5.10 mg/dL [facility] Glucose, POC 155 70 - 199 mg/dL [facility] Lactate POC 1.8 0.7 - 2.0 mmol/L [facility] SO2 (chandra) arterial 97(H) 90 - 95 % [facility] Base excess, POC -2.3 mmol/L [facility] HCO3, Art POC 23 20 - 30 mmol/L [facility] Hct, POC 32.0(L) 36.3 - 45.3 % [facility] Total Hb, POC 10.5(L) 11.9 - 15.5 g/dL [facility] Blood 12/09/2024 4:54 PM CDT 12/09/2024 4:54 PM CDT Indiana Mortensen MD LAB POCT ORDERABLES - DEVICE Final Result ALEX [facility] Department [place] [address] * eGFR (12/09/2024 4:51 PM CDT) Pathologist [facility] eGFR 69 >=60 mL/min/1. 73 m2 Comment: [...] 12/09/2024 5:10 PM CDT us Angela Cox HAT LINING PASTER LAB BLOOD ORDERABLES Final Result ALEX [facility] Department [place] [address] * (ABNORMAL) CBC without differential (12/09/2024 4:51 PM CDT) [facility] WBC 16.69(H) 3.80 - 9.90 K/cumm Hgb 10.0(L) 11.9 - 15.5 g/dL [facility] Hct 28.4(L) 35.6 - 45.5 % [facility] Plt 210 150 - 400 K/cumm [facility] MPV 8.5(L) 9.1 - 12.3 fL [facility] RBC 3.26(L) 3.90 - 5.20 M/cumm [facility] MCV 87.1 81.3 - 96.4 fL [facility] MCH 30.7 27.1 - 33.3 pg [facility] MCHC 35.2 32.3 - 35.7 g/dL [facility] RDW CV 13.7 11.1 - 14.9 % [facility] RDW SD 43.0 35.7 - 48.1 fL [facility] NRBC abs 0.00 0.00 - 0.01 K/cumm [facility] Blood 12/09/2024 4:51 PM CDT 12/09/2024 5:09 PM CDT us Angela Cox NP LAB BLOOD ORDERABLES Final Result Performing Organization Address [facility] Co de Phone Number [facility] [place] [address] * Hemoglobin A1c (12/09/2024 4:51 PM CDT) Pathologist [facility] Hgb A1C 5.0 4.0 - 5.6 % Estimated Average Glucose 97 mg/dL [facility] Comment: The ADA recommends [...] ORDERABLES Final Re sult Performing Organization Address City/[facility]/ZIP Co de Phone Number [facility] [place] [address] * (ABNORMAL) Comprehensive metabolic panel (12/09/2024 4:51 PM CDT) Pathologist [facility] Sodium 139 135 - 145 mmol/L Potassium, pl 5.6(H) 3.3 - 4.9 mmol/L [facility] Chloride 109 97 - 110 mmol/L [facility] CO2 23 22 - 32 mmol/L [facility] Anion gap 7 2 - 15 mmol/L [facility] BUN 18 6 - 25 mg/dL [facility] Creatinine 0.93 0.60 - 1.10 mg/dL [facility] Glucose 145 70 - 199 mg/dL [facility] Comment: Interpretive Data Fasting [...] 2022. Calcium 9.0 8.5 - 10.3 mg/dL [facility] Bilirubin, total 0.9 0.1 - 1.2 mg/dL [facility] Protein, pl 5.8(L) 6.5 - 8.5 g/dL [facility] Albumin 3.7 3.5 - 5.0 g/dL [facility] Alk phos 44 40 - 130 Units/L [facility] ALT 29 7 - 45 Units/L [facility] AST 118(H) 10 - 45 Units/L [facility] Blood 12/09/2024 4:51 PM CDT 12/09/2024 5:10 PM CDT us Angela Cox NP LAB BLOOD ORDERABLES Final Result [facility] [place] [address] * POCT glucose (12/09/2024 4:17 PM CDT) [facility] Glucose, POC 122 70 - 199 mg/dL Blood 12/09/2024 4:17 PM CDT 12/09/2024 4:17 PM CDT us Indiana Mortensen MD LAB POCT ORDERABLES - DEVICE Final Result ALEX [facility] Department [place] [address] * XR Chest 1 View (12/09/2024 4:16 [...] it. Electronically signed by: Herrera Robbins M.D. us Angela Cox NP IMG XR PROCEDURES Fi nal Result * ECG 12 lead (12/09/2024 3:41 PM CDT) Ventricular Rate EKG/Min 96 BPM [facility] Atrial Rate 96 BPM [facility] MA-Interval (MSEC) 166 ms [facility] QRS-Interval (MSEC) 142 ms [facility] QT-Interval (MSEC) 440 ms [facility] QTc 555 ms [facility] P [place] 29 degrees [facility] R [place] -65 degrees [facility] T [place] 30 degrees [facility] Diagnosis Sinus rhythm with marked sinus arrhythmia Right bundle branch block Left anterior fascicular block Bifascicular block Abnormal ECG When compared with ECG of 12-NOV-2024 16:13, (RBBB and left anterior fascicular block) is now Present Confirmed by KAMILA MCKAY M.D ([id number]) on 12/10/2024 8:54:31 PM [facility] 12/09/2024 3:41 PM CDT 12/10/2024 8:54 PM CDT us Maritza AUGUSTIN ECG ORDERABLES Final Result [facility]MED [...] plan with the ICU team and other medical/solutions consultant staff, making frequent assessments and decisions [...] documenting in the medical record Angela Cox NP IN CLINIC/BEDSIDE OR DERABLES Final Result * Infection Prevention Justice auris PCR, surveillance Axilla/Groin (12/09/2024 3:38 PM CDT) Justice auris DNA Not Detected Not Detected [facility] Comment: Interpretive Data Testing performed by [facility] using the Stacie shirin 6800 Justice auris assay. This assay detects DNA from Justice auris using Real-Time PCR. This assay is laboratory developed and is not cleared by the [place] Food and Drug Administration. The performance characteristics have been verified by the [facility]. Axilla/Groin 12/09/2024 3:38 PM CDT 12/09/2024 4:29 PM CDT John Paul Baldwin MD LAB MICROBIOLOGY - GENERAL ORDER ROSY Final Result [facility] Department [place] [address] [facility] * Oxyhemoglobin, central venous (12/09/2024 3:38 PM CDT) Oxyhemoglobin, CV 95.3 % Comment: Interpretive Data No reference range established. Current interpretive data was last revised 2019. Blood 12/09/2024 3:38 PM CDT 12/09/2024 4:13 PM CDT us Angela Cox NP LAB BLOOD ORDERABLES Final Result ALEX [facility] [place] [address] * (ABNORMAL) POC Blood Gas and Chemistries, Arterial - (12/09/2024 3:25 PM CDT) pH, Art POC 7.34(L) 7.35 - 7.45 pCO2, Art POC 43 35 - 45 mmHg [facility] pO2, Art POC 158(H) 83 - 108 mmHg [facility] Na, POC 139 135 - 145 mmol/L [facility] K POC 5.5(H) 3.3 - 4.9 mmol/L [facility] Comment: Interpretive Data Not all point of care methods assess for hemolysis. Confirm with instrument and retest K+ if not consistent with clinical signs and symptoms. Current Interpretive Data was last revised on 2023. Cl, POC 109 97 - 110 mmol/L [facility] Ionized Ca, POC 5.28(H) 4.50 - 5.10 mg/dL [facility] Glucose, POC 133 70 - 199 mg/dL [facility] Lactate POC 1.4 0.7 - 2.0 mmol/L [facility] SO2 (chandra) arterial 100(H) 90 - 95 % [facility] Base excess, POC -2.5 mmol/L [facility] HCO3, Art POC 23 20 - 30 mmol/L [facility] Hct, POC 31.0(L) 36.3 - 45.3 % [facility] Total Hb, POC 10.3(L) 11.9 - 15.5 g/dL [facility] Blood 12/09/2024 3:25 PM CDT 12/09/2024 3:25 PM CDT us Indiana Mortensen MD LAB POCT ORDERABLES - DEVICE Final Result [facility]LEX [facility] Department [place] [address] * (ABNORMAL) POC Blood Gas and Chemistries, Arterial - (12/09/2024 2:01 PM CDT) pH, Art POC 7.33(L) 7.35 - 7.45 pCO2, Art POC 44 35 - 45 mmHg [facility] pO2, Art POC 143(H) 83 - 108 mmHg [facility] Na, POC 140 135 - 145 mmol/L [facility] K POC 4.8 3.3 - 4.9 mmol/L [facility] Comment: Interpretive Data Not all point of care methods assess for hemolysis. Confirm with instrument and retest K+ if not consistent with clinical signs and symptoms. Current Interpretive Data was last revised on 2023. Cl, POC 113(H) 97 - 110 mmol/L [facility] Ionized Ca, POC 5.27(H) 4.50 - 5.10 mg/dL [facility] Glucose, POC 140 70 - 199 mg/dL [facility] Lactate POC 2.6(H) 0.7 - 2.0 mmol/L [facility] SO2 (chandra) arterial 100(H) 90 - 95 % [facility] Base excess, POC -2.7 mmol/L [facility] HCO3, Art POC 23 20 - 30 mmol/L [facility] Hct, POC 31.0(L) 36.3 - 45.3 % [facility] Total Hb, POC 10.3(L) 11.9 - 15.5 g/dL [facility] Blood 12/09/2024 2:01 PM CDT 12/09/2024 2:01 PM CDT us Indiana Mortensen MD LAB POCT ORDERABLES - DEVICE Final Result [facility] Department [place] [address] * Transfuse plasma (12/09/2024 1:19 PM CDT) Blood us Deana Cruz MD BLOOD TRANSFUSION ORDERABLES Final Result Performing Organization Address [facility] Co de Phone Number [facility] [place] [address] * Prepare plasma: 1 Units (12/09/2024 12:52 PM CDT) [facility] Product code [id number] Unit Number [id number] [facility] Product Blood Type BPOS [facility] Dispense Status PRESUMED TRANSFUSED [facility] Blood Venous blood specimen / Unknown 12/09/2024 12:52 PM CDT 12/09/2024 12:53 PM CDT Narrative [facility] - 12/10/2024 8:01 AM CDT Date required:-[id number] FFP # of Units:-1-Units Reasons:-Immediate need for surgical intervention Deana Cruz MD BLOOD BANK PRODUCT ORDERABLE S Final Result Performing Organization Address [facility] Co de Phone Number [facility] [place] [address] * (ABNORMAL) POCT prothrombin time (12/09/2024 12:43 PM CDT) [facility] PT, POC 31.1(H) 11.7 - 16.6 sec INR, POC 2.4(H) 0.9 - 1.2 [facility] Blood 12/09/2024 12:4 3 PM CDT 12/09/2024 12:43 PM CDT Indiana Mortensen MD LAB POCT ORDERABLES - DEVICE Final Result Performing Organization Address [facility] Co de Phone Number [facility] [employer] [place], [place] [id number] * (ABNORMAL) POCT hemoglobin, hematocrit and platelet count (12/09/2024 12:43 PM CDT) Hgb, POC 7.9(L) 11.9 - 15.5 g/dL Hematocrit POC 23.9(L) 35.6 - 45.5 % [facility] Platelet POC 179 150 - 400 K/cumm [facility] Blood 12/09/2024 12:4 3 PM CDT 12/09/2024 12:43 PM CDT Indiana Mortensen MD LAB POCT ORDERABLES - DEVICE Final Result Performing Organization Address [facility] de Phone Number [facility] [place] [address] * (ABNORMAL) POCT Partial thromboplastin time (PTT) (12/09/2024 12:43 PM CDT) APTT, POC 29.6(L) 32.5 - 46.1 sec Blood 12/09/2024 12:4 3 PM CDT 12/09/2024 12:43 PM CDT Indiana Mortensen MD LAB POCT ORDERABLES - DEVICE Final Result Performing Organization Address [facility] de Phone Number [facility] [place] [employer] [address] * (ABNORMAL) POCT heparin/ACT CPB (12/09/2024 12:39 PM CDT) Heparin POC 0.0 units/mL ACT, CPB 102(L) 112 - 174 sec [facility] Blood 12/09/2024 12:3 9 PM CDT 12/09/2024 12:39 PM CDT Indiana Mortensen MD LAB POCT ORDERABLES - DEVICE Final Result Performing Organization Address [facility] de Phone Number [facility] [place] [address] * (ABNORMAL) POC Blood Gas and Chemistries, Arterial - (12/09/2024 12:37 PM CDT) pH, Art POC 7.36 7.35 - 7.45 pCO2, Art POC 39 35 - 45 mmHg [facility] pO2, Art POC 263(H) 83 - 108 mmHg [facility] Na, POC 140 135 - 145 mmol/L [facility] K POC 4.3 3.3 - 4.9 mmol/L [facility] Comment: Interpretive Data Not all point of care methods assess for hemolysis. Confirm with instrument and retest K+ if not consistent with clinical signs and symptoms. Current Interpretive Data was last revised on 2023. Cl, POC 110 97 - 110 mmol/L [facility] Ionized Ca, POC 6.04(H) 4.50 - 5.10 mg/dL [facility] Glucose, POC 172 70 - 199 mg/dL [facility] Lactate POC 3.7(H) 0.7 - 2.0 mmol/L [facility] SO2 (chandra) arterial 100(H) 90 - 95 % [facility] Base excess, POC -3.2 mmol/L [facility] HCO3, Art POC 22 20 - 30 mmol/L [facility] Hct, POC 25.0(L) 36.3 - 45.3 % [facility] Total Hb, POC 8.4(L) 11.9 - 15.5 g/dL [facility] Blood 12/09/2024 12:3 7 PM CDT 12/09/2024 12:37 PM CDT us Indiana Mortensen MD LAB POCT ORDERABLES - DEVICE Final Result [facility] Department [place] [address] * (ABNORMAL) POC Blood Gas and Chemistries, Arterial - (12/09/2024 12:05 PM CDT) pH, Art POC 7.37 7.35 - 7.45 pCO2, Art POC 40 35 - 45 mmHg [facility] pO2, Art POC 423(H) 83 - 108 mmHg [facility] Na, POC 139 135 - 145 mmol/L [facility] K POC 5.3(H) 3.3 - 4.9 mmol/L [facility] Comment: Interpretive Data Not all point of care methods assess for hemolysis. Confirm with instrument and retest K+ if not consistent with clinical signs and symptoms. Current Interpretive Data was last revised on 2023. Cl, POC 109 97 - 110 mmol/L [facility] Ionized Ca, POC 4.11(L) 4.50 - 5.10 mg/dL [facility] Glucose, POC 170 70 - 199 mg/dL [facility] Lactate POC 4.1(C) 0.7 - 2.0 mmol/L [facility] SO2 (chandra) arterial 100(H) 90 - 95 % [facility] Base excess, POC -2.0 mmol/L [facility] HCO3, Art POC 23 20 - 30 mmol/L [facility] Hct, POC 23.0(L) 36.3 - 45.3 % [facility] Total Hb, POC 7.6(L) 11.9 - 15.5 g/dL [facility] Blood 12/09/2024 12:0 5 PM CDT 12/09/2024 12:05 PM CDT Indiana Mortensen MD LAB POCT ORDERABLES - DEVICE Final Result Performing Organization Address City/[facility]/ZIP Co de Phone Number [facility] Department [place] [address] * (ABNORMAL) POCT heparin/ACT CPB (12/09/2024 12:03 PM CDT) Heparin POC <2.8 units/mL ACT, CPB 483(H) 112 - 174 sec [facility] Blood 12/09/2024 12:0 3 PM CDT 12/09/2024 12:03 PM CDT Indiana Mortensen MD LAB POCT ORDERABLES - DEVICE Final Result [facility] Department [place] [address] * (ABNORMAL) POCT heparin/ACT CPB (12/09/2024 11:32 AM CDT) Pathologist [facility] Heparin POC 4.1 units/mL ACT, CPB 643(H) 112 - 174 sec [facility] Blood 12/09/2024 11:3 2 AM CDT 12/09/2024 11:32 AM CDT us Indiana Mortensen MD LAB POCT ORDERABLES - DEVICE Final Result Performing Organization Address City/[facility] Co de Phone Number [facility] Department [place] [address] * (ABNORMAL) POC Blood Gas and Chemistries, Arterial - (12/09/2024 11:31 AM CDT) [facility] Signature pH, Art POC 7.37 7.35 - 7.45 pCO2, Art POC 40 35 - 45 mmHg [facility] pO2, Art POC 340(H) 83 - 108 mmHg [facility] Na, POC 139 135 - 145 mmol/L [facility] K POC 4.8 3.3 - 4.9 mmol/L [facility] Comment: Interpretive Data Not all point of care methods assess for hemolysis. Confirm with instrument and retest K+ if not consistent with clinical signs and symptoms. Current Interpretive Data was last revised on 2023. Cl, POC 109 97 - 110 mmol/L [facility] Ionized Ca, POC 4.44(L) 4.50 - 5.10 mg/dL [facility] Glucose, POC 170 70 - 199 mg/dL [facility] Lactate POC 3.4(H) 0.7 - 2.0 mmol/L [facility] SO2 (chandra) arterial 100(H) 90 - 95 % [facility] Base excess, POC -2.0 mmol/L [facility] HCO3, Art POC 23 20 - 30 mmol/L [facility] Hct, POC 21.0(L) 36.3 - 45.3 % [facility] Total Hb, POC 7.1(L) 11.9 - 15.5 g/dL [facility] Blood 12/09/2024 11:3 1 AM CDT 12/09/2024 11:31 AM CDT Indiana Mortensen MD LAB POCT ORDERABLES - DEVICE Final Result Performing Organization Address City/[facility] Co de Phone Number [facility] [place] [address] * (ABNORMAL) POCT heparin/ACT CPB (12/09/2024 11:01 AM CDT) Pathologist [facility] Heparin POC 3.4 units/mL ACT, CPB 538(H) 112 - 174 sec [facility] Blood 12/09/2024 11:0 1 AM CDT 12/09/2024 11:01 AM CDT Indiana Mortensen MD LAB POCT ORDERABLES - DEVICE Final Result Performing Organization Address City/[facility] de Phone Number [facility] [place] [address] * (ABNORMAL) POC Blood Gas and Chemistries, Arterial - (12/09/2024 11:00 AM CDT) pH, Art POC 7.40 7.35 - 7.45 pCO2, Art POC 40 35 - 45 mmHg [facility] pO2, Art POC 257(H) 83 - 108 mmHg [facility] Na, POC 139 135 - 145 mmol/L [facility] K POC 4.7 3.3 - 4.9 mmol/L [facility] Comment: Interpretive Data Not all point of care methods assess for hemolysis. Confirm with instrument and retest K+ if not consistent with clinical signs and symptoms. Current Interpretive Data was last revised on 2023. Cl, POC 110 97 - 110 mmol/L [facility] Ionized Ca, POC 4.31(L) 4.50 - 5.10 mg/dL [facility] Glucose, POC 170 70 - 199 mg/dL [facility] Lactate POC 2.9(H) 0.7 - 2.0 mmol/L [facility] SO2 (chandra) arterial 100(H) 90 - 95 % [facility]ER [facility] Base excess, POC 0.0 mmol/L [facility] HCO3, Art POC 25 20 - 30 mmol/L [facility] Hct, POC 23.0(L) 36.3 - 45.3 % [facility] Total Hb, POC 7.6(L) 11.9 - 15.5 g/dL [facility] Blood 12/09/2024 11:0 0 AM CDT 12/09/2024 11:00 AM CDT us Indiana Mortensen MD LAB POCT ORDERABLES - DEVICE Final Result Performing Organization Address City/State/[facility] Co de Phone Number [facility] Department [place] [address] * Surgical pathology (12/09/2024 10:36 AM CDT) Tissue (Heart Valve) 12/09/2024 10:36 AM CDT Narrative PATHOLOGY [facility] - 12/15/2024 5:28 PM CDT EPIC results best viewed via link to PDF [facility] [place] [address] Note to Patients: This report may contain [...] Gender: F : 1960 (Age: 64) Address: [address] [place] [id number] Hospital #: [id number] Taken:12/09/2024 Received:12/09/2024 Reported: 12/15/2024 Patient Type: [facility] Inpatient Service: Cardiothoracic Location: [facility] 0082 Physician(s): MD Pacheco Perez DO Diagnosis: A. [...] 0.5 to 1.3 cm in greatest dimension. Envelope Press Operator sections are submitted. Labeled A1. decal one. Jar 1. rxr/12/09/2024 17:08 PA(s): Lisandra Tovar MS, PA(ASCP)CM By this signature, I attest that the above diagnosis is based upon my personal examination of the slides(and/or other material). Addenda/Procedures The performance characteristics of some immunohistochemical stains, fluorescence in-situ hybridization tests and immunophenotyping by flow cytometry cited in this report (if any) were determined by the Surgical Pathology and Flow Cytometry Departments at [facility] as part of an ongoing research associate quality control qc program and in compliance with federally mandated [...] Surgical Pathology and Flow Cytometry Departments of [facility]. It has not been cleared or approved by the U. [place]. Food and Drug Administration. IMAGES AND SCANNED DOCUMENTS, IF INCLUDED, ONLY VIEWABLE IN PDF VERSION OF REPORT Indiana Mortensen MD LAB PATHOLOGY ORDERABLES Brenda l Result Performing Organization Address City/[facility]/ZIP Co de Phone Number [facility] 3rd Floor [place], [place] [phone] * (ABNORMAL) POCT heparin/ACT CPB (12/09/2024 10:34 AM CDT) Heparin POC 3.4 units/mL ACT, CPB 578(H) 112 - 174 sec [facility] Blood 12/09/2024 10:3 4 AM CDT 12/09/2024 10:34 AM CDT Indiana Mortensen MD LAB POCT ORDERABLES - DEVICE Final Result Performing Organization Address City/[facility]/ZIP Co de Phone Number [facility] Department [place] [address] * (ABNORMAL) POC Blood Gas and Chemistries, Arterial - (12/09/2024 10:33 AM CDT) pH, Art POC 7.40 7.35 - 7.45 pCO2, Art POC 41 35 - 45 mmHg [facility] pO2, Art POC 284(H) 83 - 108 mmHg [facility] Na, POC 140 135 - 145 mmol/L [facility] K POC 4.6 3.3 - 4.9 mmol/L [facility] Comment: Interpretive Data Not all point of care methods assess for hemolysis. Confirm with instrument and retest K+ if not consistent with clinical signs and symptoms. Current Interpretive Data was last revised on 2023. Cl, POC 109 97 - 110 mmol/L [facility] Ionized Ca, POC 4.32(L) 4.50 - 5.10 mg/dL [facility] Glucose, POC 175 70 - 199 mg/dL [facility] Lactate POC 3.1(H) 0.7 - 2.0 mmol/L [facility] SO2 (chandra) arterial 100(H) 90 - 95 % [facility] Base excess, POC 0.5 mmol/L [facility] HCO3, Art POC 25 20 - 30 mmol/L [facility] Hct, POC 24.0(L) 36.3 - 45.3 % [facility] Total Hb, POC 7.9(L) 11.9 - 15.5 g/dL [facility] Blood 12/09/2024 10:3 3 AM CDT 12/09/2024 10:33 AM CDT Indiana Mortensen MD LAB POCT ORDERABLES - DEVICE Final Result Performing Organization Address City/[facility]/ZIP Co de Phone Number [facility] Department [place] [address] * (ABNORMAL) POCT heparin/ACT CPB (12/09/2024 10:07 AM CDT) [facility] Signature Heparin POC >4.7 units/mL ACT, CPB 698(H) 112 - 174 sec [facility] Blood 12/09/2024 10:0 7 AM CDT 12/09/2024 10:07 AM CDT Indiana Mortensen MD LAB POCT ORDERABLES - DEVICE Final Result [facility] Department [place] [address] * (ABNORMAL) POC Blood Gas and Chemistries, Arterial - (12/09/2024 10:06 AM CDT) pH, Art POC 7.24(L) 7.35 - 7.45 pCO2, Art POC 48(H) 35 - 45 mmHg [facility] pO2, Art POC 460(H) 83 - 108 mmHg [facility] Na, POC 138 135 - 145 mmol/L [facility] K POC 4.4 3.3 - 4.9 mmol/L [facility] Comment: Interpretive Data Not all point of care methods assess for hemolysis. Confirm with instrument and retest K+ if not consistent with clinical signs and symptoms. Current Interpretive Data was last revised on 2023. Cl, POC 109 97 - 110 mmol/L [facility] Ionized Ca, POC 4.53 4.50 - 5.10 mg/dL [facility] Glucose, POC 179 70 - 199 mg/dL [facility] Lactate POC 3.1(H) 0.7 - 2.0 mmol/L [facility] SO2 (chandra) arterial 100(H) 90 - 95 % [facility] Base excess, POC -6.6 mmol/L [facility] HCO3, Art POC 21 20 - 30 mmol/L [facility] Hct, POC 28.0(L) 36.3 - 45.3 % [facility] Total Hb, POC 9.3(L) 11.9 - 15.5 g/dL [facility] Blood 12/09/2024 10:0 6 AM CDT 12/09/2024 10:06 AM CDT us Indiana Mortensen MD LAB POCT ORDERABLES - DEVICE Final Result [facility] Department [place] [address] * (ABNORMAL) POC Blood Gas and Chemistries, Arterial - (12/09/2024 9:41 AM CDT) pH, Art POC 7.22(L) 7.35 - 7.45 pCO2, Art POC 57(H) 35 - 45 mmHg [facility] pO2, Art POC 134(H) 83 - 108 mmHg [facility] Na, POC 138 135 - 145 mmol/L [facility] K POC 4.4 3.3 - 4.9 mmol/L [facility] Comment: Interpretive Data Not all point of care methods assess for hemolysis. Confirm with instrument and retest K+ if not consistent with clinical signs and symptoms. Current Interpretive Data was last revised on 2023. Cl, POC 106 97 - 110 mmol/L [facility] Ionized Ca, POC 4.75 4.50 - 5.10 mg/dL [facility] Glucose, POC 158 70 - 199 mg/dL [facility] Lactate POC 1.9 0.7 - 2.0 mmol/L [facility] SO2 (chandra) arterial 99(H) 90 - 95 % [facility] Base excess, POC -5.0 mmol/L [facility] HCO3, Art POC 23 20 - 30 mmol/L [facility] Hct, POC 38.0 36.3 - 45.3 % [facility] Total Hb, POC 12.6 11.9 - 15.5 g/dL [facility] Blood 12/09/2024 9:41 AM CDT 12/09/2024 9:41 AM CDT Indiana Mortensen MD LAB POCT ORDERABLES - DEVICE Final Result Performing Organization Address City/[facility]/ZIP Co de Phone Number [facility] Department [place] [address] * (ABNORMAL) POCT heparin/ACT CPB (12/09/2024 9:35 AM CDT) Heparin POC 4.8 units/mL ACT, CPB 688(H) 112 - 174 sec [facility] Blood 12/09/2024 9:35 AM CDT 12/09/2024 9:35 AM CDT Indiana Mortensen MD LAB POCT ORDERABLES - DEVICE Final Result [facility] Department [place] [address] * MA AN 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 (12/09/2024 8:47 AM CDT) [...] code: ROSS placement and diagnostic exam, non-congenital (99120) ICD code(s) for medical necessity: I35.2 - [...] inferior: normal 16- Apical septal: normal 17- Derry: normal Valves: Aortic Valve: Annulus: calcified Leaflet [...] * Arterial Line (12/09/2024 8:23 AM CDT) Narrative Pasquale [...] Result * Airway (12/09/2024 8:23 AM CDT) Narrative Pasquale Dela [...] response slope POC 89 60 - 195 [facility] Projected Heparin Concentration POC 3.7 units/[facility] Blood 12/09/2024 7:35 AM CDT 12/09/2024 7:35 AM CDT Indiana Mortensen MD LAB POCT ORDERABLES - DEVICE Final Result [facility] [place] [address] * (ABNORMAL) POC Blood Gas and Chemistries, Arterial - (12/09/2024 7:28 AM CDT) pH, Art POC 7.37 7.35 - 7.45 pCO2, Art POC 44 35 - 45 mmHg [facility] pO2, Art POC 483(H) 83 - 108 mmHg [facility] Na, POC 140 135 - 145 mmol/L [facility] K POC 4.1 3.3 - 4.9 mmol/L [facility] Comment: Interpretive Data Not all point of care methods assess for hemolysis. Confirm with instrument and retest K+ if not consistent with clinical signs and symptoms. Current Interpretive Data was last revised on 2023. Cl, POC 107 97 - 110 mmol/L [facility] Ionized Ca, POC 4.74 4.50 - 5.10 mg/dL [facility] Glucose, POC 103 70 - 199 mg/dL [facility] Lactate POC 1.3 0.7 - 2.0 mmol/L [facility] SO2 (chandra) arterial 100(H) 90 - 95 % [facility] Base excess, POC -0.2 mmol/L [facility] HCO3, Art POC 25 20 - 30 mmol/L [facility] Hct, POC 39.0 36.3 - 45.3 % [facility] Total Hb, POC 13.1 11.9 - 15.5 g/dL [facility] Blood 12/09/2024 7:28 AM CDT 12/09/2024 7:28 AM CDT us Indiana Mortensen MD LAB POCT ORDERABLES - DEVICE Final Result [facility]LEX [facility] [place] [address] * Type and screen (12/09/2024 6:56 AM CDT) Sarah, indirect Negative ABO Rh B Negative [facility] Blood 12/09/2024 6:56 AM CDT 12/09/2024 7:54 AM CDT Narrative ALEX [facility] - 12/09/2024 8:41 AM CDT Has the patient had Daratumumab or Isatuximab in the past 6 months?->Unknown us Deana Cruz MD LAB BLOOD BANK TEST ORDERABL ES Final Result [facility] [place] [address] * ROSS Add-On For OR (12/09/2024 6:04 AM CDT) Narrative [facility] [email or web address] SCIMAGE - 12/09/2024 6:04 AM CDT Procedure Auto Finalized by Rule: BW CV ROSS DURING CASE OR Please see the Anesthesiologist's Procedure Note for the results. us Pasquale Dela Cruz MD CV ECHO PROCEDURES Final Result Performing Organization Address City/[facility] Co de Phone Number [facility] PROSOLV_CARDIOREPORT_CONS SCIMAGE * Prepare RBC: 4 Units (12/09/2024 5:42 AM CDT) Product code [id number] Unit Number [id number] 5-7 CERNER BJ Product Blood Type BNEG CERNER [facility] Dispense Status RETURNED CERNER BJ Product code [id number] CERNER BJ Unit Number [id number] 9-0 CERNER BJ Product Blood Type BNEG CERNER BJH Dispense Status RETURNED CERNER BJ Product code [id number] CERNER BJ Unit Number [id number] 7-2 CERNER BJ Product Blood Type BNEG CERNER BJH Dispense Status RETURNED CERNER BJ Product code U3879O39 CERNER BJ Unit Number [id number] 2-W CERNER BJ Product Blood Type BNEG CERNER BJ Dispense Status RETURNED CERNER [facility] Blood 12/09/2024 5:42 AM CDT 12/09/2024 5:41 AM CDT Narrative ALEX MCKEON - 12/09/2024 3:35 PM CDT Specify Procedure:->AVR WITH ROOT ENLARGEMENT, CABG, VELA HARVEST Are special requirements needed? (All products are leukoreduced and CMV- safe)- >No Date required:-[id number] LRRBC # of [id number] Reasons:-Hold for procedure (specify procedure)} us Rekha Dee NP BLOOD BANK PRODUCT ORDE ROBERTO Final Result ALEX [facility] Department [place] [address] from Last 3 Months Insurance [employer] HEALTHCARE [employer] HEALTHCARE 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 * Full Code (Latest Code Status on File) Date Activated Date Inactivated Comments 12/09/2024 3:28 PM 01/02/2025 7:06 PM Care Teams Felt Puller Relationship Specialty Start Date End Date Pacheco Mejia DO [facility] [facility] [address] [place] [address] [place] [address] PCP - General Internal Medicine 01/22/23 Justin Herron DO [address] [facility] [address] [place] [address] Referring Physician Cardiology 10/14/24 Indiana Mortensen MD [address] [id number] [place] [address] Cardiothoracic Surgery 01/02/25 Unknown, Notinfile 01/02/25 Shelton Marcelo MD [address] [id number] [place] [address] Consulting Physician Physical Medicine and Rehabilitation 01/14/25
[2025-03-09 14:36] LABS: Hematocrit 38.0 % (37.0-47.0); Hemoglobin 12.4 g/dL (12.0-15.0); Immature Granulocyte Percent A 0.2 % (0-0.5); Lymphocytes Absolute Auto 1.60 K/mm3 (0.9-3.2); Mean Corpuscular HGB Conc 32.6 g/dl (32-36); Mean Corpuscular Hemoglobin 28.2 pg (26-34); Mean Corpuscular Volume 86.4 fl (80-100); Nucleated Red Blood Cells Absolute Auto 0.000 K/mm3 (0.0-0.012); Nucleated Red Blood Cells Perc 0.0 % (0.0-0.2); Platelet Count Result 247 k/mm3 (150-375); Red Blood Count 4.40 M/mm3 (4.2-5.4); White Blood Count 8.3 K/mm3 (4.5-10.0)
[2025-03-09 15:01] LABS: Hemoglobin A1C 4.6 % (<5.7)
[2025-03-09 15:19] LABS: Alanine Aminotransferase 23 U/L (6-35); Albumin Level 4.2 g/dL (3.5-5.1); Alkaline Phosphatase 63 U/L (38-126); Anion Gap 7 mmol/L (4-12); Aspartate Amino Transferase 49 U/L (14-36); Bilirubin,Total 0.4 mg/dL (0.2-1.3); Blood Urea Nitrogen 22 mg/dL (7-17); Calcium 9.3 mg/dL (8.4-10.2); Carbon Dioxide 24 mmol/L (22-30); Chloride 106 mmol/L (98-107); Cholesterol 152 mg/dL (0-200); Estimated Glomerular Filt Rate > 60; Glucose 94 mg/dL (65-110); HDL Direct 53 mg/dL; Magnesium 2.1 mg/dL (1.6-2.3); Potassium 4.3 mmol/L (3.4-5.0); Sodium 137 mmol/L (137-145); Total Protein 6.6 g/dL (6.3-8.2); Triglycerides 92 mg/dL (<150)
[2025-03-09 15:48] LABS: Iron 118 ug/dL (37-170)
[2025-03-09 15:55] LABS: Thyroid Stimulating Hormone 2.310 uIU/mL (0.465-4.680)
[2025-03-09 16:00] LABS: Percent Iron Saturation 31 % (20-50)
[2025-03-09 16:13] LABS: Free T3 3.83 pg/mL (2.45-5.93); Free T4 Free Thyroxine 0.99 ng/dL (0.78-2.19)
[2025-03-09 16:35] LABS: Vitamin B12 > 1000.0 pg/mL (239-931)
== END 2025-03-09 10:33 | disposition home or self-care (01) ==
LOC: ANHGOSHLAB 10:33
PROVIDERS: PCP Internal Medicine
DX: E66.9 Obesity, unspecified (principal); R73.01 Impaired fasting glucose; R53.82 Chronic fatigue, unspecified; E55.9 Vitamin D deficiency, unspecified; Z13.220 Encounter for screening for lipoid disorders; F41.1 Generalized anxiety disorder; G47.01 Insomnia due to medical condition; E34.9 Endocrine disorder, unspecified
CPT/HCPCS: 36415; 80053; 80061; 82024; 82306; 82533; 82607; 82627; 82746; 83036; 83525; 83540; 83550; 83735; 84439; 84443; 84481; 85025

== ENCOUNTER 2025-03-13 08:10 | Outpatient (CLI) | payer OTHER, MEDICAID, SELFPAY ==
--- OUTSIDE RECORDS SUMMARY | 2003-07-15 19:00 | XMS_ITS | Continuity of Care Document ---
Author Name [facility] Address [address] [place] [address] Organization [facility] Care Team Providers Care Die Repair Machinist Name Role Phone [facility] Unavailable Unavailable Problems Problem Status Onset Date [...] Patient LIONEL JOSHI Gender Female Name [facility] Number [id number] Date of Study 10/07/2018 Attending Physician Marcell Perez MD Visit [id number] Field Artillery Fire Control Man See Blair, [facility] Number Date of 1960 Interpreting Andrew Edward [...] Root: 2.88 cm LVOT Diameter: 1.77 cm CD:[email or web address] URL Echo Transthoracic Complete Transthoraci c Echocardiography Report (TTE) Demographics Patient Name LIONEL JOSHI Gender Female [facility] Number [id number] Date of Study 01/11/2017 Referring Physician Visit Number [id number] Field Artillery Fire Control Man Anthony Vallejo Date of 1960 Interpreting Braeden [...] ADM Date DC Date Status Source [facility] Between Visit [id number] 04/02 23:59 :59 Discharg ed [facility] Between Visit [id number] 05/16 23:59 :59 Discharg ed [facility] [id number] R HAND 5TH MC FX Ravinder Toedebusch [facility] [id number] RT HAND FX 1WK FU Ravinder To[place]us[place] [facility] [id number] CAST CHANGE-TO O TIGHT [facility] CC [facility] OUTPATIENT [id number] 4WK F/U Zihao Casillas Cancel [facility] Ancillar ies [facility] OUT[facility] [id number] 4WK F/U Zihao Casillas Cancel [facility] ies [facility] OUTPATIENT [id number] annual check up Lavern Kolker Cancel [facility] OUTPATIENT [id number] MSWL PER DR. DARIEL Finch Cancel [facility] OUTPATIENT [id number] fu Lavern Kolker [facility] OUTPATIENT [id number] 2 MO F/U Lavern Kolker C[facility] [id number] 2 MO F/U Lavern Kolker [facility] OUTPATIENT [id number] MSWL PER DR. DARIEL Torokisson Cancel [facility] OUTPATIENT [id number] F/U MSWL Tracy Josette Cancel [facility] NO TECHBILL [id number] [phone] MONTH F/U Lavern Kolker Cancel [facility] DIAGNOSTIC TEST [id number] LANE pre-op John Paul Viera Cancel [facility] [id number] MEDS MAKING PT DIZZY C[facility] [id number] cold symptoms Brionna Bohon C[facility] OUTPATIENT [id number] medicatio n titration C[facility] OUTPATIENT [id number] 6-8 WEEK F/U C[facility] OUTPATIENT [id number] CLASS: 1 MO 04/20/15 Rajan Rodriguez Cancel [facility] [id number] PRE DOS 01/13 FLIP CLAUDIA L KNEE Juan Carlos Danielson [facility]STOP[facility]STOP[facility] OUTPATIENT [id number] CONSULT LARGE MONS PUBIS-POS S INS See Jones Cancel [facility] OUTPATIENT [id number] CLASS: 3 MO 04/20/15 Rajan Rodriguez Cancel [facility] OUTPATIENT [id number] CLASS: 1 MO 04/20/15 Rajan Rodriguez Cancel [facility] DIAGNOSTIC TEST [id number] right proximal hamstring tendon tear Sid Don Cancel [facility] [id number] wouned infected Guy Kwok Cancel [facility] THERAPY SERIES [id number] John Paul Perdomojackieacacia Cancel [facility] OUTPATIENT [id number] SOV: 3 OF 3(MEDICAR E) John Paul Viera Cancel [facility] OUTPATIENT [id number] SOV: 3 OF 3(MEDICAR E) John Paul Stephensller Cancel [facility] OUTPATIENT [id number] CLASS: YEARLY RYGB 04/20/15 Gonzales Medina Cancel [facility] DIAGNOSTIC TEST [id number] right proximal hamstring tendon tear Mohherberd Arian Cancel [facility] DIAGNOSTIC TEST [id number] OSTEOARTH RITIS/ RIGHT KNEE PAIN Kyle Bal 05/08 15:38 :23 Cancel [facility] OUTPATIENT [id number] six wks 09/04 16:08 :33 Cancel [facility] OUTPATIENT [id number] UTI Alma Xiomara Cancel [facility] DIAGNOSTIC TESTING [id number] left leg anterior swelling Rowdy Bryant [facility] NO TECHBILL [id number] [facility]PA OUTPATIENT [id number] UTI Alma Xiomara Cancel [facility] DIAGNOSTIC TEST [id number] Olimpia Huizar Cancel [facility] DIAGNOSTIC TEST [id number] arm paresthes ia Boris Moore Cancel [facility] [place] [place] OUTPATIENT [id number] GENERAL EYE EXAM Enrike Rivera C[facility] OUTPATIENT [id number] er f/u Nyla Gov-Jake Cancel [facility] OUTPATIENT [id number] 2 WK F/U PER PT Cancel [facility] FPA NO TECHBILL [id number] consultat ion Nyla Gov-Jake Cancel [facility] OUTPATIENT [id number] Possible UTI and mole removal (2) [facility] [place] OUT[place] [id number] HYOERTROP HIC SCAR Nidhi Jennings Cancel [facility] [place] [id number] MOLE REMOVAL, ADHESION INJ Bre Wong Cancel [facility] OUT[facility] [id number] 6WK FOLLOW UP LT KNEE REV Jacob Flip [facility] OUTPATIENT [id number] CHECK SURGICAL WOUND Cancel [facility] OUTPATIENT [id number] CLASS: YEARLY RYGB 04/20/15 Cancel [facility] OUTPATIENT [id number] whole-danielle nt based diet, per Dr. Gurwinder Goncalves-Erika unek Cancel [facility] OUT[facility] [id number] 1 YEAR F/U Jacob Castelan [facility] OUT[facility]IENT [id number] 1 YEAR F/U Jacob Flip [facility]
--- OUTSIDE RECORDS SUMMARY | 2025-03-13 08:17 | XMS_ITS ---
Author Name Maximo Mckinney DO Address [address] [place] [address] Phone [phone] Organization [facility] Care Team Providers Care Steel Post Installer Name Role Phone Maximo Mckinney Unavailable [phone] Prim[facility] Home Tier 2 RN (STL), Sigrid Stewart U navailable Unavailable Latisha Andrade Courtney Unavailable Unavail able [facility] Tier 1 RN (STL), Sigrid Bermudez navailable Unavailable ELODIA FORTE Unavailable [phone] TIMOTHY CLIFFORD Unavailable [phone] Reason for Referral Not Available Allergies, adverse [...] tablet orally daily 11-16-13 No Data Available Seney-3 Fish Oil 1200 mg Cap 1 Capsule [...] Recommend diet and exercise if approved by Belting Inspector Dyspnea on exertion Active 2024-10-27 N/A Kolby [...] medical decision making, total time 30-44 minutes [address] 2024-10-27 No Data Available No Data Availa [...] day supply 2024-10-27 Recommend to speak w [facility] PCP about physical therapy Health Concerns Date [...]
--- OUTSIDE RECORDS SUMMARY | 2025-03-13 08:17 | XMS_ITS | Clinical Summary ---
Author Organization [facility] Elaine Cunha Address [address] [place] [address] Care Team Providers Care Nurse'S Assistant Name Role Phone GlynnPacheco michelle Ravinder BILLS [...] bedtime. Active fluticasone propionate (FLONASE) 50 mcg/spray [place], Suspension nasal inhaler USE 2 SPRAY(S) IN [...] Comments Blood Pressure 129/70 05/30/2023 10:21 AM WOOD SCIENCE PROFESSOR Pulse 93 05/30/2023 10:21 AM WOOD SCIENCE PROFESSOR Temperature 35.7 C (96.2 F) 05/30/2023 10:21 AM WOOD SCIENCE PROFESSOR Respiratory Rate 12 05/30/2023 10:21 AM WOOD SCIENCE PROFESSOR Oxygen Saturation 96% 05/30/2023 10:21 AM WOOD SCIENCE PROFESSOR Inhaled Oxygen Concentration - - Weight 134.3 kg (296 lb) 05/30/2023 10:21 AM WOOD SCIENCE PROFESSOR Height 160 cm (5' 3) 05/30/2023 10:21 AM WOOD SCIENCE PROFESSOR Body Mass Index 52.43 05/30/2023 10:21 AM WOOD SCIENCE PROFESSOR Plan of Treatment Health Maintenance Due Date [...] (1 - 1-dose 75+ series) 2037 Insurance [facility] MEDICA[employer] [place] Care Teams Nurse'S Assistant Relationship Specialty Start Date End Date Pacheco Mejia DO [address] [facility] [address] [place] [phone] PCP - General Internal Medicine 02/16/23
--- OUTSIDE RECORDS SUMMARY | 2025-03-13 08:17 | XMS_ITS | Patient Health Record ---
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 intervention to help client explore strategies to reduce her frustrations. PHQ=14 moderate Plan Of Treatment Pending Test Test Name Order Date UDT 04/21/2024 UDT 12/29/2024 Next Appt Details Provider Name:Berkley Barnhart , 03/24/2025 02:00:00 PM, [address], [address], [address], Provider Name:Berkley Barnhart , 04/07/2025 02:00:00 PM, [address], [facility], [place], [address], Provider Name:Berkley Barnhart , 04/21/2025 02:00:00 PM, [address], [facility], [place], [address], Insurance Providers Payer Name Payer Address Payer Phone Subscriber Number Group Number Insured Name Patient Relationship to Insured Coverage Start Date Coverage End Date [employer] Medicare Replacement/ [employer]vant[employer] - [employer]mo [address] [place] [phone] [id number] ADI VEGA Self - patient is the insured [place] [address] [address] [place] [phone] [id number] ADI VEGA Self - patient is the insured Medical (General) History Medical History History ICD Code Problems: Chronic post-traumatic stress disorder Generalized anxiety disorder Mild recurrent major depression Panic attack hypertension Surgical History Surgery Date(Month/Year) Hysterectomy (38975) Laparoscopic sleeve gastrectomy (2551555 ) 2014 Oophorectomy (16931) 3 knee replacements Appendectomy (81203) 08/29/2014 pneumonia 01/06/24 open heart surgery 12/09/2024 pacemaker 12/2024 Hospitalization History Reason Date(Month/Year) open heart surgery 12/09/24 to 01/13/25
--- OUTSIDE RECORDS SUMMARY | 2025-03-13 08:18 | XMS_ITS | Clinical Summary ---
Author Organization [facility] Address [address] [place] [id number] Phone Care Team Providers Care Server Programmer Name Role Phone Pacheco Mejia DO Primary Care Provider [phone] Justin Herron DO Unavailable [phone] Indiana Mortensen MD Unavailable Unknown, Notinfile Unavailable Unavailable Shelton aMrcelo MD Unavailable [phone] Allergies Active Allergy Reactions Criticality Noted Date [...] and placed a temp perm pacemaker - [employer] scientific RV lead externalized perm pacemaker in [...] and placed a temp perm pacemaker - [employer] scientific RV lead externalized perm pacemaker in [...] Description 02/09/2025 1:15 PM CDT Office Visit [facility] Cardiothoracic Surgery [address] [facility] Advanced Medicine 8th Floor [address] Room [address] [place] [address] Naz Gordillo NP S/P AVR (aortic valve replacement) (Primary Dx); S/P CABG (coronary artery bypass graft) 02/09/2025 12:17 PM CDT - 02/09/2025 11:59 PM CDT Hospital Encounter [facility] [address] [place] [address] Status post cardiac surgery Discharge Disposition: Discharge to home or self care 02/08/2025 Orders Only [facility] Cardiology [address] [facility] Advanced [facility] 8th [place] [address] [place] [address] Shola Cha MD 01/26/2025 Home Care Visit [address] [address] [address] [place] [address] Tiffany Santiago RN SN VIRTUAL OASIS DISCHARGE 01/26/2025 Home Care Visit [address] [place] [address] Jessica Carver RN SN TRIAGE ENCOUNTER 01/26/2025 Home Care Visit [address] [place] [address] Peter Hebert, PT TELEPHONE ENCOUNTER 01/22/2025 Home Care Visit [address] [place] [address] Tiffany Santiago, RN TELEPHONE ENCOUNTER 01/22/2025 Telephone [facility] Cardiothoracic Surgery [address] [facility] 8th Floor [address] Room [address] [place], [place] [address] Brigitte Sanchez, [facility] 01/21/2025 12:00 PM CDT Home Care Visit [address] [address] [place] [address] Tiffany Santiago RN SN HOME VISIT 01/20/2025 3:00 PM CDT Home Care Visit [address] [place] [address] Peter Hebert, PT PT INITIAL EVALUATION 01/20/2025 11:30 AM CDT Home Care Visit [address] [address] [place] [address] April Sr, OT OT INITIAL EVALUATION 01/18/2025 1:13 PM CDT - 01/18/2025 11:59 PM CDT Hospital Encounter [address] [address] Discharge Disposition: Discharge to home or self care 01/18/2025 1:00 PM CDT Home Care Visit [address] [address] [place] [address] Alana Kim RN SN OASIS START OF CARE 01/18/2025 Plan of Care Documentation [address] [place] [address] 01/17/2025 Home Care Visit [facility] Home [facility] - [place] [address] [facility] [address] [place] [address] Candelaria Silverio, JUANITA TELEPHONE ENCOUNTER 01/15/2025 Telephone [facility] Medicine Cardiology [address] [facility] 8th [place] [address] [place] [address] Shola Cha MD 01/14/2025 Telephone [facility] Home Care Services [address] [facility] [address] [place] [address] Alba Rodriguez, RN 01/14/2025 Telephone [facility] Home Care Services [address] [place] [address] Marian Crowell, JUANITA 01/14/2025 Travel 01/14/2025 Telephone [facility] Home Care Services [address] [facility] [address] [place] [address] Alba Rodriguez, RN 01/14/2025 Telephone [facility] Home Care Services [address] [facility] [address] [place] [address] Alba Rodriguez, RN 01/14/2025 Telephone [facility] Home Care Services [address] [facility] [address] [place] [address] Alba Rodriguez, RN 01/14/2025 Telephone [facility] Home Care Services [address] [facility] [address] [place] [address] Alba Rodriguez, RN 01/13/2025 Telephone [facility] Home Care Services [address] [place] [address] [address] [place] [address] Alba Rodriguez, RN 01/13/2025 Telephone [facility] Home Care Services [address] [place] [address] [address] [place] [address] Alba Rodriguez, RN 01/12/2025 Telephone [facility] Home Care Services [address] [place] [address] [address] [place] [address] Alba Rodriguez, RN 01/12/2025 Orders Only [facility] [phone] Unknown, Notinfile 01/12/2025 Telephone [facility] Home Care Services [address] [facility] [address] [place] [address] Alba Rodriguez, RN 01/12/2025 Telephone [facility] Home Care Services [address] [facility] [address] [place] [address] Alba Rodriguez, RN 01/08/2025 Orders Only [facility] [phone] Unknown, Notinfile 01/08/2025 Telephone [facility] Cardiology [address] [facility] 8th [place] [address] [place] [address] Brigitte Sanchez, COMIC BOOK WRITER 01/07/2025 1:10 PM CDT - 01/07/2025 11:59 PM CDT Hospital Encounter [facility] [address] [place] [address] S/P AVR (aortic valve replacement) Discharge Disposition: Discharge to home or self care 01/07/2025 8:30 AM CDT Ancillary Procedure [facility] Cardiology [address] [facility] [place] [address] [place] [address] Complete heart block (HCC) [I44.2] (Primary Dx); Fitting or adjustment of cardiac pacemaker 01/05/2025 Orders Only [facility] [phone] Unknown, Notinfile 01/02/2025 Orders Only [facility] Medicine Cardiothoracic Surgery [address] [facility] 8th Floor [address] Room [address] [place] [address] Naz Gordillo NP Status post cardiac surgery (Primary Dx) 12/31/2024 12:19 PM CDT Anesthesia Event [facility] Electrophysiology Lab [address] [place] [id number] David Canseco MD Dippolito, Jenny Irene, NP 12/31/2024 12:05 PM CDT - 12/31/2024 3:05 PM CDT Surgery [facility] Electrophysiology Lab 1 [place] [phone] Shola Cha MD IMPLANT DUAL CHAMBER PPM SYSTEM W/ DUAL ELECTRODES (GEN AND LEADS, NEW OR REPLACE) [id number] 12/29/2024 Telephone [facility] Medicine Cardiology [address] [facility] Medicine 8th [place] [address] [place] [address] Marleny Amaral 12/29/2024 Orders Only [facility] Cardiology [address] [facility] 8th [place] [address] [place] [address] Shala Oliva NP Fitting or adjustment of cardiac pacemaker (Primary Dx) 12/25/2024 2:52 PM CDT - 12/25/2024 11:59 PM CDT Hospital Encounter [facility] Radiology [address] [place] [address] Discharge Disposition: Discharge to home or self care 12/22/2024 8:40 AM CDT Ancillary Procedure [facility] Medicine Vascular Lab IP [address] [address] 12/19/2024 8:35 AM CDT Ancillary Procedure [facility] Medicine Vascular Lab IP [address] [address] 12/19/2024 8:30 AM CDT Ancillary Procedure [facility] Medicine Vascular Lab IP [address] [address] 12/09/2024 5:03 AM CDT - 01/02/2025 3:01 PM CDT Hospital Encounter [address] [address] Indiana Mortensen MD Complete heart block (HCC) [...] ELECTRODES (GEN AND LEADS, NEW OR REPLACE) [id number]; Surgeon: Shola Cha MD; Location: [facility]; Service: Cardiovascular; Laterality: [...] materials from doctor or pharmacy Never 01/26/2025 C Utilities Answer Date Recorded In the past [...] often do you attend chur ch or anabaptism services? Never 12/22/2024 Do you belong to [...] any time in the past 12 m [facility], were you homeless or living in a long term (including now)? No 12/22/2024 Personal Safety Answer Date Recorded Have you ever been in or are you currently in a harmful physical or emotional relationship or is someone making you feel afraid or unsafe? Denies 12/09/2024 Comments No Sex and Gender Information Value Date Recorded Sex Assigned at Not on file Legal Sex Female 3:02 PM NEWSROOM INTERN Gender Identity Female 01/25/2023 3:47 PM CDT [...] Vaccine (1 of 2) 2012 Covid-19 Vaccine (5 2023-2 5 season) 2024 07/10/2023, 05/13/2021, 10/14/2020, Additional history exists Influenza Vaccine (#1) 2025 DTaP/Tdap/Td Vaccine (2 - Td or Tdap) 01/23/2034 01/24/2024 Pneumococcal vaccine <65 Completed 01/24/2024, 04/16 Medical Devices Implanted Type Area Dough Panner Device Identifier Shelf Expiration Date Model / Serial / Lot [employer] Nikolai Lead [id number] Endocardial Pacing Mr Is-1 Bipolar Connection 7841-12/16/2024 Implanted:2024 (Quantity not on file) Lead Right: Ventricle 04/29/2026 / [id number] / Medtronic Inc Capsurefix Novus 6.2fr 2mm 52cm Bipolar Screw In Implantable Latex Free 5076-52 - [id number] - [id number] Implanted:Qty: 1 on 12/31/2024 by Shola Cha MD at [facility] Lead Right: Ventricle Medtronic Inc 10/09/2026 5076-52 / [id number] 12V / [id number] 12V Medtronic Inc Capsurefix Novus 6.2fr 2mm 45cm Bipolar Screw In Implantable 5076-45 - [id number] - [id number] Implanted:Qty: 1 on 12/31/2024 by Shola Cha MD at [facility] Lead Right: Atria Medtronic Inc 10/10/2026 5076-45 / [id number] 73V / [id number] 73V Medtronic Inc Tyrx Absorbable Antibacterial Envelope Med 2.7x2.5in [id number] - [id number] - [id number] Implanted:Qty: 1 on 12/31/2024 by Shola Cha MD at [facility] Other - see comments Right: Chest Wall Medtronic Inc 09/25/2025 [id number] / [id number] / [id number] Description:Tyrex Medtronic Inc Qian S Mri Surescan 50.8x46.6mm 2 Chamber 7.4mm Pacemaker 22.5gm [id number] - [id number] - [id number] Implanted:Qty: 1 on 12/31/2024 by Shola Cha MD at [facility] Pacemaker Right: Chest Wall Medtronic Inc 04/28/2026 [id number] / [id number] 65G / [id number] 65G [employer] Nikolai Patch Cardiovascular 14x8cm Samantha-Guard [employer] [id number] - [id number] - [id number] Implanted:Qty: 1 on 12/09/2024 by Indiana Mortensen MD at [facility] Chest [employer] Nikolai [id number] 05/27/2026 [id number] / [id number] / [id number] [employer] Inspiris Resilia Leaflet Sewing Ring 27mm Valve Aortic Bovine [id number] - [id number] - [id number] Implanted:Qty: 1 on 12/09/2024 by Indiana Mortensen MD at [facility] Heart [employer] [id number] 08/27/2029 [id number] 7 / [id number] / Arthrex Inc Device Closure Fibertape Sternal Cerclage Blunt Needle Ar-7289 - [id number] Implanted:Qty: 1 on 12/09/2024 by Indiana Mortensen MD at [facility] N/A: Sternum Arthrex Inc 05/15/2029 AR-7289 / / [id number] Esme [employer] Inc Plate Bone Low Profile 6 Hole O Shape Sternum Ti 115.104.06 - [id number] Implanted:Qty: 1 on 12/09/2024 by Gordy Bourgeois MD at [facility] N/A: Sternum [employer]me [employer] Inc 115.104 .06 / / Esme [employer] Inc Plate Bone Low Profile 6 Hole H Shape Sternum Ti 115.102.06 - [id number] Implanted:Qty: 2 on 12/09/2024 by Indiana Mortensen MD at [facility] N/A: Sternum [employer]me [employer] Inc 115.102 .06 / / Esme [employer] Inc Screw Bone Slf Drl Full Thread Locking 3.5x16mm Ti 100.035.16 - [id number] Implanted:Qty: 8 on 12/09/2024 by Indiana Mortensen MD at [facility] N/A: Sternum [employer]me [employer] Inc 100.035 .16 / / Esme [employer] Inc Screw Bone Slf Drl Full Thread Locking 3.5x18mm Ti 100.035.18 - [id number] Implanted:Qty: 4 on 12/09/2024 by Gordy Bourgeois MD at [facility] N/A: Sternum [employer]me [employer] Inc 100.035 .18 / / Esme [employer] Inc Screw Bone Slf Drl Full Thread Locking 3.5x20mm Ti 100.035.20 - [id number] Implanted:Qty: 6 on 12/09/2024 by Gordy Bourgeois MD at [facility] N/A: Sternum [employer]me [employer] Inc 100.035 .20 [...] 4:25 PM CDT Complete heart block (HCC) [place] AN 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 Routine 12/31/2024 12:52 PM [...] VIDEO IP Routine 12/25/2024 3:27 PM CDT CLAY SHOP SUPERVISOR EVALUATE AND TREAT VIDEOFLUOROSCOPIC SWALLOW STUDY Routine [...] BLOOD CULTURE Routine 12/21/2024 11:20 AM CDT CLAY SHOP SUPERVISOR EVALUATE AND TREAT FIBEROPTIC ENDOSCOPIC SWALLOW Routine [...] CHEMISTRIES, ARTERIAL Routine 12/14/2024 2:44 AM CDT IL INSJ NON-TUNNELED CENTRAL VENOUS CATH AGE 5 YR/> Routine 12/14/2024 1:52 AM CDT Bradycardia IL INSJ NON-TUNNELED CENTRAL VENOUS CATH AGE 5 YR/> Routine 12/14/2024 1:45 AM CDT Bradycardia IL ARTL CATHJ/CANNULJ MNTR/TRANSFUSION SPX PRQ Routine 12/14/2024 [...] CDT EEG Routine 12/13/2024 2:04 PM CDT CLAY SHOP SUPERVISOR EVALUATE AND TREAT Routine 1:42 PM CDT [...] WITHOUT DIFFERENTIAL Routine 12/11/2024 12:01 AM CDT from Last 3 Months Results [...] signed by: Osvaldo Ace M.D. Naz Gordillo FRYER LINE HELPER IMG XR PROCEDURES Final Result * DEVICE CHECK - REMOTE (02/08/2025 6:24 AM CDT) Anatomical Region Laterality Modality Other 02/08/2025 6:24 AM CDT Narrative 02/11/2025 11:02 AM CDT Interpretation Summary: Battery and Leads (BL) Normal parameters noted on battery and lead(s) --- 15.1 yrs remaining longevity. Lead impedance, sensing, and threshold trends stable and appropriate. No short V-V intervals. Presenting Rhythm (IL) Atrial Sensing-Ventricular Sensing (-VS) --- /VS (SR) [...] andappropriate. No short V-V intervals. Presenting Rhythm (IL) Atrial Sensing-Ventricular Sensing (-VS) --- /VS (SR) 70s/80s withAPCs. Arrhythmic events (AE) No new arrhythmic events in monitoring period --- Since 01/13/25: No AHRor VHR episodes. Transmission Information (TI) Device Summary Report Follow Up (FU) Patient's primary treating physician will be apprised of findings Shola Cha MD CV CARDIAC SERVI SIMRAN [...] DO LAB BLOOD ORDERABLES Final Result [facility] One [facility] Department [place] [address] * eGFR (01/18/2025 1:13 PM CDT) eGFR [...] Mejia DO LAB BLOOD ORDERABLES Final Result [facility] Department [place] [address] * (ABNORMAL) Differential, auto (01/18/2025 1:13 PM CDT) Neutrophil abs 6.51(H) 1.50 - 6.50 K/cumm Imm gran abs 0.04 0.00 - 0.10 K/cumm [facility] Lymphocyte abs 0.92 0.80 - 3.30 K/cumm [facility] Monocyte abs 0.48 0.20 - 0.80 K/cumm [facility] Eosinophil abs 0.33 0.00 - 0.50 K/cumm [facility] Basophil abs 0.08 0.00 - 0.10 K/cumm [facility] Neutrophil pct 77.9 % [facility] Comment: Interpretive Data Percent cell count reference ranges are not reported, since discordance with absolute values may lead to misinterpretation of CBC data. Current Interpretive Data was last revised on 2017. Imm gran pct 0.5 % [facility] Comment: Interpretive Data Percent cell count reference ranges are not reported, since discordance with absolute values may lead to misinterpretation of CBC data. Current Interpretive Data was last revised on 2017. Lymphocyte pct 11.0 % [facility] Comment: Interpretive Data Percent cell count reference ranges are not reported, since discordance with absolute values may lead to misinterpretation of CBC data. Current Interpretive Data was last revised on 2017. Monocyte pct 5.7 % [facility] Comment: Interpretive Data Percent cell count reference ranges are not reported, since discordance with absolute values may lead to misinterpretation of CBC data. Current Interpretive Data was last revised on 2017. Eosinophil pct 3.9 % [facility] Comment: Interpretive Data Percent cell count reference ranges are not reported, since discordance with absolute values may lead to misinterpretation of CBC data. Current Interpretive Data was last revised on 2017. Basophil pct 1.0 % [facility] Comment: Interpretive Data Percent cell count reference ranges are not reported, since discordance with absolute values may lead to misinterpretation of CBC data. Current Interpretive Data was last revised on 2017. Blood 01/18/2025 1:13 PM CDT 01/18/2025 2:54 PM CDT Pacheco Mejia DO LAB BLOOD ORDERABLES Final Result Performing Organization Address City/[facility] Co de Phone Number [facility] Department of Laboratories [place], [place] [id number] * Basic metabolic panel without glucose (01/18/2025 1:13 PM CDT) Pathologist [facility] Sodium 139 135 - 145 mmol/L Potassium, pl 4.6 3.3 - 4.9 mmol/L [facility] Chloride 105 97 - 110 mmol/L [facility] CO2 25 22 - 32 mmol/L [facility] Anion gap 9 2 - 15 mmol/L [facility] BUN 22 6 - 25 mg/dL [facility] Creatinine 0.89 0.60 - 1.10 mg/dL [facility] Calcium 9.3 8.5 - 10.3 mg/dL [facility] Blood 01/18/2025 1:13 PM CDT 01/18/2025 2:54 PM CDT Pacheco Mejia DO LAB BLOOD ORDERABLES Final Result Performing Organization Address City/[facility] Co de Phone Number [facility] Department [place] [address] * (ABNORMAL) CBC with auto differential (01/18/2025 1:13 PM CDT) WBC 8.36 3.80 - 9.90 K/cumm Hgb 11.2(L) 11.9 - 15.5 g/dL [facility] Hct 35.2(L) 35.6 - 45.5 % [facility] Plt 267 150 - 400 K/cumm [facility] MPV 9.0(L) 9.1 - 12.3 fL [facility] RBC 4.04 3.90 - 5.20 M/cumm [facility] MCV 87.1 81.3 - 96.4 fL [facility] MCH 27.7 27.1 - 33.3 pg [facility] MCHC 31.8(L) 32.3 - 35.7 g/dL [facility] RDW CV 15.8(H) 11.1 - 14.9 % [facility] RDW SD 50.8(H) 35.7 - 48.1 fL [facility] NRBC abs 0.00 0.00 - 0.01 K/cumm [facility] Blood 01/18/2025 1:13 PM CDT 01/18/2025 2:54 PM CDT us Pacheco Mejia DO LAB BLOOD ORDERABLES Final Result [facility] Department [place] [address] * (ABNORMAL) CS GLUCOSE (01/12/2025 10:04 AM CDT) [facility] Signature Glucose 57(L) 70 - 199 mg/dL [facility] Comment: Interpretive Data Fasting glucose >/= [...] was last revised 2022. Testing performed by: [facility], [address] [place]., [address] Blood 01/12/2025 10:0 4 AM CDT 01/12/2025 1:57 PM CDT us Notinfile Unknown LAB BLOOD ORDERABLES Final Res ult [facility] Department [place] [address] * (ABNORMAL) eGFR (01/12/2025 10:04 AM CDT) eGFR 53(L) >=60 mL/min/1. 73 m2 [facility] Comment: Interpretive Data Reference Interval [...] was last reviewed 2021. Testing performed by: [facility], [address] [facility], [place]., [address] Blood 01/12/2025 10:0 4 AM CDT 01/12/2025 2:11 PM CDT us Notinfile Unknown LAB BLOOD ORDERABLES Final Res ult [facility] One [facility] Department [place] [address] * (ABNORMAL) Differential, auto (01/12/2025 10:04 AM CDT) Neutrophil abs 9.30(H) 1.50 - 6.50 K/cumm [facility] Comment:Testing performed by : [facility], [address] [place]., [address] Imm gran abs 0.05 0.00 - 0.10 K/cumm [facility] Comment:Testing performed by : [facility], [address] [place] [address], [address] Lymphocyte abs 1.08 0.80 - 3.30 K/cumm [facility] Comment:Testing performed by : [facility], [address] [facility], [address] Monocyte abs 0.93(H) 0.20 - 0.80 K/cumm [facility] Comment:Testing performed by : [facility], [address] [place] [address], [address] Eosinophil abs 0.69(H) 0.00 - 0.50 K/cumm [facility] Comment:Testing performed by : [facility], [address] [place] [address]., [address] Basophil abs 0.12(H) 0.00 - 0.10 K/cumm [facility] Comment:Testing performed by : [facility], [address] [place] [address]., [address] Neutrophil pct 76.4 % [facility] Comment: Interpretive Data Percent cell count reference ranges are not reported, since discordance with absolute values may lead to misinterpretation of CBC data. Current Interpretive Data was last revised on 2017. Testing performed by: [facility], [address] [place] [address]., [address] Imm gran pct 0.4 % [facility] Comment: Interpretive Data Percent cell count reference ranges are not reported, since discordance with absolute values may lead to misinterpretation of CBC data. Current Interpretive Data was last revised on 2017. Testing performed by: [facility], [address] [place]., [address] Lymphocyte pct 8.9 % [facility] Comment: Interpretive Data Percent cell count reference ranges are not reported, since discordance with absolute values may lead to misinterpretation of CBC data. Current Interpretive Data was last revised on 2017. Testing performed by: [facility], [address] [place]., [address] Monocyte pct 7.6 % [facility] Comment: Interpretive Data Percent cell count reference ranges are not reported, since discordance with absolute values may lead to misinterpretation of CBC data. Current Interpretive Data was last revised on 2017. Testing performed by: [facility], [address] [place]., [address] Eosinophil pct 5.7 % [facility] Comment: Interpretive Data Percent cell count reference ranges are not reported, since discordance with absolute values may lead to misinterpretation of CBC data. Current Interpretive Data was last revised on 2017. Testing performed by: [facility], [address] [place]., [address] Basophil pct 1.0 % [facility] Comment: Interpretive Data Percent cell count reference ranges are not reported, since discordance with absolute values may lead to misinterpretation of CBC data. Current Interpretive Data was last revised on 2017. Testing performed by: [facility], [address] [place]., [address] Blood 01/12/2025 10:0 4 AM CDT 01/12/2025 1:57 PM CDT us Notinfile Unknown LAB BLOOD ORDERABLES Final Res ult [facility] Department [place] [address] * (ABNORMAL) Comprehensive metabolic panel, without glucose (Outreach) (01/12/2025 10:04 AM CDT) Sodium 142 135 - 145 mmol/L [facility] Comment:Testing performed by : [facility], [address] [facility], [address] Potassium, pl 4.3 3.3 - 4.9 mmol/L [facility] Comment:Testing performed by : [facility], [address] [facility], [address] Chloride 102 97 - 110 mmol/L [facility] Comment:Testing performed by : [facility], [address] [facility], [address] CO2 27 22 - 32 mmol/L [facility] Comment:Testing performed by : [facility], [address] [facility], [address] Anion gap 13 2 - 15 mmol/L [facility] Comment:Testing performed by : [facility], [address] [facility], [address] BUN 24 6 - 25 mg/dL [facility] Comment:Testing performed by : [facility], [address] [facility], [address] Creatinine 1.16(H) 0.60 - 1.10 mg/dL CERNER [facility]J Comment:Testing performed by : [facility], [address] [facility], [address] Calcium 10.1 8.5 - 10.3 mg/dL CERNER BJ Comment:Testing performed by : [facility], [address] [facility], [address] Protein, pl 7.3 6.5 - 8.5 g/dL CERNER BJ Comment:Testing performed by : [facility], [address] [facility], [address] Albumin 4.6 3.5 - 5.0 g/dL CERNER BJ Comment:Testing performed by : [facility], [address] [facility], [address] Bilirubin, total 0.5 0.1 - 1.2 mg/dL CERNER BJ Comment:Testing performed by : [facility], [address] [place]., [address] Alk phos 86 40 - 130 Units/L [facility] Comment:Testing performed by : [facility], [address] [facility], [address] AST 28 10 - 45 Units/L [facility] Comment:Testing performed by : [facility], [address] [facility], [address] ALT 25 7 - 45 Units/L [facility] Comment:Testing performed by : [facility], [address] [facility], [address] Blood 01/12/2025 10:0 4 AM CDT 01/12/2025 1:57 PM CDT us Notinfile Unknown LAB BLOOD ORDERABLES Final Res ult [facility] Department [place] [address] * (ABNORMAL) CBC with auto differential (01/12/2025 10:04 AM CDT) WBC 12.17(H) 3.80 - 9.90 K/cumm [facility] Comment:Testing performed by : [facility], [address] [facility], [address] Hgb 11.7(L) 11.9 - 15.5 g/dL [facility] Comment:Testing performed by : [facility], [address] [facility], [address] Hct 38.1 35.6 - 45.5 % [facility] Comment:Testing performed by : [facility], [address] [facility], [address] Plt 345 150 - 400 K/cumm [facility] Comment:Testing performed by : [facility], [address] [facility], [address] MPV 9.0(L) 9.1 - 12.3 fL [facility] Comment:Testing performed by : [facility], [address] [facility], [address] RBC 4.29 3.90 - 5.20 M/cumm CERNER BJ Comment:Testing performed by : [facility], [address] [facility], [address] MCV 88.8 81.3 - 96.4 fL CERNER BJ Comment:Testing performed by : [facility], [address] [facility], [address] MCH 27.3 27.1 - 33.3 pg [facility] Comment:Testing performed by : [facility], [address] [facility], [address] MCHC 30.7(L) 32.3 - 35.7 g/dL [facility] Comment:Testing performed by : [facility], [address] [facility], [address] RDW CV 15.9(H) 11.1 - 14.9 % [facility] Comment:Testing performed by : [facility], [address] [facility], [address] RDW SD 51.7(H) 35.7 - 48.1 fL [facility] Comment:Testing performed by : [facility], [address] [facility], [address] NRBC abs 0.00 0.00 - 0.01 K/cumm [facility] Comment:Testing performed by : [facility], [address] [facility], [address] Blood 01/12/2025 10:0 4 AM CDT 01/12/2025 1:57 PM CDT us Notinfile Unknown LAB BLOOD ORDERABLES Final Res ult [facility] [place] Department [place] [address] * (ABNORMAL) CS GLUCOSE (01/08/2025 12:20 PM CDT) Pathologist [facility] Glucose 68(L) 70 - 199 mg/dL [facility] Comment: Interpretive Data Fasting glucose [...] was last revised 2022. Testing performed by: [facility], [address] [place] [address], [place]., [address] Blood 01/08/2025 12:2 0 PM CDT 01/08/2025 1:36 PM CDT us Notinfile Unknown LAB BLOOD ORDERABLES Final Res ult [facility] Department [place] [address] * (ABNORMAL) eGFR (01/08/2025 12:20 PM CDT) [facility] eGFR 59(L) >=60 mL/min/1. 73 m2 [facility] Comment: Interpretive Data Reference Interval [...] was last reviewed 2021. Testing performed by: [facility], [address] [place]., [address] Blood 01/08/2025 12:2 0 PM CDT 01/08/2025 2:02 PM CDT us Notinfile Unknown LAB BLOOD ORDERABLES Final Res ult [facility] Department [place] [address] * (ABNORMAL) Differential, auto (01/08/2025 12:20 PM CDT) Neutrophil abs 6.42 1.50 - 6.50 K/cumm [facility] Comment:Testing performed by : [facility], [address] [place]., [address] Imm gran abs 0.03 0.00 - 0.10 K/cumm [facility] Comment:Testing performed by : [facility], [address] [place]., [address] Lymphocyte abs 1.12 0.80 - 3.30 K/cumm [facility] Comment:Testing performed by : [facility], 1 [place]., [address] Monocyte abs 0.59 0.20 - 0.80 K/cumm [facility] Comment:Testing performed by : [facility], [address] [place]., [address] Eosinophil abs 0.60(H) 0.00 - 0.50 K/cumm [facility] Comment:Testing performed by : [facility], [address] [place]., [address] Basophil abs 0.09 0.00 - 0.10 K/cumm [facility] Comment:Testing performed by : [facility], [address] [place]., [address] Neutrophil pct 72.5 % [facility] Comment: Interpretive Data Percent cell count reference ranges are not reported, since discordance with absolute values may lead to misinterpretation of CBC data. Current Interpretive Data was last revised on 2017. Testing performed by: [facility], [address] [place]., [address] Imm gran pct 0.3 % [facility] Comment: Interpretive Data Percent cell count reference ranges are not reported, since discordance with absolute values may lead to misinterpretation of CBC data. Current Interpretive Data was last revised on 2017. Testing performed by: [facility], [address] [place] [address]., [address] Lymphocyte pct 12.7 % [facility]ER [facility]J Comment: Interpretive Data Percent cell count reference ranges are not reported, since discordance with absolute values may lead to misinterpretation of CBC data. Current Interpretive Data was last revised on 2017. Testing performed by: [facility], [address] [place]., [address] Monocyte pct 6.7 % [facility] Comment: Interpretive Data Percent cell count reference ranges are not reported, since discordance with absolute values may lead to misinterpretation of CBC data. Current Interpretive Data was last revised on 2017. Testing performed by: [facility], [address] [place]., [address] Eosinophil pct 6.8 % [facility] Comment: Interpretive Data Percent cell count reference ranges are not reported, since discordance with absolute values may lead to misinterpretation of CBC data. Current Interpretive Data was last revised on 2017. Testing performed by: [facility], [address] [place]., [address] Basophil pct 1.0 % [facility] Comment: Interpretive Data Percent cell count reference ranges are not reported, since discordance with absolute values may lead to misinterpretation of CBC data. Current Interpretive Data was last revised on 2017. Testing performed by: [facility], [address] [place]., [address] Blood 01/08/2025 12:2 0 PM CDT 01/08/2025 1:36 PM CDT us Notinfile Unknown LAB BLOOD ORDERABLES Final Res ult [facility] Department [place] [address] * Comprehensive metabolic panel, without glucose (Outreach) (01/08/2025 12:20 PM CDT) Sodium 141 135 - 145 mmol/L [facility] Comment:Testing performed by : [facility], [address] [facility], [address] Potassium, pl 4.3 3.3 - 4.9 mmol/L [facility] Comment:Testing performed by : [facility], [address] [place]., [address] Chloride 102 97 - 110 mmol/L [facility] Comment:Testing performed by : [facility], [address] [place]., [address] CO2 26 22 - 32 mmol/L [facility] Comment:Testing performed by : [facility], [address] [facility], [address] Anion gap 13 2 - 15 mmol/L [facility] Comment:Testing performed by : [facility], [address] [facility], [address] BUN 22 6 - 25 mg/dL [facility] Comment:Testing performed by : [facility], [address] [facility], [address] Creatinine 1.06 0.60 - 1.10 mg/dL [facility] Comment:Testing performed by : [facility], [address] [place]., [address] Calcium 9.6 8.5 - 10.3 mg/dL [facility] Comment:Testing performed by : [facility], [address] [facility], [address] Protein, pl 6.5 6.5 - 8.5 g/dL [facility] Comment:Testing performed by : [facility], [address] [facility], [address] Albumin 4.0 3.5 - 5.0 g/dL [facility] Comment:Testing performed by : [facility], [address] [facility], [address] Bilirubin, total 0.4 0.1 - 1.2 mg/dL [facility] Comment:Testing performed by : [facility], [address] [facility], [address] Alk phos 82 40 - 130 Units/L [facility] Comment:Testing performed by : [facility], [address] [facility], [address] AST 25 10 - 45 Units/L [facility] Comment:Testing performed by : [facility], [address] [facility], [address] ALT 34 7 - 45 Units/L [facility] Comment:Testing performed by : [facility], [address] [place] [address], [address] Blood 01/08/2025 12:2 0 PM CDT 01/08/2025 1:36 PM CDT us Notinfile Unknown LAB BLOOD ORDERABLES Final Res ult [facility] Department [place] [address] * (ABNORMAL) CBC with auto differential (01/08/2025 12:20 PM CDT) WBC 8.85 3.80 - 9.90 K/cumm [facility]ER [facility] Comment:Testing performed by : [facility], [address] [facility], [address] Hgb 9.3(L) 11.9 - 15.5 g/dL [facility] Comment:Testing performed by : [facility], [address] [facility], [address] Hct 30.7(L) 35.6 - 45.5 % C[facility]ER [facility]J Comment:Testing performed by : [facility], [address] [facility], [address] Plt 255 150 - 400 K/cumm [facility] Comment:Testing performed by : [facility], [address] [facility], [address] MPV 8.9(L) 9.1 - 12.3 fL [facility]ER [facility] Comment:Testing performed by : [facility], [address] [facility], [address] RBC 3.44(L) 3.90 - 5.20 M/cumm [facility] Comment:Testing performed by : [facility], [address] [facility], [address] MCV 89.2 81.3 - 96.4 fL [facility]J Comment:Testing performed by : [facility], [address] [facility], [address] MCH 27.0(L) 27.1 - 33.3 pg [facility]ER [facility]J Comment:Testing performed by : [facility], [address] [facility], [address] MCHC 30.3(L) 32.3 - 35.7 g/dL [facility] Comment:Testing performed by : [facility], [address] [facility], [address] RDW CV 15.5(H) 11.1 - 14.9 % [facility] Comment:Testing performed by : [facility], 1 [place]., [address] RDW SD 49.9(H) 35.7 - 48.1 fL [facility] Comment:Testing performed by : [facility], [address] [place]., [address] NRBC abs 0.00 0.00 - 0.01 K/cumm [facility] Comment:Testing performed by : [facility], [address] [place]., [address] Blood 01/08/2025 12:2 0 PM CDT 01/08/2025 1:36 PM CDT us Notinfile Unknown LAB BLOOD ORDERABLES Final Res ult [facility] Department [place] [address] * CTA Chest Abdomen Pelvis (01/07/2025 3:43 [...] signed by: Keely Pressley M.D. Jessica AUGUSTIN IMMoriah CT PROCEDURES Fi nal Result * CTA [...] yrs. Magnet rate 85 bpm Presenting Rhythm (IL) Atrial Sensing-Ventricular Sensing (-VS) --- Underlying rhythm: NSR 70s Arrhythmic events (AE) No new arrhythmic events in monitoring period Anticoagulation (AC) Patient prescribed Apixaban (Eliquis) Patient on anticoagulant therapy Procedure Note Chan Reece MD - 01/08/2025 Interpretation Summary: Battery and Leads (BL) Normal parameters noted on battery and lead(s) --- battery longevityestimate: 14.3 yrs. Magnet rate 85 bpm Presenting Rhythm (IL) Atrial Sensing-Ventricular Sensing (-VS) --- Underlying rhythm: [id number] Arrhythmic events (AE) No new arrhythmic events in monitoring period Anticoagulation (AC) Patient prescribed Apixaban (Eliquis) Patient on anticoagulant therapy Shala Oliva NP CV CARDIAC SERVICES PROCEDUR ES Final Result * CS GLUCOSE (01/05/2025 10:33 AM CDT) Glucose 92 70 - 199 mg/dL [facility] Comment: Interpretive Data Fasting glucose >/= [...] was last revised 2022. Testing performed by: [facility], [address] [place]., [address] Blood 01/05/2025 10:3 3 AM CDT 01/05/2025 2:29 PM CDT us Notinfile Unknown LAB BLOOD ORDERABLES Final Res ult Performing Organization Address City/[facility] Co de Phone Number [facility] Department [place] [address] * (ABNORMAL) eGFR (01/05/2025 10:33 AM CDT) eGFR 59(L) >=60 mL/min/1. 73 m2 [facility] Comment: Interpretive Data Reference Interval [...] was last reviewed 2021. Testing performed by: [facility], [address] [place]., [address] Blood 01/05/2025 10:3 3 AM CDT 01/05/2025 2:46 PM CDT us Notinfile Unknown LAB BLOOD ORDERABLES Final Res ult Performing Organization Address City/[facility] Co de Phone Number [facility] Department [place] [address] * (ABNORMAL) Differential, auto (01/05/2025 10:33 AM CDT) Neutrophil abs 4.51 1.50 - 6.50 K/cumm [facility] Comment:Testing performed by : [facility], [address] [place] [address]., [address] Imm gran abs 0.03 0.00 - 0.10 K/cumm [facility] Comment:Testing performed by : [facility], [address] [place] [address]., [address] Lymphocyte abs 1.13 0.80 - 3.30 K/cumm [facility] Comment:Testing performed by : [facility], [address] [place] [address]., [address] Monocyte abs 0.60 0.20 - 0.80 K/cumm [facility] Comment:Testing performed by : [facility], [address] [place] [address]., [address] Eosinophil abs 0.53(H) 0.00 - 0.50 K/cumm [facility] Comment:Testing performed by : [facility], [address] [place] [address]., [address] Basophil abs 0.08 0.00 - 0.10 K/cumm [facility] Comment:Testing performed by : [facility], [address] [place] [address]., [address] Neutrophil pct 65.6 % [facility] Comment: Interpretive Data Percent cell count reference ranges are not reported, since discordance with absolute values may lead to misinterpretation of CBC data. Current Interpretive Data was last revised on 2017. Testing performed by: [facility], [address] [place] [address]., [address] Imm gran pct 0.4 % [facility] Comment: Interpretive Data Percent cell count reference ranges are not reported, since discordance with absolute values may lead to misinterpretation of CBC data. Current Interpretive Data was last revised on 2017. Testing performed by: [facility], [address] [place]., [address] Lymphocyte pct 16.4 % [facility] Comment: Interpretive Data Percent cell count reference ranges are not reported, since discordance with absolute values may lead to misinterpretation of CBC data. Current Interpretive Data was last revised on 2017. Testing performed by: [facility], [address] [place]., [address] Monocyte pct 8.7 % [facility]ERNER [facility] Comment: Interpretive Data Percent cell count reference ranges are not reported, since discordance with absolute values may lead to misinterpretation of CBC data. Current Interpretive Data was last revised on 2017. Testing performed by: [facility], [address] [place]., [address] Eosinophil pct 7.7 % [facility] Comment: Interpretive Data Percent cell count reference ranges are not reported, since discordance with absolute values may lead to misinterpretation of CBC data. Current Interpretive Data was last revised on 2017. Testing performed by: [facility], [address] [place]., [address] Basophil pct 1.2 % [facility] Comment: Interpretive Data Percent cell count reference ranges are not reported, since discordance with absolute values may lead to misinterpretation of CBC data. Current Interpretive Data was last revised on 2017. Testing performed by: [facility], [address] [place]., [address] Blood 01/05/2025 10:3 3 AM CDT 01/05/2025 2:29 PM CDT us Notinfile Unknown LAB BLOOD ORDERABLES Final Res ult [facility] Department [place] [address] * (ABNORMAL) Comprehensive metabolic panel, without glucose (Outreach) (01/05/2025 10:33 AM CDT) Sodium 142 135 - 145 mmol/L [facility]ER [facility] Comment:Testing performed by : [facility], [address] [facility], [address] Potassium, pl 4.2 3.3 - 4.9 mmol/L [facility]ER [facility] Comment:Testing performed by : [facility], [address] [facility], [address] Chloride 105 97 - 110 mmol/L [facility]ER [facility] Comment:Testing performed by : [facility], [address] [facility], [address] CO2 27 22 - 32 mmol/L [facility] Comment:Testing performed by : [facility], [address] [facility], [address] Anion gap 10 2 - 15 mmol/L [facility] Comment:Testing performed by : [facility], [address] [facility], [address] BUN 19 6 - 25 mg/dL [facility] Comment:Testing performed by : [facility], [address] [facility], [address] Creatinine 1.07 0.60 - 1.10 mg/dL [facility]ER [facility] Comment:Testing performed by : [facility], [address] [facility], [address] Calcium 9.4 8.5 - 10.3 mg/dL [facility]ER [facility] Comment:Testing performed by : [facility], [address] [facility], [address] Protein, pl 6.3(L) 6.5 - 8.5 g/dL [facility] Comment:Testing performed by : [facility], [address] [facility], [address] Albumin 4.0 3.5 - 5.0 g/dL [facility] Comment:Testing performed by : [facility], [address] [facility], [address] Bilirubin, total 0.5 0.1 - 1.2 mg/dL [facility] Comment:Testing performed by : [facility], [address] [place]., [address] Alk phos 95 40 - 130 Units/L [facility] Comment:Testing performed by : [facility], [address] [facility], [address] AST 29 10 - 45 Units/L [facility] Comment:Testing performed by : [facility], [address] [facility], [address] ALT 50(H) 7 - 45 Units/L [facility] Comment:Testing performed by : [facility], [address] [facility], [address] Blood 01/05/2025 10:3 3 AM CDT 01/05/2025 2:29 PM CDT us Notinfile Unknown LAB BLOOD ORDERABLES Final Res ult [facility] Department [place] [address] * (ABNORMAL) CBC with auto differential (01/05/2025 10:33 AM CDT) WBC 6.88 3.80 - 9.90 K/cumm [facility] Comment:Testing performed by : [facility], [address] [place]., [address] Hgb 8.8(L) 11.9 - 15.5 g/dL [facility] Comment:Testing performed by : [facility], [address] [place]., [address] Hct 28.6(L) 35.6 - 45.5 % [facility] Comment:Testing performed by : [facility], [address] [facility], [address] Plt 208 150 - 400 K/cumm [facility] Comment:Testing performed by : [facility], [address] [facility], [address] MPV 9.4 9.1 - 12.3 fL [facility] Comment:Testing performed by : [facility], [address] [facility], [address] RBC 3.22(L) 3.90 - 5.20 M/cumm [facility] Comment:Testing performed by : [facility], [address] [facility], [address] MCV 88.8 81.3 - 96.4 fL [facility] Comment:Testing performed by : [facility], [address] [facility], [address] MCH 27.3 27.1 - 33.3 pg [facility] Comment:Testing performed by : [facility], [address] [facility], [address] MCHC 30.8(L) 32.3 - 35.7 g/dL [facility] Comment:Testing performed by : [facility], [address] [facility], [address] RDW CV 14.7 11.1 - 14.9 % [facility] Comment:Testing performed by : [facility], [address] [facility], [address] RDW SD 47.3 35.7 - 48.1 fL [facility] Comment:Testing performed by : [facility], [address] [facility], [address] NRBC abs 0.00 0.00 - 0.01 K/cumm [facility] [facility] Comment:Testing performed by : [facility], [address] [facility], [address] Blood 01/05/2025 10:3 3 AM CDT 01/05/2025 2:29 PM CDT us Notinfile Unknown LAB BLOOD ORDERABLES Final Res ult [facility]LEX [facility] Department [place] [address] * Vitamin D 25 hydroxy (01/05/2025 10:33 AM CDT) Vitamin D 25-OH 41 30 - 80 ng/mL [facility] Comment:Testing performed by : [facility], [address] [facility], [place]., [address] Blood 01/05/2025 10:3 3 AM CDT 01/05/2025 2:29 PM CDT us Notinfile Unknown LAB BLOOD ORDERABLES Final Res ult [facility] Department [place] [address] * XR Chest Pa Lateral 2 Views [...] NP LAB BLOOD ORDERABLES Final Result [facility] Department of Laboratories [place], [place] [id number] * (ABNORMAL) CBC without differential (12/31/2024 10:26 PM CDT) [facility] WBC 9.64 3.80 - 9.90 K/cumm Hgb 8.4(L) 11.9 - 15.5 g/dL [facility] Hct 27.0(L) 35.6 - 45.5 % [facility] Plt 211 150 - 400 K/cumm [facility] MPV 9.1 9.1 - 12.3 fL [facility] RBC 2.97(L) 3.90 - 5.20 M/cumm [facility] MCV 90.9 81.3 - 96.4 fL [facility] MCH 28.3 27.1 - 33.3 pg [facility] MCHC 31.1(L) 32.3 - 35.7 g/dL [facility] RDW CV 15.0(H) 11.1 - 14.9 % [facility] RDW SD 49.3(H) 35.7 - 48.1 fL [facility] NRBC abs 0.00 0.00 - 0.01 K/cumm [facility] Blood 12/31/2024 10:2 6 PM CDT 12/31/2024 10:44 PM CDT Xena Bai FRYER [employer] HELPER LAB BLOOD ORDERABLES Final Result [facility] Department [place] [address] * (ABNORMAL) Comprehensive metabolic panel (12/31/2024 10:26 PM CDT) [facility] Sodium 141 135 - 145 mmol/L Potassium, pl 4.4 3.3 - 4.9 mmol/L [facility] Chloride 109 97 - 110 mmol/L [facility] CO2 25 22 - 32 mmol/L [facility] Anion gap 7 2 - 15 mmol/L [facility] BUN 15 6 - 25 mg/dL [facility] Creatinine 1.00 0.60 - 1.10 mg/dL [facility] Glucose 109 70 - 199 mg/dL [facility] Comment: Interpretive Data Fasting glucose >/= [...] Calcium 8.6 8.5 - 10.3 mg/dL [facility] Bilirubin, total 0.5 0.1 - 1.2 mg/dL [facility] Protein, pl 6.2(L) 6.5 - 8.5 g/dL [facility] Albumin 3.7 3.5 - 5.0 g/dL [facility] Alk phos 94 40 - 130 Units/L [facility] ALT 70(H) 7 - 45 Units/L [facility] AST 31 10 - 45 Units/L [facility] Blood 12/31/2024 10:2 6 PM CDT 12/31/2024 10:43 PM CDT us Xena Bai NP LAB BLOOD ORDERABLES Final Result Performing Organization Address City/State/[facility] Co de Phone Number [facility] Department [place] [address] * X-ray chest 1 view (12/31/2024 4:59 [...] recorded. Images were taken in MATSON and RICARDO views to ensure appropriate lead placement. The [...] and device programming: - RA Lead (#[id number]): Sensing 1.2 mV, Pacing threshold 0.75 V at 0.4 ms, Imp 1026 Ohm - RV Lead (#[id number]): Sensing 7.0 mV, Pacing threshold 0.5 V at 0.4 ms, Imp 703 Ohm - Device: Compliance 11ure S [id number] MRI Surescan pacemaker (#[id number]), programmed AAI/DDD 60-130 Conclusions: 1. Successful placement [...] days post-discharge Shola Cha MD Clinical Cardiac Social Studies Department Chair Ronel Arellano NP CV ELECTROPHYSIOLOGY P ROCS Final Result * [place] AN 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 (12/31/2024 12:52 PM CDT) Narrative Lloyd Dowd CRNA - 12/31/2024 12:52 PM CDT Lloyd Dowd CRNA 12/31/2024 12:52 PM Peripheral IV Catheter Patient location: OR Staff: Placed by: YARDAGE CONTROL OPERATOR FORMING: Kalie Madrigal CRNA Preprocedure prep: Prep solution: [...] Bai NP LAB BLOOD ORDERABLES Final Result [facility] Department [place] [address] * (ABNORMAL) aPTT (12/30/2024 10:52 PM CDT) aPTT 70(H) 28 - 38 sec Comment: Interpretive Data Heparin therapeutic range: 66.0 - 100.0 seconds. Range based on correlation with therapeutic heparin activity range of 0.3 - 0.7 Units/mL. Current interpretive data was last revised on 2023. Blood 12/30/2024 10:5 2 PM CDT 12/31/2024 12:14 AM CDT Narrative [facility] - 12/31/2024 12:24 AM CDT STAT PTT [...] Shrestha NP LAB BLOOD ORDERABLES Final Result [facility] Department [place] [address] * (ABNORMAL) CBC without differential (12/30/2024 10:52 PM CDT) [facility] WBC 11.75(H) 3.80 - 9.90 K/cumm Hgb 8.8(L) 11.9 - 15.5 g/dL [facility] Hct 28.4(L) 35.6 - 45.5 % [facility] Plt 243 150 - 400 K/cumm [facility] MPV 9.3 9.1 - 12.3 fL [facility] RBC 3.08(L) 3.90 - 5.20 M/cumm [facility] MCV 92.2 81.3 - 96.4 fL [facility] MCH 28.6 27.1 - 33.3 pg [facility] MCHC 31.0(L) 32.3 - 35.7 g/dL [facility] RDW CV 15.0(H) 11.1 - 14.9 % [facility] RDW SD 49.7(H) 35.7 - 48.1 fL [facility] NRBC abs 0.00 0.00 - 0.01 K/cumm [facility] Blood 12/30/2024 10:5 2 PM CDT 12/31/2024 12:08 AM CDT Xena Bai FRYER LINE HELPER LAB BLOOD ORDERABLES Final Result Performing Organization Address [facility] [place] [address] * Type and screen (12/30/2024 10:52 PM CDT) Pathologist [facility] ABO Rh B Negative Sarah, indirect Negative [facility] Blood 12/30/2024 10:5 2 PM CDT 12/31/2024 12:10 AM CDT Narrative [facility] - 12/31/2024 1:00 AM CDT Has the patient had Daratumumab or Isatuximab in the past 6 months?->Unknown Xena Bai FRYER LINE HELPER LAB BLOOD BANK TEST ORDERA BLES Final Result Performing Organization Address [facility] de Phone Number [facility] [place] [address] * (ABNORMAL) Comprehensive metabolic panel (12/30/2024 10:52 PM CDT) [facility] Sodium 137 135 - 145 mmol/L Potassium, pl 4.4 3.3 - 4.9 mmol/L [facility] Chloride 103 97 - 110 mmol/L [facility] CO2 24 22 - 32 mmol/L [facility] Anion gap 10 2 - 15 mmol/L [facility] BUN 21 6 - 25 mg/dL [facility] Creatinine 1.06 0.60 - 1.10 mg/dL [facility] Glucose 118 70 - 199 mg/dL [facility] Comment: Interpretive Data Fasting glucose >/= [...] 2022. Calcium 8.8 8.5 - 10.3 mg/dL [facility] Bilirubin, total 0.5 0.1 - 1.2 mg/dL [facility] Protein, pl 6.8 6.5 - 8.5 g/dL [facility] Albumin 4.0 3.5 - 5.0 g/dL [facility] Alk phos 114 40 - 130 Units/L [facility] ALT 80(H) 7 - 45 Units/L [facility] AST 37 10 - 45 Units/L [facility] Blood 12/30/2024 10:5 2 PM CDT 12/31/2024 12:07 AM CDT us Xena Bai FRYER LINE HELPER LAB BLOOD ORDERABLES Final Result [facility] Department [place] [address] * (ABNORMAL) aPTT (12/30/2024 5:13 PM CDT) aPTT 67(H) 28 - 38 sec Comment: Interpretive Data Heparin therapeutic range: 66.0 - 100.0 seconds. Range based on correlation with therapeutic heparin activity range of 0.3 - 0.7 Units/mL. Current interpretive data was last revised on 2023. Blood 12/30/2024 5:13 PM CDT 12/30/2024 5:31 PM CDT [facility] 12/30/2024 5:41 PM CDT STAT PTT [...] drawn peripherally (not from CVC). See Shrestha FRYER LINE HELPER LAB BLOOD ORDERABLES Final Result Performing Organization Address [facility] Co de Phone Number ALEX [facility] [place] [address] * eGFR (12/30/2024 10:54 AM CDT) eGFR [...] 12/30/2024 11:18 AM CDT us Xena Bai FRYER LINE HELPER LAB BLOOD ORDERABLES Final Result Performing Organization Address [facility]/ZIP Co de Phone Number [facility]LEX [facility] Department [place] [address] * (ABNORMAL) aPTT (12/30/2024 10:54 AM CDT) aPTT 27(L) 28 - 38 sec Comment: Interpretive Data Heparin therapeutic range: 66.0 - 100.0 seconds. Range based on correlation with therapeutic heparin activity range of 0.3 - 0.7 Units/mL. Current interpretive data was last revised on 2023. Blood 12/30/2024 10:5 4 AM CDT 12/30/2024 11:17 AM CDT Narrative [facility] - 12/30/2024 11:48 AM CDT Baseline prior to heparin initiation See Shrestha NP LAB BLOOD ORDERABLES Final Result Performing Organization Address City/[facility] Co de Phone Number [facility] [place] [address] * (ABNORMAL) Protime-INR (12/30/2024 10:54 AM CDT) PT 14.1(H) 9.7 - 13.0 sec INR 1.30(H) 0.90 - 1.20 [facility] Comment: Interpretive data Oral anticoagulant therapeutic ranges: Venous thromboembolism prophylaxis or treatment: 2.0-3.0 CARDIOLOGY Standard range: 2.0-3.0 High-intensity range: 2.5-3.5 Refer to indication-specific guidelines for appropriate target ranges for prosthetic heart valve replacement. Current interpretive data was last revised on 2019. Blood 12/30/2024 10:5 4 AM CDT 12/30/2024 11:17 AM CDT Narrative [facility] - 12/30/2024 11:48 AM CDT Baseline prior to heparin initiation See Shrestha NP LAB BLOOD ORDERABLES Final Result Performing Organization Address City/[facility] Co de Phone Number [facility] [place] [address] * (ABNORMAL) CBC without differential (12/30/2024 10:54 AM CDT) WBC 9.63 3.80 - 9.90 K/cumm Hgb 8.4(L) 11.9 - 15.5 g/dL [facility] Hct 27.2(L) 35.6 - 45.5 % [facility] Plt 284 150 - 400 K/cumm [facility] MPV 9.1 9.1 - 12.3 fL [facility] RBC 2.96(L) 3.90 - 5.20 M/cumm [facility] MCV 91.9 81.3 - 96.4 fL [facility] MCH 28.4 27.1 - 33.3 pg [facility] MCHC 30.9(L) 32.3 - 35.7 g/dL [facility] RDW CV 15.3(H) 11.1 - 14.9 % [facility] RDW SD 51.1(H) 35.7 - 48.1 fL [facility] NRBC abs 0.00 0.00 - 0.01 K/cumm [facility] Blood 12/30/2024 10:5 4 AM CDT 12/30/2024 11:18 AM CDT Narrative [facility] - 12/30/2024 11:28 AM CDT Baseline prior to heparin initiation us See Shrestha FRYER LINE HELPER LAB BLOOD ORDERABLES Final Result [facility] Department [place] [address] * (ABNORMAL) Comprehensive metabolic panel (12/30/2024 10:54 AM CDT) [facility] Signature Sodium 139 135 - 145 mmol/L Potassium, pl 4.5 3.3 - 4.9 mmol/L [facility] Chloride 104 97 - 110 mmol/L [facility] CO2 26 22 - 32 mmol/L [facility] Anion gap 9 2 - 15 mmol/L [facility] BUN 19 6 - 25 mg/dL [facility] Creatinine 0.96 0.60 - 1.10 mg/dL [facility] Glucose 98 70 - 199 mg/dL [facility] Comment: Interpretive Data Fasting glucose >/= [...] Calcium 9.0 8.5 - 10.3 mg/dL [facility] Bilirubin, total 0.6 0.1 - 1.2 mg/dL [facility] Protein, pl 6.4(L) 6.5 - 8.5 g/dL [facility] Albumin 3.9 3.5 - 5.0 g/dL [facility] Alk phos 112 40 - 130 Units/L [facility] ALT 92(H) 7 - 45 Units/L [facility] AST 36 10 - 45 Units/L [facility] Blood 12/30/2024 10:5 4 AM CDT 12/30/2024 11:18 AM CDT us Xena Bai NP LAB BLOOD ORDERABLES Final Result [facility] Department [place] [address] * IR Central Line Placement > 5 [...] and agrees with it. Electronically signed by: Setvie So M.D. Narrative 12/30/2024 8:50 PM CDT [...] was obtained. Prior to beginning the procedure, [place] Protocol was used to confirm the patient's [...] was obtained. Prior to beginning the procedure, [place] Protocol was used to confirm the patient's [...] * (ABNORMAL) eGFR (12/28/2024 8:30 PM CDT) Pathologist [facility] eGFR 57(L) >=60 mL/min/1. 73 m2 Comment: [...] 8:30 PM CDT 12/28/2024 10:10 PM CDT eXna Bai FRYER LINE HELPER LAB BLOOD ORDERABLES Final Result [facility] Department [place] [address] * (ABNORMAL) CBC without differential (12/28/2024 8:30 PM CDT) WBC 11.82(H) 3.80 - 9.90 K/cumm Hgb 9.0(L) 11.9 - 15.5 g/dL [facility] Hct 28.7(L) 35.6 - 45.5 % [facility] Plt 299 150 - 400 K/cumm [facility] MPV 9.4 9.1 - 12.3 fL [facility] RBC 3.07(L) 3.90 - 5.20 M/cumm [facility] MCV 93.5 81.3 - 96.4 fL [facility] MCH 29.3 27.1 - 33.3 pg [facility] MCHC 31.4(L) 32.3 - 35.7 g/dL [facility] RDW CV 15.5(H) 11.1 - 14.9 % [facility] RDW SD 52.2(H) 35.7 - 48.1 fL [facility] NRBC abs 0.00 0.00 - 0.01 K/cumm [facility] Blood 12/28/2024 8:30 PM CDT 12/28/2024 10:10 PM CDT Xena Bai FRYER LINE HELPER LAB BLOOD ORDERABLES Final Result [facility] Department [place] [address] * (ABNORMAL) Comprehensive metabolic panel (12/28/2024 8:30 PM CDT) Sodium 140 135 - 145 mmol/L Potassium, pl 4.5 3.3 - 4.9 mmol/L [facility] Chloride 105 97 - 110 mmol/L [facility] CO2 25 22 - 32 mmol/L [facility] Anion gap 10 2 - 15 mmol/L [facility] BUN 24 6 - 25 mg/dL [facility] Creatinine 1.09 0.60 - 1.10 mg/dL [facility] Glucose 99 70 - 199 mg/dL [facility] Comment: Interpretive Data Fasting glucose >/= [...] Calcium 9.1 8.5 - 10.3 mg/dL [facility] Bilirubin, total 0.5 0.1 - 1.2 mg/dL [facility] Protein, pl 6.5 6.5 - 8.5 g/dL [facility] Albumin 3.9 3.5 - 5.0 g/dL [facility] Alk phos 130 40 - 130 Units/L [facility] ALT 130(H) 7 - 45 Units/L [facility] AST 56(H) 10 - 45 Units/L [facility] Blood 12/28/2024 8:30 PM CDT 12/28/2024 10:10 PM CDT Xena Bai FRYER LINE HELPER LAB BLOOD ORDERABLES Final Result Performing Organization Address [facility] Co de Phone Number [facility] Department [place] [address] * (ABNORMAL) eGFR (12/27/2024 8:34 PM CDT) Pathologist [facility] eGFR 55(L) >=60 mL/min/1. 73 m2 Comment: [...] CDT 12/27/2024 9:37 PM CDT Xena Bai FRYER LINE HELPER LAB BLOOD ORDERABLES Final Result Performing Organization Address [facility] Co de Phone Number [facility] [place] [address] * (ABNORMAL) CBC without differential (12/27/2024 8:34 PM CDT) Pathologist [facility] WBC 11.68(H) 3.80 - 9.90 K/cumm Hgb 9.0(L) 11.9 - 15.5 g/dL [facility] Hct 29.4(L) 35.6 - 45.5 % [facility] Plt 287 150 - 400 K/cumm [facility] MPV 9.5 9.1 - 12.3 fL [facility] RBC 3.11(L) 3.90 - 5.20 M/cumm [facility] MCV 94.5 81.3 - 96.4 fL [facility] MCH 28.9 27.1 - 33.3 pg [facility] MCHC 30.6(L) 32.3 - 35.7 g/dL [facility] RDW CV 15.9(H) 11.1 - 14.9 % [facility] RDW SD 54.4(H) 35.7 - 48.1 fL [facility] NRBC abs 0.00 0.00 - 0.01 K/cumm [facility] Blood 12/27/2024 8:34 PM CDT 12/27/2024 9:38 PM CDT Xena Bai FRYER LINE HELPER LAB BLOOD ORDERABLES Final Result Performing Organization Address [facility] Co de Phone Number [facility] Department [place] [address] * Type and screen (12/27/2024 8:34 PM CDT) Pathologist [facility] Sarah, indirect Negative ABO Rh B Negative [facility] Blood 12/27/2024 8:34 PM CDT 12/27/2024 9:42 PM CDT Narrative [facility] - 12/27/2024 10:58 PM CDT Has the patient had Daratumumab or Isatuximab in the past 6 months?->Unknown Xena Bai FRYER LINE HELPER LAB BLOOD BANK TEST ORDERA BLES Final Result [facility] [place] [address] * (ABNORMAL) Comprehensive metabolic panel (12/27/2024 8:34 PM CDT) Pathologist [facility] Sodium 139 135 - 145 mmol/L Potassium, pl 4.1 3.3 - 4.9 mmol/L [facility] Chloride 103 97 - 110 mmol/L [facility] CO2 24 22 - 32 mmol/L [facility] Anion gap 12 2 - 15 mmol/L [facility] BUN 24 6 - 25 mg/dL [facility] Creatinine 1.13(H) 0.60 - 1.10 mg/dL [facility] Glucose 115 70 - 199 mg/dL [facility] Comment: Interpretive Data Fasting glucose >/= [...] 2022. Calcium 8.7 8.5 - 10.3 mg/dL [facility] Bilirubin, total 0.6 0.1 - 1.2 mg/dL [facility] Protein, pl 6.5 6.5 - 8.5 g/dL [facility] Albumin 3.9 3.5 - 5.0 g/dL [facility] Alk phos 95 40 - 130 Units/L [facility] ALT 136(H) 7 - 45 Units/L [facility] AST 42 10 - 45 Units/L [facility] Blood 12/27/2024 8:34 PM CDT 12/27/2024 9:37 PM CDT us Xena Bai NP LAB BLOOD ORDERABLES Final Result [facility] Department of Laboratories [place], [place] [id number] * eGFR (12/26/2024 1:25 PM CDT) eGFR [...] Bai NP LAB BLOOD ORDERABLES Final Result [facility] Department [place] [address] * Blood culture Blood (12/26/2024 1:25 PM CDT) Report Final Report: No growth Blood 12/26/2024 1:25 PM CDT 12/26/2024 3:03 PM CDT Narrative [facility] - 12/30/2024 4:00 PM CDT Collection->Peripheral 1. [...] performance characteristics have been verified by the [facility] Microbiology Laboratory. For questions about this culture, contact the Microbiology Laboratory at [phone]. Interpretive data was last revised on 24. See Shrestha FRYER LINE HELPER LAB MICROBIOLOGY - GENERAL ORDERABLES Final Result Performing Organization Address City/[facility] Co de Phone Number [facility] Department [place] [address] * (ABNORMAL) CBC without differential (12/26/2024 1:25 PM CDT) WBC 12.65(H) 3.80 - 9.90 K/cumm Hgb 9.0(L) 11.9 - 15.5 g/dL [facility] Hct 28.9(L) 35.6 - 45.5 % [facility] Plt 306 150 - 400 K/cumm [facility] MPV 9.6 9.1 - 12.3 fL [facility] RBC 3.11(L) 3.90 - 5.20 M/cumm [facility] MCV 92.9 81.3 - 96.4 fL [facility] MCH 28.9 27.1 - 33.3 pg [facility] MCHC 31.1(L) 32.3 - 35.7 g/dL [facility] RDW CV 15.9(H) 11.1 - 14.9 % [facility] RDW SD 51.8(H) 35.7 - 48.1 fL [facility] NRBC abs 0.00 0.00 - 0.01 K/cumm [facility] Blood 12/26/2024 1:25 PM CDT 12/26/2024 2:28 PM CDT Xena Bai FRYER LINE HELPER LAB BLOOD ORDERABLES Final Result Performing Organization Address City/[facility] Co de Phone Number [facility] Department [place] [address] * (ABNORMAL) CBC without differential (12/26/2024 1:25 PM CDT) Pathologist [facility] WBC 12.21(H) 3.80 - 9.90 K/cumm Hgb 9.0(L) 11.9 - 15.5 g/dL [facility] Hct 28.5(L) 35.6 - 45.5 % [facility] Plt 307 150 - 400 K/cumm [facility] MPV 9.5 9.1 - 12.3 fL [facility] RBC 3.07(L) 3.90 - 5.20 M/cumm [facility] MCV 92.8 81.3 - 96.4 fL [facility] MCH 29.3 27.1 - 33.3 pg [facility] MCHC 31.6(L) 32.3 - 35.7 g/dL [facility] RDW CV 15.9(H) 11.1 - 14.9 % [facility] RDW SD 52.4(H) 35.7 - 48.1 fL [facility] NRBC abs 0.00 0.00 - 0.01 K/cumm [facility] Blood 12/26/2024 1:25 PM CDT 12/26/2024 2:28 PM CDT us Kika Simpson DNP LAB BLOOD ORDERABLES Fi nal Result Performing Organization Address [facility] Co de Phone Number [facility] Department [place] [address] * Type and screen (12/26/2024 1:25 PM CDT) Pathologist [facility] Sarah, indirect Negative ABO Rh B Negative [facility] Blood 12/26/2024 1:25 PM CDT 12/26/2024 2:26 PM CDT Narrative [facility] - 12/26/2024 3:25 PM CDT Has the patient had Daratumumab or Isatuximab in the past 6 months?->Unknown us Xena Bai NP LAB BLOOD BANK TEST ORDERA BLES Final Result [facility] Department [place] [address] * (ABNORMAL) Comprehensive metabolic panel (12/26/2024 1:25 PM CDT) Pathologist [facility] Sodium 139 135 - 145 mmol/L Potassium, pl 3.7 3.3 - 4.9 mmol/L [facility] Chloride 102 97 - 110 mmol/L [facility] CO2 25 22 - 32 mmol/L [facility] Anion gap 12 2 - 15 mmol/L [facility] BUN 23 6 - 25 mg/dL [facility] Creatinine 1.01 0.60 - 1.10 mg/dL [facility] Glucose 115 70 - 199 mg/dL [facility] Comment: Interpretive Data Fasting glucose >/= [...] 2022. Calcium 9.1 8.5 - 10.3 mg/dL [facility] [facility] Bilirubin, total 0.7 0.1 - 1.2 mg/dL [facility] Protein, pl 6.5 6.5 - 8.5 g/dL [facility] Albumin 3.7 3.5 - 5.0 g/dL [facility] Alk phos 93 40 - 130 Units/L [facility] ALT 169(H) 7 - 45 Units/L [facility] AST 50(H) 10 - 45 Units/L [facility] Blood 12/26/2024 1:25 PM CDT 12/26/2024 2:28 PM CDT us Xena Bai [employer]YER LINE HELPER LAB BLOOD ORDERABLES Final Result ALEX MCKEON [facility] Department [place] [address] * XR Chest 1 View (12/26/2024 5:21 [...] signed by: Sharlene Claros M.D. us Kika Simpson DNP IMG XR [...] signed by: Bernabe Lowry M.D. See Shrestha FRYER LINE HELPER IMG XR PROCEDURES Final Re sult * [...] Electronically signed by: Boris Casas M.D., Ph.D us Kika Simpson DNP IMG FLUOROSCOPY PROCEDU RES Final Result * [employer] Evaluate and Treat (VFSS) (12/25/2024 3:07 PM CDT) Narrative Misty Fields, [employer] SUPERVISOR - 12/25/2024 3:07 PM CDT Misty Fields SLP 12/25/2024 5:26 PM Speech-Language Pathology: Videofluoroscopic Study of Swallow (VFSS/MBS) HPI/PMH *Update 12/19: intubated 12/15-12/17. Passed [place] swallow screen 12/19 but later coughing w/liquid Regular diet, thin liquids per [employer] SUPER[employer]OR eval 12/13. Episodes of seizures since then. [...] pt report General Information Adi Flowers 12/25/24 [employer] SUPERVISOR Received On: 12/25/24 General Observations: Pt seated [...] hygiene prior to po Specialty Instructions: alert [employer] SUPERVISOR if pt frequently coughing with thin liquids [...] at 90 degrees. Consistencies Administered: Thin liquids, Soquel thickened liquids, Purees, Solids Administered consistencies contain [...] despite effort (x1, otherwise PAS of 6) Soquel Thickened Liquids: Laryngeal Penetration: Present Aspiration Present: Yes Timing: During Amount: Trace Response to aspiration: None Successful Modifications : Repeat swallow Unsuccessful Modifications: Cough, Repeat swallow Penetration Aspiration Scale-Soquel: 6-Material enters the airway, passes below the [...] treatment goals and details, if indicated. Plan [employer]OR Frequency of Services during current admission: Follow-up visit only [employer] SUPER[employer]OR Recommendation (Add'l Services): No further [employer] SUPER[employer]OR indicated (likely at d/c) Next Visit Plan: treatment/therapy Additional Referrals: consider ENT consult at pt's request Discharge Summary Statement If this is the last swallow therapy visit, this serves as the discharge summary. us Kika Simpson DNP [employer] ORDERABLES Final R esult * POCT glucose (12/24/2024 7:42 AM CDT) Glucose, POC 110 70 - 199 mg/dL Blood 12/24/2024 7:42 AM CDT 12/24/2024 7:42 AM CDT us Indiana Mortensen MD LAB POCT ORDERABLES - DEVICE Final Result [facility] Department [place] [address] * XR Chest 1 View (12/23/2024 10:44 [...] Stable cardiac and mediastinal silhouette. Dictated by: Kirstina Diaz MD The radiology attending physician has [...] plan with the patient's team and other medical/internal audit consultant staff. This time was in addition [...] CDT 12/23/2024 12:37 AM CDT Marian Rodrigues NP LAB BLOOD ORDERABLES Brenda wharton Result [facility] Department [place] [address] * (ABNORMAL) CBC without differential (12/23/2024 12:10 AM CDT) Pathologist [facility] WBC 22.13(H) 3.80 - 9.90 K/cumm Hgb 9.6(L) 11.9 - 15.5 g/dL [facility] Hct 31.2(L) 35.6 - 45.5 % [facility] Plt 289 150 - 400 K/cumm [facility] MPV 9.8 9.1 - 12.3 fL [facility] RBC 3.35(L) 3.90 - 5.20 M/cumm [facility] MCV 93.1 81.3 - 96.4 fL [facility] MCH 28.7 27.1 - 33.3 pg [facility] MCHC 30.8(L) 32.3 - 35.7 g/dL [facility] RDW CV 15.5(H) 11.1 - 14.9 % [facility] RDW SD 52.0(H) 35.7 - 48.1 fL [facility] NRBC abs 0.05(H) 0.00 - 0.01 K/cumm [facility] Blood 12/23/2024 12:1 0 AM CDT 12/23/2024 12:49 AM CDT Kika Alessandra Carrenoly DNP LAB BLOOD ORDERABLES Fi nal Result Performing Organization Address [facility] de Phone Number [facility] Department [place] [address] * Phosphorus (12/23/2024 12:10 AM CDT) Phosphorus, pl 3.4 2.3 - 4.5 mg/dL Blood 12/23/2024 12:1 0 AM CDT 12/23/2024 12:37 AM CDT Kika Aparicio Calvin DNP LAB BLOOD ORDERABLES Fi nal Result Performing Organization Address [facility] de Phone Number [facility] [place] [address] * Magnesium (12/23/2024 12:10 AM CDT) Magnesium 2.2 1.4 - 2.5 mg/dL Blood 12/23/2024 12:1 0 AM CDT 12/23/2024 12:37 AM CDT Kika Alessandra Carrenoly DNP LAB BLOOD ORDERABLES Fi nal Result Performing Organization Address [facility] Co de Phone Number [facility] Department [place] [address] * (ABNORMAL) Comprehensive metabolic panel (12/23/2024 12:10 AM CDT) Sodium 141 135 - 145 mmol/L Potassium, pl 3.8 3.3 - 4.9 mmol/L [facility] Chloride 98 97 - 110 mmol/L [facility] CO2 31 22 - 32 mmol/L [facility] Anion gap 12 2 - 15 mmol/L [facility] BUN 36(H) 6 - 25 mg/dL [facility] Creatinine 1.18(H) 0.60 - 1.10 mg/dL [facility] Glucose 106 70 - 199 mg/dL [facility] Comment: Interpretive Data Fasting glucose >/= [...] 2022. Calcium 8.8 8.5 - 10.3 mg/dL [facility] Bilirubin, total 0.7 0.1 - 1.2 mg/dL [facility] Protein, pl 6.4(L) 6.5 - 8.5 g/dL [facility] Albumin 3.7 3.5 - 5.0 g/dL [facility] Alk phos 91 40 - 130 Units/L [facility] ALT 391(H) 7 - 45 Units/L [facility] AST 70(H) 10 - 45 Units/L [facility] Blood 12/23/2024 12:1 0 AM CDT 12/23/2024 12:37 AM CDT us Kika Simpson DNP LAB BLOOD ORDERABLES Fi nal Result [facility] Department [place] [address] * POCT glucose (12/22/2024 4:05 PM CDT) Glucose, POC 134 70 - 199 mg/dL Blood 12/22/2024 4:05 PM CDT 12/22/2024 4:05 PM CDT us Indiana Mortensen MD LAB POCT ORDERABLES - DEVICE Final Result ALEX [facility] [place] [address] * US VEIN DUPLEX LOWER EXTREMITY RIGHT LIMITED, UNILATERAL (12/22/2024 3:35 PM CDT) Anatomical Region Laterality Modality Vascular Right Ultrasound 12/22/2024 10:4 1 AM CDT Narrative 12/23/2024 11:17 AM CDT [facility] - Department of Vascular Surgery, Vascular Laboratory [address] [place] [id number] Lower Extremity Venous Ultrasound Report Patient Name: ADI FLOWERS : 1960 (64y 1m) Study Date: 12/22/2024 10:41:36 AM Gender: F Tech: Location: [id number] Ref Provider: RUTHANN COX Quality: Adequate Order [...] pain, swelling, and redness - FINDINGS: Performing Sticker Hand: Maria Esther Sam RVT. Right: Duplex scan [...] Electronically Signed By: Ravinder Buitrago MD [facility] [phone] 12/23/2024 10:09:07 AM CDT Procedure Note Ravinder Buitrago MD - 12/23/2024 [facility] - Department of Vascular Surgery,Vascular Laboratory [address] [place] [id number] Lower Extremity Venous Ultrasound Report Patient Name: ADI FLOWERS : 1960 (64y 1m) Study Date: 12/22/2024 10:41:36 AM Gender: F Tech: Location: [id number] Ref Provider: RUTHANN COX Quality: Adequate Order [...] increasedpain, swelling, and redness - FINDINGS: Performing Sticker Hand: Maria Esther Sam RVT. Right: Duplex scan [...] Electronically Signed By: Ravinder Buitrago MD [facility] [phone] 12/23/2024 10:09:07 AM CDT Ruthann Cox FRYER LINE HELPER IMG US PROCEDURES Fin al Result * POCT glucose (12/22/2024 1:23 PM CDT) Glucose, POC 128 70 - 199 mg/dL Blood 12/22/2024 1:23 PM CDT 12/22/2024 1:23 PM CDT Indiana Mortensen MD LAB POCT ORDERABLES - DEVICE Final Result Performing Organization Address City/State/[facility] Co de Phone Number [facility] Department [place] [address] * Potassium, whole blood (12/22/2024 1:18 PM CDT) Potassium, bld 3.4 3.3 - 4.9 mmol/L Blood 12/22/2024 1:18 PM CDT 12/22/2024 1:39 PM CDT us Thoa Thi Rodriguez FRYER LINE HELPER LAB BLOOD ORDERABLES Final Re sult ALEX [facility] Department [place] [address] * XR Chest 1 View (12/22/2024 9:36 [...] Sunny Child M.D. us Thoa Thi Rodriguez FRYER LINE HELPER IMG XR PROCEDURES Final Resul t * POCT glucose (12/22/2024 7:34 AM CDT) Glucose, POC 127 70 - 199 mg/dL Blood 12/22/2024 7:34 AM CDT 12/22/2024 7:34 AM CDT Indiana Mortensen MD LAB POCT ORDERABLES - DEVICE Final Result ALEX [facility] Department [place] [address] * Critical Care (12/22/2024 6:40 AM CDT) [...] plan with the patient's team and other medical/internal audit consultant staff. This time was in addition [...] PCR, surveillance Axilla/Groin (12/22/2024 2:11 AM CDT) [facility] Justice auris DNA Not Detected Not Detected [facility] Comment: Interpretive Data Testing performed by [facility] Infectious Disease [facility] using the Stacie shirin 6800 Justice auris assay. This assay detects DNA from Justice auris using Real-Time PCR. This assay is laboratory developed and is not cleared by the [place] Food and Drug Administration. The performance characteristics have been verified by the [facility]. Axilla/Groin 12/22/2024 2:11 AM CDT 12/22/2024 4:08 AM CDT Narrative ALEX MCKEON - 12/22/2024 1:00 PM CDT Order placed by [facility] due to ring surveillance. us Instant Order Generic Provider LAB MICROBIOLOGY - GENERAL ORDERABLES Final Result Performing Organization Address City/[facility]/ZIP Co de Phone Number [facility] Department [place] [address] [facility] * (ABNORMAL) eGFR (12/22/2024 2:11 [...] 12/22/2024 3:48 AM CDT us Marian Rodrigues [employer]YER LINE HELPER LAB BLOOD ORDERABLES Brenda l Result Performing Organization Address City/[facility]/ZIP Co de Phone Number [facility] Department [place] [address] * (ABNORMAL) CBC without differential (12/22/2024 2:11 AM CDT) WBC 23.59(H) 3.80 - 9.90 K/cumm Hgb 8.8(L) 11.9 - 15.5 g/dL [facility] Hct 27.0(L) 35.6 - 45.5 % [facility] Plt 265 150 - 400 K/cumm [facility] MPV 9.7 9.1 - 12.3 fL [facility] RBC 2.98(L) 3.90 - 5.20 M/cumm [facility] MCV 90.6 81.3 - 96.4 fL [facility] MCH 29.5 27.1 - 33.3 pg [facility] MCHC 32.6 32.3 - 35.7 g/dL [facility] RDW CV 15.8(H) 11.1 - 14.9 % [facility] RDW SD 50.0(H) 35.7 - 48.1 fL [facility] NRBC abs 0.06(H) 0.00 - 0.01 K/cumm [facility] Blood 12/22/2024 2:11 AM CDT 12/22/2024 3:49 AM CDT [facility] LAB BLOOD ORDERABLES Fi nal Result Performing Organization Address [facility] Co de Phone Number [facility] Department [place] [address] * Phosphorus (12/22/2024 2:11 AM CDT) Pathologist [facility] Phosphorus, pl 4.3 2.3 - 4.5 mg/dL Blood 12/22/2024 2:11 AM CDT 12/22/2024 3:48 AM CDT [facility] LAB BLOOD ORDERABLES Fi nal Result Performing Organization Address City/[facility] Co de Phone Number [facility] Department [place] [address] * Magnesium (12/22/2024 2:11 AM CDT) Pathologist [facility] Magnesium 1.9 1.4 - 2.5 mg/dL Blood 12/22/2024 2:11 AM CDT 12/22/2024 3:48 AM CDT us Kika Simpson DNP LAB BLOOD ORDERABLES nal Result [facility] Department [place] [address] * (ABNORMAL) Comprehensive metabolic panel (12/22/2024 2:11 AM CDT) Pathologist [facility] Sodium 143 135 - 145 mmol/L Potassium, pl 3.4 3.3 - 4.9 mmol/L [facility] Chloride 99 97 - 110 mmol/L [facility] CO2 29 22 - 32 mmol/L [facility] Anion gap 15 2 - 15 mmol/L [facility] BUN 32(H) 6 - 25 mg/dL [facility] Creatinine 1.10 0.60 - 1.10 mg/dL [facility] Glucose 114 70 - 199 mg/dL [facility] Comment: Interpretive Data Fasting glucose >/= [...] 2022. Calcium 8.5 8.5 - 10.3 mg/dL [facility] Bilirubin, total 0.8 0.1 - 1.2 mg/dL [facility] Protein, pl 5.9(L) 6.5 - 8.5 g/dL [facility] Albumin 3.3(L) 3.5 - 5.0 g/dL [facility] Alk phos 81 40 - 130 Units/L [facility] ALT 470(H) 7 - 45 Units/L [facility] AST 70(H) 10 - 45 Units/L [facility] Blood 12/22/2024 2:11 AM CDT 12/22/2024 3:48 AM CDT us Kika Simpson DNP LAB BLOOD ORDERABLES Fi nal Result Performing Organization Address [facility] Co de Phone Number [facility] Department [place] [address] * POCT glucose (12/21/2024 9:14 PM CDT) [facility] Signature Glucose, POC 118 70 - 199 mg/dL Blood 12/21/2024 9:14 PM CDT 12/21/2024 9:14 PM CDT us Indiana Mortensen MD LAB POCT ORDERABLES - DEVICE Final Result Performing Organization Address [facility] de Phone Number [facility] Department [place] [address] * Critical Care (12/21/2024 7:43 PM CDT) Narrative Evens Barajas MD PhD - 12/21/2024 7:43 PM CDT Evnes Barajas MD PhD 12/22/2024 6:33 AM Critical [...] plan with the ICU team and other medical/internal audit consultant staff, making frequent assessments and decisions [...] LAB POCT ORDERABLES - DEVICE Final Result [facility] Department [place] [address] * (ABNORMAL) Urinalysis reflex to microscopic (12/21/2024 11:20 AM CDT) Color, ur Straw Yellow Clarity, ur Clear Clear [facility] Specific gravity, ur 1.009 1.003 - 1.030 [facility] pH, urine 6.5 [facility] Comment: Interpretive Data U rine pH is affected by diet, medications, systemic acid-base disturbances, and renal tubular function. pH may affect urinary stone formation. For example, urine pH below 6.0 may help reduce the tendency for calcium phosphate stones and pH greater than 6.0 may reduce the tendency for uric acid stone formation. Source: [facility] [place] Current Interpretive Data was last revised on 2017 Protein, ur ql Negative Negative [facility] Glucose, ur ql Negative Negative [facility] Ketones, ur Negative Negative [facility] Bilirubin, ur Negative Negative [facility] Blood, ur Trace(A) Negative [facility] Urobilinogen, ur <2.0 <2.0 mg/dL [facility] Nitrite, ur Negative Negative [facility] Leukocyte esterase, ur Trace(A) Negative [facility] UA reflex comment Reflex to microscopic UA will be performed. [facility] Urine 12/21/2024 11:2 0 AM CDT 12/21/2024 11:30 AM CDT us Kika Simpson [facility] LAB URINE ORDERABLES Fi nal Result [facility] Department [place] [address] * Blood culture Blood (12/21/2024 11:20 AM CDT) Report Final Report: No growth Blood 12/21/2024 11:2 0 AM CDT 12/21/2024 10:59 PM CDT Narrative [facility] - 12/26/2024 7:00 AM CDT Collection->Peripheral [...] performance characteristics have been verified by the [facility] Microbiology [facility]. For questions about this culture, contact the Microbiology Laboratory at [phone]. Interpretive data was last revised on 24. Kikashasta Aparicio Calvin [facility] LAB MICROBIOLOGY - GENE RAL ORDERABLES Final Result Performing Organization Address City/[facility]/ZIP Co de Phone Number ALEX MCKEON [facility] Department [place] [address] * Blood culture Blood (12/21/2024 11:20 AM CDT) Report Final Report: No growth Blood 12/21/2024 11:2 0 AM CDT 12/21/2024 10:47 PM CDT Narrative ALEX [facility] - 12/26/2024 7:00 AM CDT [...] performance characteristics have been verified by the [facility]. For questions about this culture, contact the Microbiology Laboratory at [phone]. Interpretive data was last revised on 24. Kikashasta Aparicio Calvin [facility] LAB MICROBIOLOGY - GENE RAL ORDERABLES Final Result Performing Organization Address City/[facility]/ZIP Co de Phone Number ALEX MCKEON [facility] Department [place] [address] * (ABNORMAL) Urinalysis, microscopic only (12/21/2024 11:20 AM CDT) WBC, ur 0-5 0 - 5 /HPF RBC, ur 6-10(A) 0 - 2 /HPF [facility] Bacteria, ur Trace(A) [facility] Mucous, ur Present(A) [facility] Urine 12/21/2024 11:2 0 AM CDT 12/21/2024 11:30 AM CDT us Kika Simpson DNP LAB URINE ORDERABLES Fi nal Result [facility] Department [place] [address] * [employer] SUPER[employer]OR Evaluate and Treat (FEES) (12/21/2024 11:19 AM CDT) Narrative [facility] - 12/21/2024 11:19 AM CDT Yasmin Dunaway SLP 12/21/2024 1:59 PM Speech-Language Pathology: Flexible Endoscopic [...] coronary disease. Regular diet, thin liquids per [employer] SUPERVISOR eval 12/13. Episodes of seizures since then. [...] Diet: Regular General Information Adi Flowers 12/21/24 [employer] SUPERVISOR Received On: 12/21/24 General Observations: Pt seen [...] Diet Solids Recommendation: Regular Diet Liquids Recommendations: Soquel thick Recommended Form of Medications: As tolerated [...] Edema: Commissure, posterior Consistencies Administered: Thin liquids, Soquel thick liquids, Honey thick liquids, Purees, Solids Thin Liquids: Laryngeal Penetration: Present Aspiration Present: (unable to rule out) Penetration Aspiration Scale-Thin: 3-Material enters the airway, remains above the vocal folds and is not ejected from the airway ; versus 8 Delilah Scale-Vallecular Residue-Thin Liquids: Mild Delilah Scale-Pyriform Sinus Residue-Thin Liquids: Mild Soquel Thickened Liquids: Laryngeal Penetration: None Aspiration Present: No Penetration Aspiration Scale-Soquel: 1-Material does not enter airway [place] Scale-Vallecular Residue-Soquel Thickened Liquids: Mild [place] Scale-Pyriform Sinus Residue-Soquel Thickened Liquids: Trace Honey Thickened Liquids: Laryngeal Penetration: None Aspiration Present: No Penetration Aspiration Scale-Honey: 1-Material does not enter airway [place] Scale-Vallecular Residue-Honey Thickened Liquids: Mild Delilah Scale-Pyriform Sinus Residue-Honey Thickened Liquids: Trace Purees: Laryngeal Penetration: None Aspiration Present: No Penetration Aspiration Scale-Puree: 1-Material does not enter airway Delilah Scale-Vallecular Residue-Puree: Mild [place] Scale-Pyriform Sinus Residue-Puree: Mild Solids: Laryngeal Penetration: None Aspiration Present: No Penetration Aspiration Scale-Solids: 1-Material does not enter airway [place] Scale-Vallecular Residue-Solids: Mild [place] Scale-Pyriform Sinus Residue-Solids: None Dysphagia Outcome and Severity Scale: Dysphagia Outcomes and Severity Scale: 5 Mild dysphagia Levels 1 & 2 on the JAQUELIN indicate need for nonoral nutrition. Treatment Treatment was not provided this date. Please reference care plan for treatment goals and details, if indicated. Plan [employer] Frequency of Services during current admission: 2-3x/wk [employer] Recommendation (Add'l Services): Defer at this time Next Visit Plan:treatment/therapy Additional Referrals: none Discharge Summary Statement If this is the last swallow therapy visit, this serves as the discharge summary. us Chapito Rodriguez NP [employer] SUPER[employer]OR ORDERABLES Final Result [facility] * COVID-19 Coronavirus RNA Nasopharyngeal (12/21/2024 10:28 AM CDT) Pathologist [facility] COVID-19 RNA Negative Negative [facility] Nasopharyngeal 12/21/2024 10 :28 AM CDT 12/21/2024 11:39 AM CDT Andrew JOHNSON [facility] - 12/21/2024 12:13 PM CDT Is the patient experiencing any symptoms consistent with COVID (eg. Fever, cough, shortness of breath)?->No What is the reason for testing?->Screening prior to urgent surgery, procedure, delivery, transplant, immune suppressive therapy Interpretive data Testing performed by [facility] ([phone]). This test is performed using the [employer] Xpert Xpress CoV-2 plus assay. This is a real-time RT-PCR test intended for the qualitative detection of nucleic acid from the SARS-CoV-2. This assay has been cleared by the [place] Food and Drug administration. The performance characteristics have been verified by the [facility]. Results must be considered in the clinical context, and a negative result does not rule out infection. Interpretive data last revised 2024. Interpretive data Testing performed by [facility] ([phone]). This test is performed using the [employer] Xpert Xpress CoV-2 plus assay. This is a real-time RT-PCR test intended for the qualitative detection of nucleic acid from the SARS-CoV-2. This assay has been cleared by the [place] Food and Drug administration. The performance characteristics have been verified by the [facility]. Results must be considered in the clinical context, and a negative result does not rule out infection. Interpretive data last revised 2024. us Kika Simpson DNP LAB MICROBIOLOGY - GENE RAL ORDERABLES Final Result [facility] Department [place] [address] [facility] * (ABNORMAL) Differential, auto (12/21/2024 10:28 AM CDT) Neutrophil abs 20.93(H) 1.50 - 6.50 K/cumm Imm gran abs 0.95(H) 0.00 - 0.10 K/cumm [facility] Lymphocyte abs 1.22 0.80 - 3.30 K/cumm [facility] Monocyte abs 1.89(H) 0.20 - 0.80 K/cumm [facility] Eosinophil abs 0.57(H) 0.00 - 0.50 K/cumm [facility] Basophil abs 0.12(H) 0.00 - 0.10 K/cumm [facility] Neutrophil pct 81.4 % [facility] Comment: Interpretive Data Percent cell count reference ranges are not reported, since discordance with absolute values may lead to misinterpretation of CBC data. Current Interpretive Data was last revised on 2017. Imm gran pct 3.7 % [facility] Comment: Interpretive Data Percent cell count reference ranges are not reported, since discordance with absolute values may lead to misinterpretation of CBC data. Current Interpretive Data was last revised on 2017. Lymphocyte pct 4.8 % [facility] Comment: Interpretive Data Percent cell count reference ranges are not reported, since discordance with absolute values may lead to misinterpretation of CBC data. Current Interpretive Data was last revised on 2017. Monocyte pct 7.4 % [facility] Comment: Interpretive Data Percent cell count reference ranges are not reported, since discordance with absolute values may lead to misinterpretation of CBC data. Current Interpretive Data was last revised on 2017. Eosinophil pct 2.2 % [facility] Comment: Interpretive Data Percent cell count reference ranges are not reported, since discordance with absolute values may lead to misinterpretation of CBC data. Current Interpretive Data was last revised on 2017. Basophil pct 0.5 % [facility] Comment: Interpretive Data Percent cell count reference ranges are not reported, since discordance with absolute values may lead to misinterpretation of CBC data. Current Interpretive Data was last revised on 2017. Blood 12/21/2024 10:2 8 AM CDT 12/21/2024 11:41 AM CDT Kika Simpson DNP LAB BLOOD ORDERABLES Fi nal Result Performing Organization Address City/[facility]/ZIP Co de Phone Number [facility] Department [place] [address] * (ABNORMAL) CBC with auto differential (12/21/2024 10:28 AM CDT) Pathologist [facility] WBC 25.68(H) 3.80 - 9.90 K/cumm Hgb 8.9(L) 11.9 - 15.5 g/dL [facility] Hct 27.5(L) 35.6 - 45.5 % [facility] Plt 261 150 - 400 K/cumm [facility] MPV 9.5 9.1 - 12.3 fL [facility] RBC 3.01(L) 3.90 - 5.20 M/cumm [facility] MCV 91.4 81.3 - 96.4 fL [facility] MCH 29.6 27.1 - 33.3 pg [facility] MCHC 32.4 32.3 - 35.7 g/dL [facility] RDW CV 15.8(H) 11.1 - 14.9 % [facility] RDW SD 50.8(H) 35.7 - 48.1 fL [facility] NRBC abs 0.08(H) 0.00 - 0.01 K/cumm [facility] Blood 12/21/2024 10:2 8 AM CDT 12/21/2024 11:41 AM CDT Kika Simpson [facility] LAB BLOOD ORDERABLES Fi nal Result Performing Organization Address [facility]/ZIP Co de Phone Number [facility] Department [place] [address] * (ABNORMAL) aPTT (12/21/2024 10:28 AM CDT) Pathologist [facility] aPTT 27(L) 28 - 38 sec Comment: Interpretive Data Heparin therapeutic range: 66.0 - 100.0 seconds. Range based on correlation with therapeutic heparin activity range of 0.3 - 0.7 Units/mL. Current interpretive data was last revised on 2023. Blood 12/21/2024 10:2 8 AM CDT 12/21/2024 11:36 AM CDT [facility] LAB BLOOD ORDERABLES Fi nal Result Performing Organization Address [facility] Co de Phone Number [facility] [place] [address] * (ABNORMAL) Protime-INR (12/21/2024 10:28 AM CDT) PT 13.7(H) 9.7 - 13.0 sec INR 1.26(H) 0.90 - 1.20 [facility] Comment: Interpretive data Oral anticoagulant therapeutic ranges: Venous thromboembolism prophylaxis or treatment: 2.0-3.0 CARDIOLOGY Standard range: 2.0-3.0 High-intensity range: 2.5-3.5 Refer to indication-specific guidelines for appropriate target ranges for prosthetic heart valve replacement. Current interpretive data was last revised on 2019. Blood 12/21/2024 10:2 8 AM CDT 12/21/2024 11:36 AM CDT iKka Simpson [facility] LAB BLOOD ORDERABLES Fi nal Result Performing Organization Address [facility] de Phone Number [facility] [place] [address] * POCT glucose (12/21/2024 7:38 AM CDT) Glucose, POC 119 70 - 199 mg/dL Blood 12/21/2024 7:38 AM CDT 12/21/2024 7:38 AM CDT Indiana Mortensen MD LAB POCT ORDERABLES - DEVICE Final Result Performing Organization Address [facility] de Phone Number [facility] [place] [address] * Critical Care (12/21/2024 7:17 AM CDT) [...] plan with the ICU team and other medical/internal audit consultant staff, making frequent assessments and decisions [...] us Chapito Rodriguez NP IN CLINIC/BEDSIDE ORDERABLES Edited Result - Final * POCT glucose (12/21/2024 3:56 AM CDT) [facility] Signature Glucose, POC 110 70 - 199 mg/dL Blood 12/21/2024 3:56 AM CDT 12/21/2024 3:56 AM CDT us Indiana Mortensen MD LAB POCT ORDERABLES - DEVICE Final Result [facility] Department [place] [address] * (ABNORMAL) CBC without differential (12/21/2024 12:45 AM CDT) Pathologist [facility] WBC 21.05(H) 3.80 - 9.90 K/cumm Hgb 8.4(L) 11.9 - 15.5 g/dL [facility] Hct 25.8(L) 35.6 - 45.5 % [facility] Plt 225 150 - 400 K/cumm [facility] MPV 9.6 9.1 - 12.3 fL [facility] RBC 2.82(L) 3.90 - 5.20 M/cumm [facility] MCV 91.5 81.3 - 96.4 fL [facility] MCH 29.8 27.1 - 33.3 pg [facility] MCHC 32.6 32.3 - 35.7 g/dL [facility] RDW CV 15.6(H) 11.1 - 14.9 % [facility] RDW SD 50.0(H) 35.7 - 48.1 fL [facility] NRBC abs 0.07(H) 0.00 - 0.01 K/cumm [facility] Blood 12/21/2024 12:4 5 AM CDT 12/21/2024 1:10 AM CDT Ruthann Cox NP LAB BLOOD ORDERABLES Final Result [facility] Department [place] [address] * eGFR (12/21/2024 12:03 AM CDT) Pathologist [facility] eGFR 68 >=60 mL/min/1. 73 m2 Comment: [...] 12/21/2024 12:19 AM CDT us Marian Rodrigues [employer] LAB BLOOD ORDERABLES Brenda l Result Performing Organization Address [facility] Co de Phone Number [facility] Department [place] [address] * POCT glucose (12/21/2024 12:03 AM CDT) Glucose, POC 128 70 - 199 mg/dL Blood 12/21/2024 12:0 3 AM CDT 12/21/2024 12:03 AM CDT Indiana Mortensen MD LAB POCT ORDERABLES - DEVICE Final Result Performing Organization Address [facility] de Phone Number [facility] Department [place] [address] * Type and screen (12/21/2024 12:03 AM CDT) Sarah, indirect Negative ABO Rh B Negative [facility] Blood 12/21/2024 12:0 3 AM CDT 12/21/2024 12:21 AM CDT Narrative [facility] - 12/21/2024 1:10 AM CDT Has the patient had Daratumumab or Isatuximab in the past 6 months?->Unknown Kika Simpson [facility] LAB BLOOD BANK TEST ORD ERABLES Final Result Performing Organization Address [facility] Co de Phone Number [facility] [place] [address] * (ABNORMAL) Phosphorus (12/21/2024 12:03 AM CDT) [facility] Phosphorus, pl 5.2(H) 2.3 - 4.5 mg/dL Blood 12/21/2024 12:0 3 AM CDT 12/21/2024 12:19 AM CDT [facility] LAB BLOOD ORDERABLES Fi nal Result Performing Organization Address City/[facility]/[place] [address] * Magnesium (12/21/2024 12:03 AM CDT) [facility] Magnesium 2.0 1.4 - 2.5 mg/dL Blood 12/21/2024 12:0 3 AM CDT 12/21/2024 12:19 AM CDT [facility] LAB BLOOD ORDERABLES Fi nal Result Performing Organization Address City/[facility] Co de Phone Number [facility] [place] [address] * (ABNORMAL) Comprehensive metabolic panel (12/21/2024 12:03 AM CDT) [facility] Sodium 143 135 - 145 mmol/L Potassium, pl 3.8 3.3 - 4.9 mmol/L [facility] Chloride 105 97 - 110 mmol/L [facility] CO2 27 22 - 32 mmol/L [facility] Anion gap 11 2 - 15 mmol/L [facility] BUN 34(H) 6 - 25 mg/dL [facility] Creatinine 0.95 0.60 - 1.10 mg/dL [facility] Glucose 125 70 - 199 mg/dL [facility] Comment: Interpretive Data Fasting glucose >/= [...] 2022. Calcium 8.8 8.5 - 10.3 mg/dL [facility] Bilirubin, total 0.6 0.1 - 1.2 mg/dL [facility] Protein, pl 5.4(L) 6.5 - 8.5 g/dL [facility] Albumin 3.2(L) 3.5 - 5.0 g/dL [facility] Alk phos 87 40 - 130 Units/L [facility] ALT 682(H) 7 - 45 Units/L [facility] AST 136(H) 10 - 45 Units/L [facility] Blood 12/21/2024 12:0 3 AM CDT 12/21/2024 12:19 AM CDT us Kika Simpson [facility] LAB BLOOD ORDERABLES Fi nal Result [facility] Department [place] [address] * XR Chest 1 View (12/20/2024 8:52 PM CDT) Anatomical Region Laterality Modality Body, Chest N/A Digital Radiogra phy 12/20/2024 8:58 PM CDT Impressions 12/20/2024 8:58 PM CDT Comparison to 12/19/2024. Gastric tube terminates below the diaphragm outside the [id number]. Aortic valve replacement suboptimally evaluated. Transvenous pacer [...] tube terminates below the diaphragm outside the [id number]. Aortic valve replacement suboptimally evaluated. Transvenous pacer [...] plan with the ICU team and other medical/internal audit consultant staff, making frequent assessments and decisions [...] documenting in the medical record Ruthann Cox [employer] HEL[employer] IN CLINIC/BEDSIDE ORD ERABLES Final Result * POCT glucose (12/20/2024 8:01 PM CDT) Glucose, POC 111 70 - 199 mg/dL Blood 12/20/2024 8:01 PM CDT 12/20/2024 8:01 PM CDT Indiana Mortensen MD LAB POCT ORDERABLES - DEVICE Final Result Performing Organization Address [facility] de Phone Number [facility] Department [place] [address] * Potassium, whole blood (12/20/2024 3:49 PM CDT) Potassium, bld 4.0 3.3 - 4.9 mmol/L Blood 12/20/2024 3:49 PM CDT 12/20/2024 3:56 PM CDT Angela Cox [employer] LAB BLOOD ORDERABLES Final Result Performing Organization Address [facility] de Phone Number [facility] [place] [address] * POCT glucose (12/20/2024 3:48 PM CDT) Glucose, POC 134 70 - 199 mg/dL Blood 12/20/2024 3:48 PM CDT 12/20/2024 3:48 PM CDT Indiana Mortensen MD LAB POCT ORDERABLES - DEVICE Final Result Performing Organization Address City/[facility]/ZIP Co de Phone Number [facility] [place] [address] * (ABNORMAL) POCT glucose (12/20/2024 3:44 PM CDT) Glucose, POC 371(H) 70 - 199 mg/dL Blood 12/20/2024 3:44 PM CDT 12/20/2024 3:44 PM CDT Indiana Mortensen MD LAB POCT ORDERABLES - DEVICE Final Result Performing Organization Address [facility] [place] [address] * (ABNORMAL) POCT glucose (12/20/2024 3:43 PM CDT) Glucose, POC 364(H) 70 - 199 mg/dL Blood 12/20/2024 3:43 PM CDT 12/20/2024 3:43 PM CDT Indiana Mortensen MD LAB POCT ORDERABLES - DEVICE Final Result Performing Organization Address [facility] Co de Phone Number [facility] [place] [address] * (ABNORMAL) POCT glucose (12/20/2024 3:42 PM CDT) Glucose, POC 367(H) 70 - 199 mg/dL Blood 12/20/2024 3:42 PM CDT 12/20/2024 3:42 PM CDT Indiana Mortensen MD LAB POCT ORDERABLES - DEVICE Final Result Performing Organization Address [facility] Co de Phone Number [facility] [place] [address] * POCT glucose (12/20/2024 11:11 AM CDT) Glucose, POC 113 70 - 199 mg/dL Blood 12/20/2024 11:1 1 AM CDT 12/20/2024 11:11 AM CDT Indiana Mortensen MD LAB POCT ORDERABLES - DEVICE Final Result Performing Organization Address City/[facility] Co de Phone Number [facility] [place] [address] * POCT glucose (12/20/2024 8:12 AM CDT) Glucose, POC 133 70 - 199 mg/dL Blood 12/20/2024 8:12 AM CDT 12/20/2024 8:12 AM CDT Indiana Mortensen MD LAB POCT ORDERABLES - DEVICE Final Result Performing Organization Address [facility] de Phone Number [facility] [place] [address] * Potassium, whole blood (12/20/2024 8:00 AM CDT) Potassium, bld 4.2 3.3 - 4.9 mmol/L Blood 12/20/2024 8:00 AM CDT 12/20/2024 8:24 AM CDT Angela Cox NP LAB BLOOD ORDERABLES Final Result Performing Organization Address City/[facility] Co de Phone Number [facility] [place] [address] * Potassium, whole blood (12/20/2024 6:21 AM CDT) Potassium, bld 4.2 3.3 - 4.9 mmol/L Blood 12/20/2024 6:21 AM CDT 12/20/2024 6:26 AM CDT Angela Cox [employer] LAB BLOOD ORDERABLES Final Result Performing Organization Address City/[facility]/ZIP Co de Phone Number [facility] Department [place] [address] * eGFR (12/19/2024 11:17 PM CDT) eGFR [...] 12/19/2024 11:57 PM CDT us Marian Rodrigues [employer] LAB BLOOD ORDERABLES Brenda l Result Performing Organization Address City/[facility]/ZIP Co de Phone Number [facility] Department [place] [address] * (ABNORMAL) CBC without differential (12/19/2024 11:17 PM CDT) WBC 16.84(H) 3.80 - 9.90 K/cumm Hgb 7.9(L) 11.9 - 15.5 g/dL [facility] Hct 24.5(L) 35.6 - 45.5 % [facility] Plt 208 150 - 400 K/cumm [facility] MPV 9.5 9.1 - 12.3 fL [facility] RBC 2.66(L) 3.90 - 5.20 M/cumm [facility] MCV 92.1 81.3 - 96.4 fL [facility] MCH 29.7 27.1 - 33.3 pg [facility] MCHC 32.2(L) 32.3 - 35.7 g/dL [facility] RDW CV 15.6(H) 11.1 - 14.9 % [facility] RDW SD 49.4(H) 35.7 - 48.1 fL [facility] NRBC abs 0.14(H) 0.00 - 0.01 K/cumm [facility] Blood 12/19/2024 11:1 7 PM CDT 12/19/2024 11:57 PM CDT [facility] BLOOD ORDERABLES Fi nal Result Performing Organization Address City/[facility]/ZIP Co de Phone Number [facility] [place] [address] * Phosphorus (12/19/2024 11:17 PM CDT) Pathologist [facility] Phosphorus, pl 4.4 2.3 - 4.5 mg/dL Blood 12/19/2024 11:1 7 PM CDT 12/19/2024 11:52 PM CDT [facility] LAB BLOOD ORDERABLES Fi nal Result [facility] [place] [address] * Magnesium (12/19/2024 11:17 PM CDT) Pathologist [facility] Magnesium 2.1 1.4 - 2.5 mg/dL Blood 12/19/2024 11:1 7 PM CDT 12/19/2024 11:52 PM CDT Kika Simpson DNP LAB BLOOD ORDERABLES Fi nal Result Performing Organization Address [facility] Co de Phone Number [facility] [place] [address] * Ammonia (12/19/2024 11:17 PM CDT) Ammonia 31 <=50 mcmol/L Blood 12/19/2024 11:1 7 PM CDT 12/19/2024 11:46 PM CDT Chapito Rodriguez [employer] LAB BLOOD ORDERABLES Final Re sult Performing Organization Address [facility] de Phone Number [facility] [place] [address] * Vancomycin level random (12/19/2024 11:17 PM CDT) Pathologist [facility] Vancomycin random 6.5 mcg/mL Comment: Interpretive Data No reference ranges have been established for random drug levels. Current Interpretive Data was last revised on 2020. Blood 12/19/2024 11:1 7 PM CDT 12/19/2024 11:52 PM CDT Indiana Mortensen MD LAB BLOOD ORDERABLES Final Re sult Performing Organization Address [facility] [place] [address] * (ABNORMAL) Comprehensive metabolic panel (12/19/2024 11:17 PM CDT) Pathologist [facility] Sodium 141 135 - 145 mmol/L Potassium, pl 3.8 3.3 - 4.9 mmol/L [facility] Chloride 105 97 - 110 mmol/L [facility] CO2 27 22 - 32 mmol/L [facility] Anion gap 9 2 - 15 mmol/L [facility] BUN 32(H) 6 - 25 mg/dL [facility] Creatinine 0.97 0.60 - 1.10 mg/dL [facility] Glucose 123 70 - 199 mg/dL [facility] Comment: Interpretive Data Fasting glucose >/= [...] 2022. Calcium 8.8 8.5 - 10.3 mg/dL [facility] Bilirubin, total 0.8 0.1 - 1.2 mg/dL [facility] Protein, pl 5.5(L) 6.5 - 8.5 g/dL [facility] Albumin 3.1(L) 3.5 - 5.0 g/dL [facility] Alk phos 82 40 - 130 Units/L [facility] ALT 904(H) 7 - 45 Units/L [facility] AST 273(H) 10 - 45 Units/L [facility] Blood 12/19/2024 11:1 7 PM CDT 12/19/2024 11:52 PM CDT us Kika Simpson DNP LAB BLOOD ORDERABLES Fi nal Result [facility] Department [place] [address] * POCT glucose (12/19/2024 11:16 PM CDT) Glucose, POC 136 70 - 199 mg/dL Blood 12/19/2024 11:1 6 PM CDT 12/19/2024 11:16 PM CDT Indiana Mortensen MD LAB POCT ORDERABLES - DEVICE Final Result [facility] [place] [address] * POCT glucose (12/19/2024 8:12 PM CDT) Glucose, POC 134 70 - 199 mg/dL Blood 12/19/2024 8:12 PM CDT 12/19/2024 8:12 PM CDT Indiana Mortensen MD LAB POCT ORDERABLES - DEVICE Final Result Performing Organization Address [facility] Co de Phone Number [facility] [place] [address] * XR Chest 1 View (12/19/2024 8:05 [...] plan with the ICU team and other medical/internal audit consultant staff, making frequent assessments and decisions [...] in the medical record us Ruthann Cox [employer] HELPER IN CLINIC/BEDSIDE ORD ERABLES Final Result * Potassium, whole blood (12/19/2024 6:19 PM CDT) [facility] Potassium, bld 3.6 3.3 - 4.9 mmol/L Blood 12/19/2024 6:19 PM CDT 12/19/2024 6:52 PM CDT Angela Cox [employer] LAB BLOOD ORDERABLES Final Result Performing Organization Address [facility] Co de Phone Number [facility] [place] [address] * (ABNORMAL) Blood gas, arterial (12/19/2024 6:19 PM CDT) pH, Art 7.46(H) 7.35 - 7.45 PCO2, Arterial 34(L) 35 - 45 mmHg [facility] PO2, Arterial 229(H) 83 - 108 mmHg [facility] HCO3 Art (Calculated) 25 20 - 30 mmol/L [facility] BE, art 1 mmol/L [facility] Comment: Interpretive Data No Reference Range Established Current Interpretive Data was last revised on 2017 O2 Sat Art (Measured) 100(H) 90 - 95 % [facility] Blood 12/19/2024 6:19 PM CDT 12/19/2024 6:52 PM CDT Narrative [facility] - 12/19/2024 6:56 PM CDT Respiratory distress or poor pulse ox waveform (currently w/ moving) Ignacio Brown [employer] LAB BLOOD ORDERABLES Final Result Performing Organization Address [facility] Co de Phone Number [facility] [place] [address] * POCT glucose (12/19/2024 3:41 PM CDT) Glucose, POC 124 70 - 199 mg/dL Blood 12/19/2024 3:41 PM CDT 12/19/2024 3:41 PM CDT Indiana Mortensen MD LAB POCT ORDERABLES - DEVICE Final Result [facility] Department [place] [address] * US Vein Duplex Upper Extremity Bilateral Complete (12/19/2024 12:08 PM CDT) Anatomical Region Laterality Modality Vascular Bilateral Ultrasound 12/19/2024 9:32 AM CDT Narrative 12/19/2024 1:41 PM CDT [facility] - Department of Vascular Surgery, Vascular Laboratory [address] [place] [id number] Upper Extremity Venous Ultrasound Report Patient Name: ADI FLOWERS : 1960 (64y 1m) Study Date: 12/19/2024 9:32:10 AM Gender: F Tech: PA Location: [id number] Ref Provider: CHAPITO RODRIGUEZ Quality: Technically difficult Order Provider: CHAPITO RODRIGUEZ PROCEDURES: Vascular Report: Venous Duplex imaging was performed bilaterally in the upper extremities. The internal jugular, subclavian and axillary veins were evaluated for patency, spontaneity and phasicity with Doppler, compression and augmentation maneuvers. The brachial, basilic and cephalic veins were also evaluated with compression maneuvers. INDICATIONS: Localized edema. FINDINGS: Performing Sticker Hand: Adeola Davis RDMS, RVT. Right: Venous Doppler [...] Electronically Signed By: Ravinder Buitrago MD [facility] [phone] 12/19/2024 1:38:48 PM CDT Procedure Note Ravinder Buitrago MD - 12/19/2024 [employer] - Department of Vascular Surgery,Vascular Laboratory [address] [place], [place] [id number] Upper Extremity Venous Ultrasound Report Patient Name: ADI FLOWERS : 1960 (64y 1m) Study Date: 12/19/2024 9:32:10 AM Gender: F Tech: Location: [id number] Ref Provider: CHAPITO RODRIGUEZ Quality: Technically difficult Order Provider: CHAPITO RODRIGUEZ PROCEDURES: Vascular Report: Venous Duplex imaging was performed bilaterally in the upper extremities.The internal jugular, subclavian and axillary veins were evaluated for patency,spontaneity and phasicity with Doppler, compression and augmentation maneuvers. Thebrachial, basilic and cephalic veins were also evaluated with compression maneuvers. INDICATIONS: Localized edema. FINDINGS: Performing Sticker Hand: Adeola Davis RDMS, RVT. Right: Venous Doppler [...] Electronically Signed By: Ravinder Buitrago MD [facility] [phone] 12/19/2024 1:38:48 PM CDT us Thoa Anna Rodriguez NP IMG US PROCEDURES Final Resul t * US Vein Duplex Lower Extremity Bilateral Complete (12/19/2024 12:07 PM CDT) Anatomical Region Laterality Modality Vascular Bilateral Ultrasound 12/19/2024 9:12 AM CDT Narrative 12/19/2024 1:42 PM CDT [facility] - Department of Vascular Surgery, Vascular Laboratory [address] [place] [address] Lower Extremity Venous Ultrasound Report Patient Name: ADI FLOWERS : 1960 (64y 1m) Study Date: 12/19/2024 9:12:22 AM Gender: F Tech: MS Location: [id number] Ref Provider: CHAPITO RODRIGUEZ Quality: Technically difficult Order Provider: CHAPITO RODRIGUEZ PROCEDURES: Vascular Report: Venous Duplex imaging was performed bilaterally in the lower extremities. The common femoral, femoral, popliteal, posterior tibial, peroneal veins were evaluated for patency, spontaneity and phasicity with Doppler, compression and augmentation maneuvers. Great saphenous vein proximal at the junction was evaluated with compression maneuvers. INDICATIONS: Intermittent fever. FINDINGS: Performing Sticker Hand: Adeola Davis RDMS, RVT. Right: Duplex scan [...] above. Electronically Signed By: Ravinder Buitrago MD FACS [phone] 12/19/2024 1:40:18 PM CDT Procedure Note Ravinder Buitrago MD - 12/19/2024 [facility] - Department of Vascular Surgery,Vascular Laboratory [address] [place] [id number] Lower Extremity Venous Ultrasound Report Patient Name: ADI FLOWERS : 1960 (64y 1m) Study Date: 12/19/2024 9:12:22 AM Gender: F Tech: PA Location: [id number] Ref Provider: CHAPITO RODRIGUEZ Quality: Technically difficult Order Provider: CHAPITO RODRIGUEZ PROCEDURES: Vascular Report: Venous Duplex imaging was performed bilaterally in the lower extremities.The common femoral, femoral, popliteal, posterior tibial, peroneal veins wereevaluated for patency, spontaneity and phasicity with Doppler, compression and augmentationmaneuvers. Great saphenous vein proximal at the junction was evaluated with compressionmaneuvers. INDICATIONS: Intermittent fever. FINDINGS: Performing Sticker Hand: Adeola Davis RDMS, T. Right: Duplex scan [...] Electronically Signed By: Ravinder Buitrago MD [facility] [phone] 12/19/2024 1:40:18 PM CDT us Chapito Rodriguez NP IMG US PROCEDURES Final Resul t * Potassium, whole blood (12/19/2024 12:06 PM CDT) Potassium, bld 3.9 3.3 - 4.9 mmol/L Blood 12/19/2024 12:0 6 PM CDT 12/19/2024 1:36 PM CDT us Angela Cox NP LAB BLOOD ORDERABLES Final Result [facility] Department of Laboratories [place] [id number] * (ABNORMAL) Blood gas, arterial (12/19/2024 12:06 PM CDT) pH, Art 7.44 7.35 - 7.45 PCO2, Arterial 35 35 - 45 mmHg [facility] PO2, Arterial 243(H) 83 - 108 mmHg [facility] HCO3 Art (Calculated) 24 20 - 30 mmol/L [facility] BE, art 0 mmol/L [facility] Comment: Interpretive Data No Reference Range Established Current Interpretive Data was last revised on 2017 O2 Sat Art (Measured) 100(H) 90 - 95 % [facility] Blood 12/19/2024 12:0 6 PM CDT 12/19/2024 1:36 PM CDT Narrative [facility] - 12/19/2024 1:44 PM CDT Respiratory distress or poor pulse ox waveform (currently w/ moving) us Ignacio Brown NP LAB BLOOD ORDERABLES Final Result [facility] Department [place] [address] * POCT glucose (12/19/2024 12:05 PM CDT) Pathologist [facility] Glucose, POC 146 70 - 199 mg/dL Blood 12/19/2024 12:0 5 PM CDT 12/19/2024 12:05 PM CDT us Indiana Mortensen MD LAB POCT ORDERABLES - DEVICE Final Result [facility] Department [place] [address] * XR Chest 1 View (12/19/2024 9:09 [...] it. Electronically signed by: Shala Eldridge M.D. [facility] Anna Mineruong FRYER LINE HELPER IMG XR PROCEDURES Final Resul t * POCT glucose (12/19/2024 8:24 AM CDT) Glucose, POC 141 70 - 199 mg/dL Blood 12/19/2024 8:24 AM CDT 12/19/2024 8:24 AM CDT Indiana Mortensen MD LAB POCT ORDERABLES - DEVICE Final Result [facility] Department [place] [address] * Critical Care (12/19/2024 7:27 AM CDT) [...] plan with the ICU team and other medical/internal audit consultant staff, making frequent assessments and decisions [...] Art POC 31(L) 35 - 45 mmHg [facility] pO2, Art POC 84 83 - 108 mmHg [facility] Na, POC 140 135 - 145 mmol/L [facility] K POC 3.4 3.3 - 4.9 mmol/L [facility] Comment: Interpretive Data Not all point of care methods assess for hemolysis. Confirm with instrument and retest K+ if not consistent with clinical signs and symptoms. Current Interpretive Data was last revised on 2023. Cl, POC 111(H) 97 - 110 mmol/L [facility] Ionized Ca, POC 4.51 4.50 - 5.10 mg/dL [facility] Glucose, POC 140 70 - 199 mg/dL [facility] Lactate POC 1.0 0.7 - 2.0 mmol/L [facility] SO2 (chandra) arterial 98(H) 90 - 95 % [facility] Base excess, POC -0.8 mmol/L [facility] HCO3, Art POC 23 20 - 30 mmol/L [facility] Hct, POC 24.0(L) 36.3 - 45.3 % [facility] Total Hb, POC 8.1(L) 11.9 - 15.5 g/dL [facility] Blood 12/19/2024 6:58 AM CDT 12/19/2024 6:58 AM CDT Indiana Mortensen MD LAB POCT ORDERABLES - DEVICE Final Result Performing Organization Address City/[facility]/ZIP Co de Phone Number [facility] [place] [address] * POCT glucose (12/19/2024 4:21 AM CDT) [facility] Glucose, POC 148 70 - 199 mg/dL Blood 12/19/2024 4:21 AM CDT 12/19/2024 4:21 AM CDT Indiana Mortensen MD LAB POCT ORDERABLES - DEVICE Final Result [facility] Department [place] [address] * Potassium, whole blood (12/18/2024 11:54 PM CDT) Potassium, bld 4.3 3.3 - 4.9 mmol/L Blood 12/18/2024 11:5 4 PM CDT 12/19/2024 12:07 AM CDT us Angela Corona Brooke FRYER LINE HELPER LAB BLOOD ORDERABLES Final Result Performing Organization Address City/[facility]/ZIP Co de Phone Number [facility] Department [place] [address] * eGFR (12/18/2024 11:54 PM CDT) eGFR [...] 12/19/2024 12:10 AM CDT us Marian Rodrigues FRYER LINE HELPER LAB BLOOD ORDERABLES Brenda l Result Performing Organization Address City/[facility]/ZIP Co de Phone Number [facility] Department [place] [address] * (ABNORMAL) CBC without differential (12/18/2024 11:54 PM CDT) WBC 20.35(H) 3.80 - 9.90 K/cumm Hgb 7.8(L) 11.9 - 15.5 g/dL [facility] Hct 23.3(L) 35.6 - 45.5 % [facility] Plt 211 150 - 400 K/cumm [facility] MPV 9.4 9.1 - 12.3 fL [facility] RBC 2.58(L) 3.90 - 5.20 M/cumm [facility] MCV 90.3 81.3 - 96.4 fL [facility] MCH 30.2 27.1 - 33.3 pg [facility] MCHC 33.5 32.3 - 35.7 g/dL [facility] RDW CV 15.0(H) 11.1 - 14.9 % [facility] RDW SD 46.8 35.7 - 48.1 fL [facility] NRBC abs 0.26(H) 0.00 - 0.01 K/cumm [facility] Blood 12/18/2024 11:5 4 PM CDT 12/19/2024 12:11 AM CDT us Kika Simpson [facility] LAB BLOOD ORDERABLES Fi nal Result Performing Organization Address City/[facility]/ZIP Co de Phone Number [facility] Department [place] [address] * Type and screen (12/18/2024 11:54 PM CDT) Pathologist [facility] ABO Rh B Negative Sarah, indirect Negative [facility] Blood 12/18/2024 11:5 4 PM CDT 12/19/2024 12:14 AM CDT Narrative [facility] - 12/19/2024 1:16 AM CDT Has the patient had Daratumumab or Isatuximab in the past 6 months?->Unknown us Indiana Mortensen MD LAB BLOOD BANK TEST ORDERABLE S Final Result [facility] [place] [address] * Phosphorus (12/18/2024 11:54 PM CDT) [facility] Phosphorus, pl 3.0 2.3 - 4.5 mg/dL Blood 12/18/2024 11:5 4 PM CDT 12/19/2024 12:10 AM CDT Kika Alessandra [facility] LAB BLOOD ORDERABLES Fi nal Result Performing Organization Address [facility] [place] [address] * Magnesium (12/18/2024 11:54 PM CDT) [facility] Magnesium 2.0 1.4 - 2.5 mg/dL Blood 12/18/2024 11:5 4 PM CDT 12/19/2024 12:10 AM CDT Kika Alessandra [facility] LAB BLOOD ORDERABLES Fi nal Result Performing Organization Address [facility] de Phone Number [facility] [place] [address] * (ABNORMAL) Blood gas, arterial (12/18/2024 11:54 PM CDT) [facility] pH, Art 7.46(H) 7.35 - 7.45 PCO2, Arterial 30(L) 35 - 45 mmHg [facility] PO2, Arterial 174(H) 83 - 108 mmHg [facility] HCO3 Art (Calculated) 22 20 - 30 mmol/L [facility] BE, art -2 mmol/L [facility] Comment: Interpretive Data No Reference Range Established Current Interpretive Data was last revised on 2017 O2 Sat Art (Measured) 100(H) 90 - 95 % [facility] Blood 12/18/2024 11:5 4 PM CDT 12/19/2024 12:07 AM CDT Narrative [facility] - 12/19/2024 12:12 AM CDT Respiratory distress or poor pulse ox waveform (currently w/ moving) Ignacio Brown NP LAB BLOOD ORDERABLES Final Result [facility] Department [place] [address] * (ABNORMAL) Comprehensive metabolic panel (12/18/2024 11:54 PM CDT) Sodium 140 135 - 145 mmol/L Potassium, pl 4.3 3.3 - 4.9 mmol/L [facility] Chloride 108 97 - 110 mmol/L [facility] CO2 23 22 - 32 mmol/L [facility] Anion gap 9 2 - 15 mmol/L [facility] BUN 33(H) 6 - 25 mg/dL [facility] Creatinine 0.94 0.60 - 1.10 mg/dL [facility] Glucose 148 70 - 199 mg/dL [facility] Comment: Interpretive Data Fasting glucose >/= [...] 2022. Calcium 8.2(L) 8.5 - 10.3 mg/dL [facility] Bilirubin, total 0.6 0.1 - 1.2 mg/dL [facility] Protein, pl 5.4(L) 6.5 - 8.5 g/dL [facility] Albumin 3.0(L) 3.5 - 5.0 g/dL [facility] Alk phos 84 40 - 130 Units/L [facility] ALT 1,143(H) 7 - 45 Units/L [facility] AST 576(H) 10 - 45 Units/L [facility] Blood 12/18/2024 11:5 4 PM CDT 12/19/2024 12:10 AM CDT us Kika Simpson DNP LAB BLOOD ORDERABLES Fi nal Result [facility] [place] [address] * POCT glucose (12/18/2024 11:53 PM CDT) Glucose, POC 157 70 - 199 mg/dL Blood 12/18/2024 11:5 3 PM CDT 12/18/2024 11:53 PM CDT us Indiana Mortensen MD LAB POCT ORDERABLES - DEVICE Final Result Performing Organization Address City/[facility] Co de Phone Number [facility] [place] [address] * Potassium, whole blood (12/18/2024 8:25 PM CDT) Potassium, bld 3.8 3.3 - 4.9 mmol/L Blood 12/18/2024 8:25 PM CDT 12/18/2024 8:34 PM CDT us Angela Cox FRYER LINE HELPER LAB BLOOD ORDERABLES Final Result [facility] [place] [address] * POCT glucose (12/18/2024 8:21 PM CDT) Glucose, POC 141 70 - 199 mg/dL Blood 12/18/2024 8:21 PM CDT 12/18/2024 8:21 PM CDT us Indiana Mortensen MD LAB POCT ORDERABLES - DEVICE Final Result [facility] Department [place] [address] * XR Chest 1 View (12/18/2024 7:38 [...] plan with the ICU team and other medical/internal audit consultant staff, making frequent assessments and decisions [...] organisms seen. Report Final Report: No growth [facility] Pleural fluid (Pleural) 12/18/2024 4:19 PM CDT 12/18/2024 5:20 PM CDT Narrative [facility] - 12/24/2024 1:41 PM CDT Fluid specimen received. Testing performed by [facility] ([phone]) Specimens submitted from normally sterile body sites [...] interpretive data was last revised on 2019. us Josr AUGUSTIN LAB MICROBIOLOGY - [facility] AL ORDERABLES Final Result Performing Organization Address City/State/[facility] de Phone Number [facility] Department [place] [address] * Protein, body fluid (12/18/2024 4:19 PM CDT) Specimen type, fld Pleural Body site, fld Pleural fluid, left [facility] Protein, fld 2.0 g/dL [facility] Comment: The above specimen type is not [...] LS ORDERABLES Final Result Performing Organization Address City/[facility] Co de Phone Number [facility] Department [place] [address] * Lactate dehydrogenase, body fluid (12/18/2024 4:19 PM CDT) Specimen type, fld Pleural Body site, fld Pleural fluid, left [facility] LD, fld 323 Units/L [facility] Comment: The above specimen type is not [...] LS ORDERABLES Final Result Performing Organization Address [facility] Co de Phone Number [facility] [place] [address] * Transfuse RBC (12/18/2024 4:06 PM CDT) Blood us Josr AUGUSTIN BLOOD TRANSFUSION ORDERA BLES Edited Result - Final Performing Organization Address [facility] Co de Phone Number [facility] [place] [address] * Potassium, whole blood (12/18/2024 4:00 PM CDT) Potassium, bld 3.4 3.3 - 4.9 mmol/L Blood 12/18/2024 4:00 PM CDT 12/18/2024 4:06 PM CDT Angela Cox FRYER LINE HELPER LAB BLOOD ORDERABLES Final Result Performing Organization Address City/[facility]/ZIP Co de Phone Number [facility] [place] [address] * POCT glucose (12/18/2024 3:58 PM CDT) Glucose, POC 124 70 - 199 mg/dL Blood 12/18/2024 3:58 PM CDT 12/18/2024 3:58 PM CDT Indiana Mortensen MD LAB POCT ORDERABLES - DEVICE Final Result Performing Organization Address [facility] Co de Phone Number [facility] [place] [address] * MRSA Only (Staphylococcus aureus) Culture Nasal (12/18/2024 2:22 PM CDT) Report Final Report: Negative Nasal 12/18/2024 2:22 PM CDT 12/18/2024 3:31 PM CDT Narrative [facility] - 12/19/2024 5:03 PM CDT Testing performed by [facility] ([phone]). Marian Rodrigues NP LAB MICROBIOLOGY - GENERA L ORDERABLES Final Result Performing Organization Address [facility] [place] [address] * (ABNORMAL) POC Blood Gas and Chemistries, Arterial - (12/18/2024 11:03 AM CDT) pH, Art POC 7.41 7.35 - 7.45 pCO2, Art POC 29(L) 35 - 45 mmHg [facility] pO2, Art POC 83 83 - 108 mmHg [facility] Na, POC 139 135 - 145 mmol/L [facility] K POC 4.0 3.3 - 4.9 mmol/L [facility] Comment: Interpretive Data Not all point of care methods assess for hemolysis. Confirm with instrument and retest K+ if not consistent with clinical signs and symptoms. Current Interpretive Data was last revised on 2023. Cl, POC 110 97 - 110 mmol/L [facility] Ionized Ca, POC 4.56 4.50 - 5.10 mg/dL [facility] Glucose, POC 143 70 - 199 mg/dL [facility] Lactate POC 3.3(H) 0.7 - 2.0 mmol/L [facility] SO2 (chandra) arterial 97(H) 90 - 95 % [facility] Base excess, POC -5.5 mmol/L [facility] HCO3, Art POC 18(L) 20 - 30 mmol/L [facility] Hct, POC 23.0(L) 36.3 - 45.3 % [facility] Total Hb, POC 7.8(L) 11.9 - 15.5 g/dL [facility] Blood 12/18/2024 11:0 3 AM CDT 12/18/2024 11:03 AM CDT Indiana Mortensen MD LAB POCT ORDERABLES - DEVICE Final Result [facility] Department [place] [address] * XR Chest 1 View (12/18/2024 10:23 [...] Hudson DNP - 12/18/2024 9:33 AM CDT [facility] Interventional Pulmonary Patient Name: Adi Flowers Procedure Date: 12/18/2024 9:33 AM Date of : 1960 Admit Type: Inpatient Age: 64 Room: [address] [place] [address] Gender: Female Note Status: Finalized Procedure: L [...] insertion: Thoracentesis with tube insertion using an [employer]Simpson Pleura-Seal Thoracentesis Kit (8Fr.) was then performed [...] post-procedure. Electronically signed by Marian Hudson NP-C JORDI Velasquez 12/18/2024 11:10:19 AM Number of Addenda: 0 Note Initiated On: 12/18/2024 10:01 AM Marian Hudson DNP IN CLINIC/BEDSIDE ORDER ROSY Final Result * Prepare RBC: 1 Units (12/18/2024 9:00 AM CDT) Pathologist [facility] Product code [id number] Unit Number [id number] [facility] Product Blood Type BNEG [facility] Dispense Status PRESUMED TRANSFUSED [facility] Blood 12/18/2024 9:00 AM CDT 12/18/2024 8:59 AM CDT Narrative [facility] - 12/19/2024 12:56 AM CDT Are special requirements needed? (All products are leukoreduced and CMV- safe)- >No Date required:-[id number] LRRBC # of [id number] Reasons:-Cardiovascular disease, Hgb <8 g/dL} Josr AUGUSTIN BLOOD BANK PRODUCT ORDER ROSY Final Result [facility] Department [place] [address] * POCT glucose (12/18/2024 7:56 AM CDT) Glucose, POC 148 70 - 199 mg/dL Blood 12/18/2024 7:56 AM CDT 12/18/2024 7:56 AM CDT us Indiana Mortensen MD LAB POCT ORDERABLES - DEVICE Final Result [facility] Department [place] [address] * Critical Care (12/18/2024 7:39 AM CDT) [...] plan with the ICU team and other medical/internal audit consultant staff, making frequent assessments and decisions [...] BLOOD ORDERABLES Final Result Performing Organization Address [facility] de Phone Number [facility] [place] [address] * (ABNORMAL) aPTT (12/18/2024 1:20 AM CDT) [...] BLOOD ORDERABLES Final Result Performing Organization Address [facility] Phone Number [facility] [place] [address] * (ABNORMAL) Protime-INR (12/18/2024 1:20 AM CDT) PT 14.3(H) 9.7 - 13.0 sec INR 1.32(H) 0.90 - 1.20 [facility] Comment: Interpretive data Oral anticoagulant therapeutic ranges: Venous thromboembolism prophylaxis or treatment: 2.0-3.0 CARDIOLOGY Standard range: 2.0-3.0 High-intensity range: 2.5-3.5 Refer to indication-specific guidelines for appropriate target ranges for prosthetic heart valve replacement. Current interpretive data was last revised on 2019. Blood 12/18/2024 1:20 AM CDT 12/18/2024 1:40 AM CDT Ignacio Brown NP LAB BLOOD ORDERABLES Final Result Performing Organization Address [facility] de Phone Number [facility] Department [place] [address] * (ABNORMAL) CBC without differential (12/18/2024 1:20 AM CDT) [facility] WBC 23.30(H) 3.80 - 9.90 K/cumm Hgb 7.2(L) 11.9 - 15.5 g/dL [facility] Hct 21.1(L) 35.6 - 45.5 % [facility] Plt 233 150 - 400 K/cumm [facility] MPV 9.4 9.1 - 12.3 fL [facility] RBC 2.40(L) 3.90 - 5.20 M/cumm [facility] MCV 87.9 81.3 - 96.4 fL [facility] MCH 30.0 27.1 - 33.3 pg [facility] MCHC 34.1 32.3 - 35.7 g/dL [facility] RDW CV 14.5 11.1 - 14.9 % [facility] RDW SD 45.7 35.7 - 48.1 fL [facility] NRBC abs 0.17(H) 0.00 - 0.01 K/cumm [facility] Blood 12/18/2024 1:20 AM CDT 12/18/2024 1:34 AM CDT Ignacio Brown NP LAB BLOOD ORDERABLES Final Result [facility] Department [place] [address] * Infection Prevention Justice auris PCR, surveillance Axilla/Groin (12/18/2024 12:42 AM CDT) [facility] Justice auris DNA Not Detected Not Detected [facility] Comment: Interpretive Data Testing performed by [facility] Infectious Disease [facility] using the Stacie shirin 6800 Justice auris assay. This assay detects DNA from Justice auris using Real-Time PCR. This assay is laboratory developed and is not cleared by the [place] Food and Drug Administration. The performance characteristics have been verified by the [facility]. Axilla/Groin 12/18/2024 12:4 2 AM CDT 12/18/2024 1:50 AM CDT Narrative [facility] - 12/18/2024 12:42 PM CDT Order placed by [facility] due to ring surveillance. us Instant Order Generic Provider LAB MICROBIOLOGY - GENERAL ORDERABLES Final Result Performing Organization Address City/[facility]/ZIP Co de Phone Number [facility] [place] [address] [facility] * eGFR (12/18/2024 12:42 AM [...] 12/18/2024 12:54 AM CDT us Marian Rodrigues FRYER LINE HELPER LAB BLOOD ORDERABLES Brenda l Result Performing Organization Address City/[facility]/ZIP Co de Phone Number [facility] Department [place] [address] * (ABNORMAL) CBC without differential (12/18/2024 12:42 AM CDT) WBC 21.90(H) 3.80 - 9.90 K/cumm Hgb 6.5(L) 11.9 - 15.5 g/dL [facility] Hct 19.7(L) 35.6 - 45.5 % [facility] Plt 145(L) 150 - 400 K/cumm [facility] MPV 10.3 9.1 - 12.3 fL [facility] RBC 2.18(L) 3.90 - 5.20 M/cumm [facility] [facility] MCV 90.4 81.3 - 96.4 fL [facility] MCH 29.8 27.1 - 33.3 pg [facility] MCHC 33.0 32.3 - 35.7 g/dL [facility] RDW CV 14.4 11.1 - 14.9 % [facility] RDW SD 45.6 35.7 - 48.1 fL [facility] NRBC abs 0.22(H) 0.00 - 0.01 K/cumm [facility] Blood 12/18/2024 12:4 2 AM CDT 12/18/2024 12:54 AM CDT [facility] LAB BLOOD ORDERABLES Fi nal Result Performing Organization Address [facility] de Phone Number [facility] [place] [address] * Phosphorus (12/18/2024 12:42 AM CDT) Pathologist [facility] Phosphorus, pl 2.9 2.3 - 4.5 mg/dL Blood 12/18/2024 12:4 2 AM CDT 12/18/2024 12:54 AM CDT [facility] LAB BLOOD ORDERABLES Fi nal Result Performing Organization Address City/[facility]/ZIP Co de Phone Number [facility] [place] [address] * Magnesium (12/18/2024 12:42 AM CDT) Magnesium 2.2 1.4 - 2.5 mg/dL Blood 12/18/2024 12:4 2 AM CDT 12/18/2024 12:54 AM CDT us Kika Simpson DNP LAB BLOOD ORDERABLES Fi nal Result [facility] Department [place] [address] * (ABNORMAL) Comprehensive metabolic panel (12/18/2024 12:42 AM CDT) Sodium 138 135 - 145 mmol/L Potassium, pl 3.8 3.3 - 4.9 mmol/L [facility] Chloride 110 97 - 110 mmol/L [facility] CO2 19(L) 22 - 32 mmol/L [facility] Anion gap 9 2 - 15 mmol/L [facility] BUN 33(H) 6 - 25 mg/dL [facility] Creatinine 0.93 0.60 - 1.10 mg/dL [facility] Glucose 132 70 - 199 mg/dL [facility] Comment: Interpretive Data Fasting glucose >/= [...] 2022. Calcium 7.2(L) 8.5 - 10.3 mg/dL [facility] Bilirubin, total 0.4 0.1 - 1.2 mg/dL [facility] Protein, pl 4.9(L) 6.5 - 8.5 g/dL [facility] Albumin 2.7(L) 3.5 - 5.0 g/dL [facility] Alk phos 77 40 - 130 Units/L [facility] ALT 1,266(H) 7 - 45 Units/L [facility] AST 880(H) 10 - 45 Units/L [facility] Blood 12/18/2024 12:4 2 AM CDT 12/18/2024 12:54 AM CDT us Kika Simpson DNP LAB BLOOD ORDERABLES Fi nal Result Performing Organization Address [facility]/ZIP Co de Phone Number [facility] Department [place] [address] * (ABNORMAL) Blood gas, arterial (12/17/2024 9:40 PM CDT) pH, Art 7.41 7.35 - 7.45 PCO2, Arterial 32(L) 35 - 45 mmHg [facility] PO2, Arterial 162(H) 83 - 108 mmHg [facility] HCO3 Art (Calculated) 21 20 - 30 mmol/L [facility] BE, art -4 mmol/L [facility] Comment: Interpretive Data No Reference Range Established Current Interpretive Data was last revised on 2017 O2 Sat Art (Measured) 100(H) 90 - 95 % [facility] Blood 12/17/2024 9:40 PM CDT 12/17/2024 9:46 PM CDT us Ignacio Brown [employer] LAB BLOOD ORDERABLES Final Result [facility] Department [place] [address] * POCT glucose (12/17/2024 8:50 PM CDT) Glucose, POC 135 70 - 199 mg/dL Blood 12/17/2024 8:50 PM CDT 12/17/2024 8:50 PM CDT us Indiana Mortensen MD LAB POCT ORDERABLES - DEVICE Final Result [facility] Department [place] [address] * XR Chest 1 View (12/17/2024 7:10 [...] agrees with it. Electronically signed by: Shelton Gerson Jericho, M.D. us Alecia Acosta [employer] IMG XR PROCEDURES Final Result * Critical [...] plan with the ICU team and other medical/internal audit consultant staff, making frequent assessments and decisions [...] in the medical record us Ignacio Brown [employer] HEL[employer] IN CLINIC/BEDSIDE ORDERABL ES Final Result * POCT glucose (12/17/2024 5:24 PM CDT) [facility] Signature Glucose, POC 141 70 - 199 mg/dL Blood 12/17/2024 5:24 PM CDT 12/17/2024 5:24 PM CDT Indiana Mortensen MD LAB POCT ORDERABLES - DEVICE Final Result [facility] Department [place] [address] * Potassium, whole blood (12/17/2024 11:54 AM CDT) Pathologist [facility] Potassium, bld 4.5 3.3 - 4.9 mmol/L Blood 12/17/2024 11:5 4 AM CDT 12/17/2024 12:03 PM CDT Ignacio Brown NP LAB BLOOD ORDERABLES Final Result Performing Organization Address [facility] Co de Phone Number [facility] Department [place] [address] * POCT glucose (12/17/2024 11:54 AM CDT) [facility] Glucose, POC 134 70 - 199 mg/dL Blood 12/17/2024 11:5 4 AM CDT 12/17/2024 11:54 AM CDT Indiana Mortensen MD LAB POCT ORDERABLES - DEVICE Final Result Performing Organization Address [facility] de Phone Number [facility] Department [place] [address] * (ABNORMAL) Blood gas, arterial (12/17/2024 11:54 AM CDT) [facility] pH, Art 7.39 7.35 - 7.45 PCO2, Arterial 32(L) 35 - 45 mmHg [facility] PO2, Arterial 157(H) 83 - 108 mmHg [facility] HCO3 Art (Calculated) 20 20 - 30 mmol/L [facility] BE, art -5 mmol/L [facility] Comment: Interpretive Data No Reference Range Established Current Interpretive Data was last revised on 2017 O2 Sat Art (Measured) 100(H) 90 - 95 % [facility] Blood 12/17/2024 11:5 4 AM CDT 12/17/2024 12:03 PM CDT Indiana Mortensen MD LAB BLOOD ORDERABLES Final Re sult Performing Organization Address [facility]/ZIP Co de Phone Number [facility] Department [place] [address] * XR Abdomen 1 View AP (12/17/2024 [...] POCT ORDERABLES - DEVICE Final Result [facility] Department [place] [address] * Critical Care (12/17/2024 7:19 AM CDT) [...] plan with the ICU team and other medical/internal audit consultant staff, making frequent assessments and decisions [...] PCO2, Arterial 31(L) 35 - 45 mmHg [facility] PO2, Arterial 157(H) 83 - 108 mmHg [facility] HCO3 Art (Calculated) 19(L) 20 - 30 mmol/L [facility] BE, art -6 mmol/L [facility] Comment: Interpretive Data No Reference Range Established Current Interpretive Data was last revised on 2017 O2 Sat Art (Measured) 100(H) 90 - 95 % [facility] Blood 12/17/2024 5:31 AM CDT 12/17/2024 5:51 AM CDT Ignacio Brown [employer] LAB BLOOD ORDERABLES Final Result Performing Organization Address [facility] Co de Phone Number [facility] [place] [address] * Potassium, whole blood (12/17/2024 5:04 AM CDT) Pathologist [facility] Potassium, bld 4.7 3.3 - 4.9 mmol/L Blood 12/17/2024 5:04 AM CDT 12/17/2024 5:24 AM CDT Ignacio Brown [employer] LAB BLOOD ORDERABLES Final Result Performing Organization Address [facility] de Phone Number [facility] [place] [address] * Vancomycin level random (12/17/2024 1:48 AM CDT) Pathologist [facility] Vancomycin random 10.5 mcg/mL Comment: Interpretive Data No reference ranges have been established for random drug levels. Current Interpretive Data was last revised on 2020. Blood 12/17/2024 1:48 AM CDT 12/17/2024 2:11 AM CDT Sepideh Rees [employer] LAB BLOOD ORDERABLES Final Result Performing Organization Address [facility] Co de Phone Number [facility] Department [place] [address] * (ABNORMAL) eGFR (12/17/2024 12:12 AM CDT) [facility] eGFR 35(L) >=60 mL/min/1. 73 m2 [...] BLOOD ORDERABLES Final Result Performing Organization Address [facility] de Phone Number [facility] [place] [address] * (ABNORMAL) Protime-INR (12/17/2024 12:12 AM CDT) PT 15.0(H) 9.7 - 13.0 sec INR 1.38(H) 0.90 - 1.20 [facility] Comment: Interpretive data Oral anticoagulant therapeutic ranges: Venous thromboembolism prophylaxis or treatment: 2.0-3.0 CARDIOLOGY Standard range: 2.0-3.0 High-intensity range: 2.5-3.5 Refer to indication-specific guidelines for appropriate target ranges for prosthetic heart valve replacement. Current interpretive data was last revised on 2019. Blood 12/17/2024 12:1 2 AM CDT 12/17/2024 12:43 AM CDT Ignacio Brown NP LAB BLOOD ORDERABLES Final Result Performing Organization Address [facility] Co de Phone Number [facility] [place] [address] * (ABNORMAL) CBC without differential (12/17/2024 12:12 AM CDT) Pathologist [facility] WBC 22.88(H) 3.80 - 9.90 K/cumm Hgb 8.0(L) 11.9 - 15.5 g/dL [facility] Hct 22.8(L) 35.6 - 45.5 % [facility] Plt 275 150 - 400 K/cumm [facility] MPV 9.2 9.1 - 12.3 fL [facility] RBC 2.61(L) 3.90 - 5.20 M/cumm [facility] MCV 87.4 81.3 - 96.4 fL [facility] MCH 30.7 27.1 - 33.3 pg [facility] MCHC 35.1 32.3 - 35.7 g/dL [facility] RDW CV 14.1 11.1 - 14.9 % [facility] RDW SD 44.1 35.7 - 48.1 fL [facility] NRBC abs 0.25(H) 0.00 - 0.01 K/cumm [facility] Blood 12/17/2024 12:1 2 AM CDT 12/17/2024 12:36 AM CDT Kika Aparicio [facility] LAB BLOOD ORDERABLES Fi nal Result Performing Organization Address [facility] de Phone Number [facility] [place] [address] * (ABNORMAL) Phosphorus (12/17/2024 12:12 AM CDT) [facility] Phosphorus, pl 6.4(H) 2.3 - 4.5 mg/dL Blood 12/17/2024 12:1 2 AM CDT 12/17/2024 12:35 AM CDT [facility] LAB BLOOD ORDERABLES Fi nal Result Performing Organization Address [facility] Co de Phone Number [facility] [place] [address] * (ABNORMAL) Magnesium (12/17/2024 12:12 AM CDT) Pathologist [facility] Magnesium 2.6(H) 1.4 - 2.5 mg/dL Blood 12/17/2024 12:1 2 AM CDT 12/17/2024 12:35 AM CDT Kika Simpson DNP LAB BLOOD ORDERABLES Fi nal Result [facility] Department [place] [address] * (ABNORMAL) Hepatic function panel (12/17/2024 12:12 AM CDT) [facility] Bilirubin, total 0.7 0.1 - 1.2 mg/dL Bilirubin, direct 0.4(H) 0.1 - 0.3 mg/dL [facility] Protein, pl 5.5(L) 6.5 - 8.5 g/dL [facility] Albumin 3.0(L) 3.5 - 5.0 g/dL [facility] Alk phos 82 40 - 130 Units/L [facility] ALT 1,791(H) 7 - 45 Units/L [facility] Comment:Repeated on Dilution AST 2,012(H) 10 - 45 Units/L [facility] Comment:Repeated on Dilution Blood 12/17/2024 12:1 2 AM CDT 12/17/2024 12:35 AM CDT us Ignacio Brown [employer] LAB BLOOD ORDERABLES Final Result [facility] Department [place] [address] * (ABNORMAL) Basic metabolic panel (12/17/2024 12:12 AM CDT) [facility] Sodium 135 135 - 145 mmol/L Potassium, pl 5.4(H) 3.3 - 4.9 mmol/L [facility] Chloride 104 97 - 110 mmol/L [facility] CO2 20(L) 22 - 32 mmol/L [facility] Anion gap 11 2 - 15 mmol/L [facility] BUN 32(H) 6 - 25 mg/dL [facility] Creatinine 1.65(H) 0.60 - 1.10 mg/dL [facility] Glucose 120 70 - 199 mg/dL [facility] Comment: Interpretive Data Fasting glucose >/= [...] 2022. Calcium 8.2(L) 8.5 - 10.3 mg/dL [facility] Blood 12/17/2024 12:1 2 AM CDT 12/17/2024 12:35 AM CDT Ignacio Brown NP LAB BLOOD ORDERABLES Final Result [facility] [place] [address] * (ABNORMAL) Potassium, whole blood (12/16/2024 9:30 PM CDT) [facility] Potassium, bld 5.2(H) 3.3 - 4.9 mmol/L Blood 12/16/2024 9:30 PM CDT 12/16/2024 9:40 PM CDT Ignacio Brown NP LAB BLOOD ORDERABLES Final Result [facility] Department [place] [address] * (ABNORMAL) eGFR (12/16/2024 9:30 PM CDT) [...] Brown NP LAB BLOOD ORDERABLES Final Result [facility] Department [place] [address] * (ABNORMAL) Blood gas, arterial (12/16/2024 9:30 PM CDT) pH, Art 7.34(L) 7.35 - 7.45 PCO2, Arterial 34(L) 35 - 45 mmHg [facility] PO2, Arterial 176(H) 83 - 108 mmHg [facility] HCO3 Art (Calculated) 19(L) 20 - 30 mmol/L [facility] BE, art -6 mmol/L [facility] Comment: Interpretive Data No Reference Range Established Current Interpretive Data was last revised on 2017 O2 Sat Art (Measured) 100(H) 90 - 95 % [facility] Blood 12/16/2024 9:30 PM CDT 12/16/2024 9:40 PM CDT Ignacio Brown NP LAB BLOOD ORDERABLES Final Result [facility] Department [place] [address] * (ABNORMAL) Basic metabolic panel (12/16/2024 9:30 PM CDT) [facility] Sodium 136 135 - 145 mmol/L Potassium, pl 5.5(H) 3.3 - 4.9 mmol/L [facility] Chloride 105 97 - 110 mmol/L [facility] CO2 20(L) 22 - 32 mmol/L [facility] Anion gap 11 2 - 15 mmol/L [facility] BUN 30(H) 6 - 25 mg/dL [facility] Creatinine 1.69(H) 0.60 - 1.10 mg/dL [facility] Glucose 120 70 - 199 mg/dL [facility] Comment: Interpretive Data Fasting glucose >/= [...] 2022. Calcium 8.3(L) 8.5 - 10.3 mg/dL [facility] Blood 12/16/2024 9:30 PM CDT 12/16/2024 9:43 PM CDT Ignacio Brown NP LAB BLOOD ORDERABLES Final Result Performing Organization Address [facility]/ZIP Co de Phone Number [facility] Department [place] [address] * POCT glucose (12/16/2024 8:39 PM CDT) Glucose, POC 122 70 - 199 mg/dL Blood 12/16/2024 8:39 PM CDT 12/16/2024 8:39 PM CDT us Indiana Mortensen MD LAB POCT ORDERABLES - DEVICE Final Result Performing Organization Address City/State/[facility] Co wi Phone Number [facility] Department [place] [address] * XR Chest 1 View (12/16/2024 7:20 [...] by: Elliott Davis M.D. us Alecia Acosta NP IMG XR [...] plan with the ICU team and other medical/internal audit consultant staff, making frequent assessments and decisions [...] documenting in the medical record Ignacio Brown [employer]ER [employer] HELPER IN CLINIC/BEDSIDE ORDERABL ES Final Result * (ABNORMAL) Potassium, whole blood (12/16/2024 5:10 PM CDT) Potassium, bld 5.3(H) 3.3 - 4.9 mmol/L Blood 12/16/2024 5:10 PM CDT 12/16/2024 5:21 PM CDT Angela Cox NP LAB BLOOD ORDERABLES Final Result [facility] Department [place] [address] * POCT glucose (12/16/2024 5:10 PM CDT) Glucose, POC 130 70 - 199 mg/dL Blood 12/16/2024 5:10 PM CDT 12/16/2024 5:10 PM CDT Indiana Mortensen MD LAB POCT ORDERABLES - DEVICE Final Result Performing Organization Address [facility] Co de Phone Number [facility] [place] [address] * (ABNORMAL) Blood gas, arterial (12/16/2024 5:10 PM CDT) [facility] pH, Art 7.27(L) 7.35 - 7.45 PCO2, Arterial 43 35 - 45 mmHg [facility] PO2, Arterial 159(H) 83 - 108 mmHg [facility] HCO3 Art (Calculated) 20 20 - 30 mmol/L [facility] BE, art -7 mmol/L [facility] Comment: Interpretive Data No Reference Range Established Current Interpretive Data was last revised on 2017 O2 Sat Art (Measured) 99(H) 90 - 95 % [facility] Blood 12/16/2024 5:10 PM CDT 12/16/2024 5:21 PM CDT Indiana Mortensen MD LAB BLOOD ORDERABLES Final Re sult Performing Organization Address [facility] Co de Phone Number [facility] Department [place] [address] * (ABNORMAL) Potassium, whole blood (12/16/2024 1:55 PM CDT) Potassium, bld 5.5(H) 3.3 - 4.9 mmol/L Blood 12/16/2024 1:55 PM CDT 12/16/2024 2:05 PM CDT us Sepideh Rees NP LAB BLOOD ORDERABLES Final Result [facility] Department [place] [address] * (ABNORMAL) POC Blood Gas and Chemistries, Arterial - (12/16/2024 1:17 PM CDT) pH, Art POC 7.25(L) 7.35 - 7.45 pCO2, Art POC 44 35 - 45 mmHg [facility] pO2, Art POC 147(H) 83 - 108 mmHg [facility] Na, POC 134(L) 135 - 145 mmol/L [facility] K POC 5.8(H) 3.3 - 4.9 mmol/L [facility] Comment: Interpretive Data Not all point of care methods assess for hemolysis. Confirm with instrument and retest K+ if not consistent with clinical signs and symptoms. Current Interpretive Data was last revised on 2023. Cl, POC 107 97 - 110 mmol/L [facility] Ionized Ca, POC 4.71 4.50 - 5.10 mg/dL [facility] Glucose, POC 131 70 - 199 mg/dL [facility] Lactate POC 1.3 0.7 - 2.0 mmol/L [facility] SO2 (chandra) arterial 99(H) 90 - 95 % [facility] Base excess, POC -7.5 mmol/L [facility] HCO3, Art POC 19(L) 20 - 30 mmol/L [facility] Hct, POC 28.0(L) 36.3 - 45.3 % [facility] Total Hb, POC 9.4(L) 11.9 - 15.5 g/dL [facility] Blood 12/16/2024 1:17 PM CDT 12/16/2024 1:17 PM CDT us Indiana Mortensen MD LAB POCT ORDERABLES - DEVICE Final Result [facility] Department [place] [address] * (ABNORMAL) POC Blood Gas and Chemistries, Arterial - (12/16/2024 12:33 PM CDT) pH, Art POC 7.24(L) 7.35 - 7.45 pCO2, Art POC 48(H) 35 - 45 mmHg [facility] pO2, Art POC 138(H) 83 - 108 mmHg [facility] Na, POC 135 135 - 145 mmol/L [facility] K POC 5.7(H) 3.3 - 4.9 mmol/L [facility] Comment: Interpretive Data Not all point of care methods assess for hemolysis. Confirm with instrument and retest K+ if not consistent with clinical signs and symptoms. Current Interpretive Data was last revised on 2023. Cl, POC 106 97 - 110 mmol/L [facility] Ionized Ca, POC 4.74 4.50 - 5.10 mg/dL [facility] Glucose, POC 134 70 - 199 mg/dL [facility] Lactate POC 1.2 0.7 - 2.0 mmol/L [facility] SO2 (chandra) arterial 100(H) 90 - 95 % [facility] Base excess, POC -6.6 mmol/L [facility] HCO3, Art POC 21 20 - 30 mmol/L [facility] Hct, POC 28.0(L) 36.3 - 45.3 % [facility] Total Hb, POC 9.2(L) 11.9 - 15.5 g/dL [facility] Blood 12/16/2024 12:3 3 PM CDT 12/16/2024 12:33 PM CDT us Indiana Mortensen MD LAB POCT ORDERABLES - DEVICE Final Result [facility] Department [place] [address] * XR Chest 1 View (12/16/2024 11:52 [...] signed by: Shala Eldridge M.D. Sepideh Rees [employer]ER [employer] HELPER IMG XR PROCEDURES Fi nal Result * [...] MD LAB BLOOD ORDERABLES Final Re sult [facility] Department [place] [address] * (ABNORMAL) CBC without differential (12/16/2024 11:21 AM CDT) WBC 35.53(H) 3.80 - 9.90 K/cumm Hgb 8.8(L) 11.9 - 15.5 g/dL [facility] Hct 26.1(L) 35.6 - 45.5 % [facility] Plt 371 150 - 400 K/cumm [facility] MPV 9.0(L) 9.1 - 12.3 fL [facility] RBC 2.93(L) 3.90 - 5.20 M/cumm [facility] MCV 89.1 81.3 - 96.4 fL [facility] MCH 30.0 27.1 - 33.3 pg [facility] MCHC 33.7 32.3 - 35.7 g/dL [facility] RDW CV 13.7 11.1 - 14.9 % [facility] RDW SD 43.8 35.7 - 48.1 fL [facility] NRBC abs 1.14(H) 0.00 - 0.01 K/cumm [facility] Blood 12/16/2024 11:2 1 AM CDT 12/16/2024 11:33 AM CDT Indiana Mortensen MD LAB BLOOD ORDERABLES Final Re sult Performing Organization Address [facility] Co de Phone Number [facility] [place] [address] * (ABNORMAL) Phosphorus (12/16/2024 11:21 AM CDT) Phosphorus, pl 6.9(H) 2.3 - 4.5 mg/dL Blood 12/16/2024 11:2 1 AM CDT 12/16/2024 11:32 AM CDT Indiana Mortensen MD LAB BLOOD ORDERABLES Final Re sult Performing Organization Address [facility] de Phone Number [facility] [place] [address] * (ABNORMAL) Magnesium (12/16/2024 11:21 AM CDT) Magnesium 2.7(H) 1.4 - 2.5 mg/dL Blood 12/16/2024 11:2 1 AM CDT 12/16/2024 11:32 AM CDT Indiana Mortensen MD LAB BLOOD ORDERABLES Final Re sult Performing Organization Address [facility] de Phone Number [facility] [place] [address] * (ABNORMAL) Basic metabolic panel (12/16/2024 11:21 AM CDT) Sodium 135 135 - 145 mmol/L Potassium, pl 5.5(H) 3.3 - 4.9 mmol/L [facility] Chloride 103 97 - 110 mmol/L [facility] CO2 21(L) 22 - 32 mmol/L [facility] Anion gap 11 2 - 15 mmol/L [facility] BUN 27(H) 6 - 25 mg/dL [facility] Creatinine 1.71(H) 0.60 - 1.10 mg/dL [facility] Comment:Reviewed Glucose 140 70 - 199 mg/dL [facility] Comment: Interpretive Data Fasting glucose >/= [...] 2022. Calcium 8.7 8.5 - 10.3 mg/dL [facility] Blood 12/16/2024 11:2 1 AM CDT 12/16/2024 11:32 AM CDT us [place] Mortensen MD LAB BLOOD ORDERABLES Final Re sult [facility] Department [place] [address] * (ABNORMAL) POC Blood Gas and Chemistries, Arterial - (12/16/2024 11:12 AM CDT) pH, Art POC 7.25(L) 7.35 - 7.45 pCO2, Art POC 45 35 - 45 mmHg [facility] pO2, Art POC 324(H) 83 - 108 mmHg [facility] Na, POC 135 135 - 145 mmol/L [facility] K POC 5.5(H) 3.3 - 4.9 mmol/L [facility] Comment: Interpretive Data Not all point of care methods assess for hemolysis. Confirm with instrument and retest K+ if not consistent with clinical signs and symptoms. Current Interpretive Data was last revised on 2023. Cl, POC 107 97 - 110 mmol/L [facility] Ionized Ca, POC 4.78 4.50 - 5.10 mg/dL [facility] Glucose, POC 132 70 - 199 mg/dL [facility] Lactate POC 1.2 0.7 - 2.0 mmol/L [facility] SO2 (chandra) arterial 100(H) 90 - 95 % [facility] Base excess, POC -7.2 mmol/L [facility] HCO3, Art POC 20 20 - 30 mmol/L [facility] Hct, POC 28.0(L) 36.3 - 45.3 % [facility] Total Hb, POC 9.3(L) 11.9 - 15.5 g/dL [facility] Blood 12/16/2024 11:1 2 AM CDT 12/16/2024 11:12 AM CDT us Indiana Mortensen MD LAB POCT ORDERABLES - DEVICE Final Result [facility] Department [place] [address] * Critical Care (12/16/2024 8:07 AM CDT) [...] plan with the ICU team and other medical/internal audit consultant staff, making frequent assessments and decisions [...] ORDERABLES Final Re sult Performing Organization Address [facility] de Phone Number [facility] Department [place] [address] * (ABNORMAL) Blood gas, arterial (12/16/2024 8:00 AM CDT) pH, Art 7.33(L) 7.35 - 7.45 PCO2, Arterial 39 35 - 45 mmHg [facility] PO2, Arterial 203(H) 83 - 108 mmHg [facility] HCO3 Art (Calculated) 21 20 - 30 mmol/L [facility] BE, art -5 mmol/L [facility] Comment: Interpretive Data No Reference Range Established Current Interpretive Data was last revised on 2017 O2 Sat Art (Measured) 99(H) 90 - 95 % [facility] Blood 12/16/2024 8:00 AM CDT 12/16/2024 8:19 AM CDT Indiana Mortensen MD LAB BLOOD ORDERABLES Final Re sult Performing Organization Address [facility]/State/ZIP Co de Phone Number [facility] Department [place] [address] * POCT glucose (12/16/2024 7:54 AM CDT) Pathologist [facility] Glucose, POC 131 70 - 199 mg/dL Blood 12/16/2024 7:54 AM CDT 12/16/2024 7:54 AM CDT Indiana Mortensen MD LAB POCT ORDERABLES - DEVICE Final Result [facility] Department [place] [address] * (ABNORMAL) POC Blood Gas and Chemistries, Arterial - (12/16/2024 5:59 AM CDT) [facility] pH, Art POC 7.33(L) 7.35 - 7.45 pCO2, Art POC 34(L) 35 - 45 mmHg [facility] pO2, Art POC 293(H) 83 - 108 mmHg [facility] Na, POC 136 135 - 145 mmol/L [facility] K POC 4.7 3.3 - 4.9 mmol/L [facility] Comment: Interpretive Data Not all point of care methods assess for hemolysis. Confirm with instrument and retest K+ if not consistent with clinical signs and symptoms. Current Interpretive Data was last revised on 2023. Cl, POC 109 97 - 110 mmol/L [facility] Ionized Ca, POC 4.65 4.50 - 5.10 mg/dL [facility] Glucose, POC 162 70 - 199 mg/dL [facility] Lactate POC 2.5(H) 0.7 - 2.0 mmol/L [facility] SO2 (chandra) arterial 100(H) 90 - 95 % [facility] Base excess, POC -7.3 mmol/L [facility] HCO3, Art POC 18(L) 20 - 30 mmol/L [facility] Hct, POC 27.0(L) 36.3 - 45.3 % [facility] Total Hb, POC 9.1(L) 11.9 - 15.5 g/dL [facility] Blood 12/16/2024 5:59 AM CDT 12/16/2024 5:59 AM CDT Indiana Mortensen MD LAB POCT ORDERABLES - DEVICE Final Result [facility] Department [place] [address] * (ABNORMAL) POC Blood Gas and Chemistries, Arterial - (12/16/2024 3:52 AM CDT) pH, Art POC 7.34(L) 7.35 - 7.45 pCO2, Art POC 27(L) 35 - 45 mmHg [facility] pO2, Art POC 168(H) 83 - 108 mmHg [facility] Na, POC 134(L) 135 - 145 mmol/L [facility] K POC 5.3(H) 3.3 - 4.9 mmol/L [facility] Comment: Interpretive Data Not all point of care methods assess for hemolysis. Confirm with instrument and retest K+ if not consistent with clinical signs and symptoms. Current Interpretive Data was last revised on 2023. Cl, POC 110 97 - 110 mmol/L [facility] Ionized Ca, POC 4.84 4.50 - 5.10 mg/dL [facility] Glucose, POC 238(H) 70 - 199 mg/dL [facility] Lactate POC 4.3(C) 0.7 - 2.0 mmol/L [facility] SO2 (chandra) arterial Incalculable 90 - 95 % [facility] Base excess, POC -9.6 mmol/L [facility] HCO3, Art POC 15(L) 20 - 30 mmol/L [facility] Hct, POC Incalculable 36.3 - 45.3 % [facility] Total Hb, POC Incalculable 11.9 - 15.5 g/dL [facility] Blood 12/16/2024 3:52 AM CDT 12/16/2024 3:52 AM CDT us Indiana Mortensen MD LAB POCT ORDERABLES - DEVICE Final Result Performing Organization Address [facility]/ZIP Co de Phone Number [facility] Department [place] [address] * ECG 12 lead (12/16/2024 2:45 AM CDT) Pathologist [facility] Ventricular Rate EKG/Min 37 BPM [facility] Atrial Rate 41 BPM [facility] QRS-Interval (MSEC) 102 ms [facility] QT-Interval (MSEC) 570 ms [facility] QTc 447 ms [facility] R [place] 183 degrees [facility] T [place] 121 degrees [facility] Diagnosis Poor data quality, interpretation may be adversely affected Suspect arm lead reversal, interpretation assumes no reversal with complete heart block Atrial paced rhythm Moderate voltage criteria for LVH, may be normal variant ( R in aVL , Sokolow-Elam ) Lateral infarct , new Inferior injury pattern Anterior injury pattern ACUTE [place] / STEMI Abnormal ECG When compared with ECG of 12-DEC-2024 11:50, Current undetermined rhythm precludes rhythm comparison, needs review Right bundle branch block is no longer Present Acute Lateral infarct is now Present Confirmed by KAMILA MCKAY M.D ([id number]) on 12/16/2024 11:16:23 AM [facility] 12/16/2024 2:45 AM CDT 12/16/2024 11:16 AM CDT us Kika Simpson DNP ECG ORDERABLES Final R esult Performing Organization Address [facility]/ZIP Co de Phone Number [facility] * (ABNORMAL) POC Blood Gas and Chemistries, Arterial - (12/16/2024 2:43 AM CDT) Pathologist [facility] pH, Art POC 7.33(L) 7.35 - 7.45 pCO2, Art POC 34(L) 35 - 45 mmHg [facility] pO2, Art POC 153(H) 83 - 108 mmHg [facility] Na, POC 136 135 - 145 mmol/L [facility] K POC 4.8 3.3 - 4.9 mmol/L [facility] Comment: Interpretive Data Not all point of care methods assess for hemolysis. Confirm with instrument and retest K+ if not consistent with clinical signs and symptoms. Current Interpretive Data was last revised on 2023. Cl, POC 106 97 - 110 mmol/L [facility] Ionized Ca, POC 5.02 4.50 - 5.10 mg/dL [facility] Glucose, POC 240(H) 70 - 199 mg/dL [facility] Lactate POC 3.3(H) 0.7 - 2.0 mmol/L [facility] SO2 (chandra) arterial 100(H) 90 - 95 % [facility] Base excess, POC -7.3 mmol/L [facility] HCO3, Art POC 18(L) 20 - 30 mmol/L [facility] Hct, POC 28.0(L) 36.3 - 45.3 % [facility] Total Hb, POC 9.3(L) 11.9 - 15.5 g/dL [facility] Blood 12/16/2024 2:43 AM CDT 12/16/2024 2:43 AM CDT us Indiana Mortensen MD LAB POCT ORDERABLES - DEVICE Final Result [facility] Department [place] [address] * Respiratory pathogen panel Tracheal aspirate (12/16/2024 1:45 AM CDT) Pathologist [facility] Influenza A RNA Not Detected Not Detected Influenza B RNA Not Detected Not Detected [facility] RSV RNA Not Detected Not Detected [facility] COVID-19 RNA Not Detected Not Detected [facility] Coronavirus 229E RNA Not Detected Not Detected [facility] Coronavirus HKU1 RNA Not Detected Not Detected [facility] Coronavirus NL63 RNA Not Detected Not Detected [facility] Coronavirus OC43 RNA Not Detected Not Detected [facility] Adenovirus DNA Not Detected Not Detected [facility] Metapneumovirus RNA Not Detected Not Detected [facility] Rhinovirus/Enterov irus RNA Not Detected Not Detected [facility] Parainfluenza 1 RNA Not Detected Not Detected [facility] Parainfluenza 2 RNA Not Detected Not Detected [facility] Parainfluenza 3 RNA Not Detected Not Detected [facility] Parainfluenza 4 RNA Not Detected Not Detected [facility] B. pertussis DNA Not Detected Not Detected [facility] B. parapertussis DNA Not Detected Not Detected [facility] C. pneumoniae DNA Not Detected Not Detected [facility] M. pneumoniae DNA Not Detected Not Detected [facility] Tracheal aspirate 12/16/2024 1:45 AM CDT 12/16/2024 8:16 AM CDT Narrative [facility] - 12/16/2024 9:13 AM CDT Is the Patient experiencing symptoms consistent with COVID?->Yes Surveillance testing for transplant patient?->No Interpretive Data [employer] FilmArray Respiratory Panel (RP2.1) assay is a [...] assay has FDA clearance for testing of [employer] swabs. The performance of additional specimen types has been assessed by the performing laboratory. The performance characteristics of this assay have been determined by [facility] Infectious Disease Laboratory. Current interpretive data was last revised on 22. Gia Erwin Carlock [employer] LAB MICROBIOLOGY - GENERAL ORD ERABLES Final Result [facility] Department [place] [address] * Blood culture Blood (12/16/2024 1:45 AM CDT) Report Final Report: No growth Blood 12/16/2024 1:45 AM CDT 12/16/2024 2:16 AM CDT Narrative [facility] - 12/20/2024 7:00 AM CDT [...] performance characteristics have been verified by the [facility] Microbiology [facility]. For questions about this culture, contact the Microbiology Laboratory at [phone]. Interpretive data was last revised on 24. Gia Mercedes LAB MICROBIOLOGY - GENERAL ORD ERABLES Final Result [facility] Department [place] [address] * Blood culture Blood (12/16/2024 1:45 AM [...] performance characteristics have been verified by the [facility] Microbiology [facility]. For questions about this culture, contact the Microbiology Laboratory at [phone]. Interpretive data was last revised on 24. Gia Erwin [facility] LAB MICROBIOLOGY - GENERAL ORD ERABLES Final Result Performing Organization Address City/[facility]/ZIP Co de Phone Number [facility] Department [place] [address] * eGFR (12/15/2024 10:37 PM CDT) eGFR [...] 12/15/2024 11:03 PM CDT us Angela Cox [employer] LAB BLOOD ORDERABLES Final Result Performing Organization Address City/[facility]/ZIP Co de Phone Number [facility] Department [place] [address] * (ABNORMAL) Calcium, ionized (12/15/2024 10:37 PM CDT) Calcium, Ionized 4.44(L) 4.50 - 5.10 mg/dL Blood 12/15/2024 10:3 7 PM CDT 12/15/2024 10:46 PM CDT Gia Mercedes [employer] LAB BLOOD ORDERABLES Final Res ult [facility] Department [place] [address] * (ABNORMAL) CBC without differential (12/15/2024 10:37 PM CDT) Pathologist [facility] WBC 28.29(H) 3.80 - 9.90 K/cumm Hgb 9.1(L) 11.9 - 15.5 g/dL [facility] Hct 26.9(L) 35.6 - 45.5 % [facility] Plt 443(H) 150 - 400 K/cumm [facility] MPV 8.9(L) 9.1 - 12.3 fL [facility] RBC 3.05(L) 3.90 - 5.20 M/cumm [facility] MCV 88.2 81.3 - 96.4 fL [facility] MCH 29.8 27.1 - 33.3 pg [facility] MCHC 33.8 32.3 - 35.7 g/dL [facility] RDW CV 14.1 11.1 - 14.9 % [facility] RDW SD 44.0 35.7 - 48.1 fL [facility] NRBC abs 0.37(H) 0.00 - 0.01 K/cumm [facility] Blood 12/15/2024 10:3 7 PM CDT 12/15/2024 10:54 PM CDT Angela Cox NP LAB BLOOD ORDERABLES Final Result [facility] Department [place] [address] * Phosphorus (12/15/2024 10:37 PM CDT) Pathologist [facility] Phosphorus, pl 4.5 2.3 - 4.5 mg/dL Blood 12/15/2024 10:3 7 PM CDT 12/15/2024 10:46 PM CDT Angela Cox [employer] LAB BLOOD ORDERABLES Final Result [facility] Department [place] [address] * Magnesium (12/15/2024 10:37 PM CDT) [facility] Magnesium 2.1 1.4 - 2.5 mg/dL Blood 12/15/2024 10:3 7 PM CDT 12/15/2024 10:46 PM CDT Gia Yaima Mercedes [employer] LAB BLOOD ORDERABLES Final Res ult Performing Organization Address City/[facility]/ZIP Co de Phone Number [facility] Department [place] [address] * Basic metabolic panel (12/15/2024 10:37 PM CDT) [facility] Sodium 136 135 - 145 mmol/L Potassium, pl 4.4 3.3 - 4.9 mmol/L [facility] Chloride 102 97 - 110 mmol/L [facility] CO2 23 22 - 32 mmol/L [facility] Anion gap 11 2 - 15 mmol/L [facility] BUN 21 6 - 25 mg/dL [facility] Creatinine 0.85 0.60 - 1.10 mg/dL [facility] Glucose 152 70 - 199 mg/dL [facility] Comment: Interpretive Data Fasting glucose >/= [...] 2022. Calcium 8.5 8.5 - 10.3 mg/dL [facility] Blood 12/15/2024 10:3 7 PM CDT 12/15/2024 10:46 PM CDT us Angela Cox [employer] LAB BLOOD ORDERABLES Final Result [facility] Department [place] [address] * (ABNORMAL) Urinalysis reflex to microscopic and culture Urine (12/15/2024 9:20 PM CDT) Color, ur Straw Yellow Clarity, ur Clear Clear [facility] Specific gravity, ur 1.018 1.003 - 1.030 [facility] pH, urine 5.5 [facility] Comment: Interpretive Data U rine pH is affected by diet, medications, systemic acid-base disturbances, and renal tubular function. pH may affect urinary stone formation. For example, urine pH below 6.0 may help reduce the tendency for calcium phosphate stones and pH greater than 6.0 may reduce the tendency for uric acid stone formation. Source: [facility] Current Interpretive Data was last revised on 2017 Protein, ur ql Negative Negative [facility] Glucose, ur ql Negative Negative [facility] Ketones, ur Negative Negative [facility] Bilirubin, ur Negative Negative [facility] Blood, ur Trace(A) Negative [facility] Urobilinogen, ur <2.0 <2.0 mg/dL [facility] Nitrite, ur Negative Negative [facility] Leukocyte esterase, ur Negative Negative [facility] UA reflex comment Reflex to microscopic UA will be performed. [facility] Urine 12/15/2024 9:20 PM CDT 12/15/2024 10:23 PM CDT Narrative [facility] - 12/15/2024 10:31 PM CDT Prior to cardiac device us Shala Oliva NP LAB MICROBIOLOGY - GENERAL O RDERABLES Final Result Performing Organization Address City/[facility]/ZIP Co de Phone Number [facility] Department [place] [address] * (ABNORMAL) Urinalysis, microscopic only (12/15/2024 9:20 PM CDT) WBC, ur 0-5 0 - 5 /HPF RBC, ur 0-2 0 - 2 /HPF [facility] Epithelial cells, squamous, ur 1-5 0 - 5 /HPF [facility] Mucous, ur Present(A) [facility] Culture Reflex Comment Reflex conditions for urine culture (WBC >10) not met. [facility] Urine 12/15/2024 9:20 PM CDT 12/15/2024 10:23 PM CDT us Shala Oliva NP LAB URINE ORDERABLES Final R esult [facility] Department [place] [address] * (ABNORMAL) POC Blood Gas and Chemistries, Arterial - (12/15/2024 9:06 PM CDT) pH, Art POC 7.38 7.35 - 7.45 pCO2, Art POC 39 35 - 45 mmHg [facility] pO2, Art POC 154(H) 83 - 108 mmHg [facility] Na, POC 138 135 - 145 mmol/L [facility] K POC 4.2 3.3 - 4.9 mmol/L [facility] Comment: Interpretive Data Not all point of care methods assess for hemolysis. Confirm with instrument and retest K+ if not consistent with clinical signs and symptoms. Current Interpretive Data was last revised on 2023. Cl, POC 107 97 - 110 mmol/L [facility] Ionized Ca, POC 4.62 4.50 - 5.10 mg/dL [facility] Glucose, POC 144 70 - 199 mg/dL [facility] Lactate POC 0.9 0.7 - 2.0 mmol/L [facility] SO2 (chandra) arterial 99(H) 90 - 95 % [facility] Base excess, POC -1.8 mmol/L [facility] HCO3, Art POC 23 20 - 30 mmol/L [facility] Hct, POC 28.0(L) 36.3 - 45.3 % [facility] Total Hb, POC 9.4(L) 11.9 - 15.5 g/dL [facility] Blood 12/15/2024 9:06 PM CDT 12/15/2024 9:06 PM CDT Indiana Mortensen MD LAB POCT ORDERABLES - DEVICE Final Result Performing Organization Address City/[facility] Co de Phone Number [facility] Department [place] [address] * POCT glucose (12/15/2024 8:46 PM CDT) Pathologist [facility] Glucose, POC 141 70 - 199 mg/dL Blood 12/15/2024 8:46 PM CDT 12/15/2024 8:46 PM CDT Result [facility] Indiana Mortensen MD LAB POCT ORDERABLES - DEVICE Final Result Performing Organization Address [facility] de Phone Number [facility] Department [place] [address] * (ABNORMAL) Troponin I high-sensitivity 6-hour (12/15/2024 7:45 PM CDT) Pathologist [facility] Trop I hs 4,224(C) <=17 ng/L Comment: Previous critical value noted within 48 hours ago. Interpretive Data For further hscTnI resources including the diagnostic algorithm and an aid in interpretation, copy and paste this link: [email or web address].testcatalog.org/[email or web address] Current Interpretive Data last revised 2020. Trop I hs pct delta -3 % [facility] Trop I hs interp Insignificant [facility] Blood 12/15/2024 7:45 PM CDT 12/15/2024 8:10 PM CDT Gema Bernabe NP LAB BLOOD ORDERABLES Final Re sult Performing Organization Address City/[facility]/ZIP Co de Phone Number [facility] Department [place] [address] * Type and screen (12/15/2024 7:45 PM CDT) Sarah, indirect Negative ABO Rh B Negative [facility] Blood 12/15/2024 7:45 PM CDT 12/15/2024 7:59 PM CDT Narrative [facility] - 12/15/2024 9:15 PM CDT Has the patient had Daratumumab or Isatuximab in the past 6 months?->Unknown us Indiana Mortensen MD LAB BLOOD BANK TEST ORDERABLE S Final Result Performing Organization Address [facility]/ZIP Co de Phone Number [facility] Department [place] [address] * Critical Care (12/15/2024 7:25 PM CDT) [...] plan with the ICU team and other medical/internal audit consultant staff, making frequent assessments and decisions [...] documenting in the medical record Gia Mercedes [employer] IN CLINIC/BEDSIDE ORDERABLES F inal Result * [...] signed by: Tracy Snider M.D. Gema Bernabe [employer] IMG XR PROCEDURES Final Resul t * [...] by: Felipe Souza MD, PHD Elizabeth Zaldivar [employer] IMG XR PROCEDURES Final R esult * (ABNORMAL) POC Blood Gas and Chemistries, Arterial - (12/15/2024 5:10 PM CDT) pH, Art POC 7.27(L) 7.35 - 7.45 pCO2, Art POC 49(H) 35 - 45 mmHg [facility] pO2, Art POC 239(H) 83 - 108 mmHg [facility] Na, POC 138 135 - 145 mmol/L [facility] K POC 3.8 3.3 - 4.9 mmol/L [facility] Comment: Interpretive Data Not all point of care methods assess for hemolysis. Confirm with instrument and retest K+ if not consistent with clinical signs and symptoms. Current Interpretive Data was last revised on 2023. Cl, POC 108 97 - 110 mmol/L [facility] Ionized Ca, POC 4.67 4.50 - 5.10 mg/dL [facility] Glucose, POC 152 70 - 199 mg/dL [facility] Lactate POC 1.1 0.7 - 2.0 mmol/L [facility] SO2 (chandra) arterial 100(H) 90 - 95 % [facility] Base excess, POC -4.4 mmol/L [facility] HCO3, Art POC 22 20 - 30 mmol/L [facility] Hct, POC 29.0(L) 36.3 - 45.3 % [facility] Total Hb, POC 9.5(L) 11.9 - 15.5 g/dL [facility] Blood 12/15/2024 5:10 PM CDT 12/15/2024 5:10 PM CDT Indiana Mortensen MD LAB POCT ORDERABLES - DEVICE Final Result Performing Organization Address [facility] Co de Phone Number [facility] [place] [address] * (ABNORMAL) Troponin I high-sensitivity 2-hour (12/15/2024 4:03 PM CDT) Trop I hs 4,610(C) <=17 ng/L Comment: Previous critical value noted within 48 hours ago. Interpretive Data For further [facility] resources including the diagnostic algorithm and an aid in interpretation, copy and paste this link: [email or web address] Current Interpretive Data last revised 2020. Trop I hs pct delta 5 % [facility] Trop I hs interp Equivocal [facility] Blood 12/15/2024 4:03 PM CDT 12/15/2024 4:09 PM CDT us Gema Bernabe FRYER LINE HELPER LAB BLOOD ORDERABLES Final Re sult Performing Organization Address City/[facility]/ZIP Co de Phone Number [facility] [place] [address] * POCT glucose (12/15/2024 4:01 PM CDT) [facility] Glucose, POC 115 70 - 199 mg/dL Blood 12/15/2024 4:01 PM CDT 12/15/2024 4:01 PM CDT Indiana Mortensen MD LAB POCT ORDERABLES - DEVICE Final Result Performing Organization Address [facility] Co de Phone Number [facility] Department [place] [address] * Infection Prevention Justice auris PCR, surveillance Axilla/Groin (12/15/2024 2:27 PM CDT) [facility] Justice auris DNA Not Detected Not Detected [facility] Comment: Interpretive Data Testing performed by [facility] using the Stacie shirin [employer] Justice auris assay. This assay detects DNA from Justice auris using Real-Time PCR. This assay is laboratory developed and is not cleared by the [facility] Food and Drug Administration. The performance characteristics have been verified by the [facility]. Axilla/Groin 12/15/2024 2:27 PM CDT 12/15/2024 3:06 PM CDT Narrative [facility] - 12/16/2024 12:10 AM CDT Order placed by [facility] due to ring surveillance. Instant Order Generic Provider LAB MICROBIOLOGY - GENERAL ORDERABLES Final Result Performing Organization Address [facility] Co de Phone Number ALEX [facility] [place] [address] [facility] * (ABNORMAL) Troponin I high-sensitivity series (baseline, 2hr, 4hr, 6hr) (12/15/2024 2:24 PM CDT) [facility] Trop I hs 4,370(C) <=17 ng/L Comment: Interpretive Data For further hscTnI resources including the diagnostic algorithm and an aid in interpretation, copy and paste this link: [email or web address] Current Interpretive Data last revised 2020. Blood 12/15/2024 2:24 PM CDT 12/15/2024 3:08 PM CDT Gema Bernabe FRYER LINE HELPER LAB BLOOD ORDERABLES Final Re sult Performing Organization Address [facility] Co de Phone Number ALEX [facility] [place] [address] * Critical result callback Cardio chemistry (12/15/2024 2:24 PM CDT) Date Notified [id number] Time Notified 1548 ALEX [facility] Test name Trop I hs base ALEX MCKEON Called/Read Back Kalie JOHNSON [facility] Credentials RN ALEX [facility] Called By TP ALEX [facility] Blood 12/15/2024 2:24 PM CDT 12/15/2024 3:08 PM CDT us Gema Bernabe NP LAB BLOOD ORDERABLES Final Re sult Performing Organization Address [facility] de Phone Number ALEX [facility] [place] [address] * Continuous Video EEG (12/15/2024 2:11 PM CDT) Anatomical Region Laterality Modality EEG Narrative 12/15/2024 2:11 PM CDT Video-EEG Report Patient Name: Adi Flowers [facility] Medical Record Number (MRN): [id number] [facility] Record: [id number] Date of (): 1960 Ordering Provider: Elo Lehman MD CC: Pacehco Mejia Start Time: 12/14/2024 12:47:40 PM End Time: 12/15/2024 10:18:43 AM Introduction: Ms. Flowers is a 64 y.o. female with a history of KOJO (PAP non-compliant), HTN, anxiety, hx of gastric bypass (2015), HLD, CAD, HFpEF, GERD, iron deficiency anemia, and chronic neck and back pain, s/p AVR and CABG x1 on 12/09/24, presenting with seizure-like activity. The EEG was performed to evaluate for seizures. This is a report of continuous video-EEG monitoring. High definition digital video and digital EEG were recorded continuously with a [employer] EEG acquisition system. This was a 32 [...] AM CDT Narrative 12/15/2024 12:50 PM CDT [facility] [place] [address] Transthoracic Echocardiographic Report Patient Name: ADI FLOWERS M : 1960 (64y 1m) Gender: F Study Date: 12/15/2024 11:10:49 AM Ht(Inch): 63 Wt(Lb): 298.94 BSA: 2.46 Sticker Hand: Andreia Loera [facility] Location: [id number] Order Provider: GIA MERCEDES Heart Rate: 115 [...] Procedure Note Guy Cooley MD - 12/15/2024 [facility] [place] [address] Transthoracic Echocardiographic Report Patient Name: ADI FLOWERS M : 1960 (64y 1m) Gender: F Study Date: 12/15/2024 11:10:49 AM Ht(Inch): 63 Wt(Lb): 298.94 BSA: 2.46 Sticker Hand: Andreia Loera [facility] Location: [id number] Order Provider:GIA MERCEDES Heart Rate: 115 BMI: [...] - DEVICE Final Result Performing Organization Address [facility] Co de Phone Number [facility] Department [place] [address] * POCT glucose (12/15/2024 8:33 AM CDT) Glucose, POC 152 70 - 199 mg/dL Blood 12/15/2024 8:33 AM CDT 12/15/2024 8:33 AM CDT Indiana Mortensen MD LAB POCT ORDERABLES - DEVICE Final Result Performing Organization Address [facility] de Phone Number [facility] Department [place] [address] * Critical Care (12/15/2024 7:16 AM CDT) [...] plan with the ICU team and other medical/internal audit consultant staff, making frequent assessments and decisions [...] in the medical record us Gema Bernabe FRYER LINE HELPER IN CLINIC/BEDSIDE ORDERABLES Final Result * POCT glucose (12/15/2024 4:05 AM CDT) Glucose, POC 166 70 - 199 mg/dL Blood 12/15/2024 4:05 AM CDT 12/15/2024 4:05 AM CDT Indiana Mortensen MD LAB POCT ORDERABLES - DEVICE Final Result Performing Organization Address City/State/[facility] Co de Phone Number [facility] Department [place] [address] * eGFR (12/15/2024 12:05 AM CDT) eGFR [...] Cox NP LAB BLOOD ORDERABLES Final Result [facility] [place] [address] * POCT glucose (12/15/2024 12:05 AM CDT) [facility] Glucose, POC 155 70 - 199 mg/dL Blood 12/15/2024 12:0 5 AM CDT 12/15/2024 12:05 AM CDT Indiana Mortensen MD LAB POCT ORDERABLES - DEVICE Final Result Performing Organization Address City/[facility] Co de Phone Number [facility] [place] [address] * (ABNORMAL) CBC without differential (12/15/2024 12:05 AM CDT) [facility] WBC 19.76(H) 3.80 - 9.90 K/cumm Hgb 8.4(L) 11.9 - 15.5 g/dL [facility] Hct 24.7(L) 35.6 - 45.5 % [facility] Plt 292 150 - 400 K/cumm [facility] MPV 9.2 9.1 - 12.3 fL [facility] RBC 2.79(L) 3.90 - 5.20 M/cumm [facility] MCV 88.5 81.3 - 96.4 fL [facility] MCH 30.1 27.1 - 33.3 pg [facility] MCHC 34.0 32.3 - 35.7 g/dL [facility] RDW CV 13.8 11.1 - 14.9 % [facility] RDW SD 44.5 35.7 - 48.1 fL [facility] NRBC abs 0.20(H) 0.00 - 0.01 K/cumm [facility] Blood 12/15/2024 12:0 5 AM CDT 12/15/2024 12:20 AM CDT Angela Cox FRYER LINE HELPER LAB BLOOD ORDERABLES Final Result Performing Organization Address City/[facility] Co de Phone Number [facility] [place] [address] * (ABNORMAL) Phosphorus (12/15/2024 12:05 AM CDT) Pathologist [facility] Phosphorus, pl 4.8(H) 2.3 - 4.5 mg/dL Blood 12/15/2024 12:0 5 AM CDT 12/15/2024 12:13 AM CDT Angela Cox FRYER LINE HELPER LAB BLOOD ORDERABLES Final Result Performing Organization Address [facility] Co de Phone Number [facility] [place] [address] * Magnesium (12/15/2024 12:05 AM CDT) [facility] Magnesium 2.0 1.4 - 2.5 mg/dL Blood 12/15/2024 12:0 5 AM CDT 12/15/2024 12:13 AM CDT Indiana Mortensen MD LAB BLOOD ORDERABLES Final Re sult Performing Organization Address [facility] Co de Phone Number [facility] [place] [address] * (ABNORMAL) Basic metabolic panel (12/15/2024 12:05 AM CDT) Pathologist [facility] Sodium 140 135 - 145 mmol/L Potassium, pl 3.9 3.3 - 4.9 mmol/L [facility] Chloride 104 97 - 110 mmol/L [facility] CO2 25 22 - 32 mmol/L [facility] Anion gap 11 2 - 15 mmol/L [facility] BUN 20 6 - 25 mg/dL [facility] Creatinine 0.72 0.60 - 1.10 mg/dL [facility] Glucose 138 70 - 199 mg/dL [facility] Comment: Interpretive Data Fasting glucose >/= [...] 2022. Calcium 8.3(L) 8.5 - 10.3 mg/dL [facility] Blood 12/15/2024 12:0 5 AM CDT 12/15/2024 12:13 AM CDT us Angela Cox NP LAB BLOOD ORDERABLES Final Result Performing Organization Address City/[facility]/ZIP Co de Phone Number [facility] Department [place] [address] * POCT glucose (12/14/2024 8:48 PM CDT) [facility] Glucose, POC 176 70 - 199 mg/dL Blood 12/14/2024 8:48 PM CDT 12/14/2024 8:48 PM CDT us Indiana Mortensen MD LAB POCT ORDERABLES - DEVICE Final Result [facility] Department [place] [address] * XR Chest 1 View (12/14/2024 7:24 [...] plan with the ICU team and other medical/internal audit consultant staff, making frequent assessments and decisions [...] NP LAB BLOOD ORDERABLES Brenda wharton Result [facility] Department [place] [address] * POCT glucose (12/14/2024 4:34 PM CDT) Pathologist [facility] Glucose, POC 168 70 - 199 mg/dL Blood 12/14/2024 4:34 PM CDT 12/14/2024 4:34 PM CDT Indiana Mortensen MD LAB POCT ORDERABLES - DEVICE Final Result [facility] Department [place] [address] * (ABNORMAL) Basic metabolic panel (12/14/2024 4:34 PM CDT) [facility] Sodium 141 135 - 145 mmol/L Potassium, pl 3.8 3.3 - 4.9 mmol/L [facility] Chloride 105 97 - 110 mmol/L [facility] CO2 23 22 - 32 mmol/L [facility] Anion gap 13 2 - 15 mmol/L [facility] BUN 22 6 - 25 mg/dL [facility] Creatinine 0.73 0.60 - 1.10 mg/dL [facility] Glucose 151 70 - 199 mg/dL [facility] Comment: Interpretive Data Fasting glucose >/= [...] 2022. Calcium 8.2(L) 8.5 - 10.3 mg/dL [facility] Blood 12/14/2024 4:34 PM CDT 12/14/2024 6:27 PM CDT Elizabeth Zaldivar NP LAB BLOOD ORDERABLES Brenda l [facility] [place] [address] * POCT glucose (12/14/2024 12:43 PM CDT) Glucose, POC 151 70 - 199 mg/dL Blood 12/14/2024 12:4 3 PM CDT 12/14/2024 12:43 PM CDT Indiana Mortensen MD LAB POCT ORDERABLES - DEVICE Final Result Performing Organization Address [facility] Co de Phone Number [facility] [place] [address] * eGFR (12/14/2024 7:40 AM CDT) eGFR [...] NP LAB BLOOD ORDERABLES Brenda l Result [facility] [place] [address] * Basic metabolic panel (12/14/2024 7:40 AM CDT) Sodium 143 135 - 145 mmol/L Potassium, pl 4.2 3.3 - 4.9 mmol/L [facility] Chloride 106 97 - 110 mmol/L [facility] CO2 25 22 - 32 mmol/L [facility] Anion gap 12 2 - 15 mmol/L [facility] BUN 25 6 - 25 mg/dL [facility] Creatinine 0.77 0.60 - 1.10 mg/dL [facility] Glucose 135 70 - 199 mg/dL [facility] Comment: Interpretive Data Fasting glucose >/= [...] 2022. Calcium 8.8 8.5 - 10.3 mg/dL [facility] Blood 12/14/2024 7:40 AM CDT 12/14/2024 8:04 AM CDT Elizabeth Zaldivar NP LAB BLOOD ORDERABLES Brenda l Result [facility] Department [place] [address] * POCT glucose (12/14/2024 7:36 AM CDT) Glucose, POC 138 70 - 199 mg/dL Blood 12/14/2024 7:36 AM CDT 12/14/2024 7:36 AM CDT Indiana Mortensen MD LAB POCT ORDERABLES - DEVICE Final Result [facility] [place] [address] * eGFR (12/14/2024 4:57 AM CDT) eGFR [...] 4:57 AM CDT 12/14/2024 5:10 AM CDT us Gia Mercedes FRYER LINE HELPER LAB BLOOD ORDERABLES Final Res ult [facility] [place] [address] * Lactate, whole blood (12/14/2024 4:57 AM CDT) Lactate, bld 1.2 0.7 - 2.0 mmol/L Blood 12/14/2024 4:57 AM CDT 12/14/2024 5:04 AM CDT Gia Mercedes FRYER LINE HELPER LAB BLOOD ORDERABLES Final Res ult Performing Organization Address [facility] Co de Phone Number [facility] [place] [address] * (ABNORMAL) Phosphorus (12/14/2024 4:57 AM CDT) Phosphorus, pl 4.8(H) 2.3 - 4.5 mg/dL Blood 12/14/2024 4:57 AM CDT 12/14/2024 5:10 AM CDT Gia Mercedes FRYER LINE HELPER LAB BLOOD ORDERABLES Final Res ult Performing Organization Address [facility] de Phone Number [facility] [place] [address] * Magnesium (12/14/2024 4:57 AM CDT) Magnesium 2.0 1.4 - 2.5 mg/dL Blood 12/14/2024 4:57 AM CDT 12/14/2024 5:10 AM CDT Gia Mercedes FRYER LINE HELPER LAB BLOOD ORDERABLES Final Res ult Performing Organization Address [facility] [place] [address] * (ABNORMAL) Blood gas, arterial (12/14/2024 4:57 AM CDT) pH, Art 7.46(H) 7.35 - 7.45 PCO2, Arterial 36 35 - 45 mmHg [facility] PO2, Arterial 184(H) 83 - 108 mmHg [facility] HCO3 Art (Calculated) 26 20 - 30 mmol/L [facility] BE, art 2 mmol/L [facility] Comment: Interpretive Data No Reference Range Established Current Interpretive Data was last revised on 2017 O2 Sat Art (Measured) 100(H) 90 - 95 % [facility] Blood 12/14/2024 4:57 AM CDT 12/14/2024 5:04 AM CDT Gia Mercedes FRYER LINE HELPER LAB BLOOD ORDERABLES Final Res ult Performing Organization Address City/[facility]/ZIP Co de Phone Number [facility] Department [place] [address] * (ABNORMAL) Basic metabolic panel (12/14/2024 4:57 AM CDT) Pathologist [facility] Sodium 141 135 - 145 mmol/L Potassium, pl 4.2 3.3 - 4.9 mmol/L [facility] Chloride 107 97 - 110 mmol/L [facility] CO2 26 22 - 32 mmol/L [facility] Anion gap 8 2 - 15 mmol/L [facility] BUN 24 6 - 25 mg/dL [facility] Creatinine 0.79 0.60 - 1.10 mg/dL [facility] Glucose 140 70 - 199 mg/dL [facility] Comment: Interpretive Data Fasting glucose >/= [...] 2022. Calcium 8.4(L) 8.5 - 10.3 mg/dL [facility] Blood 12/14/2024 4:57 AM CDT 12/14/2024 5:10 AM CDT Gia Mercedes FRYER LINE HELPER LAB BLOOD ORDERABLES Final Res ult Performing Organization Address City/[facility]/ZIP Co de Phone Number [facility] Department [place] [address] * POCT glucose (12/14/2024 4:55 AM CDT) Glucose, POC 156 70 - 199 mg/dL Blood 12/14/2024 4:55 AM CDT 12/14/2024 4:55 AM CDT us Indiana Mortensen MD LAB POCT ORDERABLES - DEVICE Final Result [facility] Department [place] [address] * (ABNORMAL) POC Blood Gas and Chemistries, Arterial - (12/14/2024 2:44 AM CDT) Pathologist [facility] pH, Art POC 7.44 7.35 - 7.45 pCO2, Art POC 34(L) 35 - 45 mmHg [facility] pO2, Art POC 135(H) 83 - 108 mmHg [facility] Na, POC 141 135 - 145 mmol/L [facility] K POC 3.9 3.3 - 4.9 mmol/L [facility] Comment: Interpretive Data Not all point of care methods assess for hemolysis. Confirm with instrument and retest K+ if not consistent with clinical signs and symptoms. Current Interpretive Data was last revised on 2023. Cl, POC 108 97 - 110 mmol/L [facility] Ionized Ca, POC 4.83 4.50 - 5.10 mg/dL [facility] Glucose, POC 162 70 - 199 mg/dL [facility] Lactate POC 2.2(H) 0.7 - 2.0 mmol/L [facility] SO2 (chandra) arterial 100(H) 90 - 95 % [facility] Base excess, POC -0.8 mmol/L [facility] HCO3, Art POC 23 20 - 30 mmol/L [facility] Hct, POC 25.0(L) 36.3 - 45.3 % [facility] Total Hb, POC 8.2(L) 11.9 - 15.5 g/dL [facility] Blood 12/14/2024 2:44 AM CDT 12/14/2024 2:44 AM CDT us Indiana Mortensen MD LAB POCT ORDERABLES - DEVICE Final Result [facility] Department [place] [address] * [place] INSJ NON-TUNNELED CENTRAL VENOUS CATH AGE 5 YR/> (12/14/2024 1:52 AM CDT) Narrative Esdras Quevedo MD - 12/14/2024 1:52 AM CDT Esdras Quevedo MD 12/19/2024 2:18 PM Central Line Insertion Date/Time: 12/14/2024 1:52 AM Performed by: Hieu Silver MD Authorized by: Hieu Silver MD [place] Protocol: Informed consent: Unable to obtain due [...] IN CLINIC/BEDSIDE ORDERA BLES Final Result * [place] INSJ NON-TUNNELED CENTRAL VENOUS CATH AGE 5 YR/> (12/14/2024 1:45 AM CDT) Narrative Esdras Quevedo MD - 12/14/2024 1:45 AM CDT Esdras Quevedo MD 12/19/2024 2:18 PM Central Line Insertion Date/Time: 12/14/2024 1:45 AM Performed by: Hieu Silver MD Authorized by: Hieu Silver MD [place] Protocol: Informed consent: Unable to obtain due [...] IN CLINIC/BEDSIDE ORDERA BLES Final Result * [place] ARTL CATHJ/CANNULJ MNTR/TRANSFUSION SPX PRQ (12/14/2024 1:44 AM CDT) Narrative Esdras Quevedo MD - 12/14/2024 1:44 AM CDT Esdras Quevedo MD 12/19/2024 2:18 PM Arterial Line Insertion Date/Time: 12/14/2024 1:44 AM Performed by: Hieu Silver MD Authorized by: Hieu Silver MD [place] Protocol: RN Notified of Procedure: yes Informed [...] AM: A feeding tube courses below the uwkcs-qp-blgv. A right internal jugular transvenous pacing wire [...] feeding tube remains present coursing below the pnadf-zm-pxzu. Aortic valve replacement remains present. Sternal plates [...] placed. A feeding tube courses below the nqlkn-nt-pmyv. An aortic valve replacement remains present. Sternal [...] AM: A feeding tube courses below the lirbg-jk-thsb. A right internal jugular transvenous pacing wire [...] feeding tube remains present coursing below the amlxs-ex-mzzr. Aortic valve replacement remains present. Sternal plates [...] placed. A feeding tube courses below the wekjj-wt-tjpb. An aortic valve replacement remains present. Sternal [...] AM: A feeding tube courses below the gishf-bg-kidz. A right internal jugular transvenous pacing wire [...] feeding tube remains present coursing below the mohzr-sh-nwnn. Aortic valve replacement remains present. Sternal plates [...] placed. A feeding tube courses below the ygxzr-mm-xrkq. An aortic valve replacement remains present. Sternal [...] AM: A feeding tube courses below the pxphf-vi-ezdw. A right internal jugular transvenous pacing wire [...] feeding tube remains present coursing below the bzuib-ir-kxti. Aortic valve replacement remains present. Sternal plates [...] placed. A feeding tube courses below the lhwbo-jf-vncw. An aortic valve replacement remains present. Sternal [...] AM: A feeding tube courses below the kljtv-zw-mpxd. A right internal jugular transvenous pacing wire [...] feeding tube remains present coursing below the jybdh-lo-ajht. Aortic valve replacement remains present. Sternal plates [...] placed. A feeding tube courses below the vggkn-ry-mkeh. An aortic valve replacement remains present. Sternal [...] AM: A feeding tube courses below the krppq-to-ojpq. A right internal jugular transvenous pacing wire [...] feeding tube remains present coursing below the caqqy-yb-fsrk. Aortic valve replacement remains present. Sternal plates [...] placed. A feeding tube courses below the jxmtv-ll-byum. An aortic valve replacement remains present. Sternal plates remain aligned. There are redemonstrated bibasilar airspace opacities which are not significantly changed and may represent atelectasis versus aspiration and/or pneumonia in the appropriate clinical context. A small left pleural effusion is present, slightly increased from prior. There is no pneumothorax. The cardiomediastinal silhouette is unchanged. Electronically signed by: Peter Spears M.D. Gia Mercedes FRYER LINE HELPER IMG XR PROCEDURES Final Result * (ABNORMAL) POC Blood Gas and Chemistries, Arterial - (12/13/2024 11:32 PM CDT) pH, Art POC 7.56(H) 7.35 - 7.45 pCO2, Art POC 23(L) 35 - 45 mmHg [facility] pO2, Art POC 138(H) 83 - 108 mmHg [facility] Na, POC 140 135 - 145 mmol/L [facility] K POC 4.0 3.3 - 4.9 mmol/L [facility] Comment: Interpretive Data Not all point of care methods assess for hemolysis. Confirm with instrument and retest K+ if not consistent with clinical signs and symptoms. Current Interpretive Data was last revised on 2023. Cl, POC 109 97 - 110 mmol/L [facility] Ionized Ca, POC 4.83 4.50 - 5.10 mg/dL [facility] Glucose, POC 192 70 - 199 mg/dL [facility] Lactate POC 2.3(H) 0.7 - 2.0 mmol/L [facility] SO2 (chandra) arterial 99(H) 90 - 95 % [facility] Base excess, POC -0.9 mmol/L [facility] HCO3, Art POC 21 20 - 30 mmol/L [facility] Hct, POC 26.0(L) 36.3 - 45.3 % [facility] Total Hb, POC 8.5(L) 11.9 - 15.5 g/dL [facility] Blood 12/13/2024 11:3 2 PM CDT 12/13/2024 11:32 PM CDT Indiana Mortensen MD LAB POCT ORDERABLES - DEVICE Final Result [facility] Department [place] [address] * Potassium, whole blood (12/13/2024 10:24 PM CDT) Potassium, bld 4.1 3.3 - 4.9 mmol/L Blood 12/13/2024 10:2 4 PM CDT 12/13/2024 10:32 PM CDT Gia Mercedes NP LAB BLOOD ORDERABLES Final Res ult Performing Organization Address [facility] [facility] Co de Phone Number [facility] [place] [address] * eGFR (12/13/2024 10:24 PM CDT) eGFR [...] CDT 12/13/2024 10:56 PM CDT Angela Cox FRYER LINE HELPER LAB BLOOD ORDERABLES Final Result Performing Organization Address City/[facility]/ZIP Co de Phone Number [facility] Department [place] [address] * Calcium, ionized (12/13/2024 10:24 PM CDT) [facility] Calcium, Ionized 4.50 4.50 - 5.10 mg/dL Blood 12/13/2024 10:2 4 PM CDT 12/13/2024 10:32 PM CDT Gia Mercedes FRYER LINE HELPER LAB BLOOD ORDERABLES Final Res ult Performing Organization Address City/[facility]/ZIP Co de Phone Number [facility] Department [place] [address] * (ABNORMAL) CBC without differential (12/13/2024 10:24 PM CDT) [facility] WBC 16.96(H) 3.80 - 9.90 K/cumm Hgb 7.8(L) 11.9 - 15.5 g/dL [facility] Hct 23.6(L) 35.6 - 45.5 % [facility] Plt 224 150 - 400 K/cumm [facility] MPV 9.0(L) 9.1 - 12.3 fL [facility] RBC 2.61(L) 3.90 - 5.20 M/cumm [facility] MCV 90.4 81.3 - 96.4 fL [facility] MCH 29.9 27.1 - 33.3 pg [facility] MCHC 33.1 32.3 - 35.7 g/dL [facility] RDW CV 14.0 11.1 - 14.9 % [facility] RDW SD 45.9 35.7 - 48.1 fL [facility] NRBC abs 0.12(H) 0.00 - 0.01 K/cumm [facility] Blood 12/13/2024 10:2 4 PM CDT 12/13/2024 10:37 PM CDT Angela Cox FRYER LINE HELPER LAB BLOOD ORDERABLES Final Result Performing Organization Address City/[facility]/ZIP Co de Phone Number [facility] Department [place] [address] * Phosphorus (12/13/2024 10:24 PM CDT) [facility] Phosphorus, pl 4.0 2.3 - 4.5 mg/dL Blood 12/13/2024 10:2 4 PM CDT 12/13/2024 10:32 PM CDT Angela Cox FRYER LINE HELPER LAB BLOOD ORDERABLES Final Result Performing Organization Address [facility] Co de Phone Number [facility] Department [place] [address] * Magnesium (12/13/2024 10:24 PM CDT) [facility] Magnesium 2.1 1.4 - 2.5 mg/dL Blood 12/13/2024 10:2 4 PM CDT 12/13/2024 10:32 PM CDT Indiana Mortensen MD LAB BLOOD ORDERABLES Final Re sult Performing Organization Address City/[facility] [place] [address] * (ABNORMAL) Basic metabolic panel (12/13/2024 10:24 PM CDT) Pathologist [facility] Sodium 143 135 - 145 mmol/L Potassium, pl 4.3 3.3 - 4.9 mmol/L [facility] Chloride 109 97 - 110 mmol/L [facility] CO2 25 22 - 32 mmol/L [facility] Anion gap 9 2 - 15 mmol/L [facility] BUN 24 6 - 25 mg/dL [facility] Creatinine 0.81 0.60 - 1.10 mg/dL [facility] Glucose 137 70 - 199 mg/dL [facility] Comment: Interpretive Data Fasting glucose >/= [...] 2022. Calcium 8.4(L) 8.5 - 10.3 mg/dL [facility] Blood 12/13/2024 10:2 4 PM CDT 12/13/2024 10:32 PM CDT us Angela Cox NP LAB BLOOD ORDERABLES Final Result [facility] Department [place] [address] * XR Chest 1 View (12/13/2024 8:06 PM CDT) Anatomical Region Laterality Modality Body, Chest N/A Computed Radiogr aphy 12/13/2024 10:2 6 PM CDT Impressions 12/13/2024 10:26 PM CDT 1. 12/13/2024 8:32 AM: A feeding tube courses below the lmivy-xj-jevj. Aortic valve replacement is present. Sternal plates are aligned. There has been removal of right internal jugular central venous catheter. The lung volumes remain small bilaterally with moderate bibasilar atelectasis and a small left pleural effusion. No pneumothorax is identified. The cardiomediastinal silhouette is unchanged. 2. 12/13/2024 5:36 PM: A feeding tube courses below the rvxlb-ub-wcpz. An aortic valve replacement is present. Sternal [...] AM: A feeding tube courses below the hsafx-yn-apmm. Aortic valve replacement is present. Sternal plates are aligned. There has been removal of right internal jugular central venous catheter. The lung volumes remain small bilaterally with moderate bibasilar atelectasis and a small left pleural effusion. No pneumothorax is identified. The cardiomediastinal silhouette is unchanged. 2. 12/13/2024 5:36 PM: A feeding tube courses below the hgyof-fy-bnsy. An aortic valve replacement is present. Sternal [...] - DEVICE Final Result [facility] Department [place] [address] * Critical Care (12/13/2024 6:17 PM CDT) [...] plan with the ICU team and other medical/internal audit consultant staff, making frequent assessments and decisions [...] AM: A feeding tube courses below the itflk-ke-eyvo. Aortic valve replacement is present. Sternal plates are aligned. There has been removal of right internal jugular central venous catheter. The lung volumes remain small bilaterally with moderate bibasilar atelectasis and a small left pleural effusion. No pneumothorax is identified. The cardiomediastinal silhouette is unchanged. 2. 12/13/2024 5:36 PM: A feeding tube courses below the yllnq-mb-fyzi. An aortic valve replacement is present. Sternal [...] AM: A feeding tube courses below the bryye-tr-espn. Aortic valve replacement is present. Sternal plates are aligned. There has been removal of right internal jugular central venous catheter. The lung volumes remain small bilaterally with moderate bibasilar atelectasis and a small left pleural effusion. No pneumothorax is identified. The cardiomediastinal silhouette is unchanged. 2. 12/13/2024 5:36 PM: A feeding tube courses below the gfuor-kr-okxr. An aortic valve replacement is present. Sternal plates are aligned. The lung volumes remain small with mild bibasilar atelectasis. There may be a trace left pleural effusion. No pneumothorax is identified. The cardiomediastinal silhouette is unchanged. 3. 12/13/2024 7:55 PM: There is no significant interval change. No pneumothorax is identified. Electronically signed by: Peter Spears M.D. us Indiana Mortensen MD IM XR PROCEDURES Final Resul t * eGFR (12/13/2024 2:54 PM CDT) Pathologist [facility] eGFR 90 >=60 mL/min/1. 73 m2 Comment: [...] NP LAB BLOOD ORDERABLES Brenda wharton Result [facility] Department [place] [address] * (ABNORMAL) Basic metabolic panel (12/13/2024 2:54 PM CDT) Pathologist [facility] Sodium 143 135 - 145 mmol/L Potassium, pl 4.1 3.3 - 4.9 mmol/L [facility] Chloride 107 97 - 110 mmol/L [facility] CO2 26 22 - 32 mmol/L [facility] Anion gap 10 2 - 15 mmol/L [facility] BUN 24 6 - 25 mg/dL [facility] Creatinine 0.75 0.60 - 1.10 mg/dL [facility] Glucose 187 70 - 199 mg/dL [facility] Comment: Interpretive Data Fasting glucose >/= [...] 2022. Calcium 8.2(L) 8.5 - 10.3 mg/dL [facility] Blood 12/13/2024 2:54 PM CDT 12/13/2024 3:04 PM CDT Elizabeth Zaldivar NP LAB BLOOD ORDERABLES Brenda l Result Performing Organization Address City/[facility]/ZIP Co de Phone Number [facility] Department [place] [address] * POCT glucose (12/13/2024 2:39 PM CDT) [facility] Signature Glucose, POC 176 70 - 199 mg/dL Blood 12/13/2024 2:39 PM CDT 12/13/2024 2:39 PM CDT Indiana Mortensen MD LAB POCT ORDERABLES - DEVICE Final Result Performing Organization Address City/[facility] Co de Phone Number [facility] [place] [address] * EEG (12/13/2024 2:04 PM CDT) Anatomical Region Laterality Modality EEG Narrative 12/14/2024 12:24 PM CDT Routine EEG Report Patient Name: Adi Flowers [facility] Medical Record Number (MRN): [id number] [facility] Record: [id number] Date of (): 1960 EEG Date: 12/13/2024 [...] 32 channel EEG recording acquired on a [employer] EEG-1200 acquisition system. Scalp electrodes were placed [...] NP NEUROLOGY ORDERABLES Brenda l Result * [employer] SUPER[employer] Evaluation and Treatment (12/13/2024 1:42 PM CDT) [...] to monitor aortic valve stenosis. 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 12/09: s/p [...] Aspiration Risk: No aspiration risk (170-200) Plan [employer] Frequency of Services during current admission: Discharge from this Service (for swallow) [employer] SUPER[employer]OR Recommendation (Add'l Services): Defer at this time Further Assessment/Follow up Indicated: Next Visit Plan:No further ST warranted for swallow Additional Referrals: none Please reference care plan for treatment goals, if indicated. Discharge Summary Statement If this is the last swallow therapy visit, this serves as the discharge summary. Alecia Acosta NP [employer] SUPERVISOR ORDERABLES Final Re sult * CT Head [...] LAB POCT ORDERABLES - DEVICE Final Result [facility] Department [place] [address] * eGFR (12/13/2024 10:20 AM CDT) eGFR [...] NP LAB BLOOD ORDERABLES Brenda l Result [facility] Department [place] [address] * (ABNORMAL) Basic metabolic panel (12/13/2024 10:20 AM CDT) [facility] Sodium 147(H) 135 - 145 mmol/L Potassium, pl 4.2 3.3 - 4.9 mmol/L [facility] Chloride 112(H) 97 - 110 mmol/L [facility] CO2 27 22 - 32 mmol/L [facility] Anion gap 8 2 - 15 mmol/L [facility] BUN 27(H) 6 - 25 mg/dL [facility] Creatinine 0.81 0.60 - 1.10 mg/dL [facility] Glucose 150 70 - 199 mg/dL [facility] Comment: Interpretive Data Fasting glucose >/= [...] 2022. Calcium 8.9 8.5 - 10.3 mg/dL [facility] Blood 12/13/2024 10:2 0 AM CDT 12/13/2024 10:33 AM CDT Elizabeth Zaldivar NP LAB BLOOD ORDERABLES Brenda l Result [facility] Department [place] [address] * POCT glucose (12/13/2024 8:34 AM CDT) Glucose, POC 147 70 - 199 mg/dL Blood 12/13/2024 8:34 AM CDT 12/13/2024 8:34 AM CDT us Indiana Mortensen MD LAB POCT ORDERABLES - DEVICE Final Result Performing Organization Address [facility] Co de Phone Number [facility] Department [place] [address] * XR Chest 1 View (12/13/2024 8:32 AM CDT) Anatomical Region Laterality Modality Body, Chest N/A Computed Radiogr aphy 12/13/2024 10:2 6 PM CDT Impressions 12/13/2024 10:26 PM CDT 1. 12/13/2024 8:32 AM: A feeding tube courses below the ypvgc-ku-rzvs. Aortic valve replacement is present. Sternal plates are aligned. There has been removal of right internal jugular central venous catheter. The lung volumes remain small bilaterally with moderate bibasilar atelectasis and a small left pleural effusion. No pneumothorax is identified. The cardiomediastinal silhouette is unchanged. 2. 12/13/2024 5:36 PM: A feeding tube courses below the ohvud-mb-tzfp. An aortic valve replacement is present. Sternal [...] AM: A feeding tube courses below the oecvn-qg-sbrp. Aortic valve replacement is present. Sternal plates are aligned. There has been removal of right internal jugular central venous catheter. The lung volumes remain small bilaterally with moderate bibasilar atelectasis and a small left pleural effusion. No pneumothorax is identified. The cardiomediastinal silhouette is unchanged. 2. 12/13/2024 5:36 PM: A feeding tube courses below the mdgsd-ko-wdii. An aortic valve replacement is present. Sternal [...] 12/13/2024 3:51 AM CDT us Angela Cox FRYER LINE HELPER LAB BLOOD ORDERABLES Final Result [facility] Department [place] [address] * POCT glucose (12/13/2024 3:27 AM CDT) Glucose, POC 145 70 - 199 mg/dL Blood 12/13/2024 3:27 AM CDT 12/13/2024 3:27 AM CDT us Indiana Mortensen MD LAB POCT ORDERABLES - DEVICE Final Result Performing Organization Address [facility] Co de Phone Number [facility] [place] Department [place] [address] * eGFR (12/12/2024 10:37 PM CDT) eGFR [...] BLOOD ORDERABLES Final Result Performing Organization Address [facility]/ZIP Co de Phone Number [facility] [place] [address] * (ABNORMAL) CBC without differential (12/12/2024 10:37 PM CDT) WBC 15.50(H) 3.80 - 9.90 K/cumm Hgb 7.6(L) 11.9 - 15.5 g/dL [facility] Hct 22.5(L) 35.6 - 45.5 % [facility] Plt 189 150 - 400 K/cumm [facility] MPV 9.1 9.1 - 12.3 fL [facility] RBC 2.49(L) 3.90 - 5.20 M/cumm [facility] MCV 90.4 81.3 - 96.4 fL [facility] MCH 30.5 27.1 - 33.3 pg [facility] MCHC 33.8 32.3 - 35.7 g/dL [facility] RDW CV 14.1 11.1 - 14.9 % [facility] RDW SD 46.1 35.7 - 48.1 fL [facility] NRBC abs 0.08(H) 0.00 - 0.01 K/cumm [facility] Blood 12/12/2024 10:3 7 PM CDT 12/12/2024 10:48 PM CDT Angela Cox FRYER LINE HELPER LAB BLOOD ORDERABLES Final Result Performing Organization Address City/[facility]/ZIP Co de Phone Number [facility] [place], [place] [id number] * Phosphorus (12/12/2024 10:37 PM CDT) Pathologist [facility] Phosphorus, pl 4.2 2.3 - 4.5 mg/dL Blood 12/12/2024 10:3 7 PM CDT 12/12/2024 10:48 PM CDT Angela Cox FRYER LINE HELPER LAB BLOOD ORDERABLES Final Result [facility] [place] [address] * (ABNORMAL) Basic metabolic panel (12/12/2024 10:37 PM CDT) Sodium 149(H) 135 - 145 mmol/L Potassium, pl 4.3 3.3 - 4.9 mmol/L [facility] Chloride 112(H) 97 - 110 mmol/L [facility] CO2 27 22 - 32 mmol/L [facility] Anion gap 10 2 - 15 mmol/L [facility] BUN 27(H) 6 - 25 mg/dL [facility] Creatinine 0.89 0.60 - 1.10 mg/dL [facility] Glucose 155 70 - 199 mg/dL [facility] Comment: Interpretive Data Fasting glucose >/= [...] 2022. Calcium 8.6 8.5 - 10.3 mg/dL [facility] Blood 12/12/2024 10:3 7 PM CDT 12/12/2024 10:48 PM CDT us Angela Cox FRYER LINE HELPER LAB BLOOD ORDERABLES Final Result Performing Organization Address City/[facility]/ZIP Co de Phone Number [facility] [place] [address] * POCT glucose (12/12/2024 10:36 PM CDT) [facility] Glucose, POC 157 70 - 199 mg/dL Blood 12/12/2024 10:3 6 PM CDT 12/12/2024 10:36 PM CDT us Indiana Mortensen MD LAB POCT ORDERABLES - DEVICE Final Result Performing Organization Address City/[facility]/ZIP Co de Phone Number [facility] Department [place] [address] * POCT glucose (12/12/2024 7:33 PM CDT) Glucose, POC 155 70 - 199 mg/dL Blood 12/12/2024 7:33 PM CDT 12/12/2024 7:33 PM CDT Indiana Mortensen MD LAB POCT ORDERABLES - DEVICE Final Result [facility] [place] [address] * Potassium, whole blood (12/12/2024 7:25 PM CDT) Pathologist [facility] Potassium, bld 4.2 3.3 - 4.9 mmol/L Blood 12/12/2024 7:25 PM CDT 12/12/2024 8:28 PM CDT Angela Cox NP LAB BLOOD ORDERABLES Final Result Performing Organization Address [facility] Co de Phone Number [facility] [place] [address] * Type and screen (12/12/2024 7:25 PM CDT) Pathologist [facility] Sarah, indirect Negative ABO Rh B Negative [facility] Blood 12/12/2024 7:25 PM CDT 12/12/2024 9:14 PM CDT Narrative [facility] - 12/12/2024 10:20 PM CDT Has the patient had Daratumumab or Isatuximab in the past 6 months?->Unknown Indiana Mortensen MD LAB BLOOD BANK TEST ORDERABLE S Final Result Performing Organization Address [facility] Co de Phone Number [facility] [place] [address] * Critical Care (12/12/2024 6:47 PM CDT) [...] plan with the ICU team and other medical/internal audit consultant staff, making frequent assessments and decisions [...] * POCT glucose (12/12/2024 3:50 PM CDT) Glucose, POC 151 70 - 199 mg/dL Blood 12/12/2024 3:50 PM CDT 12/12/2024 3:50 PM CDT us Indiana Mortensen MD LAB POCT ORDERABLES - DEVICE Final Result [facility] Department [place] [address] * (ABNORMAL) Protime-INR (12/12/2024 12:03 PM CDT) PT 14.4(H) 9.7 - 13.0 sec INR 1.33(H) 0.90 - 1.20 [facility] Comment: Interpretive data Oral anticoagulant therapeutic ranges: Venous thromboembolism prophylaxis or treatment: 2.0-3.0 CARDIOLOGY Standard range: 2.0-3.0 High-intensity range: 2.5-3.5 Refer to indication-specific guidelines for appropriate target ranges for prosthetic heart valve replacement. Current interpretive data was last revised on 2019. Blood 12/12/2024 12:0 3 PM CDT 12/12/2024 12:16 PM CDT Alecia Acosta FRYER LINE HELPER LAB BLOOD ORDERABLES Fin al Result Performing Organization Address City/[facility] Co de Phone Number [facility] Department [place] [address] * ECG 12 lead (12/12/2024 11:50 AM CDT) Pathologist [facility] Ventricular Rate EKG/Min 98 BPM [facility] Atrial Rate 98 BPM [facility] [place]-Interval (MSEC) 186 ms [facility] QRS-Interval (MSEC) 132 ms [facility] QT-Interval (MSEC) 362 ms [facility] QTc 462 ms [facility] P [place] 54 degrees [facility] R [place] -29 degrees [facility] T [place] 58 degrees [facility] Diagnosis Normal sinus rhythm Right bundle branch block Abnormal ECG Confirmed by Bety RODRIGUEZ, Counts Include [address] [facility] ([id number]) on 12/12/2024 10:15:15 PM [facility] 12/12/2024 11:5 0 AM CDT 12/12/2024 10:15 PM CDT Indiana Mortensen MD ECG ORDERABLES Final Result Performing Organization Address City/[facility] Co de Phone Number [facility] * POCT glucose (12/12/2024 11:04 AM CDT) Glucose, POC 159 70 - 199 mg/dL Blood 12/12/2024 11:0 4 AM CDT 12/12/2024 11:04 AM CDT us Indiana Mortensen MD LAB POCT ORDERABLES - DEVICE Final Result [facility] Department [place] [address] * XR Chest 1 View (12/12/2024 7:35 [...] by: Sharlene Claros M.D. us Angela Cox FRYER LINE HELPER IMG XR PROCEDURES Fi nal Result * POCT glucose (12/12/2024 7:32 AM CDT) Glucose, POC 161 70 - 199 mg/dL Blood 12/12/2024 7:32 AM CDT 12/12/2024 7:32 AM CDT us Indiana Mortensen MD LAB POCT ORDERABLES - DEVICE Final Result Performing Organization Address City/State/[facility] Co de Phone Number [facility] Department [place] [address] * Critical Care (12/12/2024 6:27 AM CDT) [...] plan with the ICU team and other medical/internal audit consultant staff, making frequent assessments and decisions [...] spent time documenting in the medical record Alecia Acosta FRYER LINE HELPER IN CLINIC/BEDSIDE ORDERA BLES Final Result * Potassium, whole blood (12/12/2024 5:23 AM CDT) Potassium, bld 4.2 3.3 - 4.9 mmol/L Blood 12/12/2024 5:23 AM CDT 12/12/2024 5:33 AM CDT Angela Cox NP LAB BLOOD ORDERABLES Final Result Performing Organization Address [facility] de Phone Number [facility] Department [place] [address] * POCT glucose (12/12/2024 3:16 AM CDT) Pathologist [facility] Glucose, POC 152 70 - 199 mg/dL Blood 12/12/2024 3:16 AM CDT 12/12/2024 3:16 AM CDT Indiana Mortensen MD LAB POCT ORDERABLES - DEVICE Final Result Performing Organization Address [facility] de Phone Number [facility] Department [place] [address] * Oxyhemoglobin, central venous (12/12/2024 12:09 AM CDT) Pathologist [facility] Oxyhemoglobin, CV 62.7 % Comment: Interpretive Data No reference range established. Current interpretive data was last revised 2019. Blood 12/12/2024 12:0 9 AM CDT 12/12/2024 12:17 AM CDT Angela Brownehannahmeiwesly Cox FRYER LINE HELPER LAB BLOOD ORDERABLES Final Result Performing Organization Address City/[facility]/ZIP Co de Phone Number [facility] [place] [address] * eGFR (12/12/2024 12:09 AM CDT) eGFR [...] AM CDT 12/12/2024 1:15 AM CDT Angela Brownehannahmichele Brooke FRYER LINE HELPER LAB BLOOD ORDERABLES Final Result [facility] Department [place] [address] * Calcium, ionized (12/12/2024 12:09 AM CDT) Calcium, Ionized 4.69 4.50 - 5.10 mg/dL Blood 12/12/2024 12:0 9 AM CDT 12/12/2024 12:31 AM CDT Gia Mercedes FRYER LINE HELPER LAB BLOOD ORDERABLES Final Res ult Performing Organization Address City/[facility] Co de Phone Number [facility] [place] [address] * (ABNORMAL) Protime-INR (12/12/2024 12:09 AM CDT) Pathologist [facility] PT 15.2(H) 9.7 - 13.0 sec INR 1.40(H) 0.90 - 1.20 [facility] Comment: Interpretive data Oral anticoagulant therapeutic ranges: Venous thromboembolism prophylaxis or treatment: 2.0-3.0 CARDIOLOGY Standard range: 2.0-3.0 High-intensity range: 2.5-3.5 Refer to indication-specific guidelines for appropriate target ranges for prosthetic heart valve replacement. Current interpretive data was last revised on 2019. Blood 12/12/2024 12:0 9 AM CDT 12/12/2024 12:30 AM CDT Angela Cox FRYER LINE HELPER LAB BLOOD ORDERABLES Final Result Performing Organization Address [facility] Co de Phone Number [facility] Department [place] [address] * (ABNORMAL) CBC without differential (12/12/2024 12:09 AM CDT) Pathologist [facility] WBC 17.51(H) 3.80 - 9.90 K/cumm Hgb 8.2(L) 11.9 - 15.5 g/dL [facility] Hct 23.9(L) 35.6 - 45.5 % [facility] Plt 169 150 - 400 K/cumm [facility] MPV 9.0(L) 9.1 - 12.3 fL [facility] RBC 2.64(L) 3.90 - 5.20 M/cumm [facility] MCV 90.5 81.3 - 96.4 fL [facility] MCH 31.1 27.1 - 33.3 pg [facility] MCHC 34.3 32.3 - 35.7 g/dL [facility] RDW CV 14.1 11.1 - 14.9 % [facility] RDW SD 46.1 35.7 - 48.1 fL [facility] NRBC abs 0.04(H) 0.00 - 0.01 K/cumm [facility] Blood 12/12/2024 12:0 9 AM CDT 12/12/2024 12:26 AM CDT Angela Cox FRYER LINE HELPER LAB BLOOD ORDERABLES Final Result Performing Organization Address City/[facility]/ZIP Co de Phone Number [facility] [place] [address] * Phosphorus (12/12/2024 12:09 AM CDT) Phosphorus, pl 2.6 2.3 - 4.5 mg/dL Blood 12/12/2024 12:0 9 AM CDT 12/12/2024 1:15 AM CDT Angela Cox FRYER LINE HELPER LAB BLOOD ORDERABLES Final Result Performing Organization Address City/[facility] Co de Phone Number [facility] [place] [address] * Magnesium (12/12/2024 12:09 AM CDT) Magnesium 2.2 1.4 - 2.5 mg/dL Blood 12/12/2024 12:0 9 AM CDT 12/12/2024 1:15 AM CDT Angela Cox FRYER LINE HELPER LAB BLOOD ORDERABLES Final Result [facility] [place] [address] * (ABNORMAL) Basic metabolic panel (12/12/2024 12:09 AM CDT) Sodium 146(H) 135 - 145 mmol/L Potassium, pl 3.8 3.3 - 4.9 mmol/L [facility] Chloride 110 97 - 110 mmol/L [facility] CO2 28 22 - 32 mmol/L [facility] Anion gap 8 2 - 15 mmol/L [facility] BUN 25 6 - 25 mg/dL [facility] Creatinine 0.91 0.60 - 1.10 mg/dL [facility] Glucose 173 70 - 199 mg/dL [facility] Comment: Interpretive Data Fasting glucose >/= [...] 2022. Calcium 8.6 8.5 - 10.3 mg/dL [facility] Blood 12/12/2024 12:0 9 AM CDT 12/12/2024 1:15 AM CDT us Angela Cox NP LAB BLOOD ORDERABLES Final Result [facility] Department [place] [address] * POCT glucose (12/11/2024 11:07 PM CDT) Glucose, POC 159 70 - 199 mg/dL Blood 12/11/2024 11:0 7 PM CDT 12/11/2024 11:07 PM CDT us Indiana Mortensen MD LAB POCT ORDERABLES - DEVICE Final Result Performing Organization Address [facility]/ZIP Co de Phone Number [facility] Department [place] [address] * POCT glucose (12/11/2024 8:01 PM CDT) Glucose, POC 140 70 - 199 mg/dL Blood 12/11/2024 8:01 PM CDT 12/11/2024 8:01 PM CDT us Indiana Mrotensen MD LAB POCT ORDERABLES - DEVICE Final Result [facility] Department [place] [address] * Critical Care (12/11/2024 7:08 PM CDT) [...] plan with the ICU team and other medical/internal audit consultant staff, making frequent assessments and decisions [...] - DEVICE Final Result Performing Organization Address City/[facility] Co de Phone Number [facility] [place] [address] * POCT glucose (12/11/2024 11:36 AM CDT) Glucose, POC 145 70 - 199 mg/dL Blood 12/11/2024 11:3 6 AM CDT 12/11/2024 11:36 AM CDT Indiana Mortensen MD LAB POCT ORDERABLES - DEVICE Final Result Performing Organization Address [facility] de Phone Number [facility] [place] [address] * Influenza A/B, RSV, and COVID-19 PCR Nasopharyngeal (12/11/2024 10:09 AM CDT) [facility] COVID-19 RNA Negative Negative [facility] Influenza A RNA Negative Negative [facility] Influenza B RNA Negative Negative [facility] RSV RNA Negative Negative [facility] Comment: Interpretive data: Testing performed by [facility] ([phone]). This test is performed using the [employer] Xpert Xpress CoV-2/Flu/RSV plus assay. This is a multiplex, real-time reverse transcriptase PCR assay intended for the qualitative detection of nucleic acid from SARS-CoV-2, influenza A, influenza B, and respiratory syncytial virus. This assay has been cleared by the [place] Food and Drug administration. The performance characteristics have been verified by the [facility]. Results must be considered in the clinical context, and a negative result does not rule out infection. Interpretive Data last revised 2023 Nasopharyngeal 12/11/2024 10 :09 AM CDT 12/11/2024 10:51 AM CDT Narrative [facility] - 12/11/2024 11:45 AM CDT Is the Patient experiencing symptoms consistent with COVID?->Yes us Chapito Rodriguez FRYER LINE HELPER LAB MICROBIOLOGY - GENERAL OR DERABLES Final Result [facility] Department [place] [address] [facility] * XR Chest 1 View [...] Felipe Souza MD, PHD us Angela Cox FRYER LINE HELPER IMG XR PROCEDURES Fi nal Result * POCT glucose (12/11/2024 7:58 AM CDT) Glucose, POC 137 70 - 199 mg/dL Blood 12/11/2024 7:58 AM CDT 12/11/2024 7:58 AM CDT us Indiana Mortensen MD LAB POCT ORDERABLES - DEVICE Final Result Performing Organization Address City/State/[facility] Co wi Phone Number [facility] Department [place] [address] * Critical Care (12/11/2024 6:53 AM CDT) Narrative Rhina Jacobsen MD - 12/11/2024 6:53 AM CDT Rhina Jacobsen MD 12/12/2024 1:49 PM Critical Care Performed by: Angela Cox NP Authorized by: Agnela Cox NP CRITICAL CARE: Team: 83 CTICU [...] plan with the ICU team and other medical/internal audit consultant staff, making frequent assessments and decisions [...] - DEVICE Final Result Performing Organization Address [facility]/ZIP Co de Phone Number [facility] [place] [address] * Infection Prevention Justice auris PCR, surveillance Axilla/Groin (12/11/2024 12:09 AM CDT) Justice auris DNA Not Detected Not Detected [facility] Comment: Interpretive Data Testing performed by [facility] Infectious Disease [facility] using the Stacie shirin 6800 Justice auris assay. This assay detects DNA from Justice auris using Real-Time PCR. This assay is laboratory developed and is not cleared by the [place] Food and Drug Administration. The performance characteristics have been verified by the [facility]. Axilla/Groin 12/11/2024 12:0 9 AM CDT 12/11/2024 12:42 AM CDT Narrative [facility] - 12/11/2024 12:14 PM CDT Order placed by [facility] due to ring surveillance. Instant Order Generic Provider LAB MICROBIOLOGY - GENERAL ORDERABLES Final Result Performing Organization Address [facility]/ZIP Co de Phone Number [facility] Department [place] [address] [facility] * eGFR (12/11/2024 12:01 AM [...] BLOOD ORDERABLES Final Result Performing Organization Address City/[facility]/ZIP Co de Phone Number [facility] Department [place] [address] * POCT glucose (12/11/2024 12:01 AM CDT) Glucose, POC 155 70 - 199 mg/dL Blood 12/11/2024 12:0 1 AM CDT 12/11/2024 12:01 AM CDT us Indiana Mortensen MD LAB POCT ORDERABLES - DEVICE Final Result [facility] Department [place] [address] * (ABNORMAL) Protime-INR (12/11/2024 12:01 AM CDT) Pathologist [facility] PT 14.5(H) 9.7 - 13.0 sec INR 1.33(H) 0.90 - 1.20 [facility] Comment: Interpretive data Oral anticoagulant therapeutic ranges: Venous thromboembolism prophylaxis or treatment: 2.0-3.0 CARDIOLOGY Standard range: 2.0-3.0 High-intensity range: 2.5-3.5 Refer to indication-specific guidelines for appropriate target ranges for prosthetic heart valve replacement. Current interpretive data was last revised on 2019. Blood 12/11/2024 12:0 1 AM CDT 12/11/2024 12:31 AM CDT us Angela Cox NP LAB BLOOD ORDERABLES Final Result [facility] Department [place] [address] * (ABNORMAL) CBC without differential (12/11/2024 12:01 AM CDT) Pathologist [facility] WBC 17.87(H) 3.80 - 9.90 K/cumm Hgb 8.8(L) 11.9 - 15.5 g/dL [facility] Hct 25.5(L) 35.6 - 45.5 % [facility] Plt 161 150 - 400 K/cumm [facility] MPV 8.9(L) 9.1 - 12.3 fL [facility] RBC 2.86(L) 3.90 - 5.20 M/cumm [facility] MCV 89.2 81.3 - 96.4 fL [facility] MCH 30.8 27.1 - 33.3 pg [facility] MCHC 34.5 32.3 - 35.7 g/dL [facility] RDW CV 14.1 11.1 - 14.9 % [facility] RDW SD 45.7 35.7 - 48.1 fL [facility] NRBC abs 0.00 0.00 - 0.01 K/cumm [facility] Blood 12/11/2024 12:0 1 AM CDT 12/11/2024 12:38 AM CDT Angela Cox FRYER LINE HELPER LAB BLOOD ORDERABLES Final Result Performing Organization Address [facility] Co de Phone Number [facility] [place] [address] * Phosphorus (12/11/2024 12:01 AM CDT) Pathologist [facility] Phosphorus, pl 2.9 2.3 - 4.5 mg/dL Blood 12/11/2024 12:0 1 AM CDT 12/11/2024 12:38 AM CDT Angela Cox FRYER LINE HELPER LAB BLOOD ORDERABLES Final Result Performing Organization Address [facility] de Phone Number [facility] [place] [address] * Magnesium (12/11/2024 12:01 AM CDT) [facility] Magnesium 2.3 1.4 - 2.5 mg/dL Blood 12/11/2024 12:0 1 AM CDT 12/11/2024 12:38 AM CDT Angela Cox FRYER LINE HELPER LAB BLOOD ORDERABLES Final Result Performing Organization Address [facility] [place] [address] * Basic metabolic panel (12/11/2024 12:01 AM CDT) Pathologist [facility] Sodium 141 135 - 145 mmol/L Potassium, pl 4.6 3.3 - 4.9 mmol/L [facility] Chloride 109 97 - 110 mmol/L [facility] CO2 25 22 - 32 mmol/L [facility] Anion gap 7 2 - 15 mmol/L [facility] BUN 21 6 - 25 mg/dL [facility] Creatinine 0.94 0.60 - 1.10 mg/dL [facility] Glucose 144 70 - 199 mg/dL [facility] Comment: Interpretive Data Fasting glucose >/= [...] 2022. Calcium 8.6 8.5 - 10.3 mg/dL [facility] Blood 12/11/2024 12:0 1 AM CDT 12/11/2024 12:38 AM CDT Angela Cox NP LAB BLOOD ORDERABLES Final Result [facility] [place] [address] from Last 3 Months Insurance [facility] Member Subscriber Plan / Payer (Ef fective 2022-Present) Name:Adi Flowers Relation to Subscriber:Self Name:Adi Flowers Payer ID:[id number] (NAIC) Type:MEDICARE RISK OTHER Address: [address] [facility] [address] [facility] [facility] Advance Directives For more information, please contact: [phone] Documents on File Type Date Recorded 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 ADVANCE DIRECTIVE 12/12/2024 11:13 AM HUONG Esposito OF [employer] * Full Code (Latest Code Status on File) Date Activated Date Inactivated Comments 12/09/2024 3:28 PM 01/02/2025 7:06 PM Care 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 Relationship Specialty Start Date End Date Pacheco Mejia DO [facility] [address] [place] [address] PCP - General Internal Medicine 01/22/23 Justin Herron DO [address] [facility] [address] [place] [address] Referring Physician Cardiology 10/14/24 Indiana Mortensen MD [address] [facility] [id number] [place] [address] Cardiothoracic Surgery 01/02/25 Unknown, Notinfile 01/02/25 Shelton Marcelo MD [address] [facility] [id number] [place] [address] Consulting Physician Physical Medicine and Rehabilitation 01/14/25
== END 2025-03-13 08:11 | disposition home or self-care (01) ==
LOC: ANHGOSHLAB 08:11
PROVIDERS: PCP Internal Medicine; Visit Provider Internal Medicine Endocrinology, Diabetes & Metabolism
DX: F41.1 Generalized anxiety disorder (principal); E66.9 Obesity, unspecified; R53.82 Chronic fatigue, unspecified; R73.01 Impaired fasting glucose; E55.9 Vitamin D deficiency, unspecified; G47.01 Insomnia due to medical condition; E34.9 Endocrine disorder, unspecified; Z13.220 Encounter for screening for lipoid disorders
CPT/HCPCS: 80299

== ENCOUNTER 2025-04-06 08:12 | Outpatient (CLI) | payer OTHER, MEDICAID, SELFPAY ==
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
--- OUTSIDE RECORDS SUMMARY | 2025-04-06 08:45 | XMS_ITS | Clinical Summary ---
Author Organization [facility] Address [address] [place] [address] Phone Care Team Providers Care Director Hospice Operations Name Role Phone Pacheco Mejia DO Primary Care Provider [phone] Justin Herron DO Unavailable [phone] Indiana Mortensen MD Unavailable [phone] Unknown, Notinfile Unavailable Unavailable Shelton Marcelo [...] Active Additional Information Patient not taking.Reported on 03/31/2025 polyethylene glycol (MIRALAX) 17 gram packetIndications :constipation Take 1 packet (17 g total) by mouth daily as needed for constipation 01/03/20 Active Additional Information Patient not taking.Reported on 03/31/2025 spironolactone (ALDACTONE) 50 mg tablet Take 1 [...] and placed a temp perm pacemaker - Bayamon scientific RV lead externalized perm pacemaker in [...] and placed a temp perm pacemaker - Bayamon scientific RV lead externalized perm pacemaker in [...] Encounters Date Type Department Care Team Description 04/01/2025 Telephone [facility] 8th [place] [address] [place] [address] Shola Cha MD 03/31/2025 3:30 PM CDT Office Visit [facility] Cardiology [address] [place] [address] 8th [place] [address] [place] [address] Shola Cha MD Bradycardia (Primary Dx) 03/31/2025 3:00 PM CDT Ancillary Procedure [facility] Cardiology [address] [place] [address] 8th [place] [address] [place] [address] Complete heart block (HCC) [I44.2] (Primary Dx); Fitting or adjustment of cardiac pacemaker 02/09/2025 1:15 PM CDT Office Visit [facility] Cardiothoracic [facility] 8th Floor [address] [place] [phone] Naz Gordillo NP S/P AVR (aortic valve replacement) (Primary Dx); S/P CABG (coronary artery bypass graft) 02/09/2025 12:17 PM CDT - 02/09/2025 11:59 PM CDT Hospital Encounter [facility] [address] [place] [address] Status post cardiac surgery Discharge Disposition: Discharge to home or self care 02/08/2025 Orders Only [facility] Cardiology [address] [facility] 8th [place] [address] [place] [address] Shola Cha MD 01/26/2025 Home Care Visit [address] [place] [address] Tiffany Santiago RN SN VIRTUAL OASIS DISCHARGE 01/26/2025 Home Care Visit [address] [place] [address] Jessica Carver RN SN TRIAGE ENCOUNTER 01/26/2025 Home Care Visit [address] [place] [address] Peter Hebert, PT TELEPHONE ENCOUNTER 01/22/2025 Home Care Visit [address] [place] [address] Tiffany Santiago RN TELEPHONE ENCOUNTER 01/22/2025 Telephone [facility] Cardiothoracic Surgery [address] [facility] 8th Floor [address] [place] [address] Brigitte Sanchez, ENGINEERING EXECUTIVE 01/21/2025 12:00 PM CDT Home Care Visit [address] [place] [address] Tiffany Santiago RN SN HOME VISIT 01/20/2025 3:00 PM CDT Home Care Visit [address] [place] [address] Peter Hebert, PT PT INITIAL EVALUATION 01/20/2025 11:30 AM CDT Home Care Visit [address] [place] [address] April Sr, OT OT INITIAL EVALUATION 01/18/2025 1:13 PM CDT - 01/18/2025 11:59 PM CDT Hospital Encounter [facility] [address] [place] [address] Discharge Disposition: Discharge to home or self care 01/18/2025 1:00 PM CDT Home Care Visit [address] [address] [address] [place] [address] Alana Kim, RN SN OASIS START OF CARE 01/18/2025 Plan of Care Documentation [address] [address] [address] [place] [address] 01/17/2025 Home Care Visit [address] [address] [address] [place] [address] Candelaria Silverio RN TELEPHONE ENCOUNTER 01/15/2025 Telephone [facility] Cardiology [address] [facility] 8th [place] [address] [place] [address] Shola Cha MD 01/14/2025 Telephone [facility] Home Care Services [address] [facility] [address] [place] [address] Alba Rodriguez, RN 01/14/2025 Telephone [facility] Home Care Services [address] [place] [address] Marian Crowell RN 01/14/2025 Travel 01/14/2025 Telephone [facility] Care Services [address] [facility] [address] [place] [address] Alba Rodriguez, RN 01/14/2025 Telephone [facility] [address] [facility] [address] [place] [address] Alba Rodriguez, RN 01/14/2025 Telephone [facility] Care [facility] [address] [facility] [address] [place] [address] Alba Rodriguez, RN 01/14/2025 Telephone [facility] Services [address] [place] [address] [address] [place] [address] Alba Rodriguez, RN 01/13/2025 Telephone [facility] [address] [place] [address] [address] [place] [address] Alba Rodriguez, RN 01/13/2025 Telephone [facility] [address] [place] [address] [address] [place] [address] Alba Rodriguez, RN 01/12/2025 Telephone [facility] [address] [place] [address] [address] [place] [address] Alba Rodriguez, RN 01/12/2025 Orders Only [facility] [phone] Unknown, Notinfile 01/12/2025 Telephone [facility] [address] [place] [address] [place] [address] Alba Rodriguez, RN 01/12/2025 Telephone [facility] [address] [place] [address] [address] [place] [address] Alba Rodriguez, RN 01/08/2025 Orders Only [facility] [phone] Unknown, Notinfile 01/08/2025 Telephone [facility] Cardiology [address] [facility] 8th [place] [address] [place] [address] Brigitte Sanchez, ENGINEERING EXECUTIVE 01/07/2025 1:10 PM CDT - 01/07/2025 11:59 PM CDT Hospital Encounter [facility] [address] [place] [address] S/P AVR (aortic valve replacement) Discharge Disposition: Discharge to home or self care 01/07/2025 8:30 AM CDT Ancillary Procedure [facility] Cardiology [address] [facility] [address] [place] [address] Complete heart block (HCC) [I44.2] (Primary Dx); Fitting or adjustment of cardiac pacemaker 01/05/2025 Orders Only [facility] [phone] Unknown, Notinfile from Last 3 Months Immunizations Immunization Administration [...] ELECTRODES (GEN AND LEADS, NEW OR REPLACE) [id number]; Surgeon: Shola Cha MD; Location: [facility]; Service: Cardiovascular; Laterality: N/A; Medical [...] materials from doctor or pharmacy Never 01/26/2025 [facility] Utilities Answer Date Recorded In the [...] often do you attend chur ch or zoroastrianism services? Never 12/22/2024 Do you belong to any clubs o r organizations such as protestant groups, unions, fraternal or athletic groups, or [...] in the past 12 m [facility], were you homeless or living in a correction (including now)? No 12/22/2024 Personal Safety Answer Date Recorded Have you ever been in or are you currently in a harmful physical or emotional relationship or is someone making you feel afraid or unsafe? 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 Gender Identity Female 01/25/2023 3:47 PM CDT Sexual Orientation Straight 11/20/2024 5: 09 PM CDT Occupation Industry Job Start Date Job End Date DISABLED Not on file Not on file Not on file Obstetrics History Last Filed Vital Signs Vital Sign Reading Time Taken Comments Blood Pressure 127/76 03/31/2025 4:07 PM CDT Pulse 76 03/31/2025 3:33 PM CDT Temperature 36.8 C (98.2 F) 01/21/2025 12:50 PM CDT Respiratory Rate 20 01/21/2025 12:5 0 PM CDT Oxygen Saturation 97% 03/31/2025 3:33 PM CDT Inhaled Oxygen Concentration - - Weight 126.8 kg (279 lb 9.6 oz) 03/31/2025 3:33 PM CDT Height 160 cm (5' 3) 03/31/2025 3:33 PM CDT Body Mass Index 49.53 03/31/2025 3:33 PM CDT Plan of Treatment Health Maintenance Due Date Last Done Comments Breast Cancer Screening-Mammogram 1962 Cervical Cancer Screening 1962 Colon Cancer Screening-Colonoscopy 1962 Depression Screening 1962 Hepatitis C Screening 1962 Hepatitis B Screening 1980 Regular Well Visit/Exam 18-64 1980 Zoster Vaccine (1 of 2) 2012 Covid-19 Vaccine (2024-2 6 season) 2025 07/10/2023, 07/10/2023, 05/13/2021, Additional history exists Influenza Vaccine (#1) 2025 DTaP/Tdap/Td Vaccine (2 - Td or Tdap) 01/23/2034 01/24/2024 Pneumococcal vaccine <65 Completed 01/24/2024, 04/16 Medical Devices Implanted Type Area Environmental Program Manager Device Identifier Shelf Expiration Date Model / Serial / Lot Bayamon Multispan Nikolai Lead [id number] Endocardial Pacing Mr Is-1 Bipolar Connection 7841-12/16/2024 Implanted:2024 (Quantity not on file) Lead Right: Ventricle 04/29/2026 / [id number] / Medtronic Inc Capsurefix Novus 6.2fr 2mm 52cm Bipolar Screw In Implantable Latex Free 5076-52 - [id number] - [id number] Implanted:Qty: 1 on 12/31/2024 by Shola Cha MD at [facility] Lead Right: Ventricle Medtronic Inc 10/09/2026 5076-52 / [id number] 12V / [id number] 12V Medtronic Inc Capsurefix Novus 6.2fr 2mm 45cm Bipolar Screw In Implantable 5076-45 - [id number] - [id number] Implanted:Qty: 1 on 12/31/2024 by Shola Cha MD at [facility] Lead Right: Atria Medtronic Inc 10/10/2026 5076-45 / [id number] 73V / [id number] 73V Medtronic Inc Tyrx Absorbable Antibacterial Envelope Med 2.7x2.5in [id number] - [id number] - [id number] Implanted:Qty: 1 on 12/31/2024 by Shola Cha MD at [facility] Other - see comments Right: Chest Wall Medtronic Inc 09/25/2025 [id number] 2 / [id number] / [id number] Description:Tyrex Medtronic Inc Qian S Mri Surescan 50.8x46.6mm 2 Chamber 7.4mm Pacemaker 22.5gm [id number] - [id number] - [id number] Implanted:Qty: 1 on 12/31/2024 by Shola Cha MD at [facility] Pacemaker Right: Chest Wall Medtronic Inc 04/28/2026 [id number] / [id number] 65G / [id number] 65G Prince Hive7 Nikolai Patch Cardiovascular 14x8cm Samantha-Guard [place] Processing [id number] - [id number] - [id number] Implanted:Qty: 1 on 12/09/2024 by Indiana Mortensen MD at [facility] Chest [facility] Nikolai [id number] 05/27/2026 [id number] / [id number] / [id number] Vilchis [employer] Inspiris Resilia Leaflet Sewing Ring 27mm Valve Aortic Bovine [id number] - [id number] - [id number] Implanted:Qty: 1 on 12/09/2024 by Indiana Mortensen MD at [facility] Heart [employer] [id number] 08/27/2029 [id number] / [id number] / Arthrex Inc Device Closure Fibertape Sternal Cerclage Blunt Needle Ar-7289 - [id number] Implanted:Qty: 1 on 12/09/2024 by Indiana Mortensen MD at [facility] N/A: Sternum Arthrex Inc 05/15/2029 AR-7289 / / [id number] Esme Biomet Inc Plate Bone Low Profile 6 Hole O Shape Sternum Ti 115.104.06 - [id number] Implanted:Qty: 1 on 12/09/2024 by Gordy Bourgeois MD at [facility] N/A: Sternum Esme [employer] Inc 115.104 .06 / / Esme [employer] Inc Plate Bone Low Profile 6 Hole H Shape Sternum Ti 115.102.06 - [id number] Implanted:Qty: 2 on 12/09/2024 by Indiana Mortensen MD at [facility] N/A: Sternum Esme [employer] Inc 115.102 .06 / / Esme [employer] Inc Screw Bone Slf Drl Full Thread Locking 3.5x16mm Ti 100.035.16 - [id number] Implanted:Qty: 8 on 12/09/2024 by Indiana Mortensen MD at [facility] N/A: Sternum [employer]me [employer] Inc 100.035 .16 / / Esme [employer] Inc Screw Bone Slf Drl Full Thread Locking 3.5x18mm Ti 100.035.18 - [id number] Implanted:Qty: 4 on 12/09/2024 by Gordy Bourgeois MD at [facility] N/A: Sternum Esme [employer] Inc 100.035 .18 / / Esme [employer] Inc Screw Bone Slf Drl Full Thread Locking 3.5x20mm Ti 100.035.20 - [id number] Implanted:Qty: 6 on 12/09/2024 by Gordy Bourgeois MD at [facility] N/A: Sternum Esme [employer] Inc 100.035 .20 / / Procedures Procedure Name Priority Date/Time Associated Diagnosis Comments XR CHEST PA LATERAL 2 VIEWS Schedule Routine, Read Routine (OP Routine) 02/09/2025 12:25 PM CDT Status post cardiac surgery DEVICE CHECK - REMOTE Routine 02/08/2025 6:24 AM CDT EGFR Routine 01/18/2025 1:13 PM CDT DIFFERENTIAL AUTO Routine 01/18/2025 1:1 3 PM CDT CBC WITH AUTO DIFFERENTIAL Routine [...] CDT DIFFERENTIAL AUTO Routine Gen Lab 01/12/2025 10: 04 AM CDT CBC WITH AUTO DIFFERENTIAL Routine Gen Lab 01/12/2025 10:04 AM CDT EGFR Routine Gen Lab 01/08/2025 12:20 PM CDT COMPREHENSIVE METABOLIC PANEL WITHOUT GLUCOSE (OUTREACH) Routine Gen Lab 01/08/2025 12:20 PM CDT CS GLUCOSE Routine Gen Lab 01/08/2025 12:20 PM CDT DIFFERENTIAL AUTO Routine Gen Lab 01/08/2025 12: 20 PM CDT CBC WITH AUTO DIFFERENTIAL Routine [...] CDT DIFFERENTIAL AUTO Routine Gen Lab 01/05/2025 10: 33 AM CDT CBC WITH AUTO DIFFERENTIAL Routine Gen Lab 01/05/2025 10:33 AM CDT from Last 3 Months Results [...] appropriate. No short V-V intervals. Presenting Rhythm (IN) Atrial Sensing-Ventricular Sensing (-VS) --- /VS (SR) [...] andappropriate. No short V-V intervals. Presenting Rhythm (IN) Atrial Sensing-Ventricular Sensing (-VS) --- /VS (SR) [...] BLOOD ORDERABLES Final Result Performing Organization Address City/[facility] Co de Phone Number [facility] [place] [address] * eGFR (01/18/2025 1:13 PM CDT) eGFR [...] BLOOD ORDERABLES Final Result Performing Organization Address City/[facility]/ZIP Co de Phone Number [facility] [place] [address] * (ABNORMAL) Differential, auto (01/18/2025 1:13 PM CDT) Neutrophil abs 6.51(H) 1.50 - 6.50 K/cumm Imm gran abs 0.04 0.00 - 0.10 K/cumm [facility] Lymphocyte abs 0.92 0.80 - 3.30 K/cumm [facility] Monocyte abs 0.48 0.20 - 0.80 K/cumm [facility] Eosinophil abs 0.33 0.00 - 0.50 K/cumm [facility] Basophil abs 0.08 0.00 - 0.10 K/cumm [facility] Neutrophil pct 77.9 % [facility] Comment: Interpretive Data Percent cell count reference ranges are not reported, since discordance with absolute values may lead to misinterpretation of CBC data. Current Interpretive Data was last revised on 2017. Imm gran pct 0.5 % [facility] Comment: Interpretive Data Percent cell count reference ranges are not reported, since discordance with absolute values may lead to misinterpretation of CBC data. Current Interpretive Data was last revised on 2017. Lymphocyte pct 11.0 % [facility] Comment: Interpretive Data Percent cell count reference ranges are not reported, since discordance with absolute values may lead to misinterpretation of CBC data. Current Interpretive Data was last revised on 2017. Monocyte pct 5.7 % [facility] Comment: Interpretive Data Percent cell count reference ranges are not reported, since discordance with absolute values may lead to misinterpretation of CBC data. Current Interpretive Data was last revised on 2017. Eosinophil pct 3.9 % [facility] Comment: Interpretive Data Percent cell count reference ranges are not reported, since discordance with absolute values may lead to misinterpretation of CBC data. Current Interpretive Data was last revised on 2017. Basophil pct 1.0 % [facility] Comment: Interpretive Data Percent cell count reference ranges are not reported, since discordance with absolute values may lead to misinterpretation of CBC data. Current Interpretive Data was last revised on 2017. Blood 01/18/2025 1:13 PM CDT 01/18/2025 2:54 PM CDT us Pacheco Mejia DO LAB BLOOD ORDERABLES Final Result [facility] Department [place] [address] * Basic metabolic panel without glucose (01/18/2025 1:13 PM CDT) [facility] Sodium 139 135 - 145 mmol/L Potassium, pl 4.6 3.3 - 4.9 mmol/L [facility] Chloride 105 97 - 110 mmol/L [facility] CO2 25 22 - 32 mmol/L [facility] Anion gap 9 2 - 15 mmol/L [facility] BUN 22 6 - 25 mg/dL [facility] Creatinine 0.89 0.60 - 1.10 mg/dL [facility] Calcium 9.3 8.5 - 10.3 mg/dL [facility] Blood 01/18/2025 1:13 PM CDT 01/18/2025 2:54 PM CDT Pacheco Mejia DO LAB BLOOD ORDERABLES Final Result [facility] Department [place] [address] * (ABNORMAL) CBC with auto differential (01/18/2025 1:13 PM CDT) [facility] WBC 8.36 3.80 - 9.90 K/cumm Hgb 11.2(L) 11.9 - 15.5 g/dL [facility] Hct 35.2(L) 35.6 - 45.5 % [facility] Plt 267 150 - 400 K/cumm [facility] MPV 9.0(L) 9.1 - 12.3 fL [facility] RBC 4.04 3.90 - 5.20 M/cumm [facility] MCV 87.1 81.3 - 96.4 fL [facility] MCH 27.7 27.1 - 33.3 pg [facility] MCHC 31.8(L) 32.3 - 35.7 g/dL [facility] RDW CV 15.8(H) 11.1 - 14.9 % [facility] RDW SD 50.8(H) 35.7 - 48.1 fL [facility] NRBC abs 0.00 0.00 - 0.01 K/cumm [facility] Blood 01/18/2025 1:13 PM CDT 01/18/2025 2:54 PM CDT Pacheco Mejia DO LAB BLOOD ORDERABLES Final Result Performing Organization Address [facility]/ZIP Co de Phone Number [facility] Department [place] [address] * (ABNORMAL) CS GLUCOSE (01/12/2025 10:04 AM CDT) Glucose 57(L) 70 - 199 mg/dL [facility] Comment: Interpretive Data Fasting glucose >/= [...] was last revised 2022. Testing performed by: [facility], [address] [facility], [place]., [address] Blood 01/12/2025 10:0 4 AM CDT 01/12/2025 1:57 PM CDT us Notinfile Unknown LAB BLOOD ORDERABLES Final Res ult Performing Organization Address [facility]/ZIP Co de Phone Number [facility] Department [place] [address] * (ABNORMAL) eGFR (01/12/2025 10:04 AM CDT) eGFR 53(L) >=60 mL/min/1. 73 m2 [facility] Comment: Interpretive Data Reference Interval Normal [...] was last reviewed 2021. Testing performed by: [facility], [address] [place] [address]., [address] Blood 01/12/2025 10:0 4 AM CDT 01/12/2025 2:11 PM CDT us Notinfile Unknown LAB BLOOD ORDERABLES Final Res ult ALEX [facility] Department [place] [address] * (ABNORMAL) Differential, auto (01/12/2025 10:04 AM CDT) Neutrophil abs 9.30(H) 1.50 - 6.50 K/cumm ALEX MCKEON Comment:Testing performed by : [facility], [address] [place]., [address] Imm gran abs 0.05 0.00 - 0.10 K/cumm ALEX MCKEON Comment:Testing performed by : [facility], [address] [place]., [address] Lymphocyte abs 1.08 0.80 - 3.30 K/cumm ALEX MCKEON Comment:Testing performed by : [facility], [address] [place]., [address] Monocyte abs 0.93(H) 0.20 - 0.80 K/cumm [facility] Comment:Testing performed by : [facility], [address] [place]., [address] Eosinophil abs 0.69(H) 0.00 - 0.50 K/cumm [facility] Comment:Testing performed by : [facility], [address] [place]., [address] Basophil abs 0.12(H) 0.00 - 0.10 K/cumm [facility] Comment:Testing performed by : [facility], [address] [place]., [address] Neutrophil pct 76.4 % [facility] Comment: Interpretive Data Percent cell count reference ranges are not reported, since discordance with absolute values may lead to misinterpretation of CBC data. Current Interpretive Data was last revised on 2017. Testing performed by: [facility], [address] [place]., [address] Imm gran pct 0.4 % [facility] Comment: Interpretive Data Percent cell count reference ranges are not reported, since discordance with absolute values may lead to misinterpretation of CBC data. Current Interpretive Data was last revised on 2017. Testing performed by: [facility], [address] [place] [address]., [address] Lymphocyte pct 8.9 % [facility] Comment: Interpretive Data Percent cell count reference ranges are not reported, since discordance with absolute values may lead to misinterpretation of CBC data. Current Interpretive Data was last revised on 2017. Testing performed by: [facility], [address] [place] [address]., [address] Monocyte pct 7.6 % [facility] Comment: Interpretive Data Percent cell count reference ranges are not reported, since discordance with absolute values may lead to misinterpretation of CBC data. Current Interpretive Data was last revised on 2017. Testing performed by: [facility], [address] [place]., [address] Eosinophil pct 5.7 % [facility] Comment: Interpretive Data Percent cell count reference ranges are not reported, since discordance with absolute values may lead to misinterpretation of CBC data. Current Interpretive Data was last revised on 2017. Testing performed by: [facility], [address] [place]., [address] Basophil pct 1.0 % [facility]LEX [facility] Comment: Interpretive Data Percent cell count reference ranges are not reported, since discordance with absolute values may lead to misinterpretation of CBC data. Current Interpretive Data was last revised on 2017. Testing performed by: [facility], [address] [place]., [address] Blood 01/12/2025 10:0 4 AM CDT 01/12/2025 1:57 PM CDT us Notinfile Unknown LAB BLOOD ORDERABLES Final Res ult [facility] Department [place] [address] * (ABNORMAL) Comprehensive metabolic panel, without glucose (Outreach) (01/12/2025 10:04 AM CDT) Sodium 142 135 - 145 mmol/L ALEX [facility] Comment:Testing performed by : [facility], [address] [place]., [address] Potassium, pl 4.3 3.3 - 4.9 mmol/L [facility]LEX [facility] Comment:Testing performed by : [facility], [address] [place]., [address] Chloride 102 97 - 110 mmol/L [facility]LEX [facility] Comment:Testing performed by : [facility], [address] [place]., [address] CO2 27 22 - 32 mmol/L ALEX [facility] Comment:Testing performed by : [facility], [address] [place]., [address] Anion gap 13 2 - 15 mmol/L [facility] Comment:Testing performed by : [facility], [address] [facility], [address] BUN 24 6 - 25 mg/dL [facility] Comment:Testing performed by : [facility], [address] [facility], [address] Creatinine 1.16(H) 0.60 - 1.10 mg/dL [facility] Comment:Testing performed by : [facility], [address] [place] [facility], [address] Calcium 10.1 8.5 - 10.3 mg/dL CERNER BJ Comment:Testing performed by : [facility], 1 [facility], [address] Protein, pl 7.3 6.5 - 8.5 g/dL CERNER BJ Comment:Testing performed by : [facility], 1 [facility], [address] Albumin 4.6 3.5 - 5.0 g/dL CERNER BJ Comment:Testing performed by : [facility], 1 [facility], [address] Bilirubin, total 0.5 0.1 - 1.2 mg/dL CERNER BJ Comment:Testing performed by : [facility], [address] [place] [address], [address] Alk phos 86 40 - 130 Units/L CERNER BJ Comment:Testing performed by : [facility], [address] [place] [address], [address] AST 28 10 - 45 Units/L CERNER BJ Comment:Testing performed by : [facility], 1 [facility], [address] ALT 25 7 - 45 Units/L CERNER BJ Comment:Testing performed by : [facility], [address] [place] [address], [address] Blood 01/12/2025 10:0 4 AM CDT 01/12/2025 1:57 PM CDT us Notinfile Unknown LAB BLOOD ORDERABLES Final Res ult [facility] Department [place] [address] * (ABNORMAL) CBC with auto differential (01/12/2025 10:04 AM CDT) WBC 12.17(H) 3.80 - 9.90 K/cumm [facility] Comment:Testing performed by : [facility], [address] [place] [address], [address] Hgb 11.7(L) 11.9 - 15.5 g/dL [facility] Comment:Testing performed by : [address], [address] Hct 38.1 35.6 - 45.5 % [facility] Comment:Testing performed by : [facility], 1 [facility], [address] Plt 345 150 - 400 K/cumm [facility] Comment:Testing performed by : [facility], [address] [place] [address], [address] MPV 9.0(L) 9.1 - 12.3 fL [facility] Comment:Testing performed by : [facility], 1 [facility], [address] RBC 4.29 3.90 - 5.20 M/cumm [facility] Comment:Testing performed by : [address], [address] MCV 88.8 81.3 - 96.4 fL [facility] Comment:Testing performed by : [address], [address] MCH 27.3 27.1 - 33.3 pg [facility] Comment:Testing performed by : [facility], [address] [place]., [address] MCHC 30.7(L) 32.3 - 35.7 g/dL [facility] Comment:Testing performed by : [facility], [address] [place]., [address] RDW CV 15.9(H) 11.1 - 14.9 % [facility] Comment:Testing performed by : [facility], [address] [place]., [address] RDW SD 51.7(H) 35.7 - 48.1 fL [facility] Comment:Testing performed by : [facility], [address] [place]., [address] NRBC abs 0.00 0.00 - 0.01 K/cumm [facility] Comment:Testing performed by : [facility], [address] [place]., [address] Blood 01/12/2025 10:0 4 AM CDT 01/12/2025 1:57 PM CDT us Notinfile Unknown LAB BLOOD ORDERABLES Final Res ult [facility] Department [place] [address] * (ABNORMAL) CS GLUCOSE (01/08/2025 12:20 PM CDT) [facility] Glucose 68(L) 70 - 199 mg/dL [facility] Comment: Interpretive Data Fasting glucose >/= 126 [...] was last revised 2022. Testing performed by: [facility], [address] [place]., [address] Blood 01/08/2025 12:2 0 PM CDT 01/08/2025 1:36 PM CDT us Notinfile Unknown LAB BLOOD ORDERABLES Final Res ult Performing Organization Address [facility] Co de Phone Number [facility] Department [place] [address] * (ABNORMAL) eGFR (01/08/2025 12:20 PM CDT) eGFR 59(L) >=60 mL/min/1. 73 m2 [facility] Comment: Interpretive Data Reference Interval Normal [...] was last reviewed 2021. Testing performed by: [facility], [address] [place]., [address] Blood 01/08/2025 12:2 0 PM CDT 01/08/2025 2:02 PM CDT us Notinfile Unknown LAB BLOOD ORDERABLES Final Res ult Performing Organization Address [facility]/State/ZIP Co de Phone Number [facility] Department [place] [address] * (ABNORMAL) Differential, auto (01/08/2025 12:20 PM CDT) Neutrophil abs 6.42 1.50 - 6.50 K/cumm CERNER BJ Comment:Testing performed by : [facility], [address] [place] [address]., [address] Imm gran abs 0.03 0.00 - 0.10 K/cumm CERNER BJ Comment:Testing performed by : [facility], [address] [place] [address]., [address] Lymphocyte abs 1.12 0.80 - 3.30 K/cumm CERNER BJ Comment:Testing performed by : [facility], [address] [place] [address]., [address] Monocyte abs 0.59 0.20 - 0.80 K/cumm CERNER BJ Comment:Testing performed by : [facility], [address] [place] [address]., [address] Eosinophil abs 0.60(H) 0.00 - 0.50 K/cumm CERNER BJ Comment:Testing performed by : [facility], [address] [place] [address]., [address] Basophil abs 0.09 0.00 - 0.10 K/cumm CERNER BJ Comment:Testing performed by : [facility], [address] [place] [address]., [address] Neutrophil pct 72.5 % CERNER BJ Comment: Interpretive Data Percent cell count reference ranges are not reported, since discordance with absolute values may lead to misinterpretation of CBC data. Current Interpretive Data was last revised on 2017. Testing performed by: [facility], [address] [place] [address]., [address] Imm gran pct 0.3 % CERNER BJ Comment: Interpretive Data Percent cell count reference ranges are not reported, since discordance with absolute values may lead to misinterpretation of CBC data. Current Interpretive Data was last revised on 2017. Testing performed by: [facility], [address] [place]., [address] Lymphocyte pct 12.7 % [facility] Comment: Interpretive Data Percent cell count reference ranges are not reported, since discordance with absolute values may lead to misinterpretation of CBC data. Current Interpretive Data was last revised on 2017. Testing performed by: [facility], [address] [place]., [address] Monocyte pct 6.7 % [facility] Comment: Interpretive Data Percent cell count reference ranges are not reported, since discordance with absolute values may lead to misinterpretation of CBC data. Current Interpretive Data was last revised on 2017. Testing performed by: [facility], [address] [place]., [address] Eosinophil pct 6.8 % [facility] Comment: Interpretive Data Percent cell count reference ranges are not reported, since discordance with absolute values may lead to misinterpretation of CBC data. Current Interpretive Data was last revised on 2017. Testing performed by: [facility], [address] [place]., [address] Basophil pct 1.0 % [facility] Comment: Interpretive Data Percent cell count reference ranges are not reported, since discordance with absolute values may lead to misinterpretation of CBC data. Current Interpretive Data was last revised on 2017. Testing performed by: [facility], [address] [place]., [address] Blood 01/08/2025 12:2 0 PM CDT 01/08/2025 1:36 PM CDT us Notinfile Unknown LAB BLOOD ORDERABLES Final Res ult [facility] Department [place] [address] * Comprehensive metabolic panel, without glucose (Outreach) (01/08/2025 12:20 PM CDT) Sodium 141 135 - 145 mmol/L [facility]ERNER [facility] Comment:Testing performed by : [facility], 1 [facility], [address] Potassium, pl 4.3 3.3 - 4.9 mmol/L CERNER [facility] Comment:Testing performed by : [facility], 1 [facility], [address] Chloride 102 97 - 110 mmol/L CERNER BJ Comment:Testing performed by : [facility], 1 [facility], [address] CO2 26 22 - 32 mmol/L CERNER [facility] Comment:Testing performed by : [facility], 1 [facility], [address] Anion gap 13 2 - 15 mmol/L CERNER [facility] Comment:Testing performed by : [facility], 1 [facility], [address] BUN 22 6 - 25 mg/dL CERNER [facility] Comment:Testing performed by : [facility], 1 [facility], [address] Creatinine 1.06 0.60 - 1.10 mg/dL CERNER [facility] Comment:Testing performed by : [facility], 1 [facility], [address] Calcium 9.6 8.5 - 10.3 mg/dL CERNER BJ Comment:Testing performed by : [facility], 1 [facility], [address] Protein, pl 6.5 6.5 - 8.5 g/dL CERNER [facility] Comment:Testing performed by : [facility], 1 [facility], [address] Albumin 4.0 3.5 - 5.0 g/dL CERNER BJ Comment:Testing performed by : [facility], 1 [facility], [address] Bilirubin, total 0.4 0.1 - 1.2 mg/dL [facility] Comment:Testing performed by : [facility], 1 [facility], [address] Alk phos 82 40 - 130 Units/L [facility] Comment:Testing performed by : [facility], 1 [facility], [address] AST 25 10 - 45 Units/L [facility] Comment:Testing performed by : [facility], 1 [facility], [address] ALT 34 7 - 45 Units/L [facility] Comment:Testing performed by : [facility], 1 [facility], [address] Blood 01/08/2025 12:2 0 PM CDT 01/08/2025 1:36 PM CDT us Notinfile Unknown LAB BLOOD ORDERABLES Final Res ult [facility] Department [place] [address] * (ABNORMAL) CBC with auto differential (01/08/2025 12:20 PM CDT) WBC 8.85 3.80 - 9.90 K/cumm [facility] Comment:Testing performed by : [facility], [address] [place]., [address] Hgb 9.3(L) 11.9 - 15.5 g/dL [facility] Comment:Testing performed by : [facility], [address] [place]., [address] Hct 30.7(L) 35.6 - 45.5 % [facility] Comment:Testing performed by : [facility], 1 [facility], [address] Plt 255 150 - 400 K/cumm [facility] Comment:Testing performed by : [facility], 1 [facility], [address] MPV 8.9(L) 9.1 - 12.3 fL CERNER BJ Comment:Testing performed by : [facility], 1 [facility], [address] RBC 3.44(L) 3.90 - 5.20 M/cumm CERNER BJ Comment:Testing performed by : [facility], 1 [facility], [address] MCV 89.2 81.3 - 96.4 fL CERNER BJ Comment:Testing performed by : [facility], 1 [facility], [address] MCH 27.0(L) 27.1 - 33.3 pg CERNER BJ Comment:Testing performed by : [facility], 1 [facility], [address] MCHC 30.3(L) 32.3 - 35.7 g/dL CERNER BJ Comment:Testing performed by : [facility], 1 [facility], [address] RDW CV 15.5(H) 11.1 - 14.9 % CERNER BJ Comment:Testing performed by : [facility], 1 [facility], [address] RDW SD 49.9(H) 35.7 - 48.1 fL CERNER BJ Comment:Testing performed by : [facility], 1 [facility], [address] NRBC abs 0.00 0.00 - 0.01 K/cumm CERNER BJ Comment:Testing performed by : [facility], 1 [facility], [address] Blood 01/08/2025 12:2 0 PM CDT 01/08/2025 1:36 PM CDT us Notinfile Unknown LAB BLOOD ORDERABLES Final Res ult [facility] Department [place] [address] * CTA Chest Abdomen Pelvis (01/07/2025 3:43 [...] it. Electronically signed by: Keely Pressley M.D. us Jessica AUGUSTIN IMG CT PROCEDURES Fi nal [...] yrs. Magnet rate 85 bpm Presenting Rhythm (IN) Atrial Sensing-Ventricular Sensing (-VS) --- Underlying rhythm: NSR 70s Arrhythmic events (AE) No new arrhythmic events in monitoring period Anticoagulation (AC) Patient prescribed Apixaban (Eliquis) Patient on anticoagulant therapy Procedure Note Chan Reece MD - 01/08/2025 Interpretation Summary: Battery and Leads (BL) Normal parameters noted on battery and lead(s) --- battery longevityestimate: 14.3 yrs. Magnet rate 85 bpm Presenting Rhythm (IN) Atrial Sensing-Ventricular Sensing (-VS) --- Underlying rhythm: [...] was last revised 2022. Testing performed by: [facility], [address] [place]., [address] Blood 01/05/2025 10:3 3 AM CDT 01/05/2025 2:29 PM CDT us Notinfile Unknown LAB BLOOD ORDERABLES Final Res ult [facility] Department [place] [address] * (ABNORMAL) eGFR (01/05/2025 10:33 AM CDT) eGFR 59(L) >=60 mL/min/1. 73 m2 [facility] Comment: Interpretive Data Reference Interval Normal [...] was last reviewed 2021. Testing performed by: [facility], [address] [place]., [address] Blood 01/05/2025 10:3 3 AM CDT 01/05/2025 2:46 PM CDT us Notinfile Unknown LAB BLOOD ORDERABLES Final Res ult [facility] Department [place] [address] * (ABNORMAL) Differential, auto (01/05/2025 10:33 AM CDT) Pathologist [facility] Neutrophil abs 4.51 1.50 - 6.50 K/cumm [facility] Comment:Testing performed by : [facility], [address] [place]., [address] Imm gran abs 0.03 0.00 - 0.10 K/cumm [facility] Comment:Testing performed by : [facility], [address] [place]., [address] Lymphocyte abs 1.13 0.80 - 3.30 K/cumm [facility] Comment:Testing performed by : [facility], [address] [place]., [address] Monocyte abs 0.60 0.20 - 0.80 K/cumm [facility] Comment:Testing performed by : [facility], [address] [place] [address] Eosinophil abs 0.53(H) 0.00 - 0.50 K/cumm [facility] Comment:Testing performed by : [facility], [address] [place] [address] Basophil abs 0.08 0.00 - 0.10 K/cumm CERNER BJ Comment:Testing performed by : [facility], [address] [place] [address] Neutrophil pct 65.6 % CERNER BJ Comment: Interpretive Data Percent cell count reference ranges are not reported, since discordance with absolute values may lead to misinterpretation of CBC data. Current Interpretive Data was last revised on 2017. Testing performed by: [facility], [address] [place] [address] Imm gran pct 0.4 % CERNER BJ Comment: Interpretive Data Percent cell count reference ranges are not reported, since discordance with absolute values may lead to misinterpretation of CBC data. Current Interpretive Data was last revised on 2017. Testing performed by: [facility], [address] [place]., [address] Lymphocyte pct 16.4 % C[facility]ER [facility] Comment: Interpretive Data Percent cell count reference ranges are not reported, since discordance with absolute values may lead to misinterpretation of CBC data. Current Interpretive Data was last revised on 2017. Testing performed by: [facility], [address] [place] [address] Monocyte pct 8.7 % [facility] Comment: Interpretive Data Percent cell count reference ranges are not reported, since discordance with absolute values may lead to misinterpretation of CBC data. Current Interpretive Data was last revised on 2017. Testing performed by: [facility], [address] [place] [address] Eosinophil pct 7.7 % [facility] Comment: Interpretive Data Percent cell count reference ranges are not reported, since discordance with absolute values may lead to misinterpretation of CBC data. Current Interpretive Data was last revised on 2017. Testing performed by: [facility], [address] [place] [address] Basophil pct 1.2 % [facility] Comment: Interpretive Data Percent cell count reference ranges are not reported, since discordance with absolute values may lead to misinterpretation of CBC data. Current Interpretive Data was last revised on 2017. Testing performed by: [facility], [address] [place]., [address] Blood 01/05/2025 10:3 3 AM CDT 01/05/2025 2:29 PM CDT us Notinfile Unknown LAB BLOOD ORDERABLES Final Res ult [facility] Department [place] [address] * (ABNORMAL) Comprehensive metabolic panel, without glucose (Outreach) (01/05/2025 10:33 AM CDT) Sodium 142 135 - 145 mmol/L [facility] Comment:Testing performed by : [facility], [address] [place]., [address] Potassium, pl 4.2 3.3 - 4.9 mmol/L [facility] Comment:Testing performed by : [facility], [address] [place] [address] Chloride 105 97 - 110 mmol/L [facility] Comment:Testing performed by : [facility], [address] [place]., [address] CO2 27 22 - 32 mmol/L ALEX [facility] Comment:Testing performed by : [facility], 1 [facility], [address] Anion gap 10 2 - 15 mmol/L CERNER BJ Comment:Testing performed by : [facility], 1 [facility], [address] BUN 19 6 - 25 mg/dL [facility] Comment:Testing performed by : [facility], 1 [facility], [address] Creatinine 1.07 0.60 - 1.10 mg/dL CERNER BJ Comment:Testing performed by : [facility], 1 [facility], [address] Calcium 9.4 8.5 - 10.3 mg/dL [facility] Comment:Testing performed by : [facility], 1 [facility], [address] Protein, pl 6.3(L) 6.5 - 8.5 g/dL CERNER [facility]J Comment:Testing performed by : [facility], 1 [facility], [address] Albumin 4.0 3.5 - 5.0 g/dL CERNER BJ Comment:Testing performed by : [facility], 1 [facility], [address] Bilirubin, total 0.5 0.1 - 1.2 mg/dL CERNER BJ Comment:Testing performed by : [facility], [address] [place] [address], [address] Alk phos 95 40 - 130 Units/L CERNER BJ Comment:Testing performed by : [facility], [address] [place] [address], [address] AST 29 10 - 45 Units/L CERNER BJ Comment:Testing performed by : [facility], 1 [facility], [address] ALT 50(H) 7 - 45 Units/L CERNER BJ Comment:Testing performed by : [facility], [address] [place] [address], [address] Blood 01/05/2025 10:3 3 AM CDT 01/05/2025 2:29 PM CDT us Notinfile Unknown LAB BLOOD ORDERABLES Final Res ult [facility] Department [place] [address] * (ABNORMAL) CBC with auto differential (01/05/2025 10:33 AM CDT) WBC 6.88 3.80 - 9.90 K/cumm [facility] Comment:Testing performed by : [facility], [address] [place] [address], [address] Hgb 8.8(L) 11.9 - 15.5 g/dL [facility] Comment:Testing performed by : [facility], [address] [place] [address], [address] Hct 28.6(L) 35.6 - 45.5 % [facility] Comment:Testing performed by : [facility], 1 [facility], [address] Plt 208 150 - 400 K/cumm [facility] Comment:Testing performed by : [facility], [address] [place] [address], [address] MPV 9.4 9.1 - 12.3 fL [facility] Comment:Testing performed by : [facility], [address] [place] [address], [address] RBC 3.22(L) 3.90 - 5.20 M/cumm [facility] Comment:Testing performed by : [address], [address] MCV 88.8 81.3 - 96.[address] [facility] Comment:Testing performed by : [address], [address] MCH 27.3 27.1 - 33.3 pg [facility] Comment:Testing performed by : [facility], 1 [facility], [address] MCHC 30.8(L) 32.3 - 35.7 g/dL [facility] Comment:Testing performed by : [facility], 1 [facility], [address] RDW CV 14.7 11.1 - 14.9 % [facility] Comment:Testing performed by : [facility], 1 [facility], [address] RDW SD 47.3 35.7 - 48.[address] [facility] Comment:Testing performed by : [facility], 1 [facility], [address] NRBC abs 0.00 0.00 - 0.01 K/cumm [facility] Comment:Testing performed by : [facility], 1 [facility], [address] Blood 01/05/2025 10:3 3 AM CDT 01/05/2025 2:29 PM CDT us Notinfile Unknown LAB BLOOD ORDERABLES Final Res ult Performing Organization Address City/[facility]/ZIP Co de Phone Number [facility] [place] [address] * Vitamin D 25 hydroxy (01/05/2025 10:33 AM CDT) Pathologist [facility] Vitamin D 25-OH 41 30 - 80 ng/mL [facility] Comment:Testing performed by : [facility], [address] [place] [address]., [address] Blood 01/05/2025 10:3 3 AM CDT 01/05/2025 2:29 PM CDT us Notinfile Unknown LAB BLOOD ORDERABLES Final Res ult [facility] [place] [address] from Last 3 Months Insurance [employer] [place] [address] Advance Directives For more information, please contact: [phone] Documents on File Type Date Recorded Patient Piece Hand Expl anation ADVANCE DIRECTIVE 12/12/2024 11:13 AM HUONG Esposito OF [employer] * Full Code (Latest Code Status on File) Date Activated Date Inactivated Comments 12/09/2024 3:28 PM 01/02/2025 7:06 PM Care Teams Director Hospice Operations Relationship Specialty Start Date End Date Pacheco Mejia DO [address] [facility] [address] [address] PCP - General Internal Medicine 01/22/23 Justin Herron DO [address] [place] [address] Referring Physician Cardiology 10/14/24 Indiana Mortensen MD [address] [facility] [id number] [place] [address] Cardiothoracic Surgery 01/02/25 Unknown, Notinfile 01/02/25 Shelton Marcelo MD [address] [id number] [place] [address] Consulting Physician Physical Medicine and Rehabilitation 01/14/25
--- OUTSIDE RECORDS SUMMARY | 2025-04-06 08:45 | XMS_ITS ---
Author Name Maximo Mckinney DO Address [address] [place] [address] Phone [phone] Organization [facility] Care Team Providers Care Trim Setter Name Role Phone Maximo Mckinney Unavailable [phone] Primarily Home Tier 2 RN (STL), Sigrid Stewart U navailable Unavailable Latisha Andrade Courtney Unavailable Unavail able Prim[facility] Home Tier 1 RN (STL), Sigrid Bermudez navailable Unavailable ELODIA FORTE Unavailable [phone] TIMOTHY CLIFFORD Unavailable [phone] Reason for Referral Not Available Allergies, adverse [...] tablet orally daily 11-16-13 No Data Available Gladstone-3 Fish Oil 1200 mg Cap 1 Capsule [...] Recommend diet and exercise if approved by Resp Therapist Dyspnea on exertion Active 2024-10-27 N/A Kolby [...] medical decision making, total time 30-44 minutes [id number] 2024-10-27 No Data Available No Data Availa [...] day supply 2024-10-27 Recommend to speak w [facility] PCP about physical therapy Health Concerns Date [...]
--- OUTSIDE RECORDS SUMMARY | 2025-04-06 08:45 | XMS_ITS | Clinical Summary ---
Author Organization [facility] Elaine Cunha Address [address] [place] [address] Care Team Providers Care Head Concierge Name Role Phone GlynnPacheco michelle Ravinder BILLS [...] bedtime. Active fluticasone propionate (FLONASE) 50 mcg/spray [place], Suspension nasal inhaler USE 2 SPRAY(S) IN [...] Comments Blood Pressure 129/70 05/30/2023 10:21 AM EMPLOYEE ADVISER Pulse 93 05/30/2023 10:21 AM EMPLOYEE ADVISER Temperature 35.7 C (96.2 F) 05/30/2023 10:21 AM EMPLOYEE ADVISER Respiratory Rate 12 05/30/2023 10:21 AM EMPLOYEE ADVISER Oxygen Saturation 96% 05/30/2023 10:21 AM EMPLOYEE ADVISER Inhaled Oxygen Concentration - - Weight 134.3 kg (296 lb) 05/30/2023 10:21 AM EMPLOYEE ADVISER Height 160 cm (5' 3) 05/30/2023 10:21 AM EMPLOYEE ADVISER Body Mass Index 52.43 05/30/2023 10:21 AM EMPLOYEE ADVISER Plan of Treatment Health Maintenance Due Date [...] (1 - 1-dose 75+ series) 2037 Insurance [facility] MEDICAID [place] Care Teams Head Concierge Relationship Specialty Start Date End Date Pacheco Mejia DO [address] [facility] [address] [place] [id number] PCP - General Internal Medicine 02/16/23
--- OUTSIDE RECORDS SUMMARY | 2025-04-06 08:45 | XMS_ITS | Encounter Summary ---
Author Organization [facility] Address [address] [place] [address] Phone Care Team Providers Care Distribution Driver Name Role Phone Pacheco Mejia DO Primary Care Provider [phone] Justin Herron DO Unavailable [phone] [place] Mortensen MD Unavailable [phone] Unknown, Notinfile Unavailable Unavailable Shelton Marcelo MD Unavailable Encounter Details Date Type Department Care Team (Late st Contact Info) Description 04/01/2025 Telephone [facility] Medicine Cardiology [address] [facility] Advanced Medicine 8th [place] [address] [place] [id number] Shola Cha MD [address] [facility] [address] [place] [address] Social History Tobacco Use Types Packs/Day Years Used Date Smoking Tobacco: Never Passive Smoke Exposure: Past Smokeless Tobacco: Never Passive Exposure Comments:as a child OASIS D0700: [...] materials from doctor or pharmacy Never 01/26/2025 [facility] Utilities Answer Date Recorded In the [...] often do you attend chur ch or buddhist services? Never 12/22/2024 Do you belong to any clubs o r organizations such as episcopal groups, unions, fraternal or athletic groups, or [...] any time in the past 12 m [facility], were you homeless or living in a [place] [facility] [place] facility (including now)? No 12/22/2024 Personal Safety Answer Date Recorded Have you ever been in or are you currently in a harmful physical or emotional relationship or is someone making you feel afraid or unsafe? Denies 12/09/2024 Comments No Sex and Gender Information Value Date Recorded Sex Assigned at Not on file Legal Sex Female 3:02 PM MEDICAL STAFF MANAGER Gender Identity Female 01/25/2023 3:47 PM CDT Sexual Orientation Straight 11/20/2024 5: 09 PM CDT Occupation Industry Job Start Date Job End Date DISABLED Not on file Not on file Not on file documented as of this encounter Miscellaneous Notes * Telephone Encounter - Marian Villeda RN - 04/01/2025 9:43 AM CDT I called patient to leave a message to see if she would like to transfer her device out. We saw heryesterday in clinic and there was no mention that she wanted to transfer out. I do see that a request to transfer to [facility] was made on [facility] but will need patients permission prior to releasingher device. Her message greeting said do not leave a message. I did not leave a message. I will send her a portal message. Will not release her in [facility] until she confirms. * Telephone Encounter - Codi Pepe - 04/01/2025 9:31 AM CDT Starla Hussein with Dr. Herron's office called to transfer device care/checks to their office. She can be reached at [phone] opt 2. documented in this encounter Plan of Treatment Not on file documented as of this encounter Visit Diagnoses Not on filedocumented in this encounter Care Teams Distribution Driver Relationship Specialty Start Date End Date Pacheco Mejia DO [address] [facility] [address] [place] [address] PCP - General Internal Medicine 01/22/23 Justin Herron DO [address] [facility] [address] [place] [address] Referring Physician Cardiology 10/14/24 Indiana Mortensen MD [id number] [place] [address] Cardiothoracic Surgery 01/02/25 Unknown, Notinfile 01/02/25 Shelton Marcelo MD [id number] [place] [address] Consulting Physician Physical Medicine and Rehabilitation 01/14/25 documented as of this encounter
== END 2025-04-06 08:13 | disposition home or self-care (01) ==
PROVIDERS: PCP Internal Medicine; Visit Provider Internal Medicine Endocrinology, Diabetes & Metabolism
DX: E24.9 Cushing's syndrome, unspecified (principal); E66.9 Obesity, unspecified
CPT/HCPCS: 36415; 80299; 82533

== ENCOUNTER 2025-04-06 09:08 | Emergency (ER) | payer OTHER, MEDICAID, SELFPAY ==
--- NOTE | ~2025-04-06 | XR_ITS ---
EXAMINATION: XR elbow LT min 3V, 04/06/2025 10:00 CDT HISTORY: fall pain COMPARISON: No comparisons available. Findings: No acute fracture or malalignment. Moderate degenerative changes Soft tissues unremarkable. Impression: No acute fracture or malalignment. Reviewed, dictated and finalized at location A. Impression: No acute fracture or malalignment.
--- NOTE | ~2025-04-06 | XR_ITS ---
X-rays right elbow Indication: None Comparison: Left elbow same day Technique: 4 views right elbow Findings/Impression: 1. No fracture or dislocation right elbow. Reviewed, dictated and finalized at location R.
--- NOTE | ~2025-04-06 | XR_ITS ---
EXAMINATION: XR hand LT min 3V, 04/06/2025 10:00 CDT HISTORY: pain and swelling fall last night COMPARISON: No comparisons available. Findings: There is a displaced fracture of the distal fifth metacarpal. No significant degenerative changes. Soft tissues unremarkable. Impression: Fifth metacarpal fracture Reviewed, dictated and finalized at location A. Impression: Fifth metacarpal fracture
[2025-04-06 09:19] VITALS: BP 135/67; PULSE 73; RESP 16; TEMP 36.3; O2SAT 98
--- NOTE | 2025-04-06 09:29 | ED.GENADULT ---
HPI - General Adult General Chief complaint: Extremity Injury, Upper Stated complaint: Fall -L hand broke, face, L knee, L and R elbow Time Seen by Provider: 04/06/25 09:31 Source: patient, RN notes reviewed and old records reviewed Mode of arrival: ambulatory Limitations: no limitations History of Present Illness HPI narrative: 64-year-old female presents to the [facility] with multiple complaints after a fall last night also reports that she had fallen on the , 3 days ago. Has a history of drop foot and frequent falls. Reports right-sided facial pain, right nose, right eyebrow pain, bruising, swelling. States it occurred last night. Reports left hand pain, bruising and swelling. Occurred last night reports bilateral elbow pain. No bruising noted on the right. Full range of motion noted, But reports generalized tenderness. Left elbow pain, tenderness, older bruising is noted. Full range of motion. Patient also reports left fallon bruising that she sustained on the , 3 days ago. Denies any headaches. Denies any blurry vision or change in vision. Patient is on Eliquis Patient reports that she has taken Advil and Tylenol Treatments prior to arrival: NSAID and other (Tylenol) Related Data Home Medications ?Medication ?Instructions ?Recorded ?Confirmed ?Last Taken ?Type Biotin Hyaluric Acid 10,000 mcg PO DAILY 05/21/23 04/06/25 09/30/24 History Iron 65 Mg W Vit C 270mg 65 mg PO DAILY 05/21/23 04/06/25 10/01/24 History lamotrigine 100 mg tablet 100 mg PO DAILY 02/23/24 04/06/25 10/01/24 History lorazepam 0.5 mg tablet 0.5 mg PO PRN PRN Anxiety 02/23/24 04/06/25 09/29/24 History calcium 315 mg (as 1 tablet PO DAILY 03/06/24 04/06/25 09/29/24 History citrate)-vitamin D3 5 mcg (200 unit) tablet (Calcium Citrate + D) acetaminophen 500 mg tablet 500 mg PO .PRN PRN pain 09/18/24 04/06/25 10/06/24 History xlkmepkn-czsdfjfd-tnzs 45 mg-folic 1 cap PO DAILY 09/18/24 04/06/25 10/01/24 History acid 800 mcg-vit K 120 mcg capsule (Bariatric Multivitamins) vitamin c 1000mg + Calc carbnt 52mg See Rx Instructions BYMOUTH 09/18/24 04/06/25 10/01/24 History .COMPLEX methocarbamol 750 mg tablet 750 mg PO .COMPLEX PRN spasms 10/17/24 04/06/25 Unknown History aspirin 81 mg tablet,delayed 81 mg PO DAILY 02/03/25 04/06/25 Unknown History release (Adult Low Dose Aspirin) carboxymethylcellulose sodium 0.5 1 drp EACH EYE DAILY PRN dry eye(s) 02/03/25 04/06/25 Unknown History % eye drops in a dropperette (Refresh Plus) cyanocobalamin (vitamin B-12) 500 1,000 mcg PO DAILY 02/03/25 04/06/25 Unknown History mcg tablet furosemide 20 mg tablet (Lasix) 20 mg PO QAM 02/03/25 04/06/25 Unknown History loratadine 10 mg tablet (Claritin) 10 mg PO DAILY 02/03/25 04/06/25 Unknown History hydroxyzine HCl 10 mg tablet 10 mg PO TID PRN sleep 02/09/25 04/06/25 Unknown History hydroxyzine HCl 50 mg tablet 50 mg PO QHS 02/09/25 04/06/25 Unknown History cetirizine 10 mg tablet 10 mg PO DAILY PRN allergy symptoms 02/26/25 04/06/25 Unknown History docusate sodium 100 mg capsule 100 mg PO HS 02/26/25 04/06/25 Unknown History (Colace) sacubitril 24 mg-valsartan 26 mg 1 tablet PO DAILY 02/26/25 04/06/25 Unknown History tablet (Entresto) Allergies Allergy/AdvReac Type Severity Reaction Status Date / Time Penicillins Allergy Intermediate Hives Verified 04/06/25 09:23 tetracycline Allergy Unknown Unknown Verified 04/06/25 09:23 amoxicillin (From Augmentin) Allergy Hives Verified 04/06/25 09:23 clavulanic acid (From Allergy Hives Verified 04/06/25 09:23 Augmentin) Review of Systems Review of Systems: All systems reviewed & are unremarkable except as noted in HPI and below Constitutional: Constitutional: Reports no additional constitutional complaints ENT: Reports system reviewed and no additional complaints, except as documented Cardiovascular: Cardiovascular: Reports no additional cardiovascular complaints, Denies chest pain and Denies dyspnea Respiratory: Respiratory: Reports no additional respiratory complaints and Denies dyspnea Musculoskeletal: Musculoskeletal: Reports as per HPI, Reports arthralgias and Reports joint swelling Integumentary/Breasts: Skin/Breast: Reports as per HPI and Reports other (Bruising) [facility] Past Medical History Medical History Wrist fracture Chronic anticoagulation Encounter to establish care Hospital discharge follow-up Achilles tendinitis of left lower extremity Morbid obesity due to excess calories Tear of biceps muscle Obesity Peripheral neuropathy Restless leg syndrome Lumbosacral spondylosis Dorsalgia Low TSH level Thyrotoxicosis, unspecified with thyrotoxic crisis or storm Chronic post-traumatic stress disorder (PTSD) Hyperlipidemia Essential hypertension Depression Obstructive sleep apnea of adult Osteoarthritis Moderate aortic stenosis Anemia Cervical radiculopathy Vitamin D deficiency Anxiety Surgical History Surgical History History of left knee replacement Hx of appendectomy 08/27/2014 History of lumpectomy of left breast H/O abdominal hysterectomy With unilateral oophorectomy History of total right knee replacement (TKR) Hx of cardiac cath Nonobstructive CAD by cath 10/18/2010-normal m, cx. 30% LAD/RCA (per [facility] note) H/O gastric bypass Social History Social History Smoking status: Never smoker Second hand tobacco smoke exposure: No Alcohol intake: never Drinks per week: 0 Alcohol use details: RARE, ONE A MONTH Substance use: never Substance use type: does not use Do You Feel Safe in your Home?: Yes Lack of Transportation: No Lack of Food: Sometimes True Current Housing: I Have Housing Concerned About Future Housing: YES Difficulty Paying Gas/Electric Bills: YES Difficulty Paying for Meds: No Currently Unemployed: No Education: Bachelor's Degree Difficulty w/ Childcare or Family Care: No Living arrangements: with family Spiritual care concerns: No Comments At the time of my signature, I reviewed and agree with the nursing past medical, surgical, social, and family history. There is no relevant family history pertinent to the patient complaint. Exam Const: General: cooperative, no acute distress, well developed, alert, ill appearing chronically; not acutely, uncomfortable and well nourished Nutritional Appearance: well nourished and obese Orientation/consciousness: patient oriented x3 Limitations: no limitations HENMT: Head: normal to inspection Head images:  1. Significant swelling bruising noted to the eyebrow and medial aspect upper nose. Eyes: General: appearance normal, both eyes and all related structures Alignment and Position: alignment normal Neck: Neck: normal visual inspection, full ROM, no lymphadenopathy and no meningeal signs Chest: Chest palpation & inspection: normal inspection of the chest Resp: Effort & Inspection: normal respiratory effort and able to speak in complete sentences Auscultation: clear to auscultation bilaterally, no crackles, no rales, no rhonchi and no wheezes Cardio: Rate: regular rate Skin: General skin exam: normal color and no rashes or lesions noted Full body images:  1. Older bruising, mild swelling. Neuro: General: patient oriented x3, moves all extremities and no meningeal signs Cognition (Neuro): normal cognition Speech: normal speech Gait exam (Neuro): Other gait observations present (Currently in a wheelchair) Extrem: General: normal to inspection, full ROM and capillary refill normal Right upper extremity: elbow/forearm tenderness (Generalized elbow) and normal ROM and wrist normal to inspection and normal ROM; no tenderness and no swelling Left upper extremity: elbow/forearm tenderness, swelling and normal ROM and hand normal capillary refill, tenderness of the dorsal hand over the 5th metacarpal and of the palm (5th metatarsal full bruising), vascular exam radial pulse present and normal capillary refill, abnormal ROM of finger pain with active ROM, swelling (Dorsal and palmar aspect 5th meta carpal) and ecchymosis of the dorsal hand and of the palm Psych: Appearance: grossly normal and well kempt Mental Status: mental status grossly normal Speech and movement: Normal speech and movement present and Clear speech present Affect: normal affect Attitude: cooperative Course Course Level of Care: Express Care Visit Vital Signs Vital signs: Vital Signs Temperature 97.3 F L 04/06/25 09:19 Pulse Rate 73 04/06/25 09:19 Respiratory Rate 16 04/06/25 09:19 Blood Pressure 135/67 04/06/25 09:19 Pulse Oximetry 98 04/06/25 09:19 Oxygen Delivery Room Air 04/06/25 09:19 Temperature 97.3 F L 04/06/25 09:19 Pulse Rate 73 04/06/25 09:19 Respiratory Rate 16 04/06/25 09:19 Blood Pressure 135/67 04/06/25 09:19 Pulse Oximetry 98 04/06/25 09:19 Oxygen Delivery Room Air 04/06/25 09:19 Reviewed Medical Decision Making MDM Narrative Medical decision making narrative: Patient is sitting in exam room. Patient is nontoxic vitals stable. Patient presents with multiple complaints, right facial trauma. Originally was tender around the orbits, discussed transfer to the ER for CT scan, patient is adamantly declining. Discussed risks of her being on a blood thinner, the amount of bruising and swelling is definitely a concern. Discussed that if there is bleeding behind the eye that he can actually cause blindness. Patient states that she is here for her bilateral elbows and left hand. Patient has foot drop, multiple falls due to not being able to feel her foot. Patient's x-ray of bilateral elbows showed no acute finding, left hand showed 5th my metacarpal fracture. Splint placed, sling offered, patient declined. Patient with a history of falls, multiple medications, encourage patient to take Tylenol as well as icing it. Discussed signs and symptoms to proceed to the emergency room which she states she will not go. Discharge instructions reviewed with patient, as well as provided in writing per nursing staff. The instructions also include specific and strict return/GO TO THE ER as well as f/u information. All questions have been answered, and the patient deny any further questions with discharge and discharge plan. Some parts of this dictation were generated by voice recognition software and may contain typographical and/or grammatical inaccuracies. Differential Diagnosis Differential Diagnosis: Fractures, sprains, strains, contusions, brain bleed Medical Records Medical records reviewed: Yes I reviewed the external patient's medical records. Vital Signs Vital Signs: Vital Signs Temperature 97.3 F L 04/06/25 09:19 Pulse Rate 73 04/06/25 09:19 Respiratory Rate 16 04/06/25 09:19 Blood Pressure 135/67 04/06/25 09:19 Pulse Oximetry 98 04/06/25 09:19 Oxygen Delivery Room Air 04/06/25 09:19 Temperature 97.3 F L 04/06/25 09:19 Pulse Rate 73 04/06/25 09:19 Respiratory Rate 16 04/06/25 09:19 Blood Pressure 135/67 04/06/25 09:19 Pulse Oximetry 98 04/06/25 09:19 Oxygen Delivery Room Air 04/06/25 09:19 Reviewed Lab Data Lab results reviewed: Yes I reviewed the patient's lab results. Labs: Reviewed Imaging Data Radiologist's impression: EXAMINATION: XR elbow LT min 3V, 04/06/2025 10:00 CDT HISTORY: fall pain COMPARISON: No comparisons available. Findings: No acute fracture or malalignment. Moderate degenerative changes Soft tissues unremarkable. Impression: No acute fracture or malalignment. EXAMINATION: XR hand LT min 3V, 04/06/2025 10:00 CDT HISTORY: pain and swelling fall last night COMPARISON: No comparisons available. Findings: There is a displaced fracture of the distal fifth metacarpal. No significant degenerative changes. Soft tissues unremarkable. Impression: Fifth metacarpal fracture X-rays right elbow Indication: None Comparison: Left elbow same day Technique: 4 views right elbow Findings/Impression: 1. No fracture or dislocation right elbow. Critical Care Time Critical Care Time Critical Care Time: No Discharge Plan Discharge Clinical Impression: Bilateral elbow joint pain Closed fracture of fifth metacarpal bone of left hand Qualifiers: Encounter type: initial encounter Metacarpal location: unspecified portion of metacarpal Fracture alignment: displaced Qualified Code(s): S62.307A - Unspecified fracture of fifth metacarpal bone, left hand, initial encounter for closed fracture Contusion of elbow, left Qualifiers: Encounter type: initial encounter Qualified Code(s): S50.02XA - Contusion of left elbow, initial encounter Contusion of left leg Qualifiers: Encounter type: initial encounter Qualified Code(s): S80.12XA - Contusion of left lower leg, initial encounter Contusion of face Qualifiers: Encounter type: initial encounter Qualified Code(s): S00.83XA - Contusion of other part of head, initial encounter Clinical Impression: (Ruled Out): Mitral stenosis Patient Disposition: Home Condition: Stable Instructions: Black Eye (ED), Contusion in Adults (ED), Splint Care (ED), Boxer Fracture (ED) Additional Instructions: Rest, ice and elevate every 2-3 hours for 15-20 minutes while awake. Take Tylenol as needed for pain. Please follow instructions on box. Call Dr. Hensley's office for a follow-up appointment for the fracture in your hand For the contusion on your face you have declined to going to the ER. If you start having blurry vision, severe headache, vomiting please call 911 and go directly to the emergency room For worsening symptoms go directly to the emergency room Patient Language: Comoran Prescriptions: No Action Biotin Hyaluric Acid 10,000 mcg PO DAILY Iron 65 Mg W Vit C 270mg 65 mg PO DAILY calcium citrate-vitamin D3 [Calcium Citrate + D] 315 mg-5 mcg (200 unit) Tablet 1 tablet PO DAILY lorazepam 0.5 mg tablet 0.5 mg PO PRN PRN (Reason: Anxiety) lamotrigine 100 mg tablet 100 mg PO DAILY sacubitril-valsartan [Entresto] 24-26 mg tablet 1 tablet PO DAILY docusate sodium [Colace] 100 mg capsule 100 mg PO HS cetirizine 10 mg tablet 10 mg PO DAILY PRN (Reason: allergy symptoms) Eliquis 5 mg tablet 5 mg PO BID Qty: 180 0RF atorvastatin [Lipitor] 20 mg tablet 20 mg PO DAILY Qty: 90 2RF metoprolol succinate 25 mg tablet extended release 24 hr 25 mg PO DAILY Qty: 90 2RF spironolactone [Aldactone] 25 mg tablet 25 mg PO DAILY Qty: 90 2RF aspirin [Adult Low Dose Aspirin] 81 mg tablet,delayed release (DR/EC) 81 mg PO DAILY cyanocobalamin (vitamin B-12) 500 mcg tablet 1,000 mcg PO DAILY furosemide [Lasix] 20 mg tablet 20 mg PO QAM loratadine [Claritin] 10 mg tablet 10 mg PO DAILY carboxymethylcellulose sodium [Refresh Plus] 0.5 % dropperette 1 drp EACH EYE DAILY PRN (Reason: dry eye(s)) hydroxyzine HCl 10 mg tablet 10 mg PO TID PRN (Reason: sleep) hydroxyzine HCl 50 mg tablet 50 mg PO QHS bupropion HCl [Wellbutrin SR] 100 mg tablet sustained-release 12 hr 100 mg PO BID Qty: 180 1RF duloxetine 60 mg capsule,delayed release(DR/EC) 60 mg PO DAILY Qty: 90 1RF vitamin c 1000mg + Calc carbnt 52mg See Rx Instructions BYMOUTH .COMPLEX Rx Instructions: 1 orally; acetaminophen 500 mg tablet 500 mg PO .PRN PRN (Reason: pain) Bariatric Multivitamins 45 mg iron- 800 mcg-120 mcg capsule 1 cap PO DAILY methocarbamol 750 mg tablet 750 mg PO .COMPLEX PRN (Reason: spasms) Rx Instructions: 750 mg orally PRN; nitroglycerin 0.4 mg tablet, sublingual 0.4 mg sublingual Q5-15M PRN (Reason: chest pain) Qty: 10 0RF Rx Instructions: do not exceed 3 doses per episode omeprazole 40 mg capsule,delayed release(DR/EC) 40 mg PO DAILY Qty: 90 1RF fluticasone propionate 50 mcg/actuation spray,suspension 2 spray intranasal DAILY Qty: 48 1RF Rx Instructions: administer into each nostril pregabalin [Lyrica] 75 mg capsule 75 mg PO BID Qty: 180 2RF Follow-up/Referrals: Johanna Hensley MD [Physician, Plastic Surgery] - 3 Days Pacheco Mejia DO [Primary Care Provider, Internal Medicine] - 3 Days Time of Disposition: 10:46
== END 2025-04-06 10:54 | disposition home or self-care (01) ==
PROVIDERS: Emergency Provider Nurse Practitioner; PCP Internal Medicine
DX: S62.307A Unspecified fracture of fifth metacarpal bone, left hand, initial encounter for closed fracture (principal); S50.02XA Contusion of left elbow, initial encounter; S80.12XA Contusion of left lower leg, initial encounter; S00.11XA Contusion of right eyelid and periocular area, initial encounter; S00.33XA Contusion of nose, initial encounter; W19.XXXA Unspecified fall, initial encounter; M25.522 Pain in left elbow; M25.521 Pain in right elbow; G25.81 Restless legs syndrome; I10 Essential (primary) hypertension; E78.5 Hyperlipidemia, unspecified; M19.90 Unspecified osteoarthritis, unspecified site; I35.0 Nonrheumatic aortic (valve) stenosis; G62.9 Polyneuropathy, unspecified; E66.01 Morbid (severe) obesity due to excess calories; Z68.42 Body mass index [BMI] 45.0-49.9, adult; F41.9 Anxiety disorder, unspecified; F32.A Depression, unspecified; D64.9 Anemia, unspecified; E55.9 Vitamin D deficiency, unspecified; Z79.01 Long term (current) use of anticoagulants; Z79.82 Long term (current) use of aspirin
CPT/HCPCS: 29125; 73080; 73130; 99214; A4565; G0463

== ENCOUNTER 2025-04-09 18:52 | Emergency (ER) | payer OTHER, MEDICAID, SELFPAY ==
--- OUTSIDE RECORDS SUMMARY | 2023-02-12 11:11 | XMS_ITS | Continuity of Care Document ---
Author Organization 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, [address] [address], [place], [place], [id number], tel:[phone] [place] No Information 3 Jose E Mock. . [facility] [address], [place], [place], [id number], tel:[phone] [place] No Information 3 Jose E Mock. . Referring Provider: Alessandra Alston, [address], [place], [address]. tel:[phone] [facility], [address], [place], [place], [id number], tel:[phone] [place] No Information 3 Jose E Mock. . Referring Provider: Alessandra Alston, [address], [place], [address]. tel:[phone] Family History Family Member Type Diagnosis Age At Onset No Information Payers Payer name Insurance type Covered democrat ID Tonya sanchez(s) [employer] CI [id number] Social History Type Description Quantity Date Captured Comments Sex Female Smoking Status No Information Chief Complaint And Reason For Visit No Information Reason For Referral Reason For Referral No Information Plan Of Treatment Date Type Action Status Referral Ordered: Clinical Psychology (related to Depression) ordered Referral Ordered: Depression: Depression management program timeframe: 1 Day. (related to Depression) ordered Referral Ordered: Referrals: Specialist. Evaluate and Treat (related to Adjustment disorder with depressed mood) ordered History Of Present Illness Encounter Date Complaint History Of Prese nt Illness No Information Functional Status Date Functional Assessmen t No Information Instructions Date Instruction Additional Infor mation Dietary needs education Related to Overweight Prescribed activity/exercise edu cation Related to Overweight Assessments Type Assessment Date No Information Patient Care Teams Name Effective Dates (start - stop) Status Members No Information
--- OUTSIDE RECORDS SUMMARY | 2023-02-12 11:11 | XMS_ITS | Continuity of Care Document ---
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 . [facility] [address], [place], [place], [address], tel:[phone] [place] No Information 3 Jose E Mock. . Referring Provider: Alessandra Alston, [address], [place], [address]. tel:[phone] [facility], [address], [place], [place], [id number], tel:[phone] [place] No Information 3 Jose E Mock. . Referring Provider: Alessandra Alston, [address], [place], [address]. tel:[phone] Family History Family Member Type Diagnosis Age At Onset No Information Payers Payer name Insurance type Covered alliance party ID Tonya sanchez(s) [employer] CI [id number] Social History Type Description Quantity Date Captured [...]
--- OUTSIDE RECORDS SUMMARY | 2025-03-12 09:20 | XMS_ITS ---
Author Organization [facility] Address [address] [place], [place] [address] Care Team Providers Care Coagulating Operator Name Role Phone Raiza Rosa Unavailable [phone] REASON FOR VISIT 1 month f/u Medications Medication SIG (Take, Route, Frequency, Duration) Notes Start Date End Date Status dexAMETHasone 1 MG Tablet 1 tablet Orall y at 10 pm night before 8 am cortisol; Duration: 1 days 02/12/2025 Activ e Encounters Encounter Location Date Provider Diagnosis [facility] Rosa [address] [place] [phone] 03/12/2025 Raiza Rosa Plan Of Treatment No [...] Notes * Janak VEGAdebbyDOB:1960 (64 yo F)Acc No.[id number]:03/12/2025 Progress Notes Patient: Leyla Senior Provider: Jung Rosa MD :1960 A ge:64 Y S ex:Female Date:03/12/2025 Phone: Address:[address] [place] [address] Subjective: * Chief Complaints: * 1 month [...] Electronic signature of Prabhjot Rosa MD on 04/09/2025 at 06:54 PM CDT Sign off status: Pending * Provider: Jung Rosa MD Date: 03/12/2025 Generated for Irma sweeney/Geronimo/Cosmoitting on: 04/09/2025 06:54 PM CDT
--- NOTE | ~2025-04-09 | CT_ITS ---
EXAMINATION: CT tibia/fibula LT wo con COMPARISON: None HISTORY: hematoma, poss abcess s/p trauma TECHNIQUE: Axial images were obtained without IV contrast. Sagittal, coronal reconstruction images were obtained from the axial views. CT scan performed using dose optimization techniques including the following automated exposure control; adjustment of mA and/or kV; use of iterative reconstruction technique. Automatic exposure control was used to reduce radiation dose. Permanent radiation dose record is archived to PACS. FINDINGS: Knee prosthesis appears intact. No fracture or dislocation. Osseous destruction. There is no joint effusion There is stranding within the anterior subcutaneous tissues with a focus of hemorrhage along the anterior aspect measuring 5.1 x 1.5 cm x 5. There is no air within the subcutaneous tissues or radiopaque foreign body identified. Moderate degenerative changes noted of the visualized ankle. IMPRESSION: Hematoma detailed above. No acute fracture Reviewed, dictated and finalized at location P.
--- OUTSIDE RECORDS SUMMARY | 2025-04-09 18:55 | XMS_ITS | Patient Health Record ---
Author Organization [facility] Address [address] [place], [place] [address] Care Team Providers Care Supervisor Bindery Name Role Phone Raiza Rosa Unavailable [phone] Allergies Allergen (clinical drug ingredient) Drug/Non Drug Allergy documented on EMR Reaction Allergy Type Onset Date Status amoxicillin / clavulanate Augmentin Unknown Drug Allergy Active Penicillin Unknown Drug Allergy Active tetracycline Tetracycline Unknown Drug Allergy A ctive Reason For Referral No Information Medications Medication SIG (Take, Route, Frequency, Duration) Notes Start Date End Date Status dexAMETHasone 1 MG Tablet 1 tablet Orall y Once a day; Duration: 1 days 02/12/2025 Active Social History Section Notes: tobacco: no alcohol: no caffeine: yes, coffee and tea Problems Problem Type SNOMED Code ICD Code Onset Dates Problem Status W/U Status Risk Notes Problem Vitamin D deficiency (88274459) Vitamin D deficiency, unspecified (E55.9) Active confirmed Problem Insomnia (764653643) Insomnia due to medical condition (G47.01) Active confirmed Problem Obesity (969120191) Obesity (BMI 30-39.9) (E66.9) Active confirmed Problem Generalized anxiety disorder (53438299) Anxiety, generalized (F41.1) Active confirmed Problem Morbid obesity (334171407) Morbid obesity (E66.01) Active confirmed Problem Insulin resistance (691968834) Insulin resistance (E88.819) Active confirmed Vital Signs Heart Rate 82 /min 03/19/2025 Respiratory Rate 12 /min 03/19/2025 Height-cm 160.02 cm 03/19/2025 Oximetry 95 % 02/12/2025 Blood pressure diastolic 64 mm Hg 03/19/2025 Weight-kg 129.28 kg 03/19/2025 Height 63 in 03/19/2025 Blood pressure systolic 107 mm Hg 03/19/2025 Weight 285 lbs 03/19/2025 BMI 50.48 kg/m2 03/19/2025 Encounters Encounter Location Date Provider Diagnosis [facility] Dr. Rosa [address] [place] [address] 02/12/2025 Raizazoe Rosa Obesity (BMI 30-39.9 ) E66.9 ; Impaired fasting glucose R73.01 ; Other fatigue R53.83 ; Vitamin D deficiency, unspecified E55.9 ; Lipid screening Z13.220 ; Anxiety, generalized F41.1 ; Insomnia due to medical condition G47.01 and Dietary counseling and surveillance Z71.[address] Rosa [address] [place], [place] [id number] 03/19/2025 Raiza Rosa Morbid obesity E66.0 1 ; Adenoma of left adrenal gland D35.02 and Insulin resistance E88.819 [place] [address] 03/11/2025 Raiza Moe Obesity (BMI 30-39.9 ) E66.[address] Rosa [address] [place] [address] 03/12/[address] Rosa [address] [place] [address] 03/12/2025 Raiza Meo Obesity (BMI 30-39.9 ) [place]66.[place] [address] 03/25/2025 Raiza Rosa Assessments Encounter Date Diagnosis (ICD Code) Assessment Notes Treatment Notes Treatment Clinical Notes Section Notes 02/12/2025 Impaired fasting glucose (ICD-10 - R73.01) 02/12/2025 Obesity (BMI 30-39.9) (ICD-10 - E66.9) 03/11/2025 Obesity (BMI 30-39.9) (ICD-10 - E66.9) 03/12/2025 Obesity (BMI 30-39.9) (ICD-10 - E66.9) 03/19/2025 Adenoma of left adrenal gland (ICD-10 - D35.02) 03/19/2025 Morbid obesity (ICD-10 - E66.01) 03/19/2025 Insulin resistance (ICD-10 - E88.819) 02/12/2025 Other fatigue (ICD-10 - R53.83) 02/12/2025 Vitamin D deficiency, unspecified (ICD-10 - E55.9) 02/12/2025 Lipid screening (ICD-10 - Z13.220) 02/12/2025 Anxiety, generalized (ICD-10 - F41.1) 02/12/2025 Insomnia due to medical condition (ICD-10 - G47.01) 02/12/2025 Dietary counseling and surveillance (ICD-10 - Z71.3) Spent 15 minutes preventative counseling patient on dietary recommendations and changes in setting of hyperglycemia- need to restrict refined sugars and processed foods and incorporate up to 150 minutes of moderate level activity weekly. 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 Suspected Case's SyndromeAssessment: Patient presents with symptoms suggestive of [place]'s syndrome, including weight gain, hypertension, and high cortisol levels. Recent imaging revealed a finding on the adrenal gland, which could potentially be an adrenal adenoma contributing to elevated cortisol. Patient reports weight fluctuations, with significant weight gain despite proper diet and exercise following bariatric surgery. Additionally, the patient experiences anxiety, depression, and occasional insomnia. A dexamethasone suppression test has been recommended for further evaluation.Plan:- Order dexamethasone suppression test - Fasting test past midnight - Test with dexamethasone pill- Request and review previous adrenal gland scan report- Obtain recent thyroid function test results, noting potential biotin interference- Follow up to discuss test results and potential treatment options, including medication if adrenal adenoma is confirmed HypertensionAssessme nt: Patient reports a history of hypertension, currently managed with spironolactone. The medication is also used to address leg swelling. Patient reports that potassium levels are currently stable.Plan:- Continue spironolactone for blood pressure management and leg swelling- Monitor potassium levels Recent Open-Heart SurgeryAssessment: Patient underwent open-heart surgery on December 09 for aortic valve replacement due to aortic stenosis, which was a congenital defect. The surgical report noted significant calcification (half an inch). Patient experienced major complications post-surgery, including the development of foot drop.Plan:- Follow up with cardiology team regarding post-operative care and management- Assess and monitor foot drop, consider referral to physical therapy or neurology if not already in place Anxiety and DepressionAssessment : Patient reports a history of anxiety and depression. Currently using melatonin to aid with sleep, which has been effective recently.Plan:- Continue current management for anxiety and depression- Monitor sleep patterns and effectiveness of melatonin CholelithiasisAssess ment: Patient reports having gallstones but has not experienced kidney stones.Plan:- Monitor for symptoms related to gallstones- Educate patient on signs of gallbladder complications Spent 45 minutes preparing to see the patient (ex review of tests/chart), obtaining and / or reviewing separately obtained history, performing a medically appropriate examination and/or evaluation, counseling and educating the patient/family/careg iver, ordering medications, tests, or procedures, referring and communicating with other health child care centre director, documenting clinical information in the electronic or other health record, independently interpreting results and communicating results to the patient/family/careg iver and care coordinating patient plan. Patient alert and oriented x 4 and aware of discussion noted above and in agreeance to plan in management of obesity/weight management, fatigue, anxiety, insomnia and hormonal concerns. 03/19/2025 Pito Mayer, a female patient with a history of pancreatitis, presents with symptoms suggestive of hypercortisolism, including insomnia, anxiety, and insulin resistance. Suspected HypercortisolismAsse ssment: Patient presents with symptoms consistent with hypercortisolism, including insomnia, anxiety, chronic worry, and insulin resistance. Recent lab work shows elevated cortisol levels, though it is unclear if these are pathologically high. A dexamethasone suppression test was performed on Sunday, with results pending. If the dexamethasone level returns over 150 mg/dL, it would indicate a positive test. An adrenal nodule was identified on a CT scan in November, which could be contributing to the hypercortisolism. The patient's insulin levels are elevated, while A1c is low. Vitamin D, iron, B12, folic acid, and lipid levels are within normal limits. TSH and T3 levels are also normal. The patient reports being a night owl with significant sleep disturbances, which is common in cortisol-related disorders. Differential diagnoses include Case syndrome, subclinical hypercortisolism, or minimally autonomous hypercortisolism.Aminata n:- Await results of dexamethasone suppression test- Order repeat dexamethasone suppression test if initial results are positive (over 150)- Order 24-hour urinary free cortisol test- Order salivary cortisol test- Request patient to send CT scan results from November for review- Schedule in-person follow-up visit to discuss treatment options and obtain informed consent if diagnosis is confirmed- Consider hydrocortisone treatment if diagnosis is confirmed (pending test results) Adrenal NoduleAssessment: Patient reports an unchanged indeterminate left adrenal nodule identified on a CT scan in November. The exact size of the nodule is unknown. This finding is potentially related to the suspected hypercortisolism and requires further evaluation.Plan:- Review CT scan results when received from patient- Consider follow-up adrenal protocol CT in 12 months as suggested in previous imaging report Enlarged Right OvaryAssessment: Patient reports an enlarged right ovary identified on imaging, which is noted to be larger than expected for her age. The patient has only the right ovary remaining. This finding requires further evaluation and follow-up.Plan:- Recommend patient establish care with a cover machine operator for evaluation of enlarged right ovary- Discuss importance of gynecological follow-up with primary care physician History of PancreatitisAssessme nt: Patient reports a history of pancreatitis diagnosed in 2014 during an emergency room visit for chest pain. A previous lipase test from October 02 showed abnormal results, suggesting possible ongoing pancreatic inflammation.Plan:- Recommend continued avoidance of fatty foods and smoking- Consider referral to gastroenterology for follow-up of pancreatitis history and abnormal lipase results ObesityAssessment: Patient reports a current weight of 285 lbs. This may be related to the suspected hypercortisolism and insulin resistance.Plan:- Address weight management as part of overall treatment plan for suspected hypercortisolism- Educate patient that Ozempic is not indicated for weight loss in this clinical context Spent 25 minutes preparing to see the patient (ex review of tests/chart), obtaining and / or reviewing separately obtained history, performing a medically appropriate examination and/or evaluation, counseling and educating the patient/family/careg iver, ordering medications, tests, or procedures, referring and communicating with other health child care centre director, documenting clinical information in the electronic or other health record, independently interpreting results and communicating results to the patient/family/careg iver and care coordinating patient plan. Patient alert and oriented x 4 and aware of discussion noted above and in agreeance to plan in management of morbid obesity, left adrenal adenoma, and insulin resistance. Due to the nature of telemedicine, the ability to do physical assessment was limited to what can be accomplished by patient directed telehealth visit based on instruction. Those limits are understood by the patient and myself. Impression is based on history, available information, and physical findings accomplished with telehealth visit. Chronic disease/problem list/ medication list reviewed and updated where indicated. Discussed diagnosis, plan including risks, benefits, and options of treatment. Advised to call for new, worsening, or persistent symptoms. Level of patient risk was of moderate complexity due to the documented nature of presentation, the information assessment required and the nature of the development of an evaluation and treatment plan as documented. PMH, FHx, SHx, Surgical Hx, Quality management review carried out and addressed as documented today as part of this visit. Medication list was reviewed and adjusted as indicated. Medication requiring a refill was addressed. Risk and benefits of any new medications were discussed and all questions were answered. Plan Of Treatment No Information Insurance Providers Payer Name Payer Address Payer Phone Subscriber Number Group Number Insured Name Patient Relationship to Insured Coverage Start Date Coverage End Date [facility] [address] [place] [address] [id number] Leyla Vega Self - patient is the insured
--- OUTSIDE RECORDS SUMMARY | 2025-04-09 18:55 | XMS_ITS | Clinical Summary ---
Author Organization [facility] Elaine Cunha Address [address] [place] [address] Care Team Providers Care Housekeeping Director Name Role Phone GlynnPacheco mihcelle Ravinder BILLS Primary Care Provider Allergies Active [...] bedtime. Active fluticasone propionate (FLONASE) 50 mcg/spray [place], Suspension nasal inhaler USE 2 SPRAY(S) IN [...] Comments Blood Pressure 129/70 05/30/2023 10:21 AM INSTRUCTIONAL SYSTEMS DESIGN CONSULTANT Pulse 93 05/30/2023 10:21 AM INSTRUCTIONAL SYSTEMS DESIGN CONSULTANT Temperature 35.7 C (96.2 F) 05/30/2023 10:21 AM INSTRUCTIONAL SYSTEMS DESIGN CONSULTANT Respiratory Rate 12 05/30/2023 10:21 AM INSTRUCTIONAL SYSTEMS DESIGN CONSULTANT Oxygen Saturation 96% 05/30/2023 10:21 AM INSTRUCTIONAL SYSTEMS DESIGN CONSULTANT Inhaled Oxygen Concentration - - Weight 134.3 kg (296 lb) 05/30/2023 10:21 AM INSTRUCTIONAL SYSTEMS DESIGN CONSULTANT Height 160 cm (5' 3) 05/30/2023 10:21 AM INSTRUCTIONAL SYSTEMS DESIGN CONSULTANT Body Mass Index 52.43 05/30/2023 10:21 AM INSTRUCTIONAL SYSTEMS DESIGN CONSULTANT Plan of Treatment Health Maintenance Due Date [...] (1 - 1-dose 75+ series) 2037 Insurance [facility] MEDICAID [place] Care Teams Housekeeping Director Relationship Specialty Start Date End Date Pacheco Mejia DO [address] [facility] [address] [place] [id number] PCP - General Internal Medicine 02/16/23
--- OUTSIDE RECORDS SUMMARY | 2025-04-09 18:55 | XMS_ITS | Clinical Summary ---
Author Organization [facility] Address [facility] [place] [address] Care Team Providers Care Material Control Associate Name Role Phone Pacheco Mejia DO Primary Care Provider [phone] Encounters Date Type Department Care Team Description 01/12/2025 Scan [facility] Care [place] [address] [place] [address] [id number] Scanned, [facility] from Last 3 Months Social History Tobacco Use Types Packs/Day Years Used Date Smoking Tobacco: Never Assessed Comments Unknown Sex and Gender Information Value Date Recorded Sex Assigned at Not on file Legal Sex Female 2:59 PM CDT Gender Identity Not on file Sexual Orientation Not on file Plan of Treatment Health Maintenance Due Date Last Done Comments Cervical Cancer Screening Pa p Smear (Age 30 to 64) Every 3 Years 1962 Colorectal Cancer Screening Colonoscopy (10 Years) 1962 Annual Physical 1965 Hepatitis C 1980 DTaP, Tdap and Td Vaccines ( 1 - Tdap) 1981 Cervical Cancer Screening Pa p with HPV Testing (Age 30 to 64) Every 5 Years 1992 Cervical Cancer Screening with HPV 1992 Mammogram Screening 2002 Pneumococcal Vaccine: 50+ Ye ars (1 of 1 - PCV) 2012 Zoster Vaccines (1 of 2) 2012 COVID-19 Vaccine ( - 2023-2 5 season) 2025 RSV Immunization or 60+ Years (1 - 1-dose 75+ series) 2037 Meningococcal B Vaccine Aged Out No l onger eligible based on patient's age to complete this topic Meningococcal Vaccine Aged Out No rajani javon eligible based on patient's age to complete this topic RSV Immunizations Under 20 Months Aged Out No longer eligible based on patient's age to complete this topic Insurance [employer] Care Teams Material Control Associate Relationship Specialty Start Date End Date Pacheco Mejia DO [address] [facility] [address] [place] [address] PCP - General INTERNAL MEDICINE 01/12/25
--- OUTSIDE RECORDS SUMMARY | 2025-04-09 18:55 | XMS_ITS ---
Author Name Maximo Mckinney DO Address [address] [place] [address] Phone [phone] Organization [facility] Care Team Providers Care Supervising Broker Name Role Phone Maximo Mckinney Unavailable [phone] Primarily Home Tier 2 RN (STL), Sigrid Stewart U navailable Unavailable Latisha Andrade Courtney Unavailable Unavail able Primarily Home Tier 1 RN (STL), Sigrid Bermudez navailable Unavailable ELODIA FORTE Unavailable [phone] TIMOTHY CLIFFORD Unavailable [phone] Reason for Referral Not Available Allergies, adverse [...] tablet orally daily 11-16-13 No Data Available Fortine-3 Fish Oil 1200 mg Cap 1 Capsule [...] Recommend diet and exercise if approved by Inside Sales Manager Dyspnea on exertion Active 2024-10-27 N/A Kol[place] [...] medical decision making, total time 30-44 minutes [id number] 2024-10-27 No Data Available No Data Availa [...] day supply 2024-10-27 Recommend to speak w [facility] PCP about physical therapy Health [...]
--- OUTSIDE RECORDS SUMMARY | 2025-04-09 18:55 | XMS_ITS | Patient Health Record ---
Author Organization [facility] As [email or web address] Address [address] [address] Care Team Providers Care Mold Holder Name Role Phone Pacheco Mejia DO Primary Care Provider Lakisha Sultana Unavailable [phone] Bronwyn Berkley Unavailable [phone] Leticia Santiago Unavailable [phone] Allergies Allergen (clinical drug ingredient) Drug/Non Drug [...] Oxazepam (BZO) n 0 - 300 ng/ml 6-nqjfehzrfv-0,5-ogcdhtcc-4,3-diphenylpyrrolidine (AAMIR P) n 0 - 300 ng/ml Methamphetamine (MET) n 0 - 1000 ng/ml Methylenedioxymethamphetamine (MDMA) n 0 - 500 ng/ml Morphine (MOP 300/AQM9294) n 0 - 300 ng/ml Methadone (MTD) [...] Aerosol Powder Breath Activated Inhalation *Reorder from [employer] for eRx and Interaction Alerts* 11/19/2023 Not-Taking [...] NoDo you have a medical power of banking attorney?: NoPublic Health and TravelHave you been [...] NoDo you have a medical power of banking attorney?: NoPublic Health and TravelHave you been [...] NoDo you have a medical power of banking attorney?: NoPublic Health and TravelHave you been [...] NoDo you have a medical power of banking attorney?: NoPublic Health and TravelHave you been [...] NoDo you have a medical power of banking attorney?: NoPublic Health and TravelHave you been [...] NoDo you have a medical power of banking attorney?: NoPublic Health and TravelHave you been [...] NoDo you have a medical power of banking attorney?: NoPublic Health and TravelHave you been [...] NoDo you have a medical power of banking attorney?: NoPublic Health and TravelHave you been [...] NoDo you have a medical power of banking attorney?: NoPublic Health and TravelHave you been [...] NoDo you have a medical power of banking attorney?: NoPublic Health and TravelHave you been [...] NoDo you have a medical power of banking attorney?: NoPublic Health and TravelHave you been [...] NoDo you have a medical power of banking attorney?: NoPublic Health and TravelHave you been [...] NoDo you have a medical power of banking attorney?: NoPublic Health and TravelHave you been [...] NoDo you have a medical power of banking attorney?: NoPublic Health and TravelHave you been [...] NoDo you have a medical power of banking attorney?: NoPublic Health and TravelHave you been [...] NoDo you have a medical power of banking attorney?: NoPublic Health and TravelHave you been [...] NoDo you have a medical power of banking attorney?: NoPublic Health and TravelHave you been [...] NoDo you have a medical power of banking attorney?: NoPublic Health and TravelHave you been [...] (e.g., BA, AB, BS)Are you currently employed?: [employer] is your employer?: disabled / retiredMarriage and SexualityWhat is your relationship status?: MarriedAre you sexually active?: NoDo you use protection during sex?: NoHow many children do you have?: 0Home and EnvironmentAre there any guns present in your home?: NoAdvance DirectiveDo you have an advance directive?: NoDo you have a medical power of banking attorney?: NoPublic Health and TravelHave you been [...] NoDo you have a medical power of banking attorney?: NoPublic Health and TravelHave you been to an area known to be high risk for COVID-19?: NoGender Identity and LGBTQ IdentityGender identity: Identifies as FemaleAssigned sex at : FemaleSexual orientation: Straight or heterosexual Problems Problem Type SNOMED Code ICD Code Onset Dates Problem Status W/U Status Risk Notes Problem Generalized anxiety disorder (11785661) Generalized anxiety disorder (F41.1) 4 Active confirmed Problem Chronic post-traumatic stress disorder (273326808) Chronic posttraumatic stress disorder (F43.12) Active confirmed Problem Insomnia disorder related to another mental disorder (67573890) Insomnia related to another mental disorder (F51.05) Active confirmed Problem Panic disorder (037975259) Panic attacks (F41.0) Active confirmed Problem Mild recurrent major depression (30104993) Mild recurrent major depression (F33.0) Active confirmed Problem Essential hypertension (98081324) Benign essential HTN (I10) Active confirmed Vital Signs Heart Rate 93 /min 11/17/2024 Height-cm 160.02 cm 11/17/2024 Blood pressure diastolic 73 mm Hg 11/17/2024 Weight-kg 128.82 kg 11/17/2024 Height 63.00 in 11/17/2024 Blood pressure systolic 150 mm Hg 11/17/2024 Weight 284 lbs 11/17/2024 BMI 50.3 kg/m2 11/17/2024 Encounters Encounter Location Date Provider Diagnosis [facility] [employer] [place] [address] [address] 04/09/2024 Berkley Bronwyn Mild recurrent major depression F33.0 ; Generalized anxiety disorder F41.1 ; Chronic posttraumatic stress disorder F43.12 and Panic attacks F41.0 [facility] [place] [address] [address] 04/21/2024 Leticia Santiago Major depressive disorder, recurrent, mild F33.0 ; Generalized anxiety disorder F41.1 ; Post-traumatic stress disorder, chronic F43.12 and Panic attacks F41.0 [facility] [address] [address] 04/21/2024 Berkley Bronwyn Mild recurrent major depression F33.0 ; Generalized anxiety disorder F41.1 ; Chronic posttraumatic stress disorder F43.12 and Panic attacks F41.0 [facility] [place] [address] [address] 05/15/2024 Berkley Bronwyn Mild recurrent major depression F33.0 ; Generalized anxiety disorder F41.1 ; Chronic posttraumatic stress disorder F43.12 and Panic attacks F41.0 [facility] [employer] [facility] [address] [address] 05/19/2024 Berkley Bronwyn Major depressive disorder, recurrent, mild F33.0 ; Generalized anxiety disorder F41.1 ; Chronic posttraumatic stress disorder F43.12 and Panic attacks F41.0 [facility] [place] [address] [address] 06/02/2024 Berkley Bronwyn Mild recurrent major depression F33.0 ; Generalized anxiety disorder F41.1 ; Chronic posttraumatic stress disorder F43.12 and Panic attacks F41.0 [facility] [address] [place] [address] 06/18/2024 Berkley Bronwyn Major depressive disorder, recurrent, mild F33.0 ; Generalized anxiety disorder F41.1 ; Chronic posttraumatic stress disorder F43.12 and Panic attacks F41.0 [facility] [address] [place] [address] 07/02/2024 Berkley Bronwyn Mild recurrent major depression F33.0 ; Generalized anxiety disorder F41.1 ; Chronic posttraumatic stress disorder F43.12 and Panic attacks F41.0 [facility] [address] [place] [address] 07/14/2024 Berkley Bronwyn Mild recurrent major depression F33.0 ; Generalized anxiety disorder F41.1 ; Chronic posttraumatic stress disorder F43.12 and Panic attacks F41.0 [facility] [address] [place] [address] 07/22/2024 Lakisha Parra Generalized anxiety disorder F41.1 ; Mild recurrent major depression F33.0 ; Chronic posttraumatic stress disorder F43.12 ; Panic attacks F41.0 and Inadequate sleep hygiene Z72.821 [facility] [address] [place] [address] 07/22/2024 Berkley Bronwyn Mild recurrent major depression F33.0 ; Generalized anxiety disorder F41.1 ; Chronic posttraumatic stress disorder F43.12 and Panic attacks F41.0 [facility] [address] [place] [address] 08/05/2024 Berkley Bronwyn Mild recurrent major depression F33.0 ; Generalized anxiety disorder F41.1 ; Chronic posttraumatic stress disorder F43.12 and Panic attacks F41.0 [facility] [address] [place] [address] 08/19/2024 Berkley Bronwyn Mild recurrent major depression F33.0 ; Generalized anxiety disorder F41.1 ; Chronic posttraumatic stress disorder F43.12 and Panic attacks F41.0 [facility] [address] [place] [address] 09/01/2024 Berkley Bronwyn Generalized anxiety disorder F41.1 ; Mild recurrent major depression F33.0 ; Chronic posttraumatic stress disorder F43.12 and Panic attacks F41.0 [place] [address] [facility] [address] [facility] [address] [place] [address] 10/02/2024 Berkley Bronwyn Encounter for screening for depression Z13.31 ; Mild recurrent major depression F33.0 ; Generalized anxiety disorder F41.1 ; Chronic posttraumatic stress disorder F43.12 and Panic attacks F41.[address] [facility] [address] [place] [address] 10/20/2024 Lakisha Hagkel Generalized anxiety disorder F41.1 ; Insomnia related to another mental disorder F51.05 ; Mild recurrent major depression F33.0 ; Chronic posttraumatic stress disorder F43.12 ; Panic attacks F41.0 ; Benign essential HTN I10 and Encounter for screening for depression Z13.31 [place] [address] [facility] [address] [address] 10/20/2024 Berkley Bronwyn Encounter for screening for depression Z13.31 ; Mild recurrent major depression F33.0 ; Generalized anxiety disorder F41.1 ; Chronic posttraumatic stress disorder F43.12 and Panic attacks F41.0 [place] [address] [facility] [address] [address] 11/03/2024 Berkley Bronwyn Encounter for screening for depression Z13.31 ; Mild recurrent major depression F33.0 ; Generalized anxiety disorder F41.1 ; Chronic posttraumatic stress disorder F43.12 and Panic attacks F41.0 [place] [address] [facility] [address] [address] 11/17/2024 Berkley Bronwyn Encounter for screening for depression Z13.31 ; Mild recurrent major depression F33.0 ; Chronic posttraumatic stress disorder F43.12 and Panic attacks F41.0 [place] [address] [facility] [address] [facility] [address] [place] [address] 11/17/2024 Lakisha Hagekl Generalized anxiety disorder F41.1 ; Chronic posttraumatic stress disorder F43.12 ; Panic attacks F41.0 ; Insomnia related to another mental disorder F51.05 ; Mild recurrent major depression F33.0 and Benign essential HTN I10 [place] [address] [facility] [address] [facility] [address] [place] [address] 12/03/2024 Berkley Bronwyn Generalized anxiety disorder F41.1 ; Mild recurrent major depression F33.0 ; Chronic posttraumatic stress disorder F43.12 ; Panic attacks F41.0 and Encounter for screening for depression Z13.31 [place] [address] [place] [address] 12/29/2024 Brekley Bronwyn Mild recurrent major depression F33.0 ; Generalized anxiety disorder F41.1 ; Chronic posttraumatic stress disorder F43.12 ; Panic attacks F41.0 and Encounter for screening for depression Z13.31 [place] [address] [place] [address] 01/05/2025 Berkley Bronwyn Generalized anxiety disorder F41.1 ; Mild recurrent major depression F33.0 ; Chronic posttraumatic stress disorder F43.12 and Encounter for screening for depression Z13.31 [place] [address] [place] [address] 01/30/2025 Berkley Bronwyn Mild recurrent major depression F33.0 ; Generalized anxiety disorder F41.1 ; Chronic posttraumatic stress disorder F43.12 ; Panic attacks F41.0 and Encounter for screening for depression Z13.31 [place] [address] [place] [address] 02/16/2025 Lakisha Parra Generalized anxiety disorder F41.1 ; Chronic posttraumatic stress disorder F43.12 ; Mild recurrent major depression F33.0 ; Insomnia related to another mental disorder F51.05 and Panic attacks F41.0 [place] [address] [place] [address] 02/24/2025 Berkley Bronwyn Mild recurrent major depression F33.0 ; Generalized anxiety disorder F41.1 ; Chronic posttraumatic stress disorder F43.12 and Panic attacks F41.0 [place] [address] [place] [address] 03/24/2025 Berkley Bronwyn Mild recurrent major depression F33.0 ; Generalized anxiety disorder F41.1 ; Panic attacks F41.0 and Chronic posttraumatic stress disorder F43.12 [place] [address] [place] [address] 06/02/2024 Lakisha Parra Generalized anxiety disorder F41.1 [facility] [address] [place] [address] 06/03/2024 Lakisha Parra Generalized anxiety disorder F41.1 [facility] [address] [place] [address] 06/06/2024 Lakisha Parra [facility] [address] [place] [address] 10/21/2024 Lakisha Parra [facility] [address] [place] [address] 10/30/2024 Lakisha Parra Generalized anxiety disorder F41.1 [facility] [address] [place] [address] 11/05/2024 Lakisha Parra Generalized anxiety disorder F41.1 and Mild recurrent major depression F33.0 [facility] [address] [place] [address] 01/30/2025 Lakisha Parra [facility] [address] [place] [address] 03/19/2025 Lakisha Parra Mild recurrent major depression F33.0 [facility] [address] [place] [address] 09/29/2024 Lakisha Parra [facility] [address] [place] [address] 09/30/2024 Lakisha Parra [facility] [address] [place] [address] 01/30/2025 Lakisha Parra Assessments Encounter Date Diagnosis [...] 04/21/2024 Other 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 [...] heart vs. transcatheter) to be determined. Patient's strategy intern has advised against exercise or activities that raise heart rate to avoid strain on the heart. Plan: - Advised patient to follow strategy intern's recommendations - Surgical consultation scheduled for next [...] Provider Name:Berkley Barnhart , 04/21/2025 02:00:00 PM, [address] [facility] [address] [facility] [address], [address], Insurance Providers Payer Name Payer Address Payer Phone Subscriber Number Group Number Insured Name Patient Relationship to Insured Coverage Start Date Coverage End Date [facility] [place] Medicare Replacement/ Advantage - Hmo [address] [place] [phone] [id number] ADI VEGA Self - patient is the insured [place] [address] [address] [place] [address] [id number] ADI VEGA Self - patient is the insured Medical (General) History Medical History History ICD Code Problems: Chronic post-traumatic stress disorder Generalized anxiety disorder Mild recurrent major depression Panic attack hypertension Surgical History Surgery Date(Month/Year) Hysterectomy (21832) Laparoscopic sleeve gastrectomy (1464064 ) 2014 Oophorectomy (14014) 3 knee replacements Appendectomy (66670) 08/29/2014 pneumonia 01/06/24 open heart surgery 12/09/2024 pacemaker 12/2024 Hospitalization History Reason Date(Month/Year) open heart surgery 12/09/24 to 01/13/25
[2025-04-09 19:07] VITALS: BP 120/77; PULSE 77; RESP 18; TEMP 36.5; O2SAT 99
[2025-04-09 20:53] VITALS: BP 153/80; PULSE 67; RESP 18; O2SAT 100
[2025-04-09 22:51] VITALS: BP 149/91; PULSE 70; RESP 20; O2SAT 100
[2025-04-09] MEDS: LIDOCAINE 5% PATCH 1 PATCH TRANSDERM (22:51)
--- NOTE | 2025-04-09 22:57 | ED.LOWEXIN ---
HPI - Extremity Injury (Lower) General Chief Complaint: Extremity Injury, Lower Stated Complaint: FALL, CALF HEMATOMA Time Seen by Provider: 04/09/25 21:57 History of Present Illness HPI Narrative: 64-year-old female presenting to the emergency department with left lower extremity infection. She states that she recently injured her left leg after striking it against an object. She started developing a hematoma immediately as she is on Eliquis for her cardiac history. Endorses having some redness and swelling and developing cellulitis shortly thereafter. She saw her caustic pump operator today for routine follow-up appointment and mention this and he put her on Keflex to treat the infection. Patient states she is having some worsening pain in the left anterior fallon area with redness and overlying bruising. She is worried that there could be an abscess there. Did not get any imaging done of the extremity during the injury. She has had other previous injuries and falls with a left hand fracture currently being scheduled for operation by Orthopedic surgery/Hand surgery as well as some injury to her right wrist that was unremarkable. Denies any new injury after the fact. No systemic features such as fever, chills. Symptoms isolated to the left lower anterior fallon region. No drainage or bleeding/blistering. No streaking redness. No other complaints. Related Data Home Medications ?Medication ?Instructions ?Recorded ?Confirmed ?Last Taken ?Type Biotin Hyaluric Acid 10,000 mcg PO DAILY 05/21/23 04/09/25 09/30/24 History Iron 65 Mg W Vit C 270mg 65 mg PO DAILY 05/21/23 04/09/25 10/01/24 History lamotrigine 100 mg tablet 100 mg PO DAILY 02/23/24 04/09/25 10/01/24 History lorazepam 0.5 mg tablet 0.5 mg PO PRN PRN Anxiety 02/23/24 04/09/25 09/29/24 History calcium 315 mg (as 1 tablet PO DAILY 03/06/24 04/09/25 09/29/24 History citrate)-vitamin D3 5 mcg (200 unit) tablet (Calcium Citrate + D) acetaminophen 500 mg tablet 500 mg PO .PRN PRN pain 09/18/24 04/09/25 10/06/24 History pkpzbsmn-mzpbdzxe-aylv 45 mg-folic 1 cap PO DAILY 09/18/24 04/09/25 10/01/24 History acid 800 mcg-vit K 120 mcg capsule (Bariatric Multivitamins) vitamin c 1000mg + Calc carbnt 52mg See Rx Instructions BYMOUTH 09/18/24 04/09/25 10/01/24 History .COMPLEX methocarbamol 750 mg tablet 750 mg PO .COMPLEX PRN spasms 10/17/24 04/09/25 Unknown History aspirin 81 mg tablet,delayed 81 mg PO DAILY 02/03/25 04/09/25 Unknown History release (Adult Low Dose Aspirin) carboxymethylcellulose sodium 0.5 1 drp EACH EYE DAILY PRN dry eye(s) 02/03/25 04/09/25 Unknown History % eye drops in a dropperette (Refresh Plus) cyanocobalamin (vitamin B-12) 500 1,000 mcg PO DAILY 02/03/25 04/09/25 Unknown History mcg tablet furosemide 20 mg tablet (Lasix) 20 mg PO QAM 02/03/25 04/09/25 Unknown History loratadine 10 mg tablet (Claritin) 10 mg PO DAILY 02/03/25 04/09/25 Unknown History hydroxyzine HCl 10 mg tablet 10 mg PO TID PRN sleep 02/09/25 04/09/25 Unknown History hydroxyzine HCl 50 mg tablet 50 mg PO QHS 02/09/25 04/09/25 Unknown History cetirizine 10 mg tablet 10 mg PO DAILY PRN allergy symptoms 02/26/25 04/09/25 Unknown History docusate sodium 100 mg capsule 100 mg PO HS 02/26/25 04/09/25 Unknown History (Colace) sacubitril 24 mg-valsartan 26 mg 1 tablet PO DAILY 02/26/25 04/09/25 Unknown History tablet (Entresto) Allergies Allergy/AdvReac Type Severity Reaction Status Date / Time Penicillins Allergy Intermediate Hives Verified 04/09/25 18:53 tetracycline Allergy Unknown Unknown Verified 04/09/25 18:53 amoxicillin (From Augmentin) Allergy Hives Verified 04/09/25 18:53 clavulanic acid (From Allergy Hives Verified 04/09/25 18:53 Augmentin) Review of Systems Review of Systems: As reviewed above in [facility] Past Medical History Medical History Wrist fracture Chronic anticoagulation Encounter to establish care Hospital discharge follow-up Achilles tendinitis of left lower extremity Morbid obesity due to excess calories Tear of biceps muscle Obesity Peripheral neuropathy Restless leg syndrome Lumbosacral spondylosis Dorsalgia Low TSH level Thyrotoxicosis, unspecified with thyrotoxic crisis or storm Chronic post-traumatic stress disorder (PTSD) Hyperlipidemia Essential hypertension Depression Obstructive sleep apnea of adult Osteoarthritis Moderate aortic stenosis Anemia Cervical radiculopathy Vitamin D deficiency Anxiety Surgical History Surgical History History of left knee replacement Hx of appendectomy 08/27/2014 History of lumpectomy of left breast H/O abdominal hysterectomy With unilateral oophorectomy History of total right knee replacement (TKR) Hx of cardiac cath Nonobstructive CAD by cath 10/18/2010-normal m, cx. 30% LAD/RCA (per [facility] note) H/O gastric bypass Social History Social History Smoking status: Never smoker Second hand tobacco smoke exposure: No Alcohol intake: never Drinks per week: 0 Alcohol use details: RARE, ONE A MONTH Substance use: never Substance use type: does not use Do You Feel Safe in your Home?: Yes Lack of Transportation: No Lack of Food: Sometimes True Current Housing: I Have Housing Concerned About Future Housing: YES Difficulty Paying Gas/Electric Bills: YES Difficulty Paying for Meds: No Currently Unemployed: No Education: Bachelor's Degree Difficulty w/ Childcare or Family Care: No Living arrangements: with family Spiritual care concerns: No Exam Narrative: GENERAL: [Well-appearing, well-nourished, and in no acute distress.] HEAD: [Normocephalic, atraumatic.] EYES: [PERRLA and EOMI.] ENT: Nares clear, no rhinorrhea or epistaxis. Mucous membranes moist. NECK: Supple. CHEST: [Clear to auscultation. No respiratory distress.] HEART: [Regular rate and rhythm]. No murmur heard. [Normal peripheral pulses.] ABDOMEN: [Soft, nondistended], [nontender], [No rigidity or guarding] EXTREMITIES: Left anterior lower extremity at the medial fallon has a large area of hematoma and bruising. Around the area is some signs of cellulitis with redness and warmth/tenderness but no streaking or distal/proximal extension. There appears to be a small area of induration and fluctuance but no purulent drainage or blistering. Distal neuro vasculature is intact, warm extremity, 2+ pulses, able to wiggle the toes and plantar and ankle dorsiflex. No proximal injury or extension above the fallon. SKIN: Warm, dry, no rash. NEURO: [No focal deficits]. Alert and oriented [x3.] PSYCH: [Normal mood and affect.] Course Vital Signs Vital signs: Vital Signs Temperature 36.5 C 04/09/25 19:07 Pulse Rate 77 04/09/25 19:07 Respiratory Rate 18 04/09/25 19:07 Blood Pressure 120/77 04/09/25 19:07 Pulse Oximetry 99 04/09/25 19:07 Oxygen Delivery Room Air 04/09/25 19:07 Temperature 36.5 C 04/09/25 19:07 Pulse Rate 69 04/10/25 01:20 Respiratory Rate 22 H 04/10/25 01:20 Blood Pressure 160/92 H 04/10/25 01:20 Pulse Oximetry 100 04/10/25 01:20 Oxygen Delivery Room Air 04/09/25 20:53 MDM - Extremity Injury (Lower) MDM Narrative Medical decision making narrative: 64-year-old female presenting to the emergency department with left lower extremity infection. She states that she recently injured her left leg after striking it against an object. She started developing a hematoma immediately as she is on Eliquis for her cardiac history. Endorses having some redness and swelling and developing cellulitis shortly thereafter. She saw her caustic pump operator today for routine follow-up appointment and mention this and he put her on Keflex to treat the infection. Patient states she is having some worsening pain in the left anterior fallon area with redness and overlying bruising. She is worried that there could be an abscess there. Did not get any imaging done of the extremity during the injury. She has had other previous injuries and falls with a left hand fracture currently being scheduled for operation by Orthopedic surgery/Hand surgery as well as some injury to her right wrist that was unremarkable. Denies any new injury after the fact. No systemic features such as fever, chills. Symptoms isolated to the left lower anterior fallon region. No drainage or bleeding/blistering. No streaking redness. No other complaints. Left anterior lower extremity at the medial fallon has a large area of hematoma and bruising. Around the area is some signs of cellulitis with redness and warmth/tenderness but no streaking or distal/proximal extension. There appears to be a small area of induration and fluctuance but no purulent drainage or blistering. Distal neuro vasculature is intact, warm extremity, 2+ pulses, able to wiggle the toes and plantar and ankle dorsiflex. No proximal injury or extension above the fallon. Patient is hemodynamically stable and afebrile. Symptoms appear to be a hematoma and some overlying cellulitis but infected abscess or infected hematoma not excluded. No systemic features and she is not septic or ill appearing. CT scan obtained to identify any osseous abnormalities or extension of the subcutaneous injury. Discussed treatment options including potential incision and drainage at bedside if superficial and amenable verses surgery referral. Patient given topical lidocaine as she has multiple allergies and cannot take NSAIDs. Patient CT scan was independently reviewed and does appear to have some hematoma into the anterior fallon, no loculated fluid collections per radiology. No radiopaque foreign bodies or subcutaneous emphysema. Some fat stranding along the distal calf presumed to be edema or posttraumatic hemorrhagic products such as blood consistent with exam findings. No intramuscular abnormality. No abnormality of the osseous structures. Patient will be switched over to Bactrim and told to stop taking Keflex to allow for appropriate treatment of her overlying cellulitis but no significant drainable abscess or superficial fluid collection so she will have to follow up on outpatient basis for definitive treatment if not getting better with the antibiotics and appropriate timeline. Medical Records Attestation: I reviewed the patient's medical records. Lab Data Attestation: I reviewed the patient's lab results. Imaging Data Attestation: I personally reviewed and interpreted this imaging study as follows: My impression: Hyperdense hematoma, no loculated fluid collections. No radiopaque foreign bodies or osseous abnormality. Discharge Plan Discharge Clinical Impression: Traumatic hematoma of lower leg, Cellulitis Patient Disposition: Home Condition: Stable Instructions: Antibiotic Form Additional Instructions: Your CT scan shows a hematoma in your left anterior fallon from the injury. This is a collection of blood but no active bleeding or muscular damage or bony damage. You have some anterior cellulitis around the hematoma but no identifiable drainable fluid collections under the skin or near the muscle/bones. We need to change the antibiotics to cover more broadly and we will prescribe you Bactrim to take twice daily for 7 days. Do not take anymore Keflex. Follow-up with regular primary care provider if you have worsening signs or symptoms of infection or return to the ER with any emergent concerns. Patient Language: Telugu Prescriptions: New sulfamethoxazole-trimethoprim [Bactrim DS] 800-160 mg tablet 1 tablet PO Q12H Qty: 14 0RF No Action Biotin Hyaluric Acid 10,000 mcg PO DAILY Iron 65 Mg W Vit C 270mg 65 mg PO DAILY calcium citrate-vitamin D3 [Calcium Citrate + D] 315 mg-5 mcg (200 unit) Tablet 1 tablet PO DAILY lorazepam 0.5 mg tablet 0.5 mg PO PRN PRN (Reason: Anxiety) lamotrigine 100 mg tablet 100 mg PO DAILY sacubitril-valsartan [Entresto] 24-26 mg tablet 1 tablet PO DAILY docusate sodium [Colace] 100 mg capsule 100 mg PO HS cetirizine 10 mg tablet 10 mg PO DAILY PRN (Reason: allergy symptoms) Eliquis 5 mg tablet 5 mg PO BID Qty: 180 0RF atorvastatin [Lipitor] 20 mg tablet 20 mg PO DAILY Qty: 90 2RF metoprolol succinate 25 mg tablet extended release 24 hr 25 mg PO DAILY Qty: 90 2RF spironolactone [Aldactone] 25 mg tablet 25 mg PO DAILY Qty: 90 2RF aspirin [Adult Low Dose Aspirin] 81 mg tablet,delayed release (DR/EC) 81 mg PO DAILY cyanocobalamin (vitamin B-12) 500 mcg tablet 1,000 mcg PO DAILY furosemide [Lasix] 20 mg tablet 20 mg PO QAM loratadine [Claritin] 10 mg tablet 10 mg PO DAILY carboxymethylcellulose sodium [Refresh Plus] 0.5 % dropperette 1 drp EACH EYE DAILY PRN (Reason: dry eye(s)) hydroxyzine HCl 10 mg tablet 10 mg PO TID PRN (Reason: sleep) hydroxyzine HCl 50 mg tablet 50 mg PO QHS cephalexin 500 mg capsule 500 mg PO Q12H Qty: 20 0RF bupropion HCl [Wellbutrin SR] 100 mg tablet sustained-release 12 hr 100 mg PO BID Qty: 180 1RF duloxetine 60 mg capsule,delayed release(DR/EC) 60 mg PO DAILY Qty: 90 1RF vitamin c 1000mg + Calc carbnt 52mg See Rx Instructions BYMOUTH .COMPLEX Rx Instructions: 1 orally; acetaminophen 500 mg tablet 500 mg PO .PRN PRN (Reason: pain) Bariatric Multivitamins 45 mg iron- 800 mcg-120 mcg capsule 1 cap PO DAILY methocarbamol 750 mg tablet 750 mg PO .COMPLEX PRN (Reason: spasms) Rx Instructions: 750 mg orally PRN; nitroglycerin 0.4 mg tablet, sublingual 0.4 mg sublingual Q5-15M PRN (Reason: chest pain) Qty: 10 0RF Rx Instructions: do not exceed 3 doses per episode omeprazole 40 mg capsule,delayed release(DR/EC) 40 mg PO DAILY Qty: 90 1RF fluticasone propionate 50 mcg/actuation spray,suspension 2 spray intranasal DAILY Qty: 48 1RF Rx Instructions: administer into each nostril pregabalin [Lyrica] 75 mg capsule 75 mg PO BID Qty: 180 2RF Follow-up/Referrals: Pacheco Mejia DO [Primary Care Provider, Internal Medicine] Time of Disposition: 00:46
[2025-04-09 22:58] VITALS: BP 149/91; O2SAT 100
[2025-04-09 23:01] VITALS: BP 155/87; O2SAT 100
--- OUTSIDE RECORDS SUMMARY | 2025-04-09 23:08 | XMS_ITS | Encounter Summary ---
Author Organization [facility] Address [address] [place] [address] Phone Care Team Providers Care Van Loader Name Role Phone Pacheco Mejia DO Primary Care Provider [phone] Justin Herron DO Unavailable [phone] [place] Mortensen MD Unavailable Unknown, Notinfile Unavailable Unavailable Shelton Marcelo MD Unavailable Encounter Details Date Type Department Care Team (Late st Contact Info) Description 04/01/2025 Telephone [facility] Medicine Cardiology [address] [facility] Advanced Medicine 8th [place] [address] [place] [id number] Shola Cha MD [address] [facility] [address] [place] [address] Social History Tobacco Use Types Packs/Day Years [...] materials from doctor or pharmacy Never 01/26/2025 [facility] Utilities Answer Date Recorded In the [...] often do you attend chur ch or restorationist services? 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 Herron. She has been released to them. * Telephone Encounter - Marian Villeda RN - 04/09/2025 1:08 PM CDT I spoke with staff at Dr. Herron's office. Leyla is an established patient with them. I let them know that we will need Leyla to call us to give permission to release her pacemaker to them. I let them know we have reached out multiple times to have her call us back. They will have her call us. * Telephone Encounter - Codi Pepe - 04/09/2025 12:59 PM CDT Jovita with Dr. Herron's office called stating patient is scheduled to come in for a visit in 30 mins.Please call [phone] opt 2 to discuss transfer of device care. Informed Jovita office needs permission from patient and have been unable to reach her. * Telephone Encounter - Marian Villeda, JUANITA - 04/01/2025 9:43 AM CDT I called patient to leave a message to see if she would like to transfer her device out. We saw heryesterday in clinic and there was no mention that she wanted to transfer out. I do see that a request to transfer to [facility] was made on [facility] but will need [...] their office. She can be reached at [phone] opt 2. documented in this encounter Plan of Treatment Not on file documented as of this encounter Visit Diagnoses Not on filedocumented in this encounter Care Teams Van Loader Relationship Specialty Start Date End Date Pacheco Mejia DO PCP - General Internal Medicine 01/22/23 Justin Herron DO [address] [address] Referring Physician Cardiology 10/14/24 Indiana Mortensen MD [id number] [place] [address] Cardiothoracic Surgery 01/02/25 Unknown, Notinfile 01/02/25 Shelton Marcelo MD [address] [facility] [id number] [place] [address] Consulting Physician Physical Medicine and Rehabilitation 01/14/25 documented as of this encounter
--- OUTSIDE RECORDS SUMMARY | 2025-04-09 23:08 | XMS_ITS ---
Author Name Maximo Mckinney DO Address [address] [place] [address] Phone [phone] Organization [facility] Care Team Providers Care Joint Runner Name Role Phone Maximo Mckinney Unavailable [phone] Primarily Home Tier 2 RN (STL), Sigrid Stewart U navailable Unavailable Latisha Andrade Courtney Unavailable Unavail able Primarily Home Tier 1 RN (STL), Sigrid Bermudez navailable Unavailable ELODIA FORTE Unavailable [phone] TIMOTHY CLIFFORD Unavailable [phone] Reason for Referral Not Available Allergies, adverse [...] tablet orally daily 11-16-13 No Data Available Nauvoo-3 Fish Oil 1200 mg Cap 1 Capsule [...] Recommend diet and exercise if approved by [facility] Dyspnea on exertion Active 2024-10-27 N/A [place] [...] medical decision making, total time 30-44 minutes [id number] 2024-10-27 No Data Available No Data Availa [...] day supply 2024-10-27 Recommend to speak w [facility] PCP about physical therapy Health Concerns Date [...]
--- OUTSIDE RECORDS SUMMARY | 2025-04-09 23:08 | XMS_ITS | Clinical Summary ---
Author Organization [facility] Elaine Cunha Address [address] [place] [address] Care Team Providers Care Supervisor Sample Name Role Phone GlynnPacheco michelle Ravinder BILLS [...] bedtime. Active fluticasone propionate (FLONASE) 50 mcg/spray [place], Suspension nasal inhaler USE 2 SPRAY(S) IN [...] Comments Blood Pressure 129/70 05/30/2023 10:21 AM DIRECT CASTING OPERATOR Pulse 93 05/30/2023 10:21 AM DIRECT CASTING OPERATOR Temperature 35.7 C (96.2 F) 05/30/2023 10:21 AM DIRECT CASTING OPERATOR Respiratory Rate 12 05/30/2023 10:21 AM DIRECT CASTING OPERATOR Oxygen Saturation 96% 05/30/2023 10:21 AM DIRECT CASTING OPERATOR Inhaled Oxygen Concentration - - Weight 134.3 kg (296 lb) 05/30/2023 10:21 AM DIRECT CASTING OPERATOR Height 160 cm (5' 3) 05/30/2023 10:21 AM DIRECT CASTING OPERATOR Body Mass Index 52.43 05/30/2023 10:21 AM DIRECT CASTING OPERATOR Plan of Treatment Health Maintenance Due Date [...] (1 - 1-dose 75+ series) 2037 Insurance [facility] MEDICAID [place] Care Teams Supervisor Sample Relationship Specialty Start Date End Date Pacheco Mejia DO [address] [facility] [address] [place] [id number] PCP - General Internal Medicine 02/16/23
--- OUTSIDE RECORDS SUMMARY | 2025-04-09 23:08 | XMS_ITS | Clinical Summary ---
Author Organization [facility] Address [facility] [place] [address] Care Team Providers Care Landfill Gas Collection Operator Name Role Phone Pacheco Mejia DO Primary Care Provider [phone] Encounters Date Type Department Care Team Description 01/12/2025 Scan [facility] [place] [address] [place] [address] [place] [id number] Scanned, [facility] from Last 3 Months [...] complete this topic Insurance [employer] Care Teams Landfill Gas Collection Operator Relationship Specialty Start Date End Date Pacheco Mejia DO [address] [facility] [address] [place] [address] PCP - General INTERNAL MEDICINE 01/12/25
--- OUTSIDE RECORDS SUMMARY | 2025-04-09 23:08 | XMS_ITS | Encounter Summary ---
Author Organization [facility] Address [address] [place] [address] Phone Care Team Providers Care Philosophy Professor Name Role Phone Pacheco Mejia DO Primary Care Provider [phone] Justin Herron DO Unavailable Indiana Mortensen MD Unavailable [phone] Unknown, Notinfile Unavailable Unavailable Shelton Marcelo MD Unavailable Encounter Details Date Type Department Care Team (Late st Contact Info) Description 04/09/2025 Telephone [facility] Medicine Cardiology [address] [facility] Advanced Medicine 8th [place] [address] [place] [address] Shola Cha MD [address] [facility] [address] [place] [address] Social History Tobacco Use Types Packs/Day Years [...] materials from doctor or pharmacy Never 01/26/2025 [facility] Utilities Answer Date Recorded In the past [...] often do you attend chur ch or caodaism services? Never 12/22/2024 Do you belong to any clubs o r organizations such as sikh groups, unions, fraternal or athletic groups, or [...] any time in the past 12 m [facility], were you homeless or living in a half-way (including now)? No 12/22/2024 Personal Safety Answer Date Recorded Have you ever been in or are you currently in a harmful physical or emotional relationship or is someone making you feel afraid or unsafe? 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 Herron on [facility]. * Telephone Encounter - Leyla Gary - 04/09/2025 1:41 PM CDT Starla Pt calling to speak with a nurse in regards to seeing if her remote monitoring could be released toDr. Herron documented in this encounter Plan of Treatment Not on file documented as of this encounter Visit Diagnoses Not on filedocumented in this encounter Care Teams Philosophy Professor Relationship Specialty Start Date End Date Pacheco Mejia DO PCP - General Internal Medicine 01/22/23 Justin Herron DO [address] [facility] [address] [place] [address] Referring Physician Cardiology 10/14/24 Indiana Mortensen MD [id number] [place] [address] Cardiothoracic Surgery 01/02/25 Unknown, Notinfile 01/02/25 Shelton Marcelo MD [address] [id number] [place] [address] Consulting Physician Physical Medicine and Rehabilitation 01/14/25 documented as of this encounter
--- OUTSIDE RECORDS SUMMARY | 2025-04-09 23:08 | XMS_ITS | Clinical Summary ---
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 EP adjusted TVP and again got capture. 62: TVP no longer capturing, EP attending to bedside and placed a temp perm pacemaker - [place] scientific RV lead externalized perm pacemaker in [...] and placed a temp perm pacemaker - [place] scientific RV lead externalized perm pacemaker in [...] Encounters Date Type Department Care Team Description 04/09/2025 Telephone [facility] Medicine Cardiology [facility] 8th [place] [address] [place] [address] Shola Cha MD 04/01/2025 Telephone [facility] Cardiology [address] [place] [address] [place] [address] [place] [address] Shola Cha MD 03/31/2025 3:30 PM CDT Office Visit [facility] Medicine Cardiology [address] [place] [address] [place] [address] [place] [address] Shola Cha MD Bradycardia (Primary Dx) 03/31/2025 3:00 PM CDT Ancillary Procedure [facility] Medicine Cardiology [facility] [address] [place] [address] [place] [address] Complete heart block (HCC) [I44.2] (Primary Dx); Fitting or adjustment of cardiac pacemaker 02/09/2025 1:15 PM CDT Office Visit [facility] Cardiothoracic Surgery [facility] 8th Floor [address] Room [address] [place] [address] Naz Gordillo NP S/P AVR (aortic valve replacement) (Primary Dx); S/P CABG (coronary artery bypass graft) 02/09/2025 12:17 PM CDT - 02/09/2025 11:59 PM CDT Hospital Encounter [facility] [address] [place] [address] Status post cardiac surgery Discharge Disposition: Discharge to home or self care 02/08/2025 Orders Only [facility] Medicine Cardiology [address] [facility] 8th [place] [address] [place] [address] Shola Cha MD 01/26/2025 Home Care Visit [address] [place] [address] Tiffany Santiago RN SN VIRTUAL OASIS DISCHARGE 01/26/2025 Home Care Visit [address] [place] [address] Jessica Carver RN SN TRIAGE ENCOUNTER 01/26/2025 Home Care Visit [address] [place] [address] Peter Hebert, PT TELEPHONE ENCOUNTER 01/22/2025 Home Care Visit [address] [place] [address] Tiffany Santiago RN TELEPHONE ENCOUNTER 01/22/2025 Telephone [facility] Cardiothoracic Surgery [address] [facility] 8th Floor [address] Room [address] [place] [address] Brigitte Sanchez, IRMA 01/21/2025 12:00 PM CDT Home Care Visit [address] [place] [address] Tiffany Santiago RN SN HOME VISIT 01/20/2025 3:00 PM CDT Home Care Visit [address] [place] [address] Peter Hebert, PT PT INITIAL EVALUATION 01/20/2025 11:30 AM CDT Home Care Visit [address] [place] [address] April Sr, OT OT INITIAL EVALUATION 01/18/2025 1:13 PM CDT - 01/18/2025 11:59 PM CDT Hospital Encounter [facility] [address] [place] [address] Discharge Disposition: Discharge to home or self care 01/18/2025 1:00 PM CDT Home Care Visit [address] [place] [address] Alana Kim RN SN OASIS START OF CARE 01/18/2025 Plan of Care Documentation [address] [place] [address] 01/17/2025 Home Care Visit [address] [place] [address] Candelaria Silverio, JUANITA TELEPHONE ENCOUNTER 01/15/2025 Telephone [facility] Cardiology [address] [facility] 8th [place] [address] [place] [address] Shola Cha MD 01/14/2025 Telephone [facility] Home Care Services [address] [facility] [address] [place] [address] Alba Rodriguez, RN 01/14/2025 Telephone [facility] [address] [place] [address] Marian Crowell RN 01/14/2025 Travel 01/14/2025 Telephone [facility] [address] [facility] [address] [place] [address] Alba Rodriguez, RN 01/14/2025 Telephone [facility] [address] [facility] [address] [place] [address] Alba Rodriguez, RN 01/14/2025 Telephone [facility] [address] [facility] [address] [place] [address] Alba Rodriguez, RN 01/14/2025 Telephone [facility] [address] [facility] [address] [place] [address] Alba Rodriguez, RN 01/13/2025 Telephone [facility] Home Care [facility] [address] [facility] [address] [place] [address] Alba Rodriguez, RN 01/13/2025 Telephone [facility] [address] [facility] [address] [place] [phone] Alba Rodriguez, RN 01/12/2025 Telephone [facility] [address] [place] [address] [place] [address] Alba Rodriguez, RN 01/12/2025 Orders Only [facility] [phone] Unknown, Notinfile 01/12/2025 Telephone [facility] Home Care [facility] [address] [facility] [address] [place] [address] Alba Rodriguez, RN 01/12/2025 Telephone [facility] [address] [place] [address] [place] [address] Alba Rodriguez, RN 01/08/2025 Orders Only [facility] [phone] Unknown, Notinfile 01/08/2025 Telephone [facility] Medicine Cardiology [address] [facility] 8th [place] [address] [place] [address] Brigitte Sanchez, ENVIRONMENTAL PROFESSIONAL 01/07/2025 1:10 PM CDT - 01/07/2025 11:59 PM CDT Hospital Encounter [facility] [address] [place] [address] S/P AVR (aortic valve replacement) Discharge Disposition: Discharge to home or self care 01/07/2025 8:30 AM CDT Ancillary Procedure [facility] Medicine Cardiology [address] [facility] [address] [place] [address] Complete heart block (HCC) [I44.2] (Primary Dx); Fitting or adjustment of cardiac pacemaker from Last 3 Months Immunizations Immunization Administration [...] ELECTRODES (GEN AND LEADS, NEW OR REPLACE) 46093; Surgeon: Shola Cha MD; Location: [facility] EP [facility]; Service: Cardiovascular; Laterality: N/A; Medical [...] materials from doctor or pharmacy Never 01/26/2025 [facility] Utilities Answer Date Recorded In the [...] often do you attend chur ch or christianity services? Never 12/22/2024 Do you belong to any clubs o r organizations such as taoist groups, unions, fraternal or athletic groups, or [...] any time in the past 12 [facility], were you homeless or living in a care home (including now)? No 12/22/2024 Personal Safety Answer Date Recorded Have you ever been in or are you currently in a harmful physical or emotional relationship or is someone making you feel afraid or unsafe? Denies 12/09/2024 Comments No Sex and Gender Information Value Date Recorded Sex Assigned at Not on file Legal Sex Female 3:02 PM [employer]CHOOL PH[employer]ER[employer] Gender Identity Female 01/25/2023 3:47 PM CDT [...] 01/24/2024, 04/16 Medical Devices Implanted Type Area Manager Pharmacy Device Identifier Shelf Expiration Date Model / Serial / Lot DNage Scientific Nikolai Lead [id number] Endocardial Pacing Mr Is-1 Bipolar Connection 7841-12/16/2024 Implanted:2024 (Quantity not on file) Lead Right: Ventricle 04/29/2026 / [id number] / Medtronic Inc Capsurefix Novus 6.2fr 2mm 52cm Bipolar Screw In Implantable Latex Free 5076-52 - [id number] - [id number] Implanted:Qty: 1 on 12/31/2024 by Shola Cha MD at [facility] Lead Right: Ventricle Medtronic Inc 10/09/2026 5076-52 / [id number] 12V / [id number] 12V Medtronic Inc Capsurefix Novus 6.2fr 2mm 45cm Bipolar Screw In Implantable 5076-45 - [id number] - [id number] Implanted:Qty: 1 on 12/31/2024 by Shola Cha MD at [facility] Lead Right: Atria Medtronic Inc 10/10/2026 5076-45 / [id number] 73V / [id number] 73V Medtronic Inc Tyrx Absorbable Antibacterial Envelope Med 2.7x2.5in [id number] - [id number] - [id number] Implanted:Qty: 1 on 12/31/2024 by Shola Cha MD at [facility] Other - see comments Right: Chest Wall Medtronic Inc 09/25/2025 [id number] 2 / [id number] / [id number] Description:Tyrex Medtronic Inc [place] S Mri Surescan 50.8x46.6mm 2 Chamber 7.4mm Pacemaker 22.5gm [id number] - [id number] - [id number] Implanted:Qty: 1 on 12/31/2024 by Shola Cha MD at [facility] Pacemaker Right: Chest Wall Medtronic Inc 04/28/2026 [id number] / [id number] 65G / [id number] 65G Prince Artwardly Nikolai Patch Cardiovascular 14x8cm Samantha-Guard [place] [employer] [id number] - [id number] - [id number] Implanted:Qty: 1 on 12/09/2024 by Indiana Mortensen MD at [facility] Chest Prince [employer] [id number] 05/27/2026 [id number] / [id number] / [id number] [employer] Inspiris Resilia Leaflet Sewing Ring 27mm Valve Aortic Bovine 70012n01 - [id number] - [id number] Implanted:Qty: 1 on 12/09/2024 by Indiana Mortensen MD at [facility] Heart [employer] [id number] 08/27/2029 [id number] 7 / [id number] / Arthrex Inc Device Closure Fibertape Sternal Cerclage Blunt Needle Ar-7289 - [id number] Implanted:Qty: 1 on 12/09/2024 by Indiana Mortensen MD at [facility] N/A: Sternum Arthrex Inc 05/15/2029 AR-7289 / / [id number] Esme [employer] Inc Plate Bone Low Profile 6 Hole O Shape Sternum Ti 115.104.06 - [id number] Implanted:Qty: 1 on 12/09/2024 by Gordy Bourgeois MD at [facility] N/A: Sternum [employer]me [employer] Inc 115.104 .06 / / Esme [employer] Inc Plate Bone Low Profile 6 Hole H Shape Sternum Ti 115.102.06 - [id number] Implanted:Qty: 2 on 12/09/2024 by Indiana Mortensen MD at [facility] N/A: Sternum [employer] Inc 115.102 .06 / / Esme [employer] Inc Screw Bone Slf Drl Full Thread Locking 3.5x16mm Ti 100.035.16 - [id number] Implanted:Qty: 8 on 12/09/2024 by Indiana Mortensen MD at [facility] N/A: Sternum [employer] Inc 100.035 .16 / / Esme [employer] Inc Screw Bone Slf Drl Full Thread Locking 3.5x18mm Ti 100.035.18 - [id number] Implanted:Qty: 4 on 12/09/2024 by Gordy Bourgeois MD at [facility] N/A: Sternum [employer] Inc 100.035 .18 / / Esme [employer] Inc Screw Bone Slf Drl Full Thread Locking 3.5x20mm Ti 100.035.20 - [id number] Implanted:Qty: 6 on 12/09/2024 by Gordy Bourgeois MD at [facility] N/A: Sternum [employer]me [employer] Inc 100.035 [...] CDT Fitting or adjustment of cardiac pacemaker from Last 3 Months Results * XR [...] appropriate. No short V-V intervals. Presenting Rhythm (MI) Atrial Sensing-Ventricular Sensing (-VS) --- /VS (SR) [...] andappropriate. No short V-V intervals. Presenting Rhythm (MI) Atrial Sensing-Ventricular Sensing (-VS) --- /VS (SR) [...] DO LAB BLOOD ORDERABLES Final Result [facility] Department [place] [address] * eGFR (01/18/2025 1:13 PM CDT) eGFR [...] Mejia DO LAB BLOOD ORDERABLES Final Result [facility] Department [place] [address] * (ABNORMAL) Differential, auto (01/18/2025 1:13 PM CDT) Neutrophil abs 6.51(H) 1.50 - 6.50 K/cumm Imm gran abs 0.04 0.00 - 0.10 K/cumm [facility] Lymphocyte abs 0.92 0.80 - 3.30 K/cumm [facility] Monocyte abs 0.48 0.20 - 0.80 K/cumm [facility] Eosinophil abs 0.33 0.00 - 0.50 K/cumm [facility] Basophil abs 0.08 0.00 - 0.10 K/cumm [facility] Neutrophil pct 77.9 % [facility] Comment: Interpretive Data Percent cell count reference ranges are not reported, since discordance with absolute values may lead to misinterpretation of CBC data. Current Interpretive Data was last revised on 2017. Imm gran pct 0.5 % [facility] Comment: Interpretive Data Percent cell count reference ranges are not reported, since discordance with absolute values may lead to misinterpretation of CBC data. Current Interpretive Data was last revised on 2017. Lymphocyte pct 11.0 % [facility] Comment: Interpretive Data Percent cell count reference ranges are not reported, since discordance with absolute values may lead to misinterpretation of CBC data. Current Interpretive Data was last revised on 2017. Monocyte pct 5.7 % [facility] Comment: Interpretive Data Percent cell count reference ranges are not reported, since discordance with absolute values may lead to misinterpretation of CBC data. Current Interpretive Data was last revised on 2017. Eosinophil pct 3.9 % [facility] Comment: Interpretive Data Percent cell count reference ranges are not reported, since discordance with absolute values may lead to misinterpretation of CBC data. Current Interpretive Data was last revised on 2017. Basophil pct 1.0 % [facility] Comment: Interpretive Data Percent cell count reference ranges are not reported, since discordance with absolute values may lead to misinterpretation of CBC data. Current Interpretive Data was last revised on 2017. Blood 01/18/2025 1:13 PM CDT 01/18/2025 2:54 PM CDT Pacheco Mejia DO LAB BLOOD ORDERABLES Final Result [facility] Department [place] [address] * Basic metabolic panel without glucose (01/18/2025 1:13 PM CDT) Sodium 139 135 - 145 mmol/L Potassium, pl 4.6 3.3 - 4.9 mmol/L [facility] Chloride 105 97 - 110 mmol/L [facility] CO2 25 22 - 32 mmol/L [facility] Anion gap 9 2 - 15 mmol/L [facility] BUN 22 6 - 25 mg/dL [facility] Creatinine 0.89 0.60 - 1.10 mg/dL [facility] Calcium 9.3 8.5 - 10.3 mg/dL [facility] Blood 01/18/2025 1:13 PM CDT 01/18/2025 2:54 PM CDT Pacheco Mejia DO LAB BLOOD ORDERABLES Final Result Performing Organization Address [facility] de Phone Number [facility] [place] [address] * (ABNORMAL) CBC with auto differential (01/18/2025 1:13 PM CDT) [facility] WBC 8.36 3.80 - 9.90 K/cumm Hgb 11.2(L) 11.9 - 15.5 g/dL [facility] Hct 35.2(L) 35.6 - 45.5 % [facility] Plt 267 150 - 400 K/cumm [facility] MPV 9.0(L) 9.1 - 12.3 fL [facility] RBC 4.04 3.90 - 5.20 M/cumm [facility] MCV 87.1 81.3 - 96.4 fL [facility] MCH 27.7 27.1 - 33.3 pg [facility] MCHC 31.8(L) 32.3 - 35.7 g/dL [facility] RDW CV 15.8(H) 11.1 - 14.9 % [facility] RDW SD 50.8(H) 35.7 - 48.1 fL [facility] NRBC abs 0.00 0.00 - 0.01 K/cumm [facility] Blood 01/18/2025 1:13 PM CDT 01/18/2025 2:54 PM CDT Pacheco Mejia DO LAB BLOOD ORDERABLES Final Result Performing Organization Address [facility]/ZIP Co de Phone Number [facility] [place] [address] * (ABNORMAL) CS GLUCOSE (01/12/2025 10:04 AM CDT) Glucose 57(L) 70 - 199 mg/dL [facility] Comment: Interpretive Data Fasting glucose >/= 126 [...] was last revised 2022. Testing performed by: [facility], [address] [facility], [place]., [address] Blood 01/12/2025 10:0 4 AM CDT 01/12/2025 1:57 PM CDT us Notinfile Unknown LAB BLOOD ORDERABLES Final Res ult [facility] Department [place] [address] * (ABNORMAL) eGFR (01/12/2025 10:04 AM CDT) eGFR 53(L) >=60 mL/min/1. 73 m2 [facility] Comment: Interpretive Data Reference Interval Normal >/= [...] was last reviewed 2021. Testing performed by: [facility], [address] [place]., [address] Blood 01/12/2025 10:0 4 AM CDT 01/12/2025 2:11 PM CDT us Notinfile Unknown LAB BLOOD ORDERABLES Final Res ult [facility] Department [place] [address] * (ABNORMAL) Differential, auto (01/12/2025 10:04 AM CDT) Neutrophil abs 9.30(H) 1.50 - 6.50 K/cumm [facility] Comment:Testing performed by : [facility], [address] [place] [address]., [address] Imm gran abs 0.05 0.00 - 0.10 K/cumm [facility] Comment:Testing performed by : [facility], [address] [place]., [address] Lymphocyte abs 1.08 0.80 - 3.30 K/cumm [facility] Comment:Testing performed by : [facility], [address] [place] [address]., [address] Monocyte abs 0.93(H) 0.20 - 0.80 K/cumm [facility] Comment:Testing performed by : [facility], [address] [place] [address]., [address] Eosinophil abs 0.69(H) 0.00 - 0.50 K/cumm [facility] Comment:Testing performed by : [facility], [address] [place]., [address] Basophil abs 0.12(H) 0.00 - 0.10 K/cumm [facility] Comment:Testing performed by : [facility], [address] [place]., [address] Neutrophil pct 76.4 % [facility] Comment: Interpretive Data Percent cell count reference ranges are not reported, since discordance with absolute values may lead to misinterpretation of CBC data. Current Interpretive Data was last revised on 2017. Testing performed by: [facility], [address] [place]., [address] Imm gran pct 0.4 % [facility] Comment: Interpretive Data Percent cell count reference ranges are not reported, since discordance with absolute values may lead to misinterpretation of CBC data. Current Interpretive Data was last revised on 2017. Testing performed by: [facility], [address] [place]., [address] Lymphocyte pct 8.9 % [facility] Comment: Interpretive Data Percent cell count reference ranges are not reported, since discordance with absolute values may lead to misinterpretation of CBC data. Current Interpretive Data was last revised on 2017. Testing performed by: [facility], [address] [place]., [address] Monocyte pct 7.6 % [facility] Comment: Interpretive Data Percent cell count reference ranges are not reported, since discordance with absolute values may lead to misinterpretation of CBC data. Current Interpretive Data was last revised on 2017. Testing performed by: [facility], [address] [place]., [address] Eosinophil pct 5.7 % [facility] Comment: Interpretive Data Percent cell count reference ranges are not reported, since discordance with absolute values may lead to misinterpretation of CBC data. Current Interpretive Data was last revised on 2017. Testing performed by: [facility], [address] [place]., [address] Basophil pct 1.0 % [facility] Comment: Interpretive Data Percent cell count reference ranges are not reported, since discordance with absolute values may lead to misinterpretation of CBC data. Current Interpretive Data was last revised on 2017. Testing performed by: [facility], [address] [place]., [address] Blood 01/12/2025 10:0 4 AM CDT 01/12/2025 1:57 PM CDT us Notinfile Unknown LAB BLOOD ORDERABLES Final Res ult [facility] Department [place] [address] * (ABNORMAL) Comprehensive metabolic panel, without glucose (Outreach) (01/12/2025 10:04 AM CDT) Sodium 142 135 - 145 mmol/L [facility] Comment:Testing performed by : [facility], [address] [facility], [address] Potassium, pl 4.3 3.3 - 4.9 mmol/L [facility] Comment:Testing performed by : [facility], [address] [facility], [address] Chloride 102 97 - 110 mmol/L [facility] Comment:Testing performed by : [facility], [address] [facility], [address] CO2 27 22 - 32 mmol/L [facility] Comment:Testing performed by : [facility], [address] [facility], [address] Anion gap 13 2 - 15 mmol/L [facility] Comment:Testing performed by : [facility], [address] [facility], [address] BUN 24 6 - 25 mg/dL [facility] Comment:Testing performed by : [facility], [address] [facility], [address] Creatinine 1.16(H) 0.60 - 1.10 mg/dL [facility] Comment:Testing performed by : [facility], [address] [facility], [address] Calcium 10.1 8.5 - 10.3 mg/dL [facility] Comment:Testing performed by : [facility], [address] [place]., [address] Protein, pl 7.3 6.5 - 8.5 g/dL [facility] Comment:Testing performed by : [facility], [address] [facility], [address] Albumin 4.6 3.5 - 5.0 g/dL [facility] Comment:Testing performed by : [facility], [address] [facility], [address] Bilirubin, total 0.5 0.1 - 1.2 mg/dL [facility] Comment:Testing performed by : [facility], [address] [facility], [address] Alk phos 86 40 - 130 Units/L [facility] Comment:Testing performed by : [facility], [address] [facility], [address] AST 28 10 - 45 Units/L [facility] Comment:Testing performed by : [facility], [address] [place] [address], [address] ALT 25 7 - 45 Units/L [facility] Comment:Testing performed by : [facility], [address] [place] [address], [address] Blood 01/12/2025 10:0 4 AM CDT 01/12/2025 1:57 PM CDT us Notinfile Unknown LAB BLOOD ORDERABLES Final Res ult [facility] Department [place] [address] * (ABNORMAL) CBC with auto differential (01/12/2025 10:04 AM CDT) WBC 12.17(H) 3.80 - 9.90 K/cumm [facility] Comment:Testing performed by : [facility], [address] [facility], [address] Hgb 11.7(L) 11.9 - 15.5 g/dL [facility] Comment:Testing performed by : [facility], [address] [facility], [address] Hct 38.1 35.6 - 45.5 % [facility] Comment:Testing performed by : [facility], [address] [facility], [address] Plt 345 150 - 400 K/cumm [facility] Comment:Testing performed by : [facility], [address] [facility], [address] MPV 9.0(L) 9.1 - 12.3 fL [facility] Comment:Testing performed by : [facility], [address] [facility], [address] RBC 4.29 3.90 - 5.20 M/cumm [facility] Comment:Testing performed by : [facility], [address] [facility], [address] MCV 88.8 81.3 - 96.4 fL [facility] Comment:Testing performed by : [facility], [address] [facility], [address] MCH 27.3 27.1 - 33.3 pg [facility] Comment:Testing performed by : [facility], [address] [facility], [address] MCHC 30.7(L) 32.3 - 35.7 g/dL [facility] Comment:Testing performed by : [facility], [address] [facility], [address] RDW CV 15.9(H) 11.1 - 14.9 % CERNER [facility] Comment:Testing performed by : [facility], [address] [facility], [address] RDW SD 51.7(H) 35.7 - 48.1 fL [facility] Comment:Testing performed by : [facility], [address] [place]., [address] NRBC abs 0.00 0.00 - 0.01 K/cumm [facility] Comment:Testing performed by : [facility], [address] [place]., [address] Blood 01/12/2025 10:0 4 AM CDT 01/12/2025 1:57 PM CDT us Notinfile Unknown LAB BLOOD ORDERABLES Final Res ult Performing Organization Address City/[facility]/ZIP Co de Phone Number [facility] [place] [address] * (ABNORMAL) CS GLUCOSE (01/08/2025 12:20 PM CDT) [facility] Signature Glucose 68(L) 70 - 199 mg/dL [facility] Comment: Interpretive Data Fasting glucose >/= 126 [...] was last revised 2022. Testing performed by: [facility], [address] [place]., [address] Blood 01/08/2025 12:2 0 PM CDT 01/08/2025 1:36 PM CDT us Notinfile Unknown LAB BLOOD ORDERABLES Final Res ult Performing Organization Address City/[facility]/ZIP Co de Phone Number [facility] Department [place] [address] * (ABNORMAL) eGFR (01/08/2025 12:20 PM CDT) [...] was last reviewed 2021. Testing performed by: [facility], [address] [place] [address]., [address] Blood 01/08/2025 12:2 0 PM CDT 01/08/2025 2:02 PM CDT us Notinfile Unknown LAB BLOOD ORDERABLES Final Res ult [facility] Department [place] [address] * (ABNORMAL) Differential, auto (01/08/2025 12:20 PM CDT) Neutrophil abs 6.42 1.50 - 6.50 K/cumm [facility] Comment:Testing performed by : [facility], [address] [place] [address]., [address] Imm gran abs 0.03 0.00 - 0.10 K/cumm [facility] Comment:Testing performed by : [facility], [address] [place]., [address] Lymphocyte abs 1.12 0.80 - 3.30 K/cumm [facility] Comment:Testing performed by : [facility], [address] [place]., [address] Monocyte abs 0.59 0.20 - 0.80 K/cumm [facility] Comment:Testing performed by : [facility], [address] [place]., [address] Eosinophil abs 0.60(H) 0.00 - 0.50 K/cumm [facility] Comment:Testing performed by : [facility], [address] [place]., [address] Basophil abs 0.09 0.00 - 0.10 K/cumm [facility] Comment:Testing performed by : [facility], [address] [place]., [address] Neutrophil pct 72.5 % [facility] Comment: Interpretive Data Percent cell count reference ranges are not reported, since discordance with absolute values may lead to misinterpretation of CBC data. Current Interpretive Data was last revised on 2017. Testing performed by: [facility], [address] [place]., [address] Imm gran pct 0.3 % [facility] Comment: Interpretive Data Percent cell count reference ranges are not reported, since discordance with absolute values may lead to misinterpretation of CBC data. Current Interpretive Data was last revised on 2017. Testing performed by: [facility], [address] [place]., [address] Lymphocyte pct 12.7 % [facility] Comment: Interpretive Data Percent cell count reference ranges are not reported, since discordance with absolute values may lead to misinterpretation of CBC data. Current Interpretive Data was last revised on 2017. Testing performed by: [facility], [address] [place]., [address] Monocyte pct 6.7 % [facility] Comment: Interpretive Data Percent cell count reference ranges are not reported, since discordance with absolute values may lead to misinterpretation of CBC data. Current Interpretive Data was last revised on 2017. Testing performed by: [facility], [address] [place]., [address] Eosinophil pct 6.8 % [facility] Comment: Interpretive Data Percent cell count reference ranges are not reported, since discordance with absolute values may lead to misinterpretation of CBC data. Current Interpretive Data was last revised on 2017. Testing performed by: [facility], [address] [place]., [address] Basophil pct 1.0 % [facility] Comment: Interpretive Data Percent cell count reference ranges are not reported, since discordance with absolute values may lead to misinterpretation of CBC data. Current Interpretive Data was last revised on 2017. Testing performed by: [facility], [address] [place]., [address] Blood 01/08/2025 12:2 0 PM CDT 01/08/2025 1:36 PM CDT us Notinfile Unknown LAB BLOOD ORDERABLES Final Res ult [facility] Department [place] [address] * Comprehensive metabolic panel, without glucose (Outreach) (01/08/2025 12:20 PM CDT) Sodium 141 135 - 145 mmol/L [facility] Comment:Testing performed by : [facility], [address] [place]., [address] Potassium, pl 4.3 3.3 - 4.9 mmol/L [facility] Comment:Testing performed by : [facility], [address] [place]., [address] Chloride 102 97 - 110 mmol/L [facility] Comment:Testing performed by : [facility], [address] [place]., [address] CO2 26 22 - 32 mmol/L [facility] Comment:Testing performed by : [facility], 1 [facility], [address] Anion gap 13 2 - 15 mmol/L [facility] Comment:Testing performed by : [facility], [address] [facility], [address] BUN 22 6 - 25 mg/dL [facility] Comment:Testing performed by : [facility], [address] [facility], [address] Creatinine 1.06 0.60 - 1.10 mg/dL [facility] Comment:Testing performed by : [facility], [address] [facility], [address] Calcium 9.6 8.5 - 10.3 mg/dL [facility] Comment:Testing performed by : [facility], 1 [facility], [address] Protein, pl 6.5 6.5 - 8.5 g/dL [facility] Comment:Testing performed by : [facility], [address] [facility], [address] Albumin 4.0 3.5 - 5.0 g/dL [facility] Comment:Testing performed by : [facility], 1 [facility], [address] Bilirubin, total 0.4 0.1 - 1.2 mg/dL [facility] Comment:Testing performed by : [facility], [address] [facility], [address] Alk phos 82 40 - 130 Units/L [facility] Comment:Testing performed by : [facility], 1 [facility], [address] AST 25 10 - 45 Units/L [facility] Comment:Testing performed by : [facility], [address] [place] [address], [address] ALT 34 7 - 45 Units/L [facility] Comment:Testing performed by : [facility], [address] [place] [address]., [address] Blood 01/08/2025 12:2 0 PM CDT 01/08/2025 1:36 PM CDT us Notinfile Unknown LAB BLOOD ORDERABLES Final Res ult [facility] Department [place] [address] * (ABNORMAL) CBC with auto differential (01/08/2025 12:20 PM CDT) WBC 8.85 3.80 - 9.90 K/cumm [facility] Comment:Testing performed by : [facility], [address] [place] [address], [address] Hgb 9.3(L) 11.9 - 15.5 g/dL [facility] Comment:Testing performed by : [facility], [address] [place] [address], [address] Hct 30.7(L) 35.6 - 45.5 % [facility] Comment:Testing performed by : [facility], 1 [facility], [address] Plt 255 150 - 400 K/cumm [facility] Comment:Testing performed by : [facility], [address] [place] [address], [address] MPV 8.9(L) 9.1 - 12.3 fL [facility] Comment:Testing performed by : [facility], [address] [place] [address], [address] RBC 3.44(L) 3.90 - 5.20 M/cumm [facility] Comment:Testing performed by : [address], [address] MCV 89.2 81.3 - 96.4 fL [facility] Comment:Testing performed by : [facility], [address] [place]., [address] MCH 27.0(L) 27.1 - 33.3 pg [facility] Comment:Testing performed by : [facility], [address] [place]., [address] MCHC 30.3(L) 32.3 - 35.7 g/dL [facility] Comment:Testing performed by : [facility], [address] [facility], [address] RDW CV 15.5(H) 11.1 - 14.9 % [facility] Comment:Testing performed by : [facility], 1 [facility], [address] RDW SD 49.9(H) 35.7 - 48.1 fL [facility] Comment:Testing performed by : [facility], 1 [facility], [address] NRBC abs 0.00 0.00 - 0.01 K/cumm [facility] Comment:Testing performed by : [facility], [address] [facility], [address] Blood 01/08/2025 12:2 0 PM CDT 01/08/2025 1:36 PM CDT us Notinfile Unknown LAB BLOOD ORDERABLES Final Res ult Performing Organization Address City/State/[facility] Co de Phone Number [facility] Department [place] [address] * CTA Chest Abdomen Pelvis (01/07/2025 3:43 [...] yrs. Magnet rate 85 bpm Presenting Rhythm (MI) Atrial Sensing-Ventricular Sensing (-VS) --- Underlying rhythm: NSR 70s Arrhythmic events (AE) No new arrhythmic events in monitoring period Anticoagulation (AC) Patient prescribed Apixaban (Eliquis) Patient on anticoagulant therapy Procedure Note Chan Reece MD - 01/08/2025 Interpretation Summary: Battery and Leads (BL) Normal parameters noted on battery and lead(s) --- battery longevityestimate: 14.3 yrs. Magnet rate 85 bpm Presenting Rhythm (MI) Atrial Sensing-Ventricular Sensing (-VS) --- Underlying rhythm: NSR70s Arrhythmic events (AE) No new arrhythmic events in monitoring period Anticoagulation (AC) Patient prescribed Apixaban (Eliquis) Patient on anticoagulant therapy Shala M. Amsler ADMINISTRATIVE PROJECT COORDINATOR CV CARDIAC SERVICES PROCEDUR ES Final Result from Last 3 Months Insurance [employer]CARE Advance Directives For more information, please contact: [phone] Documents on File Type Date Recorded Patient Bilingual Medical Receptionist Expl anation ADVANCE DIRECTIVE 12/12/2024 11:13 AM HUONG Esposito OF BEREAVEMENT COUNSELOR-MEDICAL * Full Code (Latest Code Status on File) Date Activated Date Inactivated Comments 12/09/2024 3:28 PM 01/02/2025 7:06 PM Care Teams Carbon Plant Grinder Relationship Specialty Start Date End Date Pacheco Mejia DO PCP - General Internal Medicine 01/22/23 Justin Herron DO [address] [facility] [address] [place] [address] Referring Physician Cardiology 10/14/24 Indiana Mortensen MD [id number] [place] [address] Cardiothoracic Surgery 01/02/25 Unknown, Notinfile 01/02/25 Shelton Marcelo MD [address] [id number] [place] [address] Consulting Physician Physical Medicine and Rehabilitation 01/14/25
[2025-04-09 23:31] VITALS: BP 160/92; O2SAT 100
[2025-04-10] MEDS: SULFAMETHOXAZOLE/TRIMETHOPRIM 800/160 MG DS TABLET 1 TAB PO (00:46)
[2025-04-10 01:20] VITALS: BP 160/92; PULSE 69; RESP 22; O2SAT 100
== END 2025-04-10 01:15 | disposition home or self-care (01) ==
PROVIDERS: Emergency Provider Student in an Organized Health Care Education/Training Program; PCP Internal Medicine
DX: L03.116 Cellulitis of left lower limb (principal); S80.12XA Contusion of left lower leg, initial encounter; I10 Essential (primary) hypertension; I35.0 Nonrheumatic aortic (valve) stenosis; E78.5 Hyperlipidemia, unspecified; E66.01 Morbid (severe) obesity due to excess calories; Z68.42 Body mass index [BMI] 45.0-49.9, adult; E55.9 Vitamin D deficiency, unspecified; G25.81 Restless legs syndrome; G62.9 Polyneuropathy, unspecified; M19.90 Unspecified osteoarthritis, unspecified site; F43.12 Post-traumatic stress disorder, chronic; F32.A Depression, unspecified; F41.9 Anxiety disorder, unspecified; Z98.84 Bariatric surgery status; Z96.653 Presence of artificial knee joint, bilateral; Z90.721 Acquired absence of ovaries, unilateral; Z90.710 Acquired absence of both cervix and uterus; Z79.01 Long term (current) use of anticoagulants; Z79.899 Other long term (current) drug therapy; Z79.82 Long term (current) use of aspirin; W22.8XXA Striking against or struck by other objects, initial encounter
CPT/HCPCS: 73700; 99284; A9270

== ENCOUNTER 2025-04-13 14:35 | Outpatient (CLI) | payer OTHER, MEDICAID, SELFPAY ==
--- OUTSIDE RECORDS SUMMARY | 2025-03-12 09:20 | XMS_ITS ---
Author Organization [facility] Address [address] [place], [place] [address] Care Team Providers Care Glaze Maker Name Role Phone Raiza Rosa Unavailable [phone] REASON FOR VISIT 1 month f/u Medications Medication SIG (Take, Route, Frequency, Duration) Notes Start Date End Date Status dexAMETHasone 1 MG Tablet 1 tablet Orall y at 10 pm night before 8 am cortisol; Duration: 1 days 02/12/2025 Activ e Encounters Encounter Location Date Provider Diagnosis [facility] Rosa [address] [place] [phone] 03/12/2025 Raiza Rosa Plan Of Treatment No Information History and Physical Notes * HPI (History of Present Illness) Category Sub-Category Detail Notes Category Not es History of Present Illness labs from Feb acth 35.2 pg/ML H/H normal GLUCOSE 94 MG/DL ast 49 u/l alt NORMAL 152/92/53/61 a1c 4.6% insulin 27.1 uU/ml iron 31% vit D 62.8 ng/ML TSH of 2.310 uIU/ml FT4 of 0.99 ng/dL FT3 of 3.83 pg/mL folic normal B12 >1000 pg/ml dheas low at 6.2 ug/mL cortisol of 6.3 ug/mL Progress Notes * Janak VEGAdebbyDOB:1960 (64 yo F)Acc No.[id number]:03/12/2025 Progress Notes Patient: Leyla Senior Provider: Jung Rosa MD :1960 A ge:64 Y S ex:Female Date:03/12/2025 Phone: Address:[address] [place] [address] Subjective: * Chief Complaints: * 1 month f/u * HPI: H istory of Present Illness: labs from Feb acth 35.2 pg/ML H/H normal GLUCOSE 94 MG/DL ast 49 u/l alt NORMAL 152/92/53/61 a1c 4.6% insulin 27.1 uU/ml iron 31% vit D 62.8 ng/ML TSH of 2.310 uIU/ml FT4 of 0.99 ng/dL FT3 of 3.83 pg/mL folic normal B12 >1000 pg/ml dheas low at 6.2 ug/mL cortisol of 6.3 ug/mL. * Medications: T akingdexAMETHasone 1 MG Tablet 1 tablet Orally at 10 pm night before 8 am cortisol Taking dexAMETHasone 1 MG Tablet 1 tablet Orally at 10 pm night before 8 am cortisol * Electronic signature of Prabhjot Rosa MD on 04/13/2025 at 03:24 PM CDT Sign off status: Pending * Provider: Jung Rosa MD Date: 03/12/2025 Generated for Irma sweeney/Geronimo/Cosmoitting on: 04/13/2025 03:24 PM CDT
--- NOTE | ~2025-04-13 | US_ITS ---
EXAMINATION:US venous doppler LE RT INDICATION:Acute embolism and thrombosis TECHNIQUE: Multiple grayscale, color flow and Doppler images of the right lower extremity deep venous systems were obtained and reviewed. FINDINGS: The common femoral, superficial femoral and popliteal veins demonstrate normal respiratory variation, augmentation and compressibility. Color flow is also seen within the posterior tibial, peroneal, greater saphenous and profunda veins. IMPRESSION: 1: No right lower extremity deep venous thrombosis. Reviewed, dictated and finalized at location Q.
--- OUTSIDE RECORDS SUMMARY | 2025-04-13 15:24 | XMS_ITS | Encounter Summary ---
Author Organization [facility] Address [address] [place] [address] Phone Care Team Providers Care Studio Camera Operator Name Role Phone Pacheco Mejia DO Primary Care Provider [phone]- [phone] Justin Herron DO Unavailable Indiana Mortensen MD Unavailable Unknown, Notinfile Unavailable Unavailable Shelton Marcelo MD Unavailable Encounter Details Date Type Department Care Team (Late st Contact Info) Description 04/09/2025 Telephone [facility] Medicine Cardiology [address] [facility] Advanced [facility] 8th [place] [address] [place] [phone] Shola Cha MD [address] [facility] [address] [place] [address] Social History Tobacco Use Types Packs/Day Years [...] materials from doctor or pharmacy Never 01/26/2025 [facility] Utilities Answer Date Recorded In [...] often do you attend chur ch or muslim services? Never 12/22/2024 Do you belong to any clubs o r organizations such as christian groups, unions, fraternal or athletic groups, or [...] any time in the past 12 m [facility], were you homeless or living in a custodial (including now)? No 12/22/2024 Personal Safety Answer Date Recorded Have you ever been in or are you currently in a harmful physical or emotional relationship or is someone making you feel afraid or unsafe? 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 Gender Identity Female 01/25/2023 3:47 PM CDT [...] on filedocumented in this encounter Care Teams Studio Camera Operator Relationship Specialty Start Date End Date Pacheco Mejia DO PCP - General Internal Medicine 01/22/23 Justin Herron DO [address] [facility] [address] [place] [address] Referring Physician Cardiology 10/14/24 Indiana Mortensen MD [id number] [place] [address] Cardiothoracic Surgery 01/02/25 Unknown, Notinfile 01/02/25 Shelton Marcelo MD [address] [phone] [place] [address] Consulting Physician Physical Medicine and Rehabilitation 01/14/25 documented as of this encounter
--- OUTSIDE RECORDS SUMMARY | 2025-04-13 15:24 | XMS_ITS | Clinical Summary ---
Author Organization [facility] Elaine Cunha Address [address] [place] [address] Care Team Providers Care Noodle Catalyst Maker Name Role Phone GlynnPacheco michelle Ravinder BILLS [...] bedtime. Active fluticasone propionate (FLONASE) 50 mcg/spray Warren, Suspension nasal inhaler USE 2 SPRAY(S) IN [...] Comments Blood Pressure 129/70 05/30/2023 10:21 AM EMERGENCY SERVICE RESTORER Pulse 93 05/30/2023 10:21 AM EMERGENCY SERVICE RESTORER Temperature 35.7 C (96.2 F) 05/30/2023 10:21 AM EMERGENCY SERVICE RESTORER Respiratory Rate 12 05/30/2023 10:21 AM EMERGENCY SERVICE RESTORER Oxygen Saturation 96% 05/30/2023 10:21 AM EMERGENCY SERVICE RESTORER Inhaled Oxygen Concentration - - Weight 134.3 kg (296 lb) 05/30/2023 10:21 AM EMERGENCY SERVICE RESTORER Height 160 cm (5' 3) 05/30/2023 10:21 AM EMERGENCY SERVICE RESTORER Body Mass Index 52.43 05/30/2023 10:21 AM EMERGENCY SERVICE RESTORER Plan of Treatment Health Maintenance Due Date [...] (1 - 1-dose 75+ series) 2037 Insurance [facility] MEDICAID [place] Care Teams Noodle Catalyst Maker Relationship Specialty Start Date End Date Pacheco Mejia DO [address] [facility] [address] [place] [phone] PCP - General Internal Medicine 02/16/23
--- OUTSIDE RECORDS SUMMARY | 2025-04-13 15:24 | XMS_ITS | Patient Health Record ---
Author Organization [facility] Address [address] [place], [place] [address] Care Team Providers Care Winch Runner Name Role Phone Raiza Rosa Unavailable [phone] Allergies Allergen (clinical drug ingredient) Drug/Non Drug [...] Status Risk Notes Problem Vitamin D deficiency (41589608) Vitamin D deficiency, unspecified (E55.9) Active confirmed Problem Insomnia (336924771) Insomnia due to medical condition (G47.01) Active confirmed Problem Obesity (603306283) Obesity (BMI 30-39.9) (E66.9) Active confirmed Problem Generalized anxiety disorder (85818796) Anxiety, generalized (F41.1) Active confirmed Problem Morbid obesity (383222440) Morbid obesity (E66.01) Active confirmed Problem Insulin resistance (213585417) Insulin resistance (E88.819) Active confirmed Vital Signs [...] Location Date Provider Diagnosis [facility] Dr. Rosa [address] [place] [address] 02/12/2025 Raizazoe Rosa Obesity (BMI 30-39.9 ) E66.9 ; Impaired fasting glucose R73.01 ; Other fatigue R53.83 ; Vitamin D deficiency, unspecified E55.9 ; Lipid screening Z13.220 ; Anxiety, generalized F41.1 ; Insomnia due to medical condition G47.01 and Dietary counseling and surveillance Z71.[address] Rosa [address] [place], [place] [phone] 03/19/2025 Raiza Rosa Morbid obesity E66.0 1 ; Adenoma of left adrenal gland D35.02 and Insulin resistance E88.819 [place] [address] 03/11/2025 Raiza Moe Obesity (BMI 30-39.9 ) E66.[address] Rosa [address] [place] [address] 03/12/[address] Rosa [address] [place] [address] 03/12/2025 Raiza Moe Obesity (BMI 30-39.9 ) E66.[place] [address] 03/25/2025 Raiza Rosa Assessments Encounter Date Diagnosis [...] SyndromeAssessment: Patient presents with symptoms suggestive of Clinton's syndrome, including weight gain, hypertension, and high [...] procedures, referring and communicating with other health rn coronary care unit, documenting clinical information in the electronic or [...] follow-up.Plan:- Recommend patient establish care with a reel slitter for evaluation of enlarged right ovary- Discuss [...] procedures, referring and communicating with other health rn coronary care unit, documenting clinical information in the electronic or [...] Start Date Coverage End Date [facility] [address] [place] [id number] Leyla Vega Self - patient is the insured
--- OUTSIDE RECORDS SUMMARY | 2025-04-13 15:24 | XMS_ITS | Clinical Summary ---
Author Organization [facility] Address [address] [place] [address] Phone Care Team Providers Care Welding Inspector Name Role Phone Pacheco Mejia DO Primary Care Provider [phone] Justin Herron DO Unavailable [phone] Indiana Mortensen MD Unavailable Unknown, Notinfile Unavailable Unavailable Shelton Marcelo MD Unavailable Allergies Active Allergy Reactions Criticality Noted Date Comments Amoxicillin-Pot Clavulanate Hives,Shortn ess of breath,Rash High 01/24/2023 Clavulanic Acid Hives Medium 03/13/2025 Penicillins Hives,Rash Medium Tetracyclines Other (See comments) [...] mg total) by mouth daily 02/05/20 Active cephalexin (KEFLEX) 500 mg capsule Take 1 capsule (500 mg total) by mouth 2 (two) times a day 04/09/20 25 Active sulfamethoxazole- trimethoprim (BACTRIM) 800-160 mg per tablet Take by mouth 2 (two) times a day 04/10/20 25 Active dexAMETHasone (DECADRON) 1 mg tablet TAKE 1 TABLET BY MOUTH AT 10PM THE NIGHT BEFORE 8AM CORTISOL 03/31/20 25 Active Active Problems Problem Noted Date Diagnosed [...] and placed a temp perm pacemaker - Solg[employer]achia [employer] RV lead externalized perm pacemaker in [...] and placed a temp perm pacemaker - [employer] RV lead externalized perm pacemaker in [...] Encounters Date Type Department Care Team Description 04/10/2025 4:36 PM CDT - 04/10/2025 11:59 PM CDT Hospital Encounter [facility] [address] [place] [address] Arrived Discharge Disposition: Discharge to home or self care 04/10/2025 4:35 PM CDT - 04/10/2025 11:59 PM CDT Hospital Encounter [facility] [address] [place] [address] Arrived Discharge Disposition: Discharge to home or self care 04/10/2025 2:27 PM CDT - 04/10/2025 11:59 PM CDT Hospital Encounter [facility] [address] [place] [address] Arrived Discharge Disposition: Discharge to home or self care 04/10/2025 1:40 PM CDT Office Visit [facility] Orthopaedic Surgery [address] [facility] 1st [address] [place] [address] Enrike Love MD Closed displaced fracture of shaft of fifth metacarpal bone of left hand, initial encounter (Primary Dx) 04/09/2025 Telephone [facility] Medicine Cardiology [facility] 8th [place] [address] [place] [address] Shola Cha MD 04/01/2025 Telephone [facility] Cardiology [address] [place] [address] 8th [place] [address] [place] [address] Shola Cha MD 03/31/2025 3:30 PM CDT Office Visit [facility] Cardiology [address] [place] [address] 8th [place] [address] [place] [address] Shola Cha MD Bradycardia (Primary Dx) 03/31/2025 3:00 PM CDT Ancillary Procedure [facility] Cardiology [address] [place] [address] 8th [place] [address] [place] [address] Complete heart block (HCC) [I44.2] (Primary Dx); Fitting or adjustment of cardiac pacemaker 02/09/2025 1:15 PM CDT Office Visit [facility] Cardiothoracic Surgery [address] [place] [address] 8th [address] Room [id number] [place] [address] Naz Gordillo NP S/P AVR (aortic valve replacement) (Primary Dx); S/P CABG (coronary artery bypass graft) 02/09/2025 12:17 PM CDT - 02/09/2025 11:59 PM CDT Hospital Encounter [facility] [address] [place] [address] Status post cardiac surgery Discharge Disposition: Discharge to home or self care 02/08/2025 Orders Only [facility] [address] [facility] 8th [address] [place] [phone] Shola Cha MD 01/26/2025 Home Care Visit [address] [place] [address] Tiffany Santiago RN SN VIRTUAL OASIS DISCHARGE 01/26/2025 Home Care Visit [address] [place] [address] Jessica Carver RN SN TRIAGE ENCOUNTER 01/26/2025 Home Care Visit [address] [place] [address] Peter Hebert, PT TELEPHONE ENCOUNTER 01/22/2025 Home Care Visit [address] [place] [address] Tiffany Santiago RN TELEPHONE ENCOUNTER 01/22/2025 Telephone [facility] Cardiothoracic Surgery [address] [facility] 8th Floor [address] Room [id number] [place] [phone] Brigitte Sanchez, MANAGER MSW 01/21/2025 12:00 PM CDT Home Care Visit [address] [place] [address] Tiffany Santiago RN SN HOME VISIT 01/20/2025 3:00 PM CDT Home Care Visit [address] [place] [address] Peter Hebert, PT PT INITIAL EVALUATION 01/20/2025 11:30 AM CDT Home Care Visit [address] [place] [address] April Sr, OT OT INITIAL EVALUATION 01/18/2025 1:13 PM CDT - 01/18/2025 11:59 PM CDT Hospital Encounter [facility] [address] [place] [address] Discharge Disposition: Discharge to home or self care 01/18/2025 1:00 PM CDT Home Care Visit [address] [place] [address] Alana Kim, JUANITA SN OASIS START OF CARE 01/18/2025 Plan of Care Documentation [address] [place] [address] 01/17/2025 Home Care Visit [address] [place] [address] Candelaria Silverio RN TELEPHONE ENCOUNTER 01/15/2025 Telephone [facility] Medicine Cardiology [address] [facility] 8th [place] [address] [place] [address] Shola Cha MD 01/14/2025 Telephone [facility] [address] [facility] [address] [place] [address] Alba Rodriguez, RN 01/14/2025 Telephone [facility] [address] [place] [address] Marian Crowell RN 01/14/2025 Travel 01/14/2025 Telephone [facility] [address] [facility] [address] [place] [address] Alba Rodriguez, RN 01/14/2025 Telephone [facility] [address] [facility] [address] [place] [address] Alba Rodriguez, RN 01/14/2025 Telephone [facility] [address] [facility] [address] [place] [address] Alba Rodriguez, RN 01/14/2025 Telephone [facility] [address] [facility] [address] [place] [address] Alba Rodriguez, RN 01/13/2025 Telephone [facility] [address] [facility] [address] [place] [address] Alba Rodriguez, RN 01/13/2025 Telephone [facility] [address] [facility] [address] [place] [phone] Alba Rodriguez RN 01/12/2025 Telephone [facility] [address] [facility] [address] [place] [address] Alba Rodriguez, JUANITA 01/12/2025 Orders Only [facility] [phone] Unknown, Notinfile 01/12/2025 Telephone [facility] [address] [facility] [address] [place] [phone] Alba Rodriguez RN 01/12/2025 Telephone [facility] [address] [facility] [address] [place] [phone] Alba Rodriguez RN from Last 3 Months Immunizations Immunization Administration [...] ELECTRODES (GEN AND LEADS, NEW OR REPLACE) 80204; Surgeon: Shola Cha MD; Location: [facility] EP [facility]; Service: Cardiovascular; Laterality: N/A; [...] materials from doctor or pharmacy Never 01/26/2025 [facility] Utilities Answer Date Recorded In the past 12 months has e locr, gas, oil, or water [employer] threatened to shut off services in your home? No 12/22/2024 Social Connection and Isolation Panel Answer Date Recorded In a typical week, how many times do you talk on the phone with family, friends, or neighbors? Three times a week 12/22/2024 How often do you get togethe r with friends or relatives? Three times a week 12/22/2024 How often do you attend [facility] or [facility] services? Never 12/22/2024 Do you belong to any clubs o r organizations such as scientology groups, unions, fraternal or athletic groups, or [...] time in the past 12 m [facility], were you homeless or living in a group home (including now)? No 12/22/2024 Personal Safety Answer Date Recorded Have you ever been in or are you currently in a harmful physical or emotional relationship or is someone making you feel afraid or unsafe? 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 Gender Identity Female 01/25/2023 3:47 PM [...] 20 01/21/2025 12:50 PM CDT Oxygen Saturation 97% 03/31/2025 3:33 PM CDT Inhaled Oxygen Concentration - - Weight 126.6 kg (279 lb) 04/10/2025 1:50 PM CDT Height 160 cm (5' 3) 04/10/2025 1:50 PM CDT Body Mass Index 49.42 04/10/2025 1:50 PM CDT Plan of Treatment Health Maintenance Due Date Last Done Comments Breast Cancer Screening-Mammogram 1962 Cervical Cancer Screening 1962 Colon Cancer Screening-Colonoscopy 1962 Depression Screening 1962 Hepatitis C Screening 1962 Hepatitis B Screening 1980 Regular Well Visit/Exam 18-64 1980 Zoster Vaccine (1 of 2) 2012 Covid-19 Vaccine (2024-08 6 season) 2025 07/10/2023, 07/10/2023, 05/13/2021, Additional history exists Influenza Vaccine (#1) 2025 DTaP/Tdap/Td Vaccine (2 - Td or Tdap) 01/23/2034 01/24/2024 Pneumococcal vaccine <65 Completed 01/24/2024, 04/16 Medical Devices Implanted Type Area Dry Cleaning Teacher Device Identifier Shelf Expiration Date Model / Serial / Lot [employer] Nikolai Lead [id number] Endocardial Pacing Mr Is-1 Bipolar Connection 7841-12/16/2024 Implanted:2024 (Quantity not on file) Lead Right: Ventricle 04/29/2026 / [id number] / Medtronic Inc Capsurefix Novus 6.2fr 2mm 52cm Bipolar Screw In Implantable Latex Free 5076-52 - [id number] - [id number] Implanted:Qty: 1 on 12/31/2024 by Shola Cha MD at [facility] Lead Right: Ventricle Medtronic Inc 10/09/2026 5076-52 / [id number] 12V / [id number] 12V Medtronic Inc Capsurefix Novus 6.2fr 2mm 45cm Bipolar Screw In Implantable 5076-45 - [id number] - [id number] Implanted:Qty: 1 on 12/31/2024 by Shola Cha MD at [facility] Lead Right: Atria Medtronic Inc 10/10/2026 5076-45 / [id number] 73V / [id number] 73V Medtronic Inc Tyrx Absorbable Antibacterial Envelope Med 2.7x2.5in [id number] - [id number] - [id number] Implanted:Qty: 1 on 12/31/2024 by Shola Cha MD at [facility] Other - see comments Right: Chest Wall Medtronic Inc 09/25/2025 [id number] 2 / [id number] / [id number] Description:Tyrex Medtronic Inc Qian S Mri Surescan 50.8x46.6mm 2 Chamber 7.4mm Pacemaker 22.5gm [id number] - [id number] - [id number] Implanted:Qty: 1 on 12/31/2024 by Shola Cha MD at [facility] Pacemaker Right: Chest Wall Medtronic Inc 04/28/2026 [id number] / [id number] 65G / [id number] 65G [employer] Nikolai Patch Cardiovascular 14x8cm Samantha-Guard [place] [employer] [id number] - [id number] - [id number] Implanted:Qty: 1 on 12/09/2024 by Indiana Mortensen MD at [facility] Chest [employer] Nikolai [id number] 05/27/2026 [id number] / [id number] / [id number] [employer] Inspiris Resilia Leaflet Sewing Ring 27mm Valve Aortic Bovine [id number] - [id number] - [id number] Implanted:Qty: 1 on 12/09/2024 by Indiana Mortensen MD at [facility] Heart [employer] [id number] 08/27/2029 [id number] / [id number] / Arthrex Inc Device Closure Fibertape Sternal Cerclage Blunt Needle Ar-7289 - [id number] Implanted:Qty: 1 on 12/09/2024 by Indiana Mortensen MD at [facility] N/A: Sternum Ar[employer]rex Inc 05/15/2029 AR-7289 / / [id number] Esme [employer] Plate Bone Low Profile 6 Hole O Shape Sternum Ti 115.104.06 - [id number] Implanted:Qty: 1 on 12/09/2024 by Gordy Bourgeois MD at [facility] N/A: Sternum [employer] 115.104 .06 / / Esme [employer] Plate Bone Low Profile 6 Hole H Shape Sternum Ti 115.102.06 - [id number] Implanted:Qty: 2 on 12/09/2024 by Indiana Mortensen MD at [facility] N/A: Sternum [employer] 115.102 .06 / / Esme [employer] Screw Bone Slf Drl Full Thread Locking 3.5x16mm Ti 100.035.16 - [id number] Implanted:Qty: 8 on 12/09/2024 by Indiana Mortensen MD at [facility] N/A: Sternum [employer] 100.035 .16 / / Esme [employer] Screw Bone Slf Drl Full Thread Locking 3.5x18mm Ti 100.035.18 - [id number] Implanted:Qty: 4 on 12/09/2024 by Gordy Bourgeois MD at [facility] N/A: Sternum [employer] 100.035 .18 / / Esme [employer] Screw Bone Slf Drl Full Thread Locking 3.5x20mm Ti 100.035.20 - [id number] Implanted:Qty: 6 on 12/09/2024 by Gordy Bourgeois MD at [facility] N/A: Sternum [employer] 100.035 .20 / / Procedures Procedure Name Priority Date/Time Associated Diagnosis Comments XR TRANSFER OF OUTSIDE FILMS Routine 04/10/2025 4:36 PM CDT XR TRANSFER OF OUTSIDE FILMS Routine 04/10/2025 4:35 PM CDT XR TRANSFER OF OUTSIDE FILMS Routine 04/10/2025 2:27 PM CDT DEVICE CHECK - IN OFFICE Routine 03/31/2025 2:58 PM CDT Fitting or adjustment of cardiac pacemaker Complete heart block (HCC) XR CHEST PA LATERAL 2 VIEWS Schedule [...] Routine Gen Lab 01/12/2025 10:04 AM CDT from Last 3 Months Results * XR Outside Reference (04/10/2025 4:36 PM CDT) Impressions [facility] - 04/10/2025 4:36 PM CDT These images are for Reference purposes only and have not been reviewed by [facility]iology. There will be no report generated by a [facility] Radiologist. Narrative [facility] - 04/10/2025 4:36 PM CDT EXAMINATION: Images For Reference Purposes Only Enrike Love MD IMG XR PROCEDURES Final R esult Performing Organization Address [facility] de Phone Number [email or web address] * XR Outside Reference (04/10/2025 4:35 PM CDT) Impressions [facility] - 04/10/2025 4:35 PM CDT These images are for Reference purposes only and have not been reviewed by [facility]. There will be no report generated by a [facility] Radiologist. Narrative [facility] - 04/10/2025 4:35 PM CDT EXAMINATION: Images For Reference Purposes Only Enrike Love MD IMG XR PROCEDURES Final R esult Performing Organization Address [facility] de Phone Number [facility] * XR Outside Reference (04/10/2025 2:27 PM CDT) Impressions [facility] - 04/10/2025 2:27 PM CDT These images are for Reference purposes only and have not been reviewed by [facility]. There will be no report generated by a [facility] Radiologist. Narrative [facility] - 04/10/2025 2:27 PM CDT EXAMINATION: Images For Reference Purposes Only Enrike Love MD IMG XR PROCEDURES Final R esult Performing Organization Address [facility] de Phone Number [email or web address] * DEVICE CHECK - IN OFFICE (03/31/2025 2:58 PM CDT) Anatomical Region Laterality Modality Other 03/31/2025 2:00 AM CDT Narrative 04/13/2025 8:36 AM CDT Interpretation Summary: Battery and Leads (BL) Normal parameters noted on battery and lead(s) --- battery longevity estimate: 15.1 years, 3.22 V Presenting Rhythm ([place]) Atrial Sensing-Ventricular Sensing (-VS) --- Underlying rhythm: SR 73 bpm Procedure Note Shola Cha MD - 04/13/2025 Interpretation Summary: Battery and Leads (BL) Normal parameters noted on battery and lead(s) --- battery longevityestimate: 15.1 years, 3.22 V Presenting Rhythm ([place]) Atrial Sensing-Ventricular Sensing (-VS) --- Underlying rhythm: SR 73bpm us Shola Cha MD CV CARDIAC SERVI SIMRAN PROCEDURES Final Result * XR Chest Pa Lateral 2 Views [...] signed by: Osvaldo Ace M.D. Naz Gordillo CLIN TECH IMG XR PROCEDURES Final Result * DEVICE CHECK - REMOTE (02/08/2025 6:24 AM CDT) Anatomical Region Laterality Modality Other 02/08/2025 6:24 AM CDT Narrative 02/11/2025 11:02 AM CDT Interpretation Summary: Battery and Leads (BL) Normal parameters noted on battery and lead(s) --- 15.1 yrs remaining longevity. Lead impedance, sensing, and threshold trends stable and appropriate. No short V-V intervals. Presenting Rhythm ([place]) Atrial Sensing-Ventricular Sensing (-VS) --- /VS (SR) [...] andappropriate. No short V-V intervals. Presenting Rhythm ([place]) Atrial Sensing-Ventricular Sensing (-VS) --- /VS (SR) [...] DO LAB BLOOD ORDERABLES Final Result [facility] Department [place] [address] * eGFR (01/18/2025 1:13 PM CDT) eGFR [...] Mejia DO LAB BLOOD ORDERABLES Final Result [facility] Department [place] [address] * (ABNORMAL) Differential, auto (01/18/2025 1:13 PM CDT) Neutrophil abs 6.51(H) 1.50 - 6.50 K/cumm Imm gran abs 0.04 0.00 - 0.10 K/cumm [facility] Lymphocyte abs 0.92 0.80 - 3.30 K/cumm [facility] Monocyte abs 0.48 0.20 - 0.80 K/cumm [facility] Eosinophil abs 0.33 0.00 - 0.50 K/cumm [facility] Basophil abs 0.08 0.00 - 0.10 K/cumm [facility] Neutrophil pct 77.9 % [facility] Comment: Interpretive Data Percent cell count reference ranges are not reported, since discordance with absolute values may lead to misinterpretation of CBC data. Current Interpretive Data was last revised on 2017. Imm gran pct 0.5 % [facility] Comment: Interpretive Data Percent cell count reference ranges are not reported, since discordance with absolute values may lead to misinterpretation of CBC data. Current Interpretive Data was last revised on 2017. Lymphocyte pct 11.0 % [facility] Comment: Interpretive Data Percent cell count reference ranges are not reported, since discordance with absolute values may lead to misinterpretation of CBC data. Current Interpretive Data was last revised on 2017. Monocyte pct 5.7 % [facility] Comment: Interpretive Data Percent cell count reference ranges are not reported, since discordance with absolute values may lead to misinterpretation of CBC data. Current Interpretive Data was last revised on 2017. Eosinophil pct 3.9 % [facility] Comment: Interpretive Data Percent cell count reference ranges are not reported, since discordance with absolute values may lead to misinterpretation of CBC data. Current Interpretive Data was last revised on 2017. Basophil pct 1.0 % [facility] Comment: Interpretive Data Percent cell count reference ranges are not reported, since discordance with absolute values may lead to misinterpretation of CBC data. Current Interpretive Data was last revised on 2017. Blood 01/18/2025 1:13 PM CDT 01/18/2025 2:54 PM CDT Pacheco Mejia LAB BLOOD ORDERABLES Final Result Performing Organization Address [facility] de Phone Number [facility] Department [place] [address] * Basic metabolic panel without glucose (01/18/2025 1:13 PM CDT) [facility] Sodium 139 135 - 145 mmol/L Potassium, pl 4.6 3.3 - 4.9 mmol/L [facility] Chloride 105 97 - 110 mmol/L [facility] CO2 25 22 - 32 mmol/L [facility] Anion gap 9 2 - 15 mmol/L [facility] BUN 22 6 - 25 mg/dL [facility] Creatinine 0.89 0.60 - 1.10 mg/dL [facility] Calcium 9.3 8.5 - 10.3 mg/dL [facility] Blood 01/18/2025 1:13 PM CDT 01/18/2025 2:54 PM CDT Pacheco Mejia LAB BLOOD ORDERABLES Final Result Performing Organization Address [facility] de Phone Number [facility] Department [place] [address] * (ABNORMAL) CBC with auto differential (01/18/2025 1:13 PM CDT) Pathologist [facility] WBC 8.36 3.80 - 9.90 K/cumm Hgb 11.2(L) 11.9 - 15.5 g/dL [facility] Hct 35.2(L) 35.6 - 45.5 % [facility] Plt 267 150 - 400 K/cumm [facility] MPV 9.0(L) 9.1 - 12.3 fL [facility] RBC 4.04 3.90 - 5.20 M/cumm [facility] MCV 87.1 81.3 - 96.4 fL [facility] MCH 27.7 27.1 - 33.3 pg [facility] MCHC 31.8(L) 32.3 - 35.7 g/dL [facility] RDW CV 15.8(H) 11.1 - 14.9 % [facility] RDW SD 50.8(H) 35.7 - 48.1 fL [facility] NRBC abs 0.00 0.00 - 0.01 K/cumm [facility] Blood 01/18/2025 1:13 PM CDT 01/18/2025 2:54 PM CDT us Pacheco Mejia DO LAB BLOOD ORDERABLES Final Result [facility] Department [place] [address] * (ABNORMAL) CS GLUCOSE (01/12/2025 10:04 AM CDT) [facility] Glucose 57(L) 70 - 199 mg/dL [facility] Comment: Interpretive Data Fasting glucose [...] was last revised 2022. Testing performed by: [facility], [address] [facility], [place]., [address] Blood 01/12/2025 10:0 4 AM CDT 01/12/2025 1:57 PM CDT us Notinfile Unknown LAB BLOOD ORDERABLES Final Res ult [facility] Department [place] [address] * (ABNORMAL) eGFR (01/12/2025 10:04 AM CDT) [...] was last reviewed 2021. Testing performed by: [facility], [address] [place] [address], [place]., [address] Blood 01/12/2025 10:0 4 AM CDT 01/12/2025 2:11 PM CDT us Notinfile Unknown LAB BLOOD ORDERABLES Final Res ult [facility] Department [place] [address] * (ABNORMAL) Differential, auto (01/12/2025 10:04 AM CDT) Neutrophil abs 9.30(H) 1.50 - 6.50 K/cumm [facility] Comment:Testing performed by : [facility] [address] [place]., [address] Imm gran abs 0.05 0.00 - 0.10 K/cumm [facility] Comment:Testing performed by : [facility], [address] [place]., [address] Lymphocyte abs 1.08 0.80 - 3.30 K/cumm [facility] Comment:Testing performed by : [facility], [address] [place]., [address] Monocyte abs 0.93(H) 0.20 - 0.80 K/cumm [facility] Comment:Testing performed by : [facility], [address] [place]., [address] Eosinophil abs 0.69(H) 0.00 - 0.50 K/cumm [facility] Comment:Testing performed by : [facility], [address] [place]., [address] Basophil abs 0.12(H) 0.00 - 0.10 K/cumm [facility] Comment:Testing performed by : [facility], [address] [place]., [address] Neutrophil pct 76.4 % [facility] Comment: Interpretive Data Percent cell count reference ranges are not reported, since discordance with absolute values may lead to misinterpretation of CBC data. Current Interpretive Data was last revised on 2017. Testing performed by: [facility], [address] [place]., [address] Imm gran pct 0.4 % [facility] Comment: Interpretive Data Percent cell count reference ranges are not reported, since discordance with absolute values may lead to misinterpretation of CBC data. Current Interpretive Data was last revised on 2017. Testing performed by: [facility], [address] [place]., [address] Lymphocyte pct 8.9 % [facility] Comment: Interpretive Data Percent cell count reference ranges are not reported, since discordance with absolute values may lead to misinterpretation of CBC data. Current Interpretive Data was last revised on 2017. Testing performed by: [facility], [address] [place]., [address] Monocyte pct 7.6 % [facility] Comment: Interpretive Data Percent cell count reference ranges are not reported, since discordance with absolute values may lead to misinterpretation of CBC data. Current Interpretive Data was last revised on 2017. Testing performed by: [facility], [address] [place]., [address] Eosinophil pct 5.7 % [facility] Comment: Interpretive Data Percent cell count reference ranges are not reported, since discordance with absolute values may lead to misinterpretation of CBC data. Current Interpretive Data was last revised on 2017. Testing performed by: [facility], [address] [place]., [address] Basophil pct 1.0 % [facility] Comment: Interpretive Data Percent cell count reference ranges are not reported, since discordance with absolute values may lead to misinterpretation of CBC data. Current Interpretive Data was last revised on 2017. Testing performed by: [facility], [address] [place]., [address] Blood 01/12/2025 10:0 4 AM CDT 01/12/2025 1:57 PM CDT us Notinfile Unknown LAB BLOOD ORDERABLES Final Res ult [facility] Department [place] [address] * (ABNORMAL) Comprehensive metabolic panel, without glucose (Outreach) (01/12/2025 10:04 AM CDT) Sodium 142 135 - 145 mmol/L [facility] Comment:Testing performed by : [facility], [address] [place]., [address] Potassium, pl 4.3 3.3 - 4.9 mmol/L [facility] Comment:Testing performed by : [facility], 1 [facility], [address] Chloride 102 97 - 110 mmol/L [facility] Comment:Testing performed by : [facility], [address] [facility], [address] CO2 27 22 - 32 mmol/L [facility] Comment:Testing performed by : [facility], [address] [facility], [address] Anion gap 13 2 - 15 mmol/L [facility] Comment:Testing performed by : [facility], 1 [facility], [address] BUN 24 6 - 25 mg/dL [facility] Comment:Testing performed by : [facility], [address] [facility], [address] Creatinine 1.16(H) 0.60 - 1.10 mg/dL [facility] Comment:Testing performed by : [facility], 1 [facility], [address] Calcium 10.1 8.5 - 10.3 mg/dL [facility] Comment:Testing performed by : [facility], [address] [facility], [address] Protein, pl 7.3 6.5 - 8.5 g/dL [facility] Comment:Testing performed by : [facility], 1 [facility], [address] Albumin 4.6 3.5 - 5.0 g/dL [facility] Comment:Testing performed by : [facility], [address] [facility], [address] Bilirubin, total 0.5 0.1 - 1.2 mg/dL [facility] Comment:Testing performed by : [facility], [address] [facility], [address] Alk phos 86 40 - 130 Units/L [facility] Comment:Testing performed by : [facility], [address] [place] [address] AST 28 10 - 45 Units/L [facility] Comment:Testing performed by : [facility], 1 [facility], [address] ALT 25 7 - 45 Units/L [facility] Comment:Testing performed by : [facility], 1 [facility], [address] Blood 01/12/2025 10:0 4 AM CDT 01/12/2025 1:57 PM CDT us Notinfile Unknown LAB BLOOD ORDERABLES Final [facility] ult [facility] Department [place] [address] * (ABNORMAL) CBC with auto differential (01/12/2025 10:04 AM CDT) WBC 12.17(H) 3.80 - 9.90 K/cumm [facility] Comment:Testing performed by : [facility], 1 [facility], [address] Hgb 11.7(L) 11.9 - 15.5 g/dL [facility] Comment:Testing performed by : [facility], 1 [facility], [address] Hct 38.1 35.6 - 45.5 % [facility] Comment:Testing performed by : [facility], 1 [facility], [address] Plt 345 150 - 400 K/cumm [facility] Comment:Testing performed by : [facility], 1 [facility], [address] MPV 9.0(L) 9.1 - 12.3 fL [facility] Comment:Testing performed by : [facility], 1 [facility], [address] RBC 4.29 3.90 - 5.20 M/cumm [facility] Comment:Testing performed by : [facility], 1 [facility], [address] MCV 88.8 81.3 - 96.4 fL [facility] Comment:Testing performed by : [facility], 1 [facility], [address] MCH 27.3 27.1 - 33.3 pg [facility] Comment:Testing performed by : [facility], 1 [facility], [address] MCHC 30.7(L) 32.3 - 35.7 g/dL [facility] Comment:Testing performed by : [facility], 1 [facility], [address] RDW CV 15.9(H) 11.1 - 14.9 % [facility] Comment:Testing performed by : [facility], 1 [facility], [address] RDW SD 51.7(H) 35.7 - 48.1 fL [facility] Comment:Testing performed by : [facility], 1 [facility], [address] NRBC abs 0.00 0.00 - 0.01 K/cumm [facility] Comment:Testing performed by : [facility], [address] [place] [address], [address] Blood 01/12/2025 10:0 4 AM CDT 01/12/2025 1:57 PM CDT us Notinfile Unknown LAB BLOOD ORDERABLES Final Res ult [facility] One [facility] Department [place] [address] from Last 3 Months Insurance HE[employer] HE[employer] HE[employer]CARE Advance Directives For more information, please contact: [phone] Documents on File Type Date Recorded 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 DIRECTIVE 12/12/2024 11:13 AM HUONG R OF [employer]MENT[employer] * Full Code (Latest Code Status on File) Date Activated Date Inactivated Comments 12/09/2024 3:28 PM 01/02/2025 7:06 PM Care Teams Welding Inspector Relationship Specialty Start Date End Date Pacheco Mejia DO PCP - General Internal Medicine 01/22/23 Justin Herron DO [address] [facility] [address] [place] [address] Referring Physician Cardiology 10/14/24 Indiana Mortensen MD [id number] [place] [address] Cardiothoracic Surgery 01/02/25 Unknown, Notinfile 01/02/25 Shelton Marcelo MD [address] [id number] [place] [address] Consulting Physician Physical Medicine and Rehabilitation 01/14/25
--- OUTSIDE RECORDS SUMMARY | 2025-04-13 15:24 | XMS_ITS | Encounter Summary ---
Author Organization [facility] Address [address] [place] [address] Phone Care Team Providers Care Sap Basis Consultant Name Role Phone Pacheco Mejia DO Primary Care Provider [phone] Justin Herron DO Unavailable Indiana Mortensen MD Unavailable [phone] Unknown, Notinfile Unavailable Unavailable Shelton Marcelo MD Unavailable [phone] Encounter Details Date Type Department Care Team (Late st Contact Info) Description 04/01/2025 Telephone [facility] Medicine Cardiology [address] [facility] [place] Advanced [facility] 8th [place] [address] [place] [id number] Shola Cha MD [address] [facility] [address] [place] [address] Social History Tobacco Use Types Packs/Day Years [...] materials from doctor or pharmacy Never 01/26/[address] [facility] Utilities Answer Date Recorded In the [...] often do you attend chur ch or restoration services? Never 12/22/2024 Do you belong to any clubs o r organizations such as jain groups, unions, fraternal or athletic groups, or [...] any time in the past 12 m [facility], were you homeless or living in a senior living (including now)? No 12/22/2024 Personal Safety Answer Date Recorded Have you ever been in or are you currently in a harmful physical or emotional relationship or is someone making you feel afraid or unsafe? 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 She can be reached at [phone] opt 2. documented in this encounter Plan of Treatment Not on file documented as of this encounter Visit Diagnoses Not on filedocumented in this encounter Care Teams Sap Basis Consultant Relationship Specialty Start Date End Date Pacheco Mejia DO PCP - General Internal Medicine 01/22/23 Justin Herron DO [address] [address] Referring Physician Cardiology 10/14/24 Indiana Mortensen MD [id number] [place] [address] Cardiothoracic Surgery 01/02/25 Unknown, Notinfile 01/02/25 Shelton Marcelo MD [address] [facility] [id number] [place] [address] Consulting Physician Physical Medicine and Rehabilitation 01/14/25 documented as of this encounter
--- OUTSIDE RECORDS SUMMARY | 2025-04-13 15:24 | XMS_ITS ---
Author Name Maximo Mckinney DO Address [address] [place] [address] Phone [phone] Organization [facility] Care Team Providers Care Carpentry Professional Name Role Phone Maximo Mckinney Unavailable [phone] Primarily Home Tier 2 RN (STL), Sigrid Stewart U navailable Unavailable Latisha Andrade Courtney Unavailable Unavail able Primarily Home Tier 1 RN (STL), Sigrid Bermudez navailable Unavailable ELODIA FORTE Unavailable [phone] TIMOTHY CLIFFORD Unavailable [phone] Reason for Referral Not Available Allergies, adverse [...] tablet orally daily 11-16-13 No Data Available Bethany-3 Fish Oil 1200 mg Cap 1 Capsule [...] Recommend diet and exercise if approved by Residency Coordinator Dyspnea on exertion Active 2024-10-27 N/A Kolby [...] medical decision making, total time 30-44 minutes [id number] 2024-10-27 No Data Available No Data Availa [...] day supply 2024-10-27 Recommend to speak w [place] PCP about physical therapy Health Concerns Date [...]
--- OUTSIDE RECORDS SUMMARY | 2025-04-13 15:24 | XMS_ITS | Patient Health Record ---
Author Organization [facility] As [facility] Address [address] [address] Care Team Providers Care Cosmetics Supervisor Name Role Phone Pacheco Mejia DO Primary Care Provider Lakisha Sultana Unavailable [phone] Bronwyn Berkley Unavailable [phone] Leticia Santiago Unavailable [phone] Allergies Allergen (clinical drug ingredient) Drug/Non Drug [...] Oxazepam (BZO) n 0 - 300 ng/ml 0-mvnedhuvfn-4,3-rehatuiw-1,3-diphenylpyrrolidine (AAMIR P) n 0 - 300 ng/ml Methamphetamine (MET) n 0 - 1000 ng/ml Methylenedioxymethamphetamine (MDMA) n 0 - 500 ng/ml Morphine (MOP 300/ELN4167) n 0 - 300 ng/ml Methadone (MTD) [...] Aerosol Powder Breath Activated Inhalation *Reorder from [facility] for eRx and Interaction Alerts* 11/19/2023 Not-Taking [...] NoDo you have a medical power of instrument tech?: NoPublic Health and TravelHave you been to [...] NoDo you have a medical power of instrument tech?: NoPublic Health and TravelHave you been to [...] NoDo you have a medical power of instrument tech?: NoPublic Health and TravelHave you been to [...] NoDo you have a medical power of instrument tech?: NoPublic Health and TravelHave you been to [...] NoDo you have a medical power of instrument tech?: NoPublic Health and TravelHave you been to [...] NoDo you have a medical power of instrument tech?: NoPublic Health and TravelHave you been to [...] NoDo you have a medical power of instrument tech?: NoPublic Health and TravelHave you been to [...] NoDo you have a medical power of instrument tech?: NoPublic Health and TravelHave you been to [...] NoDo you have a medical power of instrument tech?: NoPublic Health and TravelHave you been to [...] NoDo you have a medical power of instrument tech?: NoPublic Health and TravelHave you been to [...] NoDo you have a medical power of instrument tech?: NoPublic Health and TravelHave you been to [...] NoDo you have a medical power of instrument tech?: NoPublic Health and TravelHave you been to [...] NoDo you have a medical power of instrument tech?: NoPublic Health and TravelHave you been to [...] NoDo you have a medical power of instrument tech?: NoPublic Health and TravelHave you been to [...] NoDo you have a medical power of instrument tech?: NoPublic Health and TravelHave you been to [...] NoDo you have a medical power of instrument tech?: NoPublic Health and TravelHave you been to [...] NoDo you have a medical power of instrument tech?: NoPublic Health and TravelHave you been to [...] NoDo you have a medical power of instrument tech?: NoPublic Health and TravelHave you been to [...] (e.g., BA, AB, BS)Are you currently employed?: [employer] is your employer?: disabled / retiredMarriage and SexualityWhat is your relationship status?: MarriedAre you sexually active?: NoDo you use protection during sex?: NoHow many children do you have?: 0Home and EnvironmentAre there any guns present in your home?: NoAdvance DirectiveDo you have an advance directive?: NoDo you have a medical power of instrument tech?: NoPublic Health and TravelHave you been to [...] NoDo you have a medical power of instrument tech?: NoPublic Health and TravelHave you been to an area known to be high risk for COVID-19?: NoGender Identity and LGBTQ IdentityGender identity: Identifies as FemaleAssigned sex at : FemaleSexual orientation: Straight or heterosexual Problems Problem Type SNOMED Code ICD Code Onset Dates Problem Status W/U Status Risk Notes Problem Generalized anxiety disorder (96613452) Generalized anxiety disorder (F41.1) 4 Active confirmed Problem Chronic post-traumatic stress disorder (823898325) Chronic posttraumatic stress disorder (F43.12) Active confirmed Problem Insomnia disorder related to another mental disorder (70080823) Insomnia related to another mental disorder (F51.05) Active confirmed Problem Panic disorder (343695380) Panic attacks (F41.0) Active confirmed Problem Mild recurrent major depression (41098552) Mild recurrent major depression (F33.0) Active confirmed Problem Essential hypertension (22393567) Benign essential HTN (I10) Active confirmed Vital Signs Heart Rate 93 /min 11/17/2024 Height-cm 160.02 cm 11/17/2024 Blood pressure diastolic 73 mm Hg 11/17/2024 Weight-kg 128.82 kg 11/17/2024 Height 63.00 in 11/17/2024 Blood pressure systolic 150 mm Hg 11/17/2024 Weight 284 lbs 11/17/2024 BMI 50.3 kg/m2 11/17/2024 Encounters Encounter Location Date Provider Diagnosis [place] [address] [address] 04/21/2024 Leticia Santiago Major depressive disorder, recurrent, mild F33.0 ; Generalized anxiety disorder F41.1 ; Post-traumatic stress disorder, chronic F43.12 and Panic attacks F41.0 [facility] [place] [address] [address] 04/21/2024 Berkleyandre Hughesman Mild recurrent major depression F33.0 ; Generalized anxiety disorder F41.1 ; Chronic posttraumatic stress disorder F43.12 and Panic attacks F41.0 [facility] [place] [address] [address] 05/15/2024 Berkley Bronwyn Mild recurrent major depression F33.0 ; Generalized anxiety disorder F41.1 ; Chronic posttraumatic stress disorder F43.12 and Panic attacks F41.0 [facility] [place] [address] [address] 05/19/2024 Berkleyandre Barnhart Major depressive disorder, recurrent, mild F33.0 ; Generalized anxiety disorder F41.1 ; Chronic posttraumatic stress disorder F43.12 and Panic attacks F41.0 [facility] [place] [address] [address] 06/02/2024 Berkley Bronwyn Mild recurrent major depression F33.0 ; Generalized anxiety disorder F41.1 ; Chronic posttraumatic stress disorder F43.12 and Panic attacks F41.0 [facility] [place] [address] [address] 06/18/2024 Berkley Bronwyn Major depressive disorder, recurrent, mild F33.0 ; Generalized anxiety disorder F41.1 ; Chronic posttraumatic stress disorder F43.12 and Panic attacks F41.0 [facility] [address] [place] [address] 07/02/2024 Berkley Bronwyn Mild recurrent major depression F33.0 ; Generalized anxiety disorder F41.1 ; Chronic posttraumatic stress disorder F43.12 and Panic attacks F41.0 [facility] [address] [place] [address] 07/14/2024 Berkley Bronwyn Mild recurrent major depression F33.0 ; Generalized anxiety disorder F41.1 ; Chronic posttraumatic stress disorder F43.12 and Panic attacks F41.0 [facility] [address] [place] [address] 07/22/2024 Lakisha Aida Generalized anxiety disorder F41.1 ; Mild recurrent major depression F33.0 ; Chronic posttraumatic stress disorder F43.12 ; Panic attacks F41.0 and Inadequate sleep hygiene Z72.821 [place] [address] [place] [address] 07/22/2024 Berkley Bronwyn Mild recurrent major depression F33.0 ; Generalized anxiety disorder F41.1 ; Chronic posttraumatic stress disorder F43.12 and Panic attacks F41.0 [facility] [address] [place] [address] 08/05/2024 Berkley Bronwyn Mild recurrent major depression F33.0 ; Generalized anxiety disorder F41.1 ; Chronic posttraumatic stress disorder F43.12 and Panic attacks F41.0 [facility] [address] [place] [address] 08/19/2024 Berkley Bronwyn Mild recurrent major depression F33.0 ; Generalized anxiety disorder F41.1 ; Chronic posttraumatic stress disorder F43.12 and Panic attacks F41.0 [facility] [address] [place] [address] 09/01/2024 Berkley Bronwyn Generalized anxiety disorder F41.1 ; Mild recurrent major depression F33.0 ; Chronic posttraumatic stress disorder F43.12 and Panic attacks F41.0 [facility] [address] [place] [address] 10/02/2024 Berkley Bronwyn Encounter for screening for depression Z13.31 ; Mild recurrent major depression F33.0 ; Generalized anxiety disorder F41.1 ; Chronic posttraumatic stress disorder F43.12 and Panic attacks F41.0 [place] [address] [facility] [address] [facility] [address] [place] [address] 10/20/2024 Lakisha Hagkel Generalized anxiety disorder F41.1 ; Insomnia related to another mental disorder F51.05 ; Mild recurrent major depression F33.0 ; Chronic posttraumatic stress disorder F43.12 ; Panic attacks F41.0 ; Benign essential HTN I10 and Encounter for screening for depression Z13.31 [place] [address] [facility] [address] [place] [address] 10/20/2024 Berkley Bronwyn Encounter for screening for depression Z13.31 ; Mild recurrent major depression F33.0 ; Generalized anxiety disorder F41.1 ; Chronic posttraumatic stress disorder F43.12 and Panic attacks F41.[address] [facility] [address] [place] [address] 11/03/2024 Berkley Bronwyn Encounter for screening for depression Z13.31 ; Mild recurrent major depression F33.0 ; Generalized anxiety disorder F41.1 ; Chronic posttraumatic stress disorder F43.12 and Panic attacks F41.0 [place] [address] [facility] [address] [facility] [address] [place] [address] 11/17/2024 Berkley Bronwyn Encounter for screening for depression Z13.31 ; Mild recurrent major depression F33.0 ; Chronic posttraumatic stress disorder F43.12 and Panic attacks F41.0 [place] [address] [facility] [address] [facility] [address] [place] [address] 11/17/2024 Lakisha Parra Generalized anxiety disorder F41.1 ; Chronic posttraumatic stress disorder F43.12 ; Panic attacks F41.0 ; Insomnia related to another mental disorder F51.05 ; Mild recurrent major depression F33.0 and Benign essential HTN I10 [place] [address] [facility] [address] [facility] [address] [place] [address] 12/03/2024 Bekrley Bronwyn Generalized anxiety disorder F41.1 ; Mild recurrent major depression F33.0 ; Chronic posttraumatic stress disorder F43.12 ; Panic attacks F41.0 and Encounter for screening for depression Z13.31 [place] [address] [place] [address] 12/29/2024 Berkley Bronwyn Mild recurrent major depression F33.0 ; Generalized anxiety disorder F41.1 ; Chronic posttraumatic stress disorder F43.12 ; Panic attacks F41.0 and Encounter for screening for depression Z13.31 [place] [address] [place] [address] 01/05/2025 Berkley Bronwyn Generalized anxiety disorder F41.1 ; Mild recurrent major depression F33.0 ; Chronic posttraumatic stress disorder F43.12 and Encounter for screening for depression Z13.31 [place] [address] [place] [address] 01/30/2025 Berkley Bronwyn Mild recurrent major depression F33.0 ; Generalized anxiety disorder F41.1 ; Chronic posttraumatic stress disorder F43.12 ; Panic attacks F41.0 and Encounter for screening for depression Z13.31 [place] [address] [place] [address] 02/16/2025 Lakisha Parra Generalized anxiety disorder F41.1 ; Chronic posttraumatic stress disorder F43.12 ; Mild recurrent major depression F33.0 ; Insomnia related to another mental disorder F51.05 and Panic attacks F41.0 [place] [address] [place] [address] 02/24/2025 Berkley Bronwyn Mild recurrent major depression F33.0 ; Generalized anxiety disorder F41.1 ; Chronic posttraumatic stress disorder F43.12 and Panic attacks F41.0 [place] [address] [place] [address] 03/24/2025 Berkley Bronwyn Mild recurrent major depression F33.0 ; Generalized anxiety disorder F41.1 ; Panic attacks F41.0 and Chronic posttraumatic stress disorder F43.12 [place] [address] [place] [address] 06/02/2024 Lakisha Parra Generalized anxiety disorder F41.1 [place] [address] [place] [address] 06/03/2024 Lakisha Parra Generalized anxiety disorder F41.1 [place] [address] [place] [address] 06/06/2024 Lakisha Felipakel [facility], [facility] [address] [place] [address] 10/21/2024 Lakisha Aida [facility] [address] [place] [address] 10/30/2024 Lakisha Aida Generalized anxiety disorder F41.1 [facility] [address] [place] [address] 11/05/2024 Lakisha Parra Generalized anxiety disorder F41.1 and Mild recurrent major depression F33.0 [facility] [address] [place] [address] 01/30/2025 Lakisha Parra [facility] [address] [place] [address] 03/19/2025 Lakisha Aida Mild recurrent major depression F33.0 [facility] [address] [address] 09/29/2024 Lakisha Aida [facility] [address] [facility] [address] [place] [address] 09/30/2024 Lakishavladimir Parra [facility] [address] [facility] [address] [place] [address] 01/30/2025 Lakisha Felipakel Assessments Encounter Date Diagnosis (ICD Code) Assessment Notes Treatment Notes Treatment Clinical Notes Section Notes 04/21/2024 Mild recurrent major depression (ICD-10 - [...] Mild recurrent major depression (ICD-10 - F33.0) 07/02/2024 Generalized anxiety disorder (ICD-10 - F41.1) 07/22/2024 Mild recurrent major depression (ICD-10 - [...] 09/01/2024 Generalized anxiety disorder (ICD-10 - F41.1) 10/20/2024 Generalized anxiety disorder (ICD-10 - F41.1) 10/20/2024 Insomnia related to another mental disorder (ICD-10 - F51.05) 11/03/2024 Encounter for screening for depression (ICD-10 [...] recurrent major depression (ICD-10 - F33.0) 02/24/2025 Mild recurrent major depression (ICD-10 - F33.0) 03/19/2025 Mild recurrent major depression (ICD-10 - F33.0) 03/24/2025 Mild recurrent major depression (ICD-10 - F33.0) 02/16/2025 Generalized anxiety disorder (ICD-10 - F41.1) 02/16/2025 Chronic posttraumatic stress disorder (ICD-10 - F43.12) 10/30/2024 Generalized anxiety disorder (ICD-10 - F41.1) 10/20/2024 Encounter for screening for depression (ICD-10 - Z13.31) 10/20/2024 Mild recurrent major depression (ICD-10 - F33.0) 10/02/2024 Encounter for screening for depression (ICD-10 - Z13.31) 10/02/2024 Mild recurrent major depression (ICD-10 - F33.0) 10/02/2024 Generalized anxiety disorder (ICD-10 - F41.1) 10/20/2024 Generalized anxiety disorder (ICD-10 - F41.1) 01/30/2025 Chronic posttraumatic stress disorder (ICD-10 - F43.12) 02/16/2025 Mild recurrent major depression (ICD-10 - F33.0) 03/24/2025 Generalized anxiety disorder (ICD-10 - F41.1) 02/24/2025 Generalized anxiety disorder (ICD-10 - F41.1) 11/03/2024 Generalized anxiety disorder (ICD-10 - F41.1) 01/05/2025 Chronic posttraumatic stress disorder (ICD-10 - F43.12) 12/29/2024 Chronic posttraumatic stress disorder (ICD-10 - F43.12) 12/03/2024 Chronic posttraumatic stress disorder (ICD-10 - F43.12) 11/17/2024 Panic attacks (ICD-10 - F41.0) 11/17/2024 Chronic posttraumatic stress disorder (ICD-10 - F43.12) 11/05/2024 Mild recurrent major depression (ICD-10 - F33.0) 10/20/2024 Mild recurrent major depression (ICD-10 - F33.0) 09/01/2024 Mild recurrent major depression (ICD-10 - F33.0) 07/22/2024 Chronic posttraumatic stress disorder (ICD-10 - [...] arise or changes to treatment plan desired 08/19/2024 Generalized anxiety disorder (ICD-10 - F41.1) 08/05/2024 Generalized anxiety disorder (ICD-10 - F41.1) 07/02/2024 Chronic posttraumatic stress disorder (ICD-10 - F43.12) 07/22/2024 Generalized anxiety disorder (ICD-10 - F41.1) 07/14/2024 Generalized anxiety disorder (ICD-10 - F41.1) 06/18/2024 Chronic posttraumatic stress disorder (ICD-10 - F43.12) 05/15/2024 Generalized anxiety disorder (ICD-10 - F41.1) 06/02/2024 Generalized anxiety disorder (ICD-10 - F41.1) 05/19/2024 Generalized anxiety disorder (ICD-10 - F41.1) 04/21/2024 Generalized anxiety disorder (ICD-10 - F41.1) cont lorazepam 0.5mg daily prn; rare use meds as abovecont therapy note: also taking lyrica 04/21/2024 Generalized anxiety disorder (ICD-10 - F41.1) 04/21/2024 Chronic posttraumatic stress disorder (ICD-10 - F43.12) 04/21/2024 Post-traumatic stress disorder, chronic (ICD-10 - F43.12) meds therapy as above 05/19/2024 Chronic posttraumatic stress disorder (ICD-10 - F43.12) 06/02/2024 Chronic posttraumatic stress disorder (ICD-10 - F43.12) 05/15/2024 Chronic posttraumatic stress disorder (ICD-10 - F43.12) 06/18/2024 Panic attacks (ICD-10 - F41.0) 07/14/2024 Chronic posttraumatic stress disorder (ICD-10 - F43.12) 07/22/2024 Chronic posttraumatic stress disorder (ICD-10 - F43.12) 07/02/2024 Panic attacks (ICD-10 - F41.0) 08/05/2024 Chronic posttraumatic stress disorder (ICD-10 - [...] arise or changes to treatment plan desired 10/20/2024 Chronic posttraumatic stress disorder (ICD-10 - F43.12) 11/03/2024 Chronic posttraumatic stress disorder (ICD-10 - F43.12) 11/17/2024 Panic attacks (ICD-10 - F41.0) 11/17/2024 Insomnia related to another mental disorder (ICD-10 - F51.05) 12/03/2024 Panic attacks (ICD-10 - F41.0) 12/29/2024 Panic attacks (ICD-10 - F41.0) 01/05/2025 Encounter for screening for depression (ICD-10 - Z13.31) 02/24/2025 Chronic posttraumatic stress disorder (ICD-10 - F43.12) 02/16/2025 Insomnia related to another mental disorder (ICD-10 - F51.05) 03/24/2025 Panic attacks (ICD-10 - F41.0) 01/30/2025 Panic attacks (ICD-10 - F41.0) 10/20/2024 Chronic posttraumatic stress disorder (ICD-10 - F43.12) 10/02/2024 Chronic posttraumatic stress disorder (ICD-10 - F43.12) 10/02/2024 Panic attacks (ICD-10 - F41.0) 10/20/2024 Panic attacks (ICD-10 - F41.0) 02/16/2025 Panic attacks (ICD-10 - F41.0) 03/24/2025 Chronic posttraumatic stress disorder (ICD-10 - F43.12) 02/24/2025 Panic attacks (ICD-10 - F41.0) 01/30/2025 Encounter for screening for depression (ICD-10 - Z13.31) 12/29/2024 Encounter for screening for depression (ICD-10 - Z13.31) 11/17/2024 Mild recurrent major depression (ICD-10 - F33.0) 12/03/2024 Encounter for screening for depression (ICD-10 - Z13.31) 11/03/2024 Panic attacks (ICD-10 - F41.0) 10/20/2024 Panic attacks (ICD-10 - F41.0) 09/01/2024 Panic attacks (ICD-10 - F41.0) 08/19/2024 Panic [...] F41.0) 07/14/2024 Panic attacks (ICD-10 - F41.0) 05/15/2024 Panic attacks (ICD-10 - F41.0) 06/02/2024 Panic attacks (ICD-10 - F41.0) 05/19/2024 Panic attacks (ICD-10 - F41.0) 04/21/2024 Panic attacks (ICD-10 - F41.0) meds therapy as above 04/21/2024 Panic attacks (ICD-10 - F41.0) 11/17/2024 Benign essential HTN (ICD-10 - I10) 10/20/2024 Benign essential HTN (ICD-10 - I10) 10/20/2024 Encounter for screening for depression (ICD-10 - Z13.31) 04/21/2024 Other Client reports she is to fern picker a 8 y/o cat at 1:00 [...] heart vs. transcatheter) to be determined. Patient's vending route driver has advised against exercise or activities that raise heart rate to avoid strain on the heart. Plan: - Advised patient to follow vending route driver's recommendations - Surgical consultation scheduled for next [...] 04/21/2025 02:00:00 PM, [address], [place], [address], Insurance Providers Payer Name Payer Address Payer Phone Subscriber Number Group Number Insured Name Patient Relationship to Insured Coverage Start Date Coverage End Date [facility] Medicare Replacement/ Advantage - Hmo [address] [place] [address] [id number] ADI VEGA Self - patient is the insured [place] [address] [address] [place] [address] [id number] ADI VEGA Self - patient is the insured Medical (General) History Medical History History ICD Code Problems: Chronic post-traumatic stress disorder Generalized anxiety disorder Mild recurrent major depression Panic attack hypertension Surgical History Surgery Date(Month/Year) Hysterectomy (57683) Laparoscopic sleeve gastrectomy (2459133 ) 2014 Oophorectomy (22842) 3 knee replacements Appendectomy (50553) 08/29/2014 pneumonia 01/06/24 open heart surgery 12/09/2024 pacemaker 12/2024 Hospitalization History Reason Date(Month/Year) open heart surgery 12/09/24 to 01/13/25
== END 2025-04-13 14:36 | disposition home or self-care (01) ==
PROVIDERS: PCP Internal Medicine; Visit Provider Internal Medicine Cardiovascular Disease
DX: I82.409 Acute embolism and thrombosis of unspecified deep veins of unspecified lower extremity (principal); M79.604 Pain in right leg; R60.9 Edema, unspecified
CPT/HCPCS: 93971

== ENCOUNTER 2025-04-24 15:15 | Outpatient (RCR) | payer OTHER, MEDICAID, SELFPAY ==
--- NOTE | 2025-04-02 15:49 | OTOPEVAL1 ---
Assessment and note entered by Khanh Lange, DALIA/Ramses, CHT Evaluation Information Assessment Status Evaluation Diagnosis Pain in unspecified wrist ICD-10 Condition Codes (OT) Pain in right wrist M25.531 Subjective Information Patient fell onto her right hand/wrist 02/26/25. X- rays are negative for fracture. She continues to experience pain. Notes pain with pushing herself up in bed, lifting heavy items, opening a jar, using the computer, sewing, and crafting. Reported Pain Level Pain Score 5: Self Report Assessment OT Clinical Summary Patient referred to OT with right wrist pain following a fall about a month ago. She appears to have a sprain vs tendonitis of the right wrist. Positive Jamel's. Issued ROM and educated on the use of heat/ice. Continued follow up indicated for use of modalities, manual therapy, progressive therapeutic exercise, and HEP progression to facilitate reduced pain and improved functional use of her right/dominant wrist. Plan of Care Interventions Therapeutic Exercise,Manual Therapy,Neuro Re- education,Therapeutic Activities,Hot Pack/Cold Pack,Ultrasound,Paraffin OT Services Indicated Yes Treatment Frequency and 2x/week for 8 visits Duration These treatments will address the objective and functional deficits as defined above. The patient will be advanced safely and appropriately in order for the patient to progress towards his/her prior level of function. Additional exercises will be introduced and as well as a comprehensive home exercise program upon discharge, if needed, ?to ensure carryover of functional gains achieved in the clinic. This treatment plan has been reviewed and agreement upon by the patient.
--- NOTE | 2025-04-02 15:49 | OPREHPOC ---
Outpatient Therapy Plan of Care This is a Multidisciplinary Plan of Care that may contain components documented by all disciplines (PT, OT, and ST.) OT Problem 1 OT Problem #1 Knowledge Deficit OT Goal 1 Goal / Goal Update 1. Patient to be independent with HEP. Target Visit 8 OT Problem 2 OT Problem #2 Pain OT Goal 1 Goal / Goal Update 1. Patient to report reduced right wrist pain to < 4/10 during ADLs. 2. Patient to report instances of 0/10 wrist pain. Target Visit 8 OT Problem 3 OT Problem #3 Impaired Strength OT Goal 1 Goal / Goal Update 1. Patient to increase (R) wrist strength for ADLs as measured by being able to progress to 2 lbs. for wrist strengthening in all planes. 1. Patient to increase (R) supervisor typesetting/pinch strength for ADLs as measured by being able to progress to yellow theraputty strengthening x5 minutes without pain. Target Visit 8
--- NOTE | 2025-04-03 15:53 | PTOPEVAL1 ---
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 Pt state she was in a coma for several days and hospitalized for over a month. Pt states she was then in a rehab hospital and did home health physical therapy but is still reporting frequent falls, decreased balance and drop foot. Pt currently uses a cane/walking stick for mobility. Pt has some stairs to enter and exit and has fear and difficulties performing them. Pt states currently she can only walk for a couple minutes at a time. Reported Pain Level Pain Score 5: Self Report Pain Score 5: Self Report Assessment PT Clinical Summary Patient presents to physical therapy with a primary issue of decreased balance balance and increased fall risk since having open heart surgery back in November. Patient demonstrates RLE weakness most notable in dorsiflexion, increased LE pain, decreased mobility, abnormal posture, gait deficit, and decreased flexibility that limit their ability to perform activities of daily living and functional movements. Patient will benefit from skilled physical therapy to address the above listed deficits and return to prior level of function. Home exercise program instructed and written handout provided, exercises tolerated well with no adverse effects to note post-session. Patient was educated on importance of adherence to home exercise program. Patient was also educated on anatomy, prognosis, home modalities, and plan of care. Plan of Care Interventions Gait Training,Hot Pack/Cold Pack,Manual Therapy, Mechanical Traction,Neuro Re-education,Patient/ Caregiver Education,Therapeutic Activities, Therapeutic Exercise,Self-Care/Home Management, Other PT Services Indicated Yes These treatments will address the objective and functional deficits as defined above. The patient will be advanced safely and appropriately in order for the patient to progress towards his/her prior level of function. Additional exercises will be introduced and as well as a comprehensive home exercise program upon discharge, if needed, ?to ensure carryover of functional gains achieved in the clinic. This treatment plan has been reviewed and agreement upon by the patient.
--- NOTE | 2025-04-03 15:56 | OPREHPOC ---
Outpatient Therapy Plan of Care This is a Multidisciplinary Plan of Care that may contain components documented by all disciplines (PT, OT, and ST.) PT Problem 1 PT Problem #1 Knowledge Deficit PT Goal 1 Goal / Goal Update 1. Patient to demonstrate independence with HEP for improved self-reliance of symptom management. Target Visit 4 Progress Met PT Problem 2 PT Problem #2 Impaired Functional Mobility PT Goal 1 Goal / Goal Update 1. Patient to improve distance ambulated during 2MWT from 150 to 300 to demonstrate an improvement in ADL endurance. 2. Patient to score >=40/56 on the Lopez Balance Scale to show improvements in balance and decreased level of assistance needed. 3. Patient will improve lower extremity strength and functional mobility by reducing Five Times Sit -to-Stand test time to =15 seconds to demonstrate reduced fall risk and improved transitional movements 4. Pt will start gait training with R AFO for improved gait mechanics and stability. Target Visit 10 PT Problem 3 PT Problem #3 Impaired Flexibility PT Goal 1 Goal / Goal Update 1. Patient to demonstrate an increase in R gastrocnemius length to improve flexibility required for gait Target Visit 10 OT Problem 1 OT Problem #1 Knowledge Deficit OT Goal 1 Goal / Goal Update 1. Patient to be independent with HEP. Target Visit 8 OT Problem 2 OT Problem #2 Pain OT Goal 1 Goal / Goal Update 1. Patient to report reduced right wrist pain to < 4/10 during ADLs. 2. Patient to report instances of 0/10 wrist pain. Target Visit 8 OT Problem 3 OT Problem #3 Impaired Strength OT Goal 1 Goal / Goal Update 1. Patient to increase (R) wrist strength for ADLs as measured by being able to progress to 2 lbs. for wrist strengthening in all planes. 1. Patient to increase (R) stage rigger/pinch strength for ADLs as measured by being able to progress to yellow theraputty strengthening x5 minutes without pain. Target Visit 8
--- NOTE | 2025-04-28 09:39 | PTOPDC ---
Assessment and note entered by Nehemias Burgess, PT Evaluation Information Assessment Status Discharge - Pt Not Present ICD-10 Condition Codes (PT) Repeated falls R29.6,Difficulty Walking R26.2, Abnormalities of gait and mobility R26.9,Weakness R53.1 Subjective Information Pt called and requested discharged for personal reasonings. Assessment PT Clinical Summary Pt requested to be discharged at this time. Physical therapy goals remain unmet. Plan of Care PT Services Indicated No
--- NOTE | 2025-04-28 14:19 | OTOPDC ---
Assessment and note entered by Khanh Lange, OTR/L, CHT OT D/C 04/28/25 OT Clinical Summary Patient attended the initial evaluation and 1 follow up appointment. She called to cancel all of her visits and requested to be discharged from therapy. The goals have not been met. D/C per patient request.
== END 2025-04-28 16:08 | disposition home or self-care (01) ==
LOC: ANHGOSHOT 15:15
PROVIDERS: PCP Internal Medicine; Visit Provider Clinical Nurse Specialist
DX: M25.531 Pain in right wrist (principal)
CPT/HCPCS: 97018; 97110; 97140; 97161; 97166; 97530